=== PATIENT | male | born 2000 | race Caucasian/White ===

== ENCOUNTER 2024-02-11 00:35 | Emergency (ER) | payer MEDICAID, SELFPAY ==
[2024-02-11 00:36] VITALS: BP 155/83; PULSE 87; RESP 16; TEMP 37; O2SAT 98; BMI 26.6
[2024-02-11 00:39] VITALS: BP 155/83; PULSE 68; RESP 16; TEMP 37; O2SAT 98
--- NOTE | 2024-02-11 01:02 | EDS_ITS ---
HPI History of Present Illness Chief Complaint: Nausea/Vomiting Detail of Chief Complaint: Nausea and vomiting for the past couple of days. Informant: patient Onset/Context/Timing Onset: Days Context: Sudden Onset Timing: Intermittent Quality: Nausea and vomiting and diarrhea Location: GI Current Severity: Several episodes since onset Worsened by: Nothing Relieved by: Nothing Associated Symptoms Associated Symptoms: No complaint of abdominal pain. No hematemesis. No black or maroon-colore Narrative Narrative: Patient is a 23-year-old male with end-stage renal disease on hemodialysis, Sunday, Sunday. Because of the holiday weekend he was scheduled to have dialysis on Sunday which he did Sunday and Sunday. He states he had similar presentation when he was first started on dialysis. He denies ill contacts. He denies fever, chills night sweats. He denies thirst, dry mouth orthostatic symptoms. He denies decreased urine output. He reports compliance with his medication. Is on multiple meds. 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 Prior similar symptoms: Yes Recent Illness/Hospitalization: No [facility] Medical History Arteriovenous fistula of right upper extremity Alports syndrome Home Medications ?Medication ?Instructions ?Recorded ?Last Taken ?Type carvedilol 12.5 mg tablet 12.5 mg PO BID 02/11/24 Unknown History cinacalcet 30 mg tablet 30 mg PO QPM 02/11/24 Unknown History lanthanum 1,000 mg oral powder 1,000 mg PO TID 02/11/24 Unknown History packet (Fosrenol) lanthanum 500 mg chewable tablet 500 mg PO TID 02/11/24 Unknown History losartan 100 mg tablet 100 mg PO DAILY 02/11/24 Unknown History ondansetron 4 mg disintegrating 4 mg PO Q8H PRN PRN Nausea #10 tabs 02/11/24 Un known Rx tablet sevelamer carbonate 800 mg tablet 800 mg PO TID 02/11/24 Unknown History vit B,C-folic ac 800 mcg-zinc 12.5 1 tab PO DAILY 02/11/24 Unknown History mg-selen-D3 2,000 unit-vit E tablet (RenaPlex-D) Allergy/AdvReac Type Severity Reaction Status Date / Time No Known Allergies Allergy Verified 02/11/24 00:36 Social History Smoking Status: Light Smoker (<10/day) ROS ROS ED Constitutional Constitutional ED: Denies chills, fever(s), subjective or sweats Eyes Eyes: Denies blurry vision or change in vision ENT ENT ED: Denies ear pain or rhinorrhea Cardiovascular Cardiovascular: Denies chest pain or palpitations Respiratory/Chest Respiratory/Chest: Denies cough, dyspnea or dyspnea on exertion Gastrointestinal Gastrointestinal: Reports diarrhea, nausea and vomiting; Denies abdominal pain, constipation or melena Genitourinary Genitourinary ED: Reports other Details: No decreased urine output ; Denies dysuria, hematuria or urinary frequency Musculoskeletal Musculoskeletal: Denies arthralgias or myalgias Integumentary Denies rash Neurologic Neurologic: Denies weakness Hematologic/Lymphatic Hematologic/Lymphatic: Reports systems reviewed and no addt'l complaints, except as documented EXAM Physical Exam Const Vital Signs: 02/11/24 00:36 02/11/24 00:39 02/11/24 01:12 Temperature 98.6 F 98.6 F Temperature Source Oral Oral Pulse Rate 87 68 Pulse Rate [Lying] 77 Pulse Rate [Sitting (for 1 minute prior to obtaining)] 84 Pulse Rate [Standing (for 1 minute prior to obtaining)] 92 Respiratory Rate 16 16 Blood Pressure 155/83 H 155/83 H Blood Pressure [Lying] 142/95 H Blood Pressure [Sitting (for 1 minute prior to obtaining)] 151/107 H Blood Pressure [Standing (for 1 minute prior to obtaining)] 134/97 H Blood Pressure Mean 107 107 Blood Pressure Mean [Lying] 110 Blood Pressure Mean [Sitting (for 1 minute prior to obtaining)] 121 Blood Pressure Mean [Standing (for 1 minute prior to obtaining)] 109 Pulse Ox 98 98 Oxygen Delivery Method Room Air Room Air 02/11/24 01:39 02/11/24 02:00 Temperature 98.7 F 98.7 F Temperature Source Oral Oral Pulse Rate 82 78 Pulse Rate [Lying] Pulse Rate [Sitting (for 1 minute prior to obtaining)] Pulse Rate [Standing (for 1 minute prior to obtaining)] Respiratory Rate 16 16 Blood Pressure 134/97 H 153/98 H Blood Pressure [Lying] Blood Pressure [Sitting (for 1 minute prior to obtaining)] Blood Pressure [Standing (for 1 minute prior to obtaining)] Blood Pressure Mean 109 116 Blood Pressure Mean [Lying] Blood Pressure Mean [Sitting (for 1 minute prior to obtaining)] Blood Pressure Mean [Standing (for 1 minute prior to obtaining)] Pulse Ox 97 96 Oxygen Delivery Method Room Air Room Air Positive well nourished and well developed Constitutional Narrative: Patient appears pale. Vital signs remarkable for elevated blood pressure. General Appearance ED: well developed, NAD and pallor HEENT Reports moist mucous membranes HEENT Narrative: Head is atraumatic normocephalic. Ears normal. Nares patent. Patient wears corrective lenses. Eyes PERRL and EOMs intact bilaterally General Eye ED: Negative for pale conjunctiva Neck no lymphadenopathy, supple and no JVD Chest Wall inspection of chest normal and palpation of chest normal Resp normal respiratory effort and clear to auscultation bilaterally Cardio regular rate, regular rhythm, S1 normal heart sound, S2 normal heart sound and no murmurs GI normal to inspection, nondistended, normoactive bowel sounds, non-tender, non- distended and no masses; Negative for hepatosplenomegaly Palpation: soft Extremity normal to inspection General Extremety ED: Negative for edema or tenderness General Extremity: Negative for edema Neuro oriented x3 and CN's II-XII intact bilaterally Sensorium / Orientation: alert Psych mental status grossly normal Skin no rashes or lesions noted, no wounds and skin turgor normal General Skin Exam: pallor MDM MDM MDM Narrative Medical decision making narrative: Will obtain BMP to assess potassium, BUN and creatinine and anion gap. CBC to assess H&H since he appears pale. Will obtain urine to assess for ketones and specific gravity. IV Hep-Lock was placed. If he is orthostatic or there is significant abnormalities of electrolytes will treat. Patient was medicated with Zofran for his nausea vomiting. Lab Data Attestation: I reviewed the patient's lab results. Lab results narrative: There are no labs for comparison at [facility]. 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 He recently relocated from [place]. He is mildly anemic with an H&H of 12.2 and 36.3. MCV is slightly elevated. BUN/creatinine are 36 and 7.58 respectively. Glucose is 144 with a normal CO2 anion gap. Accessed [employer]. Patient BUN/creatinine on August 05 was 36 and 7.52. Estimated GFR was 9. Labs: Laboratory Results - last 24 hr 02/11/24 02/11/24 00:40 01:10 WBC 9.2 RBC 3.73 L Hgb 12.2 L Hct 36.3 L MCV 97.3 H MCH 32.7 H MCHC 33.6 RDW Std Deviation 49.5 H RDW Coeff of Mono 13.9 Plt Count 271 MPV 9.7 Immature Gran % (Auto) 0.300 Neut % (Auto) 55.5 Lymph % (Auto) 24.2 [place] % (Auto) 5.2 Eos % (Auto) 14.6 H Baso % (Auto) 0.2 Absolute Neuts (auto) 5.1 Absolute Lymphs (auto) 2.22 Nucleated RBC % 0 Sodium 142 Potassium 4.5 Chloride 100 Carbon Dioxide 32.0 Anion Gap 9 BUN 36 H Creatinine 7.58 H* Estim Creat Clear Calc 15.52 Est GFR (MDRD) Af Amer 11 L Est GFR (MDRD) Non-Af 9 L BUN/Creatinine Ratio 4.7 L Glucose 144 H Calcium 9.2 Urine Color Yellow Urine Clarity Clear Urine pH 8.0 Ur Specific [place] 1.010 Urine Protein 100 H Urine Glucose (UA) 100 H Urine Ketones Negative Urine Occult Blood 150 H Urine Nitrite Negative Urine Bilirubin Negative Urine Urobilinogen Normal Ur Leukocyte Esterase Negative UA is unremarkable. Specifically it is 1.010. There is evidence of proteinuria and glucosuria. There is no ketones. There is occult blood. Treatment and Re-Evaluation :: Reviewed patient's blood work. He was informed of his blood results in comparison to August 05. They are essentially unchanged. He was at [place] at that time. Patient passed p.o. challenge. He was discharged prescription for Zofran. Discharge Plan Triage Chief Complaint: Nausea/Vomiting ED Provider: Serg Lyman Dx/Rx/DC Orders Clinical Impression: Nausea & vomiting, End-stage renal disease on hemodialysis, Elevated blood pressure reading with diagnosis of hypertension, Alport syndrome, Anemia due to chronic illness Instructions: ED Vomiting (Adult) Prescriptions: New ondansetron 4 mg tablet,disintegrating 4 mg PO Q8H PRN PRN (Reason: Nausea) Qty: 10 0RF No Action carvedilol 12.5 mg tablet 12.5 mg PO BID losartan 100 mg tablet 100 mg PO DAILY lanthanum 500 mg tablet,chewable 500 mg PO TID Fosrenol 1,000 mg powder in packet 1,000 mg PO TID RenaPlex-D 800 mcg-12.5 mg -2,000 unit tablet 1 tab PO DAILY cinacalcet 30 mg tablet 30 mg PO QPM sevelamer carbonate 800 mg tablet 800 mg PO TID Primary Care Provider: Care Physician,No Primary Referrals: Care Physician,No Primary [Primary Care Provider] - Doctor,Your [Non-Staff] - As Needed Print Language: Zimbabwean Disposition Disposition: Home, Self Care
[2024-02-11 01:04] LABS: Absolute Lymphocyte Count 2.22 X10^3/uL (0.83-4.51); Absolute Neutrophil Count 5.1 X10^3/uL (2.0-7.7); Basophil# 0.02 X10^3/uL; Basophil% 0.2 % (0-1); Eosinophil# 1.34 X10^3/uL; Eosinophils% 14.6 % (0-5); Hematocrit 36.3 % (40-54); Hemoglobin 12.2 g/dL (13.0-16.5); Lymphocyte # 2.22 X10^3/ul (0.83-4.51); Lymphocyte % 24.2 % (19-41); Mean Corp Hgb Conc 33.6 g/dL (32-36); Mean Corpuscular Hgb 32.7 pg (27.0-32.0); Mean Corpuscular Volume 97.3 fL (80-94); Mean Platelet Vol. 9.7 fl (6.2-12.0); Monocyte# 0.48 X10^3/uL; Monocyte% 5.2 % (0-10); NRBC Flagged by Analyzer 0 % (0-5); Neutrophil % 55.5 % (47-70); Platelet Count 271 K/mm3 (150-450); RBC Distribution Width CV 13.9 % (11.6-14.6); RBC Distribution Width SD 49.5 fl (35.1-43.9); Red Blood Count 3.73 M/mm3 (4.6-6.2); White Blood Count 9.2 K/mm3 (4.4-11.0)
[2024-02-11 01:12] VITALS: BP 134/97; BP 142/95; BP 151/107; PULSE 77; PULSE 84; PULSE 92
[2024-02-11 01:17] LABS: Anion Gap 9 (5-15); BUN 36 mg/dL (7-18); BUN/Creat Ratio 4.7 RATIO (10-20); Calcium,Total 9.2 mg/dL (8.5-10.1); Chloride 100 mmol/L (98-107); Creatinine, Serum 7.58 mg/dL (0.70-1.30); EST Glomerular Filtration Rate 9 mL/min (>60); Est Glom Filt Rate - Afr Amer 11 mL/min (>60); Estimated Creatinine Clearance 15.52 ml/min; Glucose 144 mg/dL (74-106); Potassium 4.5 mmol/L (3.5-5.1); Sodium Level 142 mmol/L (136-145)
[2024-02-11 01:24] LABS: Color, Urine Yellow (Yellow); Glucose, Dipstick 100 mg/dl (Normal); Ketone-Dipstick Negative (Negative); Leukocyte Esterase-Dipstick Negative /ul (Negative); Nitrite-Dipstick Negative (Negative); Occult Blood-Urine 150 /ul (Negative); Protein-Dipstick 100 mg/dl (Negative); Urine Bilirubin Dipstick Negative (Negative); Urine Clarity Clear (Clear); Urine Urobilinogen Normal (Normal)
[2024-02-11] MEDS: Ondansetron 4 MG/2 ML Vial IV (01:36)
[2024-02-11 01:39] VITALS: BP 134/97; PULSE 82; RESP 16; TEMP 37.1; O2SAT 97
[2024-02-11 02:00] VITALS: BP 153/98; PULSE 78; RESP 16; TEMP 37.1; O2SAT 96
[2024-02-11 02:08] VITALS: BP 153/98; PULSE 74; RESP 16; TEMP 36.9; O2SAT 97
== END 2024-02-11 02:17 | disposition home or self-care (01) ==
PROVIDERS: Emergency Provider Emergency Medicine; Visit Provider Emergency Medicine
DX: R11.2 Nausea with vomiting, unspecified (principal); I12.0 Hypertensive chronic kidney disease with stage 5 chronic kidney disease or end stage renal disease; N18.6 End stage renal disease; Z99.2 Dependence on renal dialysis; Q87.81 Alport syndrome; D63.1 Anemia in chronic kidney disease; F17.200 Nicotine dependence, unspecified, uncomplicated; Z79.899 Other long term (current) drug therapy
CPT/HCPCS: 80048; 81002; 85025; 96374; 96376; 99285; A4216; J2405

== ENCOUNTER 2024-10-03 16:39 | Emergency (ER) | payer BC, SELFPAY ==
[2024-10-03 16:39] VITALS: BP 155/102; PULSE 103; RESP 16; TEMP 36.9; O2SAT 97; BMI 25.9
--- NOTE | 2024-10-03 17:41 | CT_ITS ---
PROCEDURE: ABDOMEN/PELVIS WITHOUT CONT 10/03/2024 REASON FOR EXAM: LLQ ABD PAIN TECHNIQUE: ABDOMEN/PELVIS WITHOUT CONT Noncontrast technique limits evaluation of the abdominal and pelvic viscera. Coronal and Sagittal reconstruction series were provided. One or more dose reduction techniques were used (e.g., Automated exposure control, adjustment of the mA and/or kV according to patient size, use of iterative reconstruction technique). RADIATION DOSE SUMMARY: CTDlvol: 7.12 mGy DLP: 391.16 Dr. Kg mGycm FINDINGS: Small right pleural effusion. Normal noncontrast appearance of the liver and spleen. There is bilateral renal atrophy but without hydronephrosis. The gallbladder is unremarkable. Limited evaluation of the pancreas without contrast without adjacent fluid. No dilatation of the large bowel or the small bowel. The appendix is normal. There is no free-fluid or free air. There is no pelvic or retroperitoneal adenopathy. No visible bowel wall thickening. Specific attention is paid to the left lower quadrant. No positive findings of diverticulitis. No hernia. CT/Abdomen/Pelvis without Cont IMPRESSION: No acute abnormality. Reading [facility]
[2024-10-03] MEDS: Albuterol 2.5 MG/3 ML VIAL.NEB. INHALATION (17:47)
[2024-10-03 17:56] VITALS: RESP 16
--- NOTE | 2024-10-03 18:03 | EX.ED.DYSGE1 ---
HPI History of Present Illness Chief Complaint: Abd Pain Informant: patient Narrative Narrative: Patient is a 24-year-old male with history of Alport syndrome subsequent end-stage renal disease on hemodialysis. He is presenting with 1 week of cough, myalgia, cramping as well as of vomiting. Patient states his symptoms started on Sunday, 3 days ago. He notes he is also developed itching rash on his extremities. He states that he has not been feeling well and has not been able to tolerate dialysis recently states been shortening his sessions. He did receive a dose of Zofran prior to his dialysis today but could not make it through a full session. He notes he did have labs on Sunday and brought them with him. States today he did have an episode of vomiting before his dialysis. He notes that he has crampy abdominal pain especially in the LLQ. This week he has had worsening cough. States the cough is minimally productive today of pink phlegm. [facility] Medical History Dialysis patient Arteriovenous fistula of right upper extremity Alports syndrome Home Medications ?Medication ?Instructions ?Recorded ?Last Taken ?Type carvedilol 12.5 mg tablet 12.5 mg PO BID 02/11/24 Unknown History cinacalcet 30 mg tablet 30 mg PO QPM 02/11/24 Unknown History losartan 100 mg tablet 100 mg PO DAILY 02/11/24 Unknown History ondansetron 4 mg disintegrating 4 mg PO Q8H PRN PRN Nausea #10 tabs 02/11/24 Unknown Rx tablet sevelamer carbonate 800 mg tablet 800 mg PO TID 02/11/24 Unknown History vit B,C-folic ac 800 mcg-zinc 12.5 1 tab PO DAILY 02/11/24 Unknown History mg-selen-D3 2,000 unit-vit E tablet (RenaPlex-D) albuterol sulfate 90 mcg/actuation 1 - 2 puff inhalation Q4H PRN PRN 10/03/24 Unknown Rx aerosol inhaler (Ventolin HFA) Wheezing #1 inh azithromycin 250 mg tablet See Rx Instructions PO .COMPLEX #6 10/03/24 Unknown Rx (Zithromax Z-Selwyn) tabs lanthanum 1,000 mg chewable tablet 1,000 mg PO TID 10/03/24 Unknown History prednisone 20 mg tablet 40 mg (2 x 20 mg) PO DAILY #10 tabs 10/03/24 Unknown Rx Allergy/AdvReac Type Severity Reaction Status Date / Time No Known Allergies Allergy Verified 10/03/24 16:39 Social History Smoking Status: Former smoker ROS ROS ED Constitutional Constitutional ED: Denies chills or fever(s) Eyes Eyes: Denies change in vision ENT ENT ED: Denies rhinorrhea or sore throat Cardiovascular Cardiovascular: Denies chest pain Respiratory/Chest Respiratory/Chest: Reports cough, dyspnea and sputum Gastrointestinal Gastrointestinal: Reports abdominal pain, nausea and vomiting; Denies constipation or diarrhea Genitourinary Genitourinary ED: Denies dysuria or urinary frequency Musculoskeletal Musculoskeletal: Reports myalgias; Denies arthralgias Integumentary Denies rash Neurologic Neurologic: Denies weakness Psychiatric Psychiatric: Denies anxiety Hematologic/Lymphatic Hematologic/Lymphatic: Denies easy bleeding or easy bruising EXAM Physical Exam Const Vital Signs: 10/03/24 16:39 10/03/24 17:56 10/03/24 18:39 Temperature 98.4 F Temperature Source Oral Pulse Rate 103 H 101 H Respiratory Rate 16 16 18 Respiratory Pattern Normal Blood Pressure 155/102 H 158/108 H Blood Pressure Mean 119 124 Pulse Ox 97 95 Oxygen Delivery Method Room Air Room Air 10/03/24 20:00 10/03/24 21:55 Temperature 98.1 F Temperature Source Pulse Rate 102 H 98 Respiratory Rate 29 H 17 Respiratory Pattern Blood Pressure 145/103 H 159/97 H Blood Pressure Mean 117 117 Pulse Ox 95 99 Oxygen Delivery Method Room Air Positive well nourished and well developed General Appearance ED: well developed and NAD HEENT Reports moist mucous membranes Eyes PERRL Neck supple and no JVD Chest Wall inspection of chest normal and palpation of chest normal Resp normal respiratory effort Resp Narrative: Coarse bronchial cough on exam. No crackles appreciated. No wheezing or rales appreciated. Mildly coarse breath sounds present. Cardio regular rate, regular rhythm and no murmurs GI normal to inspection, nondistended, normoactive bowel sounds GI Narrative: Mildly tender in the left lower quadrant. No hernia palpated. Palpation: soft; Negative for guarding Back/Spine no CVA tenderness Extremity normal to inspection Extremity Narrative: AV fistula with palpable thrill in the right upper extremity General Extremety ED: Negative for edema General Extremity: Negative for edema Neuro oriented x3 Sensorium / Orientation: alert Psych mental status grossly normal Skin no wounds Skin Narrative: Mildly raised erythematous scattered rash on upper extremities associated excoriations/ulcerations consistent with scratching/picking. No surrounding cellulitic changes MDM MDM MDM Narrative Medical decision making narrative: Patient is evaluated for cramping, abdominal pain, vomiting and cough at dialysis. States has been going on for at least a week but states over the last month he has had to shorten multiple dialysis sessions because of the symptoms. Did have dialysis today but was unable to complete it. On exam he has very bronchial cough concerning for possible pneumonia versus bronchitis. Clinically does not appear fluid overloaded. Differential includes electrolyte abnormality, symptomatic anemia, infection, pneumonia, pleural effusion, diverticulitis, urinary tract infection, abdominal hernia, arrhythmia,Calciphylaxis and prurigo. Patient is given a breathing treatment emergency room with some symptom relief. He is given IV Zofran. Ice and complaint of headache and is given Tylenol. He is having meningeal signs. He does start to complain of some increased anxiety and headache and is given IV haloperidol. Afterwards patient becomes quite anxious and states he feels worse. He states he feels that he needs to leave. I discussed I am concerned he could be having extrapyramidal reaction associated with this and offer him IV Benadryl. He states he will take oral Benadryl but really wants to leave. Counseled that he can continue to take Benadryl at home every 6 hours for this continued symptom. He is ambulated in the emergency room does not desaturate. His workup is consistent with end-stage renal disease with associated anemia with a hemoglobin of 8.9. I suspect this is chronic. I do not have any labs this year to compare to. His phosphorus is mildly elevated but he does not have any elevation of his potassium and is not clinically fluid overloaded. Chest x-ray does show cardiomegaly and question pulmonary vascular congestion however there is also mild bilateral hazy perihilar airspace opacities and given his bronchial cough I suspect this is more viral versus bacterial. Will start him on steroids, azithromycin and given an inhaler. 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 CT of his abdomen and pelvis does not show any acute process of his abdomen. I question if he could have pulled a muscle or muscle strain associated with his coughing. He does state this is possible. Given return precautions to the ER to be develops a fever, his worsening respiratory symptoms or further concerns he is more than welcome and encouraged to return. Lab Data Attestation: I reviewed the patient's lab results. Labs: Laboratory Results - last 24 hr 10/03/24 10/03/24 17:55 18:12 WBC 7.9 RBC 2.86 L Hgb 8.9 L Hct 27.0 L MCV 94.4 H MCH 31.1 MCHC 33.0 RDW Std Deviation 50.8 H RDW Coeff of Mono 14.9 H Plt Count 198 MPV 9.5 Immature Gran % (Auto) 0.500 Neut % (Auto) 67.8 Lymph % (Auto) 20.7 [place] % (Auto) 5.2 Eos % (Auto) 5.5 H Baso % (Auto) 0.3 Absolute Neuts (auto) 5.4 Absolute Lymphs (auto) 1.64 Nucleated RBC % 0 PT 12.8 INR 0.9 APTT 30.9 Sodium 138 Potassium 4.2 Chloride 95 L Carbon Dioxide 31.5 Anion Gap 11 BUN 12 Creatinine 5.84 H Estim Creat Clear Calc 19.97 L Est GFR (MDRD) Non-Af 13 L BUN/Creatinine Ratio 2.0 L Glucose 92 Calcium 9.1 Phosphorus 5.1 H Albumin 3.9 Urine Color Yellow Urine Clarity Clear Urine pH 8.0 Ur Specific [place] 1.015 Urine Protein 100 H Urine Glucose (UA) 100 H Urine Ketones Negative Urine Occult Blood 50 H Urine Nitrite Negative Urine Bilirubin Negative Urine Urobilinogen Normal Ur Leukocyte Esterase Negative Urine RBC 0-5 SEEN Urine WBC 0 SEEN Ur Squamous Epith Cells 0 SEEN Urine Bacteria 0 SEEN Urine Mucus 0 SEEN Radiography Chest X-Ray - ED: 2 View, Read by ED Physician and Read by Radiologist Diagnostic Testing: Clinical Impression(s) from Imaging Studies Abdomen/Pelvis CT 10/03/24 17:41 IMPRESSION: No acute abnormality. Reading Location: [facility] Chest X-Ray 10/03/24 18:15 IMPRESSION: Cardiomegaly and vascular congestion. Mild bilateral hazy perihilar airspace opacities favored to reflect cardiogenic alveolar edema. Reading Location: [facility] Rhythm Strip Rhythm Strip: Sinus Rhythm Rate: 96 Ectopy: None EKG Initial EKG: Attestation: I personally reviewed and interpreted this EKG as follows: Interpretation: Sinus Rhythm Comments: Normal sinus rhythm at a rate of 96 bpm Normal axis Normal intervals Nonspecific T wave inversion in inferior leads as well as V6 Prior EKG tracings: not available for review Prior: No Prior Discharge Plan Triage Chief Complaint: Abd Pain ED Provider: Josette Herron Dx/Rx/DC Orders Clinical Impression: Bronchitis, Nausea and vomiting, Abdominal pain, LLQ Instructions: ED Bronchitis with Wheezing (Adult), ED Diet Vomiting Diarrhea, ED Abdominal Pain Unkn Cause Male... Prescriptions: New azithromycin [Zithromax Z-Selwyn] 250 mg tablet See Rx Instructions .ROUTE .COMPLEX Qty: 6 0RF Rx Instructions: For 250 mg dose pack: take 500 mg today (day 1), then 250 mg for 4 days (days 2-5) albuterol sulfate [Ventolin HFA] 90 mcg/actuation HFA aerosol inhaler 1 - 2 puff inhalation Q4H PRN PRN (Reason: Wheezing) Qty: 1 0RF prednisone 20 mg tablet 40 mg PO DAILY Qty: 10 0RF No Action carvedilol 12.5 mg tablet 12.5 mg PO BID losartan 100 mg tablet 100 mg PO DAILY RenaPlex-D 800 mcg-12.5 mg -2,000 unit tablet 1 tab PO DAILY cinacalcet 30 mg tablet 30 mg PO QPM sevelamer carbonate 800 mg tablet 800 mg PO TID ondansetron 4 mg tablet,disintegrating 4 mg PO Q8H PRN PRN (Reason: Nausea) Qty: 10 0RF lanthanum 1,000 mg tablet,chewable 1,000 mg PO TID Primary Care Provider: Care Physician,No Primary Referrals: Windy Higuera MD [Med Staff - Consulting] - Care Physician,No Primary [Primary Care Provider] - Activity Restrictions/Additional Instructions: Please follow-up with your primary care doctor as well as your sock lining examiner. Your exam today was consistent with bronchitis. You been put on steroids, antibiotics and given an inhaler prescription for this. Your CT of the abdomen did not show any acute abnormality to explain your pain. Print Language: Sinhala Disposition Disposition: Home, Self Care Discharge Date/Time: 10/03/24 21:56
[2024-10-03 18:08] LABS: Hematocrit 27.0 % (40-54); Hemoglobin 8.9 g/dL (13.0-16.5); Immature Granulocytes Count 0.040 X10^3/uL (0.0-0.0); Mean Corp Hgb Conc 33.0 g/dL (32-36); Mean Corpuscular Volume 94.4 fL (80-94); Mean Platelet Vol. 9.5 fl (6.2-12.0); NRBC Flagged by Analyzer 0 % (0-5); Platelet Count 198 K/mm3 (150-450); RBC Distribution Width CV 14.9 % (11.6-14.6); RBC Distribution Width SD 50.8 fl (35.1-43.9); Red Blood Count 2.86 M/mm3 (4.6-6.2); White Blood Count 7.9 K/mm3 (4.4-11.0)
--- NOTE | 2024-10-03 18:15 | RAD_ITS ---
PROCEDURE: CHEST PA AND LATERAL 10/03/2024 REASON FOR EXAM: COUGH TECHNIQUE: CHEST PA AND LATERAL COMPARISON: None. FINDINGS: Lungs/Pleura: Mild hazy opacities in the right greater than left perihilar regions may represent pneumonia, versus alveolar edema in the appropriate clinical setting. No sizable pleural effusion. No pneumothorax. Heart/Mediastinum: Mild cardiomegaly and central vascular congestion. Bones/Soft tissues: Within normal limits. RAD/Chest PA and Lateral IMPRESSION: Cardiomegaly and vascular congestion. Mild bilateral hazy perihilar airspace o pacities favored to reflect cardiogenic alveolar edema. Reading Location: [id number]
[2024-10-03 18:16] LABS: Prothrombin Time (Protime)PT. 12.8 SECONDS (11.7-14.9)
[2024-10-03 18:17] LABS: Partial Thromboplast Time 30.9 Seconds (24.1-36.2)
[2024-10-03 18:17] LABS: Mucous, Urine 0 SEEN /hpf (<or=2+); Squamous Epithelial Cells - UA 0 SEEN /hpf (0-5)
[2024-10-03 18:20] LABS: Color, Urine Yellow (Yellow); Glucose, Dipstick 100 mg/dl (Normal); Ketone-Dipstick Negative (Negative); Leukocyte Esterase-Dipstick Negative /ul (Negative); Nitrite-Dipstick Negative (Negative); Occult Blood-Urine 50 /ul (Negative); Protein-Dipstick 100 mg/dl (Negative); Specific Gravity, Urine 1.015 (1.002-1.030); Urine Bilirubin Dipstick Negative (Negative)
[2024-10-03 18:27] LABS: Red Blood Cells-Urine 0-5 SEEN /hpf (0-5)
[2024-10-03 18:39] VITALS: BP 158/108; PULSE 101; RESP 18; O2SAT 95
[2024-10-03 18:57] LABS: Albumin, Serum 3.9 g/dL (3.5-5.0); Anion Gap 11 (5-15); BUN 12 mg/dL (4-19); BUN/Creat Ratio 2.0 RATIO (10-20); Calcium,Total 9.1 mg/dL (7.6-11.0); Carbon Dioxide 31.5 mmol/L (21.0-32.0); Chloride 95 mmol/L (98-108); Estimated Creatinine Clearance 19.97 ml/min (50-250); Glucose 92 mg/dL (70-99); Potassium 4.2 mmol/L (3.3-5.1)
[2024-10-03 20:00] VITALS: BP 145/103; PULSE 102; RESP 29; O2SAT 95
[2024-10-03 21:08] VITALS: O2SAT 95
--- NOTE | 2024-10-03 21:43 | CM.ED ---
Social work Reason for referral: no PCP Referral source: case find SW identified patient's lack of PCP and need for resources. SW entered patient's room, introducing self and role at [facility]. Patient confirmed lacking a PCP and accepted resources of [facility] Provider Directory and Candelaria Roberto information. Patient denied further need for resources at this time. Hanh Payne, HUMAN RESOURCES COMPENSATION ANALYST, FACILITIES SPECIALIST
[2024-10-03 21:55] VITALS: BP 159/97; PULSE 98; RESP 17; TEMP 36.7; O2SAT 99
== END 2024-10-03 21:56 | disposition home or self-care (01) ==
PROVIDERS: Emergency Provider Emergency Medicine; Visit Provider Emergency Medicine
DX: J40 Bronchitis, not specified as acute or chronic (principal); N18.6 End stage renal disease; R10.32 Left lower quadrant pain; R11.2 Nausea with vomiting, unspecified; F41.9 Anxiety disorder, unspecified; Z99.2 Dependence on renal dialysis; Z79.899 Other long term (current) drug therapy; Z87.891 Personal history of nicotine dependence
CPT/HCPCS: 71046; 74176; 80069; 81001; 85025; 85610; 85730; 87631; 93005; 94640; 96374; 96375; 96376; 99282; A4216; J2405

== ENCOUNTER 2024-10-13 08:14 | Observation (INO) | payer BC, SELFPAY ==
[2024-10-13] VITALS (19 sets, daily range): BP systolic 145–200; BP diastolic 89–135; PULSE 22–113; RESP 14–117; TEMP 36.4–37.2; O2SAT 91–100; BMI 25.4; BMI 25.8; BMI 25.7; BMI 25.3
--- NOTE | 2024-10-13 08:20 | ED.VIS.DYS ---
HPI History of Present Illness Chief Complaint: Shortness of Breath Informant: patient Onset/Context/Timing Onset: Days (10) Context: gradual Timing: Continuous Quality: Positive for Dyspnea on exertion Worsened by: Exertion Relieved by: Rest Associated Symptoms cough; Negative for rhinorrhea, post nasal drip, ear pain, fever, sore throat, chills, clear sputum, white sputum, yellow sputum or green sputum Chest Pain: Positive for Sharp (Left lower parasternal area) Narrative Narrative: Patient presents with shortness of breath that has been constant for the past 10 days. Patient was seen here at that time and was diagnosed with pneumonia. Patient states she was put on a course of steroids, and inhaler, and another medication. Patient states he completed his course of steroids. Patient also states he finished the other medication. Patient admits to a cough. Patient states he is coughing up some orange sputum. Patient denies any fevers or chills. Patient admits to some pain over his left parasternal area. Patient describes it as sharp. Patient denies any nausea or vomiting. Patient denies any fevers or chills. Patient states he does dialysis on Sunday, Sunday, and Sunday. Patient did not go to dialysis today because he felt more short of breath. Patient states his breathing is worse with any exertion. Patient states he has difficulty going up steps. Patient has not taken any of his medications today. Patient states he normally takes his blood pressure medicines prior to going to dialysis. PE Risk Factors: Negative for Cancer, OCP + Smoking + > 35, Prior DVT or PE, Recent immobilization, Recent surgery or Recent travel [facility] Medical History (Updated 10/13/24 @ 12:[address] Arley Kirby, DO) Hypertension Dialysis patient Arteriovenous fistula of right upper extremity Alports syndrome Home Medications ?Medication ?Instructions ?Recorded ?Last Taken ?Type carvedilol 12.5 mg tablet 12.5 mg PO BID 02/11/24 10/12/24 History cinacalcet 30 mg tablet 30 mg PO QPM 02/11/24 Unknown History losartan 100 mg tablet 100 mg PO DAILY 02/11/24 10/12/24 History sevelamer carbonate 800 mg tablet 800 mg PO TID 02/11/24 10/12/24 History vit B,C-folic ac 800 mcg-zinc 12.5 1 tab PO DAILY 02/11/24 10/12/24 History mg-selen-D3 2,000 unit-vit E tablet (RenaPlex-D) albuterol sulfate 90 mcg/actuation 1 - 2 puff inhalation Q4H PRN PRN 10/03/24 Unknown Rx aerosol inhaler (Ventolin HFA) Wheezing #1 inh lanthanum 1,000 mg chewable tablet 1,000 mg PO TID 10/03/24 10/12/24 History Allergy/AdvReac Type Severity Reaction Status Date / Time No Known Allergies Allergy Verified 10/13/24 08:14 Social History Smoking Status: Former smoker ROS ROS ED Constitutional Constitutional ED: Denies chills or fever(s) Eyes Eyes: Denies blurry vision or change in vision ENT ENT ED: Denies rhinorrhea or sore throat Cardiovascular Cardiovascular: Reports chest pain; Denies palpitations Respiratory/Chest Respiratory/Chest: Reports cough and dyspnea Gastrointestinal Gastrointestinal: Reports abdominal pain, nausea and vomiting Genitourinary Genitourinary ED: Denies dysuria or hematuria Musculoskeletal Musculoskeletal: Denies back pain or neck pain Integumentary Denies abscess or rash Neurologic Neurologic: Denies headache(s) or weakness Allergic/Immunologic Allergic/Immunologic ED: Denies mouth swelling or urticaria EXAM Physical Exam Const Vital Signs: 10/13/24 08:14 10/13/24 08:16 10/13/24 08:32 Temperature 98.7 F 98.7 F Temperature Source Oral Temporal Pulse Rate 22 L 110 H Respiratory Rate 117 H 16 Respiratory Effort Short of Breath Respiratory Depth Shallow Blood Pressure 200/134 H 191/131 H Blood Pressure Mean 156 151 Pulse Ox 95 98 Oxygen Delivery Method Room Air Room Air Room Air 10/13/24 09:16 10/13/24 10:14 10/13/24 12:00 Temperature 98.4 F Temperature Source Oral Pulse Rate 98 100 101 H Respiratory Rate 18 23 H 21 H Respiratory Effort Respiratory Depth Blood Pressure 166/89 H 161/122 H 166/111 H Blood Pressure Mean 114 135 129 Pulse Ox 96 93 100 Oxygen Delivery Method Room Air Room Air Room Air Positive well nourished and well developed General Appearance ED: well developed and NAD HEENT Reports moist mucous membranes atraumatic Neck supple and no JVD Resp normal respiratory effort and clear to auscultation bilaterally Cardio regular rate and regular rhythm GI non-distended Palpation: soft and tender epigastric and LUQ Neuro oriented x3, CN's II-XII intact bilaterally and no sensory deficits noted Niyah Coma Scale: document GCS findings Spontaneous Obeys Commands Oriented 15 Sensorium / Orientation: alert Motor Exam: strength 5/5 throughout Psych mental status grossly normal MDM MDM MDM Narrative Medical decision making narrative: Differential diagnosis includes congestive heart failure, pneumonia, bronchitis, acute on chronic kidney disease, electrolyte abnormality, hypertensive urgency, and anxiety. EKG will be obtained to assess for cardiac dysrhythmia and cardiac ischemia. Chest x-ray will be obtained to assess for pneumonia and bronchitis. CBC will be obtained to assess for leukocytosis and anemia. Basic metabolic profile will be obtained to assess for electrolyte abnormality and renal function. BNP will be obtained to assess for congestive heart failure. History & Record Review Additional record(s) reviewed:: Prior ED visit and Prior labs Lab Data Attestation: I reviewed the patient's lab results. Lab results narrative: CBC was reviewed. There is a mild anemia with a hemoglobin of 5.4 and hematocrit of 29.2. The remainder is within normal limits. Basic metabolic profile was reviewed. BUN was 38 and creatinine was 12.5. These are improved from previous result. CO2 was normal at 24.4 but anion gap was slightly elevated at 19. [place] [address]. Labs: Laboratory Results - last 24 hr 10/13/24 08:50 WBC 8.4 RBC 2.94 L Hgb 9.4 L Hct 29.2 L MCV 99.3 H MCH 32.0 MCHC 32.2 RDW Std Deviation 58.7 H RDW Coeff of Mono 16.3 H Plt Count 252 MPV 9.3 Immature Gran % (Auto) 0.400 Neut % (Auto) 67.9 Lymph % (Auto) 20.8 Bremer % (Auto) 5.8 Eos % (Auto) 4.9 Baso % (Auto) 0.2 Absolute Neuts (auto) 5.7 Absolute Lymphs (auto) 1.75 Nucleated RBC % 0 Sodium 140 Potassium 5.0 Chloride 96 L Carbon Dioxide 24.4 Anion Gap 19 H BUN 38 H Creatinine 12.50 H* Estim Creat Clear Calc 9.33 L* Est GFR (MDRD) Non-Af 5 L BUN/Creatinine Ratio 3.0 L Glucose 98 Calcium 9.9 [place] [address] H Radiography Chest X-Ray - ED: 2 View, Read by ED Physician, Read by Radiologist, Cardiomegaly (Borderline) and - (Mild vascular congestion) Diagnostic Testing: Clinical Impression(s) from Imaging Studies Chest X-Ray 10/13/24 08:32 IMPRESSION: Borderline cardiomegaly. Mild degree of vascular congestion and CHF. Reading Location: [id number] PA and lateral chest x-ray was obtained. There are 2 views. On my independent interpretation, lung olmedo show mild vascular congestion. There is borderline cardiomegaly. Bony thorax is normal. There is no acute process noted. Radiologist also interpreted the x-ray and agrees. EKG Initial EKG: Attestation: I personally reviewed and interpreted this EKG as follows: Interpretation: Sinus Rhythm (99) and No Acute Injury Pattern Comments: EKG was obtained. On my independent interpretation, it showed a normal sinus rhythm with a rate of 99. HI interval, QRS interval, and QTc intervals were all normal. Melbeta was normal. There are no acute ST or T wave changes. Prior EKG tracings: available for review Prior: Unchanged (10/03/2024) Management Discussion w/another healthcare provider: Hospitalist (Dr. Birmingham) Treatment and Re-Evaluation :: Patient was given a dose of labetalol here. Patient was also given his morning dose of losartan. Patient's blood pressure improved to 161/122. Patient was resting comfortably. Patient was ambulated in the emergency department on room air. Patient's oxygen saturation dropped to 85% with ambulation. Patient was advised of his findings. Case was discussed with guardian family member who is covering for Dr. Higuera. He contacted the nephrology nurse practitioner who was in to evaluate the patient. She states that if the patient were to be admitted, dialysis would be able to be done today. But if the patient were to be discharged, he would have his dialysis done at the dialysis center tomorrow. With the patient's oxygen saturation dropping with ambulation, I did recommend admission to the hospital. Case was discussed with the hospitalist. She will admit the patient for observation. Patient is agreeable with this. Patient understood and was agreeable with the plan. All questions were answered. Discharge Plan Dx/Rx/DC Orders Clinical Impression: Acute kidney injury superimposed on chronic kidney disease, Hypertension, Hypoxia Disposition Disposition: Acute Care Hospital [facility], [place]
--- NOTE | 2024-10-13 08:32 | RAD_ITS ---
PROCEDURE: CHEST PA AND LATERAL 10/13/2024 REASON FOR EXAM: DYSPNEA TECHNIQUE: CHEST PA AND LATERAL COMPARISON: Prior study dated October 03, 2024. FINDINGS: Hardware: EKG electrodes are seen. Heart: Borderline cardiomegaly. Mediastinum: Unremarkable Lungs: Mild degree of vascular congestion and CHF. Bones: Unremarkable RAD/Chest PA and Lateral IMPRESSION: Borderline cardiomegaly. Mild degree of vascular congestion and CHF. Reading Location: [id number]
--- NOTE | 2024-10-13 08:32 | EKG12_ITS ---
Test Reason : SOB Blood Pressure : */* mmHG Vent. Rate : 99 BPM Atrial Rate : 99 BPM P-R Int : 142 ms QRS Dur : 82 ms QT Int : 360 ms P-R-T Axes : 55 67 96 degrees QTcB Int : 462 ms Normal sinus rhythm Normal ECG Confirmed by ROD PEREIRA, BRIAN ([id number]), dictionary editor TERRA HOOKS ([id number]) on 10/14/2024 1:00:49 PM Referred By: Confirmed By: BRIAN VELASCO MD
[2024-10-13 08:58] LABS: Hematocrit 29.2 % (40-54); Hemoglobin 9.4 g/dL (13.0-16.5); Immature Granulocytes Count 0.030 X10^3/uL (0.0-0.0); Mean Corp Hgb Conc 32.2 g/dL (32-36); Mean Corpuscular Volume 99.3 fL (80-94); Mean Platelet Vol. 9.3 fl (6.2-12.0); NRBC Flagged by Analyzer 0 % (0-5); Platelet Count 252 K/mm3 (150-450); RBC Distribution Width CV 16.3 % (11.6-14.6); RBC Distribution Width SD 58.7 fl (35.1-43.9); Red Blood Count 2.94 M/mm3 (4.6-6.2); White Blood Count 8.4 K/mm3 (4.4-11.0)
[2024-10-13 09:55] LABS: Anion Gap 19 (5-15); BUN 38 mg/dL (4-19); BUN/Creat Ratio 3.0 RATIO (10-20); Calcium,Total 9.9 mg/dL (7.6-11.0); Carbon Dioxide 24.4 mmol/L (21.0-32.0); Chloride 96 mmol/L (98-108); Estimated Creatinine Clearance 9.33 ml/min (50-250); Glucose 98 mg/dL (70-99); Potassium 5.0 mmol/L (3.3-5.1)
[2024-10-13 09:58] LABS: Pro- Brain NATRIURETIC PEPTIDE 44433 pg/mL (<=450)
[2024-10-13] MEDS: hydrOXYzine PAM 25 MG Capsule PO (10:40)
--- NOTE | 2024-10-13 12:20 | PCM.HP.STD ---
HPI - General General Date of Admission: 10/13/24 Date of Service: 10/13/24 Chief Complaint: Shortness of breath HPI Narrative OMA DOYLE, is a 24 M who presented to the emergency department at [facility] on 10/05/2024 complaining of shortness of breath. Patient has history of Alport syndrome and has end-stage renal disease currently on dialysis. He started dialysis about 2 years ago and up until last couple months he was tolerating dialysis well. He states currently he is getting nauseated at the end of his sessions. His last dialysis was Sunday and he ran all the last 10 minutes. He was seen in the emergency department on 10/03/2024 and diagnosed with bronchitis. At that time he was given a Z-Selwyn, albuterol, and a prednisone taper. He states he still has a cough. He said no fever or chills. His white count and differential was normal been as it is now. He states that his blood pressure is always fairly elevated despite compliance with his home blood pressure medicines. He states he is symptomatic if his blood pressure starts to drop below 130 systolic. He follows with Dr. Higuera as an outpatient. Vital signs on presentation showed temperature 98.7, heart rate 110, blood pressure 191/131, respiratory rate 16-23 and pulse ox was 93 to 98% on room air at rest however he desatted with exertion into the low 80s. Given that exertional desat admission was felt to be needed as he was not able to have outpatient dialysis today and would have to defer to tomorrow. CBC shows a chronic stable anemia but was otherwise unremarkable with a normal white count and differential. His chemistry panel showed markedly elevated anion gap at 19 BUN of 38 and a serum creatinine of 12.50. BNP was obtained and was 44,433. CXR is consistent with volume overload. Case was discussed by ED with Nephrology and the plan is for urgent HD today. [facility] Medical History (Updated 10/13/24 @ 16:[address] Bing Birmingham DO) Chronic anemia AV fistula Kidney disease Former smoker Hypertension Dialysis patient Arteriovenous fistula of right upper extremity Alports syndrome Home Medications ?Medication ?Instructions ?Recorded ?Last Taken ?Type carvedilol 12.5 mg tablet 12.5 mg PO BID 02/11/24 10/12/24 History cinacalcet 30 mg tablet 30 mg PO QPM 02/11/24 Unknown History losartan 100 mg tablet 100 mg PO DAILY 02/11/24 10/12/24 History sevelamer carbonate 800 mg tablet 800 mg PO TID 02/11/24 10/12/24 History vit B,C-folic ac 800 mcg-zinc 12.5 1 tab PO DAILY 02/11/24 10/12/24 History mg-selen-D3 2,000 unit-vit E tablet (RenaPlex-D) albuterol sulfate 90 mcg/actuation 1 - 2 puff inhalation Q4H PRN PRN 10/03/24 Unknown Rx aerosol inhaler (Ventolin HFA) Wheezing #1 inh lanthanum 1,000 mg chewable tablet 1,000 mg PO TID 10/03/24 10/12/24 History Allergy/AdvReac Type Severity Reaction Status Date / Time No Known Allergies Allergy Verified 10/13/24 08:14 Family History no significant family his no significant family history Surgical History no surgical history no surgical history Social History (Updated 10/13/24 @ 16:[address] Bing Birmingham, DO) household members: family housing: house Smoking Status: Former smoker alcohol intake: never substance use type: does not use ROS Constitutional Constitutional: Denies anorexia, change in weight, chills, fatigue, fever(s), malaise, night sweats, weakness or other Eyes Eyes: Denies blurry vision, change in eye color, change in vision, discharge from eye(s), double vision, erythema, eye pain, loss of vision or other ENT HEENT: Denies abnormal hearing, dysphagia, ear pain, epistaxis, headache(s), hearing loss, nasal congestion, nasal discharge, post nasal drip, sinus pressure, sore throat or other Cardiovascular Cardiovascular: Denies chest pain, claudication, dyspnea on exertion, edema, lightheadedness, orthopnea, palpitations, paroxysmal nocturnal dyspnea, rapid heart rate, syncope or other Respiratory/Chest Respiratory/Chest: Reports cough, dyspnea, productive cough, shortness of breath at rest and shortness of breath with exertion Gastrointestinal Gastrointestinal: Reports nausea; Denies abdominal pain, coffee ground emesis, constipation, diarrhea, dyspepsia, hematemesis, hematochezia, loose stools, melena, vomiting or other Genitourinary Genitourinary: Denies burning urination, difficulty urinating, dysuria, hematuria, nocturia, urinary frequency, urinary hesitancy, urinary incontinence, urinary urgency or other Musculoskeletal Musculoskeletal: Denies arthralgias, back pain, joint pain, joint stiffness, joint swelling, myalgias, neck pain or other Neurologic Neurologic: Denies abnormal gait, abnormal speech, confusion, disequilibrium, dizziness, focal weakness, headache(s), numbness, paresthesias, seizure-like activity, seizures, syncope, tingling, tremor(s) or other Psychiatric Psychiatric: Denies anxiety, depression, homicidal ideation, suicidal ideation or other Endocrine Endocrinology: Denies change in body appearance, cold intolerance, excessive sweating, heat intolerance, polydipsia, polyuria or other Hematologic/Lymphatic Hematologic/Lymphatic: Reports anemia; Denies easy bleeding, easy bruising, lymphadenopathy or other Allergic/Immunologic Allergic/Immunologic: Denies rhinitis, hives, eczemia, asthma or other Vital Signs Vital Signs Vital Signs: 10/13/24 08:14 10/13/24 08:16 10/13/24 08:32 Temperature 98.7 F 98.7 F Temperature Source Oral Temporal Pulse Rate 22 L 110 H Respiratory Rate 117 H 16 Respiratory Effort Short of Breath Respiratory Depth Shallow Blood Pressure 200/134 H 191/131 H Blood Pressure Mean 156 151 Pulse Ox 95 98 Oxygen Delivery Method Room Air Room Air Room Air 10/13/24 09:16 10/13/24 10:14 10/13/24 12:00 Temperature 98.4 F Temperature Source Oral Pulse Rate 98 100 101 H Respiratory Rate 18 23 H 21 H Respiratory Effort Respiratory Depth Blood Pressure 166/89 H 161/122 H 166/111 H Blood Pressure Mean 114 135 129 Pulse Ox 96 93 100 Oxygen Delivery Method Room Air Room Air Room Air Weight Weight: 80.5 kg Body Mass Index (BMI) 25.4 Physical Exam Const alert, oriented x3, no apparent distress, average body habitus and well nourished; Negative for healthy appearing Constitutional Narrative: Young, white male, sitting up in bed on dialysis, dialysis nurse at bedside, floor nurse at bedside, patient appears comfortable currently, does not appear toxic General Appearance: cooperative HEENT normocephalic, head/scalp atraumatic and moist oral mucous membranes HEENT Narrative: Mallampati 2, no thrush Eyes Eyes Narrative: Mildly pale conjunctiva bilaterally, no scleral icterus Neck supple Neck Narrative: Trachea midline Resp no retractions, no use of accessory muscles and No clear to auscultation bilaterally Resp Narrative: Mild tachypnea, bibasilar crackles Auscultation: crackles; Negative for rhonchi or wheezes Cardio regular rhythm, S1 normal heart sound, S2 normal heart sound, no murmurs, no rub and no clicks; Negative for no gallops Cardio Narrative: Tachycardia, S4 gallop GI normal to inspection, nondistended, normoactive bowel sounds, soft to palpation and non-tender Extremity no clubbing, cyanosis or edema Extremity Narrative: Fistula currently accessed on HD Neuro oriented x3, moves all extremities and no focal motor deficits Speech: speech normal Psych Psych Narrative: Affect is slightly flat but appropriate for current condition, patient makes good eye contact and interacts appropriately Results Lab / Micro Data 10/13/24 08:50 10/13/24 08:50 Labs: Laboratory Results - last 24 hr 10/13/24 08:50: WBC 8.4, RBC 2.94 L, Hgb 9.4 L, Hct 29.2 L, MCV 99.3 H, MCH 32.0, MCHC 32.2, RDW Std Deviation 58.7 H, RDW Coeff of Mono 16.3 H, Plt Count 252, MPV 9.3, Immature Gran % (Auto) 0.400, Neut % (Auto) 67.9, Lymph % (Auto) 20.8, Taliaferro % (Auto) 5.8, Eos % (Auto) 4.9, Baso % (Auto) 0.2, Absolute Neuts (auto) 5.7, Absolute Lymphs (auto) 1.75, Nucleated RBC % 0, Sodium 140, Potassium 5.0, Chloride 96 L, Carbon Dioxide 24.4, Anion Gap 19 H, BUN 38 H, Creatinine 12.50 H*, Estim Creat Clear Calc 9.33 L*, Est GFR (MDRD) Non-Af 5 L, BUN/Creatinine Ratio 3.0 L, Glucose 98, Calcium 9.9, [place] [address] H Imaging Radiology Impression Chest X-Ray 10/13/24 08:32 IMPRESSION: Borderline cardiomegaly. Mild degree of vascular congestion and CHF. Reading Location: [id number] Assessment & Plan Assessment/Plan (1) Hypoxia: (2) Elevated brain natriuretic peptide (BNP) level: PLAN: Plan Shortness of breath/exertional hypoxia secondary to acute decompensated heart failure - Marked BNP elevation at 44,433 - Urgent dialysis for management of volume - Check echocardiogram - Currently requiring 2 L and patient is not oxygen dependent at home -Will need ambulatory pulse ox prior to discharge - Wean oxygen as able - Suspect markedly elevated blood pressures may play into this as well - Patient was only about 1.2 to 1.3 kg over his dry weight per discussion with nephrology nurse - Nephrology consult Elevated BNP - Secondary to volume overload - Check echocardiogram - Dialysis for fluid removal - Patient with also decreased BNP clearance due to abnormal renal function Elevated anion gap - Secondary to renal dysfunction - Should improve with dialysis - Bicarb is currently within normal range Cough -Etiology unclear -initially dx with bronchitis and was given Uncontrolled HTN - Continue but increase Coreg to 25 mg BID from 12.5 BID - Continue Losartan 100 mg - PRN Hydralazine for SBP >160 Chronic anemia secondary to chronic renal disease - Stable and at baseline ESRD 2/2 Alports Syndrome - HD per nephro - continue cinacalcet - continue Lanthanum - Continue Sevelamer H/O Tobacco abuse -continue cessation DVT prophylaxis -heparin 5000 mg BID Code Status -Full Code Charges/Coding Visit Charges Inpatient E&M: 02703 Init Hosp L2
--- NOTE | 2024-10-13 13:49 | ECHOD_ITS ---
Reason For Study Reason For Study: Dyspnea/SOB Procedure This was a 2D Doppler, Color Flow transthoracic echocardiogram. Myocardial strain analysis was performed in this exam to aid in the assessment of cardiac function. Exam performed portable in patient room. Left Ventricle Normal LV size. Mild concentric left ventricular hypertrophy. The global longitudinal strain = -15.7% (abnormal). The left ventricular ejection fraction is 50 %. Right Ventricle Normal RV size. Normal systolic function. Atria Normal left atrium. Normal right atrium. Mitral Valve Normal mitral valve. Mild (1+) eccentric mitral valve insufficiency. Tricuspid Valve Normal tricuspid valve. Mild (1+) tricuspid valve insufficiency. Pulmonary artery systolic pressure is 48 mmHg. Aortic Valve Trisinus/trileaflet aortic valve. Pulmonic Valve Normal pulmonic valve. Great Vessels Normal aortic root. The pulmonary artery is normal size. Inferior vena cava collapse with respiration. Pericardium/Pleural No pericardial effusion. MMode/2D Measurements & Calculations LVIDd: 5.0 cm IVSd: 1.3 cm Ao root diam: 3.2 cm LVIDs: 3.7 cm LVPWd: 1.3 cm RVDd: 4.1 cm FS: 25.9 % LAV(MOD-bp): 67.1 ml LVAd ap4: 38.3 cm2 SV(MOD-sp4): 68.9 ml LAV(MOD-bp) Indexed: 33.6 ml/m2 LVLd ap4: 8.7 cm SI(MOD-sp4): 34.5 ml/m2 LAV(MOD-sp2): 65.7 ml EDV(MOD-sp4): 137.0 ml LAV(MOD-sp4): 58.5 ml EDV(sp4-el): 143.8 ml LVAs ap4: 24.3 cm2 LVLs ap4: 7.2 cm ESV(MOD-sp4): 68.1 ml ESV(sp4-el): 69.4 ml EF(MOD-sp4): 50.3 % EF(sp4-el): 51.8 % SV(sp4-el): 74.5 ml LA A4 area: 20.8 cm2 LA dimension(2D): 3.9 cm RA A4 area: 16.1 cm2 TAPSE: 2.2 cm Time Measurements MV dec time: 0.17 sec Doppler Measurements & Calculations MV E max randy: 124.2 cm/sec Lat Peak E' Randy: 11.3 cm/sec Med Peak E' Randy: 9.3 cm/sec MV A max randy: 76.2 cm/sec E/E' lat: 11.0 E/E' med: 13.4 MV E/A: 1.6 MV V2 max: 161.1 cm/sec Ao V2 max: 175.2 cm/sec MV max P.4 mmHg MV dec slope: 722.3 cm/sec2 Ao max P.3 mmHg MV V2 mean: 108.8 cm/sec Ao V2 mean: 123.0 cm/sec MV mean P.5 mmHg Ao mean P.9 mmHg MV V2 VTI: 26.7 cm Ao V2 VTI: 29.7 cm AV (velocity ratio): 0.89 LV V1 max: 162.0 cm/sec MR max randy: 524.1 cm/sec PA V2 max: 131.7 cm/sec LV V1 max P.5 mmHg MR max P.9 mmHg PA V2 mean: 96.1 cm/sec LV V1 mean P.4 mmHg MR mean randy: 421.0 cm/sec LV V1 mean: 107.7 cm/sec MR mean P.6 mmHg LV V1 VTI: 26.5 cm MR VTI: 154.0 cm TR max randy: 333.1 cm/sec TR max P.4 mmHg ECHO/Echo Complete Interpretation Summary Normal LV size. Mild concentric left ventricular hypertrophy. The global longitudinal strain = -15.7% (abnormal). The left ventricular ejection fraction is 50 %. Ordering Physician: Bing Birmingham Performed By: Marcos Sarmiento RCS
[2024-10-13] MEDS: 0.9% Normal Saline 1,000 ML IV.SOLN. 1000 ML OPERA.SITE (14:03)
[2024-10-13] MEDS: PureFlow B 2K Dialysis Soln 1 BAG 6 BAG PF (14:03)
[2024-10-13] MEDS: Heparin Injection (Vial) 5,000 UNIT/ML VIAL 5000 UNIT SC (14:48)
[2024-10-13] MEDS: 0.9% Saline Lock 10 ML Syringe IV ×2 (16:35→18:03)
[2024-10-13] MEDS: SEVELAMER CARBONATE 800 MG TABLET 4000 MG PO (17:03)
[2024-10-14 03:45] VITALS: BP 161/115; PULSE 92; RESP 14; TEMP 36.6; O2SAT 97
[2024-10-14 05:23] VITALS: BMI 25.2
[2024-10-14 05:26] VITALS: BP 161/115; PULSE 92
[2024-10-14 06:06] LABS: Hematocrit 27.5 % (40-54); Hemoglobin 8.9 g/dL (13.0-16.5); Immature Granulocytes Count 0.020 X10^3/uL (0.0-0.0); Mean Corp Hgb Conc 32.4 g/dL (32-36); Mean Corpuscular Volume 98.2 fL (80-94); Mean Platelet Vol. 9.4 fl (6.2-12.0); NRBC Flagged by Analyzer 0 % (0-5); Platelet Count 231 K/mm3 (150-450); RBC Distribution Width CV 16.0 % (11.6-14.6); RBC Distribution Width SD 56.3 fl (35.1-43.9); Red Blood Count 2.80 M/mm3 (4.6-6.2); White Blood Count 8.7 K/mm3 (4.4-11.0)
[2024-10-14] MEDS: 0.9% Saline Lock 10 ML Syringe IV (06:11)
[2024-10-14 06:31] LABS: Magnesium 2.5 mg/dL (1.5-2.2)
[2024-10-14 06:33] LABS: AST(SGOT) 8 U/L (<=37); Alanine Aminotransfer ALT/SGPT 10 U/L (<=46); Albumin, Serum 3.7 g/dL (3.5-5.0); Alkaline Phosphatase 70 U/L (40-129); Anion Gap 16 (5-15); BUN 38 mg/dL (4-19); BUN/Creat Ratio 3.7 RATIO (10-20); Calcium,Total 9.1 mg/dL (7.6-11.0); Carbon Dioxide 22.2 mmol/L (21.0-32.0); Chloride 100 mmol/L (98-108); Estimated Creatinine Clearance 11.54 ml/min (50-250); Globulin 2.0 g/dL (2.2-4.2); Glucose 93 mg/dL (70-99); Potassium 5.8 mmol/L (3.3-5.1)
[2024-10-14 08:55] LABS: Potassium 5.6 mmol/L (3.3-5.1)
[2024-10-14 10:00] VITALS: BP 148/63; PULSE 101; RESP 16; TEMP 36.6; O2SAT 98
[2024-10-14] MEDS: Folic Acid/Vitamin B Comp W-C 1 Capsule 1 CAP PO (10:16)
--- NOTE | 2024-10-14 10:19 | PCM.CONS.R ---
Assessment & Plan Assessment/Plan (1) ESRD (end stage renal disease): (2) Hyperkalemia: (3) Hypoxia: PLAN: Plan This is a 24-year-old male with past medical history significant for ESRD on hemodialysis Sunday schedule, admitted to the hospital for shortness of breath, hypoxia. Patient did undergo hemodialysis yesterday and tolerated around 4.7 L fluid removal. There is no acute indication for DRIVER today. Potassium mildly elevated, patient is on renal diet and reviewed with patient importance of avoiding and/or limiting potassium rich foods. If patient remains in hospital overnight we will plan for dialysis tomorrow over 4 hours on 2K bath. Patient will have a new lowered EDW at [facility]. Breathing has improved, patient is on room air this morning. Blood pressures mildly elevated, amlodipine was added. Will attempt to remove fluid with hemodialysis, challenge dry weight and may see further improvement in blood pressures. Further orders forthcoming as hospitalization evolves, thank you for allowing us participate in the care of Mr. Art. Assessment and plan reviewed with Dr. Armas. HPI Consult Data Date of Consult: 10/14/24 HPI Narrative HPI Narrative: OMA ART, is a 24 M with a past medical history significant for ESRD who is on hemodialysis at [facility] Sunday, presented to the emergency room yesterday with complaints of shortness of breath. Recently diagnosed with pneumonia. In the emergency room oxygen saturation dropped mid 80% when patient was ambulating therefore, chest x-ray showed mild degree of vascular congestion and CHF; patient was admitted for further evaluation and treatment. Patient did undergo hemodialysis yesterday in hospital and tolerated around 4.5 L fluid removal. Today patient reports breathing has improved. He is on room air. He denies any complaints. [facility] Medical History (Updated 10/14/24 @ 10:22 by SHERMAN Anthony) Chronic anemia AV fistula Kidney disease Former smoker Hypertension Dialysis patient Arteriovenous fistula of right upper extremity Alports syndrome Home Medications ?Medication ?Instructions ?Recorded ?Last Taken ?Type carvedilol 12.5 mg tablet 12.5 mg PO BID 02/11/24 10/12/24 History cinacalcet 30 mg tablet 30 mg PO QPM 02/11/24 Unknown History losartan 100 mg tablet 100 mg PO DAILY 02/11/24 10/12/24 History sevelamer carbonate 800 mg tablet 800 mg PO TID 02/11/24 10/12/24 History vit B,C-folic ac 800 mcg-zinc 12.5 1 tab PO DAILY 02/11/24 10/12/24 History mg-selen-D3 2,000 unit-vit E tablet (RenaPlex-D) albuterol sulfate 90 mcg/actuation 1 - 2 puff inhalation Q4H PRN PRN 10/03/24 Unknown Rx aerosol inhaler (Ventolin HFA) Wheezing #1 inh lanthanum 1,000 mg chewable tablet 1,000 mg PO TID 10/03/24 10/12/24 History Allergy/AdvReac Type Severity Reaction Status Date / Time No Known Allergies Allergy Verified 10/13/24 08:14 Family History no significant family his Surgical History no surgical history Social History (Updated 10/13/24 @ 16:[address] Bing Birmingham, DO) household members: family housing: house Smoking Status: Former smoker alcohol intake: never substance use type: does not use ROS ROS Narrative As in HPI Physical Exam Narrative Alert and oriented x 3, no apparent distress S1, S2, RRR Lungs sound clear anteriorly, no rales or rhonchi, diminished breath sounds posterior bases. On room air. Abdomen soft, nontender No pitting edema AV fistula positive thrill and bruit Lab / Micro Data 10/14/24 05:58 10/14/24 08:35 Labs: Laboratory Results - last 24 hr 10/14/24 05:58: WBC 8.7, RBC 2.80 L, Hgb 8.9 L, Hct 27.5 L, MCV 98.2 H, MCH 31.8, MCHC 32.4, RDW Std Deviation 56.3 H, RDW Coeff of Mono 16.0 H, Plt Count 231, MPV 9.4, Immature Gran % (Auto) 0.200, Neut % (Auto) 63.4, Lymph % (Auto) 22.1, [place] % (Auto) 6.1, Eos % (Auto) 7.9 H, Baso % (Auto) 0.3, Absolute Neuts (auto) 5.5, Absolute Lymphs (auto) 1.92, Nucleated RBC % 0, Sodium 138, Potassium 5.8 H, Chloride 100, Carbon Dioxide 22.2, Anion Gap 16 H, BUN 38 H, Creatinine 10.10 H*, Estim Creat Clear Calc 11.54 L, Est GFR (MDRD) Non-Af 7 L, BUN/Creatinine Ratio 3.7 L, Glucose 93, Calcium 9.1, Phosphorus 6.6 H, Magnesium 2.5 H, Total Bilirubin 0.41, AST 8, ALT 10, Alkaline Phosphatase 70, Total Protein 5.7 L, Albumin 3.7, Globulin 2.0 L, Albumin/Globulin Ratio 1.9 10/14/24 08:35: Potassium 5.6 H
[2024-10-14 10:30] VITALS: O2SAT 97; O2SAT 98
[2024-10-14] MEDS: SEVELAMER CARBONATE 800 MG TABLET 4000 MG PO (12:24)
--- NOTE | 2024-10-14 12:42 | DS.PCM_ITS ---
Providers Date of Admission: 10/13/24 Date of Discharge: 10/14/24 Primary Care Physician: Emma Primary Care Phys Consultations 10/13/24 13:49 Consult: Nephrology Routine Consulting Provider: Windy Higuera Reason for Consult: Dialysis EMERGENT Consult: No MD Notified: Yes Date Notified: 10/13/24 Time Notified: 12:22 Method of Notification: ED Physician Initiated Reason For Visit: VOLUME OVERLOAD SECONDARY TO DECOMPENSATED HEART Diagnosis Discharge Diagnosis (1) ESRD (end stage renal disease): Status: Acute Code(s): N18.6 - End stage renal disease (2) Hyperkalemia: Status: Acute Code(s): E87.5 - Hyperkalemia (3) Hypoxia: Status: Acute Code(s): R09.02 - Hypoxemia (4) Hypertensive emergency: Status: Acute Code(s): I16.1 - Hypertensive emergency Medications at Discharge Home Medications cinacalcet 30 mg tablet 30 mg PO QPM 02/11/24 losartan 100 mg tablet 100 mg PO DAILY 02/11/24 sevelamer carbonate 800 mg tablet 800 mg PO TID 02/11/24 vit B,C-folic ac 800 mcg-zinc 12.5 mg-selen-D3 2,000 unit-vit E tablet (RenaPlex-D) 1 tab PO DAILY 02/11/24 albuterol sulfate 90 mcg/actuation aerosol inhaler (Ventolin HFA) 1 - 2 puff inhalation Q4H PRN PRN Wheezing #1 inh 10/03/24 lanthanum 1,000 mg chewable tablet 1,000 mg PO TID 10/03/24 amlodipine 5 mg tablet 5 mg PO DAILY #30 tabs 10/14/24 carvedilol 25 mg tablet 25 mg PO BIDCM #60 tabs 10/14/24 Hospital Course Operations None Procedures 2-D Echocardiogram, Dialysis and - (Chest x-ray) Summary of Care Provided Minutes Spent on Discharge: 39 Hospital Course: OMA DOYLE, is a 24 M who presented to the emergency department at [facility] on 10/05/2024 complaining of shortness of breath. Patient has history of Alport syndrome and has end-stage renal disease currently on dialysis. He started dialysis about 2 years ago and up until last couple months he was tolerating dialysis well. He states currently he is getting nauseated at the end of his sessions. His last dialysis was Sunday and he ran all the last 10 minutes. He was seen in the emergency department on 10/03/2024 and diagnosed with bronchitis. At that time he was given a Z-Sel[place], albuterol, and a prednisone taper. He states he still has a cough. He said no fever or chills. His white count and differential was normal been as it is now. He states that his blood pressure is always fairly elevated despite compliance with his home blood pressure medicines. He states he is symptomatic if his blood pressure starts to drop below 130 systolic. He follows with Dr. Higuera as an outpatient. Vital signs on presentation showed temperature 98.7, heart rate 110, blood pressure 191/131, respiratory rate 16-23 and pulse ox was 93 to 98% on room air at rest however he desatted with exertion into the low 80s. Given that exertional desat admission was felt to be needed as he was not able to have outpatient dialysis today and would have to defer to tomorrow. CBC shows a chronic stable anemia but was otherwise unremarkable with a normal white count and differential. His chemistry panel showed markedly elevated anion gap at 19 BUN of 38 and a serum creatinine of 12.50. BNP was obtained and was 44,433. CXR is consistent with volume overload. The case was discussed with nephrology who agreed to urgent dialysis on the day of presentation to help with his volume overload. I highly suspect that his blood pressure caused a stiffened ventricle which resulted in diastolic heart failure as etiology for his volume status as he was only about 1.6 kg above his dry weight. We were able to bring his blood pressure down and get him dialyzed with significant help with his exertional hypoxia. Ambulatory pulse ox was done on the day of discharge and oxygen saturations were at 97% with exertion on room air. With regards to his blood pressure we did increase his carvedilol from 12.5 mg p.o. twice daily to 25 mg p.o. twice daily and added low-dose amlodipine 5 mg daily. The patient did indicate that he does tend to get symptomatic if his blood pressures drop below 130 systolic so right now the goal for him will be between 140 and 160 and have him follow-up as an outpatient with nephrology and they can slowly lower his blood pressure further with additional medication if needed. Blood pressure at the time of discharge is 148/63. We did obtain an echocardiogram due to his markedly elevated BNP and his symptoms on presentation. Echo showed an EF of 50% with mild concentric LVH and global longitudinal strain at 15.7% which is abnormal. I suspect this is all related to uncontrolled blood pressure at this time hopefully we can get his blood pressure better controlled and decrease the amount of stress from a diastolic standpoint on his cardiac function. Prescriptions for the increased dose of carvedilol and amlodipine were sent to the pharmacy prior to discharge the patient was discharged home in stable condition on 10/14/2024. Discharge diagnoses: Exertional hypoxia secondary to volume overload Hypertensive emergency with elevated BNP and shortness of breath Concentric LVH Elevated anion gap Cough Chronic anemia secondary to chronic renal disease ESRD secondary to Alport syndrome History of tobacco abuse Physical Exam Const alert, oriented x3, no apparent distress, average body habitus and well nourished; Negative for healthy appearing Constitutional Narrative: Young, white male, sitting up in bed watching television, appears comfortable, nontoxic General Appearance: cooperative, comfortable, well kempt and well developed Exam Limitations: no limitations HEENT normocephalic, head/scalp atraumatic, hearing grossly normal bilaterally and moist oral mucous membranes HEENT Narrative: Mallampati 2, no thrush Eyes EOMs intact bilaterally Eyes Narrative: Mildly pale conjunctiva bilaterally, no scleral icterus Neck supple Neck Narrative: Trachea midline Resp normal respiratory effort, no retractions, no use of accessory muscles and clear to auscultation bilaterally Auscultation: Negative for crackles, rhonchi or wheezes Cardio regular rate, regular rhythm, S1 normal heart sound, S2 normal heart sound, no murmurs, no rub, no gallops and no clicks GI normal to inspection, nondistended, normoactive bowel sounds, soft to palpation and non-tender Extremity no clubbing, cyanosis or edema Extremity Narrative: Right upper extremity fistula with positive thrill and bruit Skin no jaundice Neuro oriented x3, moves all extremities and no focal motor deficits Speech: speech normal Psych affect normal Psych Narrative: Very pleasant, appears as if he is feeling much better, interacts appropriately, eye contact is good Weight / BMI Weight Weight: 80 kg Body Mass Index (BMI) 25.2 ABG / Lab / Microbiology Data 10/14/24 05:58 10/14/24 08:35 Laboratory: Laboratory Results - last 24 hr 10/14/24 05:58: WBC 8.7, RBC 2.80 L, Hgb 8.9 L, Hct 27.5 L, MCV 98.2 H, MCH 31.8, MCHC 32.4, RDW Std Deviation 56.3 H, RDW Coeff of Mono 16.0 H, Plt Count 231, MPV 9.4, Immature Gran % (Auto) 0.200, Neut % (Auto) 63.4, Lymph % (Auto) 22.1, [place] % (Auto) 6.1, Eos % (Auto) 7.9 H, Baso % (Auto) 0.3, Absolute Neuts (auto) 5.5, Absolute Lymphs (auto) 1.92, Nucleated RBC % 0, Sodium 138, P otassium 5.8 H, Chloride 100, Carbon Dioxide 22.2, Anion Gap 16 H, BUN 38 H, C reatinine 10.10 H*, Estim Creat Clear Calc 11.54 L, Est GFR (MDRD) Non-Af 7 L, B UN/Creatinine Ratio 3.7 L, Glucose 93, Calcium 9.1, Phosphorus 6.6 H, Magnesium 2.5 H, Total Bilirubin 0.41, AST 8, ALT 10, Alkaline Phosphatase 70, Total Protein 5.7 L, Albumin 3.7, Globulin 2.0 L, Albumin/Globulin Ratio 1.9 10/14/24 08:35: Potassium 5.6 H Radiography Diagnostic Testing: Radiology Impression Echocardiogram 10/13/24 13:49 Interpretation Summary Normal LV size. Mild concentric left ventricular hypertrophy. The global longitudinal strain = -15.7% (abnormal). The left ventricular ejection fraction is 50 %. Ordering Physician: Bing Birmingham Performed By: Marcos Sarmiento RCS D/C Instructions Discharge Activity: Return to Normal Activity Return to work on: 10/15/24 DC O2, CPAP, BIPAP Needs Home O2 Discharge instructions: No Meaningful Use Info Meaningful Use Meaningful Use Diagnoses (Choose all that apply): None applicable Discharge Plan Admission Admit Date/Time: 10/13/24 12:21 Primary Reason for Your Visit: Shortness of breath Attending Provider: Bing Birmingham Primary Care Provider: Care Physician,No Primary Consulting Providers: Windy Higuera Discharge Orders/Prescriptions Prescriptions: New carvedilol 25 mg Tablet 25 mg PO BIDCM Qty: 60 1RF amlodipine 5 mg Tablet 5 mg PO DAILY Qty: 30 1RF Continued losartan 100 mg tablet 100 mg PO DAILY RenaPlex-D 800 mcg-12.5 mg -2,000 unit tablet 1 tab PO DAILY cinacalcet 30 mg tablet 30 mg PO QPM sevelamer carbonate 800 mg tablet 800 mg PO TID lanthanum 1,000 mg tablet,chewable 1,000 mg PO TID albuterol sulfate [Ventolin HFA] 90 mcg/actuation HFA aerosol inhaler 1 - 2 puff inhalation Q4H PRN PRN (Reason: Wheezing) Qty: 1 0RF Discontinued carvedilol 12.5 mg tablet 12.5 mg PO BID Referrals / Follow Up: Windy Higuera MD [Med Staff - Consulting] - As soon as possible Care Physician,No Primary [Primary Care Provider] - Disposition Disposition (needs filled in before D/C Order can be placed): Home, Self Care Charges/Coding Visit Charges Inpatient E&M: 58632 Disch Hosp >30min
--- NOTE | 2024-10-14 13:30 | PHA.DC.MC.R ---
Pharmacy [facility] Counseling Pharmacy Service has performed discharge medication reconciliation and counseling for this patient. 1. AMLODIPINE 5MG PO DAILY 2. CARVEDILOL INCREASED TO 25MG The patient's discharge medication list was reviewed for discrepancies and discrepancies were resolved. The patient was counseled on the following discharge medications and changes in medications for homegoing were reviewed. The Reason for Use, instructions for use, and potential side effects were reviewed for all new medications. The patient's questions regarding all of their medications were answered. The patient was able to verbally demonstrate an understanding of their discharge medications. Medications at Discharge Home Medications cinacalcet 30 mg tablet 30 mg PO QPM 02/11/24 losartan 100 mg tablet 100 mg PO DAILY blood pressure 02/11/24 sevelamer carbonate 800 mg tablet 800 mg PO TID supplement 02/11/24 vit B,C-folic ac 800 mcg-zinc 12.5 mg-selen-D3 2,000 unit-vit E tablet (RenaPlex-D) 1 tab PO DAILY vitamin 02/11/24 albuterol sulfate 90 mcg/actuation aerosol inhaler (Ventolin HFA) 1 - 2 puff inhalation Q4H PRN PRN Wheezing #1 inh 10/03/24 lanthanum 1,000 mg chewable tablet 1,000 mg PO TID dialysis 10/03/24 amlodipine 5 mg tablet 5 mg PO DAILY #30 tabs 10/14/24 carvedilol 25 mg tablet 25 mg PO BIDCM #60 tabs 10/14/24
--- NOTE | 2024-10-14 13:53 | CASEMGMT ---
Patient has order for discharge. RN CM in to discuss needs at discharge. Patient is not established with PCP, RN CM provided list and encouraged patient to get established with PCP for follow-up and preventative care. Patient voiced understanding. Patient denies further needs or help at discharge. Patient had no further questions.
[2024-10-14 14:00] VITALS: BP 142/96; PULSE 93; RESP 16; TEMP 36.6; O2SAT 98
== END 2024-10-14 14:15 | disposition home or self-care (01) ==
LOC: ED 12:13 → PCU 13:20
PROVIDERS: Nurse Practitioner Adult Health; Admitting Provider Internal Medicine; Emergency Provider Emergency Medicine; Visit Provider Internal Medicine
DX: I13.2 Hypertensive heart and chronic kidney disease with heart failure and with stage 5 chronic kidney disease, or end stage renal disease (principal); N18.6 End stage renal disease; I50.31 Acute diastolic (congestive) heart failure; R09.02 Hypoxemia; Z99.2 Dependence on renal dialysis; Z87.891 Personal history of nicotine dependence; Q87.81 Alport syndrome; D63.1 Anemia in chronic kidney disease; I16.1 Hypertensive emergency; E87.5 Hyperkalemia; Z79.899 Other long term (current) drug therapy
CPT/HCPCS: 36415; 71046; 80048; 80053; 83735; 83880; 84100; 84132; 85025; 90937; 93005; 93306; 96372; 96374; 96375; 96376; 99221; 99252; 99285; A4216; G0257; G0378; G0463; J2405

== ENCOUNTER 2025-01-31 01:14 | Inpatient (IN) | payer MEDICARE, BC, SELFPAY ==
[2025-01-31] VITALS (31 sets, daily range): BP systolic 117–209; BP diastolic 66–145; PULSE 71–110; RESP 12–29; TEMP 36.1–37.2; O2SAT 87–100; BMI 24.9; BMI 24.1; BMI 23.1
--- NOTE | 2025-01-31 01:38 | EKG12_ITS ---
Test Reason : DYSRHYTHMIA Blood Pressure : */* mmHG Vent. Rate : 109 BPM Atrial Rate : 109 BPM P-R Int : 140 ms QRS Dur : 84 ms QT Int : 352 ms P-R-T Axes : 50 63 62 degrees QTcB Int : 474 ms Sinus tachycardia Nonspecific T wave abnormality Abnormal ECG Confirmed by ROD PEREIRA, BRIAN ([id number]), primer expeditor and drier GERARDO THURMAN ([id number]) on 02/02/2025 9:06:47 AM Referred By: Confirmed By: BRIAN VELASCO MD
--- OUTSIDE RECORDS SUMMARY | 2025-01-31 01:46 | XMS RPT_ITS | CCD ---
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 Translations: [Other specified abnormal findings of blood chemistry] Onset: 5 10-13-2024 Episodic Other skin disorders (1 source) Ingrowing nail; Translations: [Ingrowing nail] Onset: 2 Episodic Other upper respiratory infections (2 sources) Acute laryngitis; Translations: [Acute upper respiratory infection, unspecified] Onset: 2 Episodic Respiratory failure; insufficiency; arrest (adult) (1 source) Respiratory failure; insufficiency; arrest (adult) 02-18-2022 Skin and subcutaneous tissue infections (3 sources) Infection of big toe; Translations: [Unspecified local infection of skin and subcutaneous tissue] Onset: 2 02-18-2022 Episodic Spondylosis; intervertebral disc disorders; other back problems (2 sources) Backache; Translations: [Backache, unspecified] 03-16-2022 Episodic Substance-related disorders (1 source) Smoker; Translations: [Nicotine dependence, unspecified, uncomplicated] 05-11-2023 Chronic Superficial injury; contusion (3 sources) Contusion of knee; Translations: [Contusion of unspecified knee, initial encounter] Onset: 4 05-09-2023 Episodic Unclassified (2 sources) Hematuria, unspecified / R31.9(ICD-9) Onset: 8 Unclassified (2 sources) Encounter for other preprocedural examination / Z01.818(ICD-9) Onset: 8 Unclassified (2 sources) Chest pain, unspecified / R07.9(ICD-9) Onset: 8 Unclassified (1 source) Nicotine dependence, unspecified, uncomplicated / F17.200(ICD-9) Onset: 8 Unclassified (2 sources) Nausea / R11.0(ICD-9) Onset: 7 Unclassified (1 source) Proteinuria, unspecified / R80.9(ICD-9) Onset: 8 Unclassified (1 source) Polyneuropathy, unspecified / G62.9(ICD-9) Onset: 8 Unclassified (1 source) Vitamin D deficiency, unspecified / E55.9(ICD-9) Onset: 8 Unclassified (2 sources) Primary hypertension 02-18-2022 Unclassified (2 sources) INFECTION OF GREAT TOE L08.9 02-18-2022 Comment on above: INFECTION OF GREAT T OE L08.9 Unclassified (1 source) Infection of great toe 02-18-2022 Unclassified (1 source) 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 02-21-2022 Unclassified (1 source) Cellulitis of right foot 02-21-2022 Unclassified (2 sources) RENAL 03-16-2022 Comment on above: RENAL Unclassified (1 source) HOSPITAL FOLLOW UP 03-21-2022 Comment on above: HOSPITAL FOLLOW UP Unclassified (1 source) Acute chest wall pain 03-19-2022 Unclassified (1 source) Contact with and (suspected) exposure to COVID-19; Translations: [Contact with and (suspected) exposure to COVID-19] Onset: 3 Unclassified (1 source) Low back pain, unspecified; Translations: [Low back pain, unspecified] Onset: 3 Viral infection (1 source) Disease caused by 2019-nCoV; Translations: [COVID-19] 01-27-2023 Episodic Past or Other Problems Problem Classification Problem Date Documented Date Episodic/Chronic Allergic reactions (2 sources) Allergic condition; Translations: [Allergy, unspecified, initial encounter] Onset: 01-17-2023 12-21-2022 Episodic Complication of device; implant or graft (20 sources) Disorder of surgical arteriovenous fistula; Translations: [Unspecified complication of cardiac and vascular prosthetic device, implant and graft, initial encounter] Onset: 06-06-2022 08-10-2022 Episodic Genitourinary symptoms and ill-defined conditions (1 source) Hematuria, unspecified; Translations: [Hematuria, unspecified] Onset: 06-08-2017 Episodic Headache, including migraine (1 source) Headache; Translations: [Headache] Onset: 04-17-2017 Episodic Nutritional deficiencies (20 sources) Iron deficiency; Translations: [Iron deficiency anemia, unspecified] Onset: 03-21-2022 03-18-2022 Episodic Unclassified (1 source) Encounter for other preprocedural examination; Translations: [Encounter for other preprocedural examination] Onset: 06-07-2017 Unclassified (1 source) EAR AND THORT PAIN 02-18-2022 Comment on above: EAR AND THORT PAIN Results Test Name Value Interpretation Reference Range Facility ED Prov Noteon 01-22-2025 ED Prov Note HPI: 01/22/2025, Time: @NOWNR@ Lawson Conor Doyle is a 24 y.o. male presenting to the ED for vomiting, beginning 1 day ago. The complaint has been constant, moderate in severity, and worsened by nothing. States he missed dialysis yesterday but is scheduled to go back today for dialysis at 7 AM. No fever or chills or chest pain. No hematemesis or black or bloody stools. ROS: Pertinent positives and negatives are stated within HPI, all other systems reviewed and are negative. PAST HISTORY Past Medical History: @[facility]@ Past Surgical History: has no past surgical history on file. Social History: reports that he has never smoked. He has never used smokeless tobacco. He reports current alcohol use. He reports that he does not use drugs. Family History: family history is not on file. The patient's home medications have been reviewed. Allergies: Patient has no known allergies. ---- RESULTS --- All laboratory and radiology results have been personally reviewed by myself LABS: Results for orders placed or performed during the hospital encounter of 01/22/25 POC CBC and Differential Collection Time: 01/22/25 3:53 AM Result Value Ref Range WBC 9.87 4.50 - 11.00 K/mcL RBC 3.41 (L) 4.50 - 5.90 M/mcL Hemoglobin 10.3 (L) 13.5 - 17.5 g/dL Hematocrit 33.6 (L) 41.0 - 53.0 % MCV 98.5 80.0 - 100.0 fL MCH 30.2 26.0 - 34.0 pg MCHC 30.7 (L) 31.0 - 37.0 g/dL RDW - CV 18.5 (H) 11.6 - 14.8 % Platelets 230 150 - 400 K/mcL MPV 9.5 9.4 - 12.4 fL Neutrophils 83.4 % Lymphocytes 10.5 % Monocytes 4.5 % Eosinophils 1.2 % Basophils 0.3 % IG Percent 0.10 % Neutrophils Abs 8.23 (H) 1.70 - 7.00 K/mcL Lymphocytes Abs 1.04 0.90 - 4.00 K/mcL Monocytes Abs 0.44 0.30 - 0.90 K/mcL Eosinophils Abs 0.12 0.00 - 0.50 K/mcL Basophils Abs 0.03 0.00 - 0.30 K/mcL IG Absolute 0.01 0.00 - 0.30 K/mcL POC Basic Metabolic Panel Collection Time: 01/22/25 3:59 AM Result Value Ref Range Glucose 96 65 - 99 mg/dL BUN 45 (H) 8 - 25 mg/dL Creatinine 12.54 (CH) 0.50 - 1.30 mg/dL GFR 5 (L) >=60 mL/min/1.73 m2 Sodium 135 135 - 145 mmol/L Potassium 7.0 (CH) 3.5 - 5.1 mmol/L Chloride 103 98 - 108 mmol/L TCO2 27 21 - 32 mmol/L Ionized Calcium 4.4 (L) 4.5 - 5.3 mg/dL POC Liver Panel Plus Collection Time: 01/22/25 4:00 AM Result Value Ref Range Albumin 4.5 3.2 - 5.2 g/dL Alkaline Phosphatase 64 40 - 140 U/L ALT (SGPT) 17 0 - 40 U/L AST (SGOT) 20 0 - 45 U/L Bilirubin, Total 1.1 0.0 - 1.3 mg/dL Total Protein 6.9 6.0 - 8.0 g/dL Amylase 11 (L) 25 - 115 U/L GGT 25 11 - 51 U/L RADIOLOGY: Interpreted by Radiologist. No orders to display -- NURSING NOTES AND VITALS REVIEWED ---- The nursing notes within the ED encounter and vital signs as below have been reviewed. BP (!) 206/125 (BP Location: Left arm, Patient Position: Sitting) Pulse (!) 114 Temp 98.2 degrees F (36.8 degrees C) (Oral) Resp (!) 20 Ht 5' 10" Wt 74 kg (163 lb 2.3 oz) SpO2 94% BMI 23.41 kg/m Oxygen Saturation Interpretation: Normal -----PHYSICAL EXAM Constitutional/General: Alert and oriented x3, ambulating without difficulty and no obvious respiratory distress Head: NC/AT Eyes: PERRL, EOMI Mouth: Oropharynx clear, handling secretions, no trismus Neck: Supple, full ROM, no meningeal signs Pulmonary: Lungs clear to auscultation bilaterally, no wheezes, rales, or rhonchi. Not in respiratory distress Cardiovascular: Regular rate and rhythm, no murmurs, gallops, or rubs. 2+ distal pulses Abdomen: Soft, non tender, non distended, Extremities: Moves all extremities x 4. Warm and well perfused Skin: warm and dry without rash Neurologic: GCS 15, Psych: Normal Affect ------- ED COURSE/MEDICAL DECISION MAKING ----- Medications ondansetron (ZOFRAN) injection 4 mg (has no administration in time range) calcium gluconate 100 mg/mL (10%) injection 1 g (has no administration in time range) insulin regular (Humulin R, Novolin R) injection 5 Units (has no administration in time range) And dextrose 50 % in water (D50W) syringe 25 g (has no administration in time range) sodium zirconium cyclosilicate (LOKELMA) packet 10 g (has no administration in time range) sodium bicarbonate 1 mEq/mL (8.4 %) injection 50 mEq (has no administration in time range) albuterol (PROVENTIL) 2.5 mg /3 mL (0.083 %) nebulizer solution 2.5 mg (has no administration in time range) Medical Decision Making: Will provide hyperkalemic protocol and patient states he will leave there after AGAINST MEDICAL ADVICE and actually go to his dialysis appointment this morning. Patient could (more content not included)... Normal [facility] POC BASIC METABOLIC PANEL - Windy 01-22-2025 Chloride [Moles/Vol] 103 mmol/L Normal 98-108 [facility] Comment on above: Order Comment: Criti gurmeet result acted upon time of test. Test performed at bedside. [facility] has implemented the eGFR calculation approach that does not have a coefficient for race that conforms to the NKF-ASN Task Force Recommendations. CO2 [Moles/Vol] 27 mmol/L Normal 21-32 [facility] Comment on above: Order Comment: Criti gurmeet result acted upon time of test. Test performed at bedside. [facility] has implemented the eGFR calculation approach that does not have a coefficient for race that conforms to the NKF-ASN Task Force Recommendations. Creatinine [Mass/Vol] 12.54 mg/dL Off scale high 0.50-1.30 [facility] Comment on above: Order Comment: Criti gurmeet result acted upon time of test. Test performed at bedside. [facility] has implemented the eGFR calculation approach that does not have a coefficient for race that conforms to the NKF-ASN Task Force Recommendations. Glucose [Mass/Vol] 96 mg/dL Normal 65-99 [facility] Comment on above: Order Comment: Criti gurmeet result acted upon time of test. Test performed at bedside. [facility] has implemented the eGFR calculation approach that does not have a coefficient for race that conforms to the NKF-ASN Task Force Recommendations. POC GFR 5 mL/min/1.73 m2 Low >=60 [facility] Comment on above: Order Comment: Criti gurmeet result acted upon time of test. Test performed at bedside. [facility] has implemented the eGFR calculation approach that does not have a coefficient for race that conforms to the NKF-ASN Task Force Recommendations. Result Comment: Gentry mated GFR was calculated using the 2020 CKD-EPI creatinine equation. POC IONIZED CALCIUM 4.4 mg/dL Low 4.5-5.3 [facility] Comment on above: Order Comment: Criti gurmeet result acted upon time of test. Test performed at bedside. [facility] has implemented the eGFR calculation approach that does not have a coefficient for race that conforms to the NKF-ASN Task Force Recommendations. Potassium [Moles/Vol] 7.0 mmol/L Off scale high 3.5-5.1 [facility] Comment on above: Order Comment: Criti gurmeet result acted upon time of test. Test performed at bedside. [facility] has implemented the eGFR calculation approach that does not have a coefficient for race that conforms to the NKF-ASN Task Force Recommendations. Sodium [Moles/Vol] 135 mmol/L Normal 135-145 [facility] Comment on above: Order Comment: Criti gurmeet result acted upon time of test. Test performed at bedside. [facility] has implemented the eGFR calculation approach that does not have a coefficient for race that conforms to the NKF-ASN Task Force Recommendations. Urea nitrogen [Mass/Vol] 45 mg/dL High 8-25 [facility] Comment on above: Order Comment: Criti gurmeet result acted upon time of test. Test performed at bedside. [facility] has implemented the eGFR calculation approach that does not have a coefficient for race that conforms to the NKF-ASN Task Force Recommendations. POC CBC AND DIFFERENTIALon 03-24-2024 BASOPHILS ABSOLUTE COUNT 0.03 K/mcL Normal 0.00-0.30 [facility] Basophils/100 WBC (Bld) 0.3 % Normal [facility] Eosinophils (Bld) [#/Vol] 0.12 10*3/uL Normal 0.00-0.50 [facility] Eosinophils/100 WBC (Bld) 1.2 % Normal [facility] Erythrocyte distribution width (RBC) [Ratio] 18.5 % High 11.6-14.8 [facility] Hematocrit (Bld) [Volume fraction] 33.6 % Low 41.0-53.0 [facility] Hemoglobin (Bld) [Mass/Vol] 10.3 g/dL Low 13.5-17.5 [facility] IG ABSOLUTE 0.01 K/mcL Normal 0.00-0.30 [facility] IG PERCENT 0.10 % Normal [facility] Comment on above: Result Comment: The IG parameter is the percentage of metamyelocytes, myelocytes and promyelocytes. An immature granulocyte count (IG) of 1% or more suggests the possibility of infection, an IG count of 3% is very likely related to an infection. Lymphocytes (Bld) [#/Vol] 1.04 10*3/uL Normal 0.90-4.00 [facility] Lymphocytes/100 WBC (Bld) 10.5 % Normal [facility] MCH (RBC) [Entitic mass] 30.2 pg Normal 26.0-34.0 [facility] MCV (RBC) [Entitic vol] 98.5 fL Normal 80.0-100.0 [facility] MEAN CORPUSCULAR HEMOGLOBIN CONC 30.7 g/dL Low 31.0-37.0 [facility] Monocytes (Bld) [#/Vol] 0.44 10*3/uL Normal 0.30-0.90 [facility] Monocytes/100 WBC (Bld) 4.5 % Normal [facility] NEUTROPHILS ABSOLUTE COUNT 8.23 K/mcL High 1.70-7.00 [facility] Neutrophils/100 WBC (Bld) 83.4 % Normal [facility] Platelet mean volume (Bld) [Entitic vol] 9.5 fL Normal 9.4-12.4 [facility] Platelets (Bld) [#/Vol] 230 10*3/uL Normal 150-400 [facility] RBC (Bld) [#/Vol] 3.41 10*6/uL Low 4.50-5.90 [facility] WBC (Bld) [#/Vol] 9.87 10*3/uL Normal 4.50-11.00 [facility] POC LIVER PANEL PLUS RALSon 01-22-2025 Albumin [Mass/Vol] 4.5 g/dL Normal 3.2-5.2 [facility] ALP [Catalytic activity/Vol] 64 U/L Normal 40-140 [facility] ALT [Catalytic activity/Vol] 17 U/L Normal 0-40 [facility] Amylase [Catalytic activity/Vol] 11 U/L Low 25-115 [facility] Amylase [Catalytic activity/Vol] 25 U/L Normal 11-51 [facility] AST [Catalytic activity/Vol] 20 U/L Normal 0-45 [facility] Bilirubin [Mass/Vol] 1.1 mg/dL Normal 0.0-1.3 [facility] Protein [Mass/Vol] 6.9 g/dL Normal 6.0-8.0 [facility] Basic metabolic 2000 panelon 01-06-2025 Anion gap [Moles/Vol] 16 mmol/L 10 - 2 0 mmol/L [facility] Calcium [Mass/Vol] 9.0 mg/dL 8.6 - 10. 3 mg/dL [facility] Chloride [Moles/Vol] 99 mmol/L 98 - 10 7 mmol/L [facility] CO2 [Moles/Vol] 30 mmol/L 21 - 32 mmol/L [facility] Creatinine [Mass/Vol] 7.40 mg/dL High 0.50 - 1.30 mg/dL [facility] GFR/1.73 sq M.predicted among non-blacks MDRD (S/P/Bld) [Vol rate/Area] 10 mL/min/{1.73_m2} Low - PINF [facility] Comment on above: Calculations of gentry mated GFR are performed using the 2020 CKD-EPI Study Refit equation without the race variable for the IDMS-Traceable creatinine methods. https://jasn.asnjournals.org/content//ASN.430981 2383 Glucose [Mass/Vol] 83 mg/dL 74 - 99 mg/dL [facility] Interpretation and review of laboratory results Abnormal [facility] Potassium [Moles/Vol] 5.7 mmol/L High 3.5 - 5.3 mmol/L [facility] Sodium [Moles/Vol] 139 mmol/L 136 - 145 mmol/L [facility] Urea nitrogen [Mass/Vol] 20 mg/dL 6 - 23 mg/dL [facility] Anion gap [Moles/Vol] 16 mmol/L Normal 10-20 [facility] Comment on above: Performed By: #### 5 902-2 #### ALIVIA WALLACE ([id number]) [facility] ([facility]) [address] [place] [address] Calcium [Mass/Vol] 9.0 mg/dL Normal 8.6-10.3 [facility] Comment on above: Performed By: #### 5 902-2 #### ALIVIA WALLACE ([id number]) [facility] ([facility]) [address] [place] [address] Chloride [Moles/Vol] 99 mmol/L Normal 98-107 [facility] Comment on above: Performed By: #### 5 902-2 #### ALIVIA WALLACE ([id number]) [facility] ([facility]) [address] [place] [address] CO2 [Moles/Vol] 30 mmol/L Normal 21-32 [facility] Comment on above: Performed By: #### 5 902-2 #### ALIVIA WALLACE ([id number]) [facility] ([facility]) [address] [place] [address] Creatinine [Mass/Vol] 7.40 mg/dL High 0.50-1.30 [facility] Comment on above: Performed By: #### 5 902-2 #### ALIVIA WALLACE ([id number]) [facility] ([facility]) [address] [place] [address] Glomerular filtration rate 10 mL/min/1.73m*2 Low >60 [facility] Comment on above: Result Comment: Calc ulations of estimated GFR are performed using the 2020 CKD-EPI Study Refit equation without the race variable for the IDMS-Traceable creatinine methods. https://jasn.asnjournals.org/content/early//ASN.118882 3140 Performed By: #### 5 902-2 #### ALIVIA WALLACE ([id number]) [facility] ([facility]) [address] [place] [address] Glucose [Mass/Vol] 83 mg/dL Normal 74-99 [facility] Comment on above: Performed By: #### 5 902-2 #### ALIVIA WALLACE ([id number]) [facility] ([facility]) [address] [place] [address] Potassium [Moles/Vol] 5.7 mmol/L High 3.5-5.3 [facility] Comment on above: Performed By: #### 5 902-2 #### ALIVIA WALLACE ([id number]) [facility] ([facility]) [address] [place] [address] Sodium [Moles/Vol] 139 mmol/L Normal 136-145 [facility] Comment on above: Performed By: #### 5 902-2 #### ALIVIA WALLACE ([id number]) [facility] ([facility]) [address] [place] [address] 35[address] Urea nitrogen [Mass/Vol] 20 mg/dL Normal 6-23 [facility] Comment on above: Performed By: #### 5 902-2 #### ALIVIA WALLACE ([id number]) [facility] ([facility]) [address] [place] [address]35[address] CBC W Auto Differential pane l (Bld)on 01-06-2025 Basophils (Bld) [#/Vol] 0.02 10*3/uL [facility] Basophils/100 WBC (Bld) 0.3 % 0.0 - 2.0 % [facility] Eosinophils (Bld) [#/Vol] 0.52 10*3/uL [facility] Eosinophils/100 WBC (Bld) 7.3 % 0.0 - 6.0 % [facility] Erythrocyte distribution width (RBC) [Ratio] 18.6 % High 11.5 - 14.5 % [facility] Hematocrit (Bld) [Volume fraction] 29.4 % Low 41.0 - 52.0 % [facility] Hemoglobin (Bld) [Mass/Vol] 9.2 g/dL Low 13.5 - 17.5 g/dL [facility] Immature granulocytes (Bld) [#/Vol] 0.03 10*3/uL [facility] Immature granulocytes/100 WBC (Bld) 0.4 % 0.0 - 0.9 % [facility] Comment on above: Immature Granulocyte Count (IG) includes promyelocytes, myelocytes and metamyelocytes but does not include bands. Percent differential counts (%) should be interpreted in the context of the absolute cell counts (cells/UL). Interpretation and review of laboratory results Abnormal [facility] Lymphocytes (Bld) [#/Vol] 1.58 10*3/uL [facility] Lymphocytes/100 WBC (Bld) 22.1 % 13.0 - 44.0 % [facility] MCH (RBC) [Entitic mass] 30.7 pg 26.0 - 34.0 pg [facility] MCHC (RBC) [Mass/Vol] 31.3 g/dL Low 32.0 - 36.0 g/dL [facility] MCV (RBC) [Entitic vol] 98 fL 80 - 100 fL [facility] Monocytes (Bld) [#/Vol] 0.40 10*3/uL [facility] Monocytes/100 WBC (Bld) 5.6 % 2.0 - 10.0 % [facility] Neutrophils (Bld) [#/Vol] 4.60 10*3/uL [facility] Comment on above: Percent differential counts (%) should be interpreted in the context of the absolute cell counts (cells/uL). Neutrophils/100 WBC (Bld) 64.3 % 40.0 - 80.0 % [facility] Nucleated RBC/100 WBC (Bld) [Ratio] 0.0 % [facility] Platelets (Bld) [#/Vol] 250 10*3/uL [facility] RBC (Bld) [#/Vol] 3.00 10*6/uL Low [facility] WBC (Bld) [#/Vol] 7.2 10*3/uL [facility] Basophils (Bld) [#/Vol] 0.02 x10*3/uL Normal 0.00-0.10 [facility] Comment on above: Performed By: #### 5 902-2 #### ALIVIA WALLACE ([id number]) [facility] ([facility]) [address] [place] [address]1860 Basophils/100 WBC (Bld) 0.3 % Normal 0.0-2.0 [facility] Comment on above: Performed By: #### 5 902-2 #### ALIVIA WALLACE ([id number]) [facility] ([facility]) [address] [place] [address] 36568 Eosinophils (Bld) [#/Vol] 0.52 x10*3/uL Normal 0.00-0.70 [facility] Comment on above: Performed By: #### 5 902-2 #### ALIVIA WALLACE ([id number]) [facility] ([facility]) [address] [place] [address] 38068 Eosinophils/100 WBC (Bld) 7.3 % Normal 0.0-6.0 [facility] Comment on above: Performed By: #### 5 902-2 #### ALIVIA WALLACE ([id number]) [facility] ([facility]) [address] [place] [address] Erythrocyte distribution width (RBC) [Ratio] 18.6 % High 11.5-14.5 [facility] Comment on above: Performed By: #### 5 902-2 #### ALIVIA WALLACE ([id number]) [facility] ([facility]) [address] [place] [address] Hematocrit (Bld) [Volume fraction] 29.4 % Low 41.0-52.0 [facility] Comment on above: Performed By: #### 5 902-2 #### ALIVIA WALLACE ([id number]) [facility] ([facility]) [address] [place] [address] Hemoglobin (Bld) [Mass/Vol] 9.2 g/dL Low 13.5-17.5 [facility] Comment on above: Performed By: #### 5 902-2 #### ALIVIA WALLACE ([id number]) [facility] ([facility]) [address] [place] [address] Immature granulocytes (Bld) [#/Vol] 0.03 x10*3/uL Normal 0.00-0.70 [facility] Comment on above: Performed By: #### 5 902-2 #### ALIVIA WALLACE ([id number]) [facility] ([facility]) [address] [place] [address] Immature granulocytes/100 WBC (Bld) 0.4 % Normal 0.0-0.9 [facility] Comment on above: Result Comment: Litzy ture Granulocyte Count (IG) includes promyelocytes, myelocytes and metamyelocytes but does not include bands. Percent differential counts (%) should be interpreted in the context of the absolute cell counts (cells/UL). Performed By: #### 5 902-2 #### ALIVIA WALLACE ([id number]) [facility] ([facility]) [address] [place] [address] Lymphocytes (Bld) [#/Vol] 1.58 x10*3/uL Normal 1.20-4.80 [facility] Comment on above: Performed By: #### 5 902-2 #### ALIVIA WALLACE ([id number]) [facility] ([facility]) [address] [place] [address] 58398 Lymphocytes/100 WBC (Bld) 22.1 % Normal 13.0-44.0 [facility] Comment on above: Performed By: #### 5 902-2 #### ALIVIA WALLACE ([id number]) [facility] ([facility] [address] [place] [address] 07387 MCH (RBC) [Entitic mass] 30.7 pg Normal 26.0-34.0 [facility] Comment on above: Performed By: #### 5 902-2 #### ALIVIA WALLACE ([id number]) [facility] ([facility]) [address] [place] [address] 24400 MCHC (RBC) [Mass/Vol] 31.3 g/dL Low 32.0-36.0 [facility] Comment on above: Performed By: #### 5 902-2 #### ALIVIA WALLACE ([id number]) [facility] [facility] [address] [place] [address] 79195 MCV (RBC) [Entitic vol] 98 fL Normal 80-100 [facility] Comment on above: Performed By: #### 5 902-2 #### ALIVIA WALLACE ([id number]) [facility] [address] [place] [address] 52345 Monocytes (Bld) [#/Vol] 0.40 x10*3/uL Normal 0.10-1.00 [facility] Comment on above: Performed By: #### 5 902-2 #### ALIVIA WALLACE ([id number]) [facility] [address] [place] [address] 49212 Monocytes/100 WBC (Bld) 5.6 % Normal 2.0-10.0 [facility] Comment on above: Performed By: #### 5 902-2 #### ALIVIA WALLACE ([id number]) [facility]) [address] [place] [address] 58184 Neutrophils (Bld) [#/Vol] 4.60 x10*3/uL Normal 1.20-7.70 [facility] Comment on above: Result Comment: Perc ent differential counts (%) should be interpreted in the context of the absolute cell counts (cells/uL). Performed By: #### 5 902-2 #### ALIVIA WALLACE ([id number]) [facility] ([facility] [address] [place] [address] 01932 Neutrophils/100 WBC (Bld) 64.3 % Normal 40.0-80.0 [facility] Comment on above: Performed By: #### 5 902-2 #### ALIVIA WALLACE ([id number]) [facility]) [address] [place] [address] 12753 Nucleated RBC/100 WBC (Bld) [Ratio] 0.0 /100 WBCs Normal 0.0-0.0 [facility] Comment on above: Performed By: #### 5 902-2 #### ALIVIA WALLACE ([id number]) [facility]) [address] [place] [address] 91134 Platelets (Bld) [#/Vol] 250 x10*3/uL Normal 150-450 [facility] Comment on above: Performed By: #### 5 902-2 #### ALIVIA WALLACE ([id number]) [facility]) [address] [place] [address] 56810 RBC (Bld) [#/Vol] 3.00 x10*6/uL Low 4.50-5.90 [facility] Comment on above: Performed By: #### 5 902-2 #### ALIVIA WALLACE ([id number]) [facility] [address] [place] [address] WBC (Bld) [#/Vol] 7.2 x10*3/uL Normal 4.4-11.3 [facility] Comment on above: Performed By: #### 5 902-2 #### SHAKIRIBELIMALISSA DERRICK KWONG ([id number]) [facility] [address] [place] [address] Extra Urine Arana TubeOrdered By: Michael Pizarro on 01-06-2025 Extra Tube [facility] Work Phone: [facility] Work Phone: HBV surface Ab Qn (S)on 12-18 Interpretation and review of laboratory results Abnormal [facility] HBV surface Ag IA Qlon 01-06 Interpretation and review of laboratory results Normal [facility] Hepatitis B surface antibody on 01-06-2025 HBV surface Ab Qn (S) 514.7 High [facility] Comment on above: Interpretive Criteri a: <10 mIU/mL Nonreactive >=10 mIU/mL Reactive Biotin interference may cause falsely decreased results. Patients taking a Biotin dose of up to 5 mg/day should refrain from taking Biotin for 24 hours before sample collection. Providers may contact their local laboratory for further information. The result suggests protective immunity to HBV infection, which may result from prior HBV vaccination, a blood transfusion, or recovery from an HBV infection. Hepatitis B surface antigeno n 01-06-2025 HBV surface Ag IA Ql Non-Reactive Nonreactive [facility] Comment on above: Biotin interference may cause falsely decreased results. Patients taking a Biotin dose of up to 5 mg/day should refrain from taking Biotin for 24 hours before sample collection. Providers may contact their local laboratory for further information. Magnesiumon 01-06-2025 Magnesium [Mass/Vol] 2.26 mg/dL 1.60 - 2.40 mg/dL [facility] Magnesium [Mass/Vol] 2.26 mg/dL Normal 1.60-2.40 [facility] Comment on above: Performed By: #### 5 902-2 #### ALIVIA WALLACE ([id number]) [facility]) [address] [place] [address] 01689 Magnesium [Mass/Vol]on 01-06 Interpretation and review of laboratory results Normal [facility] Phosphateon 01-06-2025 Phosphate [Mass/Vol] 6.2 mg/dL High 2.5-4.9 [facility] Comment on above: Performed By: #### 2 524-7 #### ALIVIA WALLACE ([id number]) [facility] ([facility]) [address] [place] [address] 10509 Phosphate [Mass/Vol]on 01-06 Interpretation and review of laboratory results Abnormal [facility] Phosphoruson 01-06-2025 Phosphate [Mass/Vol] 6.2 mg/dL High 2.5 - 4 .9 mg/dL [facility] Transferrinon 01-06-2025 Transferrin [Mass/Vol] 173 mg/dL Low 200 - 360 mg/dL [facility] Transferrin [Mass/Vol] 173 mg/dL Low 200-360 [facility] Comment on above: Performed By: #### 2 524-7 #### ALIVIA WALLACE ([id number]) [facility]) [address] [place] [address] 35869 Transferrin [Mass/Vol]on Interpretation and review of laboratory results Abnormal [facility] CBC W Auto Differential pane l (Bld)on 01-05-2025 Basophils (Bld) [#/Vol] 0.04 10*3/uL [facility] Basophils/100 WBC (Bld) 0.4 % 0.0 - 2.0 % [facility] Eosinophils (Bld) [#/Vol] 0.43 10*3/uL [facility] Eosinophils/100 WBC (Bld) 4.2 % 0.0 - 6.0 % [facility] Erythrocyte distribution width (RBC) [Ratio] 19.2 % High 11.5 - 14.5 % [facility] Hematocrit (Bld) [Volume fraction] 32.3 % Low 41.0 - 52.0 % [facility] Hemoglobin (Bld) [Mass/Vol] 10.2 g/dL Low 13.5 - 17.5 g/dL [facility] Immature granulocytes (Bld) [#/Vol] 0.04 10*3/uL [facility] Immature granulocytes/100 WBC (Bld) 0.4 % 0.0 - 0.9 % [facility] Comment on above: Immature Granulocyte Count (IG) includes promyelocytes, myelocytes and metamyelocytes but does not include bands. Percent differential counts (%) should be interpreted in the context of the absolute cell counts (cells/UL). Interpretation and review of laboratory results Abnormal [facility] Lymphocytes (Bld) [#/Vol] 1.85 10*3/uL [facility] Lymphocytes/100 WBC (Bld) 18.0 % 13.0 - 44.0 % [facility] MCH (RBC) [Entitic mass] 30.8 pg 26.0 - 34.0 pg [facility] MCHC (RBC) [Mass/Vol] 31.6 g/dL Low 32.0 - 36.0 g/dL [facility] MCV (RBC) [Entitic vol] 98 fL 80 - 100 fL [facility] Monocytes (Bld) [#/Vol] 0.44 10*3/uL [facility] Monocytes/100 WBC (Bld) 4.3 % 2.0 - 10.0 % [facility] Neutrophils (Bld) [#/Vol] 7.49 10*3/uL [facility] Comment on above: Percent differential counts (%) should be interpreted in the context of the absolute cell counts (cells/uL). Neutrophils/100 WBC (Bld) 72.7 % 40.0 - 80.0 % [facility] Nucleated RBC/100 WBC (Bld) [Ratio] 0.0 % [facility] Platelets (Bld) [#/Vol] 306 10*3/uL [facility] RBC (Bld) [#/Vol] 3.31 10*6/uL [facility] WBC (Bld) [#/Vol] 10.3 10*3/uL [facility] Basophils (Bld) [#/Vol] 0.04 x10*3/uL Normal 0.00-0.10 [facility] Comment on above: Performed By: #### 5 7021-8 #### ALIVIA WALLACE ([id number]) [facility] [address] [place] [address] 16246 Basophils/100 WBC (Bld) 0.4 % Normal 0.0-2.0 [facility] Comment on above: Performed By: #### 5 7021-8 #### ALIVIA WALLACE ([id number]) [facility]) [address] [place] [address] 70313 Eosinophils (Bld) [#/Vol] 0.43 x10*3/uL Normal 0.00-0.70 [facility] Comment on above: Performed By: #### 5 7021-8 #### ALIVIA WALLACE ([id number]) [facility]) [address] [place] [address] 25376 Eosinophils/100 WBC (Bld) 4.2 % Normal 0.0-6.0 [facility] Comment on above: Performed By: #### 5 7021-8 #### ALIVIA WALLACE ([id number]) [facility]) [address] [place] [address] 07496 Erythrocyte distribution width (RBC) [Ratio] 19.2 % High 11.5-14.5 [facility] Comment on above: Performed By: #### 5 7021-8 #### ALIVIA WALLACE ([id number]) [facility]) [address] [place] [address] 62282 Hematocrit (Bld) [Volume fraction] 32.3 % Low 41.0-52.0 [facility] Comment on above: Performed By: #### 5 7021-8 #### ALIVIA WALLACE ([id number]) [facility]) [address] [place] [address] 24571 Hemoglobin (Bld) [Mass/Vol] 10.2 g/dL Low 13.5-17.5 [facility] Comment on above: Performed By: #### 5 7021-8 #### ALIVIA WALLACE ([id number]) [facility]) [address] [place] [address] 89023 Immature granulocytes (Bld) [#/Vol] 0.04 x10*3/uL Normal 0.00-0.70 [facility] Comment on above: Performed By: #### 5 7021-8 #### ALIVIA WALLACE ([id number]) [facility] ([facility]) [address] [place] [address] 63629 Immature granulocytes/100 WBC (Bld) 0.4 % Normal 0.0-0.9 [facility] Comment on above: Result Comment: Litzy ture Granulocyte Count (IG) includes promyelocytes, myelocytes and metamyelocytes but does not include bands. Percent differential counts (%) should be interpreted in the context of the absolute cell counts (cells/UL). Performed By: #### 5 7021-8 #### ALIVIA WALLACE ([id number]) [facility]) [address] [place] [address] 54390 Lymphocytes (Bld) [#/Vol] 1.85 x10*3/uL Normal 1.20-4.80 [facility] Comment on above: Performed By: #### 5 7021-8 #### ALIVIA WALLACE ([id number]) [facility]) [address] [place] [address] 45571 Lymphocytes/100 WBC (Bld) 18.0 % Normal 13.0-44.0 [facility] Comment on above: Performed By: #### 5 7021-8 #### ALIVIA WALLACE ([id number]) [facility]) [address] [place] [address] 09650 MCH (RBC) [Entitic mass] 30.8 pg Normal 26.0-34.0 [facility] Comment on above: Performed By: #### 5 7021-8 #### ALIVIA WALLACE ([id number]) [facility] [address] [place] [address] MCHC (RBC) [Mass/Vol] 31.6 g/dL Low 32.0-36.0 [facility] Comment on above: Performed By: #### 5 7021-8 #### ALIVIA WALLACE ([id number]) [facility] [address] [place] [address] MCV (RBC) [Entitic vol] 98 fL Normal 80-100 [facility] Comment on above: Performed By: #### 5 7021-8 #### ALIVIA WALLACE ([id number]) [facility] [address] [place] [address] Monocytes (Bld) [#/Vol] 0.44 x10*3/uL Normal 0.10-1.00 [facility] Comment on above: Performed By: #### 5 7021-8 #### ALIVIA WALLACE ([id number]) [facility] [address] [place] [address] Monocytes/100 WBC (Bld) 4.3 % Normal 2.0-10.0 [facility] Comment on above: Performed By: #### 5 7021-8 #### ALIVIA WALLACE ([id number]) [facility]) [address] [place] [address] 47334 Neutrophils (Bld) [#/Vol] 7.49 x10*3/uL Normal 1.20-7.70 [facility] Comment on above: Result Comment: Perc ent differential counts (%) should be interpreted in the context of the absolute cell counts (cells/uL). Performed By: #### 5 7021-8 #### ALIVIA WALLACE ([id number]) [facility]) [address] [place] [address] Neutrophils/100 WBC (Bld) 72.7 % Normal 40.0-80.0 [facility] Comment on above: Performed By: #### 5 7021-8 #### ALIVIA WALLACE ([id number]) [facility]) [address] [place] [address] 19997 Nucleated RBC/100 WBC (Bld) [Ratio] 0.0 /100 WBCs Normal 0.0-0.0 [facility] Comment on above: Performed By: #### 5 7021-8 #### ALIVIA WALLACE ([id number]) [facility] [address] [place] [address] 93652 Platelets (Bld) [#/Vol] 306 x10*3/uL Normal 150-450 [facility] Comment on above: Performed By: #### 5 7021-8 #### ALIVIA WALLACE ([id number]) [facility]) [address] [place] [address] 86367 RBC (Bld) [#/Vol] 3.31 x10*6/uL Low 4.50-5.90 [facility] Comment on above: Performed By: #### 5 7021-8 #### ALIVIA WALLACE ([id number]) [facility] [address] [place] [address] 23181 WBC (Bld) [#/Vol] 10.3 x10*3/uL Normal 4.4-11.3 [facility] Comment on above: Performed By: #### 5 7021-8 #### ALIVIA WALLACE ([id number]) [facility] [address] [place] [address] ABDOMEN PELVIS WO IV CONT RASTon 01-05-2025 CT ABDOMEN PELVIS WO IV CONTRAST STUDY: CT Abdomen and Pelvis without IV Contrast; 01/05/2025, 12:45 PM INDICATION: Upper abdominal pain. COMPARISON: CT CAP 05/09/2023, 03/18/2022, CT AP 03/04/2022. ACCESSION NUMBER(S): [id number] ORDERING CLINICIAN: MEKHI WEEMS TECHNIQUE: CT of the abdomen and pelvis was performed. Contiguous axial images were obtained at 3 mm slice thickness through the abdomen and pelvis. Coronal and sagittal reconstructions at 3 mm slice thickness were performed. No intravenous contrast was administered. Automated mA/kV exposure control was utilized and patient examination was performed in strict accordance with principles of ALARA. FINDINGS: Please note that the evaluation of vessels, lymph nodes and organs is limited without intravenous contrast. LOWER CHEST: Normal heart size. Small to moderate-sized pericardial effusion. Small bilateral pleural effusions greater in size on the right than the left. Interstitial thickening of the lower lobes suggestive of mild pulmonary edema. ABDOMEN: LIVER: Liver is mildly enlarged possibly due to passive congestion. Smooth surface contour. Normal attenuation. BILE DUCTS: No intrahepatic or extrahepatic biliary ductal dilatation. GALLBLADDER: No calcified gallstones. Pericholecystic fluid likely related to the presence of minimal ascites. STOMACH: No abnormalities identified. PANCREAS: No masses or ductal dilatation. SPLEEN: No splenomegaly or focal splenic lesion. ADRENAL GLANDS: No thickening or nodules. KIDNEYS AND URETERS: Kidneys again noted to be small in size indicating chronic parenchymal renal disease. No renal or ureteral calculi. PELVIS: BLADDER: No abnormalities identified. REPRODUCTIVE ORGANS: No abnormalities identified. BOWEL: No abnormalities identified. VESSELS: No abnormalities identified. Abdominal aorta is normal in caliber. PERITONEUM/RETROPERITON EUM/LYMPH NODES: Minimal ascites. No pneumoperitoneum. No lymphadenopathy. ABDOMINAL WALL: No abnormalities identified. SOFT TISSUES: Diffuse edema of the subcutaneous tissues. BONES: No acute fracture or aggressive osseous lesion. IMPRESSION: Small to moderate-sized pericardial effusion. Small bilateral pleural effusions greater in size on the right than left. Mild pulmonary edema. Diffuse subcutaneous edema. Trace ascites. Mild hepatomegaly which may be due to passive congestion. Signed by Behzda Chicas MD [facility] CT Abdomen WO contraston Small to moderate-si zed pericardial effusion. Small bilateral pleural effusions greater in size on the right than left. Mild pulmonary edema. Diffuse subcutaneous edema. Trace ascites. Mild hepatomegaly which may be due to passive congestion. Signed by Behzad Chicas MD TELERADIOLOGY STUDY: CT Abdomen and Pelvis without IV Contrast; 01/05/2025, 12:45 PM INDICATION: Upper abdominal pain. COMPARISON: CT CAP 05/09/2023, 03/18/2022, CT AP 03/04/2022. ACCESSION NUMBER(S): [id number] ORDERING CLINICIAN: MEKHI WEEMS TECHNIQUE: CT of the abdomen and pelvis was performed. Contiguous axial images were obtained at 3 mm slice thickness through the abdomen and pelvis. Coronal and sagittal reconstructions at 3 mm slice thickness were performed. No intravenous contrast was administered. Automated mA/kV exposure control was utilized and patient examination was performed in strict accordance with principles of ALARA. FINDINGS: Please note that the evaluation of vessels, lymph nodes and organs is limited without intravenous contrast. LOWER CHEST: Normal heart size. Small to moderate-sized pericardial effusion. Small bilateral pleural effusions greater in size on the right than the left. Interstitial thickening of the lower lobes suggestive of mild pulmonary edema. ABDOMEN: LIVER: Liver is mildly enlarged possibly due to passive congestion. Smooth surface contour. Normal attenuation. BILE DUCTS: No intrahepatic or extrahepatic biliary ductal dilatation. GALLBLADDER: No calcified gallstones. Pericholecystic fluid likely related to the presence of minimal ascites. STOMACH: No abnormalities identified. PANCREAS: No masses or ductal dilatation. SPLEEN: No splenomegaly or focal splenic lesion. ADRENAL GLANDS: No thickening or nodules. KIDNEYS AND URETERS: Kidneys again noted to be small in size indicating chronic parenchymal renal disease. No renal or ureteral calculi. PELVIS: BLADDER: No abnormalities identified. REPRODUCTIVE ORGANS: No abnormalities identified. BOWEL: No abnormalities identified. VESSELS: No abnormalities identified. Abdominal aorta is normal in caliber. PERITONEUM/RETROPERITON EUM/LYMPH NODES: Minimal ascites. No pneumoperitoneum. No lymphadenopathy. ABDOMINAL WALL: No abnormalities identified. SOFT TISSUES: Diffuse edema of the subcutaneous tissues. BONES: No acute fracture or aggressive osseous lesion. TELERADIOLOGY Behzad Chicas MD - 01/05/2025 STUDY: CT Abdomen and Pelvis without IV Contrast; 01/05/2025, 12:45 PM INDICATION: Upper abdominal pain. COMPARISON: CT CAP 05/09/2023, 03/18/2022, CT AP 03/04/2022. ACCESSION NUMBER(S): [id number] ORDERING CLINICIAN: MEKHI WEEMS TECHNIQUE: CT of the abdomen and pelvis was performed. Contiguous axial images were obtained at 3 mm slice thickness through the abdomen and pelvis. Coronal and sagittal reconstructions at 3 mm slice thickness were performed. No intravenous contrast was administered. Automated mA/kV exposure control was utilized and patient examination was performed in strict accordance with principles of ALARA. FINDINGS: Please note that the evaluation of vessels, lymph nodes and organs is limited without intravenous contrast. LOWER CHEST: Normal heart size. Small to moderate-sized pericardial effusion. Small bilateral pleural effusions greater in size on the right than the left. Interstitial thickening of the lower lobes suggestive of mild pulmonary edema. ABDOMEN: LIVER: Liver is mildly enlarged possibly due to passive congestion. Smooth surface contour. Normal attenuation. BILE DUCTS: No intrahepatic or extrahepatic biliary ductal dilatation. GALLBLADDER: No calcified gallstones. Pericholecystic fluid likely related to the presence of minimal ascites. STOMACH: No abnormalities identified. PANCREAS: No masses or ductal dilatation. SPLEEN: No splenomegaly or focal splenic lesion. ADRENAL GLANDS: No thickening or nodules. KIDNEYS AND URETERS: Kidneys again noted to be small in size indicating chronic parenchymal renal disease. No renal or ureteral calculi. PELVIS: BLADDER: No abnormalities identified. REPRODUCTIVE ORGANS: No abnormalities identified. BOWEL: No abnormalities identified. VESSELS: No abnormalities identified. Abdominal aorta is normal in caliber. PERITONEUM/RETROPERITON EUM/LYMPH NODES: Minimal ascites. No pneumoperitoneum. No lymphadenopathy. ABDOMINAL WALL: No abnormalities identified. SOFT TISSUES: Diffuse edema of the subcutaneous tissues. BONES: No acute fracture or aggressive osseous lesion. IMPRESSION: Small to moderate-sized pericardial effusion. Small bilateral pleural effusions greater in size on the right than left. Mild pulmonary edema. Diffuse subcutaneous edema. Trace ascites. Mild hepatomegaly which may be due to passive congestion. Signed by Behzad Chicas MD [facility] Work Phone: Radiology Study observation (narrative) [facility] Work Phone: CT Abdomen WO contrastOrdere d By: Behzad Chicas on 01-05-2025 [facility] Work Phone: Coagulation tissue factor in ducedon 01-05-2025 PT Coag (PPP) [Time] 14.2 s High 9.8-12.4 [facility] Comment on above: Performed By: #### 5 902-2 #### ALIVIA WALLACE ([id number]) [facility] [address] [place] [address] Comprehensive metabolic 2000 panelon 01-05-2025 Albumin BCP dye [Mass/Vol] 4.4 g/dL 3.4 - 5.0 g/dL [facility] ALP [Catalytic activity/Vol] 62 U/L 33 - 120 U/L [facility] ALT With P-5'-P [Catalytic activity/Vol] 24 U/L 10 - 52 U/L [facility] Comment on above: Patients treated wit h Sulfasalazine may generate falsely decreased results for ALT. Anion gap [Moles/Vol] 24 mmol/L High 10 - 2 0 mmol/L [facility] AST With P-5'-P [Catalytic activity/Vol] 12 U/L 9 - 39 U/L [facility] Bilirubin [Mass/Vol] 0.9 mg/dL 0.0 - 1 .2 mg/dL [facility] Calcium [Mass/Vol] 9.8 mg/dL 8.6 - 10. 3 mg/dL [facility] Chloride [Moles/Vol] 95 mmol/L Low 98 - 10 7 mmol/L [facility] CO2 [Moles/Vol] 26 mmol/L 21 - 32 mmol/L [facility] Creatinine [Mass/Vol] 12.58 mg/dL High 0.50 - 1.30 mg/dL [facility] GFR/1.73 sq M.predicted among non-blacks MDRD (S/P/Bld) [Vol rate/Area] 5 mL/min/{1.73_m2} Low - PINF [facility] Comment on above: Calculations of gentry mated GFR are performed using the 2020 CKD-EPI Study Refit equation without the race variable for the IDMS-Traceable creatinine methods. https://jasn.asnjournals.org/content//ASN.716601 7726 Glucose [Mass/Vol] 90 mg/dL 74 - 99 mg/dL [facility] Interpretation and review of laboratory results Abnormal [facility] Potassium [Moles/Vol] 7.5 mmol/L Critically high 3.5 - 5.3 mmol/L [facility] Protein [Mass/Vol] 6.7 g/dL 6.4 - 8.2 g/dL [facility] Sodium [Moles/Vol] 137 mmol/L 136 - 145 mmol/L [facility] Urea nitrogen [Mass/Vol] 47 mg/dL High 6 - 23 mg/dL [facility] Albumin BCP dye [Mass/Vol] 4.4 g/dL Normal 3.4-5.0 [facility] Comment on above: Performed By: #### 2 4323-8 #### ALIVIA WALLACE ([id number]) [facility] [address] [place] [address] 30761 ALP [Catalytic activity/Vol] 62 U/L Normal 33-120 [facility] Comment on above: Performed By: #### 2 4323-8 #### ALIVIA WALLACE ([id number]) [facility] [address] [place] [address] 58188 ALT With P-5'-P [Catalytic activity/Vol] 24 U/L Normal 10-52 [facility] Comment on above: Result Comment: Lalita ents treated with Sulfasalazine may generate falsely decreased results for ALT. Performed By: #### 2 4323-8 #### ALIVIA WALLACE ([id number]) [facility] [address] [place] [address] 54908 Anion gap [Moles/Vol] 24 mmol/L High 10-20 [facility] Comment on above: Performed By: #### 2 4323-8 #### ALIVIA WALLACE ([id number]) [facility] [address] [place] [address] AST With P-5'-P [Catalytic activity/Vol] 12 U/L Normal 9-39 [facility] Comment on above: Performed By: #### 2 4323-8 #### ALIVIA WALLACE ([id number]) [facility] [address] [place] [address] 37045 Bilirubin [Mass/Vol] 0.9 mg/dL Normal 0.0-1.2 [facility] Comment on above: Performed By: #### 2 4323-8 #### LAIVIA WALLACE ([id number]) [facility] ([facility]) [address] [place] [address] 42250 Calcium [Mass/Vol] 9.8 mg/dL Normal 8.6-10.3 [facility] Comment on above: Performed By: #### 2 4323-8 #### SHAKIRIBELIMALISSA MEZALISSETH DORETHA ([id number]) [facility] ([facility]) [address] [place] [address] 76450 Chloride [Moles/Vol] 95 mmol/L Low 98-107 [facility] Comment on above: Performed By: #### 2 4323-8 #### ALIVIA WALLACE ([id number]) [facility] ([facility]) [address] [place] [address] 80949 CO2 [Moles/Vol] 26 mmol/L Normal 21-32 [facility] Comment on above: Performed By: #### 2 4323-8 #### SHAKIRIBDEBBY WALLACE ([id number]) [facility] ([facility]) [address] [place] [address] 46807 Creatinine [Mass/Vol] 12.58 mg/dL High 0.50-1.30 [facility] Comment on above: Performed By: #### 2 4323-8 #### SHAKIRIBDEBBY MEZA RIO DORETHA ([id number]) [facility] ([facility]) [address] [place] [address] 43665 Glomerular filtration rate 5 mL/min/1.73m*2 Low >60 [facility] Comment on above: Result Comment: Calc ulations of estimated GFR are performed using the 2020 CKD-EPI Study Refit equation without the race variable for the IDMS-Traceable creatinine methods. https://jasn.asnjournals.org/content//ASN.679198 2952 Performed By: #### 2 4323-8 #### ALIVIA WALLACE ([id number]) [facility] ([facility]) [address] [place] [address] Glucose [Mass/Vol] 90 mg/dL Normal 74-99 [facility] Comment on above: Performed By: #### 2 4323-8 #### SHAKIRIBDEBBY WALLACE ([id number]) [facility] ([facility]) [address] [place] [address] 31803 Potassium [Moles/Vol] 7.5 mmol/L Critically high 3.5-5.3 [facility] Comment on above: Performed By: #### 2 4323-8 #### SHAKIRIBDEBBY WALLACE ([id number]) [facility] ([facility]) [address] [place] [address] 69327 Protein [Mass/Vol] 6.7 g/dL Normal 6.4-8.2 [facility] Comment on above: Performed By: #### 2 4323-8 #### SHAKIRIBDEBBY WALLACE ([id number]) [facility] ([facility]) [address] [place] [address] 47324 Sodium [Moles/Vol] 137 mmol/L Normal 136-145 [facility] Comment on above: Performed By: #### 2 4323-8 #### SHAKIRIBDEBBY WALLACE ([id number]) [facility] ([facility]) [address] [place] [address] 86437 Urea nitrogen [Mass/Vol] 47 mg/dL High 6-23 [facility] Comment on above: Performed By: #### 2 4323-8 #### SHAKIRIBDEBBY MEZA RIO DORETHA ([id number]) [facility] ([facility]) [address] [place] [address] 35626 Critical Careon 01-05-2025 Juju Ramesh 01/05/2025 11:29 AM Critical Care Performed by: Carlos Hutchison MD Authorized by: Carlos Hutchison MD Critical care provider statement: Critical care time (minutes): 45 Critical care time was exclusive of: Separately billable procedures and treating other patients Critical care was necessary to treat or prevent imminent or life-threatening deterioration of the following conditions: Renal failure and Other (use comment box to enter another option) (Hyperkalemia) Critical care was time spent personally by me on the following activities: Blood draw for specimens, development of treatment plan with patient or surrogate, discussions with primary provider, evaluation of patient's response to treatment, examination of patient, obtaining history from patient or surrogate, ordering and performing treatments and interventions, ordering and review of laboratory studies, ordering and review of radiographic studies, re-evaluation of patient's condition and pulse oximetry Care discussed with: admitting provider [facility] Work Phone: [facility] Work Phone: ECG 12-LEADon 01-05-2025 ECG 12-LEAD Ventricular Rate 107 Atrial Rate 107 P-R Interval 164 QRS Duration 102 Q-T Interval 370 QTC Calculation(Bazett) 493 P [place] 61 R [place] 108 T [place] 59 QRS Count 17 Q Onset 214 P Onset 132 P Offset 192 T Offset 399 QTC Fredericia 448 Diagnosis Sinus tachycardia Possible Left atrial enlargement Rightward axis Borderline ECG When compared with ECG of 09-MAY-2023 17:04, QRS axis Shifted right See ED provider note for full interpretation and clinical correlation Confirmed by Vira West ([id number]) on 01/07/2025 3:20:36 PM Normal [facility] Ferritinon 01-05-2025 Ferritin [Mass/Vol] 4079 ng/mL High 20 - 300 ng/mL [facility] Ferritin [Mass/Vol] 4079 ng/mL High 20-300 [facility] Comment on above: Performed By: #### 5 902-2 #### ALIVIA WALLACE ([id number]) [facility] ([facility]) [address] [place] [address] 45433 Ferritin [Mass/Vol]on 2024 Interpretation and review of laboratory results Abnormal [facility] Glucose Test strip manual (B ld) [Mass/Vol]on 01-05-2025 Glucose [Mass/Vol] 75 mg/dL 74 - 99 mg/dL [facility] Interpretation and review of laboratory results Normal [facility] Glucose [Mass/Vol] 75 mg/dL Normal 74-99 [facility] Comment on above: Performed By: #### 2 341-6 #### ALIVIA WALLACE ([id number]) [facility] ([facility]) [address] [place] [address] Hepatitis B virus surface Ab on 01-05-2025 HBV surface Ab Qn (S) 514.7 mIU/mL High <10.0 U [facility] Comment on above: Result Comment: Inte rpretive Criteria: <10 mIU/mL Nonreactive >=10 mIU/mL Reactive Biotin interference may cause falsely decreased results. Patients taking a Biotin dose of up to 5 mg/day should refrain from taking Biotin for 24 hours before sample collection. Providers may contact their local laboratory for further information. The result suggests protective immunity to HBV infection, which may result from prior HBV vaccination, a blood transfusion, or recovery from an HBV infection. Performed By: #### 5 902-2 #### ALIVIA WALLACE ([id number]) [facility] ([facility]) [address] [place] [address] Hepatitis B virus surface Ag on 01-05-2025 HBV surface Ag IA Ql Non-Reactive Normal Nonreactive [facility] Comment on above: Result Comment: Biot in interference may cause falsely decreased results. Patients taking a Biotin dose of up to 5 mg/day should refrain from taking Biotin for 24 hours before sample collection. Providers may contact their local laboratory for further information. Performed By: #### 5 902-2 #### ALIVIA WALLACE ([id number]) [facility] ([facility]) [address] [place] [address] Influenza virus A and B and SARS-CoV-2 (COVID-19) identified MIGUEL+probe Nom (Resp)on 01-05-2025 FLUAV RNA MIGUEL+probe Ql (Resp) Not detected Not Detected [facility] FLUBV RNA MIGUEL+probe Ql (Resp) Not detected Not Detected [facility] Interpretation and review of laboratory results Normal [facility] SARS-CoV-2 (COVID-19) RNA MIGUEL+probe Ql (Resp) Not detected Not Detected [facility] This assay is an FDA-cleared, in vitro diagnostic nucleic acid amplification test for the qualitative detection and differentiation of SARS CoV-2/ Influenza A/B from nasopharyngeal specimens collected from individuals with signs and symptoms of respiratory tract infections, and has been validated for use at [facility]. Negative results do not preclude COVID-19/ Influenza A/B infections and should not be used as the sole basis for diagnosis, treatment, or other management decisions. Testing for SARS CoV-2 is recommended only for patients who meet current clinical and/or epidemiological criteria defined by federal, state, or local public health directives. [facility] FLUAV RNA MIGUEL+probe Ql (Resp) Not detected Normal Not Detected [facility] Comment on above: Order Comment: This assay is an FDA-cleared, in vitro diagnostic nucleic acid amplification test for the qualitative detection and differentiation of SARS CoV-2/ Influenza A/B from nasopharyngeal specimens collected from individuals with signs and symptoms of respiratory tract infections, and has been validated for use at [facility]. Negative results do not preclude COVID-19/ Influenza A/B infections and should not be used as the sole basis for diagnosis, treatment, or other management decisions. Testing for SARS CoV-2 is recommended only for patients who meet current clinical and/or epidemiological criteria defined by federal, state, or local public health directives. Performed By: #### 9 5423-0 #### ALIVIA WALLACE ([id number]) [facility] ([facility]) [address] [place] [address] FLUBV RNA MIGUEL+probe Ql (Resp) Not detected Normal Not Detected [facility] Comment on above: Order Comment: This assay is an FDA-cleared, in vitro diagnostic nucleic acid amplification test for the qualitative detection and differentiation of SARS CoV-2/ Influenza A/B from nasopharyngeal specimens collected from individuals with signs and symptoms of respiratory tract infections, and has been validated for use at [facility]. Negative results do not preclude COVID-19/ Influenza A/B infections and should not be used as the sole basis for diagnosis, treatment, or other management decisions. Testing for SARS CoV-2 is recommended only for patients who meet current clinical and/or epidemiological criteria defined by federal, state, or local public health directives. Performed By: #### 9 5423-0 #### ALIVIA WALLACE ([id number]) [facility] ([facility]) [address] [place] [address] SARS-CoV-2 (COVID-19) RNA MIGUEL+probe Ql (Resp) Not detected Normal Not Detected [facility] Comment on above: Order Comment: This assay is an FDA-cleared, in vitro diagnostic nucleic acid amplification test for the qualitative detection and differentiation of SARS CoV-2/ Influenza A/B from nasopharyngeal specimens collected from individuals with signs and symptoms of respiratory tract infections, and has been validated for use at [facility]. Negative results do not preclude COVID-19/ Influenza A/B infections and should not be used as the sole basis for diagnosis, treatment, or other management decisions. Testing for SARS CoV-2 is recommended only for patients who meet current clinical and/or epidemiological criteria defined by federal, state, or local public health directives. Performed By: #### 9 5423-0 #### ALIVIA WALLACE ([id number]) [facility] ([facility]) [address] [place] [address] 68579 Iron and Iron binding capaci ty panelon 01-05-2025 Interpretation and review of laboratory results Abnormal [facility] Iron [Mass/Vol] 39 ug/dL 35 - 150 ug/dL [facility] Iron binding capacity [Mass/Vol] 234 ug/dL Low 240 - 445 ug/dL [facility] Iron binding capacity.unsaturated [Mass/Vol] 195 ug/dL 110 - 370 ug/dL [facility] Iron saturation [Mass fraction] 17 % Low 25 - 45 % [facility] Iron [Mass/Vol] 39 ug/dL Normal 35-150 [facility] Comment on above: Performed By: #### 5 902-2 #### ALIVIA WALLACE ([id number]) [facility] ([facility]) [address] [place] [address] 81750 Iron binding capacity [Mass/Vol] 234 ug/dL Low 240-445 [facility] Comment on above: Performed By: #### 5 902-2 #### ALIVIA WALLACE ([id number]) [facility] ([facility]) [address] [place] [address] Iron binding capacity.unsaturated [Mass/Vol] 195 ug/dL Normal 110-370 [facility] Comment on above: Performed By: #### 5 902-2 #### ALIVIA WALLACE ([id number]) [facility] ([facility]) [address] [place] [address] 50639 Iron saturation [Mass fraction] 17 % Low 25-45 [facility] Comment on above: Performed By: #### 5 902-2 #### ALIVIA WALLACE ([id number]) [facility] ([facility]) [address] [place] [address] 04705 LDH Lactate to pyruvate reac tion [Catalytic activity/Vol]on 01-05-2025 Interpretation and review of laboratory results Normal [facility] Lactateon 01-05-2025 Lactate [Moles/Vol] 1.4 mmol/L 0.4 - 2. 0 mmol/L [facility] Lactate [Moles/Vol] 1.4 mmol/L Normal 0.4-2.0 [facility] Comment on above: Order Comment: Venip uncture immediately after or during the administration of Metamizole may lead to falsely low results. Testing should be performed immediately prior to Metamizole dosing. Performed By: #### 2 524-7 #### ALIVIA WALLACE ([id number]) [facility] ([facility]) [address] [place] [address] 17803 Lactate Dehydrogenaseon 12-18 LDH Lactate to pyruvate reaction [Catalytic activity/Vol] 207 U/L 84 - 246 U/L [facility] Lactate [Moles/Vol]on 2024 Interpretation and review of laboratory results Normal [facility] Venipuncture immediately after or during the administration of Metamizole may lead to falsely low results. Testing should be performed immediately prior to Metamizole dosing. [facility] Lactate dehydrogenaseon 12-18 LDH Lactate to pyruvate reaction [Catalytic activity/Vol] 207 U/L Normal 84-246 [facility] Comment on above: Performed By: #### 5 902-2 #### ALIVIA WALLACE ([id number]) [facility] ([facility]) [address] [place] [address] 37104 Lipaseon 01-05-2025 Lipase [Catalytic activity/Vol] 21 U/L 9 - 82 U/L [facility] Lipase [Catalytic activity/V ol]on 01-05-2025 Interpretation and review of laboratory results Normal [facility] Venipuncture immediately after or during the administration of Metamizole may lead to falsely low results. Testing should be performed immediately prior to Metamizole dosing. [facility] PT Coag (PPP) [Time]on 01-05 INR Coag (PPP) [Relative time] 1.3 {INR} High 0.9 - 1.1 [facility] Interpretation and review of laboratory results Abnormal [facility] INR Coag (PPP) [Relative time] 1.3 High 0.9-1.1 [facility] Comment on above: Performed By: #### 5 902-2 #### ALIVIA WALLACE ([id number]) [facility] ([facility]) [address] [place] [address] 34257 Potassiumon 01-05-2025 Potassium [Moles/Vol] 5.7 mmol/L High 3.5 - 5.3 mmol/L [facility] Potassium [Moles/Vol] 5.7 mmol/L High 3.5-5.3 [facility] Comment on above: Performed By: #### 2 823-3 #### ALIVIA WALLACE ([id number]) [facility] ([facility]) [address] [place] [address] 03450 Potassium [Moles/Vol]on 12-18 Interpretation and review of laboratory results Abnormal [facility] Protime-INRon 01-05-2025 PT Coag (PPP) [Time] 14.2 s High [facility] Reticulocytes panel (Bld)on 01-05-2025 Hemoglobin (Reticulocytes) [Entitic mass] 31 pg 28 - 38 pg [facility] Immature Retic fraction 20.1 % High NINF - 16.0 % [facility] Comment on above: Reticulocytes are me asured based on a fluorescent technique. The IRF, or immature reticulocyte fraction, is the percent of reticulocytes that show medium (MFR) or high (HFR) fluorescence. This value can be used to assess the relative maturity of the reticulocyte population in response to anemia. The "shift reticulocytes" are not measured by this technique, eliminating the need for their correction in the reticulocyte index. Interpretation and review of laboratory results Abnormal [facility] Reticulocytes (Bld) [#/Vol] 0.123 10*3/uL High [facility] Reticulocytes/100 RBC (Bld) 3.7 % High 0.5 - 2.0 % [facility] Hemoglobin (Reticulocytes) [Entitic mass] 31 pg Normal 28-38 [facility] Comment on above: Performed By: #### 5 0262-5 #### ALIVIA WALLACE ([id number]) [facility] ([facility]) [address] [place] [address] 42938 IMMATURE RETIC FRACTION 20.1 % High <=16.0 [facility] Comment on above: Result Comment: Reti culocytes are measured based on a fluorescent technique. The IRF, or immature reticulocyte fraction, is the percent of reticulocytes that show medium (MFR) or high (HFR) fluorescence. This value can be used to assess the relative maturity of the reticulocyte population in response to anemia. The "shift reticulocytes" are not measured by this technique, eliminating the need for their correction in the reticulocyte index. Performed By: #### 5 0262-5 #### ALIVIA WALLACE ([id number]) [facility] ([facility]) [address] [place] [address] 78929 Reticulocytes (Bld) [#/Vol] 0.123 x10*6/uL High 0.022-0.118 [facility] Comment on above: Performed By: #### 5 0262-5 #### ALIVIA WALLACE ([id number]) [facility] ([facility]) [address] [place] [address] 55448 Reticulocytes/100 RBC (Bld) 3.7 % High 0.5-2.0 [facility] Comment on above: Performed By: #### 5 0262-5 #### ALIVIA WALLACE ([id number]) [facility] ([facility]) [address] [place] [address] 34183 Triacylglycerol lipaseon Lipase [Catalytic activity/Vol] 21 U/L Normal 9-82 [facility] Comment on above: Order Comment: Venip uncture immediately after or during the administration of Metamizole may lead to falsely low results. Testing should be performed immediately prior to Metamizole dosing. Performed By: #### 3 040-3 #### ALIVIA WALLACE ([id number]) [facility] ([facility]) [address] [place] [address] 70803 Urinalysis complete W Reflex Culture panel (U)on 01-05-2025 Appearance (U) Clear Clear [facility] Bilirubin (U) [Mass/Vol] Negative NEGATIVE mg/dL [facility] Color (U) Light-Yellow Light-Yellow , Yellow, Dark-Yellow [facility] Glucose Auto test strip (U) [Mass/Vol] 100 (1+) Abnormal Normal mg/dL [facility] Interpretation and review of laboratory results Abnormal [facility] Ketones (U) [Mass/Vol] Negative NEGATIVE mg/dL [facility] Leukocyte esterase Auto test strip Ql (U) Negative NEGATIVE [facility] Nitrite Auto test strip Ql (U) Negative NEGATIVE [facility] pH (U) 8.0 [pH] 5.0, 5.5, 6.0, 6.5, 7.0, 7.5, 8.0 [facility] Protein (U) [Mass/Vol] 300 (3+) Abnormal NEGATIVE, 10 (TRACE), 20 (TRACE) mg/dL [facility] RBC (U) [#/Vol] 0.06 (1+) Abnormal NEGATIVE mg/dL [facility] RBC Auto (Urine sed) [#/Area] 11-20 Abnormal NONE, 1-2, 3-5 /HPF [facility] Specific gravity (U) [Rel density] 1.010 1.005 - 1.035 [facility] Urobilinogen (U) [Mass/Vol] Normal Normal mg/dL [facility] WBC Auto (Urine sed) [#/Area] 1-5 1-5, NONE /HPF [facility] Appearance (U) Clear Normal Clear [facility] Comment on above: Performed By: #### 5 902-2 #### ALIVIA WALLACE ([id number]) [facility] ([facility]) [address] [place] [address] 06053 Bilirubin (U) [Mass/Vol] Negative Normal NEGATIVE [facility] Comment on above: Performed By: #### 5 902-2 #### ALIVIA WALLACE ([id number]) [facility] ([facility]) [address] [place] [address] 04644 Color (U) Light-Yellow Normal Light-Yellow , Yellow, Dark-Yellow [facility] Comment on above: Performed By: #### 5 902-2 #### ALIVIA WALLACE ([id number]) [facility] ([facility]) [address] [place] [address] 83768 Glucose Auto test strip (U) [Mass/Vol] 100 (1+) Abnormal Normal [facility] Comment on above: Performed By: #### 5 902-2 #### ALIVIA WALLACE ([id number]) [facility] ([facility]) [address] [place] [address] 18379 Ketones (U) [Mass/Vol] Negative Normal NEGATIVE [facility] Comment on above: Performed By: #### 5 902-2 #### ALIVIA WALLACE ([id number]) [facility] ([facility]) [address] [place] [address] 78432 Leukocyte esterase Auto test strip Ql (U) Negative Normal NEGATIVE [facility] Comment on above: Performed By: #### 5 902-2 #### ALIVIA WALLACE ([id number]) [facility] ([facility]) [address] [place] [address] 81836 Nitrite Auto test strip Ql (U) Negative Normal NEGATIVE [facility] Comment on above: Performed By: #### 5 902-2 #### ALIVIA WALLACE ([id number]) [facility] ([facility]) [address] [place] [address] 33065 pH (U) 8.0 [pH] Normal 5.0, 5.5, 6.0, 6.5, 7.0, 7.5, 8.0 [facility] Comment on above: Performed By: #### 5 902-2 #### ALIVIA WALLACE ([id number]) [facility] ([facility]) [address] [place] [address] 54982 Protein (U) [Mass/Vol] 300 (3+) Abnormal NEGATIVE, 10 (TRACE), 20 (TRACE) [facility] Comment on above: Performed By: #### 5 902-2 #### ALIVIA WALLACE ([id number]) [facility] ([facility]) [address] [place] [address] 83375 RBC (U) [#/Vol] 0.06 (1+) Abnormal NEGATIVE [facility] Comment on above: Performed By: #### 5 902-2 #### ALIVIA WALLACE ([id number]) [facility] ([facility]) [address] [place] [address] 19654 RBC Auto (Urine sed) [#/Area] 11-20 Abnormal NONE, 1-2, 3-5 [facility] Comment on above: Performed By: #### 5 902-2 #### ALIVIA WALLACE ([id number]) [facility] ([facility]) [address] [place] [address] 75728 Specific gravity (U) [Rel density] 1.010 Normal 1.005-1.035 [facility] Comment on above: Performed By: #### 5 902-2 #### ALIVIA WALLACE ([id number]) [facility] ([facility]) [address] [place] [address] 17266 Urobilinogen (U) [Mass/Vol] Normal Normal Normal [facility] Comment on above: Performed By: #### 5 902-2 #### ALIVIA WALLACE ([id number]) [facility] ([facility]) [address] [place] [address] WBC Auto (Urine sed) [#/Area] 1-5 Normal 1-5, NONE [facility] Comment on above: Performed By: #### 5 902-2 #### ALIVIA WALLACE ([id number]) [facility] ([facility]) [address] [place] [address] 99992 Absolute lymphocyte countOrd ered By: Bing Birmingham on 10-14-2024 Lymphocytes Auto (Unsp spec) [#/Vol] 1.92 10*3/uL 0.83-4.51 [facility] Absolute neutrophil countOrd ered By: Bing Birmingham on 10-14-2024 Neutrophils (Bld) [#/Vol] 5.5 10*3/uL 2.0-7.7 [facility] Anion gap in Serum or Plasma Ordered By: Bing Birmingham on 10-14-2024 Anion gap [Moles/Vol] 16 mmol/L High 5-15 [facility] Automated lymphocyte count a s percentage of total leukocytesOrdered By: Bing Birmingham on 10-14-2024 Lymphocytes/100 WBC Auto (Unsp spec) 22.1 % 19-41 [facility] BUN/creatinine ratioOrdered By: Bign Birmingham on 10-14-2024 Urea nitrogen/Creatinine [Mass ratio] 3.7 mg/mg Low 10-20 [facility] Basophil percentageOrdered B y: Bing Birmingham on 10-14-2024 Basophils/100 WBC (Bld) 0.3 % 0-1 [facility] Bilirubin, totalOrdered By: Bing Birmingham on 10-14-2024 Bilirubin [Mass/Vol] 0.41 mg/dL 0.00-1.30 [facility] CBC W/Diff, Automatedon 09-17 Absolute Lymph 1.92 X10 3/uL Normal 0.83-4.51 [facility] Comment on above: Performed By: #### L 500.4050, L501.2300, L100.0100, L501.5200 #### [facility] [address] [place], [address] Absolute Neut 5.5 X10 3/uL Normal 2.0-7.7 [facility] Comment on above: Performed By: #### L 500.4050, L501.2300, L100.0100, L501.5200 #### [facility] [address] [place], [address] Basophils/100 WBC (Bld) 0.3 % Normal 0-1 [facility] Comment on above: Performed By: #### L 500.4050, L501.2300, L100.0100, L501.5200 #### [facility] [address] [place], [address] Eosinophils/100 WBC (Bld) 7.9 % High 0-5 [facility] Comment on above: Performed By: #### L 500.4050, L501.2300, L100.0100, L501.5200 #### [facility] [address] [place], [address] Erythrocyte distribution width (RBC) [Ratio] 16.0 % High 11.6-14.6 [facility] Comment on above: Performed By: #### L 500.4050, L501.2300, L100.0100, L501.5200 #### [facility] [address] [place], [address] Hematocrit (Bld) [Volume fraction] 27.5 % Low 40-54 [facility] Comment on above: Performed By: #### L 500.4050, L501.2300, L100.0100, L501.5200 #### [facility] [address] [place], [address] Hemoglobin (Bld) [Mass/Vol] 8.9 g/dL Low 13.0-16.5 [facility] Comment on above: Performed By: #### L 500.4050, L501.2300, L100.0100, L501.5200 #### [facility] [address] [place], [address] IG% 0.200 Normal 0.0-0.9 [facility] Comment on above: Result Comment: IG% - Immature Granulocytes (promyelocytes, myelocytes and metamyelocytes) > 1% indicates that a LEFT SHIFT is Present. Performed By: #### L 500.4050, L501.2300, L100.0100, L501.5200 #### [facility] [address] [place], [address] Lymphocytes/100 WBC (Bld) 22.1 % Normal 19-41 [facility] Comment on above: Performed By: #### L 500.4050, L501.2300, L100.0100, L501.5200 #### [facility] [address] [place], [address] MCH (RBC) [Entitic mass] 31.8 pg Normal 27.0-32.0 [facility] Comment on above: Performed By: #### L 500.4050, L501.2300, L100.0100, L501.5200 #### [facility] [address] [place], [address] MCHC (RBC) [Mass/Vol] 32.4 g/dL Normal 32-36 [facility] Comment on above: Performed By: #### L 500.4050, L501.2300, L100.0100, L501.5200 #### [facility] [address] [place], [address] MCV (RBC) [Entitic vol] 98.2 fL High 80-94 [facility] Comment on above: Performed By: #### L 500.4050, L501.2300, L100.0100, L501.5200 #### [facility] [address] [place], [address] Monocytes/100 WBC (Bld) 6.1 % Normal 0-10 [facility] Comment on above: Performed By: #### L 500.4050, L501.2300, L100.0100, L501.5200 #### [facility] [address] [place], [address] Neutrophils/100 WBC (Bld) 63.4 % Normal 47-70 [facility] Comment on above: Performed By: #### L 500.4050, L501.2300, L100.0100, L501.5200 #### [facility] [address] [place], [address] Nucleated RBC (Bld) [#/Vol] 0 10*3/uL Normal 0-5 [facility] Comment on above: Performed By: #### L 500.4050, L501.2300, L100.0100, L501.5200 #### [facility] [address] [place], [address] Platelet mean volume (Bld) [Entitic vol] 9.4 fL Normal 6.2-12.0 [facility] Comment on above: Performed By: #### L 500.4050, L501.2300, L100.0100, L501.5200 #### [facility] [address] [place], [address] Platelets (Bld) [#/Vol] 231 10*3/uL Normal 150-450 [facility] Comment on above: Performed By: #### L 500.4050, L501.2300, L100.0100, L501.5200 #### [facility] [address] [place], [address] RBC (Bld) [#/Vol] 2.80 10*6/uL Low 4.6-6.2 [facility] Comment on above: Performed By: #### L 500.4050, L501.2300, L100.0100, L501.5200 #### [facility] [address] [place], [address] RDW SD 56.3 fl High 35.1-43.9 [facility] Comment on above: Performed By: #### L 500.4050, L501.2300, L100.0100, L501.5200 #### [facility] [address] [place], [address] WBC (Bld) [#/Vol] 8.7 10*3/uL Normal 4.4-11.0 [facility] Comment on above: Performed By: #### L 500.4050, L501.2300, L100.0100, L501.5200 #### [facility] [address] [place], [address] Carbon dioxide, total [Moles /volume] in Central venous bloodOrdered By: Bing Birmingham on 10-14-2024 CO2 [Moles/Vol] 22.2 mmol/L 21.0-32.0 [facility] Chloride assayOrdered By: Jose M Birmingham on 10-14-2024 Chloride [Moles/Vol] 100 mmol/L 98-108 [facility] Comprehensive Metabolic Prof ilon 10-14-2024 Albumin [Mass/Vol] 3.7 g/dL Normal 3.5-5.0 [facility] Comment on above: Performed By: #### L 500.4050, L501.2300, L100.0100, L501.5200 #### [facility] [address] [place], [address] Albumin/Globulin [Mass ratio] 1.9 {ratio} Normal 0.9-2.4 [facility] Comment on above: Performed By: #### L 500.4050, L501.2300, L100.0100, L501.5200 #### [facility] [address] [place], [address] ALK PHOS 70 U/L Normal 40-129 [facility] Comment on above: Performed By: #### L 500.4050, L501.2300, L100.0100, L501.5200 #### [facility] [address] [place], [address] ALT [Catalytic activity/Vol] 10 U/L Normal <=46 [facility] Comment on above: Performed By: #### L 500.4050, L501.2300, L100.0100, L501.5200 #### [facility] [address] [place], [address] AST [Catalytic activity/Vol] 8 U/L Normal <=37 [facility] Comment on above: Performed By: #### L 500.4050, L501.2300, L100.0100, L501.5200 #### [facility] [address] [place], [address] Bilirubin [Mass/Vol] 0.41 mg/dL Normal 0.00-1.30 [facility] Comment on above: Performed By: #### L 500.4050, L501.2300, L100.0100, L501.5200 #### [facility] [address] [place], [address] BUN/CRE 3.7 RATIO Low 10-20 [facility] Comment on above: Performed By: #### L 500.4050, L501.2300, L100.0100, L501.5200 #### [facility] [address] [place], [address] Calcium [Mass/Vol] 9.1 mg/dL Normal 7.6-11.0 [facility] Comment on above: Performed By: #### L 500.4050, L501.2300, L100.0100, L501.5200 #### [facility] [address] [place], [address] Chloride [Moles/Vol] 100 mmol/L Normal 98-108 [facility] Comment on above: Performed By: #### L 500.4050, L501.2300, L100.0100, L501.5200 #### [facility] [address] [place], [address] CO2 [Moles/Vol] 22.2 mmol/L Normal 21.0-32.0 [facility] Comment on above: Performed By: #### L 500.4050, L501.2300, L100.0100, L501.5200 #### [facility] [address] [place], [address] Creatinine [Mass/Vol] 10.10 mg/dL Invalid Interpretation Code 0.70-1.20 [facility] Comment on above: Result Comment: Crit ical Result(s) Called at:0632 by: LAKIA PISANO TO JOHNNA FERNANDEZ??Results read back by same. Performed By: #### L 500.4050, L501.2300, L100.0100, L501.5200 #### [facility] [address] [place], [address] ECRCL 11.54 ml/min Low 50-250 [facility] Comment on above: Performed By: #### L 500.4050, L501.2300, L100.0100, L501.5200 #### [facility] [address] [place], [address] GAP 16 High 5-15 [facility] Comment on above: Performed By: #### L 500.4050, L501.2300, L100.0100, L501.5200 #### [facility] [address] [place], [address] GFR/1.73 sq M.predicted among non-blacks MDRD (S/P/Bld) [Vol rate/Area] 7 mL/min/{1.73_m2} Low >60 [facility] Comment on above: Result Comment: mL/m in/1.73m2 CKD-EPI Creatinine Equation (2020) Performed By: #### L 500.4050, L501.2300, L100.0100, L501.5200 #### [facility] [address] [place], [address] Globulin (S) [Mass/Vol] 2.0 g/dL Low 2.2-4.2 [facility] Comment on above: Performed By: #### L 500.4050, L501.2300, L100.0100, L501.5200 #### [facility] [address] [place], [address] Glucose [Mass/Vol] 93 mg/dL Normal 70-99 [facility] Comment on above: Performed By: #### L 500.4050, L501.2300, L100.0100, L501.5200 #### [facility] [address] [place], [address] Potassium [Moles/Vol] 5.8 mmol/L High 3.3-5.1 [facility] Comment on above: Performed By: #### L 500.4050, L501.2300, L100.0100, L501.5200 #### [facility] [address] [place], [address] Sodium [Moles/Vol] 138 mmol/L Normal 133-145 [facility] Comment on above: Performed By: #### L 500.4050, L501.2300, L100.0100, L501.5200 #### [facility] [address] [place], [address] T PROT 5.7 g/dL Low 5.9-8.4 [facility] Comment on above: Performed By: #### L 500.4050, L501.2300, L100.0100, L501.5200 #### [facility] [address] [place], [address] Urea nitrogen [Mass/Vol] 38 mg/dL High 4-19 [facility] Comment on above: Performed By: #### L 500.4050, L501.2300, L100.0100, L501.5200 #### [facility] [address] [place], [address] Consultation - Nephrologyon 10-14-2024 Consultation - Nephrology [facility] Medical Records Department [address] [place] [address] Consultation - Nephrology 10/14/24 1019 MR#: [id number] Acct: [id number] Name: LAWSON DOYLE Rep #: [id number] : 2000 From: Segundo WHITAKER PCP: Care Physician,No Primary Status:DIS KEYANNA Location: [place] [address] Assessment Plan Assessment/Plan (1) ESRD (end stage renal disease): (2) Hyperkalemia: (3) Hypoxia: PLAN: Plan This is a 24-year-old male with past medical history significant for ESRD on hemodialysis Sunday schedule, admitted to the hospital for shortness of breath, hypoxia. Patient did undergo hemodialysis yesterday and tolerated around 4.7 L fluid removal. There is no acute indication for [employer] today. Potassium mildly elevated, patient is on renal diet and reviewed with patient importance of avoiding and/or limiting potassium rich foods. If patient remains in hospital overnight we will plan for dialysis tomorrow over 4 hours on 2K bath. Patient will have a new lowered EDW at kidney center. Breathing has improved, patient is on room air this morning. Blood pressures mildly elevated, amlodipine was added. Will attempt to remove fluid with hemodialysis, challenge dry weight and may see further improvement in blood pressures. Further orders forthcoming as hospitalization evolves, thank you for allowing us participate in the care of Mr. Doyle. Assessment and plan reviewed with Dr. Armas. HPI Consult Data Date of Consult: 10/14/24 HPI Narrative HPI Narrative: LAWSON DOYLE, is a 24 M with a past medical history significant for ESRD who is on hemodialysis at [facility] Sunday, presented to the emergency room yesterday with complaints of shortness of breath. Recently diagnosed with pneumonia. In the emergency room oxygen saturation dropped mid 80% when patient was ambulating therefore, chest x-ray showed mild degree of vascular congestion and CHF; patient was admitted for further evaluation and treatment. Patient did undergo hemodialysis yesterday in hospital and tolerated around 4.5 L fluid removal. Today patient reports breathing has improved. He is on room air. He denies any complaints. [facility] Medical History (Updated 10/14/24 @ 10:22 by SHERMAN Anthony) Chronic anemia AV fistula Kidney disease Former smoker Hypertension Dialysis patient Arteriovenous fistula of right upper extremity Alports syndrome Home Medications ???Medication ???Instructions ???Recorded ???Last Taken ???Type carvedilol 12.5 mg tablet 12.5 mg PO BID 02/11/24 10/12/24 H istory cinacalcet 30 mg tablet 30 mg PO QPM 02/11/24 Unknown Hist ory losartan 100 mg tablet 100 mg PO DAILY 02/11/24 10/12/24 History sevelamer carbonate 800 mg tablet 800 mg PO TID 02/11/24 10/12/24 H istory vit B,C-folic ac 800 mcg-zinc 12.5 1 tab PO DAILY 02/11/24 10/12/24 History mg-selen-D3 2,000 unit-vit E tablet (RenaPlex-D) albuterol sulfate 90 mcg/actuation 1 - 2 puff inhalation Q4H PRN TN N 10/03/24 Unknown Rx aerosol inhaler (Ventolin HFA) Wheezing #1 inh lanthanum 1,000 mg chewable tablet 1,000 mg PO TID 10/03/24 5 History Allergy/AdvReac Type Severity Reaction Status Date / Time No Known Allergies Allergy Verified 10/13/24 08:14 Family History no significant family his Surgical History no surgical history Social History (Updated 10/13/24 @ 16:[address] Bing Birmingham, DO) household members: family housing: house Smoking Status: Former smoker alcohol intake: never substance use type: does not use ROS ROS Narrative As in HPI Physical Exam Narrative Alert and oriented x 3, no apparent distress S1, S2, RRR Lungs sound clear anteriorly, no rales or rhonchi, diminished breath sounds posterior bases. On room air. Abdomen soft, nontender No pitting edema AV fistula positive thrill and bruit Lab / Micro Data 10/14/24 05:58 10/14/24 08:35 Labs: Laboratory Results - last 24 hr 10/14/24 05:58: WBC 8.7, RBC 2.80 L, Hgb 8.9 L, Hct 27.5 L, MCV 98.2 H, MCH 31.8, MCHC 32.4, RDW Std Deviation 56.3 H, RDW Coeff of Mono 16.0 H, Plt Count 231, MPV 9.4, Immature Gran % (Auto) 0.200, Neut % (Auto) 63.4, Lymph % (Auto) 22.1, Kent % (Auto) 6.1, Eos % (Auto) 7.9 H, Baso % (Auto) 0.3, Absolute Neuts (auto) 5.5, Absolute Lymphs (auto) 1.92, Nucleated RBC % 0, Sodium 138, Potassium 5.8 H, Chloride 100, Carbon Dioxide 22.2, Anion Gap 16 H, BUN 38 H, Creatinine 10.10 H*, Estim Creat Clear Calc 11.54 L, Est GFR (MDRD) Non-Af 7 L, BUN/Creatinine Ratio 3.7 L, Glucose 93, Calcium 9.1, Phosphorus 6.6 H, Magnesium 2.5 H, Total Bilirubin 0.41, AST 8, ALT 10, Alkaline Phosphatase 70, T otal Protein 5.7 L, Albumin 3.7, Globulin 2.0 L, Albumin/Globulin Ratio 1.9 10/14/24 08:35: Potassium 5.6 (more content not included)... Normal [facility] Echocardiogram study reportO rdered By: Juan Stacy on 10-14-2024 Study report [facility] [address] [place] [address] Echo Complete 10/14/24 0846 MR#: [id number] Acct: [id number] Name: LAWSON DOYLE Rep #:[id number] : 2000 From: Juan Abreu Attending Dr: Dr. Bing Birmingham DO S tatus: ADM KEYANNA Ordering Dr: Bing Birmingham DO Date: Location: [facility] Sex: M C Admitted: 10/13/24 Reason For Study Reason For Study: Dyspnea/SOB Procedure This was a 2D Doppler, Color Flow transthoracic echocardiogram. Myocardial strain analysis was performed in this exam to aid in the assessment of cardiac function. Exam performed portable in patient room. Left Ventricle Normal LV size. Mild concentric left ventricular hypertrophy. The global longitudinal strain = -15.7% (abnormal). The left ventricular ejection fraction is 50 %. Right Ventricle Normal RV size. Normal systolic function. Atria Normal left atrium. Normal right atrium. Mitral Valve Normal mitral valve. Mild (1+) eccentric mitral valve insufficiency. Tricuspid Valve Normal tricuspid valve. Mild (1+) tricuspid valve insufficiency. Pulmonary artery systolic pressure is 48 mmHg. Aortic Valve Trisinus/trileaflet aortic valve. Pulmonic Valve Normal pulmonic valve. Great Vessels Normal aortic root. The pulmonary artery is normal size. Inferior vena cava collapse with respiration. Pericardium/Pleural No pericardial effusion. MMode/2D Measurements & Calculations LVIDd: 5.0 cm IVSd: 1.3 cm Ao root diam: 3.2 cm LVIDs: 3.7 cm LVPWd: 1.3 cm RVDd: 4.1 cm FS: 25.9 % LAV(MOD-bp): 67.1 ml LVAd ap4: 38.3 cm2 SV(MOD-sp4): 68.9 ml LAV(MOD-bp) Indexed: 33.6 ml/m2 LVLd ap4: 8.7 cm SI(MOD-sp4): 34.5 ml/m2 LAV(MOD-sp2): 65.7 ml EDV(MOD-sp4): 137.0 ml LAV(MOD-sp4): 58.5 ml EDV(sp4-el): 143.8 ml LVAs ap4: 24.3 cm2 LVLs ap4: 7.2 cm ESV(MOD-sp4): 68.1 ml ESV(sp4-el): 69.4 ml EF(MOD-sp4): 50.3 % EF(sp4-el): 51.8 % SV(sp4-el): 74.5 ml LA A4 area: 20.8 cm2 LA dimension(2D): 3.9 cm RA A4 area: 16.1 cm2 TAPSE: 2.2 cm Time Measurements MV dec time: 0.17 sec Doppler Measurements & Calculations MV E max bhavana: 124.2 cm/sec Lat Peak E' Bhavana: 11.3 cm/sec Med Peak E' Bhavana: 9.3 cm/sec MV A max bhavana: 76.2 cm/sec E/E' lat: 11.0 E/E' med: 13.4 MV E/A: 1.6 MV V2 max: 161.1 cm/sec Ao V2 max: 175.2 cm/sec MV max P.4 mmHg MV dec slope: 722.3 cm/sec2 Ao max P.3 mmHg MV V2 mean: 108.8 cm/sec Ao V2 mean: 123.0 cm/sec MV mean P.5 mmHg Ao mean P.9 mmHg MV V2 VTI: 26.7 cm Ao V2 VTI: 29.7 cm AV (velocity ratio): 0.89 LV V1 max: 162.0 cm/sec MR max bhavana: 524.1 cm/sec PA V2 max: 131.7 cm/sec LV V1 max P.5 mmHg MR max P.9 mmHg PA V2 mean: 96.1 cm/sec LV V1 mean P.4 mmHg MR mean bhavana: 421.0 cm/sec LV V1 mean: 107.7 cm/sec MR mean P.6 mmHg LV V1 VTI: 26.5 cm MR VTI: 154.0 cm TR max bhavana: 333.1 cm/sec TR max P.4 mmHg ECHO/Echo Complete Interpretation Summary Normal LV size. Mild concentric left ventricular hypertrophy. The global longitudinal strain = -15.7% (abnormal). The left ventricular ejection fraction is 50 %. Ordering Physician: Bing Birmingham Performed By: Marcos Samriento RCS 10/14/24 1120 Date _ Juan Stacy MD CC: Dr. Bing Birmingham DO; No Primary Care Physician ~ Date Dictated: 10/14/24 0846 Date Transcribed: 10/14/24 112 Rn Lvn: Signed [facility] Work Phone: Electrocardiogram reportOrde red By: Juan Stacy on 10-14-[address] [facility] Services [address] [place] [id number] 12 Lead EKG 10/13/24 0907 MR#: [id number] Acct: [id number] Name: LAWSON DOYLE Rep #:[id number] : 2000 From: Juan Stacy MD Attending Dr: Dr. Bing Birmingham DO S tatus: ADM KEYANNA Ordering Dr: Arley Kirby DO Date: 0 10/13/24 Location: [facility] Sex: M C Admitted: 10/13/24 Test Reason : SOB Blood Pressure : */* mmHG Vent. Rate : 99 BPM Atrial Rate : 99 BPM P-R Int : 142 ms QRS Dur : 82 ms QT Int : 360 ms P-R-T Axes : 55 67 96 degrees QTcB Int : 462 ms Normal sinus rhythm Normal ECG Confirmed by ROD PEREIRA, JUAN ([id number]), street cleaning equipment operator TERRA HOOKS ([id number]) on 51:00:49 PM Referred By: Confirmed By: JUAN STACY MD 10/14/24 1300 Date _ Juan Stacy MD CC: Dr. Arley Kirby, DO; Dr. Bing Birmingham, DO; No Primary Care Physician ~ Signed [facility] Work Phone: Eosinophil percentageOrdered By: Bing Birmingham on 10-14-2024 Eosinophils/100 WBC (Bld) 7.9 % High 0-5 [facility] Erythrocyte distribution wid th ratioOrdered By: Bing Birmingham on 10-14-2024 Erythrocyte distribution width (RBC) [Ratio] 16.0 % High 11.6-14.6 [facility] Erythrocyte distribution wid th standard deviationOrdered By: Bing Birminhgam on 10-14-2024 Erythrocyte distribution width (RBC) [Ratio] 56.3 fl High 35.1-43.9 [facility] Glomerular filtration rate ( GFR) estimation/1.73 sq m using serum, plasma, or whole bOrdered By: Bing Birmingham on 10-14-2024 GFR/1.73 sq M.predicted among non-blacks MDRD (S/P/Bld) [Vol rate/Area] 7 mL/min/{1.73_m2} Low >60 [facility] Comment on above: mL/min/1.73m2 CKD-EP I Creatinine Equation (2020) Hematocrit Auto (Bld) [Volum e fraction]Ordered By: Bing Birmingham on 10-14-2024 Hematocrit (Bld) [Volume fraction] 27.5 % Low 40-54 [facility] Hemoglobin measurementOrdere d By: Bing Birmingham on 10-14-2024 Hemoglobin (Bld) [Mass/Vol] 8.9 g/dL Low 13.0-16.5 [facility] Immature granulocytes/100 WB C Auto (Bld)Ordered By: Bing Birmingham on 10-14-2024 Immature granulocytes/100 WBC (Bld) 0.200 % 0.0-0.9 [facility] Comment on above: IG% - Immature Granu locytes (promyelocytes, myelocytes and metamyelocytes) > 1% indicates that a LEFT SHIFT is Present. Laboratory - Chemistry and C hemistry - challengeOrdered By: Bing Birmingham on 10-14-2024 AST [Catalytic activity/Vol] 8 U/L <38 [facility] MCV (mean corpuscular volume ) determinationOrdered By: Bing Birmingham on 10-14-2024 MCV (RBC) [Entitic vol] 98.2 fL High 80-94 [facility] Magnesiumon 10-14-2024 Magnesium [Mass/Vol] 2.5 mg/dL High 1.5-2.2 [facility] Comment on above: Performed By: #### L 500.4050, L501.2300, L100.0100, L501.5200 #### [facility] [address] [place], [place] [address]all [facility] [place], [address] Magnesium measurement (mass/ volume)Ordered By: Bing Birmingham on 10-14-2024 Magnesium (Unsp spec) [Mass/Vol] 2.5 mg/dL High 1.5-2.2 [facility] Mean corpuscular hemoglobin (MCH) determinationOrdered By: Bing Birmingham on 10-14-2024 MCH (RBC) [Entitic mass] 31.8 pg 27.0-32.0 [facility] Mean corpuscular hemoglobin concentration (MCHC) determinationOrdered By: Bing Birmingham on 10-14-2024 MCHC (RBC) [Mass/Vol] 32.4 g/dL 32-36 [facility] Mean platelet volume determi nationOrdered By: Bing Birmingham on 10-14-2024 Platelet mean volume (Bld) [Entitic vol] 9.4 fL 6.2-12.0 [facility] Monocyte percentageOrdered B y: Bing Birmingham on 10-14-2024 Monocytes/100 WBC (Bld) 6.1 % 0-10 [facility] Neutrophil percentageOrdered By: Bing Birmingham on 10-14-2024 Neutrophils/100 WBC (Bld) 63.4 % 47-70 [facility] Nucleated red blood cell per centageOrdered By: Bing Birmingham on 10-14-2024 Nucleated RBC/100 WBC (Bld) [Ratio] 0 % 0-5 [facility] Phosphoruson 10-14-2024 Phosphate [Mass/Vol] 6.6 mg/dL High 2.7-4.5 [facility] Comment on above: Performed By: #### L 500.4050, L501.2300, L100.0100, L501.5200 #### [facility] [address] [place], [place], [address] Platelet countOrdered By: Jose M Birmingham on 10-14-2024 Platelets (Bld) [#/Vol] 231 10*3/uL 150-450 [facility] Potassiumon 10-14-2024 Potassium [Moles/Vol] 5.6 mmol/L High 3.3-5.1 [facility] Comment on above: Order Comment: Comme nts: K+ elevated after HD treatment Performed By: #### L 501.5600 #### [facility] [address] [place], [place], [id number] Potassium measurement (mass/ volume)Ordered By: Segundo Yanes on 10-14-2024 Potassium (Unsp spec) [Mass/Vol] 5.6 mmol/L High 3.3-5.1 [facility] RBC Auto (Bld) [#/Vol]Ordere d By: Bing Birmingham on 10-14-2024 RBC (Bld) [#/Vol] 2.80 10*6/uL Low 4.6-6.2 [facility] Serum creatinine measurement (mass/volume)Ordered By: Bing Birmingham on 10-14-2024 Creatinine [Mass/Vol] 10.10 mg/dL High 0.70-1.20 [facility] Comment on above: Critical Result(s) C alled at:0632 by: LAKIA PISANO TO JOHNNA FERNANDEZ Results read back by same. Serum globulin measurementOr dered By: Bing Birmingham on 10-14-2024 Globulin (S) [Mass/Vol] 2.0 g/dL Low 2.2-4.2 [facility] Serum glucose measurement (m ass/volume)Ordered By: Bing Birmingham on 10-14-2024 Glucose [Mass/Vol] 93 mg/dL 70-99 [facility] Serum or plasma alanine bullock otransferase (ALT) measurementOrdered By: Bing Birmingham on 10-14-2024 ALT [Catalytic activity/Vol] 10 U/L <47 [facility] Serum or plasma albumin sharyn urement (mass/volume)Ordered By: Bing Birmingham on 10-14-2024 Albumin [Mass/Vol] 3.7 g/dL 3.5-5.0 [facility] Serum or plasma albumin/glob ulin mass ratioOrdered By: Bing Birmingham on 10-14-2024 Albumin/Globulin [Mass ratio] 1.9 {ratio} 0.9-2.4 [facility] Serum or plasma alkaline sharda sphatase measurementOrdered By: Bing Birmingham on 10-14-2024 ALP [Catalytic activity/Vol] 70 U/L 40-129 [facility] Serum or plasma calcium sharyn urement (mass/volume)Ordered By: Bing Birmingham on 10-14-2024 Calcium [Mass/Vol] 9.1 mg/dL 7.6-11.0 [facility] Serum or plasma urea nitroge n measurement (mass/volume)Ordered By: Bing Birmingham on 10-14-2024 Urea nitrogen [Mass/Vol] 38 mg/dL High 4-19 [facility] Sodium levelOrdered By: Nerissa Birmingham on 10-14-2024 Sodium [Moles/Vol] 138 mmol/L 133-145 [facility] Total proteinOrdered By: Jen Birmingham on 10-14-2024 Protein [Mass/Vol] 5.7 g/dL Low 5.9-8.4 [facility] White blood cell (WBC) count Ordered By: Bing Birmingham on 10-14-2024 WBC (Bld) [#/Vol] 8.7 10*3/uL 4.4-11.0 [facility] 12 Lead EKGon 10-13-[address] [facility] Cardiovascular Services [address] [place] [address] 12 Lead EKG 10/13/24 0907 MR#: [id number] Acct: [id number] Name: LAWSON DOYLE Rep #: [id number] : 2000 24 From: Juan Stacy MD Attending Dr: Dr. Bing Birmingham, Status: ADM I NO Ordering Dr: Arley Kirby DO Date: 10/13/24 Location: [facility] Sex: M C Admitted: 10/13/24 Test Reason : SOB Blood Pressure : */* mmHG Vent. Rate : 99 BPM Atrial Rate : 99 BPM P-R Int : 142 ms QRS Dur : 82 ms QT Int : 360 ms P-R-T Axes : 55 67 96 degrees QTcB Int : 462 ms Normal sinus rhythm Normal ECG Confirmed by ROD PEREIRA, JUAN ([id number]), street cleaning equipment operator TERRA HOOKS ([id number]) on 10/14/2024 1:00:49 PM Referred By: Confirmed By: JUAN STACY MD 10/14/24 1300 Date Juan Stacy MD CC: Dr. Arley Kirby, ; Dr. Bing Birmingham, ; No Primary Care Physician Signed Normal [facility] Absolute lymphocyte countOrd ered By: Arley Kirby on 10-13-2024 Lymphocytes Auto (Unsp spec) [#/Vol] 1.75 10*3/uL 0.83-4.51 [facility] Absolute neutrophil countOrd ered By: Arley Kirby on 10-13-2024 Neutrophils (Bld) [#/Vol] 5.7 10*3/uL 2.0-7.7 [facility] Anion gap in Serum or Plasma Ordered By: Arley Kirby on 10-13-2024 Anion gap [Moles/Vol] 19 mmol/L High 5-15 [facility] Automated lymphocyte count a s percentage of total leukocytesOrdered By: Arley Kirby on 10-13-2024 Lymphocytes/100 WBC Auto (Unsp spec) 20.8 % 19-41 [facility] BUN/creatinine ratioOrdered By: Arley Kirby on 10-13-2024 Urea nitrogen/Creatinine [Mass ratio] 3.0 mg/mg Low 10-20 [facility] Basic Metabolic Profile (BMP )on 10-13-2024 BUN/CRE 3.0 RATIO Low 10-20 [facility] Comment on above: Performed By: #### L 503.7505, L100.0100, L500.2500 ####[facility] [address] [place], [address] Calcium [Mass/Vol] 9.9 mg/dL Normal 7.6-11.0 [facility] Comment on above: Performed By: #### L 503.7505, L100.0100, L500.2500 ####[facility] [address] [place], [address] Chloride [Moles/Vol] 96 mmol/L Low 98-108 [facility] Comment on above: Performed By: #### L 503.7505, L100.0100, L500.2500 ####[facility] [address] [place], [address] CO2 [Moles/Vol] 24.4 mmol/L Normal 21.0-32.0 [facility] Comment on above: Performed By: #### L 503.7505, L100.0100, L500.2500 ####[facility] [address] [place], [address] Creatinine [Mass/Vol] 12.50 mg/dL Invalid Interpretation Code 0.70-1.20 [facility] Comment on above: Result Comment: Crit ical Result(s) Called at 0951: by: SEGUNDO [place] TO ??Results read back by same. Performed By: #### L 503.7505, L100.0100, L500.2500 ####[facility] [address] [place], [address] ECRCL 9.33 ml/min Invalid Interpretation Code 50-250 [facility] Comment on above: Performed By: #### L 503.7505, L100.0100, L500.2500 ####[facility] [address] [place], [address] GAP 19 High 5-15 [facility] Comment on above: Performed By: #### L 503.7505, L100.0100, L500.2500 ####[facility] [address] [place], [address] GFR/1.73 sq M.predicted among non-blacks MDRD (S/P/Bld) [Vol rate/Area] 5 mL/min/{1.73_m2} Low >60 [facility] Comment on above: Result Comment: mL/m in/1.73m2 CKD-EPI Creatinine Equation (2020) Performed By: #### L 503.7505, L100.0100, L500.2500 ####[facility] [address] [place], [address] Glucose [Mass/Vol] 98 mg/dL Normal 70-99 [facility] Comment on above: Performed By: #### L 503.7505, L100.0100, L500.2500 ####[facility] [address] [place], [address] Potassium [Moles/Vol] 5.0 mmol/L Normal 3.3-5.1 [facility] Comment on above: Performed By: #### L 503.7505, L100.0100, L500.2500 ####[facility] [address] [place], [address] Sodium [Moles/Vol] 140 mmol/L Normal 133-145 [facility] Comment on above: Performed By: #### L 503.7505, L100.0100, L500.2500 ####[facility] [address] [place], [address] Urea nitrogen [Mass/Vol] 38 mg/dL High 4-19 [facility] Comment on above: Performed By: #### L 503.7505, L100.0100, L500.2500 ####[facility] [address] [place], [address] Basophil percentageOrdered B y: Arley Kirby on 10-13-2024 Basophils/100 WBC (Bld) 0.2 % 0-1 [facility] CBC W/Diff, Automatedon 09-17 Absolute Lymph 1.75 X10 3/uL Normal 0.83-4.51 [facility] Comment on above: Performed By: #### L 503.7505, L100.0100, L500.2500 ####[facility] [address] [place], [address] Absolute Neut 5.7 X10 3/uL Normal 2.0-7.7 [facility] Comment on above: Performed By: #### L 503.7505, L100.0100, L500.2500 ####[facility] [address] [place], [address] Basophils/100 WBC (Bld) 0.2 % Normal 0-1 [facility] Comment on above: Performed By: #### L 503.7505, L100.0100, L500.2500 ####[facility] [address] [place], [address] Eosinophils/100 WBC (Bld) 4.9 % Normal 0-5 [facility] Comment on above: Performed By: #### L 503.7505, L100.0100, L500.2500 ####[facility] [address] [place], [address] Erythrocyte distribution width (RBC) [Ratio] 16.3 % High 11.6-14.6 [facility] Comment on above: Performed By: #### L 503.7505, L100.0100, L500.2500 ####[facility] [address] [place], [address] Hematocrit (Bld) [Volume fraction] 29.2 % Low 40-54 [facility] Comment on above: Performed By: #### L 503.7505, L100.0100, L500.2500 ####[facility] [address] [place], [address] Hemoglobin (Bld) [Mass/Vol] 9.4 g/dL Low 13.0-16.5 [facility] Comment on above: Performed By: #### L 503.7505, L100.0100, L500.2500 ####[facility] [address] [place], [address] IG% 0.400 Normal 0.0-0.9 [facility] Comment on above: Result Comment: IG% - Immature Granulocytes (promyelocytes, myelocytes and metamyelocytes) > 1% indicates that a LEFT SHIFT is Present. Performed By: #### L 503.7505, L100.0100, L500.2500 ####[facility] [address] [place], [address] Lymphocytes/100 WBC (Bld) 20.8 % Normal 19-41 [facility] Comment on above: Performed By: #### L 503.7505, L100.0100, L500.2500 ####[facility] [address] [place], [address] MCH (RBC) [Entitic mass] 32.0 pg Normal 27.0-32.0 [facility] Comment on above: Performed By: #### L 503.7505, L100.0100, L500.2500 ####[facility] [address] [place], [address] MCHC (RBC) [Mass/Vol] 32.2 g/dL Normal 32-36 [facility] Comment on above: Performed By: #### L 503.7505, L100.0100, L500.2500 ####[facility] [address] [place], [address] MCV (RBC) [Entitic vol] 99.3 fL High 80-94 [facility] Comment on above: Performed By: #### L 503.7505, L100.0100, L500.2500 ####[facility] [address] [place], [address] Monocytes/100 WBC (Bld) 5.8 % Normal 0-10 [facility] Comment on above: Performed By: #### L 503.7505, L100.0100, L500.2500 ####[facility] [address] [place], [address] Neutrophils/100 WBC (Bld) 67.9 % Normal 47-70 [facility] Comment on above: Performed By: #### L 503.7505, L100.0100, L500.2500 ####[facility] [address] [place], [address] Nucleated RBC (Bld) [#/Vol] 0 10*3/uL Normal 0-5 [facility] Comment on above: Performed By: #### L 503.7505, L100.0100, L500.2500 ####[facility] [address] [place], [address] Platelet mean volume (Bld) [Entitic vol] 9.3 fL Normal 6.2-12.0 [facility] Comment on above: Performed By: #### L 503.7505, L100.0100, L500.2500 ####[facility] [address] [place], [address] Platelets (Bld) [#/Vol] 252 10*3/uL Normal 150-450 [facility] Comment on above: Performed By: #### L 503.7505, L100.0100, L500.2500 ####[facility] [address] [place], [address] RBC (Bld) [#/Vol] 2.94 10*6/uL Low 4.6-6.2 [facility] Comment on above: Performed By: #### L 503.7505, L100.0100, L500.2500 ####[facility] [address] [place], [address] RDW SD 58.7 fl High 35.1-43.9 [facility] Comment on above: Performed By: #### L 503.7505, L100.0100, L500.2500 ####[facility] [address] [place], [address] WBC (Bld) [#/Vol] 8.4 10*3/uL Normal 4.4-11.0 [facility] Comment on above: Performed By: #### L 503.7505, L100.0100, L500.2500 ####[facility] [address] [place], [address] Carbon dioxide, total [Moles /volume] in Central venous bloodOrdered By: Arley Kirby on 10-13-2024 CO2 [Moles/Vol] 24.4 mmol/L 21.0-32.0 [facility] Chest PA and Lateralon 10-[address] Chest PA and L[address] [facility] Imaging Services [address] [place] [address] Chest PA and Lateral MR#: [id number] Acct: [id number] Name: LAWSON DOYLE Rep #: [id number] : 2000 M 24 From: Abelardo villanueva MD PCP: Care Physician,No Primary Status: REG ER Study: Chest PA and Lateral Date of Exam: 10/13/24 Exam# [id number] Ordering Dr: Arley Kirby DO PROCEDURE: CHEST PA AND LATERAL 10/13/2024 REASON FOR EXAM: DYSPNEA TECHNIQUE: CHEST PA AND LATERAL COMPARISON: Prior study dated October 03, 2024. FINDINGS: Hardware: EKG electrodes are seen. Heart: Borderline cardiomegaly. Mediastinum: Unremarkable Lungs: Mild degree of vascular congestion and CHF. Bones: Unremarkable RAD/Chest PA and Lateral IMPRESSION: Borderline cardiomegaly. Mild degree of vascular congestion and CHF. Reading Location: [id number] CC: Dr. Arley Kirby, DO; No Primary Care Physician Rn Lvn: Signed Normal [facility] Chloride assayOrdered By: Yossi Kirby on 10-13-2024 Chloride [Moles/Vol] 96 mmol/L Low 98-108 [facility] Echo Completeon 10-13-2024 Echo Complete [facility] Cardiovascular Services [address] [place] [address] Echo Complete 10/14/24 0846 MR#: [id number] Acct: [id number] Name: LAWSON DOYLE Rep #: [id number] : 2000 24 From: Juan Stacy MD Attending Dr: Dr. Bing Birmingham DO Status: ADM I NO Ordering Dr: Bing Birmingham DO Date: 10/13/24 Location: U Sex: M C Admitted: 10/13/24 Reason For Study Reason For Study: Dyspnea/SOB Procedure This was a 2D Doppler, Color Flow transthoracic echocardiogram. Myocardial strain analysis was performed in this exam to aid in the assessment of cardiac function. Exam performed portable in patient room. Left Ventricle Normal LV size. Mild concentric left ventricular hypertrophy. The global longitudinal strain = - 15.7% (abnormal). The left ventricular ejection fraction is 50 %. Right Ventricle Normal RV size. Normal systolic function. Atria Normal left atrium. Normal right atrium. Mitral Valve Normal mitral valve. Mild (1+) eccentric mitral valve insufficiency. Tricuspid Valve Normal tricuspid valve. Mild (1+) tricuspid valve insufficiency. Pulmonary artery systolic pressure is 48 mmHg. Aortic Valve Trisinus/trileaflet aortic valve. Pulmonic Valve Normal pulmonic valve. Great Vessels Normal aortic root. The pulmonary artery is normal size. Inferior vena cava collapse with respiration. Pericardium/Pleural No pericardial effusion. MMode/2D Measurements Calculations LVIDd: 5.0 cm IVSd: 1.3 cm Ao root diam: 3.2 cm LVIDs: 3.7 cm LVPWd: 1.3 cm RVDd: 4.1 cm FS: 25.9 % LAV(MOD-bp): 67.1 ml LVAd ap4: 38.3 cm2 SV(MOD-sp4): 68.9 ml LAV(MOD-bp) Indexed: 33.6 ml/m2 LVLd ap4: 8.7 cm SI(MOD-sp4): 34.5 ml/m2 LAV(MOD-sp2): 65.7 ml EDV(MOD-sp4): 137.0 ml LAV(MOD-sp4): 58.5 ml EDV(sp4-el): 143.8 ml LVAs ap4: 24.3 cm2 LVLs ap4: 7.2 cm ESV(MOD-sp4): 68.1 ml ESV(sp4-el): 69.4 ml EF(MOD-sp4): 50.3 % EF(sp4-el): 51.8 % SV(sp4-el): 74.5 ml LA A4 area: 20.8 cm2 LA dimension(2D): 3.9 cm RA A4 area: 16.1 cm2 TAPSE: 2.2 cm Time Measurements MV dec time: 0.17 sec Doppler Measurements Calculations MV E max bhavana: 124.2 cm/sec Lat Peak E' Bhavana: 11.3 cm/sec Med Peak E' Bhavana: 9.3 cm/sec MV A max bhavana: 76.2 cm/sec E/E' lat: 11.0 E/E' med: 13.4 MV E/A: 1.6 MV V2 max: 161.1 cm/sec Ao V2 max: 175.2 cm/sec MV max P.4 mmHg MV dec slope: 722.3 cm/sec2 Ao max P.3 mmHg MV V2 mean: 108.8 cm/sec Ao V2 mean: 123.0 cm/sec MV mean P.5 mmHg Ao mean P.9 mmHg MV V2 VTI: 26.7 cm Ao V2 VTI: 29.7 cm AV (velocity ratio): 0.89 LV V1 max: 162.0 cm/sec MR max bhavana: 524.1 cm/sec PA V2 max: 131.7 cm/sec LV V1 max P.5 mmHg MR max P.9 mmHg PA V2 mean: 96.1 cm/sec LV V1 mean P.4 mmHg MR mean bhavana: 421.0 cm/sec LV V1 mean: 107.7 cm/sec MR mean P.6 mmHg LV V1 VTI: 26.5 cm MR VTI: 154.0 cm TR max bhavana: 333.1 cm/sec TR max P.4 mmHg ECHO/Echo Complete Interpretation Summary Normal LV size. Mild concentric left ventricular hypertrophy. The global longitudinal strain = -15.7% (abnormal). The left ventricular ejection fraction is 50 %. Ordering Physician: Bing Birmingham Performed By: Marcos Sarmiento RCS 10/14/24 1120 Date Juan Stacy MD CC: Dr. Bing Birmingham DO; No Primary Care Physician Date Dictated: 10/14/24 0846 Date Transcribed: 10/14/24 1120 Rn Lvn: Signed Normal [facility] Emergency Department Summary on 10-13-2024 Emergency Department Summary [facility] Medical Records Department [address] [place] [address] Emergency Department Summary 10/13/24 MR#: [id number] Acct: [id number] Name: LAWSON DOYLE Rep #: [id number] : 2000 24 From: Arley Kirby DO PCP: Care Physician,No Primary Status:ADM KEYANNA Location: [address] History of Present Illness Chief Complaint: Shortness of Breath Informant: patient Onset/Context/Timing Onset: Days (10) Context: gradual Timing: Continuous Quality: Positive for Dyspnea on exertion Worsened by: Exertion Relieved by: Rest Associated Symptoms cough; Negative for rhinorrhea, post nasal drip, ear pain, fever, sore throat, chills, clear sputum, white sputum, yellow sputum or green sputum Chest Pain: Positive for Sharp (Left lower parasternal area) Narrative Narrative: Patient presents with shortness of breath that has been constant for the past 10 days. Patient was seen here at that time and was diagnosed with pneumonia. Patient states she was put on a course of steroids, and inhaler, and "another medication". Patient states he completed his course of steroids. Patient also states he finished the other medication. Patient admits to a cough. Patient states he is coughing up some "orange" sputum. Patient denies any fevers or chills. Patient admits to some pain over his left parasternal area. Patient describes it as sharp. Patient denies any nausea or vomiting. Patient denies any fevers or chills. Patient states he does dialysis on Sunday, Sunday, and Sunday. Patient did not go to dialysis today because he felt more short of breath. Patient states his breathing is worse with any exertion. Patient states he has difficulty going up steps. Patient has not taken any of his medications today. Patient states he normally takes his blood pressure medicines prior to going to dialysis. PE Risk Factors: Negative for Cancer, OCP + Smoking + > 35, Prior DVT or PE, Recent immobilization, Recent surgery or Recent travel [facility] Medical History (Updated 10/13/24 @ 12:[address] Arley Kirby DO) Hypertension Dialysis patient Arteriovenous fistula of right upper extremity Alports [facility] Home Medications ???Medication ???Instructions ???Recorded ???Last Taken ???Type carvedilol 12.5 mg tablet 12.5 mg PO BID 02/11/24 10/12/24 H istory cinacalcet 30 mg tablet 30 mg PO QPM 02/11/24 Unknown Hist ory losartan 100 mg tablet 100 mg PO DAILY 02/11/24 10/12/24 History sevelamer carbonate 800 mg tablet 800 mg PO TID 02/11/24 10/12/24 H istory vit B,C-folic ac 800 mcg-zinc 12.5 1 tab PO DAILY 02/11/24 10/12/24 History mg-selen-D3 2,000 unit-vit E tablet (RenaPlex-D) albuterol sulfate 90 mcg/actuation 1 - 2 puff inhalation Q4H PRN TN N 10/03/24 Unknown Rx aerosol inhaler (Ventolin HFA) Wheezing #1 inh lanthanum 1,000 mg chewable tablet 1,000 mg PO TID 10/03/24 5 History Allergy/AdvReac Type Severity Reaction Status Date / Time No Known Allergies Allergy Verified 10/13/24 08:14 Social History Smoking Status: Former smoker ROS ROS ED Constitutional Constitutional ED: Denies chills or fever(s) Eyes Eyes: Denies blurry vision or change in vision ENT ENT ED: Denies rhinorrhea or sore throat Cardiovascular Cardiovascular: Reports chest pain; Denies palpitations Respiratory/Chest Respiratory/Chest: Reports cough and dyspnea Gastrointestinal Gastrointestinal: Reports abdominal pain, nausea and vomiting Genitourinary Genitourinary ED: Denies dysuria or hematuria Musculoskeletal Musculoskeletal: Denies back pain or neck pain Integumentary Denies abscess or rash Neurologic Neurologic: Denies headache(s) or weakness Allergic/Immunologic Allergic/Immunologic ED: Denies mouth swelling or urticaria EXAM Physical Exam Const Vital Signs: 10/13/24 08:14 10/13/24 08:16 10/13/24 08:32 Temperature 98.7 F 98.7 F Temperature Source Oral Temporal Pulse Rate 22 L 110 H Respiratory Rate 117 H 16 Respiratory Effort Short of Breath Respiratory Depth Shallow Blood Pressure 200/134 H 191/131 H Blood Pressure Mean 156 151 Pulse Ox 95 98 Oxygen Delivery Method Room Air Room Air Room Air 10/13/24 09:16 10/13/24 10:14 10/13/24 12:00 Temperature 98.4 F Temperature Source Oral Pulse Rate 98 100 101 H Respiratory Rate 18 23 H 21 H Respiratory Effort Respiratory Depth Blood Pressure 166/89 H 161/122 H 166/111 H Blood Pressure Mean 114 135 129 Pulse Ox 96 93 100 Oxygen Delivery Method Room Air Room Air Room Air Positive well nourished and well developed General Appearance ED: well developed and NAD HEENT Reports moist mucous membranes atraumatic Neck supple and no JVD (more content not included)... Normal [facility] Eosinophil percentageOrdered By: Arley Kirby on 10-13-2024 Eosinophils/100 WBC (Bld) 4.9 % 0-5 [facility] Erythrocyte distribution wid th ratioOrdered By: Arley Kirby on 10-13-2024 Erythrocyte distribution width (RBC) [Ratio] 16.3 % High 11.6-14.6 [facility] Erythrocyte distribution wid th standard deviationOrdered By: Arley Kirby on 10-13-2024 Erythrocyte distribution width (RBC) [Ratio] 58.7 fl High 35.1-43.9 [facility] Glomerular filtration rate ( GFR) estimation/1.73 sq m using serum, plasma, or whole bOrdered By: Arley Kirby on 10-13-2024 GFR/1.73 sq M.predicted among non-blacks MDRD (S/P/Bld) [Vol rate/Area] 5 mL/min/{1.73_m2} Low >60 [facility] Comment on above: mL/min/1.73m2 CKD-EP I Creatinine Equation (2020) H AND P Exam - [facility] 10-13-2024 H&P Exam - Hospitalist [facility] Medical Records Department [address] [place] [address] H P Exam - Hospitalist 10/13/24 1220 MR#: [id number] Acct: [id number] Name: LAWSON DOYLE Rep #: [id number] : 2000 24 From: Bing Birmingham DO PCP: Care Physician,No Primary Status:ADM KEYANNA Location: [place] [address] HPI - General General Date of Admission: 10/13/24 Date of Service: 10/13/24 Chief Complaint: Shortness of breath HPI Narrative LAWSON DOYLE, is a 24 M who presented to the emergency department at [facility] on 10/05/2024 complaining of shortness of breath. Patient has history of Alport syndrome and has end- stage renal disease currently on dialysis. He started dialysis about 2 years ago and up until last couple months he was tolerating dialysis well. He states currently he is getting nauseated at the end of his sessions. His last dialysis was Sunday and he ran all the last 10 minutes. He was seen in the emergency department on 10/03/2024 and diagnosed with bronchitis. At that time he was given a Z-Selwyn, albuterol, and a prednisone taper. He states he still has a cough. He said no fever or chills. His white count and differential was normal been as it is now. He states that his blood pressure is always fairly elevated despite compliance with his home blood pressure medicines. He states he is symptomatic if his blood pressure starts to drop below 130 systolic. He follows with Dr. Higuera as an outpatient. Vital signs on presentation showed temperature 98.7, heart rate 110, blood pressure 191/131, respiratory rate 16-23 and pulse ox was 93 to 98% on room air at rest however he desatted with exertion into the low 80s. Given that exertional desat admission was felt to be needed as he was not able to have outpatient dialysis today and would have to defer to tomorrow. CBC shows a chronic stable anemia but was otherwise unremarkable with a normal white count and differential. His chemistry panel showed markedly elevated anion gap at 19 BUN of 38 and a serum creatinine of 12.50. BNP was obtained and was 44,433. CXR is consistent with volume overload. Case was discussed by ED with Nephrology and the plan is for urgent HD today. [facility] Medical History (Updated 10/13/24 @ 16:[address] Bing Birmingham, DO) Chronic anemia AV fistula Kidney disease Former smoker Hypertension Dialysis patient Arteriovenous fistula of right upper extremity Alports syndrome Home Medications ???Medication ???Instructions ???Recorded ???Last Taken ???Type carvedilol 12.5 mg tablet 12.5 mg PO BID 02/11/24 10/12/24 H istory cinacalcet 30 mg tablet 30 mg PO QPM 02/11/24 Unknown Hist ory losartan 100 mg tablet 100 mg PO DAILY 02/11/24 10/12/24 History sevelamer carbonate 800 mg tablet 800 mg PO TID 02/11/24 10/12/24 H istory vit B,C-folic ac 800 mcg-zinc 12.5 1 tab PO DAILY 02/11/24 10/12/24 History mg-selen-D3 2,000 unit-vit E tablet (RenaPlex-D) albuterol sulfate 90 mcg/actuation 1 - 2 puff inhalation Q4H PRN TN N 10/03/24 Unknown Rx aerosol inhaler (Ventolin HFA) Wheezing #1 inh lanthanum 1,000 mg chewable tablet 1,000 mg PO TID 10/03/24 5 History Allergy/AdvReac Type Severity Reaction Status Date / Time No Known Allergies Allergy Verified 10/13/24 08:14 Family History no significant family his no significant family history Surgical History no surgical history no surgical history Social History (Updated 10/13/24 @ 16:[address] Bing Birmingham, DO) household members: family housing: house Smoking Status: Former smoker alcohol intake: never substance use type: does not use ROS Constitutional Constitutional: Denies anorexia, change in weight, chills, fatigue, fever(s), malaise, night sweats, weakness or other Eyes Eyes: Denies blurry vision, change in eye color, change in vision, discharge from eye(s), double vision, erythema, eye pain, loss of vision or other ENT HEENT: Denies abnormal hearing, dysphagia, ear pain, epistaxis, headache(s), hearing loss, nasal congestion, nasal discharge, post nasal drip, sinus pressure, sore throat or other Cardiovascular Cardiovascular: Denies chest pain, claudication, dyspnea on exertion, edema, lightheadedness, orthopnea, palpitations, paroxysmal nocturnal dyspnea, rapid heart rate, syncope or other Respiratory/Chest Respiratory/Chest: Reports cough, dyspnea, productive cough, shortness of breath at rest and shortness of breath with exertion Gastrointestinal Gastrointestinal: Reports nausea; Denies abdominal pain, coffee ground emesis, constipation, diarrhea, dyspepsia, hematemesis, hematochezia, loose stools, melena, vomiting or other Genitourinary Genitourinary: Denies burning urination, difficulty urinating, dysuria, hematuria, nocturia, urinary frequency, urinary hesitancy, urinary inco (more content not included)... Normal [facility] Hematocrit Auto (Bld) [Volum e fraction]Ordered By: Arley Kirby on 10-13-2024 Hematocrit (Bld) [Volume fraction] 29.2 % Low 40-54 [facility] Hemoglobin measurementOrdere d By: Arley Kirby on 10-13-2024 Hemoglobin (Bld) [Mass/Vol] 9.4 g/dL Low 13.0-16.5 [facility] Immature granulocytes/100 WB C Auto (Bld)Ordered By: Arley Kirby on 10-13-2024 Immature granulocytes/100 WBC (Bld) 0.400 % 0.0-0.9 [facility] Comment on above: IG% - Immature Granu locytes (promyelocytes, myelocytes and metamyelocytes) > 1% indicates that a LEFT SHIFT is Present. MCV (mean corpuscular volume ) determinationOrdered By: Arley Kirby on 10-13-2024 MCV (RBC) [Entitic vol] 99.3 fL High 80-94 [facility] Mean corpuscular hemoglobin (MCH) determinationOrdered By: Arley Kirby 10-13-2024 MCH (RBC) [Entitic mass] 32.0 pg 27.0-32.0 [facility] Mean corpuscular hemoglobin concentration (MCHC) determinationOrdered By: Arley Kirby 10-13-2024 MCHC (RBC) [Mass/Vol] 32.2 g/dL 32-36 [facility] Mean platelet volume determi nationOrdered By: Arley Kirby 10-13-2024 Platelet mean volume (Bld) [Entitic vol] 9.3 fL 6.2-12.0 [facility] Monocyte percentageOrdered B y: Arley Kirby on 10-13-2024 Monocytes/100 WBC (Bld) 5.8 % 0-10 [facility] Natriuretic peptide.B prohor angel N-Terminal [Mass/volume] in Serum or PlasmaOrdered By: Arley Kirby on 10-13-2024 Natriuretic peptide.B prohormone N-Terminal [Mass/Vol] 33135 pg/mL High <450 [facility] Comment on above: Heart Failure Unlike ly: < 300 pg/mLHeart Failure Likely< 50 Years: > 450 pg/mL50-75 Years: > 900 pg/mL>75 Years: > 1800 pg/mL Neutrophil percentageOrdered By: Arley Kirby on 10-13-2024 Neutrophils/100 WBC (Bld) 67.9 % 47-70 [facility] Nucleated red blood cell per centageOrdered By: Arley Kirby on 10-13-2024 Nucleated RBC/100 WBC (Bld) [Ratio] 0 % 0-5 [facility] Platelet countOrdered By: Yossi Kirby on 10-13-2024 Platelets (Bld) [#/Vol] 252 10*3/uL 150-450 [facility] Potassium measurement (mass/ volume)Ordered By: Arley Kirby on 10-13-2024 Potassium (Unsp spec) [Mass/Vol] 5.0 mmol/L 3.3-5.1 [facility] Pro- Brain NATRIURETIC PEPTI Prieto 10-13-2024 Natriuretic peptide B (Bld) [Mass/Vol] 18829 pg/mL High <=450 [facility] Comment on above: Result Comment: Hear t Failure Unlikely: < 300 pg/mL Heart Failure Likely < 50 Years: > 450 pg/mL 50-75 Years: > 900 pg/mL >75 Years: > 1800 pg/mL Performed By: #### L 503.7505, L100.0100, L500.2500 ####[facility] [id number] [facility] [place], [address] RBC Auto (Bld) [#/Vol]Ordere d By: Arley Kirby on 10-13-2024 RBC (Bld) [#/Vol] 2.94 10*6/uL Low 4.6-6.2 [facility] Serum creatinine measurement (mass/volume)Ordered By: Arley Kirby on 10-13-2024 Creatinine [Mass/Vol] 12.50 mg/dL High 0.70-1.20 [facility] Comment on above: Critical Result(s) C alled at 0951: by: SEGUNDO DUBOIS. Results read back by same. Serum glucose measurement (m ass/volume)Ordered By: Arley Kirby on 10-13-2024 Glucose [Mass/Vol] 98 mg/dL 70-99 [facility] Serum or plasma calcium sharyn urement (mass/volume)Ordered By: Arley Kirby on 10-13-2024 Calcium [Mass/Vol] 9.9 mg/dL 7.6-11.0 [facility] Serum or plasma urea nitroge n measurement (mass/volume)Ordered By: Arley Kirby on 10-13-2024 Urea nitrogen [Mass/Vol] 38 mg/dL High 4-19 [facility] Sodium levelOrdered By: Arleyyamil Kirby on 10-13-2024 Sodium [Moles/Vol] 140 mmol/L 133-145 [facility] White blood cell (WBC) count Ordered By: Arley Kirby on 10-13-2024 WBC (Bld) [#/Vol] 8.4 10*3/uL 4.4-11.0 [facility] Abdomen/Pelvis without Conto n 10-03-2024 Abdomen/Pelvis without Cont [facility] Imaging Services [address] [place] [id number] Abdomen/Pelvis without Cont MR#: [id number] Acct: [id number] Name: LAWSON DOYLE Rep #: [id number] : 2000 M 24 From: Buck Massey MD PCP: Care Physician,No Primary Status: REG ER Study: Abdomen/Pelvis without Cont Date of Exam: 09/16 11/10 Exam# [id number] Ordering Dr: Josette Herron DO PROCEDURE: ABDOMEN/PELVIS WITHOUT CONT 10/03/2024 REASON FOR EXAM: LLQ ABD PAIN TECHNIQUE: ABDOMEN/PELVIS WITHOUT CONT Noncontrast technique limits evaluation of the abdominal and pelvic viscera. Coronal and Sagittal reconstruction series were provided. One or more dose reduction techniques were used (e.g., Automated exposure control, adjustment of the mA and/or kV according to patient size, use of iterative reconstruction technique). RADIATION DOSE SUMMARY: CTDlvol: 7.12 mGy DLP: 391.16 DrBandar Kg mGycm FINDINGS: Small right pleural effusion. Normal noncontrast appearance of the liver and spleen. There is bilateral renal atrophy but without hydronephrosis. The gallbladder is unremarkable. Limited evaluation of the pancreas without contrast without adjacent fluid. No dilatation of the large bowel or the small bowel. The appendix is normal. There is no free-fluid or free air. There is no pelvic or retroperitoneal adenopathy. No visible bowel wall thickening. Specific attention is paid to the left lower quadrant. No positive findings of diverticulitis. No hernia. CT/Abdomen/Pelvis without Cont IMPRESSION: No acute abnormality. [facility] CC: Dr. Josette Herron, DO; No Primary Care Physician Rn Lvn: Signed Normal [facility] Absolute lymphocyte countOrd ered By: Josette Herron on 10-03-2024 Lymphocytes Auto (Unsp spec) [#/Vol] 1.64 10*3/uL 0.83-4.51 [facility] Absolute neutrophil countOrd ered By: Josette Herron on 10-03-2024 Neutrophils (Bld) [#/Vol] 5.4 10*3/uL 2.0-7.7 [facility] Activated partial thrombopla stin time (aPTT) in platelet poor plasma by coagulation aOrdered By: Josette Herron on 10-03-2024 aPTT Coag (PPP) [Time] 30.9 s 24.1-36.2 [facility] Anion gap in Serum or Plasma Ordered By: Josette Herron on 10-03-2024 Anion gap [Moles/Vol] 11 mmol/L 5-15 [facility] Automated lymphocyte count a s percentage of total leukocytesOrdered By: Josette Herron on 10-03-2024 Lymphocytes/100 WBC Auto (Unsp spec) 20.7 % 19-41 [facility] BUN/creatinine ratioOrdered By: Josette Herron on 10-03-2024 Urea nitrogen/Creatinine [Mass ratio] 2.0 mg/mg Low 10-20 [facility] Basophil percentageOrdered B y: Josette Herron on 10-03-2024 Basophils/100 WBC (Bld) 0.3 % 0-1 [facility] Bilirubin Test strip Ql (U)O rdered By: Josette Herron on 10-03-2024 Bilirubin Ql (U) Negative Negative [facility] CBC W/Diff, Automatedon 09-16 Absolute Lymph 1.64 X10 3/uL Normal 0.83-4.51 [facility] Comment on above: Performed By: #### L 100.0100, L500.2500 #### [facility] [address] [place], [address] Absolute Neut 5.4 X10 3/uL Normal 2.0-7.7 [facility] Comment on above: Performed By: #### L 100.0100, L500.2500 #### [facility] [address] [place], [address] Basophils/100 WBC (Bld) 0.3 % Normal 0-1 [facility] Comment on above: Performed By: #### L 100.0100, L500.2500 #### [facility] [address] [place], [address] Eosinophils/100 WBC (Bld) 5.5 % High 0-5 [facility] Comment on above: Performed By: #### L 100.0100, L500.2500 #### [facility] [address] [place], [address] Erythrocyte distribution width (RBC) [Ratio] 14.9 % High 11.6-14.6 [facility] Comment on above: Performed By: #### L 100.0100, L500.2500 #### [facility] [address] [place], [address] Hematocrit (Bld) [Volume fraction] 27.0 % Low 40-54 [facility] Comment on above: Performed By: #### L 100.0100, L500.2500 #### [facility] [address] [place], [address] Hemoglobin (Bld) [Mass/Vol] 8.9 g/dL Low 13.0-16.5 [facility] Comment on above: Performed By: #### L 100.0100, L500.2500 #### [facility] [address] [place], [address] IG% 0.500 Normal 0.0-0.9 [facility] Comment on above: Result Comment: IG% - Immature Granulocytes (promyelocytes, myelocytes and metamyelocytes) > 1% indicates that a LEFT SHIFT is Present. Performed By: #### L 100.0100, L500.2500 #### [facility] [address] [place] [place], [address] Lymphocytes/100 WBC (Bld) 20.7 % Normal 19-41 [facility] Comment on above: Performed By: #### L 100.0100, L500.2500 #### [facility] [address] [place] [place], [address] MCH (RBC) [Entitic mass] 31.1 pg Normal 27.0-32.0 [facility] Comment on above: Performed By: #### L 100.0100, L500.2500 #### [facility] [address] [place], [address] MCHC (RBC) [Mass/Vol] 33.0 g/dL Normal 32-36 [facility] Comment on above: Performed By: #### L 100.0100, L500.2500 #### [facility] [address] [place], [address] MCV (RBC) [Entitic vol] 94.4 fL High 80-94 [facility] Comment on above: Performed By: #### L 100.0100, L500.2500 #### [facility] [address] [place], [address] Monocytes/100 WBC (Bld) 5.2 % Normal 0-10 [facility] Comment on above: Performed By: #### L 100.0100, L500.2500 #### [facility] [address] [place], [address] Neutrophils/100 WBC (Bld) 67.8 % Normal 47-70 [facility] Comment on above: Performed By: #### L 100.0100, L500.2500 #### [facility] [address] [place], [address] Nucleated RBC (Bld) [#/Vol] 0 10*3/uL Normal 0-5 [facility] Comment on above: Performed By: #### L 100.0100, L500.2500 #### [facility] [address] [place], [address] Platelet mean volume (Bld) [Entitic vol] 9.5 fL Normal 6.2-12.0 [facility] Comment on above: Performed By: #### L 100.0100, L500.2500 #### [facility] [address] [place], [address] Platelets (Bld) [#/Vol] 198 10*3/uL Normal 150-450 [facility] Comment on above: Performed By: #### L 100.0100, L500.2500 #### [facility] [address] [place], [address] RBC (Bld) [#/Vol] 2.86 10*6/uL Low 4.6-6.2 [facility] Comment on above: Performed By: #### L 100.0100, L500.2500 #### [facility] [address] [place], [address] RDW SD 50.8 fl High 35.1-43.9 [facility] Comment on above: Performed By: #### L 100.0100, L500.2500 #### [facility] [address] [place], [address] WBC (Bld) [#/Vol] 7.9 10*3/uL Normal 4.4-11.0 [facility] Comment on above: Performed By: #### L 100.0100, L500.2500 #### [facility] [address] [place], [address] Carbon dioxide, total [Moles /volume] in Central venous bloodOrdered By: Josette Herron on 10-03-2024 CO2 [Moles/Vol] 31.5 mmol/L 21.0-32.0 [facility] Chest PA and Lateralon 10-03 Chest [address] and L[address] [facility] Imaging Services [address] [place] [address] Chest PA and Lateral MR#: [id number] Acct: [id number] Name: LAWSON DOYLE Rep #: [id number] : 2000 M 24 From: Gabriele Castillo MD PCP: Care Physician,No Primary Status: [facility] ER Study: Chest PA and Lateral Date of Exam: 10/03/24 Exam# [id number] Ordering Dr: Josette Herron DO PROCEDURE: CHEST PA AND LATERAL 10/03/2024 REASON FOR EXAM: COUGH TECHNIQUE: CHEST PA AND LATERAL COMPARISON: None. FINDINGS: Lungs/Pleura: Mild hazy opacities in the right greater than left perihilar regions may represent pneumonia, versus alveolar edema in the appropriate clinical setting. No sizable pleural effusion. No pneumothorax. Heart/Mediastinum: Mild cardiomegaly and central vascular congestion. Bones/Soft tissues: Within normal limits. RAD/Chest PA and Lateral IMPRESSION: Cardiomegaly and vascular congestion. Mild bilateral hazy perihilar airspace opacities favored to reflect cardiogenic alveolar edema. Reading Location: [facility] CC: Dr. Josette Herron DO; No Primary Care Physician Rn Lvn: Signed Normal [facility] Chloride assayOrdered By: Ernst Herron on 10-03-2024 Chloride [Moles/Vol] 95 mmol/L Low 98-108 [facility] Emergency Department Summary on 10-03-2024 Emergency Department Summary [facility] Medical Records Department [address] [place] [address] Emergency Department Summary 10/03/24 MR#: [id number] Acct: [id number] Name: LAWSON DOYLE Rep #: [id number] : 2000 24 From: Josette Herron DO PCP: Care Physician,No Primary Status:DEP ER Location: ED HPI History of Present Illness Chief Complaint: Abd Pain Informant: patient Narrative Narrative: Patient is a 24-year-old male with history of Alport syndrome subsequent end-stage renal disease on hemodialysis. He is presenting with 1 week of cough, myalgia, cramping as well as of vomiting. Patient states his symptoms started on Sunday, 3 days ago. He notes he is also developed itching rash on his extremities. He states that he has not been feeling well and has not been able to tolerate dialysis recently states been shortening his sessions. He did receive a dose of Zofran prior to his dialysis today but could not make it through a full session. He notes he did have labs on Sunday and brought them with him. States today he did have an episode of vomiting before his dialysis. He notes that he has crampy abdominal pain especially in the LLQ. This week he has had worsening cough. States the cough is minimally productive today of pink phlegm. [facility] Medical History Dialysis patient Arteriovenous fistula of right upper extremity Alports syndrome Home Medications ???Medication ???Instructions ???Recorded ???Last Taken ???Type carvedilol 12.5 mg tablet 12.5 mg PO BID 02/11/24 Unknown Hi story cinacalcet 30 mg tablet 30 mg PO QPM 02/11/24 Unknown Hist ory losartan 100 mg tablet 100 mg PO DAILY 02/11/24 Unknown H istory ondansetron 4 mg disintegrating 4 mg PO Q8H PRN PRN Nausea #10 tab s 02/11/24 Unknown Rx tablet sevelamer carbonate 800 mg tablet 800 mg PO TID 02/11/24 Unknown Hi story vit B,C-folic ac 800 mcg-zinc 12.5 1 tab PO DAILY 02/11/24 Unknown History mg-selen-D3 2,000 unit-vit E tablet (RenaPlex-D) albuterol sulfate 90 mcg/actuation 1 - 2 puff inhalation Q4H PRN TN N 10/03/24 Unknown Rx aerosol inhaler (Ventolin HFA) Wheezing #1 inh azithromycin 250 mg tablet See Rx Instructions PO .COMPLEX #6 10/03/24 Unknown Rx (Zithromax Z-Selwyn) tabs lanthanum 1,000 mg chewable tablet 1,000 mg PO TID 10/03/24 Unknown History prednisone 20 mg tablet 40 mg (2 x 20 mg) PO DAILY #10 tab s 10/03/24 Unknown Rx Allergy/AdvReac Type Severity Reaction Status Date / Time No Known Allergies Allergy Verified 10/03/24 16:39 Social History Smoking Status: Former smoker ROS ROS ED Constitutional Constitutional ED: Denies chills or fever(s) Eyes Eyes: Denies change in vision ENT ENT ED: Denies rhinorrhea or sore throat Cardiovascular Cardiovascular: Denies chest pain Respiratory/Chest Respiratory/Chest: Reports cough, dyspnea and sputum Gastrointestinal Gastrointestinal: Reports abdominal pain, nausea and vomiting; Denies constipation or diarrhea Genitourinary Genitourinary ED: Denies dysuria or urinary frequency Musculoskeletal Musculoskeletal: Reports myalgias; Denies arthralgias Integumentary Denies rash Neurologic Neurologic: Denies weakness Psychiatric Psychiatric: Denies anxiety Hematologic/Lymphatic Hematologic/Lymphatic: Denies easy bleeding or easy bruising EXAM Physical Exam Const Vital Signs: 10/03/24 16:39 10/03/24 17:56 10/03/24 18:39 Temperature 98.4 F Temperature Source Oral Pulse Rate 103 H 101 H Respiratory Rate 16 16 18 Respiratory Pattern Normal Blood Pressure 155/102 H 158/108 H Blood Pressure Mean 119 124 Pulse Ox 97 95 Oxygen Delivery Method Room Air Room Air 10/03/24 20:00 10/03/24 21:55 Temperature 98.1 F Temperature Source Pulse Rate 102 H 98 Respiratory Rate 29 H 17 Respiratory Pattern Blood Pressure 145/103 H 159/97 H Blood Pressure Mean 117 117 Pulse Ox 95 99 Oxygen Delivery Method Room Air Positive well nourished and well developed General Appearance ED: well developed and NAD HEENT Reports moist mucous membranes Eyes PERRL Neck supple and no JVD Chest Wall inspection of chest normal and palpation of chest normal Resp normal respiratory effort Resp Narrative: Coarse bronchial cough on exam. No crackles appreciated. No wheezing or rales appreciated. Mildly coarse breath sounds present. Cardio regular rate, regular rhythm and no murmurs GI normal to inspection, nondistended, normoactive bowel sounds GI Narrative: Mildly tender in the left lower quadrant. No hernia palpated. Palpation: soft; Negative for guarding Back/Spine no CVA tenderness Extremity normal to in (more content not included)... Normal [facility] Eosinophil percentageOrdered By: Josette Herron on 10-03-2024 Eosinophils/100 WBC (Bld) 5.5 % High 0-5 [facility] Erythrocyte distribution wid th ratioOrdered By: Josette Herron on 10-03-2024 Erythrocyte distribution width (RBC) [Ratio] 14.9 % High 11.6-14.6 [facility] Erythrocyte distribution wid th standard deviationOrdered By: Josette Herron on 10-03-2024 Erythrocyte distribution width (RBC) [Ratio] 50.8 fl High 35.1-43.9 [facility] Glomerular filtration rate ( GFR) estimation/1.73 sq m using serum, plasma, or whole bOrdered By: Josette Herron on 10-03-2024 GFR/1.73 sq M.predicted among non-blacks MDRD (S/P/Bld) [Vol rate/Area] 13 mL/min/{1.73_m2} Low >60 [facility] Comment on above: mL/min/1.73m2 CKD-EP I Creatinine Equation (2020) Hematocrit Auto (Bld) [Volum e fraction]Ordered By: Josette Herron on 10-03-2024 Hematocrit (Bld) [Volume fraction] 27.0 % Low 40-54 [facility] Hemoglobin measurementOrdere d By: Josette Herron on 10-03-2024 Hemoglobin (Bld) [Mass/Vol] 8.9 g/dL Low 13.0-16.5 [facility] Immature granulocytes/100 WB C Auto (Bld)Ordered By: Josette Herron on 07-18-2025 Immature granulocytes/100 WBC (Bld) 0.500 % 0.0-0.9 [facility] Comment on above: IG% - Immature Granu locytes (promyelocytes, myelocytes and metamyelocytes) > 1% indicates that a LEFT SHIFT is Present. Influenza virus A and B and SARS-CoV-2 (COVID-19) and Respiratory syncytial virus RNAOrdered By: Josette Herron on 10-03-2024 SARS-CoV-2 (COVID-19) RNA MIGUEL+probe Ql (Unsp spec) [facility] International normalized rat io (INR) calculationOrdered By: Josette Herron on 10-03-2024 INR Coag (Bld) [Relative time] 0.9 {INR} [facility] Ketones Test strip Ql (U)Ord ered By: Josette Herron on 10-03-2024 Ketones Ql (U) Negative Negative [facility] M100.678on 10-03-2024 M100.678 Pending SARS-CoV-2 (COVID 19) Negative INFLUENZA A Negative INFLUENZA B Negative RSV PCR Negative Normal [facility] Comment on above: Performed By: #### M 100.678 ####[facility] [address] [place], [place], [id number] MCV (mean corpuscular volume ) determinationOrdered By: Josette Herron on 10-03-2024 MCV (RBC) [Entitic vol] 94.4 fL High 80-94 [facility] Mean corpuscular hemoglobin (MCH) determinationOrdered By: Josette Herron on 10-03-2024 MCH (RBC) [Entitic mass] 31.1 pg 27.0-32.0 [facility] Mean corpuscular hemoglobin concentration (MCHC) determinationOrdered By: Josette Herron on 10-03-2024 MCHC (RBC) [Mass/Vol] 33.0 g/dL 32-36 [facility] Mean platelet volume determi nationOrdered By: Josette Herron on 10-03-2024 Platelet mean volume (Bld) [Entitic vol] 9.5 fL 6.2-12.0 [facility] Microscopic analysis of urin e for red blood cells (RBC)Ordered By: Josette Herron on 10-03-2024 Microscopic analysis of urine for red blood cells (RBC) 0-5 SEEN /hpf 0-5 [facility] Monocyte percentageOrdered B y: Josette Herron on 10-03-2024 Monocytes/100 WBC (Bld) 5.2 % 0-10 [facility] Mucus LM Ql (Urine sed)Order ed By: Josette Herron on 10-03-2024 Mucus Ql (Urine sed) 0 SEEN /hpf [facility] Neutrophil percentageOrdered By: Josette Herron on 10-03-2024 Neutrophils/100 WBC (Bld) 67.8 % 47-70 [facility] Nitrite Test strip Ql (U)Ord ered By: Josette Herron on 10-03-2024 Nitrite Ql (U) Negative Negative [facility] Nucleated red blood cell per centageOrdered By: Josette Herron on 10-03-2024 Nucleated RBC/100 WBC (Bld) [Ratio] 0 % 0-5 [facility] Partial Thromboplast Timeon 10-03-2024 aPTT Coag (Bld) [Time] 30.9 s Normal 24.1-36.2 [facility] Comment on above: Performed By: #### L 300.3900, L300.4310 ####[facility] [id number] [place], [address] Platelet countOrdered By: Ernst Herron on 10-03-2024 Platelets (Bld) [#/Vol] 198 10*3/uL 150-450 [facility] Potassium measurement (mass/ volume)Ordered By: Josette Herron on 10-03-2024 Potassium (Unsp spec) [Mass/Vol] 4.2 mmol/L 3.3-5.1 [facility] Protein Test strip Ql (U)Ord ered By: Josette Herron on 10-03-2024 Protein Ql (U) 100 mg/dl High Negative [facility] Prothrombin Time w/INRon INR Coag (PPP) [Relative time] 0.9 {INR} Normal [facility] Comment on above: Performed By: #### L 300.3900, L300.4310 #### [facility] [address] [place], [address] PT Coag (PPP) [Time] 12.8 s Normal 11.7-14.9 [facility] Comment on above: Performed By: #### L 300.3900, L300.4310 #### [facility] [address] [place], [address] Prothrombin timeOrdered By: Josette Herron on 10-03-2024 PT Coag (PPP) [Time] 12.8 s 11.7-14.9 [facility] RBC Auto (Bld) [#/Vol]Ordere d By: Josette Herron on 10-03-2024 RBC (Bld) [#/Vol] 2.86 10*6/uL Low 4.6-6.2 [facility] Renal Profileon 10-03-2024 Albumin [Mass/Vol] 3.9 g/dL Normal 3.5-5.0 [facility] Comment on above: Performed By: #### L 100.0100, L500.2500 #### [facility] [address] [place], [address] BUN/CRE 2.0 RATIO Low 10-20 [facility] Comment on above: Performed By: #### L 100.0100, L500.2500 #### [facility] [address] [place], [address] Calcium [Mass/Vol] 9.1 mg/dL Normal 7.6-11.0 [facility] Comment on above: Performed By: #### L 100.0100, L500.2500 #### [facility] [address] [place], [address] Chloride [Moles/Vol] 95 mmol/L Low 98-108 [facility] Comment on above: Performed By: #### L 100.0100, L500.2500 #### [facility] [address] [place], [address] CO2 [Moles/Vol] 31.5 mmol/L Normal 21.0-32.0 [facility] Comment on above: Performed By: #### L 100.0100, L500.2500 #### [facility] [address] [place], [address] Creatinine [Mass/Vol] 5.84 mg/dL High 0.70-1.20 [facility] [facility] Comment on above: Performed By: #### L 100.0100, L500.2500 #### [facility] [address] [place], [address] ECRCL 19.97 ml/min Low 50-250 [facility] Comment on above: Performed By: #### L 100.0100, L500.2500 #### [facility] [address] [place], [address] GAP 11 Normal 5-15 [facility] Comment on above: Performed By: #### L 100.0100, L500.2500 #### [facility] [address] [place], [address] GFR/1.73 sq M.predicted among non-blacks MDRD (S/P/Bld) [Vol rate/Area] 13 mL/min/{1.73_m2} Low >60 [facility] Comment on above: Result Comment: mL/m in/1.73m2 CKD-EPI Creatinine Equation (2020) Performed By: #### L 100.0100, L500.2500 #### [facility] [address] [place], [address] Glucose [Mass/Vol] 92 mg/dL Normal 70-99 [facility] Comment on above: Performed By: #### L 100.0100, L500.2500 #### [facility] [address] [place], [address] Phosphate [Mass/Vol] 5.1 mg/dL High 2.7-4.5 [facility] Comment on above: Performed By: #### L 100.0100, L500.2500 #### [facility] [address] [place], [address] Potassium [Moles/Vol] 4.2 mmol/L Normal 3.3-5.1 [facility] Comment on above: Performed By: #### L 100.0100, L500.2500 #### [facility] [address] [place], [address] Sodium [Moles/Vol] 138 mmol/L Normal 133-145 [facility] Comment on above: Performed By: #### L 100.0100, L500.2500 #### [facility] [address] [place], [address] Urea nitrogen [Mass/Vol] 12 mg/dL Normal 4-19 [facility] Comment on above: Performed By: #### L 100.0100, L500.2500 #### [facility] [address] [place], [address] Serum creatinine measurement (mass/volume)Ordered By: Josette Herron on 10-03-2024 Creatinine [Mass/Vol] 5.84 mg/dL High 0.70-1.20 [facility] Serum glucose measurement (m ass/volume)Ordered By: Josette Herron on 10-03-2024 Glucose [Mass/Vol] 92 mg/dL 70-99 [facility] Serum or plasma albumin sharyn urement (mass/volume)Ordered By: Josette Herron on 10-03-2024 Albumin [Mass/Vol] 3.9 g/dL 3.5-5.0 [facility] Serum or plasma calcium sharyn urement (mass/volume)Ordered By: Josette Herron on 10-03-2024 Calcium [Mass/Vol] 9.1 mg/dL 7.6-11.0 [facility] Serum or plasma urea nitroge n measurement (mass/volume)Ordered By: Josette Herron on 10-03-2024 Urea nitrogen [Mass/Vol] 12 mg/dL 4-19 [facility] Sodium levelOrdered By: Landen Herron on 10-03-2024 Sodium [Moles/Vol] 138 mmol/L 133-145 [facility] Squamous epithelial cells de tection in urine sediment by light microscopyOrdered By: Josette Herron on 10-03-2024 Epithelial cells.squamous LM Ql (Urine sed) 0 SEEN /hpf 0-5 [facility] Urinalysis, Completeon 10-03 RBC 0-5 SEEN Normal 0-5 [facility] Comment on above: Order Comment: CLEAN CATCH Performed By: #### L 400.0001 ####[facility] [id number] [place], [address] BACTERIA 0 SEEN Normal None Seen [facility] Comment on above: Order Comment: CLEAN CATCH Performed By: #### L 400.0001 ####[facility] [address] [place], [address] EPI,SQUAMOUS 0 SEEN Normal 0-5 [facility] Comment on above: Order Comment: CLEAN CATCH Performed By: #### L 400.0001 ####[facility] [address] [place], [address] Mucus Ql (Urine sed) 0 SEEN Normal [facility] Comment on above: Order Comment: CLEAN CATCH Performed By: #### L 400.0001 ####[facility] [address] [place], [address] WBC 0 SEEN Normal 0-5 [facility] Comment on above: Order Comment: CLEAN CATCH Performed By: #### L 400.0001 ####[facility] [address] [place], [address] Urine clarityOrdered By: Keila Herron on 10-03-2024 Clarity (U) Clear Clear [facility] Urine color determinationOrd ered By: Josette Herron on 10-03-2024 Color (U) Yellow Yellow [facility] Urine glucose detectionOrder ed By: Josette Herron on 10-03-2024 Glucose Ql (U) 100 mg/dl High Normal [facility] Urine leukocyte esterase det ection by dipstickOrdered By: Josette Herron on 10-03-2024 Leukocyte esterase Test strip Ql (U) Negative Negative [facility] Urine pHOrdered By: Josette zuniga on 10-03-2024 pH (U) 8.0 [pH] 5.0 - 8.0 [facility] Urine sediment bacteria coun t by microscopy (number/high power field)Ordered By: Josette Herron on 10-03-2024 Bacteria LM.HPF (Urine sed) [#/Area] 0 /[HPF] None Seen [facility] Urine specific gravity measu rementOrdered By: Josette Herron on 10-03-2024 Specific gravity (U) [Rel density] 1.015 1.002-1.030 [facility] Urine urobilinogen measureme ntOrdered By: Josette Herron on 10-03-2024 Urobilinogen Ql (U) Normal mg/dl Normal [facility] White blood cell (WBC) count Ordered By: Josette Herron on 10-03-2024 WBC (Bld) [#/Vol] 7.9 10*3/uL 4.4-11.0 [facility] White blood cell countOrdere d By: Josette Herron on 10-03-2024 White blood cell count 0 SEEN /hpf 0-5 [facility] HISTORY PHYSICALon HISTORY PHYSICAL HNO ID: [id number] Author: VIKTOR VENCES DO Service: Vascular Surgery Author Type: Physician Type: H&P Filed: 09/16/2024 14:14 Note Text: PROCEDURAL SEDATION HISTORY AND PHYSICAL EXAM SERVICE DATE: 09/16/2024 SERVICE TIME: 2:14 PM Subjective HPI: This is a 24 year old male who presents with right arm fistula malfunction. 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 09/15/2024 Yes carvedilol (COREG) 12.5 mg tablet twice daily with meals. 09/15/2024 Yes losartan (COZAAR) 100 mg tablet once daily. 09/15/2024 Yes ondansetron orally disintegrating (ZOFRAN ODT) 4 mg disintegrating tablet 09/15/2024 Yes sevelamer carbonate (RENVELA) 800 mg tablet once daily. 09/15/2024 Yes tuberculin,purif.prot.d eriv. (TUBERSOL INTRADERM.) 0.1 mL by INTRADERMAL route. Unknown doxercalciferol (HECTOROL INTRAVENOUS) 1 mcg. ALLERGIES No Known Allergies Objective PHYSICAL EXAM: The remainder of the physical exam is noncontributory. AIRWAY: Airway Visualization of Uvula: Yes Mouth opening greater than 3 fingerbreadths: Yes Neck Full Range of Motion: Yes LUNGS: Lungs clear to auscultation CARDIAC: Regular rhythm, Assessment/Plan ASA Class: ASA Class: Normal healthy patient Active Problems: * No active hospital problems. * Resolved Problems: * No resolved hospital problems. * Medication and Non-Pharmacologic VTE Prophylaxis/Anticoagula nts VTE Prophylaxis: VTE prophylaxis appropriate Provisional Diagnosis/Treatment Plan: right arm fistulogram Sedation Goal: Moderate SIGNATURE: Viktor Vences DO PATIENT NAME: Lawson Doyle DATE: September 16, 2024 TIME: 2:[address] [facility] OPERATIVE NOon 09-16-2024 OPERATIVE NO HNO ID: [id number] Author: VIKTOR VENCES DO Service: Vascular Surgery Author Type: Physician Type: Operative Report Filed: 09/16/2024 15:42 Note Text: OPERATIVE/PROCEDURE REPORT LOG ID: [id number] Surgery/Procedure Date: 09/16/2024 Incision/Procedure Start Time: 2:46 PM Incision Close/Procedure End Time: 3:39 PM Surgeon(s)/Proceduralis t(s) and Account Developer(s): Surgeons and Role: * Viktor Vences DO - Primary Procedure(s): right upper extremity fistulogram and central venogram Balloon angioplasty of cephalic arch stenosis with 6mm and 7mm mustang balloon Anesthesia: moderate sedation Operative indications: 24 year old male who presents for right upper extremity fistulogram due to prolonged bleeding. Procedure details: The procedure was performed by in the laborer road. The patient was taken to the laborer road where informed consent was obtained. The patient was positioned supine on the operating table. The right arm was prepped and draped in the usual sterile fashion. All elements of maximal barrier technique including cap and mask, sterile gown, sterile gloves, a large sterile drape, hand hygiene, and appropriate prep agent for cutaneous antisepsis were utilized and maintained during the procedure. Ultrasound interrogation of the fistula was performed to evaluate inflow fistula and to visualize the arterial anastomosis. This demonstrated widely patent arterial anastomosis and no evidence of inflow stenosis. Using local anesthesia, ultrasound guidance, and a micropuncture system, the upper extremity fistula was accessed retrograde. the transitional sheath was placed. Contrast was injected through the sheath to perform fistulagram with DSA runs visualizing the fistula in it's entirety as well as the central veins. This showed patent fistula and widely patent midfistula stent without stenosis. Stenosis of the cephalic arch. Central veins widely patent without stenosis. Utilizing guidewire exchange and Seldinger technique the sheath was up-sized to a 6-Fr sheath. A wire and catheter were used to cross the area of stenosis. Balloon angioplasty of the cephalic arch stenosis was performed with a 6x60mm, 7x40.. and 7x20mm mustang balloons sequentially with prolonged insuffiation. With the balloon inflated, contrast was injected through the sheath and a DSA run of the inflow was performed. This revealed widely patent arterial anastomosis and no evidence of inflow stenosis. Completion angiogram revealed a technically satisfactory result with 30% residual stenosis and significantly improved thrill throughout the entire fistula with no pulsatility. The sheath was removed and hemostasis was achieved with manual pressure. The patient was transferred to the recovery area in stable condition. Findings: Patent fistula with cephalic arch stenosis improved after balloon angioplasty with 30% residual stenosis Pre-Op/Pre-Procedure Diagnosis: ESRD Post-Op/Post-Procedure Diagnosis: Same Estimated Blood Loss: 5 ml Specimens: None Implantable Devices: none * No implants in log * Drains: None Complications: None I/primary surgeon/proceduralist performed the procedure with assistance. Viktor Vences [facility] CNCOon 09-12-2024 CNCO Letter Text Normal [facility] L3890.6102on 05-14-2024 HEP B Surf Ag Non-Reactive Normal Nonreactive [facility] Comment on above: Result Comment: Reac tive: Presumptive evidence of HBV. Repeatedly reactive samples must be confirmed using a neutralization test ([employer] HBsAg Confirmatory Test) Non-Reactive: HBsAg not detected; does not exclude the possibility of exposure to HBV Performed By: #### L 3890.6102 ####[facility] [id number] [place], [address] CT ABD/PEL WO IVCONon 2024 CT ABD/PEL WO IVCON * * *Final Report* * * DATE OF EXAM: Apr 17 2024 9:16AM [facility] 0531 - CT ABD/PEL WO IVCON / PROCEDURE REASON: Chronic renal failure, unspecified CKD stage * * * * Physician Interpretation * * * * EXAMINATION: CT ABDOMEN AND PELVIS WITH IV CONTRAST HISTORY: 24 years old Male undergoing preoperative evaluation for possible renal transplant. TECHNIQUE: CT of the abdomen and pelvis was performed using standard technique, scanning from the esophageal diaphragmatic hiatus to the symphysis pubis. MQ: CTAP_3 Contrast: IV contrast: None Oral contrast: None CT Radiation dose: Integrated Dose-length product (DLP) = 285 mGy*cm. CT Dose Reduction Employed: Automated exposure control (AEC) COMPARISON: CT chest, abdomen, pelvis 03/18/2022 RESULT: Vascular Calcifications: Aortic and iliac arteries and vascular calcifications: No abdominal aortic or iliac artery aneurysm. Abdominal aorta: No atherosclerotic calcification Right iliac: * Common iliac artery: No atherosclerotic calcification * External iliac artery: No atherosclerotic calcification * Internal iliac artery: No atherosclerotic calcification Left iliac: * Common iliac artery: No atherosclerotic calcification * External iliac artery: No atherosclerotic calcification * Internal iliac artery: No atherosclerotic calcification Abdomen / Pelvis: Liver: Unremarkable. Biliary: Gallbladder is collapsed.. Spleen: No splenomegaly. Pancreas: Unremarkable. Adrenals: No mass. Kidneys: The bilateral kidneys are atrophic. There is no calculus, hydronephrosis or finding to suggest a cyst or mass in the unenhanced kidney. GI Tract: No bowel dilation. Normal appendix. Lymph Nodes: No lymphadenopathy. Mesentery/peritoneum: No ascites. Retroperitoneum: No mass. Pelvis: No mass or ascites. Bones/Soft Tissues: No acute abnormality. Lower thorax: Unremarkable. IMPRESSION: No aortobiiliac vascular calcifications. Rn Lvn: [facility] Transcribe Date/Time: Apr 17 2024 9:22A Dictated by : SHOAIB MENDOZA MD This examination was interpreted and the report reviewed and electronically signed by: ISABELL ANDERSON MD on Apr 17 2024 9:58AM EST [id number] Normal [facility] CT Abdomen and Pelvis WO con traston 04-17-2024 Radiology Study observation (narrative) [facility] IMPRESSION: No aortobiiliac vascular calcifications. Rn Lvn: [facility] Transcribe Date/Time: Apr 17 2024 9:22A Dictated by : SHOAIB MENDOZA MD This examination was interpreted and the report reviewed and electronically signed by: ISABELL ANDERSON MD on Apr 17 2024 9:58AM EST DIVISION OF RADIOLOGY * * *Final Report* * * DATE OF EXAM: Apr 17 2024 9:16AM [facility]31 - CT ABD/PEL WO IVCON / PROCEDURE REASON: Chronic renal failure, unspecified CKD stage * * * * Physician Interpretation * * * * EXAMINATION: CT ABDOMEN AND PELVIS WITH IV CONTRAST HISTORY: 24 years old Male undergoing preoperative evaluation for possible renal transplant. TECHNIQUE: CT of the abdomen and pelvis was performed using standard technique, scanning from the esophageal diaphragmatic hiatus to the symphysis pubis. MQ: CTAP_3 Contrast: IV contrast: None Oral contrast: None CT Radiation dose: Integrated Dose-length product (DLP) = 285 mGy*cm. CT Dose Reduction Employed: Automated exposure control (AEC) COMPARISON: CT chest, abdomen, pelvis 03/18/2022 RESULT: Vascular Calcifications: Aortic and iliac arteries and vascular calcifications: No abdominal aortic or iliac artery aneurysm. Abdominal aorta: No atherosclerotic calcification Right iliac: * Common iliac artery: No atherosclerotic calcification * External iliac artery: No atherosclerotic calcification * Internal iliac artery: No atherosclerotic calcification Left iliac: * Common iliac artery: No atherosclerotic calcification * External iliac artery: No atherosclerotic calcification * Internal iliac artery: No atherosclerotic calcification Abdomen / Pelvis: Liver: Unremarkable. Biliary: Gallbladder is collapsed.. Spleen: No splenomegaly. Pancreas: Unremarkable. Adrenals: No mass. Kidneys: The bilateral kidneys are atrophic. There is no calculus, hydronephrosis or finding to suggest a cyst or mass in the unenhanced kidney. GI Tract: No bowel dilation. Normal appendix. Lymph Nodes: No lymphadenopathy. Mesentery/peritoneum: No ascites. Retroperitoneum: No mass. Pelvis: No mass or ascites. Bones/Soft Tissues: No acute abnormality. Lower thorax: Unremarkable. DIVISION OF RADIOLOGY Provider, [facility] - 04/17/2024 * * *Final Report* * * DATE OF EXAM: Apr 17 2024 9:16AM [facility] 0531 - CT ABD/PEL WO IVCON / PROCEDURE REASON: Chronic renal failure, unspecified CKD stage * * * * Physician Interpretation * * * * EXAMINATION: CT ABDOMEN AND PELVIS WITH IV CONTRAST HISTORY: 24 years old Male undergoing preoperative evaluation for possible renal transplant. TECHNIQUE: CT of the abdomen and pelvis was performed using standard technique, scanning from the esophageal diaphragmatic hiatus to the symphysis pubis. MQ: CTAP_3 Contrast: IV contrast: None Oral contrast: None CT Radiation dose: Integrated Dose-length product (DLP) = 285 mGy*cm. CT Dose Reduction Employed: Automated exposure control (AEC) COMPARISON: CT chest, abdomen, pelvis 03/18/2022 RESULT: Vascular Calcifications: Aortic and iliac arteries and vascular calcifications: No abdominal aortic or iliac artery aneurysm. Abdominal aorta: No atherosclerotic calcification Right iliac: * Common iliac artery: No atherosclerotic calcification * External iliac artery: No atherosclerotic calcification * Internal iliac artery: No atherosclerotic calcification Left iliac: * Common iliac artery: No atherosclerotic calcification * External iliac artery: No atherosclerotic calcification * Internal iliac artery: No atherosclerotic calcification Abdomen / Pelvis: Liver: Unremarkable. Biliary: Gallbladder is collapsed.. Spleen: No splenomegaly. Pancreas: Unremarkable. Adrenals: No mass. Kidneys: The bilateral kidneys are atrophic. There is no calculus, hydronephrosis or finding to suggest a cyst or mass in the unenhanced kidney. GI Tract: No bowel dilation. Normal appendix. Lymph Nodes: No lymphadenopathy. Mesentery/peritoneum: No ascites. Retroperitoneum: No mass. Pelvis: No mass or ascites. Bones/Soft Tissues: No acute abnormality. Lower thorax: Unremarkable. IMPRESSION IMPRESSION: No aortobiiliac vascular calcifications. Rn Lvn: [facility] Transcribe Date/Time: Apr 17 2024 9:22A Dictated by : SHOAIB MENDOZA MD This examination was interpreted and the report reviewed and electronically signed by: ISABELL ANDERSON MD on Apr 17 2024 9:58AM EST [facility] CT Abdomen and Pelvis WO con trastOrdered By: [facility] Provider on 04-17-2024 [facility] KID K/P PANC REC HLA AB SCRN on 04-17-2024 ALLOGEN RESULTS TO FOLLOW See Allogen report to follow Normal [facility] Comment on above: Order Comment: Speci men Type: BLOOD SPECIMENOrdering Facility: [facility] Address: [address] [place] [address] Performed By: #### K PRHAS ####[facility] [id number] [place] [address] [place] NICOTINE/COTININEon 04-17-19 25 Cotinine [Mass/Vol] <2 Normal <2 [facility] Comment on above: Order Comment: Speci men Type: BLOOD SPECIMENOrdering Facility: [facility] Address: [address] [place] [address] Result Comment: Acti ve tobacco product user: Nicotine concentration: 30 - 50 ng/mL Cotinine concentration: 200 - 800 ng/mL Passive exposure to tobacco: Nicotine concentration: < 2 ng/mL Cotinine concentration: < 8 ng/mL Unexposed non-tobacco user or abstinent user for > 2 weeks: Nicotine concentration: < 2 ng/mL Cotinine concentration: < 2 ng/mL This test was developed, and its performance characteristics determined by the [facility] Department of Pathology and Laboratory Medicine. It has not been cleared or approved by the FDA. The [facility] Department of Pathology and Laboratory Medicine is regulated under CLIA as qualified to perform high-complexity testing. This test is used for clinical purposes. It should not be regarded as investigational or for research. Performed By: #### N ICOT ####[facility] LABCLIA [id number] [place] [address] [place] Nicotine [Mass/Vol] <2 Normal <2 [facility] Comment on above: Order Comment: Speci men Type: BLOOD SPECIMENOrdering Facility: [facility] Address: [address] [place] [address] Performed By: #### N ICOT ####[facility] LABCLIA [id number] [address] STATES OF [facility] CT HEAD WO IV CONTRASTon CT HEAD WO IV CONTRAST Interpreted By: Bert Winkler, STUDY: CT HEAD WO IV CONTRAST; 03/06/2024 4:10 am INDICATION: Signs/Symptoms:HEAD INJURY. COMPARISON: 05/09/2023. ACCESSION NUMBER(S): [id number] ORDERING CLINICIAN: ISAC PADGETT TECHNIQUE: Noncontrast axial CT scan of head was performed. Angled reformats in brain and bone windows were generated. The images were reviewed in bone, brain, blood and soft tissue windows. FINDINGS: CSF Spaces: The ventricles, sulci and basal cisterns are within normal limits. There is no extraaxial fluid collection. Parenchyma: The guzman-white differentiation is intact. There is no mass effect or midline shift. There is no intracranial hemorrhage. Calvarium: The calvarium is unremarkable. Paranasal sinuses and mastoids: Visualized paranasal sinuses and mastoids are clear. IMPRESSION: No evidence of acute intracranial abnormality. MACRO: None Signed by: Bert Winkler 03/06/2024 4:29 AM Dictation workstation: [id number] [facility] CT Head WO contraston 2023 No evidence of acute intracranial abnormality. MACRO: None Signed by: Bert Winkler 03/06/2024 4:29 AM Dictation workstation: [id number] [facility] Interpreted By: Bert Richardson, STUDY: CT HEAD WO IV CONTRAST; 03/06/2024 4:10 am INDICATION: Signs/Symptoms:HEAD INJURY. COMPARISON: 05/09/2023. ACCESSION NUMBER(S): [id number] ORDERING CLINICIAN: ISAC PADGETT TECHNIQUE: Noncontrast axial CT scan of head was performed. Angled reformats in brain and bone windows were generated. The images were reviewed in bone, brain, blood and soft tissue windows. FINDINGS: CSF Spaces: The ventricles, sulci and basal cisterns are within normal limits. There is no extraaxial fluid collection. Parenchyma: The guzman-white differentiation is intact. There is no mass effect or midline shift. There is no intracranial hemorrhage. Calvarium: The calvarium is unremarkable. Paranasal sinuses and mastoids: Visualized paranasal sinuses and mastoids are clear. [facility] Bert Winkler MD - 03/06/2024 Interpreted By: Bert Winkler, STUDY: CT HEAD WO IV CONTRAST; 03/06/2024 4:10 am INDICATION: Signs/Symptoms:HEAD INJURY. COMPARISON: 05/09/2023. ACCESSION NUMBER(S): [id number] ORDERING CLINICIAN: ISAC PADGETT TECHNIQUE: Noncontrast axial CT scan of head was performed. Angled reformats in brain and bone windows were generated. The images were reviewed in bone, brain, blood and soft tissue windows. FINDINGS: CSF Spaces: The ventricles, sulci and basal cisterns are within normal limits. There is no extraaxial fluid collection. Parenchyma: The guzman-white differentiation is intact. There is no mass effect or midline shift. There is no intracranial hemorrhage. Calvarium: The calvarium is unremarkable. Paranasal sinuses and mastoids: Visualized paranasal sinuses and mastoids are clear. IMPRESSION: No evidence of acute intracranial abnormality. MACRO: None Signed by: Bert Winkler 03/06/2024 4:29 AM Dictation workstation: [id number] [facility] Work Phone: Radiology Study observation (narrative) [facility] Work Phone: CT Head WO contrastOrdered B y: Bert Winkler on 03-06-2024 [facility] Work Phone: CNCOon 03-05-2024 CNCO Letter Text Normal [facility] BLOOD TB SCREENon 03-04-2024 M. tuberculosis tuberculin stim IFN-g Ql (Bld) Negative Normal [facility] Comment on above: Order Comment: Speci men Type: BLOOD SPECIMENOrdering Facility: [facility] Address: [address] [place] [address] Performed By: #### I NFTBP ####[facility] LABCLIA [id number] [facility] [id number] [place] [address] [place] MITOGEN MINUS NIL >10.00 Normal >=0.50 [facility] Comment on above: Order Comment: Speci men Type: BLOOD SPECIMENOrdering Facility: [facility] Address: [address] [place] [address] Performed By: #### I NFTBP ####[facility] LABCLIA [id number] [place] [address] [place] TB GAMMA INTERPRETATION Infection with M. tuberculosis complex is unlikely. If latent tuberculosis infection is highly suspected, a negative result does not rule out the infection. Specimens from immunocompromised patients and those <5 years of age may show false negative results. In case of a contact investigation, please repeat 8-12 weeks after a known exposure. Normal [facility] Comment on above: Order Comment: Speci men Type: BLOOD SPECIMENOrdering Facility: [facility] Address: [address] [place] [address] Performed By: #### I NFTBP ####[facility] LABCLIA [id number] [place] [address] [place] TB NIL 0.00 IU/mL Normal <=8.00 [facility] Comment on above: Order Comment: Speci men Type: BLOOD SPECIMENOrdering Facility: [facility] Address: [address] [place] [address] Performed By: #### I NFTBP ####[facility] LABCLIA [id number] [place] [address] [place] TB1 AG MINUS NIL 0.04 IU/mL Normal <0.35 [facility] Comment on above: Order Comment: Speci men Type: BLOOD SPECIMENOrdering Facility: [facility] Address: [address] [place] [address] Performed By: #### I NFTBP ####[facility] LABCLIA [id number] [place] [address] [place] TB2 AG MINUS NIL 0.05 IU/mL Normal <0.35 [facility] Comment on above: Order Comment: Speci men Type: BLOOD SPECIMENOrdering Facility: [facility] Address: [address] [place] [address] Performed By: #### I NFTBP ####[facility] LABCLIA [id number] [place] [address] [place] CMV IgG Qnon 03-04-2024 CMV IGG QUAL Negative Normal Negative [facility] Comment on above: Order Comment: Speci men Type: BLOOD SPECIMENOrdering Facility: [facility] Address: [address] [place] [address] Result Comment: No s erological evidence of past exposure to Cytomegalovirus. Cannot exclude recent infection if the specimen collected within 4-6 weeks after infection. Performed By: #### 7 852-7, MEASLG, [id number] ####[facility] LABIA [id number] [place] [address] [place] CMV IgG SerPl-aCncon 024 CMV IgG Qn 0.46 U/mL Normal [facility] Comment on above: Order Comment: Speci men Type: BLOOD SPECIMENOrdering Facility: [facility] Address: [address] [place] [address] Result Comment: The magnitude of the measured result is not indicative of the amount of antibody present. U/mL values are interpreted as follows: Negative <0.6 Equivocal 0.6 to <0.70 Positive >=0.70 Performed By: #### 7 852-7, MEASLG, [id number] ####[facility] LABIA [id number] [place] [address] [place] CNOVon 03-04-2024 CNOV Office Visit (TXCTGL ) LAWSON DOYLE ([id number]) 2000 M Date Time Provider Department 03/04/24 4:00 PM KIDNEY TXP COORDINATORS TXCTGL During your visit today, we recorded the following information about you: Velma Kwong RN 03/04/2024 1:40 PM Signed As part of your transplant re-evaluation you are required to complete the following additional items. You are currently listed as inactive on the Kidney transplant waiting. The most efficient way to complete your re-evaluation is to have these items completed as soon as possible so that we may review the results. Please contact us if you have any questions regarding the requested information. Failure to complete the testing requested may render you inactive on the waiting list. The following will be need to be completed at a [facility] facility: CARDIAC: ECG - today CANCER SCREENING: CXR PA AND Lat ADDITIONAL CONSULTS Social work clearance after negative cotinine test Imaging Studies: CT of abdomen and pelvis without contrast - this nurse to order Miscellaneous Items: Labs - today Cotinine test - today Influenza vaccine suggested COVID vaccine suggested You are responsible for scheduling your needed testing/consults. Please feel free to call [phone] to arrange. Outside test results should be faxed to [phone]. Please review the kidney transplant educational materials on line at [email or web address] Sign-in: Kidney To check on your status on the wait list, please contact your coordinator, Velma Kwong RN [phone]. You will need to follow up with the transplant team in 1 year for reassessment. Velma Kwong RN Kidney/Pancreas Pre-Elevator Troubleshooter [facility] Referring Provider: HUA WHEELER [[id number]] Allergies As of Date: 03/04/2024 (No Known Allergies) Date Reviewed: 08/06/2023 Reviewed by: Alice York RN - Fully Assessed Primary Visit Diagnosis:Pre-transplan t evaluation for ESRD (end stage renal disease) [Z01.818] Prescriptions as of 03/04/2024 - RENAPLEX-D 800 mcg-12.5 mg -2,000 unit tab Take 1 tablet by mouth once daily. - carvedilol (COREG) 12.5 mg tablet twice daily with meals. - losartan (COZAAR) 100 mg tablet once daily. - ondansetron orally disintegrating (ZOFRAN ODT) 4 mg disintegrating tablet - sevelamer carbonate (RENVELA) 800 mg tablet once daily. - tuberculin,purif.prot.d eriv. (TUBERSOL INTRADERM.) 0.1 mL by INTRADERMAL route. - doxercalciferol (HECTOROL INTRAVENOUS) 1 mcg. Problem List As Of Date 03/04/2024 Noted Resolved Alport syndrome [Q87.81] 04/18/2021 Acute renal failure (HCC) [N17.9] 02/18/2022 ESRD (end stage renal disease) (HCC) [N18.6] 04/18/2021 Hypertensive urgency [I16.0] 03/04/2022 Iron deficiency [E61.1] 03/21/2022 Secondary hyperparathyroidism of renal origin (*03/21/2022 Stage 4 chronic kidney disease (HCC) [N18.4] 02/21/2022 Anemia due to chronic kidney disease [N18.9, D6*04/20/2022 Primary hypertension [I10] 04/20/2022 Complication of AV dialysis fistula [T82.9XXA] 06/06/2022 ESRD on dialysis (HCC) [N18.6, Z99.2] 10/31/2022 Other instructions from your clinician: As part of your transplant re-evaluation you are required to complete the following additional items. You are currently listed as inactive on the Kidney transplant waiting. The most efficient way to complete your re-evaluation is to have these items completed as soon as possible so that we may review the results. Please contact us if you have any questions regarding the requested information. Failure to complete the testing requested may render you inactive on the waiting list. The following will be need to be completed at a [facility] facility: CARDIAC: ECG - today CANCER SCREENING: CXR PA AND Lat ADDITIONAL CONSULTS Social work clearance after negative cotinine test Imaging Studies: CT of abdomen and pelvis without contrast - this nurse to order Miscellaneous Items: Labs - today Cotinine test - today Influenza vaccine suggested COVID vaccine suggested You are responsible for scheduling your needed testing/consults. Please feel free to call [phone] to arrange. Outside test results should be faxed to [phone]. Please review the kidney transplant educational materials on line at [email or web address] Sign-in: Kidney To check on your status on the wait list, please contact your coordinator, Velma Kwong RN [phone]. You will need to follow up with the transplant team in 1 year for reassessment. Velma Kwong RN Kidney/Pancreas Pre-Elevator Troubleshooter [facility] Encounter Status:Closed by VELMA KWONG on 03/04/24 Normal [facility] CNOV Office Visit (TXCTGL ) LAWSON DOYLE ([id number]) 2000 M Date Time Provider Department 03/04/24 3:30 PM WAIT LIST TXCTGL During your visit today, we recorded the following information about you: Temperature Pulse Blood pressure Weight 98.6 degrees 94/minute 140/92 83.5 kg Height 1.778 m Hua Wheeler MD 03/04/2024 1:30 PM Signed [facility] KIDNEY AND PANCREAS TRANSPLANT TRANSPLANT RE-EVALUATION Patient is a 24 year old male here for re-evaluation of his Kidney transplant status. Dialysis Start Date: 03/18/2022 Dialysis Type: hemodialysis, M-W-F Dialysis Access: right upper extremity arteriovenous fistula Dialysis Unit: [address] [address] Referring/Local Cane Flume Watcher: Dr Higuera Last evaluation: 12/21/2022 Listed for transplant: 09/11/2023 Status on waitlist: INACTIVE Reason for Re-Evaluation: 24 year old male here for kidney transplant waitlist re-evaluation. 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 Patient has a significant family history affecting his mother, brother, aunt, and cousins. Many of these family members have also received transplants. His Alports was never biopsy proven nor genetic testing completed, diagnosed solely on family history. Patient started dialysis 03/18/22 via R AV fistula. Hypercoagulable (history of DVT/PE, miscarriages, prior use of anticoagulation, etc.):No Malignancy (including skin cancer): No Peripheral Arterial Disease: (TIA non-embolic, CVA non-embolic, amputation, carotid artery stenosis, abnormal PVRs, claudication history, decreased pulses, etc.):No Stroke: NO Claudication: NO Carotid Artery Stenosis: NO Diagnosis: CKD: Yes: Cause of CKD: Alport's Urine Output: 0.5L daily DM: No RI, CVA, PE/DVT: No Anticoagulation: No Immunosuppression: No Malignancies: No Recent Hospitalizations: No Infections: No Living Donors: No COVID Status: Not vaccinated Abdominal/Pelvic surgeries: None BP 140/92 Pulse 94 Temp 37 ?C (98.6 ?F) (Temporal) Ht 177.8 cm (5' 10") Wt 83.5 kg (184 lb 1.4 oz) SpO2 98% BMI 26.41 kg/m? Types of donors patient is willing to consider: KDPI score > 85% No Donors from Cardiac (DCD) Yes Hepatitis B Core Antibody Pos Donors No Hepatitis C Pos Donors No Sensitizations: Blood transfusions: no Willing to accept blood products if needed: yes Prior transplant: No Rabbit: Yes: Hunting and Dressing PRA: Serum Date: 12/17/2023 Total PRA: 7 Strong PRA: 0 Strong antibodies: 0 Weak antibodies: DPB1*10, DPB1*14, DPB1 * 23 ABO: 12/21/2022 ABO A ABO A Rh(D) Positive Rh(D) Positive Antibody Screen Negative Type+Scr Expiration 12/24/2022 23:59 Historical Ab Scr Status NEGATIVE PAST MEDICAL HISTORY Diagnosis Date Complication of AV dialysis fistula 06/06/2022 HTN (hypertension) PAST SURGICAL HISTORY Procedure Laterality Date IR TUNNELLED DIALYSIS CATHETER TONGUE SURGERY HX Current Outpatient Medications Medication Sig RENAPLEX-D 800 mcg-12.5 mg -2,000 unit tab Take 1 tablet by mouth once daily. carvedilol (COREG) 12.5 mg tablet twice daily with meals. losartan (COZAAR) 100 mg tablet once daily. ondansetron orally disintegrating (ZOFRAN ODT) 4 mg disintegrating tablet sevelamer carbonate (RENVELA) 800 mg tablet once daily. tuberculin,purif.prot.d eriv. (TUBERSOL INTRADERM.) 0.1 mL by INTRADERMAL route. doxercalciferol (HECTOROL INTRAVENOUS) 1 mcg. No current facility-administered medications for this visit. MOST RECENT / UPDATED TESTING: Cardiac: EK08/06/2023: Diagnosis: Sinus rhythm Normal ECG Echo: 01/17/2023: CONCLUSIONS: - Technically difficult exam due to limited imaging window. Cannot fully visualize the right ventricle. - Exam indication: Pre Op Kidney Transplant - The left ventricle is normal in size. Left ventricular systolic function is normal. EF = 63 ? 5% (2D biplane) Normal left ventricular diastolic function. - Right ventricular systolic function is most likely normal by tissue Doppler and Tricuspid annular displacement. The right ventricular size cannot be accurately determined due to limited visualization. If clinically indicated, consider adjunctive imaging modality to better visualize right ventricular size and function. - There are no significant valvular abnormalities. - The patient has not had a prior CC echocardiographic exam for comparison. Vascular/Imaging: CTA chest/abdomen/pelvis: 05/09/2023: IMPRESSION: No acute traumatic abnormality in the chest, abdomen, or pelvis. No acute abnormality in the thoracic or lumbar spine. Right lower lobe pulmonary nodule, stable from 03/21/2022. CT Abd/Pelvis: 03/04/2022: IMPRESSION: 1. Question mild gastric wall thickening. Correlate clinically for possible gastritis. 2. Small focal nodular area of consolidation in t (more content not included)... Normal [facility] CNOV Office Visit (TXCTGL ) LAWSON DOYLE ([id number]) 2000 M Date Time Provider Department 03/04/24 3:30 PM UROLOGY WAIT LIST TXCTGL During your visit today, we recorded the following information about you: Temperature Pulse Blood pressure Weight 98.6 degrees 94/minute 140/92 83.5 kg Height 1.778 m Raimro Rico MD 03/04/2024 2:09 PM Signed [facility] KIDNEY AND PANCREAS TRANSPLANT TRANSPLANT RE-EVALUATION Patient is a 24 year old male here for re-evaluation of his Kidney transplant status. Dialysis Start Date: 03/18/2022 Dialysis Type: hemodialysis, M-W-F Dialysis Access: right upper extremity arteriovenous fistula Dialysis Unit: [facility] [address] [place] [address] Referring/Local Cane Flume Watcher: Dr iHguera Last evaluation: 12/21/2022 Listed for transplant: 09/11/2023 Status on waitlist: INACTIVE Reason for Re-Evaluation: 24 year old male here for kidney transplant waitlist re-evaluation. 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 Patient has a significant family history affecting his mother, brother, aunt, and cousins. Many of these family members have also received transplants. His Alports was never biopsy proven nor genetic testing completed, diagnosed solely on family history. Patient started dialysis 03/18/22 via R AV fistula. In this OV we know pt : - On dialysis for 2 years has a fistula ,which is going good - No medication needed during dialysis - He needs to stop smoking - Makes urine around 500 ml. Hypercoagulable (history of DVT/PE, miscarriages, prior use of anticoagulation, etc.):No Malignancy (including skin cancer): No Peripheral Arterial Disease: (TIA non-embolic, CVA non-embolic, amputation, carotid artery stenosis, abnormal PVRs, claudication history, decreased pulses, etc.):No Stroke: NO Claudication: NO Carotid Artery Stenosis: NO Diagnosis: CKD: Yes: Cause of CKD: Alport's Urine Output: 0.5L daily DM: No RI, CVA, PE/DVT: No Anticoagulation: No Immunosuppression: No Malignancies: No Recent Hospitalizations: No Infections: No Living Donors: No COVID Status: Not vaccinated Abdominal/Pelvic surgeries: None BP 140/92 Pulse 94 Temp 37 ?C (98.6 ?F) (Temporal) Ht 177.8 cm (5' 10") Wt 83.5 kg (184 lb 1.4 oz) SpO2 98% BMI 26.41 kg/m? Types of donors patient is willing to consider: KDPI score > 85% No Donors from Cardiac (DCD) Yes Hepatitis B Core Antibody Pos Donors No Hepatitis C Pos Donors No Sensitizations: Blood transfusions: no Willing to accept blood products if needed: yes Prior transplant: No Rabbit: Yes: Hunting and Dressing PRA: Serum Date: 12/17/2023 Total PRA: 7 Strong PRA: 0 Strong antibodies: 0 Weak antibodies: DPB1*10, DPB1*14, DPB1 * 23 ABO: 12/21/2022 ABO A ABO A Rh(D) Positive Rh(D) Positive Antibody Screen Negative Type+Scr Expiration 12/24/2022 23:59 Historical Ab Scr Status NEGATIVE PAST MEDICAL HISTORY Diagnosis Date Complication of AV dialysis fistula 06/06/2022 HTN (hypertension) PAST SURGICAL HISTORY Procedure Laterality Date IR TUNNELLED DIALYSIS CATHETER TONGUE SURGERY HX Current Outpatient Medications Medication Sig RENAPLEX-D 800 mcg-12.5 mg -2,000 unit tab Take 1 tablet by mouth once daily. carvedilol (COREG) 12.5 mg tablet twice daily with meals. losartan (COZAAR) 100 mg tablet once daily. ondansetron orally disintegrating (ZOFRAN ODT) 4 mg disintegrating tablet sevelamer carbonate (RENVELA) 800 mg tablet once daily. tuberculin,purif.prot.d eriv. (TUBERSOL INTRADERM.) 0.1 mL by INTRADERMAL route. doxercalciferol (HECTOROL INTRAVENOUS) 1 mcg. No current facility-administered medications for this visit. MOST RECENT / UPDATED TESTING: Cardiac: EK08/06/2023: Diagnosis: Sinus rhythm Normal ECG Echo: 01/17/2023: CONCLUSIONS: - Technically difficult exam due to limited imaging window. Cannot fully visualize the right ventricle. - Exam indication: Pre Op Kidney Transplant - The left ventricle is normal in size. Left ventricular systolic function is normal. EF = 63 ? 5% (2D biplane) Normal left ventricular diastolic function. - Right ventricular systolic function is most likely normal by tissue Doppler and Tricuspid annular displacement. The right ventricular size cannot be accurately determined due to limited visualization. If clinically indicated, consider adjunctive imaging modality to better visualize right ventricular size and function. - There are no significant valvular abnormalities. - The patient has not had a prior CC echocardiographic exam for comparison. Vascular/Imaging: CTA chest/abdomen/pelvis: 05/09/2023: IMPRESSION: No acute traumatic abnormality in the chest, abdomen, or pelvis. No acute abnormality in the thoracic or lumbar spine. Right lower lobe pulmonary nodule, stable (more content not included)... Normal [facility] CNOV Office Visit (TXCTGL ) RUBENS,LAWSON ([id number]) 2000 M Date Time Provider Department 03/04/24 1:30 PM KIDNEY TXP COORDINATORS TXCTGL During your visit today, we recorded the following information about you: Referring Provider: HUA WHEELER [[id number]] Allergies As of Date: 03/04/2024 (No Known Allergies) Date Reviewed: 08/06/2023 Reviewed by: Alice York RN - Fully Assessed Primary Visit Diagnosis:Pre-transplan t evaluation for ESRD (end stage renal disease) [Z01.818] Prescriptions as of 03/04/2024 - RENAPLEX-D 800 mcg-12.5 mg -2,000 unit tab Take 1 tablet by mouth once daily. - carvedilol (COREG) 12.5 mg tablet twice daily with meals. - losartan (COZAAR) 100 mg tablet once daily. - ondansetron orally disintegrating (ZOFRAN ODT) 4 mg disintegrating tablet - sevelamer carbonate (RENVELA) 800 mg tablet once daily. - tuberculin,purif.prot.d eriv. (TUBERSOL INTRADERM.) 0.1 mL by INTRADERMAL route. - doxercalciferol (HECTOROL INTRAVENOUS) 1 mcg. Problem List As Of Date 03/04/2024 Noted Resolved Alport syndrome [Q87.81] 04/18/2021 Acute renal failure (HCC) [N17.9] 02/18/2022 ESRD (end stage renal disease) (HCC) [N18.6] 04/18/2021 Hypertensive urgency [I16.0] 03/04/2022 Iron deficiency [E61.1] 03/21/2022 Secondary hyperparathyroidism of renal origin (*03/21/2022 Stage 4 chronic kidney disease (HCC) [N18.4] 02/21/2022 Anemia due to chronic kidney disease [N18.9, D6*04/20/2022 Primary hypertension [I10] 04/20/2022 Complication of AV dialysis fistula [T82.9XXA] 06/06/2022 ESRD on dialysis (HCC) [N18.6, Z99.2] 10/31/2022 Encounter Status:Closed by VELMA KWONG on 03/04/24 [facility] CNOV Office Visit (TXCTGL ) LAWSON DOYLE ([id number]) 2000 M Date Time Provider Department 03/04/24 9:30 AM WAITLIST GROUP EDUCATION TXCTGL During your visit today, we recorded the following information about you: Elbert Lee RN 03/04/2024 12:10 PM Signed Kidney/Pancreas Transplant Wait List Education Note Type of Transplant: Kidney Informed Consent for Evaluation signed: Yes Informed Consent for Addition to Wait List Signed: Yes Multiple Listing Form signed: Yes READINESS TO LEARN: Cognitive Ability: Alert and oriented Motivation to Learn: Eager Interested Family Support: Unable to assess - Family not present Instruction Provided to: Patient Patient Learns Best by: Multiple Methods Factors Affecting Learning: None Physical Limitations Affecting Learning: None Supplemental Material: -[facility]OS: Questions AND Answers for Transplant Candidates about Multiple Listing and Waiting Time Transfer -[facility]OS: Questions AND Answers for Transplant Candidates about Kidney Allocation Policy -Current SRTR Program Summary -Informed Consent for Transplant Program Participation patient education packet -National Kidney Registry pamphlet: Yes -Center for Disease Control General Information: Hepatitis C Handout -Covid-19 Vaccination for Transplant Candidates Additional Information: -The patient was re-educated regarding the responsibilities of being listed on the transplant waitlist. - Patient encouraged to avoid blood transfusion unless it's deemed a medically necessary. -Educated patient on the current allocation policy per [facility]OS regarding kidney and/or kidney-pancreas/pancrea s transplant. - Education covered the need for monthly serum samples to be drawn and sent to the [facility] while actively listed. - The patient was told to inform the Pre Transplant office if there are any changes in their medical condition, demographics, insurance coverage ( including medication coverage) and or dialysis units. - The patient was reminded to fax test results of studies that were obtained outside [facility] facilities. -Explained lifetime immunosuppression therapy and frequency of blood draws/labs post-op and post-op course of treatment. Method of Instruction: Group class instruction Patient/Family Response: Patient asked appropriate questions, which were answered satisfactorily. PAULETTE Nevarez, RN, [facility] Kidney/Pancreas Pre-Elevator Troubleshooter Allergies As of Date: 03/04/2024 (No Known Allergies) Date Reviewed: 08/06/2023 Reviewed by: Alice York, RN - Fully Assessed Reason for Visit: Patient Education [91] Primary Visit Diagnosis:Pre-transplan t evaluation for ESRD (end stage renal disease) [Z01.818] Prescriptions as of 03/04/2024 - RENAPLEX-D 800 mcg-12.5 mg -2,000 unit tab Take 1 tablet by mouth once daily. - carvedilol (COREG) 12.5 mg tablet twice daily with meals. - losartan (COZAAR) 100 mg tablet once daily. - ondansetron orally disintegrating (ZOFRAN ODT) 4 mg disintegrating tablet - sevelamer carbonate (RENVELA) 800 mg tablet once daily. - tuberculin,purif.prot.d eriv. (TUBERSOL INTRADERM.) 0.1 mL by INTRADERMAL route. - doxercalciferol (HECTOROL INTRAVENOUS) 1 mcg. Problem List As Of Date 03/04/2024 Noted Resolved Alport syndrome [Q87.81] 04/18/2021 Acute renal failure (HCC) [N17.9] 02/18/2022 ESRD (end stage renal disease) (HCC) [N18.6] 04/18/2021 Hypertensive urgency [I16.0] 03/04/2022 Iron deficiency [E61.1] 03/21/2022 Secondary hyperparathyroidism of renal origin (*03/21/2022 Stage 4 chronic kidney disease (HCC) [N18.4] 02/21/2022 Anemia due to chronic kidney disease [N18.9, D6*04/20/2022 Primary hypertension [I10] 04/20/2022 Complication of AV dialysis fistula [T82.9XXA] 06/06/2022 ESRD on dialysis (HCC) [N18.6, Z99.2] 10/31/2022 Encounter Status:Closed by ELBERT LEE on 03/04/24 [facility] Isaac 03-04-2024 CNPN Telephone (TXCTGL) LAWSON DOYLE ([id number]) 2000 M Date Time Provider Department 03/04/24 KIDNEY TXP COORDINATORS TXCTGL During your visit today, we recorded the following information about you: Ector Red 03/04/2024 9:23 AM Signed Alice from [facility] called in, she states need active order for Cxr, as the patient has an appointment today. I explained there was one previously in August 2023, linked to this appointment, she states it is not in the active orders, and will need another one filed in [facility] to have completed. Paged nurse coordinators due to urgency and call back number if needed is [phone]. Velma Blanton RN 03/04/2024 10:13 AM Signed New order placed at this time. Allergies As of Date: 03/04/2024 (No Known Allergies) Date Reviewed: 08/06/2023 Reviewed by: Alice York, TASHIA - Fully Assessed Reason for Visit: Chest X-Ray Order Request in [facility] [Other] Prescriptions as of 03/04/2024 - RENAPLEX-D 800 mcg-12.5 mg -2,000 unit tab Take 1 tablet by mouth once daily. - carvedilol (COREG) 12.5 mg tablet twice daily with meals. - losartan (COZAAR) 100 mg tablet once daily. - ondansetron orally disintegrating (ZOFRAN ODT) 4 mg disintegrating tablet - sevelamer carbonate (RENVELA) 800 mg tablet once daily. - tuberculin,purif.prot.d eriv. (TUBERSOL INTRADERM.) 0.1 mL by INTRADERMAL route. - doxercalciferol (HECTOROL INTRAVENOUS) 1 mcg. Problem List As Of Date 03/04/2024 Noted Resolved Alport syndrome [Q87.81] 04/18/2021 Acute renal failure (HCC) [N17.9] 02/18/2022 ESRD (end stage renal disease) (HCC) [N18.6] 04/18/2021 Hypertensive urgency [I16.0] 03/04/2022 Iron deficiency [E61.1] 03/21/2022 Secondary hyperparathyroidism of renal origin (*03/21/2022 Stage 4 chronic kidney disease (HCC) [N18.4] 02/21/2022 Anemia due to chronic kidney disease [N18.9, D6*04/20/2022 Primary hypertension [I10] 04/20/2022 Complication of AV dialysis fistula [T82.9XXA] 06/06/2022 ESRD on dialysis (HCC) [N18.6, Z99.2] 10/31/2022 Encounter Status:Closed by VELMA KWONG on 03/04/24 [facility]-04-2024 ECG COMPLETE Ventricular Rate : 7 7 BPM Atrial Rate : 77 BPM P-R Interval : 126 ms QRS Duration : 92 ms Q-T Interval : 384 ms QTC Calculation(Bazett) : 434 ms Calculated P [place] : 54 degrees Calculated R [place] : 51 degrees Calculated T [place] : 32 degrees NORMAL SINUS RHYTHM WITH SINUS ARRHYTHMIA NORMAL ECG Confirmed by TONI JAMES M.D. ([id number]) on 03/20/2024 1:29:36 PM NAME : LAWSON DOYLE PID : [id number] : 2000 Gender : Male Race : ORD : [id number] Procedure Date : Mar 04 2024 14:14:42 Edit Date : Mar 20 2024 13:29:42 Diagnosis: NORMAL SINUS RHYTHM WITH SINUS ARRHYTHMIA NORMAL ECG Confirmed by TONI JAMES M.D. ([id number]) on 03/20/2024 1:29:36 PM Test Reason : Location : 314 : J14 J14 Overread By : TONI JAMES M.D. Edited By : TONI JAMES M.D. Referred By : HUA WHEELER Acquired by : MOISES MARTINI Normal [facility] HBV core Ab Ser Qlon 024 HBV core Ab Ql (S) Negative Normal Negative [facility] Comment on above: Order Comment: Speci men Type: BLOOD SPECIMENOrdering Facility: [facility] Address: [address] [place] [address] Result Comment: No e vidence of current or past infection with Hepatitis B virus. Should recent infection be suspected, repeat testing may be considered 3-4 weeks after this draw. Performed By: #### 3 1201-7, 38655-3, 5195-3, 82566-2 ####[facility] LABCLIA [id number] [place] [address] [place] HBV surface Ab Ql (S)on 02-16 HBV surface Ab Qn (S) >1000.00 Normal [facility] Comment on above: Order Comment: Speci men Type: BLOOD SPECIMENOrdering Facility: [facility] Address: [address] [place] [address] Result Comment: <8 m IU/mL: No serological evidence of immunity to Hepatitis B Virus. >/= 8 to <12 mIU/mL: No serological evidence of immunity to Hepatitis B Virus. >/= 12 mIU/mL: Consistent with serological evidence of immunity to Hepatitis B Virus. Performed By: #### 3 1201-7, 12834-1, 5195-3, 87199-0 ####[facility] LABCLIA [id number] [place] [address] [place] HBV surface Ab Ser Qlon 02-16 HBV surface Ab Ql (S) Positive Normal [facility] Comment on above: Order Comment: Speci gayathri Type: BLOOD SPECIMENOrdering Facility: [facility] Address: [address] [place] [address] Result Comment: Cons istent with serological evidence of immunity to Hepatitis B Virus. Performed By: #### 3 1201-7, 63085-0, 5195-3, 15365-5 ####[facility] LABIA [id number] [place] [address] [place] HBV surface Ag Ser Qlon 02-16 HBV surface Ag Ql (S) Negative Normal Negative [facility] Comment on above: Order Comment: Speci men Type: BLOOD SPECIMENOrdering Facility: [facility] Address: [address] [place] [address] Performed By: #### 3 1201-7, 74283-3, 5195-3, 86325-6 ####[facility] [id number] [place] [address] [place] HCV Ab Ser Qlon 03-04-2024 HCV Ab Ql (S) Negative Normal Negative [facility] Comment on above: Order Comment: Speci men Type: BLOOD SPECIMENOrdering Facility: [facility] Address: [address] [place] [address] Result Comment: The result suggests no evidence of active infection with Hepatitis C virus. Should recent infection be suspected, repeat testing may be considered 4-6 weeks after this draw. Performed By: #### 1 6128-1 ####[facility] LABIA [id number] [place] [address] [place] HCV RNA MIGUEL+probe Qnon 03-04 HCV RNA MIGUEL+probe Ql Not detected Normal Not detected [facility] Comment on above: Order Comment: Speci men Type: BLOOD SPECIMENOrdering Facility: [facility] Address: [address] [place] [address] Performed By: #### 1 1011-4 ####[facility] LABIA [id number] [place] [address] [place] HIV 1+2 Ab IA Qlon HIV 1 and 2 Ab IA.rapid Nom (S/P/Bld) Normal [facility] Comment on above: Order Comment: Speci men Type: BLOOD SPECIMENOrdering Facility: [facility] Address: [address] [place] [address] Result Comment: Test not indicated. Performed By: #### 3 1201-7, 40729-7, 5195-3, 17450-9 ####[facility] LABCLIA [id number] [place] [address] [place] HIV 1+2 Ab+HIV1 p24 Ag IA Ql Non-Reactive Normal Nonreactive [facility] Comment on above: Order Comment: Speci men Type: BLOOD SPECIMENOrdering Facility: [facility] Address: [address] [place] [address] Performed By: #### 3 1201-7, 24149-1, 5-3, 20701-3 ####[facility] LABCLIA [id number] [place] [address] [place] HIV immunoassay testing algorithm interpretation (S/P/Bld) [Interp] Normal [facility] Comment on above: Order Comment: Speci men Type: BLOOD SPECIMENOrdering Facility: [facility] Address: [address] [place] [address] Result Comment: No e vidence of HIV-1 or HIV-2 infection. Should recent infection be suspected, repeat testing may be considered 2-3 weeks after this draw. [place] Rev. Code 3701.243(E): This information has been disclosed to you from confidential records protected from disclosure by state law. ???You shall make no further disclosure of this information without the specific, written, and informed release of the individual to whom it pertains or as otherwise permitted by state law. A general authorization for the release of medical or other information is not sufficient for the purpose of the release of HIV test results or diagnoses. Performed By: #### 3 1201-7, 71725-0, 5195-3, 98847-3 ####[facility] LABCLIA [id number] [place] [id number] [place] KID K/P PANC REC HLA AB SCRN on 03-04-2024 ALLOGEN RESULTS TO FOLLOW See Allogen report to follow Normal [facility] Comment on above: Order Comment: Speci men Type: BLOOD SPECIMENOrdering Facility: [facility] Address: [address] [place] [address] Performed By: #### K PRHAS ####[facility] [id number] [place] [address] [place] RUBEOLA (MEASLES)IGGon 03-04 MEASLES IGG AB, QUAL Positive Normal Positive [facility] Comment on above: Order Comment: Speci men Type: BLOOD SPECIMENOrdering Facility: [facility] Address: [address] [place] [address] Result Comment: The result suggests recent or past exposure to Measles virus or Measles vaccination. The current test does not detect neutralizing antibodies. Positive result may also be seen due to presence of passively-transferred antibodies. Please correlate with patient's history. Performed By: #### 7 852-7, MEASLG, [id number] ####[facility] LABCLIA [id number] [place] [address] [place] Reagin and Treponema pallidu m IgG and IgM [Interp]on 03-04-2024 T. pallidum IgG+IgM IA Ql (S) Non-Reactive Normal Nonreactive [facility] Comment on above: Order Comment: Speci men Type: BLOOD SPECIMENOrdering Facility: [facility] Address: [address] [place] [address] Performed By: #### 7 3752-8 ####[facility] LABCLIA [id number] [place] [address] [place] Reagin+T pallidum IgG+IgM Se rPl-Impon 03-04-2024 Reagin and Treponema pallidum IgG and IgM [Interp] Cannot exclude recent Treponemal infection if specimen collected within 7-10 days after appearance of suspect lesions or 2-3 weeks after an exposure. Clinical correlation is required. Normal [facility] Comment on above: Order Comment: Speci men Type: BLOOD SPECIMENOrdering Facility: [facility] Address: [address] [place] [address] Performed By: #### 7 3752-8 ####[facility] LABCLIA [id number] [place] [address] [place] VARICELLA ZOSTER IGGon 03-04 VARICELLA ZOSTER IGG, QUAL Positive Normal Positive [facility] Comment on above: Order Comment: Speci men Type: BLOOD SPECIMENOrdering Facility: [facility] Address: [address] [place] [address] Result Comment: The result suggests recent or past exposure to Varicella-Zoster virus or chickenpox vaccination or zoster vaccination. Positive result may also be seen due to presence of passively-transferred antibodies. Please correlate with patient's history. Performed By: #### 7 852-7, MEASLG, [id number] ####[facility] LABCLIA [id number] [place] [address] [place] XR CHEST 2V FRONTAL/LATon XR CHEST 2V FRONTAL/LAT * * *Final Report* * * DATE OF EXAM: Mar 04 2024 2:19PM [id number] - XR CHEST 2V FRONTAL/LAT / PROCEDURE REASON: Pre-transplant evaluation for ESRD (end stage renal disease) * * * * Physician Interpretation * * * * EXAMINATION: CHEST RADIOGRAPH (2 VIEW FRONTAL and LATERAL) CLINICAL HISTORY: Pre-transplant evaluation for ESRD (end stage renal disease) MQ: XC2_6 EXAM DATE/TIME: 03/04/2024 2:19 PM COMPARISON: 12/21/2022 RESULT: Lines, tubes, and devices: None. Lungs and pleura: No acute focal lung consolidation is seen. No substantial pleural effusion is seen. There is no pneumothorax. Cardiomediastinal silhouette: Normal cardiomediastinal silhouette. A right aortic arch is seen. Bones and soft tissues: The vertebral bodies are well aligned and the vertebral body heights are maintained. IMPRESSION: Please see body of the report. Rn Lvn: MARY Transcribe Date/Time: Mar 04 2024 2:25P Dictated by : TORRES VALDEZ MD This examination was interpreted and the report reviewed and electronically signed by: TORRES VALDEZ MD on Mar 04 2024 2:26PM EST [id number] Normal [facility] XR Chest PA and Lateralon Radiology Study observation (narrative) [facility] IMPRESSION: Please see body of the report. Rn Lvn: MARY Transcribe Date/Time: Mar 04 2024 2:25P Dictated by : TORRES VALDEZ MD This examination was interpreted and the report reviewed and electronically signed by: TORRES VALDEZ MD on Mar 04 2024 2:26PM EST DIVISION OF RADIOLOGY * * *Final Report* * * DATE OF EXAM: Mar 04 2024 2:19PM [id number] - XR CHEST 2V FRONTAL/LAT / PROCEDURE REASON: Pre-transplant evaluation for ESRD (end stage renal disease) * * * * Physician Interpretation * * * * EXAMINATION: CHEST RADIOGRAPH (2 VIEW FRONTAL & LATERAL) CLINICAL HISTORY: Pre-transplant evaluation for ESRD (end stage renal disease) MQ: XC2_6 EXAM DATE/TIME: 03/04/2024 2:19 PM COMPARISON: 12/21/2022 RESULT: Lines, tubes, and devices: None. Lungs and pleura: No acute focal lung consolidation is seen. No substantial pleural effusion is seen. There is no pneumothorax. Cardiomediastinal silhouette: Normal cardiomediastinal silhouette. A right aortic arch is seen. Bones and soft tissues: The vertebral bodies are well aligned and the vertebral body heights are maintained. DIVISION OF RADIOLOGY Provider, [facility] - 03/04/2024 * * *Final Report* * * DATE OF EXAM: Mar 04 2024 2:19PM [id number] - XR CHEST 2V FRONTAL/LAT / PROCEDURE REASON: Pre-transplant evaluation for ESRD (end stage renal disease) * * * * Physician Interpretation * * * * EXAMINATION: CHEST RADIOGRAPH (2 VIEW FRONTAL & LATERAL) CLINICAL HISTORY: Pre-transplant evaluation for ESRD (end stage renal disease) MQ: XC2_6 EXAM DATE/TIME: 03/04/2024 2:19 PM COMPARISON: 12/21/2022 RESULT: Lines, tubes, and devices: None. Lungs and pleura: No acute focal lung consolidation is seen. No substantial pleural effusion is seen. There is no pneumothorax. Cardiomediastinal silhouette: Normal cardiomediastinal silhouette. A right aortic arch is seen. Bones and soft tissues: The vertebral bodies are well aligned and the vertebral body heights are maintained. IMPRESSION IMPRESSION: Please see body of the report. Rn Lvn: MARY Transcribe Date/Time: Mar 04 2024 2:25P Dictated by : TORRES VALDEZ MD This examination was interpreted and the report reviewed and electronically signed by: TORRES VALDEZ MD on Mar 04 2024 2:26PM EST [facility] XR Chest PA and LateralOrder ed By: [facility] Provider on 03-04-2024 [facility] CNPNon 02-28-2024 CNPN Telephone (TXCTGL) LAWSON DOYLE ([id number]) 2000 M Date Time Provider Department 02/28/24 KIDNEY TXP COORDINATORS TXCTGL During your visit today, we recorded the following information about you: Ector Red 02/28/2024 10:47 AM Signed Unable to reach patient to confirm scheduled kidney transplant waitlist re-evaluation for next week. Detailed message was left. Ector Red Allergies As of Date: 02/28/2024 (No Known Allergies) Date Reviewed: 08/06/2023 Reviewed by: Alice York, RN - Fully Assessed Reason for Visit: Appointment Reminder [Other] Prescriptions as of 02/28/2024 - RENAPLEX-D 800 mcg-12.5 mg -2,000 unit tab Take 1 tablet by mouth once daily. - carvedilol (COREG) 12.5 mg tablet twice daily with meals. - losartan (COZAAR) 100 mg tablet once daily. - ondansetron orally disintegrating (ZOFRAN ODT) 4 mg disintegrating tablet - sevelamer carbonate (RENVELA) 800 mg tablet once daily. - tuberculin,purif.prot.d eriv. (TUBERSOL INTRADERM.) 0.1 mL by INTRADERMAL route. - doxercalciferol (HECTOROL INTRAVENOUS) 1 mcg. Problem List As Of Date 02/28/2024 Noted Resolved Alport syndrome [Q87.81] 04/18/2021 Acute renal failure (HCC) [N17.9] 02/18/2022 ESRD (end stage renal disease) (HCC) [N18.6] 04/18/2021 Hypertensive urgency [I16.0] 03/04/2022 Iron deficiency [E61.1] 03/21/2022 Secondary hyperparathyroidism of renal origin (*03/21/2022 Stage 4 chronic kidney disease (HCC) [N18.4] 02/21/2022 Anemia due to chronic kidney disease [N18.9, D6*04/20/2022 Primary hypertension [I10] 04/20/2022 Complication of AV dialysis fistula [T82.9XXA] 06/06/2022 ESRD on dialysis (HCC) [N18.6, Z99.2] 10/31/2022 Encounter Status:Closed by ECTOR RED on 02/28/24 Normal [facility] Basic Metabolic Profile (BMP )on 02-11-2024 BUN/CRE 4.7 RATIO Low 10-20 [facility] Comment on above: Performed By: #### L 100.0100, L500.2500 #### [facility] [address] [place], [address] CA,Total 9.2 mg/dL Normal 8.5-10.1 [facility] Comment on above: Performed By: #### L 100.0100, L500.2500 #### [facility] [address] [place], [address] Chloride [Moles/Vol] 100 mmol/L Normal 98-107 [facility] Comment on above: Performed By: #### L 100.0100, L500.2500 #### [facility] [address] [place], [address] CO2 [Moles/Vol] 32.0 mmol/L Normal 21.0-32.0 [facility] Comment on above: Performed By: #### L 100.0100, L500.2500 #### [facility] [address] [place], [address] Creatinine [Mass/Vol] 7.58 mg/dL Invalid Interpretation Code 0.70-1.30 [facility] Comment on above: Result Comment: Crit ical Result(s) Called at: 01:16:02 02/11/2024 by: Driss Larson. ÁNGEL BARBOUR RN ED. Results read back by same. The validity of the calculated GFR GFRAA in patients over 70 years has not been determined. Clinical correlation is essential. Performed By: #### L 100.0100, L500.2500 #### [facility] [address] [place], [address] ECRCL 15.52 ml/min Normal [facility] Comment on above: Performed By: #### L 100.0100, L500.2500 #### [facility] [address] [place], [address] EST GFR - AA 11 mL/min Low >60 [facility] Comment on above: Result Comment: Afri can Russian GFR Calc Performed By: #### L 100.0100, L500.2500 #### [facility] [address] [place], [address] GAP 9 Normal 5-15 [facility] Comment on above: Performed By: #### L 100.0100, L500.2500 #### [facility] [address] [place], [address] GFR/1.73 sq M.predicted among non-blacks MDRD (S/P/Bld) [Vol rate/Area] 9 mL/min/{1.73_m2} Low >60 [facility] Comment on above: Result Comment: Non- GFR Calc Performed By: #### L 100.0100, L500.2500 #### [facility] [address] [place], [address] Glucose [Mass/Vol] 144 mg/dL High 74-106 [facility] Comment on above: Result Comment: Fast ing Glucose result greater than or equal to 126 mg/dL suggests DIABETES MELLITUS per A.D.A. criteria. Performed By: #### L 100.0100, L500.2500 #### [facility] [address] [place], [address] Potassium [Moles/Vol] 4.5 mmol/L Normal 3.5-5.1 [facility] Comment on above: Performed By: #### L 100.0100, L500.2500 #### [facility] [address] [place], [address] Sodium [Moles/Vol] 142 mmol/L Normal 136-145 [facility] Comment on above: Performed By: #### L 100.0100, L500.2500 #### [facility] [address] [place], [address] Urea nitrogen [Mass/Vol] 36 mg/dL High 7-18 [facility] Comment on above: Performed By: #### L 100.0100, L500.2500 #### [facility] [address] [place], [address] CBC W/Diff, Automatedon 11-2 Absolute Lymph 2.22 X10 3/uL Normal 0.83-4.51 [facility] Comment on above: Performed By: #### L 100.0100, L500.2500 #### [facility] [address] [place], [address] Absolute Neut 5.1 X10 3/uL Normal 2.0-7.7 [facility] Comment on above: Performed By: #### L 100.0100, L500.2500 #### [facility] [address] [place], [address] Basophils/100 WBC (Bld) 0.2 % Normal 0-1 [facility] Comment on above: Performed By: #### L 100.0100, L500.2500 #### [facility] [address] [place], [address] Eosinophils/100 WBC (Bld) 14.6 % High 0-5 [facility] Comment on above: Performed By: #### L 100.0100, L500.2500 #### [facility] [address] [place], [address] Erythrocyte distribution width (RBC) [Ratio] 13.9 % Normal 11.6-14.6 [facility] Comment on above: Performed By: #### L 100.0100, L500.2500 #### [facility] [address] [place], [address] Hematocrit (Bld) [Volume fraction] 36.3 % Low 40-54 [facility] Comment on above: Performed By: #### L 100.0100, L500.2500 #### [facility] [address] [place], [address] Hemoglobin (Bld) [Mass/Vol] 12.2 g/dL Low 13.0-16.5 [facility] Comment on above: Performed By: #### L 100.0100, L500.2500 #### [facility] [address] [place], [address] IG% 0.300 Normal 0.0-0.9 [facility] Comment on above: Result Comment: IG% - Immature Granulocytes (promyelocytes, myelocytes and metamyelocytes) > 1% indicates that a LEFT SHIFT is Present. Performed By: #### L 100.0100, L500.2500 #### [facility] [address] [place], [address] Lymphocytes/100 WBC (Bld) 24.2 % Normal 19-41 [facility] Comment on above: Performed By: #### L 100.0100, L500.2500 #### [facility] [address] [place], [address] MCH (RBC) [Entitic mass] 32.7 pg High 27.0-32.0 [facility] Comment on above: Performed By: #### L 100.0100, L500.2500 #### [facility] [address] [place], [address] MCHC (RBC) [Mass/Vol] 33.6 g/dL Normal 32-36 [facility] Comment on above: Performed By: #### L 100.0100, L500.2500 #### [facility] [address] [place], [address] MCV (RBC) [Entitic vol] 97.3 fL High 80-94 [facility] Comment on above: Performed By: #### L 100.0100, L500.2500 #### [facility] [address] [place], [address] Monocytes/100 WBC (Bld) 5.2 % Normal 0-10 [facility] Comment on above: Performed By: #### L 100.0100, L500.2500 #### [facility] [address] [place], [address] Neutrophils/100 WBC (Bld) 55.5 % Normal 47-70 [facility] Comment on above: Performed By: #### L 100.0100, L500.2500 #### [facility] [address] [place], [address] Nucleated RBC (Bld) [#/Vol] 0 10*3/uL Normal 0-5 [facility] Comment on above: Performed By: #### L 100.0100, L500.2500 #### [facility] [address] [place], [address] Platelet mean volume (Bld) [Entitic vol] 9.7 fL Normal 6.2-12.0 [facility] Comment on above: Performed By: #### L 100.0100, L500.2500 #### [facility] [address] [place], [address] Platelets (Bld) [#/Vol] 271 10*3/uL Normal 150-450 [facility] Comment on above: Performed By: #### L 100.0100, L500.2500 #### [facility] [address] [place], [address] RBC (Bld) [#/Vol] 3.73 10*6/uL Low 4.6-6.2 [facility] Comment on above: Performed By: #### L 100.0100, L500.2500 #### [facility] [address] [place], [address] RDW SD 49.5 fl High 35.1-43.9 [facility] Comment on above: Performed By: #### L 100.0100, L500.2500 #### [facility] [address] [place], [address] WBC (Bld) [#/Vol] 9.2 10*3/uL Normal 4.4-11.0 [facility] Comment on above: Performed By: #### L 100.0100, L500.2500 #### [facility] [address] [place], [address] Emergency Department Summary on 02-11-2024 Emergency Department Summary [facility] Medical Records Department [address] [place] [address] Emergency Department Summary 02/11/24 MR#: [id number] Acct: [id number] Name: LAWSON DOYLE Rep #: [id number] : 2000 23 From: Serg Lyman MD PCP: Care Physician,No Primary Status:REG ER Location: ED HPI History of Present Illness Chief Complaint: Nausea/Vomiting Detail of Chief Complaint: Nausea and vomiting for the past couple of days. Informant: patient Onset/Context/Timing Onset: Days Context: Sudden Onset Timing: Intermittent Quality: Nausea and vomiting and diarrhea Location: GI Current Severity: Several episodes since onset Worsened by: Nothing Relieved by: Nothing Associated Symptoms Associated Symptoms: No complaint of abdominal pain. No hematemesis. No black or maroon-colore Narrative Narrative: Patient is a 23-year-old male with end-stage renal disease on hemodialysis, Sunday, Sunday. Because of the holiday weekend he was scheduled to have dialysis on Sunday which he did Sunday and Sunday. He states he had similar presentation when he was first started on dialysis. He denies ill contacts. He denies fever, chills night sweats. He denies thirst, dry mouth orthostatic symptoms. He denies decreased urine output. He reports compliance with his medication. Is on multiple meds. 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 Prior similar symptoms: Yes Recent Illness/Hospitalization : No PFSH PFS Medical History Arteriovenous fistula of right upper extremity Alports syndrome Home Medications ???Medication ???Instructions ???Recorded ???Last Taken ???Type carvedilol 12.5 mg tablet 12.5 mg PO BID 02/11/24 Unknown History cinacalcet 30 mg tablet 30 mg PO QPM 02/11/24 Unknown History lanthanum 1,000 mg oral powder 1,000 mg PO TID 02/11/24 Unknown History packet (Fosrenol) lanthanum 500 mg chewable tablet 500 mg PO TID 02/11/24 Unknown History losartan 100 mg tablet 100 mg PO DAILY 02/11/24 Unknown History ondansetron 4 mg disintegrating 4 mg PO Q8H PRN PRN Nausea #10 tabs 02/11/24 Unknown Rx tablet sevelamer carbonate 800 mg tablet 800 mg PO TID 02/11/24 Unknown History vit B,C-folic ac 800 mcg-zinc 12.5 1 tab PO DAILY 02/11/24 Unknown History mg-selen-D3 2,000 unit-vit E tablet (RenaPlex-D) Allergy/AdvReac Type Severity Reaction Status Date / Time No Known Allergies Allergy Verified 02/11/24 00:36 Social History Smoking Status: Light Smoker (<10/day) ROS ROS ED Constitutional Constitutional ED: Denies chills, fever(s), subjective or sweats Eyes Eyes: Denies blurry vision or change in vision ENT ENT ED: Denies ear pain or rhinorrhea Cardiovascular Cardiovascular: Denies chest pain or palpitations Respiratory/Chest Respiratory/Chest: Denies cough, dyspnea or dyspnea on exertion Gastrointestinal Gastrointestinal: Reports diarrhea, nausea and vomiting; Denies abdominal pain, constipation or melena Genitourinary Genitourinary ED: Reports other Details: No decreased urine output ; Denies dysuria, hematuria or urinary frequency Musculoskeletal Musculoskeletal: Denies arthralgias or myalgias Integumentary Denies rash Neurologic Neurologic: Denies weakness Hematologic/Lymphatic Hematologic/Lymphatic: Reports systems reviewed and no addt'l complaints, except as documented EXAM Physical Exam Const Vital Signs: 02/11/24 00:36 02/11/24 00:39 02/11/24 01:12 Temperature 98.6 F 98.6 F Temperature Source Oral Oral Pulse Rate 87 68 Pulse Rate [Lying] 77 Pulse Rate [Sitting (for 1 minute prior to obtaining)] 84 Pulse Rate [Standing (for 1 minute prior to obtaining)] 92 Respiratory Rate 16 16 Blood Pressure 155/83 H 155/83 H Blood Pressure [Lying] 142/95 H Blood Pressure [Sitting (for 1 minute prior to obtaining)] 151/107 H Blood Pressure [Standing (for 1 minute prior to obtaining)] 134/97 H Blood Pressure Mean 107 107 Blood Pressure Mean [Lying] 110 Blood Pressure Mean [Sitting (for 1 minute prior to obtaining)] 121 Blood Pressure Mean [Standing (for 1 minute prior to obtaining)] 109 Pulse Ox 98 98 Oxygen Delivery Method Room Air Room Air 02/11/24 01:39 02/11/24 02:00 Temperature 98.7 F 98.7 F Temperature Source Oral Oral Pulse Rate 82 78 Pulse Rate [Lying] Pulse Rate [Sitting (for 1 minute prior to obtaining)] Pulse Rate [Standing (for 1 minute prior to obtaining)] Respiratory Rate 16 16 Blood Pressure 134/97 H 153/98 H Blood Pressure [Lying] Blood Pressure [Sitting (for 1 minute prior to obtaining)] Blood Pressure [Standing (for 1 minute prior to obtaining)] Blood Pressure Mean 109 116 Blood Pressur (more content not included)... Normal [facility] Urinalysis, Routine (Dipstic k)on 02-11-2024 BILIRUBIN URINE Negative Normal Negative [facility] Comment on above: Order Comment: CLEAN CATCH Performed By: #### L 400.2010 ####[facility] [address] [place], [address] Clarity (U) Clear Normal Clear [facility] Comment on above: Order Comment: CLEAN CATCH Performed By: #### L 400.2010 ####[facility] [address] [place], [address] Color (U) Yellow Normal Yellow [facility] Comment on above: Order Comment: CLEAN CATCH Performed By: #### L 400.2010 ####[facility] [address] [place], [address] GLUCOSE, UR 100 mg/dl Abnormal Normal [facility] Comment on above: Order Comment: CLEAN CATCH Performed By: #### L 400.2010 ####[facility] [address] [place], [address] KETONE UR Negative Normal Negative [facility] Comment on above: Order Comment: CLEAN CATCH Performed By: #### L 400.2010 ####[facility] [address] [place], [address] LEUK ESTERASE Negative Normal Negative [facility] Comment on above: Order Comment: CLEAN CATCH Performed By: #### L 400.2010 ####[facility] [address] [place], [address] Nitrite Ql (U) Negative Normal Negative [facility] Comment on above: Order Comment: CLEAN CATCH Performed By: #### L 400.2010 ####[facility] [address] [place], [address] OCCULT BLOOD-UR 150 /ul Abnormal Negative [facility] Comment on above: Order Comment: CLEAN CATCH Performed By: #### L 400.2010 ####[facility] [address] [place], [address] pH UR 8.0 Normal 5.0 - 8.0 [facility] Comment on above: Order Comment: CLEAN CATCH Performed By: #### L 400.2010 ####[facility] [address] [place], [address] PROT DIPSTX 100 mg/dl Abnormal Negative [facility] Comment on above: Order Comment: CLEAN CATCH Performed By: #### L 400.2010 ####[facility] [address] [place], [address] SP.GR. DIPSTX 1.010 Normal 1.002-1.030 [facility] Comment on above: Order Comment: CLEAN CATCH Performed By: #### L 400.2010 ####[facility] [address] [place], [address] UROBILI Normal Normal Normal [facility] Comment on above: Order Comment: CLEAN CATCH Performed By: #### L 400.2010 ####[facility] [address] [place], [place], [address] CNOVon 12-04-2023 CNOV Office Visit (TXCTGL ) LAWSON DOYLE ([id number]) 2000 M Date Time Provider Department 12/04/23 2:30 PM WAIT LIST TXCTGL During your visit today, we recorded the following information about you: Ed Celeste RN 12/10/2023 10:01 AM Signed No show Referring Provider: HUA WHEELER [[id number]] Allergies As of Date: 12/04/2023 (No Known Allergies) Date Reviewed: 08/06/2023 Reviewed by: Alice York RN - Fully Assessed Primary Visit Diagnosis:ESRD on dialysis (HCC) [N18.6, Z99.2] Other Visit Diagnosis:Pre-transplan t evaluation for ESRD (end stage renal disease) [Z01.818] Prescriptions as of 12/10/2023 - RENAPLEX-D 800 mcg-12.5 mg -2,000 unit tab Take 1 tablet by mouth once daily. - carvedilol (COREG) 12.5 mg tablet twice daily with meals. - losartan (COZAAR) 100 mg tablet once daily. - ondansetron orally disintegrating (ZOFRAN ODT) 4 mg disintegrating tablet - sevelamer carbonate (RENVELA) 800 mg tablet once daily. - tuberculin,purif.prot.d eriv. (TUBERSOL INTRADERM.) 0.1 mL by INTRADERMAL route. - doxercalciferol (HECTOROL INTRAVENOUS) 1 mcg. Problem List As Of Date 12/04/2023 Noted Resolved Alport syndrome [Q87.81] 04/18/2021 Acute renal failure (HCC) [N17.9] 02/18/2022 ESRD (end stage renal disease) (HCC) [N18.6] 04/18/2021 Hypertensive urgency [I16.0] 03/04/2022 Iron deficiency [E61.1] 03/21/2022 Secondary hyperparathyroidism of renal origin (*03/21/2022 Stage 4 chronic kidney disease (HCC) [N18.4] 02/21/2022 Anemia due to chronic kidney disease [N18.9, D6*04/20/2022 Primary hypertension [I10] 04/20/2022 Complication of AV dialysis fistula [T82.9XXA] 06/06/2022 ESRD on dialysis (HCC) [N18.6, Z99.2] 10/31/2022 Encounter Status:Closed by ED CELESTE on 12/10/23 [facility] CNOV Office Visit (TXCTGL ) LAWSON DOYLE ([id number]) 2000 M Date Time Provider Department 12/04/23 2:00 PM UROLOGY WAIT LIST TXCTGL During your visit today, we recorded the following information about you: Ed Celeste RN 12/10/2023 10:02 AM Signed No show Referring Provider: HUA WHEELER [[id number]] Allergies As of Date: 12/04/2023 (No Known Allergies) Date Reviewed: 08/06/2023 Reviewed by: Alice York RN - Fully Assessed Primary Visit Diagnosis:ESRD on dialysis (HCC) [N18.6, Z99.2] Other Visit Diagnosis:Pre-transplan t evaluation for ESRD (end stage renal disease) [Z01.818] Prescriptions as of 12/10/2023 - RENAPLEX-D 800 mcg-12.5 mg -2,000 unit tab Take 1 tablet by mouth once daily. - carvedilol (COREG) 12.5 mg tablet twice daily with meals. - losartan (COZAAR) 100 mg tablet once daily. - ondansetron orally disintegrating (ZOFRAN ODT) 4 mg disintegrating tablet - sevelamer carbonate (RENVELA) 800 mg tablet once daily. - tuberculin,purif.prot.d eriv. (TUBERSOL INTRADERM.) 0.1 mL by INTRADERMAL route. - doxercalciferol (HECTOROL INTRAVENOUS) 1 mcg. Problem List As Of Date 12/04/2023 Noted Resolved Alport syndrome [Q87.81] 04/18/2021 Acute renal failure (HCC) [N17.9] 02/18/2022 ESRD (end stage renal disease) (HCC) [N18.6] 04/18/2021 Hypertensive urgency [I16.0] 03/04/2022 Iron deficiency [E61.1] 03/21/2022 Secondary hyperparathyroidism of renal origin (*03/21/2022 Stage 4 chronic kidney disease (HCC) [N18.4] 02/21/2022 Anemia due to chronic kidney disease [N18.9, D6*04/20/2022 Primary hypertension [I10] 04/20/2022 Complication of AV dialysis fistula [T82.9XXA] 06/06/2022 ESRD on dialysis (HCC) [N18.6, Z99.2] 10/31/2022 Encounter Status:[facility]TXCTGL) LAWSON DOYLE ([id number]) 2000 M Date Time Provider Department 11/29/23 ELBERT ARELLANO TXCTGL During your visit today, we recorded the following information about you: Elbert Arellano RN 11/29/2023 11:56 AM Signed Spoke with Lawson regarding missed virtual waitlist appointment this am. He was unaware that he had the appointment and also was unaware that he had his waitlist evaluation appointments on 12/03. I confirmed that he is able to make the 12/03 appointments and explained that we will add on in person education at 9:30 that day as well. Allergies As of Date: 11/29/2023 (No Known Allergies) Date Reviewed: 08/06/2023 Reviewed by: Alice York, TASHIA - Fully Assessed Reason for Visit: Follow Up [171] Prescriptions as of 11/29/2023 - RENAPLEX-D 800 mcg-12.5 mg -2,000 unit tab Take 1 tablet by mouth once daily. - carvedilol (COREG) 12.5 mg tablet twice daily with meals. - losartan (COZAAR) 100 mg tablet once daily. - ondansetron orally disintegrating (ZOFRAN ODT) 4 mg disintegrating tablet - sevelamer carbonate (RENVELA) 800 mg tablet once daily. - tuberculin,purif.prot.d eriv. (TUBERSOL INTRADERM.) 0.1 mL by INTRADERMAL route. - doxercalciferol (HECTOROL INTRAVENOUS) 1 mcg. Problem List As Of Date 11/29/2023 Noted Resolved Alport syndrome [Q87.81] 04/18/2021 Acute renal failure (HCC) [N17.9] 02/18/2022 ESRD (end stage renal disease) (HCC) [N18.6] 04/18/2021 Hypertensive urgency [I16.0] 03/04/2022 Iron deficiency [E61.1] 03/21/2022 Secondary hyperparathyroidism of renal origin (*03/21/2022 Stage 4 chronic kidney disease (HCC) [N18.4] 02/21/2022 Anemia due to chronic kidney disease [N18.9, D6*04/20/2022 Primary hypertension [I10] 04/20/2022 Complication of AV dialysis fistula [T82.9XXA] 06/06/2022 ESRD on dialysis (HCC) [N18.6, Z99.2] 10/31/2022 Encounter Status:Closed by ELBERT ARELLANO on 11/29/23 [facility] CNPN Telephone (TXCTGL) LAWSON DOYLE ([id number]) 2000 M Date Time Provider Department 10/03/23 [facility] During your visit today, we recorded the following information about you: Ector Red 10/03/2023 1:21 PM Signed Vaccinations with MMR and Varicella scanned into [employer] Ector Red Allergies As of Date: 10/03/2023 (No Known Allergies) Date Reviewed: 08/06/2023 Reviewed by: Alice York, RN - Fully Assessed Reason for Visit: Received Outside Medical Records [[id number]] Prescriptions as of 10/03/2023 - RENAPLEX-D 800 mcg-12.5 mg -2,000 unit tab Take 1 tablet by mouth once daily. - carvedilol (COREG) 12.5 mg tablet twice daily with meals. - losartan (COZAAR) 100 mg tablet once daily. - ondansetron orally disintegrating (ZOFRAN ODT) 4 mg disintegrating tablet - sevelamer carbonate (RENVELA) 800 mg tablet once daily. - tuberculin,purif.prot.d eriv. (TUBERSOL INTRADERM.) 0.1 mL by INTRADERMAL route. - doxercalciferol (HECTOROL INTRAVENOUS) 1 mcg. Problem List As Of Date 10/03/2023 Noted Resolved Alport syndrome [Q87.81] 04/18/2021 Acute renal failure (HCC) [N17.9] 02/18/2022 ESRD (end stage renal disease) (HCC) [N18.6] 04/18/2021 Hypertensive urgency [I16.0] 03/04/2022 Iron deficiency [E61.1] 03/21/2022 Secondary hyperparathyroidism of renal origin (*03/21/2022 Stage 4 chronic kidney disease (HCC) [N18.4] 02/21/2022 Anemia due to chronic kidney disease [N18.9, D6*04/20/2022 Primary hypertension [I10] 04/20/2022 Complication of AV dialysis fistula [T82.9XXA] 06/06/2022 ESRD on dialysis (HCC) [N18.6, Z99.2] 10/31/2022 Encounter Status:Closed by ECTOR RED on 10/03/23 [facility] BRIEF OP NOTon 08-06-2023 BRIEF OP NOT HNO ID: [id number] Author: DARRICK BELTRAN MD Service: Vascular Surgery Author Type: Resident Type: Brief Op Note Filed: 08/06/2023 13:35 Note Text: BRIEF OPERATIVE / PROCEDURE NOTE LOG ID: [id number] Surgery/Procedure Date: 08/06/2023 Incision/Procedure Start Time: 1:06 PM Incision Close/Procedure End Time: 1:19 PM Surgeon(s)/Proceduralis t(s) and Account Developer(s): Surgeon(s) and Role: * Don Patel MD - Primary * Darrick Beltran MD - Resident - Assisting No Additional Staff Procedure(s): Procedure(s): PERC THROMBECTOMY/INFUSION FOR THROMBOLYSIS AV FISTULA,FLUORO GUIDED,INCLUSIVE OF RAD NESHA Fistulogram : Access: 6 Fr Closure: Manual Compression Contrast: 13cc Fluorotime: 0.4 min, 8.34 Gy Anesthesia: Procedural Sedation ASA Class: ASA Class:: IIIE Findings: 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 , 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 Angioplasty 7X40 Pulses: LLE: Defer RLE: defer RUE: palpable radial, palpable AVF LUE: Defer Medications: Antiplatelet: None Anticoagulation: No Statin: No - Reason: not on PreOp , Beta Krista: No - Reason: Not on PreOp Estimated Blood Loss: 5cc Specimens: * No specimens in log * Implants: * No implants in log * Complications: None Pre-Op/Pre-Procedure Diagnosis: ESRD, Fistula Stenosis Post-Op/Post-Procedure Diagnosis: Same as Preop SIGNATURE: Darrick Beltran MD PATIENT NAME: Lawson Doyle DATE: August 06, 2023 TIME: 1:32 PM PAGER/CONTACT #: [phone] Normal [facility] Basic metabolic 2000 panelon 08-06-2023 Anion gap [Moles/Vol] 14 mmol/L Normal 9-18 [facility] Comment on above: Order Comment: Ez trinh Type: BLOOD SPECIMEN Ordering Facility: [facility] Address: [address] [place] [address] Performed By: #### 2 4321-2 #### [facility] CLIA [id number] [address] [place] [address] [place] Calcium [Mass/Vol] 9.6 mg/dL Normal 8.5-10.2 [facility] Comment on above: Order Comment: Ez trinh Type: BLOOD SPECIMEN Ordering Facility: [facility] Address: [address] [place] [address] Performed By: #### 2 4321-2 #### [facility] CLIA [id number] [address] [place] [address] [place] Chloride [Moles/Vol] 98 mmol/L Normal 97-105 [facility] Comment on above: Order Comment: Speci men Type: BLOOD SPECIMEN Ordering Facility: [facility] Address: [address] [place] [address] Performed By: #### 2 4321-2 #### [facility] CLIA [id number] [address] [place] [address] [place] CO2 [Moles/Vol] 28 mmol/L Normal 22-30 [facility] Comment on above: Order Comment: Speci men Type: BLOOD SPECIMEN Ordering Facility: [facility] Address: [address] [place] [address] Performed By: #### 2 4321-2 #### [facility] CLIA [id number] [address] [place] [address] [place] Creatinine [Mass/Vol] 7.64 mg/dL High 0.73-1.22 [facility] Comment on above: Order Comment: Speci men Type: BLOOD SPECIMEN Ordering Facility: [facility] Address: [address] [place] [address] Performed By: #### 2 4321-2 #### [facility] CLIA [id number] [address] [place] [address] [place] Creatinine and Glomerular filtration rate.predicted panel (S/P/Bld) 9 mL/min/1.73m??? Low >=60 [facility] Comment on above: Order Comment: Speci men Type: BLOOD SPECIMEN Ordering Facility: [facility] Address: [address] [place] [address] Result Comment: Gentry mated Glomerular Filtration Rate (eGFR) is calculated using the 2020 CKD-EPI creatinine equation. This equation utilizes serum creatinine, sex, and age as parameters. The creatinine assay has traceable calibration to isotope dilution-mass spectrometry. Refer to KDIGO guidelines for clinical interpretation. In patients with unstable renal function, e.g. those with acute kidney injury, the eGFR may not accurately reflect actual GFR. Performed By: #### 2 4321-2 #### [facility] CLIA [id number] [place] [address] [place] Glucose [Mass/Vol] 96 mg/dL Normal 74-99 [facility] Comment on above: Order Comment: Speci men Type: BLOOD SPECIMEN Ordering Facility: [facility] Address: [address] [place] [address] Result Comment: The [place] Diabetes Association (ADA) provides guidance for cutoff values for fasting glucose and random glucose. The ADA defines fasting as no caloric intake for at least 8 hours. Fasting plasma glucose results between 100 to 125 mg/dL indicate increased risk for diabetes (prediabetes). Fasting plasma glucose results greater than or equal to 126 mg/dL meet the criteria for diagnosis of diabetes. In the absence of unequivocal hyperglycemia, results should be confirmed by repeat testing. In a patient with classic symptoms of hyperglycemia or hyperglycemic crisis, random plasma glucose results greater than or equal to 200 mg/dL meet the criteria for diagnosis of diabetes. Reference: Standards of Medical Care in Diabetes 2016, [place] Diabetes Association. Diabetes Care. 2016.39(Suppl 1). Performed By: #### 2 4321-2 #### [facility] CLIA [id number] [address] [place] [address] [place] Potassium [Moles/Vol] 4.4 mmol/L Normal 3.7-5.1 [facility] Comment on above: Order Comment: Speci men Type: BLOOD SPECIMEN Ordering Facility: [facility] Address: [address] [place] [address] Performed By: #### 2 4321-2 #### [facility] CLIA [id number] [address] [place] [address] [place] Sodium [Moles/Vol] 140 mmol/L Normal 136-144 [facility] Comment on above: Order Comment: Speci men Type: BLOOD SPECIMEN Ordering Facility: [facility] Address: [address] [place] [address] Performed By: #### 2 4321-2 #### [facility] CLIA [id number] [address] [place] [address] [place] Urea nitrogen [Mass/Vol] 35 mg/dL High 9-24 [facility] Comment on above: Order Comment: Speci men Type: BLOOD SPECIMEN Ordering Facility: [facility] Address: [address] [place] [address] Performed By: #### 2 4321-2 #### [facility] CLIA [id number] [address] [place] ECG COMPLETEon 08-06-2023 ECG COMPLETE Ventricular Rate : 7 5 BPM Atrial Rate : 76 BPM P-R Interval : 120 ms QRS Duration : 81 ms Q-T Interval : 385 ms QTC Calculation(Bazett) : 430 ms Calculated P [place] : 48 degrees Calculated R [place] : 47 degrees Calculated T [place] : 28 degrees Sinus rhythm Normal ECG Confirmed by МАРИНА PADGETT MD ([id number]) on 08/12/2023 10:17:30 PM NAME : LAWSON DOYLE PID : [id number] : 2000 Gender : Male Race : ORD : [id number] Procedure Date : Aug 06 2023 10:19:26 Edit Date : Aug 12 2023 22:17:34 Diagnosis: Sinus rhythm Normal ECG Confirmed by МАРИНА PADGETT MD ([id number]) on 08/12/2023 10:17:30 PM Test Reason : Pre OP Location : [address] Overread By : МАРИНА PADGETT MD Edited By : МАРИНА PADGETT MD Referred By : , Acquired by : Sushma JAMES [facility] HISTORY PHYSICALon HISTORY PHYSICAL HNO ID: [id number] Author: ANKUSH PEREZ PA-C Service: Cardiovascular Disease Author Type: Physician Account Developer Type: H&P Filed: 08/06/2023 11:00 Note Text: HISTORY AND PHYSICAL EXAMINATION SERVICE DATE: 08/06/2023 SERVICE TIME: 10:36 AM PROCEDUREALIST: Surgeon(s) and Role: * Don Patel MD - Primary PRIMARY CARE PHYSICIAN: No Pcp, 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 He reports of being on dialysis for a yr and his regular dialysis days are MON,WED, SUN days and he has had full session past Sunday that took a long time to finish it. The cause of his early renal failure is Alport s syndrome PAST MEDICAL HISTORY: PAST MEDICAL HISTORY Diagnosis Date Complication of AV dialysis fistula 06/06/2022 HTN (hypertension) PAST SURGICAL HISTORY: PAST SURGICAL HISTORY Procedure Laterality Date IR TUNNELLED DIALYSIS CATHETER TONGUE SURGERY HX FAMILY HISTORY: No family history on file. SOCIAL HISTORY: Social History Tobacco Use Smoking status: Some Days Packs/day: 0.50 Years: 6.00 Additional pack years: 0.00 Total pack years: 3.00 Types: Cigars, Cigarettes Smokeless tobacco: Never Vaping Use Vaping Use: Never used Substance Use Topics Alcohol use: Yes Comment: very rarely Drug use: Never MEDICATIONS: Prior to Admission Medications RENAPLEX-D 800 mcg-12.5 mg -2,000 unit tab, Take 1 tablet by mouth once daily., Disp: , Rfl: , 08/05/2023 at 1900 carvedilol (COREG) 12.5 mg tablet, twice daily with meals., Disp: , Rfl: , 08/05/2023 at 1800 losartan (COZAAR) 100 mg tablet, once daily., Disp: , Rfl: , 08/05/2023 at 1900 ondansetron orally disintegrating (ZOFRAN ODT) 4 mg disintegrating tablet, , Disp: , Rfl: , 08/06/2023 at 0700 sevelamer carbonate (RENVELA) 800 mg tablet, once daily., Disp: , Rfl: tuberculin,purif.prot.d eriv. (TUBERSOL INTRADERM.), 0.1 mL by INTRADERMAL route., Disp: , Rfl: doxercalciferol (HECTOROL INTRAVENOUS), 1 mcg., Disp: , Rfl: CURRENT ALLERGIES: ALLERGIES No Known Allergies COMPLETE REVIEW OF SYSTEMS: GENERAL: No weight loss, malaise or fevers., SEE HPI HEENT: No changes in vision, no nose bleeds or other nasal problems NECK: Negative for lumps, goiter, and significant neck swelling RESPIRATORY: Negative for cough, wheezing or shortness of breath. CARDIOVASCULAR: No leg swelling claudication or palpitations GI: Negative for abdominal discomfort, blood in stools or black stools or change in bowel habits MUSCULOSKELETAL: Negative for joint pain or swelling, PSYCH: Negative for depression or sleep disturbance. HEMATOLOGY/LYMPHOLOGY: Negative for prolonged bleeding, bruising easily or swollen nodes ENDOCRINE: Is not diabetic, NEURO: No history of syncope, paralysis, seizures or tremors All other reviewed and negative other than HPI. OBJECTIVE PHYSICAL EXAM: No data found. There is no height or weight on file to calculate BMI. GENERAL: Alert and orianted x 3, no distress, cooperative SKIN: Skin color, turgor normal. No rashes or lesions. EARS: External ears normal. NECK: No jugulovenous distention, no carotid bruits, supple. CHEST: No deformities. LUNGS: Lungs clear to auscultation. No rales or wheezing. CARDIAC: Rhythm regular, normal S1 and S2; No murmurs ABDOMEN: Abdomen soft, non-tender.. No masses or organomegaly. EXTREMITIES: Extremities normal. No deformities, edema, clubbing or skin discoloration. NEURO: Gait normal. Reflexes normal and symmetric. Sensation grossly intact., Cranial nerves II-XII intact PULSES: 2+ radial 2+ dorsalis pedis 2+ posterial tibial DATA: Diagnostic tests reviewed for today's visit: Most recent EKG Most recent labs POC INR: CBC: No results for input(s): "WBC", "RBC", "HB", "HCT", "PLT", "MCV", "MCH", "MPV", "RDW" in the last 720 hours. Coags: No results for input(s): "PT", "INR", "APTT" in the last 720 hours. BMP: No results for input(s): "NA", "K", "CHLOR", "CO2", "BUN", "CREAT", "GLUC" in the last 720 hours. Assessment: ESRD, H.D, Mechanical complication of A.V fistula with ( diminished Flow During dialysis, Alport syndrome, , Hypertension Plan: Ordered Pre-op LABS and EKG reviewed and results evaluated. The medical history was reviewed and updated. Pre-procedural IV antibiotic was ordered Proceed with procedure I spent a total of 32 minutes on the date of the service which included [id number] patient care, completing clinical documentation, obtaining and/or reviewing separately obtained history, performing a medically appropriate examination, and ordering medications, tests, or procedures. SIGNATURE: Ankush Perez PA-C PATIENT NAME: Lawson Doyle DATE: August 06, 2023 TIME: 10:36 AM PAGER: [facility] NURSING PROGon 08-06-2023 NURSING PROG HNO ID: [id number] Author: ALICE YORK RN Service: ? Author Type: Registered Nurse Type: Nursing Progress Note Filed: 08/06/2023 14:28 Note Text: 1337 Patient received from [address] S/P thrombectomy of the RUE AV fistula. Refer to MAR for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 glucose and random glucose. The ADA defines fasting as no caloric intake for at least 8 hours. Fasting plasma glucose results between 100 to 125 mg/dL indicate increased risk for diabetes (prediabetes). Fasting plasma glucose results greater than or equal to 126 mg/dL meet the criteria for diagnosis of diabetes. In the absence of unequivocal hyperglycemia, results should be confirmed by repeat testing. In a patient with classic symptoms of hyperglycemia or hyperglycemic crisis, random plasma glucose results greater than or equal to 200 mg/dL meet the criteria for diagnosis of diabetes. Reference: Standards of Medical Care in Diabetes 2016, [place] Diabetes Association. Diabetes Care. 2016.39(Suppl 1). Performed By: #### 2 4321-2 #### [facility] CLIA [id number] [address] [place] [address] [place] Potassium [Moles/Vol] 4.9 mmol/L Normal 3.7-5.1 [facility] Comment on above: Order Comment: Ez trinh Type: BLOOD SPECIMEN Ordering Facility: [facility] Address: [address] [place] [address] Performed By: #### 2 4321-2 #### [facility] CLIA [id number] [address] [place] [address] [place] Sodium [Moles/Vol] 139 mmol/L Normal 136-144 [facility] Comment on above: Order Comment: Gabrielai gayathri Type: BLOOD SPECIMEN Ordering Facility: [facility] Address: [address] [place] [address] Performed By: #### 2 4321-2 #### [facility] CLIA [id number] [address] [place] [address] [place] Urea nitrogen [Mass/Vol] 48 mg/dL High 9-24 [facility] Comment on above: Order Comment: Speci men Type: BLOOD SPECIMEN Ordering Facility: [facility] Address: [address] [place] [address] Performed By: #### 2 4321-2 #### [facility] CLIA [id number] [address] [place] [address] [place] CBC panel Auto (Bld)on 03-20 Erythrocyte distribution width (RBC) [Ratio] 14.8 % Normal 11.5-15.0 [facility] Comment on above: Order Comment: Speci men Type: BLOOD SPECIMEN Ordering Facility: [facility] Address: [address] [place] [address] Performed By: #### 5 8410-2 #### [facility] CLIA [id number] [address] [place] [address] [place] Hematocrit (Bld) [Volume fraction] 35.8 % Low 39.0-51.0 [facility] Comment on above: Order Comment: Speci men Type: BLOOD SPECIMEN Ordering Facility: [facility] Address: [address] [place] [address] Performed By: #### 5 8410-2 #### [facility] CLIA [id number] [address] [place] [address] [place] Hemoglobin (Bld) [Mass/Vol] 11.8 g/dL Low 13.0-17.0 [facility] Comment on above: Order Comment: Speci men Type: BLOOD SPECIMEN Ordering Facility: [facility] Address: [address] [place] [address] Performed By: #### 5 8410-2 #### [facility] CLIA [id number] [address] [place] [address] [place] MCH (RBC) [Entitic mass] 33.2 pg Normal 26.0-34.0 [facility] Comment on above: Order Comment: Speci men Type: BLOOD SPECIMEN Ordering Facility: [facility] Address: [address] [place] [address] Performed By: #### 5 8410-2 #### [facility] CLIA [id number] [address] [place] [address] [place] MCHC (RBC) [Mass/Vol] 33.0 g/dL Normal 30.5-36.0 [facility] Comment on above: Order Comment: Speci men Type: BLOOD SPECIMEN Ordering Facility: [facility] Address: [address] [place] [address] Performed By: #### 5 8410-2 #### [facility] CLIA [id number] [address] [place] [address] [place] MCV (RBC) [Entitic vol] 100.8 fL High 80.0-100.0 [facility] Comment on above: Order Comment: Speci men Type: BLOOD SPECIMEN Ordering Facility: [facility] Address: [address] [place] [address] Performed By: #### 5 8410-2 #### [facility] CLIA [id number] [address] [place] [address] [place] Nucleated RBC (Bld) [#/Vol] 10*3/uL Normal <0.01 [facility] Comment on above: Order Comment: Speci men Type: BLOOD SPECIMEN Ordering Facility: [facility] Address: [address] [place] [address] Performed By: #### 5 8410-2 #### [facility] CLIA [id number] [address] [place] [address] [place] Platelet mean volume (Bld) [Entitic vol] 9.2 fL Normal 9.0-12.7 [facility] Comment on above: Order Comment: Speci men Type: BLOOD SPECIMEN Ordering Facility: [facility] Address: [address] [place] [address] Performed By: #### 5 8410-2 #### [facility] CLIA [id number] [address] [place] [address] [place] Platelets (Bld) [#/Vol] 243 10*3/uL Normal 150-400 [facility] Comment on above: Order Comment: Speci men Type: BLOOD SPECIMEN Ordering Facility: [facility] Address: [address] [place] [address] Performed By: #### 5 8410-2 #### [facility] CLIA [id number] [address] [place] [address] [place] RBC (Bld) [#/Vol] 3.55 10*6/uL Low 4.20-6.00 [facility] Comment on above: Order Comment: Speci men Type: BLOOD SPECIMEN Ordering Facility: [facility] Address: [address] [place] [address] Performed By: #### 5 8410-2 #### [facility] CLIA [id number] [place] [address] [place] WBC (Bld) [#/Vol] 7.61 10*3/uL Normal 3.70-11.00 [facility] Comment on above: Order Comment: Speci men Type: BLOOD SPECIMEN Ordering Facility: [facility] Address: [place] [address] Performed By: #### 5 8410-2 #### [facility] CLIA [id number] [place] [address] [place] ECG COMPLETEon 03-20-2023 ECG COMPLETE Ventricular Rate : 6 6 BPM Atrial Rate : 67 BPM P-R Interval : 126 ms QRS Duration : 88 ms Q-T Interval : 380 ms QTC Calculation(Bazett) : 399 ms Calculated P [place] : 64 degrees Calculated R [place] : 59 degrees Calculated T [place] : 26 degrees Sinus rhythm Normal ECG Confirmed by EDVIN INFANTE MD ([id number]) on 03/20/2023 8:58:22 AM NAME : LAWSON DOYLE PID : [id number] : 2000 Gender : Male Race : ORD : [id number] Procedure Date : Mar 20 2023 08:30:39 Edit Date : Mar 20 2023 08:58:23 Diagnosis: Sinus rhythm Normal ECG Confirmed by EDVIN INFANTE MD ([id number]) on 03/20/2023 8:58:22 AM Test Reason : Pre OP Location : 400 : [facility] 26 Overread By : EDVIN INFANTE MD Edited By : EDVIN INFANTE MD Referred By : , Acquired by : , Normal [facility] HISTORY PHYSICALon HISTORY PHYSICAL HNO ID: [id number] Author: Ankush Perez PA-C Service: Cardiovascular Disease Author Type: Physician Account Developer Type: HANDP Filed: 03/20/2023 10:03 AM Note Text: HISTORY AND PHYSICAL EXAMINATION SERVICE DATE: 03/20/2023 SERVICE TIME: 9:53 AM PROCEDUREALIST: Surgeon(s) and Role: * Liliya Estrada MD - Primary PRIMARY CARE PHYSICIAN: Ivette Manzano MD SUBJECTIVE CHIEF COMPLAINT: Diminished flow during dialysis HPI: This is a 23 year old male pmhx as Alport syndrome and HTN presents with above issue . States the flow at dialysis progressively iminishing and taking to long to finish his dialysis. No other encounters. States his last dialysis was past Sunday but his regular dialysis days are MON,WED,FRI days PAST MEDICAL HISTORY: PAST MEDICAL HISTORY Diagnosis Date Complication of AV dialysis fistula 06/06/2022 HTN (hypertension) PAST SURGICAL HISTORY: PAST SURGICAL HISTORY Procedure Laterality Date IR TUNNELLED DIALYSIS CATHETER TONGUE SURGERY HX FAMILY HISTORY: History reviewed. No pertinent family history. SOCIAL HISTORY: Social History Tobacco Use Smoking status: Some Days Packs/day: 0.50 Years: 6.00 Additional pack years: 0.00 Total pack years: 3.00 Types: Cigars, Cigarettes Smokeless tobacco: Never Vaping Use Vaping Use: Never used Substance Use Topics Alcohol use: Yes Comment: very rarely Drug use: Never MEDICATIONS: Prior to Admission Medications RENAPLEX-D 800 mcg-12.5 mg -2,000 unit tab, Take 1 tablet by mouth once daily., Disp: , Rfl: , 03/19/2023 carvedilol (COREG) 12.5 mg tablet, twice daily with meals., Disp: , Rfl: , 03/19/2023 losartan (COZAAR) 100 mg tablet, once daily., Disp: , Rfl: , 03/19/2023 ondansetron orally disintegrating (ZOFRAN ODT) 4 mg disintegrating tablet, , Disp: , Rfl: sevelamer carbonate (RENVELA) 800 mg tablet, once daily., Disp: , Rfl: , 03/19/2023 ondansetron HCl (ZOFRAN ORAL), Take 4 mg by mouth as needed., Disp: , Rfl: tuberculin,purif.prot.d eriv. (TUBERSOL INTRADERM.), 0.1 mL by INTRADERMAL route. (Patient not taking: Reported on 12/21/2022), Disp: , Rfl: doxercalciferol (HECTOROL INTRAVENOUS), 1 mcg., Disp: , Rfl: , 03/18/2023 CURRENT ALLERGIES: ALLERGIES No Known Allergies COMPLETE REVIEW OF SYSTEMS: GENERAL: No weight loss, malaise or fevers., SEE HPI HEENT: No changes in vision, no nose bleeds or other nasal problems NECK: Negative for lumps, goiter, and significant neck swelling RESPIRATORY: Negative for cough, wheezing or shortness of breath. CARDIOVASCULAR: No leg swelling claudication or palpitations GI: Negative for abdominal discomfort, blood in stools or black stools or change in bowel habits MUSCULOSKELETAL: Negative for joint pain or swelling, PSYCH: Negative for depression or sleep disturbance. HEMATOLOGY/LYMPHOLOGY: See HPI ENDOCRINE: diabetic, does not have hyperthyroidism. NEURO: No history of syncope, paralysis, seizures or tremors All other reviewed and negative other than HPI. OBJECTIVE PHYSICAL EXAM: Patient Vitals for the past 24 hrs: BP Temp Temp src Pulse SpO2 Height Weight 03/20/23 0830 123/70 36.8 ?C (98.2 ?F) Temporal 81 97 % 177.8 cm (5' 10") 75.9 kg (167 lb 4.8 oz) Body mass index is 24.01 kg/m?. GENERAL: Alert and orianted x 3, no distress, cooperative SKIN: Skin color, turgor normal. No rashes or lesions. EARS: External ears normal. NECK: No jugulovenous distention, no carotid bruits, supple. CHEST: No deformities. LUNGS: Lungs clear to auscultation. No rales or wheezing. CARDIAC: Rhythm regular, normal S1 and S2; No murmurs ABDOMEN: Abdomen soft, non-tender.. No masses or organomegaly. EXTREMITIES: Extremities normal. No deformities, edema, clubbing or skin discoloration. NEURO: Gait normal. Reflexes normal and symmetric. Sensation grossly intact., Cranial nerves II-XII intact PULSES: 2+ radial 2+ dorsalis pedis 2+ posterial tibial DATA: Diagnostic tests reviewed for today's visit: Most recent EKG Most recent labs POC INR: CBC: Recent Labs 03/20/23 0838 WBC 7.61 RBC 3.55* HB 11.8* HCT 35.8* PLT 243 MCV 100.8* MCH 33.2 MPV 9.2 Coags: No results for input(s): "PT", "INR", "APTT" in the last 720 hours. BMP: Recent Labs 03/20/23 0832 NA 139 K 4.9 CHLOR 97 CO2 29 BUN 48* CREAT 9.98* GLUC 89 Assessment: ESRD, H.D, Alport syndrome, HTN, anemia Plan: Ordered Pre-op LABS and EKG reviewed and results evaluated. The medical history was reviewed and updated. Pre-procedural IV antibiotic was ordered Proceed with procedure I spent a total of 32 minutes on the date of the service which included preparing to see the patient, [id number] patient care, completing clinical documentation, obtaining and/or reviewing separately obtained history, performing a medically appropriate examination, and ordering medications, tests, or procedures. SIGNATURE: Ankush Perez PA-C PATIENT NAME: Lawson Abreu (more content not included)... [facility] NURSING PROGon 03-20-2023 NURSING PROG HNO ID: [id number] Author: Karissa Blair, RN Service: Nursing Author Type: Registered Nurse Type: Nursing Progress Note Filed: 03/20/2023 1:26 PM Note Text: Nursing Progress Note Topic of Note: post procedure PATIENT NAME: Lawson Doyle Patient Location: SECOND FLOOR OPERATOR POOL/ SECOND FLOOR OPERATOR POOL Room: SECOND FLOOR OPERATOR POOL ( INVASIVE CARDIOLOGY) 1215 s/p RUE AVF balloon angioplasty. See intra op notes for meds given during procedure. RUE dressings CDI. Sites free from bleeding and hematoma. + R radial pulse. Movement and sensation intact to RUE. Pt aware of movement and bedrest restrictions. Tele-SR. Pt provided juice, tolerating well. 1250 Discharge instructions reviewed with pt, all questions answered, states understanding. 1300 Pt ambulated in halls with steady gait. RUE sites remain free from bleeding and hematoma. HL and tele removed. 1320 pt discharged home in stable condition via transport in wheelchair with belongings. This note was completed by: Karissa Blair [facility] OPERATIVE NOon 03-20-2023 OPERATIVE NO HNO ID: [id number] Author: Liliya Estrada MD Service: Vascular Surgery Author Type: Physician Type: Operative Report Filed: 03/20/2023 12:42 PM Note Text: OPERATIVE/PROCEDURE REPORT LOG ID: [id number] Surgery/Procedure Date: 03/20/2023 Incision/Procedure Start Time: 10:41 AM Incision Close/Procedure End Time: 11:55 AM Surgeon(s)/Proceduralis t(s) and Account Developer(s): Surgeon(s) and Role: * Liliya Estrada MD - Primary Procedure(s): 1) Realtime ultrasound guided access of RIGHT upper extremity brachiocephalic fistula 2) Right upper extremity fistulogram 3) Angioplasty of in-stent restenosis with 6x40mm POBA and then 7x40mm DCB 4) Angioplasty of proximal cephalic vein stenosis with 3x40mm balloon and 3x20mm cutting balloon. Anesthesia: Procedural Sedation Operative indications: 23 year old male who presents for RIGHT upper extremity fistulogram due to high arterial pressures and inadequate flows for dialysis. Procedure details: The patient was taken to the laborer road room and laid supine on the table. A huddle was performed with the surgery and nursing teams to confirm patient name, medical record number, date of , allergies, and procedure. Under continuous oxygen and monitoring, IV analgesia and sedation were given. Moderate sedation consisting of continuous ECG, pulse oximetry, cardiopulmonary monitoring, IV analgesia and sedation was performed by the nurse, overseen by the performing physician(s). A surgical time-out was performed. Using local anesthesia, ultrasound guidance, and a micropuncture system; the upper extremity arteriovenous fistula was accessed with the direction of flow. The transitional sheath was used to inject contrast to perform fistulagram with DSA runs visualizing the fistula in it's entirety as well as the central veins. Angiography showed a patent fistula with stenosis of the previously placed mid-cephalic vein stent which was >50%. There was some mild narrowing of the distal cephalic vein but no venous anastomosis stenosis.The sheath was up-sized to a 6-Fr sheath over a Glidewire. The stenosis was ballooned with 6x40mm POBA and then 7x40mm DCB. The distal cephalic vein narrowing was also ballooned with a 7x40mm balloon. This resulted in complete resolution of the lesion. The inflow was imaged and revealed a proximal cephalic segment that was narrowed >50% relative to the immediate distal cephalic vein. Using local anesthesia, ultrasound guidance, and a micropuncture system, the fistula was accessed towards the arteriovenous anastomosis. This was upsized to a 6-georgian sheath. The arterial anastamosis was ballooned with a 3x40mm balloon and then an area of recalcitrant stenosis was ballooned with a 3x20mm cutting balloon. Completion angiogram revealed a technically satisfactory result with significantly improved thrill throughout the entire fistula, no pulsatility. The sheath was removed and hemostasis was achieved with (2) figure of eight 3-0 prolene suture and pressure. The patient was transferred to the recovery area in stable condition. Pre-Op/Pre-Procedure Diagnosis: 1) Inflow and outflow AVF stenosis 2) ESRD Post-Op/Post-Procedure Diagnosis: Same Estimated Blood Loss: 30 ml Specimens: None Implantable Devices: None Drains: None Complications: None No qualified resident/fellow was available. I/primary surgeon/proceduralist performed the entire procedure. SIGNATURE: Liliya Estrada MD PATIENT NAME: Lawson Doyle DATE: 03/20/2023 TIME: 12:36 PM PAGER/CONTACT #: [phone] [facility] CBC W Auto Differential pane l (Bld)on 01-27-2023 Basophils (Bld) [#/Vol] 0.01 10*3/uL [facility] Basophils/100 WBC (Bld) 0.3 % 0.0 - 2.0 % [facility] Eosinophils (Bld) [#/Vol] 0.08 10*3/uL [facility] Eosinophils/100 WBC (Bld) 2.4 % 0.0 - 6.0 % [facility] Erythrocyte distribution width (RBC) [Ratio] 14.3 % 11.5 - 14.5 % [facility] Hematocrit (Bld) [Volume fraction] 29.8 % Low 41.0 - 52.0 % [facility] Hemoglobin (Bld) [Mass/Vol] 9.9 g/dL Low 13.5 - 17.5 g/dL [facility] Immature granulocytes (Bld) [#/Vol] 0.01 10*3/uL [facility] Immature granulocytes/100 WBC (Bld) 0.3 % 0.0 - 0.9 % [facility] Comment on above: Immature Granulocyte Count (IG) includes promyelocytes, myelocytes and metamyelocytes but does not include bands. Percent differential counts (%) should be interpreted in the context of the absolute cell counts (cells/UL). Interpretation and review of laboratory results Abnormal [facility] Lymphocytes (Bld) [#/Vol] 1.66 10*3/uL [facility] Lymphocytes/100 WBC (Bld) 50.3 % 13.0 - 44.0 % [facility] MCH (RBC) [Entitic mass] 33.9 pg 26.0 - 34.0 pg [facility] MCHC (RBC) [Mass/Vol] 33.2 g/dL 32.0 - 36.0 g/dL [facility] MCV (RBC) [Entitic vol] 102 fL High 80 - 100 fL [facility] Monocytes (Bld) [#/Vol] 0.26 10*3/uL [facility] Monocytes/100 WBC (Bld) 7.9 % 2.0 - 10.0 % [facility] Neutrophils (Bld) [#/Vol] 1.28 10*3/uL [facility] Comment on above: Percent differential counts (%) should be interpreted in the context of the absolute cell counts (cells/uL). Neutrophils/100 WBC (Bld) 38.8 % 40.0 - 80.0 % [facility] Nucleated RBC/100 WBC (Bld) [Ratio] 0.0 % [facility] Platelets (Bld) [#/Vol] 160 10*3/uL [facility] RBC (Bld) [#/Vol] 2.92 10*6/uL [facility] WBC (Bld) [#/Vol] 3.3 10*3/uL [facility] Comprehensive metabolic 2000 panelon 01-27-2023 Albumin BCP dye [Mass/Vol] 4.0 g/dL 3.4 - 5.0 g/dL [facility] ALP [Catalytic activity/Vol] 49 U/L 33 - 120 U/L [facility] ALT With P-5'-P [Catalytic activity/Vol] 13 U/L 10 - 52 U/L [facility] Comment on above: Patients treated wit h Sulfasalazine may generate falsely decreased results for ALT. Anion gap [Moles/Vol] 13 mmol/L 10 - 2 0 mmol/L [facility] AST With P-5'-P [Catalytic activity/Vol] 11 U/L 9 - 39 U/L [facility] Bilirubin [Mass/Vol] 0.3 mg/dL 0.0 - 1 .2 mg/dL [facility] Calcium [Mass/Vol] 8.2 mg/dL Low 8.6 - 10. 3 mg/dL [facility] Chloride [Moles/Vol] 101 mmol/L 98 - 10 7 mmol/L [facility] CO2 [Moles/Vol] 32 mmol/L 21 - 32 mmol/L [facility] Creatinine [Mass/Vol] 7.18 mg/dL High 0.50 - 1.30 mg/dL [facility] GFR/1.73 sq M.predicted MDRD (S/P/Bld) [Vol rate/Area] 10 mL/min/{1.73_m2} Low - PINF [facility] Comment on above: Calculations of gentry mated GFR are performed using the 2020 CKD-EPI Study Refit equation without the race variable for the IDMS-Traceable creatinine methods. https://jasn.asnjournals.org/content//ASN.651884 4235 Glucose [Mass/Vol] 98 mg/dL 74 - 99 mg/dL [facility] Interpretation and review of laboratory results Abnormal [facility] Potassium [Moles/Vol] 4.3 mmol/L 3.5 - 5.3 mmol/L [facility] Protein [Mass/Vol] 6.3 g/dL Low 6.4 - 8.2 g/dL [facility] Sodium [Moles/Vol] 142 mmol/L 136 - 145 mmol/L [facility] Urea nitrogen [Mass/Vol] 32 mg/dL High 6 - 23 mg/dL [facility] Lactateon 01-27-2023 Lactate [Moles/Vol] 0.7 mmol/L 0.4 - 2. 0 mmol/L [facility] Lactate [Moles/Vol]on 2022 Interpretation and review of laboratory results Normal [facility] Venipuncture immediately after or during the administration of Metamizole may lead to falsely low results. Testing should be performed immediately prior to Metamizole dosing. [facility] Natriuretic peptide B [Mass/ Vol]on 01-27-2023 Interpretation and review of laboratory results Normal [facility] Natriuretic peptide B (Bld) [Mass/Vol] 78 pg/mL 0 - 99 pg/mL [facility] <100 pg/mL - Heart failure unlikely 100-299 pg/mL - Intermediate probability of acute heart failure exacerbation. Correlate with clinical context and patient history. >=300 pg/mL - Heart Failure likely. Correlate with clinical context and patient history. BNP testing is performed using different testing methodology at [facility] than at other [facility]. Direct result comparisons should only be made within the same method. [facility] Tropinin I.cardiac panel Hig h sensitivity methodon 01-27-2023 Interpretation and review of laboratory results Normal [facility] Less than 99th percentile of normal range cutoff- Female and children under 18 years old <14 ng/L; Male <21 ng/L: Negative Repeat testing should be performed if clinically indicated. Female and children under 18 years old 14-50 ng/L; Male 21-50 ng/L: Consistent with possible cardiac damage and possible increased clinical risk. Serial measurements may help to assess extent of myocardial damage. >50 ng/L: Consistent with cardiac damage, increased clinical risk and myocardial infarction. Serial measurements may help assess extent of myocardial damage. NOTE: Children less than 1 year old may have higher baseline troponin levels and results should be interpreted in conjunction with the overall clinical context. NOTE: Troponin I testing is performed using a different testing methodology at [facility] than at other [facility]. Direct result comparisons should only be made within the same method. [facility] Troponin I, High Sensitivity , Initialon 01-27-2023 Tropinin I.cardiac panel High sensitivity method 5 ng/L 0 - 20 ng/L [facility] XR Chest Single viewon 01-27 No acute process. Signed by Kirsty Oliveira MD TELERADIOLOGY STUDY: Chest Radiograph; [01-27-2023; 9:48 am] INDICATION: Shortness of breath. COMPARISON: XR chest 01-24-2023 ACCESSION NUMBER(S): [id number] ORDERING CLINICIAN: MEKHI WEEMS TECHNIQUE: Frontal chest was obtained at 09:34 hours. FINDINGS: CARDIOMEDIASTINAL SILHOUETTE: Cardiomediastinal silhouette is normal in size and configuration. LUNGS: Lungs are clear. ABDOMEN: No remarkable upper abdominal findings. BONES: No acute osseous changes. TELERADIOLOGY Kirsty Oliveira MD - 01/27/2023 STUDY: Chest Radiograph; [01-27-2023; 9:48 am] INDICATION: Shortness of breath. COMPARISON: XR chest 01-24-2023 ACCESSION NUMBER(S): [id number] ORDERING CLINICIAN: MEKHI WEEMS TECHNIQUE: Frontal chest was obtained at 09:34 hours. FINDINGS: CARDIOMEDIASTINAL SILHOUETTE: Cardiomediastinal silhouette is normal in size and configuration. LUNGS: Lungs are clear. ABDOMEN: No remarkable upper abdominal findings. BONES: No acute osseous changes. IMPRESSION: No acute process. Signed by Kirsty Oliveira MD [facility] Work Phone: Radiology Study observation (narrative) [facility] Work Phone: XR Chest Single viewOrdered By: Kirsty Oliveira on 01-27-2023 [facility] Work Phone: ALGN RABBIT EPITHELIUM IGEon 01-17-2023 RABBIT EPITHELIUM CLASS Class 0 Normal Class 0 [facility] Comment on above: Order Comment: Speci men Type: BLOOD SPECIMEN Ordering Facility: [facility] Address: [address] [place] [address] Performed By: #### R ABEPI #### [facility] CLIA [id number] [address] [place] [address] [place] RABBIT EPITHELIUM IGE <0.35 Normal <0.35 [facility] Comment on above: Order Comment: Speci gayathri Type: BLOOD SPECIMEN Ordering Facility: [facility] Address: [address] [place] [address] Performed By: #### R ABEPI #### [facility] CLIA [id number] [address] [place] [address] [place] Basic metabolic 2000 panelon 01-17-2023 Anion gap [Moles/Vol] 14 mmol/L Normal 9-18 [facility] Comment on above: Order Comment: Speci men Type: BLOOD SPECIMEN Ordering Facility: [facility] Address: [address] [place] [address] Performed By: #### 2 4321-2 #### [facility] CLIA [id number] [address] [place] [address] [place] Calcium [Mass/Vol] 8.6 mg/dL Normal 8.5-10.2 [facility] Comment on above: Order Comment: Speci men Type: BLOOD SPECIMEN Ordering Facility: [facility] Address: [address] [place] [address] Performed By: #### 2 4321-2 #### [facility] CLIA [id number] [address] [place] [address] [place] Chloride [Moles/Vol] 101 mmol/L Normal 97-105 [facility] Comment on above: Order Comment: Speci men Type: BLOOD SPECIMEN Ordering Facility: [facility] Address: [address] [place] [address] Performed By: #### 2 4321-2 #### [facility] CLIA [id number] [address] [place] [address] [place] CO2 [Moles/Vol] 24 mmol/L Normal 22-30 [facility] Comment on above: Order Comment: Speci men Type: BLOOD SPECIMEN Ordering Facility: [facility] Address: [address] [place] [address] Performed By: #### 2 4321-2 #### [facility] CLIA [id number] [address] [place] [address] [place] Creatinine [Mass/Vol] 10.12 mg/dL High 0.73-1.22 [facility] Comment on above: Order Comment: Speci men Type: BLOOD SPECIMEN Ordering Facility: [facility] Address: [address] [place] [address] Performed By: #### 2 4321-2 #### [facility] CLIA [id number] [address] [place] [address] [place] Creatinine and Glomerular filtration rate.predicted panel (S/P/Bld) 7 mL/min/1.73m??? Low >=60 [facility] Comment on above: Order Comment: Speci men Type: BLOOD SPECIMEN Ordering Facility: [facility] Address: [address] [place] [address] Result Comment: Gentry mated Glomerular Filtration Rate (eGFR) is calculated using the 2020 CKD-EPI creatinine equation. This equation utilizes serum creatinine, sex, and age as parameters. The creatinine assay has traceable calibration to isotope dilution-mass spectrometry. Refer to KDIGO guidelines for clinical interpretation. In patients with unstable renal function, e.g. those with acute kidney injury, the eGFR may not accurately reflect actual GFR. Performed By: #### 2 4321-2 #### [facility] CLIA [id number] [address] [place] [address] [place] Glucose [Mass/Vol] 92 mg/dL Normal 74-99 [facility] Comment on above: Order Comment: Ez trinh Type: BLOOD SPECIMEN Ordering Facility: [facility] Address: [address] [place] [address] Result Comment: The [place] Diabetes Association (ADA) provides guidance for cutoff values for fasting glucose and random glucose. The ADA defines fasting as no caloric intake for at least 8 hours. Fasting plasma glucose results between 100 to 125 mg/dL indicate increased risk for diabetes (prediabetes). Fasting plasma glucose results greater than or equal to 126 mg/dL meet the criteria for diagnosis of diabetes. In the absence of unequivocal hyperglycemia, results should be confirmed by repeat testing. In a patient with classic symptoms of hyperglycemia or hyperglycemic crisis, random plasma glucose results greater than or equal to 200 mg/dL meet the criteria for diagnosis of diabetes. Reference: Standards of Medical Care in Diabetes 2016, [place] Diabetes Association. Diabetes Care. 2016.39(Suppl 1). Performed By: #### 2 4321-2 #### [facility] CLIA [id number] [address] [place] [address] [place] Potassium [Moles/Vol] 5.5 mmol/L High 3.7-5.1 [facility] Comment on above: Order Comment: Ez trinh Type: BLOOD SPECIMEN Ordering Facility: [facility] Address: [address] [place] [address] Performed By: #### 2 4321-2 #### [facility] CLIA [id number] [address] [place] [address] [place] Sodium [Moles/Vol] 139 mmol/L Normal 136-144 [facility] Comment on above: Order Comment: Ez trinh Type: BLOOD SPECIMEN Ordering Facility: [facility] Address: [address] [place] [address] Performed By: #### 2 4321-2 #### [facility] CLIA [id number] [address] [place] [id number] [place] Urea nitrogen [Mass/Vol] 53 mg/dL High 9- [facility] Comment on above: Order Comment: Speci men Type: BLOOD SPECIMEN Ordering Facility: [facility] Address: [address] [place] [address] Performed By: #### 2 4321-2 #### [facility] CLIA [id number] [address] [place] [id number] [place] ECHOon 01-17-2023 Echocardiography Echocardiography Report: Transthoracic Echo [facility] Date of service: 01/17/2023 10:11:50 AM Ordering physician: HUA WHEELER Indication: Pre Op Kidney Transplant Technologist: Olivia Villalobos Interpreting physician: Linda Jasso MD PATIENT: Name: MR. LAWSON DOYLE : 2000 Age: 22 years Gender: M History of chronic kidney disease. Primary rhythm: sinus. Height: 177.80 cm BSA: 1.92 m Weight: 74.89 kg BMI: 23.7 kg/m Heart rate 61 bpm Blood pressure 126/100 mmHg Technically difficult exam due to limited imaging window. Color Doppler was utilized to interrogate the cardiac valves assessed and spectral Doppler was utilized to determine the flow velocities and pressure gradients reported in this exam. MEASUREMENTS: Value Indexed Normal Max aortic dimension 2.7 cm Ao < 3.8 Left atrial volume 47 ml (biplane A-L) 24 ml/m Luis M <= 34 LV ID (diastole) 4.9 cm (2D) 2.55 cm/m LV ID (systole) 3.2 cm (2D) 1.66 cm/m IVS, leaflet tips 0.6 cm (2D) Posterior wall thickness 1.0 cm (2D) Left ventricular mass 131 g (2D) 68 g/m LV stroke volume 79 ml (2D biplane) LV end diastolic volume 126 ml (2D biplane) 65.7 ml/m 34<=EDVi<75 LV end systolic volume 47 ml (2D biplane) 24.4 ml/m Ejection Fraction 63 % (2D biplane) EF > 52 FINDINGS: LEFT VENTRICLE The left ventricle is normal in size. Left ventricular systolic function is normal globally. Normal left ventricular diastolic function. Wall Motion: All scored segments are normal. RIGHT VENTRICLE The right ventricle is not well visualized. Right ventricular size cannot be accurately determined. Right ventricular systolic function is most likely normal based on tissue Doppler and Tricuspid annular displacement. RV systolic tissue Doppler velocity is 16.0 cm/s. Tricuspid annular displacement is 3.8 cm. Estimated right ventricular systolic pressure is 27 mmHg consistent with normal pulmonary artery pressures. Estimated right atrial pressure is 3 mmHg based on IVC assessment. LEFT ATRIUM The left atrial cavity is normal in size. Pulmonary Veins: The pulmonary venous pattern showed normal systolic flow. RIGHT ATRIUM The right atrial cavity is normal in size. Inferior Vena Cava: The inferior vena cava appears normal measuring 1.3 cm. The vessel decreases greater than 50 percent with inspiration. MITRAL VALVE The mitral valve leaflets are structurally normal. There is trace (trace - 1+) mitral valve regurgitation. There is mild thickening. The pressure half time is 83 msec. TRICUSPID VALVE The tricuspid valve leaflets are structurally normal. There is trace (trace - 1+) tricuspid valve regurgitation. AORTIC VALVE The aortic valve cusps are structurally normal. There is no aortic valve regurgitation. Tricuspid aortic valve. The peak gradient is 10 mmHg (peak velocity = 157.0 cm/s). PULMONIC VALVE The pulmonic valve cusps are structurally normal. There is trace pulmonic valve regurgitation. AORTA The visualized aorta is normal in size. Measurements - Mid ascending aorta 2.7 cm. INTERATRIAL SEPTUM There is no evidence of intracardiac shunting as detected by Doppler. PERICARDIUM There is no pericardial effusion. CONCLUSIONS: - Technically difficult exam due to limited imaging window. Cannot fully visualize the right ventricle. - Exam indication: Pre Op Kidney Transplant - The left ventricle is normal in size. Left ventricular systolic function is normal. EF = 63 5% (2D biplane) Normal left ventricular diastolic function. - Right ventricular systolic function is most likely normal by tissue Doppler and Tricuspid annular displacement. The right ventricular size cannot be accurately determined due to limited visualization. If clinically indicated, consider adjunctive imaging modality to better visualize right ventricular size and function. - There are no significant valvular abnormalities. - The patient has not had a prior CC echocardiographic exam for comparison. * * * Final * * * [employer] : [id number] Normal [facility] EKGon 01-17-2023 Electrocardiogram Ventricular Rate : 5 9 BPM Atrial Rate : 59 BPM P-R Interval : 129 ms QRS Duration : 85 ms Q-T Interval : 408 ms QTC Calculation(Bazett) : 405 ms Calculated P [place] : 49 degrees Calculated R [place] : 56 degrees Calculated T [place] : [address] elev, probable normal early repol pattern Normal ECG Confirmed by LINDA JASSO MD ([id number]) on 02/08/2023 8:34:27 PM NAME : LAWSON DOYLE PID : [id number] : 2000 Gender : Male Race : ORD : Procedure Date : Jan 17 2023 07:02:09 Edit Date : Feb 08 2023 20:34:30 Diagnosis: Sinus rhythm ST elev, probable normal early repol pattern Normal ECG Confirmed by LINDA JASSO MD ([id number]) on 02/08/2023 8:34:27 PM Test Reason : Location : 400 : [facility] 15 Overread By : LINDA JASSO MD Edited By : LINDA JASSO MD Referred By : , Acquired by : Sushma SOLORZANO [facility] HISTORY PHYSICALon HISTORY PHYSICAL HNO ID: [id number] Author: Ankush Perez PA-C Service: Cardiovascular Disease Author Type: Physician Account Developer Type: HANDP Filed: 01/17/2023 7:14 AM Note Text: UPDATED PROCEDURAL SEDATION HISTORY AND PHYSICAL EXAMINATION SERVICE DATE: 01/17/2023 SERVICE TIME: 6:58 AM PROCEDUREALIST: Surgeon(s) and Role: * Dave Nascimento MD - Primary PHYSICAL EXAM MUST BE COMPLETED ON ADMISSION The History and Physical (completed in the past 30 days) has been reviewed and the patient has been examined. The contents accurately reflect the patient's condition with the following additions or revisions since the HANDP was completed. This HANDP can be found in the Electronic Medical Record.12/21/22 ASA Class: ASA Class:: Patient with severe systemic disease - Emergency Procedure No data found. AIRWAY: Airway Visualization of Uvula: Yes Mouth opening greater than 2 fingerbreadths: Yes Neck Full Range of Motion: Yes LUNGS: Lungs clear to auscultation, Good diaphragmatic excursion CARDIAC: Normal S1 - S2, no murmur CAROTIDS: Without bruits History of TIA: No History of RI: No Diabetes: No History of Bleeding Issues: No SEDATION GOAL: Moderate DATA: Diagnostic tests reviewed for today's visit: Most recent EKG Most recent labs POC INR: CBC: Recent Labs 12/21/22 1137 WBC 9.34 RBC 3.63* HB 11.7* HCT 35.2* PLT 285 MCV 97.0 MCH 32.2 MPV 9.9 Coags: Recent Labs 12/21/22 1137 INR 1.0 APTT 27.5 BMP: Recent Labs 01/04/23 0834 NA 139 K 4.3 CHLOR 94* CO2 33* BUN 24 CREAT 6.57* GLUC 94 Provisional Diagnosis/Treatment Plan: A.V surgical fistulogram, Mechanical complication of surgical A.V fistula Assessment: Pt returns with complain of drop on flow rate and increased arterial pressure. He was here for same issue on 01/04/23 which received a stent at A.V fistula of right upper arm . ESRD, H.D, since March 2022, on Sun, SUN, SUN days had full session past Sunday.. He has ALPORT syndrome, HTN, Plan: Ordered Pre-op LABS and EKG reviewed and results evaluated. The medical history was reviewed and updated. Pre-procedural IV antibiotic was ordered Proceed with procedure I spent a total of 25 minutes on the date of the service which included preparing to see the patient, [id number] patient care, completing clinical documentation, obtaining and/or reviewing separately obtained history, performing a medically appropriate examination, and ordering medications, tests, or procedures. SIGNATURE: Ankush Perez PA-C PATIENT NAME: Lawson Doyle DATE: January 17, 2023 TIME: 6:58 AM PAGER: [facility] NURSING PROGon 01-17-2023 NURSING PROG HNO ID: [id number] Author: Paul Peterson RN Service: Nursing Author Type: Registered Nurse Type: Nursing Progress Note Filed: 01/17/2023 10:56 AM Note Text: Nursing Progress Note Topic of Note: Daily Note PATIENT NAME: Lawson Doyle Patient Location: SECOND FLOOR OPERATOR POOL/ SECOND FLOOR OPERATOR POOL Room: SECOND FLOOR OPERATOR POOL ( INVASIVE CARDIOLOGY) Post fistula thromectomy. VSS. Pt awake alert oriented. Dr. Gonzalez at bedside. VSS. Taking po diet. Right arm fistula dressing dry intact, + thrill. 1000: too0k po diet. Discharge meds and f/u given to pt and father. [id number] understanding of meds diet and activity. Echo to be done at bedside per Dr. Cerrato request per previous order for transplant list. Right arm + thrill. Dressing dry intact. 1015: echo per Dr. Cerrato request per previous order. Right arm unchanged. 1055: assisted pt to restroom. Right arm + thrill. Dressing dry intact. Denies comp-laints. Discharged via w/c. Father to drive home. This note was completed by: Paul Peterson [facility] OPERATIVE NOon 01-17-2023 OPERATIVE NO HNO ID: [id number] Author: Dave Nascimento MD Service: Vascular Surgery Author Type: Physician Type: Operative Report Filed: 01/17/2023 9:16 AM Note Text: OPERATIVE/PROCEDURE REPORT LOG ID: [id number] Surgery/Procedure Date: 01/17/2023 Incision/Procedure Start Time: 829 Incision Close/Procedure End Time: 912 Surgeon(s)/Proceduralis t(s) and Account Developer(s): Surgeon(s) and Role: * Dave Nascimento MD - Primary Procedure(s): Right upper extremity fistulogram Angioplasty of cephalic vein with cuttting and drug coated balloon Anesthesia: Local with IV moderate concious sedation Operative indications: 22 year old male who presents for right upper extremity fistulogram due to arteriovenous fistula malfunction. Procedure details: The patient was taken to the interventional room and laid supine on the table. A huddle was performed with the surgery, and nursing teams to confirm patient name, medical record number, date of , allergies, and procedure. Under continuous oxygen and monitoring, IV analgesia and sedation were given. Moderate sedation consisting of continuous ECG, pulse oximetry, cardiopulmonary monitoring, IV analgesia and sedation was performed by the nurse, overseen by the performing physician(s). A surgical time-out was performed. Using local anesthesia, ultrasound guidance, and a micropuncture system; the right upper extremity arteriovenous fistula was accessed in ante grade manner with the catheter directed toward the heart. The micropuncture sheath was used to inject contrast to perform fistulagram with DSA runs visualizing the fistula in it's entirety as well as the central veins. Angiography showed patent cephalic vein arteriovenous fistula with stenosis of the proximal cephalic vein . The sheath was up-sized to a 6-Fr slender sheath over a guide wire. Heparin was administered. The stenosis was crossed with an 0.018 wire and angioplastied with a 5x40 plain balloon. The stenosis was recalcitrant. It was angioplastied with a 6x20 Conquest without expansion. It was angioplastied next with a 6 x 20 cutting balloon (Hotelscan) with this yielded a good technical result.. It was then treated with a 6x40 Regan drug coated balloon. Completion angiogram revealed a technically satisfactory result with significantly improved thrill throughout the entire access without pulsatility. The sheath was removed and hemostasis was achieved with a 4-0 Prolene suture and pressure. The patient was transferred to the recovery area in stable condition. Pre-Op/Pre-Procedure Diagnosis: arteriovenous fistula malfunction Post-Op/Post-Procedure Diagnosis: arteriovenous fistula malfunction Estimated Blood Loss: 10 ml Specimens: None Implantable Devices: None Drains: None Complications: None No qualified resident/fellow was available. [facility] BRIEF OP NOTon 01-04-2023 BRIEF OP NOT HNO ID: [id number] Author: Yannick Bruno MD Service: Vascular Surgery Author Type: Resident Type: Brief Op Note Filed: 01/04/2023 11:09 AM Note Text: BRIEF OPERATIVE / PROCEDURE NOTE LOG ID: [id number] Surgery/Procedure Date: 01/04/2023 Incision/Procedure Start Time: 10:33 AM Incision Close/Procedure End Time: 1059 Surgeon(s)/Proceduralis t(s) and Account Developer(s): Surgeon(s) and Role: * Don Patel MD - Primary * Yannick Bruno MD - Resident - Assisting No Additional Staff Procedure(s): PERC THROMBECTOMY/INFUSION FOR THROMBOLYSIS AV FISTULA,FLUORO GUIDED,INCLUSIVE OF RAD NESHA: 19760 (CPT?) 1) 6x20mm cutting balloon 2) 8x40mm absolute pro self expanding stent 3) 8x40 industrial painter CURLY Angio: Access: 7Fr Closure: pressure Contrast: 20 cc Fluorotime: 1.9 min, 9.68 mGy Anesthesia: Procedural Sedation ASA Class: ASA Class:: III Findings: 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, treated with 6x20mm cutting balloon, 8x40mm stent placement and post dilated with 8x40mm industrial painter Pulses: RUE: Palpable +2 radial Medications: No current facility-administered medications on file prior to encounter. Current Outpatient Medications on File Prior to Encounter Medication Sig RENAPLEX-D 800 mcg-12.5 mg -2,000 unit tab Take 1 tablet by mouth once daily. carvedilol (COREG) 12.5 mg tablet twice daily with meals. losartan (COZAAR) 100 mg tablet once daily. sevelamer carbonate (RENVELA) 800 mg tablet once daily. amLODIPine (NORVASC) 10 mg tablet once daily. (Patient not taking: Reported on 12/21/2022) melatonin 3 mg tablet Take 2 tablets by mouth. (Patient not taking: Reported on 12/21/2022) ondansetron orally disintegrating (ZOFRAN ODT) 4 mg disintegrating tablet traMADol (ULTRAM) 50 mg tablet (Patient not taking: Reported on 12/21/2022) tuberculin,purif.prot.d eriv. (TUBERSOL INTRADERM.) 0.1 mL by INTRADERMAL route. (Patient not taking: Reported on 12/21/2022) doxercalciferol (HECTOROL INTRAVENOUS) 1 mcg. ondansetron HCl (ZOFRAN ORAL) Take 4 mg by mouth as needed. Post-operative Plan of Care: Discharge to home Estimated Blood Loss: Minimal Specimens: * No specimens in log * Implants: * No implants in log * Complications: None Pre-Op/Pre-Procedure Diagnosis: malfunctioning AVF Post-Op/Post-Procedure Diagnosis: Same as Preop SIGNATURE: Yannick Bruno MD PATIENT NAME: Lawson Doyle DATE: January 04, 2023 TIME: 11:05 AM PAGER/CONTACT #: [facility] Basic metabolic 2000 panelon 01-04-2023 Anion gap [Moles/Vol] 12 mmol/L Normal 9-18 [facility] Comment on above: Order Comment: Speci men Type: BLOOD SPECIMENOrdering Facility: [facility] Address: [address] [place] [address] Performed By: #### 2 4321-2 ####[facility] LABORATORYCLIA [id number] [place] [id number] [place] Calcium [Mass/Vol] 9.5 mg/dL Normal 8.5-10.2 [facility] Comment on above: Order Comment: Speci men Type: BLOOD SPECIMENOrdering Facility: [facility] Address: [address] [place] [address] Performed By: #### 2 4321-2 ####[facility]ATORYCLIA [id number] [place] [id number] [place] Chloride [Moles/Vol] 94 mmol/L Low 97-105 [facility] Comment on above: Order Comment: Speci men Type: BLOOD SPECIMENOrdering Facility: [facility] Address: [address] [place] [address] Performed By: #### 2 4321-2 ####[facility] LABORATORYCLIA [id number] [place] [id number] [place] CO2 [Moles/Vol] 33 mmol/L High 22-30 [facility] Comment on above: Order Comment: Speci men Type: BLOOD SPECIMENOrdering Facility: [facility] Address: [address] [place] [address] Performed By: #### 2 4321-2 ####[facility] LABORATORYCLIA [id number] [place] [id number] [place] Creatinine [Mass/Vol] 6.57 mg/dL High 0.73-1.22 [facility] Comment on above: Order Comment: Speci men Type: BLOOD SPECIMENOrdering Facility: [facility] Address: [address] [place] [address] Performed By: #### 2 4321-2 ####[facility] LABORATORYCLIA [id number] [place] [id number] [place] Creatinine and Glomerular filtration rate.predicted panel (S/P/Bld) 11 mL/min/1.73m??? Low >=60 [facility] Comment on above: Order Comment: Ez trinh Type: BLOOD SPECIMENOrdering Facility: [facility] Address: [place] [address] Result Comment: Gentry mated Glomerular Filtration Rate (eGFR) is calculated using the 2020 CKD-EPI creatinine equation. This equation utilizes serum creatinine, sex, and age as parameters. The creatinine assay has traceable calibration to isotope dilution-mass spectrometry. Refer to KDIGO guidelines for clinical interpretation. In patients with unstable renal function, e.g. those with acute kidney injury, the eGFR may not accurately reflect actual GFR. Performed By: #### 2 4321-2 ####[facility]ORATORYCLIA [id number] [place] [address] [place] Glucose [Mass/Vol] 94 mg/dL Normal 74-99 [facility] Comment on above: Order Comment: Ez trinh Type: BLOOD SPECIMENOrdering Facility: [facility] Address: [place] [address] Result Comment: The [place] Diabetes Association (ADA) provides guidance for cutoff values for fasting glucose and random glucose. The ADA defines fasting as no caloric intake for at least 8 hours. Fasting plasma glucose results between 100 to 125 mg/dL indicate increased risk for diabetes (prediabetes). Fasting plasma glucose results greater than or equal to 126 mg/dL meet the criteria for diagnosis of diabetes. In the absence of unequivocal hyperglycemia, results should be confirmed by repeat testing. In a patient with classic symptoms of hyperglycemia or hyperglycemic crisis, random plasma glucose results greater than or equal to 200 mg/dL meet the criteria for diagnosis of diabetes. Reference: Standards of Medical Care in Diabetes 2016, [place] Diabetes Association. Diabetes Care. 2016.39(Suppl 1). Performed By: #### 2 4321-2 ####[facility]ORATORYCLIA [id number] [place] [id number] [place] Potassium [Moles/Vol] 4.3 mmol/L Normal 3.7-5.1 [facility] Comment on above: Order Comment: Ez trinh Type: BLOOD SPECIMENOrdering Facility: [facility] Address: [place] [address] Performed By: #### 2 4321-2 ####[facility]ORATORYCLIA [id number] [place] [id number] [place] Sodium [Moles/Vol] 139 mmol/L Normal 136-144 [facility] Comment on above: Order Comment: Speci men Type: BLOOD SPECIMENOrdering Facility: [facility] Address: [address] [place] [address] Performed By: #### 2 4321-2 ####[facility]ORATORYCLIA [id number] [place] [id number] [place] Urea nitrogen [Mass/Vol] 24 mg/dL Normal 9-24 [facility] Comment on above: Order Comment: Speci men Type: BLOOD SPECIMENOrdering Facility: [facility] Address: [address] [place] [address] Performed By: #### 2 4321-2 ####[facility]ORATORYCLIA [id number] [address] OF [facility] ECG COMPLETEon 01-04-2023 ECG COMPLETE Ventricular Rate : 7 1 BPM Atrial Rate : 69 BPM P-R Interval : 125 ms QRS Duration : 89 ms Q-T Interval : 385 ms QTC Calculation(Bazett) : 419 ms Calculated P [place] : 62 degrees Calculated R [place] : 62 degrees Calculated T [place] : 33 degrees Sinus rhythm Normal ECG Confirmed by ANGELO CHEUNG MD ([id number]) on 01/13/2023 2:26:53 PM NAME : LAWSON DOYLE PID : [id number] : 2000 Gender : Male Race : ORD : [id number] Procedure Date : Jan 04 2023 08:18:38 Edit Date : Jan 13 2023 14:26:58 Diagnosis: Sinus rhythm Normal ECG Confirmed by ANGELO CHEUNG MD ([id number]) on 01/13/2023 2:26:53 PM Test Reason : Pre OP Location : 400 : EKG 15 Overread By : ANGELO CHEUNG MD Edited By : ANGELO CHEUNG MD Referred By : , Acquired by : , Normal [facility] HISTORY PHYSICALon HISTORY PHYSICAL HNO ID: [id number] Author: Tatum Chowdhury APRN.DEPARTMENTAL SHIPPING CLERK, DNP Service: Cardiovascular Medicine Author Type: Nurse Practitioner Type: HANDP Filed: 01/04/2023 8:29 AM Note Text: UPDATED PROCEDURAL SEDATION HISTORY AND PHYSICAL EXAMINATION SERVICE DATE: 01/04/2023 SERVICE TIME: 8:19 AM PROCEDUREALIST: Surgeon(s) and Role: * Don Patel MD - Primary PHYSICAL EXAM MUST BE COMPLETED ON ADMISSION The History and Physical (completed in the past 30 days) has been reviewed and the patient has been examined. The contents accurately reflect the patient's condition with the following additions or revisions since the HANDP was completed. This HANDP can be found in the Electronic Medical Record. Examination indicates that the patient presents for: PERC THROMBECTOMY/INFUSION FOR THROMBOLYSIS AV FISTULA,FLUORO GUIDED,INCLUSIVE OF RAD NESHA - Right ASA Class: ASA Class:: Patient with severe systemic disease Patient Vitals for the past 24 hrs: BP Temp Temp src Pulse SpO2 Height Weight 01/04/23 0806 113/73 37.1 ?C (98.8 ?F) Temporal 88 97 % 177.8 cm (5' 10") 73.7 kg (162 lb 6.4 oz) AIRWAY: Airway Visualization of Uvula: Yes Mouth opening greater than 2 fingerbreadths: Yes Neck Full Range of Motion: Yes LUNGS: Lungs clear to auscultation, Good diaphragmatic excursion CARDIAC: Normal S1 and S2; no rubs, murmurs, or gallops CAROTIDS: Without bruits LE PULSES: Right Leg- Palpable. Left Leg- Palpable History of TIA: No History of RI: No Diabetes: No History of Bleeding Issues: No SEDATION GOAL: Moderate DATA: Diagnostic tests reviewed for today's visit: Most recent EKG Most recent labs POC INR: CBC: Recent Labs 12/21/22 1137 WBC 9.34 RBC 3.63* HB 11.7* HCT 35.2* PLT 285 MCV 97.0 MCH 32.2 MPV 9.9 Coags: Recent Labs 12/21/22 1137 INR 1.0 APTT 27.5 BMP: Recent Labs 12/21/22 1137 NA 139 K 4.5 CHLOR 94* CO2 31* BUN 31* CREAT 8.39* GLUC 94 Provisional Diagnosis/Treatment Plan: PERC THROMBECTOMY/INFUSION FOR THROMBOLYSIS AV FISTULA,FLUORO GUIDED,INCLUSIVE OF RAD NESHA - Right Assessment: Mr. Lawson Doyle is a 22 year old male with h/o HTN, iron deficiency anemia, CKD stage 4, ESRD on HD. Plan: Ordered Pre-op LABS and EKG reviewed and results evaluated. The medical history was reviewed and updated. Proceed with procedure - EKG: SR, HR 71 bpm - BMP: pending - last creatinine 8.39, K 4.5, hemoglobin 11.7 I spent a total of 20 minutes on the date of the service which included preparing to see the patient, [id number] patient care, completing clinical documentation, obtaining and/or reviewing separately obtained history, performing a medically appropriate examination, counseling and educating the patient/family/caregive r, and ordering medications, tests, or procedures. SIGNATURE: Tatum Chowdhury APRN.SARA, PAPO PATIENT NAME: Lawson Doyle DATE: January 04, 2023 TIME: 8:19 AM PAGER: [facility] NURSING PROGon 01-04-2023 NURSING PROG HNO ID: [id number] Author: Ed Jade RN Service: Nursing Author Type: Registered Nurse Type: Nursing Progress Note Filed: 01/04/2023 12:55 PM Note Text: 1115 Pt to recovery room s/p fistulagram right upper arm fistula. Pt is awake and alert; BALDERR[place]. Denies complaints of pain or nausea at this time. Dressing to right upper arm dry and intact; no bleeding or hematoma noted. +bruit/thrill. VSS. SR noted on the monitor. Pt tolerating food/drink without difficulty. Pt will call his friend for ride home. 1145 Pt resting comfortably; remains pain free. Dressing to right arm dry and intact. 1205 Written and verbal discharge instructions provided to patient; understanding verbalized. 1240 Pt ambulating in room with steady gait. Denies complaints of dizziness or lightheadedness. 1250 Discharged home with friend via wheelchair. [facility] OPERATIVE NOon 01-04-2023 OPERATIVE NO HNO ID: [id number] Author: Don Patel MD Service: Vascular Surgery Author Type: Physician Type: Operative Report Filed: 01/22/2023 11:17 AM Note Text: OPERATIVE/PROCEDURE REPORT LOG ID: [id number] Surgery/Procedure Date: 01/04/2023 Incision/Procedure Start Time:10:33 AM Incision Close/Procedure End Time: Surgeon(s)/Proceduralis t(s) and Account Developer(s): Surgeon(s) and Role: * Don Patel MD - Primary * Yannick Bruno MD - Resident - Assisting No Additional Staff Procedure(s): Fistulogram right upper extremity Angioplasty and stenting of Fistula cephalic vein with 6 x 2 cutting balloon followed by 8 x 40 self expanding stent (Absolute Pro) post dilated with 8 mm balloon Anesthesia: Procedural Sedation Operative indications: 22 year old male who presents for fistulogram due to high pressures. Procedure details: The patient was taken to the laborer road and laid supine on the table. After time-in and under continuous oxygen and monitoring, IV analgesia and sedation were given. Using local anesthesia, ultrasound guidance, and a micropuncture system, the upper extremity av graft was accessed antegrade. The transitional sheath was used to inject contrast to perform fistulagram with DSA runs visualizing the fistula in it's entirety as well as the central veins. Angiography showed 90% stenosis of the cephalic vein. The sheath was up-sized to a 7 georgian sheath. The stenosis was ballooned with a/an 6mm cutting balloon followed by 8 x 4 stent as above. There was <10% residual stenosis. Completion angiogram revealed a technically satisfactory result with significantly improved thrill throughout the entire fistula, no pulsatility. The sheath was removed and hemostasis was achieved with suture/pressure. The Patient was transferred to the recovery area in stable condition. Pre-Op/Pre-Procedure Diagnosis: dialysis access malfunction Post-Op/Post-Procedure Diagnosis: same Estimated Blood Loss: 0 ml Specimens: None Implantable Devices: stent x 1 as above Drains: None Complications: None The primary surgeon/proceduralist performed the procedure with assistance. SIGNATURE: Tyler Patel MD PATIENT NAME: Lawson Doyle DATE: 01/04/2023 TIME: 11:15 AM PAGER/CONTACT #: [phone] [facility] BLOOD TB SCREENon 12-22-2022 M. tuberculosis tuberculin stim IFN-g Ql (Bld) Negative [facility] Mitogen minus Nil >=0.50 IU/mL [facility] TB Gamma Interpretation Infection with M. tuberculosis complex is unlikely. If latent tuberculosis infection is highly suspected, a negative result does not rule out the infection. Specimens from immunocompromised patients and those <5 years of age may show false negative results. In case of a contact investigation, please repeat 8-12 weeks after a known exposure. [facility] TB Nil 0.02 IU/mL <=8.00 IU/mL [facility] TB1 Ag minus Nil 0.10 IU/mL <0.35 IU/mL [facility] TB2 Ag minus Nil 0.11 IU/mL <0.35 IU/mL [facility] ACTIVATED PTTon 12-21-2022 aPTT Coag (PPP) [Time] 27.5 s 23.0 - 32.4 sec [facility] CBC panel Auto (Bld)on 12-21 Erythrocyte distribution width (RBC) [Ratio] 13.1 % 11.5 - 15.0 % [facility] Hematocrit (Bld) [Volume fraction] 35.2 % Low 39.0 - 51.0 % [facility] Hemoglobin (Bld) [Mass/Vol] 11.7 g/dL Low 13.0 - 17.0 g/dL [facility] MCH (RBC) [Entitic mass] 32.2 pg 26.0 - 34.0 pg [facility] MCHC (RBC) [Mass/Vol] 33.2 g/dL 30.5 - 36.0 g/dL [facility] MCV (RBC) [Entitic vol] 97.0 fL 80.0 - 100.0 fL [facility] Nucleated RBC (Bld) [#/Vol] <0.01 k/uL [facility] Platelet mean volume (Bld) [Entitic vol] 9.9 fL 9.0 - 12.7 fL [facility] Platelets (Bld) [#/Vol] 285 10*3/uL 150 - 400 k/uL [facility] RBC (Bld) [#/Vol] 3.63 10*6/uL Low 4.20 - 6.0 0 m/uL [facility] WBC (Bld) [#/Vol] 9.34 10*3/uL 3.70 - 11. 00 k/uL [facility] CMV IGG ANTIBODY BLon 2022 CMV IgG Qn 0.28 U/mL [facility] CMV IgG Qnon 12-21-2022 CMV IgG Qualitative Negative Negative [facility] Comprehensive metabolic 2000 panelon 12-21-2022 Albumin [Mass/Vol] 4.8 g/dL 3.9 - 4.9 g/dL [facility] ALP [Catalytic activity/Vol] 86 U/L 38 - 113 U/L [facility] ALT [Catalytic activity/Vol] 15 U/L 10 - 54 U/L [facility] Anion gap [Moles/Vol] 14 mmol/L 9 - 18 mmol/L [facility] AST [Catalytic activity/Vol] 9 U/L Low 14 - 40 U/L [facility] Bilirubin [Mass/Vol] 0.5 mg/dL 0.2 - 1 .3 mg/dL [facility] Calcium [Mass/Vol] 9.5 mg/dL 8.5 - 10. 2 mg/dL [facility] Chloride [Moles/Vol] 94 mmol/L Low 97 - 10 5 mmol/L [facility] CO2 [Moles/Vol] 31 mmol/L High 22 - 30 mmol/L [facility] Creatinine [Mass/Vol] 8.39 mg/dL High 0.73 - 1.22 mg/dL [facility] Estimated Glomerular Filtration Rate 8 mL/min/1.73m Low >=60 mL/min/1.73m [facility] Glucose [Mass/Vol] 94 mg/dL 74 - 99 mg/dL [facility] Potassium [Moles/Vol] 4.5 mmol/L 3.7 - 5.1 mmol/L [facility] Protein [Mass/Vol] 7.3 g/dL 6.3 - 8.0 g/dL [facility] Sodium [Moles/Vol] 139 mmol/L 136 - 144 mmol/L [facility] Urea nitrogen [Mass/Vol] 31 mg/dL High 9 - 24 mg/dL [facility] EBV capsid IgG Qn (S)on EBV VCA IgG, Qual Positive Abnormal Negative [facility] HCV QUANT RNA BY PCRon 12-21 HCV RNA MIGUEL+probe Qn Not detected HCV RNA not detected by PCR. [facility] HIV 1+2 Ab IA Qlon 3 HIV 1 and 2 Ab IA.rapid Nom [facility] HIV 1+2 Ab+HIV1 p24 Ag IA Ql Non-Reactive Nonreactive [facility] HIV immunoassay testing algorithm interpretation (S/P/Bld) [Interp] [facility] Laboratory - Blood bankon ABO group Nom (Bld) A [facility] Rh Nom (Bld) Positive [facility] No Panel Informationon 12-21 [facility] PHOSPHORUS INORGANICon 12-21 Phosphate [Mass/Vol] 6.9 mg/dL High 2.7 - 4 .8 mg/dL [facility] PT panel Coag (PPP)on 2022 INR Coag (PPP) [Relative time] 1.0 {INR} 0.9 - 1.3 [facility] PT Coag (PPP) [Time] 10.4 s 9.7 - 1 3.0 sec [facility] PTH INTACT BLDon 12-21-2022 Parathyrin.intact [Mass/Vol] 479 pg/mL High 15 - 65 pg/mL [facility] RUBEOLA (MEASLES)IGGon 12-21 Measles Antibody, IGG Qualitative Equivocal Abnormal Positive [facility] Reagin and Treponema pallidu m IgG and IgM [Interp]on 12-21-2022 T. pallidum IgG+IgM IA Ql (S) Non-Reactive Nonreactive [facility] SYPHILIS TOTAL W/REFLEXon Reagin and Treponema pallidum IgG and IgM [Interp] Cannot exclude recent Treponemal infection if specimen collected within 7-10 days after appearance of suspect lesions or 2-3 weeks after an exposure. Clinical correlation is required. [facility] TYPE + SCREENon 12-21-2022 Blood group antibody screen Ql Negative [facility] HIstorical Ab Scr Status Negative [facility] Type and Screen Expiration 12/24/2022 23:59 [facility] VARICELLA ZOSTER IGGon 12-21 Varicella Zoster IgG, Qual Negative Abnormal Positive [facility] BRIEF OP NOTon 10-31-2022 BRIEF OP NOT HNO ID: [id number] Author: Ameya Cueto MD Service: Vascular Surgery Author Type: Resident Type: Brief Op Note Filed: 10/31/2022 3:38 PM Note Text: BRIEF OPERATIVE / PROCEDURE NOTE LOG ID: [id number] Surgery/Procedure Date: 10/31/2022 Incision/Procedure Start Time: 2:26 PM Incision Close/Procedure End Time: 2:49 PM Surgeon(s)/Proceduralis t(s) and Account Developer(s): Surgeon(s) and Role: * Don Patel MD - Primary * Ameya Cueto MD - Resident - Assisting No Additional Staff Procedure(s): R fistulogram with PTAx2 (Cutting balloon) Fluoro time: 3.6 Radiation dose/AK: 21.8 Radiation surface area/DAP: 5050 Contrast (mL): 55 mL Anesthesia: Procedural Sedation ASA Class: ASA Class:: III Findings: 2 segmental stentoses in the R AVF. Medications: Home medications Post-operative Plan of Care: Discharge home Estimated Blood Loss: 10 mL Specimens: None Complications: None PRE-OP/PRE-PROCEDURE DIAGNOSIS: Malfunctioning R AVF POST-OP/POST-PROCEDURE DIAGNOSIS: Same as Preop SIGNATURE: Ameya Cueto MD PATIENT NAME: Lawson Doyle DATE: October 31, 2022 TIME: 3:36 PM Normal [facility] Basic metabolic 2000 panelon 10-31-2022 Anion gap [Moles/Vol] 11 mmol/L Normal 9-18 [facility] Comment on above: Order Comment: Speci men Type: BLOOD SPECIMENOrdering Facility: [facility] Address: [address] [place] [address] Performed By: #### 2 4321-2 ####[facility]ORATORYCLIA [id number] [place] [address] [place] Calcium [Mass/Vol] 9.5 mg/dL Normal 8.5-10.2 [facility] Comment on above: Order Comment: Speci men Type: BLOOD SPECIMENOrdering Facility: [facility] Address: [address] [place] [address] Performed By: #### 2 4321-2 ####[facility]ORATORYCLIA [id number] [place] [id number] [place] Chloride [Moles/Vol] 102 mmol/L Normal 97-105 [facility] Comment on above: Order Comment: Speci men Type: BLOOD SPECIMENOrdering Facility: [facility] Address: [address] [place] [address] Performed By: #### 2 4321-2 ####[facility]ORATORYCLIA [id number] [place] [id number] [place] CO2 [Moles/Vol] 27 mmol/L Normal 22-30 [facility] Comment on above: Order Comment: Speci men Type: BLOOD SPECIMENOrdering Facility: [facility] Address: [address] [place] [address] Performed By: #### 2 4321-2 ####[facility] LABORATORYCLIA [id number] [place] [address] [place] Creatinine [Mass/Vol] 8.93 mg/dL High 0.73-1.22 [facility] Comment on above: Order Comment: Speci men Type: BLOOD SPECIMENOrdering Facility: [facility] Address: [address] [place] [address] Performed By: #### 2 4321-2 ####[facility]ORATORYCLIA [id number] [address] [place] ESTIMATED GLOMERULAR FILTRATION RATE 8 mL/min/1.73m??? Low >=60 [facility] Comment on above: Order Comment: Speci men Type: BLOOD SPECIMENOrdering Facility: [facility] Address: [address] [place] [address] Result Comment: Gentry mated Glomerular Filtration Rate (eGFR) is calculated using the 2020 CKD-EPI creatinine equation. This equation utilizes serum creatinine, sex, and age as parameters. The creatinine assay has traceable calibration to isotope dilution-mass spectrometry. Refer to KDIGO guidelines for clinical interpretation. In patients with unstable renal function, e.g. those with acute kidney injury, the eGFR may not accurately reflect actual GFR. Performed By: #### 2 4321-2 ####[facility]ORATORYCLIA [id number] [place] [address] [place] Glucose [Mass/Vol] 85 mg/dL Normal 74-99 [facility] Comment on above: Order Comment: Speci men Type: BLOOD SPECIMENOrdering Facility: [facility] Address: [address] [place] [address] Result Comment: The [place] Diabetes Association (ADA) provides guidance for cutoff values for fasting glucose and random glucose. The ADA defines fasting as no caloric intake for at least 8 hours. Fasting plasma glucose results between 100 to 125 mg/dL indicate increased risk for diabetes (prediabetes). Fasting plasma glucose results greater than or equal to 126 mg/dL meet the criteria for diagnosis of diabetes. In the absence of unequivocal hyperglycemia, results should be confirmed by repeat testing. In a patient with classic symptoms of hyperglycemia or hyperglycemic crisis, random plasma glucose results greater than or equal to 200 mg/dL meet the criteria for diagnosis of diabetes. Reference: Standards of Medical Care in Diabetes 2016, [place] [employer]. Diabetes Care. 2016.39(Suppl 1). Performed By: #### 2 4321-2 ####[facility] LABORATORYCLIA [id number] [place] [address] [place] Potassium [Moles/Vol] 5.0 mmol/L Normal 3.7-5.1 [facility] Comment on above: Order Comment: Speci men Type: BLOOD SPECIMENOrdering Facility: [facility] Address: [address] [place] [address] Performed By: #### 2 4321-2 ####[facility] LABORATORYCLIA [id number] [place] [address] [place] Sodium [Moles/Vol] 140 mmol/L Normal 136-144 [facility] Comment on above: Order Comment: Speci men Type: BLOOD SPECIMENOrdering Facility: [facility] Address: [address] [place] [place] [address] Performed By: #### 2 4321-2 ####[facility] LABORATORYCLIA [id number] [place] [address] [place] Urea nitrogen [Mass/Vol] 52 mg/dL High 9-24 [facility] Comment on above: Order Comment: Speci men Type: BLOOD SPECIMENOrdering Facility: [facility] Address: [address] [place] [place] [address] Performed By: #### 2 4321-2 ####[facility] LABORATORYCLIA [id number] [place] [id number] [place] ECG COMPLETEon 10-31-2022 ECG COMPLETE Ventricular Rate : 8 1 BPM Atrial Rate : 82 BPM P-R Interval : 139 ms QRS Duration : 85 ms Q-T Interval : 362 ms QTC Calculation(Bazett) : 421 ms Calculated P [place] : 55 degrees Calculated R [place] : 50 degrees Calculated T [place] : 20 degrees Sinus rhythm Normal ECG Confirmed by CHENCHO DENNEY MD ([id number]) on 11/01/2022 7:04:08 AM NAME : LAWSON DOYLE PID : [id number] : 2000 Gender : Male Race : ORD : [id number] Procedure Date : Oct 31 2022 13:16:45 Edit Date : Nov 01 2022 07:04:09 Diagnosis: Sinus rhythm Normal ECG Confirmed by CHENCHO DENNEY MD ([id number]) on 11/01/2022 7:04:08 AM Test Reason : Pre OP Location : 400 : FVEKG 214 Overread By : CHENCHO DENNEY MD Edited By : CHENCHO DENNEY MD Referred By : , Acquired by : [id number], Normal [facility] HISTORY PHYSICALon HISTORY PHYSICAL HNO ID: [id number] Author: Tatum Chowdhury APRN.DEPARTMENTAL SHIPPING CLERK, DNP Service: Cardiovascular Medicine Author Type: Nurse Practitioner Type: HANDP Filed: 10/31/2022 1:48 PM Note Text: HISTORY AND PHYSICAL EXAMINATION SERVICE DATE: 10/31/2022 SERVICE TIME: 1:15 PM PROCEDUREALIST: Surgeon(s) and Role: * Lui Cooper MD - Primary PRIMARY CARE PHYSICIAN: Ivette Manzano MD SUBJECTIVE CHIEF COMPLAINT: Complication of AV fistula, ESRD HPI: This is a 22 year old male who presents for: PERC THROMBECTOMY/INFUSION FOR THROMBOLYSIS AV FISTULA,FLUORO GUIDED,INCLUSIVE OF RAD NESHA - Right PAST MEDICAL HISTORY: PAST MEDICAL HISTORY Diagnosis Date Complication of AV dialysis fistula 06/06/2022 HTN (hypertension) PAST SURGICAL HISTORY: PAST SURGICAL HISTORY Procedure Laterality Date IR TUNNELLED DIALYSIS CATHETER TONGUE SURGERY HX FAMILY HISTORY: No family history on file. SOCIAL HISTORY: Social History Tobacco Use Smoking status: Some Days Types: Cigars Smokeless tobacco: Never Vaping Use Vaping Use: Never used Substance Use Topics Alcohol use: Yes Comment: very rarely Drug use: Never MEDICATIONS: Prior to Admission Medications amLODIPine (NORVASC) 10 mg tablet, once daily., Disp: , Rfl: RENAPLEX-D 800 mcg-12.5 mg -2,000 unit tab, Take 1 tablet by mouth once daily., Disp: , Rfl: carvedilol (COREG) 12.5 mg tablet, twice daily with meals., Disp: , Rfl: losartan (COZAAR) 100 mg tablet, once daily., Disp: , Rfl: melatonin 3 mg tablet, Take 2 tablets by mouth., Disp: , Rfl: ondansetron orally disintegrating (ZOFRAN ODT) 4 mg disintegrating tablet, , Disp: , Rfl: sevelamer carbonate (RENVELA) 800 mg tablet, once daily., Disp: , Rfl: traMADol (ULTRAM) 50 mg tablet, , Disp: , Rfl: tuberculin,purif.prot.d eriv. (TUBERSOL INTRADERM.), 0.1 mL by INTRADERMAL route., Disp: , Rfl: doxercalciferol (HECTOROL INTRAVENOUS), 1 mcg., Disp: , Rfl: ondansetron HCl (ZOFRAN ORAL), Take 4 mg by mouth as needed., Disp: , Rfl: CURRENT ALLERGIES: ALLERGIES No Known Allergies COMPLETE REVIEW OF SYSTEMS: GENERAL: No weight loss, malaise or fevers., SEE HPI HEENT: No changes in vision, no nose bleeds or other nasal problems NECK: Negative for lumps, goiter, and significant neck swelling RESPIRATORY: Negative for cough, wheezing or shortness of breath. CARDIOVASCULAR: No leg swelling claudication or palpitations GI: Negative for abdominal discomfort, blood in stools or black stools or change in bowel habits MUSCULOSKELETAL: Negative for joint pain or swelling, PSYCH: Negative for depression or sleep disturbance. HEMATOLOGY/LYMPHOLOGY: Negative for prolonged bleeding, bruising easily or swollen nodes ENDOCRINE: Is not diabetic, does not have hyperthyroidism. NEURO: No history of syncope, paralysis, seizures or tremors All other reviewed and negative other than HPI. History of Bleeding Issues: No OBJECTIVE PHYSICAL EXAM: Patient Vitals for the past 24 hrs: BP Temp Temp src Pulse Resp SpO2 Height Weight 10/31/22 1302 129/85 37.2 ?C (98.9 ?F) Temporal 90 16 99 % 177.8 cm (5' 10") 74.2 kg (163 lb 8 oz) Body mass index is 23.46 kg/m?. GENERAL: Alert and oriented x 3, no distress, cooperative SKIN: Skin color, turgor normal. No rashes or lesions. EARS: External ears normal. NECK: No jugulovenous distention, + carotid bruit, supple. CHEST: No deformities. LUNGS: Lungs clear to auscultation. No rales or wheezing. CARDIAC: Rhythm regular, normal S1 and S2; No murmurs ABDOMEN: Abdomen soft, non-tender.. No masses or organomegaly. EXTREMITIES: Extremities normal. No deformities, edema, clubbing or skin discoloration. NEURO: Gait normal. Reflexes normal and symmetric. Sensation grossly intact., Cranial nerves II-XII intact PULSES: 2+ radial 2+ dorsalis pedis 2+ posterial tibial DATA: Diagnostic tests reviewed for today's visit: Most recent EKG Most recent labs POC INR: CBC: No results for input(s): "WBC", "RBC", "HB", "HCT", "PLT", "MCV", "MCH", "MPV", "RDW" in the last 720 hours. Coags: No results for input(s): "PT", "INR", "APTT" in the last 720 hours. BMP: No results for input(s): "NA", "K", "CHLOR", "CO2", "BUN", "CREAT", "GLUC" in the last 720 hours. Assessment: Mr. Lawson Doyle is a 22 year old with h/o ESRD on HD, HTN, iron deficiency anemia, CKD stage 4. Plan: Ordered Pre-op LABS and EKG reviewed and results evaluated. The medical history was reviewed and updated. Proceed with procedure - BMP today: creatinine 8.93 and K 5.0 - EKG today: SR, HR 81 bpm I spent a total of 30 minutes on the date of the service which included preparing to see the patient, [id number] patient care, completing clinical documentation, obtaining and/or reviewing separately obtained history, performing a medically appropriate examination, counseling and educating the patient/family/caregive r, and ordering medications, tests, or procedures. SIGNATURE: (more content not included)... Normal [facility] NURSING PROGon 10-31-2022 NURSING PROG HNO ID: [id number] Author: Swetha Santo Service: Nursing Author Type: ? Type: Nursing Progress Note Filed: 10/31/2022 3:49 PM Note Text: Nursing Progress Note Topic of Note: Daily Note PATIENT NAME: Lawson Doyle Patient Location: SECOND FLOOR OPERATOR POOL/FV SECOND FLOOR OPERATOR POOL Room: SECOND FLOOR OPERATOR POOL ( INVASIVE CARDIOLOGY) 1531-Pt came back from Rbrachial AV fistulagram, coverderm dry clean intact, no s/s bleeding nor hematoma, went over discharge instructions with pt at bedside, neuros wnl, no pain,numbness nor tingling, ++bruii//thrill, right thumb cap refill wnl, right radial pulse palpable. Pt drank 2cups apple juice before IV removed and belongings returned. 1540-Put in for transport. This note was completed by: Swetha Santo [facility] NURSING PROG HNO ID: [id number] Author: Paul Peterson RN Service: Nursing Author Type: Registered Nurse Type: Nursing Progress Note Filed: 10/31/2022 1:25 PM Note Text: Nursing Progress Note Topic of Note: Daily Note PATIENT NAME: Lawson Doyle Patient Location: SECOND FLOOR OPERATOR POOL/ SECOND FLOOR OPERATOR POOL Room: SECOND FLOOR OPERATOR POOL (SECOND FLOOR OPERATOR 14) Pre op done. Consent on chart. BMP pending This note was completed by: Paul Peterson [facility] OPERATIVE NOon 10-31-2022 OPERATIVE NO HNO ID: [id number] Author: Don Patel MD Service: Vascular Surgery Author Type: Physician Type: Operative Report Filed: 11/09/2022 4:50 PM Note Text: OPERATIVE/PROCEDURE REPORT LOG ID: [id number] Surgery/Procedure Date: 10/31/2022 Incision/Procedure Start Time:2:26 PM Incision Close/Procedure End Time: 2:49 PM Surgeon(s)/Proceduralis t(s) and Account Developer(s): Surgeon(s) and Role: * Don Patel MD - Primary * Ameya Cueto MD - Resident - Assisting No Additional Staff Procedure(s): Fistulogram right upper extremity Angioplasty of Fistula axillary vein SVC with 6 mm cutting followed by 7 mm balloon Anesthesia: Procedural Sedation Operative indications: 22 year old male who presents for fistulogram due to high venous pressure. Procedure details: The patient was taken to the laborer road and laid supine on the table. After time-in and under continuous oxygen and monitoring, IV analgesia and sedation were given. Using local anesthesia, ultrasound guidance, and a micropuncture system, the upper extremity av graft was accessed antegrade. The transitional sheath was used to inject contrast to perform fistulagram with DSA runs visualizing the fistula in it's entirety as well as the central veins. Angiography showed 90% stenosis of the axillary vein. The sheath was up-sized to a 6 georgian sheath. The stenosis was ballooned with a/an 6 cutting and 7 mm balloon. There was <10% residual stenosis. Completion angiogram revealed a technically satisfactory result with significantly improved thrill throughout the entire fistula, no pulsatility. The sheath was removed and hemostasis was achieved with suture/pressure. The Patient was transferred to the recovery area in stable condition. Pre-Op/Pre-Procedure Diagnosis: dialysis access malfunction Post-Op/Post-Procedure Diagnosis: same Estimated Blood Loss: 0 ml Specimens: None Implantable Devices: none Drains: None Complications: None The primary surgeon/proceduralist performed the procedure with assistance. SIGNATURE: Tyler Patel MD PATIENT NAME: Lawson Doyle DATE: 10/31/2022 TIME: 4:34 PM PAGER/CONTACT #: [phone] [facility] Basic metabolic 2000 panelon 04-20-2022 Anion gap [Moles/Vol] 5 mmol/L Low 9 - 18 mmol/L [facility] Calcium [Mass/Vol] 9.6 mg/dL 8.5 - 10. 2 mg/dL [facility] Chloride [Moles/Vol] 101 mmol/L 97 - 10 5 mmol/L [facility] CO2 [Moles/Vol] 36 mmol/L High 22 - 30 mmol/L [facility] Creatinine [Mass/Vol] 4.58 mg/dL High 0.73 - 1.22 mg/dL [facility] Estimated Glomerular Filtration Rate 17 mL/min/1.73m Low >=60 mL/min/1.73m [facility] Glucose [Mass/Vol] 93 mg/dL 74 - 99 mg/dL [facility] Potassium [Moles/Vol] 4.6 mmol/L 3.7 - 5.1 mmol/L [facility] Sodium [Moles/Vol] 142 mmol/L 136 - 144 mmol/L [facility] Urea nitrogen [Mass/Vol] 9 mg/dL 9 - 24 mg/dL [facility] Anion gap [Moles/Vol] 5 mmol/L Low 9-18 [facility] Comment on above: Order Comment: Speci men Type: BLOOD SPECIMEN Ordering Facility: [facility] Address: [address] [place], [place] [address] Performed By: #### 2 4321-2 #### [facility] CLIA [id number] [address] [place] [address] [place] Calcium [Mass/Vol] 9.6 mg/dL Normal 8.5-10.2 [facility] Comment on above: Order Comment: Speci men Type: BLOOD SPECIMEN Ordering Facility: [facility] Address: [address] [place] [address] Performed By: #### 2 4321-2 #### [facility] CLIA [id number] [address] [place] [address] [place] Chloride [Moles/Vol] 101 mmol/L Normal 97-105 [facility] Comment on above: Order Comment: Speci men Type: BLOOD SPECIMEN Ordering Facility: [facility] Address: [address] [place] [address] Performed By: #### 2 4321-2 #### [facility] CLIA [id number] [address] [place], [place] [address] [place] CO2 [Moles/Vol] 36 mmol/L High 22-30 [facility] Comment on above: Order Comment: Speci men Type: BLOOD SPECIMEN Ordering Facility: [facility] Address: [address] [place] [address] Performed By: #### 2 4321-2 #### [facility] CLIA [id number] [address] [place], [place] [address] [place] Creatinine [Mass/Vol] 4.58 mg/dL High 0.73-1.22 [facility] Comment on above: Order Comment: Ez trinh Type: BLOOD SPECIMEN Ordering Facility: [facility] Address: [place] [id number] Performed By: #### 2 4321-2 #### [facility] CLIA [id number] [address] [place] [address] [place] ESTIMATED GLOMERULAR FILTRATION RATE 17 mL/min/1.73m??? Low >=60 [facility] Comment on above: Order Comment: Ez trinh Type: BLOOD SPECIMEN Ordering Facility: [facility] Address: [address] [place], [place] [address] Result Comment: Gentry mated Glomerular Filtration Rate (eGFR) is calculated using the 2020 CKD-EPI creatinine equation. This equation utilizes serum creatinine, sex, and age as parameters. The creatinine assay has traceable calibration to isotope dilution-mass spectrometry. Refer to KDIGO guidelines for clinical interpretation. In patients with unstable renal function, e.g. those with acute kidney injury, the eGFR may not accurately reflect actual GFR. Performed By: #### 2 4321-2 #### [facility] CLIA [id number] [address] [place] [address] [place] Glucose [Mass/Vol] 93 mg/dL Normal 74-99 [facility] Comment on above: Order Comment: Ez trinh Type: BLOOD SPECIMEN Ordering Facility: [facility] Address: [address] [place], [place] [address] Result Comment: The [place] Diabetes Association (ADA) provides guidance for cutoff values for fasting glucose and random glucose. The ADA defines fasting as no caloric intake for at least 8 hours. Fasting plasma glucose results between 100 to 125 mg/dL indicate increased risk for diabetes (prediabetes). Fasting plasma glucose results greater than or equal to 126 mg/dL meet the criteria for diagnosis of diabetes. In the absence of unequivocal hyperglycemia, results should be confirmed by repeat testing. In a patient with classic symptoms of hyperglycemia or hyperglycemic crisis, random plasma glucose results greater than or equal to 200 mg/dL meet the criteria for diagnosis of diabetes. Reference: Standards of Medical Care in Diabetes 2016, [place] [employer] Association. Diabetes Care. 2016.39(Suppl 1). Performed By: #### 2 4321-2 #### [facility] CLIA [id number] [address] [place] [address] [place] Potassium [Moles/Vol] 4.6 mmol/L Normal 3.7-5.1 [facility] Comment on above: Order Comment: Speci men Type: BLOOD SPECIMEN Ordering Facility: [facility] Address: [address] [place] [address] Performed By: #### 2 4321-2 #### [facility] CLIA [id number] [address] [place] [address] [place] Sodium [Moles/Vol] 142 mmol/L Normal 136-144 [facility] Comment on above: Order Comment: Speci men Type: BLOOD SPECIMEN Ordering Facility: [facility] Address: [address] [place] [address] Performed By: #### 2 4321-2 #### [facility] IA [id number] [address] [place] [address] [place] Urea nitrogen [Mass/Vol] 9 mg/dL Normal 9-24 [facility] Comment on above: Order Comment: Speci men Type: BLOOD SPECIMEN Ordering Facility: [facility] Address: [address] [place] [address] Performed By: #### 2 4321-2 #### [facility] IA [id number] [address] [place] [address] [place] CBC W Auto Differential pane l (Bld)on 04-20-2022 Basophils (Bld) [#/Vol] 0.04 10*3/uL Normal <0.11 [facility] Comment on above: Order Comment: Speci men Type: BLOOD SPECIMEN Ordering Facility: [facility] Address: [address] [place] [address] Performed By: #### 5 7021-8 #### [facility] CLIA [id number] [address] [place] [address] [place] Basophils/100 WBC (Bld) 0.5 % Normal [facility] Comment on above: Order Comment: Speci men Type: BLOOD SPECIMEN Ordering Facility: [facility] Address: [address] [address] Performed By: #### 5 7021-8 #### [facility] CLIA [id number] [facility] [place] [address] [place] Differential cell count method Nom (Bld) Auto Normal [facility] Comment on above: Order Comment: Speci men Type: BLOOD SPECIMEN Ordering Facility: [facility] Address: [address] [address] Performed By: #### 5 7021-8 #### [facility] CLIA [id number] [facility] [place] [address] [place] Eosinophils (Bld) [#/Vol] 0.82 10*3/uL High <0.46 [facility] Comment on above: Order Comment: Speci men Type: BLOOD SPECIMEN Ordering Facility: [facility] Address: [address] Performed By: #### 5 7021-8 #### [facility] CLIA [id number] [address] [place] [address] [place] Eosinophils/100 WBC (Bld) 11.2 % [facility] Comment on above: Order Comment: Speci men Type: BLOOD SPECIMEN Ordering Facility: [facility] Address: [address] Performed By: #### 5 7021-8 #### [facility] CLIA [id number] [address] [place] [address] [place] Erythrocyte distribution width (RBC) [Ratio] 12.7 % Normal 11.5-15.0 [facility] Comment on above: Order Comment: Speci men Type: BLOOD SPECIMEN Ordering Facility: [facility] Address: [address] Performed By: #### 5 7021-8 #### [facility] CLIA [id number] [address] [place] [address] [place] Hematocrit (Bld) [Volume fraction] 34.8 % Low 39.0-51.0 [facility] Comment on above: Order Comment: Speci men Type: BLOOD SPECIMEN Ordering Facility: [facility] Address: [address] [place] [address] Performed By: #### 5 7021-8 #### [facility] IA [id number] [address] [place] [address] [place] Hemoglobin (Bld) [Mass/Vol] 11.2 g/dL Low 13.0-17.0 [facility] Comment on above: Order Comment: Speci men Type: BLOOD SPECIMEN Ordering Facility: [facility] Address: [address] [place] [address] Performed By: #### 5 7021-8 #### [facility] IA [id number] [address] [place] [address] [place] Immature granulocytes (Bld) [#/Vol] 10*3/uL Normal <0.10 [facility] Comment on above: Order Comment: Speci men Type: BLOOD SPECIMEN Ordering Facility: [facility] Address: [address] [place] [address] Performed By: #### 5 7021-8 #### [facility] IA [id number] [address] [place] [address] [place] Immature granulocytes/100 WBC (Bld) 0.3 % Normal [facility] Comment on above: Order Comment: Speci men Type: BLOOD SPECIMEN Ordering Facility: [facility] Address: [address] [place], [place] [address] Performed By: #### 5 7021-8 #### [facility] CLIA [id number] [address] [place] [address] [place] Lymphocytes (Bld) [#/Vol] 1.98 10*3/uL Normal 1.00-4.00 [facility] Comment on above: Order Comment: Speci men Type: BLOOD SPECIMEN Ordering Facility: [facility] Address: [address] [address] Performed By: #### 5 7021-8 #### [facility] CLIA [id number] [address] [place] [address] STATES [facility] Lymphocytes/100 WBC (Bld) 26.9 % Normal [facility] Comment on above: Order Comment: Speci men Type: BLOOD SPECIMEN Ordering Facility: [facility] Address: [address] Performed By: #### 5 7021-8 #### [facility] IA [id number] [address] [place] [address] [place] MCH (RBC) [Entitic mass] 30.1 pg Normal 26.0-34.0 [facility] Comment on above: Order Comment: Speci men Type: BLOOD SPECIMEN Ordering Facility: [facility] Address: [address] Performed By: #### 5 7021-8 #### [facility] IA [id number] [address] [place] [address] [place] MCHC (RBC) [Mass/Vol] 32.2 g/dL Normal 30.5-36.0 [facility] Comment on above: Order Comment: Speci men Type: BLOOD SPECIMEN Ordering Facility: [facility] Address: [address] Performed By: #### 5 7021-8 #### [facility] CLIA [id number] [address] [place] [address] [place] MCV (RBC) [Entitic vol] 93.5 fL Normal 80.0-100.0 [facility] Comment on above: Order Comment: Speci men Type: BLOOD SPECIMEN Ordering Facility: [facility] Address: [address] [place], [place] [address] Performed By: #### 5 7021-8 #### [facility] CLIA [id number] [address] [place] [address] [place] Monocytes (Bld) [#/Vol] 0.46 10*3/uL Normal <0.87 [facility] Comment on above: Order Comment: Speci men Type: BLOOD SPECIMEN Ordering Facility: [facility] Address: [address] Performed By: #### 5 7021-8 #### [facility] CLIA [id number] [address] [place] [address] [place] Monocytes/100 WBC (Bld) 6.3 % Normal [facility] Comment on above: Order Comment: Speci men Type: BLOOD SPECIMEN Ordering Facility: [facility] Address: [address] [address] Performed By: #### 5 7021-8 #### [facility] CLIA [id number] [address] [place] [address] [place] Neutrophils (Bld) [#/Vol] 4.03 10*3/uL Normal 1.45-7.50 [facility] Comment on above: Order Comment: Speci men Type: BLOOD SPECIMEN Ordering Facility: [facility] Address: [address] Performed By: #### 5 7021-8 #### [facility] CLIA [id number] [address] [place], [place] [address] [place] Neutrophils/100 WBC (Bld) 54.8 % Normal [facility] Comment on above: Order Comment: Speci men Type: BLOOD SPECIMEN Ordering Facility: [facility] Address: [address] Performed By: #### 5 7021-8 #### [facility] CLIA [id number] [address] [place], [place] [address] [place] Nucleated RBC (Bld) [#/Vol] 10*3/uL Normal <0.01 [facility] Comment on above: Order Comment: Speci men Type: BLOOD SPECIMEN Ordering Facility: [facility] Address: [place] [address] Performed By: #### 5 7021-8 #### [facility] CLIA [id number] [address] [place] [address] [place] Nucleated RBC/100 WBC (Bld) [Ratio] 0.0 /100 WBC Normal [facility] Comment on above: Order Comment: Speci men Type: BLOOD SPECIMEN Ordering Facility: [facility] Address: [place] [address] Performed By: #### 5 7021-8 #### [facility] CLIA [id number] [address] [place], [place] [address] [place] Platelet mean volume (Bld) [Entitic vol] 9.9 fL Normal 9.0-12.7 [facility] Comment on above: Order Comment: Speci men Type: BLOOD SPECIMEN Ordering Facility: [facility] Address: [place] [address] Performed By: #### 5 7021-8 #### [facility] IA [id number] [address] [place], [place] [address] [place] Platelets (Bld) [#/Vol] 267 10*3/uL Normal 150-400 [facility] Comment on above: Order Comment: Speci men Type: BLOOD SPECIMEN Ordering Facility: [facility] Address: [address] [id number] Performed By: #### 5 7021-8 #### [facility] CLIA [id number] [address] [place], [place] [address] [place] RBC (Bld) [#/Vol] 3.72 10*6/uL Low 4.20-6.00 [facility] Comment on above: Order Comment: Speci men Type: BLOOD SPECIMEN Ordering Facility: [facility] Address: [address] [place] [address] Performed By: #### 5 7021-8 #### [facility] CLIA [id number] [address] [place] [address] WBC (Bld) [#/Vol] 7.35 10*3/uL Normal 3.70-11.00 [facility] Comment on above: Order Comment: Speci men Type: BLOOD SPECIMEN Ordering Facility: [facility] Address: [place] [address] Performed By: #### 5 7021-8 #### [facility] CLIA [id number] [address] [place] [address] [facility] Basophils (Bld) [#/Vol] 0.04 10*3/uL <0.11 k/uL [facility] Basophils/100 WBC (Bld) 0.5 % [facility] Differential cell count method Nom (Bld) Auto [facility] Eosinophils (Bld) [#/Vol] 0.82 10*3/uL High <0.46 k/uL [facility] Eosinophils/100 WBC (Bld) 11.2 % [facility] Erythrocyte distribution width (RBC) [Ratio] 12.7 % 11.5 - 15.0 % [facility] Hematocrit (Bld) [Volume fraction] 34.8 % Low 39.0 - 51.0 % [facility] Hemoglobin (Bld) [Mass/Vol] 11.2 g/dL Low 13.0 - 17.0 g/dL [facility] Immature granulocytes (Bld) [#/Vol] <0.10 k/uL [facility] Immature granulocytes/100 WBC (Bld) 0.3 % [facility] Lymphocytes (Bld) [#/Vol] 1.98 10*3/uL 1.00 - 4.00 k/uL [facility] Lymphocytes/100 WBC (Bld) 26.9 % [facility] MCH (RBC) [Entitic mass] 30.1 pg 26.0 - 34.0 pg [facility] MCHC (RBC) [Mass/Vol] 32.2 g/dL 30.5 - 36.0 g/dL [facility] MCV (RBC) [Entitic vol] 93.5 fL 80.0 - 100.0 fL [facility] Monocytes (Bld) [#/Vol] 0.46 10*3/uL <0.87 k/uL [facility] Monocytes/100 WBC (Bld) 6.3 % [facility] Neutrophils (Bld) [#/Vol] 4.03 10*3/uL 1.45 - 7.50 k/uL [facility] Neutrophils/100 WBC (Bld) 54.8 % [facility] Nucleated RBC (Bld) [#/Vol] <0.01 k/uL [facility] Nucleated RBC/100 WBC (Bld) [Ratio] 0.0 /100 WBC [facility] Platelet mean volume (Bld) [Entitic vol] 9.9 fL 9.0 - 12.7 fL [facility] Platelets (Bld) [#/Vol] 267 10*3/uL 150 - 400 k/uL [facility] RBC (Bld) [#/Vol] 3.72 10*6/uL Low 4.20 - 6.0 0 m/uL [facility] WBC (Bld) [#/Vol] 7.35 10*3/uL 3.70 - 11. 00 k/uL [facility] Clinical Event Note-Hemodial ysis- Treatment Delayon 03-21-2022 Clinical Event Note-Hemodialysis- Treatment Delay Clinical Event: Clinical Event Note: TopicHemodialysis- Treatment Delay Details HD treatment delayed d/t patient having chest pains. Sunshine Gray at 0830AM on 03-21-22 and was given the "OK" to run patient treatment tomorrow if chest pain still is an issue. According to patient, he doesn't want treatment today d/t his pain. TASHIA Mendoza/LeeannaRN Electronic Signatures: Miley Oconnor (TASHIA) (Signed 21-Mar-2022 12:03) Authored: Clinical Event Note Last Updated: 21-Mar-2022 12:03 by Miley Oconnor (TASHIA) Normal [facility] D-DIMER, VTE EXCLUSIONon D-DIMER, VTE EXCLUSION 773 ng/mL FEU Abnormal < or = 500 [facility] Comment on above: Result Comment: The VTE Exclusion D-Dimer assay is reported in ng/mL Fibrinogen Equivalent Units (FEU). Per manufacturers instructions for use, a value of less than 500 ng/mL (FEU) may help to exclude DVT or PE in outpatients when the assay is used with a clinical pretest probability assessment. (AEMR must utilize and document eCalc Wells Score Deep Vein Thrombosis Risk for DVT exclusion only; Emergency Department should utilize Guidelines for Emergency Department Use of the VTE Exclusion D-Dimer and Clinical Pretest probability assessment model for DVT or PE exclusion.) Performed By: #### [facility] #### [address] [id number] Daily Progress Note-General Internal Medicineon 03-21-2022 Daily Progress Note-General Internal Medicine Service: General Internal Medicine History of Present Illness: History Present Illness: Admission Reason: Intractable back pain, vomiting HPI: 1/ -Last night developed severe substernal chest pain, has had similar episodes in the past [employer] but this was much more severe. He describes it as sharp, stabbing, and worse with a deep breath. May have been helped some with Toradol but he is not sure. No change with nitroglycerin. No calf pain. Still has the pain although it is not as bad as last night-states last night was very severe. -No nausea or vomiting, no diarrhea. -He is afebrile, satting 98% on room air. -Blood pressures are up and improved with nitroglycerin last night -Chest is clear to auscultation. He does have some chest wall tenderness over the costochondral junctions, but says this is a different type of pain -Cardiac exam is a regular rhythm -EKG is normal. -D-dimer elevated at 773 -Will check CTA to rule out PE, although he is getting heparin with dialysis. Discussed with him also the possibility of pleurisy. 1/2 -Doing much better as far as his chest wall pain. Not needing pain medications near as much. Did have a bowel movement yesterday, states it was normal. Not having significant nausea, no vomiting. -He is afebrile-no temperatures since 2 days ago, vital signs stable. Blood pressures improving with dialysis. -Had dialysis today with 1 L removed, previous dialysis removed 900 cc. -Patient looks comfortable, sitting up in bed in NAD. -Chest is clear to auscultation -Cardiac exam is a regular rhythm -Blood cultures remain negative -Chemistry panel shows normal electrolytes. BUN 31 with a creatinine of 6.74 prior to dialysis. Phosphorus 4.1. -Discussed with social media strategist-working on getting outpatient HD set up, cannot be done until tomorrow due to the holiday. -Discussed with Dr. Grant[facility] arrangements have been made. 03/19/2022 -Feeling better today, less pain, he can now move his head. Only use Dilaudid early this morning, with the Phenergan before it he did not have any vomiting. -Has not had a bowel movement since he came into the hospital, but feels like he may need to have one now. Declining a laxative, he is on Princess-Colace at bedtime which was started due to the narcotics. -The pain around his HD catheter has decreased significantly, pain in the lower right back still present but not as bad. -Denies shortness of breath. Encouraged him to increase his activity. -He is afebrile, blood pressures are fairly well controlled. Satting 96% on room air. -Looks better today, not complaining of pain or nausea -He was -1275 cc yesterday for a total of -5.4 L this admission. Uncertain how much was removed at dialysis yesterday. -Chest is clear to auscultation -Cardiac exam is a regular rhythm -Blood cultures remain negative. -Procalcitonin minimally elevated at 0.23. -CBC with a WBC of 4.6, H/H stable at 8.7/26.1. Platelet count normalized at 156 K. -Chemistry panel with a blood sugar of 101. Electrolytes are normal. BUN 31 with a creatinine down to 5.61 after dialysis yesterday. Phosphorus 4.3 with an albumin of 3.4. -CT of the chest, abdomen, pelvis with contrast-no evidence of abscess, mild perinephric stranding. Slight amount of air around catheter insertion site as expected, no evidence of hematoma. Stool bolus in the rectum. 03/18 -Neck is very sore from when he had that hemodialysis catheter placed yesterday. Dilaudid has helped some. Was nauseated earlier today, but not vomiting. No more fevers. His right flank/low back pain is a little bit better, but he is mainly complaining of pain which is still rather severe in his neck. -When I saw the patient last night he was having severe neck pain, unable to turn his head. Morphine was changed to Dilaudid, he last used it last night. -He is now afebrile, T-max last night was 99.3 F / 37.4 C. -Presently being dialyzed in the room. Most recent blood pressure improved, down to 142/92. Had been elevated this morning. -Chest is clear to auscultation -Cardiac exam is a regular rhythm -He is still very sore near the site of his hemodialysis catheter. Still has some tenderness in the right flank but it is not as severe. -I spoke with radiology this morning, reviewed his renal ultrasound from 02/19 which showed some nonspecific perinephritic fluid adjacent to the upper pole of his right kidney, compared it with his CT scan from 03/04. He did not think there was any abnormality in the area on the CT scan, but recommends CT with contrast due to his fevers and flank pain. Per Dr. Grant, okay to have contrast now that he is on dialysis. Discussed with the patient. -Blood cultures remain negative thus far. -CBC with a WBC down to 3.4, H/H stable at 8.5/25.7. Platelet count stable at 140 9K. ESR was elevated at 43, serum iron 43 with a TIBC (more content not included)... Normal [facility] Daily Progress Note-Nephrolo gyon 03-21-2022 Daily Progress Note-Nephrology Service: Nephrology Subjective Data: LAWSON DOYLE is a 22 year old Male who is Hospital Day # 6. pt had cp this am. just went for ct with contrast agreeable to hd today. Objective Data: Objective Information: T PRBPMAPSpO2 [id number]% Date/Time03/21 5:241/3 7:571/3 8:421/3 8:421/3 7:57 Range(36C - 37.1C ) (81 - 98 ) (138 - 186 )/ (84 - 108 ) (107 - 143 ) (93% - 98% ) Highest temp of 37.1 C was recorded at 03/20 13:07 Pain reported at 03/21 8:35: 7 = Severe Physical Exam by System: Constitutional: awake/alert/oriented x3, no distress, alert and cooperative Head/Neck: Neck supple, no apparent injury, No JVD, trachea midline, no bruits Respiratory/Thorax: Bilateral rhonchi Cardiovascular: Regular, rate and rhythm, no murmurs, 2+ equal pulses of the extremities, normal S 1and S 2 Gastrointestinal: Nondistended, soft, non-tender, no rebound tenderness or guarding, no masses palpable, no organomegaly, +BS, no bruits Musculoskeletal: ROM intact Extremities: normal extremities, no cyanosis edema, contusions or wounds, no clubbing Neurological: alert and oriented x3 Psychological: Appropriate mood and behavior Skin: Warm and dry, no lesions, no rashes Medication: Medications: ALTERNATIVE MEDICINES: 1. Melatonin: 10 mg Oral Daily 1800 BIOLOGICALS: 1. Epoetin Trey (Non-ESRD) Injectable: 90327 unit(s) SubCutaneous Weekly CARDIOVASCULAR AGENTS: 1. Losartan: 100 mg Oral Daily 2. Nitroglycerin SubLingual: 0.4 mg SubLingual Every 5 Minutes PRN 3. Carvedilol: 12.5 mg Oral 2 Times a Day 4. amLODIPine (NORVASC): 5 mg Oral Daily CENTRAL NERVOUS SYSTEM AGENTS: 1. Acetaminophen: 650 mg Oral Every 4 Hours PRN 2. HYDROmorphone Injectable: 1 mg IntraVenous Push Every 4 Hours PRN 3. Morphine Injectable: 4 mg IntraVenous Push Every 4 Hours PRN 4. oxyCODONE 5 mg - Acetaminophen 325 m tablet(s) Oral Every 4 Hours PRN 5. Ondansetron Injectable: 4 mg IntraVenous Push Every 4 Hours PRN 6. Promethazine IV Piggy Back: 25 mg IntraVenous Piggyback Every 6 Hours PRN COAGULATION MODIFIERS: 1. Heparin 1,000 unit/ mL DIALYSIS CATHETER LOAD: 2400 unit(s) IntraVenous Flush Once 2. Heparin 1,000 unit/ mL DIALYSIS CATHETER LOAD: 2400 unit(s) IntraVenous Flush Once GASTROINTESTINAL AGENTS: 1. Magnesium Hydroxide -Al Hydrox -Simethicone Oral Liquid: 30 mL Oral Every 6 Hours PRN 2. Magnesium Hydroxide Oral Liquid CONCENTRATE: 10 mL Oral Every 24 Hours PRN 3. Docusate 50 mg - Senna 8.6 m tablet(s) Oral At Bedtime 4. Pantoprazole: 40 mg Oral Daily NUTRITIONAL PRODUCTS: 1. Multivitamin Renal: 1 capsule(s) Oral Daily Recent Lab Results: Results: Coagulation: null PT / / -------< INR < PTT\\ \\ Radiology Results: Results: Impression: 1. Question mild gastric wall thickening. Correlate clinically for possible gastritis. 2. Small focal nodular area of consolidation in the right lower lobe likely inflammatory. Signed by Kirsty Oliveira MD CT Abdomen and Pelvis without Contrast [Mar 04 2022 9:35AM] Impression: 1. Trace amount nonspecific perinephric fluid adjacent to the upper pole of the right kidney. 2. No hydronephrosis is evident. 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 Readmitted with nausea vomiting and not feeling well. This very well may be uremic symptoms. Initially plan was to try to put off dialysis get an outpatient fistula and prepare him for renal replacement therapy however with his readmission with possible uremic symptoms will need to start dialysis on this admission. 1) CKD stage 5 with symptoms -discussed dialysis in detail. Consent signed. got permcath and started hd on 03/18 Send hepatitis panel. Please set up outpatient dialysis at [facility] which would be closest facility to where he lives. 3rd hd today and then ok for d/c once chest pain issues resolved 2) hypertension - d/c clonidine and use losartan instead 3) anemia -we will give 20,000 units of Retacrit. Ferritin was slightly over 200 earlier this month 4) hyperphosphatemia -levels are normal Added renal vitamin Electronic Signatures: Darryn Grant) (Signed 21-Mar-2022 12:27) Authored: Service, Subjective Data, Objective Data, Assessment and Plan, Note Completion Last Updated: 21-Mar-2022 12:27 by Darryn Grant) Normal [facility] Order Reconciliationon 03-21 Order Reconciliation Page 1 Discharge Reconciliation Document Reconciliation Type: Discharge requested on behalf of Kareen Agee (Physician) done by Kareen Agee) Discharge - Reconciliation: 21-Mar-2022 13:39 by: Kareen Agee) Discharge - Reset to Incomplete: 21-Mar-2022 17:29 by: Kareen Agee) Discharge - Reconciliation: 21-Mar-2022 17:31 by: Kareen Agee) Home Medications EnteredHOME MEDICATIONS AT DISCHARGE DateReconciliation Comment/ Additional Information amLODIPine 5 mg oral tablet 1 tab(s) orally once a day 21-Feb-2022 13:27 amLODIPine 5 mg oral tablet 2 tab(s) orally once a day - NEW DOSE 21-Mar-2022 13:32 Discontinued; Copy/Discontinue amLODIPine 5 mg oral tablet is continued and modified carvedilol 12.5 mg oral tablet 1 tab(s) orally 2 times a day 21-Feb-2022 13:27 carvedilol 12.5 mg oral tablet 1 tab(s) orally 2 times a day 21-Feb-2022 13:27 carvedilol 12.5 mg oral tablet is continued as carvedilol 12.5 mg oral tablet cloNIDine 0.1 mg oral tablet 1 tab(s) orally 2 times a day 21-Feb-2022 13:27 cloNIDine 0.1 mg oral tablet 1 tab(s) orally 2 times a day 21-Feb-2022 13:27 cloNIDine 0.1 mg oral tablet is continued as cloNIDine 0.1 mg oral tablet melatonin 3 mg oral tablet 2 tab(s) orally once (at bedtime) -Insomnia 21-Feb-2022 16:00 melatonin 3 mg oral tablet 2 tab(s) orally once (at bedtime) -Insomnia 21-Feb-2022 16:00 melatonin 3 mg oral tablet is continued as melatonin 3 mg oral tablet Protonix 40 mg oral delayed release tablet 1 tab(s) orally once a day x 15 days 04-Mar-2022 12:49 Discontinued; Discontinue from ORM Protonix 40 mg oral delayed release tablet is not required Current OrdersDateHOME MEDICATIONS AT DISCHARGE DateReconciliation Comment/ Additional Information Acetaminophen Tablet (TYLENOL)DOSE = 650 mg Oral Every 4 Hours, PRN Pain - Mild (1-3) 16-Mar-2022 15:01 Acetaminophen is not required amLODIPine (NORVASC) TabletDOSE = 10 mg Oral Daily 21-Mar-2022 13:31 amLODIPine (NORVASC) is not required amLODIPine (NORVASC) TabletDOSE = 5 mg Oral Daily 16-Mar-2022 14:55 amLODIPine (NORVASC) is not required Carvedilol Tablet (COREG)DOSE = 12.5 mg Oral 2 Times a Day 16-Mar-2022 14:55 Carvedilol is not required Docusate 50 mg - Senna 8.6 mg Tablet (SENOKOT S)DOSE = 2 tablet(s) Oral At Bedtime 16-Mar-2022 17:33 Docusate 50 mg - Senna 8.6 mg is not required Epoetin Trey (Non-ESRD) Injectable DOSE = 20,000 unit(s) SubCutaneous WeeklyNotes from Pharmacy: [facility] 17-Mar-2022 10:21 Epoetin Trey (Non-ESRD) Injectable is not required Heparin 1,000 unit/ mL DIALYSIS CATHETER LOAD Dose = 2,400 unit(s) IntraVenous Flush OnceVia Arterial Port of Hemodialysis CatheterNURSING: VOLUME of Heparin Dose MUST Equal Catheter VOLUMEClinician Notes: Once during dialysis treatment. Dose= 10 20-Mar-2022 17:23 Heparin 1,000 unit/ mL DIALYSIS CATHETER LOAD is not required Heparin 1,000 unit/ mL DIALYSIS CATHETER LOAD Dose = 2,400 unit(s) IntraVenous Flush OnceVia Venous Port of Hemodialysis CatheterNURSING: VOLUME of Heparin Dose MUST Equal Catheter VOLUMEClinician Notes: Once during dialysis treatment. Dose= 1000 20-Mar-2022 17:23 Heparin 1,000 unit/ mL DIALYSIS CATHETER LOAD is not required HYDROmorphone Injectable (DILAUDID)DOSE = 1 mg IntraVenous Push Every 4 Hours, PRN Pain - Mod (4-6) 17-Mar-2022 18:12 HYDROmorphone Injectable is not required Losartan Tablet (COZAAR)DOSE = 100 mg Oral Daily 18-Mar-2022 13:59 losartan 100 mg oral tablet 1 tab(s) orally once a day 21-Mar-2022 13:31 Prescription is created for losartan 100 mg oral tablet Magnesium Hydroxide -Al Hydrox -Simethicone Oral Liquid (MAALOX)DOSE = 30 mL Oral Every 6 Hours, PRN Dyspepsia 16-Mar-2022 15:01 Magnesium Hydroxide -Al Hydrox -Simethicone Oral Liquid is not required Magnesium Hydroxide Oral Liquid CONCENTRATE (MILK OF MAGNESIA)DOSE = 10 mL Oral Every 24 Hours, PRN Constipation 16-Mar-2022 15:01 Magnesium Hydroxide Oral Liquid CONCENTRATE is not required Melatonin TabletDOSE = 10 mg Oral Daily 1800 16-Mar-2022 14:55 Melatonin is not required Morphine Injectable DOSE = 4 mg IntraVenous Push Every 4 Hours, PRN Pain - Severe (7-10) 16-Mar-2022 17:33 Morphine Injectable is not required Multivitamin Renal Capsule (NEPHROCAPS)DOSE = 1 capsule(s) Oral Daily 17-Mar-2022 10:16 Multiple Vitamins oral capsule 1 cap(s) orally once a day 21-Mar-2022 13:33 Prescription is created for Multiple Vitamins oral capsule Nitroglycerin SubLingual Tablet (NITROSTAT)DOSE = 0.4 mg SubLingual Every 5 Minutes, PRN Angina 21-Mar-2022 08:22 Nitroglycerin SubLingual is not required Ondansetron Injectable (ZOFRAN)DOSE = 4 mg IntraVenous Push Every 4 Hours, PRN Nausea and/or Vomiting 16-Mar-2022 15:01 Ondansetron Injectable is not required oxyCODONE 5 mg - Acetaminophen 325 mg Tablet (PERCOCET)DOSE = 1 tablet(s) Oral Every 4 Hours, PRN Pain - Mod (4-6) 1 18-Mar-2022 12:24 oxyCODONE 5 mg - Acetaminophen 325 mg is n (more content not included)... Normal [facility] Daily Progress Note-General Internal Medicineon 03-20-2022 Daily Progress Note-General Internal Medicine Service: General Internal Medicine History of Present Illness: History Present Illness: Admission Reason: Intractable back pain, vomiting HPI: 1/2 -Doing much better as far as his chest wall pain. Not needing pain medications near as much. Did have a bowel movement yesterday, states it was normal. Not having significant nausea, no vomiting. -He is afebrile-no temperatures since 2 days ago, vital signs stable. Blood pressures improving with dialysis. -Had dialysis today with 1 L removed, previous dialysis removed 900 cc. -Patient looks comfortable, sitting up in bed in NAD. -Chest is clear to auscultation -Cardiac exam is a regular rhythm -Blood cultures remain negative -Chemistry panel shows normal electrolytes. BUN 31 with a creatinine of 6.74 prior to dialysis. Phosphorus 4.1. -Discussed with social media strategist-working on getting outpatient HD set up, cannot be done until tomorrow due to the holiday. -Discussed with Dr. Grant[facility] arrangements have been made. 03/19/2022 -Feeling better today, less pain, he can now move his head. Only use Dilaudid early this morning, with the Phenergan before it he did not have any vomiting. -Has not had a bowel movement since he came into the hospital, but feels like he may need to have one now. Declining a laxative, he is on Princess-Colace at bedtime which was started due to the narcotics. -The pain around his HD catheter has decreased significantly, pain in the lower right back still present but not as bad. -Denies shortness of breath. Encouraged him to increase his activity. -He is afebrile, blood pressures are fairly well controlled. Satting 96% on room air. -Looks better today, not complaining of pain or nausea -He was -1275 cc yesterday for a total of -5.4 L this admission. Uncertain how much was removed at dialysis yesterday. -Chest is clear to auscultation -Cardiac exam is a regular rhythm -Blood cultures remain negative. -Procalcitonin minimally elevated at 0.23. -CBC with a WBC of 4.6, H/H stable at 8.7/26.1. Platelet count normalized at 156 K. -Chemistry panel with a blood sugar of 101. Electrolytes are normal. BUN 31 with a creatinine down to 5.61 after dialysis yesterday. Phosphorus 4.3 with an albumin of 3.4. -CT of the chest, abdomen, pelvis with contrast-no evidence of abscess, mild perinephric stranding. Slight amount of air around catheter insertion site as expected, no evidence of hematoma. Stool bolus in the rectum. 03/18 -Neck is very sore from when he had that hemodialysis catheter placed yesterday. Dilaudid has helped some. Was nauseated earlier today, but not vomiting. No more fevers. His right flank/low back pain is a little bit better, but he is mainly complaining of pain which is still rather severe in his neck. -When I saw the patient last night he was having severe neck pain, unable to turn his head. Morphine was changed to Dilaudid, he last used it last night. -He is now afebrile, T-max last night was 99.3 F / 37.4 C. -Presently being dialyzed in the room. Most recent blood pressure improved, down to 142/92. Had been elevated this morning. -Chest is clear to auscultation -Cardiac exam is a regular rhythm -He is still very sore near the site of his hemodialysis catheter. Still has some tenderness in the right flank but it is not as severe. -I spoke with radiology this morning, reviewed his renal ultrasound from 02/19 which showed some nonspecific perinephritic fluid adjacent to the upper pole of his right kidney, compared it with his CT scan from 03/04. He did not think there was any abnormality in the area on the CT scan, but recommends CT with contrast due to his fevers and flank pain. Per Dr. Grant, okay to have contrast now that he is on dialysis. Discussed with the patient. -Blood cultures remain negative thus far. -CBC with a WBC down to 3.4, H/H stable at 8.5/25.7. Platelet count stable at 140 9K. ESR was elevated at 43, serum iron 43 with a TIBC of 255 for a low sat at 17. Will give IV iron 1 dose. -Chemistry panel with a blood sugar of 113, sodium 139, potassium 5.2, chloride 106, bicarb 25. -BUN 58 with a creatinine of 7.22. Phosphorus is 4.8, calcium 8.6. 03/17 -Nausea is a bit better, has not been throwing up. Finally able to eat a little bit. No chest pains or shortness of breath. -Back is still very sore-did not try the Lidoderm patch "I do not like sticky stuff". Flexeril may be helping-he has not needed morphine yet today. After talking with him, he is willing to try the patch. Discussed with his nurse. -Understands dialysis, and is not upset about it. -Patient was febrile earlier this morning up to 101.6 F / 38.7 C. Will check blood cultures., vital signs are otherwise stable. Satting 98% on room air. -Chest is clear to auscultation. -Cardiac exam is a regular rhythm -He is still very tender to palpation over h (more content not included)... Normal [facility] Daily Progress Note-Nephrolo gyon 03-20-2022 Daily Progress Note-Nephrology Service: Nephrology Subjective Data: LAWSON DOYLE is a 22 year old Male who is Hospital Day # 5. pt feeling better had 2nd hd today about 1 liter removed each tx. Objective Data: Objective Information: T PRBPMAPSpO2 [id number] 3% Date/Time03/20 13: 13: 12:5212 13:0703/20 13: 13:07 Range(36C - 37.8C ) (81 - 101 ) (18 - 18 ) (138 - 181 )/ (84 - 107 ) (107 - 124 ) (91% - 97% ) Highest temp of 37.8 C was recorded at 03/19 19:15 Pain reported at 03/20 17:12: 6 = Moderate Physical Exam by System: Constitutional: awake/alert/oriented x3, no distress, alert and cooperative Head/Neck: Neck supple, no apparent injury, No JVD, trachea midline, no bruits Respiratory/Thorax: Bilateral rhonchi Cardiovascular: Regular, rate and rhythm, no murmurs, 2+ equal pulses of the extremities, normal S 1and S 2 Gastrointestinal: Nondistended, soft, non-tender, no rebound tenderness or guarding, no masses palpable, no organomegaly, +BS, no bruits Musculoskeletal: ROM intact Extremities: normal extremities, no cyanosis edema, contusions or wounds, no clubbing Neurological: alert and oriented x3 Psychological: Appropriate mood and behavior Skin: Warm and dry, no lesions, no rashes Medication: Medications: ALTERNATIVE MEDICINES: 1. Melatonin: 10 mg Oral Daily 1800 BIOLOGICALS: 1. Epoetin Trey (Non-ESRD) Injectable: 15516 unit(s) SubCutaneous Weekly CARDIOVASCULAR AGENTS: 1. Losartan: 100 mg Oral Daily 2. Carvedilol: 12.5 mg Oral 2 Times a Day 3. amLODIPine (NORVASC): 5 mg Oral Daily CENTRAL NERVOUS SYSTEM AGENTS: 1. Acetaminophen: 650 mg Oral Every 4 Hours PRN 2. HYDROmorphone Injectable: 1 mg IntraVenous Push Every 4 Hours PRN 3. Morphine Injectable: 4 mg IntraVenous Push Every 4 Hours PRN 4. oxyCODONE 5 mg - Acetaminophen 325 m tablet(s) Oral Every 4 Hours PRN 5. Ondansetron Injectable: 4 mg IntraVenous Push Every 4 Hours PRN 6. Promethazine IV Piggy Back: 25 mg IntraVenous Piggyback Every 6 Hours PRN GASTROINTESTINAL AGENTS: 1. Magnesium Hydroxide -Al Hydrox -Simethicone Oral Liquid: 30 mL Oral Every 6 Hours PRN 2. Magnesium Hydroxide Oral Liquid CONCENTRATE: 10 mL Oral Every 24 Hours PRN 3. Docusate 50 mg - Senna 8.6 m tablet(s) Oral At Bedtime 4. Pantoprazole: 40 mg Oral Daily NUTRITIONAL PRODUCTS: 1. Multivitamin Renal: 1 capsule(s) Oral Daily TOPICAL AGENTS: 1. Lidocaine 4% TransDermal: 1 patch TransDermal Every 24 Hours Recent Lab Results: Results: RFP: 03/20/2022 06:46 NA+ Cl- BUN / 141 104 31 H / --------- Glucose ---- 95 K+ HCO3- Creat \\ 4.3 30 6.74 H \\ Calcium : 8.4 LAnion Gap : 11 Albumin : 3.5 Phos : 4.1 Radiology Results: Results: Impression: 1. Question mild gastric wall thickening. Correlate clinically for possible gastritis. 2. Small focal nodular area of consolidation in the right lower lobe likely inflammatory. Signed by Kirsty Oliveira MD CT Abdomen and Pelvis without Contrast [Mar 04 2022 9:35AM] Impression: 1. Trace amount nonspecific perinephric fluid adjacent to the upper pole of the right kidney. 2. No hydronephrosis is evident. 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 Readmitted with nausea vomiting and not feeling well. This very well may be uremic symptoms. Initially plan was to try to put off dialysis get an outpatient fistula and prepare him for renal replacement therapy however with his readmission with possible uremic symptoms will need to start dialysis on this admission. 1) CKD stage 5 with symptoms -discussed dialysis in detail. Consent signed. got permcath and started hd on 03/18 Send hepatitis panel. Please set up outpatient dialysis at [facility] which would be closest facility to where he lives. 3rd hd tomorrow and then ok for d/c 2) hypertension - d/c clonidine and use losartan instead 3) anemia -we will give 20,000 units of Retacrit. Ferritin was slightly over 200 earlier this month 4) hyperphosphatemia -levels are normal Add renal vitamin Electronic Signatures: Darryn Grant) (Signed 20-Mar-2022 17:22) Authored: Service, Subjective Data, Objective Data, Assessment and Plan, Note Completion Last Updated: 20-Mar-2022 17:22 by Darryn Grant) Normal [facility] Discharge Planning [id number] 03-20-2022 Discharge Planning Note2 Discharge Planning: Anticipated Discharge [id number] Discharge Planning 03/20/22 1125 Social Work Note SW received referral to arrange for outpt HD treatments, pt is new HD. Nephrology note indicates that HD center of choice is [facility] on [facility]. SW attempted to meet with pt to confirm information and discuss treatment referral process, however, pt currently off the floor for dialysis treatment. SW started referral to [facility], will confirm information with pt and update referral as needed. will submit referral once information is confirmed with pt. MIKE Mejia, JOAN 03/20/22 1420 Social Work Note SW met with pt at bedside to confirm information for outpt dialysis referral. Pt confirms preferred dialysis center is [facility] on [facility]. Pt states preferred time is morning, no preference as to which days. Pt states he will transport himself to and from dialysis. SW completed referral and submitted to [facility]. Will update pt with chair time once received. MIKE Mejia, DISTRIBUTION CLERK Assessment: Discharge Planning Assessment [id number] Discharge Documentation: Code StatusCode Status order at time of discharge: Full Code Electronic Signatures: Michell Rmaos (INTERMODAL DISPATCHER) (Signed 20-Mar-2022 10:39) Authored: Discharge Planning, Assessment, Discharge Documentation Candice Bianchi) (Signed 20-Mar-2022 14:24) Authored: Discharge Planning Last Updated: 20-Mar-2022 14:24 by Candice Bianchi (BUSINESS CONSULTANT) Normal [facility] RENAL FUNCTION PANELon 03-20 Albumin [Mass/Vol] 3.5 g/dL Normal 3.4 - 5.0 [facility] Comment on above: Performed By: #### U ANKUSH #### [address] [id number] Anion gap [Moles/Vol] 11 mmol/L Normal 10 - 20 [facility] Comment on above: Performed By: #### U ANKUSH #### [address] [id number] Calcium [Mass/Vol] 8.4 mg/dL Low 8.6 - 10.3 [facility] Comment on above: Performed By: #### U ANKUSH #### [address] [id number] Chloride [Moles/Vol] 104 mmol/L Normal 98 - 107 [facility] Comment on above: Performed By: #### U ANKUSH #### [address] [id number] Creatinine [Mass/Vol] 6.74 mg/dL High 0.50 - 1.30 [facility] Comment on above: Performed By: #### U ANKUSH #### [address] [id number] GFR/1.73 sq M.predicted among non-blacks MDRD (S/P/Bld) [Vol rate/Area] 11 mL/min/{1.73_m2} Abnormal >90 [facility] Comment on above: Result Comment: CALC ULATIONS OF ESTIMATED GFR ARE PERFORMED USING THE 2020 CKD-EPI STUDY REFIT EQUATION WITHOUT THE RACE VARIABLE FOR THE IDMS-TRACEABLE CREATININE METHODS. https://jasn.asnjournals.org/content/early//ASN.686754 5783 Performed By: #### U ANKUSH #### [address] [id number] Glucose [Mass/Vol] 95 mg/dL Normal 74 - 99 [facility] Comment on above: Performed By: #### U ANKUSH #### [address] [id number] HCO3 (Bld) [Moles/Vol] 30 mmol/L Normal 21 - 32 [facility] Comment on above: Performed By: #### U ANKUSH #### [address] [id number] Phosphate [Mass/Vol] 4.1 mg/dL Normal 2.5 - 4.9 [facility] Comment on above: Result Comment: The performance characteristics of phosphorus testing in heparinized plasma have been validated by the individual laboratory site where testing is performed. Testing on heparinized plasma is not approved by the FDA; however, such approval is not necessary. Performed By: #### U ANKUSH #### [address] [id number] Potassium [Moles/Vol] 4.3 mmol/L Normal 3.5 - 5.3 [facility] Comment on above: Performed By: #### U ANKUSH #### [address] [id number] Sodium [Moles/Vol] 141 mmol/L Normal 136 - 145 [facility] Comment on above: Performed By: #### U ANKUSH #### [address] [id number] Urea nitrogen [Mass/Vol] 31 mg/dL High 6 - 23 [facility] Comment on above: Performed By: #### U ANKUSH #### [address] [id number] CBCon 03-19-2022 Erythrocyte distribution width (RBC) [Ratio] 12.3 % Normal 11.5 - 14.5 [facility] Comment on above: Performed By: #### P TINR #### [address] [id number] Hematocrit (Bld) [Volume fraction] 26.1 % Low 41.0 - 52.0 [facility] Comment on above: Performed By: #### P TINR #### [address] [id number] Hemoglobin (Bld) [Mass/Vol] 8.7 g/dL Low 13.5 - 17.5 [facility] Comment on above: Performed By: #### P TINR #### [address] [id number] MCHC (RBC) [Mass/Vol] 33.3 g/dL Normal 32.0 - 36.0 [facility] Comment on above: Performed By: #### P TINR #### [address] [id number] MCV (RBC) [Entitic vol] 93 fL Normal 80 - 100 [facility] Comment on above: Performed By: #### P TINR #### [address] [id number] Platelets (Bld) [#/Vol] 156 10*3/uL Normal 150 - 450 [facility] Comment on above: Performed By: #### P TINR #### [address] [id number] RBC 2.82 x10E12/L Low 4.50 - 5.90 [facility] Comment on above: Performed By: #### P TINR #### [address] [id number] WBC (Bld) [#/Vol] 4.6 10*3/uL Normal 4.4 - 11.3 [facility] Comment on above: Performed By: #### P TINR #### [address] [id number] Daily Progress Note-General Internal Medicineon 03-19-2022 Daily Progress Note-General Internal Medicine Service: General Internal Medicine History of Present Illness: History Present Illness: Admission Reason: Intractable back pain, vomiting HPI: 03/19/2022 -Feeling better today, less pain, he can now move his head. Only use Dilaudid early this morning, with the Phenergan before it he did not have any vomiting. -Has not had a bowel movement since he came into the hospital, but feels like he may need to have one now. Declining a laxative, he is on Princess-Colace at bedtime which was started due to the narcotics. -The pain around his HD catheter has decreased significantly, pain in the lower right back still present but not as bad. -Denies shortness of breath. Encouraged him to increase his activity. -He is afebrile, blood pressures are fairly well controlled. Satting 96% on room air. -Looks better today, not complaining of pain or nausea -He was -1275 cc yesterday for a total of -5.4 L this admission. Uncertain how much was removed at dialysis yesterday. -Chest is clear to auscultation -Cardiac exam is a regular rhythm -Blood cultures remain negative. -Procalcitonin minimally elevated at 0.23. -CBC with a WBC of 4.6, H/H stable at 8.7/26.1. Platelet count normalized at 156 K. -Chemistry panel with a blood sugar of 101. Electrolytes are normal. BUN 31 with a creatinine down to 5.61 after dialysis yesterday. Phosphorus 4.3 with an albumin of 3.4. -CT of the chest, abdomen, pelvis with contrast-no evidence of abscess, mild perinephric stranding. Slight amount of air around catheter insertion site as expected, no evidence of hematoma. Stool bolus in the rectum. 03/18 -Neck is very sore from when he had that hemodialysis catheter placed yesterday. Dilaudid has helped some. Was nauseated earlier today, but not vomiting. No more fevers. His right flank/low back pain is a little bit better, but he is mainly complaining of pain which is still rather severe in his neck. -When I saw the patient last night he was having severe neck pain, unable to turn his head. Morphine was changed to Dilaudid, he last used it last night. -He is now afebrile, T-max last night was 99.3 F / 37.4 C. -Presently being dialyzed in the room. Most recent blood pressure improved, down to 142/92. Had been elevated this morning. -Chest is clear to auscultation -Cardiac exam is a regular rhythm -He is still very sore near the site of his hemodialysis catheter. Still has some tenderness in the right flank but it is not as severe. -I spoke with radiology this morning, reviewed his renal ultrasound from 02/19 which showed some nonspecific perinephritic fluid adjacent to the upper pole of his right kidney, compared it with his CT scan from 03/04. He did not think there was any abnormality in the area on the CT scan, but recommends CT with contrast due to his fevers and flank pain. Per Dr. Grant, okay to have contrast now that he is on dialysis. Discussed with the patient. -Blood cultures remain negative thus far. -CBC with a WBC down to 3.4, H/H stable at 8.5/25.7. Platelet count stable at 140 9K. ESR was elevated at 43, serum iron 43 with a TIBC of 255 for a low sat at 17. Will give IV iron 1 dose. -Chemistry panel with a blood sugar of 113, sodium 139, potassium 5.2, chloride 106, bicarb 25. -BUN 58 with a creatinine of 7.22. Phosphorus is 4.8, calcium 8.6. 03/17 -Nausea is a bit better, has not been throwing up. Finally able to eat a little bit. No chest pains or shortness of breath. -Back is still very sore-did not try the Lidoderm patch "I do not like sticky stuff". Flexeril may be helping-he has not needed morphine yet today. After talking with him, he is willing to try the patch. Discussed with his nurse. -Understands dialysis, and is not upset about it. -Patient was febrile earlier this morning up to 101.6 F / 38.7 C. Will check blood cultures., vital signs are otherwise stable. Satting 98% on room air. -Chest is clear to auscultation. -Cardiac exam is a regular rhythm -He is still very tender to palpation over his right low rib area posteriorly-denies any history of trauma -CBC with a WBC of 4.5. H/H is 8.0/24.7 after IVF. Platelet count down at 135 K. Will continue to monitor. -Chemistry panel shows his electrolytes are normal. BUN and creatinine 62 with a creatinine up to 7.54. Will continue IVF. Nephrology consult is pending -Phosphorus 5.1, albumin 3.4. -Discussed with Dr. Juanita-patient will be starting dialysis. *These notes are being done using [employer]erv voice recognition technology and may include unintended errors with respect to translation of words, typographical errors or grammar errors which may not have been identified prior to finalization of the chart note. Subjective Data: LAWSON DOYLE is a 22 year old Male who is Hospital Day # 4. See [place] for today above. Objective Data: Objective Information: T PRBPMAPSpO2 [id number] (more content not included)... Normal [facility] Daily Progress Note-Nephrolo gyon 03-19-2022 Daily Progress Note-Nephrology Service: Nephrology Subjective Data: LAWSON DOYLE is a 22 year old Male who is Hospital Day # 4. Patient had dialysis yesterday. Does feel little bit better. Nausea is improved. Still has some back pain. Rates it at 8 out of 10. Some slight sweats. His cultures are negative. No more fevers. Objective Data: Objective Information: T PRBPMAPSpO2 [id number] 6% Date/Time03/19 12:5203/19 12:5203/19 12:5203/19 12: 12: 12:52 Range(36.1C - 37.4C ) (66 - 87 ) (14 - 22 ) (132 - 166 )/ (88 - 104 ) (105 - 129 ) (91% - 98% ) Highest temp of 37.4 C was recorded at 03/19 12:52 Pain reported at 03/19 8:24: sleeping Physical Exam by System: Constitutional: awake/alert/oriented x3, no distress, alert and cooperative Head/Neck: Neck supple, no apparent injury, No JVD, trachea midline, no bruits Respiratory/Thorax: Bilateral rhonchi Cardiovascular: Regular, rate and rhythm, no murmurs, 2+ equal pulses of the extremities, normal S 1and S 2 Gastrointestinal: Nondistended, soft, non-tender, no rebound tenderness or guarding, no masses palpable, no organomegaly, +BS, no bruits Musculoskeletal: ROM intact Extremities: normal extremities, no cyanosis edema, contusions or wounds, no clubbing Neurological: alert and oriented x3 Psychological: Appropriate mood and behavior Skin: Warm and dry, no lesions, no rashes Medication: Medications: ALTERNATIVE MEDICINES: 1. Melatonin: 10 mg Oral Daily 1800 BIOLOGICALS: 1. Epoetin Trey (Non-ESRD) Injectable: 64299 unit(s) SubCutaneous Weekly CARDIOVASCULAR AGENTS: 1. Losartan: 100 mg Oral Daily 2. Carvedilol: 12.5 mg Oral 2 Times a Day 3. amLODIPine (NORVASC): 5 mg Oral Daily CENTRAL NERVOUS SYSTEM AGENTS: 1. Acetaminophen: 650 mg Oral Every 4 Hours PRN 2. HYDROmorphone Injectable: 1 mg IntraVenous Push Every 4 Hours PRN 3. HYDROmorphone Injectable: 2 mg IntraVenous Push Every 4 Hours PRN 4. Morphine Injectable: 4 mg IntraVenous Push Every 4 Hours PRN 5. oxyCODONE 5 mg - Acetaminophen 325 m tablet(s) Oral Every 4 Hours PRN 6. Ondansetron Injectable: 4 mg IntraVenous Push Every 4 Hours PRN 7. Promethazine IV Piggy Back: 25 mg IntraVenous Piggyback Every 6 Hours PRN GASTROINTESTINAL AGENTS: 1. Magnesium Hydroxide -Al Hydrox -Simethicone Oral Liquid: 30 mL Oral Every 6 Hours PRN 2. Magnesium Hydroxide Oral Liquid CONCENTRATE: 10 mL Oral Every 24 Hours PRN 3. Docusate 50 mg - Senna 8.6 m tablet(s) Oral At Bedtime 4. Pantoprazole: 40 mg Oral Daily NUTRITIONAL PRODUCTS: 1. Multivitamin Renal: 1 capsule(s) Oral Daily TOPICAL AGENTS: 1. Lidocaine 4% TransDermal: 1 patch TransDermal Every 24 Hours Recent Lab Results: Results: CBC: 03/19/2022 06:54 \\ Hgb / \\ 8.7 L / WBC Plt 4.6 156 / Hct \\ / 26.1 L \\ RBC: 2.82 L MCV: 93 RFP: 03/19/2022 06:54 NA+ Cl- BUN / 139 104 31 H / --------- Glucose ---- 101 H K+ HCO3- Creat \\ 4.5 29 5.61 H \\ Calcium : 8.3 LAnion Gap : 11 Albumin : 3.4 Phos : 4.3 I have reviewed these laboratory results: Renal Function Panel 19-Mar-2022 06:54:00 ResultValue Glucose, Serum 101 H NA 139 K 4.5 CL 104 Bicarbonate, Serum 29 Anion Gap, Serum 11 BUN 31 H CREAT 5.61 H GFR Male 14 A Calcium, Serum 8.3 L Phosphorus, Serum 4.3 ALB 3.4 Radiology Results: Results: Impression: 1. Question mild gastric wall thickening. Correlate clinically for possible gastritis. 2. Small focal nodular area of consolidation in the right lower lobe likely inflammatory. Signed by Kirsty Oliveira MD CT Abdomen and Pelvis without Contrast [Mar 04 2022 9:35AM] Impression: 1. Trace amount nonspecific perinephric fluid adjacent to the upper pole of the right kidney. 2. No hydronephrosis is evident. 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 Readmitted with nausea vomiting and not feeling well. This very well may be uremic symptoms. Initially plan was to try to put off dialysis get an outpatient fistula and prepare him for renal replacement therapy however with his readmission with possible uremic symptoms will need to start dialysis on this admission. 1) CKD stage 5 with symptoms -discussed dialysis in detail. Consent signed. got permcath and started hd on 03/18 Send hepatitis panel. Please set up outpatient dialysis at [facility] which would be closest facility to where he lives. next hd on sunday 2) hypertension - d/c clonidine and use losartan instead 3) anemia -we will give 20,000 units of Retacrit. Ferritin was slightly over 200 earlier this month 4) hyperphosphatemia -levels are normal Add renal vitamin Electronic (more content not included)... Normal [facility] Discharge [id number] Discharge Profile2 Discharge Orders: Anticipated Discharge Date: Anticipated Discharge [id number] DNAR: Code Status at Discharge: Full Code Activity: May shower. Keep catheter dry/protected. May not return to school/work Instructions: May drive. Diet: DietRenal Additional Orders: Additional Instructions -Your blood pressure medications have been changed. Your amlodipine was increased to 10 mg daily (2 of the 5 mg tablets). Losartan 100 mg was also added. -Outpatient dialysis is set up. Dr. Grant will follow up with you at dialysis. Hospital Course (Home Care/Gold Form): Hospital Course: Hospital Course: include significant abnormal lab values Patient is a 22-year-old white male with a known history of Alport's disease with CKD stage V. He was initially seen in the ER 03/04 with nausea, vomiting, and diarrhea. Work-up then showed his BUN of 66 with a creatinine of 7.33 Bilateral renal ultrasound showed a trace amount of nonspecific perinephric fluid in the upper pole of the right kidney but no hydronephrosis. CT of the abdomen and pelvis showed mild gastric wall thickening with a small focal area of consolidation in the right lower lobe consistent with inflammation. He was scheduled to see Dr. Grant and discharged on Protonix and Zofran. 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 He had recurrent nausea and protracted vomiting, associated with lightheadedness. He presented to the ER where his WBC was 6.8. H/H was stable at 8.8/27.2. Chemistry panel showed a, bicarb of 18, BUN was 68, creatinine of 7.25. Urinalysis showed large protein, large blood, and positive glucose. He was treated with morphine, IV fluids, and Zofran and admitted due to failure of outpatient treatment. Please refer to admission H&P for further details. Patient was treated with pain medications, nephrology was consulted. The morning after admission he spiked temperatures to 101 F, no source was obvious and he was not started on antibiotics. Blood cultures were drawn which remained negative. He had a tunneled hemodialysis catheter placed on 03/17 and was started on dialysis 03/18. He had severe pain at that upper right chest and neck after placement of the dialysis catheter; due to the disproportionate pain and his flank pain with fevers, he had CT of the chest, abdomen and pelvis done with contrast which showed no evidence of hematoma or abscess. His pain improved with treatment with medications, as did his nausea/vomiting. His hypertension medications were adjusted. He also developed some episodes of pleuritic chest pain, EKG was normal. D-dimer was elevated so he had a CTA PE done which was negative. He is being discharged to start outpatient hemodialysis. He should follow-up with his PCP, Dr. Ivette Manzano in 1 week. 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 Final diagnoses: 1. End-stage renal disease-dialysis started 2. Nausea and vomiting 3. Right flank pain 4. Pleuritic chest pain 5. Alports syndrome 6. Hypertension Provider FINAL REVIEW of Orders: Final Review: Final Review of Medication Reconciliation and Orders Completedby Physician Reviewing ProviderKareen Agee MD at 21-Mar-2022 14:11:28 Appointments: Follow-Up Appointment 01: Physician/Dept/ServiceD mikhail Manzano - Primary Care Reason for ReferralHospital follow-up Scheduled Date/[id number] 11:[id number] [place], [place] [address] [address] Phone [phone] CommentsPlease wear a mask when entering the building. Please arrive 10-15 minutes early, bring photo ID, current list of medications & dosages, insurance cards and any copay that may apply. If unable to keep this appointment, please call to cancel at least 24 hrs prior to appointment. Follow-Up Appointment 02: Physician/Dept/Luis Grant Reason for ReferralHospital follow-up Electronic Signatures: Anjel Stover (PT ACC REP) (Signed 21-Mar-2022 16:18) Authored: Discharge Orders, Appointments Kareen Agee) (Signed 21-Mar-2022 14:11) Authored: Discharge Orders, Hospital Course (Home Care/Gold Form), Provider FINAL REVIEW of Orders, Appointments, Gold Form - State Archivist Summary Last Updated: 21-Mar-2022 16:18 by Anjel Stover (PT ACC REP) Normal [facility] HEPATITIS B SURFACE AGon HEP.B SURFACE AG Non-Reactive Normal NONREACTIVE [facility] Comment on above: Result Comment: Biot in interference may cause falsely decreased results. Patients taking a Biotin dose of up to 5 mg/day should refrain from taking Biotin for 24 hours before sample collection. Providers may contact their local laboratory for further information. Performed By: #### U ANKUSH #### [address] [id number] Lab Specimen Source Normal [facility] Comment on above: Performed By: #### U ANKUSH #### [address] [id number] RENAL FUNCTION PANELon 03-19 Albumin [Mass/Vol] 3.4 g/dL Normal 3.4 - 5.0 [facility] Comment on above: Performed By: #### M G #### [address] [id number] Anion gap [Moles/Vol] 11 mmol/L Normal 10 - 20 [facility] Comment on above: Performed By: #### M G #### [address] [id number] Calcium [Mass/Vol] 8.3 mg/dL Low 8.6 - 10.3 [facility] Comment on above: Performed By: #### M G #### [address] [id number] Chloride [Moles/Vol] 104 mmol/L Normal 98 - 107 [facility] Comment on above: Performed By: #### M G #### [address] [id number] Creatinine [Mass/Vol] 5.61 mg/dL High 0.50 - 1.30 [facility] Comment on above: Performed By: #### M G #### [address] [id number] GFR/1.73 sq M.predicted among non-blacks MDRD (S/P/Bld) [Vol rate/Area] 14 mL/min/{1.73_m2} Abnormal >90 [facility] Comment on above: Result Comment: CALC ULATIONS OF ESTIMATED GFR ARE PERFORMED USING THE 2020 CKD-EPI STUDY REFIT EQUATION WITHOUT THE RACE VARIABLE FOR THE IDMS-TRACEABLE CREATININE METHODS. https://jasn.asnjournals.org/content//ASN.313149 8234 Performed By: #### M G #### [address] [id number] Glucose [Mass/Vol] 101 mg/dL High 74 - 99 [facility] Comment on above: Performed By: #### M G #### [address] [id number] HCO3 (Bld) [Moles/Vol] 29 mmol/L Normal 21 - 32 [facility] Comment on above: Performed By: #### M G #### [address] [id number] Phosphate [Mass/Vol] 4.3 mg/dL Normal 2.5 - 4.9 [facility] Comment on above: Result Comment: The performance characteristics of phosphorus testing in heparinized plasma have been validated by the individual laboratory site where testing is performed. Testing on heparinized plasma is not approved by the FDA; however, such approval is not necessary. Performed By: #### M G #### [address] [id number] Potassium [Moles/Vol] 4.5 mmol/L Normal 3.5 - 5.3 [facility] Comment on above: Performed By: #### M G #### [address] [id number] Sodium [Moles/Vol] 139 mmol/L Normal 136 - 145 [facility] Comment on above: Performed By: #### M G #### [address] [id number] Urea nitrogen [Mass/Vol] 31 mg/dL High 6 - 23 [facility] Comment on above: Performed By: #### M G #### [address] [id number] C-REACTIVE PROTEINon 12-31-2 022 C-REACTIVE PROTEIN 0.84 mg/dL Normal [facility] Comment on above: Result Comment: REF VALUE < 1.00 Performed By: #### T PS2 #### [address] [id number] CBCon 03-18-2022 Erythrocyte distribution width (RBC) [Ratio] 12.4 % Normal 11.5 - 14.5 [facility] Comment on above: Performed By: #### T PS2 #### [address] [id number] Hematocrit (Bld) [Volume fraction] 25.7 % Low 41.0 - 52.0 [facility] Comment on above: Performed By: #### T PS2 #### [address] [id number] Hemoglobin (Bld) [Mass/Vol] 8.5 g/dL Low 13.5 - 17.5 [facility] Comment on above: Performed By: #### T PS2 #### [address] [id number] MCHC (RBC) [Mass/Vol] 33.1 g/dL Normal 32.0 - 36.0 [facility] Comment on above: Performed By: #### T PS2 #### [address] [id number] MCV (RBC) [Entitic vol] 93 fL Normal 80 - 100 [facility] Comment on above: Performed By: #### T PS2 #### [address] [id number] Platelets (Bld) [#/Vol] 149 10*3/uL Low 150 - 450 [facility] Comment on above: Performed By: #### T PS2 #### [address] [id number] RBC 2.77 x10E12/L Low 4.50 - 5.90 [facility] Comment on above: Performed By: #### T PS2 #### [address] [id number] WBC (Bld) [#/Vol] 3.4 10*3/uL Low 4.4 - 11.3 [facility] Comment on above: Performed By: #### T PS2 #### [facility] [address] [place], [place] [id number] CT CHEST ABDOMEN PELVIS W IV CONTRASTon 03-18-2022 CT CHEST ABDOMEN PELVIS W IV CONTRAST Patient Name: LAWSON DOYLE STUDY: CT CHEST ABDOMEN PELVIS W IV CONTRAST; 03/18/2022 5:17 pm INDICATION: Severe right flank pain, prior ultrasound with possible perinephric fluid. Now with fevers up to 101 degrees, unknown source. Okay for IV contrast per nephrology (will be dialyzed) . COMPARISON: CT abdomen and pelvis 03/04/2022. ACCESSION NUMBER(S): [id number] ORDERING CLINICIAN: KAREEN AGEE TECHNIQUE: Axial CT of the chest, abdomen, and pelvis was performed. Coronal and sagittal reconstructions were performed. 75 milliliter OMNIPAQUE 350 contrast material were administered intravenously without immediate complication. FINDINGS: There is motion artifact. There is streak artifact from the patient's arms along the body. CHEST: LUNG/PLEURA/LARGE AIRWAYS: The trachea and the central airways are patent. There are trace bilateral pleural effusions with airspace opacities at the bases of the bilateral lower lobes. No pneumothorax. VESSELS: No thoracic aortic aneurysm. 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 HEART: The heart is mildly enlarged. No significant pericardial effusion. MEDIASTINUM AND JOCELYNN: No pathologically enlarged lymph nodes at the mediastinum, hilar or axillary regions. CHEST WALL AND LOWER NECK: The visualized thyroid gland is unremarkable. There is a right IJ central catheter with tip at the right atrium. There is a small amount of subcutaneous emphysema at the soft tissues of right supraclavicular region adjacent to the central catheter. ABDOMEN: LIVER: No focal lesion is identified. BILE DUCTS: No significant dilation. GALLBLADDER: Present. PANCREAS: Evaluation degraded by motion artifact. There is homogeneous enhancement of the pancreas. There is mild peripancreatic soft tissue stranding. SPLEEN: Within normal limits. ADRENAL GLANDS: Unremarkable. KIDNEYS AND URETERS: No perinephric fluid collection. There is mild bilateral perinephric stranding. No hydronephrosis or hydroureter. PELVIS BLADDER: Partially distended. REPRODUCTIVE ORGANS: No pelvic mass. BOWEL: No dilated bowel loops or focal inflammatory changes. Stool ball at the rectum. The appendix is normal. VESSELS: No abdominal aortic aneurysm. PERITONEUM/RETROPERITON EUM/LYMPH NODES: No free fluid or free air. No retroperitoneal hemorrhage. Interval development of mild retroperitoneal adenopathy. An aortocaval lymph node is measuring 10 mm in short axis. There is mild haziness at the mesenteric root with mildly prominent mesenteric lymph nodes measuring up to 7 mm in short axis. BONE AND SOFT TISSUE: No acute osseous findings. There is a small fat containing umbilical hernia. IMPRESSION: CHEST: 1. Trace bilateral pleural effusions with airspace opacities at the bases of the bilateral lower lobes, may be secondary to atelectasis or pneumonia. 2. Mild cardiomegaly. 3. Small amount of subcutaneous emphysema at the right supraclavicular region adjacent to the right IJ central catheter. 4. Right-sided aortic arch with aberrant left subclavian artery. ABDOMEN-PELVIS: 1. No perinephric fluid collection. Mild bilateral perinephric stranding, nonspecific. Please correlate with laboratory values/urinalysis to exclude superimposed acute pyelonephritis. 2. Interval development of mild retroperitoneal adenopathy. 3. Mild haziness at the mesenteric root with mildly prominent mesenteric lymph nodes, may be seen with mesenteric panniculitis. 4. Mild peripancreatic soft tissue stranding, may be secondary to motion artifact. Please correlate with lipase level to exclude superimposed acute pancreatitis. 5. Stool ball at the rectum. Please correlate for constipation/fecal impaction. Electronically signed by: DO Sushma EAST [facility] Daily Progress Note-General Internal Medicineon 03-18-2022 Daily Progress Note-General Internal Medicine Service: General Internal Medicine History of Present Illness: History Present Illness: Admission Reason: Intractable back pain, vomiting HPI: 03/18 -Neck is very sore from when he had that hemodialysis catheter placed yesterday. Dilaudid has helped some. Was nauseated earlier today, but not vomiting. No more fevers. His right flank/low back pain is a little bit better, but he is mainly complaining of pain which is still rather severe in his neck. -When I saw the patient last night he was having severe neck pain, unable to turn his head. Morphine was changed to Dilaudid, he last used it last night. -He is now afebrile, T-max last night was 99.3 F / 37.4 C. -Presently being dialyzed in the room. Most recent blood pressure improved, down to 142/92. Had been elevated this morning. -Chest is clear to auscultation -Cardiac exam is a regular rhythm -He is still very sore near the site of his hemodialysis catheter. Still has some tenderness in the right flank but it is not as severe. -I spoke with radiology this morning, reviewed his renal ultrasound from 02/19 which showed some nonspecific perinephritic fluid adjacent to the upper pole of his right kidney, compared it with his CT scan from 03/04. He did not think there was any abnormality in the area on the CT scan, but recommends CT with contrast due to his fevers and flank pain. Per vitor Donovan to have contrast now that he is on dialysis. Discussed with the patient. -Blood cultures remain negative thus far. -CBC with a WBC down to 3.4, H/H stable at 8.5/25.7. Platelet count stable at 140 9K. ESR was elevated at 43, serum iron 43 with a TIBC of 255 for a low sat at 17. Will give IV iron 1 dose. -Chemistry panel with a blood sugar of 113, sodium 139, potassium 5.2, chloride 106, bicarb 25. -BUN 58 with a creatinine of 7.22. Phosphorus is 4.8, calcium 8.6. 03/17 -Nausea is a bit better, has not been throwing up. Finally able to eat a little bit. No chest pains or shortness of breath. -Back is still very sore-did not try the Lidoderm patch "I do not like sticky stuff". Flexeril may be helping-he has not needed morphine yet today. After talking with him, he is willing to try the patch. Discussed with his nurse. -Understands dialysis, and is not upset about it. -Patient was febrile earlier this morning up to 101.6 F / 38.7 C. Will check blood cultures., vital signs are otherwise stable. Satting 98% on room air. -Chest is clear to auscultation. -Cardiac exam is a regular rhythm -He is still very tender to palpation over his right low rib area posteriorly-denies any history of trauma -CBC with a WBC of 4.5. H/H is 8.0/24.7 after IVF. Platelet count down at 135 K. Will continue to monitor. -Chemistry panel shows his electrolytes are normal. BUN and creatinine 62 with a creatinine up to 7.54. Will continue IVF. Nephrology consult is pending -Phosphorus 5.1, albumin 3.4. -Discussed with Dr. Grant-patient will be starting dialysis. *These notes are being done using [employer] voice recognition technology and may include unintended errors with respect to translation of words, typographical errors or grammar errors which may not have been identified prior to finalization of the chart note. Subjective Data: LAWSON DOYLE is a 22 year old Male who is Hospital Day # 3. See [place] for today above. Objective Data: Objective Information: T PRBPMAPSpO2 [id number] 5% Date/Time03/18 10: 11: 10: 11: 8: 8:05 Range(36.1C - 38.7C ) (63 - 92 ) (14 - 22 ) (132 - 166 )/ (70 - 104 ) (97 - 129 ) (92% - 98% ) Highest temp of 38.7 C was recorded at 03/17 10:20 Pain reported at 03/18 10:10: 8 = Severe; catheter insertion site Patient time >35 minutes, including direct patient care, discussion and review of films with radiologist, discussions with patient's nurse and Dr. Grant. Physical Exam Narrative: Physical Exam: Physical exam: -General appearance: Well-developed, well-nourished young white male sitting up in bed, complaining of pain in his right neck/tunneled catheter site as well as nausea. Presently being dialyzed. -Vital signs: As above -HEENT: No icterus -Neck: No JVD -Chest: Lungs are clear to auscultation. Tunneled catheter in the right upper chest. No erythema or drainage. Less tenderness to palpation over his right low back/flank area. -Cardiac: Regular rhythm -Abdomen: Bowel sounds active. -Extremities: No edema -Skin: No skin rash -Neurologic: Patient is alert and oriented x3. -Behavior/Emotional: Appropriate, cooperative Medication: Medications: Continuous Medications --------- 1. Lactated Ringers Infusion: 1000 mL IntraVenous Scheduled Medications --------- 1. amLODIPine (NORVASC): 5 mg Oral Daily 2. Carvedilol: 12.5 mg Oral 2 Times a Day 3. cloNIDin (more content not included)... Normal [facility] Daily Progress Note-Nephrolo benjamin 03-18-2022 Daily Progress Note-Nephrology Service: Nephrology Subjective Data: LAWSON DOYLE is a 22 year old Male who is Hospital Day # 3. pt seen on hd had fever yesterday was flu/ covid neg. cultures drawn getting hd now. Objective Data: Objective Information: T PRBPMAPSpO2 [id number]% Date/Time03/18 13: 13: 13: 13: 8: 13:08 Range(36.1C - 38.7C ) (63 - 92 ) (14 - 22 ) (132 - 166 )/ (70 - 104 ) (97 - 129 ) (92% - 98% ) Highest temp of 38.7 C was recorded at 03/17 10:20 Pain reported at 03/18 13:08: 6 = Moderate Physical Exam by System: Constitutional: awake/alert/oriented x3, no distress, alert and cooperative Head/Neck: Neck supple, no apparent injury, No JVD, trachea midline, no bruits Respiratory/Thorax: Bilateral rhonchi Cardiovascular: Regular, rate and rhythm, no murmurs, 2+ equal pulses of the extremities, normal S 1and S 2 Gastrointestinal: Nondistended, soft, non-tender, no rebound tenderness or guarding, no masses palpable, no organomegaly, +BS, no bruits Musculoskeletal: ROM intact Extremities: normal extremities, no cyanosis edema, contusions or wounds, no clubbing Neurological: alert and oriented x3 Psychological: Appropriate mood and behavior Skin: Warm and dry, no lesions, no rashes Medication: Medications: ALTERNATIVE MEDICINES: 1. Melatonin: 10 mg Oral Daily 1800 BIOLOGICALS: 1. Epoetin Trey (Non-ESRD) Injectable: 09673 unit(s) SubCutaneous Weekly CARDIOVASCULAR AGENTS: 1. cloNIDine (CATAPRES): 0.1 mg Oral 2 Times a Day 2. Carvedilol: 12.5 mg Oral 2 Times a Day 3. amLODIPine (NORVASC): 5 mg Oral Daily CENTRAL NERVOUS SYSTEM AGENTS: 1. Acetaminophen: 650 mg Oral Every 4 Hours PRN 2. HYDROmorphone Injectable: 1 mg IntraVenous Push Every 4 Hours PRN 3. HYDROmorphone Injectable: 2 mg IntraVenous Push Every 4 Hours PRN 4. Morphine Injectable: 4 mg IntraVenous Push Every 4 Hours PRN 5. oxyCODONE 5 mg - Acetaminophen 325 m tablet(s) Oral Every 4 Hours PRN 6. Ondansetron Injectable: 4 mg IntraVenous Push Every 4 Hours PRN 7. Promethazine IV Piggy Back: 25 mg IntraVenous Piggyback Every 6 Hours PRN GASTROINTESTINAL AGENTS: 1. Magnesium Hydroxide -Al Hydrox -Simethicone Oral Liquid: 30 mL Oral Every 6 Hours PRN 2. Magnesium Hydroxide Oral Liquid CONCENTRATE: 10 mL Oral Every 24 Hours PRN 3. Docusate 50 mg - Senna 8.6 m tablet(s) Oral At Bedtime 4. Pantoprazole: 40 mg Oral Daily NUTRITIONAL PRODUCTS: 1. Lactated Ringers Infusion: 1000 mL IntraVenous 2. Iron Sucrose IV Piggy Back: 300 mg IntraVenous Piggyback Once 3. Multivitamin Renal: 1 capsule(s) Oral Daily RADIOLOGIC AGENTS: 1. Iohexol (Omnipaque 350-Radiology Contrast): 119.25 mL IntraVenous Push Once TOPICAL AGENTS: 1. Lidocaine 4% TransDermal: 1 patch TransDermal Every 24 Hours Recent Lab Results: Results: CBC: 03/18/2022 07:12 \\ Hgb / \\ 8.5 L / WBC Plt 3.4 L 149 L / Hct \\ / 25.7 L \\ RBC: 2.77 L MCV: 93 RFP: 03/18/2022 07:12 NA+ Cl- BUN / 139 106 58 H / --------- Glucose ---- 113 H K+ HCO3- Creat \\ 5.2 25 7.22 H \\ Calcium : 8.6Anion Gap : 13 Albumin : 3.8 Phos : 4.8 Radiology Results: Results: Impression: 1. Question mild gastric wall thickening. Correlate clinically for possible gastritis. 2. Small focal nodular area of consolidation in the right lower lobe likely inflammatory. Signed by Kirsty Oliveira MD CT Abdomen and Pelvis without Contrast [Mar 04 2022 9:35AM] Impression: 1. Trace amount nonspecific perinephric fluid adjacent to the upper pole of the right kidney. 2. No hydronephrosis is evident. 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 Readmitted with nausea vomiting and not feeling well. This very well may be uremic symptoms. Initially plan was to try to put off dialysis get an outpatient fistula and prepare him for renal replacement therapy however with his readmission with possible uremic symptoms will need to start dialysis on this admission. 1) CKD stage 5 with symptoms -discussed dialysis in detail. Consent signed. got permcath and started hd on 03/18 Send hepatitis panel. Please set up outpatient dialysis at [facility] which would be closest facility to where he lives. next hd on sunday 2) hypertension - d/c clonidine and use losartan instead 3) anemia -we will give 20,000 units of Retacrit. Ferritin was slightly over 200 earlier this month 4) hyperphosphatemia -check phosphorus level Add renal vitamin ok for iv contrast Electronic Signatures: Darryn Grant) (Signed 18-Mar-2022 13:58) Authored: Service, Subjective Data, Objective Data, (more content not included)... Normal [facility] GLUCOSE-POCTon 03-18-2022 Glucose [Mass/Vol] 132 mg/dL High 74 - 99 [facility] Comment on above: Performed By: #### G APC1 #### [address] [id number] IRON + TIBCon 03-18-2022 % SATURATION 17 % Low 25 - 45 [facility] Comment on above: Performed By: #### P TINR #### [facility] [address], [place] [id number] TIBC 255 ug/dL Normal 240 - 445 [facility] Comment on above: Performed By: #### P TINR #### [facility] [address], [place] [id number] Iron [Mass/Vol] 43 ug/dL Normal 35 - 150 [facility] Comment on above: Performed By: #### P TINR #### [facility] [address], [place] [id number] PROCALCITONINon 03-18-2022 PROCALCITONIN 0.23 ng/mL Abnormal <=0.07 [facility] Comment on above: Result Comment: Proc alcitonin (PCT) results measured serially can aid in decision-making for antibiotic discontinuation in patients with suspected or confirmed sepsis in conjunction with additional clinical information. Antibiotic discontinuation may be considered with a change in PCT of >80% from the peak result or when PCT falls below 0.50 ng/mL. . Procalcitonin results should not be used in isolation but should be interpreted in conjunction with additional clinical and laboratory findings. Procalcitonin results should not be used to guide the initiation of antibiotic therapy. . Falsely low PCT values in the presence of bacterial infection may occur in early infection, with atypical pathogens, localized infections, and subacute infectious endocarditis. . Falsely elevated results outside of severe bacterial infection/sepsis may be seen in patients with renal failure or insufficiency, severe trauma or larson, recent major abdominal/cardiac surgery, acute multi-organ failure, rarely in patients with medullary thyroid carcinoma and rare neuroendocrine tumors, and non-specific interfering antibodies (heterophile antibodies, rheumatoid factor, human anti-mouse antibodies (HAMA), etc). . Performance of the PCT test in pediatric patients (<18yo), women, immunocompromised patients, and patients on immunomodulatory medications has not been evaluated. Performed By: #### P TINR #### [address] [id number] RENAL FUNCTION PANELon 03-18 Albumin [Mass/Vol] 3.8 g/dL Normal 3.4 - 5.0 [facility] Comment on above: Performed By: #### U ANKUSH #### [address] [id number] Anion gap [Moles/Vol] 13 mmol/L Normal 10 - 20 [facility] Comment on above: Performed By: #### U ANKUSH #### [address] [id number] Calcium [Mass/Vol] 8.6 mg/dL Normal 8.6 - 10.3 [facility] Comment on above: Performed By: #### U ANKUSH #### [address] [id number] Chloride [Moles/Vol] 106 mmol/L Normal 98 - 107 [facility] Comment on above: Performed By: #### U ANKUSH #### [address] [id number] Creatinine [Mass/Vol] 7.22 mg/dL High 0.50 - 1.30 [facility] Comment on above: Performed By: #### U ANKUSH #### [address] [id number] GFR/1.73 sq M.predicted among non-blacks MDRD (S/P/Bld) [Vol rate/Area] 10 mL/min/{1.73_m2} Abnormal >90 [facility] Comment on above: Result Comment: CALC ULATIONS OF ESTIMATED GFR ARE PERFORMED USING THE 2020 CKD-EPI STUDY REFIT EQUATION WITHOUT THE RACE VARIABLE FOR THE IDMS-TRACEABLE CREATININE METHODS. https://jasn.asnjournals.org/content///ASN.082800 2726 Performed By: #### U ANKUSH #### [address] [id number] Glucose [Mass/Vol] 113 mg/dL High 74 - 99 [facility] Comment on above: Performed By: #### U ANKUSH #### [address] [id number] HCO3 (Bld) [Moles/Vol] 25 mmol/L Normal 21 - 32 [facility] Comment on above: Performed By: #### U ANKUSH #### [address] [id number] Phosphate [Mass/Vol] 4.8 mg/dL Normal 2.5 - 4.9 [facility] Comment on above: Result Comment: The performance characteristics of phosphorus testing in heparinized plasma have been validated by the individual laboratory site where testing is performed. Testing on heparinized plasma is not approved by the FDA; however, such approval is not necessary. Performed By: #### U ANKUSH #### [address] [id number] Potassium [Moles/Vol] 5.2 mmol/L Normal 3.5 - 5.3 [facility] Comment on above: Performed By: #### U ANKUSH #### [address] [id number] Sodium [Moles/Vol] 139 mmol/L Normal 136 - 145 [facility] Comment on above: Performed By: #### U ANKUSH #### [address] [id number] Urea nitrogen [Mass/Vol] 58 mg/dL High 6 - 23 [facility] Comment on above: Performed By: #### U ANKUSH #### [address] [id number] SEDIMENTATION RATE, ERYTHROC YTEon 03-18-2022 SEDIMENTATION RATE, ERYTHROCYTE 43 mm/h High 0 - 15 [facility] Comment on above: Result Comment: Toni brown note new reference ranges as of 07/25/2021. Ran on alternate instrument Reference Ranges: Males: 0-15 Females: 0-20 Children under 18: 0-10 Performed By: #### U ANKUSH #### [address] [id number] BLOOD CULTURE, BACTERIALon 1 BLOOD CULTURE, BACTERIAL PATIENT: LAWSON DOYLE LOCATION: [address]#: [id number] : 89 AGE: SEX: M ORDERED BY: KAREEN AGEE SOURCE: Blood COLLECTED: 03/17/22 14:57 ANTIBIOTICS AT YANN.: RECEIVED : 03/17/22 22:21 SITE: PERIPHERAL R E S U L T S BLOOD CULTURE, BACTERIAL FINAL 03/21/22 23:42 No Growth at 1 days No Growth at 2 days No Growth at 3 days NO GROWTH at 4 days - FINAL REPORT Normal [facility] Comment on above: Performed By: #### U ANKUSH #### [address] [id number] BLOOD CULTURE, BACTERIAL PATIENT: LAWSON DOYLE [facility] [id number] : [birth year] AGE: SEX: M ORDERED BY: KAREEN AGEE SOURCE: Blood COLLECTED: 03/17/22 14:05 ANTIBIOTICS AT YANN.: RECEIVED : 03/17/22 22:23 SITE: PERIPHERAL R E S U L T S BLOOD CULTURE, BACTERIAL FINAL 03/21/22 23:42 No Growth at 1 days No Growth at 2 days No Growth at 3 days NO GROWTH at 4 days - FINAL REPORT Normal [facility] Comment on above: Performed By: #### U ANKUSH #### [address] [id number] CBCon 03-17-2022 Erythrocyte distribution width (RBC) [Ratio] 12.6 % Normal 11.5 - 14.5 [facility] Comment on above: Performed By: #### U ANKUSH #### [address] [id number] Hematocrit (Bld) [Volume fraction] 24.7 % Low 41.0 - 52.0 [facility] Comment on above: Performed By: #### U ANKUSH #### [address] [id number] Hemoglobin (Bld) [Mass/Vol] 8.0 g/dL Low 13.5 - 17.5 [facility] Comment on above: Performed By: #### U ANKUSH #### [address] [id number] MCHC (RBC) [Mass/Vol] 32.4 g/dL Normal 32.0 - 36.0 [facility] Comment on above: Performed By: #### U ANKUSH #### [address] [id number] MCV (RBC) [Entitic vol] 94 fL Normal 80 - 100 [facility] Comment on above: Performed By: #### U ANKUSH #### [address] [id number] Platelets (Bld) [#/Vol] 135 10*3/uL Low 150 - 450 [facility] Comment on above: Performed By: #### U ANKUSH #### [address] [id number] RBC 2.64 x10E12/L Low 4.50 - 5.90 [facility] Comment on above: Performed By: #### U ANKUSH #### [address] [id number] WBC (Bld) [#/Vol] 4.5 10*3/uL Normal 4.4 - 11.3 [facility] Comment on above: Performed By: #### U ANKUSH #### [address] [id number] Consult-Nephrologyon 022 Consult-Nephrology Service: Service: Nephrology Consult: Consult requested by (Attending Name): Kareen Agee Reason: Patient with Alport's disease and renal failure, known to you. In with intractable vomiting. History of Present Illness: HPI: RUBENSLAWSON GAMBLE is a 22 year old Male with Alport's disease admitted with nausea vomiting possible uremic symptoms. I had seen him in the office for 5 years ago at which time kidney function was pretty well-preserved but was told he most likely has Alport's disease based on family history as well as urine findings of proteinuria and hematuria. Biopsy was done but specimen was not good enough to get a diagnosis. Was admitted here recently with foot issues and found to have a creatinine of around 7. Patient denied any uremic symptoms and was still working. At that time decision was made to follow-up as an outpatient and prepare for renal replacement therapy. However over the last couple days comes in with nausea vomiting flank pain and some shortness of breath. GFR is about the same but it is still less than 10 cc/min. Denies any NSAID use. White blood cell count was normal. He understands he most likely he will need to start dialysis. Past Medical History: -Alports disease -Hypertension -CKD stage V Past Surgical History: -Ankyloglossis release age 4 -Renal biopsy 06/08/2017 Extensive family history of Alport/end-stage renal disease. Both his mom and aunt had end-stage renal disease. His brother and cousins had kidney failure around the age of 20 as well. His brother was transplanted but back on dialysis. His cousin is transplanted Review Family/Social History and ROS: Social History: Smoking Status: unable to assess (1) Constitutional: POSITIVE: Malaise Eyes: NEGATIVE: Vision Loss/ Change ENMT: NEGATIVE: Nasal Discharge Respiratory: POSITIVE: Shortness of Breath Cardiac: NEGATIVE: Chest Pain Gastrointestinal: POSITIVE: Nausea, Diarrhea Genitourinary: NEGATIVE: Discharge Musculoskeletal: NEGATIVE: Decreased ROM Neurological: NEGATIVE: Dizziness Psychiatric: NEGATIVE: Mood Changes Skin: NEGATIVE: Mass Endocrine: NEGATIVE: Heat Intolerance Hematologic/Lymph: POSITIVE: Anemia Allergic/Immunologic: NEGATIVE: Anaphylaxis Allergies: No Known Allergies: Objective: Objective Information: T PRBPMAPSpO2 [id number] 8% Date/Time03/17 5: 5: 19: 5: 5: 5:34 Range(36.5C - 38.7C ) (89 - 102 ) (18 - 20 ) (140 - 152 )/ (70 - 84 ) (103 - 108 ) (96% - 99% ) Highest temp of 38.7 C was recorded at 03/16 19:45 Physical Exam by System: Constitutional: awake/alert/oriented x3, no distress, alert and cooperative Head/Neck: Neck supple, no apparent injury, No JVD, trachea midline, no bruits Respiratory/Thorax: Bilateral rhonchi Cardiovascular: Regular, rate and rhythm, no murmurs, 2+ equal pulses of the extremities, normal S 1and S 2 Gastrointestinal: Nondistended, soft, non-tender, no rebound tenderness or guarding, no masses palpable, no organomegaly, +BS, no bruits Musculoskeletal: ROM intact Extremities: normal extremities, no cyanosis edema, contusions or wounds, no clubbing Neurological: alert and oriented x3 Psychological: Appropriate mood and behavior Skin: Warm and dry, no lesions, no rashes Medications: Medications: ALTERNATIVE MEDICINES: 1. Melatonin: 10 mg Oral Daily 1800 CARDIOVASCULAR AGENTS: 1. cloNIDine (CATAPRES): 0.1 mg Oral 2 Times a Day 2. Carvedilol: 12.5 mg Oral 2 Times a Day 3. amLODIPine (NORVASC): 5 mg Oral Daily CENTRAL NERVOUS SYSTEM AGENTS: 1. Acetaminophen: 650 mg Oral Every 4 Hours PRN 2. Morphine Injectable: 4 mg IntraVenous Push Every 4 Hours PRN 3. Ondansetron Injectable: 4 mg IntraVenous Push Every 4 Hours PRN 4. Promethazine IV Piggy Back: 25 mg IntraVenous Piggyback Every 6 Hours PRN GASTROINTESTINAL AGENTS: 1. Magnesium Hydroxide -Al Hydrox -Simethicone Oral Liquid: 30 mL Oral Every 6 Hours PRN 2. Magnesium Hydroxide Oral Liquid CONCENTRATE: 10 mL Oral Every 24 Hours PRN 3. Docusate 50 mg - Senna 8.6 m tablet(s) Oral At Bedtime 4. Pantoprazole: 40 mg Oral Daily NUTRITIONAL PRODUCTS: 1. Lactated Ringers Infusion: 1000 mL IntraVenous TOPICAL AGENTS: 1. Lidocaine 4% TransDermal: 1 patch TransDermal Every 24 Hours Recent Lab Results: Results: I have reviewed these laboratory results: Complete Blood Count 17-Mar-2022 05:30:00 ResultValue White Blood Cell Count 4.5 Red Blood Cell Count 2.64 L HGB 8.0 L HCT 24.7 L MCV 94 MCHC 32.4 PLT 135 L RDW-CV 12.6 Renal Function Panel 17-Mar-2022 05:30:00 ResultValue Glucose, Serum 98 NA 137 K 4.9 CL 106 Bicarbonate, Serum 23 Anion Gap, Serum 13 BUN 62 H CREAT 7.54 H GFR Male 10 A Calcium, Serum 8.4 L Phosphorus, Serum 5.1 H ALB 3.4 Urinalysis with Culture if Indica (more content not included)... Normal [facility] Daily Progress Note-General Internal Medicineon 03-17-2022 Daily Progress Note-General Internal Medicine Service: General Internal Medicine History of Present Illness: History Present Illness: Admission Reason: Intractable back pain, vomiting HPI: 03/17 -Nausea is a bit better, has not been throwing up. Finally able to eat a little bit. No chest pains or shortness of breath. -Back is still very sore-did not try the Lidoderm patch "I do not like sticky stuff". Flexeril may be helping-he has not needed morphine yet today. After talking with him, he is willing to try the patch. Discussed with his nurse. -Understands dialysis, and is not upset about it. -Patient was febrile earlier this morning up to 101.6 F / 38.7 C. Will check blood cultures., vital signs are otherwise stable. Satting 98% on room air. -Chest is clear to auscultation. -Cardiac exam is a regular rhythm -He is still very tender to palpation over his right low rib area posteriorly-denies any history of trauma -CBC with a WBC of 4.5. H/H is 8.0/24.7 after IVF. Platelet count down at 135 K. Will continue to monitor. -Chemistry panel shows his electrolytes are normal. BUN and creatinine 62 with a creatinine up to 7.54. Will continue IVF. Nephrology consult is pending -Phosphorus 5.1, albumin 3.4. -Discussed with Dr. Grant-patient will be starting dialysis. *These notes are being done using [employer] voice recognition technology and may include unintended errors with respect to translation of words, typographical errors or grammar errors which may not have been identified prior to finalization of the chart note. Subjective Data: LAWSON DOYLE is a 22 year old Male who is Hospital Day # 2. See [place] for today above. Objective Data: Objective Information: T PRBPMAPSpO2 [id number] 8% Date/Time03/17 5: 5: 19: 5: 5: 5:34 Range(36.5C - 38.7C ) (89 - 102 ) (18 - 20 ) (140 - 152 )/ (70 - 84 ) (103 - 108 ) (96% - 99% ) Highest temp of 38.7 C was recorded at 03/16 19:45 Pain reported at 03/16 21:18: 3 = Mild T PRBPMAPSpO2 [id number] 5% Date/Time03/17 10: 10: 19: 10: 10: 10:20 Range(36.5C - 38.7C ) (89 - 102 ) (18 - 20 ) (140 - 154 )/ (70 - 95 ) (103 - 119 ) (95% - 99% ) Highest temp of 38.7 C was recorded at 03/16 19:45 Physical Exam Narrative: Physical Exam: Physical exam: -General appearance: Well-developed, well-nourished young white male sitting up in bed, alert and presently in NAD. -Vital signs: As above -HEENT: No icterus -Neck: No JVD -Chest: Lungs are clear to auscultation. He is still very tender to palpation over his right posterior lower ribs/upper back area. -Cardiac: Regular rhythm -Abdomen: Bowel sounds active. -Extremities: No edema -Skin: No skin rash -Neurologic: Patient is alert and oriented x3. -Behavior/Emotional: Appropriate, cooperative Medication: Medications: Continuous Medications --------- 1. Lactated Ringers Infusion: 1000 mL IntraVenous Scheduled Medications --------- 1. amLODIPine (NORVASC): 5 mg Oral Daily 2. Carvedilol: 12.5 mg Oral 2 Times a Day 3. cloNIDine (CATAPRES): 0.1 mg Oral 2 Times a Day 4. Docusate 50 mg - Senna 8.6 m tablet(s) Oral At Bedtime 5. Epoetin Trey (Non-ESRD) Injectable: 00338 unit(s) SubCutaneous Weekly 6. Lidocaine 4% TransDermal: 1 patch TransDermal Every 24 Hours 7. Melatonin: 10 mg Oral Daily 1800 8. Multivitamin Renal: 1 capsule(s) Oral Daily 9. Pantoprazole: 40 mg Oral Daily PRN Medications --------- 1. Acetaminophen: 650 mg Oral Every 4 Hours 2. Magnesium Hydroxide -Al Hydrox -Simethicone Oral Liquid: 30 mL Oral Every 6 Hours 3. Magnesium Hydroxide Oral Liquid CONCENTRATE: 10 mL Oral Every 24 Hours 4. Morphine Injectable: 4 mg IntraVenous Push Every 4 Hours 5. Ondansetron Injectable: 4 mg IntraVenous Push Every 4 Hours 6. Promethazine IV Piggy Back: 25 mg IntraVenous Piggyback Every 6 Hours Recent Lab Results: Results: I have reviewed these laboratory results: Complete Blood Count 17-Mar-2022 05:30:00 ResultValue White Blood Cell Count 4.5 Red Blood Cell Count 2.64 L HGB 8.0 L HCT 24.7 L MCV 94 MCHC 32.4 PLT 135 L RDW-CV 12.6 Renal Function Panel 17-Mar-2022 05:30:00 ResultValue Glucose, Serum 98 NA 137 K 4.9 CL 106 Bicarbonate, Serum 23 Anion Gap, Serum 13 BUN 62 H CREAT 7.54 H GFR Male 10 A Calcium, Serum 8.4 L Phosphorus, Serum 5.1 H ALB 3.4 Urinalysis with Culture if Indicated 16-Mar-2022 13:01:00 ResultValue Color, Urine YELLOW Reference Range: STRAW,YELLOW Appearance, Urine HAZY Specific Bowman, Urine 1.011 pH, Urine 5.0 Protein, Urine >=500 (3+) A Glucose, Urine 50 (TRACE) A Blood, Urine LARGE (3+) A Ketones, Urine NEGATIVE Bilirubin, Urine NEGATIVE Urobilinogen, Urine <2.0 Nitrite, Urine NEGATIVE Leukocyte Esterase (more content not included)... Normal [facility] INSERT DARNELL CATH W/O SQ PORT GREATER THAN 5 YRSon 03-17-2022 INSERT DARNELL CATH W/O SQ PORT GREATER THAN 5 YRS Patient Name: LAWSON DOYLE STUDY: INSERT DARNELL CATH W/O SQ PORT GREATER THAN 5 YRS; 03/17/2022 12:46 pm INDICATION: new ESRD . COMPARISON: None. ACCESSION NUMBER(S): [id number] ORDERING CLINICIAN: DARRYN GRANT TECHNIQUE: TUNNELLED DIALYSIS CATHETER PLACEMENT WITH ULTRASOUND AND FLUOROSCOPIC GUIDANCE The history and physical exam pertinent to the procedure were reviewed and no updates were made. After discussing the procedure and possible complications with the patient, informed consent was obtained. The patient was placed on the Special Procedures table. The operative area was sterilely prepared using 2% chlorhexidine and then draped with sterile towels and a body-sized sterile drape. All personnel in the Special Procedures Room donned caps and surgical masks. In addition, the back digger operator and executive administrative assistant donned sterile gowns and gloves after proper hand cleansing. A pre-procedure time out was performed in order to assure the correct patient and procedure. Local anesthetic was administered. The right internal jugular vein was accessed with a micropuncture needle, under direct sonographic guidance. A sonographic spot image was obtained for documentation. The micropuncture dilator was placed in the IJV. A guidewire was passed through the micropuncture dilator and advanced into the IVC using fluoroscopic guidance. The guidewire tract was dilated with vascular dilators. A 14F dilator was placed and capped to maintain venous access. Local anesthetic was administered to the anterior chest wall and a subcutaneous tunnel was created with a tunneling trocar. A catheter size dialysis catheter was pulled through the tunnel. The 14F dilator was exchanged over the guidewire for a 16F banana peel dilator/sheath. The dilator was removed and the catheter was advanced through the sheath during patient breath hold. The catheter was positioned appropriately. The banana peel sheath was removed. Both lumens of the catheter were shown to infuse and aspirate easily. Both lumens were then filled with an appropriate volume of heparinized saline. The puncture site at the base of the neck was closed with 4-0 Vicryl self-absorbing suture material. The flange of the catheter was sutured to the anterior chest wall with 2-0 Prolene. The patient tolerated the procedure well without complications. A total of 10 seconds of fluoroscopy time were utilized. FINDINGS: Fluoroscopic and sonographic guidance was used. Ultrasound demonstrated patency of the target vein without filling defects. Access was obtained under direct sonographic visualization (real-time ultrasound visualization of vessel needle passage to the venous lumen). A sonographic image of the vessel was obtained and placed into the permanent archive for documentation. A spot image of the chest showed the catheter tip to lie in the right atrium. IMPRESSION: SUCCESSFUL TUNNELED DIALYSIS CATHETER PLACEMENT WITHOUT IMMEDIATE COMPLICATIONS. Electronically signed by: FAITH AYALA MD Normal [facility] RENAL FUNCTION PANELon 03-17 Albumin [Mass/Vol] 3.4 g/dL Normal 3.4 - 5.0 [facility] Comment on above: Performed By: #### P TINR #### [address] [id number] Anion gap [Moles/Vol] 13 mmol/L Normal 10 - 20 [facility] Comment on above: Performed By: #### P TINR #### [address] [id number] Calcium [Mass/Vol] 8.4 mg/dL Low 8.6 - 10.3 [facility] Comment on above: Performed By: #### P TINR #### [address] [id number] Chloride [Moles/Vol] 106 mmol/L Normal 98 - 107 [facility] Comment on above: Performed By: #### P TINR #### [address] [id number] Creatinine [Mass/Vol] 7.54 mg/dL High 0.50 - 1.30 [facility] Comment on above: Performed By: #### P TINR #### [address] [id number] GFR/1.73 sq M.predicted among non-blacks MDRD (S/P/Bld) [Vol rate/Area] 10 mL/min/{1.73_m2} Abnormal >90 [facility] Comment on above: Result Comment: CALC ULATIONS OF ESTIMATED GFR ARE PERFORMED USING THE 2020 CKD-EPI STUDY REFIT EQUATION WITHOUT THE RACE VARIABLE FOR THE IDMS-TRACEABLE CREATININE METHODS. https://jasn.asnjournals.org/content//ASN.008378 9070 Performed By: #### P TINR #### [address] [id number] Glucose [Mass/Vol] 98 mg/dL Normal 74 - 99 [facility] Comment on above: Performed By: #### P TINR #### [address] [id number] HCO3 (Bld) [Moles/Vol] 23 mmol/L Normal 21 - 32 [facility] Comment on above: Performed By: #### P TINR #### [address] [id number] Phosphate [Mass/Vol] 5.1 mg/dL High 2.5 - 4.9 [facility] Comment on above: Result Comment: The performance characteristics of phosphorus testing in heparinized plasma have been validated by the individual laboratory site where testing is performed. Testing on heparinized plasma is not approved by the FDA; however, such approval is not necessary. Performed By: #### P TINR #### [address] [id number] Potassium [Moles/Vol] 4.9 mmol/L Normal 3.5 - 5.3 [facility] Comment on above: Performed By: #### P TINR #### [address] [id number] Sodium [Moles/Vol] 137 mmol/L Normal 136 - 145 [facility] Comment on above: Performed By: #### P TINR #### [address] [id number] Urea nitrogen [Mass/Vol] 62 mg/dL High 6 - 23 [facility] Comment on above: Performed By: #### P TINR #### [address] [id number] Admission Risk Screen - Adul ton 03-16-2022 Admission Risk Screen - Adult Allergies: Allergies: No Known Allergies: Patient Verification: New W ID Band Applied in my Departmentyes Patient Identity Verified Bypatient ID Band FULL Name, include Middle, spelling matches patient's ID used for verificationyes ID Band Matches Patient ID used for Verficationyes ID Band MRN Matches EMR MRNyes Visitor Restriction: Coronavirus Visitor Restriction: Reasonable restrictions to in-person visitors will be observed due to current coronavirus pandemic. Travel History: COVID-19 Screening Completedno exposure or symptoms(1) Travel or Exposure Past 30 DaysNO travel to International locations in the past 30 days Ebola AlertFor Ebola-like Symptoms: Isolate Patient and Notify Provider/Payment Collector For Contact: Notify Provider/Payment Collector Advance Directive: Advance Directive/DNRno (2) Advance Directive Information Givenpatient/family declined [place] Fall Screen: History of falling (immediate or previous)no (0) Secondary Diagnosisno (0) Intravenous Therapy/ Heparin/Saline Lockyes (20) Gait/Transferringnormal /bedrest/wheelchair (0) Ambulatory Aidsnone/bedrest/nurse assist (0) Mental Statusoriented to own ability (0) Score: Low risk (<25). Moderate risk (25-44). High risk (>44).20 [place] InterventionsLOW INTERVENTIONS: *patient oriented to surroundings and call system, * patient/family falls education completed and documented, *patients fall status communicated during bedside handoff, *whiteboard updated, *mode of toileting discussed with patient, *bed in low position with brakes locked, *call light in reach, * non-skid footwear Family Violence Screen: Are you or have you been threatened or abused physically, emotionally, or sexually by anyoneno Do you feel UNSAFE going back to the place where you are livingno Clinical assessment: Are there any apparent signs of injuries/behaviors that could be related to abuse/neglectno Social Service Consult for abuse/neglect needed this visitno Functional Screen: Functional Screen: In the recent/past 2-4 weeks, patient or family have noticedno issues that require a speech/language consult at this time AM-PAC- Basic Mobility/Daily Activity: Patient baseline bedboundno Turning from your back to your side while in a flat bed without using bedrailsnone Moving from lying on your back to sitting on the side of a flat bed without using bedrailsnone Moving to and from bed to chair (including a wheelchair)none Standing up from a chair using your arms (e.g. wheelchair or bedside chair) none To walk in hospital roomnone Climbing 3-5 steps with railingnone Basic Mobility - Total Score24 Putting on and taking off regular lower body clothingnone Bathing (including washing, rinsing, drying)none Putting on and taking off regular upper body clothingnone Toileting, which includes using toilet, bedpan or urinalnone Taking care of personal grooming such as brushing teethnone Eating Mealsnone Daily Activity - Total Score24 Learning Assessment (Patient): Patient is Able to be Assessed for Learningyes Factors Influencing Readiness to Learninterest in learning Factors that Impact Ability to Learnvisual problems Devices/Methods Used to Communicateglasses Learning Preferencesskill demonstration Cultural Considerationsnone Developmental Considerationsnone Jewish Considerationsnone Learning Assessment (Other Learner): Other learner availableno Depression Screen: During the past month, have you often been bothered by feeling down, depressed or hopelessno During the past month, have you often had little interest or pleasure in doing thingsno Have you had any thoughts of harming anyone elseno (1) [place] Suicide: Risk Screen Not Applicable/Able to Answerable to be screened In the Past Month: Have you wished you were or could go to sleep and not wake upno(1) In the Past Month: Have you had any actual thoughts of killing yourself no(1) Lifetime: Have you ever done, started to do, or prepared to do anything to end your lifeno [place] Suicide Risknegative Adult Nutrition Screen: Have you recently lost weight without tryingyes; 2-13 lb Have you been eating poorly because of a decreased appetiteno Malnutrition Screening Tool Score1 Malnutrition Screening Tool RiskMST = 0 or 1 Not at risk. Eating well with little or no weight loss Nutrition Consult needed this visitno Can Patient Participate in Room Serviceyes Patient requires Paper Dishes/Plastic Utensilsno Pain Screen: Pain Scalenumerical 0-10 Pain Scale Educationteaching provided Current Pain Level4 = Moderate Acceptable Pain Level6 = Moderate Expression of Pain (nonverbal)squirming Chronic Painno Spiritual Screen: Are there any cultural, spiritual, episcopal practices/values/needs that are important for us to knowno CAGE: Is this an injured patient at a (more content not included)... Normal [facility] CBC AND DIFFERENTIALon 03-16 % AUTOMATED IMMATURE GRAN 0.3 % Normal 0.0 - 0.9 [facility] Comment on above: Result Comment: Litzy ture Granulocyte Count (IG) includes promyelocytes, myelocytes and metamyelocytes but does not include bands. Percent differential counts (%) should be interpreted in the context of the absolute cell counts (cells/L). Performed By: #### G APC1 #### [address] [id number] Basophils (Bld) [#/Vol] 0.02 10*3/uL Normal 0.00 - 0.10 [facility] Comment on above: Performed By: #### G APC1 #### [address] [id number] Basophils/100 WBC (Bld) 0.3 % Normal 0.0 - 2.0 [facility] Comment on above: Performed By: #### G APC1 #### [address] [id number] Eosinophils (Bld) [#/Vol] 0.17 10*3/uL Normal 0.00 - 0.70 [facility] Comment on above: Performed By: #### G APC1 #### [address] [id number] Eosinophils/100 WBC (Bld) 2.5 % Normal 0.0 - 6.0 [facility] Comment on above: Performed By: #### G APC1 #### [address] [id number] Erythrocyte distribution width (RBC) [Ratio] 15.3 % High 11.5 - 14.5 [facility] Comment on above: Performed By: #### G APC1 #### [address] [id number] Hematocrit (Bld) [Volume fraction] 27.2 % Low 41.0 - 52.0 [facility] Comment on above: Performed By: #### G APC1 #### [address] [id number] Hemoglobin (Bld) [Mass/Vol] 8.8 g/dL Low 13.5 - 17.5 [facility] Comment on above: Performed By: #### G APC1 #### [address] [id number] Lymphocytes (Bld) [#/Vol] 0.26 10*3/uL Low 1.20 - 4.80 [facility] Comment on above: Performed By: #### G APC1 #### [address] [id number] Lymphocytes/100 WBC (Bld) 3.8 % Normal 13.0 - 44.0 [facility] Comment on above: Performed By: #### G APC1 #### [address] [id number] MCHC (RBC) [Mass/Vol] 32.4 g/dL Normal 32.0 - 36.0 [facility] Comment on above: Performed By: #### G APC1 #### [address] [id number] MCV (RBC) [Entitic vol] 96 fL Normal 80 - 100 [facility] Comment on above: Performed By: #### G APC1 #### [address] [id number] Monocytes (Bld) [#/Vol] 0.63 10*3/uL Normal 0.10 - 1.00 [facility] Comment on above: Performed By: #### G APC1 #### [address] [id number] Monocytes/100 WBC (Bld) 9.2 % Normal 2.0 - 10.0 [facility] Comment on above: Performed By: #### G APC1 #### [address] [id number] Neutrophils (Bld) [#/Vol] 5.74 10*3/uL Normal 1.20 - 7.70 [facility] Comment on above: Performed By: #### G APC1 #### [address] [id number] Neutrophils/100 WBC (Bld) 83.9 % Normal 40.0 - 80.0 [facility] Comment on above: Performed By: #### G APC1 #### [address] [id number] Platelets (Bld) [#/Vol] 195 10*3/uL Normal 150 - 450 [facility] Comment on above: Performed By: #### G APC1 #### [address] [id number] RBC 2.83 x10E12/L Low 4.50 - 5.90 [facility] Comment on above: Performed By: #### G APC1 #### [address] [id number] WBC (Bld) [#/Vol] 6.8 10*3/uL Normal 4.4 - 11.3 [facility] Comment on above: Performed By: #### G APC1 #### [address] [id number] COMPREHENSIVE PANELon 2021 Albumin [Mass/Vol] 4.1 g/dL Normal 3.4 - 5.0 [facility] Comment on above: Performed By: #### T PS2 #### [address] [id number] ALP [Catalytic activity/Vol] 60 U/L Normal 33 - 120 [facility] Comment on above: Performed By: #### T PS2 #### [address] [id number] ALT [Catalytic activity/Vol] 12 U/L Normal 10 - 52 [facility] Comment on above: Result Comment: Lalita ents treated with Sulfasalazine may generate falsely decreased results for ALT. Performed By: #### T PS2 #### [address] [id number] Anion gap [Moles/Vol] 20 mmol/L Normal 10 - 20 [facility] Comment on above: Performed By: #### T PS2 #### [address] [id number] AST [Catalytic activity/Vol] 17 U/L Normal 9 - 39 [facility] Comment on above: Performed By: #### T PS2 #### [address] [id number] Bilirubin [Mass/Vol] 0.4 mg/dL Normal 0.0 - 1.2 [facility] Comment on above: Performed By: #### T PS2 #### [address] [id number] Calcium [Mass/Vol] 8.8 mg/dL Normal 8.6 - 10.3 [facility] Comment on above: Performed By: #### T PS2 #### [address] [id number] Chloride [Moles/Vol] 104 mmol/L Normal 98 - 107 [facility] Comment on above: Performed By: #### T PS2 #### [address] [id number] Creatinine [Mass/Vol] 7.25 mg/dL High 0.50 - 1.30 [facility] Comment on above: Performed By: #### T PS2 #### [address] [id number] GFR/1.73 sq M.predicted among non-blacks MDRD (S/P/Bld) [Vol rate/Area] 10 mL/min/{1.73_m2} Abnormal >90 [facility] Comment on above: Result Comment: CALC ULATIONS OF ESTIMATED GFR ARE PERFORMED USING THE 2020 CKD-EPI STUDY REFIT EQUATION WITHOUT THE RACE VARIABLE FOR THE IDMS-TRACEABLE CREATININE METHODS. https://jasn.asnjournals.org/content/early//ASN.817885 6876 Performed By: #### T PS2 #### [address] [id number] Glucose [Mass/Vol] 89 mg/dL Normal 74 - 99 [facility] Comment on above: Performed By: #### T PS2 #### [address] [id number] HCO3 (Bld) [Moles/Vol] 18 mmol/L Low 21 - 32 [facility] Comment on above: Performed By: #### T PS2 #### [address] [id number] Potassium [Moles/Vol] 4.8 mmol/L Normal 3.5 - 5.3 [facility] Comment on above: Performed By: #### T PS2 #### [address] [id number] Protein [Mass/Vol] 6.7 g/dL Normal 6.4 - 8.2 [facility] Comment on above: Performed By: #### T PS2 #### [address] [id number] Sodium [Moles/Vol] 137 mmol/L Normal 136 - 145 [facility] Comment on above: Performed By: #### T PS2 #### [address] [id number] Urea nitrogen [Mass/Vol] 68 mg/dL High 6 - 23 [facility] Comment on above: Performed By: #### T PS2 #### [address] [id number] ALBUMIN Canceled Normal [facility] Comment on above: Order Comment: TEST COMPREHENSIVE PANEL WAS CANCELLED, 03/16/2022 11:18 Grossly hemolyzedNotified Darlyn W that specimen will be recollected. Performed By: #### T PS2 #### [address] [id number] ALKALINE PHOSPHATASE Canceled Normal [facility] Comment on above: Order Comment: TEST COMPREHENSIVE PANEL WAS CANCELLED, 03/16/2022 11:18 Grossly hemolyzedNotified Darlyn W that specimen will be recollected. Performed By: #### T PS2 #### [address] [id number] ALT Canceled Normal [facility] Comment on above: Order Comment: TEST COMPREHENSIVE PANEL WAS CANCELLED, 03/16/2022 11:18 Grossly hemolyzedNotified Darlyn W that specimen will be recollected. Result Comment: Lalita ents treated with Sulfasalazine may generate falsely decreased results for ALT. Performed By: #### T PS2 #### [address], [place] [id number] ANION GAP Canceled Normal [facility] Comment on above: Order Comment: TEST COMPREHENSIVE PANEL WAS CANCELLED, 03/16/2022 11:18 Grossly hemolyzedNotified Darlyn W that specimen will be recollected. Performed By: #### T PS2 #### [address], [place] [id number] AST Canceled Normal [facility] Comment on above: Order Comment: TEST COMPREHENSIVE PANEL WAS CANCELLED, 03/16/2022 11:18 Grossly hemolyzedNotified Darlyn W that specimen will be recollected. Performed By: #### T PS2 #### [address], [place] [id number] BICARBONATE Canceled Normal [facility] Comment on above: Order Comment: TEST COMPREHENSIVE PANEL WAS CANCELLED, 03/16/2022 11:18 Grossly hemolyzedNotified Darlyn W that specimen will be recollected. Performed By: #### T PS2 #### [address], [place] [id number] BILIRUBIN,TOTAL Canceled Normal [facility] Comment on above: Order Comment: TEST COMPREHENSIVE PANEL WAS CANCELLED, 03/16/2022 11:18 Grossly hemolyzedNotified Darlyn W that specimen will be recollected. Performed By: #### T PS2 #### [address], [place] [id number] CALCIUM Canceled Normal [facility] Comment on above: Order Comment: TEST COMPREHENSIVE PANEL WAS CANCELLED, 03/16/2022 11:18 Grossly hemolyzedNotified Darlyn W that specimen will be recollected. Performed By: #### T PS2 #### [address] [id number] CHLORIDE Canceled Normal [facility] Comment on above: Order Comment: TEST COMPREHENSIVE PANEL WAS CANCELLED, 03/16/2022 11:18 Grossly hemolyzedNotified Darlyn W that specimen will be recollected. Performed By: #### T PS2 #### [address] [id number] CREATININE Canceled Normal [facility] Comment on above: Order Comment: TEST COMPREHENSIVE PANEL WAS CANCELLED, 03/16/2022 11:18 Grossly hemolyzedNotified Darlyn W that specimen will be recollected. Performed By: #### T PS2 #### [address] [id number] eGFR FEMALE Canceled Normal [facility] Comment on above: Order Comment: TEST COMPREHENSIVE PANEL WAS CANCELLED, 03/16/2022 11:18 Grossly hemolyzedNotified Darlyn W that specimen will be recollected. Result Comment: CALC ULATIONS OF ESTIMATED GFR ARE PERFORMED USING THE 2020 CKD-EPI STUDY REFIT EQUATION WITHOUT THE RACE VARIABLE FOR THE IDMS-TRACEABLE CREATININE METHODS. https://jasn.asnjournals.org/content/early/ASN.939583 8752 Performed By: #### T PS2 #### [address] [id number] eGFR MALE Canceled Normal [facility] Comment on above: Order Comment: TEST COMPREHENSIVE PANEL WAS CANCELLED, 03/16/2022 11:18 Grossly hemolyzedNotified Darlyn W that specimen will be recollected. Result Comment: CALC ULATIONS OF ESTIMATED GFR ARE PERFORMED USING THE 2020 CKD-EPI STUDY REFIT EQUATION WITHOUT THE RACE VARIABLE FOR THE IDMS-TRACEABLE CREATININE METHODS. https://jasn.asnjournals.org/content/early/ASN.916290 7402 Performed By: #### T PS2 #### [address] [id number] GLUCOSE Canceled Normal [facility] Comment on above: Order Comment: TEST COMPREHENSIVE PANEL WAS CANCELLED, 03/16/2022 11:18 Grossly hemolyzedNotified Darlyn W that specimen will be recollected. Performed By: #### T PS2 #### [address] [id number] POTASSIUM Canceled Normal [facility] Comment on above: Order Comment: TEST COMPREHENSIVE PANEL WAS CANCELLED, 03/16/2022 11:18 Grossly hemolyzedNotified Darlyn W that specimen will be recollected. Performed By: #### T PS2 #### [address] [id number] SODIUM Canceled Normal [facility] Comment on above: Order Comment: TEST COMPREHENSIVE PANEL WAS CANCELLED, 03/16/2022 11:18 Grossly hemolyzedNotified Darlyn W that specimen will be recollected. Performed By: #### T PS2 #### [address] [id number] TOTAL PROTEIN Canceled Normal [facility] Comment on above: Order Comment: TEST COMPREHENSIVE PANEL WAS CANCELLED, 03/16/2022 11:18 Grossly hemolyzedNotified Darlyn W that specimen will be recollected. Performed By: #### T PS2 #### [address] [id number] UREA NITROGEN Canceled Normal [facility] Comment on above: Order Comment: TEST COMPREHENSIVE PANEL WAS CANCELLED, 03/16/2022 11:18 Grossly hemolyzedNotified Darlyn W that specimen will be recollected. Performed By: #### T PS2 #### [address] [id number] Covid 19 Resultson 2 SARS-CoV-2 (COVID-19) RNA MIGUEL+probe Ql (Unsp spec) NEGATIVE COVID-19 Test Coronaviruses are common world-wide and are the cause of many common colds. SARS-COV2 is a new coronavirus that began circulating worldwide in 2019 so we are calling it COVID-19. It has been estimated that four out of five patients with COVID-19 will recover at home without the need for medical attention. Symptoms of COVID-19 may include cough, fever, shortness of breath, loss of taste or smell and other flu-like symptoms including chills, sore muscles, sore throat, and headache. Severe illness is more common in older people and people with other health problems such as high blood pressure, obesity, and immune system problems. If the test is positive, you have COVID-19. You will be contacted by the ordering physicians office and instructed to remain on home isolation, in accordance with CDC guidelines. You may also be contacted by the [facility] to see if any of your close contacts may have been exposed to the virus and need to quarantine. If the test is negative, you likely do not have COVID-19 at this time, but you still may have a different illness that can spread to other people (like Influenza, or the Flu) and could still be at risk for getting COVID-19. We recommend that you stay away from other people to limit the spread of illness until your symptoms are improving and you are fever-free for 24 hours without the use of fever lowering medications such as acetaminophen or ibuprofen. No test is 100% accurate so if you are still concerned you may have COVID-19, talk to your doctor about the need to continue to stay away from others. Medicines Unless your provider told you not to use the following: Acetaminophen (Tylenol and others) is generally safe. Anti-inflammatory medications, such as Ibuprofen (Advil or Motrin) or Naproxen (Aleve) can also be used. Omqn-cmo-wyjgtfk cough and cold medicines can be used according to the instructions on the package. Some ugst-eeb-xspfphx medicines also contain acetaminophen. Make sure you are not taking more than your recommended dose. For those not hospitalized, there is no specific treatment available for this illness. Antibiotics do not treat Coronaviruses. Follow-Up Follow up with your doctor by scheduling a virtual visit or consider follow-up at one of our urgent care fever clinics. If you are having difficulty breathing, or are very weak and having difficulty standing, this is a medical emergency. Call 911 or have someone take you to the nearest emergency room immediately. If possible, wear a facemask. Additional guidance from the CDC for patients who tested POSITIVE for COVID-19 How to isolate: Isolate yourself in a specific room at home and limit your contact with others. Use a separate bathroom from other members of the household, when possible. Leave home only to get essential medical care. Do not go to work, school or public areas. Avoid using public transportation, ride-sharing, or taxis. Restrict contact with pets and other animals. If you must care for your pet or be around animals while you are sick, wash your hands before and after your interaction and wear a facemask. Make sure that shared spaces in the home have good airflow, such as by an air conditioner or an opened window, weather permitting. Personal Hygiene Procedures: Wear a face mask when in the same room as other people or pets. If a face mask interferes with your breathing, others should wear a mask when sharing space with you. Frequent hand-washing: wash your hands with soap and water for at least 20 seconds. If soap and water are not available, use alcohol-based hand equipment associate. Avoid touching your eyes, nose, and mouth with unwashed hands. Household Hygiene Procedures: Avoid sharing personal household items such as dishes, glassware, cups, eating utensils, towels or bedding with other people or pets in your home. After use, these items should be washed with soap and hot water. Disinfect all high-touch surfaces every day with antibacterial cleaning solutions such as Lysol wipes, bleach, cleansers, etc. High-touch surfaces include tabletops, doorknobs, bathroom fixtures, toilets, phones, keyboards, tablets and bedside tables. Immediately clean any surfaces that may have blood, poop or body fluids on them, using antibacterial cleaning solutions such as Lysol wipes, bleach, cleansers, etc. If clothing or bedding come into contact with blood, poop or body fluids, they should be washed immediately. Follow the directions on the laundry detergent and clothing labels but hot water is recommended when possible. Stopping home isolation precautions: If possible, consult your doctor before stopping home isolation precautions. According to the CDC, you can discontinue home isolation precautions when you have met both of these criteria: Your fever and respiratory symptoms have been gone for 24 shayne (more content not included)... Normal [facility] INFLUENZA A/B, COVID 2019 PC R,SYMPTOMATICon 03-16-2022 INFLUENZA A, PCR Not detected Normal Not Detected [facility] Comment on above: Result Comment: Resp iratory virus testing is performed routinely by PCR for Influenza A/B and RSV. Not Detected results do not preclude Influenza A/B or RSV infections since the adequacy of sample collection or low viral burden may impact the clinical sensitivity of this test method. Performed By: #### G APC1 #### [address] [id number] INFLUENZA B, PCR Not detected Normal Not Detected [facility] Comment on above: Result Comment: Resp iratory virus testing is performed routinely by PCR for Influenza A/B and RSV. Not Detected results do not preclude Influenza A/B or RSV infections since the adequacy of sample collection or low viral burden may impact the clinical sensitivity of this test method. Performed By: #### G APC1 #### [address] [id number] SARS-CoV-2 (COVID-19) RNA MIGUEL+probe Ql (Unsp spec) Not detected Normal Not Detected [facility] Comment on above: Result Comment: . This test has received Emergency Use Authorization (EUA) and has been verified by [facility]. This test is only authorized for the duration of time that circumstances exist to justify the authorization of the emergency use of in vitro diagnostic tests for the detection of SARS-CoV-2 virus and/or diagnosis of COVID-19 infection under section 564(b)(1) of the Act, 21 U.S.C. 360bbb-3(b)(1), unless the authorization is terminated or revoked sooner. [facility] is certified under CLIA-88 as qualified to perform high complexity testing. Testing is performed in the [facility] laboratory located at [address] [place], [place] [id number]. SARS-CoV-2/Flu/RSV Multiplex Test: Fact sheet for providers: https://www.fda.gov/media/582627/download Fact sheet for patients: https://www.fda.gov/media/490347/download Performed By: #### G APC1 #### [address] [id number] Lab Specimen Source Nasal, Nasopharyngeal Normal [facility] Comment on above: Performed By: #### G APC1 #### [address] [id number] LACTATEon 03-16-2022 Lactate [Moles/Vol] 0.7 mmol/L Normal 0.4 - 2.0 [facility] Comment on above: Result Comment: Shelbie puncture immediately after or during the administration of Metamizole may lead to falsely low results. Testing should be performed immediately prior to Metamizole dosing. Performed By: #### T PS2 #### [address] [id number] LACTATE Canceled Normal [facility] Comment on above: Order Comment: TEST LACTATE WAS CANCELLED, 03/16/2022 11:19 Grossly hemolyzedNotified Darlyn W that specimen will be recollected. Result Comment: Shelbie puncture immediately after or during the administration of Metamizole may lead to falsely low results. Testing should be performed immediately prior to Metamizole dosing. Performed By: #### M G #### [address] [id number] LIPASEon 03-16-2022 Lipase [Catalytic activity/Vol] 69 U/L Normal 9 - 82 [facility] Comment on above: Result Comment: Shelbie puncture immediately after or during the administration of Metamizole may lead to falsely low results. Testing should be performed immediately prior to Metamizole dosing. I-kdyqjd-v-benzoquinone imine (metabolite of Acetaminophen) will generate erroneously low results in samples for patients that have taken toxic doses of acetaminophen. Performed By: #### G APC1 #### [address] [id number] LIPASE Canceled Normal [facility] Comment on above: Order Comment: TEST RENAL FUNCTION PANEL WAS CANCELLED, 02/21/2022 06:55 CMP and PHOS on other order. Result Comment: Shelbie puncture immediately after or during the administration of Metamizole may lead to falsely low results. Testing should be performed immediately prior to Metamizole dosing. Performed By: #### R ENAL #### [address] [id number] Order Reconciliationon 03-16 Order Reconciliation Page 1 Admission Reconciliation Document Reconciliation Type: ED to Observation requested on behalf of Kareen Agee (Physician) done by Kareen Agee) ED to Observation - Reconciliation: 16-Mar-2022 14:55 by: Kareen Agee) ED to Observation - AutoLinked: 16-Mar-2022 14:55 by: Kareen Agee) Home MedicationsEnteredLast Dose TakenReconciled with current Order Reconciliation Comment/ Additional Information amLODIPine 5 mg oral tablet 1 tab(s) orally once a [id number] amLODIPine (NORVASC) TabletDOSE = 5 mg Oral DailyamLODIPine 5 mg oral tablet continued as the inpatient order amLODIPine (NORVASC) carvedilol 12.5 mg oral tablet 1 tab(s) orally 2 times a [id number] Carvedilol Tablet (COREG)DOSE = 12.5 mg Oral 2 Times a Daycarvedilol 12.5 mg oral tablet continued as the inpatient order Carvedilol cloNIDine 0.1 mg oral tablet 1 tab(s) orally 2 times a [id number] cloNIDine (CATAPRES) TabletDOSE = 0.1 mg Oral 2 Times a DaycloNIDine 0.1 mg oral tablet continued as the inpatient order cloNIDine (CATAPRES) melatonin 3 mg oral tablet 2 tab(s) orally once (at bedtime) -Insomnia 16-Mar-2022 Melatonin TabletDOSE = 10 mg Oral Daily 1800melatonin 3 mg oral tablet continued as the inpatient order Melatonin Protonix 40 mg oral delayed release tablet 1 tab(s) orally once a day x 15 days 16-Mar-2022 Pantoprazole Enteric Coated Tablet (PROTONIX)DOSE = 40 mg Oral DailyProtonix 40 mg oral delayed release tablet continued as the inpatient order Pantoprazole Additional Current Orders Cyclobenzaprine Tablet (FLEXERIL)DOSE = 10 mg Oral Once Normal [facility] PT/INRon 03-16-2022 PT Coag (PPP) [Time] 12.4 s Normal 9.8 - 13.4 [facility] Comment on above: Performed By: #### P TINR #### [address] [id number] PT, INR 1.1 Normal 0.9 - 1.1 [facility] Comment on above: Performed By: #### P TINR #### [address] [id number] Patient Profile - Adult v2on 03-16-2022 Patient Profile - Adult v2 Profile: Initial Info: How to be AddressedCurtis(1) Spoken Language PreferredEnglish (1) Stated Reason for AdmissionI have lower back pain and I cant keep any food down. Wants Family/Rep Notified of Admissionno Notify PCPdo not notify PCP Informed of Patient Visiting Rightsyes Arrived Fromemergency department Patient Belongingsremains with patient Patient Belongings Remaining with Patientvision aids; purse/wallet; cell phone/electronics; clothing; 1 wallet, 1 coat, 11 credit/debit cards, 1 cell phone, 1 pair glasses, 1 shirt, 1 pair shoes, 1 pair of pants. 1 pair of socks. Medications Brought to Hospitalno General Health: Weight in kg79.5 kilogram(s) Weight in gnz403.2 pound(s) Weight Methodactual (measured) Scale Typebed Height in cm177.8 centimeter(s)(2) Height in feet5 feet Height in bwoieg66 inch(es) Height Methodstated BMI (kg/m2)25.148 square meter RSP Based Care: How would you like to participate in your careI don't know. What is the number one concern for you during this hospitalizationI don't really have a concern. What is the most important thing we can do to support you during this hospitalizationI don't know. Is there anything we need to know to best care for youno Substance: Smoking Statusunable to assess (3) Health Mgmt: Symptoms/Conditions Managed at Homecardiovascular; genitourinary Cardiovascular Symptoms/Conditionshype rtension Cardiovascular Management Strategiesmedication therapy Cardiovascular Managementmanaged Genitourinary Symptoms/Conditionsrena l disease Genitourinary Management Strategiesmedication therapy Genitourinary Managementmanaged Relationship/Environ: Resource/Environmental Concernsnone Primary Source of Support/Comfortno one Lives Withparent(s) Living Arrangementshouse Services Anticipated at Transitionnone Anticipated Transition Tohome Significant IndicatorsComplete Information Review: Allergies, Home Meds and Significant Events have been Reviewed and Verified with Patient/Familyyes ALLERGY, INTOLERANCE, ADVERSE EVENT: Allergies: No Known Allergies: Active Electronic Signatures: Zoë Reyes (TASHIA) (Signed 16-Mar-2022 14:29) Authored: Initial Info, General Health, RSP Based Care, Substance, Health Mgmt, Relationship/Environ, Additional Information Last Updated: 16-Mar-2022 14:29 by Zoë Reyes (TASHIA) References: 1. Data Referenced From Patient Profile - Adult v2" 18-Feb-2022 21:23 2. Data Referenced From 1. Vital Signs 16-Mar-2022 09:12 3. Data Referenced From Risk Screen - Adult Emergency" 16-Mar-2022 09:11 Normal [facility] Provider Note - ED v3on 12-2 Provider Note - ED v3 Provider Note: Chart Review: ED NOTES ED NOTES: Chief Complaint: vomiting History of Present Illness: This is a 22-year-old male with a past medical history significant for Alport syndrome, hypertension and kidney disease recently admitted to the hospital with an early February for an infected toenail and was evaluated by infectious disease and was also found to have acute renal failure and hypertension. He returned to the emergency department with nausea vomiting March 04 had a CAT scan done with no abnormal findings and was discharged home with antiemetics. He states that he was able to keep some fluids down and had small dark urination this morning but has not been able to eat for 3 days. Denies any fevers or chills no chest pain or shortness of breath. Denies any abdominal pain does report significant bilateral low back pain with no incontinence of bowel or bladder no saddle paresthesia no injuries or falls. No dysuria frequency or urgency reported Review of Systems All systems negative except as noted in HPI or elsewhere in the chart Constitutional: no fever, chills, weakness, dizziness Eyes: no redness, discharge, vision change, pain ENT: no sore throat, nosebleeds, rhinorrhea, hearing loss, ear pain, ear discharge Cardiovascular: no chest pain, leg edema, palpitations Respiratory: no shortness of breath, cough, dyspnea on exertion, pleurisy, hemoptysis GI: +nausea, diarrhea, pain, +vomiting, constipation, BRBPR, melena, heartburn : no dysuria, discharge, frequency, flank pain, hematuria, bleeding Musculoskeletal: no myalgia, neck/back pain, redness, arthralgia, inflammation Skin: no rash, bruising, contusions, swelling, lacerations, abrasions Neurological: no headache, numbness, change in function, weakness, AMS, paresthesias, speech change Psychiatric: no AMS, agitation, suicidal, confusion, depression, anxiety Metabolic: no fatigue, polyuria, hair change, dry skin, weakness, polydipsia, temperature intolerance Hematologic: no bleeding, nodes, bruising, petechiae Allergic: no rhinorrhea, sneezing, atopic dermatitis, frequent URIs PMFSH Nursing notes reviewed and confirmed by me. Past Medical History: alport syndrome, htn, renal disease Past Surgical History: Tetanus: UTD Family History: no DM, HTN, CAD, CVA, Cancer Social History: no smoking, alcohol use, substance abuse, lives alone, marital status Allergies and Medications: See nurses notes. Physical Exam Constitutional: Vital signs per nursing notes. Well developed, well nourished. No acute distress. Young pale male appears to be in fair health evaluated in room 25 Psychiatric: alert and oriented to person, place, and time; no abnormalities of mood or affect; memory intact Eyes: PERRL; conjunctivae and lids normal; EOMI ENT: Slightly dry mucous membranes, nasal mucosa, turbinates, and septum normal; mouth, tongue, and pharynx normal; pharynx without edema, exudate, or injection Neck: neck supple, no meningismus; trachea midline without deviation; no lymphadenopathy; no thyromegaly; carotid pulses even bilaterally Chest: no masses or tenderness, no discharge Respiratory: normal respiratory effort and excursion; no rales, rhonchi, or wheezes; equal air entry Cardiovascular: regular rate and rhythm; no murmurs, rubs or gallops; symmetric pulses; no edema; normal capillary refill; distal pulses present Neurological: normal speech; CN II-XII grossly intact; GI: no masses, tenderness, rebound or guarding; no palpable, pulsatile mass; no organomegaly; no hernia; normal bowel sounds; (-) Windsor sign; (-) McBurneys sign; (+bilateral ) CVA tenderness Lymphatic: no adenopathy of neck, axillae, groin Musculoskeletal: normal gait and station; normal digits and nails; no cervical, thoracic or lumbar spine tenderness, no step-offs appreciated, there is some reproducible bilateral lumbar musculature tenderness palpation ; normal strength/tone; neurovascular status intact; (-) Homans sign; (-) straight leg raise Skin: normal to inspection; normal to palpation; no rash GCS: 15 HISTORY OF PRESENTING ILLNESS LAWSON is a 22 year old Male and was seen by me at 16-Mar-2022 09:14 for a chief complaint of flank pain (bilateral flank pain and pt states he has been vomiting)(1). Triage Information: Most recent Vital Sign Value Date Temp (F): 97.7 03-16-2022 09:12 Temp (C): 36.5 03-16-2022 09:12 Heart Rate (beats/min): 102 03-16-2022 09:12 Respirations (breaths/min): 18 03-16-2022 09:12 SpO2 (%): 98 03-16-2022 09:12 BP Systolic (mm Hg): 152 03-16-2022 09:12 BP Diastolic (mm Hg): 70 03-16-2022 09:12 PAST MEDICAL HISTORY ALLERGIES/INTOLERANCES: No Known Allergies HEALTH HISTORY: No documented data. OUTPATIENT MEDICATIONS: Home Medications Review Status for Reconciliation: Complete Med Status: Patient Currently Takes Medications Drug Name: cloNIDine (more content not included)... Normal [facility] Risk Screen - Adult Emergenc yon 03-16-2022 Risk Screen - Adult Emergency Preferred Language: Preferred Language: Preferred Language for Discussing Health Care (patient/designee)Angelica bates Patient Preferred Pharmacy: Patient Preferred Pharmacy Statement: I have reviewed and updated the patient's preferred pharmacy selection for today's visit. Advanced Directives: Advance Directive/DNRno Family Violence Adult: Abuse Screen: Are you or have you been threatened or abused physically, emotionally, or sexually by anyoneno Learning Assessment (Patient): Learning Assessment (Patient): Patient is Able to be Assessed for Learningyes Factors Influencing Readiness to Learnacuteness of illness Factors that Impact Ability to Learnnone Devices/Methods Used to Communicatenone Learning Preferencesaudio Cultural Considerationsnone Developmental Considerationsnone Jewish Considerationsnone Learning Assessment (Other Learner): Learning Assessment (Other Learner): Other learner availableno Pressure Injury/TB/Substance: Pressure Injury: Do you have a coughno Smoking Statusunable to assess Admission Risk Screen: Significant IndicatorsComplete CAGE: CAGE: Is this an injured patient at a Trauma Center ([facility]/[place]/[facility] a/[place]): no Electronic Signatures: Leanna Rider (STAFF N) (Signed 16-Mar-2022 09:12) Authored: Preferred Language, Patient Preferred Pharmacy, Advanced Directives, Family Violence Adult, Learning Assessment (Patient), Learning Assessment (Other Learner), Pressure Injury/TB/Substance, Pressure Injury, CAGE Last Updated: 16-Mar-2022 09:12 by Leanna Rider (STAFF N) Normal [facility] Triage - EDon 03-16-2022 Triage - ED Chart Review: PRIMARY ASSESSMENT LAWSON DOYLE's primary assessment is Within Defined Limits. The airway is open and patent. Breathing spontaneous and unlabored with clear breath sounds bilaterally. Circulation is normal with good peripheral pulses. Skin is warm and dry and color is normal for race. ARRIVAL INFORMATION Means of Arrival: Ambulatory Mode of Arrival: private vehicle Arrival From: home Accompanied By: self CHIEF COMPLAINT LAWSON DOYLE is a Male patient with a chief complaint of flank pain (bilateral flank pain and pt states he has been vomiting). Triage Date/Time: 16-Mar-2022 09:12 MISHA: 3 Pain Rating (0-10): 8 = Severe Vital Signs: Temperature: 97.7F ( 36.5C) taken skin probe Blood Pressure: 152/70 Mean: Heart Rate: 102 Respiratory Rate: 18 Pulse Oximetry: 98% Height: 5 feet 10.00 inches. 177.8 CM Weight: 187.3 pounds. Calculated 85.0 kg. Calculated BMI (kg/m2): 26.887 Calculated BSA (m2) 2.05 [place] Coma Scale: Best Eye Response: (E4) spontaneous Best Motor Response: (M6) obeys commands Best Verbal Response: (V5) oriented [place] Score: 15 Allergies: no Patient has homicidal thoughts: no Symptom Notes: . Symptoms Are POSITIVE For: flank pain. Symptoms Are Negative For: anorexia, chills, dysuria, fever, frequency, hematuria, malaise, nausea and urgency. Risk Screens Suicide Risk Screen In the Past Month: Have you wished you were or wished you could go to sleep and not wake up no In the Past Month: Have you had any actual thoughts of killing yourself no In Your Lifetime: Have you ever done anything, started to do anything, or prepared to do anything to end your life no Nickerson Fall Scale Screening Has the patient fallen before (or is the patient in the ED as a result of a fall) has not had a fall Does the patient have an impaired gait does not have impaired gait Is the patient cognitively impaired not cognitively impaired Interventions: Nickerson Fall Interventions: LOW INTERVENTIONS: *patient oriented to surroundings and call system, * patient/family falls education completed and documented, *patients fall status communicated during bedside handoff, *whiteboard updated, *mode of toileting discussed with patient, *bed in low position with brakes locked, *call light in reach, * non-skid footwear PAST MEDICAL HISTORY Immunization History: Last Known Tetanus Immunization: Greater than 5 years but less than 10 years TRAVEL HISTORY Travel History Coronavirus Screening: no exposure or symptoms Travel Exposure History: NO travel to International locations in the past 30 days PAIN Pain Scale Used: EDMUNDO Pain Rating (0-10): 8 = Severe Past Medical History: Past Medical History Reviewedyes HTN: Past Medical History, Active DTaP- Ihxkjjzyw-Yhqsqlg-wjvgp ular Pertussis: Immunizations, Active, 2019 SARS-CoV-2 (COVID-19): Immunizations, Active Electronic Signatures: Leanna Rider (STAFF N) (Signed 16-Mar-2022 09:14) Authored: Quick Triage, Risk Screens, Pain, Arrival, ABCD, Immunizations, Travel History, Chart Review, Scores, Past Medical History Last Updated: 16-Mar-2022 09:14 by Leanna Rider (STAFF N) Normal [facility] UA MICROSCOPICon 03-16-2022 Mucus Ql (Urine sed) 1+ /LPF Normal [facility] Comment on above: Performed By: #### U ANKUSH #### [address] [id number] RBC 50 /HPF Abnormal 0-5 [facility] Comment on above: Performed By: #### U ANKUSH #### [address] [id number] SQUAMOUS EPITH. CELLS <1 Normal [facility] Comment on above: Performed By: #### U ANKUSH #### [address] [id number] WBC 3 /HPF Normal 0-5 [facility] Comment on above: Performed By: #### U ANKUSH #### [address] [id number] URINALYSIS WITH CULTURE IF I NDICATEDon 03-16-2022 Appearance (U) HAZY Normal CLEAR [facility] Comment on above: Performed By: #### P TINR #### [address] [id number] Bilirubin Ql (U) Negative Normal NEGATIVE [facility] Comment on above: Performed By: #### P TINR #### [address] [id number] Color (U) YELLOW Normal STRAW,YELLOW [facility] Comment on above: Performed By: #### P TINR #### [address] [id number] Glucose Ql (U) 50 (TRACE) Abnormal NEGATIVE [facility] Comment on above: Performed By: #### P TINR #### [address] [id number] Hemoglobin Ql (U) LARGE (3+) Abnormal NEGATIVE [facility] Comment on above: Performed By: #### P TINR #### [address] [id number] Ketones Ql (U) Negative Normal NEGATIVE [facility] Comment on above: Performed By: #### P TINR #### [address] [id number] Leukocyte esterase Test strip Ql (U) Negative Normal NEGATIVE [facility] Comment on above: Performed By: #### P TINR #### [address] [id number] Nitrite Ql (U) Negative Normal NEGATIVE [facility] Comment on above: Performed By: #### P TINR #### [address] [id number] pH (U) 5.0 [pH] Normal 5.0 - 8.0 [facility] Comment on above: Performed By: #### P TINR #### [address] [id number] Protein Ql (U) >=500 (3+) Abnormal NEGATIVE [facility] Comment on above: Performed By: #### P TINR #### [address] [id number] Specific gravity (U) [Rel density] 1.011 Normal 1.005 - 1.035 [facility] Comment on above: Performed By: #### P TINR #### [address] [id number] Urobilinogen (U) [Mass/Vol] mg/dL Normal 0.0 - 1.9 [facility] Comment on above: Performed By: #### P TINR #### [address] [id number] CBC AND DIFFERENTIALon 03-04 % AUTOMATED IMMATURE GRAN 0.4 % Normal 0.0 - 0.9 [facility] Comment on above: Result Comment: Litzy ture Granulocyte Count (IG) includes promyelocytes, myelocytes and metamyelocytes but does not include bands. Percent differential counts (%) should be interpreted in the context of the absolute cell counts (cells/L). Performed By: #### G APC1 #### [address] [id number] Basophils (Bld) [#/Vol] 0.03 10*3/uL Normal 0.00 - 0.10 [facility] Comment on above: Performed By: #### G APC1 #### [address] [id number] Basophils/100 WBC (Bld) 0.4 % Normal 0.0 - 2.0 [facility] Comment on above: Performed By: #### G APC1 #### [address] [id number] Eosinophils (Bld) [#/Vol] 0.59 10*3/uL Normal 0.00 - 0.70 [facility] Comment on above: Performed By: #### G APC1 #### [address] [id number] Eosinophils/100 WBC (Bld) 7.3 % Normal 0.0 - 6.0 [facility] Comment on above: Performed By: #### G APC1 #### [address] [id number] Erythrocyte distribution width (RBC) [Ratio] 13.4 % Normal 11.5 - 14.5 [facility] Comment on above: Performed By: #### G APC1 #### [address] [id number] Hematocrit (Bld) [Volume fraction] 29.2 % Low 41.0 - 52.0 [facility] Comment on above: Performed By: #### G APC1 #### [address] [id number] Hemoglobin (Bld) [Mass/Vol] 9.5 g/dL Low 13.5 - 17.5 [facility] Comment on above: Performed By: #### G APC1 #### [address] [id number] Lymphocytes (Bld) [#/Vol] 1.48 10*3/uL Normal 1.20 - 4.80 [facility] Comment on above: Performed By: #### G APC1 #### [address] [id number] Lymphocytes/100 WBC (Bld) 18.3 % Normal 13.0 - 44.0 [facility] Comment on above: Performed By: #### G APC1 #### [address] [id number] MCHC (RBC) [Mass/Vol] 32.5 g/dL Normal 32.0 - 36.0 [facility] Comment on above: Performed By: #### G APC1 #### [address] [id number] MCV (RBC) [Entitic vol] 93 fL Normal 80 - 100 [facility] Comment on above: Performed By: #### G APC1 #### [address] [id number] Monocytes (Bld) [#/Vol] 0.53 10*3/uL Normal 0.10 - 1.00 [facility] Comment on above: Performed By: #### G APC1 #### [address] [id number] Monocytes/100 WBC (Bld) 6.6 % Normal 2.0 - 10.0 [facility] Comment on above: Performed By: #### G APC1 #### [address] [id number] Neutrophils (Bld) [#/Vol] 5.42 10*3/uL Normal 1.20 - 7.70 [facility] Comment on above: Performed By: #### G APC1 #### [address] [id number] Neutrophils/100 WBC (Bld) 67.0 % Normal 40.0 - 80.0 [facility] Comment on above: Performed By: #### G APC1 #### [address] [id number] Platelets (Bld) [#/Vol] 290 10*3/uL Normal 150 - 450 [facility] Comment on above: Performed By: #### G APC1 #### [address] [id number] RBC 3.14 x10E12/L Low 4.50 - 5.90 [facility] Comment on above: Performed By: #### G APC1 #### [address] [id number] WBC (Bld) [#/Vol] 8.1 10*3/uL Normal 4.4 - 11.3 [facility] Comment on above: Performed By: #### G APC1 #### [address] [id number] COMPREHENSIVE PANELon 2021 Albumin [Mass/Vol] 4.3 g/dL Normal 3.4 - 5.0 [facility] Comment on above: Performed By: #### R ENAL #### [address] [id number] ALP [Catalytic activity/Vol] 62 U/L Normal 33 - 120 [facility] Comment on above: Performed By: #### R ENAL #### [address] [id number] ALT [Catalytic activity/Vol] 13 U/L Normal 10 - 52 [facility] Comment on above: Result Comment: Lalita ents treated with Sulfasalazine may generate falsely decreased results for ALT. Performed By: #### R ENAL #### [address] [id number] Anion gap [Moles/Vol] 18 mmol/L Normal 10 - 20 [facility] Comment on above: Performed By: #### R ENAL #### [address] [id number] AST [Catalytic activity/Vol] 14 U/L Normal 9 - 39 [facility] Comment on above: Performed By: #### R ENAL #### [address] [id number] Bilirubin [Mass/Vol] 0.3 mg/dL Normal 0.0 - 1.2 [facility] Comment on above: Performed By: #### R ENAL #### [address] [id number] Calcium [Mass/Vol] 8.6 mg/dL Normal 8.6 - 10.3 [facility] Comment on above: Performed By: #### R ENAL #### [address] [id number] Chloride [Moles/Vol] 104 mmol/L Normal 98 - 107 [facility] Comment on above: Performed By: #### R ENAL #### [address] [id number] Creatinine [Mass/Vol] 7.33 mg/dL High 0.50 - 1.30 [facility] Comment on above: Performed By: #### R ENAL #### [address] [id number] GFR/1.73 sq M.predicted among non-blacks MDRD (S/P/Bld) [Vol rate/Area] 10 mL/min/{1.73_m2} Abnormal >90 [facility] Comment on above: Result Comment: CALC ULATIONS OF ESTIMATED GFR ARE PERFORMED USING THE 2020 CKD-EPI STUDY REFIT EQUATION WITHOUT THE RACE VARIABLE FOR THE IDMS-TRACEABLE CREATININE METHODS. https://jasn.asnjournals.org/content//ASN.260766 9151 Performed By: #### R ENAL #### [address] [id number] Glucose [Mass/Vol] 89 mg/dL Normal 74 - 99 [facility] Comment on above: Performed By: #### R ENAL #### [address] [id number] HCO3 (Bld) [Moles/Vol] 21 mmol/L Normal 21 - 32 [facility] Comment on above: Performed By: #### R ENAL #### [address] [id number] Potassium [Moles/Vol] 4.7 mmol/L Normal 3.5 - 5.3 [facility] Comment on above: Performed By: #### R ENAL #### [address] [id number] Protein [Mass/Vol] 6.7 g/dL Normal 6.4 - 8.2 [facility] Comment on above: Performed By: #### R ENAL #### [address] [id number] Sodium [Moles/Vol] 138 mmol/L Normal 136 - 145 [facility] Comment on above: Performed By: #### R ENAL #### [address] [id number] Urea nitrogen [Mass/Vol] 66 mg/dL High 6 - 23 [facility] Comment on above: Performed By: #### R ENAL #### [address] [id number] Covid 19 Resultson 2 SARS-CoV-2 (COVID-19) RNA MIGUEL+probe Ql (Unsp spec) NEGATIVE COVID-19 Test Coronaviruses are common world-wide and are the cause of many common colds. SARS-COV2 is a new coronavirus that began circulating worldwide in 2019 so we are calling it COVID-19. It has been estimated that four out of five patients with COVID-19 will recover at home without the need for medical attention. Symptoms of COVID-19 may include cough, fever, shortness of breath, loss of taste or smell and other flu-like symptoms including chills, sore muscles, sore throat, and headache. Severe illness is more common in older people and people with other health problems such as high blood pressure, obesity, and immune system problems. If the test is positive, you have COVID-19. You will be contacted by the ordering physicians office and instructed to remain on home isolation, in accordance with CDC guidelines. You may also be contacted by the [facility] to see if any of your close contacts may have been exposed to the virus and need to quarantine. If the test is negative, you likely do not have COVID-19 at this time, but you still may have a different illness that can spread to other people (like Influenza, or the Flu) and could still be at risk for getting COVID-19. We recommend that you stay away from other people to limit the spread of illness until your symptoms are improving and you are fever-free for 24 hours without the use of fever lowering medications such as acetaminophen or ibuprofen. No test is 100% accurate so if you are still concerned you may have COVID-19, talk to your doctor about the need to continue to stay away from others. Medicines Unless your provider told you not to use the following: Acetaminophen (Tylenol and others) is generally safe. Anti-inflammatory medications, such as Ibuprofen (Advil or Motrin) or Naproxen (Aleve) can also be used. Nofr-ncw-xqpyrht cough and cold medicines can be used according to the instructions on the package. Some kehb-kab-eviebqb medicines also contain acetaminophen. Make sure you are not taking more than your recommended dose. For those not hospitalized, there is no specific treatment available for this illness. Antibiotics do not treat Coronaviruses. Follow-Up Follow up with your doctor by scheduling a virtual visit or consider follow-up at one of our urgent care fever clinics. If you are having difficulty breathing, or are very weak and having difficulty standing, this is a medical emergency. Call 911 or have someone take you to the nearest emergency room immediately. If possible, wear a facemask. Additional guidance from the CDC for patients who tested POSITIVE for COVID-19 How to isolate: Isolate yourself in a specific room at home and limit your contact with others. Use a separate bathroom from other members of the household, when possible. Leave home only to get essential medical care. Do not go to work, school or public areas. Avoid using public transportation, ride-sharing, or taxis. Restrict contact with pets and other animals. If you must care for your pet or be around animals while you are sick, wash your hands before and after your interaction and wear a facemask. Make sure that shared spaces in the home have good airflow, such as by an air conditioner or an opened window, weather permitting. Personal Hygiene Procedures: Wear a face mask when in the same room as other people or pets. If a face mask interferes with your breathing, others should wear a mask when sharing space with you. Frequent hand-washing: wash your hands with soap and water for at least 20 seconds. If soap and water are not available, use alcohol-based hand equipment associate. Avoid touching your eyes, nose, and mouth with unwashed hands. Household Hygiene Procedures: Avoid sharing personal household items such as dishes, glassware, cups, eating utensils, towels or bedding with other people or pets in your home. After use, these items should be washed with soap and hot water. Disinfect all high-touch surfaces every day with antibacterial cleaning solutions such as Lysol wipes, bleach, cleansers, etc. High-touch surfaces include tabletops, doorknobs, bathroom fixtures, toilets, phones, keyboards, tablets and bedside tables. Immediately clean any surfaces that may have blood, poop or body fluids on them, using antibacterial cleaning solutions such as Lysol wipes, bleach, cleansers, etc. If clothing or bedding come into contact with blood, poop or body fluids, they should be washed immediately. Follow the directions on the laundry detergent and clothing labels but hot water is recommended when possible. Stopping home isolation precautions: If possible, consult your doctor before stopping home isolation precautions. According to the CDC, you can discontinue home isolation precautions when you have met both of these criteria: Your fever and respiratory symptoms have been gone for 24 shayne (more content not included)... Normal [facility] INFLUENZA A/B, COVID 2019 PC R,SYMPTOMATICon 03-04-2022 INFLUENZA A, PCR Not detected Normal Not Detected [facility] Comment on above: Result Comment: Resp iratory virus testing is performed routinely by PCR for Influenza A/B and RSV. Not Detected results do not preclude Influenza A/B or RSV infections since the adequacy of sample collection or low viral burden may impact the clinical sensitivity of this test method. Performed By: #### M G #### [address] [id number] INFLUENZA B, PCR Not detected Normal Not Detected [facility] Comment on above: Result Comment: Resp iratory virus testing is performed routinely by PCR for Influenza A/B and RSV. Not Detected results do not preclude Influenza A/B or RSV infections since the adequacy of sample collection or low viral burden may impact the clinical sensitivity of this test method. Performed By: #### M G #### [address] [id number] SARS-CoV-2 (COVID-19) RNA MIGUEL+probe Ql (Unsp spec) Not detected Normal Not Detected [facility] Comment on above: Result Comment: . This test has received Emergency Use Authorization (EUA) and has been verified by [facility]. This test is only authorized for the duration of time that circumstances exist to justify the authorization of the emergency use of in vitro diagnostic tests for the detection of SARS-CoV-2 virus and/or diagnosis of COVID-19 infection under section 564(b)(1) of the Act, 21 U.S.C. 360bbb-3(b)(1), unless the authorization is terminated or revoked sooner. [facility] is certified under CLIA-88 as qualified to perform high complexity testing. Testing is performed in the [facility] laboratory located at [address] [place], [place] [address]. SARS-CoV-2/Flu/RSV Multiplex Test: Fact sheet for providers: https://www.fda.gov/media/401312/download Fact sheet for patients: https://www.fda.gov/media/259558/download Performed By: #### M G #### [address] [id number] Lab Specimen Source Nasal, Nasopharyngeal Normal [facility] Comment on above: Performed By: #### M G #### [address] [id number] LACTATEon 03-04-2022 Lactate [Moles/Vol] 0.5 mmol/L Normal 0.4 - 2.0 [facility] Comment on above: Result Comment: Shelbie puncture immediately after or during the administration of Metamizole may lead to falsely low results. Testing should be performed immediately prior to Metamizole dosing. Performed By: #### G APC1 #### [address] [id number] LIPASEon 03-04-2022 Lipase [Catalytic activity/Vol] 79 U/L Normal 9 - 82 [facility] Comment on above: Result Comment: Shelbie puncture immediately after or during the administration of Metamizole may lead to falsely low results. Testing should be performed immediately prior to Metamizole dosing. V-fftvkr-b-benzoquinone imine (metabolite of Acetaminophen) will generate erroneously low results in samples for patients that have taken toxic doses of acetaminophen. Performed By: #### T PS2 #### [address] [id number] PT/INRon 03-04-2022 PT Coag (PPP) [Time] 12.3 s Normal 9.8 - 13.4 [facility] Comment on above: Performed By: #### G APC1 #### [address] [id number] PT, INR 1.1 Normal 0.9 - 1.1 [facility] Comment on above: Performed By: #### G APC1 #### [address] [id number] Provider Note - ED v3on 02-16 Provider Note - ED v3 Provider Note: Chart Review ED NOTES ED NOTES: Chief Complaint: Nausea vomiting diarrhea flank pain History of Present Illness: This is a 22-year-old male presents with 2 to 3 days of nausea vomiting and diarrhea. He states as of late he has had loose watery stool with katiana red-colored. He is reporting some abdominal pain and flank pain more on the right than the left. States he has not urinated since yesterday. He does have a past medical history significant for Alport syndrome and hypertension which resulted in a recent admission to the hospital with acute kidney failure. Patient denies any fevers or chills no sick contacts. 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 Patient denies any chest pain or shortness of breath. No dizziness or lightheadedness reported. Review of Systems All systems negative except as noted in HPI or elsewhere in the chart Constitutional: no fever, chills, weakness, dizziness Eyes: no redness, discharge, vision change, pain ENT: no sore throat, nosebleeds, rhinorrhea, hearing loss, ear pain, ear discharge Cardiovascular: no chest pain, leg edema, palpitations Respiratory: no shortness of breath, cough, dyspnea on exertion, pleurisy, hemoptysis GI: +nausea,+ diarrhea,+ pain,+ vomiting, constipation, BRBPR, melena, heartburn : no dysuria, discharge, frequency,+ flank pain, hematuria, bleeding Musculoskeletal: no myalgia, neck/back pain, redness, arthralgia, inflammation Skin: no rash, bruising, contusions, swelling, lacerations, abrasions Neurological: no headache, numbness, change in function, weakness, AMS, paresthesias, speech change Psychiatric: no AMS, agitation, suicidal, confusion, depression, anxiety Metabolic: no fatigue, polyuria, hair change, dry skin, weakness, polydipsia, temperature intolerance Hematologic: no bleeding, nodes, bruising, petechiae Allergic: no rhinorrhea, sneezing, atopic dermatitis, frequent URIs PMFSH Nursing notes reviewed and confirmed by me. Past Medical History: Htn, Acute renal failure Past Surgical History: LMP: G P Tetanus: UTD Family History: no DM, HTN, CAD, CVA, Cancer Social History: no smoking, alcohol use, substance abuse, lives alone, marital status Allergies and Medications: See nurses notes. Physical Exam Constitutional: Vital signs per nursing notes. Well developed, well nourished. No acute distress. Young pale male evaluated in room 16 in the emergency department Psychiatric: alert and oriented to person, place, and time; no abnormalities of mood or affect; memory intact Eyes: PERRL; conjunctivae and lids normal; EOMI ENT: Mucous membranes, nasal mucosa, turbinates, and septum normal; mouth, tongue, and pharynx normal; pharynx without edema, exudate, or injection Neck: neck supple, no meningismus; trachea midline without deviation; no lymphadenopathy; no thyromegaly; carotid pulses even bilaterally Chest: no masses or tenderness, no discharge Respiratory: normal respiratory effort and excursion; no rales, rhonchi, or wheezes; equal air entry Cardiovascular: regular rate and rhythm; no murmurs, rubs or gallops; symmetric pulses; no edema; normal capillary refill; distal pulses present Neurological: normal speech; CN II-XII grossly intact; GI: no masses, and generalized all over tenderness, no rebound or guarding; no palpable, pulsatile mass; no organomegaly; no hernia; normal bowel sounds; (-) Windsor sign; (-) McBurneys sign; (bilateral +) CVA tenderness Musculoskeletal: normal gait and station; normal digits and nails; no cervical, thoracic or lumbar spine tenderness, there is bilateral muscular tenderness to to the thoracic and lumbar region to palpation; normal strength/tone; neurovascular status intact; (-) Homans sign; (-) straight leg raise Skin: normal to inspection; normal to palpation; no rash GCS: 15 HISTORY OF PRESENTING ILLNESS LAWSON is a 22 year old Male and was seen by me at 04-Mar-2022 08:29 for a chief complaint of flank pain (pt having right flank pain was admitted for 3 days with kidney failure states he cant keep anything down)(1). Triage Information: Most recent Vital Sign Value Date Temp (F): 97.7 03-04-2022 08:25 Temp (C): 36.5 03-04-2022 08:25 Heart Rate (beats/min): 93 03-04-2022 08:25 Respirations (breaths/min): 18 03-04-2022 08:25 SpO2 (%): 98 03-04-2022 08:25 BP Systolic (mm Hg): 167 03-04-2022 08:25 BP Diastolic (mm Hg): 96 03-04-2022 08:25 PAST MEDICAL HISTORY ALLERGIES/INTOLERANCES: No Known Allergies HEALTH HISTORY: No documented data. OUTPATIENT MEDICATIONS: Home Medications Review Status for Reconciliation: N/A Med Status: Patient Currently Takes Medications Drug Name: cloNIDine 0.1 mg oral tablet Instructions: 1 tab(s) orally 2 times a day Drug Name: amLODIPine 5 mg oral tablet Instructions: 1 tab(s) orally once a day Drug Name: carvedilol 12.5 mg ora (more content not included)... Normal [facility] Triage - EDon 03-04-2022 Triage - ED Chart Review: PRIMARY ASSESSMENT LAWSON DOYLE's primary assessment is Within Defined Limits. The airway is open and patent. Breathing spontaneous and unlabored with clear breath sounds bilaterally. Circulation is normal with good peripheral pulses. Skin is warm and dry and color is normal for race. ARRIVAL INFORMATION Means of Arrival: Ambulatory Mode of Arrival: private vehicle Arrival From: home CHIEF COMPLAINT LAWSON DOYLE is a Male patient with a chief complaint of flank pain (pt having right flank pain was admitted for 3 days with kidney failure states he cant keep anything down). Triage Date/Time: 04-Mar-2022 08:25 MISHA: 3 Pain Rating (0-10): 4 = Moderate Vital Signs: Temperature: 97.7F ( 36.5C) taken skin probe Blood Pressure: 167/96 Mean: Heart Rate: 93 Respiratory Rate: 18 Pulse Oximetry: 98% Height: 5 feet 10.00 inches. 177.8 CM Weight: 182.9 pounds. Calculated 83.0 kg. Calculated BMI (kg/m2): 26.255 Calculated BSA (m2) 2.02 Niyah Coma Scale: Best Eye Response: (E4) spontaneous Best Motor Response: (M6) obeys commands Best Verbal Response: (V5) oriented [place] Score: 15 Allergies: no Patient has homicidal thoughts: no Symptom Notes: . Symptoms Are POSITIVE For: flank pain and nausea. Symptoms Are Negative For: anorexia, chills, dysuria, fever, frequency, hematuria, malaise and urgency. Risk Screens Suicide Risk Screen In the Past Month: Have you wished you were or wished you could go to sleep and not wake up no In the Past Month: Have you had any actual thoughts of killing yourself no In Your Lifetime: Have you ever done anything, started to do anything, or prepared to do anything to end your life no Nickerson Fall Scale Screening Has the patient fallen before (or is the patient in the ED as a result of a fall) has not had a fall Does the patient have an impaired gait does not have impaired gait Is the patient cognitively impaired not cognitively impaired Interventions: Nickerson Fall Interventions: LOW INTERVENTIONS: *patient oriented to surroundings and call system, * patient/family falls education completed and documented, *patients fall status communicated during bedside handoff, *whiteboard updated, *mode of toileting discussed with patient, *bed in low position with brakes locked, *call light in reach, * non-skid footwear PAST MEDICAL HISTORY Immunization History: Last Known Tetanus Immunization: Greater than 5 years but less than 10 years TRAVEL HISTORY Travel History Coronavirus Screening: no exposure or symptoms Travel Exposure History: NO travel to International locations in the past 30 days PAIN Pain Scale Used: EDMUNDO Pain Rating (0-10): 4 = Moderate Past Medical History: Past Medical History Reviewedyes HTN: Past Medical History, Active DTaP- Xigeskabg-Inmjhxv-erpjm ular Pertussis: Immunizations, Active, 2019 SARS-CoV-2 (COVID-19): Immunizations, Active Electronic Signatures: Leanna Rider (STAFF N) (Signed 04-Mar-2022 08:28) Authored: Quick Triage, Risk Screens, Pain, Arrival, ABCD, Immunizations, Travel History, Chart Review, Scores, Past Medical History Last Updated: 04-Mar-2022 08:28 by Leanna Rider (STAFF N) Normal [facility] UA MICROSCOPICon 03-04-2022 BACTERIA 1+ /HPF Abnormal [facility] Comment on above: Performed By: #### R ENAL #### [address] [id number] HYALINE CAST OCC Abnormal [facility] Comment on above: Performed By: #### R ENAL #### [address] [id number] Mucus Ql (Urine sed) 1+ /LPF Normal [facility] Comment on above: Performed By: #### R ENAL #### [address] [id number] RBC 34 /HPF Abnormal 0-5 [facility] Comment on above: Performed By: #### R ENAL #### [address] [id number] WBC 2 /HPF Normal 0-5 [facility] Comment on above: Performed By: #### R ENAL #### [address] [id number] URINALYSIS WITH CULTURE IF I NDICATEDon 03-04-2022 Appearance (U) CLEAR Normal CLEAR [facility] Comment on above: Performed By: #### T PS2 #### [address] [id number] Bilirubin Ql (U) Negative Normal NEGATIVE [facility] Comment on above: Performed By: #### T PS2 #### [address] [id number] Color (U) STRAW Normal STRAW,YELLOW [facility] Comment on above: Performed By: #### T PS2 #### [address] [id number] Glucose Ql (U) Negative Normal NEGATIVE [facility] Comment on above: Performed By: #### T PS2 #### [address] [id number] Hemoglobin Ql (U) LARGE (3+) Abnormal NEGATIVE [facility] Comment on above: Performed By: #### T PS2 #### [address] [id number] Ketones Ql (U) Negative Normal NEGATIVE [facility] Comment on above: Performed By: #### T PS2 #### [address] [id number] Leukocyte esterase Test strip Ql (U) Negative Normal NEGATIVE [facility] Comment on above: Performed By: #### T PS2 #### [address] [id number] Nitrite Ql (U) Negative Normal NEGATIVE [facility] Comment on above: Performed By: #### T PS2 #### [address] [id number] pH (U) 5.0 [pH] Normal 5.0 - 8.0 [facility] Comment on above: Performed By: #### T PS2 #### [address] [id number] Protein Ql (U) >=300 + Abnormal NEGATIVE [facility] Comment on above: Performed By: #### T PS2 #### [address] [id number] Specific gravity (U) [Rel density] 1.020 Normal 1.005 - 1.035 [facility] Comment on above: Performed By: #### T PS2 #### [facility] [address] [place], [place] [id number] Urobilinogen (U) [Mass/Vol] mg/dL Normal 0.0 - 1.9 [facility] Comment on above: Performed By: #### T PS2 #### [address] [id number] Clinical Event Note-ED Post Discharge Result Follow Up: Atteon 02-22-2022 Clinical Event Note-ED Post Discharge Result Follow Up: Atte Clinical Event: Clinical Event Note: TopicED Post Discharge Result Follow Up: Attempt # 1, Complete : Wound: Group B strep, Staph Aureus Details ED Post-Discharge Team was notified of final results on this patient's wound culture. The patient was admitted to [facility] from 02/18/33 to 02/21/22. Inpatient provider discharged patient on appropriate therapy. No further follow up needed from ED PD Team. If there are any other questions for the ED Post-Discharge Culture Follow Up Team, please contact [phone]. . Naomi Thomas PharmD, [facility] PGY1 Medical Geneticist Meds Electronic Signatures: Naomi Thomas ([facility]) (Signed 22-Feb-2022 12:20) Authored: Clinical Event Note Nicki Vega (PharmD) (Signed 23-Feb-2022 08:19) Co-Signer: Clinical Event Note Last Updated: 23-Feb-2022 08:19 by Nicki Vega (PharmD) Normal [facility] CBCon 02-21-2022 Erythrocyte distribution width (RBC) [Ratio] 11.9 % Normal 11.5 - 14.5 [facility] Comment on above: Performed By: #### C BC ####[facility] [place], [place] [id number] Hematocrit (Bld) [Volume fraction] 24.8 % Low 41.0 - 52.0 [facility] Comment on above: Performed By: #### C BC ####[facility] [place], [place] [id number] Hemoglobin (Bld) [Mass/Vol] 8.1 g/dL Low 13.5 - 17.5 [facility] Comment on above: Performed By: #### C BC ####[facility] [place], [place] [id number] MCHC (RBC) [Mass/Vol] 32.7 g/dL Normal 32.0 - 36.0 [facility] Comment on above: Performed By: #### C BC ####[facility] [place], [place] [id number] MCV (RBC) [Entitic vol] 92 fL Normal 80 - 100 [facility] Comment on above: Performed By: #### C BC ####[facility] [place], [place] [id number] Platelets (Bld) [#/Vol] 293 10*3/uL Normal 150 - 450 [facility] Comment on above: Performed By: #### C BC ####[facility] [place], [place] [id number] RBC 2.69 x10E12/L Low 4.50 - 5.90 [facility] Comment on above: Performed By: #### C BC ####[facility] [place], [place] [id number] WBC (Bld) [#/Vol] 9.2 10*3/uL Normal 4.4 - 11.3 [facility] Comment on above: Performed By: #### C BC ####[facility] [place], [place] [id number] COAGULATION SCREENon 022 aPTT Coag (Bld) [Time] 33 s Normal 26 - 39 [facility] Comment on above: Result Comment: THE APTT IS NO LONGER USED FOR MONITORING UNFRACTIONATED HEPARIN THERAPY. FOR MONITORING HEPARIN THERAPY, USE THE HEPARIN ASSAY. Performed By: #### R ENAL #### [facility] [address] [place], [place] [phone] PT Coag (PPP) [Time] 12.1 s Normal 9.8 - 13.4 [facility] Comment on above: Performed By: #### R ENAL #### [address] [id number] PT, INR 1.0 Normal 0.9 - 1.1 [facility] Comment on above: Performed By: #### R ENAL #### [address] [id number] COMPREHENSIVE PANELon 2021 Albumin [Mass/Vol] 3.4 g/dL Normal 3.4 - 5.0 [facility] Comment on above: Performed By: #### R ENAL #### [address] [id number] ALP [Catalytic activity/Vol] 67 U/L Normal 33 - 120 [facility] Comment on above: Performed By: #### R ENAL #### [address] [id number] ALT [Catalytic activity/Vol] 5 U/L Low 10 - 52 [facility] Comment on above: Result Comment: Lalita ents treated with Sulfasalazine may generate falsely decreased results for ALT. Performed By: #### R ENAL #### [address] [id number] Anion gap [Moles/Vol] 15 mmol/L Normal 10 - 20 [facility] Comment on above: Performed By: #### R ENAL #### [address] [id number] AST [Catalytic activity/Vol] 9 U/L Normal 9 - 39 [facility] Comment on above: Performed By: #### R ENAL #### [address] [id number] Bilirubin [Mass/Vol] 0.3 mg/dL Normal 0.0 - 1.2 [facility] Comment on above: Performed By: #### R ENAL #### [address] [id number] Calcium [Mass/Vol] 8.6 mg/dL Normal 8.6 - 10.3 [facility] Comment on above: Performed By: #### R ENAL #### [address] [id number] Chloride [Moles/Vol] 108 mmol/L High 98 - 107 [facility] Comment on above: Performed By: #### R ENAL #### [address] [id number] Creatinine [Mass/Vol] 7.11 mg/dL High 0.50 - 1.30 [facility] Comment on above: Performed By: #### R ENAL #### [address] [id number] GFR/1.73 sq M.predicted among non-blacks MDRD (S/P/Bld) [Vol rate/Area] 10 mL/min/{1.73_m2} Abnormal >90 [facility] Comment on above: Result Comment: CALC ULATIONS OF ESTIMATED GFR ARE PERFORMED USING THE 2020 CKD-EPI STUDY REFIT EQUATION WITHOUT THE RACE VARIABLE FOR THE IDMS-TRACEABLE CREATININE METHODS. https://jasn.asnjournals.org/content//ASN.218503 6848 Performed By: #### R ENAL #### [address] [id number] Glucose [Mass/Vol] 84 mg/dL Normal 74 - 99 [facility] Comment on above: Performed By: #### R ENAL #### [address] [id number] HCO3 (Bld) [Moles/Vol] 22 mmol/L Normal 21 - 32 [facility] Comment on above: Performed By: #### R ENAL #### [address] [id number] Potassium [Moles/Vol] 4.9 mmol/L Normal 3.5 - 5.3 [facility] Comment on above: Performed By: #### R ENAL #### [address] [id number] Protein [Mass/Vol] 6.0 g/dL Low 6.4 - 8.2 [facility] Comment on above: Performed By: #### R ENAL #### [address] [id number] Sodium [Moles/Vol] 140 mmol/L Normal 136 - 145 [facility] Comment on above: Performed By: #### R ENAL #### [address] [id number] Urea nitrogen [Mass/Vol] 69 mg/dL High 6 - 23 [facility] Comment on above: Performed By: #### R ENAL #### [address] [id number] Consult-Infectious Diseaseon 02-21-2022 Consult-Infectious Disease Service: Service: Infectious Disease Consult: Consult requested by (Attending Name): Brook Carrasco Reason: Groub B strep foot History of Present Illness: HPI: LAWSON DOYLE is a 21 year old Male ID Consult: HPI 21-year-old male with sore throat, hoarseness, dry cough, found to have infected right big toe due to ingrown toenail. He had not been on any recent antibiotics. CX with GBS. Non-smoker. On admission, he was noted to be in acute renal failure with a creatinine 6.68 and GFR of 12. He was also noted to be hypertensive, currently being worked up for both PMH: Hypertension Surg Hx: Renal biopsy 2018 Fam Hx: multiple family members with ESRD on HD and several who are s/p transplant (no known diagnosis) Social Hx: non smoker. Denies drug and alcohol use. All past medical history, family history, allergies, and social history reviewed per medical records Review of Systems: All 14 review of systems were discussed with the patient and are negative other than as stated above Physical Exam: Seen in ICU. His upper respiratory symptoms have resolved. General: Patient appears in no acute distress, cooperative Skin: no new rashes or erythema or induration HEENT: EOMI, MMM, Neck is supple Heart: S1 S2 Lungs: bilaterally clear to auscultation Abdomen: soft, ND, NTTP, +BS Extrem: RLE in dressing right now. Neuro exam: CN II-XII intact Labs: I have reviewed all lab results by electronic record, including most recent CBC, metabolic panel, and pertinent abnormalities were addressed from an infectious disease perspective. WBC trends are being monitored. Radiology: I have reviewed imaging results per electronic record and most pertinent abnormalities are being addressed from an infectious disease standpoint. Assessment: GBS infection with infected ingrown toenail URI - resolving, likely viral syndrome DENNY on CKD - etiology Hypertension Plan: OK for Clindamycin x 7 days and stop Work up in progress for HTN and DENNY Ok to transfer out of the ICU *. Review Family/Social History and ROS: Social History: Smoking Status: never smoker (1) Alcohol Use: denies(1) Drug Use: denies (1) Allergies: No Known Allergies: Consult Status: Consult Order ID: [id number] Electronic Signatures: Phylicia Costello) (Signed 20-Feb-2022 23:53) Authored: Service, History of Present Illness, Review Family/Social History and ROS, Allergies, Assessment/Recommendati ons, Note Completion Last Updated: 20-Feb-2022 23:53 by Phylicia Costello () References: 1. Data Referenced From Consult-Podiatry 19-Feb-2022 16:58 Normal [facility] Daily Progress Note-Infectio us Diseaseon 02-21-2022 Daily Progress Note-Infectious Disease Service: Infectious Disease History of Present Illness: History Present Illness: HPI: LAWSON DOYLE is a 21 year old Male HPI 21-year-old male with sore throat, hoarseness, dry cough, found to have infected right big toe due to ingrown toenail. He had not been on any recent antibiotics. CX with GBS. Non-smoker. On admission, he was noted to be in acute renal failure with a creatinine 6.68 and GFR of 12. He was also noted to be hypertensive, currently being worked up for both PMH: Hypertension Surg Hx: Renal biopsy 2018 Fam Hx: multiple family members with ESRD on HD and several who are s/p transplant (no known diagnosis) Social Hx: non smoker. Denies drug and alcohol use. All past medical history, family history, allergies, and social history reviewed per medical records Review of Systems: All 14 review of systems were discussed with the patient and are negative other than as stated above Physical Exam: discharge is pending. Patient wants to go home. General: Patient appears in no acute distress, cooperative Skin: no new rashes or erythema or induration HEENT: EOMI, MMM, Neck is supple Heart: S1 S2 Lungs: bilaterally clear to auscultation Abdomen: soft, ND, NTTP, +BS Extrem: RLE in dressing right now. Neuro exam: CN II-XII intact Labs: I have reviewed all lab results by electronic record, including most recent CBC, metabolic panel, and pertinent abnormalities were addressed from an infectious disease perspective. WBC trends are being monitored. Radiology: I have reviewed imaging results per electronic record and most pertinent abnormalities are being addressed from an infectious disease standpoint. Assessment: GBS infection with infected ingrown toenail, the new culture is prelim growing staph. I have communicated this to the patient. He is to make follow up appointment in one week with ID - number provided directly to the patient and in the meantime, he is going home on clindamycin URI - resolving, likely viral syndrome DENNY on CKD - etiology Hypertension Plan: OK for Clindamycin x 7 days and stop Work up in progress for HTN and DENNY Subjective Data: RUBENSLAWSON Conor is a 21 year old Male who is Hospital Day # 4. Objective Data: Objective Information: T PRBPMAPSpO2 [id number] 9% Date/Time02/21 12: 12: 12: 12: 20: 12:22 Range(36.6C - 37.1C ) (72 - 105 ) (10 - 23 ) (118 - 164 )/ (42 - 98 ) (71 - 125 ) (93% - 99% ) Highest temp of 37.1 C was recorded at 02/20 17:43 Pain reported at 02/21 14:00: 0 = None ---- Intake and Output ----- Mn/Dy/Year TimeIntakeOutputNet Feb 20, 2022 10:00 [id number] Feb 20, 2022 2:00 [id number] The Intake and Output Totals for the last 24 hours are: IntakeOutputNet [id number] Recent Lab Results: Results: CBC: 02/21/2022 06:25 \\ Hgb / \\ 8.1 L / WBC Plt 9.2 293 / Hct \\ / 24.8 L \\ RBC: 2.69 L MCV: 92 CMP: 02/21/2022 06:25 NA+ Cl- BUN / 140 108 H 69 H / --------- Glucose ---- 84 K+ HCO3- Creat \\ 4.9 22 7.11 H \\ \\ T Bili / \\ 0.3 / AST x ---- x ALT 9 x ---- x 5 L / Alk P \\ / 67 \\ Calcium : 8.6 Anion Gap : 15 Albumin : 3.4 T Protein : 6.0 L RFP: 02/21/2022 06:25 NA+ Cl- BUN / Canceled Canceled Canceled / --------- Glucose ---- Canceled K+ HCO3- Creat \\ Canceled Canceled Canceled \\ Calcium : CanceledAnion Gap : Canceled Albumin : Canceled Phos : Canceled The performance characteristics of phosphorus testing in heparinized plasma have been validated by the individual laboratory site where testing is performed. Testing on heparinized plasma is not approved by the FDA; however, suc Coagulation: 02/21/2022 06:25 PT / 12.1 / -------< INR < 1.0 PTT\\ 33 \\ Assessment and Plan: Code Status: Code StatusFull Code Electronic Signatures: Phylicia Costello) (Signed 22-Feb-2022 20:22) Authored: Service, History of Present Illness, Subjective Data, Objective Data, Assessment and Plan, Note Completion Last Updated: 22-Feb-2022 20:22 by Phylicia Costello () Normal [facility] Daily Progress Note-Nephrolo benjamin 02-21-2022 Daily Progress Note-Nephrology Service: Nephrology Subjective Data: LAWSON DOYLE is a 21 year old Male who is Hospital Day # 4. Creatinine down slightly. Patient feels fine. No uremic type symptoms. Objective Data: Objective Information: T PRBPMAPSpO2 [id number] 9% Date/Time02/21 12: 12: 12: 12: 20: 12:22 Range(36.6C - 37.1C ) (72 - 105 ) (10 - 23 ) (118 - 164 )/ (42 - 98 ) (71 - 125 ) (93% - 99% ) Highest temp of 37.1 C was recorded at 02/20 17:43 Pain reported at 02/20 22:30: 0 = None ---- Intake and Output ----- Mn/Dy/Year TimeIntakeOutputNet Feb 20, 2022 10:00 [id number] Feb 20, 2022 2:00 [id number] The Intake and Output Totals for the last 24 hours are: IntakeOutputNet [id number] Physical Exam by System: Constitutional: awake/alert/oriented x3, no distress, alert and cooperative Head/Neck: Neck supple, no apparent injury, No JVD, trachea midline, no bruits Respiratory/Thorax: no resp distress. lungs are clear to auscultation Cardiovascular: Regular, rate and rhythm, no murmurs, 2+ equal pulses of the extremities, normal S 1and S 2 Gastrointestinal: Nondistended, soft, non-tender, no rebound tenderness or guarding, no masses palpable, no organomegaly, +BS, no bruits Musculoskeletal: ROM intact Extremities: Foot infection Neurological: alert and oriented x3 Psychological: Appropriate mood and behavior Skin: Warm and dry, no lesions, no rashes Medication: Medications: ALTERNATIVE MEDICINES: 1. Melatonin: 6 mg Oral At Bedtime PRN ANTI-INFECTIVES: 1. Clindamycin: 300 mg Oral Every 6 Hours BIOLOGICALS: 1. Epoetin Trey (Non-ESRD) Injectable: 52293 unit(s) SubCutaneous Weekly CARDIOVASCULAR AGENTS: 1. cloNIDine (CATAPRES): 0.1 mg Oral 2 Times a Day 2. Carvedilol: 12.5 mg Oral 2 Times a Day 3. amLODIPine (NORVASC): 5 mg Oral Daily CENTRAL NERVOUS SYSTEM AGENTS: 1. Acetaminophen: 650 mg Oral Every 4 Hours PRN 2. Acetaminophen: 650 mg Oral Every 4 Hours PRN 3. Morphine Injectable: 2 mg IntraVenous Push Every 4 Hours PRN 4. Ondansetron Injectable: 4 mg IntraVenous Push Every 4 Hours PRN COAGULATION MODIFIERS: 1. Heparin SubCutaneous: 5000 unit(s) SubCutaneous Every 8 Hours GASTROINTESTINAL AGENTS: 1. Magnesium Hydroxide -Al Hydrox -Simethicone Oral Liquid: 30 mL Oral Every 6 Hours PRN 2. Docusate: 100 mg Oral 2 Times a Day 3. Magnesium Sulfate Topical: 1 application(s) Topical 2 Times a Day 4. Pantoprazole: 40 mg Oral Daily NUTRITIONAL PRODUCTS: 1. Sodium Chloride 0.9% Infusion: 1000 mL IntraVenous TOPICAL AGENTS: 1. Mupirocin 2%: 1 application(s) Topical Daily Recent Lab Results: Results: CBC: 02/21/2022 06:25 \\ Hgb / \\ 8.1 L / WBC Plt 9.2 293 / Hct \\ / 24.8 L \\ RBC: 2.69 L MCV: 92 CMP: 02/21/2022 06:25 NA+ Cl- BUN / 140 108 H 69 H / --------- Glucose ---- 84 K+ HCO3- Creat \\ 4.9 22 7.11 H \\ \\ T Bili / \\ 0.3 / AST x ---- x ALT 9 x ---- x 5 L / Alk P \\ / 67 \\ Calcium : 8.6 Anion Gap : 15 Albumin : 3.4 T Protein : 6.0 L RFP: 02/21/2022 06:25 NA+ Cl- BUN / Canceled Canceled Canceled / --------- Glucose ---- Canceled K+ HCO3- Creat \\ Canceled Canceled Canceled \\ Calcium : CanceledAnion Gap : Canceled Albumin : Canceled Phos : Canceled The performance characteristics of phosphorus testing in heparinized plasma have been validated by the individual laboratory site where testing is performed. Testing on heparinized plasma is not approved by the FDA; however, suc Coagulation: 02/21/2022 06:25 PT / 12.1 / -------< INR < 1.0 PTT\\ 33 \\ Radiology Results: Results: Impression: 1. Trace amount nonspecific perinephric fluid adjacent to the upper pole of the right kidney. 2. No hydronephrosis is evident. Ultrasound Renal Bilateral [Feb 19 2022 10:24AM] Impression: No acute fracture or malalignment. Signed by Brady Carrizales DO Xray Foot Complete Min 3 View [Feb 18 2022 5:23PM] Assessment and Plan: Code Status: Code StatusFull Code Assessment: 21-year-old man with CKD stage V with a GFR currently of 11 cc/min. 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 He had a kidney biopsy that had 0 glomeruli so nondiagnostic. Last seen in 2018. Extensive family history of end-stage renal disease with male scanning end-stage renal disease before the age of 20. Had no medical follow-up over the last several years. 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 Normal [facility] Daily Progress Note-Podiatry on 02-21-2022 Daily Progress Note-Podiatry Service: Podiatry Subjective Data: LAWSON DOYLE is a 21 year old Male who is Hospital Day # 4. He was seen bedside soaking his foot for status post nail avulsion secondary to infection and also wound to the dorsum of his foot. He denies pain, fever, chill, nausea, vomiting or current diarrhea. Objective Data: Objective Information: T PRBPMAPSpO2 [id number] 99% Date/Time02/20 20: 20: 20: 20: 20: 20:09 Range(36.6C - 37.1C ) (72 - 105 ) (10 - 23 ) (118 - 164 )/ (42 - 98 ) (71 - 125 ) (93% - 99% ) Highest temp of 37.1 C was recorded at 02/20 17:43 Pain reported at 02/20 22:30: 0 = None ---- Intake and Output ----- Mn/Dy/Year TimeIntakeOutputNet Feb 20, 2022 10:00 [id number] Feb 20, 2022 2:00 [id number] The Intake and Output Totals for the last 24 hours are: IntakeOutputNet [id number] T PRBPMAPSpO2 [id number] 99% Date/Time02/21 20: 20: 20: 20: 20: 20:09 Range(36.6C - 37.1C ) (72 - 105 ) (10 - 23 ) (118 - 164 )/ (42 - 98 ) (71 - 125 ) (93% - 99% ) Highest temp of 37.1 C was recorded at 02/20 17:43 Physical Exam Narrative: Physical Exam: Alert and oriented x3 Vascular: DP and PT pulses palpable b/l. CFT <3 seconds to digits b/l. Hair growth noted. No varicosities. Derm: Right hallux nail avulsion site without purulent drainage from this entire procedure site. Hypertrophic granular tissue to medial and lateral nail fold. Pain to palpation scant. Localized edema, and resolved localized erythema to the adjacent nail fold, no increased warmth. No lymphangitis. No crepitus or fluctuance. no odor necrosis or deep tissue exposure. Dorsal right foot with granular base and excoriation without deep tissue exposure or local signs of infection webspaces 1-4 b/l clean, dry, and intact. MSK: 5/5 strength to bilateral lower extremity muscle groups. no fluctuance or bogginess on palpation. No pain to palpate the adjacent hallux interphalangeal joint Neuro: Light touch intact bilateral. Protective sensation intact bilateral. No clonus noted. No babinski. Recent Lab Results: Results: CBC: 02/21/2022 06:25 \\ Hgb / \\ 8.1 L / WBC Plt 9.2 293 / Hct \\ / 24.8 L \\ RBC: 2.69 L MCV: 92 CMP: 02/21/2022 06:25 NA+ Cl- BUN / 140 108 H 69 H / --------- Glucose ---- 84 K+ HCO3- Creat \\ 4.9 22 7.11 H \\ \\ T Bili / \\ 0.3 / AST x ---- x ALT 9 x ---- x 5 L / Alk P \\ / 67 \\ Calcium : 8.6 Anion Gap : 15 Albumin : 3.4 T Protein : 6.0 L RFP: 02/21/2022 06:25 NA+ Cl- BUN / Canceled Canceled Canceled / --------- Glucose ---- Canceled K+ HCO3- Creat \\ Canceled Canceled Canceled \\ Calcium : CanceledAnion Gap : Canceled Albumin : Canceled Phos : Canceled The performance characteristics of phosphorus testing in heparinized plasma have been validated by the individual laboratory site where testing is performed. Testing on heparinized plasma is not approved by the FDA; however, suc Coagulation: 02/21/2022 06:25 PT / 12.1 / -------< INR < 1.0 PTT\\ 33 \\ I have reviewed these laboratory results: Comprehensive Metabolic Panel 21-Feb-2022 06:25:00 ResultValue Glucose, Serum 84 NA 140 K 4.9 CL 108 H Bicarbonate, Serum 22 Anion Gap, Serum 15 BUN 69 H CREAT 7.11 H GFR Male 10 A Calcium, Serum 8.6 ALB 3.4 ALKP 67 T Pro 6.0 L T Bili 0.3 Alanine Aminotransferase, Serum 5 L Aspartate Transaminase, Serum 9 Complete Blood Count 20-Feb-2022 04:50:00 ResultValue White Blood Cell Count 12.9 H Red Blood Cell Count 2.65 L HGB 8.1 L HCT 24.4 L MCV 92 MCHC 33.2 PLT 278 RDW-CV 11.9 Radiology Results: Results: No Results have been selected. Please select Results from the Available Results list before marking as Reviewed. Impression: No acute fracture or malalignment. 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 Discussed findings with patient this morning. He is performing wound soaking at this time. Clinical improvement and stability are noted. to continue wound care as noted below. Agree with short course clindamycin; no cultureable drainage or infected tissue remaining R hallux after nail avulsion Will need f/u within 10-14 days of discharge with podi (more content not included)... 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 May shower. May return to school/work Instructions: Call Provider If (Homegoing Patients): Fever of 100.4 F (38 C) or higher. Acting very sleepy and difficult to awaken. Vomiting (throwing up) and not able to eat or drink for 12 hours. 3 or more loose, watery bowel movements in 24 hours (diarrhea). Any new concerning symptoms. Provider FINAL REVIEW of Orders: Final Review: Final Review of Medication Reconciliation and Orders Completedby Physician Reviewing ProviderBrook Carrasco MD at 21-Feb-2022 16:10:24 Appointments: Follow-Up Appointment 01: Physician/Dept/ServiceD mikhail Grant Reason for Referralfollow up ckd stage 5 Call to Schedule in2 weeks [address] Phone [phone] Electronic Signatures: Brook Carrasco) (Signed 21-Feb-2022 16:10) Authored: Discharge Orders, Provider FINAL REVIEW of Orders Darryn Grant) (Signed 21-Feb-2022 13:30) Authored: Discharge Orders, Appointments, Gold Form - State Archivist Summary Last Updated: 21-Feb-2022 16:10 by Brook Carrasco) Normal [facility] HEPATITIS B SURF ABon 2021 HEP B SURF AB 4.6 mIU/mL Normal <10 [facility] Comment on above: Result Comment: INTE RPRETIVE CRITERIA: <10 mIU/mL....NONREACTIVE >=10 mIU/mL...REACTIVE . Biotin interference may cause falsely decreased results. Patients taking a Biotin dose of up to 5 mg/day should refrain from taking Biotin for 24 hours before sample collection. Providers may contact their local laboratory for further information. Performed By: #### H BAB3 ####[id number] [place] [address] Lab Specimen Source Normal [facility] Comment on above: Performed By: #### H BAB3 ####[id number] [place] [address] Performed By: #### R ENAL #### [facility] [address] [place], [place] [id number] HEPATITIS B SURFACE AGon HEP.B SURFACE AG Non-Reactive Normal NONREACTIVE [facility] Comment on above: Result Comment: Biot in interference may cause falsely decreased results. Patients taking a Biotin dose of up to 5 mg/day should refrain from taking Biotin for 24 hours before sample collection. Providers may contact their local laboratory for further information. Performed By: #### R ENAL #### [facility] [address] [place], [place] [id number] MAGNESIUMon 02-21-2022 Magnesium [Mass/Vol] 1.72 mg/dL Normal 1.60 - 2.40 [facility] Comment on above: Performed By: #### M G ####[facility] [place], [place] [id number] Order Reconciliationon 02-21 Order Reconciliation Page 1 Discharge Reconciliation Document Reconciliation Type: Discharge requested on behalf of Brook Carrasco (Physician) done by Brook Carrasco) Discharge - Partial Reconciliation: 21-Feb-2022 13:28 by: Darryn Grant) Discharge - Reconciliation: 21-Feb-2022 16:07 by: Brook Carrasco) Home Medications EnteredHOME MEDICATIONS AT DISCHARGE DateReconciliation Comment/ Additional Information lisinopril 5 mg oral tablet 1 tab(s) orally once a day 19-Feb-2022 08:42 Discontinued; Discontinue from ORM lisinopril 5 mg oral tablet is not required Current OrdersDateHOME MEDICATIONS AT DISCHARGE DateReconciliation Comment/ Additional Information Acetaminophen Tablet (TYLENOL)DOSE = 650 mg Oral Every 4 Hours, PRN Pain - Mild (1-3) 18-Feb-2022 21:10 Acetaminophen is not required Acetaminophen Tablet (TYLENOL)DOSE = 650 mg Oral Every 4 Hours, PRN Temp Greater Than or Equal to 38.0 C 18-Feb-2022 21:10 Acetaminophen is not required amLODIPine (NORVASC) TabletDOSE = 5 mg Oral Daily 19-Feb-2022 08:56 amLODIPine 5 mg oral tablet 1 tab(s) orally once a day 21-Feb-2022 13:27 Prescription is created for amLODIPine 5 mg oral tablet Carvedilol Tablet (COREG)DOSE = 12.5 mg Oral 2 Times a Day 19-Feb-2022 08:56 carvedilol 12.5 mg oral tablet 1 tab(s) orally 2 times a day 21-Feb-2022 13:27 Prescription is created for carvedilol 12.5 mg oral tablet Clindamycin Capsule (CLEOCIN)DOSE = 300 mg Oral Every 6 Hours 19-Feb-2022 00:32 clindamycin 300 mg oral capsule 1 cap(s) orally every 6 hours 21-Feb-2022 16:00 Prescription is created for clindamycin 300 mg oral capsule cloNIDine (CATAPRES) TabletDOSE = 0.1 mg Oral 2 Times a Day 19-Feb-2022 13:16 cloNIDine 0.1 mg oral tablet 1 tab(s) orally 2 times a day 21-Feb-2022 13:27 Prescription is created for cloNIDine 0.1 mg oral tablet Docusate Capsule (COLACE)DOSE = 100 mg Oral 2 Times a Day 18-Feb-2022 21:10 Docusate is not required Epoetin Trey (Non-ESRD) Injectable DOSE = 10,000 unit(s) SubCutaneous WeeklyNotes from Pharmacy: [facility] 20-Feb-2022 11:56 Epoetin Trey (Non-ESRD) Injectable is not required Heparin SubCutaneous DOSE = 5,000 unit(s) SubCutaneous Every 8 HoursNotes from Pharmacy: Note Concentration Prior to Administration 18-Feb-2022 21:10 Heparin SubCutaneous is not required Magnesium Hydroxide -Al Hydrox -Simethicone Oral Liquid (MAALOX)DOSE = 30 mL Oral Every 6 Hours, PRN Indigestion/Heartburn 18-Feb-2022 21:10 Magnesium Hydroxide -Al Hydrox -Simethicone Oral Liquid is not required Magnesium Sulfate Topical PowderDOSE = 1 application(s) Topical 2 Times a DayApply to Right FootClinician Notes: Epsom salt soaks twice a day 19-Feb-2022 20:38 Magnesium Sulfate Topical is not required Melatonin TabletDOSE = 6 mg Oral At Bedtime, PRN Insomnia 18-Feb-2022 21:10 melatonin 3 mg oral tablet 2 tab(s) orally once (at bedtime) -Insomnia 21-Feb-2022 16:00 Prescription is created for melatonin 3 mg oral tablet Morphine Injectable DOSE = 2 mg IntraVenous Push Every 4 Hours, PRN Pain - Severe (7-10) 18-Feb-2022 21:10 Morphine Injectable is not required Mupirocin 2% Ointment (BACTROBAN)DOSE = 1 application(s) Topical DailyApply to Affected AreaClinician Notes: R hallux mupirocin, band aid daily. Epsom salt soaks twice daily 19-Feb-2022 17:07 Mupirocin 2% is not required Ondansetron Injectable (ZOFRAN)DOSE = 4 mg IntraVenous Push Every 4 Hours, PRN Nausea/Vomiting 18-Feb-2022 21:10 Ondansetron Injectable is not required Pantoprazole Enteric Coated Tablet (PROTONIX)DOSE = 40 mg Oral Daily 18-Feb-2022 21:10 Pantoprazole is not required All Active Home Medications at time of Discharge Reconciliation: 21-Feb-2022 16:07 amLODIPine 5 mg oral tablet 1 tab(s) orally once a day carvedilol 12.5 mg oral tablet 1 tab(s) orally 2 times a day clindamycin 300 mg oral capsule 1 cap(s) orally every 6 hours cloNIDine 0.1 mg oral tablet 1 tab(s) orally 2 times a day melatonin 3 mg oral tablet 2 tab(s) orally once (at bedtime) -Insomnia Normal [facility] PHOSPHORUSon 02-21-2022 Phosphate [Mass/Vol] 5.8 mg/dL High 2.5 - 4.9 [facility] Comment on above: Result Comment: The performance characteristics of phosphorus testing in heparinized plasma have been validated by the individual laboratory site where testing is performed. Testing on heparinized plasma is not approved by the FDA; however, such approval is not necessary. Performed By: #### M G #### [address] [id number] RENAL FUNCTION PANELon 02-21 ALBUMIN Canceled Normal [facility] Comment on above: Order Comment: TEST RENAL FUNCTION PANEL WAS CANCELLED, 02/21/2022 06:55 CMP and PHOS on other order. Performed By: #### R ENAL #### [address] [id number] ANION GAP Canceled Normal [facility] Comment on above: Order Comment: TEST RENAL FUNCTION PANEL WAS CANCELLED, 02/21/2022 06:55 CMP and PHOS on other order. Performed By: #### R ENAL #### [address] [id number] BICARBONATE Canceled Normal [facility] Comment on above: Order Comment: TEST RENAL FUNCTION PANEL WAS CANCELLED, 02/21/2022 06:55 CMP and PHOS on other order. Performed By: #### R ENAL #### [address] [id number] CALCIUM Canceled Normal [facility] Comment on above: Order Comment: TEST RENAL FUNCTION PANEL WAS CANCELLED, 02/21/2022 06:55 CMP and PHOS on other order. Performed By: #### R ENAL #### [address] [id number] CHLORIDE Canceled Normal [facility] Comment on above: Order Comment: TEST RENAL FUNCTION PANEL WAS CANCELLED, 02/21/2022 06:55 CMP and PHOS on other order. Performed By: #### R ENAL #### [address] [id number] CREATININE Canceled Normal [facility] Comment on above: Order Comment: TEST RENAL FUNCTION PANEL WAS CANCELLED, 02/21/2022 06:55 CMP and PHOS on other order. Performed By: #### R ENAL #### [address] [id number] eGFR FEMALE Canceled Normal [facility] Comment on above: Order Comment: TEST RENAL FUNCTION PANEL WAS CANCELLED, 02/21/2022 06:55 CMP and PHOS on other order. Result Comment: CALC ULATIONS OF ESTIMATED GFR ARE PERFORMED USING THE 2020 CKD-EPI STUDY REFIT EQUATION WITHOUT THE RACE VARIABLE FOR THE IDMS-TRACEABLE CREATININE METHODS. https://jasn.asnjournals.org/content/earlyASN.872253 5078 Performed By: #### R ENAL #### [address] [id number] eGFR MALE Canceled Normal [facility] Comment on above: Order Comment: TEST RENAL FUNCTION PANEL WAS CANCELLED, 02/21/2022 06:55 CMP and PHOS on other order. Result Comment: CALC ULATIONS OF ESTIMATED GFR ARE PERFORMED USING THE 2020 CKD-EPI STUDY REFIT EQUATION WITHOUT THE RACE VARIABLE FOR THE IDMS-TRACEABLE CREATININE METHODS. https://jasn.asnjournals.org/content/earlyASN.433269 1781 Performed By: #### R ENAL #### [address] [id number] GLUCOSE Canceled Normal [facility] Comment on above: Order Comment: TEST RENAL FUNCTION PANEL WAS CANCELLED, 02/21/2022 06:55 CMP and PHOS on other order. Performed By: #### R ENAL #### [address] [id number] PHOSPHORUS Canceled Normal [facility] Comment on above: Order Comment: TEST RENAL FUNCTION PANEL WAS CANCELLED, 02/21/2022 06:55 CMP and PHOS on other order. Result Comment: The performance characteristics of phosphorus testing in heparinized plasma have been validated by the individual laboratory site where testing is performed. Testing on heparinized plasma is not approved by the FDA; however, such approval is not necessary. Performed By: #### R ENAL #### [address] [id number] POTASSIUM Canceled Normal [facility] Comment on above: Order Comment: TEST RENAL FUNCTION PANEL WAS CANCELLED, 02/21/2022 06:55 CMP and PHOS on other order. Performed By: #### R ENAL #### [address] [id number] SODIUM Canceled Normal [facility] Comment on above: Order Comment: TEST RENAL FUNCTION PANEL WAS CANCELLED, 02/21/2022 06:55 CMP and PHOS on other order. Performed By: #### R ENAL #### [address] [id number] UREA NITROGEN Canceled Normal [facility] Comment on above: Order Comment: TEST RENAL FUNCTION PANEL WAS CANCELLED, 02/21/2022 06:55 CMP and PHOS on other order. Performed By: #### R ENAL #### [address] [id number] SHAKIR + MAGALY PANELon 02-20-2022 SHAKIR PATTERN HOMOGENEOUS Normal [facility] Comment on above: Performed By: #### A NAP2 ####[id number] [place] [address] SHAKIR TITER 1:80 Normal [facility] Comment on above: Performed By: #### A NAP2 ####[id number] [place] [address] SHAKIR WITH REFLEX TO MAGALY Positive Abnormal NEGATIVE [facility] Comment on above: Result Comment: The Antinuclear Antibody (SHAKIR) test was performed using indirect immunofluorescence assay with HEp-2 cells slide. Performed By: #### A NAP2 ####[id number] [place] [address] CBCon 02-20-2022 Erythrocyte distribution width (RBC) [Ratio] 11.9 % Normal 11.5 - 14.5 [facility] Comment on above: Performed By: #### R ENAL #### [address] [id number] Hematocrit (Bld) [Volume fraction] 24.4 % Low 41.0 - 52.0 [facility] Comment on above: Performed By: #### R ENAL #### [address] [id number] Hemoglobin (Bld) [Mass/Vol] 8.1 g/dL Low 13.5 - 17.5 [facility] Comment on above: Performed By: #### R ENAL #### [address] [id number] MCHC (RBC) [Mass/Vol] 33.2 g/dL Normal 32.0 - 36.0 [facility] Comment on above: Performed By: #### R ENAL #### [address] [id number] MCV (RBC) [Entitic vol] 92 fL Normal 80 - 100 [facility] Comment on above: Performed By: #### R ENAL #### [address] [id number] Platelets (Bld) [#/Vol] 278 10*3/uL Normal 150 - 450 [facility] Comment on above: Performed By: #### R ENAL #### [address] [id number] RBC 2.65 x10E12/L Low 4.50 - 5.90 [facility] Comment on above: Performed By: #### R ENAL #### [address] [id number] WBC (Bld) [#/Vol] 12.9 10*3/uL High 4.4 - 11.3 [facility] Comment on above: Performed By: #### R ENAL #### [address] [id number] COMPREHENSIVE PANELon 2021 Albumin [Mass/Vol] 3.4 g/dL Normal 3.4 - 5.0 [facility] Comment on above: Performed By: #### C MP ####[address] [id number] ALP [Catalytic activity/Vol] 65 U/L Normal 33 - 120 [facility] Comment on above: Performed By: #### C MP ####[address] [id number] ALT [Catalytic activity/Vol] 6 U/L Low 10 - 52 [facility] Comment on above: Result Comment: Lalita ents treated with Sulfasalazine may generate falsely decreased results for ALT. Performed By: #### C MP ####[address] [place], [place] [id number] Anion gap [Moles/Vol] 16 mmol/L Normal 10 - 20 [facility] Comment on above: Performed By: #### C MP ####[address] [id number] AST [Catalytic activity/Vol] 11 U/L Normal 9 - 39 [facility] Comment on above: Performed By: #### C MP ####[address] [id number] Bilirubin [Mass/Vol] 0.4 mg/dL Normal 0.0 - 1.2 [facility] Comment on above: Performed By: #### C MP ####[address] [id number] Calcium [Mass/Vol] 8.5 mg/dL Low 8.6 - 10.3 [facility] Comment on above: Performed By: #### C MP ####[address] [id number] Chloride [Moles/Vol] 106 mmol/L Normal 98 - 107 [facility] Comment on above: Performed By: #### C MP ####[address] [id number] Creatinine [Mass/Vol] 7.91 mg/dL High 0.50 - 1.30 [facility] Comment on above: Performed By: #### C MP ####[address] [id number] GFR/1.73 sq M.predicted among non-blacks MDRD (S/P/Bld) [Vol rate/Area] 9 mL/min/{1.73_m2} Abnormal >90 [facility] Comment on above: Result Comment: CALC ULATIONS OF ESTIMATED GFR ARE PERFORMED USING THE 2020 CKD-EPI STUDY REFIT EQUATION WITHOUT THE RACE VARIABLE FOR THE IDMS-TRACEABLE CREATININE METHODS. https://jasn.asnjournals.org/content/early/ASN.103883 1692 Performed By: #### C MP ####[address] [id number] Glucose [Mass/Vol] 99 mg/dL Normal 74 - 99 [facility] Comment on above: Performed By: #### C MP ####[address] [id number] HCO3 (Bld) [Moles/Vol] 22 mmol/L Normal 21 - 32 [facility] Comment on above: Performed By: #### C MP ####[address] [id number] Potassium [Moles/Vol] 4.9 mmol/L Normal 3.5 - 5.3 [facility] Comment on above: Performed By: #### C MP ####[address] [id number] Protein [Mass/Vol] 6.0 g/dL Low 6.4 - 8.2 [facility] Comment on above: Performed By: #### C MP ####[address] [id number] Sodium [Moles/Vol] 139 mmol/L Normal 136 - 145 [facility] Comment on above: Performed By: #### C MP ####[address] [id number] Urea nitrogen [Mass/Vol] 70 mg/dL High 6 - 23 [facility] Comment on above: Performed By: #### C MP ####[address] [id number] Clinical Event Note-ED Post Discharge Result Follow Up: #Selin 02-20-2022 Clinical Event Note-ED Post Discharge Result Follow Up: #Katya Clinical Event: Clinical Event Note: TopicED Post Discharge Result Follow Up: #Complete: Group B streptococcus 4+ Details Emergency Department Post-Discharge Group (outpatient pharmacists) reviewed the results of a positive Group B streptococcus 4+ culture that was collected from the patient in the emergency room. The patient was admitted to [facility]). The Culture Callback Team will turn over care to the inpatient providers. Please refer to inpatient pharmacist team if providers would like recommendations regarding these results. No further follow up is necessary. If there are any other questions for the ED Post-Discharge Culture Follow Up Team, please contact [phone]. . Rudy Bowden PharmD, [facility] Clinical Pharmacist - Culture Callback Pharmacist [facility] Electronic Signatures: Nicki Vega (PharmBrady) (Signed 21-Feb-2022 08:16) Co-Signer: Clinical Event Note Rudy Bowden ([facility]) (Signed 20-Feb-2022 13:32) Authored: Clinical Event Note Last Updated: 21-Feb-2022 08:16 by Nicki Vega (PharmBrday) Normal [facility] Daily Progress Note - Critic al Care-SICUon 02-20-2022 Daily Progress Note - Critical Care-SICU Service: Critical Care Service: ServiceSICU Subjective Data: ID Statement: LAWSON DOYLE is a 21 year old Male who is Hospital Day # 3 and ICU Day #3. Alert and oriented x3. Off nicardipine infusion. Tolerating BP medications. Renal function slightly worse. Objective Data: Objective Information T PRBPMAPSpO2 [id number] % Date/Time02/20 6:00104/23 9: 9: 9:00104/23 9:00104/23 9:00 Range(36.4C - 36.8C ) (78 - 122 ) (10 - 28 ) (118 - 185 )/ (36 - 78 ) (71 - 111 ) (92% - 97% ) Pain reported at 02/20 8:00: 0 = None ---- Intake and Output ----- Mn/Dy/Year TimeIntakeOutputNet Feb 19, 2022 10:00 [id number] Feb 19, 2022 2:00 [id number] [facility] Intake and Output Totals for the last 24 hours are: [facility] [id number] Date: Weight/Scale Type: 19-Feb-2022 06:0082.3 kg / standing 18-Feb-2022 21:2384.4 kg / bed 18-Feb-2022 13:5286 kg ---- Intake and Output ----- [facility] Feb 19, 2022 10:00 [id number] Feb 19, 2022 2:00 [id number] The Intake and Output Totals for the last 24 hours are: [facility] [id number] Physical Exam by System: Neurological: AAOx3. Moves all extremities, follows commands. Cardiovascular: Tachycardic. Regular, rate and rhythm, no murmurs, 2+ equal pulses of the extremities, normal S 1and S 2 Respiratory/Thorax: Diminished. No adventitious breath sounds. Genitourinary: No Discharge, vesicles or other abnormalities Gastrointestinal: +BS, soft, NT, ND. Skin: Warm and dry. Right foot with scratch gaston. Musculoskeletal: ROM intact, no joint swelling, normal strength Constitutional: Well developed, awake/alert/oriented x3, no distress, alert and cooperative Eyes: PERRL, EOMI, clear sclera ENMT: mucous membranes moist, no apparent injury, no lesions seen. Head/Neck: Neck supple, no apparent injury, thyroid without mass or tenderness, No JVD, trachea midline, no bruits. Extremities: normal extremities, no cyanosi, no edema. Right hallux infection at the edge of toenail. Foul smelling. + localized swelling around the nail bed. No obvious drainage or erythema. Tender to touch. Lymphatic: No significant lymphadenopathy Psychological: Calm, appropriate. Allergies: Allergies: No Known Allergies: Medications: Medications: Continuous Medications --------- No continuous medications are active Scheduled Medications --------- 1. amLODIPine (NORVASC): 5 mg Oral Daily 2. Carvedilol: 12.5 mg Oral 2 Times a Day 3. Clindamycin: 300 mg Oral Every 6 Hours 4. cloNIDine (CATAPRES): 0.1 mg Oral 2 Times a Day 5. Docusate: 100 mg Oral 2 Times a Day 6. Heparin SubCutaneous: 5000 unit(s) SubCutaneous Every 8 Hours 7. Magnesium Sulfate Topical: 1 application(s) Topical 2 Times a Day 8. Mupirocin 2%: 1 application(s) Topical Daily 9. Pantoprazole: 40 mg Oral Daily PRN Medications --------- 1. Acetaminophen: 650 mg Oral Every 4 Hours 2. Acetaminophen: 650 mg Oral Every 4 Hours 3. Magnesium Hydroxide -Al Hydrox -Simethicone Oral Liquid: 30 mL Oral Every 6 Hours 4. Melatonin: 6 mg Oral At Bedtime 5. Morphine Injectable: 2 mg IntraVenous Push Every 4 Hours 6. Ondansetron Injectable: 4 mg IntraVenous Push Every 4 Hours Recent Lab Results: Results: CBC: 02/20/2022 04:50 \\ Hgb / \\ 8.1 L / WBC Plt 12.9 H 278 / Hct \\ / 24.4 L \\ RBC: 2.65 L MCV: 92 CMP: 02/20/2022 04:50 NA+ Cl- BUN / 139 106 70 H / --------- Glucose ---- 99 K+ HCO3- Creat \\ 4.9 22 7.91 H \\ \\ T Bili / \\ 0.4 / AST x ---- x ALT 11 x ---- x 6 L / Alk P \\ / 65 \\ Calcium : 8.5 L Anion Gap : 16 Albumin : 3.4 T Protein : 6.0 L Results: Impression: 1. Trace amount nonspecific perinephric fluid adjacent to the upper pole of the right kidney. 2. No hydronephrosis is evident. Ultrasound Renal Bilateral [Feb 19 2022 10:24AM] Impression: No acute fracture or malalignment. Signed by Brady Carrizales DO Xray Foot Complete Min 3 View [Feb 18 2022 5:23PM] Impression: No acute cardiopulmonary disease. Signedby Brady Carrizales DO Xray Chest 1 View [Feb 18 2022 5:18PM] Assessment and Plan: Daily Risk Screen: Does patient have a central lineno Does patient have an indwelling urinary catheterno Is the patient intubatedno Assessment/Plan: Assessment/Plan: Assesment/ Plan per Dr. Grant- 1) CKD stage V -no indication for renal replacement therapy at the current time. If his GFR stabilizes around 11 and does not have symptoms may be able to have close follow-up with dialysis education and planning for dialysis or transplant soon 2) likely Alport's disease -we will do genetic testing as an outpatient 3) hypertension -add Coreg Norvasc (more content not included)... Normal [facility] Daily Progress Note - Critical Care-SICU This report has been cancelled. Normal [facility] Daily Progress Note-Nephrolo gyon 02-20-2022 Daily Progress Note-Nephrology Service: Nephrology Subjective Data: LAWSON DOYLE is a 21 year old Male who is Hospital Day # 3. bp good off cardene feels well no uremic symptoms. Objective Data: Objective Information: T PRBPMAPSpO2 [id number] % Date/Time02/20 10: 11: 11: 11: 11: 11:00 Range(36.4C - 36.8C ) (72 - 122 ) (10 - 28 ) (118 - 185 )/ (36 - 78 ) (71 - 111 ) (92% - 97% ) Pain reported at 02/20 8:00: 0 = None ---- Intake and Output ----- Mn/Dy/Year TimeIntakeOutputNet Feb 19, 2022 10:00 [id number] Feb 19, 2022 2:00 [id number] The Intake and Output Totals for the last 24 hours are: [facility] [id number] Physical Exam by System: Constitutional: awake/alert/oriented x3, no distress, alert and cooperative Head/Neck: Neck supple, no apparent injury, No JVD, trachea midline, no bruits Respiratory/Thorax: no resp distress. lungs are clear to auscultation Cardiovascular: Regular, rate and rhythm, no murmurs, 2+ equal pulses of the extremities, normal S 1and S 2 Gastrointestinal: Nondistended, soft, non-tender, no rebound tenderness or guarding, no masses palpable, no organomegaly, +BS, no bruits Musculoskeletal: ROM intact Extremities: Foot infection Neurological: alert and oriented x3 Psychological: Appropriate mood and behavior Skin: Warm and dry, no lesions, no rashes Medication: Medications: ALTERNATIVE MEDICINES: 1. Melatonin: 6 mg Oral At Bedtime PRN ANTI-INFECTIVES: 1. Clindamycin: 300 mg Oral Every 6 Hours CARDIOVASCULAR AGENTS: 1. cloNIDine (CATAPRES): 0.1 mg Oral 2 Times a Day 2. Carvedilol: 12.5 mg Oral 2 Times a Day 3. amLODIPine (NORVASC): 5 mg Oral Daily CENTRAL NERVOUS SYSTEM AGENTS: 1. Acetaminophen: 650 mg Oral Every 4 Hours PRN 2. Acetaminophen: 650 mg Oral Every 4 Hours PRN 3. Morphine Injectable: 2 mg IntraVenous Push Every 4 Hours PRN 4. Ondansetron Injectable: 4 mg IntraVenous Push Every 4 Hours PRN COAGULATION MODIFIERS: 1. Heparin SubCutaneous: 5000 unit(s) SubCutaneous Every 8 Hours GASTROINTESTINAL AGENTS: 1. Magnesium Hydroxide -Al Hydrox -Simethicone Oral Liquid: 30 mL Oral Every 6 Hours PRN 2. Docusate: 100 mg Oral 2 Times a Day 3. Magnesium Sulfate Topical: 1 application(s) Topical 2 Times a Day 4. Pantoprazole: 40 mg Oral Daily TOPICAL AGENTS: 1. Mupirocin 2%: 1 application(s) Topical Daily Recent Lab Results: Results: CBC: 02/20/2022 04:50 \\ Hgb / \\ 8.1 L / WBC Plt 12.9 H 278 / Hct \\ / 24.4 L \\ RBC: 2.65 L MCV: 92 CMP: 02/20/2022 04:50 NA+ Cl- BUN / 139 106 70 H / --------- Glucose ---- 99 K+ HCO3- Creat \\ 4.9 22 7.91 H \\ \\ T Bili / \\ 0.4 / AST x ---- x ALT 11 x ---- x 6 L / Alk P \\ / 65 \\ Calcium : 8.5 L Anion Gap : 16 Albumin : 3.4 T Protein : 6.0 L Radiology Results: Results: Impression: 1. Trace amount nonspecific perinephric fluid adjacent to the upper pole of the right kidney. 2. No hydronephrosis is evident. Ultrasound Renal Bilateral [Feb 19 2022 10:24AM] Impression: No acute fracture or malalignment. Signed by Brady Carrizales DO Xray Foot Complete Min 3 View [Feb 18 2022 5:23PM] Assessment and Plan: Code Status: Code StatusFull Code Assessment: 21-year-old man with CKD stage V with a GFR currently of 11 cc/min. 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 He had a kidney biopsy that had 0 glomeruli so nondiagnostic. Last seen in 2018. Extensive family history of end-stage renal disease with male scanning end-stage renal disease before the age of 20. Had no medical follow-up over the last several years. Admitted with foot infection found to have hypertensive urgency and a GFR of 11 1) CKD stage V -worse. didn't give ivf yesterday as by mouth intake was good and bp high. start NS at 100 cc/hr. if gfr worse, will consider starting hd but would like to hold off 2) likely Alport's disease -we will do genetic testing as an outpatient - mostly would help with genetic planning. 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 off cardene 4) anemia -iron saturation of 11%. We will start with IV iron - give another dose today and add nena 5) hyperparathyroidism -hold off on treating for now ok for floor and then either home tomorrow or start hd if worse Electronic Signatures: Darryn Grant) (Signed 20-Feb-2022 11:55) Authored: Service, Subjective Data, Objective Data, Assessment and Plan, Note Completion Last Updated: 20-Feb-2022 11:55 by Darryn Grant) Normal [facility] Discharge Planning [id number] 1 04-23-2021 Discharge Planning Note2 Discharge Planning: Planned Dispositionhome Discharge DestinationHome Anticipated Discharge [id number] Discharge Planning 02/20/22 Maximino RYAN RN TCC SICU am rounds Medical team rounds indicate this young man has a significant renal function failure. It would appear from medical notes that other family members may have a relating history of kidney failure. At this time no definitive determination has not been made to whether renal dialysis will be needed, and if so when. He has had some slight toe nail related concerns but that is not a current pressing issue. When TCC went to room patient slept very soundly throughout TCC and did not even react to TCC conversation with patient's father whom is at bedside. Father confirmed demographics and pcp . Family is able to obtain medications as necessary and patient has had no need for assistive devices or 02. Discharge plan will be dependent on nephrology related information. Patient had resided with family. kb 02/21/22 430pm TCC Note; Pt to dc home & follow with nephrology out pt. Michell Ramos RN TCC Assessment: Discharge Planning Assessment [id number] Primary Contact Name and NumberEduardo (Father) [phone](1) Lives Withgrandparent(s); parent(s)(1) Living Arrangementshouse(1) Stated Reason for AdmissionPain in right great toe with sore throat and ear pain.(1) [place] Resource/Environmental Concernsnone(1) [place] [facility] [place] Services Anticipated at Transitionnon(1) Nursing Checklist: Lines/Cathetersremoved/ appropriate for next level of care Discharge Med Rec Reconciled with Suad Patient has Prescriptionsyes Transportation for Discharge Confirmedyes Follow up Reviewedyes Discharge Instructions Reviewed WithPatient Discharge Instructions Outcomeverbalize recall/understanding Discharge Documentation: Discharged Accompanied Byfriend Transportation Methodprivate car Discharge Modewheelchair Code StatusCode Status order at time of discharge: Full Code Discharge Order Writtenyes [place] DNR Form Sent with Patient and/or Familyn/a Valuables/Medications/B elongings Returnedyes Final Disposition.Home Electronic Signatures: Leslie Ryan (CLIN COOR) (Signed 20-Feb-2022 17:46) Authored: Discharge Planning, Assessment Michell Ramos (INTERMODAL DISPATCHER) (Signed 21-Feb-2022 16:37) Authored: Discharge Planning Alexa Zaragoza (RN) (Signed 21-Feb-2022 16:22) Authored: Discharge Planning, Nursing Checklist, Discharge Documentation Last Updated: 21-Feb-2022 16:37 by Michell Ramos (INTERMODAL DISPATCHER) References: 1. Data Referenced From Patient Profile - Adult v2" 18-Feb-2022 21:23 Normal [facility] MAGNESIUMon 02-20-2022 Magnesium [Mass/Vol] 1.75 mg/dL Normal 1.60 - 2.40 [facility] Comment on above: Performed By: #### M G #### [facility] [address] [place], [place] [id number] PHOSPHORUSon 02-20-2022 Phosphate [Mass/Vol] 5.3 mg/dL High 2.5 - 4.9 [facility] Comment on above: Result Comment: The performance characteristics of phosphorus testing in heparinized plasma have been validated by the individual laboratory site where testing is performed. Testing on heparinized plasma is not approved by the FDA; however, such approval is not necessary. Performed By: #### P HOS ####[facility] [place], [place] [id number] ALBUMIN, URINE SPOTon 2021 ALBUMIN,URINE 1331.0 mg/L Normal Not Established [facility] Comment on above: Performed By: #### A LBSP ####[facility] [place], [place] [id number] ALBUMIN/CREAT RATIO 2549.8 ug/mg salesperson stereo equipment High 0.0 - 30.0 [facility] Comment on above: Performed By: #### A LBSP ####[id number] [place], [place] [id number] SHAKIR + MAGALY PANELon 02-19-2022 ANTI-CENTROMERE <0.2 Normal [facility] Comment on above: Result Comment: REF VALUES < 1.0 = NEGATIVE >=1.0 = POSITIVE Performed By: #### A NAP2 ####[id number] [place] [address] ANTI-CHROMATIN <0.2 Normal [facility] Comment on above: Result Comment: REF VALUES < 1.0 = NEGATIVE >=1.0 = POSITIVE Performed By: #### A NAP2 ####[id number] [place] [address] ANTI-DNA [DS] <1.0 Normal [facility] Comment on above: Result Comment: REF VALUES NEGATIVE: <= 4 IU/ML EQUIVOCAL: 5- 9 IU/ML POSITIVE: >=10 IU/ML Performed By: #### A NAP2 ####[id number] [place] [address] ANTI-TONE-1 <0.2 Normal [facility] Comment on above: Result Comment: REF VALUES < 1.0 = NEGATIVE >=1.0 = POSITIVE Performed By: #### A NAP2 ####[id number] [place] [address] ANTI-RIBOSOMAL P 0.3 AI Normal [facility] Comment on above: Result Comment: REF VALUES < 1.0 = NEGATIVE >=1.0 = POSITIVE Performed By: #### A NAP2 ####[id number] [place] [address] ANTI-AMERICAN HISTORY TEACHER 0.3 AI Normal [facility] Comment on above: Result Comment: REF VALUES < 1.0 = NEGATIVE >=1.0 = POSITIVE Performed By: #### A NAP2 ####[id number] [place] [address] ANTI-SCL-70 <0.2 Normal [facility] Comment on above: Result Comment: REF VALUES < 1.0 = NEGATIVE >=1.0 = POSITIVE Performed By: #### A NAP2 ####[id number] [place] [address] ANTI-SM <0.2 Normal [facility] Comment on above: Result Comment: REF VALUES < 1.0 = NEGATIVE >=1.0 = POSITIVE Performed By: #### A NAP2 ####[id number] [place] [address] ANTI-SM/AMERICAN HISTORY TEACHER <0.2 Normal [facility] Comment on above: Result Comment: REF VALUES < 1.0 = NEGATIVE >=1.0 = POSITIVE Performed By: #### A NAP2 ####[id number] [place] [address] ANTI-SSA <0.2 Normal [facility] Comment on above: Result Comment: REF VALUES < 1.0 = NEGATIVE >=1.0 = POSITIVE Performed By: #### A NAP2 ####[id number] [place] [address] ANTI-SSB <0.2 Normal [facility] Comment on above: Result Comment: REF VALUES < 1.0 = NEGATIVE >=1.0 = POSITIVE Performed By: #### A NAP2 ####[id number] [place] [address] C3 COMPLEMENTon 02-19-2022 C3 COMPLEMENT 123 mg/dL Normal 87 - 200 [facility] Comment on above: Performed By: #### M G #### [facility] [address] [place], [place] [id number] C4 COMPLEMENTon 02-19-2022 C4 COMPLEMENT 48 mg/dL Normal 10 - 50 [facility] Comment on above: Performed By: #### C 4 ####[id number] [place] [address] CBCon 02-19-2022 Erythrocyte distribution width (RBC) [Ratio] 11.8 % Normal 11.5 - 14.5 [facility] Comment on above: Performed By: #### C BC ####[facility] [place], [place] [id number] Hematocrit (Bld) [Volume fraction] 25.4 % Low 41.0 - 52.0 [facility] Comment on above: Performed By: #### C BC ####[facility] [place], [place] [id number] Hemoglobin (Bld) [Mass/Vol] 8.6 g/dL Low 13.5 - 17.5 [facility] Comment on above: Performed By: #### C BC ####[facility] [place], [place] [id number] MCHC (RBC) [Mass/Vol] 33.9 g/dL Normal 32.0 - 36.0 [facility] Comment on above: Performed By: #### C BC ####[facility] [place], [place] [id number] MCV (RBC) [Entitic vol] 90 fL Normal 80 - 100 [facility] Comment on above: Performed By: #### C BC ####[facility] [place], [place] [id number] Platelets (Bld) [#/Vol] 283 10*3/uL Normal 150 - 450 [facility] Comment on above: Performed By: #### C BC ####[facility] [place], [place] [id number] RBC 2.83 x10E12/L Low 4.50 - 5.90 [facility] Comment on above: Performed By: #### C BC ####[address] [id number] WBC (Bld) [#/Vol] 13.1 10*3/uL High 4.4 - 11.3 [facility] Comment on above: Performed By: #### C BC ####[address] [id number] COMPREHENSIVE PANELon 2021 Albumin [Mass/Vol] 3.7 g/dL Normal 3.4 - 5.0 [facility] Comment on above: Performed By: #### R ENAL #### [address] [id number] ALP [Catalytic activity/Vol] 72 U/L Normal 33 - 120 [facility] Comment on above: Performed By: #### R ENAL #### [address] [id number] ALT [Catalytic activity/Vol] 9 U/L Low 10 - 52 [facility] Comment on above: Result Comment: Lalita ents treated with Sulfasalazine may generate falsely decreased results for ALT. Performed By: #### R ENAL #### [address] [id number] Anion gap [Moles/Vol] 16 mmol/L Normal 10 - 20 [facility] Comment on above: Performed By: #### R ENAL #### [address] [id number] AST [Catalytic activity/Vol] 10 U/L Normal 9 - 39 [facility] Comment on above: Performed By: #### R ENAL #### [address] [id number] Bilirubin [Mass/Vol] 0.3 mg/dL Normal 0.0 - 1.2 [facility] Comment on above: Performed By: #### R ENAL #### [address] [id number] Calcium [Mass/Vol] 8.5 mg/dL Low 8.6 - 10.3 [facility] Comment on above: Performed By: #### R ENAL #### [address] [id number] Chloride [Moles/Vol] 106 mmol/L Normal 98 - 107 [facility] Comment on above: Performed By: #### R ENAL #### [address] [id number] Creatinine [Mass/Vol] 6.88 mg/dL High 0.50 - 1.30 [facility] Comment on above: Performed By: #### R ENAL #### [address] [id number] GFR/1.73 sq M.predicted among non-blacks MDRD (S/P/Bld) [Vol rate/Area] 11 mL/min/{1.73_m2} Abnormal >90 [facility] Comment on above: Result Comment: CALC ULATIONS OF ESTIMATED GFR ARE PERFORMED USING THE 2020 CKD-EPI STUDY REFIT EQUATION WITHOUT THE RACE VARIABLE FOR THE IDMS-TRACEABLE CREATININE METHODS. https://jasn.asnjournals.org/content//ASN.938103 4289 Performed By: #### R ENAL #### [address] [id number] Glucose [Mass/Vol] 109 mg/dL High 74 - 99 [facility] Comment on above: Performed By: #### R ENAL #### [address] [id number] HCO3 (Bld) [Moles/Vol] 23 mmol/L Normal 21 - 32 [facility] Comment on above: Performed By: #### R ENAL #### [address] [id number] Potassium [Moles/Vol] 4.9 mmol/L Normal 3.5 - 5.3 [facility] Comment on above: Performed By: #### R ENAL #### [address] [id number] Protein [Mass/Vol] 6.4 g/dL Normal 6.4 - 8.2 [facility] Comment on above: Performed By: #### R ENAL #### [address] [id number] Sodium [Moles/Vol] 140 mmol/L Normal 136 - 145 [facility] Comment on above: Performed By: #### R ENAL #### [address] [id number] Urea nitrogen [Mass/Vol] 70 mg/dL High 6 - 23 [facility] Comment on above: Performed By: #### R ENAL #### [address] [id number] Consult-Nephrologyon 022 Consult-Nephrology Service: Service: Nephrology Consult: Consult requested by (Attending Name): Andres Calderón Reason: DENNY, hypertensive urgency History of Present Illness: HPI: LAWSON DOYLE is a 21 year old Male with most likely Alport syndrome based on extensive family history who is had no medical care over the last 4 years who was admitted with worsening kidney failure. I saw him back in 2018 at which time he had a creatinine in the low ones but had positive hematuria and proteinuria. His family history of early end-stage renal disease is extensive with an older brother who developed end-stage renal disease around the age of 18, 2 cousins who developed end-stage renal disease around the same age as well his his mom and and who developed end-stage renal disease a little bit later in their life. Her grandfather also had end-stage renal disease and was told he had Alport's then. 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 He has a prescription for lisinopril that was filled in 2019 that he said he has been stretching out and using the lisinopril very rarely. Had foot infection recently then developed cough also some hearing issues. Was admitted to the ICU with hypertensive urgency. He otherwise feels fine. He denies any uremic symptoms. He says his appetites been fine denies any nausea vomiting etc. denies any significant NSAID use PMH: Alport's disease hypertension Family history: Extensive end-stage renal disease with grandfather mother and older brother, aunt as well as 2 cousins Medications: Rare use of lisinopril Review Family/Social History and ROS: Social History: Smoking Status: never smoker (1) Alcohol Use: denies(1) Drug Use: denies (1) Constitutional: NEGATIVE: Malaise Eyes: NEGATIVE: Vision Loss/ Change ENMT: NEGATIVE: Nasal Discharge Respiratory: NEGATIVE: Shortness of Breath Gastrointestinal: NEGATIVE: Nausea Genitourinary: NEGATIVE: Discharge Musculoskeletal: NEGATIVE: Swelling Neurological: NEGATIVE: Dizziness Psychiatric: NEGATIVE: Mood Changes Skin: NEGATIVE: Mass Allergies: No Known Allergies: Objective: Objective Information: T PRBPMAPSpO2 [id number] 5% Date/Time02/19 10: 10: 10: 10: 10: 10:00 Range(36.4C - 37C ) (94 - 138 ) (15 - 31 ) (134 - 232 )/ (50 - 137 ) (80 - 115 ) (94% - 100% ) Highest temp of 37 C was recorded at 12 20:35 Physical Exam by System: Constitutional: awake/alert/oriented x3, no distress, alert and cooperative Head/Neck: Neck supple, no apparent injury, No JVD, trachea midline, no bruits Respiratory/Thorax: no resp distress. lungs are clear to auscultation Cardiovascular: Regular, rate and rhythm, no murmurs, 2+ equal pulses of the extremities, normal S 1and S 2 Gastrointestinal: Nondistended, soft, non-tender, no rebound tenderness or guarding, no masses palpable, no organomegaly, +BS, no bruits Musculoskeletal: ROM intact Extremities: Foot infection Neurological: alert and oriented x3 Psychological: Appropriate mood and behavior Skin: Warm and dry, no lesions, no rashes Medications: Medications: ALTERNATIVE MEDICINES: 1. Melatonin: 6 mg Oral At Bedtime PRN ANTI-INFECTIVES: 1. Clindamycin: 300 mg Oral Every 6 Hours CARDIOVASCULAR AGENTS: 1. Carvedilol: 12.5 mg Oral 2 Times a Day 2. Metoprolol Injectable: 5 mg IntraVenous Push Every 6 Hours 3. amLODIPine (NORVASC): 5 mg Oral Daily 4. niCARdipine (CARDENE) 40 mg/ NaCL 200 mL Premix Infusion: 2.5 mg/hr IntraVenous CENTRAL NERVOUS SYSTEM AGENTS: 1. Acetaminophen: 650 mg Oral Every 4 Hours PRN 2. Acetaminophen: 650 mg Oral Every 4 Hours PRN 3. Morphine Injectable: 2 mg IntraVenous Push Every 4 Hours PRN 4. Ondansetron Injectable: 4 mg IntraVenous Push Every 4 Hours PRN COAGULATION MODIFIERS: 1. Heparin SubCutaneous: 5000 unit(s) SubCutaneous Every 8 Hours GASTROINTESTINAL AGENTS: 1. Magnesium Hydroxide -Al Hydrox -Simethicone Oral Liquid: 30 mL Oral Every 6 Hours PRN 2. Docusate: 100 mg Oral 2 Times a Day 3. Pantoprazole: 40 mg Oral Daily Recent Lab Results: Results: I have reviewed these laboratory results: Comprehensive Metabolic Panel 19-Feb-2022 05:03:00 ResultValue Glucose, Serum 109 H NA 140 K 4.9 CL 106 Bicarbonate, Serum 23 Anion Gap, Serum 16 BUN 70 H CREAT 6.88 H GFR Male 11 A Calcium, Serum 8.5 L ALB 3.7 ALKP 72 T Pro 6.4 T Bili 0.3 Alanine Aminotransferase, Serum 9 L Aspartate Transaminase, Serum 10 Complete Blood Count 19-Feb-2022 05:03:00 ResultValue White Blood Cell Count 13.1 H Red Blood Cell Count 2.83 L HGB 8.6 L HCT 25.4 L MCV 90 MCHC 33.9 PLT 283 RDW-CV 11.8 Iron + TIBC, Serum 19-Feb-2022 05:03:00 ResultValue Iron, Serum 29 L Total Iron Binding Capacity 275 % Saturation 11 L Phosphorus, Serum 19-Feb-2022 05:03:00 R (more content not included)... Normal [facility] Consult-Podiatryon Consult-Podiatry Service: Service: Podiatry Consult: Consult requested by (Attending Name): Andres Calderón Reason: Right hallux infection d/t ingrown toenail History of Present Illness: HPI: LAWSON DOYLE is a 21 year old Male with PMH including ubt not limited to HTN, acute renal failure, Podiatry consulted for right hallux ingrown toenail. Patient is a poor historian, states he is unsure how long he has had an infection to his right great toenail. Feels it might have been about a month. He admits to some drainage. No pain. No history of ingrown nails in the past, no procedures in the past. Denies constitutional symptoms. No other pedal complaints Review Family/Social History and ROS: Social History: Smoking Status: never smoker (1) Alcohol Use: denies(1) Drug Use: denies (1) Allergies: No Known Allergies: Objective: Physical Exam Narrative: Physical Exam: Vascular: DP and PT pulses palpable b/l. CFT <3 seconds to digits b/l. Hair growth noted. No varicosities. Derm: Right hallux nail incurvated medial and lateral border, with purulent drainage from medial, lateral, proximal border. Hypertrophic granular tissue to medial and lateral nail fold. Pain to palpation. Localized edema, minimal localized erythema to the adjacent nail fold, no increased warmth. No lymphangitis. No crepitus or fluctuance. After nail avulsion, no nailbed laceration, no exposed bone. No tunneling or undermining. Webspaces 1-4 b/l clean, dry, and intact. MSK: 5/5 strength to bilateral lower extremity muscle groups. No gross deformities noted. Neuro: Light touch intact bilateral. Protective sensation intact bilateral. No clonus noted. No babinski. Medications: Medications: Continuous Medications --------- 1. niCARdipine (CARDENE) 40 mg/ NaCL 200 mL Premix Infusion: 2.5 mg/hr IntraVenous Scheduled Medications --------- 1. amLODIPine (NORVASC): 5 mg Oral Daily 2. Carvedilol: 12.5 mg Oral 2 Times a Day 3. Clindamycin: 300 mg Oral Every 6 Hours 4. cloNIDine (CATAPRES): 0.1 mg Oral 2 Times a Day 5. Docusate: 100 mg Oral 2 Times a Day 6. Heparin SubCutaneous: 5000 unit(s) SubCutaneous Every 8 Hours 7. Lidocaine 1% Injectable: 10 mL SubCutaneous Once 8. Pantoprazole: 40 mg Oral Daily PRN Medications --------- 1. Acetaminophen: 650 mg Oral Every 4 Hours 2. Acetaminophen: 650 mg Oral Every 4 Hours 3. Magnesium Hydroxide -Al Hydrox -Simethicone Oral Liquid: 30 mL Oral Every 6 Hours 4. Melatonin: 6 mg Oral At Bedtime 5. Morphine Injectable: 2 mg IntraVenous Push Every 4 Hours 6. Ondansetron Injectable: 4 mg IntraVenous Push Every 4 Hours Recent Lab Results: Results: I have reviewed these laboratory results: Comprehensive Metabolic Panel 19-Feb-2022 05:03:00 ResultValue Glucose, Serum 109 H NA 140 K 4.9 CL 106 Bicarbonate, Serum 23 Anion Gap, Serum 16 BUN 70 H CREAT 6.88 H GFR Male 11 A Calcium, Serum 8.5 L ALB 3.7 ALKP 72 T Pro 6.4 T Bili 0.3 Alanine Aminotransferase, Serum 9 L Aspartate Transaminase, Serum 10 Complete Blood Count 19-Feb-2022 05:03:00 ResultValue White Blood Cell Count 13.1 H Red Blood Cell Count 2.83 L HGB 8.6 L HCT 25.4 L MCV 90 MCHC 33.9 PLT 283 RDW-CV 11.8 Sedimentation Rate, Erythrocyte 19-Feb-2022 05:03:00 ResultValue Sedimentation Rate, Erythrocyte 69 H Culture, Miscellaneous, includes Gram Stain 18-Feb-2022 17:57:00 ResultValue Gram Stain NO GRANULOCYTES SEEN. 4+ GRAM (+) COCCI Organism Group B streptococcus4+ A Lactate, Level 18-Feb-2022 16:31:00 ResultValue Lactate, Level 0.5 Radiology Results: Results: Impression: No acute fracture or malalignment. Signed by Brady Carrizales DO Xray Foot Complete Min 3 View [Feb 18 2022 5:23PM] Assessment: 21 year old Male with PMH including ubt not limited to HTN, acute renal failure with R hallux ingrown nail Patient seen and examined. Discussed findings with patient, father Right hallux with evidence of localized infection, ingrown nail. After discussion of the risks, benefits, contraindications, alternatives, precautions. Patient elects to proceed with total temporary nail avulsion right hallux. Written consent obtained. After a discussion of the options, the patient elects to proceed with a temporary nail avulsion procedure of the total nail right hallux today under local digital block. The risks, benefits, potential complications, personnel present, and alternatives were discussed. The patient elected to proceed. Patient properly identified. Procedure site marked. A timeout was performed. A digital block of the right hallux was performed using a total of 9 cc of 1% lidocaine plain . After a betadine prep, a blunt elevator was used to free the offending nail border (more content not included)... Normal [facility] DRUG SCREEN,URINEon 02-20-20 22 AMPHETAMINE SCREEN,U Negative Normal NEGATIVE [facility] Comment on above: Result Comment: CUTO FF LEVEL: 500 NG/ML Cross-reactivity has been reported with high concentrations of the following drugs: buproprion, chloroquine, chlorpromazine, ephedrine, mephentermine, fenfluramine, phentermine, phenylpropanolamine, pseudoephedrine, and propranolol. Performed By: #### D RUG3 ####[facility] [place], [place] [id number] BARBITURATES SCREEN,U Negative Normal NEGATIVE [facility] Comment on above: Result Comment: CUTO FF LEVEL: 200 NG/ML Performed By: #### D RUG3 ####[address] [id number] BENZODIAZEPINES SCREEN,U Negative Normal NEGATIVE [facility] Comment on above: Result Comment: CUTO FF LEVEL: 200 NG/ML Performed By: #### D RUG3 ####[address] [id number] CANNABINOIDS SCREEN,U Negative Normal NEGATIVE [facility] Comment on above: Result Comment: CUTO FF LEVEL: 50 NG/ML Performed By: #### D RUG3 ####[address] [id number] COCAINE METABOLITE SCREEN,U Negative Normal NEGATIVE [facility] Comment on above: Result Comment: CUTO FF LEVEL: 150 NG/ML Performed By: #### D RUG3 ####[address] [id number] DRUG SCREEN COMMENT SEE BELOW Normal [facility] Comment on above: Result Comment: Drug screen results are presumptive and should not be used to assess compliance with prescribed medication. Contact the performing [facility] laboratory to add-on definitive confirmatory testing if clinically indicated. . Toxicology screening results are reported qualitatively. The concentration must be greater than or equal to the cutoff to be reported as positive. The concentration at which the screening test can detect an individual drug or metabolite varies. The absence of expected drug(s) and/or drug metabolite(s) may indicate non-compliance, inappropriate timing of specimen collection relative to drug administration, poor drug absorption, diluted/adulterated urine, or limitations of testing. For medical purposes only; not valid for forensic use. . Interpretive questions should be directed to the laboratory medical directors. Performed By: #### D RUG3 ####[address] [id number] FENTANYL SCREEN,URINE Negative Normal NEGATIVE [facility] Comment on above: Result Comment: CUTO FF LEVEL: 5 NG/ML Performed By: #### D RUG3 ####[address] [id number] METHADONE SCREEN,U Negative Normal NEGATIVE [facility] Comment on above: Result Comment: CUTO FF LEVEL: 150 NG/ML The metabolite K-fnaot-qeutxrnprxmfhz (LAAM) is not detected by this method in concentrations that would be found in the urine of patients on LAAM therapy. Performed By: #### D RUG3 ####[address] [id number] OPIATES SCREEN,U Negative Normal NEGATIVE [facility] Comment on above: Result Comment: CUTO FF LEVEL: 300 NG/ML The opiate screen does not detect fentanyl, meperidine, or tramadol. Oxycodone is not consistently detected (refer to Oxycodone Screen, Urine result). Performed By: #### D RUG3 ####[address] [id number] OXYCODONE SCREEN,U Negative Normal NEGATIVE [facility] Comment on above: Result Comment: CUTO FF LEVEL: 100 NG/ML This test will accurately detect both oxycodone and oxymorphone. Performed By: #### D RUG3 ####[address] [id number] PCP SCREEN,U Negative Normal NEGATIVE [facility] Comment on above: Result Comment: CUTO FF LEVEL: 25 NG/ML Cross-reactivity has been reported with dextromethorphan. Performed By: #### D RUG3 ####[address] [id number] Daily Progress Note - Critic al Care-NSUon 02-19-2022 Daily Progress Note - Critical Care-NSU Service: Critical Care Service: ServiceNSU Subjective Data: ID Statement: LAWSON DOYLE is a 21 year old Male who is Hospital Day # 2 and ICU Day #2. Recent events noted. Pt doing better. Off Nicardipine drip. On oral BP Meds. Appreciate Renal Consultation. Objective Data: Objective Information T PRBPMAPSpO2 [id number] 5% Date/Time02/19 18: 18: 18: 18: 18: 18:00 Range(36.4C - 37C ) (78 - 138 ) (14 - 31 ) (118 - 232 )/ (36 - 137 ) (71 - 115 ) (92% - 100% ) Highest temp of 37 C was recorded at 02/18 20:35 Pain reported at 02/19 8:00: 0 = None ---- Intake and Output ----- Mn/Dy/[facility] Feb 19, 2022 2:00 [id number] Feb 19, 2022 6:00 [id number] The Intake and Output Totals for the last 24 hours are: IntakeTsaile [facility] CenterWeVideo.ItNorth [facility] [id number] Date: Weight/Scale Type: 19-Feb-2022 06:0082.3 kg / standing 18-Feb-2022 21:2384.4 kg / bed 18-Feb-2022 13:5286 kg ---- Intake and Output ----- Mn/Dy/Year [facility]IntakeUniversity [facility] Feb 19, 2022 2:00 [id number] Feb 19, 2022 6:00 [id number] The Intake and Output Totals for the last 24 hours are: IntakeMyNines [id number] Physical Exam by System: Neurological: alert and oriented x3, intact senses, motor, response and reflexes, normal strength Cardiovascular: Tachycardic. Regular, rate and rhythm, no murmurs, 2+ equal pulses of the extremities, normal S 1and S 2 Respiratory/Thorax: Patent airways, CTAB, normal breath sounds with good chest expansion, thorax symmetric Genitourinary: No Discharge, vesicles or other abnormalities Gastrointestinal: Nondistended, soft, non-tender, no rebound tenderness or guarding, no masses palpable, no organomegaly, +BS, no bruits Skin: Warm and dry. Right foot with scratch gaston. Musculoskeletal: ROM intact, no joint swelling, normal strength Constitutional: Well developed, awake/alert/oriented x3, no distress, alert and cooperative Eyes: PERRL, EOMI, clear sclera ENMT: mucous membranes moist, no apparent injury, no lesions seen. Head/Neck: Neck supple, no apparent injury, thyroid without mass or tenderness, No JVD, trachea midline, no bruits. Extremities: normal extremities, no cyanosi, no edema. Right hallux infection at the edge of toenail. Foul smelling. + localized swelling around the nail bed. No obvious drainage or erythema. Tender to touch. Lymphatic: No significant lymphadenopathy Psychological: Appropriate mood and behavior Allergies: Allergies: No Known Allergies: Medications: Medications: Continuous Medications --------- 1. niCARdipine (CARDENE) 40 mg/ NaCL 200 mL Premix Infusion: 2.5 mg/hr IntraVenous Scheduled Medications --------- 1. amLODIPine (NORVASC): 5 mg Oral Daily 2. Carvedilol: 12.5 mg Oral 2 Times a Day 3. Clindamycin: 300 mg Oral Every 6 Hours 4. cloNIDine (CATAPRES): 0.1 mg Oral 2 Times a Day 5. Docusate: 100 mg Oral 2 Times a Day 6. Heparin SubCutaneous: 5000 unit(s) SubCutaneous Every 8 Hours 7. Mupirocin 2%: 1 application(s) Topical Daily 8. Pantoprazole: 40 mg Oral Daily PRN Medications --------- 1. Acetaminophen: 650 mg Oral Every 4 Hours 2. Acetaminophen: 650 mg Oral Every 4 Hours 3. Magnesium Hydroxide -Al Hydrox -Simethicone Oral Liquid: 30 mL Oral Every 6 Hours 4. Melatonin: 6 mg Oral At Bedtime 5. Morphine Injectable: 2 mg IntraVenous Push Every 4 Hours 6. Ondansetron Injectable: 4 mg IntraVenous Push Every 4 Hours Recent Lab Results: Results: CBC: 02/19/2022 05:03 \\ Hgb / \\ 8.6 L / WBC Plt 13.1 H 283 / Hct \\ / 25.4 L \\ RBC: 2.83 L MCV: 90 CMP: 02/19/2022 05:03 NA+ Cl- BUN / 140 106 70 H / --------- Glucose ---- 109 H K+ HCO3- Creat \\ 4.9 23 6.88 H \\ \\ T Bili / \\ 0.3 / AST x ---- x ALT 10 x ---- x 9 L / Alk P \\ / 72 \\ Calcium : 8.5 L Anion Gap : 16 Albumin : 3.7 T Protein : 6.4 Results: Impression: 1. Trace amount nonspecific perinephric fluid adjacent to the upper pole of the right kidney. 2. No hydronephrosis is evident. Ultrasound Renal Bilateral [Feb 19 2022 10:24AM] Impression: No acute fracture or malalignment. Signed by Brady Carrizales DO Xray Foot Complete Min 3 View [Feb 18 2022 5:23PM] Impression: No acute cardiopulmonary disease. Signedby Brady Carrizales DO Xray Chest 1 View [Feb 18 2022 5:18PM] Assessment and Plan: Daily Risk Screen: Does patient have a central lineno Does patient have an indwelling urinary catheterno Is the patient intubatedno Assessment/Plan: Assessment/Plan: Assesment/ Plan per Dr. Grant- 1) CKD stage V -no indication for renal replacement therapy at the current time. If his GFR stabilizes around 11 and does no (more content not included)... Normal [facility] ELECTROLYTE, URINE SPOTon CHLORIDE,URINE SPOT 78 mmol/L Normal Not Established [facility] Comment on above: Performed By: #### M G #### [facility] [address] [place], [place] [id number] CHLORIDE/CREAT RATIO 149 mmol/g Creat Normal 23 - 275 [facility] Comment on above: Performed By: #### M G #### [facility] [address] [place], [place] [id number] POT/CREAT RATIO 56 mmol/g Creat Normal Not Established [facility] Comment on above: Performed By: #### M G #### [address] [id number] POTASSIUM,URINE SPOT 29 mmol/L Normal Not Established [facility] Comment on above: Performed By: #### M G #### [address] [id number] Sodium (U) [Moles/Vol] 76 mmol/L Normal Not Established [facility] Comment on above: Performed By: #### M G #### [address] [id number] SODIUM/CREAT RATIO 146 mmol/g Creat Normal Not Established [facility] Comment on above: Performed By: #### M G #### [address] [id number] UREA NITROGEN,URINE 295 mg/dL Normal Not Established [facility] Comment on above: Performed By: #### M G #### [address] [id number] UREA NITROGEN/CREAT RATIO 5.7 g/g Creat Normal Not Established [facility] Comment on above: Performed By: #### M G #### [address] [id number] OSMOLALITY,URINE SPOT 307 mOsm/kg Normal 200 - 1200 [facility] Comment on above: Performed By: #### M G #### [address] [id number] EOSINOPHIL SMEARon 2 Bacteria identified Cx Nom (Unsp spec) RARE Normal [facility] Comment on above: Performed By: #### R ENAL #### [address] [id number] EOSINOPHILS RARE Normal [facility] Comment on above: Performed By: #### R ENAL #### [address] [id number] NEUTROPHILS MODERATE Normal [facility] Comment on above: Performed By: #### R ENAL #### [address] [id number] Lab Specimen Source Urine Normal [facility] Comment on above: Performed By: #### R ENAL #### [address] [id number] FERRITINon 02-19-2022 FERRITIN 205 ug/L Normal 20 - 300 [facility] Comment on above: Performed By: #### F ERRI ####[id number] [place] [address] FOLATE, SERUMon 02-19-2022 Folate [Mass/Vol] 11.1 ng/mL Normal >5.0 [facility] Comment on above: Result Comment: Low <3.4 Borderline 3.4-5.0 Normal >5.0 . Patients receiving more than 5 mg/day of biotin may have interference in test results. A sample should be taken no sooner than eight hours after previous dose. Contact the testing laboratory for additional information. Performed By: #### F OLA2 ####[facility] [place], [place] [id number] IRON + TIBCon 02-19-2022 % SATURATION 11 % Low 25 - 45 [facility] Comment on above: Performed By: #### I RONT ####[address] [id number] TIBC 275 ug/dL Normal 240 - 445 [facility] Comment on above: Performed By: #### I RONT ####[address] [id number] Iron [Mass/Vol] 29 ug/dL Low 35 - 150 [facility] Comment on above: Performed By: #### I RONT ####[address] [id number] LIPID PANEL (CORONARY RISK 2 )on 02-19-2022 Cholesterol [Mass/Vol] 170 mg/dL Normal 0 - 199 [facility] Comment on above: Result Comment: . AGE DESIRABLE BORDERLINE HIGH HIGH 0-19 Y 0 - 169 170 - 199 >/= 200 20-24 Y 0 - 189 190 - 224 >/= 225 >24 Y 0 - 199 200 - 239 >/= 240 All ranges are based on fasting samples. Specific therapeutic targets will vary based on patient-specific cardiac risk. . Pediatric guidelines reference:Pediatrics 2011, 128(S5). Adult guidelines reference: NCEP ATPIII Guidelines, SCOTT 2001, 258:2486-97 . Venipuncture immediately after or during the administration of Metamizole may lead to falsely low results. Testing should be performed immediately prior to Metamizole dosing. Performed By: #### M G #### [address] [id number] Cholesterol in HDL [Mass/Vol] 34.4 mg/dL Abnormal [facility] Comment on above: Result Comment: . AGE VERY LOW LOW NORMAL HIGH 0-19 Y < 35 < 40 40-45 ---- 20-24 Y ---- < 40 >45 ---- >24 Y ---- < 40 40-60 >60 . Performed By: #### M G #### [address] [id number] Cholesterol in LDL [Mass/Vol] 110 mg/dL Normal 0 - 119 [facility] Comment on above: Result Comment: . NEAR BORD AGE DESIRABLE OPTIMAL HIGH HIGH VERY HIGH 0-19 Y 0 - 109 --- 110-129 >/= 130 ---- 20-24 Y 0 - 119 --- 120-159 >/= 160 ---- >24 Y 0 - 99 100-129 130-159 160-189 >/=190 . Performed By: #### M G #### [address] [id number] Cholesterol in VLDL [Mass/Vol] 25 mg/dL Normal 0 - 40 [facility] Comment on above: Performed By: #### M G #### [address] [id number] Cholesterol.total/Cho lesterol in HDL [Mass ratio] 4.9 {ratio} Normal [facility] Comment on above: Result Comment: REF VALUES DESIRABLE < 3.4 HIGH RISK > 5.0 Performed By: #### M G #### [address] [id number] NON-HDL CHOLESTEROL 136 mg/dL Normal 0 - 149 [facility] Comment on above: Result Comment: AGE DESIRABLE BORDERLINE HIGH HIGH VERY HIGH 0-19 Y 0 - 119 120 - 144 >/= 145 >/= 160 20-24 Y 0 - 149 150 - 189 >/= 190 ---- >24 Y 30 MG/DL ABOVE LDL CHOLESTEROL GOAL . Performed By: #### M G #### [address] [id number] Triglyceride [Mass/Vol] 127 mg/dL Normal 0 - 149 [facility] Comment on above: Result Comment: . AGE DESIRABLE BORDERLINE HIGH HIGH VERY HIGH 0 D-90 D 19 - 174 ---- ---- ---- 91 D- 9 Y 0 - 74 75 - 99 >/= 100 ---- 10-19 Y 0 - 89 90 - 129 >/= 130 ---- 20-24 Y 0 - 114 115 - 149 >/= 150 ---- >24 Y 0 - 149 150 - 199 200- 499 >/= 500 . Venipuncture immediately after or during the administration of Metamizole may lead to falsely low results. Testing should be performed immediately prior to Metamizole dosing. Performed By: #### M G #### [address] [id number] MAGNESIUMon 02-19-2022 Magnesium [Mass/Vol] 1.79 mg/dL Normal 1.60 - 2.40 [facility] Comment on above: Performed By: #### M G #### [address] [id number] PARATHYROID HORMONE,INTACTon 02-19-2022 PARATHYROID HORMONE,INTACT 353.9 pg/mL High 18.5 - 88.0 [facility] Comment on above: Performed By: #### P TH ####[id number] [place] [address] PHOSPHORUSon 02-19-2022 Phosphate [Mass/Vol] 5.1 mg/dL High 2.5 - 4.9 [facility] Comment on above: Result Comment: The performance characteristics of phosphorus testing in heparinized plasma have been validated by the individual laboratory site where testing is performed. Testing on heparinized plasma is not approved by the FDA; however, such approval is not necessary. Performed By: #### M G #### [facility] [address] [place], [place] [id number] PROT.ELECTRO,URN PATH REVIEW on 02-19-2022 PATH REVIEW-UPE Canceled Normal [facility] Comment on above: Order Comment: TEST PROT.ELECTRO,URN PATH REVIEW WAS CANCELLED, 02/19/2022 11:[id number]_[id number]. Result Comment: By h er/his signature above, the Pathologist listed as making the final interpretation certifies that she/he has personally reviewed this case. Performed By: #### P R14 ####[id number] [place] [address] PROTEIN ELECTROPHORESIS, RAN DOMon 02-19-2022 ALBUMIN % Canceled Normal [facility] Comment on above: Order Comment: TEST PROTEIN ELECTROPHORESIS, RANDOM WAS CANCELLED, 02/19/2022 11:56 QNS,PLEASE RESUBMIT.. Performed By: #### E LUSP ####[facility] [place], [place] [id number] [place] [address] ALPHA 1 GLOBULIN % Canceled Normal [facility] Comment on above: Order Comment: TEST PROTEIN ELECTROPHORESIS, RANDOM WAS CANCELLED, 02/19/2022 11:56 QNS,PLEASE RESUBMIT.. Performed By: #### E LUSP ####[facility] [place], [place] [id number] [place] [address] ALPHA 2 GLOBULIN % Canceled Normal [facility] Comment on above: Order Comment: TEST PROTEIN ELECTROPHORESIS, RANDOM WAS CANCELLED, 02/19/2022 11:56 QNS,PLEASE RESUBMIT.. Performed By: #### E LUSP ####[address] [id number] [place] [address] BETA GLOBULIN % Canceled Normal [facility] Comment on above: Order Comment: TEST PROTEIN ELECTROPHORESIS, RANDOM WAS CANCELLED, 02/19/2022 11:56 QNS,PLEASE RESUBMIT.. Performed By: #### E LUSP ####[address] [id number] [place] [address] GAMMA GLOBULIN % Canceled Normal [facility] Comment on above: Order Comment: TEST PROTEIN ELECTROPHORESIS, RANDOM WAS CANCELLED, 02/19/2022 11:56 QNS,PLEASE RESUBMIT.. Performed By: #### E LUSP ####[address] [id number] [place] [address] INTERPRETATION Canceled Normal [facility] Comment on above: Order Comment: TEST PROTEIN ELECTROPHORESIS, RANDOM WAS CANCELLED, 02/19/2022 11:56 QNS,PLEASE RESUBMIT.. Performed By: #### E LUSP ####[address] [id number] [place] [address] TOTAL PROT,URINE SPOT Canceled High 5 - 25 [facility] Comment on above: Order Comment: TEST PROTEIN ELECTROPHORESIS, RANDOM WAS CANCELLED, 02/19/2022 11:56 QNS,PLEASE RESUBMIT.. Performed By: #### E LUSP ####[address] [id number] [place] [address] SEDIMENTATION RATE, ERYTHROC YTEon 02-19-2022 SEDIMENTATION RATE, ERYTHROCYTE 69 mm/h High 0 - 15 [facility] Comment on above: Result Comment: Toni brown note new reference ranges as of 07/25/2021. Ran on alternate instrument Reference Ranges: Males: 0-15 Females: 0-20 Children under 18: 0-10 Performed By: #### E SRWS ####[address] [id number] TOTAL PROTEIN, URINE SPOTon 02-19-2022 T. PROTEIN/CREAT RATIO 3.85 mg/mg Creat High 0.00 - 0.17 [facility] Comment on above: Performed By: #### T PS2 #### [address] [id number] TOTAL PROT,URINE SPOT 201 mg/dL High 5 - 25 [facility] Comment on above: Performed By: #### T PS2 #### [address] [id number] CREATININE,URINE 52.2 mg/dL Normal 20.0 - 370.0 [facility] Comment on above: Performed By: #### T PS2 #### [address] [id number] Performed By: #### A LBSP ####[address] [id number] Performed By: #### M G #### [address] [id number] TSH WITH REFLEX TO FREE T4 I F ABNORMALon 02-19-2022 TSH Qn 1.45 m[IU]/L Normal 0.44 - 3.98 [facility] Comment on above: Result Comment: TSH testing is performed using different testing methodology at [facility] than at other [facility]. Direct result comparisons should only be made within the same method. Performed By: #### M G #### [address] [id number] UA MICROSCOPICon 02-19-2022 Mucus Ql (Urine sed) 1+ /LPF Normal [facility] Comment on above: Performed By: #### M G #### [address] [id number] RBC 58 /HPF Abnormal 0-5 [facility] Comment on above: Performed By: #### M G #### [address] [id number] WBC 1 /HPF Normal 0-5 [facility] [facility] Comment on above: Performed By: #### M G #### [address] [id number] URIC ACIDon 02-19-2022 Urate [Mass/Vol] 9.0 mg/dL High 4.0 - 7.5 [facility] Comment on above: Result Comment: Shelbie puncture immediately after or during the administration of Metamizole may lead to falsely low results. Testing should be performed immediately prior to Metamizole dosing. Performed By: #### U ANKUSH #### [address] [id number] URINALYSIS WITH CULTURE IF I NDICATEDon 02-19-2022 Appearance (U) CLEAR Normal CLEAR [facility] Comment on above: Performed By: #### P TINR #### [address] [id number] Bilirubin Ql (U) Negative Normal NEGATIVE [facility] Comment on above: Performed By: #### P TINR #### [address] [id number] Color (U) STRAW Normal STRAW,YELLOW [facility] Comment on above: Performed By: #### P TINR #### [address] [id number] Glucose Ql (U) Negative Normal NEGATIVE [facility] Comment on above: Performed By: #### P TINR #### [address] [id number] Hemoglobin Ql (U) MODERATE (2+) Abnormal NEGATIVE [facility] Comment on above: Performed By: #### P TINR #### [address] [id number] Ketones Ql (U) Negative Normal NEGATIVE [facility] Comment on above: Performed By: #### P TINR #### [address] [id number] Leukocyte esterase Test strip Ql (U) Negative Normal NEGATIVE [facility] Comment on above: Performed By: #### P TINR #### [address] [id number] Nitrite Ql (U) Negative Normal NEGATIVE [facility] Comment on above: Performed By: #### P TINR #### [address] [id number] pH (U) 7.0 [pH] Normal 5.0 - 8.0 [facility] Comment on above: Performed By: #### P TINR #### [address] [id number] Protein Ql (U) >=300 + Abnormal NEGATIVE [facility] Comment on above: Performed By: #### P TINR #### [address] [id number] Specific gravity (U) [Rel density] 1.025 Normal 1.005 - 1.035 [facility] Comment on above: Performed By: #### P TINR #### [address] [id number] Urobilinogen (U) [Mass/Vol] mg/dL Normal 0.0 - 1.9 [facility] Comment on above: Performed By: #### P TINR #### [address] [id number] RENAL BILATon 02-19-2022 US RENAL BILAT Patient Name: LAWSON DOYLE STUDY: Renal ultrasound dated 02/19/2022. INDICATION: DENNY COMPARISON: Ultrasound dated 10/23/2016. ACCESSION NUMBER(S): [id number] ORDERING CLINICIAN: FÁTIMA COOPER TECHNIQUE: Mutliplanar grayscale and color Doppler ultrasound evaluation of the kidneys and urinary bladder. FINDINGS: RIGHT KIDNEY: The right kidney measures 9.9 in length. No hydronephrosis. No contour deforming mass or urinary tract calculus. There is a trace amount of perinephric fluid seen adjacent to the upper pole of the right kidney. LEFT KIDNEY: The left kidney measures 10.5 in length. No hydronephrosis. No mass, calculus, or perinephric abnormality. BLADDER: Partially distended; normal. IMPRESSION: 1. Trace amount nonspecific perinephric fluid adjacent to the upper pole of the right kidney. 2. No hydronephrosis is evident. Electronically signed by: CARLOS RUGGIERO MD Normal [facility] VITAMIN B12on 02-19-2022 Cobalamin (Vitamin B12) [Mass/Vol] 344 pg/mL Normal 211 - 911 [facility] Comment on above: Performed By: #### V TB12 ####[facility] [place], [place] [id number] Admission Risk Screen - Adul ton 02-18-2022 Admission Risk Screen - Adult Allergies: Allergies: No Known Allergies: Patient Verification: New W ID Band Applied in my Departmentyes Patient Identity Verified Byparent/legal guardian ID Band FULL Name, include Middle, spelling matches patient's ID used for verificationyes ID Band Matches Patient ID used for Verficationyes ID Band MRN Matches EMR MRNyes Visitor Restriction: Coronavirus Visitor Restriction: Reasonable restrictions to in-person visitors will be observed due to current coronavirus pandemic. Travel History: COVID-19 Screening Completedno exposure or symptoms(1) Travel or Exposure Past 30 DaysNO travel to International locations in the past 30 days Ebola AlertFor Ebola-like Symptoms: Isolate Patient and Notify Provider/Payment Collector For Contact: Notify Provider/Payment Collector Advance Directive: Advance Directive/DNRno Advance Directive Information Givenpatient/family declined [place] Fall Screen: History of falling (immediate or previous)no (0) Secondary Diagnosisno (0) Intravenous Therapy/ Heparin/Saline Lockyes (20) Gait/Transferringnormal /bedrest/wheelchair (0) Ambulatory Aidsnone/bedrest/nurse assist (0) Mental Statusoriented to own ability (0) Score: Low risk (<25). Moderate risk (25-44). High risk (>44).20 [place] InterventionsLOW INTERVENTIONS: *patient oriented to surroundings and call system, * patient/family falls education completed and documented, *patients fall status communicated during bedside handoff, *whiteboard updated, *mode of toileting discussed with patient, *bed in low position with brakes locked, *call light in reach, * non-skid footwear Family Violence Screen: Are you or have you been threatened or abused physically, emotionally, or sexually by anyoneno Do you feel UNSAFE going back to the place where you are livingno Clinical assessment: Are there any apparent signs of injuries/behaviors that could be related to abuse/neglectno Social Service Consult for abuse/neglect needed this visitno Functional Screen: Functional Screen: In the recent/past 2-4 weeks, patient or family have noticedno issues that require a speech/language consult at this time AM-PAC- Basic Mobility/Daily Activity: Patient baseline bedboundno Turning from your back to your side while in a flat bed without using bedrailsnone Moving from lying on your back to sitting on the side of a flat bed without using bedrailsnone Moving to and from bed to chair (including a wheelchair)none Standing up from a chair using your arms (e.g. wheelchair or bedside chair) none To walk in hospital roomnone Climbing 3-5 steps with railingnone Basic Mobility - Total Score24 Putting on and taking off regular lower body clothingnone Bathing (including washing, rinsing, drying)none Putting on and taking off regular upper body clothingnone Toileting, which includes using toilet, bedpan or urinalnone Taking care of personal grooming such as brushing teethnone Eating Mealsnone Daily Activity - Total Score24 Learning Assessment (Patient): Patient is Able to be Assessed for Learningyes Factors Influencing Readiness to Learnacuteness of illness Factors that Impact Ability to Learnnone Devices/Methods Used to Communicatenone Learning Preferencesverbal instruction; written material Cultural Considerationsnone Developmental Considerationsnone Jewish Considerationsnone Learning Assessment (Other Learner): Other learner availableno Depression Screen: During the past month, have you often been bothered by feeling down, depressed or hopelessno During the past month, have you often had little interest or pleasure in doing thingsno Have you had any thoughts of harming anyone elseno (1) [place] Suicide: Risk Screen Not Applicable/Able to Answerable to be screened In the Past Month: Have you wished you were or could go to sleep and not wake upno(1) In the Past Month: Have you had any actual thoughts of killing yourself no(1) Lifetime: Have you ever done, started to do, or prepared to do anything to end your lifeno [place] Suicide Risknegative Adult Nutrition Screen: Have you recently lost weight without tryingno Have you been eating poorly because of a decreased appetiteno Malnutrition Screening Tool Score0 Malnutrition Screening Tool RiskMST = 0 or 1 Not at risk. Eating well with little or no weight loss Nutrition Consult needed this visitno Can Patient Participate in Room Serviceyes Patient requires Paper Dishes/Plastic Utensilsno Pain Screen: Pain Scalenumerical 0-10 Pain Scale Educationteaching provided Current Pain Level4 = Moderate Acceptable Pain Level4 = Moderate Expression of Pain (nonverbal)none, grimace, verbalization Chronic Painno Spiritual Screen: Are there any cultural, spiritual, episcopal practices/values/needs that are important for us to knowno CAGE: Is this an (more content not included)... Normal [facility] BASIC METABOLIC PANELon 12-0 -2021 Anion gap [Moles/Vol] 16 mmol/L Normal 10 - 20 [facility] Comment on above: Performed By: #### T PS2 #### [address] [id number] Calcium [Mass/Vol] 8.7 mg/dL Normal 8.6 - 10.3 [facility] Comment on above: Performed By: #### T PS2 #### [address] [id number] Chloride [Moles/Vol] 102 mmol/L Normal 98 - 107 [facility] Comment on above: Performed By: #### T PS2 #### [address] [id number] Creatinine [Mass/Vol] 6.42 mg/dL High 0.50 - 1.30 [facility] Comment on above: Performed By: #### T PS2 #### [address] [id number] GFR/1.73 sq M.predicted among non-blacks MDRD (S/P/Bld) [Vol rate/Area] 12 mL/min/{1.73_m2} Abnormal >90 [facility] Comment on above: Result Comment: CALC ULATIONS OF ESTIMATED GFR ARE PERFORMED USING THE 2020 CKD-EPI STUDY REFIT EQUATION WITHOUT THE RACE VARIABLE FOR THE IDMS-TRACEABLE CREATININE METHODS. https://jasn.asnjournals.org/content/early//ASN.520943 0787 Performed By: #### T PS2 #### [address] [id number] Glucose [Mass/Vol] 96 mg/dL Normal 74 - 99 [facility] Comment on above: Performed By: #### T PS2 #### [address] [id number] HCO3 (Bld) [Moles/Vol] 25 mmol/L Normal 21 - 32 [facility] Comment on above: Performed By: #### T PS2 #### [address] [id number] Potassium [Moles/Vol] 5.0 mmol/L Normal 3.5 - 5.3 [facility] Comment on above: Performed By: #### T PS2 #### [address] [id number] Sodium [Moles/Vol] 138 mmol/L Normal 136 - 145 [facility] Comment on above: Performed By: #### T PS2 #### [address] [id number] Urea nitrogen [Mass/Vol] 68 mg/dL High 6 - 23 [facility] Comment on above: Performed By: #### T PS2 #### [address] [id number] BLOOD CULTURE, BACTERIALon 1 04-21-2021 BLOOD CULTURE, BACTERIAL PATIENT: LAWSON DOYLE LOCATION: [address]#: [id number] : 89 AGE: SEX: M ORDERED BY: VELMA JOSEPH SOURCE: Blood COLLECTED: 02/18/22 17:37 ANTIBIOTICS AT YANN.: RECEIVED : 02/18/22 22:49 SITE: R E S U L T S BLOOD CULTURE, BACTERIAL FINAL 02/22/22 23:42 No Growth at 1 days No Growth at 2 days No Growth at 3 days NO GROWTH at 4 days - FINAL REPORT Normal [facility] Comment on above: Performed By: #### G APC1 #### [address] [id number] BLOOD CULTURE, BACTERIAL PATIENT: LAWSON DOYLE LOCATION: [place] DEY#: [id number] : 89 AGE: SEX: M ORDERED BY: VELMA JOSEPH SOURCE: Blood COLLECTED: 02/18/22 16:31 ANTIBIOTICS AT YANN.: RECEIVED : 02/18/22 22:51 SITE: R E S U L T S BLOOD CULTURE, BACTERIAL FINAL 02/22/22 23:42 No Growth at 1 days No Growth at 2 days No Growth at 3 days NO GROWTH at 4 days - FINAL REPORT Normal [facility] Comment on above: Performed By: #### G APC1 #### [address] [id number] BNPon 02-18-2022 Natriuretic peptide B (Bld) [Mass/Vol] 149 pg/mL High 0 - 99 [facility] Comment on above: Result Comment: . <1 00 pg/mL - Heart failure unlikely 100-299 pg/mL - Intermediate probability of acute heart . failure exacerbation. Correlate with clinical . context and patient history. >=300 pg/mL - Heart Failure likely. Correlate with clinical . context and patient history. BNP testing is performed using different testing methodology at [facility] than at other [facility]. Direct result comparisons should only be made within the same method. Performed By: #### T PS2 #### [address] [id number] CBC AND DIFFERENTIALon 02-18 % AUTOMATED IMMATURE GRAN 0.4 % Normal 0.0 - 0.9 [facility] Comment on above: Result Comment: Litzy ture Granulocyte Count (IG) includes promyelocytes, myelocytes and metamyelocytes but does not include bands. Percent differential counts (%) should be interpreted in the context of the absolute cell counts (cells/L). Performed By: #### T PS2 #### [address] [id number] Basophils (Bld) [#/Vol] 0.04 10*3/uL Normal 0.00 - 0.10 [facility] Comment on above: Performed By: #### T PS2 #### [address] [id number] Basophils/100 WBC (Bld) 0.3 % Normal 0.0 - 2.0 [facility] Comment on above: Performed By: #### T PS2 #### [address] [id number] Eosinophils (Bld) [#/Vol] 0.73 10*3/uL High 0.00 - 0.70 [facility] Comment on above: Performed By: #### T PS2 #### [address] [id number] Eosinophils/100 WBC (Bld) 4.6 % Normal 0.0 - 6.0 [facility] Comment on above: Performed By: #### T PS2 #### [address] [id number] Erythrocyte distribution width (RBC) [Ratio] 11.8 % Normal 11.5 - 14.5 [facility] Comment on above: Performed By: #### T PS2 #### [address] [id number] Hematocrit (Bld) [Volume fraction] 28.3 % Low 41.0 - 52.0 [facility] Comment on above: Performed By: #### T PS2 #### [address] [id number] Hemoglobin (Bld) [Mass/Vol] 9.6 g/dL Low 13.5 - 17.5 [facility] Comment on above: Performed By: #### T PS2 #### [address] [id number] Lymphocytes (Bld) [#/Vol] 2.00 10*3/uL Normal 1.20 - 4.80 [facility] Comment on above: Performed By: #### T PS2 #### [address] [id number] Lymphocytes/100 WBC (Bld) 12.7 % Normal 13.0 - 44.0 [facility] Comment on above: Performed By: #### T PS2 #### [address] [id number] MCHC (RBC) [Mass/Vol] 33.9 g/dL Normal 32.0 - 36.0 [facility] Comment on above: Performed By: #### T PS2 #### [address] [id number] MCV (RBC) [Entitic vol] 90 fL Normal 80 - 100 [facility] Comment on above: Performed By: #### T PS2 #### [address] [id number] Monocytes (Bld) [#/Vol] 0.78 10*3/uL Normal 0.10 - 1.00 [facility] Comment on above: Performed By: #### T PS2 #### [address] [id number] Monocytes/100 WBC (Bld) 4.9 % Normal 2.0 - 10.0 [facility] Comment on above: Performed By: #### T PS2 #### [address] [id number] Neutrophils (Bld) [#/Vol] 12.18 10*3/uL High 1.20 - 7.70 [facility] Comment on above: Performed By: #### T PS2 #### [address] [id number] Neutrophils/100 WBC (Bld) 77.1 % Normal 40.0 - 80.0 [facility] Comment on above: Performed By: #### T PS2 #### [address] [id number] Platelets (Bld) [#/Vol] 310 10*3/uL Normal 150 - 450 [facility] Comment on above: Performed By: #### T PS2 #### [address] [id number] RBC 3.13 x10E12/L Low 4.50 - 5.90 [facility] Comment on above: Performed By: #### T PS2 #### [address] [id number] WBC (Bld) [#/Vol] 15.8 10*3/uL High 4.4 - 11.3 [facility] Comment on above: Performed By: #### T PS2 #### [address] [id number] CREATINE KINASEon 02-18-2022 CK [Catalytic activity/Vol] 111 U/L Normal 0 - 325 [facility] Comment on above: Performed By: #### P TINR #### [address] [id number] Covid 19 Resultson 2 SARS-CoV-2 (COVID-19) RNA MIGUEL+probe Ql (Unsp spec) NEGATIVE COVID-19 Test Coronaviruses are common world-wide and are the cause of many common colds. SARS-COV2 is a new coronavirus that began circulating worldwide in 2019 so we are calling it COVID-19. It has been estimated that four out of five patients with COVID-19 will recover at home without the need for medical attention. Symptoms of COVID-19 may include cough, fever, shortness of breath, loss of taste or smell and other flu-like symptoms including chills, sore muscles, sore throat, and headache. Severe illness is more common in older people and people with other health problems such as high blood pressure, obesity, and immune system problems. If the test is positive, you have COVID-19. You will be contacted by the ordering physicians office and instructed to remain on home isolation, in accordance with CDC guidelines. You may also be contacted by the [facility] to see if any of your close contacts may have been exposed to the virus and need to quarantine. If the test is negative, you likely do not have COVID-19 at this time, but you still may have a different illness that can spread to other people (like Influenza, or the Flu) and could still be at risk for getting COVID-19. We recommend that you stay away from other people to limit the spread of illness until your symptoms are improving and you are fever-free for 24 hours without the use of fever lowering medications such as acetaminophen or ibuprofen. No test is 100% accurate so if you are still concerned you may have COVID-19, talk to your doctor about the need to continue to stay away from others. Medicines Unless your provider told you not to use the following: Acetaminophen (Tylenol and others) is generally safe. Anti-inflammatory medications, such as Ibuprofen (Advil or Motrin) or Naproxen (Aleve) can also be used. Fnoh-qee-oymumvm cough and cold medicines can be used according to the instructions on the package. Some slkf-qsy-iptneij medicines also contain acetaminophen. Make sure you are not taking more than your recommended dose. For those not hospitalized, there is no specific treatment available for this illness. Antibiotics do not treat Coronaviruses. Follow-Up Follow up with your doctor by scheduling a virtual visit or consider follow-up at one of our urgent care fever clinics. If you are having difficulty breathing, or are very weak and having difficulty standing, this is a medical emergency. Call 911 or have someone take you to the nearest emergency room immediately. If possible, wear a facemask. Additional guidance from the CDC for patients who tested POSITIVE for COVID-19 How to isolate: Isolate yourself in a specific room at home and limit your contact with others. Use a separate bathroom from other members of the household, when possible. Leave home only to get essential medical care. Do not go to work, school or public areas. Avoid using public transportation, ride-sharing, or taxis. Restrict contact with pets and other animals. If you must care for your pet or be around animals while you are sick, wash your hands before and after your interaction and wear a facemask. Make sure that shared spaces in the home have good airflow, such as by an air conditioner or an opened window, weather permitting. Personal Hygiene Procedures: Wear a face mask when in the same room as other people or pets. If a face mask interferes with your breathing, others should wear a mask when sharing space with you. Frequent hand-washing: wash your hands with soap and water for at least 20 seconds. If soap and water are not available, use alcohol-based hand equipment associate. Avoid touching your eyes, nose, and mouth with unwashed hands. Household Hygiene Procedures: Avoid sharing personal household items such as dishes, glassware, cups, eating utensils, towels or bedding with other people or pets in your home. After use, these items should be washed with soap and hot water. Disinfect all high-touch surfaces every day with antibacterial cleaning solutions such as Lysol wipes, bleach, cleansers, etc. High-touch surfaces include tabletops, doorknobs, bathroom fixtures, toilets, phones, keyboards, tablets and bedside tables. Immediately clean any surfaces that may have blood, poop or body fluids on them, using antibacterial cleaning solutions such as Lysol wipes, bleach, cleansers, etc. If clothing or bedding come into contact with blood, poop or body fluids, they should be washed immediately. Follow the directions on the laundry detergent and clothing labels but hot water is recommended when possible. Stopping home isolation precautions: If possible, consult your doctor before stopping home isolation precautions. According to the CDC, you can discontinue home isolation precautions when you have met both of these criteria: Your fever and respiratory symptoms have been gone for 24 shayne (more content not included)... Normal [facility] GROUP A STREP,PCRon 02-19-20 GROUP A STREP,PCR Not detected Normal Not Detected [facility] Comment on above: Result Comment: This test was performed utilizing an FDA- cleared rapid nucleic acid amplification by PCR to qualitatively detect Group A Streptococci from throat swab specimens without the need for culture confirmation of negative results. Performed By: #### G APC1 #### [address] [id number] Lab Specimen Source Throat Normal [facility] Comment on above: Performed By: #### G APC1 #### [address] [id number] HEPATIC FUNCTION PANELon Bilirubin.indirect [Mass/Vol] 0.0 mg/dL Normal 0.0 - 0.3 [facility] Comment on above: Result Comment: This is a corrected result. Previous value was - 0.0, verified at 02/18/2022 21:25 Performed By: #### P TINR #### [address] [id number] Albumin [Mass/Vol] 4.0 g/dL Normal 3.4 - 5.0 [facility] Comment on above: Performed By: #### P TINR #### [address] [id number] ALP [Catalytic activity/Vol] 84 U/L Normal 33 - 120 [facility] Comment on above: Performed By: #### P TINR #### [address] [id number] ALT [Catalytic activity/Vol] 11 U/L Normal 10 - 52 [facility] Comment on above: Result Comment: Lalita ents treated with Sulfasalazine may generate falsely decreased results for ALT. Performed By: #### P TINR #### [address] [id number] AST [Catalytic activity/Vol] 10 U/L Normal 9 - 39 [facility] Comment on above: Performed By: #### P TINR #### [address] [id number] Bilirubin [Mass/Vol] 0.2 mg/dL Normal 0.0 - 1.2 [facility] Comment on above: Performed By: #### P TINR #### [address] [id number] Protein [Mass/Vol] 7.0 g/dL Normal 6.4 - 8.2 [facility] Comment on above: Performed By: #### P TINR #### [address] [id number] INFLUENZA A/B, COVID 2019 PC R,SYMPTOMATICon 02-18-2022 INFLUENZA A, PCR Not detected Normal Not Detected [facility] Comment on above: Result Comment: Resp iratory virus testing is performed routinely by PCR for Influenza A/B and RSV. Not Detected results do not preclude Influenza A/B or RSV infections since the adequacy of sample collection or low viral burden may impact the clinical sensitivity of this test method. Performed By: #### P TINR #### [address] [id number] INFLUENZA B, PCR Not detected Normal Not Detected [facility] Comment on above: Result Comment: Resp iratory virus testing is performed routinely by PCR for Influenza A/B and RSV. Not Detected results do not preclude Influenza A/B or RSV infections since the adequacy of sample collection or low viral burden may impact the clinical sensitivity of this test method. Performed By: #### P TINR #### [address] [id number] SARS-CoV-2 (COVID-19) RNA MIGUEL+probe Ql (Unsp spec) Not detected Normal Not Detected [facility] Comment on above: Result Comment: . This test has received FDA Emergency Use Authorization (EUA) and has been verified by [facility]. This test is only authorized for the duration of time that circumstances exist to justify the authorization of the emergency use of in vitro diagnostic tests for the detection of SARS-CoV-2 virus and/or diagnosis of COVID-19 infection under section 564(b)(1) of the Act, 21 U.S.C. 360bbb-3(b)(1), unless the authorization is terminated or revoked sooner. [facility] is certified under CLIA-88 as qualified to perform high complexity testing. Testing is performed in the [facility] laboratory located at [address] [place] [address], [facility] [facility]35. SARS-CoV-2/Flu/RSV Multiplex Test: Fact sheet for providers: https://www.fda.gov/media/514175/download Fact sheet for patients: https://www.fda.gov/media/759996/download Performed By: #### P TINR #### [address] [id number] Lab Specimen Source Nasal, Nasopharyngeal Normal [facility] Comment on above: Performed By: #### P TINR #### [address] [id number] LACTATEon 02-18-2022 Lactate [Moles/Vol] 0.5 mmol/L Normal 0.4 - 2.0 [facility] Comment on above: Result Comment: Shelbie puncture immediately after or during the administration of Metamizole may lead to falsely low results. Testing should be performed immediately prior to Metamizole dosing. Performed By: #### P TINR #### [address] [id number] MISCELLANEOUS CULT./SM.BACT. on 02-18-2022 MISCELLANEOUS CULT./SM.BACT. PATIENT: LAWSON DOYLE LOCATION: [address]#: [id number] : 89 AGE: SEX: M ORDERED BY: VELMA JOSEPH SOURCE: WOUND/ABSCESS COLLECTED: 02/18/22 17:57 ANTIBIOTICS AT YANN.: RECEIVED : 02/18/22 23:17 SITE: Right great toe R E S U L T S GRAM STAIN FINAL 02/19/22 07:43 NO GRANULOCYTES SEEN. 4+ GRAM (+) COCCI MISCELLANEOUS CULT./SM.BACT. FINAL 02/22/22 11:12 1+ AEROBIC MIXED BACTERIA 4+ ANAEROBIC MIXED BACTERIA ISOLATE1 : Group B streptococcus 4+ ISOLATE2 : Staphylococcus aureus 4+ METHICILLIN(OXACILLIN)S USCEPTIBLE STAPHYLOCOCCI ARE SUSCEPTIBLE TO SEMI-SYNTHETIC PENICILLINS (OXACILLIN,NAFCILLIN, ETC),BETA-LACTAM/BETA-L ACTAMASE INHIBITOR COMBINATIONS(INCLUDING AMPICILLIN/SULBACTAM, AMOXICILLIN/CLAVULANATE AND PIPERACILLIN/TAZOBACTAM ), CARBAPENEMS AND CEPHALOSPORINS APPROVED FOR USE BY THE FDA FOR STAPHYLOCOCCAL INFECTIONS. Organism Group B strep S aureus Antibiotic BP INTRP BP INTRP Clindamycin S R Erythromycin R R Penicillin S Oxacillin S Trimeth/Sulfa S Tetracycline S Vancomycin S S=SUSCEPTIBLE I=INTERMEDIATE R=RESISTANT SDD=SUSCEPTIBLE DOSE DEPENDENT NS=NONSUSCEPTIBLE X=REPORTED IN ERROR Normal [facility] Comment on above: Performed By: #### G APC1 #### [facility] [address] [facility], [place] [id number] PT/INRon 02-18-2022 PT Coag (PPP) [Time] 10.9 s Normal 9.8 - 13.4 [facility] Comment on above: Performed By: #### Juju G #### [facility] [address] [facility], [place] [id number] PT, INR 0.9 Normal 0.9 - 1.1 [facility] Comment on above: Performed By: #### M G #### [facility] [address] [place], [place] [id number] Patient Profile - Adult v2on 02-18-2022 Patient Profile - Adult v2 Profile: Initial Info: How to be AddressedCurtis Spoken Language PreferredEnglish Source of Informationpatient Stated Reason for AdmissionPain in right great toe with sore throat and ear pain. Primary Contact Name and NumberEduardo (Father) [phone] Wants Family/Rep Notified of Admissionno Notify PCPdo not notify PCP Informed of Patient Visiting Rightsyes Limitations on Visitors/Phone Callsnone [place] Patient Belongingsremains with patient Patient Belongings Remaining with Patientclothing; cell phone/electronics Medications Brought to Hospitalno General Health: Weight in kg84.4 kilogram(s) Weight in vpc869 pound(s) Weight Methodactual (measured) Scale Typebed Height in cm175.2 centimeter(s)(1) Height in feet5 feet Height in inches8.98 inch(es) Height Methodstated BMI (kg/m2)27.496 square meter RSP Based Care: How would you like to participate in your careEducate on plan of care. What is the number one concern for you during this hospitalizationMy toe What is the most important thing we can do to support you during this hospitalizationI have to make a phone call tonight Is there anything we need to know to best care for youNo Substance: Smoking Statusnever smoker Alcohol Usedenies Drug Usedenies Health Mgmt: Symptoms/Conditions Managed at Homecardiovascular Cardiovascular Symptoms/Conditionshype rtension Cardiovascular Managementnot managed Barriers to Managing Healthage Relationship/Environ: Resource/Environmental Concernsnone Primary Source of Support/Comfortfriend; parent; extended family Lives Withgrandparent(s); parent(s) Living Arrangementshouse Services Anticipated at Transitionnone Anticipated Transition [facility] Significant IndicatorsComplete Information Review: Allergies, Home Meds and Significant Events have been Reviewed and Verified with Patient/Familyyes ALLERGY, INTOLERANCE, ADVERSE EVENT: Allergies: No Known Allergies: Active Electronic Signatures: Jo Phillips (STAFF N) (Signed 18-Feb-2022 21:39) Authored: Initial Info, General Health, RSP Based Care, Substance, Health Mgmt, Relationship/Environ, Additional Information Last Updated: 18-Feb-2022 21:39 by Jo Phillips (STAFF N) References: 1. Data Referenced From 1. Vital Signs 18-Feb-2022 13:52 Normal [facility] Provider Note - ED v3on 12-0 Provider Note - ED v3 Provider Note: Chart Review: ED NOTES ED NOTES: This is a 21-year-old male who presents to the emergency department for complaints of an infected right great toe, flulike symptoms including a sore throat and ear pain and just not feeling well. He states he does have a history of hypertension and takes lisinopril but does not follow with a regular doctor, stating that he has just been using his refills and not following up. He has not had blood work in years. He states that he has a family history of kidney failure and high blood pressure. He denies headache, visual disturbance, chest pain, shortness of breath, abdominal pain, vomiting, diarrhea, change in urine output, dysuria, sensorimotor changes, paresthesias. He denies fevers. States that he has a an ingrown toenail on the right and it is now draining pus and red and swollen and causing him a lot of pain. Last tetanus vaccination was 2 years ago. Past medical history: Hypertension Social history: Denies HISTORY OF PRESENTING ILLNESS LAWSON is a 21 year old Male and was seen by me at 18-Feb-2022 15:33 for a chief complaint of flu-like symptoms (pt states he has had an ear ache and sore throat since yesterday. Pt has high BP in triage, but states he is already being treated for it, Pt states he has not taken his meds today and cant remember if he took them yesterday or not.)(1). Triage Information: Most recent Vital Sign Value Date Temp (F): 98.4 02-18-2022 13:52 Temp (C): 36.9 02-18-2022 13:52 Heart Rate (beats/min): 98 02-18-2022 13:52 Respirations (breaths/min): 19 02-18-2022 13:52 SpO2 (%): 100 02-18-2022 13:52 BP Systolic (mm Hg): 221 02-18-2022 13:52 BP Diastolic (mm Hg): 137 02-18-2022 13:52 PAST MEDICAL HISTORY ALLERGIES/INTOLERANCES: No Known Allergies HEALTH HISTORY: No documented data. OUTPATIENT MEDICATIONS: Home Medications Review Status for Reconciliation: N/A Med Status: N/A No documented data. SIGNIFICANT EVENTS: Past Medical History Description:HTN REVIEW OF SYSTEMS All other systems reviewed and are negative PHYSICAL EXAM CONSTITUTIONAL: Well appearing, well nourished, awake, alert, oriented to person, place, time/situation and in no apparent distress. HENMT: No evidence of trauma to the head. No raccoon eyes, tilley sign, epistaxis, bleeding from ears. Full range of motion of facial muscles intact. Equal sensation bilateral face. No facial asymmetry or tongue deviation. Impacted cerumen in both ears so I am unable to visualize his tympanic membranes. Normal-appearing pharynx. EYES: Clear bilaterally, pupils equal, round and reactive to light. CARDIOVASCULAR: Normal rate, regular rhythm. Heart sounds S1, S2. No murmurs, rubs or gallops. PMI non-displaced. RESPIRATORY: Breath sounds clear and equal bilaterally. GASTROINTESTINAL: Abdomen soft, non-distended, no rebound, no guarding. Bowel sounds normal in all 4 quadrants. MUSCULOSKELETAL: FROM and sensation are intact in UE and LE. 5/5 strength equal bilaterally. 2+ pulses intact and capillary refill <2s. NEUROLOGICAL: Abrasion over the top of the right foot which does not appear acutely infected but right great toe is erythematous, edematous and there is purulent drainage around the ingrown toenail which is dried and crusted. There does not appear to be a subungual abscess. SKIN: Skin normal color for race, warm, dry and intact. No evidence of trauma. PSYCHIATRIC: Alert and oriented to person, place, time/situation. normal mood and affect. No apparent risk to self or others. CRITICAL CARE RESULTS: Recent Lab Results: I have reviewed these laboratory results: Complete Blood Count + Differential 18-Feb-2022 16:31:00 ResultValue White Blood Cell Count 15.8 H Red Blood Cell Count 3.13 L HGB 9.6 L HCT 28.3 L MCV 90 MCHC 33.9 PLT 310 RDW-CV 11.8 Neutrophil % 77.1 Immature Granulocytes % 0.4 Lymphocyte % 12.7 Monocyte % 4.9 Eosinophil % 4.6 Basophil % 0.3 Neutrophil Count 12.18 H Lymphocyte Count 2.00 Monocyte Count 0.78 Eosinophil Count 0.73 H Basophil Count 0.04 Basic Metabolic Panel 18-Feb-2022 16:31:00 ResultValue Glucose, Serum 96 NA 138 K 5.0 CL 102 Bicarbonate, Serum 25 Anion Gap, Serum 16 BUN 68 H CREAT 6.42 H GFR Male 12 A Calcium, Serum 8.7 PT + INR, Plasma 18-Feb-2022 16:31:00 ResultValue Prothrombin Time, Plasma 10.9 International Normalized Ratio, Plasma 0.9 Troponin I, High Sensitivity 18-Feb-2022 16:31:00 ResultValue Troponin I, High Sensitivity 20 Brain Natriuretic Peptide 18-Feb-2022 16:31:00 ResultValue Brain Natriuretic Peptide 149 H Lactate, Level 18-Feb-2022 16:31:00 ResultValue Lactate, Level 0.5 Influenza A/B,Covid 2019 PCR,Symptomatic 18-Feb-2022 14:00:00 ResultValue Fluid Source Nasal, Nasopharyngeal Influenza A PCR NOT DETECTED Reference Range: Not Detected Respiratory virus te (more content not included)... Normal [facility] TROPONIN I, HIGH SENSITIVITY on 02-18-2022 TROPONIN I, HIGH SENSITIVITY 19 ng/L Normal 0 - 20 [facility] Comment on above: Result Comment: . Less than 99th percentile of normal range cutoff- Female and children under 18 years old <14 ng/L; Male <21 ng/L: Negative Repeat testing should be performed if clinically indicated. . Female and children under 18 years old 14-50 ng/L; Male 21-50 ng/L: Consistent with possible cardiac damage and possible increased clinical risk. Serial measurements may help to assess extent of myocardial damage. . >50 ng/L: Consistent with cardiac damage, increased clinical risk and myocardial infarction. Serial measurements may help assess extent of myocardial damage. . NOTE: Children less than 1 year old may have higher baseline troponin levels and results should be interpreted in conjunction with the overall clinical context. . NOTE: Troponin I testing is performed using a different testing methodology at [facility] than at other [facility]. Direct result comparisons should only be made within the same method. Performed By: #### M G #### [address] [id number] TROPONIN I, HIGH SENSITIVITY 19 ng/L Normal 0 - 20 [facility] Comment on above: Result Comment: . Less than 99th percentile of normal range cutoff- Female and children under 18 years old <14 ng/L; Male <21 ng/L: Negative Repeat testing should be performed if clinically indicated. . Female and children under 18 years old 14-50 ng/L; Male 21-50 ng/L: Consistent with possible cardiac damage and possible increased clinical risk. Serial measurements may help to assess extent of myocardial damage. . >50 ng/L: Consistent with cardiac damage, increased clinical risk and myocardial infarction. Serial measurements may help assess extent of myocardial damage. . NOTE: Children less than 1 year old may have higher baseline troponin levels and results should be interpreted in conjunction with the overall clinical context. . NOTE: Troponin I testing is performed using a different testing methodology at [facility] than at other [facility]. Direct result comparisons should only be made within the same method. Performed By: #### R ENAL #### [address] [id number] TROPONIN I, HIGH SENSITIVITY 20 ng/L Normal 0 - 20 [facility] Comment on above: Result Comment: . Less than 99th percentile of normal range cutoff- Female and children under 18 years old <14 ng/L; Male <21 ng/L: Negative Repeat testing should be performed if clinically indicated. . Female and children under 18 years old 14-50 ng/L; Male 21-50 ng/L: Consistent with possible cardiac damage and possible increased clinical risk. Serial measurements may help to assess extent of myocardial damage. . >50 ng/L: Consistent with cardiac damage, increased clinical risk and myocardial infarction. Serial measurements may help assess extent of myocardial damage. . NOTE: Children less than 1 year old may have higher baseline troponin levels and results should be interpreted in conjunction with the overall clinical context. . NOTE: Troponin I testing is performed using a different testing methodology at [facility] than at other [facility]. Direct result comparisons should only be made within the same method. Performed By: #### U ANKUSH #### [address] [id number] Triage - EDon 02-18-2022 Triage - ED Quick Triage: The patient and/or guardian verbally acknowledges placement for services into the following (when Urgent Care Service hours are operating):emergency department Chart Review: ARRIVAL INFORMATION Mode of Arrival: private vehicle CHIEF COMPLAINT LAWSON DOYLE is a Male patient with a chief complaint of flu-like symptoms (pt states he has had an ear ache and sore throat since yesterday. Pt has high BP in triage, but states he is already being treated for it, Pt states he has not taken his meds today and cant remember if he took them yesterday or not.). Triage Date/Time: 18-Feb-2022 13:52 MISHA: 2 Pain Rating (0-10): 8 = Severe Vital Signs: Temperature: 98.4F ( 36.9C) taken skin probe Blood Pressure: 221/137 Mean: Heart Rate: 98 Respiratory Rate: 19 Pulse Oximetry: 100% on room air, no respiratory support. Height: 5 feet 9.00 inches. 175.2 CM Weight: 189.5 pounds. Calculated 86.0 kg. (stated) Calculated BMI (kg/m2): 28.017 Calculated BSA (m2) 2.05 Niyah Coma Scale: Best Eye Response: (E4) spontaneous Best Motor Response: (M6) obeys commands Best Verbal Response: (V5) oriented [place] Score: 15 Patient has homicidal thoughts: no Risk Screens Suicide Risk Screen In the Past Month: Have you wished you were or wished you could go to sleep and not wake up no In the Past Month: Have you had any actual thoughts of killing yourself no In Your Lifetime: Have you ever done anything, started to do anything, or prepared to do anything to end your life no Nickerson Fall Scale Screening Has the patient fallen before (or is the patient in the ED as a result of a fall) has not had a fall Does the patient have an impaired gait does not have impaired gait Is the patient cognitively impaired not cognitively impaired Interventions: Nickerson Fall Interventions: LOW INTERVENTIONS: *patient oriented to surroundings and call system, * patient/family falls education completed and documented, *patients fall status communicated during bedside handoff, *whiteboard updated, *mode of toileting discussed with patient, *bed in low position with brakes locked, *call light in reach, * non-skid footwear TRAVEL HISTORY Travel History Coronavirus Screening: no exposure or symptoms Travel Exposure History: NO travel to International locations in the past 30 days PAIN Pain Scale Used: EDMUNDO Pain Rating (0-10): 8 = Severe Past Medical History: Past Medical History Reviewedyes HTN: Past Medical History, Active Electronic Signatures: Triny Wooten (RN) (Signed 18-Feb-2022 13:56) Authored: Quick Triage, Risk Screens, Pain, Travel History, Chart Review, Scores, Past Medical History Bernardo Deshpande (RANGEL) (Signed 18-Feb-2022 18:39) Authored: Quick Triage, Chart Review Edmund Barnes) (Signed 18-Feb-2022 19:37) Authored: Quick Triage, Risk Screens, Chart Review, Past Medical History Last Updated: 18-Feb-2022 19:37 by Edmund BarnesRN) [facility] GUIDED NEEDLE PLACEMENTon 06-08-2017 CT GUIDED NEEDLE PLACEMENT DATE OF EXAM: Jun 08 2017 11:08AMCLINICAL HISTORY/ Name: MANISH DOYLEUDY:REJI Garcia RENAL BIOPSY; 06/08/2017 11:08 amINDICATION:Hematuria, see order.COMPARISON:None.A CCESSION NUMBER(S):[id number] LUCERO CLINICIAN:DARRNY CHENEY:FAYE NT:The procedure, its indication, alternatives, and potential risks were explained to the patient who understands and consents. A time-out confirming patient identity, procedure to be performed, appropriate personnel in place, and appropriate safety measures for personnel and the patient was performed.SEDATION:50 Micrograms intravenous fentanyl and 2 milligram intravenous Versed said were administered for conscious sedation. Continuous single lead EKG and pulse oximetry monitoring with intermittent noninvasive blood pressure monitoring. Sedation and patient monitoring performed by dedicated special procedures trained registered nurse.MODALITIES USED:CTTECHNIQUE:The patient is placed prone in CT. The lower pole of the right kidney was localized. An appropriate access site along the left flank was then localized. This site was then marked and prepped and draped sterilely. Local anesthetic was administered to include deep local anesthetic using CT guided placement of a 22 gauge spinal needle. Using CT guidance intermittently, a 17 gauge outer cannula needle was advanced to the lower renal pole cortex. At this 0.2 samples were obtained using a spring-loaded 18 gauge core biopsy needle. Satisfactory core samples were obtained and placed on saline moist and Telfa and into specimen bottle for pathology analysis. The needle was then removed. Follow-up CT demonstrated no suggestion of complication. The patient tolerated the procedure well without immediate complication.FINDINGS:S ee aboveCONCLUSION: IMPRESSION:Successful CT-guided lower pole renal cortical biopsy. Normal [facility] PERCUTANEOUS RENAL BIOPSYon 06-08-2017 PERCUTANEOUS RENAL BIOPSY DATE OF EXAM: Jun 08 2017 11:08AMCLINICAL HISTORY/ Name: LASWON DOYLESTUDY:REJI S RENAL BIOPSY; 06/08/2017 11:08 amINDICATION:Hematuria, see order.COMPARISON:None.A CCESSION NUMBER(S):[id number] LUCERO CLINICIAN:DARRYN CHENEY:FAYE NT:The procedure, its indication, alternatives, and potential risks were explained to the patient who understands and consents. A time-out confirming patient identity, procedure to be performed, appropriate personnel in place, and appropriate safety measures for personnel and the patient was performed.SEDATION:50 Micrograms intravenous fentanyl and 2 milligram intravenous Versed said were administered for conscious sedation. Continuous single lead EKG and pulse oximetry monitoring with intermittent noninvasive blood pressure monitoring. Sedation and patient monitoring performed by dedicated special procedures trained registered nurse.MODALITIES USED:CTTECHNIQUE:The patient is placed prone in CT. The lower pole of the right kidney was localized. An appropriate access site along the left flank was then localized. This site was then marked and prepped and draped sterilely. Local anesthetic was administered to include deep local anesthetic using CT guided placement of a 22 gauge spinal needle. Using CT guidance intermittently, a 17 gauge outer cannula needle was advanced to the lower renal pole cortex. At this 0.2 samples were obtained using a spring-loaded 18 gauge core biopsy needle. Satisfactory core samples were obtained and placed on saline moist and Telfa and into specimen bottle for pathology analysis. The needle was then removed. Follow-up CT demonstrated no suggestion of complication. The patient tolerated the procedure well without immediate complication.FINDINGS:S ee aboveCONCLUSION: IMPRESSION:Successful CT-guided lower pole renal cortical biopsy. Normal [facility] Pathology ([facility])on 06-08-2017 Pathology ([facility]) Copy To: DARRYN GRANT MD FINAL SURGICAL PATHOLOGY [id number] FINAL DIAGNOSISRIGHT RENAL BIOPSY: SPECIMEN ANALYSIS PERFORMED AT [facility] SEE REPORT BELOWCLINICAL HISTORY:ALPORT SYNDROME, HTN, HEMATURIAOPERATION:CT GUIDED RENAL BIOPSY RIGHT LOWER LOBESPECIMEN(S):(A) KIDNEY BIOPSY, RIGHT, SEND OUT, RIGHT LOWER LOBEPerformed at [facility], [address] [place] [id number] DESCRIPTION:Received fresh, in saline, labeled with the patient's name, hospital number,and "R Renal Bx", are two cylindrical, white to fraser to pale red, soft tissuefragments. They measure 1.1 x 0.05 x 0.05 cm and 1.1 x 0.05 x 0.05 cm. Nosections are submitted; for gross identification only. [facility] for immunohistochemistry, electron microscopy, and light microscopystudies.TASCO NSULTING COMMENT:Signed Out by:RENÉ ZHENG M.D.Reported: 06/15/2017 Normal [facility] Comment on above: Performed By: #### [id number] ####[facility] [address] [place] [address] CBCon 06-07-2017 Erythrocyte distribution width Auto Ratio (RBC) 12.0 % Normal 12.0-15.4 [facility] Comment on above: Performed By: #### 6 [id number] ####[facility] [address] [place] [address] Hematocrit Auto Volume Fraction (Bld) 41.7 % Normal 37.0-49.0 [facility] Health care Comment on above: Performed By: #### 6 [id number] ####[facility] [address] [place] [address] Hemoglobin mass conc (Bld) 14.0 g/dL Normal 13.2-15.6 [facility] Comment on above: Performed By: #### 6 [id number] ####[facility] [address] [place] [address] MCH Auto Entitic mass (RBC) 31.1 pg Normal 25.0-35.0 [facility] Comment on above: Performed By: #### 6 [id number] ####[facility] [address] [facility] [place] [address] MCHC Auto mass conc (RBC) 33.6 g/dL Normal 32.0-35.9 [facility] Healthcare Comment on above: Performed By: #### 6 [id number] ####[facility] [address] [facility] [place] [address] MCV Auto Entitic volume (RBC) 92.7 fL Normal 80.0-100.0 [facility] Healthcare Comment on above: Performed By: #### 6 [id number] ####[facility] [address] [facility] [place] [address] NRBC Absolute 0.00 10*3/uL Normal [facility] Healt hcare Comment on above: Performed By: #### 6 [id number] ####[facility] [address] [facility] [place] [address] NRBC Automated 0.0 /100{WBCs} Normal [facility]care Comment on above: Performed By: #### 6 [id number] ####[facility] [address] [facility] [place] [address] Platelet mean volume Auto Entitic volume (Bld) 10.0 fL Normal 9.9-12.1 [facility] Healthcare Comment on above: Performed By: #### 6 [id number] ####[facility] [address] [facility] [place] [address] Platelets Auto #/vol (Bld) 293 10*3/uL Normal 155-404 [facility] Healthcare Comment on above: Performed By: #### 6 [id number] ####[facility] [address] [place] [address] RBC Auto #/vol (Bld) 4.50 10*6/uL Normal 4.50-5.30 [facility] Comment on above: Performed By: #### 6 [id number] ####[facility] [address] [place] [address] RDW SD 40.7 fL Normal 39.3-48.6 [facility] Healthcare Comment on above: Performed By: #### 6 [id number] ####[facility] [address] [facility] [place] [address] WBC Auto #/vol (Bld) 9.3 10*3/uL Normal 4.5-13.5 [facility] Comment on above: Performed By: #### 6 [id number] ####[facility] [address] [place] [address] Partial Thromboplastin Timeo n 06-07-2017 aPTT Coag time (Bld) 30.3 s Normal 25.0-36.0 [facility] Comment on above: Result Comment: PLEAmy BROWN NOTE NEW REFERENCE RANGE EFFECTIVE 2017.The APTT is no longer used for monitoringUnfractionated Heparin Therapy.For monitoring Heparin Therapy, use theHeparin Assay. Performed By: #### 6 [id number] ####[facility] Xpn[address] [place] [address] Prothrombin Timeon 8 INR Coag RelTime (PPP) 0.92 {INR} Normal 0.90-1.10 [facility] Comment on above: Result Comment: TONI BROWN NOTE NEW REFERENCE RANGE EFFECTIVE 2017 Performed By: #### 6 [id number] ####[facility] Mmo[address] [place] [address] Prothrombin time (PT) Coag time (PPP) 10.2 s Normal 9.8-12.7 [facility] Comment on above: Result Comment: TONI BROWN NOTE NEW REFERENCE RANGE EFFECTIVE 2017 Performed By: #### 6 [id number] ####[facility] Kff186 [facility] [place] [address] Renal Function Panelon 05-28 Albumin mass conc 4.1 g/dL Normal 3.4-5.0 [facility] Comment on above: Performed By: #### 6 [id number] ####[facility] Eps971 [facility] [place] [address] Anion gap 3 molar conc 10 mmol/L Normal 10-20 [facility] Comment on above: Performed By: #### 6 [id number] ####[facility] Ubb736 [facility] [place] [address] Calcium mass conc 9.6 mg/dL Normal 8.5-10.7 [facility] Comment on above: Performed By: #### 6 [id number] ####[facility] Pnk[address] [place] [address] Chloride molar conc 104 mmol/L Normal 98-107 [facility] Comment on above: Performed By: #### 6 [id number] ####[facility] Ojr[address] [facility] [place] [address] Creatinine mass conc 1.05 mg/dL Normal 0.50-1.30 [facility] Comment on above: Performed By: #### 6 [id number] ####[facility] Txi[address] [place] [address] GFR/1.73 sq M.predicted MDRD vol rate/area mL/min/{1.73_m2} Normal [facility] Comment on above: Result Comment: Inte rpretation for Chronic Kidney Disease:Stages 1&2 >60 Healthy or potential kidney damage.Mild decrease of GFR.Stage 3 30-59 Moderate decrease of GFR.Stage 4 15-29 Severe decrease of GFR.Stage 5 <15 Kidney failure or on dialysis. Performed By: #### 6 [id number] ####[facility] Qav046 [place] [address] Glucose mass conc 94 mg/dL Normal 70-100 [facility] Comment on above: Performed By: #### 6 [id number] ####[facility] Bvo933 [place] [address] HCO3 molar conc (Bld) 31 mmol/L Normal 21-32 [facility] Comment on above: Performed By: #### 6 [id number] ####[facility] Xsi[address] [facility] [place] [address] Phosphate mass conc 2.9 mg/dL Normal 2.5-4.9 [facility] Comment on above: Performed By: #### 6 [id number] ####[facility] Ozx868 [facility] [place] [address] Potassium molar conc 3.9 mmol/L Normal 3.5-5.1 [facility] Comment on above: Performed By: #### 6 976121 ####[facility] [address] [place] [address] Sodium molar conc 141 mmol/L Normal 136-145 [facility] Comment on above: Performed By: #### 6 [id number] ####[facility] [address] [place] [address] Urea nitrogen mass conc 16 mg/dL Normal 6-23 [facility] Comment on above: Performed By: #### 6 [id number] ####[facility] [address] [place] [address] Urea nitrogen/Creatinine mass ratio 15 mg/mg Normal 5-25 [facility] Comment on above: Performed By: #### 6 749236 ####[facility] [address] [place] [address] Urinalysis with Reflex Cultu reon 05-28-2017 Appearance Clear Normal Clear [facility] Comment on above: Performed By: #### 6 [id number] ####[facility] [address] [place] [address] Ascorbic Acid Negative Normal Negative [facility] Comment on above: Performed By: #### 6 [id number] ####[facility] [address] [place] [address] Automated Urine Microscopy Performed Normal [facility] Comment on above: Performed By: #### 6 [id number] ####[facility] [address] [place] [address] Bacteria Rare Normal None [facility] Comment on above: Performed By: #### 6 [id number] ####[facility] Ont[address] [place] [address] Bilirubin Negative Normal Negative [facility] Comment on above: Performed By: #### 6 934173 ####[facility] [address] [place] [address] Blood Large Abnormal Negative [facility] Comment on above: Performed By: #### 6 709620 ####[facility] [address] [place] [address] Color Yellow Normal [facility] Comment on above: Performed By: #### 6 [id number] ####[facility] Guj[address] [place] [address] Glucose Negative Normal Negative [facility] Comment on above: Performed By: #### 6 626834 ####[facility] [address] [place] [address] Ketones Negative Normal Negative [facility] Comment on above: Performed By: #### 6 693368 ####[facility] [address] [place] [address] Leukocytes Esterase Negative Normal Negative [facility] Comment on above: Performed By: #### 6 [id number] ####[facility] [address] [place] [address] Nitrite Negative Normal Negative [facility] Comment on above: Performed By: #### 6 946875 ####[facility] [address] [place] [address] pH 7.0 Normal 5.0-9.0 [facility] Comment on above: Performed By: #### 6 279980 ####[facility] [address] [place] [address] Protein mass conc 100 mg/dL Abnormal Negative [facility] Comment on above: Performed By: #### 6 709760 ####[facility] F[address] [place] [address] RBC 34 /[HPF] Normal 0-3 [facility] Comment on above: Performed By: #### 6 [id number] ####[facility] O[address] [place] [address] Specific Bowman 1.014 Normal 1.003-1.035 [facility] Comment on above: Performed By: #### 6 [id number] ####[facility] [address] [place] [address] Urobilinogen <2.0 Normal Negative [facility] Comment on above: Performed By: #### 6 606797 ####[facility] [address] [place] [address] WBC <1 Normal 0-5 [facility] Comment on above: Performed By: #### 6 156833 ####[facility] Bgv[address] [facility] [place] [address] Influenza A,Bon 04-17-2017 Influenza A, Rapid Ag Negative Normal Negative [facility] Comment on above: Performed By: #### 6 603516 ####[facility] Ekr[address] [facility] [place] [address] Influenza B, Rapid Ag Negative Normal Negative [facility] Comment on above: Performed By: #### 6 841103 ####[facility] Orh[address] [facility] [place] [address] CBCon 04-09-2017 Erythrocyte distribution width Auto Ratio (RBC) 11.8 % Low 12.0-15.4 [facility] Comment on above: Performed By: #### 2 297109 ####[facility] Umv[address] [facility] [place] [address] Hematocrit Auto Volume Fraction (Bld) 39.1 % Normal 37.0-49.0 [facility] Health care Comment on above: Performed By: #### 2 669356 ####[facility] [address] [place] [address] Hemoglobin mass conc (Bld) 13.0 g/dL Low 13.2-15.6 [facility] Comment on above: Performed By: #### 2 091276 ####[facility] Kdo[address] [place] [address] MCH Auto Entitic mass (RBC) 31.0 pg Normal 25.0-35.0 [facility] Comment on above: Performed By: #### 2 641738 ####[facility] Tzj[address] [place] [address] MCHC Auto mass conc (RBC) 33.2 g/dL Normal 32.0-35.9 [facility] Comment on above: Performed By: #### 2 703771 ####[facility] Iiy[address] [place] [address] MCV Auto Entitic volume (RBC) 93.3 fL Normal 80.0-100.0 [facility] Comment on above: Performed By: #### 2 169848 ####[facility] Hdo[address] [facility] [place] [address] NRBC Absolute 0.00 10*3/uL Normal [facility] Comment on above: Performed By: #### 2 028679 ####[facility] Plv[address] [place] [address] NRBC Automated 0.0 /100{WBCs} Normal [facility] Comment on above: Performed By: #### 2 694609 ####[facility] Gge[address] [facility] [place] [address] Platelet mean volume Auto Entitic volume (Bld) 9.8 fL Low 9.9-12.1 [facility] Comment on above: Performed By: #### 2 143434 ####[facility] Uur[address] [facility] [place] [address] Platelets Auto #/vol (Bld) 269 10*3/uL Normal 155-404 [facility] Comment on above: Performed By: #### 2 318623 ####[facility] Ixy[address] [facility] [place] [address] RBC Auto #/vol (Bld) 4.19 10*6/uL Low 4.50-5.30 [facility] Comment on above: Performed By: #### 2 857027 ####[facility] Atp[address] [facility] [place] [address] RDW SD 40.4 fL Normal 39.3-48.6 [facility] Comment on above: Performed By: #### 2 347171 ####[facility] Szp[address] [facility] [place] [address] WBC Auto #/vol (Bld) 5.7 10*3/uL Normal 4.5-13.5 [facility] Comment on above: Performed By: #### 2 740742 ####[facility] Tkv[address] [facility] [place] [address] Parathyroid Hormoneon 2017 Parathyroid Hormone 20.0 pg/mL Normal 14.0-72.0 [facility] Comment on above: Result Comment: Ca L ow Ca Normal Ca High -PTH Low Suggests hypo- Suggests hyper-parathyroid calcemia ofcondition malignancycondition PTH Normal Suggests normal Suggests hyper-parathyroid parathyroidcondition PTH High Suggests secondary Suggests primaryhyperparathyroid hyperparathyroidcondition condition Performed By: #### 1 701114 ####[facility] Ejq[address] [place] [address] Partial Thromboplastin Timeo n 04-09-2017 aPTT Coag time (Bld) 30.1 s Normal 22.1-35.3 [facility] Comment on above: Result Comment: Hepa rin Therapeutic Range: 71 - 97 sec Performed By: #### 3 [id number] ####[facility] Bra[address] [place] [address] Prothrombin Timeon 8 INR Coag RelTime (PPP) 0.93 {INR} Normal 0.85-1.16 [facility] Comment on above: Result Comment: Coum yamilka Therapy:1.5 - 2.0 Low Intensity Therapy2.0 - 3.0 Moderate Intensity Therapy2.5 - 3.5 High (1) Intensity Therapy3.0 - 4.0 High (2) Intensity Therapy Performed By: #### 3 [id number] ####[facility] Gka[address] [place] [address] Prothrombin time (PT) Coag time (PPP) 12.4 s Normal 11.3-14.5 [facility] Comment on above: Performed By: #### 3 [id number] ####[facility] Mrn[address] [facility] [place] [address] Renal Function Panelon 04-09 Albumin mass conc 4.2 g/dL Normal 3.4-5.0 [facility] Comment on above: Performed By: #### 1 745856 ####[facility] Siu[address] [place] [address] Anion gap 3 molar conc 11 mmol/L Normal 10-20 [facility] Comment on above: Performed By: #### 1 143672 ####[facility] Wan[address] [facility] [place] [address] Calcium mass conc 9.3 mg/dL Normal 8.5-10.7 [facility] Comment on above: Performed By: #### 1 725142 ####[facility] Zrl[address] [place] [address] Chloride molar conc 104 mmol/L Normal 98-107 [facility] Comment on above: Performed By: #### 1 084002 ####[facility] Gxs[address] [facility] [place] [address] Creatinine mass conc 1.04 mg/dL Normal 0.50-1.30 [facility] Comment on above: Performed By: #### 1 567470 ####[facility] Kwu[address] [employer] [place] [address] GFR/1.73 sq M.predicted MDRD vol rate/area mL/min/{1.73_m2} Normal [facility] Comment on above: Result Comment: Inte rpretation for Chronic Kidney Disease:Stages 1&2 >60 Healthy or potential kidney damage.Mild decrease of GFR.Stage 3 30-59 Moderate decrease of GFR.Stage 4 15-29 Severe decrease of GFR.Stage 5 <15 Kidney failure or on dialysis. Performed By: #### 1 623647 ####[facility] Zgl[address] [facility] [place] [address] Glucose mass conc 93 mg/dL Normal 70-100 [facility] Comment on above: Performed By: #### 1 870181 ####[facility] [address] [place] [address] HCO3 molar conc (Bld) 30 mmol/L Normal 21-32 [facility] Comment on above: Performed By: #### 1 885209 ####[facility] [address] [place] [address] Phosphate mass conc 2.2 mg/dL Low 2.5-4.9 [facility] Comment on above: Performed By: #### 1 808396 ####[facility] [address] [place] [address] Potassium molar conc 4.2 mmol/L Normal 3.5-5.1 [facility] Comment on above: Performed By: #### 1 695077 ####[facility] [address] [place] [address] Sodium molar conc 141 mmol/L Normal 136-145 [facility] Comment on above: Performed By: #### 1 546392 ####[facility] [address] [place] [address] Urea nitrogen mass conc 15 mg/dL Normal 6-23 [facility] Comment on above: Performed By: #### 1 709943 ####[facility] [address] [place] [address] Urea nitrogen/Creatinine mass ratio 14 mg/mg Normal 5-25 [facility] Comment on above: Performed By: #### 1 475962 ####[facility] [address] [place] [address] Total Protein, Urineon 04-09 Creatinine, Urine 132 mg/dL Normal [facility] Comment on above: Performed By: #### 1 145109 ####[facility] [address] [place] [address] Total Protein, Urine <4 Normal [facility] Comment on above: Result Comment: Plea se note new Units effective 09/11/2016. Performed By: #### 1 509666 ####[facility] [address] [place] [address] Total Protein/Creatinine ratio See Below Normal [facility] Comment on above: Result Comment: Unab le to calculate result due to component value outside ofmeasurement range.Please note new Units effective 09/11/2016. Performed By: #### 1 [id number] ####[facility] [address] [place] [address] Urinalysison 04-09-2017 Appearance Clear Normal Clear [facility] Comment on above: Performed By: #### 1 393339 ####[facility] Adj[address] [place] [address] Ascorbic Acid Negative Normal Negative [facility] Comment on above: Performed By: #### 1 173891 ####[facility] [address] [place] [address] Automated Urine Microscopy Performed Normal [facility] Comment on above: Performed By: #### 1 052812 ####[facility] [address] [place] [address] Bilirubin Negative Normal Negative [facility] Comment on above: Performed By: #### 1 730898 ####[facility] [address] [place] [address] Blood Large Abnormal Negative [facility] Comment on above: Performed By: #### 1 970935 ####[facility] [address] [place] [address] Color Yellow Normal [facility] Comment on above: Performed By: #### 1 350529 ####[facility] [address] [place] [address] Glucose Negative Normal Negative [facility] Comment on above: Performed By: #### 1 611582 ####[facility] [address] [place] [address] Ketones Negative Normal Negative [facility] Comment on above: Performed By: #### 1 667015 ####[facility] Sam[address] [place] [address] Leukocytes Esterase Negative Normal Negative [facility] Comment on above: Performed By: #### 1 565908 ####[facility] Tms[address] [place] [address] Mucous Rare Normal None [facility] Comment on above: Performed By: #### 1 067843 ####[facility] X[address] [place] [address] Nitrite Negative Normal Negative [facility] Comment on above: Performed By: #### 1 177053 ####[facility] T[address] [place] [address] pH 7.0 Normal 5.0-9.0 [facility] Comment on above: Performed By: #### 1 057342 ####[facility] [address] [place] [address] Protein mass conc 100 mg/dL Abnormal Negative [facility] Comment on above: Performed By: #### 1 281693 ####[facility] [address] [place] [address] RBC 154 /[HPF] Normal 0-3 [facility] Comment on above: Performed By: #### 1 254366 ####[facility] [address] [place] [address] Specific Bowman 1.017 Normal 1.003-1.035 [facility] Comment on above: Performed By: #### 1 041833 ####[facility] [address] [place] [address] Urobilinogen <2.0 Normal Negative [facility] Comment on above: Performed By: #### 1 171620 ####[facility] [address] [place] [address] WBC 1 /[HPF] Normal 0-5 [facility] Comment on above: Performed By: #### 1 467321 ####[facility] F[address] [place] [address] Vitamin D, 25 Hydroxyon 03-20 Vitamin D, 25 Hydroxy 25 ng/mL Abnormal [facility] Comment on above: Result Comment: DEFI CIENCY <20INSUFFICIENCY 20-29OPTIMUM LEVEL 30-80POSSIBLE TOXICITY >80 Performed By: #### V ITD ####[facility] [address] [place] [address] Culture Urineon 01-24-2017 Culture Urine STATUS: FINAL REPORT SITE: SOURCE: Urine Culture Urine: <1,000 cfu/ml--No growth Normal [facility] Comment on above: Performed By: #### 6 [id number] ####[facility] [address] [place] [address] Urinalysison 01-24-2017 Appearance Clear Normal Clear [facility] Comment on above: Performed By: #### 1 938131 ####[facility] [address]sr[address] [place] [address] Ascorbic Acid Negative Normal Negative [facility] Comment on above: Performed By: #### 1 095927 ####[facility] [address] [place] [address] Automated Urine Microscopy Performed Normal [facility] Comment on above: Performed By: #### 1 719980 ####[facility] [address] [place] [address] Bacteria Occasional Normal None [facility] Comment on above: Performed By: #### 1 211815 ####[facility] [address]oc[address] [place] [address] Bilirubin Negative Normal Negative [facility] Comment on above: Performed By: #### 1 564086 ####[facility] [address] [place] [address] Blood Large Abnormal Negative [facility] Comment on above: Performed By: #### 1 848260 ####[facility] [address] [place] [address] Color Yellow Normal [facility] Comment on above: Performed By: #### 1 796176 ####[facility] [address] [place] [address] Glucose Negative Normal Negative [facility] Comment on above: Performed By: #### 1 815526 ####[facility] Lab[address] [place] [address] Ketones Negative Normal Negative [facility] Comment on above: Performed By: #### 1 387860 ####[facility] [address] [place] [address] Leukocytes Esterase Negative Normal Negative [facility] Comment on above: Performed By: #### 1 840012 ####[facility] [address] [place] [address] Mucous Few Normal None [facility] Comment on above: Performed By: #### 1 599548 ####[facility] [address] [place] [address] Nitrite Negative Normal Negative [facility] Comment on above: Performed By: #### 1 212123 ####[facility] [address] [place] [address] pH 6.0 Normal 5.0-9.0 [facility] Comment on above: Performed By: #### 1 848737 ####[facility] [address] [place] [address] Protein mass conc 100 mg/dL Abnormal Negative [facility] Comment on above: Performed By: #### 1 674978 ####[facility] [address] [place] [address] RBC 37 /[HPF] Normal 0-3 [facility] Comment on above: Performed By: #### 1 050717 ####[facility] H[address] [place] [address] Specific Bowman 1.017 Normal 1.003-1.035 [facility] Comment on above: Performed By: #### 1 664822 ####[facility] [address] [place] [address] Urobilinogen <2.0 Normal Negative [facility] Comment on above: Performed By: #### 1 031982 ####[facility] [address] [place] [address] WBC 1 /[HPF] Normal 0-5 [facility] Comment on above: Performed By: #### 1 825808 ####[facility] [address] [place] [address] Vital Signs Date Time Vital Sign Value Performing Clinician Faci lity 10-21-2025 12:44-0400 Body temperature 99.5 [degF] Carlos Hutchison MD Work Phone: [facility] 01-06-2025 12:44-0400 Diastolic blood pressure 95 mm[Hg] Carlos Hutchison MD Work Phone: [facility] 01-06-2025 12:44-0400 Heart rate 95 /min Carlos Hutchison MD Work Phone: [facility] 01-06-2025 12:44-0400 SaO2% (BldA) [Mass fraction] 95 % Carlos Hutchison MD Work Phone: [facility] 01-06-2025 12:44-0400 Systolic blood pressure 162 mm[Hg] Carlos Hutchison MD Work Phone: [facility] 01-06-2025 08:14-0400 Respiratory rate 18 /min Carlos Hutchison MD Work Phone: [facility] 01-05-2025 08:28-0400 Body height 177.8 cm Carlos Hutchison MD Work Phone: [facility] 01-05-2025 08:28-0400 Body mass index (BMI) [Ratio] 24.83 kg/m2 Carlos Hutchison MD Work Phone: [facility] 01-05-2025 08:28-0400 Body weight 78.5 kg Carlos Hutchison MD Work Phone: [facility] 10-14-2024 10:00-0400 Body temperature 97.9 [degF] No Primary Care Physician [facility] 10-14-2024 10:00-0400 Diastolic blood pressure 63 mm[Hg] No Primary Care Phys[facility] 10-14-2024 10:00-0400 Heart rate 101 /min No Primary Care Phys[facility] 10-14-2024 10:00-0400 Respiratory rate 16 /min No Primary [facility] Phys[facility] 10-14-2024 10:00-0400 SaO2% (BldA) [Mass fraction] 98 % No [facility] 10-14-2024 10:00-0400 Systolic blood pressure 148 mm[Hg] No Primary [facility] 10-14-2024 05:23-0400 Body mass index (BMI) [Ratio] 25.2 kg/m2 No Primary Care [facility] 10-14-2024 05:23-0400 Body weight 80 kg No Primary [facility] 10-13-2024 21:45-0400 Inhaled oxygen flow rate 2 L/min No Primary [facility] 10-13-2024 13:37-0400 Body height 177.8 cm No Primary [facility] 10-13-2024 13:13-0400 Body temperature 98.4 [degF] No [facility] 10-13-2024 13:13-0400 Diastolic blood pressure 111 mm[Hg] No Primary [facility] 10-13-2024 13:13-0400 Heart rate 101 /min No [facility] 10-13-2024 13:13-0400 Respiratory rate 21 /min No Primary Care Physician [facility] 10-13-2024 13:13-0400 SaO2% (BldA) [Mass fraction] 100 % No Primary Care Physician [facility] 10-13-2024 13:13-0400 Systolic blood pressure 166 mm[Hg] No Primary Care Physician [facility] 10-13-2024 08:14-0400 Body height 177.8 cm No Primary Care Physician [facility] 10-13-2024 08:14-0400 Body mass index (BMI) [Ratio] 25.4 kg/m2 No Primary Care Physician [facility] 10-13-2024 08:14-0400 Body weight 80.5 kg No Primary Care Physician [facility] 10-03-2024 21:55-0400 Body temperature 98.1 [degF] No Primary Care Physician [facility] 10-03-2024 21:55-0400 Diastolic blood pressure 97 mm[Hg] No Primary Care Physician [facility] 10-03-2024 21:55-0400 Heart rate 98 /min No Primary Care Physician [facility] 10-03-2024 21:55-0400 Respiratory rate 17 /min No Primary Care Physician [facility] 10-03-2024 21:55-0400 SaO2% (BldA) [Mass fraction] 99 % No Primary Care Physician [facility] 10-03-2024 21:55-0400 Systolic blood pressure 159 mm[Hg] No Primary Care Physician [facility] 10-03-2024 16:39-0400 Body height 177.8 cm No Primary Care Physician [facility] 10-03-2024 16:39-0400 Body mass index (BMI) [Ratio] 25.9 kg/m2 No Primary Care Physician [facility] 10-03-2024 16:39-0400 Body weight 82 kg No Primary Care Physician [facility] 03-06-2024 05:25-0500 Diastolic blood pressure 74 mm[Hg] Isac Padgett DO Work Phone: [facility] 03-06-2024 05:25-0500 Heart rate 95 /min Isac Padgett DO Work Phone: [facility] 03-06-2024 05:25-0500 Respiratory rate 18 /min Isac Padgett DO Work Phone: [facility] 03-06-2024 05:25-0500 SaO2% (BldA) [Mass fraction] 98 % Isac Padgett DO Work Phone: [facility] 03-06-2024 05:25-0500 Systolic blood pressure 132 mm[Hg] Isac Padgett DO Work Phone: [facility] 03-06-2024 03:45-0500 Body height 177.8 cm Isac Padgett DO Work Phone: [facility] 03-06-2024 03:45-0500 Body mass index (BMI) [Ratio] 26.1 kg/m2 Isac Padgett DO Work Phone: [facility] 03-06-2024 03:45-0500 Body temperature 98.6 [degF] Isac Padgett DO Work Phone: [facility] 03-06-2024 03:45-0500 Body weight 82.5 kg Isac Padgett DO Work Phone: [facility] 03-04-2024 09:23-0500 Body height 177.8 cm [facility] Work Phone: [facility] 03-04-2024 09:23-0500 Body mass index (BMI) [Ratio] 26.41 kg/m2 [facility] Work Phone: [facility] 03-04-2024 09:23-0500 Body temperature 98.6 [degF] [facility] Work Phone: [facility] 03-04-2024 09:23-0500 Body weight 83.5 kg [facility] Work Phone: [facility] 03-04-2024 09:23-0500 Diastolic blood pressure 92 mm[Hg] [facility] Work Phone: [facility] 03-04-2024 09:23-0500 Heart rate 94 /min [facility] Work Phone: [facility] 03-04-2024 09:23-0500 SaO2% (BldA) [Mass fraction] 99 % [facility] Work Phone: [facility] 03-04-2024 09:23-0500 Systolic blood pressure 140 mm[Hg] [facility] Work Phone: [facility] 03-04-2024 09:19-0500 Body height 177.8 cm Wait List Work Phone: [facility] 03-04-2024 09:19-0500 Body mass index (BMI) [Ratio] 26.41 kg/m2 Wait List Work Phone: [facility] 03-04-2024 09:19-0500 Body temperature 98.6 [degF] Wait List Work Phone: [facility] 03-04-2024 09:19-0500 Body weight 83.5 kg Wait List Work Phone: [facility] 03-04-2024 09:19-0500 Diastolic blood pressure 92 mm[Hg] Wait List Work Phone: [facility] 03-04-2024 09:19-0500 Heart rate 94 /min Wait List Work Phone: [facility] 03-04-2024 09:19-0500 SaO2% (BldA) [Mass fraction] 98 % Wait List Work Phone: [facility] 03-04-2024 09:19-0500 Systolic blood pressure 140 mm[Hg] Wait List Work Phone: [facility] 05-15-2023 12:40-0500 Body height 177.8 cm Pacc 1 Other Phone: [facility] 05-15-2023 12:40-0500 Body temperature 98.01 [degF] Pacc 1 Other Phone: [facility] 05-15-2023 12:40-0500 Body weight 78 kg Pacc 1 Other Phone: [facility] 05-15-2023 12:40-0500 Diastolic blood pressure 79 mm[Hg] Pacc 1 Other Phone: [facility] 05-15-2023 12:40-0500 Heart rate 80 /min Pacc 1 Other Phone: [facility] 05-15-2023 12:40-0500 Respiratory rate 20 /min Pacc 1 Other Phone: [facility] 05-15-2023 12:40-0500 SaO2% (BldA) [Mass fraction] 100 % Pacc 1 Other Phone: [facility] 05-15-2023 12:40-0500 Systolic blood pressure 117 mm[Hg] Pacc 1 Other Phone: [facility] 05-09-2023 18:45-0500 Heart rate 90 /min Theodore Lynn DO Work Phone: [facility] 05-09-2023 18:45-0500 SaO2% (BldA) [Mass fraction] 97 % Theodore Lynn DO Work Phone: [facility] 05-09-2023 18:30-0500 Body temperature 98.4 [degF] Theodore Ibrahimgola DO Work Phone: [facility] 05-09-2023 18:30-0500 Diastolic blood pressure 83 mm[Hg] Theodore Andreala DO Work Phone: [facility] 05-09-2023 18:30-0500 Respiratory rate 18 /min Theodore Lynn DO Work Phone: [facility] 05-09-2023 18:30-0500 Systolic blood pressure 130 mm[Hg] Theodore Lynn DO Work Phone: [facility] 05-09-2023 17:00-0500 Body height 177.8 cm Theodore Lynn DO Work Phone: [facility] 05-09-2023 17:00-0500 Body mass index (BMI) [Ratio] 23.72 kg/m2 Theodore Lynn DO Work Phone: [facility] 05-09-2023 17:00-0500 Body weight 75 kg Theodore Lynn DO Work Phone: [facility] 01-27-2023 11:53-0500 Diastolic blood pressure 68 mm[Hg] Ivette Manzano MD Work Phone: [facility] 01-27-2023 11:53-0500 Heart rate 68 /min Ivette Manzano MD Work Phone: [facility] 01-27-2023 11:53-0500 Respiratory rate 18 /min Ivette Manzano MD Work Phone: [facility] 01-27-2023 11:53-0500 SaO2% (BldA) [Mass fraction] 100 % Ivette Manzano MD Work Phone: [facility] 01-27-2023 11:53-0500 Systolic blood pressure 107 mm[Hg] Ivette Manzano MD Work Phone: [facility] 01-27-2023 09:18-0500 Body height 177.8 cm Ivette Manzano MD Work Phone: [facility] 01-27-2023 09:18-0500 Body mass index (BMI) [Ratio] 22.93 kg/m2 Ivette Manzano MD Work Phone: [facility] 01-27-2023 09:18-0500 Body temperature 97.5 [degF] Ivette Manzano MD Work Phone: [facility] 01-27-2023 09:18-0500 Body weight 72.5 kg Ivette Manzano MD Work Phone: [facility] 12-21-2022 08:20-0400 Body height 177.8 cm [facility] Work Phone: [facility] 12-21-2022 08:20-0400 Body temperature 98.49 [degF] [facility] Work Phone: [facility] 12-21-2022 08:20-0400 Body weight 72.98 kg [facility] Work Phone: [facility] 12-21-2022 08:20-0400 Diastolic blood pressure 73 mm[Hg] [facility] Work Phone: [facility] 12-21-2022 08:20-0400 Heart rate 91 /min [facility] Work Phone: [facility] 12-21-2022 08:20-0400 SaO2% (BldA) [Mass fraction] 99 % [facility] Work Phone: [facility] 12-21-2022 08:20-0400 Systolic blood pressure 99 mm[Hg] [facility] Work Phone: [facility] 05-29-2022 10:50-0400 Diastolic blood pressure 88 mm[Hg] Lui Cooper MD Work Phone: [facility] 05-29-2022 10:50-0400 Heart rate 71 /min Lui Cooper MD Work Phone: [facility] 05-29-2022 10:50-0400 Systolic blood pressure 126 mm[Hg] Lui Cooper MD Work Phone: [facility] 05-22-2022 11:11-0500 Body height 177.8 cm Lui Cooper MD Work Phone: [facility] 05-22-2022 11:11-0500 Body weight 73.48 kg Lui Cooper MD Work Phone: [facility] 04-20-2022 09:16-0500 Body height 177.8 cm Pacc 3 Work Phone: [facility] 04-20-2022 09:16-0500 Body temperature 98.6 [degF] Pacc 3 Work Phone: [facility] 04-20-2022 09:16-0500 Body weight 73.03 kg Pacc 3 Work Phone: [facility] 04-20-2022 09:16-0500 Diastolic blood pressure 98 mm[Hg] Pacc 3 Work Phone: [facility] 04-20-2022 09:16-0500 Heart rate 99 /min Pacc 3 Work Phone: [facility] 04-20-2022 09:16-0500 Respiratory rate 17 /min Pacc 3 Work Phone: [facility] 04-20-2022 09:16-0500 SaO2% (BldA) [Mass fraction] 99 % Pacc 3 Work Phone: [facility] 04-20-2022 09:16-0500 Systolic blood pressure 130 mm[Hg] Pacc 3 Work Phone: [facility] 03-27-2022 10:07-0500 Body height 177.8 cm Lui Cooper MD Work Phone: [facility] 03-27-2022 10:07-0500 Body weight 80.29 kg Lui Cooper MD Work Phone: [facility] 03-27-2022 10:07-0500 Diastolic blood pressure 87 mm[Hg] Lui Cooper MD Work Phone: [facility] 03-27-2022 10:07-0500 Systolic blood pressure 122 mm[Hg] Lui Cooper MD Work Phone: [facility] 03-21-2022 18:19-0500 Body temperature 97.16 [degF] Ivette Natacha Other Phone: [facility] 03-21-2022 18:19-0500 Diastolic blood pressure 91 mm[Hg] Ivette Natacha Other Phone: [facility] 03-21-2022 18:19-0500 Heart rate 84 /min Ivette Natacha Other Phone: [facility] 03-21-2022 18:19-0500 Systolic blood pressure 149 mm[Hg] Ivette Natacha Other Phone: [facility] 03-21-2022 09:57-0500 SaO2% (BldA) [Mass fraction] 98 % Ivette Natacha Other Phone: [facility] 02-21-2022 14:22-0500 Body temperature 98.24 [degF] Ivette Natacha Other Phone: [facility] 02-21-2022 14:22-0500 Diastolic blood pressure 81 mm[Hg] Ivette Natacha Other Phone: [facility] 02-21-2022 14:22-0500 Heart rate 94 /min Ivette Natacha Other Phone: [facility] 02-21-2022 14:22-0500 Respiratory rate 18 /min Ivette Natacha Other Phone: [facility] 02-21-2022 14:22-0500 SaO2% (BldA) [Mass fraction] 99 % Ivette Natacha Other Phone: [facility] 02-21-2022 14:22-0500 Systolic blood pressure 144 mm[Hg] Ivette Natacha Other Phone: [facility] Encounters Encounter Date Encounter Type Care Provider Facility Start: 01-22-2025 End: 01-22-2025 Emergency department patient visit PHYSICIAN NO [facility] Start: 01-05-2025 Critical care ill/injured patient init 30-74 min Carlos Davis MD Work Phone: [facility] Work Phone: Start: 01-05-2025 End: 01-06-2025 Evaluation and management of inpatient Carlos Davis MD Work Phone: [facility] 11 Comment on above: Hyperkalemia (Primar y Dx); ESRD (end stage renal disease) on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 Routine Pre-transplant evaluation for ESRD (end stage renal disease) Expected: 12/04/2023, Expires: 09/11/2024 [facility] Work Phone: Comment on above: Expected: 12/04/2023 , Expires: 09/11/2024 Start: 12-04-2023 End: 03-04-2024 Hepatitis C virus RNA [Units/volume] (viral load) in Serum or Plasma by MIGUEL with probe detection HEPATITIS C RNA QUANTIFICATION BY PCR, PLASMA/SERUM Lab Routine Pre-transplant evaluation for ESRD (end stage renal disease) Expected: 12/04/2023, Expires: 03/04/2024 [facility] Comment on above: Expected: 12/04/2023 , Expires: 03/04/2024 Start: 12-04-2023 End: 03-04-2024 HIV 1+2 Ab [Presence] in Serum or Plasma by Immunoassay HIV 1/2 COMBO WITH REFLEX TO DIFFERENTIATION Lab Routine Pre-transplant evaluation for ESRD (end stage renal disease) Expected: 12/04/2023, Expires: 03/04/2024 [facility] Comment on above: Expected: 12/04/2023 , Expires: 03/04/2024 Start: 12-04-2023 End: 09-11-2024 KID K/P PANC REC HLA AB SCRN KID K/P PANC REC HLA AB SCRN ALLOGEN Routine Pre-transplant evaluation for ESRD (end stage renal disease) Expected: 12/04/2023, Expires: 09/11/2024 [facility] Comment on above: Expected: 12/04/2023 , Expires: 09/11/2024 Start: 12-04-2023 End: 03-04-2024 RUBEOLA (MEASLES)IGG RUBEOLA (MEASLES)IGG Lab Routine Pre-transplant evaluation for ESRD (end stage renal disease) Expected: 12/04/2023, Expires: 03/04/2024 [facility] Comment on above: Expected: 12/04/2023 , Expires: 03/04/2024 Start: 12-04-2023 End: 03-04-2024 SYPHILIS TOTAL W/REFLEX SYPHILIS TOTAL W/REFLEX Lab Routine Pre-transplant evaluation for ESRD (end stage renal disease) Expected: 12/04/2023, Expires: 03/04/2024 [facility] Comment on above: Expected: 12/04/2023 , Expires: 03/04/2024 Start: 12-04-2023 End: 03-04-2024 VARICELLA ZOSTER IGG VARICELLA ZOSTER IGG Lab Routine Pre-transplant evaluation for ESRD (end stage renal disease) Expected: 12/04/2023, Expires: 03/04/2024 [facility] Comment on above: Expected: 12/04/2023 , Expires: 03/04/2024 Start: 12-04-2023 End: 10-11-2024 XR Chest PA and Lateral XR CHEST 2V FRONTAL/LAT Radiology Routine Pre-transplant evaluation for ESRD (end stage renal disease) Expected: 12/04/2023, Expires: 10/11/2024 [facility] Comment on above: Expected: 12/04/2023 , Expires: 10/11/2024 Start: 12-04-2023 End: 12-04-2023 Patient encounter procedure Transplant Center Comment on above: [facility] Start: 11-29-2023 End: 11-29-2023 ambulatory 11/29/2023 9:30 AM EDT [facility] [address] [id number] [facility] Transplant Center Comment on above: [facility] Start: 11-18-2023 Covid-19 Vaccine ( season) Covid-19 Vaccine ( season) [facility] Start: 11-18-2023 Covid-19 Vaccine ( season) Covid-19 Vaccine ( season) [facility] Start: 11-18-2023 Influenza vaccination C [facility] Start: 11-06-2023 Shingrix Vaccine (1 of 2) Keys grix Vaccine (1 of 2) [facility] Start: 11-01-2023 SERUM CREATININE SERUM CREATININE Cl [facility] Start: 08-11-2023 SERUM CREATININE SERUM CREATININE Cl [facility] Start: 08-06-2023 End: 08-06-2023 Admission to same day surgery center 08/06/2023 12:00 PM EDT - 08/06/2023 1:30 PM EDT Surgery [facility] [address] [place] [address] [place] [address] [place] [address] PERC THROMBECTOMY/INFUSION FOR THROMBOLYSIS AV FISTULA,FLUORO GUIDED,INCLUSIVE OF RAD S&I [facility] Comment on above: PERC THROMBECTOMY/IN FUSION FOR THROMBOLYSIS AV FISTULA,FLUORO GUIDED,INCLUSIVE OF RAD S&I Start: 08-06-2023 End: 08-06-2023 Perq thrmbc/nfs dialysis circuit img dx angrph PERC THROMBECTOMY/INFUSION FOR THROMBOLYSIS AV FISTULA,FLUORO GUIDED,INCLUSIVE OF RAD S&I ESRD (end stage renal disease) (HCC) 08/06/2023 12:00 PM EDT [facility] Start: 08-06-2023 Subsequent hospital visit by physician 08/06/2023 12:00 PM EDT Hospital Encounter [facility] [address] [place] [address] [place] [address] [place] [address] ESRD (end stage renal disease) (HCC) [N18.6] [facility] Comment on above: ESRD (end stage alejandra l disease) (HCC) [N18.6] Start: 08-04-2023 End: 11-03-2023 Basic metabolic 2000 panel - Serum or Plasma BASIC METABOLIC PANEL Lab STAT Acute renal failure, unspecified acute renal failure type (HCC) Complication of arteriovenous dialysis fistula, initial encounter ESRD (end stage renal disease) (HCC) Primary hypertension Expected: 08/04/2023, Expires: 11/03/2023 [facility] Work Phone: Comment on above: Expected: 08/04/2023 , Expires: 11/03/2023 Start: 08-04-2023 End: 08-02-2024 ECG COMPLETE ECG COMPLETE ECG STAT Acute renal failure, unspecified acute renal failure type (HCC) Complication of arteriovenous dialysis fistula, initial encounter ESRD (end stage renal disease) (HCC) Primary hypertension Expected: 08/04/2023, Expires: 08/02/2024 [facility] Comment on above: Expected: 08/04/2023 , Expires: 08/02/2024 Start: 04-25-2023 HEMOGLOBIN/HEMATOCRIT HEMOGLOBIN/HEM ATOCRIT [facility] Start: 04-25-2023 SERUM CREATININE SERUM CREATININE Cl [facility] Start: 04-20-2023 HEMOGLOBIN/HEMATOCRIT HEMOGLOBIN/HEM ATOCRIT [facility] Start: 04-20-2023 SERUM CREATININE SERUM CREATININE [facility] Start: 03-26-2023 Hepatitis B Vaccine (2 of 3 - Risk Dialysis 4-dose series) Hepatitis B Vaccine (2 of 3 - Risk Dialysis 4-dose series) [facility] Start: 03-20-2023 End: 06-19-2023 Basic metabolic 2000 panel - Serum or Plasma BASIC METABOLIC PNL Lab STAT ESRD on dialysis ([facility]) Expected: 03/20/2023, Expires: 06/19/2023 [facility] Work Phone: Comment on above: Expected: 03/20/2023 , Expires: 06/19/2023 Start: 03-20-2023 End: 03-08-2024 ECG COMPLETE ECG COMPLETE ECG STAT ESRD on dialysis ([facility]) Expected: 03/20/2023, Expires: 03/08/2024 [facility] Work Phone: Comment on above: Expected: 03/20/2023 , Expires: 03/08/2024 Start: 03-19-2023 Behavioral Health Screening Behavioral Health Screening [facility] Start: 03-19-2023 Depression Assessment Depression Ass essment [facility] Start: 01-17-2023 End: 04-18-2023 Basic metabolic 2000 panel - Serum or Plasma BASIC METABOLIC PNL Lab STAT ESRD on dialysis (HCC) Expected: 01/17/2023, Expires: 04/18/2023 [facility] Work Phone: Comment on above: Expected: 01/17/2023 , Expires: 04/18/2023 Start: 01-17-2023 End: 01-17-2024 ECG COMPLETE ECG COMPLETE ECG STAT ESRD on dialysis ([facility]) Expected: 01/17/2023, Expires: 01/17/2024 [facility] Work Phone: Comment on above: Expected: 01/17/2023 , Expires: 01/17/2024 Start: 01-04-2023 End: 03-06-2023 Basic metabolic 2000 panel - Serum or Plasma BASIC METABOLIC PNL Lab STAT Pre-op testing Expected: 01/04/2023, Expires: 03/06/2023 [facility] Work Phone: Comment on above: Expected: 01/04/2023 , Expires: 03/06/2023 Start: 01-04-2023 End: 01-02-2024 ECG COMPLETE ECG COMPLETE ECG STAT Pre-op testing Expected: 01/04/2023, Expires: 01/02/2024 [facility] Work Phone: Comment on above: Expected: 01/04/2023 , Expires: 01/02/2024 Start: 12-21-2022 End: 02-20-2023 ALGN RABBIT EPITHELIUM IGE ALGN RABBIT EPITHELIUM IGE Lab Routine Pre-op evaluation Allergy, initial encounter Expected: 12/21/2022, Expires: 02/20/2023 [facility] Work Phone: Comment on above: Expected: 12/21/2022 , Expires: 02/20/2023 Start: 12-21-2022 End: 12-22-2023 Echocardiography ECHO Cardiology Routine ESRD on dialysis (HCC) Preop cardiovascular exam Expected: 12/21/2022, Expires: 12/22/2023 [facility] Work Phone: Comment on above: Expected: 12/21/2022 , Expires: 12/22/2023 Start: 12-21-2022 End: 02-20-2023 STRONGYLOIDES IGG BL [facility] Work Phone: Comment on above: Expected: 12/21/2022 , Expires: 02/20/2023 Start: 11-17-2022 Covid-19 Vaccine () Covid-19 Vaccine () [facility] Start: 11-17-2022 Influenza vaccination C [facility] Start: 11-09-2022 End: 01-09-2023 Basic metabolic 2000 panel - Serum or Plasma BASIC METABOLIC PNL Lab STAT ESRD on dialysis (HCC) Expected: 11/09/2022, Expires: 01/09/2023 [facility] Work Phone: Comment on above: Expected: 11/09/2022 , Expires: 01/09/2023 Start: 11-09-2022 End: 10-28-2023 ECG COMPLETE ECG COMPLETE ECG STAT ESRD on dialysis (HCC) Expected: 11/09/2022, Expires: 10/28/2023 [facility] Work Phone: Comment on above: Expected: 11/09/2022 , Expires: 10/28/2023 Start: 03-28-2022 Patient encounter procedure [facility] [place] Start: 03-21-2022 End: 03-22-2023 amLODIPine (NORVASC) 10 mg Oral Tablet Daily ; TabletDOSE = 10 mg Oral Daily Start: 21-Mar-2022 End: 21-Mar-2023 Ordered: 21-Mar-2022 Darryn Grant Intent [facility] Start: 03-19-2022 DEPRESSION ASSESSMENT DEPRESSION ASS ESSMENT [facility] Start: 03-17-2022 End: 03-18-2023 HYDROmorphone Injectable 0.2 mg IntraVenous Push Every 4 Hours PRN ; (DILAUDID)DOSE = 1 mg IntraVenous Push Every 4 Hours, PRN Pain - Mod (4-6) Start: 17-Mar-2022 End: 17-Mar-2023 Ordered: 17-Mar-2022 Kareen Agee Intent [facility] Start: 03-16-2022 End: 03-17-2023 [facility] Start: 02-19-2022 End: 02-19-2023 [facility] Start: 02-18-2022 Chest pain Chest pain Scott e: 18-Feb-2022 [facility] Start: 12-10-2021 DTaP/Tdap/Td Vaccine s (7 - Td or Tdap) DTaP/Tdap/Td Vaccines (7 - Td or Tdap) [facility] Start: 12-10-2021 Urine microalbumin profile [facility] Start: 11-17-2021 Influenza vaccination INFLUENZA (#1) [facility] Start: 2019 Hepatitis B Vaccine (1 of 3 - Risk Dialysis 4-dose series) Hepatitis B Vaccine (1 of 3 - Risk Dialysis 4-dose series) [facility] Start: 2018 HEPATITIS A (1 of 2 - Risk 2-dose series) HEPATITIS A (1 of 2 - Risk 2-dose series) [facility] Start: 2018 Hepatitis A Vaccine (1 of 2 - Risk 2-dose series) Hepatitis A Vaccine (1 of 2 - Risk 2-dose series) [facility] Start: 2018 SHINGRIX VACCINE (1 of 2) KEYS GRIX VACCINE (1 of 2) [facility] Start: 2018 Urine microalbumin profile [facility] Start: 2017 ANNUAL PCP TEAM [employer] CAT DISEASE VISIT ANNUAL PCP TEAM CHRONIC DISEASE VISIT [facility] Start: 2017 Anxiety Screening Anxiety Screening [facility] Start: 2017 BP CONTROLLED (<130/80) BP CONTROLLE D (<130/80) [facility] Start: 2017 Depression Screening Depression Scre ening [facility] Start: 2017 HEPATITIS C SCREENING HEPATITIS C [facility] Start: 2017 Hepatitis C screening Hepatitis C [facility] Start: 2017 HIV SCREENING HIV SCREENING [facility] Start: 12-02-2015 HPV Vaccine (2 - Mal e 3-dose series) HPV Vaccine (2 - Male 3-dose series) [facility] Start: 12-02-2015 HPV Vaccines (2 - Ma le 3-dose series) HPV Vaccines (2 - Male 3-dose series) [facility] Start: 2015 Meningococcal B Vacc ine: Consider Based On Risk (1 of 2 - Patient Seeks Protection) Meningococcal B Vaccine: Consider Based On Risk (1 of 2 - Patient Seeks Protection) [facility] Start: 2015 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 (1 of 2 - Patient Seeks Protection) MENINGOCOCCAL B: Consider based on risk (1 of 2 - Patient Seeks Protection) [facility] Start: 2014 HPV Vaccine (1 - Mal e 3-dose series) HPV Vaccine (1 - Male 3-dose series) [facility] Start: 2013 PEDS TO ADULT TRANSI TION ANNUAL ASSESSMENT PEDS TO ADULT TRANSITION ANNUAL ASSESSMENT [facility] Start: 2011 PEDS TO ADULT TRANSI TION INITIAL DISCUSSION PEDS TO ADULT TRANSITION INITIAL DISCUSSION [facility] Start: 2010 HPV VACCINE (1 - Mal e 2-dose series) HPV VACCINE (1 - Male 2-dose series) [facility] Start: 2009 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 (1 of 2 - Risk Bexsero 2-dose series) MENINGOCOCCAL B: Consider based on risk (1 of 2 - Risk Bexsero 2-dose series) [facility] Start: 02-24-2008 HPV VACCINE (1 - Mal e 2-dose series) HPV VACCINE (1 - Male 2-dose series) [facility] Start: 2005 PNEUMOCOCCAL (1 - PCV) PNEUMOCOCCAL (1 - PCV) [facility] Start: 11-30-2004 Varicella vaccination Varicell a Vaccines (1 of 2 - 2-dose childhood series) [facility] Start: 02-24-2000 HEPATITIS A (1 of 2 - Risk 2-dose series) HEPATITIS A (1 of 2 - Risk 2-dose series) [facility] Start: 1999 COVID-19 VACCINE (#1) COVID-19 VACCI NE (#1) [facility] Start: 1999 HEPATITIS B (1 of 3 - 3-dose series) HEPATITIS B (1 of 3 - 3-dose series) [facility] Start: 1999 HIV screening HIV Screening [facility] Start: 1999 Yearly Adult Physical Yearly Adult P [facility] ACS (acute coronary syndrome) ACS (acute coronary syndrome) [facility] Basic metabolic 2000 panel - Serum or Plasma Basic Metabolic Panel Lab Routine Daily (Lab) until discontinued starting 01/06/2025, 1 completed [facility] Work Phone: Comment on above: Daily (Lab) until di scontinued starting 01/06/2025, 1 completed CBC W Auto Different ial panel - Blood CBC and Auto Differential Lab Routine Daily (Lab) until discontinued starting 01/06/2025, 1 completed [facility] Work Phone: Comment on above: Daily (Lab) until di scontinued starting 01/06/2025, 1 completed ECG 12 lead ECG 12 lead ECG STAT 01/27/2023 11:12 AM EST [facility] Work Phone: ECG 12 Lead [facility] Service Ar ea Work Phone: Comment on above: As needed until disc ontinued starting 01/05/2025 ECG COMPLETE ECG COMPLETE ECG STAT Renal failure, unspecified chronicity Preoperative examination Screening for venereal disease 12/21/2022 10:51 AM EDT [facility] Work Phone: End: 05-09-2023 Electrocardiogram, 12-lead [facility] Service Area Work Phone: Comment on above: As needed until disc ontinued starting 05/09/2023 Once for 1 Occurrenc es starting 05/09/2023 until 05/09/2023 Electrocardiogram, 12-lead PRN ACS symptoms Electrocardiogram, 12-lead PRN ACS symptoms ECG Routine As needed until discontinued starting 01/05/2025 [facility] Work Phone: Comment on above: As needed until disc ontinued starting 01/05/2025 End: 01-07-2025 Hemodialysis Hemodialysis inpatient 3 Hours Dialysis Routine Once for 1 Occurrences starting 01/07/2025 until 01/07/2025 [facility] Work Phone: Comment on above: Once for 1 Occurrenc es starting 01/07/2025 until 01/07/2025 Intro cath dialysis circuit w/trluml balo angiop INTRO NEEDLE/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 UPPER EXTREMITY VENOUS SIDE W/ANGIO,FLUORO GUIDED,INCLUSIVE OF RAD S&I ESRD (end stage renal disease) ([facility]) ME CATH End: 12-21-2023 KID K/P PANC REC INIT W/U KID K/P PANC REC INIT W/U ALLOGEN Routine Renal failure, unspecified chronicity Preoperative examination Screening for venereal disease 1 Occurrences starting 12/21/2022 until 12/21/2023 [facility] Work Phone: Comment on above: 1 Occurrences starti ng 12/21/2022 until 12/21/2023 KID K/P PANC REC INIT W/U KID K/ P PANC REC INIT W/U ALLOGEN Routine Renal failure, unspecified chronicity Preoperative examination Screening for venereal disease 12/21/2022 11:37 AM EDT [facility] Work Phone: Magnesium [Mass/volu me] in Serum or Plasma Magnesium Lab Routine Daily (Lab) until discontinued starting 01/06/2025, 1 completed [facility] Work Phone: Comment on above: Daily (Lab) until di scontinued starting 01/06/2025, 1 completed Patient Education [facility] Work Phone: Phosphate [Mass/volu me] in Serum or Plasma Phosphorus Lab Routine Daily (Lab) until discontinued starting 01/06/2025, 1 completed [facility] Work Phone: Comment on above: Daily (Lab) until di scontinued starting 01/06/2025, 1 completed End: 01-27-2023 Pulse oximetry, continuous Pulse oximetry, continuous Respiratory Care STAT Continuous until discontinued starting 01/27/2023 [facility] Service Area Work Phone: Comment on above: Continuous until dis continued starting 01/27/2023 RECIPIENT NOTIFICATION RECIPIENT NOTIFICATION ALLOGEN Routine Renal failure, unspecified chronicity Preoperative examination Screening for venereal disease Ordered: 12/21/2022 [facility] Work Phone: Comment on above: Ordered: 12/21/2022 End: 01-09-2025 Renal function 2000 panel - Serum or Plasma Renal Function Panel Lab Routine Daily (Lab) for 3 Occurrences starting 01/07/2025 until 01/09/2025 [facility] Work Phone: Comment on above: Daily (Lab) for 3 Oc currences starting 01/07/2025 until 01/09/2025 End: 01-27-2023 Troponin I.cardiac panel - Serum or Plasma by High sensitivity method [facility] Work Phone: Comment on above: STAT (Lab) for 1 Occ urrences starting 01/27/2023 until 01/27/2023 Once for 1 Occurrenc es starting 01/27/2023 until 01/27/2023 End: 03-24-2023 UPPER EXT MAP FOR DIALYSIS ACCESS SB VAS LAB UPPER EXT MAP FOR DIALYSIS ACCESS SB VAS LAB Vascular Lab Routine ESRD (end stage renal disease) (HCC) 1 Occurrences starting 03/24/2022 until 03/24/2023 [facility] Work Phone: Comment on above: 1 Occurrences starti ng 03/24/2022 until 03/24/2023 End: 05-23-2023 US A/V FISTULA GRAFT UNL VAS LAB US A/V FISTULA GRAFT UNL VAS LAB Vascular Lab Routine ESRD (end stage renal disease) (HCC) 1 Occurrences starting 05/22/2022 until 05/23/2023 [facility] Work Phone: Comment on above: 1 Occurrences starti ng 05/22/2022 until 05/23/2023 [facility] CATH [facility] OR Immunizations Immunization Date Immunization Notes Care Provider Hanna [facility] 09-11-2023 measles, mumps and rubella virus vaccine Bert Begum RN [facility] 09-11-2023 varicella virus vaccine Bert morris RN [facility] 02-26-2023 Hepatitis B vaccine (recombinant), CpG adjuvanted [facility] Work Phone: [facility] 05-22-2022 pneumococcal polysaccharide vaccine, 23 valent Shannan Schwartz RN [facility] 03-27-2022 pneumococcal (PCV20) vaccine, 20 valent (PREVNAR 20) Shannan Schwartz RN [facility] 11-14-2016 meningococcal vaccin e of unknown formulation and unknown serogroups Bert Begum RN [facility] 11-04-2015 HPV, unspecified formulation Ivette Manzano MD Work Phone: [facility] Work Phone: 12-11-2011 tetanus toxoid, redu shira diphtheria toxoid, and acellular pertussis vaccine, adsorbed Bert Begum RN [facility] Payers Date Payer Category Payer Medicare [id number] 2024 Unknown 2024 Self-pay 2023 [facility] [id number] 2023 Medicare ACCIDENT RELATED NON-MEDICARE ACCIDENT RELATED NON-MEDICARE [id number] 2023-Present [address] [place] [address] [id number] 2022 Private Health Insurance HUMANA HUMANA MEDICAID [facility] [id number] 2022-Present [address] [address] [place] [address] Medicaid [id number] 2022 Medicaid [id number] 2022 Medicaid [id number] 2021 Unknown 2021 Unknown [id number] 1999 Unknown [id number]. 1067 1999 Unknown [id number]. 8 1999 Unknown [id number]. 1068 1999 Unknown [id number]. 1243 1999 Unknown [id number]. 1243 1999 Unknown [id number]. 1246 1999 Unknown [id number]. 902 Unknown [id number] Unknown [id number]. 462 Unknown [id number]. 462 Unknown [id number]. 462 Unknown [id number] [id number]. 462 Unknown [id number] [id number]. 462 Unknown [id number]. 462 Unknown [id number] 462 Social History Date Type Detail Facility [facility] Tobacco smoking consumption unknown [facility] Work Phone: Start: 1999 Sex Assigned At Not on file [facility] Start: 03-27-2022 End: 03-20-2023 Tobacco smoking status NHIS Occasional tobacco smoker [facility] Start: 03-19-2017 History of tobacco use Cigarette Smo ker [facility] Start: 03-27-2022 End: 01-05-2025 Tobacco use and exposure Smokeless tobacco non-user [facility] History of tobacco use Cigar Smoker [facility] Work Phone: Start: 04-20-2022 End: 08-06-2023 Alcohol intake Current drinker of alcohol (finding) [facility] Start: 04-20-2022 Alcohol Comment very rarely [facility] Start: 09-13-2022 End: 01-05-2025 History of Social function [facility] Start: 09-13-2022 End: 01-05-2025 Tobacco use panel [facility] Start: 01-17-2023 End: 05-09-2023 Exposure to SARS-CoV-2 (event) Yes [facility] Start: 2000 [facility] Start: 03-06-2024 Gender identity Identifies as male gender (finding) [facility] Work Phone: Start: 02-25-2024 End: 03-06-2024 Exposure to SARS-CoV-2 (event) Not sure [facility] Start: 10-03-2024 End: 10-13-2024 Tobacco smoking status NHIS Ex-smoker (finding) [facility] Start: 01-05-2025 Tobacco smoking stat [facility] Never smoked tobacco [facility] Start: 01-05-2025 Alcoholic beverage intake Lifetime non-drinker (finding) [facility] Work Phone: Within the last year , have you been afraid of your partner or ex-partner? No [facility] Work Phone: How often do you hav e a drink containing alcohol? Monthly or less [facility] Work Phone: How many standard drinks containing alcohol do you have on a typical day? 1 or 2 [facility] Work Phone: How often do you hav e 6 or more drinks on 1 occasion? Never [facility] Work Phone: How hard is it for y ou to pay for the very basics like food, housing, medical care, and heating Not very hard [facility] Work Phone: Do you feel stress - tense, restless, nervous, or anxious, or unable to sleep at night because your mind is troubled all the time - these days [OSQ] Not at all [facility] Work Phone: On those days that y ou engage in moderate to strenuous exercise, how many minutes, on average, do you exercise? Not on file [facility] Work Phone: (I/We) worried wheth er (my/our) food would run out before (I/we) got money to buy more. Never true [facility] Work Phone: Start: 02-10-2022 Sex Male (finding) [facility] Goals Date Patient Goal Desired Activity /State Personal health goal Functional Status Date Assessment Result Facility 01-06-2025 Functional status 162/95 025 12:44 PM EDT Interface, Masimo Data In [facility]/[address] [place] [address] 01-06-2025 Vital signs 95 01/06/2025 12 :44 PM EDT Interface, Masimo Data In [facility] Work Phone: 01-05-2025 [facility] Work Phone: 01-05-2025 Total score [AUDIT-C] 1 01/06/20 25 9:18 PM EDT Alexa Cruz, TASHIA [facility] Work Phone: 01-05-2025 Patient Health Questionnaire 2 item (PHQ-2) [Reported] [facility] Work Phone: 01-05-2025 Functional status [facility] Work Phone: 01-05-2025 Functional status 1 [facility] Work Phone: 01-05-2025 [facility]: 01-05-2025 [facility] Work Phone: 01-05-2025 Functional status [facility] Work Phone: 01-05-2025 [facility] 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 rating scale screener - recent [C-SSRS] [facility] Work Phone: 10-14-2024 Functional status Ambulates [facility] Work Phone: Functional observable [facility] Mental Status Date Assessment Result Facility 10-13-2024 Cognitive function Voice/Name Nelly Hamm [facility] Work Phone: 03-19-2022 Cognitive functi ons [id number] [facility] 02-21-2022 Cognitive functi ons :[facility] Clinical Notes 02-18-2022 to 01-06-2025 Keara Swann RN - 01/06/2025 4:20 PM EDTMariadna Swann RN - 01/06/2025 4:20 PM EDTCare Plan - Keara Swann RN - 01/06/2025 3:42 PM EDTCare Plan - Keara Swann RN - 01/06/2025 3:42 PM EDT Note Date & Type Note Facility 01-06-2025 Nurse Note Patient expressed wanting to leave AMA. Rebecca WIRE WRAPPING MACHINE OPERATOR at bedside. AMA form filled out. Patients IV and telemetry removed. [facility] Work Phone: 01-06-2025 Nurse Note Patient expressed wanting to leave AMA. Rebecca WIRE WRAPPING MACHINE OPERATOR at bedside. AMA form filled out. Patients IV and telemetry removed. documented in this encounter [facility] Work Phone: 01-06-2025 Plan of care note The patient's goals for the shift include rest and comfrot The clinical goals for the shift include patient will have no complaints of nausea throughout shift Over the shift, the patient did not make progress toward the following goals. Barriers to progression include; none. Recommendations to address these barriers include; continue current plan of care. Problem: Pain - Adult Goal: Verbalizes/displays adequate comfort level or baseline comfort level Outcome: Progressing Flowsheets (Taken 01/06/2025837) Verbalizes/displays adequate comfort level or baseline comfort level: Encourage patient to monitor pain and request assistance Consider cultural and social influences on pain and pain management Administer analgesics based on type and severity of pain and evaluate response Assess pain using appropriate pain scale Problem: Chronic Conditions and Co-morbidities Goal: Patient's chronic conditions and co-morbidity symptoms are monitored and maintained or improved Outcome: Progressing Flowsheets (Taken 01/06/2025837) Care Plan - Patient's Chronic Conditions and Co-Morbidity Symptoms are Monitored and Maintained or Improved: Monitor and assess patient's chronic conditions and comorbid symptoms for stability, deterioration, or improvement Collaborate with multidisciplinary team to address chronic and comorbid conditions and prevent exacerbation or deterioration Update acute care plan with appropriate goals if chronic or comorbid symptoms are exacerbated and prevent overall improvement and discharge [facility] Work Phone: 01-06-2025 Miscellaneous Notes The patient's goals for the shift include rest and comfrot The clinical goals for the shift include patient will have no complaints of nausea throughout shift Over the shift, the patient did not make progress toward the following goals. Barriers to progression include; none. Recommendations to address these barriers include; continue current plan of care. Problem: Pain - Adult Goal: Verbalizes/displays adequate comfort level or baseline comfort level Outcome: Progressing Flowsheets (Taken 01/06/2025837) Verbalizes/displays adequate comfort level or baseline comfort level: Encourage patient to monitor pain and request assistance Consider cultural and social influences on pain and pain management Administer analgesics based on type and severity of pain and evaluate response Assess pain using appropriate pain scale Problem: Chronic Conditions and Co-morbidities Goal: Patient's chronic conditions and co-morbidity symptoms are monitored and maintained or improved Outcome: Progressing Flowsheets (Taken 01/06/2025837) Care Plan - Patient's Chronic Conditions and Co-Morbidity Symptoms are Monitored and Maintained or Improved: Monitor and assess patient's chronic conditions and comorbid symptoms for stability, deterioration, or improvement Collaborate with multidisciplinary team to address chronic and comorbid conditions and prevent exacerbation or deterioration Update acute care plan with appropriate goals if chronic or comorbid symptoms are exacerbated and prevent overall improvement and discharge Notes/Events during Treat Tx ended 1 hour early d/t patient request. AMA signed. Report to Receiving RN: Report To: TASHIA Sarah Time Report Called: [id number] Hand-Off Communication to Receiving RN: Tx tolerated well. HTN AMA signed d/t eary TX termination Complications During Treatment: Yes, See above Ultrafiltration Treatment: No Medications Administered During Dialysis: Yes, Hydralazine Blood Products Administered During Dialysis: No Labs Sent During Dialysis: No Heparin Drip Rate Changes: No Sending BP: 199/100, 93 Dialysis Catheter Dressing Changed: N/A Significant Events/Interventions: Early Tx termination per patient request. HTN. Provider Contacted/Time/Response/Orders: Dr. Pollock concerning TX ending early HD Orders Followed: Yes Tx Initiated by/Time: 09, TASHIA Watson Tx Terminated by/Time: 1151, TASHIA Watson Fluid Removed: 1L Electronic Signatures: Authored: TASHIA Gu Last Updated: 8:16 AM by MILEY OCONNOR Report from Sending RN: Report From: TASHIA Sarah Recent Surgery or Procedure: GI Consult for N/V Baseline Level of Consciousness (LOC): A&Ox3 Admission Dx: HTN/Hyperkalemia Precautions/Isolations: None Code Status: Full Code Oxygen Use: No Type: Room Air Diabetic: No Receiving BP: 175/113 Last BP Med Given Day of Dialysis: See EMAR Last Pain Med Given: See EMAR Lab Tests to be Obtained with Dialysis: No Lastest Lab Values: K+: 5.7 Ca+: 9.0 HGB: 9.2 BUN: 20 Creat: 7.4 INR: 1.3 Hep B: Ag-/Ab+(514.7) 01-05-2025 Blood Transfusion to be Given During Dialysis: No Available IV Access: Yes, Saline Locked Dialysis Access: Right AVF Medications to be Administered During Dialysis: No Continuous IV Infusion Running: No Restraints on Currently or in the Last 24 Hours: No Hand-Off Communication from Sending RN: Patient stable for HD Notes/Events during Treat Tx ended 1 hour early d/t patient request. AMA signed. Report to Receiving RN: Report To: TASHIA Sarah Time Report Called: [id number] Hand-Off Communication to Receiving RN: Tx tolerated well. HTN, AMA signed d/t eary TX termination Complications During Treatment: Yes, See above Ultrafiltration Treatment: No Medications Administered During Dialysis: Yes, Hydralazine Blood Products Administered During Dialysis: No Labs Sent During Dialysis: No Heparin Drip Rate Changes: No Sending BP: 199/100, 93 Dialysis Catheter Dressing Changed: N/A Significant Events/Interventions: Early Tx termination per patient request. HTN. Provider Contacted/Time/Response/Orders: Dr. Pollock concerning TX ending early HD Orders Followed: Yes Tx Initiated by/Time: 930, TASHIA Watson Tx Terminated by/Time: 1150, TASHIA Watson Fluid Removed: 1L Electronic Signatures: Authored: TASHIA Gu Last Updated: 8:16 AM by MILEY OCONNOR The patient's goals for the shift include The clinical goals for the shift include Patient will have no complaints of nausea throughout the shift Problem: Nutrition Goal: Nutrient intake appropriate for maintaining nutritional needs Outcome: Progressing Problem: Chronic Conditions and Co-morbidities Goal: Patient's chronic conditions and co-morbidity symptoms are monitored and maintained or improved Outcome: Progressing Problem: Safety - Adult Goal: Free from fall injury Outcome: Progressing Problem: Discharge Planning Goal: Discharge to home or other facility with appropriate resources Outcome: Progressing Notes/Events during Treatment: HTN Report to Receiving RN: Report To: TASHIA Liu Time Report Called: 2019 Hand-Off Communication to Receiving RN: Tx tolerated well. HTN-asymptomatic Complications During Treatment: Yes, HTN Ultrafiltration Treatment: No Medications Administered During Dialysis: Yes, Coreg, Norvasc, Hydralazine Blood Products Administered During Dialysis: No Labs Sent During Dialysis: No Heparin Drip Rate Changes: No Sending BP: 199/105, 91 Dialysis Catheter Dressing Changed:N/A Significant Events/Interventions: HTN Provider Contacted/Time/Response/Orders: Dr. Zambrano for BP medications d/t hypertension. HD Orders Followed: Yes Tx Initiated by/Time: 160, Johnna, OCDT Tx Terminated by/Time: Johnna, OCDT Fluid Removed: 3L Electronic Signatures: Authored: TASHIA Gu Last Updated: 3:32 PM by MILEY OCONNOR Report from Sending RN: Report From: TASHIA Pastor Recent Surgery or Procedure: No Baseline Level of Consciousness (LOC): A&Ox3 Admission Dx: N/V, Hyperkalemia, Missed HD Precautions/Isolations: None Code Status: Assume Full Code Oxygen Use: No Type: Room Air Diabetic: No Receiving BP: 186/118, 100 Last BP Med Given Day of Dialysis: See EMAR Last Pain Med Given: See EMAR Lab Tests to be Obtained with Dialysis: No Lastest Lab Values: K+: 5.7 Ca+: 9.8 HGB: 10.2 BUN: 47 Creat: 12.5 INR: 1.3 Hep B: Ag/Ab(No recent results) Labs ordered. Blood Transfusion to be Given During Dialysis: No Available IV Access: Yes, Saline Locked Dialysis Access: Right AVF Medications to be Administered During Dialysis: No Continuous IV Infusion Running: No Restraints on Currently or in the Last 24 Hours: No Hand-Off Communication from Sending RN: Patient stable for HD Notes/Events during Treatment: HTN Report to Receiving RN: Report To: TASHIA Liu Time Report Called: 2019 Hand-Off Communication to Receiving RN: Tx tolerated well. HTN-asymptomatic Complications During Treatment: Yes, HTN Ultrafiltration Treatment: No Medications Administered During Dialysis: Yes, Coreg, Norvasc, Hydralazine Blood Products Administered During Dialysis: No Labs Sent During Dialysis: No Heparin Drip Rate Changes: No Sending BP: 199/105, 91 Dialysis Catheter Dressing Changed:N/A Significant Events/Interventions: HTN Provider Contacted/Time/Response/Orders: Dr. Zambrano for BP medications d/t hypertension. HD Orders Followed: Yes Tx Initiated by/Time: 160, Johnna, OCDT Tx Terminated by/Time: Johnna, OCDT Fluid Removed: 3L Electronic Signatures: Authored: TASHIA Gu Last Updated: 3:32 PM by MILEY OCONNOR Associated Order(s): Critical Care Procedure Critical Care Performed by: Carlos Hutchison MD Authorized by: Carlos Hutchison MD Critical care provider statement: Critical care time (minutes): 45 Critical care time was exclusive of: Separately billable procedures and treating other patients Critical care was necessary to treat or prevent imminent or life-threatening deterioration of the following conditions: Renal failure and Other (use comment box to enter another option) (Hyperkalemia) Critical care was time spent personally by me on the following activities: Blood draw for specimens, development of treatment plan with patient or surrogate, discussions with primary provider, evaluation of patient's response to treatment, examination of patient, obtaining history from patient or surrogate, ordering and performing treatments and interventions, ordering and review of laboratory studies, ordering and review of radiographic studies, re-evaluation of patient's condition and pulse oximetry Care discussed with: admitting provider Carlos Hutchison MD 01/05/25 1129 documented in this encounter [facility] Work Phone: 01-06-2025 History of Present illness Narrative 01/06/25 1527 Discharge Planning Living Arrangements Alone Support Systems Family members;Friends/neighbors Type of Residence Private residence Who is requesting discharge planning? Provider Home or Post Acute Services Other (Comment) (dialysis @ [facility] M-W-F) Expected Discharge Disposition Home Intensity of Service Intensity of Service 0-30 min GI consulted for reported hematemesis and melena prior to arrival. Attempted to see the patient today, but at dialysis at time of visit. Spoke with bedside RN who reports the patient has not had any signs of overt GI bleeding since admission, no hematemesis, melena or hematochezia reported. GI will see the patient tomorrow and official consult note to follow. Discussed with Dr. Paniagua Daily Progress Note Lawson Doyle is a 24 y.o. male on day 1 of admission presenting with Hyperkalemia. Subjective Patient seen post dialysis with no complaints. Tolerated well. Discussed plan with patient okay for clear liquid diet n.p.o. at midnight for scope in morning with GI. Objective Physical Exam Physical Exam Constitutional: Appearance: Normal appearance. HENT: Head: Normocephalic. Mouth/Throat: Mouth: Mucous membranes are moist. Eyes: Pupils: Pupils are equal, round, and reactive to light. Cardiovascular: Rate and Rhythm: Normal rate and regular rhythm. Heart sounds: Normal heart sounds, S1 normal and S2 normal. Pulmonary: Effort: Pulmonary effort is normal. Breath sounds: Normal breath sounds. Abdominal: General: Bowel sounds are normal. Palpations: Abdomen is soft. Musculoskeletal: General: Normal range of motion. Cervical back: Neck supple. Skin: General: Skin is warm. Comments: Uremic pruritus on right arm from high Phos levels per patient Neurological: Mental Status: He is alert and oriented to person, place, and time. Motor: Weakness present. Psychiatric: Mood and Affect: Mood normal. Behavior: Behavior normal. Last Recorded Vitals Blood pressure (!) 162/95, pulse 95, temperature 37.5 C (99.5 F), resp. rate 18, height 1.778 m (5' 10"), weight 78.5 kg (173 lb 1 oz), SpO2 95%. Intake/Output last 3 Shifts: I/O last 3 completed shifts: In: 1000 (12.7 mL/kg) [I.V.:600 (7.6 mL/kg); Other:400] Out: 6400 (81.5 mL/kg) [Other:6400] Weight: 78.5 kg Medications Scheduled medications Scheduled Medications[1] Continuous medications Continuous Medications[2] PRN medications PRN Medications[3] Labs CBC: Results from last 7 days Lab Units 01/06/25 0549 01/05/25 0854 WBC AUTO x10*3/uL 7.2 10.3 RBC AUTO x10*6/uL 3.00* 3.31* HEMOGLOBIN g/dL 9.2* 10.2* HEMATOCRIT % 29.4* 32.3* MCV fL 98 98 MCH pg 30.7 30.8 MCHC g/dL 31.3* 31.6* RDW % 18.6* 19.2* PLATELETS AUTO x10*3/uL 250 306 CMP: Results from last 7 days Lab Units 01/06/25 0549 01/05/25 1442 01/05/25 0854 SODIUM mmol/L 139 -- 137 POTASSIUM mmol/L 5.7* 5.7* 7.5* CHLORIDE mmol/L 99 -- 95* CO2 mmol/L 30 -- 26 BUN mg/dL 20 -- 47* CREATININE mg/dL 7.40* -- 12.58* GLUCOSE mg/dL 83 -- 90 PROTEIN TOTAL g/dL -- -- 6.7 CALCIUM mg/dL 9.0 -- 9.8 BILIRUBIN TOTAL mg/dL -- -- 0.9 ALK PHOS U/L -- -- 62 AST U/L -- -- 12 ALT U/L -- -- 24 BMP: Results from last 7 days Lab Units 01/06/25 0549 01/05/25 1442 01/05/25 0854 SODIUM mmol/L 139 -- 137 POTASSIUM mmol/L 5.7* 5.7* 7.5* CHLORIDE mmol/L 99 -- 95* CO2 mmol/L 30 -- 26 BUN mg/dL 20 -- 47* CREATININE mg/dL 7.40* -- 12.58* CALCIUM mg/dL 9.0 -- 9.8 GLUCOSE mg/dL 83 -- 90 Magnesium: Results from last 7 days Lab Units 01/06/25 0549 MAGNESIUM mg/dL 2.26 Troponin: BNP: Lipid Panel: Results from last 7 days Lab Units 01/05/25 0854 INR 1.3* PROTIME seconds 14.2* Nutrition Relevant Results Results from last 7 days Lab Units 01/06/25 0549 01/05/25 1016 01/05/25 0854 POCT GLUCOSE mg/dL -- 75 -- GLUCOSE mg/dL 83 -- 90 No results found for: "HGBA1C" Assessment/Plan Severe hyperkalemia ESRD on HD History of Alport syndrome Hematemesis/melena -Patient urgently went to HD from ED on 01/05 -Nephro consulted -GI consult plan for scope in a.m. -Clear liquids n.p.o. at midnight -Trend hemoglobin -PPI twice daily Hypertension -Resume home meds DVTp: Not indicated PLAN: Home [facility] Plan of care was discussed extensively with patient. Patient verbalized understanding through teach back method. All question and concerns addressed upon examination. Of note, this documentation is completed using the [employer] Dictation system (voice recognition software). There may be spelling and/or grammatical errors that were not corrected prior to final submission. [1] amLODIPine, 5 mg, oral, Daily carvedilol, 25 mg, oral, BID cinacalcet, 30 mg, oral, Daily with evening meal pantoprazole, 40 mg, intravenous, BID polyethylene glycol, 17 g, oral, Daily sevelamer carbonate, 2,400 mg, oral, TID sodium zirconium cyclosilicate, 10 g, oral, q8h [2] [3] PRN medications: acetaminophen OR acetaminophen OR acetaminophen, hydrALAZINE, labetaloL documented in this encounter [facility] Work Phone: 01-06-2025 Consult note Formatting of th is note is different from the original. [facility] Nephrology Consult Note Reason for Consult: ESRD on maintenance hemodialysis Sunday through AV fistula Requesting Physician: Dr. Telly Quintanilla MD Chief Complaint: Nausea emesis History Obtained From: patient, electronic medical record History of Present Ilness: 24 y.o. 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 Social History: Social History Socioeconomic History Marital status: Single Spouse name: Not on file Number of children: Not on file Years of education: Not on file Highest education level: Not on file Occupational History Not on file Tobacco Use Smoking status: Never Smokeless tobacco: Never Vaping Use Vaping status: Never Used Substance and Sexual Activity Alcohol use: Never Drug use: Never Sexual activity: Not on file Other Topics Concern Not on file Social History Narrative Not on file Social Drivers of Health Financial Resource Strain: Low Risk (01/05/2025) Overall Financial Resource Strain (CARDIA) Difficulty of Paying Living Expenses: Not very hard Food Insecurity: No Food Insecurity (01/05/2025) Hunger Vital Sign Worried About Running Out of Food in the Last Year: Never true Ran Out of Food in the Last Year: Never true Transportation Needs: No Transportation Needs (01/05/2025) PRAPARE - Transportation Lack of Transportation (Medical): No Lack of Transportation (Non-Medical): No Physical Activity: Unknown (01/05/2025) Exercise Vital Sign Days of Exercise per Week: 5 days Minutes of Exercise per Session: Not on file Stress: No Stress Concern Present (01/05/2025) [employer] - Occupational Stress Questionnaire Feeling of Stress: Not at all Social Connections: Not on file Intimate Partner Violence: Not At Risk (01/05/2025) Humiliation, Afraid, Rape, and Kick questionnaire Fear of Current or Ex-Partner: No Emotionally Abused: No Physically Abused: No Sexually Abused: No Housing Stability: Low Risk (01/05/2025) Housing Stability Vital Sign Unable to Pay for Housing in the Last Year: No Number of Times Moved in the Last Year: 0 Homeless in the Last Year: No Family History: Family History[4] Review of Systems: Denied any other organ system related symptoms patient is receiving his order dialysis well-tolerated no treatment related complications hemodialysis machine reviewed Physical exam: Constitutional: VITALS: BP (!) 199/106 Pulse 93 Temp 36.8 C (98.2 F) (Temporal) Resp 18 Ht 1.778 m (5' 10") Wt 78.5 kg (173 lb 1 oz) SpO2 95% BMI 24.83 kg/m Wt Readings from Last 3 Encounters: 01/05/25 78.5 kg (173 lb 1 oz) 05/09/23 75 kg (165 lb 5.5 oz) 01/27/23 72.5 kg (159 lb 13.3 oz) Gen: alert, awake, nad Head: atraumatic, normocephalic Skin: no rash, turgor wnl Heent: eomi, mmm Neck: no bruits or jvd noted, thyroid normal Lungs: clear to auscultation Heart: regular rate and rhythm, no murmurs Abdomen: +bs, soft, nt, nd, no hepatosplenomegaly Extremities: no edema Psychiatric: mood and affect appropriate; judgement and insight intact Musculoskeletal: Rom, muscular strength intact; digits, nails normal Data/ CBC: Lab Results Component Value Date WBC 7.2 01/06/2025 RBC 3.00 (L) 01/06/2025 HGB 9.2 (L) 01/06/2025 HCT 29.4 (L) 01/06/2025 MCV 98 01/06/2025 MCH 30.7 01/06/2025 MCHC 31.3 (L) 01/06/2025 RDW 18.6 (H) 01/06/2025 PLT 250 01/06/2025 BMP: Lab Results Component Value Date NA 139 01/06/2025 K 5.7 (H) 01/06/2025 CL 99 01/06/2025 CO2 30 01/06/2025 BUN 20 01/06/2025 CREATININE 7.40 (H) 01/06/2025 CALCIUM 9.0 01/06/2025 GLUCOSE 83 01/06/2025 ECG 12 lead Sinus tachycardia Possible Left atrial enlargement Rightward axis Borderline ECG When compared with ECG of 09-MAY-2023 17:04, QRS axis Shifted right CT abdomen pelvis wo IV contrast Narrative: STUDY: CT Abdomen and Pelvis without IV Contrast; 01/05/2025, 12:45 PM INDICATION: Upper abdominal pain. COMPARISON: CT CAP 05/09/2023, 03/18/2022, CT AP 03/04/2022. ACCESSION NUMBER(S): [id number] ORDERING CLINICIAN: MEKHI WEEMS TECHNIQUE: CT of the abdomen and pelvis was performed. Contiguous axial images were obtained at 3 mm slice thickness through the abdomen and pelvis. Coronal and sagittal reconstructions at 3 mm slice thickness were performed. No intravenous contrast was administered. Automated mA/kV exposure control was utilized and patient examination was performed in strict accordance with principles of ALARA. FINDINGS: Please note that the evaluation of vessels, lymph nodes and organs is limited without intravenous contrast. LOWER CHEST: Normal heart size. Small to moderate-sized pericardial effusion. Small bilateral pleural effusions greater in size on the right than the left. Interstitial thickening of the lower lobes suggestive of mild pulmonary edema. ABDOMEN: LIVER: Liver is mildly enlarged possibly due to passive congestion. Smooth surface contour. Normal attenuation. BILE DUCTS: No intrahepatic or extrahepatic biliary ductal dilatation. GALLBLADDER: No calcified gallstones. Pericholecystic fluid likely related to the presence of minimal ascites. STOMACH: No abnormalities identified. PANCREAS: No masses or ductal dilatation. SPLEEN: No splenomegaly or focal splenic lesion. ADRENAL GLANDS: No thickening or nodules. KIDNEYS AND URETERS: Kidneys again noted to be small in size indicating chronic parenchymal renal disease. No renal or ureteral calculi. PELVIS: BLADDER: No abnormalities identified. REPRODUCTIVE ORGANS: No abnormalities identified. BOWEL: No abnormalities identified. VESSELS: No abnormalities identified. Abdominal aorta is normal in caliber. PERITONEUM/RETROPERITONEUM/LYMPH NODES: Minimal ascites. No pneumoperitoneum. No lymphadenopathy. ABDOMINAL WALL: No abnormalities identified. SOFT TISSUES: Diffuse edema of the subcutaneous tissues. BONES: No acute fracture or aggressive osseous lesion. Impression: Small to moderate-sized pericardial effusion. Small bilateral pleural effusions greater in size on the right than left. Mild pulmonary edema. Diffuse subcutaneous edema. Trace ascites. Mild hepatomegaly which may be due to passive congestion. Signed by Behzad Chicas MD LFT: Lab Results Component Value Date AST 12 01/05/2025 ALT 24 01/05/2025 ALKPHOS 62 01/05/2025 BILITOT 0.9 01/05/2025 Urinalysis: Lab Results Component Value Date ELOISA 8.0 01/05/2025 PROTUR 300 (3+) (A) 01/05/2025 GLUCOSEU 100 (1+) (A) 01/05/2025 BLOODU 0.06 (1+) (A) 01/05/2025 KETONESU NEGATIVE 01/05/2025 BILIRUBINU NEGATIVE 01/05/2025 NITRITEU NEGATIVE 01/05/2025 LEUKOCYTESU NEGATIVE 01/05/2025 Imaging: ECG 12 lead Sinus tachycardia Possible Left atrial enlargement Rightward axis Borderline ECG When compared with ECG of 09-MAY-2023 17:04, QRS axis Shifted right CT abdomen pelvis wo IV contrast Narrative: STUDY: CT Abdomen and Pelvis without IV Contrast; 01/05/2025, 12:45 PM INDICATION: Upper abdominal pain. COMPARISON: CT CAP 05/09/2023, 03/18/2022, CT AP 03/04/2022. ACCESSION NUMBER(S): [id number] ORDERING CLINICIAN: MEKHI WEEMS TECHNIQUE: CT of the abdomen and pelvis was performed. Contiguous axial images were obtained at 3 mm slice thickness through the abdomen and pelvis. Coronal and sagittal reconstructions at 3 mm slice thickness were performed. No intravenous contrast was administered. Automated mA/kV exposure control was utilized and patient examination was performed in strict accordance with principles of ALARA. FINDINGS: Please note that the evaluation of vessels, lymph nodes and organs is limited without intravenous contrast. LOWER CHEST: Normal heart size. Small to moderate-sized pericardial effusion. Small bilateral pleural effusions greater in size on the right than the left. Interstitial thickening of the lower lobes suggestive of mild pulmonary edema. ABDOMEN: LIVER: Liver is mildly enlarged possibly due to passive congestion. Smooth surface contour. Normal attenuation. BILE DUCTS: No intrahepatic or extrahepatic biliary ductal dilatation. GALLBLADDER: No calcified gallstones. Pericholecystic fluid likely related to the presence of minimal ascites. STOMACH: No abnormalities identified. PANCREAS: No masses or ductal dilatation. SPLEEN: No splenomegaly or focal splenic lesion. ADRENAL GLANDS: No thickening or nodules. KIDNEYS AND URETERS: Kidneys again noted to be small in size indicating chronic parenchymal renal disease. No renal or ureteral calculi. PELVIS: BLADDER: No abnormalities identified. REPRODUCTIVE ORGANS: No abnormalities identified. BOWEL: No abnormalities identified. VESSELS: No abnormalities identified. Abdominal aorta is normal in caliber. PERITONEUM/RETROPERITONEUM/LYMPH NODES: Minimal ascites. No pneumoperitoneum. No lymphadenopathy. ABDOMINAL WALL: No abnormalities identified. SOFT TISSUES: Diffuse edema of the subcutaneous tissues. BONES: No acute fracture or aggressive osseous lesion. Impression: Small to moderate-sized pericardial effusion. Small bilateral pleural effusions greater in size on the right than left. Mild pulmonary edema. Diffuse subcutaneous edema. Trace ascites. Mild hepatomegaly which may be due to passive congestion. Signed by Behzad Chicas MD Assessment/ 24 y.o. 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 Please do not hesitate to call with questions. Severino Pollock MD [1] History reviewed. No pertinent past medical history. [2] Past Surgical History: Procedure Laterality Date FRENULECTOMY, LINGUAL 03/02/2016 Excision Of Lingual Frenum OTHER SURGICAL HISTORY 11/04/2015 Surgery [3] No current facility-administered medications on file prior to encounter. Current Outpatient Medications on File Prior to Encounter Medication Sig Dispense Refill amLODIPine (Norvasc) 5 mg tablet Take 1 tablet (5 mg) by mouth once daily. carvedilol (Coreg) 25 mg tablet Take 1 tablet (25 mg) by mouth 2 times a day. cinacalcet (Sensipar) 30 mg tablet Take 1 tablet (30 mg) by mouth once daily in the evening. Take with meals. RenaPlex-D 800 mcg-12.5 mg -2,000 unit tablet Take 1 tablet by mouth once daily. sevelamer carbonate (Renvela) 800 mg tablet Take 3 tablets (2,400 mg) by mouth 3 times a day before meals. [DISCONTINUED] carvedilol (Coreg) 12.5 mg tablet Take 1 tablet (12.5 mg) by mouth 2 times a day. cyclobenzaprine (Flexeril) 10 mg tablet Take 1 tablet (10 mg) by mouth 3 times a day as needed for muscle spasms for up to 15 doses. (Patient not taking: Reported on 01/05/2025) 15 tablet 0 ondansetron ODT (Zofran-ODT) 4 mg disintegrating tablet Take 1 tablet (4 mg) by mouth every 8 hours if needed for nausea or vomiting. (Patient not taking: Reported on 01/05/2025) 15 tablet 0 [4] No family history on file. [facility] Work Phone: 01-06-2025 Consult note Formatting of th is note is different from the original. [facility] Nephrology Consult Note Reason for Consult: ESRD on maintenance hemodialysis Sunday through AV fistula Requesting Physician: Dr. Telly Quintanilla MD Chief Complaint: Nausea emesis History Obtained From: patient, electronic medical record History of Present Ilness: 24 y.o. 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 Social History: Social History Socioeconomic History Marital status: Single Spouse name: Not on file Number of children: Not on file Years of education: Not on file Highest education level: Not on file Occupational History Not on file Tobacco Use Smoking status: Never Smokeless tobacco: Never Vaping Use Vaping status: Never Used Substance and Sexual Activity Alcohol use: Never Drug use: Never Sexual activity: Not on file Other Topics Concern Not on file Social History Narrative Not on file Social Drivers of Health Financial Resource Strain: Low Risk (01/05/2025) Overall Financial Resource Strain (CARDIA) Difficulty of Paying Living Expenses: Not very hard Food Insecurity: No Food Insecurity (01/05/2025) Hunger Vital Sign Worried About Running Out of Food in the Last Year: Never true Ran Out of Food in the Last Year: Never true Transportation Needs: No Transportation Needs (01/05/2025) PRAPARE - Transportation Lack of Transportation (Medical): No Lack of Transportation (Non-Medical): No Physical Activity: Unknown (01/05/2025) Exercise Vital Sign Days of Exercise per Week: 5 days Minutes of Exercise per Session: Not on file Stress: No Stress Concern Present (01/05/2025) [employer] - Occupational Stress Questionnaire Feeling of Stress: Not at all Social Connections: Not on file Intimate Partner Violence: Not At Risk (01/05/2025) Humiliation, Afraid, Rape, and Kick questionnaire Fear of Current or Ex-Partner: No Emotionally Abused: No Physically Abused: No Sexually Abused: No Housing Stability: Low Risk (01/05/2025) Housing Stability Vital Sign Unable to Pay for Housing in the Last Year: No Number of Times Moved in the Last Year: 0 Homeless in the Last Year: No Family History: Family History[4] Review of Systems: Denied any other organ system related symptoms patient is receiving his order dialysis well-tolerated no treatment related complications hemodialysis machine reviewed Physical exam: Constitutional: VITALS: BP (!) 199/106 Pulse 93 Temp 36.8 C (98.2 F) (Temporal) Resp 18 Ht 1.778 m (5' 10") Wt 78.5 kg (173 lb 1 oz) SpO2 95% BMI 24.83 kg/m Wt Readings from Last 3 Encounters: 01/05/25 78.5 kg (173 lb 1 oz) 05/09/23 75 kg (165 lb 5.5 oz) 01/27/23 72.5 kg (159 lb 13.3 oz) Gen: alert, awake, nad Head: atraumatic, normocephalic Skin: no rash, turgor wnl Heent: eomi, mmm Neck: no bruits or jvd noted, thyroid normal Lungs: clear to auscultation Heart: regular rate and rhythm, no murmurs Abdomen: +bs, soft, nt, nd, no hepatosplenomegaly Extremities: no edema Psychiatric: mood and affect appropriate; judgement and insight intact Musculoskeletal: Rom, muscular strength intact; digits, nails normal Data/ CBC: Lab Results Component Value Date WBC 7.2 01/06/2025 RBC 3.00 (L) 01/06/2025 HGB 9.2 (L) 01/06/2025 HCT 29.4 (L) 01/06/2025 MCV 98 01/06/2025 MCH 30.7 01/06/2025 MCHC 31.3 (L) 01/06/2025 RDW 18.6 (H) 01/06/2025 PLT 250 01/06/2025 BMP: Lab Results Component Value Date NA 139 01/06/2025 K 5.7 (H) 01/06/2025 CL 99 01/06/2025 CO2 30 01/06/2025 BUN 20 01/06/2025 CREATININE 7.40 (H) 01/06/2025 CALCIUM 9.0 01/06/2025 GLUCOSE 83 01/06/2025 ECG 12 lead Sinus tachycardia Possible Left atrial enlargement Rightward axis Borderline ECG When compared with ECG of 09-MAY-2023 17:04, QRS axis Shifted right CT abdomen pelvis wo IV contrast Narrative: STUDY: CT Abdomen and Pelvis without IV Contrast; 01/05/2025, 12:45 PM INDICATION: Upper abdominal pain. COMPARISON: CT CAP 05/09/2023, 03/18/2022, CT AP 03/04/2022. ACCESSION NUMBER(S): [id number] ORDERING CLINICIAN: MEKHI WEEMS TECHNIQUE: CT of the abdomen and pelvis was performed. Contiguous axial images were obtained at 3 mm slice thickness through the abdomen and pelvis. Coronal and sagittal reconstructions at 3 mm slice thickness were performed. No intravenous contrast was administered. Automated mA/kV exposure control was utilized and patient examination was performed in strict accordance with principles of ALARA. FINDINGS: Please note that the evaluation of vessels, lymph nodes and organs is limited without intravenous contrast. LOWER CHEST: Normal heart size. Small to moderate-sized pericardial effusion. Small bilateral pleural effusions greater in size on the right than the left. Interstitial thickening of the lower lobes suggestive of mild pulmonary edema. ABDOMEN: LIVER: Liver is mildly enlarged possibly due to passive congestion. Smooth surface contour. Normal attenuation. BILE DUCTS: No intrahepatic or extrahepatic biliary ductal dilatation. GALLBLADDER: No calcified gallstones. Pericholecystic fluid likely related to the presence of minimal ascites. STOMACH: No abnormalities identified. PANCREAS: No masses or ductal dilatation. SPLEEN: No splenomegaly or focal splenic lesion. ADRENAL GLANDS: No thickening or nodules. KIDNEYS AND URETERS: Kidneys again noted to be small in size indicating chronic parenchymal renal disease. No renal or ureteral calculi. PELVIS: BLADDER: No abnormalities identified. REPRODUCTIVE ORGANS: No abnormalities identified. BOWEL: No abnormalities identified. VESSELS: No abnormalities identified. Abdominal aorta is normal in caliber. PERITONEUM/RETROPERITONEUM/LYMPH NODES: Minimal ascites. No pneumoperitoneum. No lymphadenopathy. ABDOMINAL WALL: No abnormalities identified. SOFT TISSUES: Diffuse edema of the subcutaneous tissues. BONES: No acute fracture or aggressive osseous lesion. Impression: Small to moderate-sized pericardial effusion. Small bilateral pleural effusions greater in size on the right than left. Mild pulmonary edema. Diffuse subcutaneous edema. Trace ascites. Mild hepatomegaly which may be due to passive congestion. Signed by Behzad Chicas MD LFT: Lab Results Component Value Date AST 12 01/05/2025 ALT 24 01/05/2025 ALKPHOS 62 01/05/2025 BILITOT 0.9 01/05/2025 Urinalysis: Lab Results Component Value Date ELOISA 8.0 01/05/2025 PROTUR 300 (3+) (A) 01/05/2025 GLUCOSEU 100 (1+) (A) 01/05/2025 BLOODU 0.06 (1+) (A) 01/05/2025 KETONESU NEGATIVE 01/05/2025 BILIRUBINU NEGATIVE 01/05/2025 NITRITEU NEGATIVE 01/05/2025 LEUKOCYTESU NEGATIVE 01/05/2025 Imaging: ECG 12 lead Sinus tachycardia Possible Left atrial enlargement Rightward axis Borderline ECG When compared with ECG of 09-MAY-2023 17:04, QRS axis Shifted right CT abdomen pelvis wo IV contrast Narrative: STUDY: CT Abdomen and Pelvis without IV Contrast; 01/05/2025, 12:45 PM INDICATION: Upper abdominal pain. COMPARISON: CT CAP 05/09/2023, 03/18/2022, CT AP 03/04/2022. ACCESSION NUMBER(S): [id number] ORDERING CLINICIAN: MEKHI WEEMS TECHNIQUE: CT of the abdomen and pelvis was performed. Contiguous axial images were obtained at 3 mm slice thickness through the abdomen and pelvis. Coronal and sagittal reconstructions at 3 mm slice thickness were performed. No intravenous contrast was administered. Automated mA/kV exposure control was utilized and patient examination was performed in strict accordance with principles of ALARA. FINDINGS: Please note that the evaluation of vessels, lymph nodes and organs is limited without intravenous contrast. LOWER CHEST: Normal heart size. Small to moderate-sized pericardial effusion. Small bilateral pleural effusions greater in size on the right than the left. Interstitial thickening of the lower lobes suggestive of mild pulmonary edema. ABDOMEN: LIVER: Liver is mildly enlarged possibly due to passive congestion. Smooth surface contour. Normal attenuation. BILE DUCTS: No intrahepatic or extrahepatic biliary ductal dilatation. GALLBLADDER: No calcified gallstones. Pericholecystic fluid likely related to the presence of minimal ascites. STOMACH: No abnormalities identified. PANCREAS: No masses or ductal dilatation. SPLEEN: No splenomegaly or focal splenic lesion. ADRENAL GLANDS: No thickening or nodules. KIDNEYS AND URETERS: Kidneys again noted to be small in size indicating chronic parenchymal renal disease. No renal or ureteral calculi. PELVIS: BLADDER: No abnormalities identified. REPRODUCTIVE ORGANS: No abnormalities identified. BOWEL: No abnormalities identified. VESSELS: No abnormalities identified. Abdominal aorta is normal in caliber. PERITONEUM/RETROPERITONEUM/LYMPH NODES: Minimal ascites. No pneumoperitoneum. No lymphadenopathy. ABDOMINAL WALL: No abnormalities identified. SOFT TISSUES: Diffuse edema of the subcutaneous tissues. BONES: No acute fracture or aggressive osseous lesion. Impression: Small to moderate-sized pericardial effusion. Small bilateral pleural effusions greater in size on the right than left. Mild pulmonary edema. Diffuse subcutaneous edema. Trace ascites. Mild hepatomegaly which may be due to passive congestion. Signed by Behzad Chicas MD Assessment/ 24 y.o. 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 Please do not hesitate to call with questions. Severino Pollock MD [1] History reviewed. No pertinent past medical history. [2] Past Surgical History: Procedure Laterality Date FRENULECTOMY, LINGUAL 03/02/2016 Excision Of Lingual Frenum OTHER SURGICAL HISTORY 11/04/2015 Surgery [3] No current facility-administered medications on file prior to encounter. Current Outpatient Medications on File Prior to Encounter Medication Sig Dispense Refill amLODIPine (Norvasc) 5 mg tablet Take 1 tablet (5 mg) by mouth once daily. carvedilol (Coreg) 25 mg tablet Take 1 tablet (25 mg) by mouth 2 times a day. cinacalcet (Sensipar) 30 mg tablet Take 1 tablet (30 mg) by mouth once daily in the evening. Take with meals. RenaPlex-D 800 mcg-12.5 mg -2,000 unit tablet Take 1 tablet by mouth once daily. sevelamer carbonate (Renvela) 800 mg tablet Take 3 tablets (2,400 mg) by mouth 3 times a day before meals. [DISCONTINUED] carvedilol (Coreg) 12.5 mg tablet Take 1 tablet (12.5 mg) by mouth 2 times a day. cyclobenzaprine (Flexeril) 10 mg tablet Take 1 tablet (10 mg) by mouth 3 times a day as needed for muscle spasms for up to 15 doses. (Patient not taking: Reported on 01/05/2025) 15 tablet 0 ondansetron ODT (Zofran-ODT) 4 mg disintegrating tablet Take 1 tablet (4 mg) by mouth every 8 hours if needed for nausea or vomiting. (Patient not taking: Reported on 01/05/2025) 15 tablet 0 [4] No family history on file. documented in this encounter [facility] Work Phone: 01-06-2025 Surgery Postoperative evaluation and management note Notes/Events during Treat Tx ended 1 hour early d/t patient request. AMA signed. Report to Receiving RN: Report To: TASHIA Sarah Time Report Called: [id number] Hand-Off Communication to Receiving RN: Tx tolerated well. HTN, AMA signed d/t eary TX termination Complications During Treatment: Yes, See above Ultrafiltration Treatment: No Medications Administered During Dialysis: Yes, Hydralazine Blood Products Administered During Dialysis: No Labs Sent During Dialysis: No Heparin Drip Rate Changes: No Sending BP: 199/100, 93 Dialysis Catheter Dressing Changed: N/A Significant Events/Interventions: Early Tx termination per patient request. HTN. Provider Contacted/Time/Response/Orders: Dr. Pollock concerning TX ending early HD Orders Followed: Yes Tx Initiated by/Time: 930Shirley RN Tx Terminated by/Time: 1150, TASHIA Watson Fluid Removed: 1L Electronic Signatures: Authored: TASHIA Gu Last Updated: 8:16 AM by MILEY OCONNOR T [facility] Work Phone: 01-06-2025 Evaluation note Report from Sending RN: Report From: TASHIA Sarah Recent Surgery or Procedure: GI Consult for N/V Baseline Level of Consciousness (LOC): A&Ox3 Admission Dx: HTN/Hyperkalemia Precautions/Isolations: None Code Status: Full Code Oxygen Use: No Type: Room Air Diabetic: No Receiving BP: 175/113 Last BP Med Given Day of Dialysis: See EMAR Last Pain Med Given: See EMAR Lab Tests to be Obtained with Dialysis: No Lastest Lab Values: K+: 5.7 Ca+: 9.0 HGB: 9.2 BUN: 20 Creat: 7.4 INR: 1.3 Hep B: Ag-/Ab+(514.7) 01-05-2025 Blood Transfusion to be Given During Dialysis: No Available IV Access: Yes, Saline Locked Dialysis Access: Right AVF Medications to be Administered During Dialysis: No Continuous IV Infusion Running: No Restraints on Currently or in the Last 24 Hours: No Hand-Off Communication from Sending RN: Patient stable for HD Notes/Events during Treat Tx ended 1 hour early d/t patient request. AMA signed. Report to Receiving RN: Report To: TASHIA Sarah Time Report Called: [id number] Hand-Off Communication to Receiving RN: Tx tolerated well. CHASE VALENTE signed d/t eary TX termination Complications During Treatment: Yes, See above Ultrafiltration Treatment: No Medications Administered During Dialysis: Yes, Hydralazine Blood Products Administered During Dialysis: No Labs Sent During Dialysis: No Heparin Drip Rate Changes: No Sending BP: 199/100, 93 Dialysis Catheter Dressing Changed: N/A Significant Events/Interventions: Early Tx termination per patient request. HTN. Provider Contacted/Time/Response/Orders: Dr. Pollock concerning TX ending early HD Orders Followed: Yes Tx Initiated by/Time: [id number] RN Tx Terminated by/Time: 1150Shirley RN Fluid Removed: 1L Electronic Signatures: Authored: TASHIA Gu Last Updated: 8:16 AM by MILEY OCONNOR [facility] Work Phone: 01-05-2025 Plan of care note The patient's goals for the shift include The clinical goals for the shift include Patient will have no complaints of nausea throughout the shift Problem: Nutrition Goal: Nutrient intake appropriate for maintaining nutritional needs Outcome: Progressing Problem: Chronic Conditions and Co-morbidities Goal: Patient's chronic conditions and co-morbidity symptoms are monitored and maintained or improved Outcome: Progressing Problem: Safety - Adult Goal: Free from fall injury Outcome: Progressing Problem: Discharge Planning Goal: Discharge to home or other facility with appropriate resources Outcome: Progressing [facility] Work Phone: 01-05-2025 Surgery Postoperative evaluation and management note Notes/Events during Treatment: HTN Report to Receiving RN: Report To: TASHIA Liu Time Report Called: 2019 Hand-Off Communication to Receiving RN: Tx tolerated well. HTN-asymptomatic Complications During Treatment: Yes, HTN Ultrafiltration Treatment: No Medications Administered During Dialysis: Yes, Coreg, Norvasc, Hydralazine Blood Products Administered During Dialysis: No Labs Sent During Dialysis: No Heparin Drip Rate Changes: No Sending BP: 199/105, 91 Dialysis Catheter Dressing Changed:N/A Significant Events/Interventions: HTN Provider Contacted/Time/Response/Orders: Dr. Zambrano for BP medications d/t hypertension. HD Orders Followed: Yes Tx Initiated by/Time: [id number] OCDT Tx Terminated by/Time: 2008Johnna OCDT Fluid Removed: 3L Electronic Signatures: Authored: TASHIA Gu Last Updated: 3:32 PM by MILEY OCONNOR [facility] Work Phone: 01-05-2025 Evaluation note Report from Sending RN: Report From: TASHIA Pastor Recent Surgery or Procedure: No Baseline Level of Consciousness (LOC): A&Ox3 Admission Dx: N/V, Hyperkalemia, Missed HD Precautions/Isolations: None Code Status: Assume Full Code Oxygen Use: No Type: Room Air Diabetic: No Receiving BP: 186/118, 100 Last BP Med Given Day of Dialysis: See EMAR Last Pain Med Given: See EMAR Lab Tests to be Obtained with Dialysis: No Lastest Lab Values: K+: 5.7 Ca+: 9.8 HGB: 10.2 BUN: 47 Creat: 12.5 INR: 1.3 Hep B: Ag/Ab(No recent results) Labs ordered. Blood Transfusion to be Given During Dialysis: No Available IV Access: Yes, Saline Locked Dialysis Access: Right AVF Medications to be Administered During Dialysis: No Continuous IV Infusion Running: No Restraints on Currently or in the Last 24 Hours: No Hand-Off Communication from Sending RN: Patient stable for HD Notes/Events during Treatment: HTN Report to Receiving RN: Report To: TASHIA Liu Time Report Called: 2019 Hand-Off Communication to Receiving RN: Tx tolerated well. HTN-asymptomatic Complications During Treatment: Yes, HTN Ultrafiltration Treatment: No Medications Administered During Dialysis: Yes, Coreg, Norvasc, Hydralazine Blood Products Administered During Dialysis: No Labs Sent During Dialysis: No Heparin Drip Rate Changes: No Sending BP: 199/105, 91 Dialysis Catheter Dressing Changed:N/A Significant Events/Interventions: HTN Provider Contacted/Time/Response/Orders: Dr. Zambrano for BP medications d/t hypertension. HD Orders Followed: Yes Tx Initiated by/Time: [id number] OCDT Tx Terminated by/Time: 2008Johnna OCDT Fluid Removed: 3L Electronic Signatures: Authored: TASHIA Gu Last Updated: 3:32 PM by MILEY OCONNOR [facility] Work Phone: 01-05-2025 History and physical note Images from the original note were not included. Medical Group History and Physical ASSESSMENT & PLAN: Severe Hyperkalemia ESRD on HD Hx Alport syndrome -K 7.5 on presentation. Received calcium gluconate and hyperkalemia cocktail in ED. Discussed with ED provider. To urgently go to HD from ED prior to arrival to floor. -Nephro consulted for evaluation; recs appreciated -Tele monitoring Hematemesis? Melena? -Patient endorsing bright red emesis and black bowel movements for the past 3-4 days. Hb 10.2, similar to prior values -PPI BID -Will obtain iron studies/continue to trend Hb -GI consulted for eval, recs appreciated. Uncontrolled HTN -SBPs in 180's-190s on presentation. Expect to improve with HD -Will resume home meds as applicable pending verificatoin VTE Prophylaxis: Ambulation encouraged ---Of note, parts of this documentation were completed using the [employer] Dictation system (voice recognition software). There may be spelling and/or grammatical errors that were not corrected prior to final submission.--- Bernardino Zambrano MD HISTORY OF PRESENT ILLNESS: Chief Complaint: Intractable nausea/vomiting History Of Present Illness: Lawson Doyle is a 24 y.o. male with a past medical history including alport syndrome, HTN, and ESRD who presented to hospital due to concerns of intractable nausea and vomiting. Symptoms have been ongoing for the past 2 to 3 days. States he cannot keep any food down. States his emesis is different colors but is noted red emesis in absence of eating any food this color. Also appreciating black bowel movements and diarrhea. Patient denies any lightheadedness or dizziness. Denies any chest pain or difficulty breathing. Denies significant swelling of his lower extremities. The patient is compliant with his hemodialysis and has not missed any recent sessions. His most recent session was on 01/02/2025. Thinks he may have eaten a little bit too much food this weekend but states his potassiums typically run between 5.5-6.5. Further ROS was unremarkable. Review of systems: 10 point review of systems is otherwise negative except as mentioned above. PAST HISTORIES: Past Medical History: He has no past medical history on file. Past Surgical History: He has a past surgical history that includes Other surgical history (11/04/2015) and Frenulectomy, lingual (03/02/2016). Social History: He reports that he has never smoked. He has never used smokeless tobacco. He reports that he does not drink alcohol and does not use drugs. Family History: Family History[1] Allergies: Patient has no known allergies. OBJECTIVE: Physical Exam: General: Ill-appearing adult male in mild distress HEENT: Clear sclera, EOMI, trachea midline, moist mucous membranes Respiratory: Equal Chest Rise, No retractions Cardiovascular: S1 and S2 auscultated, no murmurs clicks or rubs Abdomen: Soft, nontender, nondistended Extremities: No cyanosis or clubbing appreciated Neurological: Spontaneously moves all extremities, no dysarthria, cranial nerves grossly intact Psychiatric: Appropriate mood and affect Skin: Warm, dry Last Recorded Vitals: Vitals: 01/05/25 1136 01/05/25 1233 01/05/25 1245 01/05/25 1345 BP: (!) 188/113 (!) 196/114 (!) 187/112 (!) 194/109 BP Location: Left arm Patient Position: Lying Pulse: (!) 107 (!) 108 100 100 Resp: 17 18 18 18 Temp: TempSrc: SpO2: 94% (!) 92% (!) 92% (!) 92% Weight: Height: Last I/O: No intake/output data recorded. Scheduled Medications Scheduled Medications[2] PRN Medications PRN Medications[3] Continuous Medications Continuous Medications[4] Outpatient Medications: Prior to Admission medications Medication Sig Start Date End Date Taking? Authorizing Provider cyclobenzaprine (Flexeril) 10 mg tablet Take 1 tablet (10 mg) by mouth 3 times a day as needed for muscle spasms for up to 15 doses. 05/09/23 Maria Chamorro DO ondansetron ODT (Zofran-ODT) 4 mg disintegrating tablet Take 1 tablet (4 mg) by mouth every 8 hours if needed for nausea or vomiting. 05/09/23 Maria Chamorro DO LABS AND IMAGING: Labs: Results from last 7 days Lab Units 01/05/25 0854 WBC AUTO x10*3/uL 10.3 RBC AUTO x10*6/uL 3.31* HEMOGLOBIN g/dL 10.2* HEMATOCRIT % 32.3* MCV fL 98 MCH pg 30.8 MCHC g/dL 31.6* RDW % 19.2* PLATELETS AUTO x10*3/uL 306 Results from last 7 days Lab Units 01/05/25 0854 SODIUM mmol/L 137 POTASSIUM mmol/L 7.5* CHLORIDE mmol/L 95* CO2 mmol/L 26 BUN mg/dL 47* CREATININE mg/dL 12.58* GLUCOSE mg/dL 90 PROTEIN TOTAL g/dL 6.7 CALCIUM mg/dL 9.8 BILIRUBIN TOTAL mg/dL 0.9 ALK PHOS U/L 62 AST U/L 12 ALT U/L 24 Imaging: ECG 12 lead Sinus tachycardia Possible Left atrial enlargement Rightward axis Borderline ECG When compared with ECG of 09-MAY-2023 17:04, QRS axis Shifted right CT abdomen pelvis wo IV contrast Narrative: STUDY: CT Abdomen and Pelvis without IV Contrast; 01/05/2025, 12:45 PM INDICATION: Upper abdominal pain. COMPARISON: CT CAP 05/09/2023, 03/18/2022, CT AP 03/04/2022. ACCESSION NUMBER(S): [id number] ORDERING CLINICIAN: MEKHI WEEMS TECHNIQUE: CT of the abdomen and pelvis was performed. Contiguous axial images were obtained at 3 mm slice thickness through the abdomen and pelvis. Coronal and sagittal reconstructions at 3 mm slice thickness were performed. No intravenous contrast was administered. Automated mA/kV exposure control was utilized and patient examination was performed in strict accordance with principles of ALARA. FINDINGS: Please note that the evaluation of vessels, lymph nodes and organs is limited without intravenous contrast. LOWER CHEST: Normal heart size. Small to moderate-sized pericardial effusion. Small bilateral pleural effusions greater in size on the right than the left. Interstitial thickening of the lower lobes suggestive of mild pulmonary edema. ABDOMEN: LIVER: Liver is mildly enlarged possibly due to passive congestion. Smooth surface contour. Normal attenuation. BILE DUCTS: No intrahepatic or extrahepatic biliary ductal dilatation. GALLBLADDER: No calcified gallstones. Pericholecystic fluid likely related to the presence of minimal ascites. STOMACH: No abnormalities identified. PANCREAS: No masses or ductal dilatation. SPLEEN: No splenomegaly or focal splenic lesion. ADRENAL GLANDS: No thickening or nodules. KIDNEYS AND URETERS: Kidneys again noted to be small in size indicating chronic parenchymal renal disease. No renal or ureteral calculi. PELVIS: BLADDER: No abnormalities identified. REPRODUCTIVE ORGANS: No abnormalities identified. BOWEL: No abnormalities identified. VESSELS: No abnormalities identified. Abdominal aorta is normal in caliber. PERITONEUM/RETROPERITONEUM/LYMPH NODES: Minimal ascites. No pneumoperitoneum. No lymphadenopathy. ABDOMINAL WALL: No abnormalities identified. SOFT TISSUES: Diffuse edema of the subcutaneous tissues. BONES: No acute fracture or aggressive osseous lesion. Impression: Small to moderate-sized pericardial effusion. Small bilateral pleural effusions greater in size on the right than left. Mild pulmonary edema. Diffuse subcutaneous edema. Trace ascites. Mild hepatomegaly which may be due to passive congestion. Signed by Behzad Chicas MD [1] No family history on file. [2] pantoprazole, 40 mg, intravenous, Daily [3] [4] [facility] Work Phone: 01-05-2025 History and physical note Images from the original note were not included. Medical Group History and Physical ASSESSMENT & PLAN: Severe Hyperkalemia ESRD on HD Hx Alport syndrome -K 7.5 on presentation. Received calcium gluconate and hyperkalemia cocktail in ED. Discussed with ED provider. To urgently go to HD from ED prior to arrival to floor. -Nephro consulted for evaluation; recs appreciated -Tele monitoring Hematemesis? Melena? -Patient endorsing bright red emesis and black bowel movements for the past 3-4 days. Hb 10.2, similar to prior values -PPI BID -Will obtain iron studies/continue to trend Hb -GI consulted for eval, recs appreciated. Uncontrolled HTN -SBPs in 180's-190s on presentation. Expect to improve with HD -Will resume home meds as applicable pending verificatoin VTE Prophylaxis: Ambulation encouraged ---Of note, parts of this documentation were completed using the [employer] Dictation system (voice recognition software). There may be spelling and/or grammatical errors that were not corrected prior to final submission.--- Bernardino Zambrano MD HISTORY OF PRESENT ILLNESS: Chief Complaint: Intractable nausea/vomiting History Of Present Illness: Lawson Doyle is a 24 y.o. male with a past medical history including alport syndrome, HTN, and ESRD who presented to hospital due to concerns of intractable nausea and vomiting. Symptoms have been ongoing for the past 2 to 3 days. States he cannot keep any food down. States his emesis is different colors but is noted red emesis in absence of eating any food this color. Also appreciating black bowel movements and diarrhea. Patient denies any lightheadedness or dizziness. Denies any chest pain or difficulty breathing. Denies significant swelling of his lower extremities. The patient is compliant with his hemodialysis and has not missed any recent sessions. His most recent session was on 01/02/2025. Thinks he may have eaten a little bit too much food this weekend but states his potassiums typically run between 5.5-6.5. Further ROS was unremarkable. Review of systems: 10 point review of systems is otherwise negative except as mentioned above. PAST HISTORIES: Past Medical History: He has no past medical history on file. Past Surgical History: He has a past surgical history that includes Other surgical history (11/04/2015) and Frenulectomy, lingual (03/02/2016). Social History: He reports that he has never smoked. He has never used smokeless tobacco. He reports that he does not drink alcohol and does not use drugs. Family History: Family History[1] Allergies: Patient has no known allergies. OBJECTIVE: Physical Exam: General: Ill-appearing adult male in mild distress HEENT: Clear sclera, EOMI, trachea midline, moist mucous membranes Respiratory: Equal Chest Rise, No retractions Cardiovascular: S1 and S2 auscultated, no murmurs clicks or rubs Abdomen: Soft, nontender, nondistended Extremities: No cyanosis or clubbing appreciated Neurological: Spontaneously moves all extremities, no dysarthria, cranial nerves grossly intact Psychiatric: Appropriate mood and affect Skin: Warm, dry Last Recorded Vitals: Vitals: 01/05/25 1136 01/05/25 1233 01/05/25 1245 01/05/25 1345 BP: (!) 188/113 (!) 196/114 (!) 187/112 (!) 194/109 BP Location: Left arm Patient Position: Lying Pulse: (!) 107 (!) 108 100 100 Resp: 18 Temp: TempSrc: SpO2: 94% (!) 92% (!) 92% (!) 92% Weight: Height: Last I/O: No intake/output data recorded. Scheduled Medications Scheduled Medications[2] PRN Medications PRN Medications[3] Continuous Medications Continuous Medications[4] Outpatient Medications: Prior to Admission medications Medication Sig Start Date End Date Taking? Authorizing Provider cyclobenzaprine (Flexeril) 10 mg tablet Take 1 tablet (10 mg) by mouth 3 times a day as needed for muscle spasms for up to 15 doses. 05/09/23 Maria Chamorro DO ondansetron ODT (Zofran-ODT) 4 mg disintegrating tablet Take 1 tablet (4 mg) by mouth every 8 hours if needed for nausea or vomiting. 05/09/23 Maria Chamorro DO LABS AND IMAGING: Labs: Results from last 7 days Lab Units 01/05/25 0854 WBC AUTO x10*3/uL 10.3 RBC AUTO x10*6/uL 3.31* HEMOGLOBIN g/dL 10.2* HEMATOCRIT % 32.3* MCV fL 98 MCH pg 30.8 MCHC g/dL 31.6* RDW % 19.2* PLATELETS AUTO x10*3/uL 306 Results from last 7 days Lab Units 01/05/25 0854 SODIUM mmol/L 137 POTASSIUM mmol/L 7.5* CHLORIDE mmol/L 95* CO2 mmol/L 26 BUN mg/dL 47* CREATININE mg/dL 12.58* GLUCOSE mg/dL 90 PROTEIN TOTAL g/dL 6.7 CALCIUM mg/dL 9.8 BILIRUBIN TOTAL mg/dL 0.9 ALK PHOS U/L 62 AST U/L 12 ALT U/L 24 Imaging: ECG 12 lead Sinus tachycardia Possible Left atrial enlargement Rightward axis Borderline ECG When compared with ECG of 09-MAY-2023 17:04, QRS axis Shifted right CT abdomen pelvis wo IV contrast Narrative: STUDY: CT Abdomen and Pelvis without IV Contrast; 01/05/2025, 12:45 PM INDICATION: Upper abdominal pain. COMPARISON: CT CAP 05/09/2023, 03/18/2022, CT AP 03/04/2022. ACCESSION NUMBER(S): [id number] ORDERING CLINICIAN: MEKHI WEEMS TECHNIQUE: CT of the abdomen and pelvis was performed. Contiguous axial images were obtained at 3 mm slice thickness through the abdomen and pelvis. Coronal and sagittal reconstructions at 3 mm slice thickness were performed. No intravenous contrast was administered. Automated mA/kV exposure control was utilized and patient examination was performed in strict accordance with principles of ALARA. FINDINGS: Please note that the evaluation of vessels, lymph nodes and organs is limited without intravenous contrast. LOWER CHEST: Normal heart size. Small to moderate-sized pericardial effusion. Small bilateral pleural effusions greater in size on the right than the left. Interstitial thickening of the lower lobes suggestive of mild pulmonary edema. ABDOMEN: LIVER: Liver is mildly enlarged possibly due to passive congestion. Smooth surface contour. Normal attenuation. BILE DUCTS: No intrahepatic or extrahepatic biliary ductal dilatation. GALLBLADDER: No calcified gallstones. Pericholecystic fluid likely related to the presence of minimal ascites. STOMACH: No abnormalities identified. PANCREAS: No masses or ductal dilatation. SPLEEN: No splenomegaly or focal splenic lesion. ADRENAL GLANDS: No thickening or nodules. KIDNEYS AND URETERS: Kidneys again noted to be small in size indicating chronic parenchymal renal disease. No renal or ureteral calculi. PELVIS: BLADDER: No abnormalities identified. REPRODUCTIVE ORGANS: No abnormalities identified. BOWEL: No abnormalities identified. VESSELS: No abnormalities identified. Abdominal aorta is normal in caliber. PERITONEUM/RETROPERITONEUM/LYMPH NODES: Minimal ascites. No pneumoperitoneum. No lymphadenopathy. ABDOMINAL WALL: No abnormalities identified. SOFT TISSUES: Diffuse edema of the subcutaneous tissues. BONES: No acute fracture or aggressive osseous lesion. Impression: Small to moderate-sized pericardial effusion. Small bilateral pleural effusions greater in size on the right than left. Mild pulmonary edema. Diffuse subcutaneous edema. Trace ascites. Mild hepatomegaly which may be due to passive congestion. Signed by Behzad Chicas MD [1] No family history on file. [2] pantoprazole, 40 mg, intravenous, Daily [3] [4] documented in this encounter [facility] Work Phone: 01-05-2025 Procedure note Associated Ord er(s): Critical Care Procedure Critical Care Performed by: Carlos Hutchison MD Authorized by: Carlos Hutchison MD Critical care provider statement: Critical care time (minutes): 45 Critical care time was exclusive of: Separately billable procedures and treating other patients Critical care was necessary to treat or prevent imminent or life-threatening deterioration of the following conditions: Renal failure and Other (use comment box to enter another option) (Hyperkalemia) Critical care was time spent personally by me on the following activities: Blood draw for specimens, development of treatment plan with patient or surrogate, discussions with primary provider, evaluation of patient's response to treatment, examination of patient, obtaining history from patient or surrogate, ordering and performing treatments and interventions, ordering and review of laboratory studies, ordering and review of radiographic studies, re-evaluation of patient's condition and pulse oximetry Care discussed with: admitting provider Carlos Hutchison MD 01/05/25 1129 [facility] Work Phone: 01-05-2025 Physician Emergency department Note Associated Order(s): ECG 12 lead HPI Chief Complaint Patient presents with Vomiting I have been up all night throwing up." A 24-year-old male patient comes emergency department today with complaints of nausea and vomiting started around 2 PM yesterday. States he has not been able to keep anything down. Denies any associate abdominal pain. Denies any other sick contacts. States he gets chills after he vomits but otherwise denies any fevers or chills. For this purpose he comes in the emergency department today for further evaluation. Otherwise no other complaints present time. Patient History Medical History[1] Surgical History[2] Family History[3] Social History[4] Physical Exam ED Triage Vitals [01/05/25 0828] Temperature Heart Rate Respirations BP 36.6 C (97.9 F) (!) 101 18 (!) 185/122 Pulse Ox Temp Source Heart Rate Source Patient Position 95 % Temporal Monitor Sitting BP Location FiO2 (%) Right arm -- Physical Exam Constitutional: General: He is in acute distress. Appearance: Normal appearance. He is ill-appearing. HENT: Head: Normocephalic and atraumatic. Nose: Nose normal. Eyes: Extraocular Movements: Extraocular movements intact. Conjunctiva/sclera: Conjunctivae normal. Pupils: Pupils are equal, round, and reactive to light. Cardiovascular: Rate and Rhythm: Normal rate and regular rhythm. Pulmonary: Effort: Pulmonary effort is normal. No respiratory distress. Breath sounds: Normal breath sounds. No stridor. No wheezing. Abdominal: Tenderness: There is abdominal tenderness (Epigastric). There is guarding. Musculoskeletal: General: Normal range of motion. Cervical back: Normal range of motion. Skin: General: Skin is warm and dry. Neurological: General: No focal deficit present. Mental Status: He is alert and oriented to person, place, and time. Mental status is at baseline. Psychiatric: Mood and Affect: Mood normal. ED Course & MDM Diagnoses as of 01/05/25 1446 Hyperkalemia ESRD (end stage renal disease) on dialysis (Multi) Nausea and vomiting, unspecified vomiting type No data recorded Medical Decision Making A 24-year-old male patient comes emergency department today with complaints of nausea and vomiting started around 2 PM yesterday. States he has not been able to keep anything down. Denies any associate abdominal pain. Denies any other sick contacts. States he gets chills after he vomits but otherwise denies any fevers or chills. For this purpose he comes in the emergency department today for further evaluation. Otherwise no other complaints present time. Laboratory studies ordered to rule leukocytosis, acute kidney injury, lecture abnormalities. Patient COVID-19, influenza. Minimal IV fluids were ordered as patient is a renal dialysis patient. IV Zofran IV Protonix ordered. Patient negative for influenza, COVID-19, lipase is negative patient potassium 7.5 hyperkalemia order set used for medications to improve patient's potassium levels. Patient would most benefit from dialysis. I did discuss with the patient patient states he lives in [facility] was up visiting this region he supposed to have dialysis today but did not have it as he is not present in [facility]. Patient lactate negative no leukocytosis with left shift. Patient CT of the abdomen pelvis shows no acute intra-abdominal surgical finding but patient does have some pulmonary edema, pleural effusions. Would really benefit from dialysis. As patient does not from the region we will admit patient to the hospital to see if we can get dialysis. I have placed a call with nephrology as well as hospitalist team. Historian the patient Diagnosis: ESRD, hyperkalemia, nausea vomiting I discussed case with Dr. Pollock with nephrology who will place dialysis orders for the patient. Case was also discussed with Dr. Zambrano who agrees admit the patient. We have also contacted dialysis are going to come get the patient prior to going to the floor Labs Reviewed CBC WITH AUTO DIFFERENTIAL - Abnormal Result Value WBC 10.3 nRBC 0.0 RBC 3.31 (*) Hemoglobin 10.2 (*) Hematocrit 32.3 (*) MCV 98 MCH 30.8 MCHC 31.6 (*) RDW 19.2 (*) Platelets 306 Neutrophils % 72.7 Immature Granulocytes %, Automated 0.4 Lymphocytes % 18.0 Monocytes % 4.3 Eosinophils % 4.2 Basophils % 0.4 Neutrophils Absolute 7.49 Immature Granulocytes Absolute, Automated 0.04 Lymphocytes Absolute 1.85 Monocytes Absolute 0.44 Eosinophils Absolute 0.43 Basophils Absolute 0.04 COMPREHENSIVE METABOLIC PANEL - Abnormal Glucose 90 Sodium 137 Potassium 7.5 (*) Chloride 95 (*) Bicarbonate 26 Anion Gap 24 (*) Urea Nitrogen 47 (*) Creatinine 12.58 (*) eGFR 5 (*) Calcium 9.8 Albumin 4.4 Alkaline Phosphatase 62 Total Protein 6.7 AST 12 Bilirubin, Total 0.9 ALT 24 PROTIME-INR - Abnormal Protime 14.2 (*) INR 1.3 (*) LIPASE - Normal Lipase 21 Narrative: Venipuncture immediately after or during the administration of Metamizole may lead to falsely low results. Testing should be performed immediately prior to Metamizole dosing. LACTATE - Normal Lactate 1.4 Narrative: Venipuncture immediately after or during the administration of Metamizole may lead to falsely low results. Testing should be performed immediately prior to Metamizole dosing. SARS-COV-2 AND INFLUENZA A/B PCR - Normal Flu A Result Not Detected Flu B Result Not Detected Coronavirus 2019, PCR Not Detected Narrative: This assay is an FDA-cleared, in vitro diagnostic nucleic acid amplification test for the qualitative detection and differentiation of SARS CoV-2/ Influenza A/B from nasopharyngeal specimens collected from individuals with signs and symptoms of respiratory tract infections, and has been validated for use at [facility]. Negative results do not preclude COVID-19/ Influenza A/B infections and should not be used as the sole basis for diagnosis, treatment, or other management decisions. Testing for SARS CoV-2 is recommended only for patients who meet current clinical and/or epidemiological criteria defined by federal, state, or local public health directives. POCT GLUCOSE - Normal POCT Glucose 75 URINALYSIS WITH REFLEX CULTURE Narrative: The following orders were created for panel order Urinalysis with Reflex Culture. Procedure Abnormality Status --------- ------ Urinalysis with Reflex C...[[id number]] Extra Urine Arana Tube[[id number]] Please view results for these tests on the individual orders. URINALYSIS WITH REFLEX CULTURE EXTRA URINE ARANA TUBE POTASSIUM POCT GLUCOSE METER CT abdomen pelvis wo IV contrast Final Result Small to moderate-sized pericardial effusion. Small bilateral pleural effusions greater in size on the right than left. Mild pulmonary edema. Diffuse subcutaneous edema. Trace ascites. Mild hepatomegaly which may be due to passive congestion. Signed by Behzad Chicas MD Shared MIGUELITO Attestation: I personally saw the patient and made/approved the management plan and take responsibility for the patient management. History: Patient presenting with vomiting. Exam: Mildly tachycardic irregular rhythm cardiac exam with clear breath sounds bilaterally. Abdomen is soft and nontender. Neurological exam is grossly intact. No palpable cords. MDM: Differential Diagnosis: Viral syndrome, gastritis, pancreatitis, colitis Labs Reviewed CBC WITH AUTO DIFFERENTIAL - Abnormal Result Value WBC 10.3 nRBC 0.0 RBC 3.31 (*) Hemoglobin 10.2 (*) Hematocrit 32.3 (*) MCV 98 MCH 30.8 MCHC 31.6 (*) RDW 19.2 (*) Platelets 306 Neutrophils % 72.7 Immature Granulocytes %, Automated 0.4 Lymphocytes % 18.0 Monocytes % 4.3 Eosinophils % 4.2 Basophils % 0.4 Neutrophils Absolute 7.49 Immature Granulocytes Absolute, Automated 0.04 Lymphocytes Absolute 1.85 Monocytes Absolute 0.44 Eosinophils Absolute 0.43 Basophils Absolute 0.04 COMPREHENSIVE METABOLIC PANEL - Abnormal Glucose 90 Sodium 137 Potassium 7.5 (*) Chloride 95 (*) Bicarbonate 26 Anion Gap 24 (*) Urea Nitrogen 47 (*) Creatinine 12.58 (*) eGFR 5 (*) Calcium 9.8 Albumin 4.4 Alkaline Phosphatase 62 Total Protein 6.7 AST 12 Bilirubin, Total 0.9 ALT 24 PROTIME-INR - Abnormal Protime 14.2 (*) INR 1.3 (*) LIPASE - Normal Lipase 21 Narrative: Venipuncture immediately after or during the administration of Metamizole may lead to falsely low results. Testing should be performed immediately prior to Metamizole dosing. LACTATE - Normal Lactate 1.4 Narrative: Venipuncture immediately after or during the administration of Metamizole may lead to falsely low results. Testing should be performed immediately prior to Metamizole dosing. SARS-COV-2 AND INFLUENZA A/B PCR - Normal Flu A Result Not Detected Flu B Result Not Detected Coronavirus 2019, PCR Not Detected Narrative: This assay is an FDA-cleared, in vitro diagnostic nucleic acid amplification test for the qualitative detection and differentiation of SARS CoV-2/ Influenza A/B from nasopharyngeal specimens collected from individuals with signs and symptoms of respiratory tract infections, and has been validated for use at [facility]. Negative results do not preclude COVID-19/ Influenza A/B infections and should not be used as the sole basis for diagnosis, treatment, or other management decisions. Testing for SARS CoV-2 is recommended only for patients who meet current clinical and/or epidemiological criteria defined by federal, state, or local public health directives. POCT GLUCOSE - Normal POCT Glucose 75 URINALYSIS WITH REFLEX CULTURE Narrative: The following orders were created for panel order Urinalysis with Reflex Culture. Procedure Abnormality Status --------- ------ Urinalysis with Reflex C...[[id number]] Extra Urine Arana Tube[[id number]] Please view results for these tests on the individual orders. URINALYSIS WITH REFLEX CULTURE EXTRA URINE ARANA TUBE POTASSIUM POCT GLUCOSE METER CT abdomen pelvis wo IV contrast Final Result Small to moderate-sized pericardial effusion. Small bilateral pleural effusions greater in size on the right than left. Mild pulmonary edema. Diffuse subcutaneous edema. Trace ascites. Mild hepatomegaly which may be due to passive congestion. Signed by MD Carlos Youssef MD Procedure ECG 12 lead Performed by: Mekhi Weems PA-C Authorized by: Carlos Hutchison MD Interpretation: Details: My EKG interpretation Rate: ECG rate: 107 ECG rate assessment: tachycardic Rhythm: Rhythm: sinus tachycardia ST segments: ST segments: Normal T waves: T waves: normal [1] History reviewed. No pertinent past medical history. [2] Past Surgical History: Procedure Laterality Date FRENULECTOMY, LINGUAL 03/02/2016 Excision Of Lingual Frenum OTHER SURGICAL HISTORY 11/04/2015 Surgery [3] No family history on file. [4] Social History Tobacco Use Smoking status: Never Smokeless tobacco: Never Vaping Use Vaping status: Never Used Substance Use Topics Alcohol use: Never Drug use: Never Mekhi Wemes PA-C 01/05/25 1446 Cosigned by Carlos Hutchison MD at 01/05/2025 2:48 PM EDT Associated attestation - Carlos Davis MD - 01/05/2025 2:48 PM EDT Please see my attestation within the MIGUELITO's note. [facility] Work Phone: 01-05-2025 Emergency department Note Associated Order(s): ECG 12 lead HPI Chief Complaint Patient presents with Vomiting I have been up all night throwing up." A 24-year-old male patient comes emergency department today with complaints of nausea and vomiting started around 2 PM yesterday. States he has not been able to keep anything down. Denies any associate abdominal pain. Denies any other sick contacts. States he gets chills after he vomits but otherwise denies any fevers or chills. For this purpose he comes in the emergency department today for further evaluation. Otherwise no other complaints present time. Patient History Medical History[1] Surgical History[2] Family History[3] Social History[4] Physical Exam ED Triage Vitals [01/05/25 0828] Temperature Heart Rate Respirations BP 36.6 C (97.9 F) (!) 101 18 (!) 185/122 Pulse Ox Temp Source Heart Rate Source Patient Position 95 % Temporal Monitor Sitting BP Location FiO2 (%) Right arm -- Physical Exam Constitutional: General: He is in acute distress. Appearance: Normal appearance. He is ill-appearing. HENT: Head: Normocephalic and atraumatic. Nose: Nose normal. Eyes: Extraocular Movements: Extraocular movements intact. Conjunctiva/sclera: Conjunctivae normal. Pupils: Pupils are equal, round, and reactive to light. Cardiovascular: Rate and Rhythm: Normal rate and regular rhythm. Pulmonary: Effort: Pulmonary effort is normal. No respiratory distress. Breath sounds: Normal breath sounds. No stridor. No wheezing. Abdominal: Tenderness: There is abdominal tenderness (Epigastric). There is guarding. Musculoskeletal: General: Normal range of motion. Cervical back: Normal range of motion. Skin: General: Skin is warm and dry. Neurological: General: No focal deficit present. Mental Status: He is alert and oriented to person, place, and time. Mental status is at baseline. Psychiatric: Mood and Affect: Mood normal. ED Course & MDM Diagnoses as of 01/05/25 1446 Hyperkalemia ESRD (end stage renal disease) on dialysis (Multi) Nausea and vomiting, unspecified vomiting type No data recorded Medical Decision Making A 24-year-old male patient comes emergency department today with complaints of nausea and vomiting started around 2 PM yesterday. States he has not been able to keep anything down. Denies any associate abdominal pain. Denies any other sick contacts. States he gets chills after he vomits but otherwise denies any fevers or chills. For this purpose he comes in the emergency department today for further evaluation. Otherwise no other complaints present time. Laboratory studies ordered to rule leukocytosis, acute kidney injury, lecture abnormalities. Patient COVID-19, influenza. Minimal IV fluids were ordered as patient is a renal dialysis patient. IV Zofran IV Protonix ordered. Patient negative for influenza, COVID-19, lipase is negative patient potassium 7.5 hyperkalemia order set used for medications to improve patient's potassium levels. Patient would most benefit from dialysis. I did discuss with the patient patient states he lives in [facility] was up visiting this region he supposed to have dialysis today but did not have it as he is not present in [facility]. Patient lactate negative no leukocytosis with left shift. Patient CT of the abdomen pelvis shows no acute intra-abdominal surgical finding but patient does have some pulmonary edema, pleural effusions. Would really benefit from dialysis. As patient does not from the region we will admit patient to the hospital to see if we can get dialysis. I have placed a call with nephrology as well as hospitalist team. Historian the patient Diagnosis: ESRD, hyperkalemia, nausea vomiting I discussed case with Dr. Pollock with nephrology who will place dialysis orders for the patient. Case was also discussed with Dr. Zambrano who agrees admit the patient. We have also contacted dialysis are going to come get the patient prior to going to the floor Labs Reviewed CBC WITH AUTO DIFFERENTIAL - Abnormal Result Value WBC 10.3 nRBC 0.0 RBC 3.31 (*) Hemoglobin 10.2 (*) Hematocrit 32.3 (*) MCV 98 MCH 30.8 MCHC 31.6 (*) RDW 19.2 (*) Platelets 306 Neutrophils % 72.7 Immature Granulocytes %, Automated 0.4 Lymphocytes % 18.0 Monocytes % 4.3 Eosinophils % 4.2 Basophils % 0.4 Neutrophils Absolute 7.49 Immature Granulocytes Absolute, Automated 0.04 Lymphocytes Absolute 1.85 Monocytes Absolute 0.44 Eosinophils Absolute 0.43 Basophils Absolute 0.04 COMPREHENSIVE METABOLIC PANEL - Abnormal Glucose 90 Sodium 137 Potassium 7.5 (*) Chloride 95 (*) Bicarbonate 26 Anion Gap 24 (*) Urea Nitrogen 47 (*) Creatinine 12.58 (*) eGFR 5 (*) Calcium 9.8 Albumin 4.4 Alkaline Phosphatase 62 Total Protein 6.7 AST 12 Bilirubin, Total 0.9 ALT 24 PROTIME-INR - Abnormal Protime 14.2 (*) INR 1.3 (*) LIPASE - Normal Lipase 21 Narrative: Venipuncture immediately after or during the administration of Metamizole may lead to falsely low results. Testing should be performed immediately prior to Metamizole dosing. LACTATE - Normal Lactate 1.4 Narrative: Venipuncture immediately after or during the administration of Metamizole may lead to falsely low results. Testing should be performed immediately prior to Metamizole dosing. SARS-COV-2 AND INFLUENZA A/B PCR - Normal Flu A Result Not Detected Flu B Result Not Detected Coronavirus 2019, PCR Not Detected Narrative: This assay is an FDA-cleared, in vitro diagnostic nucleic acid amplification test for the qualitative detection and differentiation of SARS CoV-2/ Influenza A/B from nasopharyngeal specimens collected from individuals with signs and symptoms of respiratory tract infections, and has been validated for use at [facility]. Negative results do not preclude COVID-19/ Influenza A/B infections and should not be used as the sole basis for diagnosis, treatment, or other management decisions. Testing for SARS CoV-2 is recommended only for patients who meet current clinical and/or epidemiological criteria defined by federal, state, or local public health directives. POCT GLUCOSE - Normal POCT Glucose 75 URINALYSIS WITH REFLEX CULTURE Narrative: The following orders were created for panel order Urinalysis with Reflex Culture. Procedure Abnormality Status --------- ------ Urinalysis with Reflex C...[[id number]] Extra Urine Arana Tube[[id number]] Please view results for these tests on the individual orders. URINALYSIS WITH REFLEX CULTURE EXTRA URINE ARANA TUBE POTASSIUM POCT GLUCOSE METER CT abdomen pelvis wo IV contrast Final Result Small to moderate-sized pericardial effusion. Small bilateral pleural effusions greater in size on the right than left. Mild pulmonary edema. Diffuse subcutaneous edema. Trace ascites. Mild hepatomegaly which may be due to passive congestion. Signed by Behzad Chicas MD Shared MIGUELITO Attestation: I personally saw the patient and made/approved the management plan and take responsibility for the patient management. History: Patient presenting with vomiting. Exam: Mildly tachycardic irregular rhythm cardiac exam with clear breath sounds bilaterally. Abdomen is soft and nontender. Neurological exam is grossly intact. No palpable cords. MDM: Differential Diagnosis: Viral syndrome, gastritis, pancreatitis, colitis Labs Reviewed CBC WITH AUTO DIFFERENTIAL - Abnormal Result Value WBC 10.3 nRBC 0.0 RBC 3.31 (*) Hemoglobin 10.2 (*) Hematocrit 32.3 (*) MCV 98 MCH 30.8 MCHC 31.6 (*) RDW 19.2 (*) Platelets 306 Neutrophils % 72.7 Immature Granulocytes %, Automated 0.4 Lymphocytes % 18.0 Monocytes % 4.3 Eosinophils % 4.2 Basophils % 0.4 Neutrophils Absolute 7.49 Immature Granulocytes Absolute, Automated 0.04 Lymphocytes Absolute 1.85 Monocytes Absolute 0.44 Eosinophils Absolute 0.43 Basophils Absolute 0.04 COMPREHENSIVE METABOLIC PANEL - Abnormal Glucose 90 Sodium 137 Potassium 7.5 (*) Chloride 95 (*) Bicarbonate 26 Anion Gap 24 (*) Urea Nitrogen 47 (*) Creatinine 12.58 (*) eGFR 5 (*) Calcium 9.8 Albumin 4.4 Alkaline Phosphatase 62 Total Protein 6.7 AST 12 Bilirubin, Total 0.9 ALT 24 PROTIME-INR - Abnormal Protime 14.2 (*) INR 1.3 (*) LIPASE - Normal Lipase 21 Narrative: Venipuncture immediately after or during the administration of Metamizole may lead to falsely low results. Testing should be performed immediately prior to Metamizole dosing. LACTATE - Normal Lactate 1.4 Narrative: Venipuncture immediately after or during the administration of Metamizole may lead to falsely low results. Testing should be performed immediately prior to Metamizole dosing. SARS-COV-2 AND INFLUENZA A/B PCR - Normal Flu A Result Not Detected Flu B Result Not Detected Coronavirus 2019, PCR Not Detected Narrative: This assay is an FDA-cleared, in vitro diagnostic nucleic acid amplification test for the qualitative detection and differentiation of SARS CoV-2/ Influenza A/B from nasopharyngeal specimens collected from individuals with signs and symptoms of respiratory tract infections, and has been validated for use at [facility]. Negative results do not preclude COVID-19/ Influenza A/B infections and should not be used as the sole basis for diagnosis, treatment, or other management decisions. Testing for SARS CoV-2 is recommended only for patients who meet current clinical and/or epidemiological criteria defined by federal, state, or local public health directives. POCT GLUCOSE - Normal POCT Glucose 75 URINALYSIS WITH REFLEX CULTURE Narrative: The following orders were created for panel order Urinalysis with Reflex Culture. Procedure Abnormality Status --------- ------ Urinalysis with Reflex C...[[id number]] Extra Urine Arana Tube[[id number]] Please view results for these tests on the individual orders. URINALYSIS WITH REFLEX CULTURE EXTRA URINE ARANA TUBE POTASSIUM POCT GLUCOSE METER CT abdomen pelvis wo IV contrast Final Result Small to moderate-sized pericardial effusion. Small bilateral pleural effusions greater in size on the right than left. Mild pulmonary edema. Diffuse subcutaneous edema. Trace ascites. Mild hepatomegaly which may be due to passive congestion. Signed by MD Carlos Youssef MD Procedure ECG 12 lead Performed by: Mekhi Weems PA-C Authorized by: Carlos Hutchison MD Interpretation: Details: My EKG interpretation Rate: ECG rate: 107 ECG rate assessment: tachycardic Rhythm: Rhythm: sinus tachycardia ST segments: ST segments: Normal T waves: T waves: normal [1] History reviewed. No pertinent past medical history. [2] Past Surgical History: Procedure Laterality Date FRENULECTOMY, LINGUAL 03/02/2016 Excision Of Lingual Frenum OTHER SURGICAL HISTORY 11/04/2015 Surgery [3] No family history on file. [4] Social History Tobacco Use Smoking status: Never Smokeless tobacco: Never Vaping Use Vaping status: Never Used Substance Use Topics Alcohol use: Never Drug use: Never Mekhi Weems PA-C 01/05/25 1446 Cosigned by Carlos Hutchison MD at 01/05/2025 2:48 PM EDT Associated attestation - Carlos Davis MD - 01/05/2025 2:48 PM EDT Please see my attestation within the MIGUELITO's note. documented in this encounter [facility] Work Phone: 10-14-2024 Consult note [facility] 10-14-2024 Hospital Discharg e instructions Additional Instructions Date of Discharge: 10/14/24 [facility] Work Phone: 10-14-2024 Discharge summary [facility] 10-14-2024 Note [facility] Medical Records Department [address] [place] [address] Discharge Summary 10/14/24 1242 MR#: [id number] Acct: [id number] Name: RUBENSLAWSON BLAKELY Rep #: [id number] : 2000 From: Bing Birmingham DO PCP: Care Physician,No Primary Status:ADM KEYANNA Location: [place] [address] Providers Date of Admission: 10/13/24 Date of Discharge: 10/14/24 Primary Care Physician: No Primary Care Phys Consultations 10/13/24 13:49 Consult: Nephrology Routine Consulting Provider: Windy Higuera Reason for Consult: Dialysis EMERGENT Consult: No MD Notified: Yes Date Notified: 10/13/24 Time Notified: 12:22 Method of Notification: ED Physician Initiated Reason For Visit: VOLUME OVERLOAD SECONDARY TO DECOMPENSATED HEART Diagnosis Discharge Diagnosis (1) ESRD (end stage renal disease): Status: Acute Code(s): N18.6 - End stage renal disease (2) Hyperkalemia: Status: Acute Code(s): E87.5 - Hyperkalemia (3) Hypoxia: Status: Acute Code(s): R09.02 - Hypoxemia (4) Hypertensive emergency: Status: Acute Code(s): I16.1 - Hypertensive emergency Medications at Discharge Home Medications cinacalcet 30 mg tablet 30 mg PO QPM 02/11/24 losartan 100 mg tablet 100 mg PO DAILY 02/11/24 sevelamer carbonate 800 mg tablet 800 mg PO TID 02/11/24 vit B,C-folic ac 800 mcg-zinc 12.5 mg-selen-D3 2,000 unit-vit E tablet (RenaPlex-D) 1 tab PO DAILY 02/11/24 albuterol sulfate 90 mcg/actuation aerosol inhaler (Ventolin HFA) 1 - 2 puff inhalation Q4H PRN PRN Wheezing #1 inh 10/03/24 lanthanum 1,000 mg chewable tablet 1,000 mg PO TID 10/03/24 amlodipine 5 mg tablet 5 mg PO DAILY #30 tabs 10/14/24 carvedilol 25 mg tablet 25 mg PO BIDCM #60 tabs 10/14/24 Hospital Course Operations None Procedures 2-D Echocardiogram, Dialysis and - (Chest x-ray) Summary of Care Provided Minutes Spent on Discharge: 39 Hospital Course: LAWSON DOYLE, is a 24 M who presented to the emergency department at [facility] on 10/05/2024 complaining of shortness of breath. Patient has history of Alport syndrome and has end- stage renal disease currently on dialysis. He started dialysis about 2 years ago and up until last couple months he was tolerating dialysis well. He states currently he is getting nauseated at the end of his sessions. His last dialysis was Sunday and he ran all the last 10 minutes. He was seen in the emergency department on 10/03/2024 and diagnosed with bronchitis. At that time he was given a Z-Selwyn, albuterol, and a prednisone taper. He states he still has a cough. He said no fever or chills. His white count and differential was normal been as it is now. He states that his blood pressure is always fairly elevated despite compliance with his home blood pressure medicines. He states he is symptomatic if his blood pressure starts to drop below 130 systolic. He follows with Dr. Higuera as an outpatient. Vital signs on presentation showed temperature 98.7, heart rate 110, blood pressure 191/131, respiratory rate 16-23 and pulse ox was 93 to 98% on room air at rest however he desatted with exertion into the low 80s. Given that exertional desat admission was felt to be needed as he was not able to have outpatient dialysis today and would have to defer to tomorrow. CBC shows a chronic stable anemia but was otherwise unremarkable with a normal white count and differential. His chemistry panel showed markedly elevated anion gap at 19 BUN of 38 and a serum creatinine of 12.50. BNP was obtained and was 44,433. CXR is consistent with volume overload. The case was discussed with nephrology who agreed to urgent dialysis on the day of presentation to help with his volume overload. I highly suspect that his blood pressure caused a stiffened ventricle which resulted in diastolic heart failure as etiology for his volume status as he was only about 1.6 kg above his dry weight. We were able to bring his blood pressure down and get him dialyzed with significant help with his exertional hypoxia. Ambulatory pulse ox was done on the day of discharge and oxygen saturations were at 97% with exertion on room air. With regards to his blood pressure we did increase his carvedilol from 12.5 mg p.o. twice daily to 25 mg p.o. twice daily and added low-dose amlodipine 5 mg daily. The patient did indicate that he does tend to get symptomatic if his blood pressures drop below 130 systolic so right now the goal for him will be between 140 and 160 and have him follow-up as an outpatient with nephrology and they can slowly lower his blood pressure further with additional medication if needed. Blood pressure at the time of discharge is 148/63. We did obtain an echocardiogram due to his markedly elevated BNP and his symptoms on presentation. Echo showed an EF of 50% with mild concentric LVH and global longitudinal strain at 15 (more content not included)... [facility] 10-13-2024 History and physi gurmeet note Note Date/Time October 13, 2024 4:51pm [facility] Medical Records Department [address] [place] [address] H&P Exam - Hospitalist 10/13/24 1220 MR#: [id number] Acct: [id number] Name: LAWSON DOYLE Rep #:[id number] : 2000 From: Bing Birmingham DO PCP: Care Physician,No Primary Status :ADM KEYANNA Location: [place] [address] HPI - General General Date of Admission: 10/13/24 Date of Service: 10/13/24 Chief Complaint: Shortness of breath HPI Narrative LAWSON DOYLE, is a 24 M who presented to the emergency department at [facility] on 10/05/2024 complaining of shortness of breath. Patient hashistory of Alport syndrome and has end-stage renal disease currently on dialysis. He started dialysis about 2 years ago and up until last couple monthshe was tolerating dialysis well. He states currently he is getting nauseated atthe end of his sessions. His last dialysis was Sunday and he ran all the last 10 minutes. He was seen in the emergency department on 10/03/2024 and diagnosed with bronchitis. At that time he was given a Z-Selwyn, albuterol, and a prednisonetaper. He states he still has a cough. He said no fever or chills. His white count and differential was normal been as it is now. He states that his blood pressure is always fairly elevated despite compliance with his home blood pressure medicines. He states he is symptomatic if his blood pressure starts todrop below 130 systolic. He follows with Dr. Higuera as an outpatient. Vital signs on presentation showed temperature 98.7, heart rate 110, blood pressure 191/131, respiratory rate 16-23 and pulse ox was 93 to 98% on room air at rest however he desatted with exertion into the low 80s. Given that exertional desat admission was felt to be needed as he was not able to have outpatient dialysis today and would have to defer to tomorrow. CBC shows a chronic stable anemia but was otherwise unremarkable with a normal white count and differential. His chemistry panel showed markedly elevated anion gap at 19 BUN of 38 and a serum creatinine of 12.50. BNP was obtained and was 44,433. CXRis consistent with volume overload. Case was discussed by ED with Nephrology and the plan is for urgent HD today. [facility] Medical History (Updated 10/13/24 @ 16:[address] Bing Birmingham DO) Chronic anemia AV fistula Kidney disease Former smoker Hypertension Dialysis patient Arteriovenous fistula of right upper extremity Alports syndrome Home Medications ?Medication ?Instructions ?Recorded ?Last Taken ?Type carvedilol 12.5 mg tablet 12.5 mg PO BID 02/11/2409/17 History cinacalcet 30 mg tablet 30 mg PO QPM 02/11/24 Unknow n History losartan 100 mg tablet 100 mg PO DAILY 02/11/24 History sevelamer carbonate 800 mg tablet 800 mg PO TID 10/12/24 History vit B,C-folic ac 800 mcg-zinc 12.5 1 tab PO DAILY 01/1810/12/24 History mg-selen-D3 2,000 unit-vit E tablet (RenaPlex-D) albuterol sulfate 90 mcg/actuation 1 - 2 puff inhalati on Q4H PRN PRN 10/03/24 Unknown Rx aerosol inhaler (Ventolin HFA) Wheezing #1 inh lanthanum 1,000 mg chewable tablet 1,000 mg PO TID 10/12/24 History Allergy/AdvReac Type Severity Reaction Status Date / Time No Known Allergies Allergy Verified 10/13/24 08:14 Family History no significant family his no significant family history Surgical History no surgical history no surgical history Social History (Updated 10/13/24 @ 16:[address] Bing Birmingham, DO) household members: family housing: house Smoking Status: Former smoker alcohol intake: never substance use type: does not use ROS Constitutional Constitutional: Denies anorexia, change in weight, chills, fatigue, fever(s), malaise, night sweats, weakness or other Eyes Eyes: Denies blurry vision, change in eye color, change in vision, discharge from eye(s), double vision, erythema, eye pain, loss of vision or other ENT HEENT: Denies abnormal hearing, dysphagia, ear pain, epistaxis, headache(s), hearing loss, nasal congestion, nasal discharge, post nasal drip, sinus pressure, sore throat or other Cardiovascular Cardiovascular: Denies chest pain, claudication, dyspnea on exertion, edema, lightheadedness, orthopnea, palpitations, paroxysmal nocturnal dyspnea, rapid heart rate, syncope or other Respiratory/Chest Respiratory/Chest: Reports cough, dyspnea, productive cough, shortness of breathat rest and shortness of breath with exertion Gastrointestinal Gastrointestinal: Reports nausea; Denies abdominal pain, coffee ground emesis, constipation, diarrhea, dyspepsia, hematemesis, hematochezia, loose stools, melena, vomiting or other Genitourinary Genitourinary: Denies burning urination, difficulty urinating, dysuria, hematuria, nocturia, urinary frequency, urinary hesitancy, urinary incontinence,urinary urgency or other Musculoskeletal Musculoskeletal: Denies arthralgias, back pain, joint pain, joint stiffness, joint swelling, myalgias, neck pain or other Neurologic Neurologic: Denies abnormal gait, abnormal speech, confusion, disequilibrium, dizziness, focal weakness, headache(s), numbness, paresthesias, seizure-like activity, seizures, syncope, tingling, tremor(s) or other Psychiatric Psychiatric: Denies anxiety, depression, homicidal ideation, suicidal ideation or other Endocrine Endocrinology: Denies change in body appearance, cold intolerance, excessive sweating, heat intolerance, polydipsia, polyuria or other Hematologic/Lymphatic Hematologic/Lymphatic: Reports anemia; Denies easy bleeding, easy bruising, lymphadenopathy or other Allergic/Immunologic Allergic/Immunologic: Denies rhinitis, hives, eczemia, asthma or other Vital Signs Vital Signs Vital Signs: 10/13/24 08:14 10/13/24 08:16 10/13/24 08:32 Temperature 98.7 F 98.7 F Temperature Source Oral Temporal Pulse Rate 22 L 110 H Respiratory Rate 117 H 16 Respiratory Effort Short of Breath Respiratory Depth Shallow Blood Pressure 200/134 H 191/131 H Blood Pressure Mean 156 151 Pulse Ox 95 98 Oxygen Delivery Method Room Air Room Air Room Air 10/13/24 09:16 10/13/24 10:14 10/13/24 12:00 Temperature 98.4 F Temperature Source Oral Pulse Rate 98 100 101 H Respiratory Rate 18 23 H 21 H Respiratory Effort Respiratory Depth Blood Pressure 166/89 H 161/122 H 166/111 H Blood Pressure Mean 114 135 129 Pulse Ox 96 93 100 Oxygen Delivery Method Room Air Room Air Room Air Weight Weight: 80.5 kg Body Mass Index (BMI) 25.4 Physical Exam Const alert, oriented x3, no apparent distress, average body habitus and well nourished; Negative for healthy appearing Constitutional Narrative: Young, white male, sitting up in bed on dialysis, dialysis nurse at bedside, floor nurse at bedside, patient appears comfortable currently, does not appear toxic General Appearance: cooperative HEENT normocephalic, head/scalp atraumatic and moist oral mucous membranes HEENT Narrative: Mallampati 2, no thrush Eyes Eyes Narrative: Mildly pale conjunctiva bilaterally, no scleral icterus Neck supple Neck Narrative: Trachea midline Resp no retractions, no use of accessory muscles and No clear to auscultation bilaterally Resp Narrative: Mild tachypnea, bibasilar crackles Auscultation: crackles; Negative for rhonchi or wheezes Cardio regular rhythm, S1 normal heart sound, S2 normal heart sound, no murmurs, no ruband no clicks; Negative for no gallops Cardio Narrative: Tachycardia, S4 gallop GI normal to inspection, nondistended, normoactive bowel sounds, soft to palpation and non-tender Extremity no clubbing, cyanosis or edema Extremity Narrative: Fistula currently accessed on HD Neuro oriented x3, moves all extremities and no focal motor deficits Speech: speech normal Psych Psych Narrative: Affect is slightly flat but appropriate for current condition, patient makes good eye contact and interacts appropriately Results Lab / Micro Data 10/13/24 08:50 10/13/24 08:50 Labs: Laboratory Results - last 24 hr 10/13/24 08:50: WBC 8.4, RBC 2.94 L, Hgb 9.4 L, Hct 29.2 L, MCV 99.3 H, MCH 32.0, MCHC 32.2, RDW Std Deviation 58.7 H, RDW Coeff of Mono 16.3 H, Plt Count 252, MPV 9.3, Immature Gran % (Auto) 0.400, Neut % (Auto) 67.9, Lymph % (Auto) 20.8, Kent % (Auto) 5.8, Eos % (Auto) 4.9, Baso % (Auto) 0.2, Absolute Neuts (auto) 5.7, Absolute Lymphs (auto) 1.75, Nucleated RBC % 0, Sodium 140, Potassium 5.0, Chloride 96 L, Carbon Dioxide 24.4, Anion Gap 19 H, BUN 38 H, Creatinine 12.50 H*, Estim Creat Clear Calc 9.33 L*, Est GFR (MDRD) Non-Af 5 L, BUN/Creatinine Ratio 3.0 L, Glucose 98, Calcium 9.9, [place] [address] H Imaging Radiology Impression Chest X-Ray 10/13/24 08:32 IMPRESSION: Borderline cardiomegaly. Mild degree of vascular congestion and CHF. Reading Location: [facility] Assessment & Plan Assessment/Plan (1) Hypoxia: (2) Elevated brain natriuretic peptide (BNP) level: PLAN: Plan Shortness of breath/exertional hypoxia secondary to acute decompensated heart failure - Marked BNP elevation at 44,433 - Urgent dialysis for management of volume - Check echocardiogram - Currently requiring 2 L and patient is not oxygen dependent at home -Will need ambulatory pulse ox prior to discharge - Wean oxygen as able - Suspect markedly elevated blood pressures may play into this as well - Patient was only about 1.2 to 1.3 kg over his dry weight per discussion with nephrology nurse - Nephrology consult Elevated BNP - Secondary to volume overload - Check echocardiogram - Dialysis for fluid removal - Patient with also decreased BNP clearance due to abnormal renal function Elevated anion gap - Secondary to renal dysfunction - Should improve with dialysis - Bicarb is currently within normal range Cough -Etiology unclear -initially dx with bronchitis and was given Uncontrolled HTN - Continue but increase Coreg to 25 mg BID from 12.5 BID - Continue Losartan 100 mg - PRN Hydralazine for SBP >160 Chronic anemia secondary to chronic renal disease - Stable and at baseline ESRD 2/2 Alports Syndrome - HD per nephro - continue cinacalcet - continue Lanthanum - Continue Sevelamer H/O Tobacco abuse -continue cessation DVT prophylaxis -heparin 5000 mg BID Code Status -Full Code Charges/Coding Visit Charges Inpatient E&M: 10221 Init Hosp L2 10/13/24 1651 <Electronically signed by Bing Birmingham DO> Cosigner Signature (if applicable): CC: Dr. Bing Birmingham DO; No Primary Care Physician~ Signed [facility] Work Phone: [phone] Discharge summary Author Arley Kirby [facility] Note Date/Time October 13, 2024 4:36 pm [facility] Medical Records Department [address] [place] [address] [place] [address] Emergency Department Summary 10/13/24 MR#: [id number] Acct: [id number] Name: LAWSON DOYLE Rep #:[id number] : 2000 From: Arley Chavez PCP: Care Physician,No Primary Status :ADM KEYANNA Location: [address] History of Present Illness Chief Complaint: Shortness of Breath Informant: patient Onset/Context/Timing Onset: Days (10) Context: gradual Timing: Continuous Quality: Positive for Dyspnea on exertion Worsened by: Exertion Relieved by: Rest Associated Symptoms cough; Negative for rhinorrhea, post nasal drip, ear pain, fever, sore throat, chills, clear sputum, white sputum, yellow sputum or green sputum Chest Pain: Positive for Sharp (Left lower parasternal area) Narrative Narrative: Patient presents with shortness of breath that has been constant for the past 10days. Patient was seen here at that time and was diagnosed with pneumonia. Patient states she was put on a course of steroids, and inhaler, and "another medication". Patient states he completed his course of steroids. Patient also states he finished the other medication. Patient admits to a cough. Patient states he is coughing up some orange sputum. Patient denies any fevers or chills. Patient admits to some pain over his left parasternal area. Patient describes it as sharp. Patient denies any nausea or vomiting. Patient denies any fevers or chills. Patient states he does dialysis on Sunday, Sunday, andSunday. Patient did not go to dialysis today because he felt more short of breath. Patient states his breathing is worse with any exertion. Patient states he has difficulty going up steps. Patient has not taken any of his medications today. Patient states he normally takes his blood pressure medicines prior to going to dialysis. PE Risk Factors: Negative for Cancer, OCP + Smoking + > 35, Prior DVT or PE, Recent immobilization, Recent surgery or Recent travel [facility] Medical History (Updated 10/13/24 @ 12:[address] Arley Kirby, ) Hypertension Dialysis patient Arteriovenous fistula of right upper extremity Alports syndrome Home Medications ?Medication ?Instructions ?Recorded ?Last Taken ?Type carvedilol 12.5 mg tablet 12.5 mg PO BID 02/11/2409/17 History cinacalcet 30 mg tablet 30 mg PO QPM 02/11/24 Unknow n History losartan 100 mg tablet 100 mg PO DAILY 02/11/24 History sevelamer carbonate 800 mg tablet 800 mg PO TID 10/12/24 History vit B,C-folic ac 800 mcg-zinc 12.5 1 tab PO DAILY 01/1810/12/24 History mg-selen-D3 2,000 unit-vit E tablet (RenaPlex-D) albuterol sulfate 90 mcg/actuation 1 - 2 puff inhalati on Q4H PRN PRN 10/03/24 Unknown Rx aerosol inhaler (Ventolin HFA) Wheezing #1 inh lanthanum 1,000 mg chewable tablet 1,000 mg PO TID 10/12/24 History Allergy/AdvReac Type Severity Reaction Status Date / Time No Known Allergies Allergy Verified 10/13/24 08:14 Social History Smoking Status: Former smoker ROS ROS ED Constitutional Constitutional ED: Denies chills or fever(s) Eyes Eyes: Denies blurry vision or change in vision ENT ENT ED: Denies rhinorrhea or sore throat Cardiovascular Cardiovascular: Reports chest pain; Denies palpitations Respiratory/Chest Respiratory/Chest: Reports cough and dyspnea Gastrointestinal Gastrointestinal: Reports abdominal pain, nausea and vomiting Genitourinary Genitourinary ED: Denies dysuria or hematuria Musculoskeletal Musculoskeletal: Denies back pain or neck pain Integumentary Denies abscess or rash Neurologic Neurologic: Denies headache(s) or weakness Allergic/Immunologic Allergic/Immunologic ED: Denies mouth swelling or urticaria EXAM Physical Exam Const Vital Signs: 10/13/24 08:14 10/13/24 08:16 10/13/24 08:32 Temperature 98.7 F 98.7 F Temperature Source Oral Temporal Pulse Rate 22 L 110 H Respiratory Rate 117 H 16 Respiratory Effort Short of Breath Respiratory Depth Shallow Blood Pressure 200/134 H 191/131 H Blood Pressure Mean 156 151 Pulse Ox 95 98 Oxygen Delivery Method Room Air Room Air Room Air 10/13/24 09:16 10/13/24 10:14 10/13/24 12:00 Temperature 98.4 F Temperature Source Oral Pulse Rate 98 100 101 H Respiratory Rate 18 23 H 21 H Respiratory Effort Respiratory Depth Blood Pressure 166/89 H 161/122 H 166/111 H Blood Pressure Mean 114 135 129 Pulse Ox 96 93 100 Oxygen Delivery Method Room Air Room Air Room Air Positive well nourished and well developed General Appearance ED: well developed and NAD HEENT Reports moist mucous membranes atraumatic Neck supple and no JVD Resp normal respiratory effort and clear to auscultation bilaterally Cardio regular rate and regular rhythm GI non-distended Palpation: soft and tender epigastric and LUQ Neuro oriented x3, CN's II-XII intact bilaterally and no sensory deficits noted [place] Coma Scale: document GCS findings Spontaneous Obeys Commands Oriented 15 Sensorium / Orientation: alert Motor Exam: strength 5/5 throughout Psych mental status grossly normal MDM MDM MDM Narrative Medical decision making narrative: Differential diagnosis includes congestive heart failure, pneumonia, bronchitis,acute on chronic kidney disease, electrolyte abnormality, hypertensive urgency, and anxiety. EKG will be obtained to assess for cardiac dysrhythmia and cardiacischemia. Chest x-ray will be obtained to assess for pneumonia and bronchitis. CBC will be obtained to assess for leukocytosis and anemia. Basic metabolic profile will be obtained to assess for electrolyte abnormality and renal function. BNP will be obtained to assess for congestive heart failure. History & Record Review Additional record(s) reviewed:: Prior ED visit and Prior labs Lab Data Attestation: I reviewed the patient's lab results. Lab results narrative: CBC was reviewed. There is a mild anemia with a hemoglobin of 5.4 and hematocrit of 29.2. The remainder is within normal limits. Basic metabolic profile was reviewed. BUN was 38 and creatinine was 12.5. These are improved from previous result. CO2 was normal at 24.4 but anion gap was slightly elevated at 19. [place] [address]. Labs: Laboratory Results - last 24 hr 10/13/24 08:50 WBC 8.4 RBC 2.94 L Hgb 9.4 L Hct 29.2 L MCV 99.3 H MCH 32.0 MCHC 32.2 RDW Std Deviation 58.7 H RDW Coeff of Mono 16.3 H Plt Count 252 MPV 9.3 Immature Gran % (Auto) 0.400 Neut % (Auto) 67.9 Lymph % (Auto) 20.8 Kent % (Auto) 5.8 Eos % (Auto) 4.9 Baso % (Auto) 0.2 Absolute Neuts (auto) 5.7 Absolute Lymphs (auto) 1.75 Nucleated RBC % 0 Sodium 140 Potassium 5.0 Chloride 96 L Carbon Dioxide 24.4 Anion Gap 19 H BUN 38 H Creatinine 12.50 H* Estim Creat Clear Calc 9.33 L* Est GFR (MDRD) Non-Af 5 L BUN/Creatinine Ratio 3.0 L Glucose 98 Calcium 9.9 [place] [address] H Radiography Chest X-Ray - ED: 2 View, Read by ED Physician, Read by Radiologist, Cardiomegaly (Borderline) and - (Mild vascular congestion) Diagnostic Testing: Clinical Impression(s) from Imaging Studies Chest X-Ray 10/13/24 08:32 IMPRESSION: Borderline cardiomegaly. Mild degree of vascular congestion and CHF. Reading Location: [facility] and lateral chest x-ray was obtained. There are 2 views. On my independent interpretation, lung olmedo show mild vascular congestion. There is borderline cardiomegaly. Bony thorax is normal. There is no acute process noted. Radiologist also interpreted the x-ray and agrees. EKG Initial EKG: Attestation: I personally reviewed and interpreted this EKG as follows: Interpretation: Sinus Rhythm (99) and No Acute Injury Pattern Comments: EKG was obtained. On my independent interpretation, it showed anormal sinus rhythm with a rate of 99. TN interval, QRS interval, and QTc intervals were all normal. [place] was normal. There are no acute ST or T wave changes. Prior EKG tracings: available for review Prior: Unchanged (10/03/2024) Management Discussion w/another healthcare provider: Hospitalist (Dr. Birmingham) Treatment and Re-Evaluation :: Patient was given a dose of labetalol here. Patient was also given his morning dose of losartan. Patient's blood pressure improved to 161/122. Patient was resting comfortably. Patient was ambulated in the emergency department on room air. Patient's oxygen saturation dropped to 85% with ambulation. Patient was advised of his findings. Case was discussed with rug hooker hand who is covering for Dr. Higuera. He contacted the nephrology nurse practitioner who was in to evaluate the patient. She states that if the patient were to be admitted, dialysis would be able to be done today. But if the patient were to be discharged, he would have his dialysis done at the dialysis center tomorrow. With the patient's oxygen saturation dropping with ambulation, I did recommend admission to the hospital. Case was discussed with the hospitalist. She will admit the patient for observation. Patient is agreeable with this. Patient understood and was agreeable with the plan. All questions were answered. Discharge Plan Dx/Rx/DC Orders Clinical Impression: Acute kidney injury superimposed on chronic kidney disease, Hypertension, Hypoxia Disposition Disposition: Acute Care Hospital [facility] What to do if you have Problems For any increased pain, shortness of breath, bleeding, nausea or vomiting, chestpain, or any unexpected problems, contact your Primary Care Provider. Call [facility] ([phone]) or report to the closest Emergency Room. Call 911 if necessary. 10/13/24 1636 <Electronically signed by Arley Kirby DO> Cosigner Signature (if applicable): CC: No Primary Care Physician ~ Signed [facility] Work Phone: [phone] 211-971607-28-2025 History and physical note [facility] Medical Records Department [address] [place] [address] H&P Exam - Hospitalist 10/13/24 1220 MR#: [id number] Acct: [id number] Name: LAWSON DOYLE Rep #:[id number] : 2000 From: Bing Birmingham DO PCP: Care Physician,No Primary Status :ADM KEYANNA Location: [place] [address] HPI - General General Date of Admission: 10/13/24 Date of Service: 10/13/24 Chief Complaint: Shortness of breath HPI Narrative LAWSON DOYLE, is a 24 M who presented to the emergency department at [facility] on10/05/2024 complaining of shortness of breath. Patient hashistory of Alport syndrome and has end-stage renal disease currently on dialysis. He started dialysis about 2 years ago and up until last couple monthshe was tolerating dialysis well. He states currently he is getting nauseated atthe end of his sessions. His last dialysis was Sunday and he ran all the last 10 minutes. He was seen in the emergency department on 10/03/2024 and diagnosed with bronchitis. At that time he was given a Z-Selwyn, albuterol, and a prednisonetaper. He states he still has a cough. He said no fever or chills. His whitecount and differential was normal been as it is now. He states that his blood pressure is always fairly elevated despite compliance with his home blood pressure medicines. He states he is symptomaticif his blood pressure starts todrop below 130 systolic. He follows with Dr. Higuera as an outpatient. Vital signs on presentation showed temperature 98.7, heart rate 110, blood pressure 191/131, respiratory rate 16-23 and pulse ox was 93 to 98% on room air at rest however he desatted with exertion into the low 80s. Given that exertional desat admission was felt to be needed as he was not able to have outpatient dialysis today and would have to defer to tomorrow. CBC shows a chronic stable anemia but was otherwise unremarkable with a normal white count and differential. His chemistry panel showed markedly elevated anion gap at 19 BUN of 38 and a serum creatinine of 12.50. BNP was obtained and was 44,433. CXRis consistent with volume overload. Case was discussed by ED with Nephrology and the plan is for urgent HD today. [facility] Medical History (Updated 10/13/24 @ 16:[address] Bing Birmingham, ) Chronic anemia AV fistula Kidney disease Former smoker Hypertension Dialysis patient Arteriovenous fistula of right upper extremity Alports syndrome Home Medications ?Medication ?Instructions ?Recorded ?Last Taken ?Type carvedilol 12.5 mg tablet 12.5 mg PO BID 02/11/2409/17 History cinacalcet 30 mg tablet 30 mg PO QPM 02/11/24 Unknow n History losartan 100 mg tablet 100 mg PO DAILY 02/11/24 History sevelamer carbonate 800 mg tablet 800 mg PO TID 10/12/24 History vit B,C-folic ac 800 mcg-zinc 12.5 1 tab PO DAILY 01/1810/12/24 History mg-selen-D3 2,000 unit-vit E tablet (RenaPlex-D) albuterol sulfate 90 mcg/actuation 1 - 2 puff inhalati on Q4H PRN PRN 10/03/24 Unknown Rx aerosol inhaler (Ventolin HFA) Wheezing #1 inh lanthanum 1,000 mg chewable tablet 1,000 mg PO TID 10/12/24 History Allergy/AdvReac Type Severity Reaction Status Date / Time No Known Allergies Allergy Verified 10/13/24 08:14 Family History no significant family his no significant family history Surgical History no surgical history no surgical history Social History (Updated 10/13/24 @ 16:[address] Bing Birmingham, DO) household members: family housing: house Smoking Status: Former smoker alcohol intake: never substance use type: does not use ROS Constitutional Constitutional: Denies anorexia, change in weight, chills, fatigue, fever(s), malaise, night sweats, weakness or other Eyes Eyes: Denies blurry vision, change in eye color, change in vision, discharge from eye(s), double vision, erythema, eye pain, loss of vision or other ENT HEENT: Denies abnormal hearing, dysphagia, ear pain, epistaxis, headache(s), hearing loss, nasal congestion, nasal discharge, post nasal drip, sinus pressure, sore throat or other Cardiovascular Cardiovascular: Denies chest pain, claudication, dyspnea on exertion, edema, lightheadedness, orthopnea, palpitations, paroxysmal nocturnal dyspnea, rapid heart rate, syncope or other Respiratory/Chest Respiratory/Chest: Reports cough, dyspnea, productive cough, shortness of breathat rest and shortness of breath with exertion Gastrointestinal Gastrointestinal: Reports nausea; Denies abdominal pain, coffee ground emesis, constipation, diarrhea, dyspepsia, hematemesis, hematochezia, loose stools, melena, vomiting or other Genitourinary Genitourinary: Denies burning urination, difficulty urinating, dysuria, hematuria, nocturia, urinary frequency, urinary hesitancy, urinary incontinence,urinary urgency or other Musculoskeletal Musculoskeletal: Denies arthralgias, back pain, joint pain, joint stiffness, joint swelling, myalgias, neck pain or other Neurologic Neurologic: Denies abnormal gait, abnormal speech, confusion, disequilibrium, dizziness, focal weakness, headache(s), numbness, paresthesias, seizure-like activity, seizures, syncope, tingling, tremor(s) or other Psychiatric Psychiatric: Denies anxiety, depression, homicidal ideation, suicidal ideation or other Endocrine Endocrinology: Denies change in body appearance, cold intolerance, excessive sweating, heat intolerance, polydipsia, polyuria or other Hematologic/Lymphatic Hematologic/Lymphatic: Reports anemia; Denies easy bleeding, easy bruising, lymphadenopathy or other Allergic/Immunologic Allergic/Immunologic: Denies rhinitis, hives, eczemia, asthma or other Vital Signs Vital Signs Vital Signs: 10/13/24 08:14 10/13/24 08:16 10/13/24 08:32 Temperature 98.7 F 98.7 F Temperature Source Oral Temporal Pulse Rate 22 L 110 H Respiratory Rate 117 H 16 Respiratory Effort Short of Breath Respiratory Depth Shallow Blood Pressure 200/134 H 191/131 H Blood Pressure Mean 156 151 Pulse Ox 95 98 Oxygen Delivery Method Room Air Room Air Room Air 10/13/24 09:16 10/13/24 10:14 10/13/24 12:00 Temperature 98.4 F Temperature Source Oral Pulse Rate 98 100 101 H Respiratory Rate 18 23 H 21 H Respiratory Effort Respiratory Depth Blood Pressure 166/89 H 161/122 H 166/111 H Blood Pressure Mean 114 135 129 Pulse Ox 96 93 100 Oxygen Delivery Method Room Air Room Air Room Air Weight Weight: 80.5 kg Body Mass Index (BMI) 25.4 Physical Exam Const alert, oriented x3, no apparent distress, average body habitus and well nourished; Negative for healthy appearing Constitutional Narrative: Young, white male, sitting up in bed on dialysis, dialysis nurse at bedside, floor nurse at bedside, patient appears comfortable currently, does not appear toxic General Appearance: cooperative HEENT normocephalic, head/scalp atraumatic and moist oral mucous membranes HEENT Narrative: Mallampati 2, no thrush Eyes Eyes Narrative: Mildly pale conjunctiva bilaterally, no scleral icterus Neck supple Neck Narrative: Trachea midline Resp no retractions, no use of accessory muscles and No clear to auscultation bilaterally Resp Narrative: Mild tachypnea, bibasilar crackles Auscultation: crackles; Negative for rhonchi or wheezes Cardio regular rhythm, S1 normal heart sound, S2 normal heart sound, no murmurs, no ruband no clicks; Negative for no gallops Cardio Narrative: Tachycardia, S4 gallop GI normal to inspection, nondistended, normoactive bowel sounds, soft to palpation and non-tender Extremity no clubbing, cyanosis or edema Extremity Narrative: Fistula currently accessed on HD Neuro oriented x3, moves all extremities and no focal motor deficits Speech: speech normal Psych Psych Narrative: Affect is slightly flat but appropriate for current condition, patient makes good eye contact and interacts appropriately Results Lab / Micro Data 10/13/24 08:50 10/13/24 08:50 Labs: Laboratory Results - last 24 hr 10/13/24 08:50: WBC 8.4, RBC 2.94 L, Hgb 9.4 L, Hct 29.2 L, MCV 99.3 H, MCH 32.0, MCHC 32.2, RDW Std Deviation 58.7 H, RDW Coeff of Mono 16.3 H, Plt Count 252, MPV 9.3, Immature Gran % (Auto) 0.400, Neut % (Auto) 67.9, Lymph % (Auto) 20.8, Kent % (Auto) 5.8, Eos % (Auto) 4.9, Baso % (Auto) 0.2, Absolute Neuts (auto) 5.7, Absolute Lymphs (auto) 1.75, Nucleated RBC % 0, Sodium 140, Potassium 5.0, Chloride 96 L, Carbon Dioxide 24.4, Anion Gap 19 H, BUN 38 H, Creatinine 12.50 H*, Estim Creat Clear Calc 9.33 L*, Est GFR (MDRD) Non-Af 5 L, BUN/Creatinine Ratio 3.0 L, Glucose 98, Calcium 9.9, [place] [address] H Imaging Radiology Impression Chest X-Ray 10/13/24 08:32 IMPRESSION: Borderline cardiomegaly. Mild degree of vascular congestion and CHF. Reading Location: [id number] Assessment & Plan Assessment/Plan (1) Hypoxia: (2) Elevated brain natriuretic peptide (BNP) level: PLAN: Plan Shortness of breath/exertional hypoxia secondary to acute decompensated heart failure - Marked BNP elevation at 44,433 - Urgent dialysis for management of volume - Check echocardiogram - Currently requiring 2 L and patient is not oxygen dependent at home -Will need ambulatory pulse ox prior to discharge - Wean oxygen as able - Suspect markedly elevated blood pressures may play into this as well - Patient was only about 1.2 to 1.3 kg over his dry weight per discussion with nephrology nurse - Nephrology consult Elevated BNP - Secondary to volume overload - Check echocardiogram - Dialysis for fluid removal - Patient with also decreased BNP clearance due to abnormal renal function Elevated anion gap - Secondary to renal dysfunction - Should improve with dialysis - Bicarb is currently within normal range Cough -Etiology unclear -initially dx with bronchitis and was given Uncontrolled HTN - Continue but increase Coreg to 25 mg BID from 12.5 BID - Continue Losartan 100 mg - PRN Hydralazine for SBP >160 Chronic anemia secondary to chronic renal disease - Stable and at baseline 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 Bing Birmingham, DO; No Primary Care Physician~ Signed [facility]07-28-2025 Discharge summary [facility] Medical Records Department [address] [place] [address] Emergency Department Summary 10/13/24 MR#: [id number] Acct: [id number] Name: LAWSON DOYLE Rep #:[id number] : 2000 From: Arley Chavez PCP: Care Physician,No Primary Status :ADM KEYANNA Location: [address] History of Present Illness Chief Complaint: Shortness of Breath Informant: patient Onset/Context/Timing Onset: Days (10) Context: gradual Timing: Continuous Quality: Positive for Dyspnea on exertion Worsened by: Exertion Relieved by: Rest Associated Symptoms cough; Negative for rhinorrhea, post nasal drip, ear pain, fever, sore throat, chills, clear sputum, white sputum, yellow sputum or green sputum Chest Pain: Positive for Sharp (Left lower parasternal area) Narrative Narrative: Patient presents with shortness of breath that has been constant for the past 10days. Patient was seen here at that time and was diagnosed with pneumonia. Patient states she was put on a course of steroids, and inhaler, and "another medication". Patient states he completed his course of steroids. Patient also states he finished the other medication. Patient admits to a cough. Patient states he iscoughing up some "orange" sputum. Patient denies any fevers or chills. Patient admits to some pain over his left parasternal area. Patient describes it as sharp. Patient denies any nausea or vomiting. Patient denies any fevers or chills. Patient states he does dialysis on Sunday, Sunday, andSunday. Patient did not go to dialysis today because he felt more short of breath. Patient states his breathing is worse with any exertion. Patient states he has difficulty going up steps. Patient has nottaken any of his medications today. Patient states he normally takes his blood pressure medicines prior to going to dialysis. PE Risk Factors: Negative for Cancer, OCP + Smoking + > 35, Prior DVT or PE, Recent immobilization, Recent surgery or Recent travel [facility] Medical History (Updated 10/13/24 @ 12:[address] Arley Kirby, DO) Hypertension Dialysis patient Arteriovenous fistula of right upper extremity Alports syndrome Home Medications ?Medication ?Instructions ?Recorded ?Last Taken ?Type carvedilol 12.5 mg tablet 12.5 mg PO BID 02/11/2409/17 History cinacalcet 30 mg tablet 30 mg PO QPM 02/11/24 Unknow n History losartan 100 mg tablet 100 mg PO DAILY 02/11/24 History sevelamer carbonate 800 mg tablet 800 mg PO TID 10/12/24 History vit B,C-folic ac 800 mcg-zinc 12.5 1 tab PO DAILY 01/1810/12/24 History mg-selen-D3 2,000 unit-vit E tablet (RenaPlex-D) albuterol sulfate 90 mcg/actuation 1 - 2 puff inhalati on Q4H PRN PRN 10/03/24 Unknown Rx aerosol inhaler (Ventolin HFA) Wheezing #1 inh lanthanum 1,000 mg chewable tablet 1,000 mg PO TID 10/12/24 History Allergy/AdvReac Type Severity Reaction Status Date / Time No Known Allergies Allergy Verified 10/13/24 08:14 Social History Smoking Status: Former smoker ROS ROS ED Constitutional Constitutional ED: Denies chills or fever(s) Eyes Eyes: Denies blurry vision or change in vision ENT ENT ED: Denies rhinorrhea or sore throat Cardiovascular Cardiovascular: Reports chest pain; Denies palpitations Respiratory/Chest Respiratory/Chest: Reports cough and dyspnea Gastrointestinal Gastrointestinal: Reports abdominal pain, nausea and vomiting Genitourinary Genitourinary ED: Denies dysuria or hematuria Musculoskeletal Musculoskeletal: Denies back pain or neck pain Integumentary Denies abscess or rash Neurologic Neurologic: Denies headache(s) or weakness Allergic/Immunologic Allergic/Immunologic ED: Denies mouth swelling or urticaria EXAM Physical Exam Const Vital Signs: 10/13/24 08:14 10/13/24 08:16 10/13/24 08:32 Temperature 98.7 F 98.7 F Temperature Source Oral Temporal Pulse Rate 22 L 110 H Respiratory Rate 117 H 16 Respiratory Effort Short of Breath Respiratory Depth Shallow Blood Pressure 200/134 H 191/131 H Blood Pressure Mean 156 151 Pulse Ox 95 98 Oxygen Delivery Method Room Air Room Air Room Air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 IMPRESSION: No acute traumatic abnormality in the chest, abdomen, or pelvis. No acute abnormality in the thoracic or lumbar spine. Right lower lobe pulmonary nodule, stable from 03/21/2022. CT Abd/Pelvis: 03/04/2022: IMPRESSION: 1. Question mild gastric wall thickening. Correlate clinically for possible gastritis. 2. Small focal nodular area of consolidation in the right lower lobe likely inflammatory. VESSELS: No abnormalities identified. Abdominal aorta is normal in caliber. KIDNEYS AND URETERS: Kidneys are normal in size and location. No renal or ureteral calculi. BLADDER: No abnormalities identified. LOWER CHEST: No cardiomegaly. No pericardial effusion. Small focal nodular area of consolidation in the right lower lobe on image 23 likely inflammatory. CXR: 01/27/2023: IMPRESSION: Updating today No acute process Health Maintenance/Cancer Screening: PSA: No results found for: "PSA" Colonoscopy: N/A (age) Immunizations: HBV series: Received, date 02/26/2023 Pneumovax: Received, date 05/22/2022 Influenza vaccine: No records on file. Will request from dialysis Covid vaccine: No records on file. Will request from dialysis Serologies: To be updated today Latest Ref Rng 12/21/2022 TB Nil <=8.00 IU/mL 0.02 TB1 Ag minus Nil <0.35 IU/mL 0.10 TB2 Ag minus Nil <0.35 IU/mL 0.11 TB Result Negative Mitogen minus Nil >=0.50 IU/mL >9.98 TB Interpretation Infection with M. tuberculosis complex is unlikely. If latent tuberculosis infection is highly suspected, a negative result does not rule out the infection. Specimens from immunocompromised patients and those <5 years of age may show false negative results. In case of a contactinvestigation, please repeat 8-12 weeks after a known exposure. HIV 12 Combo (Ag/Ab) Nonreactive Nonreactive HIV 1/2 Ab -- HIV Interpretation -- CMV IgG Qualitative Negative Negative CMV Antibody, IgG U/mL 0.28 Syphilis Treponemal Screen Nonreactive Nonreactive Syphilis Interpretation Cannot exclude recent Treponemal infection if specimen collected within 7-10 days after appearance of suspect lesions or 2-3 weeks after an exposure. Clinical correlation is required. Hep B Surface Ab, Qual Negative Hep B Surf Ab Quant mIU/mL <8.00 EBV VCA IgG, Qual Negative Positive ! HCV RNA HCV RNA not detected by PCR. HCV RNA not detected by PCR. Strongyloides IgG, Serum Negative Negative Measles Antibody, IGG Qualitative Positive Equivocal ! Varicella Zoster IgG, Qual Positive Negative ! Hep C Antibody IA Negative Negative Hep B Surface Ag Negative Negative Hep B Core Ab, Total Negative Negative Seen by Dr. Carrie Kwong, RN Kidney Elevator Troubleshooter Influenza vaccine suggested COVID vaccine suggested Smoking cessation with negative Cotinine in one month CT abd/pelvis due this month REVIEW OF SYSTEMS: Comprehensive ROS obtained and negative unless noted in above HPI. PHYSICAL EXAM: BP 140/92 Pulse 94 Temp 37 C (98.6 F) (Temporal) Ht 177.8 cm (5' 10") Wt 83.5 kg (184 lb 1.4 oz) SpO2 99% BMI 26.41 kg/m General appearance: Well appearing, alert, in no acute distress, well-hydrated, well nourished. Skin: Skin color, texture, turgor normal, no suspicious rashes or lesions Head: Normocephalic, no masses, lesions, tenderness or abnormalities Eyes: Anicteric sclera. Extraocular movements are intact. Ears: External ears normal Back: Normal exam Cardiac: RRR, no murmurs rubs or gallops Lungs:Respirations unlabored Abdomen: Normal abdominal exam, Abdomen soft, non-tender. Bowel sounds normal. No masses, organomegaly Extremities: No deformities, edema, skin discoloration, clubbing or cyanosis. Good capillary refill. Musculoskeletal: No joint swelling, deformity, or tenderness Peripheral pulses: Normal Neuro: Gait normal. Sensation grossly intact. Dialysis Access: AVF ASSESSMENT: no h/o DVT, PE, RI, or CVA Midodrine no no h/o malignancy no anticoagulation -The kidney transplant and kidney/pancreas transplant operations were discussed with the patient atlength, and all questions were answered to the patient's satisfaction. Risks, benefits, and alternatives discussed. Risks discussed include but are not limited to: bleeding, infection, , RI, DVT, PE, CVA, risk of damage to surrounding structures, risk of lymphocele, urine leak, stricture, lower extremity complications, risk of bowel complications, bowel obstruction, and anastomotic leak. Also discussed the need for immunosuppressant medications for the lifetime of the allograft and the associated risks of infection and malignancy over time. PLAN: - Mr. 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 He has been on dialysis since 2021. - CT: no calcification on both EIAs - Patient is an acceptable surgical candidate for renal transplantation pending acceptable findingson the remainder of pre transplant evaluation - Quit smoking Plan: Mr. Doyle is an acceptable candidate for kidney transplantation pending completion of work up and meeting the rest of the team. Advantages and disadvantages of transplantation versus dialysis were reviewed. Discussed the operative procedure and potential complications. I addressed issues of post- operative recovery and follow up. Few things I have discussed with him a. because of his age, living donor would be ideal for him. b. the importance of compliance c. the frequent travel in the early post op period for monitoring d. We also discussed the transplant procedure and the need for urinary catheter and ureteric stent.I overviewed the issues of delayed graft function, the possible need for dialysis, and the possibleneed for re-operation during the early postoperative period. I also informed them of the occasionalneed for blood transfusion and they expressed their understanding and willingness to accept one if the need arises. I mentioned other complications including thromboembolic events, cardiac events, and infection. Lastly I discussed the need for immunosuppressive therapy and the risk associated with this treatment. they would like to proceed 1. CT scan abdomen and pelvis non contrast: no calcification on both EIAs 2. Serology - 3. stress echo 4. quit smoking I spent a total of 45 minutes on the date of the service which included preparing to see the patient, [id number] patient care, completing clinical documentation, obtaining and/or reviewing separately obtained history, performing a medically appropriate examination, counseling and educating the pat ient/family/caregiver, ordering medications, tests, or procedures, communicating with other HCPs (not separately reported), independently interpreting results (not separately reported), communicatingresults to the patient/family/caregiver, and care coordination (not separately reported). Ramiro Rico MD documented [facility] History of Present illness Narrative* Hua Wheeler MD - 03/04/2024 3:30 PM EST [facility] TRANSPLANT TRANSPLANT RE-EVALUATION Patient is a 24 year old male here for re-evaluation of his Kidney transplant status. Dialysis Start Date: 03/18/2022 Dialysis Type: hemodialysis, M-W-F Dialysis Access: right upper extremity arteriovenous fistula Dialysis Unit: [address] [address] Referring/Local Cane Flume Watcher: Dr Hgiuera Last evaluation: 12/21/2022 Listed for transplant: 09/11/2023 Status on waitlist: INACTIVE Reason for Re-Evaluation: 24 year old male here for kidney transplant waitlist re-evaluation. 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 Patient has a significant family history affecting his mother, brother, aunt, and cousins. Many of these family members have also received transplants. His Alports was never biopsy proven nor genetic testing completed, diagnosed solely on family history. Patient started dialysis 03/18/22 via R AV fistula. Hypercoagulable (history of DVT/PE, miscarriages, prior use of anticoagulation, etc.):No Malignancy (including skin cancer): No Peripheral Arterial Disease: (TIA non-embolic, CVA non-embolic, amputation, carotid artery stenosis, abnormal PVRs, claudication history, decreased pulses, etc.):No Stroke: NO Claudication: NO Carotid Artery Stenosis: NO Diagnosis: CKD: Yes: Cause of CKD: Alport's Urine Output: 0.5L daily DM: No RI, CVA, PE/DVT: No Anticoagulation: No Immunosuppression: No Malignancies: No Recent Hospitalizations: No Infections: No Living Donors: No COVID Status: Not vaccinated Abdominal/Pelvic surgeries: None BP 140/92 Pulse 94 Temp 37 C (98.6 F) (Temporal) Ht 177.8 cm (5' 10") Wt 83.5 kg (184 lb 1.4 oz) SpO2 98% BMI 26.41 kg/m Types of donors patient is willing to consider: KDPI score > 85% No Donors from Cardiac (DCD) Yes Hepatitis B Core Antibody Pos Donors No Hepatitis C Pos Donors No Sensitizations: Blood transfusions: no Willing to accept blood products if needed: yes Prior transplant: No Rabbit: Yes: Hunting and Dressing PRA: Serum Date: 12/17/2023 Total PRA: 7 Strong PRA: 0 Strong antibodies: 0 Weak antibodies: DPB1*10, DPB1*14, DPB1 * 23 ABO: 12/21/2022 ABO A ABO A Rh(D) Positive Rh(D) Positive Antibody Screen Negative Type+Scr Expiration 12/24/2022 23:59 Historical Ab Scr Status NEGATIVE PAST MEDICAL HISTORY Diagnosis Date Complication of AV dialysis fistula 06/06/2022 HTN (hypertension) PAST SURGICAL HISTORY Procedure Laterality Date IR TUNNELLED DIALYSIS CATHETER TONGUE SURGERY HX Current Outpatient Medications Medication Sig RENAPLEX-D 800 mcg-12.5 mg -2,000 unit tab Take 1 tablet by mouth once daily. carvedilol (COREG) 12.5 mg tablet twice daily with meals. losartan (COZAAR) 100 mg tablet once daily. ondansetron orally disintegrating (ZOFRAN ODT) 4 mg disintegrating tablet sevelamer carbonate (RENVELA) 800 mg tablet once daily. tuberculin,purif.prot.deriv. (TUBERSOL INTRADERM.) 0.1 mL by INTRADERMAL route. doxercalciferol (HECTOROL INTRAVENOUS) 1 mcg. No current facility-administered medications for this visit. MOST RECENT / UPDATED TESTING: Cardiac: EK08/06/2023: Diagnosis: Sinus rhythm Normal ECG Echo: 01/17/2023: CONCLUSIONS: - Technically difficult exam due to limited imaging window. Cannot fully visualize the right ventricle. - Exam indication: Pre Op Kidney Transplant - The left ventricle is normal in size. Left ventricular systolic function is normal. EF = 63 5% (2D biplane) Normal left ventricular diastolic function. - Right ventricular systolic function is most likely normal by tissue Doppler and Tricuspid annular displacement. The right ventricular size cannot be accurately determined due to limited visualization. If clinically indicated, consider adjunctive imaging modality to better visualize right ventricular size and function. - There are no significant valvular abnormalities. - The patient has not had a prior CC echocardiographic exam for comparison. Vascular/Imaging: CTA chest/abdomen/pelvis: 05/09/2023: IMPRESSION: No acute traumatic abnormality in the chest, abdomen, or pelvis. No acute abnormality in the thoracic or lumbar spine. Right lower lobe pulmonary nodule, stable from 03/21/2022. CT Abd/Pelvis: 03/04/2022: IMPRESSION: 1. Question mild gastric wall thickening. Correlate clinically for possible gastritis. 2. Small focal nodular area of consolidation in the right lower lobe likely inflammatory. VESSELS: No abnormalities identified. Abdominal aorta is normal in caliber. KIDNEYS AND URETERS: Kidneys are normal in size and location. No renal or ureteral calculi. BLADDER: No abnormalities identified. LOWER CHEST: No cardiomegaly. No pericardial effusion. Small focal nodular area of consolidation in the right lower lobe on image 23 likely inflammatory. CXR: 01/27/2023: IMPRESSION: Updating today No acute process Health Maintenance/Cancer Screening: PSA: No results found for: "PSA" Colonoscopy: N/A (age) Immunizations: HBV series: Received, date 02/26/2023 Pneumovax: Received, date 05/22/2022 Influenza vaccine: No records on file. Will request from dialysis Covid vaccine: No records on file. Will request from dialysis Serologies: To be updated today Latest Ref Rng 12/21/2022 TB Nil <=8.00 IU/mL 0.02 TB1 Ag minus Nil <0.35 IU/mL 0.10 TB2 Ag minus Nil <0.35 IU/mL 0.11 TB Result Negative Mitogen minus Nil >=0.50 IU/mL >9.98 TB Interpretation Infection with M. tuberculosis complex is unlikely. If latent tuberculosis infection is highly suspected, a negative result does not rule out the infection. Specimens from immunocompromised patients and those <5 years of age may show false negative results. In case of a contactinvestigation, please repeat 8-12 weeks after a known exposure. HIV 12 Combo (Ag/Ab) Nonreactive Nonreactive HIV 1/2 Ab -- HIV Interpretation -- CMV IgG Qualitative Negative Negative CMV Antibody, IgG U/mL 0.28 Syphilis Treponemal Screen Nonreactive Nonreactive Syphilis Interpretation Cannot exclude recent Treponemal infection if specimen collected within 7-10 days after appearance of suspect lesions or 2-3 weeks after an exposure. Clinical correlation is required. Hep B Surface Ab, Qual Negative Hep B Surf Ab Quant mIU/mL <8.00 EBV VCA IgG, Qual Negative Positive ! HCV RNA HCV RNA not detected by PCR. HCV RNA not detected by PCR. Strongyloides IgG, Serum Negative Negative Measles Antibody, IGG Qualitative Positive Equivocal ! Varicella Zoster IgG, Qual Positive Negative ! Hep C Antibody IA Negative Negative Hep B Surface Ag Negative Negative Hep B Core Ab, Total Negative Negative Seen by Dr. Aurelia Kwong, RN Kidney Elevator Troubleshooter Influenza vaccine suggested COVID vaccine suggested Smoking cessation with negative Cotinine in one month CT abd/pelvis due this month Staff: I have seen the patient and confirmed the above findings and personally filed the HPI. REVIEW OF SYSTEMS ROS: Constitutional: negative for fatigue, weight loss or gain. Negative for fevers, chills, night sweats. HEENT: no oral lesions, no odynophagia, no visual difficulties Cardiac: negative for chest pain, pressure, angina, no edema Respiratory: negative for dyspnea, SOB, ROBERTSON. Gastrointestinal: negative for diarrhea, constipation, bowel habit change. Genitourinary: negative for dysuria, frequency Immunologic/Heme/Lymphatic: negative for anemia, easy bruising, lymph node enlargement Neurologic: No tremor, seizures, confusion. Skin: negative for rash, or other lesion Musculoskeletal: negative for arthritis, gout, myalgias Psychiatric: negative for behavioral change, mood disorders, depression Functional capacity: >4.0, <8.0 moderate effort such as carrying 15lb KARNOFSKY INDEX SCALE (Adult patients aged 18 and older) - Used to rate a patient's functional status before and after a medical procedure: 90 - Able to carry on normal activity: minor signs or symptoms of disease. PHYSICAL EXAMINATION: BP 140/92 Pulse 94 Temp 37 C (98.6 F) (Temporal) Ht 177.8 cm (5' 10") Wt 83.5 kg (184 lb 1.4 oz) SpO2 98% BMI 26.41 kg/m HEENT: anicteric, conj noninflamed NECK: supple, no JVP Lungs: CTA Bilaterally, no wheezes CV: Normal S1, S2. no pathologic murmurs, rubs, gallops ABD: soft, NT, ND Ext: no edema Labs/Studies: To be reviewed Impression: 24 y/o Alport , on IHD Fully functional , still makes urine Needs to quit smoking, remains inactive Pharmacy Consult: Not needed at this time We had the opportunity to discuss the following, specific for this patient: 1. Risks and benefits of transplantation including overall average increase in life expectancy and higher quality of life with transplantation for most but not all recipients; however, there is during the immediate transplant period a higher risk of that is variable depending on recipient anddonor factors. The time period to obtain equal risk to staying on the wait list, and gain of benefit from transplantation is also variable. 2. Types of donor organs discussed with patient, including Living donor (if appropriate), ,high KDPI, donor cardiac (DCD) Hepatitis C positive and increased risk donor types. The relative benefit of living donation over donor transplantation explained. We discussed the possibility of living donors for Mr. Doyle. 3. We had a lengthy discussion regarding immunosuppression following transplantation. I explained our usual protocols, drugs involved, administration and monitoring. This included the risks of possibly life threatening infection, , and malignancy following transplantation, possible need for dialysis and re-admission to the hospital. I explained the potential outcomes, including uncommon but catastrophic outcome related or not to kidney transplant itself. Opportunity to ask questions given. Patient expresses understanding of the information discussed. Communication with referring provider done by letter. Hua Wheeler MD documented in this encounterDay[facility]12-[facility]24 NoteHNO ID: [id number] Author: HUA WHEELER MD Service: ? Author Type: Physician Type: Progress Notes Filed: 03/04/2024 13:30 Note Text: [facility] TRANSPLANT TRANSPLANT RE-EVALUATION Patient is a 24 year old male here for re-evaluation of his Kidney transplant status. Dialysis Start Date: 03/18/2022 Dialysis Type: hemodialysis, M-W-F Dialysis Access: right upper extremity arteriovenous fistula Dialysis Unit: [facility] [address] [place] [id number] Referring/Local Cane Flume Watcher: Dr Higuera Last evaluation: 12/21/2022 Listed for transplant: 09/11/2023 Status on waitlist: INACTIVE Reason for Re-Evaluation: 24 year old male here for kidney transplant waitlist re-evaluation. 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 Patient has a significant family history affecting his mother, brother, aunt, and cousins. Many of these family members have also received transplants. His Alports was never biopsy proven nor genetic testing completed, diagnosed solely on family history. Patient started dialysis 03/18/22 via R AV fistula. Hypercoagulable (history of DVT/PE, miscarriages, prior use of anticoagulation, etc.):No Malignancy (including skin cancer): No Peripheral Arterial Disease: (TIA non-embolic, CVA non-embolic, amputation, carotid artery stenosis, abnormal PVRs, claudication history, decreased pulses, etc.):No Stroke: NO Claudication: NO Carotid Artery Stenosis: NO Diagnosis: CKD: Yes: Cause of CKD: Alport's Urine Output: 0.5L daily DM: No RI, CVA, PE/DVT: No Anticoagulation: No Immunosuppression: No Malignancies: No Recent Hospitalizations: No Infections: No Living Donors: No COVID Status: Not vaccinated Abdominal/Pelvic surgeries: None BP 140/92 Pulse 94 Temp 37 ?C (98.6 ?F) (Temporal) Ht 177.8 cm (5' 10") Wt 83.5 kg (184 lb 1.4 oz) SpO2 98% BMI 26.41 kg/m? Types of donors patient is willing to consider: KDPI score > 85% No Donors from Cardiac (DCD) Yes Hepatitis B Core Antibody Pos Donors No Hepatitis C Pos Donors No Sensitizations: Blood transfusions: no Willing to accept blood products if needed: yes Prior transplant: No Rabbit: Yes: Hunting and Dressing PRA: Serum Date: 12/17/2023 Total PRA: 7 Strong PRA: 0 Strong antibodies: 0 Weak antibodies: DPB1*10, DPB1*14, DPB1 * 23 ABO: 12/21/2022 ABO A ABO A Rh(D) Positive Rh(D) Positive Antibody Screen Negative Type+Scr Expiration 12/24/2022 23:59 Historical Ab Scr Status NEGATIVE PAST MEDICAL HISTORY Diagnosis Date Complication of AV dialysis fistula 06/06/2022 HTN (hypertension) PAST SURGICAL HISTORY Procedure Laterality Date IR TUNNELLED DIALYSIS CATHETER TONGUE SURGERY HX Current Outpatient Medications Medication Sig RENAPLEX-D 800 mcg-12.5 mg -2,000 unit tab Take 1 tablet by mouth once daily. carvedilol (COREG) 12.5 mg tablet twice daily with meals. losartan (COZAAR) 100 mg tablet once daily. ondansetron orally disintegrating (ZOFRAN ODT) 4 mg disintegrating tablet sevelamer carbonate (RENVELA) 800 mg tablet once daily. tuberculin,purif.prot.deriv. (TUBERSOL INTRADERM.) 0.1 mL by INTRADERMAL route. doxercalciferol (HECTOROL INTRAVENOUS) 1 mcg. No current facility-administered medications for this visit. MOST RECENT / UPDATED TESTING: Cardiac: EK08/06/2023: Diagnosis: Sinus rhythm Normal ECG Echo: 01/17/2023: CONCLUSIONS: - Technically difficult exam due to limited imaging window. Cannot fully visualize the right ventricle. - Exam indication: Pre Op Kidney Transplant - The left ventricle is normal in size. Left ventricular systolic function is normal. EF = 63 ? 5% (2D biplane) Normal left ventricular diastolic function. - Right ventricular systolic function is most likely normal by tissue Doppler and Tricuspid annular displacement. The right ventricular size cannot be accurately determined due to limited visualization. If clinically indicated, consider adjunctive imaging modality to better visualize right ventricular size and function. - There are no significant valvular abnormalities. - The patient has not had a prior CC echocardiographic exam for comparison. Vascular/Imaging: CTA chest/abdomen/pelvis: 05/09/2023: IMPRESSION: No acute traumatic abnormality in the chest, abdomen, or pelvis. No acute abnormality in the thoracic or lumbar spine. Right lower lobe pulmonary nodule, stable from 03/21/2022. CT Abd/Pelvis: 03/04/2022: IMPRESSION: 1. Question mild gastric wall thickening. Correlate clinically for possible gastritis. 2. Small focal nodular area of consolidation in the right lower lobe likely inflammatory. VESSELS: No abnormalities identified. Abdominal aorta is normal in caliber. KIDNEYS AND URETERS: Kidneys are normal in size and location. No renal or ureteral calculi. BLADDER: No abnormalities identified. LOWER CHEST: No cardiomeg (more content not included)...[facility]12-17-[facility] NoteHNO ID: [id number] Author: RAMIRO RICO MD Service: ? Author Type: Physician Type: Progress Notes Filed: 03/04/2024 14:09 Note Text: [facility] TRANSPLANT TRANSPLANT RE-EVALUATION Patient is a 24 year old male here for re-evaluation of his Kidney transplant status. Dialysis Start Date: 03/18/2022 Dialysis Type: hemodialysis, M-W-F Dialysis Access: right upper extremity arteriovenous fistula Dialysis Unit: [address] [address] Referring/Local Cane Flume Watcher: Dr Higuera Last evaluation: 12/21/2022 Listed for transplant: 09/11/2023 Status on waitlist: INACTIVE Reason for Re-Evaluation: 24 year old male here for kidney transplant waitlist re-evaluation. 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 Patient has a significant family history affecting his mother, brother, aunt, and cousins. Many of these family members have also received transplants. His Alports was never biopsy proven nor genetic testing completed, diagnosed solely on family history. Patient started dialysis 03/18/22 via R AV fistula. In this OV we know pt : - On dialysis for 2 years has a fistula ,which is going good - No medication needed during dialysis - He needs to stop smoking - Makes urine around 500 ml. Hypercoagulable (history of DVT/PE, miscarriages, prior use of anticoagulation, etc.):No Malignancy (including skin cancer): No Peripheral Arterial Disease: (TIA non-embolic, CVA non-embolic, amputation, carotid artery stenosis, abnormal PVRs, claudication history, decreased pulses, etc.):No Stroke: NO Claudication: NO Carotid Artery Stenosis: NO Diagnosis: CKD: Yes: Cause of CKD: Alport's Urine Output: 0.5L daily DM: No RI, CVA, PE/DVT: No Anticoagulation: No Immunosuppression: No Malignancies: No Recent Hospitalizations: No Infections: No Living Donors: No COVID Status: Not vaccinated Abdominal/Pelvic surgeries: None BP 140/92 Pulse 94 Temp 37 ?C (98.6 ?F) (Temporal) Ht 177.8 cm (5' 10") Wt 83.5 kg (184 lb 1.4 oz) SpO2 98% BMI 26.41 kg/m? Types of donors patient is willing to consider: KDPI score > 85% No Donors from Cardiac (DCD) Yes Hepatitis B Core Antibody Pos Donors No Hepatitis C Pos Donors No Sensitizations: Blood transfusions: no Willing to accept blood products if needed: yes Prior transplant: No Rabbit: Yes: Hunting and Dressing PRA: Serum Date: 12/17/2023 Total PRA: 7 Strong PRA: 0 Strong antibodies: 0 Weak antibodies: DPB1*10, DPB1*14, DPB1 * 23 ABO: 12/21/2022 ABO A ABO A Rh(D) Positive Rh(D) Positive Antibody Screen Negative Type+Scr Expiration 12/24/2022 23:59 Historical Ab Scr Status NEGATIVE PAST MEDICAL HISTORY Diagnosis Date Complication of AV dialysis fistula 06/06/2022 HTN (hypertension) PAST SURGICAL HISTORY Procedure Laterality Date IR TUNNELLED DIALYSIS CATHETER TONGUE SURGERY HX Current Outpatient Medications Medication Sig RENAPLEX-D 800 mcg-12.5 mg -2,000 unit tab Take 1 tablet by mouth once daily. carvedilol (COREG) 12.5 mg tablet twice daily with meals. losartan (COZAAR) 100 mg tablet once daily. ondansetron orally disintegrating (ZOFRAN ODT) 4 mg disintegrating tablet sevelamer carbonate (RENVELA) 800 mg tablet once daily. tuberculin,purif.prot.deriv. (TUBERSOL INTRADERM.) 0.1 mL by INTRADERMAL route. doxercalciferol (HECTOROL INTRAVENOUS) 1 mcg. No current facility-administered medications for this visit. MOST RECENT / UPDATED TESTING: Cardiac: EK08/06/2023: Diagnosis: Sinus rhythm Normal ECG Echo: 01/17/2023: CONCLUSIONS: - Technically difficult exam due to limited imaging window. Cannot fully visualize the right ventricle. - Exam indication: Pre Op Kidney Transplant - The left ventricle is normal in size. Left ventricular systolic function is normal. EF = 63 ? 5% (2D biplane) Normal left ventricular diastolic function. - Right ventricular systolic function is most likely normal by tissue Doppler and Tricuspid annular displacement. The right ventricular size cannot be accurately determined due to limited visualization. If clinically indicated, consider adjunctive imaging modality to better visualize right ventricular size and function. - There are no significant valvular abnormalities. - The patient has not had a prior CC echocardiographic exam for comparison. Vascular/Imaging: CTA chest/abdomen/pelvis: 05/09/2023: IMPRESSION: No acute traumatic abnormality in the chest, abdomen, or pelvis. No acute abnormality in the thoracic or lumbar spine. Right lower lobe pulmonary nodule, stable from 03/21/2022. CT Abd/Pelvis: 03/04/2022: IMPRESSION: 1. Question mild gastric wall thickening. Correlate clinically for possible gastritis. 2. Small focal nodular area of consolidation in the right lower lobe likely inflammatory. VESSELS: No abnormalities identified. Abdominal aor (more content not included)... [facility]12-17-2024 Instructions* Patient Instructions* Velma Kwong RN - 03/04/2024 1:40 PM EST As part of your transplant re-evaluation you are required to complete the following additional items. You are currently listed as inactive on the Kidney transplant waiting. The most efficient way to complete your re-evaluation is to have these items completed as soon as possible so that we may review the results. Please contact us if you have any questions regarding therequested information. Failure to complete the testing requested may render you inactive on the waiting list. The following will be need to be completed at a [facility] facility: CARDIAC: ECG - today CANCER SCREENING: CXR PA & Lat ADDITIONAL CONSULTS Social work clearance after negative cotinine test Imaging Studies: CT of abdomen and pelvis without contrast - this nurse to order Miscellaneous Items: Labs - today Cotinine test - today Influenza vaccine suggested COVID vaccine suggested You are responsible for scheduling your needed testing/consults. Please feel free to call [phone] to arrange. Outside test results should be faxed to [phone]. Please review the kidney transplant educational materials on line at [email or web address] Sign-in: Kidney To check on your status on the wait list, please contact your coordinator, Velma Kwong RN [phone]. You will need to follow up with the transplant team in 1 year for reassessment. Velma Kwong RN Kidney/Pancreas Pre-Elevator Troubleshooter [facility] documented in this encounterDayton [facility]12-[facility] NoteHNO ID: [id number] Author: ELBERT LEE RN Service: ? Author Type: Registered Nurse Type: Progress Notes Filed: 03/04/2024 12:10 Note Text: Kidney/Pancreas Transplant Wait List Education Note Type of Transplant: Kidney Informed Consent for Evaluation signed: Yes Informed Consent for Addition to Wait List Signed: Yes Multiple Listing Form signed: Yes READINESS TO LEARN: Cognitive Ability: Alert and oriented Motivation to Learn: Eager Interested Family Support: Unable to assess - Family not present Instruction Provided to: Patient Patient Learns Best by: Multiple Methods Factors Affecting Learning: None Physical Limitations Affecting Learning: None Supplemental Material: -[facility]: Questions AND Answers for Transplant Candidates about Multiple Listing and Waiting Time Transfer -[facility]: Questions AND Answers for Transplant Candidates about Kidney Allocation Policy -Current SRTR Program Summary -Informed Consent for Transplant Program Participation patient education packet -National Kidney Registry pamphlet: Yes -Center for Disease Control General Information: Hepatitis C Handout -Covid-19 Vaccination for Transplant Candidates Additional Information: -The patient was re-educated regarding the responsibilities of being listed on the transplant waitlist. - Patient encouraged to avoid blood transfusion unless it's deemed a medically necessary. -Educated patient on the current allocation policy per [facility] regarding kidney and/or kidney-pancreas/pancreas transplant. - Education covered the need for monthly serum samples to be drawn and sent to the [facility] while actively listed. - The patient was told to inform the Pre Transplant office if there are any changes in their medical condition, demographics, insurance coverage ( including medication coverage) and or dialysis units. - The patient was reminded to fax test results of studies that were obtained outside [facility] facilities. -Explained lifetime immunosuppression therapy and frequency of blood draws/labs post-op and post-op course of treatment. Method of Instruction: Group class instruction Patient/Family Response: Patient asked appropriate questions, which were answered satisfactorily. PAULETTE Nevarez, RN, [facility] History of Present illness Narrative* Elbert Lee RN - 03/04/2024 12:08 PM EST Kidney/Pancreas Transplant Wait List Education Note Type of Transplant: Kidney Informed Consent for Evaluation signed: Yes Informed Consent for Addition to Wait List Signed: Yes Multiple Listing Form signed: Yes READINESS TO LEARN: Cognitive Ability: Alert and oriented Motivation to Learn: Eager Interested Family Support: Unable to assess - Family not present Instruction Provided to: Patient Patient Learns Best by: Multiple Methods Factors Affecting Learning: None Physical Limitations Affecting Learning: None Supplemental Material: -UNOS: Questions & Answers for Transplant Candidates about Multiple Listing and Waiting Time Transfer -UNOS: Questions & Answers for Transplant Candidates about Kidney Allocation Policy -Current SRTR Program Summary -Informed Consent for Transplant Program Participation patient education packet -National Kidney Registry pamphlet: Yes -Center for Disease Control General Information: Hepatitis C Handout -Covid-19 Vaccination for Transplant Candidates Additional Information: -The patient was re-educated regarding the responsibilities of being listed on the transplant waitlist. - Patient encouraged to avoid blood transfusion unless it's deemed a medically necessary. -Educated patient on the current allocation policy per UNOS regarding kidney and/or kidney-pancreas/pancreas transplant. - Education covered the need for monthly serum samples to be drawn and sent to the [facility] while actively listed. - The patient was told to inform the Pre Transplant office if there are any changes in their medical condition, demographics, insurance coverage ( including medication coverage) and or dialysis units. - The patient was reminded to fax test results of studies that were obtained outside [facility] facilities. -Explained lifetime immunosuppression therapy and frequency of blood draws/labs post-op and post-opcourse of treatment. Method of Instruction: Group class instruction Patient/Family Response: Patient asked appropriate questions, which were answered satisfactorily. JENIFFER NevarezN, RN, [facility] Kidney/Pancreas Pre-Elevator Troubleshooter documented in this encounterDayton [facility]12-[facility]24 NoteHNO ID: [id number] Author: JANUARY MATIAS LISW Service: ? Author Type: Medical Office Receptionist Assistant Type: Progress Notes Filed: 03/10/2024 10:54 Note Text: PSYCHOSOCIAL WAITLIST EVALUATION FOR KIDNEY TRANSPLANT (Assessment Via Telephone Contact) Lawson Doyle was initially evaluated by this SW on 12/21/22. At the time of initial assessment, Lawson Doyle was not yet a suitable psychosocial candidate for kidney transplant. At the time of the assessment, pt's primary support needed to be verified. Primary support was later verified and pt was deemed to be a suitable psychosocial candidate. Pt has been listed at since 12/21/22. DIALYSIS START DATE: March 2022 Pt receives hemodialysis at [facility] on M, W, F starting at 1:05pm and it runs for 4hrs.. Pt has been at this new center since December 2023. Pt switched centers because this center is closer to his apartment. The dialysis center phone number is [phone]. This social work psychosocial waitlist evaluation was completed with Lawson Doyle via telephone on March 04, 2024. Pt was at alone during the time of this assessment. Race/Gender: Male White [x] Descent [][place] or []North (non-Black) []White: Other []White: Not Specified/Unknown U[place] Citizen: Yes IDENTIFYING INFORMATION/LIVING SITUATION Lawson Doyle resides at: [address] [place] [id number]. This apartment is about 1hr AND 10min (63 miles) away from . Pt has lived in this 1 bedroom apartment since November 2023. Pt denies any architectural barriers in the apartment. Pt reports he is independent with all ADL's, he has a drivers license and a vehicle. Pt denies receiving any home health care or home health aide services at this time. There are no other residents in the home. There is 1 licensed driver/guide in the home and 1 working vehicle. Caregiver responsibilities: None Pets in the home: None TRANSPLANT LODGING PLANS FOR PATIENTS WHO LIVE 2.5 OR MORE HOURS AWAY FROM [facility]: Do you have the financial means to stay in the area for four weeks or more post-transplant? N/A COMPLIANCE Missed doctor appointments: Pt currently has a No Show rate of 33% (12 of 36.) Missed/shortened/rescheduled dialysis appointments: Pt stated he goes to all dialysis sessions and stays the full treatment. However, pt reports he missed 1 session about 1.5 weeks ago due to a family emergency. Knowledge of medications: Pt was able to tell SW the name and purpose of his medication. Medication Compliance: Pt stated he takes all medication as prescribed and he takes them straight from the bottles. Have you ever stopped taking any medication because you lost your insurance you could not afford it? Denies Have you stopped taking medication because you felt you didn't need it or because of side-effects? Denies Have you ever been transplanted, evaluated, or listed at another center: No Potential donor: None identified at this time. SW discussed the importance of medical compliance, including attending all medical appointments as scheduled, compliance with dialysis regimen, medication compliance, returning phone calls from medical staff and etc.. SW discussed possible outcomes of non-compliance. Pt verbalized understanding. SUBSTANCE USE/ABUSE Alcohol: Pt stated he may have 2-3 beers a month. Tobacco: Pt is currently smoking cigarettes. Pt stated he has been smoking for about 2-3 months and 1 pack of cigarettes will last him one month. SW reminded pt that he needs to refrain from all tobacco products and it's a life long commitment. SW discussed possible outcomes of usage. Pt verbalized understanding. Exposure to second hand smoke: No Cocaine, THC, Heroin, or Other Recreational Drug Use: Pt denies ever using. Over the Counter Medications: Tylenol as needed. Opioids/Controlled Substances: None CAGE Questionnaire Have you ever felt you should cut down on your drinking? No Have people annoyed you by criticizing your drinking? No Have you ever felt bad or guilty about your drinking? No Have you ever had a drink first thing in the morning to steady your nerves or to get rid of a hangover (eye accountant certified public)? No LEGAL ENCOUNTERS Currently on probation or parole: No Past or current warrants for arrest: No Substance related legal problems: No Valid drivers license: Yes History of any legal issues not previously mentioned: No MENTAL HEALTH HISTORY Affect: Appropriate/Consistent Alert: Alert Orientation: person, place and time Cognitive Function: Cognition appears relatively intact Mood: Euthymic Are you having thoughts that you would be better off , or of hurting yourself in some way? Denies Current mental health diagnoses / current feelings of anxiety or depression: Pt denies any current or past mental health diagnoses. Pt denies any current symptoms/feelings of anxiety or depression. (more content not included)...[facility]12[facility]17[facility] History of Present illness Narrative* January Matias LISW - 03/04/2024 11:24 AM EST PSYCHOSOCIAL WAITLIST EVALUATION FOR KIDNEY TRANSPLANT (Assessment Via Telephone Contact) Lawson Doyle was initially evaluated by this SW on 12/21/22. At the time of initial assessment, Lawson Doyle was not yet a suitable psychosocial candidate for kidney transplant. At the time of the assessment, pt's primary support needed to be verified. Primary support was later verified and pt wasdeemed to be a suitable psychosocial candidate. Pt has been listed at since 12/21/22. DIALYSIS START DATE: March 2022 Pt receives hemodialysis at [facility] on , , F starting at 1:05pm and it runs for 4hrs.. Pt has been at this new center since December 2023. Pt switched centers because this center is closer to his apartment. The dialysis center phone number is [phone]. This social work psychosocial waitlist evaluation was completed with Lawson Doyle via telephone onDecemb2023. Pt was at alone during the time of this assessment. Race/Gender: Male White [x] Descent [][place] or [][place] (non-Black) []White: Other []White: Not Specified/Unknown [place] Citizen: Yes IDENTIFYING INFORMATION/LIVING SITUATION Lawson Doyle resides at: [address] [place] [address]. This apartment is about 1hr & 10min (63 miles) away from . Pt has lived in this 1 bedroom apartment since November 2023. Pt denies any architectural barriers in the apartment. Pt reports he isindependent with all ADL's, he has a drivers license and a vehicle. Pt denies receiving any home health care or home health aide services at this time. There are no other residents in the home. There is 1 licensed driver/guide in the home and 1 working vehicle. Caregiver responsibilities: None Pets in the home: None TRANSPLANT LODGING PLANS FOR PATIENTS WHO LIVE 2.5 OR MORE HOURS AWAY FROM [facility]: Do you have the financial means to stay in the area for four weeks or more post- transplant? N/A COMPLIANCE Missed doctor appointments: Pt currently has a No Show rate of 33% (12 of 36.) Missed/shortened/rescheduled dialysis appointments: Pt stated he goes to all dialysis sessions and stays the full treatment. However, pt reports he missed 1 session about 1.5 weeks ago due to a family emergency. Knowledge of medications: Pt was able to tell SW the name and purpose of his medication. Medication Compliance: Pt stated he takes all medication as prescribed and he takes them straight from the bottles. Have you ever stopped taking any medication because you lost your insurance you could not afford it? Denies Have you stopped taking medication because you felt you didn't need it or because of side-effects? Denies Have you ever been transplanted, evaluated, or listed at another center: No Potential donor: None identified at this time. SW discussed the importance of medical compliance, including attending all medical appointments as scheduled, compliance with dialysis regimen, medication compliance, returning phone calls from medical staff and etc.. SW discussed possible outcomes of non-compliance. Pt verbalized understanding. SUBSTANCE USE/ABUSE Alcohol: Pt stated he may have 2-3 beers a month. Tobacco: Pt is currently smoking cigarettes. Pt stated he has been smoking for about 2-3 months and1 pack of cigarettes will last him one month. SW reminded pt that he needs to refrain from all tobacco products and it's a life long commitment. SW discussed possible outcomes of usage. Pt verbalized understanding. Exposure to second hand smoke: No Cocaine, THC, Heroin, or Other Recreational Drug Use: Pt denies ever using. Over the Counter Medications: Tylenol as needed. Opioids/Controlled Substances: None CAGE Questionnaire Have you ever felt you should cut down on your drinking? No Have people annoyed you by criticizing your drinking? No Have you ever felt bad or guilty about your drinking? No Have you ever had a drink first thing in the morning to steady your nerves or to get rid of a hangover (eye accountant certified public)? No LEGAL ENCOUNTERS Currently on probation or parole: No Past or current warrants for arrest: No Substance related legal problems: No Valid drivers license: Yes History of any legal issues not previously mentioned: No MENTAL HEALTH HISTORY Affect: Appropriate/Consistent Alert: Alert Orientation: person, place and time Cognitive Function: Cognition appears relatively intact Mood: Euthymic Are you having thoughts that you would be better off , or of hurting yourself in some way? Denies Current mental health diagnoses / current feelings of anxiety or depression: Pt denies any current or past mental health diagnoses. Pt denies any current symptoms/feelings of anxiety or depression. Psychiatric medication: None Counseling: Pt denies ever receiving counseling services. Psychiatric services: Pt denies ever receiving psychiatric services. History of suicide attempt(s) or ideation: Pt denies any current or past suicide attempt(s) or ideation. History of harming self: Denies History of harming others: Denies History of psychiatric hospitalization: Denies Is a referral to Transplant Psychiatry indicated for further evaluation or screening: No COPING Hobbies/Interests: Spending time with friends and playing video games. 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 He has been with his employer for about 5 months. Paid Status for Recovery: Pt will be eligible for short and long disability and FMLA benefits in October 2024. Pt stated if the transplant was to happen before October 2024 then he will apply re-apply for social security disability. (Pt is currently receiving social security disability, however, it will eventually terminate.) HEALTH INSURANCE/FINANCIAL Medical Insurance: [employer] [place] until 03/19/24. After March 2024 he will have [place] [employer] via his employer. Payer of Insurance Premium: N/A Prescription Coverage: [employer] Medicaid Insurance Policy [place]: Pt Medicare Status: Pt doesn't have Medicare at this time. GURPREET reviewed ESRD Medicare and the coordination of benefits period. Disability: Pt is currently receiving $1,343 monthly from SSD. Household Income: Pt's yearly income via his employer is $46,500. Savings: Yes, pt stated he has about $4,500 in savings. Do you have credit cards that could be used to pay for transplant medications in the event that youhave an $800 to $3000 co-pay? No Fund Raising: None at this time. Pt was given a list of the medications for Kidney [place] recipients to learn how his insurance coverageapplies. SW informed pt that he must be prepared to cover the copays of his immunosuppression and anti viral medications. Pt was also provided with information about fund raising. CAREGIVER/SUPPORT PLAN Primary Caregiver: Eduardo (pt's father) - Eduardo's commitment needs to be re-verified. Contact Number: [phone] Health Status and Availability of Caregiver: Eduardo previously reported being in good health. / Eduardo stated he is retired and is available time cycle operator to assist with caregiver/transportation support.Pt stated he would stay in Eduardo's home post transplant. Valid Stockroom Clerk's License/Working Vehicle: Yes / Yes Caregiver Substance Use: Denied Caregiver Mental Health: Denied Secondary Caregiver: Michael (pt's brother) - Michael's commitment was verified via phone contact. Contact Number: [phone] Health Status and Availability: Michael received a kidney transplant here at in 2009. Michael iscurrently on dialysis 3 days week (M,W,F.) / Michael stated he works mirror department supervisor and he lives about 1hr away from the pt and about 2hrs away from . Michael stated the pt could stay in his home for atleast 2 weeks post transplant. Michael reports the pt would have support from him and his . Valid Stockroom Clerk's License/Working Vehicle: No / No (Michael stated he is working on obtaining a drivers license. Michael reports his drives and she would be able to assist with support.) Caregiver Substance Use: Denies Caregiver Mental Health: Denies Michael stated the pt doesn't have a lot of support and pt's father Eduardo is not reliable nor doeshe have a drivers license. Michael reports he is going to talk to the pt regarding Eduardo being hisprimary support. Michael stated "I don't know why he would lie to you regarding his father having alicense." Michael stated he knows how much support is needed post transplant and he truly believes that Eduardo is not going to provide support to the pt.. SW now needs to speak to pt regarding his support plan. PSYCHOSOCIAL RISKS Adherence to Treatment Protocols: No, pt is currently smoking cigarettes. Ability to Understand Transplant Center's System of Care: Yes Active Psychiatric Diagnosis: No Financial Resources or Support: SW needs to speak to pt regarding his primary support. Body Image/Scar: No IMPRESSIONS/RECOMMENDATIONS Transplant social media strategist spoke with Lawson Doyle via telephone. At this time, pt is not yet a suitable psychosocial candidate. There are psychosocial concerns that could have a negative impact on the successful and sustained outcome of a kidney transplant. -Pt is currently smoking cigarettes and he needs to quit. Once pt has stopped he needs to provide anicotine/cotinine. -Pt's backup support Michael has been verified, however, Michael is currently on hemodialysis. Michael is a transplant recipient. Michael stated his would be able to assist with caregiver/transportation support. Michael stated the pt doesn't have a lot of support and pt's father Eduardo is not reliable nor does he have a drivers license. Michael reports he is going to talk to the pt regarding Eduardo being his primary support. Michael stated "I don't know why he would lie to you regarding his father having a license." Michael stated he knows how much support is needed post transplant and he truly believes that Eduardo is not going to provide support to the pt.. SW now needs to speak to pt regarding his support plan. Pt has no current barriers such as ETOH abuse, street drug use or mental health instability. Pt needs to provide CC with a copy of his new insurance card once he receives. Pt will need to contact hisinsurance provider to check the copays of the anti-viral and anti-rejection medication. GURPREET spoke TASHIA Hill at pt's dialysis unit and she stated the pt attends all sessions and stays the full treatment. Kira denies any current compliance concerns at this time. The patient should be scheduled for yearly visits and/or phone contact with social work for the following purposes: to review health insurance, changes of caregiver support, changes in financial/employment status, and to discuss any other updates/changes. We reviewed the follow up care sequence, including lab work twice a week and twice a week post transplant clinic appointments. We discussed the precautions to take because of being immunosuppressed. We also discussed the need to have a caregiver time cycle operator for 2 weeks post transplant. Lawson Doyle was advised that it is imperative to adhere to the medical regimen and recovery restrictions. Alba indicated understanding of this information. will send the SW education packet via [employer]. Lawson Doyle had the opportunity to discuss any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 Siddiqui - 01/03/2023 1:16 PM EDT Called patient with 8:00am arrival time at . Patient is aware he needs to go to the lab first forBMP and EKG. 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 documented in this encounterDayton Osteopathic Hospital10-13-2023 Miscellaneous Notes* Telephone Encounter - Carol Blount - 12/29/2022 10:38 AM EDT Dialysis Center Name:[facility] Contact (Name/Number): [phone]/[place] Was patient able to dialyze: yes Days/Times patients dialyzes:MWF Does the patient have a thrill:yes Type of Access: AVF Location (LUE/RUE/etc):RUE Problem:decreasing flows Recent Intervention (within 30 days): no Patient location & phone number (half-way): home Is the patient on asa/blood thinners:no Patient s [facility] Vascular Surgeon: Kenneth Comments (can patient be scheduled for fistulogram or sent to ER) Fistulagram Requested sooner than Kenneth available documented in this encounterDayton Osteopathic Hospital10-05-2023 Instructions* Patient Instructions* Nova Peterson RN - 12/21/2022 1:24 PM EDT As part of your transplant evaluation you are required to complete the following additional items. Please be aware that your evaluation will not be considered complete until all testing have been submitted. YOU WILL NOT BE LISTED ON THE TRANSPLANT LIST until these results have been received by our office, reviewed by the transplant committee and approved for transplant. You will be contacted withthe decision of the transplant committee at a future date. The following will be scheduled for you at a [facility] facility: CARDIAC: ECHO CANCER SCREENING: No additional testing is needed at this time. Patient is up to date with cancer screening. ADDITIONAL CONSULTS No additional consults at this time Imaging Studies: No additional imaging at this time Miscellaneous Items: [facility] allergy lab To check on your status of your evaluation, please contact your coordinator, Kash Pagna RN [phone]. Nova CALDWELL, RN Kidney/Pancreas Pre-Elevator Troubleshooter [facility] documented in this encounterDayton [facility] Hospital10-05-2023 History of Present illness Narrative* Aster Amador, RT(R) - 12/21/2022 11:30 AM EDT Radiology Service Progress Note PATIENT NAME: Lawson Doyle DATE OF SERVICE: December 21, 2022 TIME: 10:54 AM PATIENT IDENTITY VERIFICATION COMPLETED USING TWO (2) IDENTIFIERS: Name and Date of confirmedby patient verbally. FALL SCREENING: Has the patient had 2 falls in the last year or 1 fall with injury or currently using an Ambulatory Assistive Device (Walker, Cane, Wheelchair, Crutches, etc.)? No PATIENT GENDER DATA: Male PATIENT RELEVANT IMPLANT DATA REVIEWED: Not Applicable RADIOLOGY DEPARTMENT: General X-ray: Exam(s) Completed: Chest X-Ray PERIPHERAL IV DATA: Not applicable SIGNED BY: RT Tammy(R) December 21, 2022 10:54 AM documented in this encounterDayton Osteopathic Hospital10-05-2023 History of Present illness Narrative* Hua Wheeler MD - 12/21/2022 9:38 AM EDT [facility] Transplant Evaluation CC: Consultation for Kidney transplant evaluation. Referred by: Darryn Grant ([facility]) [address] [address] I will communicate with the referring provider by letter and/or shared electronic medical record. 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 Patient has a significant family history affecting his mother, brother, aunt, and cousins. Many of these family members have also received transplants. His Alports was never biopsy proven nor genetic testing completed, diagnosed solely on family history. Patient started dialysis 03/18/22 via R AV fistula. 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 Other significant history includes: HTN Anemia in chronic kidney disease Former smoker, quit 05/2022. 1p/week x 2 yrs UTI: No Kidney stones:No A/C: No Midodrine:No Abdominal surgeries: none Cardiovascular Disease: NO Peripheral Arterial Disease: (TIA non-embolic, CVA non-embolic, amputation, carotid artery stenosis, abnormal PVRs, claudication history, decreased pulses, etc.):No Stroke: NO Claudication: NO Carotid Artery Stenosis: NO Hypercoagulable (history of DVT/PE, miscarriages, prior use of anticoagulation, etc.):No Malignancy (including skin cancer): No DM: No Prior transplant: No CKD: Yes: Cause of CKD: Alport's Hemodialysis, Start date: 03/18/22 Living Donors: No Residual UO: WNL PAST MEDICAL HISTORY Diagnosis Date Complication of AV dialysis fistula 06/06/2022 HTN (hypertension) PAST SURGICAL HISTORY Procedure Laterality Date IR TUNNELLED DIALYSIS CATHETER TONGUE SURGERY HX Current Outpatient Medications Medication Sig RENAPLEX-D 800 mcg-12.5 mg -2,000 unit tab Take 1 tablet by mouth once daily. carvedilol (COREG) 12.5 mg tablet twice daily with meals. losartan (COZAAR) 100 mg tablet once daily. ondansetron orally disintegrating (ZOFRAN ODT) 4 mg disintegrating tablet sevelamer carbonate (RENVELA) 800 mg tablet once daily. doxercalciferol (HECTOROL INTRAVENOUS) 1 mcg. ondansetron HCl (ZOFRAN ORAL) Take 4 mg by mouth as needed. amLODIPine (NORVASC) 10 mg tablet once daily. (Patient not taking: Reported on 12/21/2022) melatonin 3 mg tablet Take 2 tablets by mouth. (Patient not taking: Reported on 12/21/2022) traMADol (ULTRAM) 50 mg tablet (Patient not taking: Reported on 12/21/2022) tuberculin,purif.prot.deriv. (TUBERSOL INTRADERM.) 0.1 mL by INTRADERMAL route. (Patient not taking: Reported on 12/21/2022) No current facility-administered medications for this visit. No family history on file. No family status information on file. Social History Tobacco Use Smoking status: Some Days Types: Cigars Smokeless tobacco: Never Vaping Use Vaping Use: Never used Substance Use Topics Alcohol use: Yes Comment: very rarely Drug use: Never Pre-transplant testing: Cardiac: Will need ECHO ECG: Completed on 12/21/22, results Pending CXR: Completed on 12/20/22, results Pending Colonoscopy: Not applicable Sensitizations: Prior transplant: No Blood transfusions: No Rabbit: Yes: Hunting and Dressing and Consumption Immunizations: HBV series: Not received, patient encouraged to obtain and Reason not received patient's choice Pneumovax: Received, date 05/22/22 Influenza vaccine: Not received, patient encouraged to obtain Covid vaccine: Not received, patient encouraged to obtain Nova SWIFTN, tub wash operator: I have seen the patient and confirmed the above findings and personally filed the HPI. REVIEW OF SYSTEMS ROS: Constitutional: negative for fatigue, weight loss or gain. Negative for fevers, chills, night sweats. HEENT: no oral lesions, no odynophagia, no visual difficulties Cardiac: negative for chest pain, pressure, angina, no edema Respiratory: negative for dyspnea, SOB, ROBERTSON. Gastrointestinal: negative for diarrhea, constipation, bowel habit change. Genitourinary: negative for dysuria, frequency Immunologic/Heme/Lymphatic: negative for anemia, easy bruising, lymph node enlargement Neurologic: No tremor, seizures, confusion. Skin: negative for rash, or other lesion Musculoskeletal: negative for arthritis, gout, myalgias Psychiatric: negative for behavioral change, mood disorders, depression Functional capacity: >4.0, <8.0 moderate effort such as carrying 15lb KARNOFSKY INDEX SCALE (Adult patients aged 18 and older) - Used to rate a patient's functional status before and after a medical procedure: 90 - Able to carry on normal activity: minor signs or symptoms of disease. PHYSICAL EXAMINATION: BP 99/73 (BP Site: Left Arm, BP Position: Sitting, BP Cuff Size: Regular Adult) Pulse 91 Temp 36.9 C (98.5 F) (Temporal) Ht 177.8 cm (5' 10") Wt 73 kg (160 lb 14.4 oz) SpO2 99% BMI 23.09 kg/m HEENT: anicteric, conj noninflamed NECK: supple, no JVP Lungs: CTA Bilaterally, no wheezes CV: Normal S1, S2. no pathologic murmurs, rubs, gallops ABD: soft, NT, ND Ext: no edema Labs/Studies: Glucose (mg/dL) Date Value 12/21/2022 94 Potassium (mmol/L) Date Value 12/21/2022 4.5 Sodium (mmol/L) Date Value 12/21/2022 139 Chloride (mmol/L) Date Value 12/21/2022 94 CO2 (mmol/L) Date Value 12/21/2022 31 Creatinine (mg/dL) Date Value 12/21/2022 8.39 BUN (mg/dL) Date Value 12/21/2022 31 Anion Gap (mmol/L) Date Value 12/21/2022 14 Calcium, Total (mg/dL) Date Value 12/21/2022 9.5 Protein, Total (g/dL) Date Value 12/21/2022 7.3 Albumin (g/dL) Date Value 12/21/2022 4.8 Bilirubin, Total (mg/dL) Date Value 12/21/2022 0.5 Alkaline Phosphatase (U/L) Date Value 12/21/2022 86 AST (U/L) Date Value 12/21/2022 9 ALT (U/L) Date Value 12/21/2022 15 Impression: 22 y/o WM , 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 Patient has a significant family history affectinghis mother, brother, aunt, and cousins. Many of these family members have also received transplants. His Alports was never biopsy proven nor genetic testing completed, diagnosed solely on family history. Patient started dialysis 03/18/22 via R AV fistula. He is functional Needs Echo and complete serology Pharmacy Consult: Not needed at this time We had the opportunity to discuss the following, specific for this patient: 1. Risks and benefits of transplantation including overall average increase in life expectancy and higher quality of life with transplantation for most but not all recipients; however, there is during the immediate transplant period a higher risk of that is variable depending on recipient anddonor factors. The time period to obtain equal risk to staying on the wait list, and gain of benefit from transplantation is also variable. 2. Types of donor organs discussed with patient, including Living donor (if appropriate), ,high KDPI, donor cardiac (DCD) Hepatitis C positive and increased risk donor types. The relative benefit of living donation over donor transplantation explained. We discussed the possibility of living donors for Mr. Doyle. 3. We had a lengthy discussion regarding immunosuppression following transplantation. I explained our usual protocols, drugs involved, administration and monitoring. This included the risks of possibly life threatening infection, , and malignancy following transplantation, possible need for dialysis and re-admission to the hospital. I explained the potential outcomes, including uncommon but catastrophic outcome related or not to kidney transplant itself. Opportunity to ask questions given. Patient expresses understanding of the information discussed. Communication with referring provider done by letter. Hua Wheeler MD documented in this [facility]Day[facility] History of Present illness Narrative* January Matias, BUSINESS CONSULTANT - 12/21/2022 8:37 AM EDT PSYCHOSOCIAL EVALUATION FOR KIDNEY TRANSPLANT (Assessment Via Telephone) Social Supports: Pt's primary support needs to be verified. Pt's sister will be backup support. Financial Concerns: [employer] Medicaid Compliance: RN at dialysis unit verified compliance with dialysis regimen. Mental Health: No mental health concerns at this time. Substance Use: Pt stated he stopped smoking cigars either April or May 2022. No current concerns regarding ETOH abuse or street drug use. SIPAT: 12 Once primary support is verified, pt will be a suitable psychosocial candidate. REFERRAL: Lawson Doyle was referred to Social Work for a psychosocial evaluation to establish if he would be a suitable candidate to receive a kidney transplant. He receives hemodialysis at [facility] on ,, starting at 8:15am and it runs for 4hrs.. The dialysis center phone number is . DIALYSIS START DATE: March 2022 This social work psychosocial evaluation was completed with Lawson Doyle via telephone on December 21, 2022. Pt was at alone today. Pt drove hisself to . Race/Gender: White / Male [place] Citizen: Yes IDENTIFYING INFORMATION/LIVING SITUATION Lawson Doyle resides at [id number] [place] [id number]. This home [place] about 38[place] (32 miles) away from . Pt has lived in this ranch style home with a basement for about 20yrs.. Pt deniesany architectural barriers in the home. Pt reports he is independent with all ADL's, he has a drivers licenses and a vehicle. Pt denies receiving any home health care or home health aide services at this time. Others in household are: Pt's father and grandmother. Eduardo-age 57, is reported to be in good health and he is retired. Eduardo is independent with all ADL's, he has a drivers licenses and a vehicle. Demetri-age 77, is reported to be in fair health. Pt stated Demetri is independent with all ADL's andshe no longer drives. There are 2 licensed drivers in the home and 2 working vehicles. Caregiver responsibilities: None Pets in the home: 2 snakes - SW reviewed precautions to take post transplant regarding animal care.Pt verbalized understanding. TRANSPLANT LODGING PLANS FOR PATIENTS WHO LIVE 2.5 OR MORE HOURS AWAY FROM [facility]: Do you have the financial means to stay in the area for four weeks or more post- transplant? N/A COMPREHENSION OF MEDICAL SITUATION Lawson Doyle reports that his kidney disease is due to Alport's Syndrome. Lawson Doyle was able to recall information that was presented to him during the kidney transplanteducational class. Lawson Doyle has good knowledge of the transplant process, the risks of transplant, and transplant medications. Missed doctor appointments: Pt currently has a CC No Show rate of 8% (1 of 13.) Missed/shortened/rescheduled dialysis appointments: Pt stated he goes to all dialysis sessions and he stays the full treatment. Knowledge of medications: Pt was able to tell SW the name and purpose of his medication. Medication Compliance: Pt stated he takes all medication as prescribed and he takes them straight from the bottles. Have you ever stopped taking any medication because you lost your insurance you could not afford it? Denies Have you stopped taking medication because you felt you didn't need it or because of side-effects? Denies Do you have any moral, episcopal, or ethical views against transplants or blood transfusions: No Have you ever been transplanted, evaluated, or listed at another center: Pt stated he is also goingto be evaluated at [facility]. Potential donor: None identified at this time. SUBSTANCE USE/ABUSE Alcohol: Pt stated he may have 2-3 beers a month. Pt denies any past alcohol abuse/over use. Tobacco: Pt stated he stopped smoking cigars either April or May 2022. Pt stated he smoked forabout 1.5yr and he smoked 2 cigars a month. Pt denies ever smoking cigarettes. SW informed pt that he needs to continue to refrain from all tobacco products. SW discussed possible outcomes of usage. Pt verbalized understanding. Exposure to second hand smoke: Yes, pt's grandmother smokes cigarettes. Illegal substances: Pt denies ever using. Over the Counter Medications: None Opioids/Controlled Substances: None CAGE Questionnaire Have you ever felt you should cut down on your drinking? No Have people annoyed you by criticizing your drinking? No Have you ever felt bad or guilty about your drinking? No Have you ever had a drink first thing in the morning to steady your nerves or to get rid of a hangover (eye accountant certified public)? No LEGAL ENCOUNTERS Currently on probation or parole: No Past or current warrants for arrest: No Substance related legal problems: No Valid drivers license: Yes History of any legal issues not previously mentioned: No MENTAL HEALTH HISTORY Affect: Appropriate/Consistent Alert: Alert Orientation: person, place and earnest Cognitive Function: Cognition appears relatively intact Mood: Euthymic Are you having thoughts that you would be better off , or of hurting yourself in some way? Denies Current mental health diagnoses / current feelings of anxiety or depression: Pt denies any current or past mental health diagnoses. Pt denies any current symptoms/feelings of anxiety or depression. Psychiatric medication: Pt denies ever being prescribed psychiatric medication. Counseling: Pt denies ever receiving counseling services. Psychiatric services: Pt denies ever receiving psychiatric services. History of suicide attempt(s) or ideation: Pt denies any current or past suicide attempt(s) or ideation. History of harming self: Denies History of harming others: Denies History of psychiatric hospitalization: Denies Any family history of mental health diagnoses: Denies Is a referral to Transplant Psychiatry indicated for further evaluation or screening: No COPING Hobbies/Interests: Spending time with friends. SOCIAL NARRATIVE Lawson Doyle was born in [place], [place] and raised in [place], [place]. He is 22 years of age. Lawson Doyle was raised by his biological mother and father. Parental Information: Mother: Passed at the age of 45 or 44, due to kidney failure, cancer and other medical conditions. Sibling Information: Pt has 1 older brother whom is a kidney transplant recipient and 1 older sister. Relationship History & Current Status: Pt stated he is single and has never been . Children: None EDUCATION Highest Educational Level: High school diploma. Lawson Doyle denies academic problems in school. 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 Pt has been with his employer for about 2 months. Paid Status for Recovery: Pt applied for social security disability in August 2022 and he is currently waiting on a determination. Pt reports he would have to take time off with no pay from his employer. HEALTH INSURANCE/FINANCIAL Medical Insurance: [employer] Medicaid GURPREET encouraged pt to stay on top of yearly Medicaid redetermination in effort to keep this benefit. Pt verbalized understanding. Payer of Insurance Premium: N/A Prescription Coverage: [employer] Medicaid Insurance Policy [place]: Pt Medicare Status: Pt doesn't have Medicare at this time. GURPREET reviewed ESRD Medicare and the coordination of benefits period. Disability: Pt applied for social security disability in August 2022 and he is currently waiting on adetermination. Household Income: Pt's monthly income via his employer is about $600. Savings: Yes, pt stated he has about $1,500 in savings. Do you have credit cards that could be used to pay for transplant medications in the event that youhave an $800 to $3000 co-pay? No Fund Raising: None at this time. Pt was given a list of the medications for Kidney [place] recipients to learn how his insurance coverageapplies. GURPREET informed pt that he must be prepared to cover the copays of his immunosuppression and anti viral medications. Pt was also provided with information about fund raising. CAREGIVER/SUPPORT PLAN Primary Caregiver: Eduardo (pt's father) - Eduardo's commitment needs to be verified. Contact Number: [phone] Health Status and Availability of Caregiver: Eduardo is reported to be in good health. / Pt stated Eduardo is retired and is available time cycle operator to assist with caregiver/transportation support. Valid Stockroom Clerk's License/Working Vehicle: Yes / Yes Caregiver Substance Use: Per pt, no. Caregiver Mental Health: Per pt, no. Secondary Caregiver: Nina (pt's sister) - Nina's commitment was verified via phone contact. Contact Number: [phone] Health Status and Availability: Nina reports being in good health and she is 34yrs old. / Nina stated she works mirror department supervisor M,W,F from 6am to 12pm. Nina reports she can take time off, if and when needed in order to assist with caregiver/transportation support. Nina reports she lives [id number] from pt.. Valid Stockroom Clerk's License/Working Vehicle: Yes / Yes Caregiver Substance Use: Denies Caregiver Mental Health: Denies PSYCHOSOCIAL RISKS Adherence to Treatment Protocols: Yes Ability to Understand Transplant Center's System of Care: Yes Active Psychiatric Diagnosis: No Financial Resources or Support: Pt identified primary support and his commitment needs to be verified. Pt needs to keep SW updated regarding his SSD determination. Body Image/Scar: No IMPRESSIONS/RECOMMENDATIONS Transplant social media strategist spoke with Lawson Doyle via telephone. At this time, pt is not yet a suitable psychosocial candidate. -Pt identified primary support and his commitment needs to be verified. Pt stated his father is currently on vacation and once his father comes back he will request that his father contact SW in order for SW to verify his commitment. Once primary support is verified pt will be a suitable psychosocial candidate. Pt needs to keep SW updated regarding his SSD determination. There are no current psychosocial concerns that could have a negative impact on the successful and sustained outcome of a kidney transplant. Pt was talkative and cooperative while speaking to SW. Pt was very knowledgeable regarding his health and kidney transplant. Pt has no current barriers such as ETOH abuse, street drug use or mental health instability. Pt stated he stopped smoking cigars in either April or May 2022. SW spoke to Albertina LAO at pt's dialysis unit and she reports the pt attends all sessions, he stays the full treatment and some of his labs are as follows: phosphorus-4.5; albumin-4.4. and potassium-5.0. Albertina stated the pt "does great and he is very responsible." If listed, the patient should be scheduled for yearly visits or phone contact with social work for the following purposes: to review health insurance, changes of caregiver support, changes in financial/employment status, and to discuss any other updates/changes. We reviewed the follow up care sequence, including lab work twice a week and twice a week post transplant clinic appointments. We discussed the precautions to take because of being immunosuppressed. We also discussed the need to have a caregiver time cycle operator for 2 weeks post transplant. Lawson Doyle was advised that it is imperative to adhere to the medical regimen and recovery restrictions. Alba indicated understanding of this information. Lawson Doyle had the opportunity to discuss any issues and questions. Patient was given information about the kidney transplant process and fund raising options. The patient was given the phone number of the transplant social media strategist to address future concerns. YESI Braun-S Transplant Medical Office Receptionist Assistant documented in this encounterDay[facility]10-02-2023 Miscellaneous Notes* Telephone Encounter - Digna Burgos MA - 12/18/2022 2:34 PM EDT Left message for patient reminding of appointment on 12/21/2022. Stated that it is important to arrive on time as if late they may be asked to reschedule the entire day. Callback number was provided Digna Burgos MA documented in this encounterDayton [facility] Hospital08-21-2023 Miscellaneous Notes* Telephone Encounter - German Trotter RN - 11/06/2022 12:15 PM EDT Pt returned call No issues using fistula, received treatment today Cancelled OV with Dr Cooper as well as previously scheduled fistulogram on 11/09 * Telephone Encounter - German Trotter RN - 11/06/2022 9:46 AM EDT Called pt, no answer Left detailed VM asking if pt is having issues with fistula after 10/31 fistulogram If no issues, can cancel appt today on 11/06 Left call back number German Trotter RN documented in this encounterDayton Osteopathic Hospital08-14-2023 Miscellaneous Notes* Telephone Encounter - Dona Gil - 10/30/2022 11:27 AM EDT Spoke with patient and scheduled him for a TDC placement on Monday October 31, [address] Cooper at [facility]. Patient advised to arrive at 1:00 PM, NPO for 6 hours and will need a driver/guide. Dona Gil * Telephone Encounter - German Trotter RN - 10/30/2022 11:15 AM EDT Called and spoke to Michell No availability for TDC insertion today Informed her that Dr. Cooper would like TDC insertion tomorrow then OV if okay with nephrology She states that she will discuss with nephrology Fisher Weir will call pt and arrange procedure German Trotter RN * Telephone Encounter - Dona Gil - 10/30/2022 10:07 AM EDT Michell [phone] from [facility] called and stated that patient is not able to get any treatment.He is scheduled for a Fistulagram on November 09, 2022. Please advise documented in this encounterDayton [facility] Hospital08-10-2023 Miscellaneous Notes* Telephone Encounter - Chrissie Siddiqui - 10/26/2022 12:05 PM EDT [facility] called and said patient has had a drop in access flows and prolonged bleeding after dialysis and requested a fistulgram be scheduled on a or with Dr Cooper. Scheduled for 11/09 at [facility]. 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 Per patient he doesn't take asa or blood thinners. documented in this encounterDayton Osteopathic Hospital08-09-2023 Miscellaneous Notes* Telephone Encounter - Chrissie Siddiqui - 10/25/2022 3:37 PM EDT Yuliet from [facility] called and stated that patient needs to be scheduled for fistulogram due to dopin access and prolonged bleeding. Scheduled 11/[address] Cooper at [facility]. Patient has dialysis MWFa. Called patient left for him to call us back to schedule procedure. documented in this encounterDayton Osteopathic Hospital08-08-2023 History of Present illness Narrative* Shannan Schwartz RN - 10/24/2022 1:40 PM EDT New Referral Referring Physician Darryn Grant Organ Type kidney ESRD Yes Alport Syndrome Hx: HTN Dialysis Dependant? Yes 03-18-22 Name of Dialysis Facility: [facility] Diabetes no Smoking Quit 05/2022 1ppweek x 2 yrs Current BMI 23.7 Previous Transplant no Date of Last Transplant N/a Currently Listed? Referral at [place] Willing to accept blood transfusion? yes Potential Living Donor? No (CT abd/pel done @ 03-04-22; requested images) Full Transplant Evaluation? yes Malnutrition Screening Tool (MST) 1. Have you lost weight without trying? No- 0 Weight loss score: 0 2. Have you been eating poorly in the last week because of a decreased appetite? No- 0 Appetite score: 0 Total MST score (weight loss + appetite scores): 0 Score of 2 or more = referral to registered dietitian for an individual appointment Shannan Schwartz RN Pre-Kidney & Pancreas Elevator Troubleshooter [facility] documented in this encounterDayton Osteopathic Hospital07-03-2023 NoteTC received second referral it was scanned in to media and and referral received letter sent. Lou Michael RNUnOur Lady of [facility]cy [facility]06-28-2023 Procedure note* Lui Cooper MD - 09/13/2022 6:06 PM EDTProcedure(s): F REMOVAL TUNNELED CV CATHETER Pre-Procedure Diagnose(s): Mechanical complication of dialysis catheter, initial encounter (HCC) Post-Procedure Diagnose(s): Mechanical complication of dialysis catheter, initial encounter (HCC) OPERATIVE/PROCEDURE REPORT LOG ID: * No surgery found * SURGERY/PROCEDURE DATE:09/13/22 INCISION/PROCEDURE START TIME: 1603 INCISION CLOSE/PROCEDURE END TIME: 1611 SURGEON(S)/PROCEDURALIST(S) AND IN PROCESSING INSTRUCTOR(S): Lui Cooper MD SURGERY/PROCEDURE(S): Removal of tunneled dialysis catheter ANESTHESIA: * No surgery found * SURGERY/PROCEDURE DETAILS: After informed consent, the patient was identified and placed on the table in semirecumbent supine position. The existing catheter in the right chest and neck was prepared and draped in the usual fashion. 1% plain lidocaine was used for local anesthesia. Sharp dissection was used to free the subcutaneous cuff from surrounding tissue. After sufficient mobilization of thecuff, the catheter was completely externalized and discarded. Hemostasis was secured with direct manual pressure. Antibiotic ointment and sterile bandage were applied to the catheter site. The patient was discharged in satisfactory condition. There were no complications and the procedure was well tolerated. PRE-OP/PRE-PROCEDURE DIAGNOSIS: Mechanical complication dialysis catheter POST-OP/POST-PROCEDURE DIAGNOSIS: Same as Preop ESTIMATED BLOOD LOSS: 2 mls SPECIMENS: None IMPLANTABLE DEVICES: NONE DRAINS: None COMPLICATIONS: None CLOSURE TECHNIQUE: Bandages PARTICIPATION IN SURGERY/PROCEDURE: I/primary surgeon/proceduralist performed the entire procedure. SIGNATURE: Lui Cooper MD PATIENT NAME: Lawson Doyle DATE: September 13, 2022 TIME: 6:07 PM documented in this encounterDay[facility]06-27-[facility]23 Miscellaneous Notes* Telephone Encounter - Ector Casasdomingojose m - 09/12/2022 3:59 PM EDT Called and spoke with patient regarding kidney transplant, intake completed, and to nurse coordinator for review. Ector Casasdomingojose m Pre- transplant intake form Date: 09/12/2022 Spoke with: Patient EMAIL: [place] Gerald M/F: M Work Status: Not working Race: White Marital Status: Single Ht/Wt: BMI: 5'10" 165 Lbs; BMI = 23.7 Weight loss without trying? No Decreased Appetite? No Nutrition = 0 Assistive devices? No Activity Level? Moderate Smoking? Yes Quit date? Mach 2022 Years? 2 Packs? 1 pack per week O2? COPD/Emphysema? No to all Transfusions, Willing to accept? Yes Dialysis? [facility], [place], [place] Days? -- Start date?03/18/2022 Referring doctor? DARRYN GRANT Previous Transplant? No Nephrectomy? No Evaluation elsewhere? Listed? No No Kidney Biopsy? Liver Biopsy? Yes - 2017 done at [place], [place] No Cirrhosis? Hepatitis? HIV? Cancer? No No No No Diabetes 1 or 2? No Hypertension? CAD? RI? CABG/STENTS? Yes No No No Stress? Echo? Cath? No No No DVT/PE? No CVA/TIA? No Lupus? NoSickle/Trait? NA Blood thinner? No ETOH? Drug use? Psych disorder? 1 beer per year No No Prior Surgeries? Kid Bx, Fistula (R) Arm and uses for dialysis, Tongue clipped as a child Living Donors? No documented in this encounterDayton [facility] Hospital06-21-2023 Miscellaneous Notes* Telephone Encounter - Ector Red - 09/06/2022 10:19 AM EDT Returned call to Lawson Doyle without success regarding their previous call. Voicemail message wasleft for patient to call our office. Ector Red * Telephone Encounter - Ector Red - 08/24/2022 12:25 PM EDT 2nd call to Lawson Doyle without success regarding referral-Kidney Transplant. Voicemail message was left for patient to call our office, letter sent. Ector Red * Telephone Encounter - Ector Red - 08/19/2022 3:58 PM EDT Called Lawson Doyle without success regarding referral-Kidney Transplant. Voicemail message was left for patient to call our office. Ector Red documented in this encounterDayton [facility] Hospital06-20-2023 Miscellaneous Notes* Telephone Encounter - MAGDALENA Galan - 09/05/2022 1:18 PM EDT Pt returning gurmeet for intake documented in this [facility]06-16-2023 Miscellaneous Notes* Telephone Encounter - Ector Red - 09/01/2022 9:25 AM EDT Called Lawson Doyle without success regarding their previous call-Kidney Transplant Referral. Voicemail message was left for patient to call our office. Ector Red * Telephone Encounter - MAGDALENA Galan - 08/29/2022 1:25 PM EDT Pt returning call for intake. documented in this [facility]06-08-2023 Miscellaneous Notes* Telephone Encounter - German Trotter RN - 08/24/2022 3:50 PM EDT Spoke to Michell at [employer]. No issues using R AVF, OK to remove. German Trotter RN documented in this [facility]03-20-2023 Miscellaneous Notes* Telephone Encounter - Nickie Larson - 06/05/2022 10:32 AM EDT Procedure date: 06/06/2022 Spoke with: Patient Arrival time: 8:30 am Hospital: [facility] first: No NPO time: 6 hours Must have responsible adult driver/guide. May take Blood pressure and heart medications in the morning with small sip of water. documented in this encounterDayton Osteopathic Hospital03-13-2023 History of Present illness Narrative* Lui Cooper MD - 05/29/2022 11:41 AM EDT Images from the original note were not included. [facility] DEPARTMENT OF VASCULAR SURGERY OUTPATIENT VISIT DATE May 29, 2022 OUTPATIENT VISIT TYPE ESTABLISHED SERVICE DATE: 05/29/2022 SERVICE TIME: 11:42 AM PRIMARY CARE PHYSICIAN: Ivette Manzano MD HISTORY OF PRESENT ILLNESS: Mr. Doyle is a 22 year old male who presents today for a vascular surgery follow-up visit after R bc avf. Patient with no complaints related to surgery. No past medical history on file. PAST SURGICAL HISTORY Procedure Laterality Date IR TUNNELLED DIALYSIS CATHETER TONGUE SURGERY HX SOCIAL HISTORY Social History Tobacco Use Smoking status: Some Days Types: Cigars Smokeless tobacco: Never Substance Use Topics Alcohol use: Yes Comment: very rarely MEDICATIONS: amLODIPine (NORVASC) 10 mg tablet RENAPLEX-D 800 mcg-12.5 mg -2,000 unit tab Take 1 tablet by mouth once daily. carvedilol (COREG) 12.5 mg tablet losartan (COZAAR) 100 mg tablet melatonin 3 mg tablet Take 2 tablets by mouth. sevelamer carbonate (RENVELA) 800 mg tablet ondansetron HCl (ZOFRAN ORAL) 4 mg. oxyCODONE-acetaminophen (PERCOCET) 5-325 mg tablet Take 1 tablet by mouth every 8 hours as needed for pain for up to 12 doses. ondansetron orally disintegrating (ZOFRAN ODT) 4 mg disintegrating tablet traMADol (ULTRAM) 50 mg tablet tuberculin,purif.prot.deriv. (TUBERSOL INTRADERM.) 0.1 mL by INTRADERMAL route. doxercalciferol (HECTOROL INTRAVENOUS) 1 mcg. ALLERGIES: ALLERGIES No Known Allergies PHYSICAL EXAM: BP 126/88 Pulse 71 R arm avf with good thrill. Palp R radial pulse. Easy to palpate fistula in upper arm. Diagnostic tests reviewed for today's visit: Non-Invasive Vascular Laboratory [facility] Upper Extremity Arterial Duplex Unilateral - Right Date of service/time: 05/29/2022 10:02:32 AM Name: MR. LAWSON DOYLE Date of : 2000 Age: 22 years Gender: M Clinical Indication S/P Right Brachiocephalic arteriovenous fistula 04/25/2022. TECHNIQUE -------- An arterial duplex ultrasound examination was performed, including grayscale imaging and color Doppler and spectral Doppler examination of the below mentioned arteries. FINDINGS -------- RIGHT SIDE Brachial artery mid: PSV: 222 cm/s. EDV: 97 cm/s. Brachial artery distal: PSV: 206 cm/s. EDV: 121 cm/s. VESSEL/GRAFT Brachiocephalic fistula proximal anastomotic site: PSV: 667 cm/s. EDV: 393 cm/s. Brachiocephalic fistula distal upper arm: PSV: 680 cm/s. EDV: 449 cm/s. Brachiocephalic fistula mid upper arm: PSV: 164 cm/s. EDV: 120 cm/s. Brachiocephalic fistula proximal upper arm: PSV: 173 cm/s. EDV: 102 cm/s. Brachiocephalic fistula shoulder: PSV: 175 cm/s. EDV: 122 cm/s. Brachiocephalic fistula venous outflow: PSV: 138 cm/s. EDV: 98 cm/s. Volume flow Brachial artery 1st measurement: 875 ml/min Brachial artery 2nd measurement: 792 ml/min Brachial artery 3rd measurement: 864 ml/min Volume flow estimate for arteriovenous fistula is: 744 ml/min Diameter/Depth Fistula arterial anastomosis: Diameter 0.58 cm. Depth 1.53 cm. Fistula proximal: Diameter 0.36 cm. Depth 0.43 cm. Fistula mid: Diameter 0.64 cm. Depth 0.93 cm. Fistula distal: Diameter 0.51 cm. Depth 0.60 cm. IMPRESSION RIGHT SIDE Brachial artery : patent . Brachiocephalic fistula proximal anastomotic site: 50-99% stenosis . Subclavian vein : patent . Brachiocephalic fistula has adequate flow for dialysis. Technologist: Roberta Galvez RVT Ordering physician: LUI COOPER Interpreting physician: Lui Cooper MD, RPVI ESSION: Mr. 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 Otherwise good flowin avf with adequate diameter for cannulation. Will proceed with fistulogram and intervention polina.Patient can return to work and will arrange for fistulogram. 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 Medical Decision Making: Medical Decision Making Level: 1 - N/A SIGNATURE: Lui Cooper MD PATIENT NAME: Lawson Doyle DATE: May 29, 2022 TIME: 11:42 AM documented in this encounterDayton Osteopathic Hospital03-13-2023 Miscellaneous Notes* Telephone Encounter - Dona Gil - 05/29/2022 11:31 AM EDT Patient in office today and we scheduled a Right arm fistulagram with Dr. Cooper on Monday June 06, 2022. Patient is aware we will call him the day before with arrival time, NPO for 6 hours prior toprocedure and will need a driver/guide. Dona Gil documented in this encounterDayton Osteopathic Hospital03-06-2023 History of Present illness Narrative* Lui Cooper MD - 05/22/2022 11:28 AM EST Images from the original note were not included. [facility] DEPARTMENT OF VASCULAR SURGERY OUTPATIENT VISIT DATE May 22, 2022 OUTPATIENT VISIT TYPE ESTABLISHED SERVICE DATE: 05/22/2022 SERVICE TIME: 11:28 AM PRIMARY CARE PHYSICIAN: Ivette Manzano MD HISTORY OF PRESENT ILLNESS: Mr. Doyle is a 22 year old male who presents today for a vascular surgery follow-up visit after undergoing right brachiocephalic AV fistula. Patient has no complaints related to surgery. No past medical history on file. PAST SURGICAL HISTORY Procedure Laterality Date IR TUNNELLED DIALYSIS CATHETER TONGUE SURGERY HX SOCIAL HISTORY Social History Tobacco Use Smoking status: Some Days Types: Cigars Smokeless tobacco: Never Substance Use Topics Alcohol use: Yes Comment: very rarely MEDICATIONS: amLODIPine (NORVASC) 10 mg tablet RENAPLEX-D 800 mcg-12.5 mg -2,000 unit tab Take 1 tablet by mouth once daily. carvedilol (COREG) 12.5 mg tablet losartan (COZAAR) 100 mg tablet melatonin 3 mg tablet Take 2 tablets by mouth. ondansetron orally disintegrating (ZOFRAN ODT) 4 mg disintegrating tablet sevelamer carbonate (RENVELA) 800 mg tablet tuberculin,purif.prot.deriv. (TUBERSOL INTRADERM.) 0.1 mL by INTRADERMAL route. doxercalciferol (HECTOROL INTRAVENOUS) 1 mcg. ondansetron HCl (ZOFRAN ORAL) 4 mg. oxyCODONE-acetaminophen (PERCOCET) 5-325 mg tablet Take 1 tablet by mouth every 8 hours as needed for pain for up to 12 doses. traMADol (ULTRAM) 50 mg tablet ALLERGIES: ALLERGIES No Known Allergies PHYSICAL EXAM: Ht 177.8 cm (5' 10") Wt 73.5 kg (162 lb) BMI 23.24 kg/m Right arm fistula is patent with good thrill. Incisions well-healed. Right radial pulse is palpable. Fistula is not that easy to palpate in the upper arm diameter is about 5 mm. IMPRESSION: Mr. Doyle is a 22 year old male status post right brachiocephalic AV fistula. We will get duplex of fistula and return for review. May require ancillary procedure to make the fistula usable. Medical Decision Making: Medical Decision Making Level: 1 - N/A SIGNATURE: Lui Cooper MD PATIENT NAME: Lawson Doyle DATE: May 22, 2022 TIME: 11:28 AM documented in this encounterDayton Osteopathic Hospital02-02-2023 Instructions* Patient Instructions* Kathy Kolb PA-C - 04/20/2022 9:29 AM EST PATIENT PREOPERATIVE INSTRUCTIONS Lui Cooper* has scheduled you for your procedure at this surgery center: [facility]: [phone] --[id number] [id number]. Please check in on the1st floor at registration desk 6. Please read below carefully for your personalized instructions. Dietary Restrictions: - No solid food after midnight. - You may have 12 ounces of clear liquids (water, clear juices such as apple juice or gatorade, carbonated beverages, clear tea, black coffee, jello) until 2 hours before scheduled arrival at facility. Medications: Unless instructed differently below, stay on all of your medications until your surgery. Approved medications to take the morning of surgery with a sip of water: Carvedilol, Amlodipine DO NOT TAKE YOUR Losartan THE NIGHT BEFORE OR MORNING OF SURGERY. If you start any new medications after today's visit, please contact the surgeon's office. Blood Thinning Medications: - Stop NSAIDS (Ibuprofen, Advil, Aleve, Motrin, Celebrex, Mobic, etc.) 7 days before surgery, as directed by your surgeon. - Stop Aspirin 7 days before surgery, as directed by your surgeon. - Stop Vitamin E, ALL multi-vitamins, herbals and dietary supplements 7 days before surgery. - You may take Tylenol (Acetaminophen) or any of your pain medications that do not contain aspirin or NSAIDS as needed. Important Reminders: If you are on dialysis, please check with your dialysis center or rug hooker hand to see if any adjustments need to be made to your schedule for the week of your surgery - Candy, mints, and tobacco products are NOT permitted the morning of surgery. - Hearing aids, dentures and glasses may be worn the morning of surgery. - NO jewelry, body piercings, makeup, hairpins or contacts are to be worn the day of surgery. If you develop symptoms such as a fever, cold, or flu, or have other changes to your health within TWO DAYS of scheduled surgery or the morning of surgery, please contact the surgery center above. Personal Belongings: -Please have photo ID and insurance cards. -If you do not have a copy of advance directives on file with us, please bring a copy with you on the day of surgery. - Leave ALL valuables and money at home or with family members. For Outpatient Procedures: - YOU MUST HAVE A RESPONSIBLE COMPENSATION ADJUSTER TAKE YOU HOME. A BARREL RAISER OR MANAGER ACQUISITION CANNOT BE MADE A RESPONSIBLE COMPENSATION ADJUSTER. - We recommend that a responsible person stays with you overnight to take care of you. - You cannot stay in a hotel alone after outpatient surgery. You will not be permitted to have yoursurgery, if you do not have someone to take care of you. Arrival Time for Surgery: - The Surgery Center or hospital where you are having surgery will call the afternoon before surgery (or Sunday for Sunday surgery) with a scheduled arrival time. - If you have not heard by 4 pm, please contact the surgery center above. Please be aware that emergency situations arise, which may delay or change your surgical time. If this happens, we will notify you as soon as possible and regret any inconvenience. If you already have an Advance Directive, please fax a copy to [phone] or email to for it to be added to your chart. If you do not have an Advance Directive, you can find the appropriate form and more information at [email or web address]. We recommend that youcomplete the Advance Directive form found on the website and bring it with you the day of your surgery. It can be witnessed and scanned into your chart that day. Kathy Kolb PA-C documented in this encounterDayton Osteopathic Hospital02-02-2023 History and physical note * Kathy Kolb PA-C - 04/20/2022 9:22 AM EST HISTORY AND PHYSICAL EXAMINATION SERVICE DATE: 04/20/2022 SERVICE TIME: 9:58 AM PRIMARY CARE PHYSICIAN: No primary care provider on file. REASON FOR VISIT: Lawson Doyle is a 22 year old male who is scheduled for Procedure(s) with comments: CREATION FISTULA ARTERIOVENOUS EXTREMITY UPPER (Right) - No radiology rn needed at the request ofDr. Lui Cooper for consultation. My final recommendation will be communicated back to the requesting physician by way of shared medical record or letter. Subjective The patient has the following: ACTIVE PROBLEM LIST Alport Syndrome Acute Renal Failure (Hcc) End Stage Renal Disease (Hcc) Hypertensive Urgency Iron Deficiency Secondary Hyperparathyroidism of Renal Origin (Hcc) Stage 4 Chronic Kidney Disease (Hcc) Anemia Due to Chronic Kidney Disease Primary Hypertension COVID-19 Immunization Status Overdue - COVID-19 VACCINE (1) Overdue - never done No completion, postpone, frequency change, or communication history exists for this topic. CHIEF COMPLAINT: pre op exam HPI: Patient is a 22 yo male who presents to [facility] for the above procedure. He reports history of Alport syndrome, resulting in ESRD and currently on HD via [facility] MWF. Denies any CP, SOB, fever, chills, n/v/d, GUERRIER or dizziness. Recommended above procedure and elects to proceed. REVIEW OF SYSTEMS: General: No weight loss, malaise or fevers. Neurological: No history of TIA's, stroke, ELECTRIC NEEDLE SPECIALIST tumor, impaired sensorium, hemiplegia, paraplegia orquadraplegia. No neurological symptoms or problems. Respiratory: No history of current cough or dyspnea, or pneumonia in the past 6 weeks. No history of respiratory/pulmonary symptoms or problems. Cardiovascular: Positive for: hypertension Negative for: abdominal aortic aneurysm, AICD/PPM, angina, anticoagulation therapy, arrhythmia, atrial fibrillation, CAD, chest pain, CHF, congenital heart defect, DVT/PE, hyperlipidemia, recent RI, murmur/valvular heart disease, PTCA, PVD, open heart surgery and valve surgery. GI: No history of GI symptoms or problems. No history of esophageal varices, recent ascites, or ETOH greater than 2 drinks per day. : Positive for: on dialysis and renal failure (ESRD, +Alports). The dialysis type is HD. Patient's renal failure is chronic. Negative for: BPH, decreased stream, dysuria, flank pain, frequent urination, hematuria, hesitancy,urinary incontinence, indwelling catheter, nephrolithiasis, nocturia >1 time per night, self catheterization, urgency and urinary tract infection. Endocrine: No history of diabetes. Has not taken steroids within the past 30 days. No history of endocrinological symptoms or problems. Hematology: Positive for: anemia and anemia associated with chronic kidney disease. Negative for: bruises/bleeds easily, factor V Leiden, hemophilia, thrombocytopenia, von Willebrand disease, transfusion of at least 4 units within 72 hours prior to surgery and chronic anti-coagulation/platelet meds. Oncology: No history of CA metastasis, chemo within 30 days, or radiotherapy within 90 days. No history of oncological symptoms or problems. Psych: No history of psychiatric symptoms or problems. Musculoskeletal: Negative for joint pain or swelling, back pain or muscle pain. Skin: Negative for lesions, rash and itching. History reviewed. No pertinent past medical history. PAST SURGICAL HISTORY Procedure Laterality Date IR TUNNELLED DIALYSIS CATHETER TONGUE SURGERY HX History reviewed. No pertinent family history. Social History Tobacco Use Smoking status: Some Days Types: Cigars Smokeless tobacco: Never Substance Use Topics Alcohol use: Yes Comment: very rarely Prior to Admission medications as of 04/20/22 5966 Medication Sig Last Dose Taking amLODIPine (NORVASC) 10 mg tablet Taking Yes RENAPLEX-D 800 mcg-12.5 mg -2,000 unit tab Take 1 tablet by mouth once daily. Taking Yes carvedilol (COREG) 12.5 mg tablet Taking Yes losartan (COZAAR) 100 mg tablet Taking Yes melatonin 3 mg tablet Take 2 tablets by mouth. Taking Yes ondansetron orally disintegrating (ZOFRAN ODT) 4 mg disintegrating tablet Taking Yes sevelamer carbonate (RENVELA) 800 mg tablet Taking Yes traMADol (ULTRAM) 50 mg tablet Taking Yes tuberculin,purif.prot.deriv. (TUBERSOL INTRADERM.) 0.1 mL by INTRADERMAL route. Taking Yes doxercalciferol (HECTOROL INTRAVENOUS) 1 mcg. Taking Yes ondansetron HCl (ZOFRAN ORAL) 4 mg. Taking Yes amLODIPine (NORVASC) 5 mg tablet Take by mouth. Patient not taking: Reported on 04/20/2022 Not Taking cefUROXime (CEFTIN) 250 mg tablet Not Taking cloNIDine HCl (CATAPRES) 0.1 mg tablet Not Taking methoxy peg-epoetin beta (MIRCERA INJECTION) 30 mcg. Patient not taking: Reported on 04/20/2022 Not Taking multivitamin-ferrous fumarate-folic acid (MULTI COMPLETE WITH IRON) Take 1 tablet by mouth. Patient not taking: Reported on 04/20/[address] (PROTONIX) 40 mg tablet Not Taking clindamycin (CLEOCIN) 300 mg capsule Not Taking No medication comments found. ALLERGIES Not on File Objective PHYSICAL EXAM: General: alert and oriented and healthy appearance. Pertinent negatives noted - not distressed. Skin: normal color, no rash or lesions. HEENT: pupils equal round and pupils reactive to light. Cardiovascular: regular rate and rhythm, normal S1 and S2, no rub, murmurs, or gallop. Pulse characterized as regular. Respiratory: normal breath sounds, no wheezes or crackles. No chest wall deformity or tenderness. Abdomen: bowel sounds present and soft. Extremities: no deformity, no edema or tenderness, no joint swelling or clubbing. Neurological: normal cognition and motor skills. Gait normal. No weakness or sensory deficit. PAIN ASSESSMENT: VITALS: BP 130/98 Pulse 99 Temp (Src) 98.6 (Temporal Artery) Resp 17 Ht 5' 10" (1.78m) Wt 161 lb (73.0kg) SpO2 99% BMI 23.10 kg/(m^2). Diagnostic tests reviewed for today's visit: Lab Value Units Date High Low HB No results within date range. HCT No results within date range. WBC No results within date range. PLT No results within date range. NA No results within date range. K No results within date range. GLUC No results within date range. BUN No results within date range. CREAT No results within date range. PTSEC No results within date range. INR No results within date range. APTT No results within date range. ALT No results within date range. AST No results within date range. TBILI No results within date range. TSH No results within date range. Lab Value Units Date High Low HCGQT No results within date range. UHCG No results within date range. HCG, BODY* No results within date range. Lab Value Units Date High Low ABORHD No results within date range. ABSCREEN No results within date range. No results found for: HBA1C No results found for this or any previous visit (from the past 8760 hour(s)). No results found for this or any previous visit (from the past 31473 hour(s)). EKG 03/18/2022 (Care Everywhere) Ventricular Rate 75 Atrial Rate 75 P-R Interval 126 QRS Duration 98 Q-T Interval 376 QTC Calculation(Bazett) 419 P [place] 50 R [place] 35 T [place] -8 QRS Count 12 Q Onset 215 P Onset 152 P Offset 194 T Offset 403 QTC Fredericia 404 Diagnosis Class Abnormal Diagnosis Normal sinus rhythm T wave abnormality, consider inferior ischemia Abnormal ECG Confirmed by Sky Davis ([id number]) on 03/27/2022 4:40:14 PM Normal Assessment Alport syndrome Assessment: h/o ESRD, currently undergoes HD via [facility] MWF -follows with nephrology End stage renal disease (HCC) Assessment: history of Alport syndrome, currently undergoes HD -scheduled for RUE AVF creation on 04/25 Anemia due to chronic kidney disease Assessment: review of records show most recent CBC 03/17/2023: Hgb 8.4 -stable -pre op CBC pending Primary hypertension Assessment: currently on Amlodipine, Carvedilol, Losartan -BP in office today 130/98 Rainey Activity Status Index: METS: Climb a flight of stairs or walk up a hill (5.50 METs) DASI Score: 5.5 Patient denies any chest pain or undue shortness of breath with the above physical activity. STOP-Bang Score: Has or is being treated for high blood pressure Male patient Denies snoring loudly Denies feeling tired, fatigued, or sleepy during the daytime Has not been observed to stop breathing or choking/gasping during sleep BMI less than or equal to 35 kg/m^2 Patient 50 years old or younger Does not have a large neck STOP-Bang Score: 2 [id number] Score: Hypertension history: Yes [id number] Score: 1 ASA Class: 3 ANESTHESIA FINDINGS: Intubation History: No abnormal airway history. No prior intubation Significant Anesthesia Considerations: potential difficult IV/vein access Airway History: No abnormal airway history No prior intubation I - PHYSICAL EVALUATION AIRWAY Patient intubated: No. Tracheostomy tube not present Mallampati: III. TM distance: >3 FB. Neck ROM: full ROM without neurological symptoms. Mouth opening: adequate. Short neck: no. Thick neck: no [place] present: no DENTAL Dental findings: teeth intact. II - ANESTHESIA PLAN ASA Score: 3 Anesthetic Plan: other Anesthetic plan additional comments: *[facility] - anesthesia choice. Beta Krista Monitoring Plan Post Procedure Analgesic Plan Prepared for Surgery: optimally prepared for surgery, pending [see comment]. Pre op labs DOS exam CONSULTS: Patient does not require consults for optimization at this time Planned Anesthetic: other anesthesia choice The Following Tests/Procedures Have Been Initiated: Orders Placed This Encounter CBC with Differential Standing Status: Future Number of Occurrences: 1 Standing Expiration Date: 06/20/2022 BMP Standing Status: Future Number of Occurrences: 1 Standing Expiration Date: 06/20/2022 Instructions Given to Patient: Instructions located in the after visit summary. Patient given verbal and written preop instructions and voices comprehension and compliance. SIGNATURE: Kathy Kolb PA-C PATIENT NAME: Lawson Doyle DATE: April 20, 2022 TIME: 9:22 AM PAGER/CONTACT #: documented in this encounterDay[facility]23 Miscellaneous Notes* Telephone Encounter - Carol Brown - 04/14/2022 2:08 PM EST Patient unable to move surgery sooner * Telephone Encounter - Carol Brown - 04/14/2022 1:52 PM EST Left message for patient to call office to see if he would like to move his AVF creation up to 04/20/2022. documented in this encounterDay[facility]01-09-2023 Miscellaneous Notes* Telephone Encounter - Dona Gil - 03/27/2022 10:56 AM EST Patient is scheduled for a right arm AVF creation with Dr. Cooper on Monday April 25, 2022. No blood thinners. He is aware we will call him the day before with arrival time. Dona Gil documented in this encounterDayton [facility]01-09-[facility]23 History of Present illness Narrative* Lui Cooper MD - 03/27/2022 10:10 AM EST Images from the original note were not included. [facility] DEPART[facility] OF VASCULAR SURGERY OUTPATIENT VISIT DATE March 27, 2022 OUTPATIENT VISIT TYPE CONSULTATION SERVICE DATE: 03/27/2022 SERVICE TIME: 10:10 AM PRIMARY CARE PHYSICIAN: No primary care provider on file. REFERRING PROVIDER: Darryn Grant (Marcelo) [address] [address] Consult requested for an opinion regarding the evaluation and treatment of the above. My final impression and recommendations will be communicated back to the requesting physician by way of the shared medical record or letter via US mail. CHIEF COMPLAINT: ESRD HISTORY OF PRESENT ILLNESS: Vascular consultation at the request of Dr. Darryn Grant. A copy of this consultation note will be provided to the requesting physician by way of shared Medical record or letter to requesting physician via US mail. Mr. Doyle is a 22 year old male who is seen today for AV access surgery. Patient is on dialysis for the last couple weeks through a right IJ tunneled catheter. He has Alport's Disease. He is right-handed. He has no complaints in the arms or hands. No past medical history on file. No past surgical history on file. SOCIAL HISTORY: Social History Tobacco Use Smoking status: Some Days Types: Cigarettes Start date: 03/19/2017 Smokeless tobacco: Never No family history on file. MEDICATIONS: No prescriptions on file. ALLERGIES: ALLERGIES Not on File REVIEW OF SYSTEM: Constitutional: No weight loss, malaise or fevers. HEENT: Negative for frequent or significant headaches Respiratory: Negative for cough, wheezing, or shortness of breath Cardiovascular: Negative for chest pain, leg swelling or palpitations Gatrointestinal: Negative for abdominal discomfort, blood in stools or black stools or change in bowel habits Genitourinary: No history of dysuria, frequency, or incontinence Musculoskeletal: Negative for joint pain or swelling, back pain or muscle pain Endocrine: Negative for cold or heat intolerance, polyuria, polydipsia and goiter Hematology/Lymphatic: Negative for prolonged bleeding, bruising easily or swollen nodes Neurologic: No history or headaches, syncope, paralysis, seizures or tremors Integumentary: Negative for lesions, rash, and itching. PHYSICAL EXAM: VITALS: Ht 5' 10" (1.78m) Wt 177 lb (80.3kg) BMI 25.40 kg/(m^2). General: Alert and oriented, No acute distress Integumentary: Normal color, no rash, no lesions. HEENT: EOM, pupils equal, round and reactive. Cardiovascular: Pulse regular. Lungs: Normal breath sounds, no wheezes or crackles. Abdomen: Soft, non-tender, no rigidity. Extremities: No deformity, no edema or tenderness, no joint swelling or clubbing. Neurological: Normal cognition and motor skills. Gait normal. No weakness or sensory deficit. Vascular: Normal bilateral upper extremities pulses. Radial dominant right hand. Adequate filling of the left hand with ulnar artery. Bilateral upper extremities without evidence of thrombophlebitis. Bilateral cubital fossae with evidence of vena punctures. Diagnostic tests reviewed for today's visit: Non-Invasive Vascular Laboratory [facility] Upper Extremity Mapping for Dialysis Access Bilateral/Complete Date of service/time: 03/27/2022 9:08:17 AM Name: MR. LAWSON DOYLE Date of : 2000 Age: 22 years Gender: M Clinical Indication Preplanning for arteriovenous fistula creation. TECHNIQUE -------- A duplex ultrasound examination was performed, including grayscale imaging and color Doppler and spectral Doppler examination of the below mentioned vessels. FINDINGS -------- RIGHT SIDE ARTERIES (measurements in centimeters) Subclavian artery distal: PSV: 114 cm/s. EDV: 0 cm/s. Multiphasic waveform. Axillary artery distal: PSV: 85 cm/s. EDV: 0 cm/s. Multiphasic waveform. Brachial artery distal: 0.38 cm PSV: 146 cm/s. EDV: 0 cm/s. Multiphasic waveform. Radial artery distal: 0.24 cm PSV: 100 cm/s. EDV: 0 cm/s. Multiphasic waveform. Ulnar artery distal: 0.19 cm PSV: 67 cm/s. EDV: 0 cm/s. Multiphasic waveform. VEINS (measurements in millimeters) Cephalic vein: Upper arm - Proximal: diameter is 3.1 mm, depth is 13.2 mm Upper arm - Mid: diameter is 2.6 mm, depth is 8.8 mm Upper arm - Distal: diameter is 2.6 mm, depth is 8.0 mm Antecubital fossa: diameter is 2.5 mm, depth is 4.1 mm Forearm - Proximal: diameter is 3.0 mm, depth is 7.0 mm Forearm - Mid: diameter is 2.7 mm, depth is 6.6 mm Forearm - Distal (at wrist): diameter is 2.4 mm, depth is 6.5 mm Basilic vein: Axillary/Brachial junction: diameter is 10.0 mm, depth is 15.4 mm Upper arm - Proximal: diameter is 5.6 mm, depth is 11.0 mm Upper arm - Mid: diameter is 4.9 mm, depth is 10.9 mm Upper arm - Distal: diameter is 5.8 mm, depth is 10.9 mm Antecubital fossa: diameter is 6.9 mm, depth is 9.5 mm Median cubital vein - Mid: diameter is 5.2 mm, depth is 4.2 mm VENOUS DOPPLER AND COMPRESSION Internal jugular vein Doppler: normal flow. Compression: normal. Subclavian vein Doppler: normal flow. Compression: normal. Axillary vein Doppler: normal flow. Compression: normal. Brachial vein Doppler: normal flow. Compression: normal. Basilic vein Compression: normal. Cephalic vein Compression: normal. LEFT SIDE ARTERIES (measurements in centimeters) Subclavian artery distal: PSV: 127 cm/s. EDV: 13 cm/s. Multiphasic waveform. Axillary artery distal: PSV: 88 cm/s. EDV: 0 cm/s. Multiphasic waveform. Brachial artery distal: 0.39 cm PSV: 124 cm/s. EDV: 17 cm/s. Multiphasic waveform. Radial artery distal: 0.26 cm PSV: 51 cm/s. EDV: 0 cm/s. Multiphasic waveform. Ulnar artery distal: 0.20 cm PSV: 67 cm/s. EDV: 0 cm/s. Multiphasic waveform. VEINS (measurements in millimeters) Cephalic vein: At subclavian vein junction: diameter is 6.5 mm, depth is 24.8 mm Forearm - Proximal: diameter is 2.0 mm, depth is 5.7 mm Forearm - Mid: diameter is 2.0 mm, depth is 6.9 mm Forearm - Distal (at wrist): diameter is 1.3 mm, depth is 8.7 mm Basilic vein: Axillary/Brachial junction: diameter is 7.0 mm, depth is 13.5 mm Upper arm - Proximal: diameter is 8.2 mm, depth is 10.5 mm Upper arm - Mid: diameter is 5.3 mm, depth is 11.3 mm Upper arm - Distal: diameter is 4.6 mm, depth is 9.5 mm Antecubital fossa: diameter is 3.8 mm, depth is 7.1 mm Forearm - Proximal: diameter is 1.6 mm, depth is 6.0 mm Forearm - Mid: diameter is 1.9 mm, depth is 6.2 mm Forearm - Distal (at wrist): diameter is 1.8 mm, depth is 4.9 mm Median cubital vein - Mid: Diameter is 4.1 mm, depth is 2.0 mm. VENOUS DOPPLER AND COMPRESSION Internal jugular vein Doppler: normal flow. Compression: normal. Subclavian vein Doppler: normal flow. Compression: normal. Axillary vein Doppler: normal flow. Compression: normal. Brachial vein Doppler: normal flow. Compression: normal. Basilic vein Compression: normal. Cephalic vein Compression: normal. IMPRESSION Technically difficult exam due to patient's movement. RIGHT No evidence for arterial inflow stenosis. Brachial artery bifurcation is below the elbow crease. Subclavian artery, Axillary artery, Brachial artery, Radial artery and Ulnar artery : patent . Negative for acute deep vein thrombosis. Cephalic vein: Patent with measurements as indicated above. Inadequately visualized junction due to bandages from the dialysis catheter. Basilic vein: Patent with measurements as indicated above. Inadequately visualized from the antecubital fossa to the wrist. Axillary vein: 6.9 mm brachial veins: 2.9 mm ; 2.3 mm. LEFT No evidence for arterial inflow stenosis. Brachial artery bifurcation is below the elbow crease. Subclavian artery, Axillary artery, Brachial artery, Radial artery and Ulnar artery : patent . Negative for acute deep vein thrombosis. Cephalic vein: Inadequately visualized at the proximal upper arm, at the mid upper arm, at the distal upper arm and at the antecubital fossa. Basilic vein: Patent with measurements as indicated above. Axillary vein: 6.8 mm brachial veins: 2.4 mm ; 1.5 mm. Technologist: Cindy Rodriguez RVT, [facility] Ordering physician: LUI COOPER Interpreting physician: Lui Cooper MD, JOSE ALBERTO ESSION: Mr. Doyle is a 22 year old male with ESRD needing permanent AV access. Anatomy appears to be most amenable to a right upper arm cephalic vein fistula. This was reviewed at length with the patient. We will arrange. Medical Decision Making: Medical Decision Making Level: 1 - N/A SIGNATURE: Lui Cooper MD PATIENT NAME: Lawson Doyle DATE: March 27, 2022 TIME: 10:10 AM documented in this encounterDayton [facility]01-05-2023 NoteSend Summary: Discharge Summary Providers: Provider RoleProvider Name Ivette Becerra AttendingDanilo, Brook Kingsley ConsultingMayra, Benoit Morillo, Tri Arthur, Ivette Herzog Note Recipients: Ivette Manzano MD - [id number] [preferred] Discharge: Summary: Admission Date: .18-Feb-2022 13:08:00 Discharge Date: 21-Feb-2022 Attending Physician at Discharge: Brook Carrasco Admission Reason: renal failure, hypertensive urgency(1) Final Discharge Diagnoses: Primary hypertension Procedures: none Condition at Discharge: Satisfactory Disposition at Discharge: .Home Vital Signs: T PRBPMAPSpO2 [id number]% Date/Time02/21 12: 12: 12: 12: 20: 12:22 Range(36.6C - 37.1C ) (72 - 105 ) (10 - 23 ) (118 - 164 )/ (42 - 98 ) (71 - 125 ) (93% - 99% ) Highest temp of 37.1 C was recorded at 02/20 17:43 Physical Exam: Neurological: AAOx3. Moves all extremities, follows commands. Cardiovascular: Tachycardic. Regular, rate and rhythm, no murmurs, 2+ equal pulses of the extremities, normal S 1and S 2 Respiratory/Thorax: Diminished. No adventitious breath sounds. Genitourinary: No Discharge, vesicles or other abnormalities Gastrointestinal: +BS, soft, NT, ND. Skin: Warm and dry. Right foot with scratch gaston. Musculoskeletal: ROM intact, no joint swelling, normal strength Constitutional: Well developed, awake/alert/oriented x3, no distress, alert and cooperative Eyes: PERRL, EOMI, clear sclera ENMT: mucous membranes moist, no apparent injury, no lesions seen. Head/Neck: Neck supple, no apparent injury, thyroid without mass or tenderness, No JVD, trachea midline, no bruits. Extremities: normal extremities, no cyanosi, no edema. Right hallux infection at the edge of toenail. Foul smelling. + localized swelling around the nail bed. No obvious drainage or erythema. Tender to touch. Lymphatic: No significant lymphadenopathy Psychological: Calm, appropriate. Hospital Course: Assesment/ Plan per Dr. Grant- 1) CKD stage V -no indication for renal replacement therapy at the current time. If his GFR stabilizes around 11 and does not have symptoms may be able to have close follow-up with dialysis education and planning for dialysis or transplant soon 2) likely Alport's disease -we will do genetic testing as an outpatient 3) hypertension -add Coreg Norvasc and clonidine and try to wean Cardene 4) anemia -iron saturation of 11%. We will start with IV iron 5) hyperparathyroidism -hold off on treating for now Keep in ICU today. Tx to Tele bed in AM. 12 Alert and oriented x3 Supplemental O2, keep SPO2 greater than 92% At risk for dialysis, worsening renal function however still making urine, appreciate nephrology recommendations Off nicardipine infusion, tolerating oral BP medications On Clindamycin for Infected Toe Continue supportive measures Will need work-up for transplant list Kidney function continued to decline during his hospitalization. it is suspected per nephrology that patient will most likely need dialysis very soon and it is not emergent and can be handled as an outpatient. Per infectious disease patient was placed on a 1 week course of clindamycin for GBS. Patient was discharged home with appropriate follow-up. Immunizations: Immunizations: 18-Feb-2022 DTaP- Tfdwpdums-Hhkctwi-uhlolefez Pertussis: Immunizations, 2019 18-Feb-2022 SARS-CoV-2 (COVID-19): Immunizations Discharge Information: and Continuing Care: Lab Results - Pending: None Radiology Results - Pending: None Discharge Instructions: Activity: activity as tolerated. May shower.. May return to school/work. Follow Up Appointments: Follow-Up Appointment 01: Physician/Dept/Service: Dr. Grant Reason for Referral: follow up ckd stage 5 Call to Schedule in: 2 weeks Location: [address] [place] [address] #[facility] Discharge Medications: Home Medication cloNIDine 0.1 mg oral tablet - 1 tab(s) orally 2 times a day carvedilol 12.5 mg oral tablet - 1 tab(s) orally 2 times a day melatonin 3 mg oral tablet - 2 tab(s) orally once (at bedtime) -Insomnia losartan 100 mg oral tablet - 1 tab(s) orally once a day amLODIPine 5 mg oral tablet - 2 tab(s) orally once a day - NEW DOSE Multiple Vitamins oral capsule - 1 cap(s) orally once a day PRN Medication traMADol 50 mg oral tablet - 1 tab(s) orally 4 times a day, As Needed pain DNR Status: Code StatusCode Status order at time of discharge: Full Code Electronic Signatures: Brook Carrasco) (Signed 23-Mar-2022 01:59) Authored: Send Summary, Summary Content, Immunizations, Ongoing Care, DNR Status, Note Completion Last Updated: 23-Mar-2022 01:59 by Brook Carrasco) References: 1. Data Referenced From "History and Physical - Critical Care" (more content not included)...[facility]01[facility] NoteSend Summary: Discharge Summary Providers: Provider RoleProvider Name Ivette Becerra Diane ConsultingNadkarni, Vivek PrimaryIvette Manzano Note Recipients: Ivette Manzano MD - [id number] [preferred] Darryn Grant MD - [id number] [Preferred] Discharge: Summary: Admission Date: .16-Mar-2022 09:02:00 Discharge Date: 21-Mar-2022 Attending Physician at Discharge: Kareen Agee Admission Reason: Intractable back pain, vomiting(1) Final Discharge Diagnoses: . 1. End-stage renal disease-dialysis started 2. Nausea and vomiting 3. Right flank pain 4. Pleuritic chest pain 5. Alports syndrome 6. Hypertension . Procedures: Date: 17-Mar-2022 12:48:00 Procedure Name: Tunneled dialysis catheter placement Condition at Discharge: Satisfactory Disposition at Discharge: .Home Vital Signs: T PRBPMAPSpO2 [id number]% Date/Time1 13:101/3 13:481/3 13:481/3 8:421/3 7:57 Range(36C - 37.1C ) (81 - 98 ) (138 - 186 )/ (84 - 108 ) (107 - 143 ) (93% - 98% ) Highest temp of 37.1 C was recorded at 03/20 13:07 Date: Weight/Scale Type:Height: 17-Mar-2022 12:1079.5 kg 177.8 cm Physical Exam: At the time of discharge his lungs were clear, cardiac exam was a regular rhythm. Please refer to progress note this date. Hospital Course: Patient is a 22-year-old white male with a known history of Alport's disease with CKD stage V. He was initially seen in the ER 03/04 with nausea, vomiting, and diarrhea. Work-up then showed his BUN of 66 with a creatinine of 7.33 Bilateral renal ultrasound showed a trace amount of nonspecific perinephric fluid in the upper pole of the right kidney but no hydronephrosis. CT of the abdomen and pelvis showed mild gastric wall thickening with a small focal area of consolidation in the right lower lobe consistent with inflammation. He was scheduled to see Dr. Grant and discharged on Protonix and Zofran. 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 He had recurrent nausea and protracted vomiting, associated with lightheadedness. He presented to the ER where his WBC was 6.8. H/H was stable at 8.8/27.2. Chemistry panel showed a, bicarb of 18, BUN was 68, creatinine of 7.25. Urinalysis showed large protein, large blood, and positive glucose. He was treated with morphine, IV fluids, and Zofran and admitted due to failure of outpatient treatment. Please refer to admission H&P for further details. Patient was treated with pain medications, nephrology was consulted. The morning after admission he spiked temperatures to 101 F, no source was obvious and he was not started on antibiotics. Blood cultures were drawn which remained negative. He had a tunneled hemodialysis catheter placed on 03/17 and was started on dialysis 03/18. He had severe pain at that upper right chest and neck after placement of the dialysis catheter; due to the disproportionate pain and his flank pain with fevers, he had CT of the chest, abdomen and pelvis done with contrast which showed no evidence of hematoma or abscess. His pain improved with treatment with medications, as did his nausea/vomiting. His hypertension medications were adjusted. He also developed some episodes of pleuritic chest pain, EKG was normal. D-dimer was elevated so he had a CTA PE done which was negative. He is being discharged to start outpatient hemodialysis. He should follow-up with his PCP, Dr. Ivette Manzano in 1 week. 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 Final diagnoses: 1. End-stage renal disease-dialysis started 2. Nausea and vomiting 3. Right flank pain 4. Pleuritic chest pain 5. Alports syndrome 6. Hypertension *Some of this note was completed using [employer] voice recognition technology and may include unintended errors with respect to translation of words, typographical errors or grammar errors which may not have been identified prior to finalization of the chart note. >31 minutes patient care/discharge coordination Immunizations: Immunizations: 18-Feb-2022 SARS-CoV-2 (COVID-19): Immunizations 18-Feb-2022 DTaP- Jwnfdmyww-Jwamfis-lvmdnexos Pertussis: Immunizations, 2019 Medical History: End-stage renal disease on hemodialysis: Description: Dialysis started 02/2022 Chronic kidney disease (CKD), stage V: Alport's syndrome: Onset Date: 17-Mar-2022 Hypertension: Discharge Information: and Continuing Care: Lab Results - Pending: Culture, Blood Drawn at 17-Mar-2022 14:57:00 Culture, Blood Drawn at 17-Mar-2022 14:05:00 Radiology Results - Pending: Angio Fluoroscopic Guid CVA Device at 17-Mar-2022 12:54:00 Angio US Guide for Vascular Access at 17-Mar-2022 12:54:00 Discharge Instructions: Activity: May shower.. Keep catheter dry/protected [facility] (more content not included)...[facility] 03-17-2022 NotePre-procedure Verification and Time Out: Pre-Procedure Verification and Time Out: Procedure Locationprocedure area HUDDLE - Pre-procedure Verificationcompleted TIME OUT - Final Verificationcompleted immediately prior to procedure start DEBRIEFcompleted General Information: Anesthesia Critical Care: Non-Anesthesia Post-Procedure Diagnosis: Renal failure Procedure Name: Tunneled dialysis catheter placement Findings: grossly normal anatomy Procedure performed by: Account Developer(s): none Estimated Blood Loss (mL): none Specimen: no Procedure Details: Procedure Details: Right IJ tunneled dialysis catheter is in place and ready for immediate use. Attestation: Note Completion: Attending AttestationI performed the procedure without a resident Electronic Signatures: Faith Ayala) (Signed 17-Mar-2022 12:49) Authored: Pre-procedure Verification and Time Out, General Information, Procedure Details, Note Completion Last Updated: 17-Mar-2022 12:49 by Faith Ayala)[facility] 03-16-2022 NoteHistory of Present Illness: HPI: LAWSON DOYLE is a 22 year old Male Chief complaint: Nausea and vomiting, back pain PCP was Dr. Ivette Manzano, last seen in the office 2018. Cane Flume Watcher is Dr. Grant History is taken from the patient, discussion with the ER physician & ER records, [facility] outpatient medical records, and prior [facility] medical records. Patient is a 22-year-old white male with a known history of Alport's disease with CKD stage V. He was initially seen in the ER 03/04 with nausea vomiting and diarrhea. Work-up then showed his BUN of 66 with a creatinine of 7.33, normal electrolytes, normal LFTs. CBC showed a mild anemia with an H/H of 9.5/29.2. WBC was normal at 8.1. Bilateral renal ultrasound showed a trace amount of nonspecific perinephric fluid in the upper pole of the right kidney but no hydronephrosis. CT of the abdomen and pelvis showed mild gastric wall thickening with a small focal area of consolidation in the right lower lobe consistent with inflammation. He was scheduled to see Dr. Grant on Sunday. He was discharged on Protonix and Zofran. Then 2 nights ago while sitting watching TV he developed pain across his lower back which he described as stabbing in nature. It did not radiate down to his legs. It was worse when he tried to lay down. He was unable to sleep. He also became nauseated and started vomiting at the same time. There was initially food then bile, no blood with his vomiting. The Zofran he had been given did not help, and he became light-headed. In the ER today his WBC was 6.8. H/H was 8.8/27 at 2. Platelet count 190 5K. Chemistry panel showed a sodium of 137, potassium 4.9, chloride 104, bicarb of 18. BUN was 68 with a creatinine of 7.25. LFTs were normal. Lactate was normal at 0.7. Urinalysis showed large protein, large blood, and positive glucose. He had 3 WBC and 50 RBC/hpf. No further radiologic studies were done. He was vern ated with morphine, IV fluids, and Zofran and admitted due to failure of outpatient treatment. ROS: He denies fevers, had slight chills earlier today. He denies any shortness of breath other than when he has had his severe pain. He denies cough, sputum production. He denies heartburn. He denies abdominal pain, nausea, vomiting, or constipation. He is not having any more diarrhea. He denies any pedal edema. He still urinates, his urine has not become discolored. He denies dysuria. He has lost 10 pounds since recently starting on a renal diet. Past Medical History: -Alports disease -Hypertension -CKD stage V Past Surgical History: -Ankyloglossis release age 4 -Renal biopsy 06/08/2017 Assessment/plan: 1. Intractable nausea and vomiting, failed outpatient treatment. She is receiving IV fluids, IV Zofran and Phenergan if needed. 2. Low back pain-on exam is muscular, will start on cyclobenzaprine, Lidoderm patch, and morphine as needed. 3. 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 Nephrology is consulted. 4. Hypertension-will continue his home medication regimen *Some of this note was completed using [employer] voice recognition technology and may include unintended errors with respect to translation of words, typographical errors or grammar errors which may not have been identified prior to finalization of the chart note. Comorbidities: Comorbidites: Comorbid Conditionschronic kidney disease Chronic Kidney DiseaseAlports disease CKD StageStage 5 Family History: Family History: -Father-alive age 56, has DM, PAD, and a pacemaker -Mother-mother age 46 from pneumonia and had a history of CA. 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 Objective: Objective Information: T PRBPMAPSpO2 [id number]/8498% Date/Time03/16 14: 14: 14: 14: 14:00 Range(36.5C - 37.7C ) (90 - 102 ) (18 - 20 ) (140 - 152 )/ (70 - 84 ) (98% - 99% ) Highest temp of 37.7 C was recorded at 03/16 14:00 Pain reported at (more content not included)...[facility] 02-18-2022 NoteService: Critical Care Service: ServiceSICU History of Present Illness: Admission Reason: renal failure, hypertensive urgency HPI: Patient is a pleasant 21-year-old male with past medical history significant for hypertension on lisinopril who presents to [facility] emergency department with complaints of sore throat, hoarseness, dry cough for the past 3 days. He also has a infected right big toe due to ingrown toenail. He has not been on any recent antibiotics. He denies having any fevers or chills. Patient denies any shortness of breath, chest pain, palpitations, nausea, vomiting or diarrhea. He denies any hematuria, dysuria or urinary frequency. Patient denies any recent weight loss. Denies any alcohol or drug use. He is a non-smoker. During patient's work-up in the emergency department he was noted to be in acute renal failure with a creatinine 6.68 and GFR of 12. Patient does have a longstanding family history of end-stage renal disease with several family members being on hemodialysis and several which are status post transplant. In 2018 patient underwent renal biopsy to rule out all top syndrome. Biopsy appears to be inconclusive. Patient lost to follow-up thereafter. PMH: Hypertension Surg Hx: Renal biopsy 2018 Fam Hx: multiple family members with ESRD on HD and several who are s/p transplant (no known diagnosis) Social Hx: non smoker. Denies drug and alcohol use. ROS: 10 system review complete and is negative except as mentioned in HPI Physical Exam: see below Assessment/Plan: #Acute renal failure on top of CKD [address] Grant who is known to patient Cr on admission 6.42 with borderline high K (5.0) Previous normal renal function 2018 S/p renal biopsy 2018 with no diagnosis for Alport syndrome Denies any recent antibiotics or NSAID use Hold lisinopril until nephrology evaluates patient Renal US ordered Urine studies ordered CK is normal ESR Avoid nephrotoxic agents Repeat BMP in am #Hypertensive urgency Continue with nicardipine gtt #Normocytic anemia Hgb 9.5 on admission Iron panel, ferritin, folate, B12 in am #Leukocytosis, cough, laryngitis, #Right hallux infection d/t ingrown toenail UA neg, CXR neg Covid, flu and strep neg Consult podiatry Xray right foot neg for acute findings Clindamycin 300 mg every 6 hours If no improvement consider CT imaging Culture if drainage present #Tachycardia EKG Sinus tach. Trop normal x 3 TSH pending Tox screen is negative Metoprolol 5 mg IV every 6 hours Monitor on telemetry for any tachycardia or bradyarrhythmias Maintain potassium >4, magnesium >2. #DVTp Heparin Comorbidities: Comorbidites: Comorbid Conditionshypertension Allergies: No Known Allergies: Medications Prior to Admission: Admission Medication Reconciliation has not been completed for this patient. Objective: Objective Information: Objective Information T PRBPMAPSpO2 [id number]/31036% Date/Time02/18 13: 20: 20: 20: 20:00 Range(36.9C - 36.9C ) (98 - 130 ) (17 - 19 ) (152 - 232 )/ (88 - 137 ) (96% - 100% ) Highest temp of 36.9 C was recorded at 02/18 13:52 Pain reported at 02/18 13:52: 8 = Severe Date: Weight/Scale Type: 18-Feb-2022 13:5286 kg Physical Exam by System: Neurological: alert and oriented x3, intact senses, motor, response and reflexes, normal strength Cardiovascular: Tachycardic. Regular, rate and rhythm, no murmurs, 2+ equal pulses of the extremities, normal S 1and S 2 Respiratory/Thorax: Patent airways, CTAB, normal breath sounds with good chest expansion, thorax symmetric Gastrointestinal: Nondistended, soft, non-tender, no rebound tenderness or guarding, no masses palpable, no organomegaly, +BS, no bruits Skin: Warm and dry. Right foot with scratch gaston. Musculoskeletal: ROM intact, no joint swelling, normal strength Constitutional: Well developed, awake/alert/oriented x3, no distress, alert and cooperative Eyes: PERRL, EOMI, clear sclera ENMT: mucous membranes moist, no apparent injury, no lesions seen. Head/Neck: Neck supple, no apparent injury, thyroid without mass or tenderness, No JVD, trachea midline, no bruits. Extremities: normal extremities, no cyanosi, no edema. Right hallux infection at the edge of toenail. Foul smelling. + localized swelling around the nail bed. No obvious drainage or erythema. Tender to touch. Lymphatic: No significant lymphadenopathy Psychological: Appropriate mood and behavior Medications: Medications: Continuous Medications 1. niCARdipine (CARDENE) 40 mg/ NaCL 200 mL Premix Infusion: 2.5 mg/hr IntraVenous 2. niCARdipine (CARDENE) 40 mg/ NaCL 200 mL Premix Infusion: 2.5 mg/hr IntraVenous Scheduled Medications 1. Clindamycin: 300 mg Oral Every 6 Hours 2. Do (more content not included)...[facility] Author Radhika Dyson [facility] Note Date/Time October 14, 2024 2:[address] [facility] Medical Records Department [address] [place] [address] Counseling Note - Pharmacy 10/14/24 1330 MR#: [id number] Acct: [id number] Name: LAWSON DOYLE Rep #:[id number] : 2000 From: Radhika Dyson PCP: Care Physician,No Primary Status :ADM KEYANNA Y Location: [place] [address] Pharmacy [facility] Counseling Pharmacy Service has performed discharge medication reconciliation and counseling for this patient. 1. AMLODIPINE 5MG PO DAILY 2. CARVEDILOL INCREASED TO 25MG The patient's discharge medication list was reviewed for discrepancies and discrepancies were resolved. The patient was counseled on the following discharge medications and changes in medications for homegoing were reviewed. The Reason for Use, instructions for use, and potential side effects were reviewed for all new medications. The patient's questions regarding all of their medications were answered. The patient was able to verbally demonstrate an understanding of their dischargemedications. Medications at Discharge Home Medications cinacalcet 30 mg tablet 30 mg PO QPM 02/11/24 losartan 100 mg tablet 100 mg PO DAILY blood pressure 02/11/24 sevelamer carbonate 800 mg tablet 800 mg PO TID supplement 02/11/24 vit B,C-folic ac 800 mcg-zinc 12.5 mg-selen-D3 2,000 unit-vit E tablet (RenaPlex-D) 1 tab PO DAILY vitamin 02/11/24 albuterol sulfate 90 mcg/actuation aerosol inhaler (Ventolin HFA) 1 - 2 puff inhalation Q4H PRN PRN Wheezing #1 inh 10/03/24 lanthanum 1,000 mg chewable tablet 1,000 mg PO TID dialysis 10/03/24 amlodipine 5 mg tablet 5 mg PO DAILY #30 tabs 10/14/24 carvedilol 25 mg tablet 25 mg PO BIDCM #60 tabs 10/14/24 10/14/24 1330 <Electronically signed by Radhika Dyson> Date _ Radhika Dyson Cosigner Signature (if applicable): Date CC: ~ Signed [facility] Work Phone: Discharge summary Author Bing Birmingham [facility] Note Date/Time October 14, 2024 12:5 3pm [facility] Medical Records Department [address] [place] [address] Discharge Summary 10/14/24 1242 MR#: [id number] Acct: [id number] Name: LAWSON DOYLE Rep #:[id number] : 2000 From: Bing Birmingham DO PCP: Care Physician,No Primary Status :ADM KEYANNA Location: [place] [address] Providers Date of Admission: 10/13/24 Date of Discharge: 10/14/24 Primary Care Physician: No Primary Care Phys Consultations 10/13/24 13:49 Consult: Nephrology Routine Consulting Provider: Windy Higuera Reason for Consult: Dialysis EMERGENT Consult: No MD Notified: Yes Date Notified: 10/13/24 Time Notified: 12:22 Method of Notification: ED Physician Initiated Reason For Visit: VOLUME OVERLOAD SECONDARY TO DECOMPENSATED HEART Diagnosis Discharge Diagnosis (1) ESRD (end stage renal disease): Status: Acute Code(s): N18.6 - End stage renal disease (2) Hyperkalemia: Status: Acute Code(s): E87.5 - Hyperkalemia (3) Hypoxia: Status: Acute Code(s): R09.02 - Hypoxemia (4) Hypertensive emergency: Status: Acute Code(s): I16.1 - Hypertensive emergency Medications at Discharge Home Medications cinacalcet 30 mg tablet 30 mg PO QPM 02/11/24 losartan 100 mg tablet 100 mg PO DAILY 02/11/24 sevelamer carbonate 800 mg tablet 800 mg PO TID 02/11/24 vit B,C-folic ac 800 mcg-zinc 12.5 mg-selen-D3 2,000 unit-vit E tablet (RenaPlex-D) 1 tab PO DAILY 02/11/24 albuterol sulfate 90 mcg/actuation aerosol inhaler (Ventolin HFA) 1 - 2 puff inhalation Q4H PRN PRN Wheezing #1 inh 10/03/24 lanthanum 1,000 mg chewable tablet 1,000 mg PO TID 10/03/24 amlodipine 5 mg tablet 5 mg PO DAILY #30 tabs 10/14/24 carvedilol 25 mg tablet 25 mg PO BIDCM #60 tabs 10/14/24 Hospital Course Operations None Procedures 2-D Echocardiogram, Dialysis and - (Chest x-ray) Summary of Care Provided Minutes Spent on Discharge: 39 Hospital Course: LAWSON DOYLE, is a 24 M who presented to the emergency department at [facility] on 10/05/2024 complaining of shortness of breath. Patient hashistory of Alport syndrome and has end-stage renal disease currently on dialysis. He started dialysis about 2 years ago and up until last couple monthshe was tolerating dialysis well. He states currently he is getting nauseated atthe end of his sessions. His last dialysis was Sunday and he ran all the last 10 minutes. He was seen in the emergency department on 10/03/2024 and diagnosed with bronchitis. At that time he was given a Z-Selwyn, albuterol, and a prednisonetaper. He states he still has a cough. He said no fever or chills. His white count and differential was normal been as it is now. He states that his blood pressure is always fairly elevated despite compliance with his home blood pressure medicines. He states he is symptomatic if his blood pressure starts todrop below 130 systolic. He follows with Dr. Higuera as an outpatient. Vital signs on presentation showed temperature 98.7, heart rate 110, blood pressure 191/131, respiratory rate 16-23 and pulse ox was 93 to 98% on room air at rest however he desatted with exertion into the low 80s. Given that exertional desatadmission was felt to be needed as he was not able to have outpatient dialysis today and would have to defer to tomorrow. CBC shows a chronic stable anemia but was otherwise unremarkable with a normal white count and differential. His chemistry panel showed markedly elevated anion gap at 19 BUN of 38 and a serum creatinine of 12.50. BNP was obtained and was 44,433. CXR is consistent with volume overload. The case was discussed with nephrology who agreed to urgent dialysis on the day of presentation to help with his volume overload. I highly suspect that his blood pressure caused a stiffened ventricle which resulted in diastolic heart failure as etiology for his volume status as he was only about 1.6 kg above his dry weight. We were able to bring his blood pressure down and get him dialyzed with significant help with his exertional hypoxia. Ambulatory pulse ox was done on the day of discharge and oxygen saturations were at 97% with exertion on room air. With regards to his blood pressure we did increase his carvedilol from 12.5 mg p.o. twice daily to 25 mg p.o. twice daily and addedlow-dose amlodipine 5 mg daily. The patient did indicate that he does tend to get symptomatic if his blood pressures drop below 130 systolic so right now the goal for him will be between 140 and 160 and have him follow-up as an outpatientwith nephrology and they can slowly lower his blood pressure further with additional medication if needed. Blood pressure at the time of discharge is 148/63. We did obtain an echocardiogram due to his markedly elevated BNP and his symptoms on presentation. Echo showed an EF of 50% with mild concentric LVHand global longitudinal strain at 15.7% which is abnormal. I suspect this is all related to uncontrolled blood pressure at this time hopefully we can get hisblood pressure better controlled and decrease the amount of stress from a diastolic standpoint on his cardiac function. Prescriptions for the increased dose of carvedilol and amlodipine were sent to the pharmacy prior to discharge the patient was discharged home in stable condition on 10/14/2024. Discharge diagnoses: Exertional hypoxia secondary to volume overload Hypertensive emergency with elevated BNP and shortness of breath Concentric LVH Elevated anion gap Cough Chronic anemia secondary to chronic renal disease ESRD secondary to Alport syndrome History of tobacco abuse Physical Exam Const alert, oriented x3, no apparent distress, average body habitus and well nourished; Negative for healthy appearing Constitutional Narrative: Young, white male, sitting up in bed watching television, appears comfortable, nontoxic General Appearance: cooperative, comfortable, well kempt and well developed Exam Limitations: no limitations HEENT normocephalic, head/scalp atraumatic, hearing grossly normal bilaterally and moist oral mucous membranes HEENT Narrative: Mallampati 2, no thrush Eyes EOMs intact bilaterally Eyes Narrative: Mildly pale conjunctiva bilaterally, no scleral icterus Neck supple Neck Narrative: Trachea midline Resp normal respiratory effort, no retractions, no use of accessory muscles and clearto auscultation bilaterally Auscultation: Negative for crackles, rhonchi or wheezes Cardio regular rate, regular rhythm, S1 normal heart sound, S2 normal heart sound, no murmurs, no rub, no gallops and no clicks GI normal to inspection, nondistended, normoactive bowel sounds, soft to palpation and non-tender Extremity no clubbing, cyanosis or edema Extremity Narrative: Right upper extremity fistula with positive thrill and bruit Skin no jaundice Neuro oriented x3, moves all extremities and no focal motor deficits Speech: speech normal Psych affect normal Psych Narrative: Very pleasant, appears as if he is feeling much better, interacts appropriately,eye contact is good Weight / BMI Weight Weight: 80 kg Body Mass Index (BMI) 25.2 ABG / Lab / Microbiology Data 10/14/24 05:58 10/14/24 08:35 Laboratory: Laboratory Results - last 24 hr 10/14/24 05:58: WBC 8.7, RBC 2.80 L, Hgb 8.9 L, Hct 27.5 L, MCV 98.2 H, MCH 31.8, MCHC 32.4, RDW Std Deviation 56.3 H, RDW Coeff of Mono 16.0 H, Plt Count 231, MPV 9.4, Immature Gran % (Auto) 0.200, Neut % (Auto) 63.4, Lymph % (Auto) 22.1, Kent % (Auto) 6.1, Eos % (Auto) 7.9 H, Baso % (Auto) 0.3, Absolute Neuts (auto) 5.5, Absolute Lymphs (auto) 1.92, Nucleated RBC % 0, Sodium 138, Potassium 5.8 H, Chloride 100, Carbon Dioxide 22.2, Anion Gap 16 H, BUN 38 H, Creatinine 10.10 H*, Estim Creat Clear Calc 11.54 L, Est GFR (MDRD) Non-Af 7 L, BUN/Creatinine Ratio 3.7 L, Glucose 93, Calcium 9.1, Phosphorus 6.6 H, Magnesium 2.5 H, Total Bilirubin 0.41, AST 8, ALT 10, Alkaline Phosphatase 70, Total Protein 5.7 L, Albumin 3.7, Globulin 2.0 L, Albumin/Globulin Ratio 1.9 10/14/24 08:35: Potassium 5.6 H Radiography Diagnostic Testing: Radiology Impression Echocardiogram 10/13/24 13:49 Interpretation Summary Normal LV size. Mild concentric left ventricular hypertrophy. The global longitudinal strain = -15.7% (abnormal). The left ventricular ejection fraction is 50 %. Ordering Physician: Bing Birmingham Performed By: Marcos Sarmiento RCS D/C Instructions Discharge Activity: Return to Normal Activity Return to work on: 10/15/24 DC O2, CPAP, BIPAP Needs Home O2 Discharge instructions: No Meaningful Use Info Meaningful Use Meaningful Use Diagnoses (Choose all that apply): None applicable Discharge Plan Admission Admit Date/Time: 10/13/24 12:21 Primary Reason for Your Visit: Shortness of breath Attending Provider: Bing Birmingham Primary Care Provider: Care Physician,No Primary Consulting Providers: Windy Higuera Discharge Orders/Prescriptions Prescriptions: New carvedilol 25 mg Tablet 25 mg PO BIDCM Qty: 60 1RF amlodipine 5 mg Tablet 5 mg PO DAILY Qty: 30 1RF Continued losartan 100 mg tablet 100 mg PO DAILY RenaPlex-D 800 mcg-12.5 mg -2,000 unit tablet 1 tab PO DAILY cinacalcet 30 mg tablet 30 mg PO QPM sevelamer carbonate 800 mg tablet 800 mg PO TID lanthanum 1,000 mg tablet,chewable 1,000 mg PO TID albuterol sulfate [Ventolin HFA] 90 mcg/actuation HFA aerosol inhaler 1 - 2 puff inhalation Q4H PRN PRN (Reason: Wheezing) Qty: 1 0RF Discontinued carvedilol 12.5 mg tablet 12.5 mg PO BID Referrals / Follow Up: Windy Higuera MD [Med Staff - Consulting] - As soon as possible Care Physician,No Primary [Primary Care Provider] - Disposition Disposition (needs filled in before D/C Order can be placed): Home, Self Care Charges/Coding Visit Charges Inpatient E&M: 59298 Disch Hosp >30min 10/14/24 1253 <Electronically signed by Bing Birmingham DO> Cosigner Signature (if applicable): CC: Dr. Windy Higuera MD; Dr. Bing Birmingham DO; No Primary Care Physician~ Signed [facility] Work Phone: Evaluation note* Neurological: alert and oriented [id number]: Foot infectionMusculoskeletal: ROM intactGastrointestinal: Nondistended, soft, non-tender, no rebound tenderness or guarding, no masses palpable, no organomegaly, +BS, no bruitsCardiovascular: Regular, rate and rhythm, no murmurs, 2+ equal pulses of the extremities, normal S 1and S 2Respiratory/Thorax: no resp distress. lungs are clear to auscultatio nHead/Neck: Neck supple, no apparent injury, No JVD, trachea midline, no bruitsSkin: Warm and dry, no lesions, no rashesConstitutional: awake/alert/oriented x3, no distress, alert and cooperativePsychological: Appropriate mood and behavior [facility]* Neurological: alert and oriented [id number]: Appropriate mood and behaviorExtremities: normal extremities, no cyanosis edema, contusions or wounds, no clubbingMusculoskeletal: ROM intactGastrointestinal: Nondistended, soft, non-tender, no rebound tenderness or guarding, no masses palpable, no organomegaly, +BS, no bruitsCardiovascular: Regular, rate and rhythm, no murmurs, 2+ equal pulses of the extremities, normal S 1and S 2Respiratory/Thorax: Bilateral rhonchiHead/Neck: Neck supple, no apparent injury, No JVD, trachea midline, no bruitsSkin: Warm and dry, no lesions, no rashesConstitutional: awake/alert/oriented x3, no distress, alert and cooperative [facility]* Diagnosis ESRD (end stage renal disease) (HCC)- Primary [facility] Diagnosis ESRD [facility] dialysis (HCC)- Primary End stage renal disease ESRD (end stage renal disease) (HCC) End stage renal disease [facility] Diagnosis Pre-op evaluation- Primary Preoperative examination, unspecified Alport syndrome Other specified congenital anomalies End stage renal disease (HCC) End stage renal disease Anemia due to chronic kidney disease, on chronic dialysis (HCC) Primary hypertension Unspecified essential hypertension ESRD (end stage renal disease) (HCC) End stage renal disease [facility] Diagnosis ESRD (end stage renal disease) (HCC)- Primary End stage renal disease [facility] Diagnosis ESRD (end stage renal disease) (HCC)- Primary End stage renal disease ESRD (end stage renal disease) (HCC) End stage renal disease [facility] Diagnosis ESRD on dialysis (HCC)- Primary End stage renal disease Stenosis of arteriovenous dialysis fistula, initial encounter ([facility]) ESRD (end stage renal disease) (HCC) End stage renal disease [facility] Diagnosis ESRD on dialysis (HCC)- Primary End stage renal disease Pre-transplant evaluation for ESRD (end stage renal disease) Other specified pre-operative examination [facility] Diagnosis Mechanical complication of dialysis catheter, initial encounter (HCC)- Primary ESRD on dialysis (HCC) [facility] Pre-transplant evaluation for kidney transplant- Primary Other specified pre-operative examination [facility] Diagnosis ESRD (end stage renal disease) (HCC)- Primary End stage renal disease ESRD (end stage renal disease) (HCC) End stage renal disease [facility] Diagnosis ESRD on dialysis (HCC)- Primary End stage renal disease ESRD (end stage renal disease) (HCC) End stage renal disease [facility] Diagnosis ESRD (end stage renal disease) (HCC)- Primary End stage renal disease ESRD (end stage renal disease) (HCC) End stage renal disease ESRD (end stage renal disease) (HCC) End stage renal disease [facility] Diagnosis Renal failure, unspecified chronicity- Primary Preoperative examination Preoperative examination, unspecified Screening for venereal disease Screening examination for venereal disease documented in this encounter [facility] note* Diagnosis Pre-transplant evaluation for CKD (chronic kidney disease)- Primary Other specified pre-operative examination [facility]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 09/18/2022 [facility] DATE CREATED AUTHOR AUTHOR'S ORGANIZ ATION 05/20/2023 [facility] DATE CREATED AUTHOR AUTHOR'S ORGANIZ ATION 08/13/2023 [facility] DATE CREATED AUTHOR AUTHOR'S ORGANIZ ATION 03/12/2024 [facility] DATE CREATED AUTHOR AUTHOR'S ORGANIZ ATION 09/14/2024 [facility] DATE CREATED AUTHOR AUTHOR'S ORGANIZ ATION 09/18/2024 [facility] DATE CREATED AUTHOR AUTHOR'S ORGANIZ ATION 11/01/2024 [facility] DATE CREATED AUTHOR AUTHOR'S ORGANIZ ATION 01/09/2025 [facility] DATE CREATED AUTHOR AUTHOR'S ORGANIZ ATION 01/12/2025 [facility] DATE CREATED AUTHOR AUTHOR'S ORGANIZ ATION 01/29/2025 [facility] <item><item> Privacy Markings (unrecogniz ed section and content) Section Author: Alice Sood PROHIBITION ON REDISCLOSURE OF CONFIDENTIAL INFORMATION This notice accompanies a disclosure of information concerning a client made to you with the consent of such client. Section Author: Alice Sood PROHIBITION ON REDISCLOSURE OF CONFIDENTIAL INFORMATION This notice accompanies a disclosure of information concerning a client made to you with the consent of such client. Source Comments (unrecognize d section and content) In the event this informatio n is protected by the Federal Confidentiality of Alcohol and Drug Abuse Patient Records regulations: The Federal rules restrict any use of the information to criminally investigate or prosecute any alcohol or drug abuse patient.[facility] the event this information is protected by the Federal Confidentiality of Alcohol and Drug Abuse Patient Records regulations: The Federal rules restrict any use of the information to criminally investigate or prosecute any alcohol or drug abuse patient.[facility]In the event this information is protected by the Federal Confidentiality of Alcohol and Drug Abuse Patient Records regulations: The Federal rules restrict any use of the information to criminally investigate or prosecute any alcohol or drug abuse patient.[facility] HospitalIn the event this information is protected by the Federal Confidentiality of Alcohol and Drug Abuse Patient Records regulations: The Federal rules restrict any use of the information to criminally investigate or prosecute any alcohol or drug abuse patient.[facility]In the event this information is protected by the Federal Confidentiality of Alcohol and Drug Abuse Patient Records regulations: The Federal rules restrict any use of the information to criminally investigate or prosecute any alcohol or drug abuse patient.[facility] HospitalIn the event this information is protected by the Federal Confidentiality of Alcohol and Drug Abuse Patient Records regulations: The Federal rules restrict any use of the information to criminally investigate or prosecute any alcohol or drug abuse patient.[facility] HospitalIn the event this information is protected by the Federal Confidentiality of Alcohol and Drug Abuse Patient Records regulations: The Federal rules restrict any use of the information to criminally investigate or prosecute any alcohol or drug abuse patient.[facility] HospitalIn the event this information is protected by the Federal Confidentiality of Alcohol and Drug Abuse Patient Records regulations: The Federal rules restrict any use of the information to criminally investigate or prosecute any alcohol or drug abuse patient.[facility] HospitalIn the event this information is protected by the Federal Confidentiality of Alcohol and Drug Abuse Patient Records regulations: The Federal rules restrict any use of the information to criminally investigate or prosecute any alcohol or drug abuse patient.[facility] HospitalIn the event this information is protected by the Federal Confidentiality of Alcohol and Drug Abuse Patient Records regulations: The Federal rules restrict any use of the information to criminally investigate or prosecute any alcohol or drug abuse patient.[facility] HospitalIn the event this information is protected by the Federal Confidentiality of Alcohol and Drug Abuse Patient Records regulations: The Federal rules restrict any use of the information to criminally investigate or prosecute any alcohol or drug abuse patient.[facility] HospitalIn the event this information is protected by the Federal Confidentiality of Alcohol and Drug Abuse Patient Records regulations: The Federal rules restrict any use of the information to criminally investigate or prosecute any alcohol or drug abuse patient.[facility] HospitalIn the event this information is protected by the Federal Confidentiality of Alcohol and Drug Abuse Patient Records regulations: The Federal rules restrict any use of the information to criminally investigate or prosecute any alcohol or drug abuse patient.[facility] HospitalIn the event this information is protected by the Federal Confidentiality of Alcohol and Drug Abuse Patient Records regulations: The Federal rules restrict any use of the information to criminally investigate or prosecute any alcohol or drug abuse patient.[facility] HospitalIn the event this information is protected by the Federal Confidentiality of Alcohol and Drug Abuse Patient Records regulations: The Federal rules restrict any use of the information to criminally investigate or prosecute any alcohol or drug abuse patient.[facility] HospitalIn the event this information is protected by the Federal Confidentiality of Alcohol and Drug Abuse Patient Records regulations: The Federal rules restrict any use of the information to criminally investigate or prosecute any alcohol or drug abuse patient.[facility] HospitalIn the event this information is protected by the Federal Confidentiality of Alcohol and Drug Abuse Patient Records regulations: The Federal rules restrict any use of the information to criminally investigate or prosecute any alcohol or drug abuse patient.[facility] HospitalIn the event this information is protected by the Federal Confidentiality of Alcohol and Drug Abuse Patient Records regulations: The Federal rules restrict any use of the information to criminally investigate or prosecute any alcohol or drug abuse patient.[facility] HospitalIn the event this information is protected by the Federal Confidentiality of Alcohol and Drug Abuse Patient Records regulations: The Federal rules restrict any use of the information to criminally investigate or prosecute any alcohol or drug abuse patient.[facility] HospitalIn the event this information is protected by the Federal Confidentiality of Alcohol and Drug Abuse Patient Records regulations: The Federal rules restrict any use of the information to criminally investigate or prosecute any alcohol or drug abuse patient.[facility] HospitalIn the event this information is protected by the Federal Confidentiality of Alcohol and Drug Abuse Patient Records regulations: The Federal rules restrict any use of the information to criminally investigate or prosecute any alcohol or drug abuse patient.[facility] HospitalIn the event this information is protected by the Federal Confidentiality of Alcohol and Drug Abuse Patient Records regulations: The Federal rules restrict any use of the information to criminally investigate or prosecute any alcohol or drug abuse patient.[facility] HospitalIn the event this information is protected by the Federal Confidentiality of Alcohol and Drug Abuse Patient Records regulations: The Federal rules restrict any use of the information to criminally investigate or prosecute any alcohol or drug abuse patient.[facility] HospitalIn the event this information is protected by the Federal Confidentiality of Alcohol and Drug Abuse Patient Records regulations: The Federal rules restrict any use of the information to criminally investigate or prosecute any alcohol or drug abuse patient.[facility] HospitalIn the event this information is protected by the Federal Confidentiality of Alcohol and Drug Abuse Patient Records regulations: The Federal rules restrict any use of the information to criminally investigate or prosecute any alcohol or drug abuse patient.[facility] HospitalIn the event this information is protected by the Federal Confidentiality of Alcohol and Drug Abuse Patient Records regulations: The Federal rules restrict any use of the information to criminally investigate or prosecute any alcohol or drug abuse patient.[facility] HospitalIn the event this information is protected by the Federal Confidentiality of Alcohol and Drug Abuse Patient Records regulations: The Federal rules restrict any use of the information to criminally investigate or prosecute any alcohol or drug abuse patient.[facility] HospitalIn the event this information is protected by the Federal Confidentiality of Alcohol and Drug Abuse Patient Records regulations: The Federal rules restrict any use of the information to criminally investigate or prosecute any alcohol or drug abuse patient.[facility] HospitalIn the event this information is protected by the Federal Confidentiality of Alcohol and Drug Abuse Patient Records regulations: The Federal rules restrict any use of the information to criminally investigate or prosecute any alcohol or drug abuse patient.[facility] HospitalIn the event this information is protected by the Federal Confidentiality of Alcohol and Drug Abuse Patient Records regulations: The Federal rules restrict any use of the information to criminally investigate or prosecute any alcohol or drug abuse patient.[facility] HospitalIn the event this information is protected by the Federal Confidentiality of Alcohol and Drug Abuse Patient Records regulations: The Federal rules restrict any use of the information to criminally investigate or prosecute any alcohol or drug abuse patient.[facility] HospitalIn the event this information is protected by the Federal Confidentiality of Alcohol and Drug Abuse Patient Records regulations: The Federal rules restrict any use of the information to criminally investigate or prosecute any alcohol or drug abuse patient.[facility] HospitalIn the event this information is protected by the Federal Confidentiality of Alcohol and Drug Abuse Patient Records regulations: The Federal rules restrict any use of the information to criminally investigate or prosecute any alcohol or drug abuse patient.[facility] HospitalIn the event this information is protected by the Federal Confidentiality of Alcohol and Drug Abuse Patient Records regulations: The Federal rules restrict any use of the information to criminally investigate or prosecute any alcohol or drug abuse patient.[facility] HospitalIn the event this information is protected by the Federal Confidentiality of Alcohol and Drug Abuse Patient Records regulations: The Federal rules restrict any use of the information to criminally investigate or prosecute any alcohol or drug abuse patient.[facility] HospitalIn the event this information is protected by the Federal Confidentiality of Alcohol and Drug Abuse Patient Records regulations: The Federal rules restrict any use of the information to criminally investigate or prosecute any alcohol or drug abuse patient.[facility] HospitalIn the event this information is protected by the Federal Confidentiality of Alcohol and Drug Abuse Patient Records regulations: The Federal rules restrict any use of the information to criminally investigate or prosecute any alcohol or drug abuse patient.[facility] HospitalIn the event this information is protected by the Federal Confidentiality of Alcohol and Drug Abuse Patient Records regulations: The Federal rules restrict any use of the information to criminally investigate or prosecute any alcohol or drug abuse patient.[facility] HospitalIn the event this information is protected by the Federal Confidentiality of Alcohol and Drug Abuse Patient Records regulations: The Federal rules restrict any use of the information to criminally investigate or prosecute any alcohol or drug abuse patient.[facility] HospitalIn the event this information is protected by the Federal Confidentiality of Alcohol and Drug Abuse Patient Records regulations: The Federal rules restrict any use of the information to criminally investigate or prosecute any alcohol or drug abuse patient.[facility] HospitalIn the event this information is protected by the Federal Confidentiality of Alcohol and Drug Abuse Patient Records regulations: The Federal rules restrict any use of the information to criminally investigate or prosecute any alcohol or drug abuse patient.[facility] HospitalIn the event this information is protected by the Federal Confidentiality of Alcohol and Drug Abuse Patient Records regulations: The Federal rules restrict any use of the information to criminally investigate or prosecute any alcohol or drug abuse patient.[facility] HospitalIn the event this information is protected by the Federal Confidentiality of Alcohol and Drug Abuse Patient Records regulations: The Federal rules restrict any use of the information to criminally investigate or prosecute any alcohol or drug abuse patient.[facility] HospitalIn the event this information is protected by the Federal Confidentiality of Alcohol and Drug Abuse Patient Records regulations: The Federal rules restrict any use of the information to criminally investigate or prosecute any alcohol or drug abuse patient.[facility] HospitalIn the event this information is protected by the Federal Confidentiality of Alcohol and Drug Abuse Patient Records regulations: The Federal rules restrict any use of the information to criminally investigate or prosecute any alcohol or drug abuse patient.[facility] HospitalIn the event this information is protected by the Federal Confidentiality of Alcohol and Drug Abuse Patient Records regulations: The Federal rules restrict any use of the information to criminally investigate or prosecute any alcohol or drug abuse patient.[facility] HospitalIn the event this information is protected by the Federal Confidentiality of Alcohol and Drug Abuse Patient Records regulations: The Federal rules restrict any use of the information to criminally investigate or prosecute any alcohol or drug abuse patient.[facility]In the event this information is protected by the Federal Confidentiality of Alcohol and Drug Abuse Patient Records regulations: The Federal rules restrict any use of the information to criminally investigate or prosecute any alcohol or drug abuse patient.[facility] HospitalIn the event this information is protected by the Federal Confidentiality of Alcohol and Drug Abuse Patient Records regulations: The Federal rules restrict any use of the information to criminally investigate or prosecute any alcohol or drug abuse patient.[facility] HospitalIn the event this information is protected by the Federal Confidentiality of Alcohol and Drug Abuse Patient Records regulations: The Federal rules restrict any use of the information to criminally investigate or prosecute any alcohol or drug abuse patient.[facility] HospitalIn the event this information is protected by the Federal Confidentiality of Alcohol and Drug Abuse Patient Records regulations: The Federal rules restrict any use of the information to criminally investigate or prosecute any alcohol or drug abuse patient.[facility] HospitalIn the event this information is protected by the Federal Confidentiality of Alcohol and Drug Abuse Patient Records regulations: The Federal rules restrict any use of the information to criminally investigate or prosecute any alcohol or drug abuse patient.[facility] HospitalIn the event this information is protected by the Federal Confidentiality of Alcohol and Drug Abuse Patient Records regulations: The Federal rules restrict any use of the information to criminally investigate or prosecute any alcohol or drug abuse patient.[facility] HospitalIn the event this information is protected by the Federal Confidentiality of Alcohol and Drug Abuse Patient Records regulations: The Federal rules restrict any use of the information to criminally investigate or prosecute any alcohol or drug abuse patient.[facility] HospitalIn the event this information is protected by the Federal Confidentiality of Alcohol and Drug Abuse Patient Records regulations: The Federal rules restrict any use of the information to criminally investigate or prosecute any alcohol or drug abuse patient.[facility] HospitalIn the event this information is protected by the Federal Confidentiality of Alcohol and Drug Abuse Patient Records regulations: The Federal rules restrict any use of the information to criminally investigate or prosecute any alcohol or drug abuse patient.[facility] HospitalIn the event this information is protected by the Federal Confidentiality of Alcohol and Drug Abuse Patient Records regulations: The Federal rules restrict any use of the information to criminally investigate or prosecute any alcohol or drug abuse patient.[facility] HospitalIn the event this information is protected by the Federal Confidentiality of Alcohol and Drug Abuse Patient Records regulations: The Federal rules restrict any use of the information to criminally investigate or prosecute any alcohol or drug abuse patient.[facility] HospitalIn the event this information is protected by the Federal Confidentiality of Alcohol and Drug Abuse Patient Records regulations: The Federal rules restrict any use of the information to criminally investigate or prosecute any alcohol or drug abuse patient.[facility] HospitalIn the event this information is protected by the Federal Confidentiality of Alcohol and Drug Abuse Patient Records regulations: The Federal rules restrict any use of the information to criminally investigate or prosecute any alcohol or drug abuse patient.[facility] HospitalIn the event this information is protected by the Federal Confidentiality of Alcohol and Drug Abuse Patient Records regulations: The Federal rules restrict any use of the information to criminally investigate or prosecute any alcohol or drug abuse patient.[facility] HospitalIn the event this information is protected by the Federal Confidentiality of Alcohol and Drug Abuse Patient Records regulations: The Federal rules restrict any use of the information to criminally investigate or prosecute any alcohol or drug abuse patient.[facility] HospitalIn the event this information is protected by the Federal Confidentiality of Alcohol and Drug Abuse Patient Records regulations: The Federal rules restrict any use of the information to criminally investigate or prosecute any alcohol or drug abuse patient.[facility] HospitalIn the event this information is protected by the Federal Confidentiality of Alcohol and Drug Abuse Patient Records regulations: The Federal rules restrict any use of the information to criminally investigate or prosecute any alcohol or drug abuse patient.[facility] HospitalIn the event this information is protected by the Federal Confidentiality of Alcohol and Drug Abuse Patient Records regulations: The Federal rules restrict any use of the information to criminally investigate or prosecute any alcohol or drug abuse patient.[facility] HospitalIn the event this information is protected by the Federal Confidentiality of Alcohol and Drug Abuse Patient Records regulations: The Federal rules restrict any use of the information to criminally investigate or prosecute any alcohol or drug abuse patient.[facility] HospitalIn the event this information is protected by the Federal Confidentiality of Alcohol and Drug Abuse Patient Records regulations: The Federal rules restrict any use of the information to criminally investigate or prosecute any alcohol or drug abuse patient.[facility] HospitalIn the event this information is protected by the Federal Confidentiality of Alcohol and Drug Abuse Patient Records regulations: The Federal rules restrict any use of the information to criminally investigate or prosecute any alcohol or drug abuse patient.[facility] HospitalIn the event this information is protected by the Federal Confidentiality of Alcohol and Drug Abuse Patient Records regulations: The Federal rules restrict any use of the information to criminally investigate or prosecute any alcohol or drug abuse patient.[facility] HospitalIn the event this information is protected by the Federal Confidentiality of Alcohol and Drug Abuse Patient Records regulations: The Federal rules restrict any use of the information to criminally investigate or prosecute any alcohol or drug abuse patient.[facility] HospitalIn the event this information is protected by the Federal Confidentiality of Alcohol and Drug Abuse Patient Records regulations: The Federal rules restrict any use of the information to criminally investigate or prosecute any alcohol or drug abuse patient.[facility] HospitalIn the event this information is protected by the Federal Confidentiality of Alcohol and Drug Abuse Patient Records regulations: The Federal rules restrict any use of the information to criminally investigate or prosecute any alcohol or drug abuse patient.[facility] HospitalIn the event this information is protected by the Federal Confidentiality of Alcohol and Drug Abuse Patient Records regulations: The Federal rules restrict any use of the information to criminally investigate or prosecute any alcohol or drug abuse patient.[facility] HospitalIn the event this information is protected by the Federal Confidentiality of Alcohol and Drug Abuse Patient Records regulations: The Federal rules restrict any use of the information to criminally investigate or prosecute any alcohol or drug abuse patient.[facility] HospitalIn the event this information is protected by the Federal Confidentiality of Alcohol and Drug Abuse Patient Records regulations: The Federal rules restrict any use of the information to criminally investigate or prosecute any alcohol or drug abuse patient.[facility] HospitalIn the event this information is protected by the Federal Confidentiality of Alcohol and Drug Abuse Patient Records regulations: The Federal rules restrict any use of the information to criminally investigate or prosecute any alcohol or drug abuse patient.[facility] Hospital[facility] the event this information is protected by the Federal Confidentiality of Alcohol and Drug Abuse Patient Records regulations: The Federal rules restrict any use of the information to criminally investigate or prosecute any alcohol or drug abuse patient.[facility] HospitalIn the event this information is protected by the Federal Confidentiality of Alcohol and Drug Abuse Patient Records regulations: The Federal rules restrict any use of the information to criminally investigate or prosecute any alcohol or drug abuse patient.[facility] HospitalIn the event this information is protected by the Federal Confidentiality of Alcohol and Drug Abuse Patient Records regulations: The Federal rules restrict any use of the information to criminally investigate or prosecute any alcohol or drug abuse patient.[facility] HospitalIn the event this information is protected by the Federal Confidentiality of Alcohol and Drug Abuse Patient Records regulations: The Federal rules restrict any use of the information to criminally investigate or prosecute any alcohol or drug abuse patient.[facility] HospitalIn the event this information is protected by the Federal Confidentiality of Alcohol and Drug Abuse Patient Records regulations: The Federal rules restrict any use of the information to criminally investigate or prosecute any alcohol or drug abuse patient.[facility] HospitalIn the event this information is protected by the Federal Confidentiality of Alcohol and Drug Abuse Patient Records regulations: The Federal rules restrict any use of the information to criminally investigate or prosecute any alcohol or drug abuse patient.[facility] Reason for Visit (unrecogniz ed section and content) Reason Comments Radio Main J1 Specialty Diagnoses / Procedures Referred By Contac t Referred To Contact Radiology / RADIO GENERAL MN J Diagnoses KWL Procedures RADIOLOGIC EXAM CHEST SINGLE VIEW RADIOLOGIC EXAM CHEST 2 VIEWS RADIOLOGIC EXAM CHEST 3 VIEWS XR CHEST Hua Wheeler MD [address] [place] [address]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 Sun01/05/25 at 1949, If ordered PRN for pain, nurse is permitted to administer this medication for higher pain scores based on patient preference? Yes Or acetaminophen (Tylenol) oral liquid 650 mgJump to med 650 mg, nasogastric tube, Every 4 hours PRN, fever (temp greater than 38.0 C), first line, Starting on Sun01/05/25 at 1950 Or acetaminophen (Tylenol) suppository 650 mgJump to med 650 mg, rectal, Every 4 hours PRN, fever (temp greater than 38.0 C), first line, Starting on Sun01/05/25 at 1949, If ordered PRN for pain, nurse is permitted to administer this medication for higher pain scores based on patient preference? Yes Goals (unrecognized section and content) Goals may be documented in a n alternate sectionGoals may be documented in an alternate section FOR RECORDS PERTAINING TO PATIENTS WHO ARE OR HAVE BEEN ENROLLED IN A CHEMICAL DEPENDENCY/SUBSTANCEABUSE PROGRAM, SOME INFORMATION MAY BE OMITTED. This clinical summary was aggregated from multiple sources. Caution should be exercised in using it in the provision of clinical care. This summary normalizes information from multiple sources, and as a consequence, information in this document may materially change the coding, format and clinical context of patient data. In addition, data may be omitted in some cases. CLINICAL DECISIONS SHOULD BE BASED ON THE PRIMARY CLINICAL RECORDS. [facility]. provides no warranty or guarantee of the accuracy or completeness of information in this document.
[2025-01-31 01:50] LABS: Hematocrit 31.3 % (40-54); Hemoglobin 9.5 g/dL (13.0-16.5); Immature Granulocytes Count 0.030 X10^3/uL (0.0-0.0); Mean Corp Hgb Conc 30.4 g/dL (32-36); Mean Corpuscular Volume 98.1 fL (80-94); Mean Platelet Vol. 9.2 fl (6.2-12.0); NRBC Flagged by Analyzer 0.2 % (0-5); POSITIVE MORPHOLOGY YES; Platelet Count 244 K/mm3 (150-450); RBC Distribution Width CV 19.8 % (11.6-14.6); RBC Distribution Width SD 68.7 fl (35.1-43.9); Red Blood Count 3.19 M/mm3 (4.6-6.2); White Blood Count 9.8 K/mm3 (4.4-11.0)
--- NOTE | 2025-01-31 01:52 | EDS_ITS ---
HPI History of Present Illness Chief Complaint: Shortness of Breath Narrative Narrative: Patient was seen and examined after presenting to ED for shortness of breath patient does have a history of Alport syndrome he he is on dialysis is Sunday he did 3 out of his 4 hours with the dialysis today and just did not feel well and so he cut it short. States that he was having bodyaches and some abdominal discomfort as well as nausea in addition to shortness of breath took DayQuil and NyQuil at home. [facility] Medical History ESRD (end stage renal disease) Chronic anemia Former smoker Hypertension Dialysis patient Arteriovenous fistula of right upper extremity Alports syndrome Home Medications Medication Instructions Recorded Last Taken Type cinacalcet 30 mg tablet 30 mg PO QPM 02/11/24 Unknow n History losartan 100 mg tablet 100 mg PO DAILY blood pressu re 02/11/24 10/12/24 History sevelamer carbonate 800 mg tablet 2,400 mg PO TID supp lement 02/11/24 10/12/24 History vit B,C-folic ac 800 mcg-zinc 12.5 1 tab PO DAILY josette min 02/11/24 10/12/24 History mg-selen-D3 2,000 unit-vit E tablet (RenaPlex-D) amlodipine 5 mg tablet 5 mg PO DAILY #30 tabs 10/14 Unknown Rx carvedilol 25 mg tablet 25 mg PO BIDCM #60 tabs 09/17 12/11 Unknown Rx Allergy/AdvReac Type Severity Reaction Status Date / Time No Known Allergies Allergy Verified 10/13/24 08:14 Family History Mother Kidney disease Cancer Father CVA (cerebral vascular accident) Hypertension Surgical History S/P arteriovenous (AV) fistula creation Social History household members: family housing: house Smoking Status: Former smoker alcohol intake: never substance use type: does not use ROS ROS ED ROS Narrative Pertinent Positives: Shortness of breath abdominal pain body aches on dialysis occasional sharp shooting pain in the chest nausea and vomiting Pertinent Negatives: Fevers chills black or bloody stool The remainder of review of systems negative unless otherwise stated in the HPI above. Systems reviewed including constitutional, psychiatric, cardiovascular, respiratory, integument, HENT, gastrointestinal. EXAM Physical Exam Narrative Exam Narrative: Patient is afebrile hemodynamically stable although just slightly tachycardic does not appear toxic or in distress abdomen is soft nontender nondistended lung sounds for the most part were clear intact and equal MSPs in the extremities skin is warm and well-perfused normal range of motion of head and neck. Const Vital Signs: 01/31/25 01:15 01/31/25 01:17 01/31/25 02:20 Temperature 98.6 F 98.6 F Temperature Source Oral Oral Pulse Rate 108 H 107 H Respiratory Rate 19 H 14 Blood Pressure 194/144 H 194/144 H Blood Pressure Mean 160 160 Pulse Ox 90 91 Oxygen Delivery Method Room Air Room Air Room Air Oxygen Flow Rate (L/min) 2 01/31/25 02:20 01/31/25 03:00 Temperature 98.7 F 98.7 F Temperature Source Oral Oral Pulse Rate 88 109 H Respiratory Rate 20 H 29 H Blood Pressure 117/66 171/139 H Blood Pressure Mean 83 149 Pulse Ox 95 97 Oxygen Delivery Method Nasal Cannula Room Air Oxygen Flow Rate (L/min) 2 Sepsis Attestation Sepsis Alert: Yes Sepsis Attestation: Agree w/Sepsis Date exam was performed: 01/31/25 Time exam was performed: 01:00 Possible Source of Sepsis: Pulmonary Supportive Findings: Patient now requiring supplemental oxygen Fluid Resuscitation Fluid Resuscitation ordered: Fluids not indicated Sepsis Note Date exam was performed: 01/31/25 Time exam was performed: 03:52 Sepsis Attestation: Sepsis re-evaluation was performed MDM MDM MDM Narrative Medical decision making narrative: Nursing notes, triage notes, available previous documentation, and vital signs were reviewed. Any discrepancies noted were addressed. Differential Diagnoses: Low suspicion for ACS this seems like patient is having more of a viral syndrome not consistent with meningitis lower suspicion for PE Interventions: Kayexalate calcium gluconate albuterol insulin sodium bicarb dextrose Antibiotics Given: Ceftriaxone Labs Reviewed: Patient without a leukocytosis or leukopenia hemoglobin is 9.5 which is around baseline for him he had initial potassium level of 6.7 we repeated it to make sure it was not an accurate or a lab error because he had dialysis earlier today came back at 7 creatinine is 7.1 respiratory panel is neg ative Imaging Reviewed: Personally reviewed and interpreted by me: Chest x-ray there is a right lower lobe pneumonia EKG: Sinus tachycardia rate of [address] segment elevation I do not see any othe r evidence of ischemia or evidence of hyperkalemia changes. EKG interpretation is noted and agreed to in the EMR. The interpretation of this patient's EKG contributed directly to the care and management of this patient. Previous Documentation Reviewed: None available or applicable at this time. ED Course: Patient presenting with symptoms as described above seems to be more consistent with a viral process. Patient was found to have a right lower lobe pneumonia was treated with antibiotics also found to be hyperkalemic so hyperkalemia protocol was initiated I did have a [id number] discussion with hospitalist Dr. Montiel who is agreeable to admission to the intensive care unit patient is otherwise hemodynamically stable. 33 minutes of critical care time utilized in managing the patient. This is due to high probability of and deterioration of the patient based on the patient's condition and excludes any separately billable procedures. This note was made utilizing voice recognition software. All attempts were made to correct spelling or other errors prior to note completion. However, due to the fast-paced nature of emergency medicine, some errors may still be present. Lab Data Labs: Laboratory Results - last 24 hr 01/31/25 01/31/25 01:44 02:55 WBC 9.8 RBC 3.19 L Hgb 9.5 L Hct 31.3 L MCV 98.1 H MCH 29.8 MCHC 30.4 L RDW Std Deviation 68.7 H RDW Coeff of Mono 19.8 H Plt Count 244 MPV 9.2 Immature Gran % (Auto) 0.300 Neut % (Auto) 68.9 Lymph % (Auto) 18.6 L Hendricks % (Auto) 5.2 Eos % (Auto) 6.6 H Baso % (Auto) 0.4 Absolute Neuts (auto) 6.7 Absolute Lymphs (auto) 1.82 Nucleated RBC % 0.2 Differential Comment SCANNED Polychromasia 1+ Basophilic Stippling RARE Anisocytosis 1+ Macrocytosis RARE Sodium 138 137 Potassium 6.7 H* 7.0 H* Chloride 95 L 95 L Carbon Dioxide 29.8 28.6 Anion Gap 13 13 BUN 28 H 28 H Creatinine 7.15 H 7.14 H Estim Creat Clear Calc 16.31 L 16.33 L Est GFR (MDRD) Non-Af 10 L 10 L BUN/Creatinine Ratio 3.9 L 4.0 L Glucose 106 H 105 H Calcium 10.1 10.1 Radiography Diagnostic Testing: Clinical Impression(s) from Imaging Studies Chest X-Ray 01/31/25 01:55 IMPRESSION: Stable appearing cardiomegaly and mild CHF changes. Newly appreciated right lower lung zone pneumonic consolidation. Follow-up is recommended Reading Location: [place] [id number] Discharge Plan Triage Chief Complaint: Shortness of Breath Other Complaint: Abd Pain Chest Pain ED Provider: Cailin Ferguson Dx/Rx/DC Orders Clinical Impression: Sepsis, Right lower lobe pneumonia, Hyperkalemia, History of end stage renal disease, Alport syndrome, Acute hypoxic respiratory failure Primary Care Provider: Care Physician,No Primary
--- NOTE | 2025-01-31 01:55 | RAD_ITS ---
PROCEDURE: CHEST PA AND LATERAL 01/31/2025 REASON FOR EXAM: SHORTNESS OF BREATH TECHNIQUE: Procedure Code: RADCXR Modality: DX Procedure: CHEST PA AND LATERAL COMPARISON: 10/13/2024 FINDINGS: Stable appearing cardiomegaly and pulmonary venous congestion changes. Newly appreciated right lower lung zone pneumonic consolidation. No effusion. No pneumothorax. Stable osseous structures. RAD/Chest PA and Lateral IMPRESSION: Stable appearing cardiomegaly and mild CHF changes. Newly appreciated right lower lung zone pneumonic consolidation. Follow-up is recommended Reading [facility] [address]
[2025-01-31] MEDS: DiphenhydrAMINE 50 MG/ML Syringe 25 MG IV (02:14)
[2025-01-31 02:26] LABS: Differential Indicated SCAN CRITERIA MET
[2025-01-31 02:31] LABS: Anisocytosis 1+; Basophilic Stippling RARE; Differential Comment SCANNED; Macrocytosis RARE; Polychromasia 1+
[2025-01-31 02:52] LABS: Anion Gap 13 (5-15); BUN 28 mg/dL (4-19); BUN/Creat Ratio 3.9 RATIO (10-20); Calcium,Total 10.1 mg/dL (7.6-11.0); Carbon Dioxide 29.8 mmol/L (21.0-32.0); Chloride 95 mmol/L (98-108); Estimated Creatinine Clearance 16.31 ml/min (50-250); Glucose 106 mg/dL (70-99); Potassium 6.7 mmol/L (3.3-5.1)
[2025-01-31 03:25] LABS: Anion Gap 13 (5-15); BUN 28 mg/dL (4-19); BUN/Creat Ratio 4.0 RATIO (10-20); Calcium,Total 10.1 mg/dL (7.6-11.0); Carbon Dioxide 28.6 mmol/L (21.0-32.0); Chloride 95 mmol/L (98-108); Estimated Creatinine Clearance 16.33 ml/min (50-250); Glucose 105 mg/dL (70-99); Potassium 7.0 mmol/L (3.3-5.1)
--- NOTE | 2025-01-31 03:49 | HP.PCM.HOS_ITS ---
HPI - General General Date of Admission: 01/31/25 Date of Service: 01/31/25 Chief Complaint: Dyspnea, cough, fatigue, malaise. HPI Narrative The patient is a 24 y/o M w/ PMHx: ESRD on HD MWF secondary to Alport syndrome , HTN, Chronic anemia/AOCD, Former tobacco use who presents to the [facility] ED on 01/31/2025 with history of ongoing dyspnea worsening over the last several days with fatigue and malaise as well as body aches and mild abdominal discomfort with nausea with occasional emesis with self administration of NyQuil with no marked improvement prompting eventual ED evaluation precautions. He denies any recent fevers, cough without marked sputum production especially with deep inspiratory effort. Workup in the ED included T98.6, heart rate 108, BP 194/144, respiratory rate 19, 90% on room air, CBC with WC 9.8, Therese 9.5, MCV 98.1, platelet 244 without marked shift, BMP with potassium 7.0, chloride 95, BUN/Cryan 28/7.14, glucose 105, chest x-ray with stable appearing cardiomegaly and mild CHF changes with a newly appreciated right lower lung zone pneumonic consolidation, EKG with sinus tachycardia with no acute evidence of ischemia no evidence of peaked T waves. In the ED patient ministered Zofran 4 mg IV x 1, Ativan 1 mg IV x 1, Benadryl 25 mg IV x 1, calcium gluconate 1 g IV x 1, dextrose amp, albuterol 10 mg and elation x 1, insulin 10 units IV x 1, Slight 30 g p.o. x 1, rocephin 1 gm IV x 1. [facility] Medical History ESRD (end stage renal disease) Chronic anemia Former smoker Hypertension Dialysis patient Arteriovenous fistula of right upper extremity Alports syndrome Home Medications Medication Instructions Recorded Last Taken Type cinacalcet 30 mg tablet 30 mg PO QPM 02/11/24 Unknow n History losartan 100 mg tablet 100 mg PO DAILY blood pressu re 02/11/24 10/12/24 History sevelamer carbonate 800 mg tablet 2,400 mg PO TID supp lement 02/11/24 10/12/24 History vit B,C-folic ac 800 mcg-zinc 12.5 1 tab PO DAILY josette min 02/11/24 10/12/24 History mg-selen-D3 2,000 unit-vit E tablet (RenaPlex-D) amlodipine 5 mg tablet 5 mg PO DAILY #30 tabs 10/14 Unknown Rx carvedilol 25 mg tablet 25 mg PO BIDCM #60 tabs 09/17 12/11 Unknown Rx Allergy/AdvReac Type Severity Reaction Status Date / Time No Known Allergies Allergy Verified 10/13/24 08:14 Family History Mother Kidney disease Cancer Father CVA (cerebral vascular accident) Hypertension Surgical History S/P arteriovenous (AV) fistula creation Social History household members: family housing: house Smoking Status: Former smoker alcohol intake: never substance use type: does not use ROS ROS Narrative Admission Review of Systems: CONSTITUTIONAL: No weight loss, fever, chills, + weakness or fatigue. HEENT: Eyes: No visual loss, blurred vision, double vision or yellow sclerae. Ears, Nose, Throat: No hearing loss, sneezing, congestion, runny nose or sore throat. SKIN: No rash or itching, lesions, wounds. CARDIOVASCULAR: No chest pain, chest pressure or chest discomfort, palpitations, edema, orthopnea, syncopal events. RESPIRATORY: + Dyspnea, cough without marked sputum production. No wheezing, hemoptysis. GASTROINTESTINAL: + anorexia, nausea with emesis, mild abdominal discomfort. No diarrhea, melena, BRBPR. GENITOURINARY: No dysuria, frequency, urgency or retention. NEUROLOGICAL: No headache, dizziness, syncope, paralysis, ataxia, numbness or tingling in the extremities, focal weakness, change in bowel or bladder control, seizure. MUSCULOSKELETAL: + muscle, back pain, joint pain or stiffness. HEMATOLOGIC: Chronic anemia. No marked easy history of+ bleeding or bruising. LYMPHATICS: No enlarged nodes. No history of splenectomy. PSYCHIATRIC: No history of depression or anxiety. ENDOCRINOLOGIC: No reports of sweating, cold or heat intolerance. No polyuria or polydipsia. ALLERGIES: No history of asthma, hives, eczema or rhinitis. Vital Signs Vital Signs Vital Signs: 01/31/25 01:15 01/31/25 01:17 01/31/25 02:20 Temperature 98.6 F 98.6 F Temperature Source Oral Oral Pulse Rate 108 H 107 H Respiratory Rate 19 H 14 Blood Pressure 194/144 H 194/144 H Blood Pressure Mean 160 160 Pulse Ox 90 91 Oxygen Delivery Method Room Air Room Air Room Air Oxygen Flow Rate (L/min) 2 01/31/25 02:20 01/31/25 03:00 Temperature 98.7 F 98.7 F Temperature Source Oral Oral Pulse Rate 88 109 H Respiratory Rate 20 H 29 H Blood Pressure 117/66 171/139 H Blood Pressure Mean 83 149 Pulse Ox 95 97 Oxygen Delivery Method Nasal Cannula Room Air Oxygen Flow Rate (L/min) 2 Weight Weight: 173 lb 11.588 oz Body Mass Index (BMI) 24.9 Physical Exam Narrative Physical Examination: General: Awake, alert, oriented x 3 and cooperative, seated upright in the ED bed, fatigued and ill-appearing. Skin: Normal color, normal turgor, no icterus, no cyanosis except occasional stage ecchymoses, abrasion, picked regions especially the right upper extremity, AVF right upper extremity with positive thrill. HEENT: AT/NC, EOMI, PERRLA, dry MM, no carotid bruits or JVD noted. Lungs: Diminished, greater bases, right significantly greater than left, mildly increased respiratory rate but no distress, notable coughing elicited with any deep inspiratory effort, no appreciated rales, ronchi or wheezing. Heart: Mildly tachycardic with regular rhythm; no gallop, rub audible. Abdomen: Soft, NTTP, ND, mildly hyperactive BS, no appreciated HSM. Extremities: No cyanosis, clubbing, or edema, AVF right upper extremity with positive thrill. Neurological: Patient awake, alert, oriented as noted, cognitive function intact; pupils equally reactive to light and accommodation, cranial nerves grossly normal, moving all 4 extremities, no focal deficits, strength moderately to severely globally decreased secondary to acute presentation. Psychiatric: Affect appears flat, fatigued, ill-appearing, no acute evidence of depressive or anxiety feelings. Results Lab / Micro Data 01/31/25 01:44 01/31/25 02:55 Labs: Laboratory Results - last 24 hr 01/31/25 01:44: WBC 9.8, RBC 3.19 L, Hgb 9.5 L, Hct 31.3 L, MCV 98.1 H, MCH 29.8, MCHC 30.4 L, RDW Std Deviation 68.7 H, RDW Coeff of Mono 19.8 H, Plt Count 244, MPV 9.2, Immature Gran % (Auto) 0.300, Neut % (Auto) 68.9, Lymph % (Auto) 18.6 L, Barry % (Auto) 5.2, Eos % (Auto) 6.6 H, Baso % (Auto) 0.4, Absolute Neuts (auto) 6.7, Absolute Lymphs (auto) 1.82, Nucleated RBC % 0.2, Differential Comment SCANNED, Polychromasia 1+, Basophilic Stippling RARE, Anisocytosis 1+, Macrocytosis RARE, Sodium 138, Potassium 6.7 H*, Chloride 95 L, Carbon Dioxide 29.8, Anion Gap 13, BUN 28 H, Creatinine 7.15 H, Estim Creat Clear Calc 16.31 L, Est GFR (MDRD) Non-Af 10 L, BUN/Creatinine Ratio 3.9 L, Glucose 106 H, Calcium 10.1 01/31/25 02:55: Sodium 137, Potassium 7.0 H*, Chloride 95 L, Carbon Dioxide 28.6, Anion Gap 13, BUN 28 H, Creatinine 7.14 H, Estim Creat Clear Calc 16.33 L, Est GFR (MDRD) Non-Af 10 L, BUN/Creatinine Ratio 4.0 L, Glucose 105 H, Calcium 10.1 Micro: Microbiology 01/31/25 01:50 Mucosa - Nose SARS-CoV-2, Influenza & RSV (PCR) - Final Imaging Radiology Impression Chest X-Ray 01/31/25 01:55 IMPRESSION: Stable appearing cardiomegaly and mild CHF changes. Newly appreciated right lower lung zone pneumonic consolidation. Follow-up is recommended Reading Location: [facility], [facility] Assessment & Plan Assessment/Plan (1) Pneumonia: PLAN: Plan The patient is a 24 y/o M w/ PMHx: ESRD on HD MWF secondary to Alport syndrome , HTN, Chronic anemia/AOCD, Former tobacco use who presents to the [facility] ED on 01/31/2025 with history of ongoing dyspnea worsening over the last several days with fatigue and malaise as well as body aches and mild abdominal discomfort with nausea with occasional emesis with self administration of NyQuil with no marked improvement prompting eventual ED evaluation precautions. He denies any recent fevers, cough without marked sputum production especially with deep inspiratory effort. #1. Dyspnea, fatigue, malaise, body aches secondary to right lower lobe pneumonia with concern for notable consolidation, possible GN/GP organisms: Will admit to the ICU given #2 notable concurrent hyperkalemia, will consult universal grinder tool per protocol, will obtain CT chest with contrast given plan for more emergent HD as noted, currently appropriate on room air however if necessary will maintain on oxygen with wean as tolerated, PRN albuterol, maintain on IV Zosyn and and Vancomycin given concerns pending CT chest as noted with with pending MRSA screen requested w/ ability to de-escalate if appropriate, HOB, IS parameters w/ pending sputum cultures, full respiratory viral panel and urine antigens. Bld cx x 2 obtained in the ED. #2. Significant hyper hyperkalemia with underlying ESRD secondary to Alport syndrome: Patient with ongoing HD Sunday, last HD session on day prior to presentation with completion of 3 out of 4 hours, nephrology consult will be placed for emergent HD needs given significant hyperkalemia with no obvious hemolysis noted, in the interim we will initiate hyperkalemia protocols and continue to closely trend BMP, will continue sevelamer and cincalcet regimen. #3. Chronic macrocytic anemia/AOCD: Admission hemoglobin 9.5, MCV 98.1, baseline hemoglobin primarily 8-9 range, stable, continue to trend. #4. Hypertension: Continue home regimen including Coreg, amlodipine with hold parameters as needed, PRN hydralazine. Temporarily holding ARB given hyperkalemia as noted. #5. Former tobacco use: Encourage continued tobacco cessation. #6. DVT prophylaxis: Heparin. Charges/Coding Visit Charges Inpatient E&M: 13230 Init Hosp L3
[2025-01-31] MEDS: Ceftriaxone 2 GM in 0.9% Normal Saline (50mL MB+) 50 ML IV (03:50)
[2025-01-31] MEDS: Insulin Lispro 10 UNIT in Syringe 0 ML 6 UNIT IV (03:51)
[2025-01-31] MEDS: Albuterol *CONC* 2.5mg/0.5mL VIAL.NEB. 10 MG INHALATION (03:51)
--- NOTE | 2025-01-31 03:57 | CT_ITS ---
PROCEDURE: CHEST WITH CONTRAST 01/31/2025 REASON FOR EXAM: PNA, CONSOLIDATION TECHNIQUE: Procedure Code: CTCHW Modality: CT Procedure: CHEST WITH CONTRAST Coronal and Sagittal reconstruction series were provided. CONTRAST: Isovue 370 VOLUME: 72 mL One or more dose reduction techniques were used (e.g., Automated exposure control, adjustment of the mA and/or kV according to patient size, use of iterative reconstruction technique). RADIATION DOSE SUMMARY: CTDlvol: 10.53 mGy DLP: 380.27 MGycm COMPARISON: Chest x-ray 01/31/2025. FINDINGS: Hardware: Monitor electrodes overlie the chest. Lymph nodes: No lymphadenopathy Heart and Vasculature: Moderate cardiomegaly. Pericardial fluid effusion. No atherosclerotic calcifications of the coronary arteries. Lungs and Airways: Diffuse ground-glass densities. Atelectasis in the posterior lower lobes. Pneumonia can not be excluded. Pleura: Large right and trace left pleural effusions. Upper Abdomen: No acute findings. Bones: No acute bony abnormalities. CT/Chest WITH Contrast IMPRESSION: Coronary artery calcification (CAC) is absent Cardiomegaly and pleural effusions with diffuse ground-glass densities consiste nt with CHF. Atelectasis in the posterior lower lobes. Airspace densities in the posterior lower lobes may represent atelectas is or pneumonia which can not be excluded. Reading Location: [facility]
--- OUTSIDE RECORDS SUMMARY | 2025-01-31 04:01 | XMS RPT_ITS | CCD ---
Author Organization [facility] Care Team Providers Care Construction Specialist Name Role Phone PAUL ARENAS Unavailable Unavailable [...] Primary Care Unavailable Darryn Grant MD Unavailable [phone] Ray Lyons Unavailable Natacha PEREIRA, Ivette Primary Care Provider Pcp SENIOR ORACLE ADF DEVELOPER, No Primary Care Provider Unavailabl e Pcp SENIOR ORACLE ADF DEVELOPER, No Primary Care Provider Unavailabl e NATACHA, IVETTE Primary Care Unavailable THEODORE LYNN Attending Unavailable Pcp SENIOR ORACLE ADF DEVELOPER, No Primary Care Provider Unavailabl e NATACHA, [...] LUI COOPER Admitting Unavail able Natacha PEREIRA, [facility] Primary Care Provider NATACHA, IVETTE Primary Care [...] 03-21-2022 take 2 tablets by mo [facility] once daily amLODIPine 5 mg oral tablet [...] (PROTONIX) 40 mg tablet polyethylene glycol 3350 05599 mg powder for oral solution (1 source) [...] Active take 3 tablets by mo [facility] three times daily before mealtime sevelamer carbonate (Renvela) 800 mg tablet Take 3 tablets (2,400 mg) by mouth 3 times a day before meals. Active Comment on above: once daily. sodium zirconium cyclosilicate 65109 mg powder for oral suspension (1 source) [...] 0.1 mL by INTRADERMA L route. Vit B,S-Zg-Tfhe-Selen-Vit D3-E (Renaplex-D) 800 mcg-12.5 mg -2,000 unit tablet (1 source) Start: 02-11-2024 Vit B,P-Uq-Ectp-Selen-Vit D3-E (Renaplex-D) 800 mcg-12.5 mg -2,000 unit tablet Active 1 {tbl} PO DAILY February 11, 2024 1:00am vitamin Vit B,A-Sh-Sqxh-Selen-Vit D3-E [Vit B,C-Folic Ac 800 Mcg-Zinc 12.5 Mg-Selen-D3 2,000 Unit-Vit E Tablet] (Vit B,C-Folic Ac 800 Mcg-Zinc 12.5 Mg-Selen-D3 ) 800 mcg-12.5 mg -2,000 unit tablet (2 sources) Start: 02-11-2024 Vit B,F-Vz-Hwoy-Selen-Vit D3-E [Vit B,C-Folic Ac 800 Mcg-Zinc 12.5 [...] are negative. PAST HISTORY Past Medical History: @[facility]@ Past Surgical History: has no past [...] Patient could (more content not included)... Normal [facility] POC BASIC METABOLIC PANEL - Windy 01-22-2025 Chloride [Moles/Vol] 103 mmol/L Normal 98-108 [facility] Comment on above: Order Comment: Criti gurmeet result acted upon time of test. Test performed at bedside. [facility] has implemented the eGFR calculation approach that does not have a coefficient for race that conforms to the NKF-ASN Task Force Recommendations. CO2 [Moles/Vol] 27 mmol/L Normal 21-32 [facility] Comment on above: Order Comment: Criti gurmeet result acted upon time of test. Test performed at bedside. [facility] has implemented the eGFR calculation approach that does not have a coefficient for race that conforms to the NKF-ASN Task Force Recommendations. Creatinine [Mass/Vol] 12.54 mg/dL Off scale high 0.50-1.30 [facility] Comment on above: Order Comment: Criti gurmeet result acted upon time of test. Test performed at bedside. [facility] has implemented the eGFR calculation approach that does not have a coefficient for race that conforms to the NKF-ASN Task Force Recommendations. Glucose [Mass/Vol] 96 mg/dL Normal 65-99 [facility] Comment on above: Order Comment: Criti gurmeet result acted upon time of test. Test performed at bedside. [facility] has implemented the eGFR calculation approach that does not have a coefficient for race that conforms to the NKF-ASN Task Force Recommendations. POC GFR 5 mL/min/1.73 m2 Low >=60 [facility] Comment on above: Order Comment: Criti gurmeet result acted upon time of test. Test performed at bedside. [facility] has implemented the eGFR calculation approach that does not have a coefficient for race that conforms to the NKF-ASN Task Force Recommendations. Result Comment: Gentry mated GFR was calculated using the 2020 CKD-EPI creatinine equation. POC IONIZED CALCIUM 4.4 mg/dL Low 4.5-5.3 [facility] Comment on above: Order Comment: Criti gurmeet result acted upon time of test. Test performed at bedside. [facility] has implemented the eGFR calculation approach that does not have a coefficient for race that conforms to the NKF-ASN Task Force Recommendations. Potassium [Moles/Vol] 7.0 mmol/L Off scale high 3.5-5.1 [facility] Comment on above: Order Comment: Criti gurmeet result acted upon time of test. Test performed at bedside. [facility] has implemented the eGFR calculation approach that does not have a coefficient for race that conforms to the NKF-ASN Task Force Recommendations. Sodium [Moles/Vol] 135 mmol/L Normal 135-145 [facility] Comment on above: Order Comment: Criti gurmeet result acted upon time of test. Test performed at bedside. [facility] has implemented the eGFR calculation approach that does not have a coefficient for race that conforms to the NKF-ASN Task Force Recommendations. Urea nitrogen [Mass/Vol] 45 mg/dL High 8-25 [facility] Comment on above: Order Comment: Criti gurmeet result acted upon time of test. Test performed at bedside. [facility] has implemented the eGFR calculation approach that does not have a coefficient for race that conforms to the NKF-ASN Task Force Recommendations. POC CBC AND DIFFERENTIALon 03-24-2024 BASOPHILS ABSOLUTE COUNT 0.03 K/mcL Normal 0.00-0.30 [facility] Basophils/100 WBC (Bld) 0.3 % Normal [facility] Eosinophils (Bld) [#/Vol] 0.12 10*3/uL Normal 0.00-0.50 [facility] Eosinophils/100 WBC (Bld) 1.2 % Normal [facility] Erythrocyte distribution width (RBC) [Ratio] 18.5 % High 11.6-14.8 [facility] Hematocrit (Bld) [Volume fraction] 33.6 % Low 41.0-53.0 [facility] Hemoglobin (Bld) [Mass/Vol] 10.3 g/dL Low 13.5-17.5 [facility] IG ABSOLUTE 0.01 K/mcL Normal 0.00-0.30 [facility] IG PERCENT 0.10 % Normal [facility] Comment on above: Result Comment: The IG parameter is the percentage of metamyelocytes, myelocytes and promyelocytes. An immature granulocyte count (IG) of 1% or more suggests the possibility of infection, an IG count of 3% is very likely related to an infection. Lymphocytes (Bld) [#/Vol] 1.04 10*3/uL Normal 0.90-4.00 [facility] Lymphocytes/100 WBC (Bld) 10.5 % Normal [facility] MCH (RBC) [Entitic mass] 30.2 pg Normal 26.0-34.0 [facility] MCV (RBC) [Entitic vol] 98.5 fL Normal 80.0-100.0 [facility] MEAN CORPUSCULAR HEMOGLOBIN CONC 30.7 g/dL Low 31.0-37.0 [facility] Monocytes (Bld) [#/Vol] 0.44 10*3/uL Normal 0.30-0.90 [facility] Monocytes/100 WBC (Bld) 4.5 % Normal [facility] NEUTROPHILS ABSOLUTE COUNT 8.23 K/mcL High 1.70-7.00 [facility] Neutrophils/100 WBC (Bld) 83.4 % Normal [facility] Platelet mean volume (Bld) [Entitic vol] 9.5 fL Normal 9.4-12.4 [facility] Platelets (Bld) [#/Vol] 230 10*3/uL Normal 150-400 [facility] RBC (Bld) [#/Vol] 3.41 10*6/uL Low 4.50-5.90 [facility] WBC (Bld) [#/Vol] 9.87 10*3/uL Normal 4.50-11.00 [facility] POC LIVER PANEL PLUS RALSon 01-22-2025 Albumin [Mass/Vol] 4.5 g/dL Normal 3.2-5.2 [facility] ALP [Catalytic activity/Vol] 64 U/L Normal 40-140 [facility] ALT [Catalytic activity/Vol] 17 U/L Normal 0-40 [facility] Amylase [Catalytic activity/Vol] 11 U/L Low 25-115 [facility] Amylase [Catalytic activity/Vol] 25 U/L Normal 11-51 [facility] AST [Catalytic activity/Vol] 20 U/L Normal 0-45 [facility] Bilirubin [Mass/Vol] 1.1 mg/dL Normal 0.0-1.3 [facility] Protein [Mass/Vol] 6.9 g/dL Normal 6.0-8.0 [facility] Basic metabolic 2000 panelon 01-06-2025 Anion gap [Moles/Vol] 16 mmol/L 10 - 2 0 mmol/L [facility] Calcium [Mass/Vol] 9.0 mg/dL 8.6 - 10. 3 mg/dL [facility] Chloride [Moles/Vol] 99 mmol/L 98 - 10 7 mmol/L [facility] CO2 [Moles/Vol] 30 mmol/L 21 - 32 mmol/L [facility] Creatinine [Mass/Vol] 7.40 mg/dL High 0.50 - 1.30 mg/dL [facility] GFR/1.73 sq M.predicted among non-blacks MDRD (S/P/Bld) [Vol rate/Area] 10 mL/min/{1.73_m2} Low - PINF [facility] Comment on above: Calculations of gentry mated GFR are performed using the 2020 CKD-EPI Study Refit equation without the race variable for the IDMS-Traceable creatinine methods. https://jasn.asnjournals.org/content//ASN.167188 5146 Glucose [Mass/Vol] 83 mg/dL 74 - 99 mg/dL [facility] Interpretation and review of laboratory results Abnormal [facility] Potassium [Moles/Vol] 5.7 mmol/L High 3.5 - 5.3 mmol/L [facility] Sodium [Moles/Vol] 139 mmol/L 136 - 145 mmol/L [facility] Urea nitrogen [Mass/Vol] 20 mg/dL 6 - 23 mg/dL [facility] Anion gap [Moles/Vol] 16 mmol/L Normal 10-20 [facility] Comment on above: Performed By: #### 5 902-2 #### ALIVIA WALLACE ([id number]) [facility] ([facility]) [address] [place] [address] Calcium [Mass/Vol] 9.0 mg/dL Normal 8.6-10.3 [facility] Comment on above: Performed By: #### 5 902-2 #### ALIVIA WALLACE ([id number]) [facility] ([facility]) [address] [place] [address] Chloride [Moles/Vol] 99 mmol/L Normal 98-107 [facility] Comment on above: Performed By: #### 5 902-2 #### ALIVIA WALLACE ([id number]) [facility] ([facility]) [address] [place] [address] CO2 [Moles/Vol] 30 mmol/L Normal 21-32 [facility] Comment on above: Performed By: #### 5 902-2 #### ALIVIA WALLACE ([id number]) [facility] ([facility]) [address] [place] [address] Creatinine [Mass/Vol] 7.40 mg/dL High 0.50-1.30 [facility] Comment on above: Performed By: #### 5 902-2 #### ALIVIA WALLACE ([id number]) [facility] ([facility]) [address] [place] [address]303 Glomerular filtration rate 10 mL/min/1.73m*2 Low >60 [facility] Comment on above: Result Comment: Calc ulations of estimated GFR are performed using the 2020 CKD-EPI Study Refit equation without the race variable for the IDMS-Traceable creatinine methods. https://jasn.asnjournals.org/content/early//ASN.743266 4818 Performed By: #### 5 902-2 #### ALIVIA WALLACE ([id number]) [facility] ([facility]) [address] [place] [address] 79181 Glucose [Mass/Vol] 83 mg/dL Normal 74-99 [facility] Comment on above: Performed By: #### 5 902-2 #### ALIVIA WALLACE ([id number]) [facility] ([facility]) [address] [place] [address] Potassium [Moles/Vol] 5.7 mmol/L High 3.5-5.3 [facility] Comment on above: Performed By: #### 5 902-2 #### ALIVIA WALLACE ([id number]) [facility] ([facility]) [address] [place] [address] 07089 Sodium [Moles/Vol] 139 mmol/L Normal 136-145 [facility] Comment on above: Performed By: #### 5 902-2 #### ALIVIA WALLACE ([id number]) [facility] ([facility]) [address] [place] [address] 81517 Urea nitrogen [Mass/Vol] 20 mg/dL Normal 6-23 [facility] Comment on above: Performed By: #### 5 902-2 #### ALIVIA WALLACE ([id number]) [facility] ([facility]) [address] [place] [address] 40804 CBC W Auto Differential pane l (Bld)on 01-06-2025 Basophils (Bld) [#/Vol] 0.02 10*3/uL [facility] Basophils/100 WBC (Bld) 0.3 % 0.0 - 2.0 % [facility] Eosinophils (Bld) [#/Vol] 0.52 10*3/uL [facility] Eosinophils/100 WBC (Bld) 7.3 % 0.0 - 6.0 % [facility] Erythrocyte distribution width (RBC) [Ratio] 18.6 % High 11.5 - 14.5 % [facility] Hematocrit (Bld) [Volume fraction] 29.4 % Low 41.0 - 52.0 % [facility] Hemoglobin (Bld) [Mass/Vol] 9.2 g/dL Low 13.5 - 17.5 g/dL [facility] Immature granulocytes (Bld) [#/Vol] 0.03 10*3/uL [facility] Immature granulocytes/100 WBC (Bld) 0.4 % 0.0 - 0.9 % [facility] Comment on above: Immature Granulocyte Count (IG) includes promyelocytes, myelocytes and metamyelocytes but does not include bands. Percent differential counts (%) should be interpreted in the context of the absolute cell counts (cells/UL). Interpretation and review of laboratory results Abnormal [facility] Lymphocytes (Bld) [#/Vol] 1.58 10*3/uL [facility] Lymphocytes/100 WBC (Bld) 22.1 % 13.0 - 44.0 % [facility] MCH (RBC) [Entitic mass] 30.7 pg 26.0 - 34.0 pg [facility] MCHC (RBC) [Mass/Vol] 31.3 g/dL Low 32.0 - 36.0 g/dL [facility] MCV (RBC) [Entitic vol] 98 fL 80 - 100 fL [facility] Monocytes (Bld) [#/Vol] 0.40 10*3/uL [facility] Monocytes/100 WBC (Bld) 5.6 % 2.0 - 10.0 % [facility] Neutrophils (Bld) [#/Vol] 4.60 10*3/uL [facility] Comment on above: Percent differential counts (%) should be interpreted in the context of the absolute cell counts (cells/uL). Neutrophils/100 WBC (Bld) 64.3 % 40.0 - 80.0 % [facility] Nucleated RBC/100 WBC (Bld) [Ratio] 0.0 % [facility] Platelets (Bld) [#/Vol] 250 10*3/uL [facility] RBC (Bld) [#/Vol] 3.00 10*6/uL Low [facility] WBC (Bld) [#/Vol] 7.2 10*3/uL [facility] Basophils (Bld) [#/Vol] 0.02 x10*3/uL Normal 0.00-0.10 [facility] Comment on above: Performed By: #### 5 902-2 #### ALIVIA WALLACE ([id number]) [facility] ([facility]) [address] [place] [address] 09699 Basophils/100 WBC (Bld) 0.3 % Normal 0.0-2.0 [facility] Comment on above: Performed By: #### 5 902-2 #### ALIVIA WALLACE ([id number]) [facility] ([facility]) [address] [place] [address] 49724 Eosinophils (Bld) [#/Vol] 0.52 x10*3/uL Normal 0.00-0.70 [facility] Comment on above: Performed By: #### 5 902-2 #### ALIVIA WALLACE ([id number]) [facility] ([facility]) [address] [place] [address] 53189 Eosinophils/100 WBC (Bld) 7.3 % Normal 0.0-6.0 [facility] Comment on above: Performed By: #### 5 902-2 #### ALIVIA WALLACE ([id number]) [facility] ([facility]) [address] [place] [address] Erythrocyte distribution width (RBC) [Ratio] 18.6 % High 11.5-14.5 [facility] Comment on above: Performed By: #### 5 902-2 #### ALIVIA WALLACE ([id number]) [facility] ([facility]) [address] [place] [address] Hematocrit (Bld) [Volume fraction] 29.4 % Low 41.0-52.0 [facility] Comment on above: Performed By: #### 5 902-2 #### ALIVIA WALLACE ([id number]) [facility] ([facility]) [address] [place] [address] Hemoglobin (Bld) [Mass/Vol] 9.2 g/dL Low 13.5-17.5 [facility] Comment on above: Performed By: #### 5 902-2 #### ALIVIA WALLACE ([id number]) [facility] ([facility]) [address] [place] [address] Immature granulocytes (Bld) [#/Vol] 0.03 x10*3/uL Normal 0.00-0.70 [facility] Comment on above: Performed By: #### 5 902-2 #### ALIVIA WALLACE ([id number]) [facility] ([facility]) [address] [place] [address] Immature granulocytes/100 WBC (Bld) 0.4 % Normal 0.0-0.9 [facility] Comment on above: Result Comment: Litzy ture Granulocyte Count (IG) includes promyelocytes, myelocytes and metamyelocytes but does not include bands. Percent differential counts (%) should be interpreted in the context of the absolute cell counts (cells/UL). Performed By: #### 5 902-2 #### ALIVIA WALLACE ([id number]) [facility] ([facility]) [address] [place] [address] 98732 Lymphocytes (Bld) [#/Vol] 1.58 x10*3/uL Normal 1.20-4.80 [facility] Comment on above: Performed By: #### 5 902-2 #### ALIVIA WALLACE ([id number]) [facility] ([facility]) [address] [place] [address] 83064 Lymphocytes/100 WBC (Bld) 22.1 % Normal 13.0-44.0 [facility] Comment on above: Performed By: #### 5 902-2 #### ALIVIA WALLACE ([id number]) [facility] ([facility] [address] [place] [address] 77912 MCH (RBC) [Entitic mass] 30.7 pg Normal 26.0-34.0 [facility] Comment on above: Performed By: #### 5 902-2 #### ALIVIA WALLACE ([id number]) [facility] ([facility]) [address] [place] [address] 89013 MCHC (RBC) [Mass/Vol] 31.3 g/dL Low 32.0-36.0 [facility] Comment on above: Performed By: #### 5 902-2 #### ALIVIA WALLACE ([id number]) [facility] ([facility]) [address] [place] [address] 79038 MCV (RBC) [Entitic vol] 98 fL Normal 80-100 [facility] Comment on above: Performed By: #### 5 902-2 #### ALIVIA WALLACE ([id number]) [facility] ([facility]) [address] [place] [address] 76013 Monocytes (Bld) [#/Vol] 0.40 x10*3/uL Normal 0.10-1.00 [facility] Comment on above: Performed By: #### 5 902-2 #### ALIVIA WALLACE ([id number]) [facility] ([facility]) [address] [place] [address] 74602 Monocytes/100 WBC (Bld) 5.6 % Normal 2.0-10.0 [facility] Comment on above: Performed By: #### 5 902-2 #### ALIVIA WALLACE ([id number]) [facility] ([facility]) [address] [place] [address] 24448 Neutrophils (Bld) [#/Vol] 4.60 x10*3/uL Normal 1.20-7.70 [facility] Comment on above: Result Comment: Perc ent differential counts (%) should be interpreted in the context of the absolute cell counts (cells/uL). Performed By: #### 5 902-2 #### ALIVIA WALLACE ([id number]) [facility] ([facility] [address] [place] [address] 80794 Neutrophils/100 WBC (Bld) 64.3 % Normal 40.0-80.0 [facility] Comment on above: Performed By: #### 5 902-2 #### ALIVIA WALLACE ([id number]) [facility] ([facility]) [address] [place] [address] 11580 Nucleated RBC/100 WBC (Bld) [Ratio] 0.0 /100 WBCs Normal 0.0-0.0 [facility] Comment on above: Performed By: #### 5 902-2 #### ALIVIA WALLACE ([id number]) [facility] ([facility]) [address] [place] [address] 72103 Platelets (Bld) [#/Vol] 250 x10*3/uL Normal 150-450 [facility] Comment on above: Performed By: #### 5 902-2 #### ALIVIA WALLACE ([id number]) [facility] ([facility]) [address] [place] [address] 75769 RBC (Bld) [#/Vol] 3.00 x10*6/uL Low 4.50-5.90 [facility] Comment on above: Performed By: #### 5 902-2 #### ALIVIA WALLACE ([id number]) [facility] ([facility]) [address] [place] [address] WBC (Bld) [#/Vol] 7.2 x10*3/uL Normal 4.4-11.3 [facility] Comment on above: Performed By: #### 5 902-2 #### SHAKIRIBELIMALISSA DERRICK KWONG ([id number]) [facility] ([facility]) [address] [place] [address] Extra Urine Arana TubeOrdered By: Michael Pizarro on 01-06-2025 Extra Tube [facility] Work Phone: [facility] Work Phone: HBV surface Ab Qn (S)on 12-18 Interpretation and review of laboratory results Abnormal [facility] HBV surface Ag IA Qlon 01-06 Interpretation and review of laboratory results Normal [facility] Hepatitis B surface antibody on 01-06-2025 HBV surface Ab Qn (S) 514.7 High [facility] Comment on above: Interpretive Criteri a: [...] surface Ag IA Ql Non-Reactive Nonreactive U [facility] Comment on above: Biotin interference may cause falsely decreased results. Patients taking a Biotin dose of up to 5 mg/day should refrain from taking Biotin for 24 hours before sample collection. Providers may contact their local laboratory for further information. Magnesiumon 01-06-2025 Magnesium [Mass/Vol] 2.26 mg/dL 1.60 - 2.40 mg/dL [facility] Magnesium [Mass/Vol] 2.26 mg/dL Normal 1.60-2.40 [facility] Comment on above: Performed By: #### 5 902-2 #### ALIVIA WALLACE ([id number]) [facility] ([facility]) [address] [place] [address] 76197 Magnesium [Mass/Vol]on 01-06 Interpretation and review of laboratory results Normal [facility] Phosphateon 01-06-2025 Phosphate [Mass/Vol] 6.2 mg/dL High 2.5-4.9 [facility] Comment on above: Performed By: #### 2 524-7 #### ALIVIA WALLACE ([id number]) [facility] ([facility] [address] [place] [address] 90827 Phosphate [Mass/Vol]on 01-06 Interpretation and review of laboratory results Abnormal [facility] Phosphoruson 01-06-2025 Phosphate [Mass/Vol] 6.2 mg/dL High 2.5 - 4 .9 mg/dL [facility] Transferrinon 01-06-2025 Transferrin [Mass/Vol] 173 mg/dL Low 200 - 360 mg/dL [facility] Transferrin [Mass/Vol] 173 mg/dL Low 200-360 [facility] Comment on above: Performed By: #### 2 524-7 #### ALIVIA WALLACE ([id number]) [facility] ([facility]) [address] [place] [address] 43954 Transferrin [Mass/Vol]on Interpretation and review of laboratory results Abnormal [facility] CBC W Auto Differential pane l (Bld)on 01-05-2025 Basophils (Bld) [#/Vol] 0.04 10*3/uL [facility] Basophils/100 WBC (Bld) 0.4 % 0.0 - 2.0 % [facility] Eosinophils (Bld) [#/Vol] 0.43 10*3/uL [facility] Eosinophils/100 WBC (Bld) 4.2 % 0.0 - 6.0 % [facility] Erythrocyte distribution width (RBC) [Ratio] 19.2 % High 11.5 - 14.5 % [facility] Hematocrit (Bld) [Volume fraction] 32.3 % Low 41.0 - 52.0 % [facility] Hemoglobin (Bld) [Mass/Vol] 10.2 g/dL Low 13.5 - 17.5 g/dL [facility] Immature granulocytes (Bld) [#/Vol] 0.04 10*3/uL [facility] Immature granulocytes/100 WBC (Bld) 0.4 % 0.0 - 0.9 % [facility] Comment on above: Immature Granulocyte Count (IG) includes promyelocytes, myelocytes and metamyelocytes but does not include bands. Percent differential counts (%) should be interpreted in the context of the absolute cell counts (cells/UL). Interpretation and review of laboratory results Abnormal [facility] Lymphocytes (Bld) [#/Vol] 1.85 10*3/uL [facility] Lymphocytes/100 WBC (Bld) 18.0 % 13.0 - 44.0 % [facility] MCH (RBC) [Entitic mass] 30.8 pg 26.0 - 34.0 pg [facility] MCHC (RBC) [Mass/Vol] 31.6 g/dL Low 32.0 - 36.0 g/dL [facility] MCV (RBC) [Entitic vol] 98 fL 80 - 100 fL [facility] Monocytes (Bld) [#/Vol] 0.44 10*3/uL [facility] Monocytes/100 WBC (Bld) 4.3 % 2.0 - 10.0 % [facility] Neutrophils (Bld) [#/Vol] 7.49 10*3/uL [facility] Comment on above: Percent differential counts (%) should be interpreted in the context of the absolute cell counts (cells/uL). Neutrophils/100 WBC (Bld) 72.7 % 40.0 - 80.0 % [facility] Nucleated RBC/100 WBC (Bld) [Ratio] 0.0 % [facility] Platelets (Bld) [#/Vol] 306 10*3/uL [facility] RBC (Bld) [#/Vol] 3.31 10*6/uL [facility] [place]BC (Bld) [#/Vol] 10.3 10*3/uL [facility] Basophils (Bld) [#/Vol] 0.04 x10*3/uL Normal 0.00-0.10 [facility] Comment on above: Performed By: #### 5 7021-8 #### ALIVIA WALLACE ([id number]) [facility] [facility] ([facility]) [address] [place] [address] 47668 Basophils/100 WBC (Bld) 0.4 % Normal 0.0-2.0 [facility] Comment on above: Performed By: #### 5 7021-8 #### ALIVIA WALLACE ([id number]) [facility] ([facility]) [address] [place] [address] 77512 Eosinophils (Bld) [#/Vol] 0.43 x10*3/uL Normal 0.00-0.70 [facility] Comment on above: Performed By: #### 5 7021-8 #### ALIVIA WALLACE ([id number]) [facility] ([facility]) [address] [place] [address] 50999 Eosinophils/100 WBC (Bld) 4.2 % Normal 0.0-6.0 [facility] Comment on above: Performed By: #### 5 7021-8 #### ALIVIA WALLACE ([id number]) [facility] ([facility]) [address] [place] [address] 34064 Erythrocyte distribution width (RBC) [Ratio] 19.2 % High 11.5-14.5 [facility] Comment on above: Performed By: #### 5 7021-8 #### ALIVIA WALLACE ([id number]) [facility] ([facility]) [address] [place] [address] 12339 Hematocrit (Bld) [Volume fraction] 32.3 % Low 41.0-52.0 [facility] Comment on above: Performed By: #### 5 7021-8 #### ALIVIA WALLACE ([id number]) [facility] ([facility]) [address] [place] [address] 42892 Hemoglobin (Bld) [Mass/Vol] 10.2 g/dL Low 13.5-17.5 [facility] Comment on above: Performed By: #### 5 7021-8 #### ALIVIA WALLACE ([id number]) [facility] ([facility]) [address] [place] [address] 38338 Immature granulocytes (Bld) [#/Vol] 0.04 x10*3/uL Normal 0.00-0.70 [facility] Comment on above: Performed By: #### 5 7021-8 #### ALIVIA WALLACE ([id number]) [facility] (EM) [address] [place] [address] 15024 Immature granulocytes/100 WBC (Bld) 0.4 % Normal 0.0-0.9 [facility] Comment on above: Result Comment: Litzy ture Granulocyte Count (IG) includes promyelocytes, myelocytes and metamyelocytes but does not include bands. Percent differential counts (%) should be interpreted in the context of the absolute cell counts (cells/UL). Performed By: #### 5 7021-8 #### ALIVIA WALLACE ([id number]) [facility] ([facility]) [address] [place] [address] 46762 Lymphocytes (Bld) [#/Vol] 1.85 x10*3/uL Normal 1.20-4.80 [facility] Comment on above: Performed By: #### 5 7021-8 #### ALIVIA WALLACE ([id number]) [facility] ([facility]) [address] [place] [address] 90793 Lymphocytes/100 WBC (Bld) 18.0 % Normal 13.0-44.0 [facility] Comment on above: Performed By: #### 5 7021-8 #### ALIVIA WALLACE ([id number]) [facility] ([facility]) [address] [place] [address] 69307 MCH (RBC) [Entitic mass] 30.8 pg Normal 26.0-34.0 [facility] Comment on above: Performed By: #### 5 7021-8 #### ALIVIA WALLACE ([id number]) [facility] ([facility]) [address] [place] [address] MCHC (RBC) [Mass/Vol] 31.6 g/dL Low 32.0-36.0 [facility] Comment on above: Performed By: #### 5 7021-8 #### ALIVIA WALLACE ([id number]) [facility] ([facility]) [address] [place] [address] MCV (RBC) [Entitic vol] 98 fL Normal 80-100 [facility] Comment on above: Performed By: #### 5 7021-8 #### ALIVIA WALLACE ([id number]) [facility] ([facility]) [address] [place] [address] Monocytes (Bld) [#/Vol] 0.44 x10*3/uL Normal 0.10-1.00 [facility] Comment on above: Performed By: #### 5 7021-8 #### ALIVIA WALLACE ([id number]) [facility] ([facility]) [address] [place] [address] Monocytes/100 WBC (Bld) 4.3 % Normal 2.0-10.0 [facility] Comment on above: Performed By: #### 5 7021-8 #### ALIVIA WALLACE ([id number]) [facility] ([facility]) [address] [place] [address] 18685 Neutrophils (Bld) [#/Vol] 7.49 x10*3/uL Normal 1.20-7.70 [facility] Comment on above: Result Comment: Perc ent differential counts (%) should be interpreted in the context of the absolute cell counts (cells/uL). Performed By: #### 5 7021-8 #### ALIVIA WALLACE ([id number]) [facility] ([facility]) [address] [place] [address] Neutrophils/100 WBC (Bld) 72.7 % Normal 40.0-80.0 [facility] Comment on above: Performed By: #### 5 7021-8 #### ALIVIA WALLACE ([id number]) [facility] ([facility]) [address] [place] [address] 34629 Nucleated RBC/100 WBC (Bld) [Ratio] 0.0 /100 WBCs Normal 0.0-0.0 [facility] Comment on above: Performed By: #### 5 7021-8 #### ALIVIA WALLACE ([id number]) [facility] (EM) [address] [place] [address] 91056 Platelets (Bld) [#/Vol] 306 x10*3/uL Normal 150-450 [facility] Comment on above: Performed By: #### 5 7021-8 #### ALIVIA WALLACE ([id number]) [facility] ([facility]) [address] [place] [address] 28689 RBC (Bld) [#/Vol] 3.31 x10*6/uL Low 4.50-5.90 [facility] Comment on above: Performed By: #### 5 7021-8 #### ALIVIA WALLACE ([id number]) [facility] ([facility]) [address] [place] [address] 27198 WBC (Bld) [#/Vol] 10.3 x10*3/uL Normal 4.4-11.3 [facility] Comment on above: Performed By: #### 5 7021-8 #### ALIVIA WALLACE ([id number]) [facility] ([facility]) [address] [place] [address] ABDOMEN PELVIS WO IV CONT RASTon 01-05-2025 CT ABDOMEN PELVIS WO IV CONTRAST STUDY: CT Abdomen and Pelvis without IV Contrast; 01/05/2025, 12:45 PM INDICATION: Upper abdominal pain. COMPARISON: CT CAP 05/09/2023, 03/18/2022, CT AP 03/04/2022. ACCESSION NUMBER(S): [id number] ORDERING CLINICIAN: MEKHI WEEMS TECHNIQUE: CT of [...] Signed by Behzad Chicas MD [facility] CT Abdomen WO contraston Small to [...] 05/09/2023, 03/18/2022, CT AP 03/04/2022. ACCESSION NUMBER(S): [id number] ORDERING CLINICIAN: MEKHI WEEMS TECHNIQUE: CT of [...] 05/09/2023, 03/18/2022, CT AP 03/04/2022. ACCESSION NUMBER(S): [id number] ORDERING CLINICIAN: MEKHI WEEMS TECHNIQUE: CT of [...] passive congestion. Signed by Behzad Chicas MD [facility] Work Phone: Radiology Study observation (narrative) [facility] Work Phone: CT Abdomen WO contrastOrdere d By: Behzad Chicas on 01-05-2025 [facility] Work Phone: Coagulation tissue factor in ducedon 01-05-2025 PT Coag (PPP) [Time] 14.2 s High 9.8-12.4 [facility] Comment on above: Performed By: #### 5 902-2 #### ALIVIA WALLACE ([id number]) [facility] ([facility]) [address] [place] [address] Comprehensive metabolic 2000 panelon 01-05-2025 Albumin BCP dye [Mass/Vol] 4.4 g/dL 3.4 - 5.0 g/dL [facility] ALP [Catalytic activity/Vol] 62 U/L 33 - 120 U/L [facility] ALT With P-5'-P [Catalytic activity/Vol] 24 U/L 10 - 52 U/L [facility] Comment on above: Patients treated wit h Sulfasalazine may generate falsely decreased results for ALT. Anion gap [Moles/Vol] 24 mmol/L High 10 - 2 0 mmol/L [facility] AST With P-5'-P [Catalytic activity/Vol] 12 U/L 9 - 39 U/L [facility] Bilirubin [Mass/Vol] 0.9 mg/dL 0.0 - 1 .2 mg/dL [facility] Calcium [Mass/Vol] 9.8 mg/dL 8.6 - 10. 3 mg/dL [facility] Chloride [Moles/Vol] 95 mmol/L Low 98 - 10 7 mmol/L [facility] CO2 [Moles/Vol] 26 mmol/L 21 - 32 mmol/L [facility] Creatinine [Mass/Vol] 12.58 mg/dL High 0.50 - 1.30 mg/dL [facility] GFR/1.73 sq M.predicted among non-blacks MDRD (S/P/Bld) [Vol rate/Area] 5 mL/min/{1.73_m2} Low - PINF [facility] Comment on above: Calculations of gentry mated GFR are performed using the 2020 CKD-EPI Study Refit equation without the race variable for the IDMS-Traceable creatinine methods. https://jasn.asnjournals.org/content//ASN.541730 6199 Glucose [Mass/Vol] 90 mg/dL 74 - 99 mg/dL [facility] Interpretation and review of laboratory results Abnormal [facility] Potassium [Moles/Vol] 7.5 mmol/L Critically high 3.5 - 5.3 mmol/L [facility] Protein [Mass/Vol] 6.7 g/dL 6.4 - 8.2 g/dL [facility] Sodium [Moles/Vol] 137 mmol/L 136 - 145 mmol/L [facility] Urea nitrogen [Mass/Vol] 47 mg/dL High 6 - 23 mg/dL [facility] Albumin BCP dye [Mass/Vol] 4.4 g/dL Normal 3.4-5.0 [facility] Comment on above: Performed By: #### 2 4323-8 #### ALIVIA WALLACE ([id number]) [facility] ([facility]) [address] [place] [address] 28160 ALP [Catalytic activity/Vol] 62 U/L Normal 33-120 [facility] Comment on above: Performed By: #### 2 4323-8 #### ALIVIA WALLACE ([id number]) [facility] ([facility]) [address] [place] [address] 15267 ALT With P-5'-P [Catalytic activity/Vol] 24 U/L Normal 10-52 [facility] Comment on above: Result Comment: Lalita ents treated with Sulfasalazine may generate falsely decreased results for ALT. Performed By: #### 2 4323-8 #### ALIVIA WALLACE ([id number]) [facility] ([facility]) [address] [place] [address] 46309 Anion gap [Moles/Vol] 24 mmol/L High 10-20 [facility] Comment on above: Performed By: #### 2 4323-8 #### ALIVIA WALLACE ([id number]) [facility] ([facility]) [address] [place] [address] AST With P-5'-P [Catalytic activity/Vol] 12 U/L Normal 9-39 [facility] Comment on above: Performed By: #### 2 4323-8 #### ALIVIA WALLACE ([id number]) [facility] ([facility]) [address] [place] [address] 89923 Bilirubin [Mass/Vol] 0.9 mg/dL Normal 0.0-1.2 [facility] Comment on above: Performed By: #### 2 4323-8 #### ALIVIA WALLACE ([id number]) [facility] ([facility]) [address] [place] [address] 99753 Calcium [Mass/Vol] 9.8 mg/dL Normal 8.6-10.3 [facility] Comment on above: Performed By: #### 2 4323-8 #### SHAKIRIBELIMALISSA MEZALISSETH DORETHA ([id number]) [facility] ([facility]) [address] [place] [address] 43365 Chloride [Moles/Vol] 95 mmol/L Low 98-107 [facility] Comment on above: Performed By: #### 2 4323-8 #### ALIVIA WALLACE ([id number]) [facility] ([facility]) [address] [place] [address] 91657 CO2 [Moles/Vol] 26 mmol/L Normal 21-32 [facility] Comment on above: Performed By: #### 2 4323-8 #### SHAKIRIBDEBBY WALLACE ([id number]) [facility] ([facility]) [address] [place] [address] 59350 Creatinine [Mass/Vol] 12.58 mg/dL High 0.50-1.30 [facility] Comment on above: Performed By: #### 2 4323-8 #### SHAKIRIBDEBBY MEZA RIO DORETHA ([id number]) [facility] ([facility]) [address] [place] [address] 91276 Glomerular filtration rate 5 mL/min/1.73m*2 Low >60 [facility] Comment on above: Result Comment: Calc ulations of estimated GFR are performed using the 2020 CKD-EPI Study Refit equation without the race variable for the IDMS-Traceable creatinine methods. https://jasn.asnjournals.org/content//ASN.537612 7387 Performed By: #### 2 4323-8 #### ALIVIA WALLACE ([id number]) [facility] ([facility]) [address] [place] [address] Glucose [Mass/Vol] 90 mg/dL Normal 74-99 [facility] Comment on above: Performed By: #### 2 4323-8 #### SHAKIRIBDEBBY WALLACE ([id number]) [facility] ([facility]) [address] [place] [address] 17953 Potassium [Moles/Vol] 7.5 mmol/L Critically high 3.5-5.3 [facility] Comment on above: Performed By: #### 2 4323-8 #### SHAKIRIBDEBBY WALLACE ([id number]) [facility] ([facility]) [address] [place] [address] 43051 Protein [Mass/Vol] 6.7 g/dL Normal 6.4-8.2 [facility] Comment on above: Performed By: #### 2 4323-8 #### SHAKIRIBDEBBY WALLACE ([id number]) [facility] ([facility]) [address] [place] [address] 88739 Sodium [Moles/Vol] 137 mmol/L Normal 136-145 [facility] Comment on above: Performed By: #### 2 4323-8 #### SHAKIRIBDEBBY WALLACE ([id number]) [facility] ([facility]) [address] [place] [address] 19277 Urea nitrogen [Mass/Vol] 47 mg/dL High 6-23 [facility] Comment on above: Performed By: #### 2 4323-8 #### SHAKIRIBDEBBY MEZA RIO DORETHA ([id number]) [facility] ([facility]) [address] [place] [address] 29504 Critical Careon 01-05-2025 Juju Ramesh 01/05/2025 11:29 [...] pulse oximetry Care discussed with: admitting provider [facility] Work Phone: [facility] Work Phone: ECG 12-LEADon 01-05-2025 ECG 12-LEAD Ventricular Rate 107 Atrial Rate 107 P-R Interval 164 QRS Duration 102 Q-T Interval 370 QTC Calculation(Bazett) 493 P [place] 61 R [place] 108 T [place] 59 QRS Count 17 Q Onset 214 P Onset 132 P Offset 192 T Offset 399 QTC Fredericia 448 Diagnosis Sinus tachycardia Possible Left atrial enlargement Rightward axis Borderline ECG When compared with ECG of 09-MAY-2023 17:04, QRS axis Shifted right See ED provider note for full interpretation and clinical correlation Confirmed by Vira West ([id number]) on 01/07/2025 3:20:36 PM Normal [facility] Ferritinon 01-05-2025 Ferritin [Mass/Vol] 4079 ng/mL High 20 - 300 ng/mL [facility] Ferritin [Mass/Vol] 4079 ng/mL High 20-300 [facility] Comment on above: Performed By: #### 5 902-2 #### ALIVIA WALLACE ([id number]) [facility] ([facility]) [address] [place] [address] 12508 Ferritin [Mass/Vol]on 2024 Interpretation and review of laboratory results Abnormal [facility] Glucose Test strip manual (B ld) [Mass/Vol]on 01-05-2025 Glucose [Mass/Vol] 75 mg/dL 74 - 99 mg/dL [facility] Interpretation and review of laboratory results Normal [facility] Glucose [Mass/Vol] 75 mg/dL Normal 74-99 [facility] Comment on above: Performed By: #### 2 341-6 #### ALIVIA WALLACE ([id number]) [facility] ([facility]) [address] [place] [address] Hepatitis B virus surface Ab on 01-05-2025 HBV surface Ab Qn (S) 514.7 mIU/mL High <10.0 U [facility] Comment on above: Result Comment: Inte rpretive [...] By: #### 5 902-2 #### ALIVIA WALLACE ([id number]) [facility] ([facility]) [address] [place] [address] Hepatitis B virus surface Ag on 01-05-2025 HBV surface Ag IA Ql Non-Reactive Normal Nonreactive [facility] Comment on above: Result Comment: Biot in interference may cause falsely decreased results. Patients taking a Biotin dose of up to 5 mg/day should refrain from taking Biotin for 24 hours before sample collection. Providers may contact their local laboratory for further information. Performed By: #### 5 902-2 #### ALIVIA WALLACE ([id number]) [facility] ([facility]) [address] [place] [address] Influenza virus A and B and SARS-CoV-2 (COVID-19) identified MIGUEL+probe Nom (Resp)on 01-05-2025 FLUAV RNA MIGUEL+probe Ql (Resp) Not detected Not Detected [facility] FLUBV RNA MIGUEL+probe Ql (Resp) Not detected Not Detected [facility] Interpretation and review of laboratory results Normal [facility] SARS-CoV-2 (COVID-19) RNA MIGUEL+probe Ql (Resp) Not detected Not Detected [facility] This assay is an FDA-cleared, in vitro diagnostic nucleic acid amplification test for the qualitative detection and differentiation of SARS CoV-2/ Influenza A/B from nasopharyngeal specimens collected from individuals with signs and symptoms of respiratory tract infections, and has been validated for use at [facility]. Negative results do not preclude COVID-19/ Influenza A/B infections and should not be used as the sole basis for diagnosis, treatment, or other management decisions. Testing for SARS CoV-2 is recommended only for patients who meet current clinical and/or epidemiological criteria defined by federal, state, or local public health directives. [facility] FLUAV RNA MIGUEL+probe Ql (Resp) Not detected Normal Not Detected [facility] Comment on above: Order Comment: This assay is an FDA-cleared, in vitro diagnostic nucleic acid amplification test for the qualitative detection and differentiation of SARS CoV-2/ Influenza A/B from nasopharyngeal specimens collected from individuals with signs and symptoms of respiratory tract infections, and has been validated for use at [facility]. Negative results do not preclude COVID-19/ Influenza A/B infections and should not be used as the sole basis for diagnosis, treatment, or other management decisions. Testing for SARS CoV-2 is recommended only for patients who meet current clinical and/or epidemiological criteria defined by federal, state, or local public health directives. Performed By: #### 9 5423-0 #### ALIVIA WALLACE ([id number]) [facility] ([facility] [address] [place] [address] FLUBV RNA MIGUEL+probe Ql (Resp) Not detected Normal Not Detected [facility] Comment on above: Order Comment: This assay is an FDA-cleared, in vitro diagnostic nucleic acid amplification test for the qualitative detection and differentiation of SARS CoV-2/ Influenza A/B from nasopharyngeal specimens collected from individuals with signs and symptoms of respiratory tract infections, and has been validated for use at [facility]. Negative results do not preclude COVID-19/ Influenza A/B infections and should not be used as the sole basis for diagnosis, treatment, or other management decisions. Testing for SARS CoV-2 is recommended only for patients who meet current clinical and/or epidemiological criteria defined by federal, state, or local public health directives. Performed By: #### 9 5423-0 #### ALIVIA WALLACE ([id number]) [facility] ([facility]) [address] [place] [address] SARS-CoV-2 (COVID-19) RNA MIGUEL+probe Ql (Resp) Not detected Normal Not Detected [facility] Comment on above: Order Comment: This assay is an FDA-cleared, in vitro diagnostic nucleic acid amplification test for the qualitative detection and differentiation of SARS CoV-2/ Influenza A/B from nasopharyngeal specimens collected from individuals with signs and symptoms of respiratory tract infections, and has been validated for use at [facility]. Negative results do not preclude COVID-19/ Influenza A/B infections and should not be used as the sole basis for diagnosis, treatment, or other management decisions. Testing for SARS CoV-2 is recommended only for patients who meet current clinical and/or epidemiological criteria defined by federal, state, or local public health directives. Performed By: #### 9 5423-0 #### ALIVIA WALLACE ([id number]) [facility] ([facility]) [address] [place] [address] 32077 Iron and Iron binding capaci ty panelon 01-05-2025 Interpretation and review of laboratory results Abnormal [facility] Iron [Mass/Vol] 39 ug/dL 35 - 150 ug/dL [facility] Iron binding capacity [Mass/Vol] 234 ug/dL Low 240 - 445 ug/dL [facility] Iron binding capacity.unsaturated [Mass/Vol] 195 ug/dL 110 - 370 ug/dL [facility] Iron saturation [Mass fraction] 17 % Low 25 - 45 % [facility] Iron [Mass/Vol] 39 ug/dL Normal 35-150 [facility] Comment on above: Performed By: #### 5 902-2 #### ALIVIA WALLACE ([id number]) [facility] ([facility]) [address] [place] [address] 50139 Iron binding capacity [Mass/Vol] 234 ug/dL Low 240-445 [facility] Comment on above: Performed By: #### 5 902-2 #### ALIVIA WALLACE ([id number]) [facility] ([facility]) [address] [place] [address] Iron binding capacity.unsaturated [Mass/Vol] 195 ug/dL Normal 110-370 [facility] Comment on above: Performed By: #### 5 902-2 #### ALIVIA WALLACE ([id number]) [facility] ([facility]) [address] [place] [address] 52141 Iron saturation [Mass fraction] 17 % Low 25-45 [facility] Comment on above: Performed By: #### 5 902-2 #### ALIVIA WALLACE ([id number]) [facility] ([facility]) [address] [place] [address] 70512 LDH Lactate to pyruvate reac tion [Catalytic activity/Vol]on 01-05-2025 Interpretation and review of laboratory results Normal [facility] Lactateon 01-05-2025 Lactate [Moles/Vol] 1.4 mmol/L 0.4 - 2. 0 mmol/L [facility] Lactate [Moles/Vol] 1.4 mmol/L Normal 0.4-2.0 [facility] Comment on above: Order Comment: Venip uncture immediately after or during the administration of Metamizole may lead to falsely low results. Testing should be performed immediately prior to Metamizole dosing. Performed By: #### 2 524-7 #### ALIVIA WALLACE ([id number]) [facility] ([facility]) [address] [place] [address] 85334 Lactate Dehydrogenaseon 12-18 LDH Lactate to pyruvate reaction [Catalytic activity/Vol] 207 U/L 84 - 246 U/L [facility] Lactate [Moles/Vol]on 2024 Interpretation and review of laboratory results Normal [facility] Venipuncture immediately after or during the administration of Metamizole may lead to falsely low results. Testing should be performed immediately prior to Metamizole dosing. [facility] Lactate dehydrogenaseon 12-18 LDH Lactate to pyruvate reaction [Catalytic activity/Vol] 207 U/L Normal 84-246 [facility] Comment on above: Performed By: #### 5 902-2 #### ALIVIA WALLACE ([id number]) [facility] ([facility]) [address] [place] [address] 17378 Lipaseon 01-05-2025 Lipase [Catalytic activity/Vol] 21 U/L 9 - 82 U/L [facility] Lipase [Catalytic activity/V ol]on 01-05-2025 Interpretation and review of laboratory results Normal [facility] Venipuncture immediately after or during the administration of Metamizole may lead to falsely low results. Testing should be performed immediately prior to Metamizole dosing. [facility] PT Coag (PPP) [Time]on 01-05 INR Coag (PPP) [Relative time] 1.3 {INR} High 0.9 - 1.1 [facility] Interpretation and review of laboratory results Abnormal [facility] INR Coag (PPP) [Relative time] 1.3 High 0.9-1.1 [facility] Comment on above: Performed By: #### 5 902-2 #### ALIVIA WALLACE ([id number]) [facility] ([facility]) [address] [place] [address] 24282 Potassiumon 01-05-2025 Potassium [Moles/Vol] 5.7 mmol/L High 3.5 - 5.3 mmol/L [facility] Potassium [Moles/Vol] 5.7 mmol/L High 3.5-5.3 [facility] Comment on above: Performed By: #### 2 823-3 #### ALIVIA WALLACE ([id number]) [facility] ([facility]) [address] [place] [address] 88756 Potassium [Moles/Vol]on 12-18 Interpretation and review of laboratory results Abnormal [facility] Protime-INRon 01-05-2025 PT Coag (PPP) [Time] 14.2 s High [facility] Reticulocytes panel (Bld)on 01-05-2025 Hemoglobin (Reticulocytes) [Entitic mass] 31 pg 28 - 38 pg [facility] Immature Retic fraction 20.1 % High NINF - 16.0 % [facility] Comment on above: Reticulocytes are me [...] Interpretation and review of laboratory results Abnormal [facility] Reticulocytes (Bld) [#/Vol] 0.123 10*3/uL High [facility] Reticulocytes/100 RBC (Bld) 3.7 % High 0.5 - 2.0 % [facility] Hemoglobin (Reticulocytes) [Entitic mass] 31 pg Normal 28-38 [facility] Comment on above: Performed By: #### 5 0262-5 #### ALIVIA WALLACE ([id number]) [facility] ([facility] [address] [place] [address] 00641 IMMATURE RETIC FRACTION 20.1 % High <=16.0 [facility] Comment on above: Result Comment: Reti [...] By: #### 5 0262-5 #### ALIVIA WALLACE ([id number]) [facility] ([facility]) [address] [place], [place] [address] Reticulocytes (Bld) [#/Vol] 0.123 x10*6/uL High 0.022-0.118 [facility] Comment on above: Performed By: #### 5 0262-5 #### ALIVIA WALLACE ([id number]) [facility] ([facility]) [address] [place] [address] 01449 Reticulocytes/100 RBC (Bld) 3.7 % High 0.5-2.0 [facility] Comment on above: Performed By: #### 5 0262-5 #### ALIVIA WALLACE ([id number]) [facility] ([facility]) [address] [place] [address] 43026 Triacylglycerol lipaseon Lipase [Catalytic activity/Vol] 21 U/L Normal 9-82 [facility] Comment on above: Order Comment: Venip uncture immediately after or during the administration of Metamizole may lead to falsely low results. Testing should be performed immediately prior to Metamizole dosing. Performed By: #### 3 040-3 #### ALIVIA WALLACE ([id number]) [facility] ([facility]) [address] [place] [address] 59462 Urinalysis complete W Reflex Culture panel (U)on 01-05-2025 Appearance (U) Clear Clear [facility] Bilirubin (U) [Mass/Vol] Negative NEGATIVE mg/dL [facility] Color (U) Light-Yellow Light-Yellow , Yellow, Dark-Yellow [facility] Glucose Auto test strip (U) [Mass/Vol] 100 (1+) Abnormal Normal mg/dL [facility] Interpretation and review of laboratory results Abnormal [facility] Ketones (U) [Mass/Vol] Negative NEGATIVE mg/dL [facility] Leukocyte esterase Auto test strip Ql (U) Negative NEGATIVE [facility] Nitrite Auto test strip Ql (U) Negative NEGATIVE [facility] pH (U) 8.0 [pH] 5.0, 5.5, 6.0, 6.5, 7.0, 7.5, 8.0 [facility] Protein (U) [Mass/Vol] 300 (3+) Abnormal NEGATIVE, 10 (TRACE), 20 (TRACE) mg/dL [facility] RBC (U) [#/Vol] 0.06 (1+) Abnormal NEGATIVE mg/dL [facility] RBC Auto (Urine sed) [#/Area] 11-20 Abnormal NONE, 1-2, 3-5 /HPF [facility] Specific gravity (U) [Rel density] 1.010 1.005 - 1.035 [facility] Urobilinogen (U) [Mass/Vol] Normal Normal mg/dL [facility] WBC Auto (Urine sed) [#/Area] 1-5 1-5, NONE /HPF [facility] Appearance (U) Clear Normal Clear [facility] Comment on above: Performed By: #### 5 902-2 #### ALIVIA WALLACE ([id number]) [facility] ([facility]) [address] [place] [address] 76280 Bilirubin (U) [Mass/Vol] Negative Normal NEGATIVE [facility] Comment on above: Performed By: #### 5 902-2 #### ALIVIA WALLACE ([id number]) [facility] ([facility]) [address] [place] [address] 45[address] Color (U) Light-Yellow Normal Light-Yellow , Yellow, Dark-Yellow [facility] Comment on above: Performed By: #### 5 902-2 #### ALIVIA WALLACE ([id number]) [facility] ([facility]) [address] [place] [address] 27497 Glucose Auto test strip (U) [Mass/Vol] 100 (1+) Abnormal Normal [facility] Comment on above: Performed By: #### 5 902-2 #### ALIVIA WALLACE ([id number]) [facility] ([facility]) [address] [place] [address] 91167 Ketones (U) [Mass/Vol] Negative Normal NEGATIVE [facility] Comment on above: Performed By: #### 5 902-2 #### ALIVIA WALLACE ([id number]) [facility] ([facility]) [address] [place] [address] 98546 Leukocyte esterase Auto test strip Ql (U) Negative Normal NEGATIVE [facility] Comment on above: Performed By: #### 5 902-2 #### ALIVIA WALLACE ([id number]) [facility] ([facility]) [address] [place] [address] 09072 Nitrite Auto test strip Ql (U) Negative Normal NEGATIVE [facility] Comment on above: Performed By: #### 5 902-2 #### ALIVIA WALLACE ([id number]) [facility] ([facility]) [address] [place] [address] 25321 pH (U) 8.0 [pH] Normal 5.0, 5.5, 6.0, 6.5, 7.0, 7.5, 8.0 [facility] Comment on above: Performed By: #### 5 902-2 #### ALIVIA WALLACE ([id number]) [facility] ([facility]) [address] [place] [address] 53678 Protein (U) [Mass/Vol] 300 (3+) Abnormal NEGATIVE, 10 (TRACE), 20 (TRACE) [facility] Comment on above: Performed By: #### 5 902-2 #### ALIVIA WALLACE ([id number]) [facility] ([facility]) [address] [place] [address] 21211 RBC (U) [#/Vol] 0.06 (1+) Abnormal NEGATIVE [facility] Comment on above: Performed By: #### 5 902-2 #### ALIVIA WALLACE ([id number]) [facility] ([facility]) [address] [place] [address] 35406 RBC Auto (Urine sed) [#/Area] 11-20 Abnormal NONE, 1-2, 3-5 [facility] Comment on above: Performed By: #### 5 902-2 #### ALIVIA WALLACE ([id number]) [facility] ([facility]) [address] [place] [address] 37314 Specific gravity (U) [Rel density] 1.010 Normal 1.005-1.035 [facility] Comment on above: Performed By: #### 5 902-2 #### ALIVIA WALLACE ([id number]) [facility] ([facility]) [address] [place] [address] 79820 Urobilinogen (U) [Mass/Vol] Normal Normal Normal [facility] Comment on above: Performed By: #### 5 902-2 #### ALIVIA WALLACE ([id number]) [facility] ([facility]) [address] [place] [address] WBC Auto (Urine sed) [#/Area] 1-5 Normal 1-5, NONE [facility] Comment on above: Performed By: #### 5 902-2 #### ALIVIA WALLACE ([id number]) [facility] ([facility]) [address] [place] [address] 80813 Absolute lymphocyte countOrd ered By: Bing Birmingham on 10-14-2024 Lymphocytes Auto (Unsp spec) [#/Vol] 1.92 10*3/uL 0.83-4.51 [facility] Absolute neutrophil countOrd ered By: Bing Birmingham on 10-14-2024 Neutrophils (Bld) [#/Vol] 5.5 10*3/uL 2.0-7.7 [facility] Anion gap in Serum or Plasma Ordered By: Bing Birmingham on 10-14-2024 Anion gap [Moles/Vol] 16 mmol/L High 5-15 [facility] Automated lymphocyte count a s percentage of total leukocytesOrdered By: Bing Birmingham on 10-14-2024 Lymphocytes/100 WBC Auto (Unsp spec) 22.1 % 19-41 [facility] BUN/creatinine ratioOrdered By: Bing Birmingham on 10-14-2024 Urea nitrogen/Creatinine [Mass ratio] 3.7 mg/mg Low 10-20 [facility] Basophil percentageOrdered B y: Bing Birmingham on 10-14-2024 Basophils/100 WBC (Bld) 0.3 % 0-1 [facility] Bilirubin, totalOrdered By: Bing Birmingham on 10-14-2024 Bilirubin [Mass/Vol] 0.41 mg/dL 0.00-1.30 [facility] CBC W/Diff, Automatedon 09-17 Absolute Lymph 1.92 X10 3/uL Normal 0.83-4.51 [facility] Comment on above: Performed By: #### L 500.4050, L501.2300, L100.0100, L501.5200 #### [facility] [address] [place], [address] Absolute Neut 5.5 X10 3/uL Normal 2.0-7.7 [facility] Comment on above: Performed By: #### L 500.4050, L501.2300, L100.0100, L501.5200 #### [facility] [address] [place], [address] Basophils/100 WBC (Bld) 0.3 % Normal 0-1 [facility] Comment on above: Performed By: #### L 500.4050, L501.2300, L100.0100, L501.5200 #### [facility] [address] [place], [address] Eosinophils/100 WBC (Bld) 7.9 % High 0-5 [facility] Comment on above: Performed By: #### L 500.4050, L501.2300, L100.0100, L501.5200 #### [facility] [address] [place], [address] Erythrocyte distribution width (RBC) [Ratio] 16.0 % High 11.6-14.6 [facility] Comment on above: Performed By: #### L 500.4050, L501.2300, L100.0100, L501.5200 #### [facility] [address] [place], [address] Hematocrit (Bld) [Volume fraction] 27.5 % Low 40-54 [facility] Comment on above: Performed By: #### L 500.4050, L501.2300, L100.0100, L501.5200 #### [facility] [address] [place], [address] Hemoglobin (Bld) [Mass/Vol] 8.9 g/dL Low 13.0-16.5 [facility] Comment on above: Performed By: #### L 500.4050, L501.2300, L100.0100, L501.5200 #### [facility] [address] [place], [address] IG% 0.200 Normal 0.0-0.9 [facility] Comment on above: Result Comment: IG% - Immature Granulocytes (promyelocytes, myelocytes and metamyelocytes) > 1% indicates that a LEFT SHIFT is Present. Performed By: #### L 500.4050, L501.2300, L100.0100, L501.5200 #### [facility] [address] [place], [address] Lymphocytes/100 WBC (Bld) 22.1 % Normal 19-41 [facility] Comment on above: Performed By: #### L 500.4050, L501.2300, L100.0100, L501.5200 #### [facility] [address] [place], [address] MCH (RBC) [Entitic mass] 31.8 pg Normal 27.0-32.0 [facility] Comment on above: Performed By: #### L 500.4050, L501.2300, L100.0100, L501.5200 #### [facility] [address] [place], [address] MCHC (RBC) [Mass/Vol] 32.4 g/dL Normal 32-36 [facility] Comment on above: Performed By: #### L 500.4050, L501.2300, L100.0100, L501.5200 #### [facility] [address] [place], [address] MCV (RBC) [Entitic vol] 98.2 fL High 80-94 [facility] Comment on above: Performed By: #### L 500.4050, L501.2300, L100.0100, L501.5200 #### [facility] [address] [place], [address] Monocytes/100 WBC (Bld) 6.1 % Normal 0-10 [facility] Comment on above: Performed By: #### L 500.4050, L501.2300, L100.0100, L501.5200 #### [facility] [address] [place], [address] Neutrophils/100 WBC (Bld) 63.4 % Normal 47-70 [facility] Comment on above: Performed By: #### L 500.4050, L501.2300, L100.0100, L501.5200 #### [facility] [address] [place], [address] Nucleated RBC (Bld) [#/Vol] 0 10*3/uL Normal 0-5 [facility] Comment on above: Performed By: #### L 500.4050, L501.2300, L100.0100, L501.5200 #### [facility] [address] [place], [address] Platelet mean volume (Bld) [Entitic vol] 9.4 fL Normal 6.2-12.0 [facility] Comment on above: Performed By: #### L 500.4050, L501.2300, L100.0100, L501.5200 #### [facility] [address] [place], [address] Platelets (Bld) [#/Vol] 231 10*3/uL Normal 150-450 [facility] Comment on above: Performed By: #### L 500.4050, L501.2300, L100.0100, L501.5200 #### [facility] [address] [place], [address] RBC (Bld) [#/Vol] 2.80 10*6/uL Low 4.6-6.2 [facility] Comment on above: Performed By: #### L 500.4050, L501.2300, L100.0100, L501.5200 #### [facility] [address] [place], [address] RDW SD 56.3 fl High 35.1-43.9 [facility] Comment on above: Performed By: #### L 500.4050, L501.2300, L100.0100, L501.5200 #### [facility] [address] [place], [address] WBC (Bld) [#/Vol] 8.7 10*3/uL Normal 4.4-11.0 [facility] Comment on above: Performed By: #### L 500.4050, L501.2300, L100.0100, L501.5200 #### [facility] [address] [place], [address] Carbon dioxide, total [Moles /volume] in Central venous bloodOrdered By: Bing Birmingham on 10-14-2024 CO2 [Moles/Vol] 22.2 mmol/L 21.0-32.0 [facility] Chloride assayOrdered By: Jose M Birmingham on 10-14-2024 Chloride [Moles/Vol] 100 mmol/L 98-108 [facility] Comprehensive Metabolic Prof ilon 10-14-2024 Albumin [Mass/Vol] 3.7 g/dL Normal 3.5-5.0 [facility] Comment on above: Performed By: #### L 500.4050, L501.2300, L100.0100, L501.5200 #### [facility] [address] [place], [address] Albumin/Globulin [Mass ratio] 1.9 {ratio} Normal 0.9-2.4 [facility] Comment on above: Performed By: #### L 500.4050, L501.2300, L100.0100, L501.5200 #### [facility] [address] [place], [address] ALK PHOS 70 U/L Normal 40-129 [facility] Comment on above: Performed By: #### L 500.4050, L501.2300, L100.0100, L501.5200 #### [facility] [address] [place], [address] ALT [Catalytic activity/Vol] 10 U/L Normal <=46 [facility] Comment on above: Performed By: #### L 500.4050, L501.2300, L100.0100, L501.5200 #### [facility] [address] [place], [address] AST [Catalytic activity/Vol] 8 U/L Normal <=37 [facility] Comment on above: Performed By: #### L 500.4050, L501.2300, L100.0100, L501.5200 #### [facility] [address] [place], [address] Bilirubin [Mass/Vol] 0.41 mg/dL Normal 0.00-1.30 [facility] Comment on above: Performed By: #### L 500.4050, L501.2300, L100.0100, L501.5200 #### [facility] [address] [place], [address] BUN/CRE 3.7 RATIO Low 10-20 [facility] Comment on above: Performed By: #### L 500.4050, L501.2300, L100.0100, L501.5200 #### [facility] [address] [place], [address] Calcium [Mass/Vol] 9.1 mg/dL Normal 7.6-11.0 [facility] Comment on above: Performed By: #### L 500.4050, L501.2300, L100.0100, L501.5200 #### [facility] [address] [place], [address] Chloride [Moles/Vol] 100 mmol/L Normal 98-108 [facility] Comment on above: Performed By: #### L 500.4050, L501.2300, L100.0100, L501.5200 #### [facility] [address] [place], [address] CO2 [Moles/Vol] 22.2 mmol/L Normal 21.0-32.0 [facility] Comment on above: Performed By: #### L 500.4050, L501.2300, L100.0100, L501.5200 #### [facility] [address] [place], [address] Creatinine [Mass/Vol] 10.10 mg/dL Invalid Interpretation Code 0.70-1.20 [facility] Comment on above: Result Comment: Crit ical Result(s) Called at:0632 by: LAKIA PISANO TO JOHNNA FERNANDEZ??Results read back by same. Performed By: #### L 500.4050, L501.2300, L100.0100, L501.5200 #### [facility] [address] [place], [address] ECRCL 11.54 ml/min Low 50-250 [facility] Comment on above: Performed By: #### L 500.4050, L501.2300, L100.0100, L501.5200 #### [facility] [address] [place], [address] GAP 16 High 5-15 [facility] Comment on above: Performed By: #### L 500.4050, L501.2300, L100.0100, L501.5200 #### [facility] [address] [place], [address] GFR/1.73 sq M.predicted among non-blacks MDRD (S/P/Bld) [Vol rate/Area] 7 mL/min/{1.73_m2} Low >60 [facility] Comment on above: Result Comment: mL/m in/1.73m2 CKD-EPI Creatinine Equation (2020) Performed By: #### L 500.4050, L501.2300, L100.0100, L501.5200 #### [facility] [address] [place], [address] Globulin (S) [Mass/Vol] 2.0 g/dL Low 2.2-4.2 [facility] Comment on above: Performed By: #### L 500.4050, L501.2300, L100.0100, L501.5200 #### [facility] [address] [place], [address] Glucose [Mass/Vol] 93 mg/dL Normal 70-99 [facility] Comment on above: Performed By: #### L 500.4050, L501.2300, L100.0100, L501.5200 #### [facility] [address] [place], [address] Potassium [Moles/Vol] 5.8 mmol/L High 3.3-5.1 [facility] Comment on above: Performed By: #### L 500.4050, L501.2300, L100.0100, L501.5200 #### [facility] [address] [place], [address] Sodium [Moles/Vol] 138 mmol/L Normal 133-145 [facility] Comment on above: Performed By: #### L 500.4050, L501.2300, L100.0100, L501.5200 #### [facility] [address] [place], [address] T PROT 5.7 g/dL Low 5.9-8.4 [facility] Comment on above: Performed By: #### L 500.4050, L501.2300, L100.0100, L501.5200 #### [facility] [address] [place], [address] Urea nitrogen [Mass/Vol] 38 mg/dL High 4-19 [facility] Comment on above: Performed By: #### L 500.4050, L501.2300, L100.0100, L501.5200 #### [facility] [address] [place], [address] Consultation - Nephrologyon 10-14-2024 Consultation - Nephrology [facility] Medical Records Department [address] [place] [address] Consultation - Nephrology 10/14/24 1019 MR#: [id number] Acct: [id number] Name: LAWSON DOYLE Rep #: [id number] : 2000 From: Segundo WHITAKER PCP: Care Physician,No Primary Status:DIS KEYANNA Location: [place] [address] Assessment Plan Assessment/Plan (1) ESRD (end stage renal disease): (2) Hyperkalemia: (3) Hypoxia: PLAN: Plan This is a 24-year-old male with past medical history significant for ESRD on hemodialysis Sunday schedule, admitted to the hospital for shortness of breath, hypoxia. Patient did undergo hemodialysis yesterday and tolerated around 4.7 L fluid removal. There is no acute indication for [employer] [employer] today. Potassium mildly elevated, patient is on [...] for ESRD who is on hemodialysis at [facility] Sunday, presented to the emergency room yesterday [...] on room air. He denies any complaints. [facility] Medical History (Updated 10/14/24 @ 10:22 by [...] 1 - 2 puff inhalation Q4H PRN NH N 10/03/24 Unknown Rx aerosol inhaler (Ventolin [...] % (Auto) 63.4, Lymph % (Auto) 22.1, Wirt % (Auto) 6.1, Eos % (Auto) 7.9 [...] Potassium 5.6 (more content not included)... Normal [facility] Echocardiogram study reportO rdered By: Juan Stacy on 10-14-2024 Study report [facility] [address] [place] [address] Echo Complete 10/14/24 0846 MR#: [id number] Acct: [id number] Name: LAWSON DOYLE Rep #:[id number] : 2000 From: Juan Abreu Attending Dr: Dr. Bing Birmingham DO S tatus: ADM KEYANNA Ordering Dr: Bing Birmingham DO Date: Location: [facility] Sex: M C Admitted: 10/13/24 Reason For [...] By: Marcos Sarmiento RCS 10/14/24 1120 Date _ Juan Stacy MD CC: Dr. Bing Birmingham DO; No Primary Care Physician ~ Date Dictated: 10/14/24 0846 Date Transcribed: 10/14/24 112 Fur Blower: Signed [facility] Work Phone: Electrocardiogram reportOrde red By: Juan Stacy on 10-14-2024 EKG study [facility] Cardiovascular Services [address] [place] [address] 12 Lead EKG 10/13/24 0907 MR#: [id number] Acct: [id number] Name: LAWSON DOYLE Rep #:[id number] : 2000 From: Juan Stacy MD Attending Dr: Dr. Bing Birmingham DO S tatus: ADM KEYANNA Ordering Dr: Arley Kirby DO Date: 0 10/13/24 Location: [facility] Sex: M C Admitted: 10/13/24 Test Reason : SOB Blood Pressure : */* mmHG Vent. Rate : 99 BPM Atrial Rate : 99 BPM P-R Int : 142 ms QRS Dur : 82 ms QT Int : 360 ms P-R-T Axes : 55 67 96 degrees QTcB Int : 462 ms Normal sinus rhythm Normal ECG Confirmed by ROD PEREIRA, JUAN ([id number]), technical writer and editor TERRA HOOKS ([id number]) on 51:00:49 PM Referred By: Confirmed By: JUAN STACY MD 10/14/24 1300 Date _ Juan Stacy MD CC: Dr. Arley Kirby, DO; Dr. Bing Birmingham, DO; No Primary Care Physician ~ Signed [facility] Work Phone: Eosinophil percentageOrdered By: Bing Birmingham on 10-14-2024 Eosinophils/100 WBC (Bld) 7.9 % High 0-5 [facility] Erythrocyte distribution wid th ratioOrdered By: Bing Birmingham on 10-14-2024 Erythrocyte distribution width (RBC) [Ratio] 16.0 % High 11.6-14.6 [facility] Erythrocyte distribution wid th standard deviationOrdered By: Bing Birmingham on 10-14-2024 Erythrocyte distribution width (RBC) [Ratio] 56.3 fl High 35.1-43.9 [facility] Glomerular filtration rate ( GFR) estimation/1.73 sq m using serum, plasma, or whole bOrdered By: Bing Birmingham on 10-14-2024 GFR/1.73 sq M.predicted among non-blacks MDRD (S/P/Bld) [Vol rate/Area] 7 mL/min/{1.73_m2} Low >60 [facility] Comment on above: mL/min/1.73m2 CKD-EP I Creatinine Equation (2020) Hematocrit Auto (Bld) [Volum e fraction]Ordered By: Bing Birmingham on 10-14-2024 Hematocrit (Bld) [Volume fraction] 27.5 % Low 40-54 [facility] Hemoglobin measurementOrdere d By: Bing Birmingham on 10-14-2024 Hemoglobin (Bld) [Mass/Vol] 8.9 g/dL Low 13.0-16.5 [facility] Immature granulocytes/100 WB C Auto (Bld)Ordered By: Bing Birmingham on 10-14-2024 Immature granulocytes/100 WBC (Bld) 0.200 % 0.0-0.9 [facility] Comment on above: IG% - Immature Granu locytes (promyelocytes, myelocytes and metamyelocytes) > 1% indicates that a LEFT SHIFT is Present. Laboratory - Chemistry and C hemistry - challengeOrdered By: Bing Birmingham on 10-14-2024 AST [Catalytic activity/Vol] 8 U/L <38 [facility] MCV (mean corpuscular volume ) determinationOrdered By: Bing Birmingham on 10-14-2024 MCV (RBC) [Entitic vol] 98.2 fL High 80-94 [facility] Magnesiumon 10-14-2024 Magnesium [Mass/Vol] 2.5 mg/dL High 1.5-2.2 [facility] Comment on above: Performed By: #### L 500.4050, L501.2300, L100.0100, L501.5200 #### [facility] [address] [place], [place] [address]all [facility] [place], [address] Magnesium measurement (mass/ volume)Ordered By: Bing Birmingham on 10-14-2024 Magnesium (Unsp spec) [Mass/Vol] 2.5 mg/dL High 1.5-2.2 [facility] Mean corpuscular hemoglobin (MCH) determinationOrdered By: Bing Birmingham on 10-14-2024 MCH (RBC) [Entitic mass] 31.8 pg 27.0-32.0 [facility] Mean corpuscular hemoglobin concentration (MCHC) determinationOrdered By: Bing Birmingham on 10-14-2024 MCHC (RBC) [Mass/Vol] 32.4 g/dL 32-36 [facility] Mean platelet volume determi nationOrdered By: Bing Birmignham on 10-14-2024 Platelet mean volume (Bld) [Entitic vol] 9.4 fL 6.2-12.0 [facility] Monocyte percentageOrdered B y: Bing Birmingham on 10-14-2024 Monocytes/100 WBC (Bld) 6.1 % 0-10 [facility] Neutrophil percentageOrdered By: Bing Birmingham on 10-14-2024 Neutrophils/100 WBC (Bld) 63.4 % 47-70 [facility] Nucleated red blood cell per centageOrdered By: Bing Birmingham on 10-14-2024 Nucleated RBC/100 WBC (Bld) [Ratio] 0 % 0-5 [facility] Phosphoruson 10-14-2024 Phosphate [Mass/Vol] 6.6 mg/dL High 2.7-4.5 [facility] Comment on above: Performed By: #### L 500.4050, L501.2300, L100.0100, L501.5200 #### [facility] [address] [place], [place], [address] Platelet countOrdered By: Jose M Birmingham on 10-14-2024 Platelets (Bld) [#/Vol] 231 10*3/uL 150-450 [facility] Potassiumon 10-14-2024 Potassium [Moles/Vol] 5.6 mmol/L High 3.3-5.1 [facility] Comment on above: Order Comment: Comme nts: K+ elevated after HD treatment Performed By: #### L 501.5600 #### [facility] [address] [place], [place], [address] Potassium measurement (mass/ volume)Ordered By: Segundo Yanes on 10-14-2024 Potassium (Unsp spec) [Mass/Vol] 5.6 mmol/L High 3.3-5.1 [facility] RBC Auto (Bld) [#/Vol]Ordere d By: Bing Birmingham on 10-14-2024 RBC (Bld) [#/Vol] 2.80 10*6/uL Low 4.6-6.2 [facility] Serum creatinine measurement (mass/volume)Ordered By: Bing Birmingham on 10-14-2024 Creatinine [Mass/Vol] 10.10 mg/dL High 0.70-1.20 [facility] Comment on above: Critical Result(s) C alled at:0632 by: LAKIA PISANO TO JOHNNA FERNANDEZ Results read back by same. Serum globulin measurementOr dered By: Bing Birmingham on 10-14-2024 Globulin (S) [Mass/Vol] 2.0 g/dL Low 2.2-4.2 [facility] Serum glucose measurement (m ass/volume)Ordered By: Bing Birmingham on 10-14-2024 Glucose [Mass/Vol] 93 mg/dL 70-99 [facility] Serum or plasma alanine bullock otransferase (ALT) measurementOrdered By: Bing Birmingham on 10-14-2024 ALT [Catalytic activity/Vol] 10 U/L <47 [facility] Serum or plasma albumin sharyn urement (mass/volume)Ordered By: Bing Birmingham on 10-14-2024 Albumin [Mass/Vol] 3.7 g/dL 3.5-5.0 [facility] Serum or plasma albumin/glob ulin mass ratioOrdered By: Bing Birmingham on 10-14-2024 Albumin/Globulin [Mass ratio] 1.9 {ratio} 0.9-2.4 [facility] Serum or plasma alkaline sharda sphatase measurementOrdered By: Bing Birmingham on 10-14-2024 ALP [Catalytic activity/Vol] 70 U/L 40-129 [facility] Serum or plasma calcium sharyn urement (mass/volume)Ordered By: Bing Birmingham on 10-14-2024 Calcium [Mass/Vol] 9.1 mg/dL 7.6-11.0 [facility] Serum or plasma urea nitroge n measurement (mass/volume)Ordered By: Bing Birmingham on 10-14-2024 Urea nitrogen [Mass/Vol] 38 mg/dL High 4-19 [facility] Sodium levelOrdered By: Nerissa Birmingham on 10-14-2024 Sodium [Moles/Vol] 138 mmol/L 133-145 [facility] Total proteinOrdered By: Jen Birmingham on 10-14-2024 Protein [Mass/Vol] 5.7 g/dL Low 5.9-8.4 [facility] White blood cell (WBC) count Ordered By: Bing Birmingham on 10-14-2024 WBC (Bld) [#/Vol] 8.7 10*3/uL 4.4-11.0 [facility] 12 Lead EKGon 10-13-2024 12 Lead EKG [facility] Cardiovascular Services [address] [place] [address] 12 Lead EKG 10/13/24 0907 MR#: [id number] Acct: [id number] Name: LAWSON DOYLE Rep #: [id number] : 2000 24 From: Juan Stacy MD Attending Dr: Dr. Bing Birmingham, Status: ADM I NO Ordering Dr: Arley Kirby DO Date: 10/13/24 Location: [facility] Sex: M C Admitted: 10/13/24 Test Reason : SOB Blood Pressure : */* mmHG Vent. Rate : 99 BPM Atrial Rate : 99 BPM P-R Int : 142 ms QRS Dur : 82 ms QT Int : 360 ms P-R-T Axes : 55 67 96 degrees QTcB Int : 462 ms Normal sinus rhythm Normal ECG Confirmed by ROD PEREIRA, JUAN ([id number]), technical writer and editor TERRA HOOKS ([id number]) on 10/14/2024 1:00:49 PM Referred By: Confirmed By: JUAN STACY MD 10/14/24 1300 Date Juan Stacy MD CC: Dr. Arley Kirby, ; Dr. Bing Birmingham, ; No Primary Care Physician Signed Normal [facility] Absolute lymphocyte countOrd ered By: Arley Kirby on 10-13-2024 Lymphocytes Auto (Unsp spec) [#/Vol] 1.75 10*3/uL 0.83-4.51 [facility] Absolute neutrophil countOrd ered By: Arley Kirby on 10-13-2024 Neutrophils (Bld) [#/Vol] 5.7 10*3/uL 2.0-7.7 [facility] Anion gap in Serum or Plasma Ordered By: Arley Kirby on 10-13-2024 Anion gap [Moles/Vol] 19 mmol/L High 5-15 [facility] Automated lymphocyte count a s percentage of total leukocytesOrdered By: Arley Kirby on 10-13-2024 Lymphocytes/100 WBC Auto (Unsp spec) 20.8 % 19-41 [facility] BUN/creatinine ratioOrdered By: Arley Kirby on 10-13-2024 Urea nitrogen/Creatinine [Mass ratio] 3.0 mg/mg Low 10-20 [facility] Basic Metabolic Profile (BMP )on 10-13-2024 BUN/CRE 3.0 RATIO Low 10-20 [facility] Comment on above: Performed By: #### L 503.7505, L100.0100, L500.2500 ####[facility] [address] [place], [address] Calcium [Mass/Vol] 9.9 mg/dL Normal 7.6-11.0 [facility] Comment on above: Performed By: #### L 503.7505, L100.0100, L500.2500 ####[facility] [address] [place], [address] Chloride [Moles/Vol] 96 mmol/L Low 98-108 [facility] Comment on above: Performed By: #### L 503.7505, L100.0100, L500.2500 ####[facility] [address] [place], [address] CO2 [Moles/Vol] 24.4 mmol/L Normal 21.0-32.0 [facility] Comment on above: Performed By: #### L 503.7505, L100.0100, L500.2500 ####[facility] [address] [place], [address] Creatinine [Mass/Vol] 12.50 mg/dL Invalid Interpretation Code 0.70-1.20 [facility] Comment on above: Result Comment: Crit ical Result(s) Called at 0951: by: SEGUNDO NJ TO ??Results read back by same. Performed By: #### L 503.7505, L100.0100, L500.2500 ####[facility] [address] [place], [address] ECRCL 9.33 ml/min Invalid Interpretation Code 50-250 [facility] Comment on above: Performed By: #### L 503.7505, L100.0100, L500.2500 ####[facility] [address] [place], [address] GAP 19 High 5-15 [facility] Comment on above: Performed By: #### L 503.7505, L100.0100, L500.2500 ####[facility] [address] [place], [address] GFR/1.73 sq M.predicted among non-blacks MDRD (S/P/Bld) [Vol rate/Area] 5 mL/min/{1.73_m2} Low >60 [facility] Comment on above: Result Comment: mL/m in/1.73m2 CKD-EPI Creatinine Equation (2020) Performed By: #### L 503.7505, L100.0100, L500.2500 ####[facility] [address] [place], [address] Glucose [Mass/Vol] 98 mg/dL Normal 70-99 [facility] Comment on above: Performed By: #### L 503.7505, L100.0100, L500.2500 ####[facility] [address] [place], [address] Potassium [Moles/Vol] 5.0 mmol/L Normal 3.3-5.1 [facility] Comment on above: Performed By: #### L 503.7505, L100.0100, L500.2500 ####[facility] [address] [place], [address] Sodium [Moles/Vol] 140 mmol/L Normal 133-145 [facility] Comment on above: Performed By: #### L 503.7505, L100.0100, L500.2500 ####[facility] [address] [place], [address] Urea nitrogen [Mass/Vol] 38 mg/dL High 4-19 [facility] Comment on above: Performed By: #### L 503.7505, L100.0100, L500.2500 ####[facility] [address] [place], [address] Basophil percentageOrdered B y: Arley Kirby on 10-13-2024 Basophils/100 WBC (Bld) 0.2 % 0-1 [facility] CBC W/Diff, Automatedon 09-17 Absolute Lymph 1.75 X10 3/uL Normal 0.83-4.51 [facility] Comment on above: Performed By: #### L 503.7505, L100.0100, L500.2500 ####[facility] [address] [place], [address] Absolute Neut 5.7 X10 3/uL Normal 2.0-7.7 [facility] Comment on above: Performed By: #### L 503.7505, L100.0100, L500.2500 ####[facility] [address] [place], [address] Basophils/100 WBC (Bld) 0.2 % Normal 0-1 [facility] Comment on above: Performed By: #### L 503.7505, L100.0100, L500.2500 ####[facility] [address] [place], [address] Eosinophils/100 WBC (Bld) 4.9 % Normal 0-5 [facility] Comment on above: Performed By: #### L 503.7505, L100.0100, L500.2500 ####[facility] [address] [place], [address] Erythrocyte distribution width (RBC) [Ratio] 16.3 % High 11.6-14.6 [facility] Comment on above: Performed By: #### L 503.7505, L100.0100, L500.2500 ####[facility] [address] [place], [address] Hematocrit (Bld) [Volume fraction] 29.2 % Low 40-54 [facility] Comment on above: Performed By: #### L 503.7505, L100.0100, L500.2500 ####[facility] [address] [place], [address] Hemoglobin (Bld) [Mass/Vol] 9.4 g/dL Low 13.0-16.5 [facility] Comment on above: Performed By: #### L 503.7505, L100.0100, L500.2500 ####[facility] [address] [place], [address] IG% 0.400 Normal 0.0-0.9 [facility] Comment on above: Result Comment: IG% - Immature Granulocytes (promyelocytes, myelocytes and metamyelocytes) > 1% indicates that a LEFT SHIFT is Present. Performed By: #### L 503.7505, L100.0100, L500.2500 ####[facility] [address] [place], [address] Lymphocytes/100 WBC (Bld) 20.8 % Normal 19-41 [facility] Comment on above: Performed By: #### L 503.7505, L100.0100, L500.2500 ####[facility] [address] [place], [address] MCH (RBC) [Entitic mass] 32.0 pg Normal 27.0-32.0 [facility] Comment on above: Performed By: #### L 503.7505, L100.0100, L500.2500 ####[facility] [address] [place], [address] MCHC (RBC) [Mass/Vol] 32.2 g/dL Normal 32-36 [facility] Comment on above: Performed By: #### L 503.7505, L100.0100, L500.2500 ####[facility] [address] [place], [address] MCV (RBC) [Entitic vol] 99.3 fL High 80-94 [facility] Comment on above: Performed By: #### L 503.7505, L100.0100, L500.2500 ####[facility] [address] [place], [address] Monocytes/100 WBC (Bld) 5.8 % Normal 0-10 [facility] Comment on above: Performed By: #### L 503.7505, L100.0100, L500.2500 ####[facility] [address] [place], [address] Neutrophils/100 WBC (Bld) 67.9 % Normal 47-70 [facility] Comment on above: Performed By: #### L 503.7505, L100.0100, L500.2500 ####[facility] [address] [place], [address] Nucleated RBC (Bld) [#/Vol] 0 10*3/uL Normal 0-5 [facility] Comment on above: Performed By: #### L 503.7505, L100.0100, L500.2500 ####[facility] [address] [place], [address] Platelet mean volume (Bld) [Entitic vol] 9.3 fL Normal 6.2-12.0 [facility] Comment on above: Performed By: #### L 503.7505, L100.0100, L500.2500 ####[facility] [address] [place], [address] Platelets (Bld) [#/Vol] 252 10*3/uL Normal 150-450 [facility] Comment on above: Performed By: #### L 503.7505, L100.0100, L500.2500 ####[facility] [address] [place], [address] RBC (Bld) [#/Vol] 2.94 10*6/uL Low 4.6-6.2 [facility] Comment on above: Performed By: #### L 503.7505, L100.0100, L500.2500 ####[facility] [address] [place], [address] RDW SD 58.7 fl High 35.1-43.9 [facility] Comment on above: Performed By: #### L 503.7505, L100.0100, L500.2500 ####[facility] [address] [place], [address] WBC (Bld) [#/Vol] 8.4 10*3/uL Normal 4.4-11.0 [facility] Comment on above: Performed By: #### L 503.7505, L100.0100, L500.2500 ####[facility] [address] [place], [address] Carbon dioxide, total [Moles /volume] in Central venous bloodOrdered By: Arley Kirby on 10-13-2024 CO2 [Moles/Vol] 24.4 mmol/L 21.0-32.0 [facility] Chest PA and Lateralon 10-13 Chest PA and Lateral [facility] Imaging Services [address] [place] [address] Chest PA and Lateral MR#: [id number] Acct: [id number] Name: LAWSON DOYLE Rep #: [id number] : 2000 M 24 From: Abelardo villanueva MD PCP: Care Physician,No Primary Status: REG ER Study: Chest PA and Lateral Date of Exam: 10/13/24 Exam# [id number] Ordering Dr: Arley Kirby DO PROCEDURE: CHEST [...] of vascular congestion and CHF. Reading Location: [facility] CC: Dr. Arley Kirby, DO; No Primary Care Physician Fur Blower: Signed Normal [facility] Chloride assayOrdered By: Yossi Kirby on 10-13-2024 Chloride [Moles/Vol] 96 mmol/L Low 98-108 [facility] Echo Completeon 10-13-2024 Echo Complete [facility] Cardiovascular Services [address] [place] [address] Echo Complete 10/14/24 0846 MR#: [id number] Acct: [id number] Name: LAWSON DOYLE Rep #: [id number] : 2000 24 From: Juan Stacy MD [...] Dictated: 10/14/24 0846 Date Transcribed: 10/14/24 1120 Fur Blower: Signed Normal [facility] Emergency Department Summary on 10-13-2024 Emergency Department Summary [facility] Medical Records Department [address] [place] [address] Emergency Department Summary 10/13/24 MR#: [id number] Acct: [id number] Name: LAWSON DOYLE Rep #: [id number] : 2000 24 From: Arley Kirby DO PCP: Care Physician,No Primary Status:ADM KEYANNA Location: [address] History of Present Illness Chief Complaint: [...] Recent immobilization, Recent surgery or Recent travel [facility] Medical History (Updated 10/13/24 @ 12:[address] Arley Kirby DO) Hypertension Dialysis patient Arteriovenous fistula of right upper extremity [employer] [facility] Home Medications ???Medication ???Instructions ???Recorded ???Last [...] 1 - 2 puff inhalation Q4H PRN [place] N 10/03/24 Unknown Rx aerosol inhaler (Ventolin [...] no JVD (more content not included)... Normal [facility] Eosinophil percentageOrdered By: Arley Kirby on 10-13-2024 Eosinophils/100 WBC (Bld) 4.9 % 0-5 [facility] Erythrocyte distribution wid th ratioOrdered By: Arley Kirby on 10-13-2024 Erythrocyte distribution width (RBC) [Ratio] 16.3 % High 11.6-14.6 [facility] Erythrocyte distribution wid th standard deviationOrdered By: Arley Kirby on 10-13-2024 Erythrocyte distribution width (RBC) [Ratio] 58.7 fl High 35.1-43.9 [facility] Glomerular filtration rate ( GFR) estimation/1.73 sq m using serum, plasma, or whole bOrdered By: Arley Kirby on 10-13-2024 GFR/1.73 sq M.predicted among non-blacks MDRD (S/P/Bld) [Vol rate/Area] 5 mL/min/{1.73_m2} Low >60 [facility] Comment on above: mL/min/1.73m2 CKD-EP I Creatinine Equation (2020) H AND P Exam - [place] 10-13-2024 H&P Exam - Hospitalist [facility] Medical Records Department [address] [place] [address] H P Exam - Hospitalist 10/13/24 1220 MR#: [id number] Acct: [id number] Name: LAWSON DOYLE Rep #: [id number] : 2000 24 From: Bing Birmingham DO PCP: Care Physician,No Primary Status:ADM KEYANNA Location: [place] [address] HPI - General General Date of Admission: 10/13/24 Date of Service: 10/13/24 Chief Complaint: Shortness of breath HPI Narrative LAWSON DOYLE, is a 24 M who presented to the emergency department at [facility] on 10/05/2024 complaining of shortness of breath. [...] the plan is for urgent HD today. [facility] Medical History (Updated 10/13/24 @ 16:33 by [...] 1 - 2 puff inhalation Q4H PRN NH N 10/03/24 Unknown Rx aerosol inhaler (Ventolin [...] urinary inco (more content not included)... Normal [facility] Hematocrit Auto (Bld) [Volum e fraction]Ordered By: Arley Kirby on 10-13-2024 Hematocrit (Bld) [Volume fraction] 29.2 % Low 40-54 [facility] Hemoglobin measurementOrdere d By: Arley Kirby on 10-13-2024 Hemoglobin (Bld) [Mass/Vol] 9.4 g/dL Low 13.0-16.5 [facility] Immature granulocytes/100 WB C Auto (Bld)Ordered By: Arley Kirby on 10-13-2024 Immature granulocytes/100 WBC (Bld) 0.400 % 0.0-0.9 [facility] Comment on above: IG% - Immature Granu locytes (promyelocytes, myelocytes and metamyelocytes) > 1% indicates that a LEFT SHIFT is Present. MCV (mean corpuscular volume ) determinationOrdered By: Arley Kirby on 10-13-2024 MCV (RBC) [Entitic vol] 99.3 fL High 80-94 [facility] Mean corpuscular hemoglobin (MCH) determinationOrdered By: Arley Kirby 10-13-2024 MCH (RBC) [Entitic mass] 32.0 pg 27.0-32.0 [facility] Mean corpuscular hemoglobin concentration (MCHC) determinationOrdered By: Arley Kirby 10-13-2024 MCHC (RBC) [Mass/Vol] 32.2 g/dL 32-36 [facility] Mean platelet volume determi nationOrdered By: Arley Kirby 10-13-2024 Platelet mean volume (Bld) [Entitic vol] 9.3 fL 6.2-12.0 [facility] Monocyte percentageOrdered B y: Arley Kirby on 10-13-2024 Monocytes/100 WBC (Bld) 5.8 % 0-10 [facility] Natriuretic peptide.B prohor angel N-Terminal [Mass/volume] in Serum or PlasmaOrdered By: Arley Kirby on 10-13-2024 Natriuretic peptide.B prohormone N-Terminal [Mass/Vol] 71353 pg/mL High <450 [facility] Comment on above: Heart Failure Unlike ly: < 300 pg/mLHeart Failure Likely< 50 Years: > 450 pg/mL50-75 Years: > 900 pg/mL>75 Years: > 1800 pg/mL Neutrophil percentageOrdered By: Arley Kirby on 10-13-2024 Neutrophils/100 WBC (Bld) 67.9 % 47-70 [facility] Nucleated red blood cell per centageOrdered By: Arley Kirby on 10-13-2024 Nucleated RBC/100 WBC (Bld) [Ratio] 0 % 0-5 [facility] Platelet countOrdered By: Yossi Kirby on 10-13-2024 Platelets (Bld) [#/Vol] 252 10*3/uL 150-450 [facility] Potassium measurement (mass/ volume)Ordered By: Arley Kirby on 10-13-2024 Potassium (Unsp spec) [Mass/Vol] 5.0 mmol/L 3.3-5.1 [facility] Pro- Brain NATRIURETIC PEPTI Prieto 10-13-2024 Natriuretic peptide B (Bld) [Mass/Vol] 22578 pg/mL High <=450 [facility] Comment on above: Result Comment: Hear t Failure Unlikely: < 300 pg/mL Heart Failure Likely < 50 Years: > 450 pg/mL 50-75 Years: > 900 pg/mL >75 Years: > 1800 pg/mL Performed By: #### L 503.7505, L100.0100, L500.2500 ####[facility] [address] [facility] [place], [address] RBC Auto (Bld) [#/Vol]Ordere d By: Arley Kirby on 10-13-2024 RBC (Bld) [#/Vol] 2.94 10*6/uL Low 4.6-6.2 [facility] Serum creatinine measurement (mass/volume)Ordered By: Arley Kirby on 10-13-2024 Creatinine [Mass/Vol] 12.50 mg/dL High 0.70-1.20 [facility] Comment on above: Critical Result(s) C alled at 0951: by: SEGUNDO DUBOIS. Results read back by same. Serum glucose measurement (m ass/volume)Ordered By: Arley Kirby on 10-13-2024 Glucose [Mass/Vol] 98 mg/dL 70-99 [facility] Serum or plasma calcium sharyn urement (mass/volume)Ordered By: Arley Kirby on 10-13-2024 Calcium [Mass/Vol] 9.9 mg/dL 7.6-11.0 [facility] Serum or plasma urea nitroge n measurement (mass/volume)Ordered By: Arley Kirby on 10-13-2024 Urea nitrogen [Mass/Vol] 38 mg/dL High 4-19 [facility] Sodium levelOrdered By: Arleyyamil Kiryb on 10-13-2024 Sodium [Moles/Vol] 140 mmol/L 133-145 [facility] White blood cell (WBC) count Ordered By: Arley Kirby on 10-13-2024 WBC (Bld) [#/Vol] 8.4 10*3/uL 4.4-11.0 [facility] Abdomen/Pelvis without Conto n 10-03-2024 Abdomen/Pelvis without Cont [facility] Imaging Services [address] [place] [address] [id number] Abdomen/Pelvis without Cont MR#: [id number] Acct: [id number] Name: LAWSON DOYLE Rep #: [id number] : 2000 M 24 From: Buck Massey MD PCP: Care Physician,No Primary Status: REG ER Study: Abdomen/Pelvis without Cont Date of Exam: 09/16 11/10 Exam# [id number] Ordering Dr: Josette Herron DO PROCEDURE: ABDOMEN/PELVIS [...] Cont IMPRESSION: No acute abnormality. Reading [facility] CC: Dr. Josette Herron, DO; No Primary Care Physician Fur Blower: Signed Normal [facility] Absolute lymphocyte countOrd ered By: Josette Herron on 10-03-2024 Lymphocytes Auto (Unsp spec) [#/Vol] 1.64 10*3/uL 0.83-4.51 [facility] Absolute neutrophil countOrd ered By: Josette Herron on 10-03-2024 Neutrophils (Bld) [#/Vol] 5.4 10*3/uL 2.0-7.7 [facility] Activated partial thrombopla stin time (aPTT) in platelet poor plasma by coagulation aOrdered By: Josette Herron on 10-03-2024 aPTT Coag (PPP) [Time] 30.9 s 24.1-36.2 [facility] Anion gap in Serum or Plasma Ordered By: Josette Herron on 10-03-2024 Anion gap [Moles/Vol] 11 mmol/L 5-15 [facility] Automated lymphocyte count a s percentage of total leukocytesOrdered By: Josette Herron on 10-03-2024 Lymphocytes/100 WBC Auto (Unsp spec) 20.7 % 19-41 [facility] BUN/creatinine ratioOrdered By: Josette Herron on 10-03-2024 Urea nitrogen/Creatinine [Mass ratio] 2.0 mg/mg Low 10-20 [facility] Basophil percentageOrdered B y: Josette Herron on 10-03-2024 Basophils/100 WBC (Bld) 0.3 % 0-1 [facility] Bilirubin Test strip Ql (U)O rdered By: Josette Herron on 10-03-2024 Bilirubin Ql (U) Negative Negative [facility] CBC W/Diff, Automatedon 09-16 Absolute Lymph 1.64 X10 3/uL Normal 0.83-4.51 [facility] Comment on above: Performed By: #### L 100.0100, L500.2500 #### [facility] [address] [place], [address] Absolute Neut 5.4 X10 3/uL Normal 2.0-7.7 [facility] Comment on above: Performed By: #### L 100.0100, L500.2500 #### [facility] [address] [place], [address] Basophils/100 WBC (Bld) 0.3 % Normal 0-1 [facility] Comment on above: Performed By: #### L 100.0100, L500.2500 #### [facility] [address] [place], [address] Eosinophils/100 WBC (Bld) 5.5 % High 0-5 [facility] Comment on above: Performed By: #### L 100.0100, L500.2500 #### [facility] [address] [place], [address] Erythrocyte distribution width (RBC) [Ratio] 14.9 % High 11.6-14.6 [facility] Comment on above: Performed By: #### L 100.0100, L500.2500 #### [facility] [address] [place], [address] Hematocrit (Bld) [Volume fraction] 27.0 % Low 40-54 [facility] Comment on above: Performed By: #### L 100.0100, L500.2500 #### [facility] [address] [place], [address] Hemoglobin (Bld) [Mass/Vol] 8.9 g/dL Low 13.0-16.5 [facility] Comment on above: Performed By: #### L 100.0100, L500.2500 #### [facility] [address] [place] [place], [address] IG% 0.500 Normal 0.0-0.9 [facility] Comment on above: Result Comment: IG% - Immature Granulocytes (promyelocytes, myelocytes and metamyelocytes) > 1% indicates that a LEFT SHIFT is Present. Performed By: #### L 100.0100, L500.2500 #### [facility] [address] [place], [address] Lymphocytes/100 WBC (Bld) 20.7 % Normal 19-41 [facility] Comment on above: Performed By: #### L 100.0100, L500.2500 #### [facility] [address] [place], [address] MCH (RBC) [Entitic mass] 31.1 pg Normal 27.0-32.0 [facility] Comment on above: Performed By: #### L 100.0100, L500.2500 #### [facility] [address] [place], [address] MCHC (RBC) [Mass/Vol] 33.0 g/dL Normal 32-36 [facility] Comment on above: Performed By: #### L 100.0100, L500.2500 #### [facility] [address] [place], [address] MCV (RBC) [Entitic vol] 94.4 fL High 80-94 [facility] Comment on above: Performed By: #### L 100.0100, L500.2500 #### [facility] [address] [place], [address] Monocytes/100 WBC (Bld) 5.2 % Normal 0-10 [facility] Comment on above: Performed By: #### L 100.0100, L500.2500 #### [facility] [address] [place], [address] Neutrophils/100 WBC (Bld) 67.8 % Normal 47-70 [facility] Comment on above: Performed By: #### L 100.0100, L500.2500 #### [facility] [address] [place], [address] Nucleated RBC (Bld) [#/Vol] 0 10*3/uL Normal 0-5 [facility] Comment on above: Performed By: #### L 100.0100, L500.2500 #### [facility] [address] [place], [address] Platelet mean volume (Bld) [Entitic vol] 9.5 fL Normal 6.2-12.0 [facility] Comment on above: Performed By: #### L 100.0100, L500.2500 #### [facility] [address] [place], [address] Platelets (Bld) [#/Vol] 198 10*3/uL Normal 150-450 [facility] Comment on above: Performed By: #### L 100.0100, L500.2500 #### [facility] [address] [place], [address] RBC (Bld) [#/Vol] 2.86 10*6/uL Low 4.6-6.2 [facility] Comment on above: Performed By: #### L 100.0100, L500.2500 #### [facility] [address] [place], [address] RDW SD 50.8 fl High 35.1-43.9 [facility] Comment on above: Performed By: #### L 100.0100, L500.2500 #### [facility] [address] [place], [address] WBC (Bld) [#/Vol] 7.9 10*3/uL Normal 4.4-11.0 [facility] Comment on above: Performed By: #### L 100.0100, L500.2500 #### [facility] [address] [place], [address] Carbon dioxide, total [Moles /volume] in Central venous bloodOrdered By: Josette Herron on 10-03-2024 CO2 [Moles/Vol] 31.5 mmol/L 21.0-32.0 [facility] Chest PA and Lateralon 10-03 Chest PA and Lateral [facility] Imaging Services [address] [place] [address] Chest PA and Lateral MR#: [id number] Acct: [id number] Name: LAWSON DOYLE Rep #: [id number] : 2000 M 24 From: Gabriele Castillo MD PCP: Care Physician,No Primary Status: [facility] ER Study: Chest PA and Lateral Date of Exam: 10/03/24 Exam# [id number] Ordering Dr: Josette Herron DO PROCEDURE: CHEST [...] to reflect cardiogenic alveolar edema. Reading Location: [facility] CC: Dr. Josette Herron DO; No Primary Care Physician Fur Blower: Signed Normal [facility] Chloride assayOrdered By: Ernst Herron on 10-03-2024 Chloride [Moles/Vol] 95 mmol/L Low 98-108 [facility] Emergency Department Summary on 10-03-2024 Emergency Department Summary [facility] Medical Records Department [address] [place] [address] Emergency Department Summary 10/03/24 MR#: [id number] Acct: [id number] Name: LAWSON DOYLE Rep #: [id number] : 2000 24 From: Josette Herron DO [...] is minimally productive today of pink phlegm. [facility] Medical History Dialysis patient Arteriovenous fistula of [...] 1 - 2 puff inhalation Q4H PRN NH N 10/03/24 Unknown Rx aerosol inhaler (Ventolin [...] to in (more content not included)... Normal [facility] Eosinophil percentageOrdered By: Josette Herron on 10-03-2024 Eosinophils/100 WBC (Bld) 5.5 % High 0-5 [facility] Erythrocyte distribution wid th ratioOrdered By: Josette Herron on 10-03-2024 Erythrocyte distribution width (RBC) [Ratio] 14.9 % High 11.6-14.6 [facility] Erythrocyte distribution wid th standard deviationOrdered By: Josette Herron on 10-03-2024 Erythrocyte distribution width (RBC) [Ratio] 50.8 fl High 35.1-43.9 [facility] Glomerular filtration rate ( GFR) estimation/1.73 sq m using serum, plasma, or whole bOrdered By: Josette Herron on 10-03-2024 GFR/1.73 sq M.predicted among non-blacks MDRD (S/P/Bld) [Vol rate/Area] 13 mL/min/{1.73_m2} Low >60 [facility] Comment on above: mL/min/1.73m2 CKD-EP I Creatinine Equation (2020) Hematocrit Auto (Bld) [Volum e fraction]Ordered By: Josette Herron on 10-03-2024 Hematocrit (Bld) [Volume fraction] 27.0 % Low 40-54 [facility] Hemoglobin measurementOrdere d By: Josette Herron on 10-03-2024 Hemoglobin (Bld) [Mass/Vol] 8.9 g/dL Low 13.0-16.5 [facility] Immature granulocytes/100 WB C Auto (Bld)Ordered By: Josette Herron on 07-18-2025 Immature granulocytes/100 WBC (Bld) 0.500 % 0.0-0.9 [facility] Comment on above: IG% - Immature Granu locytes (promyelocytes, myelocytes and metamyelocytes) > 1% indicates that a LEFT SHIFT is Present. Influenza virus A and B and SARS-CoV-2 (COVID-19) and Respiratory syncytial virus RNAOrdered By: Josette Herron on 10-03-2024 SARS-CoV-2 (COVID-19) RNA MIGUEL+probe Ql (Unsp spec) [facility] International normalized rat io (INR) calculationOrdered By: Josette Herron on 10-03-2024 INR Coag (Bld) [Relative time] 0.9 {INR} [facility] Ketones Test strip Ql (U)Ord ered By: Josette Herron on 10-03-2024 Ketones Ql (U) Negative Negative [facility] M100.678on 10-03-2024 M100.678 Pending SARS-CoV-2 (COVID 19) Negative INFLUENZA A Negative INFLUENZA B Negative RSV PCR Negative Normal [facility] Comment on above: Performed By: #### M 100.678 ####[facility] [address] [place], [place], [id number] MCV (mean corpuscular volume ) determinationOrdered By: Josette Herron on 10-03-2024 MCV (RBC) [Entitic vol] 94.4 fL High 80-94 [facility] Mean corpuscular hemoglobin (MCH) determinationOrdered By: Josette Herron on 10-03-2024 MCH (RBC) [Entitic mass] 31.1 pg 27.0-32.0 [facility] Mean corpuscular hemoglobin concentration (MCHC) determinationOrdered By: Josette Herron on 10-03-2024 MCHC (RBC) [Mass/Vol] 33.0 g/dL 32-36 [facility] Mean platelet volume determi nationOrdered By: Josette Herron on 10-03-2024 Platelet mean volume (Bld) [Entitic vol] 9.5 fL 6.2-12.0 [facility] Microscopic analysis of urin e for red blood cells (RBC)Ordered By: Josette Herron on 10-03-2024 Microscopic analysis of urine for red blood cells (RBC) 0-5 SEEN /hpf 0-5 [facility] Monocyte percentageOrdered B y: Josette Herron on 10-03-2024 Monocytes/100 WBC (Bld) 5.2 % 0-10 [facility] Mucus LM Ql (Urine sed)Order ed By: Josette Herron on 10-03-2024 Mucus Ql (Urine sed) 0 SEEN /hpf [facility] Neutrophil percentageOrdered By: Josette Herron on 10-03-2024 Neutrophils/100 WBC (Bld) 67.8 % 47-70 [facility] Nitrite Test strip Ql (U)Ord ered By: Josette Herron on 10-03-2024 Nitrite Ql (U) Negative Negative [facility] Nucleated red blood cell per centageOrdered By: Josette Herron on 10-03-2024 Nucleated RBC/100 WBC (Bld) [Ratio] 0 % 0-5 [facility] Partial Thromboplast Timeon 10-03-2024 aPTT Coag (Bld) [Time] 30.9 s Normal 24.1-36.2 [facility] Comment on above: Performed By: #### L 300.3900, L300.4310 ####[facility] [address] [place], [address] Platelet countOrdered By: Ernst Herron on 10-03-2024 Platelets (Bld) [#/Vol] 198 10*3/uL 150-450 [facility] Potassium measurement (mass/ volume)Ordered By: Josette Herron on 10-03-2024 Potassium (Unsp spec) [Mass/Vol] 4.2 mmol/L 3.3-5.1 [facility] Protein Test strip Ql (U)Ord ered By: Josette Herron on 10-03-2024 Protein Ql (U) 100 mg/dl High Negative [facility] Prothrombin Time w/INRon INR Coag (PPP) [Relative time] 0.9 {INR} Normal [facility] Comment on above: Performed By: #### L 300.3900, L300.4310 #### [facility] [address] [place], [address] PT Coag (PPP) [Time] 12.8 s Normal 11.7-14.9 [facility] Comment on above: Performed By: #### L 300.3900, L300.4310 #### [facility] [address] [place], [address] Prothrombin timeOrdered By: Josette Herron on 10-03-2024 PT Coag (PPP) [Time] 12.8 s 11.7-14.9 [facility] RBC Auto (Bld) [#/Vol]Ordere d By: Josette Herron on 10-03-2024 RBC (Bld) [#/Vol] 2.86 10*6/uL Low 4.6-6.2 [facility] Renal Profileon 10-03-2024 Albumin [Mass/Vol] 3.9 g/dL Normal 3.5-5.0 [facility] Comment on above: Performed By: #### L 100.0100, L500.2500 #### [facility] [address] [place], [address] BUN/CRE 2.0 RATIO Low 10-20 [facility] Comment on above: Performed By: #### L 100.0100, L500.2500 #### [facility] [address] [place], [address] Calcium [Mass/Vol] 9.1 mg/dL Normal 7.6-11.0 [facility] Comment on above: Performed By: #### L 100.0100, L500.2500 #### [facility] [address] [place], [address] Chloride [Moles/Vol] 95 mmol/L Low 98-108 [facility] Comment on above: Performed By: #### L 100.0100, L500.2500 #### [facility] [address] [place], [address] CO2 [Moles/Vol] 31.5 mmol/L Normal 21.0-32.0 [facility] Comment on above: Performed By: #### L 100.0100, L500.2500 #### [facility] [address] [place], [address] Creatinine [Mass/Vol] 5.84 mg/dL High 0.70-1.20 [facility] Comment on above: Performed By: #### L 100.0100, L500.2500 #### [facility] [address] [place], [address] ECRCL 19.97 ml/min Low 50-250 [facility] Comment on above: Performed By: #### L 100.0100, L500.2500 #### [facility] [address] [place], [address] GAP 11 Normal 5-15 [facility] Comment on above: Performed By: #### L 100.0100, L500.2500 #### [facility] [address] [place], [address] GFR/1.73 sq M.predicted among non-blacks MDRD (S/P/Bld) [Vol rate/Area] 13 mL/min/{1.73_m2} Low >60 [facility] Comment on above: Result Comment: mL/m in/1.73m2 CKD-EPI Creatinine Equation (2020) Performed By: #### L 100.0100, L500.2500 #### [facility] [address] [place], [address] Glucose [Mass/Vol] 92 mg/dL Normal 70-99 [facility] Comment on above: Performed By: #### L 100.0100, L500.2500 #### [facility] [address] [place], [address] Phosphate [Mass/Vol] 5.1 mg/dL High 2.7-4.5 [facility] Comment on above: Performed By: #### L 100.0100, L500.2500 #### [facility] [address] [place], [address] Potassium [Moles/Vol] 4.2 mmol/L Normal 3.3-5.1 [facility] Comment on above: Performed By: #### L 100.0100, L500.2500 #### [facility] [address] [place], [address] Sodium [Moles/Vol] 138 mmol/L Normal 133-145 [facility] Comment on above: Performed By: #### L 100.0100, L500.2500 #### [facility] [address] [place], [address] Urea nitrogen [Mass/Vol] 12 mg/dL Normal 4-19 [facility] Comment on above: Performed By: #### L 100.0100, L500.2500 #### [facility] [address] [place], [address] Serum creatinine measurement (mass/volume)Ordered By: Josette Herron on 10-03-2024 Creatinine [Mass/Vol] 5.84 mg/dL High 0.70-1.20 [facility] Serum glucose measurement (m ass/volume)Ordered By: Josette Herron on 10-03-2024 Glucose [Mass/Vol] 92 mg/dL 70-99 [facility] Serum or plasma albumin sharyn urement (mass/volume)Ordered By: Josette Herron on 10-03-2024 Albumin [Mass/Vol] 3.9 g/dL 3.5-5.0 [facility] Serum or plasma calcium sharyn urement (mass/volume)Ordered By: Josette Herron on 10-03-2024 Calcium [Mass/Vol] 9.1 mg/dL 7.6-11.0 [facility] Serum or plasma urea nitroge n measurement (mass/volume)Ordered By: Josette Herron on 10-03-2024 Urea nitrogen [Mass/Vol] 12 mg/dL 4-19 [facility] Sodium levelOrdered By: Landen Herron on 10-03-2024 Sodium [Moles/Vol] 138 mmol/L 133-145 [facility] Squamous epithelial cells de tection in urine sediment by light microscopyOrdered By: Josette Herron on 10-03-2024 Epithelial cells.squamous LM Ql (Urine sed) 0 SEEN /hpf 0-5 [facility] Urinalysis, Completeon 10-03 RBC 0-5 SEEN Normal 0-5 [facility] Comment on above: Order Comment: CLEAN CATCH Performed By: #### L 400.0001 ####[facility] [address] [place], [address] BACTERIA 0 SEEN Normal None Seen [facility] Comment on above: Order Comment: CLEAN CATCH Performed By: #### L 400.0001 ####[facility] [address] [place], [address] EPI,SQUAMOUS 0 SEEN Normal 0-5 [facility] Comment on above: Order Comment: CLEAN CATCH Performed By: #### L 400.0001 ####[facility] [address] [place], [address] Mucus Ql (Urine sed) [address] [facility] Comment on above: Order Comment: CLEAN CATCH Performed By: #### L 400.0001 ####[facility] [address] [place], [address] WBC 0 SEEN Normal 0-5 [facility] Comment on above: Order Comment: CLEAN CATCH Performed By: #### L 400.0001 ####[facility] [address] [place], [address] Urine clarityOrdered By: Keila Herron on 10-03-2024 Clarity (U) Clear Clear [facility] Urine color determinationOrd ered By: Josette Herron on 10-03-2024 Color (U) Yellow Yellow [facility] Urine glucose detectionOrder ed By: Josette Herron on 10-03-2024 Glucose Ql (U) 100 mg/dl High Normal [facility] Urine leukocyte esterase det ection by dipstickOrdered By: Josette Herron on 10-03-2024 Leukocyte esterase Test strip Ql (U) Negative Negative [facility] Urine pHOrdered By: Josette zuniga on 10-03-2024 pH (U) 8.0 [pH] 5.0 - 8.0 [facility] Urine sediment bacteria coun t by microscopy (number/high power field)Ordered By: Josette Herron on 10-03-2024 Bacteria LM.HPF (Urine sed) [#/Area] 0 /[HPF] None Seen [facility] Urine specific gravity measu rementOrdered By: Josette Herron on 10-03-2024 Specific gravity (U) [Rel density] 1.015 1.002-1.030 [facility] Urine urobilinogen measureme ntOrdered By: Josette Herron on 10-03-2024 Urobilinogen Ql (U) Normal mg/dl Normal [facility] White blood cell (WBC) count Ordered By: Josette Herron on 10-03-2024 WBC (Bld) [#/Vol] 7.9 10*3/uL 4.4-11.0 [facility] White blood cell countOrdere d By: Josette Herron on 10-03-2024 White blood cell count 0 SEEN /hpf 0-5 [facility] HISTORY PHYSICALon HISTORY PHYSICAL HNO ID: [id number] Author: VIKTOR VENCES DO Service: Vascular Surgery [...] DATE: September 16, 2024 TIME: 2:14 PM [facility] OPERATIVE NOon 09-16-2024 OPERATIVE NO HNO ID: [id number] Author: VIKTOR VENCES DO Service: Vascular Surgery Author Type: Physician Type: Operative Report Filed: 09/16/2024 15:42 Note Text: OPERATIVE/PROCEDURE REPORT LOG ID: [id number] Surgery/Procedure Date: 09/16/2024 Incision/Procedure Start Time: 2:46 PM Incision Close/Procedure End Time: 3:39 PM Surgeon(s)/Proceduralis t(s) and Molder Machine Tender(s): Surgeons and Role: * Viktor Vences DO - Primary Procedure(s): right upper extremity fistulogram and central venogram Balloon angioplasty of cephalic arch stenosis with 6mm and 7mm mustang balloon Anesthesia: moderate sedation Operative indications: 24 year old male who presents for right upper extremity fistulogram due to prolonged bleeding. Procedure details: The procedure was performed by in the component lab tech. The patient was taken to the component lab tech where informed consent was obtained. The patient [...] performed the procedure with assistance. Viktor Vences [facility] CNCOon 09-12-2024 CNCO Letter Text Normal [facility] L3890.6102on 05-14-2024 HEP B Surf Ag Non-Reactive Normal Nonreactive [facility] Comment on above: Result Comment: Reac tive: Presumptive evidence of HBV. Repeatedly reactive samples must be confirmed using a neutralization test ([employer] HBsAg Confirmatory Test) Non-Reactive: HBsAg not detected; does not exclude the possibility of exposure to HBV Performed By: #### L 3890.6102 ####[facility] [address] [place], [address] CT ABD/PEL WO IVCONon 2024 CT ABD/PEL WO IVCON * * *Final Report* * * DATE OF EXAM: Apr 17 2024 9:16AM [facility] [place] CT ABD/PEL WO IVCON / [...] thorax: Unremarkable. IMPRESSION: No aortobiiliac vascular calcifications. Fur Blower: [facility] Transcribe Date/Time: Apr 17 2024 9:22A Dictated by : SHOAIB MENDOZA MD This examination was interpreted and the report reviewed and electronically signed by: ISABELL ANDERSON MD on Apr 17 2024 9:58AM EST [id number] Normal [facility] CT Abdomen and Pelvis WO con traston 04-17-2024 Radiology Study observation (narrative) [facility] IMPRESSION: No aortobiiliac vascular calcifications. Fur Blower: [facility] Transcribe Date/Time: Apr 17 2024 9:22A Dictated by : SHOAIB MENDOZA MD This examination was interpreted and the report reviewed and electronically signed by: ISABELL ANDERSON MD on Apr 17 2024 9:58AM EST DIVISION OF RADIOLOGY * * *Final Report* * * DATE OF EXAM: Apr 17 2024 9:16AM [facility] - CT ABD/PEL WO IVCON / [...] Lower thorax: Unremarkable. DIVISION OF RADIOLOGY Provider, [facility] Lawson Br[facility] - 04/17/2024 * * *Final Report* * * DATE OF EXAM: Apr 17 2024 9:16AM [facility] - CT ABD/PEL WO IVCON / [...] Unremarkable. IMPRESSION IMPRESSION: No aortobiiliac vascular calcifications. Fur Blower: [facility] Transcribe Date/Time: Apr 17 2024 9:22A Dictated by : SHOAIB MENDOZA MD This examination was interpreted and the report reviewed and electronically signed by: ISABELL ANDERSON MD on Apr 17 2024 9:58AM EST [facility] CT Abdomen and Pelvis WO con trastOrdered By: Ccf Provider on 04-17-[address] [facility] KID K/P PANC REC HLA AB SCRN on 04-17-2024 ALLOGEN RESULTS TO FOLLOW See Allogen report to follow Normal [facility] Comment on above: Order Comment: Speci men Type: BLOOD SPECIMENOrdering Facility: [facility] Address: [address] [place] [address] Performed By: #### K PRHAS ####[facility] [id number] [place] [address] [place] NICOTINE/COTININEon 04-17-19 25 Cotinine [Mass/Vol] <2 Normal <2 [facility] Comment on above: Order Comment: Speci men Type: BLOOD SPECIMENOrdering Facility: [facility] Address: [address] [place] [address] Result Comment: Acti ve tobacco product user: [...] and its performance characteristics determined by the [facility] Department of Pathology and Laboratory Medicine. It has not been cleared or approved by the FDA. The [facility] Department of Pathology and Laboratory Medicine is regulated under CLIA as qualified to perform high-complexity testing. This test is used for clinical purposes. It should not be regarded as investigational or for research. Performed By: #### N ICOT ####[facility] LABCLIA [id number] [place] [address] [place] Nicotine [Mass/Vol] <2 Normal <2 [facility] Comment on above: Order Comment: Speci men Type: BLOOD SPECIMENOrdering Facility: [facility] Address: [address] [place] [address] Performed By: #### N ICOT ####[facility] LABCLIA [id number] [address] STATES OF [facility] CT HEAD WO IV CONTRASTon CT HEAD WO IV CONTRAST Interpreted By: Bert Winkler, STUDY: CT HEAD WO IV CONTRAST; 03/06/2024 4:10 am INDICATION: Signs/Symptoms:HEAD INJURY. COMPARISON: 05/09/2023. ACCESSION NUMBER(S): [id number] ORDERING CLINICIAN: ISAC PADGETT TECHNIQUE: Noncontrast axial [...] Bert Winkler 03/06/2024 4:29 AM Dictation workstation: [id number] [facility] CT Head WO contraston 2023 No evidence of acute intracranial abnormality. MACRO: None Signed by: Bert Winkler 03/06/2024 4:29 AM Dictation workstation: [id number] [facility] Interpreted By: Bert Richardson, STUDY: CT HEAD WO IV CONTRAST; 03/06/2024 4:10 am INDICATION: Signs/Symptoms:HEAD INJURY. COMPARISON: 05/09/2023. ACCESSION NUMBER(S): [id number] ORDERING CLINICIAN: ISAC PADGETT TECHNIQUE: Noncontrast axial [...] INDICATION: Signs/Symptoms:HEAD INJURY. COMPARISON: 05/09/2023. ACCESSION NUMBER(S): [id number] ORDERING CLINICIAN: ISAC PADGETT TECHNIQUE: Noncontrast axial [...] Bert Winkler 03/06/2024 4:29 AM Dictation workstation: [id number] [facility] Work Phone: Radiology Study observation (narrative) [facility] Work Phone: CT Head WO contrastOrdered B y: Bert Winkler on 03-06-2024 [facility] Work Phone: CNCOon 03-05-2024 CNCO Letter Text Normal [facility] BLOOD TB SCREENon 03-04-2024 M. tuberculosis tuberculin stim IFN-g Ql (Bld) Negative Normal [facility] Comment on above: Order Comment: Speci men Type: BLOOD SPECIMENOrdering Facility: [facility] Address: [address] [place] [address] Performed By: #### I NFTBP ####[facility] LABCLIA [id number] [facility] [id number] [place] [address] [place] MITOGEN MINUS NIL >10.00 Normal >=0.50 [facility] Comment on above: Order Comment: Speci men Type: BLOOD SPECIMENOrdering Facility: [facility] Address: [address] [place] [address] Performed By: #### I NFTBP ####[facility] LABCLIA [id number] [place] [address] [place] TB GAMMA INTERPRETATION Infection with M. tuberculosis complex is unlikely. If latent tuberculosis infection is highly suspected, a negative result does not rule out the infection. Specimens from immunocompromised patients and those <5 years of age may show false negative results. In case of a contact investigation, please repeat 8-12 weeks after a known exposure. Normal [facility] Comment on above: Order Comment: Speci men Type: BLOOD SPECIMENOrdering Facility: [facility] Address: [address] [place] [address] Performed By: #### I NFTBP ####[facility] LABCLIA [id number] [place] [address] [place] TB NIL 0.00 IU/mL Normal <=8.00 [facility] Comment on above: Order Comment: Speci men Type: BLOOD SPECIMENOrdering Facility: [facility] Address: [address] [place] [address] Performed By: #### I NFTBP ####[facility] LABCLIA [id number] [place] [address] [place] TB1 AG MINUS NIL 0.04 IU/mL Normal <0.35 [facility] Comment on above: Order Comment: Speci men Type: BLOOD SPECIMENOrdering Facility: [facility] Address: [address] [place] [address] Performed By: #### I NFTBP ####[facility] LABCLIA [id number] [place] [address] [place] TB2 AG MINUS NIL 0.05 IU/mL Normal <0.35 [facility] Comment on above: Order Comment: Speci men Type: BLOOD SPECIMENOrdering Facility: [facility] Address: [address] [place] [address] Performed By: #### I NFTBP ####[facility] LABCLIA [id number] [place] [address] [place] CMV IgG Qnon 03-04-2024 CMV IGG QUAL Negative Normal Negative [facility] Comment on above: Order Comment: Speci men Type: BLOOD SPECIMENOrdering Facility: [facility] Address: [address] [place] [address] Result Comment: No s erological evidence of past exposure to Cytomegalovirus. Cannot exclude recent infection if the specimen collected within 4-6 weeks after infection. Performed By: #### 7 852-7, MEASLG, VZVG2 ####[facility] LABIA [id number] [place] [address] [place] CMV IgG SerPl-aCncon 024 CMV IgG Qn 0.46 U/mL Normal [facility] Comment on above: Order Comment: Speci men Type: BLOOD SPECIMENOrdering Facility: [facility] Address: [address] [place] [address] Result Comment: The magnitude of the measured result is not indicative of the amount of antibody present. U/mL values are interpreted as follows: Negative <0.6 Equivocal 0.6 to <0.70 Positive >=0.70 Performed By: #### 7 852-7, MEASLG, VZVG2 ####[facility] LABIA [id number] [place] [address] [place] CNOVon 03-04-2024 CNOV Office Visit (TXCTGL ) LAWSON DOYLE ([id number]) 2000 M Date Time Provider Department 03/04/24 4:00 PM KIDNEY TXP COORDINATORS TXCTGL During your visit today, we recorded the following information about you: eVlma Kwong RN 03/04/2024 1:40 PM Signed As [...] be need to be completed at a [facility] facility: CARDIAC: ECG - today CANCER SCREENING: CXR PA AND Lat ADDITIONAL CONSULTS Social work clearance after negative cotinine test Imaging Studies: CT of abdomen and pelvis without contrast - this nurse to order Miscellaneous Items: Labs - today Cotinine test - today Influenza vaccine suggested COVID vaccine suggested You are responsible for scheduling your needed testing/consults. Please feel free to call [phone] to arrange. Outside test results should be faxed to [phone]. Please review the kidney transplant educational materials on line at [email or web address] Sign-in: Kidney To check on your status on the wait list, please contact your coordinator, Velma Kwong RN [phone]. You will need to follow up with the transplant team in 1 year for reassessment. Velma Kwong RN Kidney/Pancreas Pre-Consumer Loan Processor [facility] Referring Provider: HUA WHEELER [[id number]] Allergies As of Date: 03/04/2024 (No Known [...] be need to be completed at a [facility] facility: CARDIAC: ECG - today CANCER SCREENING: CXR PA AND Lat ADDITIONAL CONSULTS Social work clearance after negative cotinine test Imaging Studies: CT of abdomen and pelvis without contrast - this nurse to order Miscellaneous Items: Labs - today Cotinine test - today Influenza vaccine suggested COVID vaccine suggested You are responsible for scheduling your needed testing/consults. Please feel free to call [phone] to arrange. Outside test results should be faxed to [phone]. Please review the kidney transplant educational materials on line at [email or web address] Sign-in: Kidney To check on your status on the wait list, please contact your coordinator, Velma Kwong RN [phone]. You will need to follow up with the transplant team in 1 year for reassessment. Velma Kwong RN Kidney/Pancreas Pre-Consumer Loan Processor [facility] Encounter Status:Closed by VELMA KWONG on 03/04/24 Normal [facility] CNOV Office Visit (TXCTGL ) LAWSON DOYLE ([id number]) 2000 M Date Time Provider Department 03/04/24 3:30 PM WAIT LIST TXCTGL During your visit today, we recorded the following information about you: Temperature Pulse Blood pressure Weight 98.6 degrees 94/minute 140/92 83.5 kg Height 1.778 m Hua Wheeler MD 03/04/2024 1:30 PM Signed [facility] KIDNEY AND PANCREAS TRANSPLANT TRANSPLANT RE-EVALUATION Patient is a 24 year old male here for re-evaluation of his Kidney transplant status. Dialysis Start Date: 03/18/2022 Dialysis Type: hemodialysis, M-W-F Dialysis Access: right upper extremity arteriovenous fistula Dialysis Unit: [address] [address] Referring/Local Visual Display Manager: Dr Higuera Last evaluation: 12/21/2022 Listed for [...] Alport's Urine Output: 0.5L daily DM: No DE, CVA, PE/DVT: No Anticoagulation: No Immunosuppression: No [...] in t (more content not included)... Normal [facility] CNOV Office Visit (TXCTGL ) LAWSON DOYLE ([id number]) 2000 M Date Time Provider Department 03/04/24 3:30 PM UROLOGY WAIT LIST TXCTGL During your visit today, we recorded the following information about you: Temperature Pulse Blood pressure Weight 98.6 degrees 94/minute 140/92 83.5 kg Height 1.778 m Ramiro Rico MD 03/04/2024 2:09 PM Signed [facility] KIDNEY AND PANCREAS TRANSPLANT TRANSPLANT RE-EVALUATION Patient is a 24 year old male here for re-evaluation of his Kidney transplant status. Dialysis Start Date: 03/18/2022 Dialysis Type: hemodialysis, M-W-F Dialysis Access: right upper extremity arteriovenous fistula Dialysis Unit: [facility] [address] [place] [id number] Referring/Local Visual Display Manager: Dr Higuera Last evaluation: 12/21/2022 Listed for [...] [place]'s Urine Output: 0.5L daily DM: No DE, CVA, PE/DVT: No Anticoagulation: No Immunosuppression: No [...] nodule, stable (more content not included)... Normal [facility] CNOV Office Visit (TXCTGL ) RUBENS,LAWSON ([id number]) 2000 M Date Time Provider Department 03/04/24 1:30 PM KIDNEY TXP COORDINATORS TXCTGL During your visit today, we recorded the following information about you: Referring Provider: HUA WHEELER [[id number]] Allergies As of Date: 03/04/2024 (No Known [...] Encounter Status:Closed by VELMA KWONG on 03/04/[address] [facility] CNOV Office Visit (TXCTGL ) LAWSON DOYLE ([id number]) 2000 M Date Time Provider Department 03/04/24 [...] results of studies that were obtained outside [facility] facilities. -Explained lifetime immunosuppression therapy and frequency of blood draws/labs post-op and post-op course of treatment. Method of Instruction: Group class instruction Patient/Family Response: Patient asked appropriate questions, which were answered satisfactorily. PAULETTE Nevarez, RN, [facility] Kidney/Pancreas Pre-Consumer Loan Processor Allergies As of Date: 03/04/2024 (No Known [...] Encounter Status:Closed by ELBERT LEE on 03/04/[address] [facility] Isaac 03-04-2024 CNPN Telephone (TXCTGL) LAWSON DOYLE ([id number]) 2000 M Date Time Provider Department 03/04/24 KIDNEY TXP COORDINATORS TXCTGL During your visit today, we recorded the following information about you: Ector Red 03/04/2024 9:23 AM Signed Alice from [facility] X-Ray [facility] called in, she states need active order for Cxr, as the patient has an appointment today. I explained there was one previously in August 2023, linked to this appointment, she states it is not in the active orders, and will need another one filed in [facility] to have completed. Paged nurse coordinators due to urgency and call back number if needed is [phone]. Velma Blanton RN 03/04/2024 10:13 AM Signed New order placed at this time. Allergies As of Date: 03/04/2024 (No Known Allergies) Date Reviewed: 08/06/2023 Reviewed by: Alice York, TASHIA - Fully Assessed Reason for Visit: Chest X-Ray Order Request in [facility] [Other] Prescriptions as of 03/04/2024 - RENAPLEX-D [...] Status:Closed by VELMA KWONG on 03/04/24 [facility] COMPLETEon 03-04-2024 ECG COMPLETE Ventricular Rate : 7 7 BPM Atrial Rate : 77 BPM P-R Interval : 126 ms QRS Duration : 92 ms Q-T Interval : 384 ms QTC Calculation(Bazett) : 434 ms Calculated P [place] : 54 degrees Calculated R [place] : 51 degrees Calculated T [place] : 32 degrees NORMAL SINUS RHYTHM WITH SINUS ARRHYTHMIA NORMAL ECG Confirmed by TONI JAMES M.D. ([id number]) on 03/20/2024 1:29:36 PM NAME : LAWSON DOYLE PID : [id number] : 2000 Gender : Male Race : ORD : [id number] Procedure Date : Mar 04 2024 14:14:42 [...] WHEELER Acquired by : MOISES MARTINI Normal [facility] HBV core Ab Ser Qlon 024 HBV core Ab Ql (S) Negative Normal Negative [facility] Comment on above: Order Comment: Speci men Type: BLOOD SPECIMENOrdering Facility: [facility] Address: [address] [place] [address] Result Comment: No e vidence of current or past infection with Hepatitis B virus. Should recent infection be suspected, repeat testing may be considered 3-4 weeks after this draw. Performed By: #### 3 1201-7, 94102-1, 5195-3, 30969-8 ####[facility] LABCLIA [id number] [place] [address] [place] HBV surface Ab Ql (S)on 02-16 HBV surface Ab Qn (S) >1000.00 Normal [facility] Comment on above: Order Comment: Speci men Type: BLOOD SPECIMENOrdering Facility: [facility] Address: [address] [place] [address] Result Comment: <8 m IU/mL: No serological evidence of immunity to Hepatitis B Virus. >/= 8 to <12 mIU/mL: No serological evidence of immunity to Hepatitis B Virus. >/= 12 mIU/mL: Consistent with serological evidence of immunity to Hepatitis B Virus. Performed By: #### 3 1201-7, 46136-3, 5195-3, 41964-9 ####[facility] LABCLIA [id number] [place] [address] [place] HBV surface Ab Ser Qlon 02-16 HBV surface Ab Ql (S) Positive Normal [facility] Comment on above: Order Comment: Speci gayathri Type: BLOOD SPECIMENOrdering Facility: [facility] Address: [address] [place] [address] Result Comment: Cons istent with serological evidence of immunity to Hepatitis B Virus. Performed By: #### 3 1201-7, 53111-5, 5195-3, 69323-4 ####[facility] LABIA [id number] [place] [address] [place] HBV surface Ag Ser Qlon 02-16 HBV surface Ag Ql (S) Negative Normal Negative [facility] Comment on above: Order Comment: Speci men Type: BLOOD SPECIMENOrdering Facility: [facility] Address: [address] [place] [address] Performed By: #### 3 1201-7, 50818-0, 5195-3, 32789-1 ####[facility] [id number] [place] [address] [place] HCV Ab Ser Qlon 03-04-2024 HCV Ab Ql (S) Negative Normal Negative [facility] Comment on above: Order Comment: Speci men Type: BLOOD SPECIMENOrdering Facility: [facility] Address: [address] [place] [address] Result Comment: The result suggests no evidence of active infection with Hepatitis C virus. Should recent infection be suspected, repeat testing may be considered 4-6 weeks after this draw. Performed By: #### 1 6128-1 ####[facility] LABIA [id number] [place] [address] [place] HCV RNA MIGUEL+probe Qnon 03-04 HCV RNA MIGUEL+probe Ql Not detected Normal Not detected [facility] Comment on above: Order Comment: Speci men Type: BLOOD SPECIMENOrdering Facility: [facility] Address: [address] [place] [address] Performed By: #### 1 1011-4 ####[facility] LABIA [id number] [place] [address] [place] HIV 1+2 Ab IA Qlon HIV 1 and 2 Ab IA.rapid Nom (S/P/Bld) Normal [facility] Comment on above: Order Comment: Speci men Type: BLOOD SPECIMENOrdering Facility: [facility] Address: [address] [place] [address] Result Comment: Test not indicated. Performed By: #### 3 1201-7, 40725-5, 5195-3, 96194-4 ####[facility] LABCLIA [id number] [place] [address] [place] HIV 1+2 Ab+HIV1 p24 Ag IA Ql Non-Reactive Normal Nonreactive [facility] Comment on above: Order Comment: Speci men Type: BLOOD SPECIMENOrdering Facility: [facility] Address: [address] [place] [address] Performed By: #### 3 1201-7, 88446-2, 5-3, 82817-6 ####[facility] LABCLIA [id number] [place] [address] [place] HIV immunoassay testing algorithm interpretation (S/P/Bld) [Interp] Normal [facility] Comment on above: Order Comment: Speci men Type: BLOOD SPECIMENOrdering Facility: [facility] Address: [address] [place] [address] Result Comment: No e vidence of HIV-1 or HIV-2 infection. Should recent infection be suspected, repeat testing may be considered 2-3 weeks after this draw. [place] Rev. Code 3701.243(E): This information has been [...] or diagnoses. Performed By: #### 3 1201-7, 40129-5, 5195-3, 93559-5 ####[facility] LABCLIA [id number] [place] [id number] [place] KID K/P PANC REC HLA AB SCRN on 03-04-2024 ALLOGEN RESULTS TO FOLLOW See Allogen report to follow Normal [facility] Comment on above: Order Comment: Speci men Type: BLOOD SPECIMENOrdering Facility: [facility] Address: [address] [place] [address] Performed By: #### K PRHAS ####[facility]ORATORIESCLIA [id number] [place] [address] [place] RUBEOLA (MEASLES)IGGon 03-04 MEASLES IGG AB, QUAL Positive Normal Positive [facility] Comment on above: Order Comment: Speci men Type: BLOOD SPECIMENOrdering Facility: [facility] Address: [address] [place] [address] Result Comment: The result suggests recent or past exposure to Measles virus or Measles vaccination. The current test does not detect neutralizing antibodies. Positive result may also be seen due to presence of passively-transferred antibodies. Please correlate with patient's history. Performed By: #### 7 852-7, MEASLG, [id number] ####[facility] LABCLIA [id number] [place] [address] [place] Reagin and Treponema pallidu m IgG and IgM [Interp]on 03-04-2024 T. pallidum IgG+IgM IA Ql (S) Non-Reactive Normal Nonreactive [facility] Comment on above: Order Comment: Speci men Type: BLOOD SPECIMENOrdering Facility: [facility] Address: [address] [place] [address] Performed By: #### 7 3752-8 ####[facility] LABCLIA [id number] [place] [address] [place] Reagin+T pallidum IgG+IgM Se rPl-Impon 03-04-2024 Reagin and Treponema pallidum IgG and IgM [Interp] Cannot exclude recent Treponemal infection if specimen collected within 7-10 days after appearance of suspect lesions or 2-3 weeks after an exposure. Clinical correlation is required. Normal [facility] Comment on above: Order Comment: Speci men Type: BLOOD SPECIMENOrdering Facility: [facility] Address: [address] [place] [address] Performed By: #### 7 3752-8 ####[facility] LABCLIA [id number] [place] [address] [place] VARICELLA ZOSTER IGGon 03-04 VARICELLA ZOSTER IGG, QUAL Positive Normal Positive [facility] Comment on above: Order Comment: Speci men Type: BLOOD SPECIMENOrdering Facility: [facility] Address: [address] [place] [address] Result Comment: The result suggests recent or past exposure to Varicella-Zoster virus or chickenpox vaccination or zoster vaccination. Positive result may also be seen due to presence of passively-transferred antibodies. Please correlate with patient's history. Performed By: #### 7 852-7, MEASLG, VZVG2 ####[facility] LABCLIA [id number] [place] [address] [place] XR CHEST 2V [...] IMPRESSION: Please see body of the report. Fur Blower: MARY Transcribe Date/Time: Mar 04 2024 2:25P Dictated by : TORRES VALDEZ MD This examination was interpreted and the report reviewed and electronically signed by: TORRES VALDEZ MD on Mar 04 2024 2:26PM EST [id number] Normal [facility] XR Chest PA and Lateralon Radiology Study observation (narrative) [facility] IMPRESSION: Please see body of the report. Fur Blower: MARY Transcribe Date/Time: Mar 04 2024 2:25P [...] heights are maintained. DIVISION OF RADIOLOGY Provider, [facility] - 03/04/2024 * * *Final Report* * [...] IMPRESSION: Please see body of the report. Fur Blower: MARY Transcribe Date/Time: Mar 04 2024 2:25P Dictated by : TORRES VALDEZ MD This examination was interpreted and the report reviewed and electronically signed by: TORRES VALDEZ MD on Mar 04 2024 2:26PM EST [facility] XR Chest PA and LateralOrder ed By: Ccf Provider on 03-04-[address] [facility] CNPNon 02-28-2024 CNPN Telephone (TXCTGL) LAWSON DOYLE ([id number]) 2000 M Date Time Provider Department 02/28/24 [...] Status:Closed by ECTOR RED on 02/28/24 Normal [facility] Basic Metabolic Profile (BMP )on 02-11-2024 BUN/CRE 4.7 RATIO Low 10-20 [facility] Comment on above: Performed By: #### L 100.0100, L500.2500 #### [facility] [address] [place], [address] CA,Total 9.2 mg/dL Normal 8.5-10.1 [facility] Comment on above: Performed By: #### L 100.0100, L500.2500 #### [facility] [address] [place], [address] Chloride [Moles/Vol] 100 mmol/L Normal 98-107 [facility] Comment on above: Performed By: #### L 100.0100, L500.2500 #### [facility] [address] [place], [address] CO2 [Moles/Vol] 32.0 mmol/L Normal 21.0-32.0 [facility] Comment on above: Performed By: #### L 100.0100, L500.2500 #### [facility] [address] [place], [address] Creatinine [Mass/Vol] 7.58 mg/dL Invalid Interpretation Code 0.70-1.30 [facility] Comment on above: Result Comment: Crit ical Result(s) Called at: 01:16:02 02/11/2024 by: Driss Larson. ÁNGEL BARBOUR RN ED. Results read back by same. The validity of the calculated GFR GFRAA in patients over 70 years has not been determined. Clinical correlation is essential. Performed By: #### L 100.0100, L500.2500 #### [facility] [address] [place], [address] ECRCL 15.52 ml/min Normal [facility] Comment on above: Performed By: #### L 100.0100, L500.2500 #### [facility] [address] [place], [address] EST GFR - AA 11 mL/min Low >60 [facility] Comment on above: Result Comment: Afri can Citizen [place] GFR Calc Performed By: #### L 100.0100, L500.2500 #### [facility] [address] [place], [address] GAP 9 Normal 5-15 [facility] Comment on above: Performed By: #### L 100.0100, L500.2500 #### [facility] [address] [place], [address] GFR/1.73 sq M.predicted among non-blacks MDRD (S/P/Bld) [Vol rate/Area] 9 mL/min/{1.73_m2} Low >60 [facility] Comment on above: Result Comment: Non- GFR Calc Performed By: #### L 100.0100, L500.2500 #### [facility] [address] [place], [address] Glucose [Mass/Vol] 144 mg/dL High 74-106 [facility] Comment on above: Result Comment: Fast ing Glucose result greater than or equal to 126 mg/dL suggests DIABETES MELLITUS per A.D.A. criteria. Performed By: #### L 100.0100, L500.2500 #### [facility] [address] [place], [address] Potassium [Moles/Vol] 4.5 mmol/L Normal 3.5-5.1 [facility] Comment on above: Performed By: #### L 100.0100, L500.2500 #### [facility] [address] [place], [address] Sodium [Moles/Vol] 142 mmol/L Normal 136-145 [facility] Comment on above: Performed By: #### L 100.0100, L500.2500 #### [facility] [address] [place], [address] Urea nitrogen [Mass/Vol] 36 mg/dL High 7-18 [facility] Comment on above: Performed By: #### L 100.0100, L500.2500 #### [facility] [address] [place], [address] CBC W/Diff, Automatedon 11-2 Absolute Lymph 2.22 X10 3/uL Normal 0.83-4.51 [facility] Comment on above: Performed By: #### L 100.0100, L500.2500 #### [facility] [address] [place], [address] Absolute Neut 5.1 X10 3/uL Normal 2.0-7.7 [facility] Comment on above: Performed By: #### L 100.0100, L500.2500 #### [facility] [address] [place], [address] Basophils/100 WBC (Bld) 0.2 % Normal 0-1 [facility] Comment on above: Performed By: #### L 100.0100, L500.2500 #### [facility] [address] [place], [address] Eosinophils/100 WBC (Bld) 14.6 % High 0-5 [facility] Comment on above: Performed By: #### L 100.0100, L500.2500 #### [facility] [address] [place], [address] Erythrocyte distribution width (RBC) [Ratio] 13.9 % Normal 11.6-14.6 [facility] Comment on above: Performed By: #### L 100.0100, L500.2500 #### [facility] [address] [place], [address] Hematocrit (Bld) [Volume fraction] 36.3 % Low 40-54 [facility] Comment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 equation without the race variable for the IDMS-Traceable creatinine methods. https://jasn.asnjournals.org/content//ASN.811393 0611 Glucose [Mass/Vol] 98 mg/dL 74 - 99 mg/dL [facility] Interpretation and review of laboratory results Abnormal [facility] Potassium [Moles/Vol] 4.3 mmol/L 3.5 - 5.3 mmol/L [facility] Protein [Mass/Vol] 6.3 g/dL Low 6.4 - 8.2 g/dL [facility] Sodium [Moles/Vol] 142 mmol/L 136 - 145 mmol/L [facility] Urea nitrogen [Mass/Vol] 32 mg/dL High 6 - 23 mg/dL [facility] Lactateon 01-27-2023 Lactate [Moles/Vol] 0.7 mmol/L 0.4 - 2. 0 mmol/L [facility] Lactate [Moles/Vol]on 2022 Interpretation and review of laboratory results Normal [facility] Venipuncture immediately after or during the administration of Metamizole may lead to falsely low results. Testing should be performed immediately prior to Metamizole dosing. [facility] Natriuretic peptide B [Mass/ Vol]on 01-27-2023 Interpretation and review of laboratory results Normal [facility] Natriuretic peptide B (Bld) [Mass/Vol] 78 pg/mL 0 - 99 pg/mL [facility] <100 pg/mL - Heart failure unlikely 100-299 pg/mL - Intermediate probability of acute heart failure exacerbation. Correlate with clinical context and patient history. >=300 pg/mL - Heart Failure likely. Correlate with clinical context and patient history. BNP testing is performed using different testing methodology at [facility] than at other [facility]. Direct result comparisons should only be made within the same method. [facility] Tropinin I.cardiac panel Hig h sensitivity methodon 01-27-2023 Interpretation and review of laboratory results Normal [facility] Less than 99th percentile of normal [...] performed using a different testing methodology at [facility] than at other [facility]. Direct result comparisons should only be made within the same method. [facility] Troponin I, High Sensitivity , Initialon 01-27-2023 Tropinin I.cardiac panel High sensitivity method 5 ng/L 0 - 20 ng/L [facility] XR Chest Single viewon 01-27 No acute process. Signed by Kirsty Oliveira MD TELERADIOLOGY STUDY: Chest Radiograph; [01-27-2023; 9:48 am] INDICATION: Shortness of breath. COMPARISON: XR chest 01-24-2023 ACCESSION NUMBER(S): [id number] ORDERING CLINICIAN: MEKHI WEEMS TECHNIQUE: Frontal chest was obtained at 09:34 hours. FINDINGS: CARDIOMEDIASTINAL SILHOUETTE: Cardiomediastinal silhouette is normal in size and configuration. LUNGS: Lungs are clear. ABDOMEN: No remarkable upper abdominal findings. BONES: No acute osseous changes. TELERADIOLOGY Kirsty Oliveira MD - 01/27/2023 STUDY: Chest Radiograph; [01-27-2023; 9:48 am] INDICATION: Shortness of breath. COMPARISON: XR chest 01-24-2023 ACCESSION NUMBER(S): [id number] ORDERING CLINICIAN: MEKHI WEEMS TECHNIQUE: Frontal chest was obtained at 09:34 hours. FINDINGS: CARDIOMEDIASTINAL SILHOUETTE: Cardiomediastinal silhouette is normal in size and configuration. LUNGS: Lungs are clear. ABDOMEN: No remarkable upper abdominal findings. BONES: No acute osseous changes. IMPRESSION: No acute process. Signed by Kirsty Oliveira MD [facility] Work Phone: Radiology Study observation (narrative) [facility] Work Phone: XR Chest Single viewOrdered By: Kirsty Oliveira on 01-27-2023 [facility] Work Phone: ALGN RABBIT EPITHELIUM IGEon 01-17-2023 RABBIT EPITHELIUM CLASS Class 0 Normal Class 0 [facility] Comment on above: Order Comment: Speci men Type: BLOOD SPECIMEN Ordering Facility: [facility] Address: [address] [place] [address] Performed By: #### R ABEPI #### [facility] CLIA [id number] [address] [place] [address] [place] RABBIT EPITHELIUM IGE <0.35 Normal <0.35 [facility] Comment on above: Order Comment: Speci gayathri Type: BLOOD SPECIMEN Ordering Facility: [facility] Address: [address] [place] [address] Performed By: #### R ABEPI #### [facility] CLIA [id number] [address] [place] [address] [place] Basic metabolic 2000 panelon 01-17-2023 Anion gap [Moles/Vol] 14 mmol/L Normal 9-18 [facility] Comment on above: Order Comment: Speci men Type: BLOOD SPECIMEN Ordering Facility: [facility] Address: [address] [place] [address] Performed By: #### 2 4321-2 #### [facility] CLIA [id number] [address] [place] [address] [place] Calcium [Mass/Vol] 8.6 mg/dL Normal 8.5-10.2 [facility] Comment on above: Order Comment: Speci men Type: BLOOD SPECIMEN Ordering Facility: [facility] Address: [address] [place] [address] Performed By: #### 2 4321-2 #### [facility] CLIA [id number] [address] [place] [address] [place] Chloride [Moles/Vol] 101 mmol/L Normal 97-105 [facility] Comment on above: Order Comment: Speci men Type: BLOOD SPECIMEN Ordering Facility: [facility] Address: [address] [place] [address] Performed By: #### 2 4321-2 #### [facility] CLIA [id number] [address] [place] [address] [place] CO2 [Moles/Vol] 24 mmol/L Normal 22-30 [facility] Comment on above: Order Comment: Speci men Type: BLOOD SPECIMEN Ordering Facility: [facility] Address: [address] [place] [address] Performed By: #### 2 4321-2 #### [facility] CLIA [id number] [address] [place] [address] [place] Creatinine [Mass/Vol] 10.12 mg/dL High 0.73-1.22 [facility] Comment on above: Order Comment: Speci men Type: BLOOD SPECIMEN Ordering Facility: [facility] Address: [address] [place] [address] Performed By: #### 2 4321-2 #### [facility] CLIA [id number] [address] [place] [address] [place] Creatinine and Glomerular filtration rate.predicted panel (S/P/Bld) 7 mL/min/1.73m??? Low >=60 [facility] Comment on above: Order Comment: Speci men Type: BLOOD SPECIMEN Ordering Facility: [facility] Address: [address] [place] [address] Result Comment: Gentry mated Glomerular Filtration Rate [...] #### 2 4321-2 #### [facility] CLIA [id number] [address] [place] [address] [place] Glucose [Mass/Vol] 92 mg/dL Normal 74-99 [facility] Comment on above: Order Comment: Ez trinh Type: BLOOD SPECIMEN Ordering Facility: [facility] Address: [address] [place] [address] Result Comment: [place] Diabetes Association (ADA) provides guidance for cutoff [...] Standards of Medical Care in Diabetes 2016, [place] Diabetes Association. Diabetes Care. 2016.39(Suppl 1). Performed By: #### 2 4321-2 #### [facility] CLIA [id number] [address] [place] [address] [place] Potassium [Moles/Vol] 5.5 mmol/L High 3.7-5.1 [facility] Comment on above: Order Comment: Ez trinh Type: BLOOD SPECIMEN Ordering Facility: [facility] Address: [address] [place] [address] Performed By: #### 2 4321-2 #### [facility] CLIA [id number] [address] [place] [address] [place] Sodium [Moles/Vol] 139 mmol/L Normal 136-144 [facility] Comment on above: Order Comment: Ez trinh Type: BLOOD SPECIMEN Ordering Facility: [facility] Address: [address] [place] [address] Performed By: #### 2 4321-2 #### [facility] CLIA [id number] [address] [place] [id number] [place] Urea nitrogen [Mass/Vol] 53 mg/dL High 9- [facility] Comment on above: Order Comment: Speci men Type: BLOOD SPECIMEN Ordering Facility: [facility] Address: [address] [address] Performed By: #### 2 4321-2 #### [facility] CLIA [id number] [address] [place] [id number] [place] ECHOon 01-17-2023 Echocardiography Echocardiography Report: Transthoracic Echo [facility] Date of service: 01/17/2023 10:11:50 AM Ordering [...] * * * Final * * * [facility] [employer] [facility] : [id number] [id number] Normal [facility] EKGon 01-17-2023 Electrocardiogram Ventricular Rate : 5 9 BPM Atrial Rate : 59 BPM P-R Interval : 129 ms QRS Duration : 85 ms Q-T Interval : 408 ms QTC Calculation(Bazett) : 405 ms Calculated P [place] : 49 degrees Calculated R [place] : 56 degrees Calculated T [place] : [address] elev, probable normal early repol pattern Normal ECG Confirmed by LINDA JASSO MD ([id number]) on 02/08/2023 8:34:27 PM NAME : LAWSON DOYLE PID : [id number] : 2000 Gender : Male Race : ORD : Procedure Date : Jan 17 2023 07:02:09 Edit Date : Feb 08 2023 20:34:30 Diagnosis: Sinus rhythm ST elev, probable normal early repol pattern Normal ECG Confirmed by LINDA JASSO MD ([id number]) on 02/08/2023 8:34:27 PM Test Reason : Location : 400 : [facility] 15 Overread By : LINDA JASSO MD Edited By : LINDA JASSO MD Referred By : , Acquired by : Sushma SOLORZANO [facility] HISTORY PHYSICALon HISTORY PHYSICAL HNO ID: [id number] Author: Ankush Perez PA-C Service: Cardiovascular Disease Author Type: Physician Molder Machine Tender Type: HANDP Filed: 01/17/2023 7:14 AM Note [...] bruits History of TIA: No History of DE: No Diabetes: No History of Bleeding Issues: [...] which included preparing to see the patient, hyci-os-qadk patient care, completing clinical documentation, obtaining and/or reviewing separately obtained history, performing a medically appropriate examination, and ordering medications, tests, or procedures. SIGNATURE: Ankush Perez PA-C PATIENT NAME: Lawson Doyle DATE: January 17, 2023 TIME: 6:58 AM PAGER: [facility] NURSING PROGon 01-17-2023 NURSING PROG HNO ID: [id number] Author: Paul Peterson RN Service: Nursing Author Type: Registered Nurse Type: Nursing Progress Note Filed: 01/17/2023 10:56 AM Note Text: Nursing Progress Note Topic of Note: Daily Note PATIENT NAME: Lawson Doyle Patient Location: DIRECTOR MUSEUM OR ZOO POOL/ DIRECTOR MUSEUM OR ZOO POOL Room: DIRECTOR MUSEUM OR ZOO POOL ( INVASIVE CARDIOLOGY) Post fistula thromectomy. VSS. Pt awake alert oriented. Dr. Gonzalez at bedside. VSS. Taking po diet. Right arm fistula dressing dry intact, + thrill. 1000: too0k po diet. Discharge meds and f/u given to pt and father. Yrbg6ue understanding of meds diet and activity. Echo [...] This note was completed by: Paul Peterson [facility] OPERATIVE NOon 01-17-2023 OPERATIVE NO HNO ID: [id number] Author: Dave Nascimento MD Service: Vascular Surgery Author Type: Physician Type: Operative Report Filed: 01/17/2023 9:16 AM Note Text: OPERATIVE/PROCEDURE REPORT LOG ID: [id number] Surgery/Procedure Date: 01/17/2023 Incision/Procedure Start Time: 829 Incision Close/Procedure End Time: 912 Surgeon(s)/Proceduralis t(s) and Molder Machine Tender(s): Surgeon(s) and Role: * Dave Nascimento MD [...] with a 6 x 20 cutting balloon ([email or web address]) with this yielded a good technical result.. It was then treated with a 6x40 [place] drug coated balloon. Completion angiogram revealed a [...] Complications: None No qualified resident/fellow was available. [facility] BRIEF OP NOTon 01-04-2023 BRIEF OP NOT HNO ID: [id number] Author: Yannick Bruno MD Service: Vascular Surgery Author Type: Resident Type: Brief Op Note Filed: 01/04/2023 11:09 AM Note Text: BRIEF OPERATIVE / PROCEDURE NOTE LOG ID: [id number] Surgery/Procedure Date: 01/04/2023 Incision/Procedure Start Time: 10:33 AM Incision Close/Procedure End Time: 1059 Surgeon(s)/Proceduralis t(s) and Molder Machine Tender(s): Surgeon(s) and Role: * Don Patel MD - Primary * Yannick Bruno MD - Resident - Assisting No Additional Staff Procedure(s): PERC THROMBECTOMY/INFUSION FOR THROMBOLYSIS AV FISTULA,FLUORO GUIDED,INCLUSIVE OF RAD NESHA: 47406 (CPT?) 1) 6x20mm cutting balloon 2) 8x40mm absolute pro self expanding stent 3) 8x40 auto porter CURLY Angio: Access: 7Fr Closure: pressure Contrast: 20 cc Fluorotime: 1.9 min, 9.68 mGy Anesthesia: Procedural Sedation ASA Class: ASA Class:: III Findings: 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, treated with 6x20mm cutting balloon, 8x40mm stent placement and post dilated with 8x40mm auto porter Pulses: RUE: Palpable +2 radial Medications: No [...] 04, 2023 TIME: 11:05 AM PAGER/CONTACT #: [facility] Basic metabolic 2000 panelon 01-04-2023 Anion gap [Moles/Vol] 12 mmol/L Normal 9-18 [facility] Comment on above: Order Comment: Speci men Type: BLOOD SPECIMENOrdering Facility: [facility] Address: [address] [place] [address] Performed By: #### 2 4321-2 ####[facility] [id number] [place] [id number] [place] Calcium [Mass/Vol] 9.5 mg/dL Normal 8.5-10.2 [facility] Comment on above: Order Comment: Speci men Type: BLOOD SPECIMENOrdering Facility: [facility] Address: [address] [place] [address] Performed By: #### 2 4321-2 ####[facility] [id number] [place] [id number] [place] Chloride [Moles/Vol] 94 mmol/L Low 97-105 [facility] Comment on above: Order Comment: Speci men Type: BLOOD SPECIMENOrdering Facility: [facility] Address: [address] [place] [address] Performed By: #### 2 4321-2 ####[facility]ORYCLIA [id number] [place] [id number] [place] CO2 [Moles/Vol] 33 mmol/L High 22-30 [facility] Comment on above: Order Comment: Speci men Type: BLOOD SPECIMENOrdering Facility: [facility] Address: [address] [place] [address] Performed By: #### 2 4321-2 ####[facility]ORYCLIA [id number] [place] [id number] [place] Creatinine [Mass/Vol] 6.57 mg/dL High 0.73-1.22 [facility] Comment on above: Order Comment: Speci men Type: BLOOD SPECIMENOrdering Facility: [facility] Address: [address] [place] [address] Performed By: #### 2 4321-2 ####[facility]ORYCLIA [id number] [place] [id number] [place] Creatinine and Glomerular filtration rate.predicted panel (S/P/Bld) 11 mL/min/1.73m??? Low >=60 [facility] Comment on above: Order Comment: Ez trinh Type: BLOOD SPECIMENOrdering Facility: [facility] Address: [place] [address] Result Comment: Gentry mated Glomerular Filtration Rate [...] actual GFR. Performed By: #### 2 4321-2 ####[facility] [id number] [place] [address] [place] Glucose [Mass/Vol] 94 mg/dL Normal 74-99 [facility] Comment on above: Order Comment: Ez trinh Type: BLOOD SPECIMENOrdering Facility: [facility] Address: [place] [address] Result Comment: [place] Diabetes Association (ADA) provides guidance for cutoff [...] Standards of Medical Care in Diabetes 2016, [place] Diabetes Association. Diabetes Care. 2016.39(Suppl 1). Performed By: #### 2 4321-2 ####[facility] [id number] [place] [id number] [place] Potassium [Moles/Vol] 4.3 mmol/L Normal 3.7-5.1 [facility] Comment on above: Order Comment: Ez trinh Type: BLOOD SPECIMENOrdering Facility: [facility] Address: [place] [address] Performed By: #### 2 4321-2 ####[facility] [id number] [place] [id number] [place] Sodium [Moles/Vol] 139 mmol/L Normal 136-144 [facility] Comment on above: Order Comment: Speci men Type: BLOOD SPECIMENOrdering Facility: [facility] Address: [address] [place] [address] Performed By: #### 2 4321-2 ####[facility] [id number] [place] [id number] [place] Urea nitrogen [Mass/Vol] 24 mg/dL Normal 9-24 [facility] Comment on above: Order Comment: Speci men Type: BLOOD SPECIMENOrdering Facility: [facility] Address: [address] [place] [address] Performed By: #### 2 4321-2 ####[facility] [id number] [address] OF [facility] ECG COMPLETEon 01-04-2023 ECG COMPLETE Ventricular Rate : 7 1 BPM Atrial Rate : 69 BPM P-R Interval : 125 ms QRS Duration : 89 ms Q-T Interval : 385 ms QTC Calculation(Bazett) : 419 ms Calculated P [place] : 62 degrees Calculated R [place] : 62 degrees Calculated T [place] : 33 degrees Sinus rhythm Normal ECG Confirmed by ANGELO CHEUNG MD ([id number]) on 01/13/2023 2:26:53 PM NAME : LAWSON DOYLE PID : [id number] : 2000 Gender : Male Race : ORD : [id number] Procedure Date : Jan 04 2023 08:18:38 Edit Date : Jan 13 2023 14:26:58 Diagnosis: Sinus rhythm Normal ECG Confirmed by ANGELO CHEUNG MD ([id number]) on 01/13/2023 2:26:53 PM Test Reason : Pre OP Location : 400 : EKG 15 Overread By : ANGELO CHEUNG MD Edited By : ANGELO CHEUNG MD Referred By : , Acquired by : , Normal [facility] HISTORY PHYSICALon HISTORY PHYSICAL HNO ID: [id number] Author: Tatum Chowdhury APRN.PROTEIN PURIFICATION SCIENTIST, DNP Service: Cardiovascular Medicine Author Type: Nurse [...] Palpable History of TIA: No History of DE: No Diabetes: No History of Bleeding Issues: [...] which included preparing to see the patient, smkj-mp-rcon patient care, completing clinical documentation, obtaining and/or reviewing separately obtained history, performing a medically appropriate examination, counseling and educating the patient/family/caregive r, and ordering medications, tests, or procedures. SIGNATURE: Tatum Chowdhury APRN.SARA, PAPO PATIENT NAME: Lawson Doyle DATE: January 04, 2023 TIME: 8:19 AM PAGER: [facility] NURSING PROGon 01-04-2023 NURSING PROG HNO ID: [id number] Author: Ed Jade RN Service: Nursing Author [...] [id number] Discharged home with friend via wheelchair. [facility] OPERATIVE NOon 01-04-2023 OPERATIVE NO HNO ID: [id number] Author: Don Patel MD Service: Vascular Surgery Author Type: Physician Type: Operative Report Filed: 01/22/2023 11:17 AM Note Text: OPERATIVE/PROCEDURE REPORT LOG ID: [id number] Surgery/Procedure Date: 01/04/2023 Incision/Procedure Start Time:10:33 AM Incision Close/Procedure End Time: Surgeon(s)/Proceduralis t(s) and Molder Machine Tender(s): Surgeon(s) and Role: * Don Patel MD [...] details: The patient was taken to the component lab tech and laid supine on the table. After [...] The sheath was up-sized to a 7 serbian sheath. The stenosis was ballooned with a/an [...] DATE: 01/04/2023 TIME: 11:15 AM PAGER/CONTACT #: [id number] [facility] BLOOD TB SCREENon 12-22-2022 M. tuberculosis tuberculin stim IFN-g Ql (Bld) Negative [facility] Mitogen minus Nil >=0.50 IU/mL [facility] TB Gamma Interpretation Infection with M. tuberculosis complex is unlikely. If latent tuberculosis infection is highly suspected, a negative result does not rule out the infection. Specimens from immunocompromised patients and those <5 years of age may show false negative results. In case of a contact investigation, please repeat 8-12 weeks after a known exposure. [facility] TB Nil 0.02 IU/mL <=8.00 IU/mL [facility] TB1 Ag minus Nil 0.10 IU/mL <0.35 IU/mL [facility] TB2 Ag minus Nil 0.11 IU/mL <0.35 IU/mL [facility] ACTIVATED PTTon 12-21-2022 aPTT Coag (PPP) [Time] 27.5 s 23.0 - 32.[address] [facility] CBC panel Auto (Bld)on 12-21 Erythrocyte distribution width (RBC) [Ratio] 13.1 % 11.5 - 15.0 % [facility] Hematocrit (Bld) [Volume fraction] 35.2 % Low 39.0 - 51.0 % [facility] Hemoglobin (Bld) [Mass/Vol] 11.7 g/dL Low 13.0 - 17.0 g/dL [facility] MCH (RBC) [Entitic mass] 32.2 pg 26.0 - 34.[address] [facility] MCHC (RBC) [Mass/Vol] 33.2 g/dL 30.5 - 36.0 g/dL [facility] MCV (RBC) [Entitic vol] 97.0 fL 80.0 - 100.[address] [facility] Nucleated RBC (Bld) [#/Vol] <0.01 k/uL [facility] Platelet mean volume (Bld) [Entitic vol] 9.9 fL 9.0 - 12.[address] [facility] Platelets (Bld) [#/Vol] 285 10*3/uL 150 - 400 k/uL [facility] RBC (Bld) [#/Vol] 3.63 10*6/uL Low 4.20 - 6.0 0 m/uL [facility] WBC (Bld) [#/Vol] 9.34 10*3/uL 3.70 - 11. 00 k/uL [facility] CMV IGG ANTIBODY BLon 2022 CMV IgG Qn 0.28 U/mL [facility] CMV IgG Qnon 12-21-2022 CMV IgG Qualitative Negative Negative [facility] Comprehensive metabolic 2000 panelon 12-21-2022 Albumin [Mass/Vol] 4.8 g/dL 3.9 - 4.9 g/dL [facility] ALP [Catalytic activity/Vol] 86 U/L 38 - 113 U/L [facility] ALT [Catalytic activity/Vol] 15 U/L 10 - 54 U/L [facility] Anion gap [Moles/Vol] 14 mmol/L 9 - 18 mmol/L [facility] AST [Catalytic activity/Vol] 9 U/L Low 14 - 40 U/L [facility] Bilirubin [Mass/Vol] 0.5 mg/dL 0.2 - 1 .3 mg/dL [facility] [facility] Calcium [Mass/Vol] 9.5 mg/dL 8.5 - 10. 2 mg/dL [facility] Chloride [Moles/Vol] 94 mmol/L Low 97 - 10 5 mmol/L [facility] CO2 [Moles/Vol] 31 mmol/L High 22 - 30 mmol/L [facility] Creatinine [Mass/Vol] 8.39 mg/dL High 0.73 - 1.22 mg/dL [facility] Estimated Glomerular Filtration Rate 8 mL/min/1.73m Low >=60 mL/min/1.73m [facility] Glucose [Mass/Vol] 94 mg/dL 74 - 99 mg/dL [facility] Potassium [Moles/Vol] 4.5 mmol/L 3.7 - 5.1 mmol/L [facility] Protein [Mass/Vol] 7.3 g/dL 6.3 - 8.0 g/dL [facility] Sodium [Moles/Vol] 139 mmol/L 136 - 144 mmol/L [facility] Urea nitrogen [Mass/Vol] 31 mg/dL High 9 - 24 mg/dL [facility] EBV capsid IgG Qn (S)on EBV VCA IgG, Qual Positive Abnormal Negative [facility] HCV QUANT RNA BY PCRon 12-21 HCV RNA MIGUEL+probe Qn Not detected HCV RNA not detected by PCR. [facility] HIV 1+2 Ab IA Qlon 3 HIV 1 and 2 Ab IA.rapid Nom [facility] HIV 1+2 Ab+HIV1 p24 Ag IA Ql Non-Reactive Nonreactive [facility] HIV immunoassay testing algorithm interpretation (S/P/Bld) [Interp] [facility] Laboratory - Blood bankon ABO group Nom (Bld) A [facility] Rh Nom (Bld) Positive [facility] No Panel Informationon 12-[address] [facility] PHOSPHORUS INORGANICon 12-21 Phosphate [Mass/Vol] 6.9 mg/dL High 2.7 - 4 .8 mg/dL [facility] PT panel Coag (PPP)on 2022 INR Coag (PPP) [Relative time] 1.0 {INR} 0.9 - 1.[address] [facility] PT Coag (PPP) [Time] 10.4 s 9.7 - 1 3.[address] [facility] PTH INTACT BLDon 12-21-2022 Parathyrin.intact [Mass/Vol] 479 pg/mL High 15 - 65 pg/mL [facility] RUBEOLA (MEASLES)IGGon 12-21 Measles Antibody, IGG Qualitative Equivocal Abnormal Positive [facility] Reagin and Treponema pallidu m IgG and IgM [Interp]on 12-21-2022 T. pallidum IgG+IgM IA Ql (S) Non-Reactive Nonreactive [facility] SYPHILIS TOTAL W/REFLEXon Reagin and Treponema pallidum IgG and IgM [Interp] Cannot exclude recent Treponemal infection if specimen collected within 7-10 days after appearance of suspect lesions or 2-3 weeks after an exposure. Clinical correlation is required. [facility] TYPE + SCREENon 12-21-2022 Blood group antibody screen Ql Negative [facility] HIstorical Ab Scr Status Negative [facility] Type and Screen Expiration 12/24/2022 23:[address] [facility] VARICELLA ZOSTER IGGon 12-21 Varicella Zoster IgG, Qual Negative Abnormal Positive [facility] BRIEF OP NOTon 10-31-2022 BRIEF OP NOT HNO ID: [id number] Author: Ameya Cueto MD Service: Vascular Surgery Author Type: Resident Type: Brief Op Note Filed: 10/31/2022 3:38 PM Note Text: BRIEF OPERATIVE / PROCEDURE NOTE LOG ID: [id number] Surgery/Procedure Date: 10/31/2022 Incision/Procedure Start Time: 2:26 PM Incision Close/Procedure End Time: 2:49 PM Surgeon(s)/Proceduralis t(s) and Molder Machine Tender(s): Surgeon(s) and Role: * Don Patel MD [...] October 31, 2022 TIME: 3:36 PM Normal [facility] Basic metabolic 2000 panelon 10-31-2022 Anion gap [Moles/Vol] 11 mmol/L Normal 9-18 [facility] Comment on above: Order Comment: Speci men Type: BLOOD SPECIMENOrdering Facility: [facility] Address: [address] [address] Performed By: #### 2 4321-2 ####[facility] [id number] [place] [address] [place] Calcium [Mass/Vol] 9.5 mg/dL Normal 8.5-10.2 [facility] Comment on above: Order Comment: Speci men Type: BLOOD SPECIMENOrdering Facility: [facility] Address: [address] [address] Performed By: #### 2 4321-2 ####[facility]OR[facility]ORYCLIA [id number] [place] [id number] [place] Chloride [Moles/Vol] 102 mmol/L Normal 97-105 [facility] Comment on above: Order Comment: Speci men Type: BLOOD SPECIMENOrdering Facility: [facility] Address: [address] [address] Performed By: #### 2 4321-2 ####[facility]ORATORYCLIA [id number] [place] [id number] [place] CO2 [Moles/Vol] 27 mmol/L Normal 22-30 [facility] Comment on above: Order Comment: Speci men Type: BLOOD SPECIMENOrdering Facility: [facility] Address: [address] [address] Performed By: #### 2 4321-2 ####[facility]ORATORYCLIA [id number] [place] [address] [place] Creatinine [Mass/Vol] 8.93 mg/dL High 0.73-1.22 [facility] Comment on above: Order Comment: Speci men Type: BLOOD SPECIMENOrdering Facility: [facility] Address: [address] [address] Performed By: #### 2 4321-2 ####[facility]ORATORYCLIA [id number] [address] [place] ESTIMATED GLOMERULAR FILTRATION RATE 8 mL/min/1.73m??? Low >=60 [facility] Comment on above: Order Comment: Speci men Type: BLOOD SPECIMENOrdering Facility: [facility] Address: [address] [place] [address] Result Comment: Gentry mated Glomerular Filtration Rate [...] actual GFR. Performed By: #### 2 4321-2 ####[facility]ORATORYCLIA [id number] [place] [address] [place] Glucose [Mass/Vol] 85 mg/dL Normal 74-99 [facility] Comment on above: Order Comment: Speci men Type: BLOOD SPECIMENOrdering Facility: [facility] Address: [address] [place] [address] Result Comment: [place] Diabetes Association (ADA) provides guidance for cutoff [...] Standards of Medical Care in Diabetes 2016, [place] Diabetes Association. Diabetes Care. 2016.39(Suppl 1). Performed By: #### 2 4321-2 ####[facility]ORATORYCLIA [id number] [place] [address] [place] Potassium [Moles/Vol] 5.0 mmol/L Normal 3.7-5.1 [facility] Comment on above: Order Comment: Speci men Type: BLOOD SPECIMENOrdering Facility: [facility] Address: [address] [address] Performed By: #### 2 4321-2 ####[facility]ORATORYCLIA [id number] [place] [address] [place] Sodium [Moles/Vol] 140 mmol/L Normal 136-144 [facility] Comment on above: Order Comment: Speci men Type: BLOOD SPECIMENOrdering Facility: [facility] Address: [address] [address] Performed By: #### 2 4321-2 ####[facility]ATORYCLIA [id number] [place] [address] [place] Urea nitrogen [Mass/Vol] 52 mg/dL High 9-24 [facility] Comment on above: Order Comment: Speci men Type: BLOOD SPECIMENOrdering Facility: [facility] Address: [address] [address] Performed By: #### 2 4321-2 ####[facility]ORATORYCLIA [id number] [place] [id number] [place] ECG COMPLETEon 10-31-2022 ECG COMPLETE Ventricular Rate : 8 1 BPM Atrial Rate : 82 BPM P-R Interval : 139 ms QRS Duration : 85 ms Q-T Interval : 362 ms QTC Calculation(Bazett) : 421 ms Calculated P [place] : 55 degrees Calculated R [place] : 50 degrees Calculated T [place] : 20 degrees Sinus rhythm Normal ECG Confirmed by CHENCHO DENNEY MD ([id number]) on 11/01/2022 7:04:08 AM NAME : LAWSON DOYLE PID : [id number] : 2000 Gender : Male Race : ORD : [id number] Procedure Date : Oct 31 2022 13:16:45 Edit Date : Nov 01 2022 07:04:09 Diagnosis: Sinus rhythm Normal ECG Confirmed by CHENCHO DENNEY MD ([id number]) on 11/01/2022 7:04:08 AM Test Reason : Pre OP Location : 400 : FVEKG 214 Overread By : CHENCHO DENNEY MD Edited By : CHENCHO DENNEY MD Referred By : , Acquired by : [id number], Normal [facility] HISTORY PHYSICALon HISTORY PHYSICAL HNO ID: [id number] Author: Tatum Chowdhury APRN.PROTEIN PURIFICATION SCIENTIST, DNP Service: Cardiovascular Medicine Author Type: Nurse [...] which included preparing to see the patient, capw-cd-uihd patient care, completing clinical documentation, obtaining and/or reviewing separately obtained history, performing a medically appropriate examination, counseling and educating the patient/family/caregive r, and ordering medications, tests, or procedures. SIGNATURE: (more content not included)... Normal [facility] NURSING PROGon 10-31-2022 NURSING PROG HNO ID: [id number] Author: Swetha Santo Service: Nursing Author Type: ? Type: Nursing Progress Note Filed: 10/31/2022 3:49 PM Note Text: Nursing Progress Note Topic of Note: Daily Note PATIENT NAME: Lawson Doyle Patient Location: DIRECTOR MUSEUM OR ZOO POOL/FV DIRECTOR MUSEUM OR ZOO POOL Room: DIRECTOR MUSEUM OR ZOO POOL ( INVASIVE CARDIOLOGY) 1531-Pt came back [...] This note was completed by: Swetha Santo [facility] NURSING PROG HNO ID: [id number] Author: Paul Peterson RN Service: Nursing Author Type: Registered Nurse Type: Nursing Progress Note Filed: 10/31/2022 1:25 PM Note Text: Nursing Progress Note Topic of Note: Daily Note PATIENT NAME: Lawson Doyle Patient Location: DIRECTOR MUSEUM OR ZOO POOL/ DIRECTOR MUSEUM OR ZOO POOL Room: DIRECTOR MUSEUM OR ZOO POOL (DIRECTOR MUSEUM OR ZOO 14) Pre op done. Consent on chart. BMP pending This note was completed by: Paul Peterson [facility] OPERATIVE NOon 10-31-2022 OPERATIVE NO HNO ID: [id number] Author: Don Patel MD Service: Vascular Surgery Author Type: Physician Type: Operative Report Filed: 11/09/2022 4:50 PM Note Text: OPERATIVE/PROCEDURE REPORT LOG ID: [id number] Surgery/Procedure Date: 10/31/2022 Incision/Procedure Start Time:2:26 PM Incision Close/Procedure End Time: 2:49 PM Surgeon(s)/Proceduralis t(s) and Molder Machine Tender(s): Surgeon(s) and Role: * Don Patel MD [...] details: The patient was taken to the component lab tech and laid supine on the table. After [...] The sheath was up-sized to a 6 serbian sheath. The stenosis was ballooned with a/an [...] DATE: 10/31/2022 TIME: 4:34 PM PAGER/CONTACT #: [phone] [facility] Basic metabolic 2000 panelon 04-20-2022 Anion gap [Moles/Vol] 5 mmol/L Low 9 - 18 mmol/L [facility] Calcium [Mass/Vol] 9.6 mg/dL 8.5 - 10. 2 mg/dL [facility] Chloride [Moles/Vol] 101 mmol/L 97 - 10 5 mmol/L [facility] CO2 [Moles/Vol] 36 mmol/L High 22 - 30 mmol/L [facility] Creatinine [Mass/Vol] 4.58 mg/dL High 0.73 - 1.22 mg/dL [facility] Estimated Glomerular Filtration Rate 17 mL/min/1.73m Low >=60 mL/min/1.73m [facility] Glucose [Mass/Vol] 93 mg/dL 74 - 99 mg/dL [facility] Potassium [Moles/Vol] 4.6 mmol/L 3.7 - 5.1 mmol/L [facility] Sodium [Moles/Vol] 142 mmol/L 136 - 144 mmol/L [facility] Urea nitrogen [Mass/Vol] 9 mg/dL 9 - 24 mg/dL [facility] Anion gap [Moles/Vol] 5 mmol/L Low 9-18 [facility] Comment on above: Order Comment: Speci men Type: BLOOD SPECIMEN [facility] Address: [address] [place], [place] [address] Performed By: #### 2 4321-2 #### [facility] CLIA [id number] [address] [place] [address] [place] Calcium [Mass/Vol] 9.6 mg/dL Normal 8.5-10.2 [facility] Comment on above: Order Comment: Speci men Type: BLOOD SPECIMEN [facility] Address: [address] [place] [address] Performed By: #### 2 4321-2 #### [facility] CLIA [id number] [address] [place] [address] [place] Chloride [Moles/Vol] 101 mmol/L Normal 97-105 [facility] Comment on above: Order Comment: Speci men Type: BLOOD SPECIMEN [facility] Address: [address] [place] [address] Performed By: #### 2 4321-2 #### [facility] CLIA [id number] [address] [place], [place] [address] [place] CO2 [Moles/Vol] 36 mmol/L High 22-30 [facility] Comment on above: Order Comment: Speci men Type: BLOOD SPECIMEN [facility] Address: [address] [place] [address] Performed By: #### 2 4321-2 #### [facility] CLIA [id number] [address] [place], [place] [address] [place] Creatinine [Mass/Vol] 4.58 mg/dL High 0.73-1.22 [facility] Comment on above: Order Comment: Ez trinh Type: BLOOD SPECIMEN [facility] Address: [address] [id number] Performed By: #### 2 4321-2 #### [facility] CLIA [id number] [address] [place] [address] [place] ESTIMATED GLOMERULAR FILTRATION RATE 17 mL/min/1.73m??? Low >=60 [facility] Comment on above: Order Comment: Ez trinh Type: BLOOD SPECIMEN [facility] Address: [address] [place], [place] [address] Result Comment: Gentry mated Glomerular Filtration Rate [...] GFR. Performed By: #### 2 4321-2 #### [facility] CLIA [id number] [address] [place] [address] [place] Glucose [Mass/Vol] 93 mg/dL Normal 74-99 [facility] Comment on above: Order Comment: Ez trinh Type: BLOOD SPECIMEN [facility] Address: [address] [place], [place] [address] Result Comment: [place] Diabetes Association (ADA) provides guidance for cutoff [...] Standards of Medical Care in Diabetes 2016, [place] Diabetes Association. Diabetes Care. 2016.39(Suppl 1). Performed By: #### 2 4321-2 #### [facility] CLIA [id number] [address] [place] [address] [place] Potassium [Moles/Vol] 4.6 mmol/L Normal 3.7-5.1 [facility] Comment on above: Order Comment: Speci men Type: BLOOD SPECIMEN [facility] Address: [address] [place] [address] Performed By: #### 2 4321-2 #### [facility] CLIA [id number] [address] [place] [address] [place] Sodium [Moles/Vol] 142 mmol/L Normal 136-144 [facility] Comment on above: Order Comment: Speci men Type: BLOOD SPECIMEN [facility] Address: [address] [place] [address] Performed By: #### 2 4321-2 #### [facility] [place] [id number] [address] [place] [address] [place] Urea nitrogen [Mass/Vol] 9 mg/dL Normal 9-24 [facility] Comment on above: Order Comment: Speci men Type: BLOOD SPECIMEN [facility] Address: [address] [place] [address] Performed By: #### 2 4321-2 #### [facility] IA [id number] [address] [place] [address] [place] CBC W Auto Differential pane l (Bld)on 04-20-2022 Basophils (Bld) [#/Vol] 0.04 10*3/uL Normal <0.11 [facility] Comment on above: Order Comment: Speci men Type: BLOOD SPECIMEN [facility] Address: [address] [place] [address] Performed By: #### 5 7021-8 #### [facility] CLIA [id number] [address] [place] [address] [place] Basophils/100 WBC (Bld) 0.5 % Normal [facility] Comment on above: Order Comment: Speci men Type: BLOOD SPECIMEN [facility] Address: [address] [address] Performed By: #### 5 7021-8 #### [facility] CLIA [id number] [facility] [place] [address] [place] Differential cell count method Nom (Bld) Auto Normal [facility] Comment on above: Order Comment: Speci men Type: BLOOD SPECIMEN [facility] Address: [address] [address] Performed By: #### 5 7021-8 #### [facility] CLIA [id number] [facility] [place] [address] [place] Eosinophils (Bld) [#/Vol] 0.82 10*3/uL High <0.46 [facility] Comment on above: Order Comment: Speci men Type: BLOOD SPECIMEN [facility] Address: [address] Performed By: #### 5 7021-8 #### [facility] CLIA [id number] [address] [place] [address] [place] Eosinophils/100 WBC (Bld) 11.2 % [facility] Comment on above: Order Comment: Speci men Type: BLOOD SPECIMEN [facility] Address: [address] Performed By: #### 5 7021-8 #### [facility] CLIA [id number] [address] [place] [address] [place] Erythrocyte distribution width (RBC) [Ratio] 12.7 % Normal 11.5-15.0 [facility] Comment on above: Order Comment: Speci men Type: BLOOD SPECIMEN [facility] Address: [address] Performed By: #### 5 7021-8 #### [facility] CLIA [id number] [address] [place] [address] [place] Hematocrit (Bld) [Volume fraction] 34.8 % Low 39.0-51.0 [facility] Comment on above: Order Comment: Speci men Type: BLOOD SPECIMEN [facility] Address: [address] [place] [address] Performed By: #### 5 7021-8 #### [facility] IA [id number] [address] [place] [address] [place] Hemoglobin (Bld) [Mass/Vol] 11.2 g/dL Low 13.0-17.0 [facility] Comment on above: Order Comment: Speci men Type: BLOOD SPECIMEN [facility] Address: [address] [place] [address] Performed By: #### 5 7021-8 #### [facility] IA [id number] [address] [place] [address] [place] Immature granulocytes (Bld) [#/Vol] 10*3/uL Normal <0.10 [facility] Comment on above: Order Comment: Speci men Type: BLOOD SPECIMEN [facility] Address: [address] [place] [address] Performed By: #### 5 7021-8 #### [facility] IA [id number] [address] [place] [address] [place] Immature granulocytes/100 WBC (Bld) 0.3 % Normal [facility] Comment on above: Order Comment: Speci men Type: BLOOD SPECIMEN Order[facility] Facility: [facility] Address: [address] [place], [place] [address] Performed By: #### 5 7021-8 #### [facility] CLIA [id number] [address] [place] [address] [place] Lymphocytes (Bld) [#/Vol] 1.98 10*3/uL Normal 1.00-4.00 [facility] Comment on above: Order Comment: Speci men Type: BLOOD SPECIMEN Order[facility]: [facility] Address: [address] [address] Performed By: #### 5 7021-8 #### [facility] CLIA [id number] [address] [place] [address] STATES [facility] Lymphocytes/100 WBC (Bld) 26.9 % Normal [facility] Comment on above: Order Comment: Speci men Type: BLOOD SPECIMEN Order[facility]: [facility] Address: [address] Performed By: #### 5 7021-8 #### [facility] IA [id number] [address] [place] [address] [place] MCH (RBC) [Entitic mass] 30.1 pg Normal 26.0-34.0 [facility] Comment on above: Order Comment: Speci men Type: BLOOD SPECIMEN Order[facility]: [facility] Address: [address] Performed By: #### 5 7021-8 #### [facility] IA [id number] [address] [place] [address] [place] MCHC (RBC) [Mass/Vol] 32.2 g/dL Normal 30.5-36.0 [facility] Comment on above: Order Comment: Speci men Type: BLOOD SPECIMEN Order[facility] Address: [address] Performed By: #### 5 7021-8 #### [facility] CLIA [id number] [address] [place] [address] [place] MCV (RBC) [Entitic vol] 93.5 fL Normal 80.0-100.0 [facility] Comment on above: Order Comment: Speci men Type: BLOOD SPECIMEN [facility] Address: [address] [place], [place] [address] Performed By: #### 5 7021-8 #### [facility] CLIA [id number] [address] [place] [address] [place] Monocytes (Bld) [#/Vol] 0.46 10*3/uL Normal <0.87 [facility] Comment on above: Order Comment: Speci men Type: BLOOD SPECIMEN Ordering [facility]: [facility] Address: [address] Performed By: #### 5 7021-8 #### [facility] CLIA [id number] [address] [place] [address] [place] Monocytes/100 WBC (Bld) 6.3 % Normal [facility] Comment on above: Order Comment: Speci men Type: BLOOD SPECIMEN Ordering [facility]: [facility] Address: [address] [address] Performed By: #### 5 7021-8 #### [facility] CLIA [id number] [address] [place] [address] [place] Neutrophils (Bld) [#/Vol] 4.03 10*3/uL Normal 1.45-7.50 [facility] Comment on above: Order Comment: Speci men Type: BLOOD SPECIMEN Ordering Facility: [facility] Address: [address] Performed By: #### 5 7021-8 #### [facility] CLIA [id number] [address] [place], [place] [address] [place] Neutrophils/100 WBC (Bld) 54.8 % Normal [facility] Comment on above: Order Comment: Speci men Type: BLOOD SPECIMEN Ordering Facility: [facility] Address: [address] Performed By: #### 5 7021-8 #### [facility] CLIA [id number] [address] [place], [place] [address] [place] Nucleated RBC (Bld) [#/Vol] 10*3/uL Normal <0.01 [facility] Comment on above: Order Comment: Speci men Type: BLOOD SPECIMEN Ordering Facility: [facility] Address: [address] Performed By: #### 5 7021-8 #### [facility] CLIA [id number] [address] [place] [address] [place] Nucleated RBC/100 WBC (Bld) [Ratio] 0.0 /100 WBC Normal [facility] Comment on above: Order Comment: Speci men Type: BLOOD SPECIMEN Ordering Facility: [facility] Address: [address] Performed By: #### 5 7021-8 #### [facility] CLIA [id number] [address] [place], [place] [address] [place] Platelet mean volume (Bld) [Entitic vol] 9.9 fL Normal 9.0-12.7 [facility] Comment on above: Order Comment: Speci men Type: BLOOD SPECIMEN Ordering Facility: [facility] Address: [address] Performed By: #### 5 7021-8 #### [facility] IA [id number] [address] [place], [place] [address] [place] Platelets (Bld) [#/Vol] 267 10*3/uL Normal 150-400 [facility] Comment on above: Order Comment: Speci men Type: BLOOD SPECIMEN Ordering Facility: [facility] Address: [address] [id number] Performed By: #### 5 7021-8 #### [facility] CLIA [id number] [address] [place], [place] [address] [place] RBC (Bld) [#/Vol] 3.72 10*6/uL Low 4.20-6.00 [facility] Comment on above: Order Comment: Speci men Type: BLOOD SPECIMEN Ordering Facility: [facility] Address: [address] [place] [address] Performed By: #### 5 7021-8 #### [facility] CLIA [id number] [address] [place] [address] WBC (Bld) [#/Vol] 7.35 10*3/uL Normal 3.70-11.00 [facility] Comment on above: Order Comment: Speci men Type: BLOOD SPECIMEN Ordering Facility: [facility] Address: [place] [address] Performed By: #### 5 7021-8 #### [facility] CLIA [id number] [address] [place] [address] OF [facility] Basophils (Bld) [#/Vol] 0.04 10*3/uL <0.11 k/uL [facility] Basophils/100 WBC (Bld) 0.5 % [facility] Differential cell count method Nom (Bld) Auto [facility] Eosinophils (Bld) [#/Vol] 0.82 10*3/uL High <0.46 k/uL [facility] Eosinophils/100 WBC (Bld) 11.2 % [facility] Erythrocyte distribution width (RBC) [Ratio] 12.7 % 11.5 - 15.0 % [facility] Hematocrit (Bld) [Volume fraction] 34.8 % Low 39.0 - 51.0 % [facility] Hemoglobin (Bld) [Mass/Vol] 11.2 g/dL Low 13.0 - 17.0 g/dL [facility] Immature granulocytes (Bld) [#/Vol] <0.10 k/uL [facility] Immature granulocytes/100 WBC (Bld) 0.3 % [facility] Lymphocytes (Bld) [#/Vol] 1.98 10*3/uL 1.00 - 4.00 k/uL [facility] Lymphocytes/100 WBC (Bld) 26.9 % [facility] MCH (RBC) [Entitic mass] 30.1 pg 26.0 - 34.[address] [facility] MCHC (RBC) [Mass/Vol] 32.2 g/dL 30.5 - 36.0 g/dL [facility] MCV (RBC) [Entitic vol] 93.5 fL 80.0 - 100.0 fL [facility] Monocytes (Bld) [#/Vol] 0.46 10*3/uL <0.87 k/uL [facility] Monocytes/100 WBC (Bld) 6.3 % [facility] Neutrophils (Bld) [#/Vol] 4.03 10*3/uL 1.45 - 7.50 k/uL [facility] Neutrophils/100 WBC (Bld) 54.8 % [facility] Nucleated RBC (Bld) [#/Vol] <0.01 k/uL [facility] Nucleated RBC/100 WBC (Bld) [Ratio] 0.0 /[address] [facility] Platelet mean volume (Bld) [Entitic vol] 9.9 fL 9.0 - 12.[address] [facility] Platelets (Bld) [#/Vol] 267 10*3/uL 150 - 400 k/uL [facility] RBC (Bld) [#/Vol] 3.72 10*6/uL Low 4.20 - 6.0 0 m/uL [facility] WBC (Bld) [#/Vol] 7.35 10*3/uL 3.70 - 11. 00 k/uL [facility] Clinical Event Note-Hemodial ysis- Treatment Delayon [...] 21-Mar-2022 12:03 by Miley Oconnor (TASHIA) Normal [facility] D-DIMER, VTE EXCLUSIONon D-DIMER, VTE EXCLUSION 773 ng/mL FEU Abnormal < or = 500 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 He [...] prior to dialysis. Phosphorus 4.1. -Discussed with delinquency prevention social worker-working on getting outpatient HD set up, cannot be done until tomorrow due to the holiday. -Discussed with Dr. Grant-[place]ay to [place] tomorrow after outpatient HD arrangements have been [...] a TIBC (more content not included)... Normal [facility] Daily Progress Note-Nephrolo gyon 03-21-2022 Daily Progress Note-Nephrology Service: Nephrology Subjective Data: LAWSON DOYLE is a 22 year old Male who is Hospital Day # 6. pt had cp this am. just went for ct with contrast agreeable to hd today. Objective Data: Objective Information: T PRBPMAPSpO2 [id number]/1641836% Date/Time03/21 5:241/3 7:571/3 8:421/3 8:421/3 7:57 Range(36C [...] 1800 BIOLOGICALS: 1. Epoetin Trey (Non-ESRD) Injectable: 12224 unit(s) SubCutaneous Weekly CARDIOVASCULAR AGENTS: 1. Losartan: [...] dialysis at [facility] which would be closest facility to where [...] Updated: 21-Mar-2022 12:27 by Darryn Grant) Normal [facility] Order Reconciliationon 03-21 Order Reconciliation Page [...] is n (more content not included)... Normal [facility] Daily Progress Note-General Internal Medicineon 03-20-2022 [...] prior to dialysis. Phosphorus 4.1. -Discussed with delinquency prevention social worker-working on getting outpatient HD set up, cannot be done until tomorrow due to the holiday. -Discussed with Dr. Grant-[place]ay to [place] tomorrow after outpatient HD arrangements have been [...] over h (more content not included)... Normal [facility] Daily Progress Note-Nephrolo gyon 03-20-2022 Daily Progress Note-Nephrology Service: Nephrology Subjective Data: LAWSON DOYLE is a 22 year old Male who is Hospital Day # 5. pt feeling better had 2nd hd today about 1 liter removed each tx. Objective Data: Objective Information: T PRBPMAPSpO2 [id number] 3% Date/Time03/20 13: 13: 12:5212 13:0703/20 13: [...] 1800 BIOLOGICALS: 1. Epoetin Trey (Non-ESRD) Injectable: 22848 unit(s) SubCutaneous Weekly CARDIOVASCULAR AGENTS: 1. Losartan: [...] dialysis at [facility] which would be closest facility to where [...] Updated: 20-Mar-2022 17:22 by Darryn Grant) Normal [facility] Discharge Planning [id number] 0 03-20-2022 Discharge Planning Note2 Discharge Planning: Anticipated Discharge [id number] Discharge Planning 03/20/22 1125 Social Work Note SW received referral to arrange for outpt HD treatments, pt is new HD. Nephrology note indicates that HD center of choice is [facility] on [facility]. SW attempted to meet with pt to confirm information and discuss treatment referral process, however, pt currently off the floor for dialysis treatment. SW started referral to [facility], will confirm information with pt and update referral as needed. will submit referral once information is confirmed with pt. MIKE Mejia, JOAN 03/20/22 1420 Social Work Note SW met with pt at bedside to confirm information for outpt dialysis referral. Pt confirms preferred dialysis center is [facility] on [facility]. Pt states preferred time is morning, no preference as to which days. Pt states he will transport himself to and from dialysis. SW completed referral and submitted to [facility]. Will update pt with chair time once received. MIKE Mejia, NETWORKS SOFTWARE CONSULTANT Assessment: Discharge Planning Assessment [id number] Discharge Documentation: Code StatusCode Status order at time of discharge: Full Code Electronic Signatures: Michell Ramos (TRUCK ENGINE TECHNICIAN) (Signed 20-Mar-2022 10:39) Authored: Discharge Planning, Assessment, Discharge Documentation Candice Bianchi) (Signed 20-Mar-2022 14:24) Authored: Discharge Planning Last Updated: 20-Mar-2022 14:24 by Candice Bianchi (BULWARK CARPENTER) Normal [facility] RENAL FUNCTION PANELon 03-20 Albumin [Mass/Vol] 3.5 g/dL Normal 3.4 - 5.0 [facility] Comment on above: Performed By: #### U [facility] #### [address] [id number] Anion gap [Moles/Vol] 11 mmol/L Normal 10 - 20 [facility] Comment on above: Performed By: #### U [facility] #### [address] [id number] Calcium [Mass/Vol] 8.4 mg/dL Low 8.6 - 10.3 [facility] Comment on above: Performed By: #### U [facility] #### [address] [id number] Chloride [Moles/Vol] 104 mmol/L Normal 98 - 107 [facility] Comment on above: Performed By: #### U [facility] #### [address] [id number] Creatinine [Mass/Vol] 6.74 mg/dL High 0.50 - 1.30 [facility] Comment on above: Performed By: #### U [facility] #### [address] [id number] GFR/1.73 sq M.predicted among non-blacks MDRD (S/P/Bld) [Vol rate/Area] 11 mL/min/{1.73_m2} Abnormal >90 [facility] Comment on above: Result Comment: CALC ULATIONS OF ESTIMATED GFR ARE PERFORMED USING THE 2020 CKD-EPI STUDY REFIT EQUATION WITHOUT THE RACE VARIABLE FOR THE IDMS-TRACEABLE CREATININE METHODS. https://jasn.asnjournals.org/content/early//ASN.317996 5432 Performed By: #### U [facility] #### [address] [id number] Glucose [Mass/Vol] 95 mg/dL Normal 74 - 99 [facility] Comment on above: Performed By: #### [facility] #### [address] [id number] HCO3 (Bld) [Moles/Vol] 30 mmol/L Normal 21 - 32 [facility] Comment on above: Performed By: #### [facility] #### [address] [id number] Phosphate [Mass/Vol] 4.1 mg/dL Normal 2.5 - 4.9 [facility] Comment on above: Result Comment: The performance characteristics of phosphorus testing in heparinized plasma have been validated by the individual laboratory site where testing is performed. Testing on heparinized plasma is not approved by the FDA; however, such approval is not necessary. Performed By: #### U [facility] #### [address] [id number] Potassium [Moles/Vol] 4.3 mmol/L Normal 3.5 - 5.3 [facility] Comment on above: Performed By: #### [facility] #### [address] [id number] Sodium [Moles/Vol] 141 mmol/L Normal 136 - 145 [facility] Comment on above: Performed By: #### [facility] #### [address] [id number] Urea nitrogen [Mass/Vol] 31 mg/dL High 6 - 23 [facility] Comment on above: Performed By: #### [facility] #### [address] [id number] CBCon 03-19-2022 Erythrocyte distribution width (RBC) [Ratio] 12.3 % Normal 11.5 - 14.5 [facility] Comment on above: Performed By: #### P [facility] #### [address] [id number] Hematocrit (Bld) [Volume fraction] 26.1 % Low 41.0 - 52.0 [facility] Comment on above: Performed By: #### P [facility] #### [address] [id number] Hemoglobin (Bld) [Mass/Vol] 8.7 g/dL Low 13.5 - 17.5 [facility] Comment on above: Performed By: #### P [facility] #### [address] [id number] MCHC (RBC) [Mass/Vol] 33.3 g/dL Normal 32.0 - 36.0 [facility] Comment on above: Performed By: #### P [facility] #### [address] [id number] MCV (RBC) [Entitic vol] 93 fL Normal 80 - 100 [facility] Comment on above: Performed By: #### P [facility] #### [address] [id number] Platelets (Bld) [#/Vol] 156 10*3/uL Normal 150 - 450 [facility] Comment on above: Performed By: #### P [facility] #### [address] [id number] RBC 2.82 x10E12/L Low 4.50 - 5.90 [facility] Comment on above: Performed By: #### P [facility] #### [address] [id number] WBC (Bld) [#/Vol] 4.6 10*3/uL Normal 4.4 - 11.3 [facility] Comment on above: Performed By: #### P [facility] #### [address] [id number] Daily Progress Note-General Internal Medicineon 03-19-2022 Daily [...] dialysis. *These notes are being done using [employer] voice recognition technology and may include unintended errors with respect to translation of words, typographical errors or grammar errors which may not have been identified prior to finalization of the chart note. Subjective Data: LAWSON DOYLE is a 22 year old Male who is Hospital Day # 4. See [place] for today above. Objective Data: Objective Information: T PRBPMAPSpO2 [id number] (more content not included)... Normal [facility] Daily Progress Note-Nephrolo gyon 03-19-2022 Daily [...] fevers. Objective Data: Objective Information: T PRBPMAPSpO2 [id number]/[id number] 6% Date/Time03/19 12:5203/19 12:5203/19 12:5203/19 12: 12: [...] 1800 BIOLOGICALS: 1. Epoetin Trey (Non-ESRD) Injectable: 80149 unit(s) SubCutaneous Weekly CARDIOVASCULAR AGENTS: 1. Losartan: [...] dialysis at [facility] which would be closest facility to where he lives. next hd on sunday 2) hypertension - d/c clonidine and use losartan instead 3) anemia -we will give 20,000 units of Retacrit. Ferritin was slightly over 200 earlier this month 4) hyperphosphatemia -levels are normal Add renal vitamin Electronic (more content not included)... Normal [facility] Discharge [id number] 023 Discharge Profile2 Discharge Orders: Anticipated Discharge Date: Anticipated Discharge [id number] DNAR: Code Status at Discharge: Full Code [...] on Protonix and Zofran. 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 He will follow-up with his tents assembler, Dr. Grant, as scheduled. Final diagnoses: 1. [...] Primary Care Reason for ReferralHospital follow-up Scheduled Date/[id number] 11:[id number] [place], [place] [address] [address] Phone [phone] CommentsPlease wear a mask when entering the [...] REVIEW of Orders, Appointments, Gold Form - Franchise Sales Representative Summary Last Updated: 21-Mar-2022 16:18 by Anjel Stover (PT ACC REP) Normal [facility] HEPATITIS B SURFACE AGon HEP.B SURFACE AG Non-Reactive Normal NONREACTIVE [facility] Comment on above: Result Comment: Biot in interference may cause falsely decreased results. Patients taking a Biotin dose of up to 5 mg/day should refrain from taking Biotin for 24 hours before sample collection. Providers may contact their local laboratory for further information. Performed By: #### [facility] #### [address] [id number] Lab Specimen Source Normal [facility] Comment on above: Performed By: #### U [facility] #### [address] [id number] RENAL FUNCTION PANELon 03-19 Albumin [Mass/Vol] 3.4 g/dL Normal 3.4 - 5.0 [facility] Comment on above: Performed By: #### M G #### [address] [id number] Anion gap [Moles/Vol] 11 mmol/L Normal 10 - 20 [facility] Comment on above: Performed By: #### M G #### [address] [id number] Calcium [Mass/Vol] 8.3 mg/dL Low 8.6 - 10.3 [facility] Comment on above: Performed By: #### M G #### [address] [id number] Chloride [Moles/Vol] 104 mmol/L Normal 98 - 107 [facility] Comment on above: Performed By: #### M G #### [address] [id number] Creatinine [Mass/Vol] 5.61 mg/dL High 0.50 - 1.30 [facility] Comment on above: Performed By: #### M G #### [address] [id number] GFR/1.73 sq M.predicted among non-blacks MDRD (S/P/Bld) [Vol rate/Area] 14 mL/min/{1.73_m2} Abnormal >90 [facility] Comment on above: Result Comment: CALC ULATIONS OF ESTIMATED GFR ARE PERFORMED USING THE 2020 CKD-EPI STUDY REFIT EQUATION WITHOUT THE RACE VARIABLE FOR THE IDMS-TRACEABLE CREATININE METHODS. https://jasn.asnjournals.org/content//ASN.705350 5162 Performed By: #### M G #### [address] [id number] Glucose [Mass/Vol] 101 mg/dL High 74 - 99 [facility] Comment on above: Performed By: #### M G #### [address] [id number] HCO3 (Bld) [Moles/Vol] 29 mmol/L Normal 21 - 32 [facility] Comment on above: Performed By: #### M G #### [address] [id number] Phosphate [Mass/Vol] 4.3 mg/dL Normal 2.5 - 4.9 [facility] Comment on above: Result Comment: The performance characteristics of phosphorus testing in heparinized plasma have been validated by the individual laboratory site where testing is performed. Testing on heparinized plasma is not approved by the FDA; however, such approval is not necessary. Performed By: #### M G #### [address] [id number] Potassium [Moles/Vol] 4.5 mmol/L Normal 3.5 - 5.3 [facility] Comment on above: Performed By: #### M G #### [address] [id number] Sodium [Moles/Vol] 139 mmol/L Normal 136 - 145 [facility] Comment on above: Performed By: #### M G #### [address] [id number] Urea nitrogen [Mass/Vol] 31 mg/dL High 6 - 23 [facility] Comment on above: Performed By: #### M G #### [address] [id number] C-REACTIVE PROTEINon 12-31-2 022 C-REACTIVE PROTEIN 0.84 mg/dL Normal [facility] Comment on above: Result Comment: REF VALUE < 1.00 Performed By: #### T [facility] #### [address] [id number] CBCon 03-18-2022 Erythrocyte distribution width (RBC) [Ratio] 12.4 % Normal 11.5 - 14.5 [facility] Comment on above: Performed By: #### T [facility] #### [address] [id number] Hematocrit (Bld) [Volume fraction] 25.7 % Low 41.0 - 52.0 [facility] Comment on above: Performed By: #### T [facility] #### [address] [id number] Hemoglobin (Bld) [Mass/Vol] 8.5 g/dL Low 13.5 - 17.5 [facility] Comment on above: Performed By: #### T [facility] #### [address] [id number] MCHC (RBC) [Mass/Vol] 33.1 g/dL Normal 32.0 - 36.0 [facility] Comment on above: Performed By: #### T [facility] #### [address] [id number] MCV (RBC) [Entitic vol] 93 fL Normal 80 - 100 [facility] Comment on above: Performed By: #### T [facility] #### [address] [id number] Platelets (Bld) [#/Vol] 149 10*3/uL Low 150 - 450 [facility] Comment on above: Performed By: #### T [facility] #### [address] [id number] RBC 2.77 x10E12/L Low 4.50 - 5.90 [facility] Comment on above: Performed By: #### T [facility] #### [address] [id number] WBC (Bld) [#/Vol] 3.4 10*3/uL Low 4.4 - 11.3 [facility] Comment on above: Performed By: #### T PS2 #### [facility] [address] [place], [place] [id number] CT CHEST ABDOMEN PELVIS W IV CONTRASTon [...] CT abdomen and pelvis 03/04/2022. ACCESSION NUMBER(S): [id number] ORDERING CLINICIAN: KAREEN AGEE TECHNIQUE: Axial CT [...] impaction. Electronically signed by: DO Sushma [facility] Daily Progress Note-General Internal Medicineon 03-18-2022 [...] dialysis. *These notes are being done using [employer] voice recognition technology and may include unintended errors with respect to translation of words, typographical errors or grammar errors which may not have been identified prior to finalization of the chart note. Subjective Data: LAWSON DOYLE is a 22 year old Male who is Hospital Day # 3. See [place] for today above. Objective Data: Objective Information: T PRBPMAPSpO2 [id number] 5% Date/Time03/18 10: 11: 10: 11: 8: [...] 3. cloNIDin (more content not included)... Normal [facility] Daily Progress Note-Nephrolo benjamin 03-18-2022 Daily Progress Note-Nephrology Service: Nephrology Subjective Data: LAWSON DOYLE is a 22 year old Male who is Hospital Day # 3. pt seen on hd had fever yesterday was flu/ covid neg. cultures drawn getting hd now. Objective Data: Objective Information: T PRBPMAPSpO2 [id number]% Date/Time03/18 13: 13: 13: 13: 8: 13:08 [...] 1800 BIOLOGICALS: 1. Epoetin Trey (Non-ESRD) Injectable: 21432 unit(s) SubCutaneous Weekly CARDIOVASCULAR AGENTS: 1. cloNIDine [...] dialysis at [facility] which would be closest facility to where [...] Objective Data, (more content not included)... Normal [facility] GLUCOSE-POCTon 03-18-2022 Glucose [Mass/Vol] 132 mg/dL High 74 - 99 [facility] Comment on above: Performed By: #### G APC1 #### [address] [id number] IRON + TIBCon 03-18-2022 % SATURATION 17 % Low 25 - 45 [facility] Comment on above: Performed By: #### P [facility] #### [facility] [address] [place], [place] [id number] TIBC 255 ug/dL Normal 240 - 445 [facility] Comment on above: Performed By: #### P [facility] #### [facility] [address] [place], [place] [id number] Iron [Mass/Vol] 43 ug/dL Normal 35 - 150 [facility] Comment on above: Performed By: #### P T[facility] #### [facility] [address] [place], [place] [phone] PROCALCITONINon 03-18-2022 PROCALCITONIN 0.23 ng/mL Abnormal <=0.07 [facility] Comment on above: Result Comment: Proc [...] evaluated. Performed By: #### P [facility] #### [address] [id number] RENAL FUNCTION PANELon 03-18 Albumin [Mass/Vol] 3.8 g/dL Normal 3.4 - 5.0 [facility] Comment on above: Performed By: #### [facility] #### [address] [id number] Anion gap [Moles/Vol] 13 mmol/L Normal 10 - 20 [facility] Comment on above: Performed By: #### U [facility] #### [address] [id number] Calcium [Mass/Vol] 8.6 mg/dL Normal 8.6 - 10.3 [facility] Comment on above: Performed By: #### U [facility] #### [address] [id number] Chloride [Moles/Vol] 106 mmol/L Normal 98 - 107 [facility] Comment on above: Performed By: #### U [facility] #### [address] [id number] Creatinine [Mass/Vol] 7.22 mg/dL High 0.50 - 1.30 [facility] Comment on above: Performed By: #### [facility] #### [address] [id number] GFR/1.73 sq M.predicted among non-blacks MDRD (S/P/Bld) [Vol rate/Area] 10 mL/min/{1.73_m2} Abnormal >90 [facility] Comment on above: Result Comment: CALC ULATIONS OF ESTIMATED GFR ARE PERFORMED USING THE 2020 CKD-EPI STUDY REFIT EQUATION WITHOUT THE RACE VARIABLE FOR THE IDMS-TRACEABLE CREATININE METHODS. https://jasn.asnjournals.org/content///ASN.079104 5376 Performed By: #### [facility] #### [address] [id number] Glucose [Mass/Vol] 113 mg/dL High 74 - 99 [facility] Comment on above: Performed By: #### [facility] #### [address] [id number] HCO3 (Bld) [Moles/Vol] 25 mmol/L Normal 21 - 32 [facility] Comment on above: Performed By: #### U [facility] #### [address] [id number] Phosphate [Mass/Vol] 4.8 mg/dL Normal 2.5 - 4.9 [facility] Comment on above: Result Comment: The performance characteristics of phosphorus testing in heparinized plasma have been validated by the individual laboratory site where testing is performed. Testing on heparinized plasma is not approved by the FDA; however, such approval is not necessary. Performed By: #### [facility] #### [address] [id number] Potassium [Moles/Vol] 5.2 mmol/L Normal 3.5 - 5.3 [facility] Comment on above: Performed By: #### [facility] #### [address] [id number] Sodium [Moles/Vol] 139 mmol/L Normal 136 - 145 [facility] Comment on above: Performed By: #### U [facility] #### [address] [id number] Urea nitrogen [Mass/Vol] 58 mg/dL High 6 - 23 [facility] Comment on above: Performed By: #### U [facility] #### [address] [id number] SEDIMENTATION RATE, ERYTHROC YTEon 03-18-2022 SEDIMENTATION RATE, ERYTHROCYTE 43 mm/h High 0 - 15 [facility] Comment on above: Result Comment: Toni brown note new reference ranges as of 07/25/2021. Ran on alternate instrument Reference Ranges: Males: 0-15 Females: 0-20 Children under 18: 0-10 Performed By: #### U [facility] #### [address] [id number] BLOOD CULTURE, BACTERIALon 1 BLOOD CULTURE, BACTERIAL PATIENT: LAWSON DOYLE LOCATION: [address]#: [id number] : 89 AGE: SEX: M ORDERED BY: KAREEN AGEE SOURCE: Blood COLLECTED: 03/17/22 14:57 ANTIBIOTICS AT YANN.: RECEIVED : 03/17/22 22:21 SITE: PERIPHERAL R E S U L T S BLOOD CULTURE, BACTERIAL FINAL 03/21/22 23:42 No Growth at 1 days No Growth at 2 days No Growth at 3 days NO GROWTH at 4 days - FINAL REPORT Normal [facility] Comment on above: Performed By: #### U [facility] #### [address] [id number] BLOOD CULTURE, BACTERIAL PATIENT: LAWSON DOYLE [facility] [id number] : [birth year] AGE: SEX: M ORDERED BY: KAREEN AGEE SOURCE: Blood COLLECTED: 03/17/22 14:05 ANTIBIOTICS AT YANN.: RECEIVED : 03/17/22 22:23 SITE: PERIPHERAL R E S U L T S BLOOD CULTURE, BACTERIAL FINAL 03/21/22 23:42 No Growth at 1 days No Growth at 2 days No Growth at 3 days NO GROWTH at 4 days - FINAL REPORT Normal [facility] Comment on above: Performed By: #### U [facility] #### [address] [id number] CBCon 03-17-2022 Erythrocyte distribution width (RBC) [Ratio] 12.6 % Normal 11.5 - 14.5 [facility] Comment on above: Performed By: #### U [facility] #### [address] [id number] Hematocrit (Bld) [Volume fraction] 24.7 % Low 41.0 - 52.0 [facility] Comment on above: Performed By: #### U ANKUSH #### [address] [id number] Hemoglobin (Bld) [Mass/Vol] 8.0 g/dL Low 13.5 - 17.5 [facility] Comment on above: Performed By: #### U ANKUSH #### [address] [id number] MCHC (RBC) [Mass/Vol] 32.4 g/dL Normal 32.0 - 36.0 [facility] Comment on above: Performed By: #### U ANK[facility] #### [address] [id number] MCV (RBC) [Entitic vol] 94 fL Normal 80 - 100 [facility] Comment on above: Performed By: #### U ANK[facility] #### [address] [id number] Platelets (Bld) [#/Vol] 135 10*3/uL Low 150 - 450 [facility] Comment on above: Performed By: #### U ANKUSH #### [address] [id number] RBC 2.64 x10E12/L Low 4.50 - 5.90 [facility] Comment on above: Performed By: #### U ANKUSH #### [address] [id number] WBC (Bld) [#/Vol] 4.5 10*3/uL Normal 4.4 - 11.3 [facility] Comment on above: Performed By: #### U ANKUSH #### [address] [address] [id number] Consult-Nephrologyon 022 Consult-Nephrology Service: Service: Nephrology Consult: Consult requested by (Attending Name): Kareen Agee Reason: Patient with Alport's disease and renal failure, known to you. In with intractable vomiting. History of Present Illness: HPI: URBENSLAWSON GAMBLE is a 22 year old Male [...] Known Allergies: Objective: Objective Information: T PRBPMAPSpO2 [id number] 8% Date/Time03/17 5: 5: 19: 5: 5: [...] Indica (more content not included)... Normal [facility] Daily Progress Note-General Internal Medicineon [...] dialysis. *These notes are being done using [employer] voice recognition technology and may include unintended errors with respect to translation of words, typographical errors or grammar errors which may not have been identified prior to finalization of the chart note. Subjective Data: LAWSON DOYLE is a 22 year old Male who is Hospital Day # 2. See [place] for today above. Objective Data: Objective Information: T PRBPMAPSpO2 [id number] 8% Date/Time03/17 5: 5: 19: 5: 5: 5:34 Range(36.5C - 38.7C ) (89 - 102 ) (18 - 20 ) (140 - 152 )/ (70 - 84 ) (103 - 108 ) (96% - 99% ) Highest temp of 38.7 C was recorded at 03/16 19:45 Pain reported at 03/16 21:18: 3 = Mild T PRBPMAPSpO2 [id number]/[id number] 5% Date/Time03/17 10: 10: 19: 10: 10: [...] At Bedtime 5. Epoetin Trey (Non-ESRD) Injectable: 10875 unit(s) SubCutaneous Weekly 6. Lidocaine 4% TransDermal: [...] Reference Range: STRAW,YELLOW Appearance, Urine HAZY Specific [place], Urine 1.011 pH, Urine 5.0 Protein, Urine >=500 (3+) A Glucose, Urine 50 (TRACE) A Blood, Urine LARGE (3+) A Ketones, Urine NEGATIVE Bilirubin, Urine NEGATIVE Urobilinogen, Urine <2.0 Nitrite, Urine NEGATIVE Leukocyte Esterase (more content not included)... Normal [facility] INSERT DARNELL CATH W/O SQ PORT GREATER THAN 5 YRSon 03-17-2022 INSERT DARNELL CATH W/O SQ PORT GREATER THAN 5 YRS Patient Name: LAWSON DOYLE STUDY: INSERT DARNELL CATH W/O SQ PORT GREATER THAN 5 YRS; 03/17/2022 12:46 pm INDICATION: new ESRD . COMPARISON: None. ACCESSION NUMBER(S): [id number] ORDERING CLINICIAN: DARRYN GRANT TECHNIQUE: TUNNELLED DIALYSIS [...] caps and surgical masks. In addition, the flame cutting machine operator and first aid instructor donned sterile gowns and gloves after proper [...] Electronically signed by: FAITH AYALA MD Normal [facility] RENAL FUNCTION PANELon 03-17 Albumin [Mass/Vol] 3.4 g/dL Normal 3.4 - 5.0 [facility] Comment on above: Performed By: #### P TINR #### [address] [id number] Anion gap [Moles/Vol] 13 mmol/L Normal 10 - 20 [facility] Comment on above: Performed By: #### P TINR #### [address] [id number] Calcium [Mass/Vol] 8.4 mg/dL Low 8.6 - 10.3 [facility] Comment on above: Performed By: #### P TINR #### [address] [id number] Chloride [Moles/Vol] 106 mmol/L Normal 98 - 107 [facility] Comment on above: Performed By: #### P TINR #### [address] [id number] Creatinine [Mass/Vol] 7.54 mg/dL High 0.50 - 1.30 [facility] Comment on above: Performed By: #### P TINR #### [address] [id number] GFR/1.73 sq M.predicted among non-blacks MDRD (S/P/Bld) [Vol rate/Area] 10 mL/min/{1.73_m2} Abnormal >90 [facility] Comment on above: Result Comment: CALC ULATIONS OF ESTIMATED GFR ARE PERFORMED USING THE 2020 CKD-EPI STUDY REFIT EQUATION WITHOUT THE RACE VARIABLE FOR THE IDMS-TRACEABLE CREATININE METHODS. https://jasn.asnjournals.org/content//ASN.251245 4558 Performed By: #### P TINR #### [address] [id number] Glucose [Mass/Vol] 98 mg/dL Normal 74 - 99 [facility] Comment on above: Performed By: #### P TINR #### [address] [id number] HCO3 (Bld) [Moles/Vol] 23 mmol/L Normal 21 - 32 [facility] Comment on above: Performed By: #### P TINR #### [address] [id number] Phosphate [Mass/Vol] 5.1 mg/dL High 2.5 - 4.9 [facility] Comment on above: Result Comment: The performance characteristics of phosphorus testing in heparinized plasma have been validated by the individual laboratory site where testing is performed. Testing on heparinized plasma is not approved by the FDA; however, such approval is not necessary. Performed By: #### P TINR #### [address] [id number] Potassium [Moles/Vol] 4.9 mmol/L Normal 3.5 - 5.3 [facility] Comment on above: Performed By: #### P TINR #### [address] [id number] Sodium [Moles/Vol] 137 mmol/L Normal 136 - 145 [facility] Comment on above: Performed By: #### P TINR #### [address] [id number] Urea nitrogen [Mass/Vol] 62 mg/dL High 6 - 23 [facility] Comment on above: Performed By: #### P TINR #### [address] [id number] Admission Risk Screen - Adul ton 03-16-2022 [...] AlertFor Ebola-like Symptoms: Isolate Patient and Notify Provider/Inventory Control Coordinator For Contact: Notify Provider/Inventory Control Coordinator Advance Directive: Advance Directive/DNRno (2) Advance Directive [...] Learning Preferencesskill demonstration Cultural Considerationsnone Developmental Considerationsnone Evangelical Considerationsnone Learning Assessment (Other Learner): Other learner availableno Depression Screen: During the past month, have you often been bothered by feeling down, depressed or hopelessno During the past month, have you often had little interest or pleasure in doing thingsno Have you had any thoughts of harming anyone elseno (1) [place] Suicide: Risk Screen Not Applicable/Able to Answerable to be screened In the Past Month: Have you wished you were or could go to sleep and not wake upno(1) In the Past Month: Have you had any actual thoughts of killing yourself no(1) Lifetime: Have you ever done, started to do, or prepared to do anything to end your lifeno [place] Suicide Risknegative Adult Nutrition Screen: Have you [...] Spiritual Screen: Are there any cultural, spiritual, mormonism practices/values/needs that are important for us to knowno CAGE: Is this an injured patient at a (more content not included)... Normal [facility] CBC AND DIFFERENTIALon 03-16 % AUTOMATED IMMATURE GRAN 0.3 % Normal 0.0 - 0.9 [facility] Comment on above: Result Comment: Litzy ture Granulocyte Count (IG) includes promyelocytes, myelocytes and metamyelocytes but does not include bands. Percent differential counts (%) should be interpreted in the context of the absolute cell counts (cells/L). Performed By: #### G APC1 #### [address] [id number] Basophils (Bld) [#/Vol] 0.02 10*3/uL Normal 0.00 - 0.10 [facility] Comment on above: Performed By: #### G APC1 #### [address] [id number] Basophils/100 WBC (Bld) 0.3 % Normal 0.0 - 2.0 [facility] Comment on above: Performed By: #### G APC1 #### [address] [id number] Eosinophils (Bld) [#/Vol] 0.17 10*3/uL Normal 0.00 - 0.70 [facility] Comment on above: Performed By: #### G APC1 #### [address] [id number] Eosinophils/100 WBC (Bld) 2.5 % Normal 0.0 - 6.0 [facility] Comment on above: Performed By: #### G APC1 #### [address] [id number] Erythrocyte distribution width (RBC) [Ratio] 15.3 % High 11.5 - 14.5 [facility] Comment on above: Performed By: #### G APC1 #### [address] [id number] Hematocrit (Bld) [Volume fraction] 27.2 % Low 41.0 - 52.0 [facility] Comment on above: Performed By: #### G APC1 #### [address] [id number] Hemoglobin (Bld) [Mass/Vol] 8.8 g/dL Low 13.5 - 17.5 [facility] Comment on above: Performed By: #### G APC1 #### [address] [id number] Lymphocytes (Bld) [#/Vol] 0.26 10*3/uL Low 1.20 - 4.80 [facility] Comment on above: Performed By: #### G APC1 #### [address] [id number] Lymphocytes/100 WBC (Bld) 3.8 % Normal 13.0 - 44.0 [facility] Comment on above: Performed By: #### G APC1 #### [address] [id number] MCHC (RBC) [Mass/Vol] 32.4 g/dL Normal 32.0 - 36.0 [facility] Comment on above: Performed By: #### G APC1 #### [address] [id number] MCV (RBC) [Entitic vol] 96 fL Normal 80 - 100 [facility] Comment on above: Performed By: #### G APC1 #### [address] [id number] Monocytes (Bld) [#/Vol] 0.63 10*3/uL Normal 0.10 - 1.00 [facility] Comment on above: Performed By: #### G APC1 #### [address] [id number] Monocytes/100 WBC (Bld) 9.2 % Normal 2.0 - 10.0 [facility] Comment on above: Performed By: #### G APC1 #### [address] [id number] Neutrophils (Bld) [#/Vol] 5.74 10*3/uL Normal 1.20 - 7.70 [facility] Comment on above: Performed By: #### G APC1 #### [address] [id number] Neutrophils/100 WBC (Bld) 83.9 % Normal 40.0 - 80.0 [facility] Comment on above: Performed By: #### G APC1 #### [address] [id number] Platelets (Bld) [#/Vol] 195 10*3/uL Normal 150 - 450 [facility] Comment on above: Performed By: #### G APC1 #### [address] [id number] RBC 2.83 x10E12/L Low 4.50 - 5.90 [facility] Comment on above: Performed By: #### G APC1 #### [address] [id number] WBC (Bld) [#/Vol] 6.8 10*3/uL Normal 4.4 - 11.3 [facility] Comment on above: Performed By: #### G APC1 #### [address] [id number] COMPREHENSIVE PANELon 2021 Albumin [Mass/Vol] 4.1 g/dL Normal 3.4 - 5.0 [facility] Comment on above: Performed By: #### T PS2 #### [address] [id number] ALP [Catalytic activity/Vol] 60 U/L Normal 33 - 120 [facility] Comment on above: Performed By: #### T PS2 #### [address] [id number] ALT [Catalytic activity/Vol] 12 U/L Normal 10 - 52 [facility] Comment on above: Result Comment: Lalita ents treated with Sulfasalazine may generate falsely decreased results for ALT. Performed By: #### T PS2 #### [address] [id number] Anion gap [Moles/Vol] 20 mmol/L Normal 10 - 20 [facility] Comment on above: Performed By: #### T PS2 #### [address] [id number] AST [Catalytic activity/Vol] 17 U/L Normal 9 - 39 [facility] Comment on above: Performed By: #### T PS2 #### [address] [id number] Bilirubin [Mass/Vol] 0.4 mg/dL Normal 0.0 - 1.2 [facility] Comment on above: Performed By: #### T PS2 #### [address] [id number] Calcium [Mass/Vol] 8.8 mg/dL Normal 8.6 - 10.3 [facility] Comment on above: Performed By: #### T PS2 #### [address] [id number] Chloride [Moles/Vol] 104 mmol/L Normal 98 - 107 [facility] Comment on above: Performed By: #### T PS2 #### [address] [id number] Creatinine [Mass/Vol] 7.25 mg/dL High 0.50 - 1.30 [facility] Comment on above: Performed By: #### T PS2 #### [address] [id number] GFR/1.73 sq M.predicted among non-blacks MDRD (S/P/Bld) [Vol rate/Area] 10 mL/min/{1.73_m2} Abnormal >90 [facility] Comment on above: Result Comment: CALC ULATIONS OF ESTIMATED GFR ARE PERFORMED USING THE 2020 CKD-EPI STUDY REFIT EQUATION WITHOUT THE RACE VARIABLE FOR THE IDMS-TRACEABLE CREATININE METHODS. https://jasn.asnjournals.org/content/early//ASN.252583 5032 Performed By: #### T PS2 #### [address] [id number] Glucose [Mass/Vol] 89 mg/dL Normal 74 - 99 [facility] Comment on above: Performed By: #### T PS2 #### [address] [id number] HCO3 (Bld) [Moles/Vol] 18 mmol/L Low 21 - 32 [facility] Comment on above: Performed By: #### T PS2 #### [address] [id number] Potassium [Moles/Vol] 4.8 mmol/L Normal 3.5 - 5.3 [facility] Comment on above: Performed By: #### T PS2 #### [address] [id number] Protein [Mass/Vol] 6.7 g/dL Normal 6.4 - 8.2 [facility] Comment on above: Performed By: #### T PS2 #### [address] [id number] Sodium [Moles/Vol] 137 mmol/L Normal 136 - 145 [facility] Comment on above: Performed By: #### T PS2 #### [address] [id number] Urea nitrogen [Mass/Vol] 68 mg/dL High 6 - 23 [facility] Comment on above: Performed By: #### T PS2 #### [address] [id number] ALBUMIN Canceled Normal [facility] Comment on above: Order Comment: TEST COMPREHENSIVE PANEL WAS CANCELLED, 03/16/2022 11:18 Grossly hemolyzedNotified Darlyn W that specimen will be recollected. Performed By: #### T PS2 #### [address] [id number] ALKALINE PHOSPHATASE Canceled Normal [facility] Comment on above: Order Comment: TEST COMPREHENSIVE PANEL WAS CANCELLED, 03/16/2022 11:18 Grossly hemolyzedNotified Darlyn W that specimen will be recollected. Performed By: #### T PS2 #### [address] [id number] ALT Canceled Normal [facility] Comment on above: Order Comment: TEST COMPREHENSIVE PANEL WAS CANCELLED, 03/16/2022 11:18 Grossly hemolyzedNotified Darlyn W that specimen will be recollected. Result Comment: Lalita ents treated with Sulfasalazine may generate falsely decreased results for ALT. Performed By: #### T PS2 #### [address], [place] [id number] ANION GAP Canceled Normal [facility] Comment on above: Order Comment: TEST COMPREHENSIVE PANEL WAS CANCELLED, 03/16/2022 11:18 Grossly hemolyzedNotified Darlyn W that specimen will be recollected. Performed By: #### T PS2 #### [address], [place] [id number] AST Canceled Normal [facility] Comment on above: Order Comment: TEST COMPREHENSIVE PANEL WAS CANCELLED, 03/16/2022 11:18 Grossly hemolyzedNotified Darlyn W that specimen will be recollected. Performed By: #### T PS2 #### [address], [place] [id number] BICARBONATE Canceled Normal [facility] Comment on above: Order Comment: TEST COMPREHENSIVE PANEL WAS CANCELLED, 03/16/2022 11:18 Grossly hemolyzedNotified Darlyn W that specimen will be recollected. Performed By: #### T PS2 #### [address], [place] [id number] BILIRUBIN,TOTAL Canceled Normal [facility] Comment on above: Order Comment: TEST COMPREHENSIVE PANEL WAS CANCELLED, 03/16/2022 11:18 Grossly hemolyzedNotified Darlyn W that specimen will be recollected. Performed By: #### T PS2 #### [address], [place] [id number] CALCIUM Canceled Normal [facility] Comment on above: Order Comment: TEST COMPREHENSIVE PANEL WAS CANCELLED, 03/16/2022 11:18 Grossly hemolyzedNotified Darlyn W that specimen will be recollected. Performed By: #### T PS2 #### [address] [id number] CHLORIDE Canceled Normal [facility] Comment on above: Order Comment: TEST COMPREHENSIVE PANEL WAS CANCELLED, 03/16/2022 11:18 Grossly hemolyzedNotified Darlyn W that specimen will be recollected. Performed By: #### T PS2 #### [address] [id number] CREATININE Canceled Normal [facility] Comment on above: Order Comment: TEST COMPREHENSIVE PANEL WAS CANCELLED, 03/16/2022 11:18 Grossly hemolyzedNotified Darlyn W that specimen will be recollected. Performed By: #### T PS2 #### [address] [id number] eGFR FEMALE Canceled Normal [facility] Comment on above: Order Comment: TEST COMPREHENSIVE PANEL WAS CANCELLED, 03/16/2022 11:18 Grossly hemolyzedNotified Darlyn W that specimen will be recollected. Result Comment: CALC ULATIONS OF ESTIMATED GFR ARE PERFORMED USING THE 2020 CKD-EPI STUDY REFIT EQUATION WITHOUT THE RACE VARIABLE FOR THE IDMS-TRACEABLE CREATININE METHODS. https://jasn.asnjournals.org/content/early/ASN.933398 7321 Performed By: #### T PS2 #### [address] [id number] eGFR MALE Canceled Normal [facility] Comment on above: Order Comment: TEST COMPREHENSIVE PANEL WAS CANCELLED, 03/16/2022 11:18 Grossly hemolyzedNotified Darlyn W that specimen will be recollected. Result Comment: CALC ULATIONS OF ESTIMATED GFR ARE PERFORMED USING THE 2020 CKD-EPI STUDY REFIT EQUATION WITHOUT THE RACE VARIABLE FOR THE IDMS-TRACEABLE CREATININE METHODS. https://jasn.asnjournals.org/content/early/ASN.307841 7102 Performed By: #### T PS2 #### [address] [id number] GLUCOSE Canceled Normal [facility] Comment on above: Order Comment: TEST COMPREHENSIVE PANEL WAS CANCELLED, 03/16/2022 11:18 Grossly hemolyzedNotified Darlyn W that specimen will be recollected. Performed By: #### T PS2 #### [address] [id number] POTASSIUM Canceled Normal [facility] Comment on above: Order Comment: TEST COMPREHENSIVE PANEL WAS CANCELLED, 03/16/2022 11:18 Grossly hemolyzedNotified Darlyn W that specimen will be recollected. Performed By: #### T PS2 #### [address] [id number] SODIUM Canceled Normal [facility] Comment on above: Order Comment: TEST COMPREHENSIVE PANEL WAS CANCELLED, 03/16/2022 11:18 Grossly hemolyzedNotified Darlyn W that specimen will be recollected. Performed By: #### T PS2 #### [address] [id number] TOTAL PROTEIN Canceled Normal [facility] Comment on above: Order Comment: TEST COMPREHENSIVE PANEL WAS CANCELLED, 03/16/2022 11:18 Grossly hemolyzedNotified Darlyn W that specimen will be recollected. Performed By: #### T PS2 #### [address] [id number] UREA NITROGEN Canceled Normal [facility] Comment on above: Order Comment: TEST COMPREHENSIVE PANEL WAS CANCELLED, 03/16/2022 11:18 Grossly hemolyzedNotified Darlyn W that specimen will be recollected. Performed By: #### T PS2 #### [address] [id number] Covid 19 Resultson 2 SARS-CoV-2 (COVID-19) RNA [...] You may also be contacted by the [facility] to see if any of your close [...] or Naproxen (Aleve) can also be used. Makl-nvg-othsrhu cough and cold medicines can be used according to the instructions on the package. Some jqip-qqm-zqosmdq medicines also contain acetaminophen. Make sure you [...] water are not available, use alcohol-based hand industrial locomotive operator. Avoid touching your eyes, nose, and mouth [...] 24 shayne (more content not included)... Normal [facility] INFLUENZA A/B, COVID 2019 PC R,SYMPTOMATICon 03-16-2022 INFLUENZA A, PCR Not detected Normal Not Detected [facility] Comment on above: Result Comment: Resp iratory virus testing is performed routinely by PCR for Influenza A/B and RSV. Not Detected results do not preclude Influenza A/B or RSV infections since the adequacy of sample collection or low viral burden may impact the clinical sensitivity of this test method. Performed By: #### G APC1 #### [address] [id number] INFLUENZA B, PCR Not detected Normal Not Detected [facility] Comment on above: Result Comment: Resp iratory virus testing is performed routinely by PCR for Influenza A/B and RSV. Not Detected results do not preclude Influenza A/B or RSV infections since the adequacy of sample collection or low viral burden may impact the clinical sensitivity of this test method. Performed By: #### G APC1 #### [address] [id number] SARS-CoV-2 (COVID-19) RNA MIGUEL+probe Ql (Unsp spec) Not detected Normal Not Detected [facility] Comment on above: Result Comment: . This test has received [facility] Emergency Use Authorization (EUA) and has been verified by [facility]. This test is only authorized for the duration of time that circumstances exist to justify the authorization of the emergency use of in vitro diagnostic tests for the detection of SARS-CoV-2 virus and/or diagnosis of COVID-19 infection under section 564(b)(1) of the Act, 21 U.S.C. 360bbb-3(b)(1), unless the authorization is terminated or revoked sooner. [facility] is certified under CLIA-88 as qualified to perform high complexity testing. Testing is performed in the [facility] laboratory located at [address] [place], [place] [address]. SARS-CoV-2/Flu/RSV Multiplex Test: Fact sheet for providers: https://www.fda.gov/media/406139/download Fact sheet for patients: https://www.fda.gov/media/663797/download Performed By: #### G APC1 #### [address] [id number] Lab Specimen Source Nasal, Nasopharyngeal Normal [facility] Comment on above: Performed By: #### G APC1 #### [address] [id number] LACTATEon 03-16-2022 Lactate [Moles/Vol] 0.7 mmol/L Normal 0.4 - 2.0 [facility] Comment on above: Result Comment: Shelbie puncture immediately after or during the administration of Metamizole may lead to falsely low results. Testing should be performed immediately prior to Metamizole dosing. Performed By: #### T PS2 #### [address] [id number] LACTATE Canceled Normal [facility] Comment on above: Order Comment: TEST LACTATE WAS CANCELLED, 03/16/2022 11:19 Grossly hemolyzedNotified Darlyn W that specimen will be recollected. Result Comment: Shelbie puncture immediately after or during the administration of Metamizole may lead to falsely low results. Testing should be performed immediately prior to Metamizole dosing. Performed By: #### M G #### [address] [id number] LIPASEon 03-16-2022 Lipase [Catalytic activity/Vol] 69 U/L Normal 9 - 82 [facility] Comment on above: Result Comment: Shelbie puncture immediately after or during the administration of Metamizole may lead to falsely low results. Testing should be performed immediately prior to Metamizole dosing. I-ihgdfu-y-benzoquinone imine (metabolite of Acetaminophen) will generate erroneously low results in samples for patients that have taken toxic doses of acetaminophen. Performed By: #### G APC1 #### [address] [id number] LIPASE Canceled Normal [facility] Comment on above: Order Comment: TEST RENAL FUNCTION PANEL WAS CANCELLED, 02/21/2022 06:55 CMP and PHOS on other order. Result Comment: Shelbie puncture immediately after or during the administration of Metamizole may lead to falsely low results. Testing should be performed immediately prior to Metamizole dosing. Performed By: #### R ENAL #### [address] [id number] Order Reconciliationon 03-16 Order Reconciliation Page 1 [...] oral tablet 1 tab(s) orally once a [id number] amLODIPine (NORVASC) TabletDOSE = 5 mg Oral DailyamLODIPine 5 mg oral tablet continued as the inpatient order amLODIPine (NORVASC) carvedilol 12.5 mg oral tablet 1 tab(s) orally 2 times a [id number] Carvedilol Tablet (COREG)DOSE = 12.5 mg Oral 2 Times a Daycarvedilol 12.5 mg oral tablet continued as the inpatient order Carvedilol cloNIDine 0.1 mg oral tablet 1 tab(s) orally 2 times a [id number] cloNIDine (CATAPRES) TabletDOSE = 0.1 mg Oral [...] = 10 mg Oral Once Normal [facility] PT/INRon 03-16-2022 PT Coag (PPP) [Time] 12.4 s Normal 9.8 - 13.4 [facility] Comment on above: Performed By: #### P TINR #### [address] [id number] PT, INR 1.1 Normal 0.9 - 1.1 [facility] Comment on above: Performed By: #### P TINR #### [address] [id number] Patient Profile - Adult v2on 03-16-2022 Patient [...] Health: Weight in kg79.5 kilogram(s) Weight in nal497.2 pound(s) Weight Methodactual (measured) Scale Typebed Height in cm177.8 centimeter(s)(2) Height in feet5 feet Height in ssitnx95 inch(es) Height Methodstated BMI (kg/m2)25.148 square meter [...] Screen - Adult Emergency" 16-Mar-2022 09:[address] [facility] Provider Note - ED v3on 12-2 [...] organomegaly; no hernia; normal bowel sounds; (-) [place] sign; (-) McBurneys sign; (+bilateral ) CVA [...] Name: cloNIDine (more content not included)... Normal [facility] Risk Screen - Adult Emergenc yon [...] Communicatenone Learning Preferencesaudio Cultural Considerationsnone Developmental Considerationsnone Evangelical Considerationsnone Learning Assessment (Other Learner): Learning Assessment (Other Learner): Other learner availableno Pressure Injury/TB/Substance: Pressure Injury: Do you have a coughno Smoking Statusunable to assess Admission Risk Screen: Significant IndicatorsComplete CAGE: CAGE: Is this an injured patient at a Trauma Center ([facility]/[facility] a/[place]): no Electronic Signatures: Leanna Rider (STAFF N) (Signed 16-Mar-2022 09:12) Authored: Preferred Language, Patient Preferred Pharmacy, Advanced Directives, Family Violence Adult, Learning Assessment (Patient), Learning Assessment (Other Learner), Pressure Injury/TB/Substance, Pressure Injury, CAGE Last Updated: 16-Mar-2022 09:12 by Leanna Rider (STAFF N) Normal [facility] Triage - EDon 03-16-2022 Triage - [...] BMI (kg/m2): 26.887 Calculated BSA (m2) 2.05 [place] Coma Scale: Best Eye Response: (E4) spontaneous Best Motor Response: (M6) obeys commands Best Verbal Response: (V5) oriented [place] Score: 15 Allergies: no Patient has homicidal [...] Reviewedyes HTN: Past Medical History, Active DTaP- Zdtdvdjmw-Xxvsxla-pdcuv ular Pertussis: Immunizations, Active, 2019 SARS-CoV-2 (COVID-19): Immunizations, Active Electronic Signatures: Leanna Rider (STAFF N) (Signed 16-Mar-2022 09:14) Authored: Quick Triage, Risk Screens, Pain, Arrival, ABCD, Immunizations, Travel History, Chart Review, Scores, Past Medical History Last Updated: 16-Mar-2022 09:14 by Leanna Rider (STAFF N) Normal [facility] UA MICROSCOPICon 03-16-2022 Mucus Ql (Urine sed) 1+ /LPF Normal [facility] Comment on above: Performed By: #### U ANKUSH #### [address] [id number] RBC 50 /HPF Abnormal 0-5 [facility] Comment on above: Performed By: #### U ANKUSH #### [address] [id number] SQUAMOUS EPITH. CELLS <[address] [facility] Comment on above: Performed By: #### U ANKUSH #### [address] [id number] WBC 3 /HPF Normal 0-5 [facility] Comment on above: Performed By: #### U ANKUSH #### [address] [id number] URINALYSIS WITH CULTURE IF I NDICATEDon 03-16-2022 Appearance (U) HAZY Normal CLEAR [facility] Comment on above: Performed By: #### P TINR #### [address] [id number] Bilirubin Ql (U) Negative Normal NEGATIVE [facility] Comment on above: Performed By: #### P TINR #### [address] [id number] Color (U) YELLOW Normal STRAW,YELLOW [facility] Comment on above: Performed By: #### P TINR #### [address] [id number] Glucose Ql (U) 50 (TRACE) Abnormal NEGATIVE [facility] Comment on above: Performed By: #### P TINR #### [address] [id number] Hemoglobin Ql (U) LARGE (3+) Abnormal NEGATIVE [facility] Comment on above: Performed By: #### P TINR #### [address] [id number] Ketones Ql (U) Negative Normal NEGATIVE [facility] Comment on above: Performed By: #### P TINR #### [address] [id number] Leukocyte esterase Test strip Ql (U) Negative Normal NEGATIVE [facility] Comment on above: Performed By: #### P TINR #### [address] [id number] Nitrite Ql (U) Negative Normal NEGATIVE [facility] Comment on above: Performed By: #### P TINR #### [address] [id number] pH (U) 5.0 [pH] Normal 5.0 - 8.0 [facility] Comment on above: Performed By: #### P TINR #### [address] [id number] Protein Ql (U) >=500 (3+) Abnormal NEGATIVE [facility] Comment on above: Performed By: #### P TINR #### [address] [id number] Specific gravity (U) [Rel density] 1.011 Normal 1.005 - 1.035 [facility] Comment on above: Performed By: #### P TINR #### [address] [id number] Urobilinogen (U) [Mass/Vol] mg/dL Normal 0.0 - 1.9 [facility] Comment on above: Performed By: #### P TINR #### [address] [id number] CBC AND DIFFERENTIALon 03-04 % AUTOMATED IMMATURE GRAN 0.4 % Normal 0.0 - 0.9 [facility] Comment on above: Result Comment: Litzy ture Granulocyte Count (IG) includes promyelocytes, myelocytes and metamyelocytes but does not include bands. Percent differential counts (%) should be interpreted in the context of the absolute cell counts (cells/L). Performed By: #### G APC1 #### [address] [id number] Basophils (Bld) [#/Vol] 0.03 10*3/uL Normal 0.00 - 0.10 [facility] Comment on above: Performed By: #### G APC1 #### [address] [id number] Basophils/100 WBC (Bld) 0.4 % Normal 0.0 - 2.0 [facility] Comment on above: Performed By: #### G APC1 #### [address] [id number] Eosinophils (Bld) [#/Vol] 0.59 10*3/uL Normal 0.00 - 0.70 [facility] Comment on above: Performed By: #### G APC1 #### [address] [id number] Eosinophils/100 WBC (Bld) 7.3 % Normal 0.0 - 6.0 [facility] Comment on above: Performed By: #### G APC1 #### [address] [id number] Erythrocyte distribution width (RBC) [Ratio] 13.4 % Normal 11.5 - 14.5 [facility] Comment on above: Performed By: #### G APC1 #### [address] [id number] Hematocrit (Bld) [Volume fraction] 29.2 % Low 41.0 - 52.0 [facility] Comment on above: Performed By: #### G APC1 #### [address] [id number] Hemoglobin (Bld) [Mass/Vol] 9.5 g/dL Low 13.5 - 17.5 [facility] Comment on above: Performed By: #### G APC1 #### [address] [id number] Lymphocytes (Bld) [#/Vol] 1.48 10*3/uL Normal 1.20 - 4.80 [facility] Comment on above: Performed By: #### G APC1 #### [address] [id number] Lymphocytes/100 WBC (Bld) 18.3 % Normal 13.0 - 44.0 [facility] Comment on above: Performed By: #### G APC1 #### [address] [id number] MCHC (RBC) [Mass/Vol] 32.5 g/dL Normal 32.0 - 36.0 [facility] Comment on above: Performed By: #### G APC1 #### [address] [id number] MCV (RBC) [Entitic vol] 93 fL Normal 80 - 100 [facility] Comment on above: Performed By: #### G APC1 #### [address] [id number] Monocytes (Bld) [#/Vol] 0.53 10*3/uL Normal 0.10 - 1.00 [facility] Comment on above: Performed By: #### G APC1 #### [address] [id number] Monocytes/100 WBC (Bld) 6.6 % Normal 2.0 - 10.0 [facility] Comment on above: Performed By: #### G APC1 #### [address] [id number] Neutrophils (Bld) [#/Vol] 5.42 10*3/uL Normal 1.20 - 7.70 [facility] Comment on above: Performed By: #### G APC1 #### [address] [id number] Neutrophils/100 WBC (Bld) 67.0 % Normal 40.0 - 80.0 [facility] Comment on above: Performed By: #### G APC1 #### [address] [id number] Platelets (Bld) [#/Vol] 290 10*3/uL Normal 150 - 450 [facility] Comment on above: Performed By: #### G APC1 #### [address] [id number] RBC 3.14 x10E12/L Low 4.50 - 5.90 [facility] Comment on above: Performed By: #### G APC1 #### [address] [id number] WBC (Bld) [#/Vol] 8.1 10*3/uL Normal 4.4 - 11.3 [facility] Comment on above: Performed By: #### G APC1 #### [address] [id number] COMPREHENSIVE PANELon 2021 Albumin [Mass/Vol] 4.3 g/dL Normal 3.4 - 5.0 [facility] Comment on above: Performed By: #### R ENAL #### [address] [id number] ALP [Catalytic activity/Vol] 62 U/L Normal 33 - 120 [facility] Comment on above: Performed By: #### R ENAL #### [address] [id number] ALT [Catalytic activity/Vol] 13 U/L Normal 10 - 52 [facility] Comment on above: Result Comment: Lalita ents treated with Sulfasalazine may generate falsely decreased results for ALT. Performed By: #### R ENAL #### [address] [id number] Anion gap [Moles/Vol] 18 mmol/L Normal 10 - 20 [facility] Comment on above: Performed By: #### R ENAL #### [address] [id number] AST [Catalytic activity/Vol] 14 U/L Normal 9 - 39 [facility] Comment on above: Performed By: #### R ENAL #### [address] [id number] Bilirubin [Mass/Vol] 0.3 mg/dL Normal 0.0 - 1.2 [facility] Comment on above: Performed By: #### R ENAL #### [address] [id number] Calcium [Mass/Vol] 8.6 mg/dL Normal 8.6 - 10.3 [facility] Comment on above: Performed By: #### R ENAL #### [address] [id number] Chloride [Moles/Vol] 104 mmol/L Normal 98 - 107 [facility] Comment on above: Performed By: #### R ENAL #### [address] [id number] Creatinine [Mass/Vol] 7.33 mg/dL High 0.50 - 1.30 [facility] Comment on above: Performed By: #### R ENAL #### [address] [id number] GFR/1.73 sq M.predicted among non-blacks MDRD (S/P/Bld) [Vol rate/Area] 10 mL/min/{1.73_m2} Abnormal >90 [facility] Comment on above: Result Comment: CALC ULATIONS OF ESTIMATED GFR ARE PERFORMED USING THE 2020 CKD-EPI STUDY REFIT EQUATION WITHOUT THE RACE VARIABLE FOR THE IDMS-TRACEABLE CREATININE METHODS. https://jasn.asnjournals.org/content//ASN.707947 7657 Performed By: #### R ENAL #### [address] [id number] Glucose [Mass/Vol] 89 mg/dL Normal 74 - 99 [facility] Comment on above: Performed By: #### R ENAL #### [address] [id number] HCO3 (Bld) [Moles/Vol] 21 mmol/L Normal 21 - 32 [facility] Comment on above: Performed By: #### R ENAL #### [address] [id number] Potassium [Moles/Vol] 4.7 mmol/L Normal 3.5 - 5.3 [facility] Comment on above: Performed By: #### R ENAL #### [address] [id number] Protein [Mass/Vol] 6.7 g/dL Normal 6.4 - 8.2 [facility] Comment on above: Performed By: #### R ENAL #### [address] [id number] Sodium [Moles/Vol] 138 mmol/L Normal 136 - 145 [facility] Comment on above: Performed By: #### R ENAL #### [address] [id number] Urea nitrogen [Mass/Vol] 66 mg/dL High 6 - 23 [facility] Comment on above: Performed By: #### R ENAL #### [address] [id number] Covid 19 Resultson 2 SARS-CoV-2 (COVID-19) RNA [...] You may also be contacted by the [facility] to see if any of your close [...] or Naproxen (Aleve) can also be used. Aleg-czk-prlnjpv cough and cold medicines can be used according to the instructions on the package. Some plfq-jvu-xtpqtqt medicines also contain acetaminophen. Make sure you [...] water are not available, use alcohol-based hand industrial locomotive operator. Avoid touching your eyes, nose, and mouth [...] 24 shayne (more content not included)... Normal [facility] INFLUENZA A/B, COVID 2019 PC R,SYMPTOMATICon 03-04-2022 INFLUENZA A, PCR Not detected Normal Not Detected [facility] Comment on above: Result Comment: Resp iratory virus testing is performed routinely by PCR for Influenza A/B and RSV. Not Detected results do not preclude Influenza A/B or RSV infections since the adequacy of sample collection or low viral burden may impact the clinical sensitivity of this test method. Performed By: #### M G #### [address] [id number] INFLUENZA B, PCR Not detected Normal Not Detected [facility] Comment on above: Result Comment: Resp iratory virus testing is performed routinely by PCR for Influenza A/B and RSV. Not Detected results do not preclude Influenza A/B or RSV infections since the adequacy of sample collection or low viral burden may impact the clinical sensitivity of this test method. Performed By: #### M G #### [address] [id number] SARS-CoV-2 (COVID-19) RNA MIGUEL+probe Ql (Unsp spec) Not detected Normal Not Detected [facility] Comment on above: Result Comment: . This test has received [facility] Emergency Use Authorization (EUA) and has been verified by [facility]. This test is only authorized for the duration of time that circumstances exist to justify the authorization of the emergency use of in vitro diagnostic tests for the detection of SARS-CoV-2 virus and/or diagnosis of COVID-19 infection under section 564(b)(1) of the Act, 21 U.S.C. 360bbb-3(b)(1), unless the authorization is terminated or revoked sooner. [facility] is certified under CLIA-88 as qualified to perform high complexity testing. Testing is performed in the [facility] laboratory located at [address] [place], [place] [address]. SARS-CoV-2/Flu/RSV Multiplex Test: Fact sheet for providers: https://www.fda.gov/media/404230/download Fact sheet for patients: https://www.fda.gov/media/772002/download Performed By: #### M G #### [address] [id number] Lab Specimen Source Nasal, Nasopharyngeal Normal [facility] Comment on above: Performed By: #### M G #### [address] [id number] LACTATEon 03-04-2022 Lactate [Moles/Vol] 0.5 mmol/L Normal 0.4 - 2.0 [facility] Comment on above: Result Comment: Shelbie puncture immediately after or during the administration of Metamizole may lead to falsely low results. Testing should be performed immediately prior to Metamizole dosing. Performed By: #### G APC1 #### [address] [id number] LIPASEon 03-04-2022 Lipase [Catalytic activity/Vol] 79 U/L Normal 9 - 82 [facility] Comment on above: Result Comment: Shelbie puncture immediately after or during the administration of Metamizole may lead to falsely low results. Testing should be performed immediately prior to Metamizole dosing. L-wbheqv-o-benzoquinone imine (metabolite of Acetaminophen) will generate erroneously low results in samples for patients that have taken toxic doses of acetaminophen. Performed By: #### T PS2 #### [address] [id number] PT/INRon 03-04-2022 PT Coag (PPP) [Time] 12.3 s Normal 9.8 - 13.4 [facility] Comment on above: Performed By: #### G APC1 #### [address] [id number] PT, INR 1.1 Normal 0.9 - 1.1 [facility] Comment on above: Performed By: #### G APC1 #### [address] [id number] Provider Note - ED v3on 02-16 Provider [...] sick contacts. 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 Patient denies any chest pain or shortness [...] organomegaly; no hernia; normal bowel sounds; (-) [place] sign; (-) McBurneys sign; (bilateral +) CVA [...] mg ora (more content not included)... Normal [facility] Triage - EDon 03-04-2022 Triage - [...] obeys commands Best Verbal Response: (V5) oriented [place] Score: 15 Allergies: no Patient has homicidal [...] Reviewedyes HTN: Past Medical History, Active DTaP- Ykpwtkdpc-Pnrfqzs-ngbwf ular Pertussis: Immunizations, Active, 2019 SARS-CoV-2 (COVID-19): Immunizations, Active Electronic Signatures: Leanna Rider (STAFF N) (Signed 04-Mar-2022 08:28) Authored: Quick Triage, Risk Screens, Pain, Arrival, ABCD, Immunizations, Travel History, Chart Review, Scores, Past Medical History Last Updated: 04-Mar-2022 08:28 by Leanna Rider (STAFF N) Normal [facility] UA MICROSCOPICon 03-04-2022 BACTERIA 1+ /HPF Abnormal [facility] Comment on above: Performed By: #### R ENAL #### [address] [id number] HYALINE CAST OCC Abnormal [facility] Comment on above: Performed By: #### R ENAL #### [address] [id number] Mucus Ql (Urine sed) 1+ /LPF Normal [facility] Comment on above: Performed By: #### R ENAL #### [address] [id number] RBC 34 /HPF Abnormal 0-5 [facility] Comment on above: Performed By: #### R ENAL #### [address] [id number] WBC 2 /HPF Normal 0-5 [facility] Comment on above: Performed By: #### R ENAL #### [address] [id number] URINALYSIS WITH CULTURE IF I NDICATEDon 03-04-2022 Appearance (U) CLEAR Normal CLEAR [facility] Comment on above: Performed By: #### T PS2 #### [address] [id number] Bilirubin Ql (U) Negative Normal NEGATIVE [facility] Comment on above: Performed By: #### T PS2 #### [address] [id number] Color (U) STRAW Normal STRAW,YELLOW [facility] Comment on above: Performed By: #### T PS2 #### [address] [id number] Glucose Ql (U) Negative Normal NEGATIVE [facility] Comment on above: Performed By: #### T PS2 #### [address] [id number] Hemoglobin Ql (U) LARGE (3+) Abnormal NEGATIVE [facility] Comment on above: Performed By: #### T PS2 #### [address] [id number] Ketones Ql (U) Negative Normal NEGATIVE [facility] Comment on above: Performed By: #### T PS2 #### [address] [id number] Leukocyte esterase Test strip Ql (U) Negative Normal NEGATIVE [facility] Comment on above: Performed By: #### T PS2 #### [address] [id number] Nitrite Ql (U) Negative Normal NEGATIVE [facility] Comment on above: Performed By: #### T PS2 #### [address] [id number] pH (U) 5.0 [pH] Normal 5.0 - 8.0 [facility] Comment on above: Performed By: #### T PS2 #### [address] [id number] Protein Ql (U) >=300 + Abnormal NEGATIVE [facility] Comment on above: Performed By: #### T PS2 #### [address] [id number] Specific gravity (U) [Rel density] 1.020 Normal 1.005 - 1.035 [facility] Comment on above: Performed By: #### T PS2 #### [facility] [address] [place], [place] [phone] Urobilinogen (U) [Mass/Vol] mg/dL Normal 0.0 - 1.9 [facility] Comment on above: Performed By: #### T PS2 #### [address] [id number] Clinical Event Note-ED Post Discharge Result Follow Up: Atteon 02-22-2022 Clinical Event Note-ED Post Discharge Result Follow Up: Atte Clinical Event: Clinical Event Note: TopicED Post Discharge Result Follow Up: Attempt # 1, Complete : Wound: Group B strep, Staph Aureus Details ED Post-Discharge Team was notified of final results on this patient's wound culture. The patient was admitted to [facility] from 02/18[facility]33 to 02/21/22. Inpatient provider discharged patient on appropriate therapy. No further follow up needed from ED PD Team. If there are any other questions for the ED Post-Discharge Culture Follow Up Team, please contact [phone]. . Naomi Thomas PharmD, [facility] PGY1 Safety Counselor Meds Electronic Signatures: Naomi Thomas ([facility]) (Signed 22-Feb-2022 12:20) Authored: Clinical Event Note Nicki Vega (PharmD) (Signed 23-Feb-2022 08:19) Co-Signer: Clinical Event Note Last Updated: 23-Feb-2022 08:19 by Nicki Vega (PharmD) Normal [facility] CBCon 02-21-2022 Erythrocyte distribution width (RBC) [Ratio] 11.9 % Normal 11.5 - 14.5 [facility] Comment on above: Performed By: #### C BC ####[facility] [place], [place] [id number] Hematocrit (Bld) [Volume fraction] 24.8 % Low 41.0 - 52.0 [facility] Comment on above: Performed By: #### C BC ####[facility] [place], [place] [id number] Hemoglobin (Bld) [Mass/Vol] 8.1 g/dL Low 13.5 - 17.5 [facility] Comment on above: Performed By: #### C BC ####[facility] [place], [place] [id number] MCHC (RBC) [Mass/Vol] 32.7 g/dL Normal 32.0 - 36.0 [facility] Comment on above: Performed By: #### C BC ####[facility] [place], [place] [id number] MCV (RBC) [Entitic vol] 92 fL Normal 80 - 100 [facility] Comment on above: Performed By: #### C BC ####[facility] [place], [place] [id number] Platelets (Bld) [#/Vol] 293 10*3/uL Normal 150 - 450 [facility] Comment on above: Performed By: #### C BC ####[facility] [place], [place] [id number] RBC 2.69 x10E12/L Low 4.50 - 5.90 [facility] Comment on above: Performed By: #### C BC ####[facility] [place], [place] [id number] WBC (Bld) [#/Vol] 9.2 10*3/uL Normal 4.4 - 11.3 [facility] Comment on above: Performed By: #### C BC ####[facility] [place], [place] [id number] COAGULATION SCREENon 022 aPTT Coag (Bld) [Time] 33 s Normal 26 - 39 [facility] Comment on above: Result Comment: THE APTT IS NO LONGER USED FOR MONITORING UNFRACTIONATED HEPARIN THERAPY. FOR MONITORING HEPARIN THERAPY, USE THE HEPARIN ASSAY. Performed By: #### R ENAL #### [facility] [address] [place], [place] [phone] PT Coag (PPP) [Time] 12.1 s Normal 9.8 - 13.4 [facility] Comment on above: Performed By: #### R ENAL #### [address] [id number] PT, INR 1.0 Normal 0.9 - 1.1 [facility] Comment on above: Performed By: #### R ENAL #### [address] [id number] COMPREHENSIVE PANELon 2021 Albumin [Mass/Vol] 3.4 g/dL Normal 3.4 - 5.0 [facility] Comment on above: Performed By: #### R ENAL #### [address] [id number] ALP [Catalytic activity/Vol] 67 U/L Normal 33 - 120 [facility] Comment on above: Performed By: #### R ENAL #### [address] [id number] ALT [Catalytic activity/Vol] 5 U/L Low 10 - 52 [facility] Comment on above: Result Comment: Lalita ents treated with Sulfasalazine may generate falsely decreased results for ALT. Performed By: #### R ENAL #### [address] [phone] Anion gap [Moles/Vol] 15 mmol/L Normal 10 - 20 [facility] Comment on above: Performed By: #### R ENAL #### [address] [id number] AST [Catalytic activity/Vol] 9 U/L Normal 9 - 39 [facility] Comment on above: Performed By: #### R ENAL #### [address] [id number] Bilirubin [Mass/Vol] 0.3 mg/dL Normal 0.0 - 1.2 [facility] Comment on above: Performed By: #### R ENAL #### [address] [id number] Calcium [Mass/Vol] 8.6 mg/dL Normal 8.6 - 10.3 [facility] Comment on above: Performed By: #### R ENAL #### [address] [id number] Chloride [Moles/Vol] 108 mmol/L High 98 - 107 [facility] Comment on above: Performed By: #### R ENAL #### [address] [id number] Creatinine [Mass/Vol] 7.11 mg/dL High 0.50 - 1.30 [facility] Comment on above: Performed By: #### R ENAL #### [address] [id number] GFR/1.73 sq M.predicted among non-blacks MDRD (S/P/Bld) [Vol rate/Area] 10 mL/min/{1.73_m2} Abnormal >90 [facility] Comment on above: Result Comment: CALC ULATIONS OF ESTIMATED GFR ARE PERFORMED USING THE 2020 CKD-EPI STUDY REFIT EQUATION WITHOUT THE RACE VARIABLE FOR THE IDMS-TRACEABLE CREATININE METHODS. https://jasn.asnjournals.org/content//ASN.813254 8024 Performed By: #### R ENAL #### [address] [id number] Glucose [Mass/Vol] 84 mg/dL Normal 74 - 99 [facility] Comment on above: Performed By: #### R ENAL #### [address] [id number] HCO3 (Bld) [Moles/Vol] 22 mmol/L Normal 21 - 32 [facility] Comment on above: Performed By: #### R ENAL #### [address] [id number] Potassium [Moles/Vol] 4.9 mmol/L Normal 3.5 - 5.3 [facility] Comment on above: Performed By: #### R ENAL #### [address] [id number] Protein [Mass/Vol] 6.0 g/dL Low 6.4 - 8.2 [facility] Comment on above: Performed By: #### R ENAL #### [address] [id number] Sodium [Moles/Vol] 140 mmol/L Normal 136 - 145 [facility] Comment on above: Performed By: #### R ENAL #### [address] [id number] Urea nitrogen [Mass/Vol] 69 mg/dL High 6 - 23 [facility] Comment on above: Performed By: #### R ENAL #### [address] [id number] Consult-Infectious Diseaseon 02-21-2022 Consult-Infectious Disease Service: Service: [...] Known Allergies: Consult Status: Consult Order ID: [id number] Electronic Signatures: Phylicia Costello) (Signed 20-Feb-2022 23:53) Authored: Service, History of Present Illness, Review Family/Social History and ROS, Allergies, Assessment/Recommendati ons, Note Completion Last Updated: 20-Feb-2022 23:53 by Phylicia Costello () References: 1. Data Referenced From Consult-Podiatry 19-Feb-2022 16:[address] [facility] Daily Progress Note-Infectio us Diseaseon 02-21-2022 [...] 4. Objective Data: Objective Information: T PRBPMAPSpO2 [id number] 9% Date/Time02/21 12: 12: 12: 12: 20: [...] ----- Mn/Dy/Year TimeIntakeOutputNet Feb 20, 2022 10:00 [id number] Feb 20, 2022 2:00 [id number] The Intake and Output Totals for the last 24 hours are: IntakeOutputNet [id number] Recent Lab Results: Results: CBC: 02/21/2022 06:25 [...] 22-Feb-2022 20:22 by Phylicia Costello () Normal [facility] Daily Progress Note-Nephrolo benjamin 02-21-2022 Daily Progress Note-Nephrology Service: Nephrology Subjective Data: LAWSON DOYLE is a 21 year old Male who is Hospital Day # 4. Creatinine down slightly. Patient feels fine. No uremic type symptoms. Objective Data: Objective Information: T PRBPMAPSpO2 [id number] 9% Date/Time02/21 12: 12: 12: 12: 20: [...] ----- Mn/Dy/Year TimeIntakeOutputNet Feb 20, 2022 10:00 [id number] Feb 20, 2022 2:00 [id number] The Intake and Output Totals for the last 24 hours are: IntakeOutputNet [id number] Physical Exam by System: Constitutional: awake/alert/oriented x3, [...] Hours BIOLOGICALS: 1. Epoetin Trey (Non-ESRD) Injectable: 87447 unit(s) SubCutaneous Weekly CARDIOVASCULAR AGENTS: 1. cloNIDine [...] Coreg Norvasc (more content not included)... Normal [facility] Daily Progress Note-Podiatry on 02-21-2022 Daily [...] diarrhea. Objective Data: Objective Information: T PRBPMAPSpO2 [id number] 99% Date/Time02/20 20: 20: 20: 20: 20: [...] ----- Mn/Dy/Year TimeIntakeOutputNet Feb 20, 2022 10:00 [id number] Feb 20, 2022 2:00 [id number] The Intake and Output Totals for the last 24 hours are: IntakeOutputNet [id number] T PRBPMAPSpO2 [id number] 99% Date/Time02/21 20: 20: 20: 20: 20: [...] with podi (more content not included)... Normal [facility] Discharge [id number] Discharge Profile2 Discharge Orders: Anticipated Discharge Date: Anticipated Discharge [id number] Problem List: Additional Dx: Benign hypertension with [...] stage 5 Call to Schedule in2 weeks [address] Phone [phone] Electronic Signatures: Brook Carrasco) (Signed 21-Feb-2022 16:10) Authored: Discharge Orders, Provider FINAL REVIEW of Orders Darryn Grant) (Signed 21-Feb-2022 13:30) Authored: Discharge Orders, Appointments, Gold Form - Franchise Sales Representative Summary Last Updated: 21-Feb-2022 16:10 by Brook Carrasco) Normal [facility] HEPATITIS B SURF ABon 2021 HEP B SURF AB 4.6 mIU/mL Normal <10 [facility] Comment on above: Result Comment: INTE RPRETIVE CRITERIA: <10 mIU/mL....NONREACTIVE >=10 mIU/mL...REACTIVE . Biotin interference may cause falsely decreased results. Patients taking a Biotin dose of up to 5 mg/day should refrain from taking Biotin for 24 hours before sample collection. Providers may contact their local laboratory for further information. Performed By: #### H BAB3 ####[id number] [place] [address] Lab [address] Normal [facility] Comment on above: Performed By: #### H BAB3 ####[id number] [place] [address] Performed By: #### R ENAL #### [facility] [address] [place], [place] [id number] HEPATITIS B SURFACE AGon HEP.B SURFACE AG Non-Reactive Normal NONREACTIVE [facility] Comment on above: Result Comment: Biot in interference may cause falsely decreased results. Patients taking a Biotin dose of up to 5 mg/day should refrain from taking Biotin for 24 hours before sample collection. Providers may contact their local laboratory for further information. Performed By: #### R ENAL #### [facility] [address] [place], [place] [id number] MAGNESIUMon 02-21-2022 Magnesium [Mass/Vol] 1.72 mg/dL Normal 1.60 - 2.40 [facility] Comment on above: Performed By: #### M G ####[facility] [place], [place] [id number] Order Reconciliationon 02-21 Order Reconciliation Page 1 [...] tab(s) orally once (at bedtime) -Insomnia Normal [facility] PHOSPHORUSon 02-21-2022 Phosphate [Mass/Vol] 5.8 mg/dL High 2.5 - 4.9 [facility] Comment on above: Result Comment: The performance characteristics of phosphorus testing in heparinized plasma have been validated by the individual laboratory site where testing is performed. Testing on heparinized plasma is not approved by the FDA; however, such approval is not necessary. Performed By: #### M G #### [address] [id number] RENAL FUNCTION PANELon 02-[address] [facility] Comment on above: Order Comment: TEST RENAL FUNCTION PANEL WAS CANCELLED, 02/21/2022 06:55 CMP and PHOS on other order. Performed By: #### R ENAL #### [address] [phone] ANION GAP Canceled Normal [facility] Comment on above: Order Comment: TEST RENAL FUNCTION PANEL WAS CANCELLED, 02/21/2022 06:55 CMP and PHOS on other order. Performed By: #### R ENAL #### [address] [id number] BICARBONATE Canceled Normal [facility] Comment on above: Order Comment: TEST RENAL FUNCTION PANEL WAS CANCELLED, 02/21/2022 06:55 CMP and PHOS on other order. Performed By: #### R ENAL #### [address] [id number] CALCIUM Canceled Normal [facility] Comment on above: Order Comment: TEST RENAL FUNCTION PANEL WAS CANCELLED, 02/21/2022 06:55 CMP and PHOS on other order. Performed By: #### R ENAL #### [address] [id number] CHLORIDE Canceled Normal [facility] Comment on above: Order Comment: TEST RENAL FUNCTION PANEL WAS CANCELLED, 02/21/2022 06:55 CMP and PHOS on other order. Performed By: #### R ENAL #### [address] [id number] CREATININE Canceled Normal [facility] Comment on above: Order Comment: TEST RENAL FUNCTION PANEL WAS CANCELLED, 02/21/2022 06:55 CMP and PHOS on other order. Performed By: #### R ENAL #### [address] [id number] eGFR FEMALE Canceled Normal [facility] Comment on above: Order Comment: TEST RENAL FUNCTION PANEL WAS CANCELLED, 02/21/2022 06:55 CMP and PHOS on other order. Result Comment: CALC ULATIONS OF ESTIMATED GFR ARE PERFORMED USING THE 2020 CKD-EPI STUDY REFIT EQUATION WITHOUT THE RACE VARIABLE FOR THE IDMS-TRACEABLE CREATININE METHODS. https://jasn.asnjournals.org/content/earlyASN.672799 9415 Performed By: #### R ENAL #### [address] [id number] eGFR MALE Canceled Normal [facility] Comment on above: Order Comment: TEST RENAL FUNCTION PANEL WAS CANCELLED, 02/21/2022 06:55 CMP and PHOS on other order. Result Comment: CALC ULATIONS OF ESTIMATED GFR ARE PERFORMED USING THE 2020 CKD-EPI STUDY REFIT EQUATION WITHOUT THE RACE VARIABLE FOR THE IDMS-TRACEABLE CREATININE METHODS. https://jasn.asnjournals.org/content/earlyASN.955845 7306 Performed By: #### R ENAL #### [address] [id number] GLUCOSE Canceled Normal [facility] Comment on above: Order Comment: TEST RENAL FUNCTION PANEL WAS CANCELLED, 02/21/2022 06:55 CMP and PHOS on other order. Performed By: #### R ENAL #### [address] [id number] PHOSPHORUS Canceled Normal [facility] Comment on above: Order Comment: TEST [...] necessary. Performed By: #### R ENAL #### [address] [id number] POTASSIUM Canceled Normal [facility] Comment on above: Order Comment: TEST RENAL FUNCTION PANEL WAS CANCELLED, 02/21/2022 06:55 CMP and PHOS on other order. Performed By: #### R ENAL #### [address] [id number] SODIUM Canceled Normal [facility] Comment on above: Order Comment: TEST RENAL FUNCTION PANEL WAS CANCELLED, 02/21/2022 06:55 CMP and PHOS on other order. Performed By: #### R ENAL #### [address] [id number] UREA NITROGEN Canceled Normal [facility] Comment on above: Order Comment: TEST RENAL FUNCTION PANEL WAS CANCELLED, 02/21/2022 06:55 CMP and PHOS on other order. Performed By: #### R ENAL #### [address] [id number] SHAKIR + MAGALY PANELon 02-20-2022 SHAKIR PATTERN HOMOGENEOUS Normal [facility] Comment on above: Performed By: #### A NAP2 ####[id number] [place] [address] SHAKIR TITER 1:[address] [facility] Comment on above: Performed By: #### A NAP2 ####[id number] [place] [address] SHAKIR WITH REFLEX TO MAGALY Positive Abnormal NEGATIVE [facility] Comment on above: Result Comment: The Antinuclear Antibody (SHAKIR) test was performed using indirect immunofluorescence assay with HEp-2 cells slide. Performed By: #### A NAP2 ####[id number] [place] [address] CBCon 02-20-2022 Erythrocyte distribution width (RBC) [Ratio] 11.9 % Normal 11.5 - 14.5 [facility] Comment on above: Performed By: #### R ENAL #### [address] [id number] Hematocrit (Bld) [Volume fraction] 24.4 % Low 41.0 - 52.0 [facility] Comment on above: Performed By: #### R ENAL #### [address] [id number] Hemoglobin (Bld) [Mass/Vol] 8.1 g/dL Low 13.5 - 17.5 [facility] Comment on above: Performed By: #### R ENAL #### [address] [id number] MCHC (RBC) [Mass/Vol] 33.2 g/dL Normal 32.0 - 36.0 [facility] Comment on above: Performed By: #### R ENAL #### [address] [id number] MCV (RBC) [Entitic vol] 92 fL Normal 80 - 100 [facility] Comment on above: Performed By: #### R ENAL #### [address] [id number] Platelets (Bld) [#/Vol] 278 10*3/uL Normal 150 - 450 [facility] Comment on above: Performed By: #### R ENAL #### [address] [id number] RBC 2.65 x10E12/L Low 4.50 - 5.90 [facility] Comment on above: Performed By: #### R ENAL #### [address] [id number] WBC (Bld) [#/Vol] 12.9 10*3/uL High 4.4 - 11.3 [facility] Comment on above: Performed By: #### R ENAL #### [address] [id number] COMPREHENSIVE PANELon 2021 Albumin [Mass/Vol] 3.4 g/dL Normal 3.4 - 5.0 [facility] Comment on above: Performed By: #### C MP ####[address] [id number] ALP [Catalytic activity/Vol] 65 U/L Normal 33 - 120 [facility] Comment on above: Performed By: #### C MP ####[address] [id number] ALT [Catalytic activity/Vol] 6 U/L Low 10 - 52 [facility] Comment on above: Result Comment: Lalita ents treated with Sulfasalazine may generate falsely decreased results for ALT. Performed By: #### C MP ####[address] [place], [place] [id number] Anion gap [Moles/Vol] 16 mmol/L Normal 10 - 20 [facility] Comment on above: Performed By: #### C MP ####[address] [id number] AST [Catalytic activity/Vol] 11 U/L Normal 9 - 39 [facility] Comment on above: Performed By: #### C MP ####[address] [id number] Bilirubin [Mass/Vol] 0.4 mg/dL Normal 0.0 - 1.2 [facility] Comment on above: Performed By: #### C MP ####[address] [id number] Calcium [Mass/Vol] 8.5 mg/dL Low 8.6 - 10.3 [facility] Comment on above: Performed By: #### C MP ####[address] [id number] Chloride [Moles/Vol] 106 mmol/L Normal 98 - 107 [facility] Comment on above: Performed By: #### C MP ####[address] [id number] Creatinine [Mass/Vol] 7.91 mg/dL High 0.50 - 1.30 [facility] Comment on above: Performed By: #### C MP ####[address] [id number] GFR/1.73 sq M.predicted among non-blacks MDRD (S/P/Bld) [Vol rate/Area] 9 mL/min/{1.73_m2} Abnormal >90 [facility] Comment on above: Result Comment: CALC ULATIONS OF ESTIMATED GFR ARE PERFORMED USING THE 2020 CKD-EPI STUDY REFIT EQUATION WITHOUT THE RACE VARIABLE FOR THE IDMS-TRACEABLE CREATININE METHODS. https://jasn.asnjournals.org/content/early/ASN.727651 9867 Performed By: #### C MP ####[address] [id number] Glucose [Mass/Vol] 99 mg/dL Normal 74 - 99 [facility] Comment on above: Performed By: #### C MP ####[address] [id number] HCO3 (Bld) [Moles/Vol] 22 mmol/L Normal 21 - 32 [facility] Comment on above: Performed By: #### C MP ####[address] [id number] Potassium [Moles/Vol] 4.9 mmol/L Normal 3.5 - 5.3 [facility] Comment on above: Performed By: #### C MP ####[address] [id number] Protein [Mass/Vol] 6.0 g/dL Low 6.4 - 8.2 [facility] Comment on above: Performed By: #### C MP ####[address] [id number] Sodium [Moles/Vol] 139 mmol/L Normal 136 - 145 [facility] Comment on above: Performed By: #### C MP ####[address] [id number] Urea nitrogen [Mass/Vol] 70 mg/dL High 6 - 23 [facility] Comment on above: Performed By: #### C MP ####[address] [id number] Clinical Event Note-ED Post Discharge Result Follow [...] emergency room. The patient was admitted to [facility]). The Culture Callback Team will turn over care to the inpatient providers. Please refer to inpatient pharmacist team if providers would like recommendations regarding these results. No further follow up is necessary. If there are any other questions for the ED Post-Discharge Culture Follow Up Team, please contact [phone]. . Rudy Bowden PharmD, [facility] Clinical Pharmacist - Culture Callback Pharmacist [facility] Electronic Signatures: Nicki Vega (PharmBrady) (Signed 21-Feb-2022 08:16) Co-Signer: Clinical Event Note Rudy Bowden ([facility]) (Signed 20-Feb-2022 13:32) Authored: Clinical Event Note Last Updated: 21-Feb-2022 08:16 by Nicki Vega (PharmBrady) Normal [facility] Daily Progress Note - Critic al Care-SICUon 02-20-2022 Daily Progress Note - Critical Care-SICU Service: Critical Care Service: ServiceSICU Subjective Data: ID Statement: LAWSON DOYLE is a 21 year old Male who is Hospital Day # 3 and ICU Day #3. Alert and oriented x3. Off nicardipine infusion. Tolerating BP medications. Renal function slightly worse. Objective Data: Objective Information T PRBPMAPSpO2 [id number] % Date/Time02/20 6:00104/23 9: 9: 9:00104/23 9:00104/23 9:00 Range(36.4C - 36.8C ) (78 - 122 ) (10 - 28 ) (118 - 185 )/ (36 - 78 ) (71 - 111 ) (92% - 97% ) Pain reported at 02/20 8:00: 0 = None ---- Intake and Output ----- Mn/Dy/Year TimeIntakeOutputNet Feb 19, 2022 10:00 [id number] Feb 19, 2022 2:00 [id number] The Intake and Output Totals for the last 24 hours are: [facility] [id number] Date: Weight/Scale Type: 19-Feb-2022 06:0082.3 kg / standing 18-Feb-2022 21:2384.4 kg / bed 18-Feb-2022 13:5286 kg ---- Intake and Output ----- [facility], 2022 10:00 [id number] Feb 19, 2022 2:00 [id number] The Intake and Output Totals for the last 24 hours are: [facility] [id number] Physical Exam by System: Neurological: AAOx3. Moves [...] Coreg Norvasc (more content not included)... Normal [facility] Daily Progress Note - Critical Care-SICU This report has been cancelled. Normal [facility] Daily Progress Note-Nephrolo gyon 02-20-2022 Daily Progress Note-Nephrology Service: Nephrology Subjective Data: LAWSON DOYLE is a 21 year old Male who is Hospital Day # 3. bp good off cardene feels well no uremic symptoms. Objective Data: Objective Information: T PRBPMAPSpO2 Value36.84881725/743511 % Date/Time02/20 10: 11: 11: 11: 11: 11:00 Range(36.4C - 36.8C ) (72 - 122 ) (10 - 28 ) (118 - 185 )/ (36 - 78 ) (71 - 111 ) (92% - 97% ) Pain reported at 02/20 8:00: 0 = None ---- Intake and Output ----- Mn/Dy/Year TimeIntakeOutputNet Feb 19, 2022 10:00 [id number] Feb 19, 2022 2:00 [id number] The Intake and Output Totals for the last 24 hours are: IntakeOutputNet [id number] Physical Exam by System: Constitutional: awake/alert/oriented x3, [...] Updated: 20-Feb-2022 11:55 by Darryn Grant) Normal [facility] Discharge Planning [id number] 1 04-23-2021 Discharge Planning Note2 Discharge Planning: Planned Dispositionhome Discharge DestinationHome Anticipated Discharge [id number] Discharge Planning 02/20/22 Maximino RYAN RN TCC [...] Ramos RN TCC Assessment: Discharge Planning Assessment [id number] Primary Contact Name and NumberEduardo (Father) [phone](1) Lives Withgrandparent(s); parent(s)(1) Living Arrangementshouse(1) Stated Reason for AdmissionPain in right great toe with sore throat and ear pain.(1) [place] Resource/Environmental Concernsnone(1) [place]) Services Anticipated at Transitionnon(1) Nursing Checklist: Lines/Cathetersremoved/ appropriate for next level of care Discharge Med Rec Reconciled with Suad Patient has Prescriptionsyes Transportation for Discharge Confirmedyes Follow up Reviewedyes Discharge Instructions Reviewed WithPatient Discharge Instructions Outcomeverbalize recall/understanding Discharge Documentation: Discharged Accompanied Byfriend Transportation Methodprivate car Discharge Modewheelchair Code StatusCode Status order at time of discharge: Full Code Discharge Order Writtenyes [place] DNR Form Sent with Patient and/or Familyn/a Valuables/Medications/B elongings Returnedyes Final Disposition.Home Electronic Signatures: Leslie Ryan (CLIN COOR) (Signed 20-Feb-2022 17:46) Authored: Discharge Planning, Assessment Michell Ramos (TRUCK ENGINE TECHNICIAN) (Signed 21-Feb-2022 16:37) Authored: Discharge Planning Alexa Zaragoza (RN) (Signed 21-Feb-2022 16:22) Authored: Discharge Planning, Nursing Checklist, Discharge Documentation Last Updated: 21-Feb-2022 16:37 by Michell Ramos (TRUCK ENGINE TECHNICIAN) References: 1. Data Referenced From Patient Profile - Adult v2" 18-Feb-2022 21:[address] [facility] MAGNESIUMon 02-20-2022 Magnesium [Mass/Vol] 1.75 mg/dL Normal 1.60 - 2.40 [facility] Comment on above: Performed By: #### M G #### [facility] [address] [place], [place] [id number] PHOSPHORUSon 02-20-2022 Phosphate [Mass/Vol] 5.3 mg/dL High 2.5 - 4.9 [facility] Comment on above: Result Comment: The performance characteristics of phosphorus testing in heparinized plasma have been validated by the individual laboratory site where testing is performed. Testing on heparinized plasma is not approved by the FDA; however, such approval is not necessary. Performed By: #### P HOS ####[facility] [place], [place] [id number] ALBUMIN, URINE SPOTon 2021 ALBUMIN,URINE 1331.0 mg/L Normal Not Established [facility] Comment on above: Performed By: #### A LBSP ####[facility] [place], [place] [id number] ALBUMIN/CREAT RATIO 2549.8 ug/mg integrated specialist High 0.0 - 30.0 [facility] Comment on above: Performed By: #### A LBSP ####[address] [place], [place] [id number] SHAKIR + MAGALY PANELon 02-19-2022 ANTI-CENTROMERE <0.[address] [facility] Comment on above: Result Comment: REF VALUES < 1.0 = NEGATIVE >=1.0 = POSITIVE Performed By: #### A NAP2 ####[id number] [place] [address] ANTI-CHROMATIN <0.[address] [facility] Comment on above: Result Comment: REF VALUES < 1.0 = NEGATIVE >=1.0 = POSITIVE Performed By: #### A NAP2 ####[id number] [place] [address] ANTI-DNA [DS] <1.[address] [facility] Comment on above: Result Comment: REF VALUES NEGATIVE: <= 4 IU/ML EQUIVOCAL: 5- 9 IU/ML POSITIVE: >=10 IU/ML Performed By: #### A NAP2 ####[id number] [place] [address] ANTI-TONE-[address] <[address] [facility] Comment on above: Result Comment: REF VALUES < 1.0 = NEGATIVE >=1.0 = POSITIVE Performed By: #### A NAP2 ####[id number] [place] [address] ANTI-RIBOSOMAL P 0.3 AI Normal [facility] Comment on above: Result Comment: REF VALUES < 1.0 = NEGATIVE >=1.0 = POSITIVE Performed By: #### A NAP2 ####[id number] [place] [address] ANTI-AIR TANK ASSEMBLER 0.[address] [facility] Comment on above: Result Comment: REF VALUES < 1.0 = NEGATIVE >=1.0 = POSITIVE Performed By: #### A NAP2 ####[id number] [place] [address] ANTI-SCL-[address] <[address] [facility] Comment on above: Result Comment: REF VALUES < 1.0 = NEGATIVE >=1.0 = POSITIVE Performed By: #### A NAP2 ####[id number] [place] [address] ANTI-SM <0.[address] [facility] Comment on above: Result Comment: REF VALUES < 1.0 = NEGATIVE >=1.0 = POSITIVE Performed By: #### A NAP2 ####[id number] [place] [address] ANTI-SM/AIR TANK ASSEMBLER <0.[address] [facility] Comment on above: Result Comment: REF VALUES < 1.0 = NEGATIVE >=1.0 = POSITIVE Performed By: #### A NAP2 ####[id number] [place] [address] ANTI-SSA <0.[address] [facility] Comment on above: Result Comment: REF VALUES < 1.0 = NEGATIVE >=1.0 = POSITIVE Performed By: #### A NAP2 ####[id number] [place] [address] ANTI-SSB <0.[address] [facility] Comment on above: Result Comment: REF VALUES < 1.0 = NEGATIVE >=1.0 = POSITIVE Performed By: #### A NAP2 ####[id number] [place] [address] C3 COMPLEMENTon 02-19-2022 C3 COMPLEMENT 123 mg/dL Normal 87 - 200 [facility] Comment on above: Performed By: #### M G #### [facility] [address] [place], [place] [id number] C4 COMPLEMENTon 02-19-2022 C4 COMPLEMENT 48 mg/dL Normal 10 - 50 [facility] Comment on above: Performed By: #### C 4 ####[id number] [place] [address] CBCon 02-19-2022 Erythrocyte distribution width (RBC) [Ratio] 11.8 % Normal 11.5 - 14.5 [facility] Comment on above: Performed By: #### C BC ####[facility] [place], [place] [id number] Hematocrit (Bld) [Volume fraction] 25.4 % Low 41.0 - 52.0 [facility] Comment on above: Performed By: #### C BC ####[facility] [place], [place] [address] Hemoglobin (Bld) [Mass/Vol] 8.6 g/dL Low 13.5 - 17.5 [facility] Comment on above: Performed By: #### C BC ####[facility] [place], [place] [address] MCHC (RBC) [Mass/Vol] 33.9 g/dL Normal 32.0 - 36.0 [facility] Comment on above: Performed By: #### C BC ####[facility] [place], [place] [address] MCV (RBC) [Entitic vol] 90 fL Normal 80 - 100 [facility] Comment on above: Performed By: #### C BC ####[facility] [place], [place] [address] Platelets (Bld) [#/Vol] 283 10*3/uL Normal 150 - 450 [facility] Comment on above: Performed By: #### C BC ####[facility] [place], [place] [id number] RBC 2.83 x10E12/L Low 4.50 - 5.90 [facility] Comment on above: Performed By: #### C BC ####[address] [id number] WBC (Bld) [#/Vol] 13.1 10*3/uL High 4.4 - 11.3 [facility] Comment on above: Performed By: #### C BC ####[address] [id number] COMPREHENSIVE PANELon 2021 Albumin [Mass/Vol] 3.7 g/dL Normal 3.4 - 5.0 [facility] Comment on above: Performed By: #### R ENAL #### [address] [id number] ALP [Catalytic activity/Vol] 72 U/L Normal 33 - 120 [facility] Comment on above: Performed By: #### R ENAL #### [address] [id number] ALT [Catalytic activity/Vol] 9 U/L Low 10 - 52 [facility] Comment on above: Result Comment: Lalita ents treated with Sulfasalazine may generate falsely decreased results for ALT. Performed By: #### R ENAL #### [address] [id number] Anion gap [Moles/Vol] 16 mmol/L Normal 10 - 20 [facility] Comment on above: Performed By: #### R ENAL #### [address] [id number] AST [Catalytic activity/Vol] 10 U/L Normal 9 - 39 [facility] Comment on above: Performed By: #### R ENAL #### [address] [id number] Bilirubin [Mass/Vol] 0.3 mg/dL Normal 0.0 - 1.2 [facility] Comment on above: Performed By: #### R ENAL #### [address] [id number] Calcium [Mass/Vol] 8.5 mg/dL Low 8.6 - 10.3 [facility] Comment on above: Performed By: #### R ENAL #### [address] [id number] Chloride [Moles/Vol] 106 mmol/L Normal 98 - 107 [facility] Comment on above: Performed By: #### R ENAL #### [address] [id number] Creatinine [Mass/Vol] 6.88 mg/dL High 0.50 - 1.30 [facility] Comment on above: Performed By: #### R ENAL #### [address] [id number] GFR/1.73 sq M.predicted among non-blacks MDRD (S/P/Bld) [Vol rate/Area] 11 mL/min/{1.73_m2} Abnormal >90 [facility] Comment on above: Result Comment: CALC ULATIONS OF ESTIMATED GFR ARE PERFORMED USING THE 2020 CKD-EPI STUDY REFIT EQUATION WITHOUT THE RACE VARIABLE FOR THE IDMS-TRACEABLE CREATININE METHODS. https://jasn.asnjournals.org/content//ASN.540123 6830 Performed By: #### R ENAL #### [address] [id number] Glucose [Mass/Vol] 109 mg/dL High 74 - 99 [facility] Comment on above: Performed By: #### R ENAL #### [address] [id number] HCO3 (Bld) [Moles/Vol] 23 mmol/L Normal 21 - 32 [facility] Comment on above: Performed By: #### R ENAL #### [address] [id number] Potassium [Moles/Vol] 4.9 mmol/L Normal 3.5 - 5.3 [facility] Comment on above: Performed By: #### R ENAL #### [address] [id number] Protein [Mass/Vol] 6.4 g/dL Normal 6.4 - 8.2 [facility] Comment on above: Performed By: #### R ENAL #### [address] [id number] Sodium [Moles/Vol] 140 mmol/L Normal 136 - 145 [facility] Comment on above: Performed By: #### R ENAL #### [address] [phone] Urea nitrogen [Mass/Vol] 70 mg/dL High 6 - 23 [facility] Comment on above: Performed By: #### R ENAL #### [address] [id number] Consult-Nephrologyon 022 Consult-Nephrology Service: Service: Nephrology Consult: [...] then. 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 He has a prescription for lisinopril that [...] Known Allergies: Objective: Objective Information: T PRBPMAPSpO2 [id number] 5% Date/Time02/19 10: 10: 10: 10: 10: [...] 05:03:00 R (more content not included)... Normal [facility] Consult-Podiatryon Consult-Podiatry Service: Service: Podiatry Consult: [...] nail border (more content not included)... Normal [facility] DRUG SCREEN,URINEon 02-20-20 22 AMPHETAMINE SCREEN,U Negative Normal NEGATIVE [facility] Comment on above: Result Comment: CUTO FF LEVEL: 500 NG/ML Cross-reactivity has been reported with high concentrations of the following drugs: buproprion, chloroquine, chlorpromazine, ephedrine, mephentermine, fenfluramine, phentermine, phenylpropanolamine, pseudoephedrine, and propranolol. Performed By: #### D RUG3 ####[facility] [place], [place] [id number] BARBITURATES SCREEN,U Negative Normal NEGATIVE [facility] Comment on above: Result Comment: CUTO FF LEVEL: 200 NG/ML Performed By: #### D RUG3 ####[address] [id number] BENZODIAZEPINES SCREEN,U Negative Normal NEGATIVE [facility] Comment on above: Result Comment: CUTO FF LEVEL: 200 NG/ML Performed By: #### D RUG3 ####[address] [id number] CANNABINOIDS SCREEN,U Negative Normal NEGATIVE [facility] Comment on above: Result Comment: CUTO FF LEVEL: 50 NG/ML Performed By: #### D RUG3 ####[address] [id number] COCAINE METABOLITE SCREEN,U Negative Normal NEGATIVE [facility] Comment on above: Result Comment: CUTO FF LEVEL: 150 NG/ML Performed By: #### D RUG3 ####[address] [id number] DRUG SCREEN COMMENT SEE BELOW Normal [facility] Comment on above: Result Comment: Drug screen results are presumptive and should not be used to assess compliance with prescribed medication. Contact the performing [facility] laboratory to add-on definitive confirmatory testing if [...] medical directors. Performed By: #### D RUG3 ####[address] [id number] FENTANYL SCREEN,URINE Negative Normal NEGATIVE [facility] Comment on above: Result Comment: CUTO FF LEVEL: 5 NG/ML Performed By: #### D RUG3 ####[address] [id number] METHADONE SCREEN,U Negative Normal NEGATIVE [facility] Comment on above: Result Comment: CUTO FF LEVEL: 150 NG/ML The metabolite E-papef-mzqttlztyigmor (LAAM) is not detected by this method in concentrations that would be found in the urine of patients on LAAM therapy. Performed By: #### D RUG3 ####[address] [id number] OPIATES SCREEN,U Negative Normal NEGATIVE [facility] Comment on above: Result Comment: CUTO FF LEVEL: 300 NG/ML The opiate screen does not detect fentanyl, meperidine, or tramadol. Oxycodone is not consistently detected (refer to Oxycodone Screen, Urine result). Performed By: #### D RUG3 ####[address] [id number] OXYCODONE SCREEN,U Negative Normal NEGATIVE [facility] Comment on above: Result Comment: CUTO FF LEVEL: 100 NG/ML This test will accurately detect both oxycodone and oxymorphone. Performed By: #### D RUG3 ####[address] [id number] PCP SCREEN,U Negative Normal NEGATIVE [facility] Comment on above: Result Comment: CUTO FF LEVEL: 25 NG/ML Cross-reactivity has been reported with dextromethorphan. Performed By: #### D RUG3 ####[address] [id number] Daily Progress Note - Critic al Care-NSUon 02-19-2022 Daily Progress Note - Critical Care-NSU Service: Critical Care Service: ServiceNSU Subjective Data: ID Statement: LAWSON DOYLE is a 21 year old Male who is Hospital Day # 2 and ICU Day #2. Recent events noted. Pt doing better. Off Nicardipine drip. On oral BP Meds. Appreciate Renal Consultation. Objective Data: Objective Information T PRBPMAPSpO2 [id number] 5% Date/Time02/19 18: 18: 18: 18: 18: 18:00 Range(36.4C - 37C ) (78 - 138 ) (14 - 31 ) (118 - 232 )/ (36 - 137 ) (71 - 115 ) (92% - 100% ) Highest temp of 37 C was recorded at 02/18 20:35 Pain reported at 02/19 8:00: 0 = None ---- Intake and Output ----- Mn/Dy/[facility] Feb 19, 2022 2:00 [id number] Feb 19, 2022 6:00 [id number] The Intake and Output Totals for the last 24 hours are: [facility] [id number] Date: Weight/Scale Type: 19-Feb-2022 06:0082.3 kg / standing 18-Feb-2022 21:2384.4 kg / bed 18-Feb-2022 13:5286 kg ---- Intake and Output ----- Mn/Dy/[facility] Feb 19, 2022 2:00 [id number] Feb 19, 2022 6:00 [id number] The Intake and Output Totals for the last 24 hours are: IntakeCell Therapy [id number] Physical Exam by System: Neurological: alert and [...] does no (more content not included)... Normal [facility] ELECTROLYTE, URINE SPOTon CHLORIDE,URINE SPOT 78 mmol/L Normal Not Established [facility] Comment on above: Performed By: #### M G #### [facility] [address] [place], [place] [id number] CHLORIDE/CREAT RATIO 149 mmol/g Creat Normal 23 - 275 [facility] Comment on above: Performed By: #### M G #### [facility] [address] [place], [place] [id number] POT/CREAT RATIO 56 mmol/g Creat Normal Not Established [facility] Comment on above: Performed By: #### M G #### [address] [id number] POTASSIUM,URINE SPOT 29 mmol/L Normal Not Established [facility] Comment on above: Performed By: #### M G #### [address] [id number] Sodium (U) [Moles/Vol] 76 mmol/L Normal Not Established [facility] Comment on above: Performed By: #### M G #### [address] [id number] SODIUM/CREAT RATIO 146 mmol/g Creat Normal Not Established [facility] Comment on above: Performed By: #### M G #### [address] [id number] UREA NITROGEN,URINE 295 mg/dL Normal Not Established [facility] Comment on above: Performed By: #### M G #### [address] [id number] UREA NITROGEN/CREAT RATIO 5.7 g/g Creat Normal Not Established [facility] Comment on above: Performed By: #### M G #### [address] [id number] OSMOLALITY,URINE SPOT 307 mOsm/kg Normal 200 - 1200 [facility] Comment on above: Performed By: #### M G #### [address] [id number] EOSINOPHIL SMEARon 2 Bacteria identified Cx Nom (Unsp spec) RARE Normal [facility] Comment on above: Performed By: #### R ENAL #### [address] [id number] EOSINOPHILS RARE Normal [facility] Comment on above: Performed By: #### R ENAL #### [address] [id number] NEUTROPHILS MODERATE Normal [facility] Comment on above: Performed By: #### R ENAL #### [address] [id number] Lab Specimen Source Urine Normal [facility] Comment on above: Performed By: #### R ENAL #### [address] [id number] FERRITINon 02-19-2022 FERRITIN 205 ug/L Normal 20 - 300 [facility] Comment on above: Performed By: #### F ERRI ####[id number] [place] [address] FOLATE, SERUMon 02-19-2022 Folate [Mass/Vol] 11.1 ng/mL Normal >5.0 [facility] Comment on above: Result Comment: Low <3.4 Borderline 3.4-5.0 Normal >5.0 . Patients receiving more than 5 mg/day of biotin may have interference in test results. A sample should be taken no sooner than eight hours after previous dose. Contact the testing laboratory for additional information. Performed By: #### F OLA2 ####[facility] [place], [place] [id number] IRON + TIBCon 02-19-2022 % SATURATION 11 % Low 25 - 45 [facility] Comment on above: Performed By: #### I RONT ####[address] [id number] TIBC 275 ug/dL Normal 240 - 445 [facility] Comment on above: Performed By: #### I RONT ####[address] [id number] Iron [Mass/Vol] 29 ug/dL Low 35 - 150 [facility] Comment on above: Performed By: #### I RONT ####[address] [id number] LIPID PANEL (CORONARY RISK 2 )on 02-19-2022 Cholesterol [Mass/Vol] 170 mg/dL Normal 0 - 199 [facility] Comment on above: Result Comment: . [...] dosing. Performed By: #### M G #### [address] [id number] Cholesterol in HDL [Mass/Vol] 34.4 mg/dL Abnormal [facility] Comment on above: Result Comment: . AGE VERY LOW LOW NORMAL HIGH 0-19 Y < 35 < 40 40-45 ---- 20-24 Y ---- < 40 >45 ---- >24 Y ---- < 40 40-60 >60 . Performed By: #### M G #### [address] [id number] Cholesterol in LDL [Mass/Vol] 110 mg/dL Normal 0 - 119 [facility] Comment on above: Result Comment: . NEAR BORD AGE DESIRABLE OPTIMAL HIGH HIGH VERY HIGH 0-19 Y 0 - 109 --- 110-129 >/= 130 ---- 20-24 Y 0 - 119 --- 120-159 >/= 160 ---- >24 Y 0 - 99 100-129 130-159 160-189 >/=190 . Performed By: #### M G #### [address] [id number] Cholesterol in VLDL [Mass/Vol] 25 mg/dL Normal 0 - 40 [facility] Comment on above: Performed By: #### M G #### [address] [id number] Cholesterol.total/Cho lesterol in HDL [Mass ratio] 4.9 {ratio} Normal [facility] Comment on above: Result Comment: REF VALUES DESIRABLE < 3.4 HIGH RISK > 5.0 Performed By: #### M G #### [address] [id number] NON-HDL CHOLESTEROL 136 mg/dL Normal 0 - 149 [facility] Comment on above: Result Comment: AGE DESIRABLE BORDERLINE HIGH HIGH VERY HIGH 0-19 Y 0 - 119 120 - 144 >/= 145 >/= 160 20-24 Y 0 - 149 150 - 189 >/= 190 ---- >24 Y 30 MG/DL ABOVE LDL CHOLESTEROL GOAL . Performed By: #### M G #### [address] [id number] Triglyceride [Mass/Vol] 127 mg/dL Normal 0 - 149 [facility] Comment on above: Result Comment: . [...] dosing. Performed By: #### M G #### [address] [id number] MAGNESIUMon 02-19-2022 Magnesium [Mass/Vol] 1.79 mg/dL Normal 1.60 - 2.40 [facility] Comment on above: Performed By: #### M G #### [address] [id number] PARATHYROID HORMONE,INTACTon 02-19-2022 PARATHYROID HORMONE,INTACT 353.9 pg/mL High 18.5 - 88.0 [facility] Comment on above: Performed By: #### P TH ####[id number] [place] [address] PHOSPHORUSon 02-19-2022 Phosphate [Mass/Vol] 5.1 mg/dL High 2.5 - 4.9 [facility] Comment on above: Result Comment: The performance characteristics of phosphorus testing in heparinized plasma have been validated by the individual laboratory site where testing is performed. Testing on heparinized plasma is not approved by the FDA; however, such approval is not necessary. Performed By: #### M G #### [facility] [address] [place], [place] [id number] PROT.ELECTRO,URN PATH REVIEW on 02-19-2022 PATH REVIEW-UPE Canceled Normal [facility] Comment on above: Order Comment: TEST PROT.ELECTRO,URN PATH REVIEW WAS CANCELLED, 02/19/2022 11:[id number]. Result Comment: By h er/his signature above, the Pathologist listed as making the final interpretation certifies that she/he has personally reviewed this case. Performed By: #### P R14 ####[id number] [place] [address] PROTEIN ELECTROPHORESIS, RAN DOMon 02-19-2022 ALBUMIN % Canceled Normal [facility] Comment on above: Order Comment: TEST PROTEIN ELECTROPHORESIS, RANDOM WAS CANCELLED, 02/19/2022 11:56 QNS,PLEASE RESUBMIT.. Performed By: #### E LUSP ####[facility] [place], [place] [id number] [place] [address] ALPHA 1 GLOBULIN % Canceled Normal [facility] Comment on above: Order Comment: TEST PROTEIN ELECTROPHORESIS, RANDOM WAS CANCELLED, 02/19/2022 11:56 QNS,PLEASE RESUBMIT.. Performed By: #### E LUSP ####[facility] [place], [place] [id number] [place] [address] ALPHA 2 GLOBULIN % Canceled Normal [facility] Comment on above: Order Comment: TEST PROTEIN ELECTROPHORESIS, RANDOM WAS CANCELLED, 02/19/2022 11:56 QNS,PLEASE RESUBMIT.. Performed By: #### E LUSP ####[address] [id number] [place] [address] BETA GLOBULIN % Canceled Normal [facility] Comment on above: Order Comment: TEST PROTEIN ELECTROPHORESIS, RANDOM WAS CANCELLED, 02/19/2022 11:56 QNS,PLEASE RESUBMIT.. Performed By: #### E LUSP ####[address] [id number] [place] [address] GAMMA GLOBULIN % Canceled Normal [facility] Comment on above: Order Comment: TEST PROTEIN ELECTROPHORESIS, RANDOM WAS CANCELLED, 02/19/2022 11:56 QNS,PLEASE RESUBMIT.. Performed By: #### E LUSP ####[address] [id number] [place] [address] [address]PRE[address]anc[address] Normal [facility] Comment on above: Order Comment: TEST PROTEIN ELECTROPHORESIS, RANDOM WAS CANCELLED, 02/19/2022 11:56 QNS,PLEASE RESUBMIT.. Performed By: #### E LUSP ####[address] [id number] [place] [address] TOTAL PROT,URINE SPOT Canceled High 5 - 25 [facility] Comment on above: Order Comment: TEST PROTEIN ELECTROPHORESIS, RANDOM WAS CANCELLED, 02/19/2022 11:56 QNS,PLEASE RESUBMIT.. Performed By: #### E LUSP ####[address] [id number] [place] [address] SEDIMENTATION RATE, ERYTHROC YTEon 02-19-2022 SEDIMENTATION RATE, ERYTHROCYTE 69 mm/h High 0 - 15 [facility] Comment on above: Result Comment: Toni brown note new reference ranges as of 07/25/2021. Ran on alternate instrument Reference Ranges: Males: 0-15 Females: 0-20 Children under 18: 0-10 Performed By: #### E SRWS ####[address] [id number] TOTAL PROTEIN, URINE SPOTon 02-19-2022 T. PROTEIN/CREAT RATIO 3.85 mg/mg Creat High 0.00 - 0.17 [facility] Comment on above: Performed By: #### T PS2 #### [address] [id number] TOTAL PROT,URINE SPOT 201 mg/dL High 5 - 25 [facility] Comment on above: Performed By: #### T PS2 #### [address] [id number] CREATININE,URINE 52.2 mg/dL Normal 20.0 - 370.0 [facility] Comment on above: Performed By: #### T PS2 #### [address] [id number] Performed By: #### A LBSP ####[address] [id number] Performed By: #### M G #### [address] [id number] TSH WITH REFLEX TO FREE T4 I F ABNORMALon 02-19-2022 TSH Qn 1.45 m[IU]/L Normal 0.44 - 3.98 [facility] Comment on above: Result Comment: TSH testing is performed using different testing methodology at [facility] than at other [facility]. Direct result comparisons should only be made within the same method. Performed By: #### M G #### [address] [id number] UA MICROSCOPICon 02-19-2022 Mucus Ql (Urine sed) 1+ /LPF Normal [facility] Comment on above: Performed By: #### M G #### [address] [id number] RBC 58 /HPF Abnormal 0-5 [facility] Comment on above: Performed By: #### M G #### [address] [id number] WBC 1 /HPF Normal 0-5 [facility] Comment on above: Performed By: #### M G #### [address] [id number] URIC ACIDon 02-19-2022 Urate [Mass/Vol] 9.0 mg/dL High 4.0 - 7.5 [facility] Comment on above: Result Comment: Shelbie puncture immediately after or during the administration of Metamizole may lead to falsely low results. Testing should be performed immediately prior to Metamizole dosing. Performed By: #### U ANKUSH #### [address] [id number] URINALYSIS WITH CULTURE IF I NDICATEDon 02-19-2022 Appearance (U) CLEAR Normal CLEAR [facility] Comment on above: Performed By: #### P TINR #### [address] [id number] Bilirubin Ql (U) Negative Normal NEGATIVE [facility] Comment on above: Performed By: #### P TINR #### [address] [id number] Color (U) STRAW Normal STRAW,YELLOW [facility] Comment on above: Performed By: #### P TINR #### [address] [id number] Glucose Ql (U) Negative Normal NEGATIVE [facility] Comment on above: Performed By: #### P TINR #### [address] [id number] Hemoglobin Ql (U) MODERATE (2+) Abnormal NEGATIVE [facility] Comment on above: Performed By: #### P TINR #### [address] [id number] Ketones Ql (U) Negative Normal NEGATIVE [facility] Comment on above: Performed By: #### P TINR #### [address] [id number] Leukocyte esterase Test strip Ql (U) Negative Normal NEGATIVE [facility] Comment on above: Performed By: #### P TINR #### [address] [id number] Nitrite Ql (U) Negative Normal NEGATIVE [facility] Comment on above: Performed By: #### P TINR #### [address] [id number] pH (U) 7.0 [pH] Normal 5.0 - 8.0 [facility] Comment on above: Performed By: #### P TINR #### [address] [id number] Protein Ql (U) >=300 + Abnormal NEGATIVE [facility] Comment on above: Performed By: #### P TINR #### [address] [id number] Specific gravity (U) [Rel density] 1.025 Normal 1.005 - 1.035 [facility] Comment on above: Performed By: #### P TINR #### [address] [id number] Urobilinogen (U) [Mass/Vol] mg/dL Normal 0.0 - 1.9 [facility] Comment on above: Performed By: #### P TINR #### [address] [id number] RENAL BILATon 02-19-2022 US RENAL BILAT Patient Name: LAWSON DOYLE STUDY: Renal ultrasound dated 02/19/2022. INDICATION: DENNY COMPARISON: Ultrasound dated 10/23/2016. ACCESSION NUMBER(S): [id number] ORDERING CLINICIAN: FÁTIMA COOPER TECHNIQUE: Mutliplanar grayscale [...] Electronically signed by: CARLOS RUGGIERO MD Normal [facility] VITAMIN B12on 02-19-2022 Cobalamin (Vitamin B12) [Mass/Vol] 344 pg/mL Normal 211 - 911 [facility] Comment on above: Performed By: #### V TB12 ####[facility] [place], [place] [id number] Admission Risk Screen - Adul ton 02-18-2022 [...] AlertFor Ebola-like Symptoms: Isolate Patient and Notify Provider/Inventory Control Coordinator For Contact: Notify Provider/Inventory Control Coordinator Advance Directive: Advance Directive/DNRno Advance Directive Information [...] instruction; written material Cultural Considerationsnone Developmental Considerationsnone Evangelical Considerationsnone Learning Assessment (Other Learner): Other learner availableno Depression Screen: During the past month, have you often been bothered by feeling down, depressed or hopelessno During the past month, have you often had little interest or pleasure in doing thingsno Have you had any thoughts of harming anyone elseno (1) [place] Suicide: Risk Screen Not Applicable/Able to Answerable to be screened In the Past Month: Have you wished you were or could go to sleep and not wake upno(1) In the Past Month: Have you had any actual thoughts of killing yourself no(1) Lifetime: Have you ever done, started to do, or prepared to do anything to end your lifeno [place] Suicide Risknegative Adult Nutrition Screen: Have you [...] Spiritual Screen: Are there any cultural, spiritual, mormonism practices/values/needs that are important for us to knowno CAGE: Is this an (more content not included)... Normal [facility] BASIC METABOLIC PANELon 12-0 -2021 Anion gap [Moles/Vol] 16 mmol/L Normal 10 - 20 [facility] Comment on above: Performed By: #### T PS2 #### [address] [id number] Calcium [Mass/Vol] 8.7 mg/dL Normal 8.6 - 10.3 [facility] Comment on above: Performed By: #### T PS2 #### [address] [id number] Chloride [Moles/Vol] 102 mmol/L Normal 98 - 107 [facility] Comment on above: Performed By: #### T PS2 #### [address] [id number] Creatinine [Mass/Vol] 6.42 mg/dL High 0.50 - 1.30 [facility] Comment on above: Performed By: #### T PS2 #### [address] [id number] GFR/1.73 sq M.predicted among non-blacks MDRD (S/P/Bld) [Vol rate/Area] 12 mL/min/{1.73_m2} Abnormal >90 [facility] Comment on above: Result Comment: CALC ULATIONS OF ESTIMATED GFR ARE PERFORMED USING THE 2020 CKD-EPI STUDY REFIT EQUATION WITHOUT THE RACE VARIABLE FOR THE IDMS-TRACEABLE CREATININE METHODS. https://jasn.asnjournals.org/content/early//ASN.632640 2793 Performed By: #### T PS2 #### [address] [id number] Glucose [Mass/Vol] 96 mg/dL Normal 74 - 99 [facility] Comment on above: Performed By: #### T PS2 #### [address] [id number] HCO3 (Bld) [Moles/Vol] 25 mmol/L Normal 21 - 32 [facility] Comment on above: Performed By: #### T PS2 #### [address] [id number] Potassium [Moles/Vol] 5.0 mmol/L Normal 3.5 - 5.3 [facility] Comment on above: Performed By: #### T PS2 #### [address] [id number] Sodium [Moles/Vol] 138 mmol/L Normal 136 - 145 [facility] Comment on above: Performed By: #### T PS2 #### [address] [id number] Urea nitrogen [Mass/Vol] 68 mg/dL High 6 - 23 [facility] Comment on above: Performed By: #### T PS2 #### [address] [id number] BLOOD CULTURE, BACTERIALon 1 04-21-2021 BLOOD CULTURE, BACTERIAL PATIENT: LAWSON DOYLE LOCATION: [address]#: [id number] : 89 AGE: SEX: M ORDERED BY: VELMA JOSEPH SOURCE: Blood COLLECTED: 02/18/22 17:37 ANTIBIOTICS AT YANN.: RECEIVED : 02/18/22 22:49 SITE: R E S U L T S BLOOD CULTURE, BACTERIAL FINAL 02/22/22 23:42 No Growth at 1 days No Growth at 2 days No Growth at 3 days NO GROWTH at 4 days - FINAL REPORT Normal [facility] Comment on above: Performed By: #### G APC1 #### [address] [id number] BLOOD CULTURE, BACTERIAL PATIENT: LAWSON DOYLE LOCATION: [place] DEY#: [id number] : 89 AGE: SEX: M ORDERED BY: VELMA JOSEPH SOURCE: Blood COLLECTED: 02/18/22 16:31 ANTIBIOTICS AT YANN.: RECEIVED : 02/18/22 22:51 SITE: R E S U L T S BLOOD CULTURE, BACTERIAL FINAL 02/22/22 23:42 No Growth at 1 days No Growth at 2 days No Growth at 3 days NO GROWTH at 4 days - FINAL REPORT Normal [facility] Comment on above: Performed By: #### G APC1 #### [address] [id number] BNPon 02-18-2022 Natriuretic peptide B (Bld) [Mass/Vol] 149 pg/mL High 0 - 99 [facility] Comment on above: Result Comment: . <1 00 pg/mL - Heart failure unlikely 100-299 pg/mL - Intermediate probability of acute heart . failure exacerbation. Correlate with clinical . context and patient history. >=300 pg/mL - Heart Failure likely. Correlate with clinical . context and patient history. BNP testing is performed using different testing methodology at [facility] than at other [facility]. Direct result comparisons should only be made within the same method. Performed By: #### T PS2 #### [address] [id number] CBC AND DIFFERENTIALon 02-18 % AUTOMATED IMMATURE GRAN 0.4 % Normal 0.0 - 0.9 [facility] Comment on above: Result Comment: Litzy ture Granulocyte Count (IG) includes promyelocytes, myelocytes and metamyelocytes but does not include bands. Percent differential counts (%) should be interpreted in the context of the absolute cell counts (cells/L). Performed By: #### T PS2 #### [address] [id number] Basophils (Bld) [#/Vol] 0.04 10*3/uL Normal 0.00 - 0.10 [facility] Comment on above: Performed By: #### T PS2 #### [address] [id number] Basophils/100 WBC (Bld) 0.3 % Normal 0.0 - 2.0 [facility] Comment on above: Performed By: #### T PS2 #### [address] [id number] Eosinophils (Bld) [#/Vol] 0.73 10*3/uL High 0.00 - 0.70 [facility] Comment on above: Performed By: #### T PS2 #### [address] [id number] Eosinophils/100 WBC (Bld) 4.6 % Normal 0.0 - 6.0 [facility] Comment on above: Performed By: #### T PS2 #### [address] [id number] Erythrocyte distribution width (RBC) [Ratio] 11.8 % Normal 11.5 - 14.5 [facility] Comment on above: Performed By: #### T PS2 #### [address] [id number] Hematocrit (Bld) [Volume fraction] 28.3 % Low 41.0 - 52.0 [facility] Comment on above: Performed By: #### T PS2 #### [address] [id number] Hemoglobin (Bld) [Mass/Vol] 9.6 g/dL Low 13.5 - 17.5 [facility] Comment on above: Performed By: #### T PS2 #### [address] [id number] Lymphocytes (Bld) [#/Vol] 2.00 10*3/uL Normal 1.20 - 4.80 [facility] Comment on above: Performed By: #### T PS2 #### [address] [id number] Lymphocytes/100 WBC (Bld) 12.7 % Normal 13.0 - 44.0 [facility] Comment on above: Performed By: #### T PS2 #### [address] [id number] MCHC (RBC) [Mass/Vol] 33.9 g/dL Normal 32.0 - 36.0 [facility] Comment on above: Performed By: #### T PS2 #### [address] [id number] MCV (RBC) [Entitic vol] 90 fL Normal 80 - 100 [facility] Comment on above: Performed By: #### T PS2 #### [address] [id number] Monocytes (Bld) [#/Vol] 0.78 10*3/uL Normal 0.10 - 1.00 [facility] Comment on above: Performed By: #### T PS2 #### [address] [id number] Monocytes/100 WBC (Bld) 4.9 % Normal 2.0 - 10.0 [facility] Comment on above: Performed By: #### T PS2 #### [address] [id number] Neutrophils (Bld) [#/Vol] 12.18 10*3/uL High 1.20 - 7.70 [facility] Comment on above: Performed By: #### T PS2 #### [address] [id number] Neutrophils/100 WBC (Bld) 77.1 % Normal 40.0 - 80.0 [facility] Comment on above: Performed By: #### T PS2 #### [address] [id number] Platelets (Bld) [#/Vol] 310 10*3/uL Normal 150 - 450 [facility] Comment on above: Performed By: #### T PS2 #### [address] [id number] RBC 3.13 x10E12/L Low 4.50 - 5.90 [facility] Comment on above: Performed By: #### T PS2 #### [address] [id number] WBC (Bld) [#/Vol] 15.8 10*3/uL High 4.4 - 11.3 [facility] Comment on above: Performed By: #### T PS2 #### [address] [id number] CREATINE KINASEon 02-18-2022 CK [Catalytic activity/Vol] 111 U/L Normal 0 - 325 [facility] Comment on above: Performed By: #### P TINR #### [address] [id number] Covid 19 Resultson 2 SARS-CoV-2 (COVID-19) RNA [...] You may also be contacted by the [facility] to see if any of your close [...] or Naproxen (Aleve) can also be used. Emot-oqa-qfhaiwt cough and cold medicines can be used according to the instructions on the package. Some gjkx-lgj-zrjovpq medicines also contain acetaminophen. Make sure you [...] water are not available, use alcohol-based hand industrial locomotive operator. Avoid touching your eyes, nose, and mouth [...] 24 shayne (more content not included)... Normal [facility] GROUP A STREP,PCRon 02-19-20 GROUP A STREP,PCR Not detected Normal Not Detected [facility] Comment on above: Result Comment: This test was performed utilizing an FDA- cleared rapid nucleic acid amplification by PCR to qualitatively detect Group A Streptococci from throat swab specimens without the need for culture confirmation of negative results. Performed By: #### G APC1 #### [address] [id number] Lab Specimen Source Throat Normal [facility] Comment on above: Performed By: #### G APC1 #### [address] [id number] HEPATIC FUNCTION PANELon Bilirubin.indirect [Mass/Vol] 0.0 mg/dL Normal 0.0 - 0.3 [facility] Comment on above: Result Comment: This is a corrected result. Previous value was - 0.0, verified at 02/18/2022 21:25 Performed By: #### P TINR #### [address] [id number] Albumin [Mass/Vol] 4.0 g/dL Normal 3.4 - 5.0 [facility] Comment on above: Performed By: #### P TINR #### [address] [id number] ALP [Catalytic activity/Vol] 84 U/L Normal 33 - 120 [facility] Comment on above: Performed By: #### P TINR #### [address] [id number] ALT [Catalytic activity/Vol] 11 U/L Normal 10 - 52 [facility] Comment on above: Result Comment: Lalita ents treated with Sulfasalazine may generate falsely decreased results for ALT. Performed By: #### P TINR #### [address] [id number] AST [Catalytic activity/Vol] 10 U/L Normal 9 - 39 [facility] Comment on above: Performed By: #### P TINR #### [address] [id number] Bilirubin [Mass/Vol] 0.2 mg/dL Normal 0.0 - 1.2 [facility] Comment on above: Performed By: #### P TINR #### [address] [id number] Protein [Mass/Vol] 7.0 g/dL Normal 6.4 - 8.2 [facility] Comment on above: Performed By: #### P TINR #### [address] [id number] INFLUENZA A/B, COVID 2019 PC R,SYMPTOMATICon 02-18-2022 INFLUENZA A, PCR Not detected Normal Not Detected [facility] Comment on above: Result Comment: Resp iratory virus testing is performed routinely by PCR for Influenza A/B and RSV. Not Detected results do not preclude Influenza A/B or RSV infections since the adequacy of sample collection or low viral burden may impact the clinical sensitivity of this test method. Performed By: #### P TINR #### [address] [id number] INFLUENZA B, PCR Not detected Normal Not Detected [facility] Comment on above: Result Comment: Resp iratory virus testing is performed routinely by PCR for Influenza A/B and RSV. Not Detected results do not preclude Influenza A/B or RSV infections since the adequacy of sample collection or low viral burden may impact the clinical sensitivity of this test method. Performed By: #### P TINR #### [address] [id number] SARS-CoV-2 (COVID-19) RNA MIGUEL+probe Ql (Unsp spec) Not detected Normal Not Detected [facility] Comment on above: Result Comment: . This test has received FDA Emergency Use Authorization (EUA) and has been verified by [facility]. This test is only authorized for the duration of time that circumstances exist to justify the authorization of the emergency use of in vitro diagnostic tests for the detection of SARS-CoV-2 virus and/or diagnosis of COVID-19 infection under section 564(b)(1) of the Act, 21 U.S.C. 360bbb-3(b)(1), unless the authorization is terminated or revoked sooner. [facility] is certified under CLIA-88 as qualified to perform high complexity testing. Testing is performed in the [facility] laboratory located at [address] [place] [address], [facility]35. SARS-CoV-2/Flu/RSV Multiplex Test: Fact sheet for providers: https://www.fda.gov/media/285014/download Fact sheet for patients: https://www.fda.gov/media/000316/download Performed By: #### P TINR #### [address] [id number] Lab Specimen Source Nasal, Nasopharyngeal Normal [facility] Comment on above: Performed By: #### P TINR #### [address] [id number] LACTATEon 02-18-2022 Lactate [Moles/Vol] 0.5 mmol/L Normal 0.4 - 2.0 [facility] Comment on above: Result Comment: Shelbie puncture immediately after or during the administration of Metamizole may lead to falsely low results. Testing should be performed immediately prior to Metamizole dosing. Performed By: #### P TINR #### [address] [id number] MISCELLANEOUS CULT./SM.BACT. on 02-18-2022 MISCELLANEOUS CULT./SM.BACT. PATIENT: LAWSON DOYLE LOCATION: [address]#: [id number] : 89 AGE: SEX: M ORDERED BY: [...] DOSE DEPENDENT NS=NONSUSCEPTIBLE X=REPORTED IN ERROR Normal [facility] Comment on above: Performed By: #### G APC1 #### [facility] [address] [facility], [place] [phone] PT/INRon 02-18-2022 PT Coag (PPP) [Time] 10.9 s Normal 9.8 - 13.4 [facility] Comment on above: Performed By: #### Juju G #### [facility] [address] [facility], [place] [id number] PT, INR 0.9 Normal 0.9 - 1.1 [facility] Comment on above: Performed By: #### M G #### [facility] [address] [place], [place] [phone] Patient Profile - Adult v2on 02-18-2022 Patient Profile - Adult v2 Profile: Initial Info: How to be AddressedCurtis Spoken Language PreferredEnglish Source of Informationpatient Stated Reason for AdmissionPain in right great toe with sore throat and ear pain. Primary Contact Name and NumberEduardo (Father) [phone] Wants Family/Rep Notified of Admissionno Notify PCPdo not notify PCP Informed of Patient Visiting Rightsyes Limitations on Visitors/Phone Callsnone [place]rived [place] Patient Belongingsremains with patient Patient Belongings Remaining with Patientclothing; cell phone/electronics Medications Brought to Hospitalno General Health: Weight in kg84.4 kilogram(s) Weight in ifv726 pound(s) Weight Methodactual (measured) Scale Typebed Height [...] Arrangementshouse Services Anticipated at Transitionnone Anticipated Transition [place] Significant IndicatorsComplete Information Review: Allergies, Home Meds [...] From 1. Vital Signs 18-Feb-2022 13:[address] [facility] Provider Note - ED v3on 12-0 [...] virus te (more content not included)... Normal [facility] TROPONIN I, HIGH SENSITIVITY on 02-18-2022 TROPONIN I, HIGH SENSITIVITY 19 ng/L Normal 0 - 20 [facility] Comment on above: Result Comment: . [...] performed using a different testing methodology at [facility] than at other [facility]. Direct result comparisons should only be made within the same method. Performed By: #### M G #### [address] [id number] TROPONIN I, HIGH SENSITIVITY 19 ng/L Normal 0 - 20 [facility] Comment on above: Result Comment: . [...] performed using a different testing methodology at [facility] than at other [facility]. Direct result comparisons should only be made within the same method. Performed By: #### R ENAL #### [address] [id number] TROPONIN I, HIGH SENSITIVITY 20 ng/L Normal 0 - 20 [facility] Comment on above: Result Comment: . [...] performed using a different testing methodology at [facility] than at other [facility]. Direct result comparisons should only be made within the same method. Performed By: #### U ANKUSH #### [address] [id number] Triage - EDon 02-18-2022 Triage - ED [...] obeys commands Best Verbal Response: (V5) oriented [place] Score: 15 Patient has homicidal thoughts: no [...] Last Updated: 18-Feb-2022 19:37 by Edmund BarnesRN) [facility] CT GUIDED NEEDLE PLACEMENTon 06-08-2017 CT GUIDED NEEDLE PLACEMENT DATE OF EXAM: Jun 08 2017 11:08AMCLINICAL HISTORY/ Name: MANISH DOYLEUDY:REJI Garcia RENAL BIOPSY; 06/08/2017 11:08 amINDICATION:Hematuria, see order.COMPARISON:None.A CCESSION NUMBER(S):[id number] LUCERO CLINICIAN:DARRYN CHENEY:FAYE NT:The procedure, its indication, [...] pole renal cortical biopsy. Normal [facility] PERCUTANEOUS RENAL BIOPSYon 06-08-2017 PERCUTANEOUS RENAL BIOPSY DATE OF EXAM: Jun 08 2017 11:08AMCLINICAL HISTORY/ Name: LAWSON DOYLESTUDY:REJI S RENAL BIOPSY; 06/08/2017 11:08 amINDICATION:Hematuria, see order.COMPARISON:None.A CCESSION NUMBER(S):[id number] LUCERO CLINICIAN:DARRYN CHENEY:FAYE NT:The procedure, its indication, [...] pole renal cortical biopsy. Normal [facility] Pathology ([facility])on 06-08-2017 Pathology ([facility]) Copy To: DARRYN GRANT MD FINAL SURGICAL PATHOLOGY [id number] FINAL DIAGNOSISRIGHT RENAL BIOPSY: SPECIMEN ANALYSIS PERFORMED AT [facility] SEE REPORT BELOWCLINICAL HISTORY:ALPORT SYNDROME, HTN, HEMATURIAOPERATION:CT GUIDED RENAL BIOPSY RIGHT LOWER LOBESPECIMEN(S):(A) KIDNEY BIOPSY, RIGHT, SEND OUT, RIGHT LOWER LOBEPerformed at [facility], [address] [place] [id number] DESCRIPTION:Received fresh, in saline, labeled with the patient's name, hospital number,and "R Renal Bx", are two cylindrical, white to fraser to pale red, soft tissuefragments. They measure 1.1 x 0.05 x 0.05 cm and 1.1 x 0.05 x 0.05 cm. Nosections are submitted; for gross identification only. [facility] of AnatomicPathology for immunohistochemistry, electron microscopy, and light microscopystudies.TASCO NSULTING COMMENT:Signed Out by:RENÉ ZHENG M.D.Reported: 06/15/2017 Normal [facility] Comment on above: Performed By: #### 6 [id number] ####[facility] [address] [place] [address] CBCon 06-07-2017 Erythrocyte distribution width Auto Ratio (RBC) 12.0 % Normal 12.0-15.4 [facility] Comment on above: Performed By: #### 6 [id number] ####[facility] [address] [place] [address] Hematocrit Auto Volume Fraction (Bld) 41.7 % Normal 37.0-49.0 [facility] Health care Comment on above: Performed By: #### 6 [id number] ####[facility] I[address] [place] [address] Hemoglobin mass conc (Bld) 14.0 g/dL Normal 13.2-15.6 [facility] Comment on above: Performed By: #### 6 [id number] ####[facility] [address] [place] [address] MCH Auto Entitic mass (RBC) 31.1 pg Normal 25.0-35.0 [facility] Comment on above: Performed By: #### 6 [id number] ####[facility] [address] [facility] [place] [address] MCHC Auto mass conc (RBC) 33.6 g/dL Normal 32.0-35.9 [facility] Healthcare Comment on above: Performed By: #### 6 [id number] ####[facility] [address]sb[address] [place] [place] [address] MCV Auto Entitic volume (RBC) 92.7 fL Normal 80.0-100.0 [facility] Healthcare Comment on above: Performed By: #### 6 [id number] ####[facility] [address]wi[address] [place] [address] NRBC Absolute 0.00 10*3/uL Normal [facility] Healt hcare Comment on above: Performed By: #### 6 855527 ####[facility] Ufv[address] [place] [address] NRBC Automated 0.0 /100{WBCs} Normal [facility] Comment on above: Performed By: #### 6 [id number] ####[facility] [address]yv[address] [place] [place] [address] Platelet mean volume Auto Entitic volume (Bld) 10.0 fL Normal 9.9-12.1 [facility] Healthcare Comment on above: Performed By: #### 6 [id number] ####[facility] [address] [place] [address] Platelets Auto #/vol (Bld) 293 10*3/uL Normal 155-404 [facility] Healthcare Comment on above: Performed By: #### 6 216941 ####[facility] [address] [place] [address] RBC Auto #/vol (Bld) 4.50 10*6/uL Normal 4.50-5.30 [facility] Comment on above: Performed By: #### 6 [id number] ####[facility] [address] [place] [address] RDW SD 40.7 fL Normal 39.3-48.6 [facility] Healthcare Comment on above: Performed By: #### 6 933768 ####[facility] Wjg[address] [place] [address] WBC Auto #/vol (Bld) 9.3 10*3/uL Normal 4.5-13.5 [facility] Comment on above: Performed By: #### 6 136038 ####[facility] [address] [facility] [place] [address] Partial Thromboplastin Timeo n 06-07-2017 aPTT Coag time (Bld) 30.3 s Normal 25.0-36.0 [facility] Comment on above: Result Comment: PLEAmy BROWN NOTE NEW REFERENCE RANGE EFFECTIVE 2017.The APTT is no longer used for monitoringUnfractionated Heparin Therapy.For monitoring Heparin Therapy, use theHeparin Assay. Performed By: #### 6 [id number] ####[facility] [address] [facility] [place] [place] [address] Prothrombin Timeon 8 INR Coag RelTime (PPP) 0.92 {INR} Normal 0.90-1.10 [facility] Comment on above: Result Comment: TONI BROWN NOTE NEW REFERENCE RANGE EFFECTIVE 2017 Performed By: #### 6 [id number] ####[facility] [address] [place] [address] Prothrombin time (PT) Coag time (PPP) 10.2 s Normal 9.8-12.7 [facility] Comment on above: Result Comment: TONI BRONW NOTE NEW REFERENCE RANGE EFFECTIVE 2017 Performed By: #### 6 [id number] ####[facility] [address] [facility] [place] [address] Renal Function Panelon 05-28 Albumin mass conc 4.1 g/dL Normal 3.4-5.0 [facility] Comment on above: Performed By: #### 6 [id number] ####[facility] [address] [facility] [place] [address] Anion gap 3 molar conc 10 mmol/L Normal 10-20 [facility] Comment on above: Performed By: #### 6 441195 ####[facility] [address] [place] [address] Calcium mass conc 9.6 mg/dL Normal 8.5-10.7 [facility] Comment on above: Performed By: #### 6 [id number] ####[facility] [address] [place] [address] Chloride molar conc 104 mmol/L Normal 98-107 [facility] Comment on above: Performed By: #### 6 618191 ####[facility] [address] [facility] [place] [address] Creatinine mass conc 1.05 mg/dL Normal 0.50-1.30 [facility] Comment on above: Performed By: #### 6 610343 ####[facility] Nlh[address] [place] [address] GFR/1.73 sq M.predicted MDRD vol rate/area mL/min/{1.73_m2} Normal [facility] Comment on above: Result Comment: Inte rpretation for Chronic Kidney Disease:Stages 1&2 >60 Healthy or potential kidney damage.Mild decrease of GFR.Stage 3 30-59 Moderate decrease of GFR.Stage 4 15-29 Severe decrease of GFR.Stage 5 <15 Kidney failure or on dialysis. Performed By: #### 6 806857 ####[facility] [address]kg[address] [place] [address] Glucose mass conc 94 mg/dL Normal 70-100 [facility] Comment on above: Performed By: #### 6 [id number] ####[facility] Mlz[address] [place] [address] HCO3 molar conc (Bld) 31 mmol/L Normal 21-32 [facility] Comment on above: Performed By: #### 6 088153 ####[facility] [address] [facility] [address] Phosphate mass conc 2.9 mg/dL Normal 2.5-4.9 [facility] Comment on above: Performed By: #### 6 363524 ####[facility] [address] [facility] [place] [address] Potassium molar conc 3.9 mmol/L Normal 3.5-5.1 [facility] Comment on above: Performed By: #### 6 912904 ####[facility] [address] [place] [address] Sodium molar conc 141 mmol/L Normal 136-145 [facility] Comment on above: Performed By: #### 6 457482 ####[facility] [address] [place] [address] Urea nitrogen mass conc 16 mg/dL Normal 6-23 [facility] Comment on above: Performed By: #### 6 474971 ####[facility] [address] [place] [address] Urea nitrogen/Creatinine mass ratio 15 mg/mg Normal 5-25 [facility] Comment on above: Performed By: #### 6 762089 ####[facility] [address] [place] [address] Urinalysis with Reflex Cultu reon 05-28-2017 Appearance Clear Normal Clear [facility] Comment on above: Performed By: #### 6 771077 ####[facility] [address] [place] [address] Ascorbic Acid Negative Normal Negative [facility] Comment on above: Performed By: #### 6 061340 ####[facility] [address] [place] [address] Automated Urine Microscopy Performed Normal [facility] Comment on above: Performed By: #### 6 851347 ####[facility] [address] [place] [address] Bacteria Rare Normal None [facility] Comment on above: Performed By: #### 6 517691 ####[facility] [address] [place] [address] Bilirubin Negative Normal Negative [facility] Comment on above: Performed By: #### 6 560484 ####[facility] [address] [place] [address] Blood Large Abnormal Negative [facility] Comment on above: Performed By: #### 6 966785 ####[facility] [address] [place] [address] Color Yellow Normal [facility] Comment on above: Performed By: #### 6 047887 ####[facility] [address] [place] [address] Glucose Negative Normal Negative [facility] Comment on above: Performed By: #### 6 818047 ####[facility] [address] [place] [address] Ketones Negative Normal Negative [facility] Comment on above: Performed By: #### 6 440722 ####[facility] [address] [place] [address] Leukocytes Esterase Negative Normal Negative [facility] Comment on above: Performed By: #### 6 037968 ####[facility] [address] [place] [address] Nitrite Negative Normal Negative [facility] Comment on above: Performed By: #### 6 292108 ####[facility] [address] [place] [address] pH 7.0 Normal 5.0-9.0 [facility] Comment on above: Performed By: #### 6 137950 ####[facility] [address] [place] [address] Protein mass conc 100 mg/dL Abnormal Negative [facility] Comment on above: Performed By: #### 6 988895 ####[facility] [address] [place] [address] RBC 34 /[HPF] Normal 0-3 [facility] Comment on above: Performed By: #### 6 769937 ####[facility] [address] [place] [address] Specific [place] 1.014 Normal 1.003-1.035 [facility] Comment on above: Performed By: #### 6 187094 ####[facility] [address] [place] [address] Urobilinogen <2.0 Normal Negative [facility] Comment on above: Performed By: #### 6 [id number] ####[facility] [address] [place] [address] WBC <1 Normal 0-5 [facility] Comment on above: Performed By: #### 6 735658 ####[facility] [address] [facility] [place] [address] Influenza A,Bon 04-17-2017 Influenza A, Rapid Ag Negative Normal Negative [facility] Comment on above: Performed By: #### 6 878413 ####[facility] Mhc[address] [facility] [address] Influenza B, Rapid Ag Negative Normal Negative [facility] Comment on above: Performed By: #### 6 167420 ####[facility] [address]mw[address] [facility] [address] CBCon 04-09-2017 Erythrocyte distribution width Auto Ratio (RBC) 11.8 % Low 12.0-15.4 [facility] Healthcare Comment on above: Performed By: #### 2 311884 ####[facility] [address] [facility] [place] [address] Hematocrit Auto Volume Fraction (Bld) 39.1 % Normal 37.0-49.0 [facility] Health care Comment on above: Performed By: #### 2 778610 ####[facility] [address] [place] [address] Hemoglobin mass conc (Bld) 13.0 g/dL Low 13.2-15.6 [facility] Healthcare Comment on above: Performed By: #### 2 325177 ####[facility] [address] [place] [address] MCH Auto Entitic mass (RBC) 31.0 pg Normal 25.0-35.0 [facility] Healthcare Comment on above: Performed By: #### 2 064496 ####[facility] Els[address] [place] [address] MCHC Auto mass conc (RBC) 33.2 g/dL Normal 32.0-35.9 [facility] Healthcare Comment on above: Performed By: #### 2 548268 ####[facility] [address] [place] [address] MCV Auto Entitic volume (RBC) 93.3 fL Normal 80.0-100.0 [facility] Comment on above: Performed By: #### 2 357241 ####[facility] A[address] [facility] [place] [address] NRBC Absolute 0.00 10*3/uL Normal [facility] Comment on above: Performed By: #### 2 178457 ####[facility] N[address] [facility] [place] [address] NRBC Automated 0.0 /100{WBCs} Normal [facility] Comment on above: Performed By: #### 2 240140 ####[facility] [address] [facility] [place] [address] Platelet mean volume Auto Entitic volume (Bld) 9.8 fL Low 9.9-12.1 [facility] Comment on above: Performed By: #### 2 992373 ####[facility] [address]xb[address] [facility] [place] [address] Platelets Auto #/vol (Bld) 269 10*3/uL Normal 155-404 [facility] Comment on above: Performed By: #### 2 188763 ####[facility] [address] [facility] [place] [address] RBC Auto #/vol (Bld) 4.19 10*6/uL Low 4.50-5.30 [facility] Comment on above: Performed By: #### 2 353441 ####[facility] [address] [facility] [place] [address] RDW SD 40.4 fL Normal 39.3-48.6 [facility] Comment on above: Performed By: #### 2 787366 ####[facility] Q[address] [facility] [address] WBC Auto #/vol (Bld) 5.7 10*3/uL Normal 4.5-13.5 [facility] Comment on above: Performed By: #### 2 362946 ####[facility] Y[address] [facility] [place] [address] Parathyroid Hormoneon 2017 Parathyroid Hormone 20.0 pg/mL Normal 14.0-72.0 [facility] Comment on above: Result Comment: Ca L ow Ca Normal Ca High -PTH Low Suggests hypo- Suggests hyper-parathyroid calcemia ofcondition malignancycondition PTH Normal Suggests normal Suggests hyper-parathyroid parathyroidcondition PTH High Suggests secondary Suggests primaryhyperparathyroid hyperparathyroidcondition condition Performed By: #### 1 [id number] ####[facility] Iyp[address] [employer] [place] [address] Partial Thromboplastin Timeo n 04-09-2017 aPTT Coag time (Bld) 30.1 s Normal 22.1-35.3 [facility] Comment on above: Result Comment: Hepa rin Therapeutic Range: 71 - 97 sec Performed By: #### 3 [id number] ####[facility] Qtm[address] [place] [address] Prothrombin Timeon 8 INR Coag RelTime (PPP) 0.93 {INR} Normal 0.85-1.16 [facility] Comment on above: Result Comment: Coum yamilka Therapy:1.5 - 2.0 Low Intensity Therapy2.0 - 3.0 Moderate Intensity Therapy2.5 - 3.5 High (1) Intensity Therapy3.0 - 4.0 High (2) Intensity Therapy Performed By: #### 3 [id number] ####[facility] Bjn[address] Chad Garcia [employer] [place] [address] Prothrombin time (PT) Coag time (PPP) 12.4 s Normal 11.3-14.5 [facility] Comment on above: Performed By: #### 3 [id number] ####[facility] Miv[address] [facility] [place] [address] Renal Function Panelon 04-09 Albumin mass conc 4.2 g/dL Normal 3.4-5.0 [facility] Comment on above: Performed By: #### 1 [id number] ####[facility] [address] [place] [address] Anion gap 3 molar conc 11 mmol/L Normal 10-20 [facility] Comment on above: Performed By: #### 1 [id number] ####[facility] Fhh[address] [facility] [place] [address] Calcium mass conc 9.3 mg/dL Normal 8.5-10.7 [facility] Comment on above: Performed By: #### 1 [id number] ####[facility] Gpg[address] [place] [address] Chloride molar conc 104 mmol/L Normal 98-107 [facility] Comment on above: Performed By: #### 1 [id number] ####[facility] Eqd[address] [facility] [place] [address] Creatinine mass conc 1.04 mg/dL Normal 0.50-1.30 [facility] Comment on above: Performed By: #### 1 [id number] ####[facility] Ioe[address] [employer] [place] [address] GFR/1.73 sq M.predicted MDRD vol rate/area mL/min/{1.73_m2} Normal [facility] Comment on above: Result Comment: Inte rpretation for Chronic Kidney Disease:Stages 1&2 >60 Healthy or potential kidney damage.Mild decrease of GFR.Stage 3 30-59 Moderate decrease of GFR.Stage 4 15-29 Severe decrease of GFR.Stage 5 <15 Kidney failure or on dialysis. Performed By: #### 1 [id number] ####[facility] Mxc[address] [facility] [employer] [place] [address] Glucose mass conc 93 mg/dL Normal 70-100 [facility] Comment on above: Performed By: #### 1 [id number] ####[facility] [address] [place] [address] HCO3 molar conc (Bld) 30 mmol/L Normal 21-32 [facility] Comment on above: Performed By: #### 1 [id number] ####[facility] [address] [place] [address] Phosphate mass conc 2.2 mg/dL Low 2.5-4.9 [facility] Comment on above: Performed By: #### 1 [id number] ####[facility] [address] [place] [address] Potassium molar conc 4.2 mmol/L Normal 3.5-5.1 [facility] Comment on above: Performed By: #### 1 [id number] ####[facility] [address] [place] [address] Sodium molar conc 141 mmol/L Normal 136-145 [facility] Comment on above: Performed By: #### 1 [id number] ####[facility] [address] [place] [address] Urea nitrogen mass conc 15 mg/dL Normal 6-23 [facility] Comment on above: Performed By: #### 1 [id number] ####[facility] [address] [place] [address] Urea nitrogen/Creatinine mass ratio 14 mg/mg Normal 5-25 [facility] Comment on above: Performed By: #### 1 [id number] ####[facility] [address] [place] [address] Total Protein, Urineon 04-09 Creatinine, Urine 132 mg/dL Normal [facility] Comment on above: Performed By: #### 1 [id number] ####[facility] [address] [place] [address] Total Protein, Urine <4 Normal [facility] Comment on above: Result Comment: Plea se note new Units effective 09/11/2016. Performed By: #### 1 [id number] ####[facility] [address] [place] [address] Total Protein/Creatinine ratio See Below Normal [facility] Comment on above: Result Comment: Unab le to calculate result due to component value outside ofmeasurement range.Please note new Units effective 09/11/2016. Performed By: #### 1 [id number] ####[facility] [address] [place] [address] Urinalysison 04-09-2017 Appearance Clear Normal Clear [facility] Comment on above: Performed By: #### 1 [id number] ####[facility] [address] [place] [address] Ascorbic Acid Negative Normal Negative [facility] Comment on above: Performed By: #### 1 [id number] ####[facility] [address] [place] [address] Automated Urine Microscopy Performed Normal [facility] Comment on above: Performed By: #### 1 [id number] ####[facility] [address] [place] [address] Bilirubin Negative Normal Negative [facility] Comment on above: Performed By: #### 1 [id number] ####[facility] [address] [place] [address] Blood Large Abnormal Negative [facility] Comment on above: Performed By: #### 1 [id number] ####[facility] [address] [place] [address] Color Yellow Normal [facility] Comment on above: Performed By: #### 1 [id number] ####[facility] [address] [place] [address] Glucose Negative Normal Negative [facility] Comment on above: Performed By: #### 1 [id number] ####[facility] [address] [place] [address] Ketones Negative Normal Negative [facility] Comment on above: Performed By: #### 1 [id number] ####[facility] [address] [place] [address] Leukocytes Esterase Negative Normal Negative [facility] Comment on above: Performed By: #### 1 [id number] ####[facility] [address] [place] [address] Mucous Rare Normal None [facility] Comment on above: Performed By: #### 1 [id number] ####[facility] [address] [place] [address] Nitrite Negative Normal Negative [facility] Comment on above: Performed By: #### 1 [id number] ####[facility] Lig[address] [place] [address] pH 7.0 Normal 5.0-9.0 [facility] Comment on above: Performed By: #### 1 [id number] ####[facility] [address] [place] [address] Protein mass conc 100 mg/dL Abnormal Negative [facility] Comment on above: Performed By: #### 1 [id number] ####[facility] [address] [place] [address] RBC 154 /[HPF] Normal 0-3 [facility] Comment on above: Performed By: #### 1 [id number] ####[facility] [address] [place] [address] Specific [place] 1.017 Normal 1.003-1.035 [facility] Comment on above: Performed By: #### 1 [id number] ####[facility] [address] [place] [address] Urobilinogen <2.0 Normal Negative [facility] Comment on above: Performed By: #### 1 [id number] ####[facility] [address] [place] [address] WBC 1 /[HPF] Normal 0-5 [facility] Comment on above: Performed By: #### 1 [id number] ####[facility] [address] [place] [address] Vitamin D, 25 Hydroxyon 03-20 Vitamin D, 25 Hydroxy 25 ng/mL Abnormal [facility] Comment on above: Result Comment: DEFI CIENCY <20INSUFFICIENCY 20-29OPTIMUM LEVEL 30-80POSSIBLE TOXICITY >80 Performed By: #### V ITD ####[facility] [address] [place] [address] Culture Urineon 01-24-2017 Culture Urine STATUS: FINAL REPORT SITE: SOURCE: Urine Culture Urine: <1,000 cfu/ml--No growth Normal [facility] Comment on above: Performed By: #### 6 [id number] ####[facility] [address] [place] [address] Urinalysison 01-24-2017 Appearance Clear Normal Clear [facility] Comment on above: Performed By: #### 1 [id number] ####[facility] [address] [place] [address] Ascorbic Acid Negative Normal Negative [facility] Comment on above: Performed By: #### 1 [id number] ####[facility] [address] [place] [address] Automated Urine Microscopy Performed Normal [facility] Comment on above: Performed By: #### 1 [id number] ####[facility] [address] [place] [address] Bacteria Occasional Normal None [facility] Comment on above: Performed By: #### 1 [id number] ####[facility] [address] [place] [address] Bilirubin Negative Normal Negative [facility] Comment on above: Performed By: #### 1 [id number] ####[facility] [address] [place] [address] Blood Large Abnormal Negative [facility] Comment on above: Performed By: #### 1 [id number] ####[facility] [address] [place] [address] Color Yellow Normal [facility] Comment on above: Performed By: #### 1 [id number] ####[facility] [address] [place] [address] Glucose Negative Normal Negative [facility] Comment on above: Performed By: #### 1 [id number] ####[facility] [address] [place] [address] Ketones Negative Normal Negative [facility] Comment on above: Performed By: #### 1 [id number] ####[facility] [address] [place] [address] Leukocytes Esterase Negative Normal Negative [facility] Comment on above: Performed By: #### 1 [id number] ####[facility] [address] [place] [address] Mucous Few Normal None [facility] Comment on above: Performed By: #### 1 [id number] ####[facility] [address] [place] [address] Nitrite Negative Normal Negative [facility] Comment on above: Performed By: #### 1 [id number] ####[facility] [address] [place] [address] pH 6.0 Normal 5.0-9.0 [facility] Comment on above: Performed By: #### 1 [id number] ####[facility] [address] [place] [address] Protein mass conc 100 mg/dL Abnormal Negative [facility] Comment on above: Performed By: #### 1 [id number] ####[facility] [address] [place] [address] RBC 37 /[HPF] Normal 0-3 [facility] Comment on above: Performed By: #### 1 [id number] ####[facility] [address] [place] [address] Specific [place] 1.017 Normal 1.003-1.035 [facility] Comment on above: Performed By: #### 1 [id number] ####[facility] [address] [place] [address] Urobilinogen <2.0 Normal Negative [facility] Comment on above: Performed By: #### 1 [id number] ####[facility] [address] [place] [address] WBC 1 /[HPF] Normal 0-5 [facility] Comment on above: Performed By: #### 1 [id number] ####[facility] [address] [place] [address] Vital Signs Date Time Vital Sign Value Performing Clinician Faci lity 10-21-2025 12:44-0400 Body temperature 99.5 [degF] Carlos Hutchison MD Work Phone: [facility] 01-06-2025 12:44-0400 Diastolic blood pressure 95 mm[Hg] Carlos Hutchison MD Work Phone: [facility] 01-06-2025 12:44-0400 Heart rate 95 /min Carlos Hutchison MD Work Phone: [facility] 01-06-2025 12:44-0400 SaO2% (BldA) [Mass fraction] 95 % Carlos Hutchison MD Work Phone: [facility] 01-06-2025 12:44-0400 Systolic blood pressure 162 mm[Hg] Carlos Hutchison MD Work Phone: [facility] 01-06-2025 08:14-0400 Respiratory rate 18 /min Carlos Hutchison MD Work Phone: [facility] 01-05-2025 08:28-0400 Body height 177.8 cm Carlos Hutchison MD Work Phone: [facility] 01-05-2025 08:28-0400 Body mass index (BMI) [Ratio] 24.83 kg/m2 Carlos Hutchison MD Work Phone: [facility] 01-05-2025 08:28-0400 Body weight 78.5 kg Carlos Hutchison MD Work Phone: [facility] 10-14-2024 10:00-0400 Body temperature 97.9 [degF] No Primary Care Physician [facility] 10-14-2024 10:00-0400 Diastolic blood pressure 63 mm[Hg] No Primary Care Physician [facility] 10-14-2024 10:00-0400 Heart rate 101 /min No Primary Care Physician [facility] 10-14-2024 10:00-0400 Respiratory rate 16 /min No Primary Care Physician [facility] 10-14-2024 10:00-0400 SaO2% (BldA) [Mass fraction] 98 % No Primary Care Physician [facility] 10-14-2024 10:00-0400 Systolic blood pressure 148 mm[Hg] No Primary Care Physician [facility] 10-14-2024 05:23-0400 Body mass index (BMI) [Ratio] 25.2 kg/m2 No Primary Care Physician [facility] 10-14-2024 05:23-0400 Body weight 80 kg No Primary Care Physician [facility] 10-13-2024 21:45-0400 Inhaled oxygen flow rate 2 L/min No Primary Care Physician [facility] 10-13-2024 13:37-0400 Body height 177.8 cm No Primary Care Physician [facility] 10-13-2024 13:13-0400 Body temperature 98.4 [degF] No Primary Care Physician [facility] 10-13-2024 13:13-0400 Diastolic blood pressure 111 mm[Hg] No Primary Care Physician [facility] 10-13-2024 13:13-0400 Heart rate 101 /min No Primary Care Physician [facility] 10-13-2024 13:13-0400 Respiratory rate 21 /min No Primary Care Physician [facility] 10-13-2024 13:13-0400 SaO2% (BldA) [Mass fraction] 100 % No Primary Care Physician [facility] 10-13-2024 13:13-0400 Systolic blood pressure 166 mm[Hg] No Primary Care Physician [facility] 10-13-2024 08:14-0400 Body height 177.8 cm No Primary Care Physician [facility] 10-13-2024 08:14-0400 Body mass index (BMI) [Ratio] 25.4 kg/m2 No Primary Care Physician [facility] 10-13-2024 08:14-0400 Body weight 80.5 kg No Primary Care Physician [facility] 10-03-2024 21:55-0400 Body temperature 98.1 [degF] No Primary Care Physician [facility] 10-03-2024 21:55-0400 Diastolic blood pressure 97 mm[Hg] No Primary Care Physician [facility] 10-03-2024 21:55-0400 Heart rate 98 /min No Primary Care Physician [facility] 10-03-2024 21:55-0400 Respiratory rate 17 /min No Primary Care Physician [facility] 10-03-2024 21:55-0400 SaO2% (BldA) [Mass fraction] 99 % No Primary Care Physician [facility] 10-03-2024 21:55-0400 Systolic blood pressure 159 mm[Hg] No Primary Care Physician [facility] 10-03-2024 16:39-0400 Body height 177.8 cm No Primary Care Physician [facility] 10-03-2024 16:39-0400 Body mass index (BMI) [Ratio] 25.9 kg/m2 No Primary Care Physician [facility] 10-03-2024 16:39-0400 Body weight 82 kg No Primary Care Physician [facility] 03-06-2024 05:25-0500 Diastolic blood pressure 74 mm[Hg] Isac Padgett DO Work Phone: [facility] 03-06-2024 05:25-0500 Heart rate 95 /min Isac Padgett DO Work Phone: [facility] 03-06-2024 05:25-0500 Respiratory rate 18 /min Isac Padgett DO Work Phone: [facility] 03-06-2024 05:25-0500 SaO2% (BldA) [Mass fraction] 98 % Isac Padgett DO Work Phone: [facility] 03-06-2024 05:25-0500 Systolic blood pressure 132 mm[Hg] Isac Padgett DO Work Phone: [facility] 03-06-2024 03:45-0500 Body height 177.8 cm Isac Padgett DO Work Phone: [facility] 03-06-2024 03:45-0500 Body mass index (BMI) [Ratio] 26.1 kg/m2 Isac Padgett DO Work Phone: [facility] 03-06-2024 03:45-0500 Body temperature 98.6 [degF] Isac Padgett DO Work Phone: [facility] 03-06-2024 03:45-0500 Body weight 82.5 kg Isac Padgett DO Work Phone: [facility] 03-04-2024 09:23-0500 Body height 177.8 cm [facility] Work Phone: [facility] 03-04-2024 09:23-0500 Body mass index (BMI) [Ratio] 26.41 kg/m2 [facility] Work Phone: [facility] 03-04-2024 09:23-0500 Body temperature 98.6 [degF] [facility] Work Phone: [facility] 03-04-2024 09:23-0500 Body weight 83.5 kg [facility] Work Phone: [facility] 03-04-2024 09:23-0500 Diastolic blood pressure 92 mm[Hg] [facility] Work Phone: [facility] 03-04-2024 09:23-0500 Heart rate 94 /min [facility] Work Phone: [facility] 03-04-2024 09:23-0500 SaO2% (BldA) [Mass fraction] 99 % [facility] Work Phone: [facility] 03-04-2024 09:23-0500 Systolic blood pressure 140 mm[Hg] [facility] Work Phone: [facility] 03-04-2024 09:19-0500 Body height 177.8 cm Wait List Work Phone: [facility] 03-04-2024 09:19-0500 Body mass index (BMI) [Ratio] 26.41 kg/m2 [facility] Work Phone: [facility] 03-04-2024 09:19-0500 Body temperature 98.6 [degF] [facility] Work Phone: [facility] 03-04-2024 09:19-0500 Body weight 83.5 kg Wait [facility] Work Phone: [facility] 03-04-2024 09:19-0500 Diastolic blood pressure 92 mm[Hg] Wait [facility] Work Phone: [facility] 03-04-2024 09:19-0500 Heart rate 94 /min Wait [facility] Work Phone: [facility] 03-04-2024 09:19-0500 SaO2% (BldA) [Mass fraction] 98 % [facility] Work Phone: [facility] 03-04-2024 09:19-0500 Systolic blood pressure 140 mm[Hg] Wait [facility] Work Phone: [facility] 05-15-2023 12:40-0500 Body height 177.8 cm Pacc 1 Other Phone: [facility] 05-15-2023 12:40-0500 Body temperature 98.01 [degF] Pacc 1 Other Phone: [facility] 05-15-2023 12:40-0500 Body weight 78 kg Pacc 1 Other Phone: [facility] 05-15-2023 12:40-0500 Diastolic blood pressure 79 mm[Hg] Pacc 1 Other Phone: [facility] 05-15-2023 12:40-0500 Heart rate 80 /min Pacc 1 Other Phone: [facility] 05-15-2023 12:40-0500 Respiratory rate 20 /min Pacc 1 Other Phone: [facility] 05-15-2023 12:40-0500 SaO2% (BldA) [Mass fraction] 100 % Pacc 1 Other Phone: [facility] 05-15-2023 12:40-0500 Systolic blood pressure 117 mm[Hg] Pacc 1 Other Phone: [facility] 05-09-2023 18:45-0500 Heart rate 90 /min Theodore Lynn DO Work Phone: [facility] 05-09-2023 18:45-0500 SaO2% (BldA) [Mass fraction] 97 % Theodore Lynn DO Work Phone: [facility] 05-09-2023 18:30-0500 Body temperature 98.4 [degF] Theodore Ibrahimgola DO Work Phone: [facility] 05-09-2023 18:30-0500 Diastolic blood pressure 83 mm[Hg] Theodore Andreala DO Work Phone: [facility] 05-09-2023 18:30-0500 Respiratory rate 18 /min Theodore Lynn DO Work Phone: [facility] 05-09-2023 18:30-0500 Systolic blood pressure 130 mm[Hg] Theodore Lynn DO Work Phone: [facility] 05-09-2023 17:00-0500 Body height 177.8 cm Theodore Lynn DO Work Phone: [facility] 05-09-2023 17:00-0500 Body mass index (BMI) [Ratio] 23.72 kg/m2 Theodore Lynn DO Work Phone: [facility] 05-09-2023 17:00-0500 Body weight 75 kg Theodore Lynn DO Work Phone: [facility] 01-27-2023 11:53-0500 Diastolic blood pressure 68 mm[Hg] Ivette Manzano MD Work Phone: [facility] 01-27-2023 11:53-0500 Heart rate 68 /min Ivette Manzano MD Work Phone: [facility] 01-27-2023 11:53-0500 Respiratory rate 18 /min Ivette Manzano MD Work Phone: [facility] 01-27-2023 11:53-0500 SaO2% (BldA) [Mass fraction] 100 % Ivette Manzano MD Work Phone: [facility] 01-27-2023 11:53-0500 Systolic blood pressure 107 mm[Hg] Ivette Manzano MD Work Phone: [facility] 01-27-2023 09:18-0500 Body height 177.8 cm Ivette Manzano MD Work Phone: [facility] 01-27-2023 09:18-0500 Body mass index (BMI) [Ratio] 22.93 kg/m2 Ivette Manzano MD Work Phone: [facility] 01-27-2023 09:18-0500 Body temperature 97.5 [degF] Ivette Manzano MD Work Phone: [facility] 01-27-2023 09:18-0500 Body weight 72.5 kg Ivette Manzano MD Work Phone: [facility] 12-21-2022 08:20-0400 Body height 177.8 cm [facility] Work Phone: [facility] 12-21-2022 08:20-0400 Body temperature 98.49 [degF] [facility] Work Phone: [facility] 12-21-2022 08:20-0400 Body weight 72.98 kg [facility] Work Phone: [facility] 12-21-2022 08:20-0400 Diastolic blood pressure 73 mm[Hg] [facility] Work Phone: [facility] 12-21-2022 08:20-0400 Heart rate 91 /min [facility] Work Phone: [facility] 12-21-2022 08:20-0400 SaO2% (BldA) [Mass fraction] 99 % [facility] Work Phone: [facility] 12-21-2022 08:20-0400 Systolic blood pressure 99 mm[Hg] [facility] Work Phone: [facility] 05-29-2022 10:50-0400 Diastolic blood pressure 88 mm[Hg] Lui Cooper MD Work Phone: [facility] 05-29-2022 10:50-0400 Heart rate 71 /min Lui Cooper MD Work Phone: [facility] 05-29-2022 10:50-0400 Systolic blood pressure 126 mm[Hg] Lui Cooper MD Work Phone: [facility] 05-22-2022 11:11-0500 Body height 177.8 cm Lui Cooper MD Work Phone: [facility] 05-22-2022 11:11-0500 Body weight 73.48 kg Lui Cooper MD Work Phone: [facility] 04-20-2022 09:16-0500 Body height 177.8 cm Pacc 3 Work Phone: [facility] 04-20-2022 09:16-0500 Body temperature 98.6 [degF] Pacc 3 Work Phone: [facility] 04-20-2022 09:16-0500 Body weight 73.03 kg Pacc 3 Work Phone: [facility] 04-20-2022 09:16-0500 Diastolic blood pressure 98 mm[Hg] Pacc 3 Work Phone: [facility] 04-20-2022 09:16-0500 Heart rate 99 /min Pacc 3 Work Phone: [facility] 04-20-2022 09:16-0500 Respiratory rate 17 /min Pacc 3 Work Phone: [facility] 04-20-2022 09:16-0500 SaO2% (BldA) [Mass fraction] 99 % Pacc 3 Work Phone: [facility] 04-20-2022 09:16-0500 Systolic blood pressure 130 mm[Hg] Pacc 3 Work Phone: [facility] 03-27-2022 10:07-0500 Body height 177.8 cm Lui Cooper MD Work Phone: [facility] 03-27-2022 10:07-0500 Body weight 80.29 kg Lui Cooper MD Work Phone: [facility] 03-27-2022 10:07-0500 Diastolic blood pressure 87 mm[Hg] Lui Cooper MD Work Phone: [facility] 03-27-2022 10:07-0500 Systolic blood pressure 122 mm[Hg] Lui Cooper MD Work Phone: [facility] 03-21-2022 18:19-0500 Body temperature 97.16 [degF] Ivette Natacha Other Phone: [facility] 03-21-2022 18:19-0500 Diastolic blood pressure 91 mm[Hg] Ivette Natacha Other Phone: [facility] 03-21-2022 18:19-0500 Heart rate 84 /min Ivette Natacha Other Phone: [facility] 03-21-2022 18:19-0500 Systolic blood pressure 149 mm[Hg] Ivette Natacha Other Phone: [facility] 03-21-2022 09:57-0500 SaO2% (BldA) [Mass fraction] 98 % Ivette Natacha Other Phone: [facility] 02-21-2022 14:22-0500 Body temperature 98.24 [degF] Ivette Natacha Other Phone: [facility] 02-21-2022 14:22-0500 Diastolic blood pressure 81 mm[Hg] Ivette Natacha Other Phone: [facility] 02-21-2022 14:22-0500 Heart rate 94 /min Ivette Natacha Other Phone: [facility] 02-21-2022 14:22-0500 Respiratory rate 18 /min Ivette Natacha Other Phone: [facility] 02-21-2022 14:22-0500 SaO2% (BldA) [Mass fraction] 99 % Ivette Natacha Other Phone: [facility] 02-21-2022 14:22-0500 Systolic blood pressure 144 mm[Hg] Ivette Natacha Other Phone: [facility] Encounters Encounter Date Encounter Type Care Provider Facility Start: 01-22-2025 End: 01-22-2025 Emergency department patient visit PHYSICIAN NO [facility] Start: 01-05-2025 Critical care ill/injured patient init 30-74 min Carlos Davis MD Work Phone: [facility] Work Phone: Start: 01-05-2025 End: 01-06-2025 Evaluation and management of inpatient Carlos Davis MD Work Phone: [facility] 11 Comment on above: Hyperkalemia (Primar y Dx); ESRD (end stage renal disease) on dialysis (Multi); Nausea and vomiting, unspecified vomiting type Start: 10-14-2024 Non-patient / Non-visit Dr. Bing Birmingham DO -[facility] Work Phone: Start: 10-14-2024 ambulatory No Primary Car e Physician Facility:[facility] Start: 10-14-2024 Non-patient / Non-visit [facility]. Gill [facility] Start: 10-13-2024 End: 10-14-2024 ambulatory Windy Higuera Facility:[facility] Start: 10-13-2024 End: 10-14-2024 Evaluation and management of inpatient Dr. Bing Birmingham DO -[facility] Work Phone: Start: 10-13-2024 End: 10-14-2024 observation encounter No Primary Care Physician -Progressive Care Unit Start: 10-03-2024 End: 10-03-2024 Emergency department patient visit No Primary Care Physician -Emergency Department Work Phone: Start: 09-16-2024 End: 09-16-2024 ambulatory VIKTOR VENCES Facility:[facility] Start: 09-11-2024 End: 09-11-2024 Orders Only Viktor Vences DO Work Phone: Vascular Surgery Comment on above: ESRD (end stage alejandra l disease) (HCC) (Primary Dx) Start: 05-14-2024 ambulatory Windy Davidapatsy Oliva ity:[facility] Start: 04-17-2024 End: 04-17-2024 ambulatory HUA WHEELER Facility:[facility] Start: 04-17-2024 Encounter for other preprocedural examination HUA WHEELER [facility] Start: 04-17-2024 End: 04-17-2024 Subsequent hospital visit by physician Ct 2 Main Qb (I-Stat) Radiology Comment on above: Chronic renal failur e, unspecified CKD stage [N18.9] Start: 03-10-2024 End: 03-10-2024 Patient Msg January KEY Work Phone: Transplant Center Comment on above: Social Work Educatio n Packet Start: 03-06-2024 End: 03-06-2024 Emergency department patient visit Isac Wilcox Jer DO Work Phone: [facility] Emergency Medicine Comment on above: Head injury, initial encounter (Primary Dx) Start: 03-05-2024 End: 03-05-2024 Orders Only Hua Wheeler MD Work Phone: Transplant Center Comment on above: Pre-transplant evalu ation for ESRD (end stage renal disease) (Primary Dx) Chronic renal failur e, unspecified CKD stage (Primary Dx) Start: 03-05-2024 End: 03-05-2024 Patient encounter status Hua Wheeler MD Work Phone: [facility] Start: 03-04-2024 End: 03-04-2024 Patient encounter status Hua Wheeler MD Work Phone: [facility] Start: 03-04-2024 End: 03-04-2024 Orders Only Hua Wheeler MD Work Phone: Transplant Center Comment on above: Pre-transplant evalu ation for ESRD (end stage renal disease) (Primary Dx) Chest X-Ray Order Re quest in [facility] Pre-transplant evalu ation for ESRD (end stage [...] department patient visit No Primary Care Physician Facility:[facility] Start: 01-24-2024 End: 01-24-2024 Chart abstracting Bert Begum home care coordinator Center Comment on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 disease) ([facility]) ME CATH End: 12-21-2023 KID K/P PANC REC INIT W/U KID K/P PANC REC INIT W/U ALLOGEN Routine Renal failure, unspecified chronicity Preoperative examination Screening for venereal disease 1 Occurrences starting 12/21/2022 until 12/21/[address] [facility] Work Phone: Comment on above: 1 Occurrences starti ng 12/21/2022 until 12/21/2023 KID K/P PANC REC INIT W/U KID K/ P PANC REC INIT W/U ALLOGEN Routine Renal failure, unspecified chronicity Preoperative examination Screening for venereal disease 12/21/2022 11:[address] [facility] Work Phone: Magnesium [Mass/volu me] in Serum or Plasma Magnesium Lab Routine Daily (Lab) until discontinued starting 01/06/2025, 1 completed [facility] Work Phone: Comment on above: Daily (Lab) until di scontinued starting 01/06/2025, 1 completed Patient Education [facility] Work Phone: Phosphate [Mass/volu me] in Serum or Plasma Phosphorus Lab Routine Daily (Lab) until discontinued starting 01/06/2025, 1 completed [facility] Work Phone: Comment on above: Daily (Lab) until di scontinued starting 01/06/2025, 1 completed End: 01-27-2023 Pulse oximetry, continuous Pulse oximetry, continuous Respiratory Care STAT Continuous until discontinued starting 01/27/2023 [facility] Service Area Work Phone: Comment on above: Continuous until dis continued starting 01/27/2023 RECIPIENT NOTIFICATION RECIPIENT NOTIFICATION ALLOGEN Routine Renal failure, unspecified chronicity Preoperative examination Screening for venereal disease Ordered: 12/21/[address] [facility] Work Phone: Comment on above: Ordered: 12/21/2022 End: 01-09-2025 Renal function 2000 panel - Serum or Plasma Renal Function Panel Lab Routine Daily (Lab) for 3 Occurrences starting 01/07/2025 until 01/09/2025 [facility] Work Phone: Comment on above: Daily (Lab) for 3 Oc currences starting 01/07/2025 until 01/09/2025 End: 01-27-2023 Troponin I.cardiac panel - Serum or Plasma by High sensitivity method [facility] Work Phone: Comment on above: STAT (Lab) for 1 Occ urrences starting 01/27/2023 until 01/27/2023 Once for 1 Occurrenc es starting 01/27/2023 until 01/27/2023 End: 03-24-2023 UPPER EXT MAP FOR DIALYSIS ACCESS SB VAS LAB UPPER EXT MAP FOR DIALYSIS ACCESS SB VAS LAB Vascular Lab Routine ESRD (end stage renal disease) (HCC) 1 Occurrences starting 03/24/2022 until 03/24/[address] [facility] Work Phone: Comment on above: 1 Occurrences starti ng 03/24/2022 until 03/24/2023 End: 05-23-2023 US A/V FISTULA GRAFT UNL VAS LAB US A/V FISTULA GRAFT UNL VAS LAB Vascular Lab Routine ESRD (end stage renal disease) (HCC) 1 Occurrences starting 05/22/2022 until 05/23/[address] [facility] Work Phone: Comment on above: 1 Occurrences starti ng 05/22/2022 until 05/23/2023 [facility] FV CATH [facility] FV OR Immunizations Immunization Date Immunization Notes Care Provider Hanna [facility] 09-11-2023 measles, mumps and rubella virus vaccine Bert Begum RN [facility] 09-11-2023 varicella virus vaccine Bert morris RN [facility] 02-26-2023 Hepatitis B vaccine (recombinant), CpG adjuvanted [facility] Work Phone: [facility] 05-22-2022 pneumococcal polysaccharide vaccine, 23 valent Shannan Schwartz RN [facility] 03-27-2022 pneumococcal (PCV20) vaccine, 20 valent (PREVNAR 20) Shannan Schwartz RN [facility] 11-14-2016 meningococcal vaccin e of unknown formulation and unknown serogroups Bert Begum RN [facility] 11-04-2015 HPV, unspecified formulation Ivette Manzano MD Work Phone: [facility] Work Phone: 12-11-2011 tetanus toxoid, redu shira diphtheria toxoid, and acellular pertussis vaccine, adsorbed Bert Begum RN [facility] Payers Date Payer Category Payer Medicare [id number] 2024 Unknown 2024 Self-pay 2023 [facility] [id number] 2023 Medicare ACCIDENT RELATED NON-MEDICARE ACCIDENT RELATED NON-MEDICARE [id number] 2023-Present [address] [place] [address] [id number] 2022 Private Health Insurance HUMANA HUMANA MEDICAID [facility] [id number] 2022-Present [address] [address] [place] [address] Medicaid [id number] 2022 Medicaid [id number] 2022 Medicaid [id number] 2021 Unknown 2021 Unknown [id number] 1999 Unknown [id number]. 1067 1999 Unknown [id number]. 8 1999 Unknown [id number]. 1068 1999 Unknown [id number]. 1243 1999 Unknown [id number] [id number]. 1243 1999 Unknown [id number] [id number]. 1246 1999 Unknown [id number]. 902 Unknown [id number] Unknown [id number]. 462 Unknown [id number]. 462 Unknown [id number] [id number]. 462 Unknown [id number] [id number]. 462 Unknown [id number] [id number]. 462 Unknown [id number] [id number]. 462 Unknown [id number]. 462 Social History Date Type Detail Facility [facility] Tobacco smoking consumption unknown [facility] Work Phone: Start: 1999 Sex Assigned At Not on file C [facility] Start: 03-27-2022 End: 03-20-2023 Tobacco smoking status NHIS Occasional tobacco smoker [facility] Start: 03-19-2017 History of tobacco use Cigarette Smo ker [facility] Start: 03-27-2022 End: 01-05-2025 Tobacco use and exposure Smokeless tobacco non-user [facility] History of tobacco use Cigar Smoker [facility] Work Phone: Start: 04-20-2022 End: 08-06-2023 Alcohol intake Current drinker of alcohol (finding) [facility] Start: 04-20-2022 Alcohol Comment [facility] Start: 09-13-2022 End: 01-05-2025 History of Social function [facility] Start: 09-13-2022 End: 01-05-2025 Tobacco use panel [facility] Start: 01-17-2023 End: 05-09-2023 Exposure to SARS-CoV-2 (event) Yes [facility] Start: 2000 [facility] [place] [place] Start: 03-06-2024 Gender identity Identifies as male gender (finding) [facility] Work Phone: Start: 02-25-2024 End: 03-06-2024 Exposure to SARS-CoV-2 (event) Not sure [facility] Start: 10-03-2024 End: 10-13-2024 Tobacco smoking status NHIS Ex-smoker (finding) [facility] Start: 01-05-2025 Tobacco smoking stat [facility] Never smoked tobacco [facility] Start: 01-05-2025 Alcoholic beverage intake Lifetime non-drinker (finding) [facility] Work Phone: Within the last year , have you been afraid of your partner or ex-partner? No [facility] Work Phone: How often do you hav e a drink containing alcohol? Monthly or less [facility] Work Phone: How many standard drinks containing alcohol do you have on a typical day? 1 or 2 [facility] Work Phone: How often do you hav e 6 or more drinks on 1 occasion? Never [facility] Work Phone: How hard is it for y ou to pay for the very basics like food, housing, medical care, and heating Not very hard [facility] Work Phone: Do you feel stress - tense, restless, nervous, or anxious, or unable to sleep at night because your mind is troubled all the time - these days [OSQ] Not at all [facility] Work Phone: On those days that y ou engage in moderate to strenuous exercise, how many minutes, on average, do you exercise? Not on file [facility] Work Phone: (I/We) worried wheth er (my/our) food would run out before (I/we) got money to buy more. Never true [facility] Work Phone: Start: 02-10-2022 Sex Male (finding) [facility] Goals Date Patient Goal Desired Activity /State Personal health goal Functional Status Date Assessment Result Facility 01-06-2025 Functional status 162/95 025 12:44 PM EDT Interface, Masimo Data In [facility]/[address] [place] [address] 01-06-2025 Vital signs 95 01/06/2025 12 :44 PM EDT Interface, Masimo Data In [facility] Work Phone: 01-05-2025 [facility] Work Phone: 01-05-2025 Total score [AUDIT-C] 1 01/06/20 25 9:18 PM EDT Alexa Cruz, TASHIA [facility] Work Phone: 01-05-2025 Patient Health Questionnaire 2 item (PHQ-2) [Reported] [facility] Work Phone: 01-05-2025 Functional status [facility] Work Phone: 01-05-2025 Functional status 1 [facility] Work Phone: 01-05-2025 [facility]: 01-05-2025 [facility] Work Phone: 01-05-2025 Functional status [facility] Work Phone: 01-05-2025 [facility] 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 02-21-2022 Cognitive functi ons :29 [facility] Clinical Notes 02-18-2022 to 01-06-2025 Keara Swann RN - 01/06/2025 4:20 PM EDTMariadna Swann RN - 01/06/2025 4:20 PM EDTCare Plan - Keara Swann RN - 01/06/2025 3:42 PM EDTCare Plan - Keara Swann RN - 01/06/2025 3:42 PM EDT Note Date & Type Note Facility 01-06-2025 Nurse Note Patient expressed wanting to leave AMA. Rebecca [facility] at bedside. AMA form filled out. Patients IV and telemetry removed. [facility] Work Phone: 01-06-2025 Nurse Note Patient expressed wanting to leave AMA. Rebecca [facility] at bedside. AMA form filled out. Patients IV and telemetry removed. documented in this encounter [facility] Work Phone: 01-06-2025 Plan of care [...] exacerbated and prevent overall improvement and discharge [facility] Work Phone: 01-06-2025 Miscellaneous Notes The [...] Changed:N/A Significant Events/Interventions: HTN Provider Contacted/Time/Response/Orders: Dr. Zmabrano for BP medications d/t hypertension. HD Orders [...] MD 01/05/25 1129 documented in this encounter [facility] Work Phone: 01-06-2025 History of Present illness Narrative 01/06/25 1527 Discharge Planning Living Arrangements Alone Support Systems Family members;Friends/neighbors Type of Residence Private residence Who is requesting discharge planning? Provider Home or Post Acute Services Other (Comment) (dialysis @ [facility] M-W-F) Expected Discharge Disposition Home Intensity of [...] note, this documentation is completed using the [employer] Dictation system (voice recognition software). There may [...] acetaminophen, hydrALAZINE, labetaloL documented in this encounter [facility] Work Phone: 01-06-2025 Consult note Formatting of th is note is different from the original. [facility] Nephrology Consult Note Reason for [...] file Stress: No Stress Concern Present (01/05/2025) [place] [facility] [employer] [facility] - Occupational Stress Questionnaire [...] 05/09/2023, 03/18/2022, CT AP 03/04/2022. ACCESSION NUMBER(S): [id number] ORDERING CLINICIAN: MEKHI WEEMS TECHNIQUE: CT of [...] 05/09/2023, 03/18/2022, CT AP 03/04/2022. 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 Please do [...] 0 [4] No family history on file. [facility] Work Phone: 01-06-2025 Consult note Formatting of th is note is different from the original. [facility] Nephrology Consult Note Reason for [...] file Stress: No Stress Concern Present (01/05/2025) [place] [place] [facility] [employer] - Occupational Stress Questionnaire [...] 05/09/2023, 03/18/2022, CT AP 03/04/2022. ACCESSION NUMBER(S): [id number] ORDERING CLINICIAN: MEKHI WEEMS TECHNIQUE: CT of [...] 05/09/2023, 03/18/2022, CT AP 03/04/2022. 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 Please do [...] history on file. documented in this encounter [facility] Work Phone: 01-06-2025 Surgery Postoperative evaluation [...] Updated: 8:16 AM by MILEY OCONNOR T [facility] Work Phone: 01-06-2025 Evaluation note Report from Sending RN: Report From: TASHIA Sraah Recent Surgery or Procedure: GI Consult for [...] Last Updated: 8:16 AM by MILEY OCONNOR [facility] Work Phone: 01-05-2025 Plan of care [...] other facility with appropriate resources Outcome: Progressing [facility] Work Phone: 01-05-2025 Surgery Postoperative evaluation [...] Last Updated: 3:32 PM by MILEY OCONNOR [facility] Work Phone: 01-05-2025 Evaluation note Report [...] Last Updated: 3:32 PM by MILEY OCONNOR [facility] Work Phone: 01-05-2025 History and physical [...] of this documentation were completed using the [employer] Dictation system (voice recognition software). There may [...] 05/09/2023, 03/18/2022, CT AP 03/04/2022. ACCESSION NUMBER(S): [id number] ORDERING CLINICIAN: MEKHI WEEMS TECHNIQUE: CT of [...] pantoprazole, 40 mg, intravenous, Daily [3] [4] [facility] Work Phone: 01-05-2025 History and [...] of this documentation were completed using the [employer] Dictation system (voice recognition software). There may [...] 05/09/2023, 03/18/2022, CT AP 03/04/2022. ACCESSION NUMBER(S): [id number] ORDERING CLINICIAN: MEKHI WEEMS TECHNIQUE: CT of [...] Daily [3] [4] documented in this encounter [facility] Work Phone: 01-05-2025 Procedure note Associated [...] admitting provider Carlos Hutchison MD 01/05/25 1129 [facility] Work Phone: 01-05-2025 Physician Emergency department [...] the patient patient states he lives in [facility] was up visiting this region he supposed to have dialysis today but did not have it as he is not present in [facility]. Patient lactate negative no leukocytosis with left [...] and has been validated for use at [facility]. Negative results do not preclude COVID-19/ [...] Abnormality Status --------- ------ Urinalysis with Reflex C...[[id number]] Extra Urine Arana Tube[[id number]] Please view results for these tests on [...] and has been validated for use at [facility]. Negative results do not preclude COVID-19/ [...] Abnormality Status --------- ------ Urinalysis with Reflex C...[[id number]] Extra Urine Arana Tube[[id number]] Please view results for these tests on [...] see my attestation within the MIGUELITO's note. [facility] Work Phone: 01-05-2025 Emergency department Note [...] the patient patient states he lives in [facility] was up visiting this region he supposed to have dialysis today but did not have it as he is not present in [facility]. Patient lactate negative no leukocytosis with left [...] and has been validated for use at [facility]. Negative results do not preclude COVID-19/ [...] Abnormality Status --------- ------ Urinalysis with Reflex C...[[id number]] Extra Urine Arana Tube[[id number]] Please view results for these tests on [...] and has been validated for use at [facility]. Negative results do not preclude COVID-19/ [...] Abnormality Status --------- ------ Urinalysis with Reflex C...[[id number]] Extra Urine Arana Tube[[id number]] Please view results for these tests on [...] the MIGUELITO's note. documented in this encounter [facility] Work Phone: 10-14-2024 Consult note [facility] 10-14-2024 Hospital Discharg e instructions Additional Instructions Date of Discharge: 10/14/24 [facility] Work Phone: 10-14-2024 Discharge summary [facility] 10-14-2024 Note [facility] Medical Records Department [address] [place] [address] Discharge Summary 10/14/24 1242 MR#: [id number] Acct: [id number] Name: RUBENSLAWSON BLAKELY Rep #: [id number] : 2000 From: Bing Birmingham DO PCP: Care Physician,No Primary Status:ADM KEYANNA Location: [place] [address] Providers Date of Admission: 10/13/24 Date of [...] who presented to the emergency department at [facility] on 10/05/2024 complaining of shortness of breath. [...] strain at 15 (more content not included)... [facility] 10-13-2024 History and physi gurmeet note Note Date/Time October 13, 2024 4:51pm [facility] Medical Records Department [address] [place] [address] H&P Exam - Hospitalist 10/13/24 1220 MR#: [id number] Acct: [id number] Name: LAWSON DOYLE Rep #:[id number] : 2000 From: Bing Birmingham DO PCP: Care Physician,No Primary Status :ADM KEYANNA Location: [place] [address] HPI - General General Date of Admission: 10/13/24 Date of Service: 10/13/24 Chief Complaint: Shortness of breath HPI Narrative LAWSON DOYLE, is a 24 M who presented to the emergency department at [facility] on 10/05/2024 complaining of shortness of breath. [...] the plan is for urgent HD today. [facility] Medical History (Updated 10/13/24 @ 16:33 by [...] % (Auto) 67.9, Lymph % (Auto) 20.8, Wirt % (Auto) 5.8, Eos % (Auto) 4.9, [...] 98, Calcium 9.9, [place] [address] H Imaging Radiology Impression Chest X-Ray 10/13/24 08:32 IMPRESSION: Borderline cardiomegaly. Mild degree of vascular congestion and CHF. Reading Location: [facility] Assessment & Plan Assessment/Plan (1) Hypoxia: (2) [...] -Full Code Charges/Coding Visit Charges Inpatient E&M: 66662 Init Hosp L2 10/13/24 1651 <Electronically signed by Bing Birmingham DO> Cosigner Signature (if applicable): CC: Dr. Bing Birmingham DO; No Primary Care Physician~ Signed [facility] Work Phone: 1(504) 252-949207-28-2025 Discharge summary Author Arley Kirby [facility] Note Date/Time October 13, 2024 4:36 pm [facility] Medical Records Department [address] [place] [address] [place] [address] Emergency Department Summary 10/13/24 MR#: [id number] Acct: [id number] Name: LAWSON DOYLE Rep #:[id number] : 2000 From: Arley Chavez PCP: Care Physician,No Primary Status :ADM KEYANNA Location: [address] History of Present Illness Chief Complaint: [...] Recent immobilization, Recent surgery or Recent travel [facility] Medical History (Updated 10/13/24 @ 12:13 by [...] intact bilaterally and no sensory deficits noted [place] Coma Scale: document GCS findings Spontaneous Obeys [...] [place] [address]. Labs: Laboratory Results - last 24 hr 10/13/24 08:50 WBC 8.4 RBC 2.94 L Hgb 9.4 L Hct 29.2 L MCV 99.3 H MCH 32.0 MCHC 32.2 RDW Std Deviation 58.7 H RDW Coeff of Mono 16.3 H Plt Count 252 MPV 9.3 Immature Gran % (Auto) 0.400 Neut % (Auto) 67.9 Lymph % (Auto) 20.8 Wirt % (Auto) 5.8 Eos % (Auto) 4.9 [...] 98 Calcium 9.9 [place] [address] H Radiography Chest X-Ray - ED: 2 View, Read by ED Physician, Read by Radiologist, Cardiomegaly (Borderline) and - (Mild vascular congestion) Diagnostic Testing: Clinical Impression(s) from Imaging Studies Chest X-Ray 10/13/24 08:32 IMPRESSION: Borderline cardiomegaly. Mild degree of vascular congestion and CHF. Reading Location: [facility] PA and lateral chest x-ray was obtained. [...] sinus rhythm with a rate of 99. NH interval, QRS interval, and QTc intervals were all normal. [place] was normal. There are no acute ST [...] of his findings. Case was discussed with tents assembler who is covering for Dr. Higuera. He [...] Hypertension, Hypoxia Disposition Disposition: Acute Care Hospital [facility] What to do if you have Problems For any increased pain, shortness of breath, bleeding, nausea or vomiting, chestpain, or any unexpected problems, contact your Primary Care Provider. Call [facility] ([phone]) or report to the closest Emergency Room. Call 911 if necessary. 10/13/24 1636 <Electronically signed by Arley Kirby DO> Cosigner Signature (if applicable): CC: No Primary Care Physician ~ Signed [facility] Work Phone: 1(344) 137-882707-28-2025 History and physical note [facility] Medical Records Department [address] [place] [address] H&P Exam - Hospitalist 10/13/24 1220 MR#: [id number] Acct: [id number] Name: LAWSON DOYLE Rep #:[id number] : 2000 From: Bing Birmingham DO PCP: Care Physician,No Primary Status :ADM KEYANNA Location: [place] [address] HPI - General General Date of Admission: 10/13/24 Date of Service: 10/13/24 Chief Complaint: Shortness of breath HPI Narrative LAWSON DOYLE, is a 24 M who presented to the emergency department at [facility] on10/05/2024 complaining of shortness of breath. Patient [...] the plan is for urgent HD today. [facility] Medical History (Updated 10/13/24 @ 16:33 by [...] % (Auto) 67.9, Lymph % (Auto) 20.8, Wirt % (Auto) 5.8, Eos % (Auto) 4.9, [...] 98, Calcium 9.9, [place] [address] H Imaging Radiology Impression Chest X-Ray 10/13/24 08:32 IMPRESSION: Borderline cardiomegaly. Mild degree of vascular congestion and CHF. Reading Location: [id number] Assessment & Plan Assessment/Plan (1) Hypoxia: (2) [...] -Full Code Charges/Coding Visit Charges Inpatient E&M: 26046 Init Hosp L2 10/13/24 1651 Cosigner Signature (if applicable): CC: Dr. Bing Birmingham, DO; No Primary Care Physician~ Signed [facility]07-28-2025 Discharge summary [facility] Medical Records Department [address] [place] [address] Emergency Department Summary 10/13/24 MR#: [id number] Acct: [id number] Name: LAWSON DOYLE Rep #:[id number] : 2000 From: Arley Chavez PCP: Care Physician,No Primary Status :ADM KEYANNA Location: [address] History of Present Illness Chief Complaint: [...] Recent immobilization, Recent surgery or Recent travel [facility] Medical History (Updated 10/13/24 @ 12:13 by [...] intact bilaterally and no sensory deficits noted [place] Coma Scale: document GCS findings Spontaneous Obeys [...] [place] [address]. Labs: Laboratory Results - last 24 hr 10/13/24 08:50 WBC 8.4 RBC 2.94 L Hgb 9.4 L Hct 29.2 L MCV 99.3 H MCH 32.0 MCHC 32.2 RDW Std Deviation 58.7 H RDW Coeff of Mono 16.3 H Plt Count 252 MPV 9.3 Immature Gran % (Auto) 0.400 Neut % (Auto) 67.9 Lymph % (Auto) 20.8 Wirt % (Auto) 5.8 Eos % (Auto) 4.9 [...] 98 Calcium 9.9 [place] [address] H Radiography Chest X-Ray - ED: 2 View, Read by ED Physician, Read by Radiologist, Cardiomegaly (Borderline) and - (Mild vascular congestion) Diagnostic Testing: Clinical Impression(s) from Imaging Studies Chest X-Ray 10/13/24 08:32 IMPRESSION: Borderline cardiomegaly. Mild degree of vascular congestion and CHF. Reading Location: [id number] [place] and lateral chest x-ray was obtained. [...] anormal sinus rhythm with arate of 99. NH interval, QRS interval, and QTc intervals were all normal. [place] was normal. There are no acute ST [...] of his findings. Case was discussed with tents assembler who is covering for Dr. Higuera. He [...] Hypertension, Hypoxia Disposition Disposition: Acute Care Hospital [facility] What to do if you have Problems For any increased pain, shortness of breath, bleeding, nausea or vomiting, chestpain, or any unexpected problems, contact your Primary Care Provider. Call [employer] [facility] ([phone]) or report tothe closest Emergency Room. Call 911 if necessary. 10/13/24 1632 Cosigner Signature (if applicable): CC: No Primary Care Physician ~ Signed [facility]07-28-2025 Evaluation note* Diagnosis Onset Date Resolution Status [...] kidney disease deleted October 13, 2024 12:21pm [facility] Work Phone: 1(401) 176-821007-28-2025 Radiology Diagnostic study note [facility] Imaging Services [address] [place] [address] Chest PA and Lateral MR#: [id number] Acct: [id number] Name: LAWSON DOYLE Rep #: [id number] : 2000 M 24 From: Logan Rodney MD PCP: Care Physician,No Primary Status: REG ER Study:Chest PA and Lateral Date of Exam: 10/13/24 Exam# [id number] Ordering Dr: Arley Kirby DO PROCEDURE: CHEST [...] of vascular congestion and CHF. Reading Location: [id number] CC: Dr. Arley Kirby DO; No Primary Care Physician ~ Fur Blower: Signed [facility]07-18-2025 Radiology Diagnostic study note [facility] Imaging Services [address] [place] [address] Chest PA and Lateral MR#: [id number] Acct: [id number] Name: LAWSON DOYLE Rep #: [id number] : 2000 M 24 From: Farhad Castillo MD PCP: Care Physician,No Primary Status: REG ER Study:Chest PA and Lateral Date of Exam: 10/03/24 Exam# [id number] Ordering Dr: Hansel Herron DO PROCEDURE: CHEST [...] to reflect cardiogenic alveolar edema. Reading Location: [id number] CC: Dr. Josette Herron DO; No Primary Care Physician ~ Fur Blower: Signed [facility]07-18-2025 Radiology Diagnostic study note [facility] Imaging Services [address] [place] [address] 224351 Abdomen/Pelvis without Cont MR#: [id number] Acct: [id number] Name: LAWSON DOYLE Rep #: [id number] : 2000 M 24 From: Kings Massey MD PCP: Care Physician,No Primary Status: REG ER Study:Abdomen/Pelvis without Cont Date of Exa m: 10/03/24 Exam# [id number] Ordering Dr: Hansel Herron DO PROCEDURE: ABDOMEN/PELVIS [...] Cont IMPRESSION: No acute abnormality. Reading [facility] CC: Dr. Josette Herron, ; No Primary Care Physician ~ Fur Blower: Signed [facility]01-30-2025 History of Present illness Narrative* Maynor Og [...] PATIENT PRESENTS WITH AN IMPLANTABLE OR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 for referral (narrative)* Outpatient Procedure (Urgent) - Pending Review Specialty Diagnoses / Procedures Referred By [facility] Referred To Contact [facility] Diagnoses Acute renal failure, unspecified acute renal failure type (HCC) Complication of arteriovenous dialysis fistula, initial encounter ESRD (end stage renal disease) (HCC) Primary hypertension Procedures ECG COMPLETE ECG ROUTINE ECG W/LEAST 12 LDS W/I&[place] [address] [place] [address] [facility] [place] [address] [place] [address] Referral ID Status Reason Start Date Expiration Date Visits Requested Visits Authorized [id number] Pending Review Auto-Generat ed Referral 08/04/2023 08/02/20[address] [facility] (n[facility]ative)No reason for referral information availableWHocking [facility] Work Phone: Reason for visit Narrative* Outpatient Procedure (Routine) - Closed Specialty Diagnoses / Procedures Referred By Contayesha t Referred To [facility] Diagnoses ESRD on dialysis (HCC) Preop cardiovascular exam Procedures ECHO ECHO TTHRC R-T 2D W/WOM-MODE COMPL SPEC&COLR D Hua Wheeler MD [address] [place] [address] [facility] [place] [address] [place] [address] Referral ID Status Reason Start Date Expiration Date V isits Requested Visits Authorized [id number] Closed Auto-Generated Referral Patient Cleared - INN Insurance Found 12/28/2022 12/29/2023 [address] [facility] Summary Purpose Family History No Family History [...] Do you have a Healthcare Power of Veneer Drier? No October 03, 2024 5:15pm Advance Directive Response Recorded Date/ Time Do you have a Healthcare Power of Veneer Drier? No October 13, 2024 8:16am Do you have a Healthcare Power of Veneer Drier? No October 03, 2024 5:15pm Advance Directive Response Recorded Date/ Time Do you have a Healthcare Power of Veneer Drier? No October 13, 2024 1:37pm Do you have a Healthcare Power of Veneer Drier? No October 03, 2024 5:15pm Date Activated [...] Procedures CONSULT TO TRANSPLANT CENTER OFFICE/OUTPATIENT [facility] MDM 60-74 MINUTES CHEST X-RAY, FRONT&LAT ECG ROUTINE ECG W/LEAST 12 LDS TRCG ONLY W/O I&R CT ANGIOGRAPHY CHEST W/CONTRAST/NONCONTRAST CT ABDOMEN W & W/O CONTRAST Darryn Grant MD [address] [address] [place] [address] Referral ID Status Reason Start Date Expiration Date Visits Requested Visits Authorized [id number] Outside PCP Financial Clearance Required - OON Payor 09/12/2022 09/12/2023 99 99 Specialty Diagnoses / Procedures Referred By Contac t Referred To Contact TRANSPLANT Diagnoses Pre-transplant evaluation for kidney transplant Procedures CONSULT TO TRANSPLANT CENTER OFFICE/OUTPATIENT [facility] MDM 60-74 MINUTES CHEST X-RAY, FRONT&LAT ECG ROUTINE ECG W/LEAST 12 LDS TRCG ONLY W/O I&R CT ANGIOGRAPHY CHEST W/CONTRAST/NONCONTRAST CT ABDOMEN W & W/O CONTRAST Jaspal Bhat MD [address] [place] [address] [place] [address] Referral ID Status Reason Start Date Expiration Date Visits Requested Visits Authorized [id number] Authorized Financial Clearance Required - [employer]ON Payor Patient Cleared - INN Insurance Found 3 12/29/2023 99 99 Specialty Diagnoses / Procedures Referred By Contac t Referred To Contact TRANSPLANT Diagnoses Pre-transplant evaluation for ESRD (end stage renal disease) Procedures CONSULT TO TRANSPLANT CENTER OFFICE/OUTPATIENT [facility] MDM 60 MINUTES CHEST X-RAY, FRONT&LAT ECG ROUTINE ECG W/LEAST 12 LDS TRCG ONLY W/O I&R CT ANGIOGRAPHY CHEST W/CONTRAST/NONCONTRAST CT ABDOMEN W & W/O CONTRAST Hua Wheeler MD [address] [place] [address] [facility] [address] [place] [address] Referral ID Status Reason Start Date Expiration Date Visits Requested Visits Authorized [id number] Pending Review Financial Clearance Required - [employer] Payor 12/04/2023 09/11/2024 99 99 Specialty Diagnoses / Procedures Referred By Radha cartwright Referred [facility] Diagnoses Pre-transplant evaluation for ESRD (end stage renal disease) Procedures ECG COMPLETE ECG ROUTINE ECG W/LEAST 12 LDS W/I&R Hua Wheeler MD [address] [place] [id number] [facility] [place] [address] [place] [address] Referral ID Status Reason Start Date Expiration Date Visits Requested Visits Authorized [id number] Authorized Auto-Generat ed Referral 12/04/2023 09/11/2024 1 1 Specialty Diagnoses / Procedures Referred By Radha cartwright Referred To Contact CT [facility] Diagnoses Chronic renal failure, unspecified CKD stage Procedures CT ABD/PEL WO IVCON CT ABD & PELVIS W/O CONTRAST Hanh Seymour APRN.PROTEIN PURIFICATION SCIENTIST [id number] [facility] [place] [address] Referral ID Status Reason Start Date Expiration Date Visits Requested Visits Authorized [id number] Authorized Auto-Generat ed Referral 04/17/2024 04/04/2025 1 1 Referral ID Status Reason Start Date Expiration Date V isits Requested Visits Authorized [id number] Closed Auto-Generate d Referral 04/17/2024 04/04/2025 1 1 Chief Complaint and Reason for Visit Chief Complaint Admit Date abd pain October 03, 2024 4:39 pm Chief Complaint Admit Date abd pain October 03, 2024 4:39 pm VOLUME OVERLOAD SECONDARY TO DECOMPENSAT ED HEART October 13, 2024 12:21pm Reason for Visit Admit Date Hypoxia October 13, 2024 12:2 1pm Acute kidney injury superimposed on flare maker cat kidney disease October 13, 2024 12:21pm [...] 12:2 1pm Acute kidney injury superimposed on flare maker cat kidney disease October 13, 2024 12:21pm [...] section and content) DATE CREATED AUTHOR 01/08/2018 [facility] DATE CREATED AUTHOR AUTHOR'S ORGANIZ ATION 03/29/2022 [facility] DATE CREATED AUTHOR AUTHOR'S ORGANIZ ATION 04/21/2022 [facility] DATE CREATED AUTHOR AUTHOR'S ORGANIZ ATION 09/18/2022 [facility] DATE CREATED AUTHOR AUTHOR'S ORGANIZ ATION 05/20/2023 [facility] DATE CREATED AUTHOR AUTHOR'S ORGANIZ ATION 08/13/2023 [facility] DATE CREATED AUTHOR AUTHOR'S ORGANIZ ATION 03/12/2024 [facility] DATE CREATED AUTHOR AUTHOR'S ORGANIZ ATION 09/14/2024 [facility] DATE CREATED AUTHOR AUTHOR'S ORGANIZ ATION 09/18/2024 [facility] DATE CREATED AUTHOR AUTHOR'S ORGANIZ ATION 11/01/2024 [facility] DATE CREATED AUTHOR AUTHOR'S ORGANIZ ATION 01/09/2025 [facility] DATE CREATED AUTHOR AUTHOR'S ORGANIZ ATION 01/12/2025 [facility] DATE CREATED AUTHOR AUTHOR'S ORGANIZ ATION 01/29/2025 [...] or prosecute any alcohol or drug abuse patient.[facility] Center[facility] the event this information is protected by the Federal Confidentiality of Alcohol and Drug Abuse Patient Records regulations: The Federal rules restrict any use of the information to criminally investigate or prosecute any alcohol or drug abuse patient.[facility] CenterIn the event this information is protected by the Federal Confidentiality of Alcohol and Drug Abuse Patient Records regulations: The Federal rules restrict any use of the information to criminally investigate or prosecute any alcohol or drug abuse patient.[facility] CenterIn the event this information is protected by the Federal Confidentiality of Alcohol and Drug Abuse Patient Records regulations: The Federal rules restrict any use of the information to criminally investigate or prosecute any alcohol or drug abuse patient.[facility] CenterIn the event this information is protected by the Federal Confidentiality of Alcohol and Drug Abuse Patient Records regulations: The Federal rules restrict any use of the information to criminally investigate or prosecute any alcohol or drug abuse patient.[facility] CenterIn the event this information is protected by the Federal Confidentiality of Alcohol and Drug Abuse Patient Records regulations: The Federal rules restrict any use of the information to criminally investigate or prosecute any alcohol or drug abuse patient.[facility] CenterIn the event this information is protected by the Federal Confidentiality of Alcohol and Drug Abuse Patient Records regulations: The Federal rules restrict any use of the information to criminally investigate or prosecute any alcohol or drug abuse patient.[facility] CenterIn the event this information is protected by the Federal Confidentiality of Alcohol and Drug Abuse Patient Records regulations: The Federal rules restrict any use of the information to criminally investigate or prosecute any alcohol or drug abuse patient.[facility] CenterIn the event this information is protected by the Federal Confidentiality of Alcohol and Drug Abuse Patient Records regulations: The Federal rules restrict any use of the information to criminally investigate or prosecute any alcohol or drug abuse patient.[facility] CenterIn the event this information is protected by the Federal Confidentiality of Alcohol and Drug Abuse Patient Records regulations: The Federal rules restrict any use of the information to criminally investigate or prosecute any alcohol or drug abuse patient.[facility] CenterIn the event this information is protected by the Federal Confidentiality of Alcohol and Drug Abuse Patient Records regulations: The Federal rules restrict any use of the information to criminally investigate or prosecute any alcohol or drug abuse patient.[facility] CenterIn the event this information is protected by the Federal Confidentiality of Alcohol and Drug Abuse Patient Records regulations: The Federal rules restrict any use of the information to criminally investigate or prosecute any alcohol or drug abuse patient.[facility] CenterIn the event this information is protected by the Federal Confidentiality of Alcohol and Drug Abuse Patient Records regulations: The Federal rules restrict any use of the information to criminally investigate or prosecute any alcohol or drug abuse patient.[facility] CenterIn the event this information is protected by the Federal Confidentiality of Alcohol and Drug Abuse Patient Records regulations: The Federal rules restrict any use of the information to criminally investigate or prosecute any alcohol or drug abuse patient.[facility] CenterIn the event this information is protected by the Federal Confidentiality of Alcohol and Drug Abuse Patient Records regulations: The Federal rules restrict any use of the information to criminally investigate or prosecute any alcohol or drug abuse patient.[facility] CenterIn the event this information is protected by the Federal Confidentiality of Alcohol and Drug Abuse Patient Records regulations: The Federal rules restrict any use of the information to criminally investigate or prosecute any alcohol or drug abuse patient.[facility] CenterIn the event this information is protected by the Federal Confidentiality of Alcohol and Drug Abuse Patient Records regulations: The Federal rules restrict any use of the information to criminally investigate or prosecute any alcohol or drug abuse patient.[facility] CenterIn the event this information is protected by the Federal Confidentiality of Alcohol and Drug Abuse Patient Records regulations: The Federal rules restrict any use of the information to criminally investigate or prosecute any alcohol or drug abuse patient.[facility] CenterIn the event this information is protected by the Federal Confidentiality of Alcohol and Drug Abuse Patient Records regulations: The Federal rules restrict any use of the information to criminally investigate or prosecute any alcohol or drug abuse patient.[facility] CenterIn the event this information is protected by the Federal Confidentiality of Alcohol and Drug Abuse Patient Records regulations: The Federal rules restrict any use of the information to criminally investigate or prosecute any alcohol or drug abuse patient.[facility] CenterIn the event this information is protected by the Federal Confidentiality of Alcohol and Drug Abuse Patient Records regulations: The Federal rules restrict any use of the information to criminally investigate or prosecute any alcohol or drug abuse patient.[facility] CenterIn the event this information is protected by the Federal Confidentiality of Alcohol and Drug Abuse Patient Records regulations: The Federal rules restrict any use of the information to criminally investigate or prosecute any alcohol or drug abuse patient.[facility] CenterIn the event this information is protected by the Federal Confidentiality of Alcohol and Drug Abuse Patient Records regulations: The Federal rules restrict any use of the information to criminally investigate or prosecute any alcohol or drug abuse patient.[facility] CenterIn the event this information is protected by the Federal Confidentiality of Alcohol and Drug Abuse Patient Records regulations: The Federal rules restrict any use of the information to criminally investigate or prosecute any alcohol or drug abuse patient.[facility] CenterIn the event this information is protected by the Federal Confidentiality of Alcohol and Drug Abuse Patient Records regulations: The Federal rules restrict any use of the information to criminally investigate or prosecute any alcohol or drug abuse patient.[facility] CenterIn the event this information is protected by the Federal Confidentiality of Alcohol and Drug Abuse Patient Records regulations: The Federal rules restrict any use of the information to criminally investigate or prosecute any alcohol or drug abuse patient.[facility] CenterIn the event this information is protected by the Federal Confidentiality of Alcohol and Drug Abuse Patient Records regulations: The Federal rules restrict any use of the information to criminally investigate or prosecute any alcohol or drug abuse patient.[facility] CenterIn the event this information is protected by the Federal Confidentiality of Alcohol and Drug Abuse Patient Records regulations: The Federal rules restrict any use of the information to criminally investigate or prosecute any alcohol or drug abuse patient.[facility] CenterIn the event this information is protected by the Federal Confidentiality of Alcohol and Drug Abuse Patient Records regulations: The Federal rules restrict any use of the information to criminally investigate or prosecute any alcohol or drug abuse patient.[facility] CenterIn the event this information is protected by the Federal Confidentiality of Alcohol and Drug Abuse Patient Records regulations: The Federal rules restrict any use of the information to criminally investigate or prosecute any alcohol or drug abuse patient.[facility] CenterIn the event this information is protected by the Federal Confidentiality of Alcohol and Drug Abuse Patient Records regulations: The Federal rules restrict any use of the information to criminally investigate or prosecute any alcohol or drug abuse patient.[facility] CenterIn the event this information is protected by the Federal Confidentiality of Alcohol and Drug Abuse Patient Records regulations: The Federal rules restrict any use of the information to criminally investigate or prosecute any alcohol or drug abuse patient.[facility] CenterIn the event this information is protected by the Federal Confidentiality of Alcohol and Drug Abuse Patient Records regulations: The Federal rules restrict any use of the information to criminally investigate or prosecute any alcohol or drug abuse patient.[facility] CenterIn the event this information is protected by the Federal Confidentiality of Alcohol and Drug Abuse Patient Records regulations: The Federal rules restrict any use of the information to criminally investigate or prosecute any alcohol or drug abuse patient.[facility] CenterIn the event this information is protected by the Federal Confidentiality of Alcohol and Drug Abuse Patient Records regulations: The Federal rules restrict any use of the information to criminally investigate or prosecute any alcohol or drug abuse patient.[facility] CenterIn the event this information is protected by the Federal Confidentiality of Alcohol and Drug Abuse Patient Records regulations: The Federal rules restrict any use of the information to criminally investigate or prosecute any alcohol or drug abuse patient.[facility] CenterIn the event this information is protected by the Federal Confidentiality of Alcohol and Drug Abuse Patient Records regulations: The Federal rules restrict any use of the information to criminally investigate or prosecute any alcohol or drug abuse patient.[facility] CenterIn the event this information is protected by the Federal Confidentiality of Alcohol and Drug Abuse Patient Records regulations: The Federal rules restrict any use of the information to criminally investigate or prosecute any alcohol or drug abuse patient.[facility] CenterIn the event this information is protected by the Federal Confidentiality of Alcohol and Drug Abuse Patient Records regulations: The Federal rules restrict any use of the information to criminally investigate or prosecute any alcohol or drug abuse patient.[facility] CenterIn the event this information is protected by the Federal Confidentiality of Alcohol and Drug Abuse Patient Records regulations: The Federal rules restrict any use of the information to criminally investigate or prosecute any alcohol or drug abuse patient.[facility] CenterIn the event this information is protected by the Federal Confidentiality of Alcohol and Drug Abuse Patient Records regulations: The Federal rules restrict any use of the information to criminally investigate or prosecute any alcohol or drug abuse patient.[facility] CenterIn the event this information is protected by the Federal Confidentiality of Alcohol and Drug Abuse Patient Records regulations: The Federal rules restrict any use of the information to criminally investigate or prosecute any alcohol or drug abuse patient.[facility] CenterIn the event this information is protected by the Federal Confidentiality of Alcohol and Drug Abuse Patient Records regulations: The Federal rules restrict any use of the information to criminally investigate or prosecute any alcohol or drug abuse patient.[facility] CenterIn the event this information is protected by the Federal Confidentiality of Alcohol and Drug Abuse Patient Records regulations: The Federal rules restrict any use of the information to criminally investigate or prosecute any alcohol or drug abuse patient.[facility] CenterIn the event this information is protected by the Federal Confidentiality of Alcohol and Drug Abuse Patient Records regulations: The Federal rules restrict any use of the information to criminally investigate or prosecute any alcohol or drug abuse patient.[facility] CenterIn the event this information is protected by the Federal Confidentiality of Alcohol and Drug Abuse Patient Records regulations: The Federal rules restrict any use of the information to criminally investigate or prosecute any alcohol or drug abuse patient.[facility] CenterIn the event this information is protected by [...] or prosecute any alcohol or drug abuse patient.[facility] CenterIn the event this information is protected by the Federal Confidentiality of Alcohol and Drug Abuse Patient Records regulations: The Federal rules restrict any use of the information to criminally investigate or prosecute any alcohol or drug abuse patient.[facility] CenterIn the event this information is protected by the Federal Confidentiality of Alcohol and Drug Abuse Patient Records regulations: The Federal rules restrict any use of the information to criminally investigate or prosecute any alcohol or drug abuse patient.[facility] CenterIn the event this information is protected by the Federal Confidentiality of Alcohol and Drug Abuse Patient Records regulations: The Federal rules restrict any use of the information to criminally investigate or prosecute any alcohol or drug abuse patient.[facility] CenterIn the event this information is protected by the Federal Confidentiality of Alcohol and Drug Abuse Patient Records regulations: The Federal rules restrict any use of the information to criminally investigate or prosecute any alcohol or drug abuse patient.[facility] CenterIn the event this information is protected by the Federal Confidentiality of Alcohol and Drug Abuse Patient Records regulations: The Federal rules restrict any use of the information to criminally investigate or prosecute any alcohol or drug abuse patient.[facility] CenterIn the event this information is protected by the Federal Confidentiality of Alcohol and Drug Abuse Patient Records regulations: The Federal rules restrict any use of the information to criminally investigate or prosecute any alcohol or drug abuse patient.[facility] CenterIn the event this information is protected by the Federal Confidentiality of Alcohol and Drug Abuse Patient Records regulations: The Federal rules restrict any use of the information to criminally investigate or prosecute any alcohol or drug abuse patient.[facility] CenterIn the event this information is protected by the Federal Confidentiality of Alcohol and Drug Abuse Patient Records regulations: The Federal rules restrict any use of the information to criminally investigate or prosecute any alcohol or drug abuse patient.[facility] CenterIn the event this information is protected by the Federal Confidentiality of Alcohol and Drug Abuse Patient Records regulations: The Federal rules restrict any use of the information to criminally investigate or prosecute any alcohol or drug abuse patient.[facility] CenterIn the event this information is protected by the Federal Confidentiality of Alcohol and Drug Abuse Patient Records regulations: The Federal rules restrict any use of the information to criminally investigate or prosecute any alcohol or drug abuse patient.[facility] CenterIn the event this information is protected by the Federal Confidentiality of Alcohol and Drug Abuse Patient Records regulations: The Federal rules restrict any use of the information to criminally investigate or prosecute any alcohol or drug abuse patient.[facility] CenterIn the event this information is protected by the Federal Confidentiality of Alcohol and Drug Abuse Patient Records regulations: The Federal rules restrict any use of the information to criminally investigate or prosecute any alcohol or drug abuse patient.[facility] CenterIn the event this information is protected by the Federal Confidentiality of Alcohol and Drug Abuse Patient Records regulations: The Federal rules restrict any use of the information to criminally investigate or prosecute any alcohol or drug abuse patient.[facility] CenterIn the event this information is protected by the Federal Confidentiality of Alcohol and Drug Abuse Patient Records regulations: The Federal rules restrict any use of the information to criminally investigate or prosecute any alcohol or drug abuse patient.[facility] CenterIn the event this information is protected by the Federal Confidentiality of Alcohol and Drug Abuse Patient Records regulations: The Federal rules restrict any use of the information to criminally investigate or prosecute any alcohol or drug abuse patient.[facility] CenterIn the event this information is protected by the Federal Confidentiality of Alcohol and Drug Abuse Patient Records regulations: The Federal rules restrict any use of the information to criminally investigate or prosecute any alcohol or drug abuse patient.[facility] CenterIn the event this information is protected by the Federal Confidentiality of Alcohol and Drug Abuse Patient Records regulations: The Federal rules restrict any use of the information to criminally investigate or prosecute any alcohol or drug abuse patient.[facility] CenterIn the event this information is protected by the Federal Confidentiality of Alcohol and Drug Abuse Patient Records regulations: The Federal rules restrict any use of the information to criminally investigate or prosecute any alcohol or drug abuse patient.[facility] CenterIn the event this information is protected by the Federal Confidentiality of Alcohol and Drug Abuse Patient Records regulations: The Federal rules restrict any use of the information to criminally investigate or prosecute any alcohol or drug abuse patient.[facility] CenterIn the event this information is protected by the Federal Confidentiality of Alcohol and Drug Abuse Patient Records regulations: The Federal rules restrict any use of the information to criminally investigate or prosecute any alcohol or drug abuse patient.[facility]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
--- OUTSIDE RECORDS SUMMARY | 2025-01-31 04:03 | XMS RPT_ITS | CCD ---
Author Organization [facility] ion Partnership [facility] Care Team Providers Care Hotel Operations Manager Name Role Phone PAUL ARENAS Unavailable Unavailable [...] Primary Care Unavailable Darryn Grant MD Unavailable [phone] Ray Lyons Unavailable Natacha PEREIRA, Ivette Primary Care Provider Pcp INSTRUCTIONAL DESIGN TECHNOLOGIST, No Primary Care Provider Unavailabl e Pcp INSTRUCTIONAL DESIGN TECHNOLOGIST, No Primary Care Provider Unavailabl e NATACHA, IVETTE Primary Care Unavailable THEODORE LYNN Attending Unavailable Pcp INSTRUCTIONAL DESIGN TECHNOLOGIST, No Primary Care Provider Unavailabl e NATACHA, [...] LUI COOPER Admitting Unavail able Natacha PEREIRA, [facility] Primary Care Provider NATACHA, IVETTE Primary [...] Start: 03-21-2022 take 2 tablets by mo [facility] once daily amLODIPine 5 mg oral tablet [...] (PROTONIX) 40 mg tablet polyethylene glycol 3350 97725 mg powder for oral solution (1 source) [...] 03/29/2022 Active take 3 tablets by mo [facility] three times daily before mealtime sevelamer carbonate (Renvela) 800 mg tablet Take 3 tablets (2,400 mg) by mouth 3 times a day before meals. Active Comment on above: once daily. sodium zirconium cyclosilicate 87923 mg powder for oral suspension (1 source) [...] 0.1 mL by INTRADERMA L route. Vit B,X-Jf-Kzfj-Selen-Vit D3-E (Renaplex-D) 800 mcg-12.5 mg -2,000 unit tablet (1 source) Start: 02-11-2024 Vit B,L-Vy-Wuac-Selen-Vit D3-E (Renaplex-D) 800 mcg-12.5 mg -2,000 unit tablet Active 1 {tbl} PO DAILY February 11, 2024 1:00am vitamin Vit B,W-Hn-Rhzf-Selen-Vit D3-E [Vit B,C-Folic Ac 800 Mcg-Zinc 12.5 Mg-Selen-D3 2,000 Unit-Vit E Tablet] (Vit B,C-Folic Ac 800 Mcg-Zinc 12.5 Mg-Selen-D3 ) 800 mcg-12.5 mg -2,000 unit tablet (2 sources) Start: 02-11-2024 Vit B,D-Sa-Kfsc-Selen-Vit D3-E [Vit B,C-Folic Ac 800 Mcg-Zinc 12.5 [...] are negative. PAST HISTORY Past Medical History: @[facility]@ Past Surgical History: has no past [...] Patient could (more content not included)... Normal [facility] POC BASIC METABOLIC PANEL - Windy 01-22-2025 Chloride [Moles/Vol] 103 mmol/L Normal 98-108 [facility] Comment on above: Order Comment: Criti gurmeet result acted upon time of test. Test performed at bedside. [facility] has implemented the eGFR calculation approach that does not have a coefficient for race that conforms to the NKF-ASN Task Force Recommendations. CO2 [Moles/Vol] 27 mmol/L Normal 21-32 [facility] Comment on above: Order Comment: Criti gurmeet result acted upon time of test. Test performed at bedside. [facility] has implemented the eGFR calculation approach that does not have a coefficient for race that conforms to the NKF-ASN Task Force Recommendations. Creatinine [Mass/Vol] 12.54 mg/dL Off scale high 0.50-1.30 [facility] Comment on above: Order Comment: Criti gurmeet result acted upon time of test. Test performed at bedside. [facility] has implemented the eGFR calculation approach that does not have a coefficient for race that conforms to the NKF-ASN Task Force Recommendations. Glucose [Mass/Vol] 96 mg/dL Normal 65-99 [facility] Comment on above: Order Comment: Criti gurmeet result acted upon time of test. Test performed at bedside. [facility] has implemented the eGFR calculation approach that does not have a coefficient for race that conforms to the NKF-ASN Task Force Recommendations. POC GFR 5 mL/min/1.73 m2 Low >=60 [facility] Comment on above: Order Comment: Criti gurmeet result acted upon time of test. Test performed at bedside. [facility] has implemented the eGFR calculation approach that does not have a coefficient for race that conforms to the NKF-ASN Task Force Recommendations. Result Comment: Gentry mated GFR was calculated using the 2020 CKD-EPI creatinine equation. POC IONIZED CALCIUM 4.4 mg/dL Low 4.5-5.3 [facility] Comment on above: Order Comment: Criti gurmeet result acted upon time of test. Test performed at bedside. [facility] has implemented the eGFR calculation approach that does not have a coefficient for race that conforms to the NKF-ASN Task Force Recommendations. Potassium [Moles/Vol] 7.0 mmol/L Off scale high 3.5-5.1 [facility] Comment on above: Order Comment: Criti gurmeet result acted upon time of test. Test performed at bedside. [facility] has implemented the eGFR calculation approach that does not have a coefficient for race that conforms to the NKF-ASN Task Force Recommendations. Sodium [Moles/Vol] 135 mmol/L Normal 135-145 [facility] Comment on above: Order Comment: Criti gurmeet result acted upon time of test. Test performed at bedside. [facility] has implemented the eGFR calculation approach that does not have a coefficient for race that conforms to the NKF-ASN Task Force Recommendations. Urea nitrogen [Mass/Vol] 45 mg/dL High 8-25 [facility] Comment on above: Order Comment: Criti gurmeet result acted upon time of test. Test performed at bedside. [facility] has implemented the eGFR calculation approach that does not have a coefficient for race that conforms to the NKF-ASN Task Force Recommendations. POC CBC AND DIFFERENTIALon 03-24-2024 BASOPHILS ABSOLUTE COUNT 0.03 K/mcL Normal 0.00-0.30 [facility] Basophils/100 WBC (Bld) 0.3 % Normal [facility] Eosinophils (Bld) [#/Vol] 0.12 10*3/uL Normal 0.00-0.50 [facility] Eosinophils/100 WBC (Bld) 1.2 % Normal [facility] Erythrocyte distribution width (RBC) [Ratio] 18.5 % High 11.6-14.8 [facility] Hematocrit (Bld) [Volume fraction] 33.6 % Low 41.0-53.0 [facility] Hemoglobin (Bld) [Mass/Vol] 10.3 g/dL Low 13.5-17.5 [facility] IG ABSOLUTE 0.01 K/mcL Normal 0.00-0.30 [facility] IG PERCENT 0.10 % Normal [facility] Comment on above: Result Comment: The IG parameter is the percentage of metamyelocytes, myelocytes and promyelocytes. An immature granulocyte count (IG) of 1% or more suggests the possibility of infection, an IG count of 3% is very likely related to an infection. Lymphocytes (Bld) [#/Vol] 1.04 10*3/uL Normal 0.90-4.00 [facility] Lymphocytes/100 WBC (Bld) 10.5 % Normal [facility] MCH (RBC) [Entitic mass] 30.2 pg Normal 26.0-34.0 [facility] MCV (RBC) [Entitic vol] 98.5 fL Normal 80.0-100.0 [facility] MEAN CORPUSCULAR HEMOGLOBIN CONC 30.7 g/dL Low 31.0-37.0 [facility] Monocytes (Bld) [#/Vol] 0.44 10*3/uL Normal 0.30-0.90 [facility] Monocytes/100 WBC (Bld) 4.5 % Normal [facility] NEUTROPHILS ABSOLUTE COUNT 8.23 K/mcL High 1.70-7.00 [facility] Neutrophils/100 WBC (Bld) 83.4 % Normal [facility] Platelet mean volume (Bld) [Entitic vol] 9.5 fL Normal 9.4-12.4 [facility] Platelets (Bld) [#/Vol] 230 10*3/uL Normal 150-400 [facility] RBC (Bld) [#/Vol] 3.41 10*6/uL Low 4.50-5.90 [facility] WBC (Bld) [#/Vol] 9.87 10*3/uL Normal 4.50-11.00 [facility] POC LIVER PANEL PLUS RALSon 01-22-2025 Albumin [Mass/Vol] 4.5 g/dL Normal 3.2-5.2 [facility] ALP [Catalytic activity/Vol] 64 U/L Normal 40-140 [facility] ALT [Catalytic activity/Vol] 17 U/L Normal 0-40 [facility] Amylase [Catalytic activity/Vol] 11 U/L Low 25-115 [facility] Amylase [Catalytic activity/Vol] 25 U/L Normal 11-51 [facility] AST [Catalytic activity/Vol] 20 U/L Normal 0-45 [facility] Bilirubin [Mass/Vol] 1.1 mg/dL Normal 0.0-1.3 [facility] Protein [Mass/Vol] 6.9 g/dL Normal 6.0-8.0 [facility] Basic metabolic 2000 panelon 01-06-2025 Anion gap [...] race variable for the IDMS-Traceable creatinine methods. https://jasn.asnjournals.org/content//ASN.059692 9299 Glucose [Mass/Vol] 83 mg/dL 74 - 99 [...] [Mass/Vol] 20 mg/dL 6 - 23 mg/dL [facility] Anion gap [Moles/Vol] 16 mmol/L Normal 10-20 [facility] Comment on above: Performed By: #### 5 902-2 #### ALIVIA WALLACE ([id number]) [facility] [address] [place] [address] Calcium [Mass/Vol] 9.0 mg/dL Normal 8.6-10.3 [facility] Comment on above: Performed By: #### 5 902-2 #### ALIVIA WALLACE ([id number]) [facility] [address] [place] [address] Chloride [Moles/Vol] 99 mmol/L Normal 98-107 [facility] Comment on above: Performed By: #### 5 902-2 #### ALIVIA WALLACE ([id number]) [facility] [address] [place] [address] CO2 [Moles/Vol] 30 mmol/L Normal 21-32 [facility] Comment on above: Performed By: #### 5 902-2 #### ALIVIA WALLACE ([id number]) [facility] [address] [place] [address] Creatinine [Mass/Vol] 7.40 mg/dL High 0.50-1.30 [facility] Comment on above: Performed By: #### 5 902-2 #### ALIVIA WALLACE ([id number]) [facility] [address] [place] [address] 25875 Glomerular filtration rate 10 mL/min/1.73m*2 Low >60 [facility] Comment on above: Result Comment: Calc ulations of estimated GFR are performed using the 2020 CKD-EPI Study Refit equation without the race variable for the IDMS-Traceable creatinine methods. https://jasn.asnjournals.org/content/early//ASN.371025 8973 Performed By: #### 5 902-2 #### ALIVIA WALLACE ([id number]) [facility] [address] [place] [address] 48672 Glucose [Mass/Vol] 83 mg/dL Normal 74-99 [facility] Comment on above: Performed By: #### 5 902-2 #### ALIVIA WALLACE ([id number]) [facility] [address] [place] [address] 67009 Potassium [Moles/Vol] 5.7 mmol/L High 3.5-5.3 [facility] Comment on above: Performed By: #### 5 902-2 #### ALIVIA WALLACE ([id number]) [facility] [address] [place] [address] 60831 Sodium [Moles/Vol] 139 mmol/L Normal 136-145 [facility] Comment on above: Performed By: #### 5 902-2 #### ALIVIA WALLACE ([id number]) [facility] [address] [place] [address] 55760 Urea nitrogen [Mass/Vol] 20 mg/dL Normal 6-23 [facility] Comment on above: Performed By: #### 5 902-2 #### ALIVIA WALLACE ([id number]) [facility] [address] [place] [address] 47765 CBC W Auto Differential pane l (Bld)on [...] Hospital RBC (Bld) [#/Vol] 3.00 10*6/uL Low [facility] WBC (Bld) [#/Vol] 7.2 10*3/uL [facility] Basophils (Bld) [#/Vol] 0.02 x10*3/uL Normal 0.00-0.10 [facility] Comment on above: Performed By: #### 5 902-2 #### ALIVIA WALLACE ([id number]) [facility] ([facility]) [address] [place] [address] 05335 Basophils/100 WBC (Bld) 0.3 % Normal 0.0-2.0 [facility] Comment on above: Performed By: #### 5 902-2 #### ALIVIA WALLACE ([id number]) [facility] [address] [place] [address] 29082 Eosinophils (Bld) [#/Vol] 0.52 x10*3/uL Normal 0.00-0.70 [facility] Comment on above: Performed By: #### 5 902-2 #### ALIVIA WALLACE ([id number]) [facility] [address] [place] [address] 44085 Eosinophils/100 WBC (Bld) 7.3 % Normal 0.0-6.0 [facility] Comment on above: Performed By: #### 5 902-2 #### ALIVIA WALLACE ([id number]) [facility] [address] [place] [address] Erythrocyte distribution width (RBC) [Ratio] 18.6 % High 11.5-14.5 [facility] Comment on above: Performed By: #### 5 902-2 #### ALIVIA WALLACE ([id number]) [facility] [address] [place] [address] Hematocrit (Bld) [Volume fraction] 29.4 % Low 41.0-52.0 [facility] Comment on above: Performed By: #### 5 902-2 #### ALIVIA WALLACE ([id number]) [facility] [address] [place] [address] Hemoglobin (Bld) [Mass/Vol] 9.2 g/dL Low 13.5-17.5 [facility] Comment on above: Performed By: #### 5 902-2 #### ALIVIA WALLACE ([id number]) [facility]) [address] [place] [address] Immature granulocytes (Bld) [#/Vol] 0.03 x10*3/uL Normal 0.00-0.70 [facility] Comment on above: Performed By: #### 5 902-2 #### ALIVIA WALLACE ([id number]) [facility] [address] [place] [address] Immature granulocytes/100 WBC (Bld) 0.4 % Normal 0.0-0.9 [facility] Comment on above: Result Comment: Litzy ture Granulocyte Count (IG) includes promyelocytes, myelocytes and metamyelocytes but does not include bands. Percent differential counts (%) should be interpreted in the context of the absolute cell counts (cells/UL). Performed By: #### 5 902-2 #### ALIVIA WALLACE ([id number]) [facility] [address] [place] [address] 25010 Lymphocytes (Bld) [#/Vol] 1.58 x10*3/uL Normal 1.20-4.80 [facility] Comment on above: Performed By: #### 5 902-2 #### ALIVIA WALLACE ([id number]) [facility] [address] [place] [address] 99959 Lymphocytes/100 WBC (Bld) 22.1 % Normal 13.0-44.0 [facility] Comment on above: Performed By: #### 5 902-2 #### ALIVIA WALLACE ([id number]) [facility] ([facility] [address] [place] [address] 89611 MCH (RBC) [Entitic mass] 30.7 pg Normal 26.0-34.0 [facility] Comment on above: Performed By: #### 5 902-2 #### ALIVIA WALLACE ([id number]) [facility] [address] [place] [address] 08661 MCHC (RBC) [Mass/Vol] 31.3 g/dL Low 32.0-36.0 [facility] Comment on above: Performed By: #### 5 902-2 #### ALIVIA WALLACE ([id number]) [facility] [address] [place] [address] 18964 MCV (RBC) [Entitic vol] 98 fL Normal 80-100 [facility] Comment on above: Performed By: #### 5 902-2 #### ALIVIA WALLACE ([id number]) [facility]) [address] [place] [address] 84627 Monocytes (Bld) [#/Vol] 0.40 x10*3/uL Normal 0.10-1.00 [facility] Comment on above: Performed By: #### 5 902-2 #### ALIVIA WALLACE ([id number]) [facility]) [address] [place] [address] 80029 Monocytes/100 WBC (Bld) 5.6 % Normal 2.0-10.0 [facility] Comment on above: Performed By: #### 5 902-2 #### ALIVIA WALLACE ([id number]) [facility]) [address] [place] [address] 07841 Neutrophils (Bld) [#/Vol] 4.60 x10*3/uL Normal 1.20-7.70 [facility] Comment on above: Result Comment: Perc ent differential counts (%) should be interpreted in the context of the absolute cell counts (cells/uL). Performed By: #### 5 902-2 #### ALIVIA WALLACE ([id number]) [facility] ([facility]) [address] [place] [address] 84806 Neutrophils/100 WBC (Bld) 64.3 % Normal 40.0-80.0 [facility] Comment on above: Performed By: #### 5 902-2 #### ALIVIA WALLACE ([id number]) [facility]) [address] [place] [address] 16384 Nucleated RBC/100 WBC (Bld) [Ratio] 0.0 /100 WBCs Normal 0.0-0.0 [facility] Comment on above: Performed By: #### 5 902-2 #### ALIVIA WALLACE ([id number]) [facility]) [address] [place] [address] 65570 Platelets (Bld) [#/Vol] 250 x10*3/uL Normal 150-450 [facility] Comment on above: Performed By: #### 5 902-2 #### ALIVIA WALLACE ([id number]) [facility]) [address] [place] [address] 44265 RBC (Bld) [#/Vol] 3.00 x10*6/uL Low 4.50-5.90 [facility] Comment on above: Performed By: #### 5 902-2 #### ALIVIA WALLACE ([id number]) [facility] [address] [place] [address] WBC (Bld) [#/Vol] 7.2 x10*3/uL Normal 4.4-11.3 [facility] Comment on above: Performed By: #### 5 902-2 #### SHAKIRIBELIMALISSA DERRICK KWONG ([id number]) [facility]) [address] [place] [address] Extra Urine Arana TubeOrdered By: Michael Pizarro on 01-06-2025 Extra Tube [facility] Work Phone: [facility] Work Phone: HBV surface Ab Qn (S)on 12-18 Interpretation and review of laboratory results Abnormal [facility] HBV surface Ag IA Qlon 01-06 Interpretation and review of laboratory results Normal [facility] Hepatitis B surface antibody on 01-06-2025 HBV surface Ab Qn (S) 514.7 High NINF [facility] Comment on above: Interpretive Criteri a: <10 [...] surface Ag IA Ql Non-Reactive Nonreactive U [facility] Comment on above: Biotin interference may cause falsely decreased results. Patients taking a Biotin dose of up to 5 mg/day should refrain from taking Biotin for 24 hours before sample collection. Providers may contact their local laboratory for further information. Magnesiumon 01-06-2025 Magnesium [Mass/Vol] 2.26 mg/dL 1.60 - 2.40 mg/dL [facility] Magnesium [Mass/Vol] 2.26 mg/dL Normal 1.60-2.40 [facility] Comment on above: Performed By: #### 5 902-2 #### ALIVIA WALLACE ([id number]) [facility] ([facility]) [address] [place] [address] 02250 Magnesium [Mass/Vol]on 01-06 Interpretation and review of laboratory results Normal [facility] Phosphateon 01-06-2025 Phosphate [Mass/Vol] 6.2 mg/dL High 2.5-4.9 [facility] Comment on above: Performed By: #### 2 524-7 #### ALIVIA WALLACE ([id number]) [facility] ([facility]) [address] [place] [address] 70420 Phosphate [Mass/Vol]on 01-06 Interpretation and review of laboratory results Abnormal [facility] Phosphoruson 01-06-2025 Phosphate [Mass/Vol] 6.2 mg/dL High 2.5 - 4 .9 mg/dL [facility] Transferrinon 01-06-2025 Transferrin [Mass/Vol] 173 mg/dL Low 200 - 360 mg/dL [facility] Transferrin [Mass/Vol] 173 mg/dL Low 200-360 [facility] Comment on above: Performed By: #### 2 524-7 #### ALIVIA WALLACE ([id number]) [facility] ([facility]) [address] [place] [address] 71965 Transferrin [Mass/Vol]on Interpretation and review of laboratory results Abnormal [facility] CBC W Auto Differential pane l [...] RBC (Bld) [#/Vol] 3.31 10*6/uL [facility] WBC (Bld) [#/Vol] 10.3 10*3/uL [facility] Basophils (Bld) [#/Vol] 0.04 x10*3/uL Normal 0.00-0.10 [facility] Comment on above: Performed By: #### 5 7021-8 #### ALIVIA WALLACE ([id number]) [facility]) [address] [place] [address] 37342 Basophils/100 WBC (Bld) 0.4 % Normal 0.0-2.0 [facility] Comment on above: Performed By: #### 5 7021-8 #### ALIVIA WALLACE ([id number]) [facility]) [address] [place] [address] 80479 Eosinophils (Bld) [#/Vol] 0.43 x10*3/uL Normal 0.00-0.70 [facility] Comment on above: Performed By: #### 5 7021-8 #### ALIVIA WALLACE ([id number]) [facility]) [address] [place] [address] 66479 Eosinophils/100 WBC (Bld) 4.2 % Normal 0.0-6.0 [facility] Comment on above: Performed By: #### 5 7021-8 #### ALIVIA WALLACE ([id number]) [facility]) [address] [place] [address] 61794 Erythrocyte distribution width (RBC) [Ratio] 19.2 % High 11.5-14.5 [facility] Comment on above: Performed By: #### 5 7021-8 #### ALIVIA WALLACE ([id number]) [facility]) [address] [place] [address] 00073 Hematocrit (Bld) [Volume fraction] 32.3 % Low 41.0-52.0 [facility] Comment on above: Performed By: #### 5 7021-8 #### ALIVIA WALLACE ([id number]) [facility]) [address] [place] [address] 85269 Hemoglobin (Bld) [Mass/Vol] 10.2 g/dL Low 13.5-17.5 [facility] Comment on above: Performed By: #### 5 7021-8 #### ALIVIA WALLACE ([id number]) [facility]) [address] [place] [address] 51099 Immature granulocytes (Bld) [#/Vol] 0.04 x10*3/uL Normal 0.00-0.70 [facility] Comment on above: Performed By: #### 5 7021-8 #### ALIVIA WALLACE ([id number]) [facility] ([facility]) [address] [place] [address] 89323 Immature granulocytes/100 WBC (Bld) 0.4 % Normal 0.0-0.9 [facility] Comment on above: Result Comment: Litzy ture Granulocyte Count (IG) includes promyelocytes, myelocytes and metamyelocytes but does not include bands. Percent differential counts (%) should be interpreted in the context of the absolute cell counts (cells/UL). Performed By: #### 5 7021-8 #### ALIVIA WALLACE ([id number]) [facility]) [address] [place] [address] 92438 Lymphocytes (Bld) [#/Vol] 1.85 x10*3/uL Normal 1.20-4.80 [facility] Comment on above: Performed By: #### 5 7021-8 #### ALIVIA WALLACE ([id number]) [facility]) [address] [place] [address] 77189 Lymphocytes/100 WBC (Bld) 18.0 % Normal 13.0-44.0 [facility] Comment on above: Performed By: #### 5 7021-8 #### ALIVIA WALLACE ([id number]) [facility]) [address] [place] [address] 66136 MCH (RBC) [Entitic mass] 30.8 pg Normal 26.0-34.0 [facility] Comment on above: Performed By: #### 5 7021-8 #### ALIVIA WALLACE ([id number]) [facility] ([facility]) [address] [place] [address] MCHC (RBC) [Mass/Vol] 31.6 g/dL Low 32.0-36.0 [facility] Comment on above: Performed By: #### 5 7021-8 #### ALIVIA WALLACE ([id number]) [facility]) [address] [place] [address] MCV (RBC) [Entitic vol] 98 fL Normal 80-100 [facility] Comment on above: Performed By: #### 5 7021-8 #### ALIVIA WALLACE ([id number]) [facility]) [address] [place] [address] Monocytes (Bld) [#/Vol] 0.44 x10*3/uL Normal 0.10-1.00 [facility] Comment on above: Performed By: #### 5 7021-8 #### ALIVIA WALLACE ([id number]) [facility]) [address] [place] [address] Monocytes/100 WBC (Bld) 4.3 % Normal 2.0-10.0 [facility] Comment on above: Performed By: #### 5 7021-8 #### ALIVIA WALLACE ([id number]) [facility]) [address] [place] [address] 71219 Neutrophils (Bld) [#/Vol] 7.49 x10*3/uL Normal 1.20-7.70 [facility] Comment on above: Result Comment: Perc ent differential counts (%) should be interpreted in the context of the absolute cell counts (cells/uL). Performed By: #### 5 7021-8 #### ALIVIA WALLACE ([id number]) [facility]) [address] [place] [address] Neutrophils/100 WBC (Bld) 72.7 % Normal 40.0-80.0 [facility] Comment on above: Performed By: #### 5 7021-8 #### ALIVIA WALLACE ([id number]) [facility]) [address] [place] [address] 44359 Nucleated RBC/100 WBC (Bld) [Ratio] 0.0 /100 WBCs Normal 0.0-0.0 [facility] Comment on above: Performed By: #### 5 7021-8 #### ALIVIA WALLACE ([id number]) [facility] ([facility]) [address] [place] [address] 32383 Platelets (Bld) [#/Vol] 306 x10*3/uL Normal 150-450 [facility] Comment on above: Performed By: #### 5 7021-8 #### ALIVIA WALLACE ([id number]) [facility] ([facility]) [address] [place] [address] 13443 RBC (Bld) [#/Vol] 3.31 x10*6/uL Low 4.50-5.90 [facility] Comment on above: Performed By: #### 5 7021-8 #### ALIVIA WALLACE ([id number]) [facility] ([facility]) [address] [place] [address] 44291 WBC (Bld) [#/Vol] 10.3 x10*3/uL Normal 4.4-11.3 [facility] Comment on above: Performed By: #### 5 7021-8 #### ALIVIA WALLACE ([id number]) [facility] ([facility]) [address] [place] [address] ABDOMEN PELVIS WO IV CONT RASTon 01-05-2025 CT ABDOMEN PELVIS WO IV CONTRAST STUDY: CT Abdomen and Pelvis without IV Contrast; 01/05/2025, 12:45 PM INDICATION: Upper abdominal pain. COMPARISON: CT CAP 05/09/2023, 03/18/2022, CT AP 03/04/2022. ACCESSION NUMBER(S): [id number] ORDERING CLINICIAN: MEKHI WEEMS TECHNIQUE: CT of [...] passive congestion. Signed by Behzad Chicas MD [facility] CT Abdomen WO contraston Small to [...] 05/09/2023, 03/18/2022, CT AP 03/04/2022. ACCESSION NUMBER(S): [id number] ORDERING CLINICIAN: MEKHI WEEMS TECHNIQUE: CT of [...] 05/09/2023, 03/18/2022, CT AP 03/04/2022. ACCESSION NUMBER(S): [id number] ORDERING CLINICIAN: MEKHI WEEMS TECHNIQUE: CT of [...] Coag (PPP) [Time] 14.2 s High 9.8-12.4 [facility] Comment on above: Performed By: #### 5 902-2 #### ALIVIA WALLACE ([id number]) [facility] ([facility]) [address] [place] [address] Comprehensive metabolic 2000 panelon 01-05-2025 Albumin BCP [...] race variable for the IDMS-Traceable creatinine methods. https://jasn.asnjournals.org/content//ASN.631661 4691 Glucose [Mass/Vol] 90 mg/dL 74 - 99 [...] 47 mg/dL High 6 - 23 mg/dL [facility] Albumin BCP dye [Mass/Vol] 4.4 g/dL Normal 3.4-5.0 [facility] Comment on above: Performed By: #### 2 4323-8 #### ALIVIA WALLACE ([id number]) [facility] ([facility]) [address] [place] [address] 77417 ALP [Catalytic activity/Vol] 62 U/L Normal 33-120 [facility] Comment on above: Performed By: #### 2 4323-8 #### ALIVIA WALLACE ([id number]) [facility] ([facility]) [address] [place] [address] 13823 ALT With P-5'-P [Catalytic activity/Vol] 24 U/L Normal 10-52 [facility] Comment on above: Result Comment: Lalita ents treated with Sulfasalazine may generate falsely decreased results for ALT. Performed By: #### 2 4323-8 #### ALIVIA WALLACE ([id number]) [facility] ([facility]) [address] [place] [address] 39258 Anion gap [Moles/Vol] 24 mmol/L High 10-20 [facility] Comment on above: Performed By: #### 2 4323-8 #### ALIVIA WALLACE ([id number]) [facility] ([facility]) [address] [place] [address] AST With P-5'-P [Catalytic activity/Vol] 12 U/L Normal 9-39 [facility] Comment on above: Performed By: #### 2 4323-8 #### ALIVIA WALLACE ([id number]) [facility] ([facility]) [address] [place] [address] 91774 Bilirubin [Mass/Vol] 0.9 mg/dL Normal 0.0-1.2 [facility] Comment on above: Performed By: #### 2 4323-8 #### ALIVIA WALLACE ([id number]) [facility] ([facility]) [address] [place] [address] 98738 Calcium [Mass/Vol] 9.8 mg/dL Normal 8.6-10.3 [facility] Comment on above: Performed By: #### 2 4323-8 #### SHAKIRIBELIMALISSA MEZALISSETH DORETHA ([id number]) [facility] ([facility]) [address] [place] [address] 71315 Chloride [Moles/Vol] 95 mmol/L Low 98-107 [facility] Comment on above: Performed By: #### 2 4323-8 #### ALIVIA WALLACE ([id number]) [facility] ([facility]) [address] [place] [address] 71594 CO2 [Moles/Vol] 26 mmol/L Normal 21-32 [facility] Comment on above: Performed By: #### 2 4323-8 #### SHAKIRIBDEBBY WALLACE ([id number]) [facility] ([facility]) [address] [place] [address] 90011 Creatinine [Mass/Vol] 12.58 mg/dL High 0.50-1.30 [facility] Comment on above: Performed By: #### 2 4323-8 #### SHAKIRIBDEBBY MEZA RIO DORETHA ([id number]) [facility] ([facility]) [address] [place] [address] 20693 Glomerular filtration rate 5 mL/min/1.73m*2 Low >60 [facility] Comment on above: Result Comment: Calc ulations of estimated GFR are performed using the 2020 CKD-EPI Study Refit equation without the race variable for the IDMS-Traceable creatinine methods. https://jasn.asnjournals.org/content//ASN.510355 1975 Performed By: #### 2 4323-8 #### ALIVIA WALLACE ([id number]) [facility] ([facility]) [address] [place] [address] Glucose [Mass/Vol] 90 mg/dL Normal 74-99 [facility] Comment on above: Performed By: #### 2 4323-8 #### SHAKIRIBDEBBY WALLACE ([id number]) [facility] ([facility]) [address] [place] [address] 24107 Potassium [Moles/Vol] 7.5 mmol/L Critically high 3.5-5.3 [facility] Comment on above: Performed By: #### 2 4323-8 #### SHAKIRIBDEBBY WALLACE ([id number]) [facility] ([facility]) [address] [place] [address] 95105 Protein [Mass/Vol] 6.7 g/dL Normal 6.4-8.2 [facility] Comment on above: Performed By: #### 2 4323-8 #### SHAKIRIBDEBBY WALLACE ([id number]) [facility] ([facility]) [address] [place] [address] 64888 Sodium [Moles/Vol] 137 mmol/L Normal 136-145 [facility] Comment on above: Performed By: #### 2 4323-8 #### SHAKIRIBDEBBY WALLACE ([id number]) [facility] ([facility]) [address] [place] [address] 25084 Urea nitrogen [Mass/Vol] 47 mg/dL High 6-23 [facility] Comment on above: Performed By: #### 2 4323-8 #### SHAKIRIBDEBBY MEZA RIO DORETHA ([id number]) [facility] ([facility]) [address] [place] [address] 49860 Critical Careon 01-05-2025 Juju Ramesh 01/05/2025 11:29 [...] Q-T Interval 370 QTC Calculation(Bazett) 493 P Haywood 61 R Haywood 108 T Haywood 59 QRS Count 17 Q Onset 214 P Onset 132 P Offset 192 T Offset 399 QTC Fredericia 448 Diagnosis Sinus tachycardia Possible Left atrial enlargement Rightward axis Borderline ECG When compared with ECG of 09-MAY-2023 17:04, QRS axis Shifted right See ED provider note for full interpretation and clinical correlation Confirmed by Vira West ([id number]) on 01/07/2025 3:20:36 PM Normal [facility] Ferritinon 01-05-2025 Ferritin [Mass/Vol] 4079 ng/mL High 20 - 300 ng/mL [facility] Ferritin [Mass/Vol] 4079 ng/mL High 20-300 [facility] Comment on above: Performed By: #### 5 902-2 #### ALIVIA WALLACE ([id number]) [facility] ([facility]) [address] [place] [address] 29422 Ferritin [Mass/Vol]on 2024 Interpretation and review of laboratory results Abnormal [facility] Glucose Test strip manual (B ld) [Mass/Vol]on 01-05-2025 Glucose [Mass/Vol] 75 mg/dL 74 - 99 mg/dL [facility] Interpretation and review of laboratory results Normal [facility] Glucose [Mass/Vol] 75 mg/dL Normal 74-99 [facility] Comment on above: Performed By: #### 2 341-6 #### ALIVIA WALLACE ([id number]) [facility] ([facility]) [address] [place] [address] Hepatitis B virus surface Ab on 01-05-2025 HBV surface Ab Qn (S) 514.7 mIU/mL High <10.0 U [facility] Comment on above: Result Comment: Inte [...] By: #### 5 902-2 #### ALIVIA WALLACE ([id number]) [facility] ([facility]) [address] [place] [address] Hepatitis B virus surface Ag on 01-05-2025 HBV surface Ag IA Ql Non-Reactive Normal Nonreactive [facility] Comment on above: Result Comment: Biot in interference may cause falsely decreased results. Patients taking a Biotin dose of up to 5 mg/day should refrain from taking Biotin for 24 hours before sample collection. Providers may contact their local laboratory for further information. Performed By: #### 5 902-2 #### ALIVIA WALLACE ([id number]) [facility] ([facility]) [address] [place] [address] Influenza virus A and B and SARS-CoV-2 [...] and has been validated for use at [facility]. Negative results do not preclude COVID-19/ Influenza A/B infections and should not be used as the sole basis for diagnosis, treatment, or other management decisions. Testing for SARS CoV-2 is recommended only for patients who meet current clinical and/or epidemiological criteria defined by federal, state, or local public health directives. [facility] FLUAV RNA MIGUEL+probe Ql (Resp) Not detected Normal Not Detected [facility] Comment on above: Order Comment: This assay is an FDA-cleared, in vitro diagnostic nucleic acid amplification test for the qualitative detection and differentiation of SARS CoV-2/ Influenza A/B from nasopharyngeal specimens collected from individuals with signs and symptoms of respiratory tract infections, and has been validated for use at [facility]. Negative results do not preclude COVID-19/ Influenza A/B infections and should not be used as the sole basis for diagnosis, treatment, or other management decisions. Testing for SARS CoV-2 is recommended only for patients who meet current clinical and/or epidemiological criteria defined by federal, state, or local public health directives. Performed By: #### 9 5423-0 #### ALIVIA WALLACE ([id number]) [facility] ([facility]) [address] [place] [address] FLUBV RNA MIGUEL+probe Ql (Resp) Not detected Normal Not Detected [facility] Comment on above: Order Comment: This assay is an FDA-cleared, in vitro diagnostic nucleic acid amplification test for the qualitative detection and differentiation of SARS CoV-2/ Influenza A/B from nasopharyngeal specimens collected from individuals with signs and symptoms of respiratory tract infections, and has been validated for use at [facility]. Negative results do not preclude COVID-19/ Influenza A/B infections and should not be used as the sole basis for diagnosis, treatment, or other management decisions. Testing for SARS CoV-2 is recommended only for patients who meet current clinical and/or epidemiological criteria defined by federal, state, or local public health directives. Performed By: #### 9 5423-0 #### ALIVIA WALLACE ([id number]) [facility] ([facility]) [address] [place] [address] SARS-CoV-2 (COVID-19) RNA MIGUEL+probe Ql (Resp) Not detected Normal Not Detected [facility] Comment on above: Order Comment: This assay is an FDA-cleared, in vitro diagnostic nucleic acid amplification test for the qualitative detection and differentiation of SARS CoV-2/ Influenza A/B from nasopharyngeal specimens collected from individuals with signs and symptoms of respiratory tract infections, and has been validated for use at [facility]. Negative results do not preclude COVID-19/ Influenza A/B infections and should not be used as the sole basis for diagnosis, treatment, or other management decisions. Testing for SARS CoV-2 is recommended only for patients who meet current clinical and/or epidemiological criteria defined by federal, state, or local public health directives. Performed By: #### 9 5423-0 #### ALIVIA WALLACE ([id number]) [facility] ([facility]) [address] [place] [address] 11114 Iron and Iron binding capaci ty panelon [...] 17 % Low 25 - 45 % [facility] Iron [Mass/Vol] 39 ug/dL Normal 35-150 [facility] Comment on above: Performed By: #### 5 902-2 #### ALIVIA WALLACE ([id number]) [facility] ([facility]) [address] [place] [address] 84529 Iron binding capacity [Mass/Vol] 234 ug/dL Low 240-445 [facility] Comment on above: Performed By: #### 5 902-2 #### ALIVIA WALLACE ([id number]) [facility] ([facility]) [address] [place] [address] Iron binding capacity.unsaturated [Mass/Vol] 195 ug/dL Normal 110-370 [facility] Comment on above: Performed By: #### 5 902-2 #### ALIVIA WALLACE ([id number]) [facility] ([facility]) [address] [place] [address] 09038 Iron saturation [Mass fraction] 17 % Low 25-45 [facility] Comment on above: Performed By: #### 5 902-2 #### ALIVIA WALLACE ([id number]) [facility] ([facility]) [address] [place] [address] 00109 LDH Lactate to pyruvate reac tion [Catalytic activity/Vol]on 01-05-2025 Interpretation and review of laboratory results Normal [facility] Lactateon 01-05-2025 Lactate [Moles/Vol] 1.4 mmol/L 0.4 - 2. 0 mmol/L [facility] Lactate [Moles/Vol] 1.4 mmol/L Normal 0.4-2.0 [facility] Comment on above: Order Comment: Venip uncture immediately after or during the administration of Metamizole may lead to falsely low results. Testing should be performed immediately prior to Metamizole dosing. Performed By: #### 2 524-7 #### ALIVIA WALLACE ([id number]) [facility] ([facility]) [address] [place] [address] 80763 Lactate Dehydrogenaseon 12-18 LDH Lactate to pyruvate reaction [Catalytic activity/Vol] 207 U/L 84 - 246 U/L [facility] Lactate [Moles/Vol]on 2024 Interpretation and review of laboratory results Normal [facility] Venipuncture immediately after or during the administration of Metamizole may lead to falsely low results. Testing should be performed immediately prior to Metamizole dosing. [facility] Lactate dehydrogenaseon 12-18 LDH Lactate to pyruvate reaction [Catalytic activity/Vol] 207 U/L Normal 84-246 [facility] Comment on above: Performed By: #### 5 902-2 #### ALIVIA WALLACE ([id number]) [facility] ([facility]) [address] [place] [address] 62952 Lipaseon 01-05-2025 Lipase [Catalytic activity/Vol] 21 U/L 9 - 82 U/L [facility] Lipase [Catalytic activity/V ol]on 01-05-2025 Interpretation and review of laboratory results Normal [facility] Venipuncture immediately after or during the administration of Metamizole may lead to falsely low results. Testing should be performed immediately prior to Metamizole dosing. [facility] PT Coag (PPP) [Time]on 01-05 INR Coag (PPP) [Relative time] 1.3 {INR} High 0.9 - 1.1 [facility] Interpretation and review of laboratory results Abnormal [facility] INR Coag (PPP) [Relative time] 1.3 High 0.9-1.1 [facility] Comment on above: Performed By: #### 5 902-2 #### ALIVIA WALLACE ([id number]) [facility] ([facility]) [address] [place] [address] 35703 Potassiumon 01-05-2025 Potassium [Moles/Vol] 5.7 mmol/L High 3.5 - 5.3 mmol/L [facility] Potassium [Moles/Vol] 5.7 mmol/L High 3.5-5.3 [facility] Comment on above: Performed By: #### 2 823-3 #### ALIVIA WALLACE ([id number]) [facility] ([facility]) [address] [place] [address] 67768 Potassium [Moles/Vol]on 12-18 Interpretation and review of laboratory results Abnormal [facility] Protime-INRon 01-05-2025 PT Coag (PPP) [Time] 14.2 s High [facility] Reticulocytes panel (Bld)on 01-05-2025 Hemoglobin (Reticulocytes) [...] 3.7 % High 0.5 - 2.0 % [facility] Hemoglobin (Reticulocytes) [Entitic mass] 31 pg Normal 28-38 [facility] Comment on above: Performed By: #### 5 0262-5 #### ALIVIA WALLACE ([id number]) [facility] ([facility]) [address] [place] [address] 18626 IMMATURE RETIC FRACTION 20.1 % High <=16.0 [facility] Comment on above: Result Comment: Reti culocytes [...] By: #### 5 0262-5 #### ALIVIA WALLACE ([id number]) [facility] ([facility]) [address] [place] [address] 04496 Reticulocytes (Bld) [#/Vol] 0.123 x10*6/uL High 0.022-0.118 [facility] Comment on above: Performed By: #### 5 0262-5 #### ALIVIA WALLACE ([id number]) [facility] ([facility]) [address] [place] [address] 62488 Reticulocytes/100 RBC (Bld) 3.7 % High 0.5-2.0 [facility] Comment on above: Performed By: #### 5 0262-5 #### ALIVIA WALLACE ([id number]) [facility] ([facility]) [address] [place] [address] 82746 Triacylglycerol lipaseon Lipase [Catalytic activity/Vol] 21 U/L Normal 9-82 [facility] Comment on above: Order Comment: Venip uncture immediately after or during the administration of Metamizole may lead to falsely low results. Testing should be performed immediately prior to Metamizole dosing. Performed By: #### 3 040-3 #### ALIVIA WALLACE ([id number]) [facility] ([facility]) [address] [place] [address] 93740 Urinalysis complete W Reflex Culture panel (U)on [...] (Urine sed) [#/Area] 1-5 1-5, NONE /HPF [facility] Appearance (U) Clear Normal Clear [facility] Comment on above: Performed By: #### 5 902-2 #### ALIVIA WALLACE ([id number]) [facility] ([facility]) [address] [place] [address] 37624 Bilirubin (U) [Mass/Vol] Negative Normal NEGATIVE [facility] Comment on above: Performed By: #### 5 902-2 #### ALIVIA WALLACE ([id number]) [facility] ([facility]) [address] [place] [address] 42066 Color (U) Light-Yellow Normal Light-Yellow , Yellow, Dark-Yellow [facility] Comment on above: Performed By: #### 5 902-2 #### ALIVIA WALLACE ([id number]) [facility] ([facility]) [address] [place] [address] 70356 Glucose Auto test strip (U) [Mass/Vol] 100 (1+) Abnormal Normal [facility] Comment on above: Performed By: #### 5 902-2 #### ALIVIA WALLACE ([id number]) [facility] ([facility]) [address] [place] [address] 38111 Ketones (U) [Mass/Vol] Negative Normal NEGATIVE [facility] Comment on above: Performed By: #### 5 902-2 #### ALIVIA WALLACE ([id number]) [facility] ([facility]) [address] [place] [address] 09027 Leukocyte esterase Auto test strip Ql (U) Negative Normal NEGATIVE [facility] Comment on above: Performed By: #### 5 902-2 #### ALIVIA WALLACE ([id number]) [facility] ([facility]) [address] [place] [address] 71867 Nitrite Auto test strip Ql (U) Negative Normal NEGATIVE [facility] Comment on above: Performed By: #### 5 902-2 #### ALIVIA WALLACE ([id number]) [facility] ([facility]) [address] [place] [address] 20495 pH (U) 8.0 [pH] Normal 5.0, 5.5, 6.0, 6.5, 7.0, 7.5, 8.0 [facility] Comment on above: Performed By: #### 5 902-2 #### ALIVIA WALLACE ([id number]) [facility] ([facility]) [address] [place] [address] 39687 Protein (U) [Mass/Vol] 300 (3+) Abnormal NEGATIVE, 10 (TRACE), 20 (TRACE) [facility] Comment on above: Performed By: #### 5 902-2 #### ALIVIA WALLACE ([id number]) [facility] ([facility]) [address] [place] [address] 13020 RBC (U) [#/Vol] 0.06 (1+) Abnormal NEGATIVE [facility] Comment on above: Performed By: #### 5 902-2 #### ALIVIA WALLACE ([id number]) [facility] ([facility]) [address] [place] [address] 66925 RBC Auto (Urine sed) [#/Area] 11-20 Abnormal NONE, 1-2, 3-5 [facility] Comment on above: Performed By: #### 5 902-2 #### ALIVIA WALLACE ([id number]) [facility] ([facility]) [address] [place] [address] 77552 Specific gravity (U) [Rel density] 1.010 Normal 1.005-1.035 [facility] Comment on above: Performed By: #### 5 902-2 #### ALIVIA WALLACE ([id number]) [facility] ([facility]) [address] [place] [address] 72037 Urobilinogen (U) [Mass/Vol] Normal Normal Normal [facility] Comment on above: Performed By: #### 5 902-2 #### ALIVIA WALLACE ([id number]) [facility] ([facility]) [address] [place] [address] WBC Auto (Urine sed) [#/Area] 1-5 Normal 1-5, NONE [facility] Comment on above: Performed By: #### 5 902-2 #### ALIVIA WALLACE ([id number]) [facility] ([facility]) [address] [place] [address] 40365 Absolute lymphocyte countOrd ered By: Bing [place] on 10-14-2024 Lymphocytes Auto (Unsp spec) [#/Vol] 1.92 10*3/uL 0.83-4.51 [facility] Absolute neutrophil countOrd ered By: Bing Birmingham on 10-14-2024 Neutrophils (Bld) [#/Vol] 5.5 10*3/uL 2.0-7.7 [facility] Anion gap in Serum or Plasma Ordered By: Bing Birmingham on 10-14-2024 Anion gap [Moles/Vol] 16 mmol/L High 5-15 [facility] Automated lymphocyte count a s percentage of total leukocytesOrdered By: Bing Birmingham on 10-14-2024 Lymphocytes/100 WBC Auto (Unsp spec) 22.1 % 19-41 [facility] BUN/creatinine ratioOrdered By: Bing Birmingham on 10-14-2024 Urea nitrogen/Creatinine [Mass ratio] 3.7 mg/mg Low 10-20 [facility] Basophil percentageOrdered B y: Bing Birmingham on 10-14-2024 Basophils/100 WBC (Bld) 0.3 % 0-1 [facility] Bilirubin, totalOrdered By: Bing Birmingham on 10-14-2024 Bilirubin [Mass/Vol] 0.41 mg/dL 0.00-1.30 [facility] CBC W/Diff, Automatedon 09-17 Absolute Lymph 1.92 X10 3/uL Normal 0.83-4.51 [facility] Comment on above: Performed By: #### L 500.4050, L501.2300, L100.0100, L501.5200 #### [facility] [address] [place], [address] Absolute Neut 5.5 X10 3/uL Normal 2.0-7.7 [facility] Comment on above: Performed By: #### L 500.4050, L501.2300, L100.0100, L501.5200 #### [facility] [address] [place], [address] Basophils/100 WBC (Bld) 0.3 % Normal 0-1 [facility] Comment on above: Performed By: #### L 500.4050, L501.2300, L100.0100, L501.5200 #### [facility] [address] [place], [address] Eosinophils/100 WBC (Bld) 7.9 % High 0-5 [facility] Comment on above: Performed By: #### L 500.4050, L501.2300, L100.0100, L501.5200 #### [facility] [address] [place], [address] Erythrocyte distribution width (RBC) [Ratio] 16.0 % High 11.6-14.6 [facility] Comment on above: Performed By: #### L 500.4050, L501.2300, L100.0100, L501.5200 #### [facility] [address] [place], [address] Hematocrit (Bld) [Volume fraction] 27.5 % Low 40-54 [facility] Comment on above: Performed By: #### L 500.4050, L501.2300, L100.0100, L501.5200 #### [facility] [address] [place], [address] Hemoglobin (Bld) [Mass/Vol] 8.9 g/dL Low 13.0-16.5 [facility] Comment on above: Performed By: #### L 500.4050, L501.2300, L100.0100, L501.5200 #### [facility] [address] [place], [address] IG% 0.200 Normal 0.0-0.9 [facility] Comment on above: Result Comment: IG% - Immature Granulocytes (promyelocytes, myelocytes and metamyelocytes) > 1% indicates that a LEFT SHIFT is Present. Performed By: #### L 500.4050, L501.2300, L100.0100, L501.5200 #### [facility] [address] [place], [address] Lymphocytes/100 WBC (Bld) 22.1 % Normal 19-41 [facility] Comment on above: Performed By: #### L 500.4050, L501.2300, L100.0100, L501.5200 #### [facility] [address] [place], [address] MCH (RBC) [Entitic mass] 31.8 pg Normal 27.0-32.0 [facility] Comment on above: Performed By: #### L 500.4050, L501.2300, L100.0100, L501.5200 #### [facility] [address] [place], [address] MCHC (RBC) [Mass/Vol] 32.4 g/dL Normal 32-36 [facility] Comment on above: Performed By: #### L 500.4050, L501.2300, L100.0100, L501.5200 #### [facility] [address] [place], [address] MCV (RBC) [Entitic vol] 98.2 fL High 80-94 [facility] Comment on above: Performed By: #### L 500.4050, L501.2300, L100.0100, L501.5200 #### [facility] [address] [place], [address] Monocytes/100 WBC (Bld) 6.1 % Normal 0-10 [facility] Comment on above: Performed By: #### L 500.4050, L501.2300, L100.0100, L501.5200 #### [facility] [address] [place], [address] Neutrophils/100 WBC (Bld) 63.4 % Normal 47-70 [facility] Comment on above: Performed By: #### L 500.4050, L501.2300, L100.0100, L501.5200 #### [facility] [address] [place], [address] Nucleated RBC (Bld) [#/Vol] 0 10*3/uL Normal 0-5 [facility] Comment on above: Performed By: #### L 500.4050, L501.2300, L100.0100, L501.5200 #### [facility] [address] [place], [address] Platelet mean volume (Bld) [Entitic vol] 9.4 fL Normal 6.2-12.0 [facility] Comment on above: Performed By: #### L 500.4050, L501.2300, L100.0100, L501.5200 #### [facility] [address] [place], [address] Platelets (Bld) [#/Vol] 231 10*3/uL Normal 150-450 [facility] Comment on above: Performed By: #### L 500.4050, L501.2300, L100.0100, L501.5200 #### [facility] [address] [place], [address] RBC (Bld) [#/Vol] 2.80 10*6/uL Low 4.6-6.2 [facility] Comment on above: Performed By: #### L 500.4050, L501.2300, L100.0100, L501.5200 #### [facility] [address] [place], [address] RDW SD 56.3 fl High 35.1-43.9 [facility] Comment on above: Performed By: #### L 500.4050, L501.2300, L100.0100, L501.5200 #### [facility] [address] [place], [address] WBC (Bld) [#/Vol] 8.7 10*3/uL Normal 4.4-11.0 [facility] Comment on above: Performed By: #### L 500.4050, L501.2300, L100.0100, L501.5200 #### [facility] [address] [place], [address] Carbon dioxide, total [Moles /volume] in Central venous bloodOrdered By: Bing Birmingham on 10-14-2024 CO2 [Moles/Vol] 22.2 mmol/L 21.0-32.0 [facility] Chloride assayOrdered By: Jose M Birmingham on 10-14-2024 Chloride [Moles/Vol] 100 mmol/L 98-108 [facility] Comprehensive Metabolic Prof ilon 10-14-2024 Albumin [Mass/Vol] 3.7 g/dL Normal 3.5-5.0 [facility] Comment on above: Performed By: #### L 500.4050, L501.2300, L100.0100, L501.5200 #### [facility] [address] [place], [address] Albumin/Globulin [Mass ratio] 1.9 {ratio} Normal 0.9-2.4 [facility] Comment on above: Performed By: #### L 500.4050, L501.2300, L100.0100, L501.5200 #### [facility] [address] [place], [address] ALK PHOS 70 U/L Normal 40-129 [facility] Comment on above: Performed By: #### L 500.4050, L501.2300, L100.0100, L501.5200 #### [facility] [address] [place], [address] ALT [Catalytic activity/Vol] 10 U/L Normal <=46 [facility] Comment on above: Performed By: #### L 500.4050, L501.2300, L100.0100, L501.5200 #### [facility] [address] [place], [address] AST [Catalytic activity/Vol] 8 U/L Normal <=37 [facility] Comment on above: Performed By: #### L 500.4050, L501.2300, L100.0100, L501.5200 #### [facility] [address] [place], [address] Bilirubin [Mass/Vol] 0.41 mg/dL Normal 0.00-1.30 [facility] Comment on above: Performed By: #### L 500.4050, L501.2300, L100.0100, L501.5200 #### [facility] [address] [place], [address] BUN/CRE 3.7 RATIO Low 10-20 [facility] Comment on above: Performed By: #### L 500.4050, L501.2300, L100.0100, L501.5200 #### [facility] [address] [place], [address] Calcium [Mass/Vol] 9.1 mg/dL Normal 7.6-11.0 [facility] Comment on above: Performed By: #### L 500.4050, L501.2300, L100.0100, L501.5200 #### [facility] [address] [place], [address] Chloride [Moles/Vol] 100 mmol/L Normal 98-108 [facility] Comment on above: Performed By: #### L 500.4050, L501.2300, L100.0100, L501.5200 #### [facility] [address] [place], [address] CO2 [Moles/Vol] 22.2 mmol/L Normal 21.0-32.0 [facility] Comment on above: Performed By: #### L 500.4050, L501.2300, L100.0100, L501.5200 #### [facility] [address] [place], [address] Creatinine [Mass/Vol] 10.10 mg/dL Invalid Interpretation Code 0.70-1.20 [facility] Comment on above: Result Comment: Crit ical Result(s) Called at:0632 by: LAKIA PISANO TO JOHNNA FERNANDEZ??Results read back by same. Performed By: #### L 500.4050, L501.2300, L100.0100, L501.5200 #### [facility] [address] [place], [address] ECRCL 11.54 ml/min Low 50-250 [facility] Comment on above: Performed By: #### L 500.4050, L501.2300, L100.0100, L501.5200 #### [facility] [address] [place], [address] GAP 16 High 5-15 [facility] Comment on above: Performed By: #### L 500.4050, L501.2300, L100.0100, L501.5200 #### [facility] [address] [place], [address] GFR/1.73 sq M.predicted among non-blacks MDRD (S/P/Bld) [Vol rate/Area] 7 mL/min/{1.73_m2} Low >60 [facility] Comment on above: Result Comment: mL/m in/1.73m2 CKD-EPI Creatinine Equation (2020) Performed By: #### L 500.4050, L501.2300, L100.0100, L501.5200 #### [facility] [address] [place], [address] Globulin (S) [Mass/Vol] 2.0 g/dL Low 2.2-4.2 [facility] Comment on above: Performed By: #### L 500.4050, L501.2300, L100.0100, L501.5200 #### [facility] [address] [place], [address] Glucose [Mass/Vol] 93 mg/dL Normal 70-99 [facility] Comment on above: Performed By: #### L 500.4050, L501.2300, L100.0100, L501.5200 #### [facility] [address] [place], [address] Potassium [Moles/Vol] 5.8 mmol/L High 3.3-5.1 [facility] Comment on above: Performed By: #### L 500.4050, L501.2300, L100.0100, L501.5200 #### [facility] [address] [place], [address] Sodium [Moles/Vol] 138 mmol/L Normal 133-145 [facility] Comment on above: Performed By: #### L 500.4050, L501.2300, L100.0100, L501.5200 #### [facility] [address] [place], [address] T PROT 5.7 g/dL Low 5.9-8.4 [facility] Comment on above: Performed By: #### L 500.4050, L501.2300, L100.0100, L501.5200 #### [facility] [address] [place], [address] Urea nitrogen [Mass/Vol] 38 mg/dL High 4-19 [facility] Comment on above: Performed By: #### L 500.4050, L501.2300, L100.0100, L501.5200 #### [facility] [address] [place], [address] Consultation - Nephrologyon 10-14-2024 Consultation - Nephrology [facility] Medical Records Department [address] [place] [address] Consultation - Nephrology 10/14/24 1019 MR#: [id number] Acct: [id number] Name: LAWSON DOYLE Rep #: [id number] : 2000 From: Segundo WHITAKER PCP: Care Physician,No Primary Status:DIS KEYANNA Location: [place] [address] Assessment Plan Assessment/Plan (1) ESRD (end stage renal disease): (2) Hyperkalemia: (3) Hypoxia: PLAN: Plan This is a 24-year-old male with past medical history significant for ESRD on hemodialysis Sunday schedule, admitted to the hospital for shortness of breath, hypoxia. Patient did undergo hemodialysis yesterday and tolerated around 4.7 L fluid removal. There is no acute indication for [employer] today. Potassium mildly elevated, patient is on [...] on room air. He denies any complaints. [facility] Medical History (Updated 10/14/24 @ [...] 1 - 2 puff inhalation Q4H PRN MS N 10/03/24 Unknown Rx aerosol inhaler (Ventolin [...] % (Auto) 63.4, Lymph % (Auto) 22.1, Spencer % (Auto) 6.1, Eos % (Auto) 7.9 [...] Potassium 5.6 (more content not included)... Normal [facility] Echocardiogram study reportO rdered By: Juan Stacy on 10-14-2024 Study report [facility] [address] [place] [address] Echo Complete 10/14/24 0846 MR#: [id number] Acct: [id number] Name: LAWSON DOYLE Rep #:[id number] : 2000 From: Juan Abreu Attending Dr: Dr. Bing Birmingham DO S tatus: ADM KEYANNA Ordering Dr: Bing Birmingham DO Date: Location: [facility] Sex: M C Admitted: 10/13/24 Reason For [...] Dictated: 10/14/24 0846 Date Transcribed: 10/14/24 112 Host And Hostess: Signed [facility] Work Phone: Electrocardiogram reportOrde red By: Juan Stacy on 10-14-2024 EKG study [facility] Cardiovascular Services [address] [place] [address] 12 Lead EKG 10/13/24 0907 MR#: [id number] Acct: [id number] Name: LAWSON DOYLE Rep #:[id number] : 2000 From: Juan Stacy MD Attending Dr: Dr. Bing Birmingham DO S tatus: ADM KEYANNA Ordering Dr: Arley Kirby DO Date: 0 10/13/24 Location: [facility] Sex: M C Admitted: 10/13/24 Test Reason : SOB Blood Pressure : */* mmHG Vent. Rate : 99 BPM Atrial Rate : 99 BPM P-R Int : 142 ms QRS Dur : 82 ms QT Int : 360 ms P-R-T Axes : 55 67 96 degrees QTcB Int : 462 ms Normal sinus rhythm Normal ECG Confirmed by ROD PEREIRA, JUAN ([id number]), editor managing director TERRA HOOKS ([id number]) on 51:00:49 PM Referred By: Confirmed By: JUAN STACY MD 10/14/24 1300 Date _ Juan Stacy MD CC: Dr. Arley Kirby, DO; Dr. Bing Birmingham, DO; No Primary Care Physician ~ Signed [facility] Work Phone: Eosinophil percentageOrdered By: Bing Birmingham on 10-14-2024 Eosinophils/100 WBC (Bld) 7.9 % High 0-5 [facility] Erythrocyte distribution wid th ratioOrdered By: Bing Birmingham on 10-14-2024 Erythrocyte distribution width (RBC) [Ratio] 16.0 % High 11.6-14.6 [facility] Erythrocyte distribution wid th standard deviationOrdered By: Bing Birmingham on 10-14-2024 Erythrocyte distribution width (RBC) [Ratio] 56.3 fl High 35.1-43.9 [facility] Glomerular filtration rate ( GFR) estimation/1.73 sq m using serum, plasma, or whole bOrdered By: Bing Birmingham on 10-14-2024 GFR/1.73 sq M.predicted among non-blacks MDRD (S/P/Bld) [Vol rate/Area] 7 mL/min/{1.73_m2} Low >60 [facility] Comment on above: mL/min/1.73m2 CKD-EP I Creatinine Equation (2020) Hematocrit Auto (Bld) [Volum e fraction]Ordered By: Bing Birmingham on 10-14-2024 Hematocrit (Bld) [Volume fraction] 27.5 % Low 40-54 [facility] Hemoglobin measurementOrdere d By: Bing Birmingham on 10-14-2024 Hemoglobin (Bld) [Mass/Vol] 8.9 g/dL Low 13.0-16.5 [facility] Immature granulocytes/100 WB C Auto (Bld)Ordered By: Bing Birmingham on 10-14-2024 Immature granulocytes/100 WBC (Bld) 0.200 % 0.0-0.9 [facility] Comment on above: IG% - Immature Granu locytes (promyelocytes, myelocytes and metamyelocytes) > 1% indicates that a LEFT SHIFT is Present. Laboratory - Chemistry and C hemistry - challengeOrdered By: Bing Birmingham on 10-14-2024 AST [Catalytic activity/Vol] 8 U/L <38 [facility] MCV (mean corpuscular volume ) determinationOrdered By: Bing Birmingham on 10-14-2024 MCV (RBC) [Entitic vol] 98.2 fL High 80-94 [facility] Magnesiumon 10-14-2024 Magnesium [Mass/Vol] 2.5 mg/dL High 1.5-2.2 [facility] Comment on above: Performed By: #### L 500.4050, L501.2300, L100.0100, L501.5200 #### [facility] [address] [place], [place] [address]all [facility] [place], [address] Magnesium measurement (mass/ volume)Ordered By: Bing Birmingham on 10-14-2024 Magnesium (Unsp spec) [Mass/Vol] 2.5 mg/dL High 1.5-2.2 [facility] Mean corpuscular hemoglobin (MCH) determinationOrdered By: Bing Birmingham on 10-14-2024 MCH (RBC) [Entitic mass] 31.8 pg 27.0-32.0 [facility] Mean corpuscular hemoglobin concentration (MCHC) determinationOrdered By: Bing Birmingham on 10-14-2024 MCHC (RBC) [Mass/Vol] 32.4 g/dL 32-36 [facility] Mean platelet volume determi nationOrdered By: Bing Birmingham on 10-14-2024 Platelet mean volume (Bld) [Entitic vol] 9.4 fL 6.2-12.0 [facility] Monocyte percentageOrdered B y: Bing Birmingham on 10-14-2024 Monocytes/100 WBC (Bld) 6.1 % 0-10 [facility] Neutrophil percentageOrdered By: Bing Birmingham on 10-14-2024 Neutrophils/100 WBC (Bld) 63.4 % 47-70 [facility] Nucleated red blood cell per centageOrdered By: Bing Birmingham on 10-14-2024 Nucleated RBC/100 WBC (Bld) [Ratio] 0 % 0-5 [facility] Phosphoruson 10-14-2024 Phosphate [Mass/Vol] 6.6 mg/dL High 2.7-4.5 [facility] Comment on above: Performed By: #### L 500.4050, L501.2300, L100.0100, L501.5200 #### [facility] [address] [place], [place], [address] Platelet countOrdered By: Jose M Birmingham on 10-14-2024 Platelets (Bld) [#/Vol] 231 10*3/uL 150-450 [facility] Potassiumon 10-14-2024 Potassium [Moles/Vol] 5.6 mmol/L High 3.3-5.1 [facility] Comment on above: Order Comment: Comme nts: K+ elevated after HD treatment Performed By: #### L 501.5600 #### [facility] [address] [place], [place], [address] Potassium measurement (mass/ volume)Ordered By: Segundo Yanes on 10-14-2024 Potassium (Unsp spec) [Mass/Vol] 5.6 mmol/L High 3.3-5.1 [facility] RBC Auto (Bld) [#/Vol]Ordere d By: Bing Birmingham on 10-14-2024 RBC (Bld) [#/Vol] 2.80 10*6/uL Low 4.6-6.2 [facility] Serum creatinine measurement (mass/volume)Ordered By: Bing Birmingham on 10-14-2024 Creatinine [Mass/Vol] 10.10 mg/dL High 0.70-1.20 [facility] Comment on above: Critical Result(s) C alled at:0632 by: LAKIA PISANO TO JOHNNA FERNANDEZ Results read back by same. Serum globulin measurementOr dered By: Bing Birmingham on 10-14-2024 Globulin (S) [Mass/Vol] 2.0 g/dL Low 2.2-4.2 [facility] Serum glucose measurement (m ass/volume)Ordered By: Bing Birmingham on 10-14-2024 Glucose [Mass/Vol] 93 mg/dL 70-99 [facility] Serum or plasma alanine bullock otransferase (ALT) measurementOrdered By: Bing Birmingham on 10-14-2024 ALT [Catalytic activity/Vol] 10 U/L <47 [facility] Serum or plasma albumin sharyn urement (mass/volume)Ordered By: Bing Birmingham on 10-14-2024 Albumin [Mass/Vol] 3.7 g/dL 3.5-5.0 [facility] Serum or plasma albumin/glob ulin mass ratioOrdered By: Bing Birmingham on 10-14-2024 Albumin/Globulin [Mass ratio] 1.9 {ratio} 0.9-2.4 [facility] Serum or plasma alkaline sharda sphatase measurementOrdered By: Bing Birmingham on 10-14-2024 ALP [Catalytic activity/Vol] 70 U/L 40-129 [facility] Serum or plasma calcium sharyn urement (mass/volume)Ordered By: Bing Birmingham on 10-14-2024 Calcium [Mass/Vol] 9.1 mg/dL 7.6-11.0 [facility] Serum or plasma urea nitroge n measurement (mass/volume)Ordered By: Bing Birmingham on 10-14-2024 Urea nitrogen [Mass/Vol] 38 mg/dL High 4-19 [facility] Sodium levelOrdered By: Nerissa Birmingham on 10-14-2024 Sodium [Moles/Vol] 138 mmol/L 133-145 [facility] Total proteinOrdered By: Jen Birmingham on 10-14-2024 Protein [Mass/Vol] 5.7 g/dL Low 5.9-8.4 [facility] White blood cell (WBC) count Ordered By: Bing Birmingham on 10-14-2024 WBC (Bld) [#/Vol] 8.7 10*3/uL 4.4-11.0 [facility] 12 Lead EKGon 10-13-2024 12 Lead EKG [facility] Cardiovascular Services [address] [place] [address] 12 Lead EKG 10/13/24 0907 MR#: [id number] Acct: [id number] Name: LAWSON DOYLE Rep #: [id number] : 2000 24 From: Juan Stacy MD Attending Dr: Dr. Bing Birmingham, Status: ADM I NO Ordering Dr: Arley Kirby DO Date: 10/13/24 Location: [facility] Sex: M C Admitted: 10/13/24 Test Reason : SOB Blood Pressure : */* mmHG Vent. Rate : 99 BPM Atrial Rate : 99 BPM P-R Int : 142 ms QRS Dur : 82 ms QT Int : 360 ms P-R-T Axes : 55 67 96 degrees QTcB Int : 462 ms Normal sinus rhythm Normal ECG Confirmed by ROD PEREIRA, JUAN ([id number]), editor managing director TERRA HOOKS ([id number]) on 10/14/2024 1:00:49 PM Referred By: Confirmed By: JUAN STACY MD 10/14/24 1300 Date Juan Stacy MD CC: Dr. Arley Kirby, ; Dr. Bing Birmingham, ; No Primary Care Physician Signed Normal [facility] Absolute lymphocyte countOrd ered By: Arley Kirby on 10-13-2024 Lymphocytes Auto (Unsp spec) [#/Vol] 1.75 10*3/uL 0.83-4.51 [facility] Absolute neutrophil countOrd ered By: Arley Kirby on 10-13-2024 Neutrophils (Bld) [#/Vol] 5.7 10*3/uL 2.0-7.7 [facility] Anion gap in Serum or Plasma Ordered By: Arley Kirby on 10-13-2024 Anion gap [Moles/Vol] 19 mmol/L High 5-15 [facility] Automated lymphocyte count a s percentage of total leukocytesOrdered By: Arley Kriby on 10-13-2024 Lymphocytes/100 WBC Auto (Unsp spec) 20.8 % 19-41 [facility] BUN/creatinine ratioOrdered By: Arley Kirby on 10-13-2024 Urea nitrogen/Creatinine [Mass ratio] 3.0 mg/mg Low 10-20 [facility] Basic Metabolic Profile (BMP )on 10-13-2024 BUN/CRE 3.0 RATIO Low 10-20 [facility] Comment on above: Performed By: #### L 503.7505, L100.0100, L500.2500 ####[facility] [address] [place], [address] Calcium [Mass/Vol] 9.9 mg/dL Normal 7.6-11.0 [facility] Comment on above: Performed By: #### L 503.7505, L100.0100, L500.2500 ####[facility] [address] [place], [address] Chloride [Moles/Vol] 96 mmol/L Low 98-108 [facility] Comment on above: Performed By: #### L 503.7505, L100.0100, L500.2500 ####[facility] [address] [place], [address] CO2 [Moles/Vol] 24.4 mmol/L Normal 21.0-32.0 [facility] Comment on above: Performed By: #### L 503.7505, L100.0100, L500.2500 ####[facility] [address] [place], [address] Creatinine [Mass/Vol] 12.50 mg/dL Invalid Interpretation Code 0.70-1.20 [facility] Comment on above: Result Comment: Crit ical Result(s) Called at 0951: by: SEGUNDO [place] TO ??Results read back by same. Performed By: #### L 503.7505, L100.0100, L500.2500 ####[facility] [address] [place], [address] ECRCL 9.33 ml/min Invalid Interpretation Code 50-250 [facility] Comment on above: Performed By: #### L 503.7505, L100.0100, L500.2500 ####[facility] [address] [place], [address] GAP 19 High 5-15 [facility] Comment on above: Performed By: #### L 503.7505, L100.0100, L500.2500 ####[facility] [address] [place], [address] GFR/1.73 sq M.predicted among non-blacks MDRD (S/P/Bld) [Vol rate/Area] 5 mL/min/{1.73_m2} Low >60 [facility] Comment on above: Result Comment: mL/m in/1.73m2 CKD-EPI Creatinine Equation (2020) Performed By: #### L 503.7505, L100.0100, L500.2500 ####[facility] [address] [place], [address] Glucose [Mass/Vol] 98 mg/dL Normal 70-99 [facility] Comment on above: Performed By: #### L 503.7505, L100.0100, L500.2500 ####[facility] [address] [place], [address] Potassium [Moles/Vol] 5.0 mmol/L Normal 3.3-5.1 [facility] Comment on above: Performed By: #### L 503.7505, L100.0100, L500.2500 ####[facility] [address] [place], [address] Sodium [Moles/Vol] 140 mmol/L Normal 133-145 [facility] Comment on above: Performed By: #### L 503.7505, L100.0100, L500.2500 ####[facility] [address] [place], [address] Urea nitrogen [Mass/Vol] 38 mg/dL High 4-19 [facility] Comment on above: Performed By: #### L 503.7505, L100.0100, L500.2500 ####[facility] [address] [place], [address] Basophil percentageOrdered B y: Arley Kirby on 10-13-2024 Basophils/100 WBC (Bld) 0.2 % 0-1 [facility] CBC W/Diff, Automatedon 09-17 Absolute Lymph 1.75 X10 3/uL Normal 0.83-4.51 [facility] Comment on above: Performed By: #### L 503.7505, L100.0100, L500.2500 ####[facility] [address] [place], [address] Absolute Neut 5.7 X10 3/uL Normal 2.0-7.7 [facility] Comment on above: Performed By: #### L 503.7505, L100.0100, L500.2500 ####[facility] [address] [place], [address] Basophils/100 WBC (Bld) 0.2 % Normal 0-1 [facility] Comment on above: Performed By: #### L 503.7505, L100.0100, L500.2500 ####[facility] [address] [place], [address] Eosinophils/100 WBC (Bld) 4.9 % Normal 0-5 [facility] Comment on above: Performed By: #### L 503.7505, L100.0100, L500.2500 ####[facility] [address] [place], [address] Erythrocyte distribution width (RBC) [Ratio] 16.3 % High 11.6-14.6 [facility] Comment on above: Performed By: #### L 503.7505, L100.0100, L500.2500 ####[facility] [address] [place], [address] Hematocrit (Bld) [Volume fraction] 29.2 % Low 40-54 [facility] Comment on above: Performed By: #### L 503.7505, L100.0100, L500.2500 ####[facility] [address] [place], [address] Hemoglobin (Bld) [Mass/Vol] 9.4 g/dL Low 13.0-16.5 [facility] Comment on above: Performed By: #### L 503.7505, L100.0100, L500.2500 ####[facility] [address] [place], [address] IG% 0.400 Normal 0.0-0.9 [facility] Comment on above: Result Comment: IG% - Immature Granulocytes (promyelocytes, myelocytes and metamyelocytes) > 1% indicates that a LEFT SHIFT is Present. Performed By: #### L 503.7505, L100.0100, L500.2500 ####[facility] [address] [place], [address] Lymphocytes/100 WBC (Bld) 20.8 % Normal 19-41 [facility] Comment on above: Performed By: #### L 503.7505, L100.0100, L500.2500 ####[facility] [address] [place], [address] MCH (RBC) [Entitic mass] 32.0 pg Normal 27.0-32.0 [facility] Comment on above: Performed By: #### L 503.7505, L100.0100, L500.2500 ####[facility] [address] [place], [address] MCHC (RBC) [Mass/Vol] 32.2 g/dL Normal 32-36 [facility] Comment on above: Performed By: #### L 503.7505, L100.0100, L500.2500 ####[facility] [address] [place], [address] MCV (RBC) [Entitic vol] 99.3 fL High 80-94 [facility] Comment on above: Performed By: #### L 503.7505, L100.0100, L500.2500 ####[facility] [address] [place], [address] Monocytes/100 WBC (Bld) 5.8 % Normal 0-10 [facility] Comment on above: Performed By: #### L 503.7505, L100.0100, L500.2500 ####[facility] [address] [place], [address] Neutrophils/100 WBC (Bld) 67.9 % Normal 47-70 [facility] Comment on above: Performed By: #### L 503.7505, L100.0100, L500.2500 ####[facility] [address] [place], [address] Nucleated RBC (Bld) [#/Vol] 0 10*3/uL Normal 0-5 [facility] Comment on above: Performed By: #### L 503.7505, L100.0100, L500.2500 ####[facility] [address] [place], [address] Platelet mean volume (Bld) [Entitic vol] 9.3 fL Normal 6.2-12.0 [facility] Comment on above: Performed By: #### L 503.7505, L100.0100, L500.2500 ####[facility] [facility] [address] [place], [address] Platelets (Bld) [#/Vol] 252 10*3/uL Normal 150-450 [facility] Comment on above: Performed By: #### L 503.7505, L100.0100, L500.2500 ####[facility] [address] [place], [address] RBC (Bld) [#/Vol] 2.94 10*6/uL Low 4.6-6.2 [facility] Comment on above: Performed By: #### L 503.7505, L100.0100, L500.2500 ####[facility] [address] [place], [address] RDW SD 58.7 fl High 35.1-43.9 [facility] Comment on above: Performed By: #### L 503.7505, L100.0100, L500.2500 ####[facility] [address] [place], [address] WBC (Bld) [#/Vol] 8.4 10*3/uL Normal 4.4-11.0 [facility] Comment on above: Performed By: #### L 503.7505, L100.0100, L500.2500 ####[facility] [address] [place], [address] Carbon dioxide, total [Moles /volume] in Central venous bloodOrdered By: Arley Kirby on 10-13-2024 CO2 [Moles/Vol] 24.4 mmol/L 21.0-32.0 [facility] Chest PA and Lateralon 10-13 Chest PA and Lateral [facility] Imaging Services [address] [place] [address] Chest PA and Lateral MR#: [id number] Acct: [id number] Name: LAWSON DOYLE Rep #: [id number] : 2000 M 24 From: Abelardo villanueva MD PCP: Care Physician,No Primary Status: REG ER Study: Chest PA and Lateral Date of Exam: 10/13/24 Exam# [id number] Ordering Dr: Arley Kirby DO PROCEDURE: CHEST [...] of vascular congestion and CHF. Reading Location: [id number] CC: Dr. Arley Kirby, DO; No Primary Care Physician Host And Hostess: Signed Normal [facility] Chloride assayOrdered By: Yossi Kirby on 10-13-2024 Chloride [Moles/Vol] 96 mmol/L Low 98-108 [facility] Echo Completeon 10-13-2024 Echo Complete [facility] Cardiovascular Services [address] [place] [address] Echo Complete 10/14/24 0846 MR#: [id number] Acct: [id number] Name: LAWSON DOYLE Rep #: [id number] : 2000 24 From: Juan Stacy MD [...] Dictated: 10/14/24 0846 Date Transcribed: 10/14/24 1120 Host And Hostess: Signed Normal [facility] Emergency Department Summary on 10-13-2024 Emergency Department Summary [facility] Medical Records Department [address] [place] [address] Emergency Department Summary 10/13/24 MR#: [id number] Acct: [id number] Name: LAWSON DOYLE Rep #: [id number] : 2000 24 From: Arley Kirby DO PCP: Care Physician,No Primary Status:ADM KEYANNA Location: [address] History of Present Illness Chief Complaint: [...] Recent immobilization, Recent surgery or Recent travel [facility] Medical History (Updated 10/13/24 @ 12:[address] Arley Kirby DO) Hypertension Dialysis patient Arteriovenous fistula of right upper extremity [facility]ports [facility] Home Medications ???Medication ???Instructions ???Recorded ???Last Taken [...] 1 - 2 puff inhalation Q4H PRN MS N 10/03/24 Unknown Rx aerosol inhaler (Ventolin [...] no JVD (more content not included)... Normal [facility] Eosinophil percentageOrdered By: Arley Kirby on 10-13-2024 Eosinophils/100 WBC (Bld) 4.9 % 0-5 [facility] Erythrocyte distribution wid th ratioOrdered By: Arley Kirby on 10-13-2024 Erythrocyte distribution width (RBC) [Ratio] 16.3 % High 11.6-14.6 [facility] Erythrocyte distribution wid th standard deviationOrdered By: Arley Kirby on 10-13-2024 Erythrocyte distribution width (RBC) [Ratio] 58.7 fl High 35.1-43.9 [facility] Glomerular filtration rate ( GFR) estimation/1.73 sq m using serum, plasma, or whole bOrdered By: Arley Kirby on 10-13-2024 GFR/1.73 sq M.predicted among non-blacks MDRD (S/P/Bld) [Vol rate/Area] 5 mL/min/{1.73_m2} Low >60 [facility] Comment on above: mL/min/1.73m2 CKD-EP I Creatinine Equation (2020) H AND P Exam - [facility] 10-13-2024 H&P Exam - Hospitalist [facility] Medical Records Department [address] [place] [address] H P Exam - Hospitalist 10/13/24 1220 MR#: [id number] Acct: [id number] Name: LAWSON DOYLE Rep #: [id number] : 2000 24 From: Bing Birmingham DO PCP: Care Physician,No Primary Status:ADM KEYANNA Location: [place] [address] HPI - General General Date of Admission: 10/13/24 Date of Service: 10/13/24 Chief Complaint: Shortness of breath HPI Narrative LAWSON DOYLE, is a 24 M who presented to the emergency department at [facility] on 10/05/2024 complaining of shortness of [...] the plan is for urgent HD today. [facility] Medical History (Updated 10/13/24 @ [...] 1 - 2 puff inhalation Q4H PRN MS N 10/03/24 Unknown Rx aerosol inhaler (Ventolin [...] urinary inco (more content not included)... Normal [facility] Hematocrit Auto (Bld) [Volum e fraction]Ordered By: Arley Kirby on 10-13-2024 Hematocrit (Bld) [Volume fraction] 29.2 % Low 40-54 [facility] Hemoglobin measurementOrdere d By: Arley Kirby on 10-13-2024 Hemoglobin (Bld) [Mass/Vol] 9.4 g/dL Low 13.0-16.5 [facility] Immature granulocytes/100 WB C Auto (Bld)Ordered By: Arley Kirby on 10-13-2024 Immature granulocytes/100 WBC (Bld) 0.400 % 0.0-0.9 [facility] Comment on above: IG% - Immature Granu locytes (promyelocytes, myelocytes and metamyelocytes) > 1% indicates that a LEFT SHIFT is Present. MCV (mean corpuscular volume ) determinationOrdered By: Arley Kirby on 10-13-2024 MCV (RBC) [Entitic vol] 99.3 fL High 80-94 [facility] Mean corpuscular hemoglobin (MCH) determinationOrdered By: Arley Kirby 10-13-2024 MCH (RBC) [Entitic mass] 32.0 pg 27.0-32.0 [facility] Mean corpuscular hemoglobin concentration (MCHC) determinationOrdered By: Arley Kirby 10-13-2024 MCHC (RBC) [Mass/Vol] 32.2 g/dL 32-36 [facility] Mean platelet volume determi nationOrdered By: Arley Kirby 10-13-2024 Platelet mean volume (Bld) [Entitic vol] 9.3 fL 6.2-12.0 [facility] Monocyte percentageOrdered B y: Arley Kirby on 10-13-2024 Monocytes/100 WBC (Bld) 5.8 % 0-10 [facility] Natriuretic peptide.B prohor angel N-Terminal [Mass/volume] in Serum or PlasmaOrdered By: Arley Kirby on 10-13-2024 Natriuretic peptide.B prohormone N-Terminal [Mass/Vol] 06148 pg/mL High <450 [facility] Comment on above: Heart Failure Unlike ly: < 300 pg/mLHeart Failure Likely< 50 Years: > 450 pg/mL50-75 Years: > 900 pg/mL>75 Years: > 1800 pg/mL Neutrophil percentageOrdered By: Arley Kirby on 10-13-2024 Neutrophils/100 WBC (Bld) 67.9 % 47-70 [facility] Nucleated red blood cell per centageOrdered By: Arley Kirby on 10-13-2024 Nucleated RBC/100 WBC (Bld) [Ratio] 0 % 0-5 [facility] Platelet countOrdered By: Yossi Kirby on 10-13-2024 Platelets (Bld) [#/Vol] 252 10*3/uL 150-450 [facility] Potassium measurement (mass/ volume)Ordered By: Arley Kirby on 10-13-2024 Potassium (Unsp spec) [Mass/Vol] 5.0 mmol/L 3.3-5.1 [facility] Pro- Brain NATRIURETIC PEPTI Prieto 10-13-2024 Natriuretic peptide B (Bld) [Mass/Vol] 75648 pg/mL High <=450 [facility] Comment on above: Result Comment: Hear t Failure Unlikely: < 300 pg/mL Heart Failure Likely < 50 Years: > 450 pg/mL 50-75 Years: > 900 pg/mL >75 Years: > 1800 pg/mL Performed By: #### L 503.7505, L100.0100, L500.2500 ####[facility] [address] [facility] [place], [address] RBC Auto (Bld) [#/Vol]Ordere d By: Arley Kirby on 10-13-2024 RBC (Bld) [#/Vol] 2.94 10*6/uL Low 4.6-6.2 [facility] Serum creatinine measurement (mass/volume)Ordered By: Arley Kirby on 10-13-2024 Creatinine [Mass/Vol] 12.50 mg/dL High 0.70-1.20 [facility] Comment on above: Critical Result(s) C alled at 0951: by: SEGUNDO DUBOIS. Results read back by same. Serum glucose measurement (m ass/volume)Ordered By: Arley Kirby on 10-13-2024 Glucose [Mass/Vol] 98 mg/dL 70-99 [facility] Serum or plasma calcium sharyn urement (mass/volume)Ordered By: Arley Kirby on 10-13-2024 Calcium [Mass/Vol] 9.9 mg/dL 7.6-11.0 [facility] Serum or plasma urea nitroge n measurement (mass/volume)Ordered By: Arley Kirby on 10-13-2024 Urea nitrogen [Mass/Vol] 38 mg/dL High 4-19 [facility] Sodium levelOrdered By: Arleyyamil Kirby on 10-13-2024 Sodium [Moles/Vol] 140 mmol/L 133-145 [facility] White blood cell (WBC) count Ordered By: Arley Kirby on 10-13-2024 WBC (Bld) [#/Vol] 8.4 10*3/uL 4.4-11.0 [facility] Abdomen/Pelvis without Conto n 10-03-2024 Abdomen/Pelvis without Cont [facility] Imaging Services [address] [place] [address] [id number] Abdomen/Pelvis without Cont MR#: [id number] Acct: [id number] Name: LAWSON DOYLE Rep #: [id number] : 2000 M 24 From: Buck Massey MD PCP: Care Physician,No Primary Status: REG ER Study: Abdomen/Pelvis without Cont Date of Exam: 09/16 11/10 Exam# [id number] Ordering Dr: Josette Herron DO PROCEDURE: ABDOMEN/PELVIS [...] Cont IMPRESSION: No acute abnormality. Reading [facility] CC: Dr. Josette Herron, DO; No Primary Care Physician Host And Hostess: Signed Normal [facility] Absolute lymphocyte countOrd ered By: Josette Herron on 10-03-2024 Lymphocytes Auto (Unsp spec) [#/Vol] 1.64 10*3/uL 0.83-4.51 [facility] Absolute neutrophil countOrd ered By: Josette Herron on 10-03-2024 Neutrophils (Bld) [#/Vol] 5.4 10*3/uL 2.0-7.7 [facility] Activated partial thrombopla stin time (aPTT) in platelet poor plasma by coagulation aOrdered By: Josette Herron on 10-03-2024 aPTT Coag (PPP) [Time] 30.9 s 24.1-36.2 [facility] Anion gap in Serum or Plasma Ordered By: Josette Herron on 10-03-2024 Anion gap [Moles/Vol] 11 mmol/L 5-15 [facility] Automated lymphocyte count a s percentage of total leukocytesOrdered By: Josette Herron on 10-03-2024 Lymphocytes/100 WBC Auto (Unsp spec) 20.7 % 19-41 [facility] BUN/creatinine ratioOrdered By: Josette Herron on 10-03-2024 Urea nitrogen/Creatinine [Mass ratio] 2.0 mg/mg Low 10-20 [facility] Basophil percentageOrdered B y: Josette Herron on 10-03-2024 Basophils/100 WBC (Bld) 0.3 % 0-1 [facility] Bilirubin Test strip Ql (U)O rdered By: Josette Herron on 10-03-2024 Bilirubin Ql (U) Negative Negative [facility] CBC W/Diff, Automatedon 09-16 Absolute Lymph 1.64 X10 3/uL Normal 0.83-4.51 [facility] Comment on above: Performed By: #### L 100.0100, L500.2500 #### [facility] [address] [place], [address] Absolute Neut 5.4 X10 3/uL Normal 2.0-7.7 [facility] Comment on above: Performed By: #### L 100.0100, L500.2500 #### [facility] [address] [place], [address] Basophils/100 WBC (Bld) 0.3 % Normal 0-1 [facility] Comment on above: Performed By: #### L 100.0100, L500.2500 #### [facility] [address] [place], [address] Eosinophils/100 WBC (Bld) 5.5 % High 0-5 [facility] Comment on above: Performed By: #### L 100.0100, L500.2500 #### [facility] [address] [place], [address] Erythrocyte distribution width (RBC) [Ratio] 14.9 % High 11.6-14.6 [facility] Comment on above: Performed By: #### L 100.0100, L500.2500 #### [facility] [address] [place], [address] Hematocrit (Bld) [Volume fraction] 27.0 % Low 40-54 [facility] Comment on above: Performed By: #### L 100.0100, L500.2500 #### [facility] [address] [place], [address] Hemoglobin (Bld) [Mass/Vol] 8.9 g/dL Low 13.0-16.5 [facility] Comment on above: Performed By: #### L 100.0100, L500.2500 #### [facility] [address] [place], [address] IG% 0.500 Normal 0.0-0.9 [facility] Comment on above: Result Comment: IG% - Immature Granulocytes (promyelocytes, myelocytes and metamyelocytes) > 1% indicates that a LEFT SHIFT is Present. Performed By: #### L 100.0100, L500.2500 #### [facility] [address] [place], [address] Lymphocytes/100 WBC (Bld) 20.7 % Normal 19-41 [facility] Comment on above: Performed By: #### L 100.0100, L500.2500 #### [facility] [address] [place], [address] MCH (RBC) [Entitic mass] 31.1 pg Normal 27.0-32.0 [facility] Comment on above: Performed By: #### L 100.0100, L500.2500 #### [facility] [address] [place], [address] MCHC (RBC) [Mass/Vol] 33.0 g/dL Normal 32-36 [facility] Comment on above: Performed By: #### L 100.0100, L500.2500 #### [facility] [address] [place], [address] MCV (RBC) [Entitic vol] 94.4 fL High 80-94 [facility] Comment on above: Performed By: #### L 100.0100, L500.2500 #### [facility] [address] [place], [address] Monocytes/100 WBC (Bld) 5.2 % Normal 0-10 [facility] Comment on above: Performed By: #### L 100.0100, L500.2500 #### [facility] [address] [place], [address] Neutrophils/100 WBC (Bld) 67.8 % Normal 47-70 [facility] Comment on above: Performed By: #### L 100.0100, L500.2500 #### [facility] [address] [place], [address] Nucleated RBC (Bld) [#/Vol] 0 10*3/uL Normal 0-5 [facility] Comment on above: Performed By: #### L 100.0100, L500.2500 #### [facility] [address] [place], [address] Platelet mean volume (Bld) [Entitic vol] 9.5 fL Normal 6.2-12.0 [facility] Comment on above: Performed By: #### L 100.0100, L500.2500 #### [facility] [address] [place], [address] Platelets (Bld) [#/Vol] 198 10*3/uL Normal 150-450 [facility] Comment on above: Performed By: #### L 100.0100, L500.2500 #### [facility] [address] [place], [address] RBC (Bld) [#/Vol] 2.86 10*6/uL Low 4.6-6.2 [facility] Comment on above: Performed By: #### L 100.0100, L500.2500 #### [facility] [address] [place], [address] RDW SD 50.8 fl High 35.1-43.9 [facility] Comment on above: Performed By: #### L 100.0100, L500.2500 #### [facility] [address] [place], [address] WBC (Bld) [#/Vol] 7.9 10*3/uL Normal 4.4-11.0 [facility] Comment on above: Performed By: #### L 100.0100, L500.2500 #### [facility] [address] [place], [address] Carbon dioxide, total [Moles /volume] in Central venous bloodOrdered By: Josette Herron on 10-03-2024 CO2 [Moles/Vol] 31.5 mmol/L 21.0-32.0 [facility] Chest PA and Lateralon 10-03 Chest PA and Lateral [facility] Imaging Services [address] [place] [address] Chest PA and Lateral MR#: [id number] Acct: [id number] Name: LAWSON DOYLE Rep #: [id number] : 2000 M 24 From: Gabriele Castillo MD PCP: Care Physician,No Primary Status: [facility] ER Study: Chest PA and Lateral Date of Exam: 10/03/24 Exam# [id number] Ordering Dr: Josette Herron DO PROCEDURE: CHEST [...] to reflect cardiogenic alveolar edema. Reading Location: [facility] CC: Dr. Josette Herron DO; No Primary Care Physician Host And Hostess: Signed Normal [facility] Chloride assayOrdered By: Ernst Herron on 10-03-2024 Chloride [Moles/Vol] 95 mmol/L Low 98-108 [facility] Emergency Department Summary on 10-03-2024 Emergency Department Summary [facility] Medical Records Department [address] [place] [address] Emergency Department Summary 10/03/24 MR#: [id number] Acct: [id number] Name: LAWSON DOYLE Rep #: [id number] : 2000 24 From: Josette Herron DO [...] is minimally productive today of pink phlegm. [facility] Medical History Dialysis patient Arteriovenous fistula of [...] 1 - 2 puff inhalation Q4H PRN MS N 10/03/24 Unknown Rx aerosol inhaler (Ventolin [...] to in (more content not included)... Normal [facility] Eosinophil percentageOrdered By: Josette Herron on 10-03-2024 Eosinophils/100 WBC (Bld) 5.5 % High 0-5 [facility] Erythrocyte distribution wid th ratioOrdered By: Josette Herron on 10-03-2024 Erythrocyte distribution width (RBC) [Ratio] 14.9 % High 11.6-14.6 [facility] Erythrocyte distribution wid th standard deviationOrdered By: Josette Herron on 10-03-2024 Erythrocyte distribution width (RBC) [Ratio] 50.8 fl High 35.1-43.9 [facility] Glomerular filtration rate ( GFR) estimation/1.73 sq m using serum, plasma, or whole bOrdered By: Josette Herron on 10-03-2024 GFR/1.73 sq M.predicted among non-blacks MDRD (S/P/Bld) [Vol rate/Area] 13 mL/min/{1.73_m2} Low >60 [facility] Comment on above: mL/min/1.73m2 CKD-EP I Creatinine Equation (2020) Hematocrit Auto (Bld) [Volum e fraction]Ordered By: Josette Herron on 10-03-2024 Hematocrit (Bld) [Volume fraction] 27.0 % Low 40-54 [facility] Hemoglobin measurementOrdere d By: Josette Herron on 10-03-2024 Hemoglobin (Bld) [Mass/Vol] 8.9 g/dL Low 13.0-16.5 [facility] Immature granulocytes/100 WB C Auto (Bld)Ordered By: Josette Herron on 07-18-2025 Immature granulocytes/100 WBC (Bld) 0.500 % 0.0-0.9 [facility] Comment on above: IG% - Immature Granu locytes (promyelocytes, myelocytes and metamyelocytes) > 1% indicates that a LEFT SHIFT is Present. Influenza virus A and B and SARS-CoV-2 (COVID-19) and Respiratory syncytial virus RNAOrdered By: Josette Herron on 10-03-2024 SARS-CoV-2 (COVID-19) RNA MIGUEL+probe Ql (Unsp spec) [facility] International normalized rat io (INR) calculationOrdered By: Josette Herron on 10-03-2024 INR Coag (Bld) [Relative time] 0.9 {INR} [facility] Ketones Test strip Ql (U)Ord ered By: Josette Herron on 10-03-2024 Ketones Ql (U) Negative Negative [facility] M100.678on 10-03-2024 M100.678 Pending SARS-CoV-2 (COVID 19) Negative INFLUENZA A Negative INFLUENZA B Negative RSV PCR Negative Normal [facility] Comment on above: Performed By: #### M 100.678 ####[facility] [address] [place], [place], [id number] MCV (mean corpuscular volume ) determinationOrdered By: Josette Herron on 10-03-2024 MCV (RBC) [Entitic vol] 94.4 fL High 80-94 [facility] Mean corpuscular hemoglobin (MCH) determinationOrdered By: Josette Herron on 10-03-2024 MCH (RBC) [Entitic mass] 31.1 pg 27.0-32.0 [facility] Mean corpuscular hemoglobin concentration (MCHC) determinationOrdered By: Josette Herron on 10-03-2024 MCHC (RBC) [Mass/Vol] 33.0 g/dL 32-36 [facility] Mean platelet volume determi nationOrdered By: Josette Herron on 10-03-2024 Platelet mean volume (Bld) [Entitic vol] 9.5 fL 6.2-12.0 [facility] Microscopic analysis of urin e for red blood cells (RBC)Ordered By: Josette Herron on 10-03-2024 Microscopic analysis of urine for red blood cells (RBC) 0-5 SEEN /hpf 0-5 [facility] Monocyte percentageOrdered B y: Josette Herron on 10-03-2024 Monocytes/100 WBC (Bld) 5.2 % 0-10 [facility] Mucus LM Ql (Urine sed)Order ed By: Josette Herron on 10-03-2024 Mucus Ql (Urine sed) 0 SEEN /hpf [facility] Neutrophil percentageOrdered By: Josette Herron on 10-03-2024 Neutrophils/100 WBC (Bld) 67.8 % 47-70 [facility] Nitrite Test strip Ql (U)Ord ered By: Josette Herron on 10-03-2024 Nitrite Ql (U) Negative Negative [facility] Nucleated red blood cell per centageOrdered By: Josette Herron on 10-03-2024 Nucleated RBC/100 WBC (Bld) [Ratio] 0 % 0-5 [facility] Partial Thromboplast Timeon 10-03-2024 aPTT Coag (Bld) [Time] 30.9 s Normal 24.1-36.2 [facility] Comment on above: Performed By: #### L 300.3900, L300.4310 ####[facility] [address] [place], [address] Platelet countOrdered By: Ernst Herron on 10-03-2024 Platelets (Bld) [#/Vol] 198 10*3/uL 150-450 [facility] Potassium measurement (mass/ volume)Ordered By: Josette Herron on 10-03-2024 Potassium (Unsp spec) [Mass/Vol] 4.2 mmol/L 3.3-5.1 [facility] Protein Test strip Ql (U)Ord ered By: Josette Herron on 10-03-2024 Protein Ql (U) 100 mg/dl High Negative [facility] Prothrombin Time w/INRon INR Coag (PPP) [Relative time] 0.9 {INR} Normal [facility] Comment on above: Performed By: #### L 300.3900, L300.4310 #### [facility] [address] [place], [address] PT Coag (PPP) [Time] 12.8 s Normal 11.7-14.9 [facility] Comment on above: Performed By: #### L 300.3900, L300.4310 #### [facility] [address] [place], [address] Prothrombin timeOrdered By: Josette Herron on 10-03-2024 PT Coag (PPP) [Time] 12.8 s 11.7-14.9 [facility] RBC Auto (Bld) [#/Vol]Ordere d By: Josette Herron on 10-03-2024 RBC (Bld) [#/Vol] 2.86 10*6/uL Low 4.6-6.2 [facility] Renal Profileon 10-03-2024 Albumin [Mass/Vol] 3.9 g/dL Normal 3.5-5.0 [facility] Comment on above: Performed By: #### L 100.0100, L500.2500 #### [facility] [address] [place], [address] BUN/CRE 2.0 RATIO Low 10-20 [facility] Comment on above: Performed By: #### L 100.0100, L500.2500 #### [facility] [address] [place], [address] Calcium [Mass/Vol] 9.1 mg/dL Normal 7.6-11.0 [facility] Comment on above: Performed By: #### L 100.0100, L500.2500 #### [facility] [address] [place], [address] Chloride [Moles/Vol] 95 mmol/L Low 98-108 [facility] Comment on above: Performed By: #### L 100.0100, L500.2500 #### [facility] [address] [place], [address] CO2 [Moles/Vol] 31.5 mmol/L Normal 21.0-32.0 [facility] Comment on above: Performed By: #### L 100.0100, L500.2500 #### [facility] [address] [place], [address] Creatinine [Mass/Vol] 5.84 mg/dL High 0.70-1.20 [facility] Comment on above: Performed By: #### L 100.0100, L500.2500 #### [facility] [address] [place], [address] ECRCL 19.97 ml/min Low 50-250 [facility] Comment on above: Performed By: #### L 100.0100, L500.2500 #### [facility] [address] [place], [address] GAP 11 Normal 5-15 [facility] Comment on above: Performed By: #### L 100.0100, L500.2500 #### [facility] [address] [place], [address] GFR/1.73 sq M.predicted among non-blacks MDRD (S/P/Bld) [Vol rate/Area] 13 mL/min/{1.73_m2} Low >60 [facility] Comment on above: Result Comment: mL/m in/1.73m2 CKD-EPI Creatinine Equation (2020) Performed By: #### L 100.0100, L500.2500 #### [facility] [address] [place], [address] Glucose [Mass/Vol] 92 mg/dL Normal 70-99 [facility] Comment on above: Performed By: #### L 100.0100, L500.2500 #### [facility] [address] [place], [address] Phosphate [Mass/Vol] 5.1 mg/dL High 2.7-4.5 [facility] Comment on above: Performed By: #### L 100.0100, L500.2500 #### [facility] [address] [place], [address] Potassium [Moles/Vol] 4.2 mmol/L Normal 3.3-5.1 [facility] Comment on above: Performed By: #### L 100.0100, L500.2500 #### [facility] [address] [place], [address] Sodium [Moles/Vol] 138 mmol/L Normal 133-145 [facility] Comment on above: Performed By: #### L 100.0100, L500.2500 #### [facility] [address] [place], [address] Urea nitrogen [Mass/Vol] 12 mg/dL Normal 4-19 [facility] Comment on above: Performed By: #### L 100.0100, L500.2500 #### [facility] [address] [place], [address] Serum creatinine measurement (mass/volume)Ordered By: Josette Herron on 10-03-2024 Creatinine [Mass/Vol] 5.84 mg/dL High 0.70-1.20 [facility] Serum glucose measurement (m ass/volume)Ordered By: Josette Herron on 10-03-2024 Glucose [Mass/Vol] 92 mg/dL 70-99 [facility] Serum or plasma albumin sharyn urement (mass/volume)Ordered By: Josette Herron on 10-03-2024 Albumin [Mass/Vol] 3.9 g/dL 3.5-5.0 [facility] Serum or plasma calcium sharyn urement (mass/volume)Ordered By: Josette Herron on 10-03-2024 Calcium [Mass/Vol] 9.1 mg/dL 7.6-11.0 [facility] Serum or plasma urea nitroge n measurement (mass/volume)Ordered By: Josette Herron on 10-03-2024 Urea nitrogen [Mass/Vol] 12 mg/dL 4-19 [facility] Sodium levelOrdered By: Landen Herron on 10-03-2024 Sodium [Moles/Vol] 138 mmol/L 133-145 [facility] Squamous epithelial cells de tection in urine sediment by light microscopyOrdered By: Josette Herron on 10-03-2024 Epithelial cells.squamous LM Ql (Urine sed) 0 SEEN /hpf 0-5 [facility] Urinalysis, Completeon 10-03 RBC 0-5 SEEN Normal 0-5 [facility] Comment on above: Order Comment: CLEAN CATCH Performed By: #### L 400.0001 ####[facility] [address] [place], [address] BACTERIA 0 SEEN Normal None Seen [facility] Comment on above: Order Comment: CLEAN CATCH Performed By: #### L 400.0001 ####[facility] [address] [place], [address] EPI,SQUAMOUS 0 SEEN Normal 0-5 [facility] Comment on above: Order Comment: CLEAN CATCH Performed By: #### L 400.0001 ####[facility] [address] [place], [address] Mucus Ql (Urine sed) 0 SEEN Normal [facility] Comment on above: Order Comment: CLEAN CATCH Performed By: #### L 400.0001 ####[facility] [address] [place], [address] WBC 0 SEEN Normal 0-5 [facility] Comment on above: Order Comment: CLEAN CATCH Performed By: #### L 400.0001 ####[facility] [address] [place], [address] Urine clarityOrdered By: Keila Herron on 10-03-2024 Clarity (U) Clear Clear [facility] Urine color determinationOrd ered By: Josette Herron on 10-03-2024 Color (U) Yellow Yellow [facility] Urine glucose detectionOrder ed By: Josette Herron on 10-03-2024 Glucose Ql (U) 100 mg/dl High Normal [facility] Urine leukocyte esterase det ection by dipstickOrdered By: Josette Herron on 10-03-2024 Leukocyte esterase Test strip Ql (U) Negative Negative [facility] Urine pHOrdered By: Josette zuniga on 10-03-2024 pH (U) 8.0 [pH] 5.0 - 8.0 [facility] Urine sediment bacteria coun t by microscopy (number/high power field)Ordered By: Josette Herron on 10-03-2024 Bacteria LM.HPF (Urine sed) [#/Area] 0 /[HPF] None Seen [facility] Urine specific gravity measu rementOrdered By: Josette Herron on 10-03-2024 Specific gravity (U) [Rel density] 1.015 1.002-1.030 [facility] Urine urobilinogen measureme ntOrdered By: Josette Herron on 10-03-2024 Urobilinogen Ql (U) Normal mg/dl Normal [facility] White blood cell (WBC) count Ordered By: Josette Herron on 10-03-2024 WBC (Bld) [#/Vol] 7.9 10*3/uL 4.4-11.0 [facility] White blood cell countOrdere d By: Josette Herron on 10-03-2024 White blood cell count 0 SEEN /hpf 0-5 [facility] HISTORY PHYSICALon HISTORY PHYSICAL HNO ID: [id number] Author: VIKTOR VENCES DO Service: Vascular Surgery [...] DATE: September 16, 2024 TIME: 2:14 PM [facility] OPERATIVE NOon 09-16-2024 OPERATIVE NO HNO ID: [id number] Author: VIKTOR VENCES DO Service: Vascular Surgery Author Type: Physician Type: Operative Report Filed: 09/16/2024 15:42 Note Text: OPERATIVE/PROCEDURE REPORT LOG ID: [id number] Surgery/Procedure Date: 09/16/2024 Incision/Procedure Start Time: 2:46 PM Incision Close/Procedure End Time: 3:39 PM Surgeon(s)/Proceduralis t(s) and Compliance Officer(s): Surgeons and Role: * Viktor Vences DO - Primary Procedure(s): right upper extremity fistulogram and central venogram Balloon angioplasty of cephalic arch stenosis with 6mm and 7mm mustang balloon Anesthesia: moderate sedation Operative indications: 24 year old male who presents for right upper extremity fistulogram due to prolonged bleeding. Procedure details: The procedure was performed by in the equipment operator/laborer. The patient was taken to the equipment operator/laborer where informed consent was obtained. The patient [...] performed the procedure with assistance. Viktor Vences [facility] CNCOon 09-12-2024 CNCO Letter Text Normal [facility] L3890.6102on 05-14-2024 HEP B Surf Ag Non-Reactive Normal Nonreactive [facility] Comment on above: Result Comment: Reac tive: Presumptive evidence of HBV. Repeatedly reactive samples must be confirmed using a neutralization test (Elecsys HBsAg Confirmatory Test) Non-Reactive: HBsAg not detected; does not exclude the possibility of exposure to HBV Performed By: #### L 3890.6102 ####[facility] [address] [place], [address] CT ABD/PEL WO IVCONon 2024 CT ABD/PEL WO IVCON * * *Final Report* * * DATE OF EXAM: Apr 17 2024 9:16AM [facility] 0531 - CT ABD/PEL WO IVCON / [...] thorax: Unremarkable. IMPRESSION: No aortobiiliac vascular calcifications. Host And Hostess: ROBERTS CHAPEL Transcribe Date/Time: Apr 17 2024 9:22A Dictated by : SHOAIB MENDOZA MD This examination was interpreted and the report reviewed and electronically signed by: ISABELL ANDERSON MD on Apr 17 2024 9:58AM EST [id number] Normal [facility] CT Abdomen and Pelvis WO con traston 04-17-2024 Radiology Study observation (narrative) [facility] IMPRESSION: No aortobiiliac vascular calcifications. Host And Hostess: ROBERTS [place]AP[place] Transcribe Date/Time: Apr 17 2024 9:22A Dictated by : SHOAIB MENDOZA MD This examination was interpreted and the report reviewed and electronically signed by: ISABELL ANDERSON MD on Apr 17 2024 9:58AM EST DIVISION OF RADIOLOGY * * *Final Report* * * DATE OF EXAM: Apr 17 2024 9:16AM [facility] - CT ABD/PEL WO IVCON [...] Lower thorax: Unremarkable. DIVISION OF RADIOLOGY Provider, Psychiatric Lawson [facility] - 04/17/2024 * * *Final Report* * * DATE OF EXAM: Apr 17 2024 9:16AM [place] [facility]31 - CT ABD/PEL WO IVCON / [...] Unremarkable. IMPRESSION IMPRESSION: No aortobiiliac vascular calcifications. Host And Hostess: MARY Transcribe Date/Time: Apr 17 2024 9:22A Dictated by : SHOAIB MENDOZA MD This examination was interpreted and the report reviewed and electronically signed by: ISABELL ANDERSON MD on Apr 17 2024 9:58AM EST [facility] CT Abdomen and Pelvis WO con trastOrdered By: Ccf Provider on 04-17-2024 [facility] KID K/P PANC REC HLA AB SCRN on 04-17-2024 ALLOGEN RESULTS TO FOLLOW See Allogen report to follow Normal [facility] Comment on above: Order Comment: Speci men Type: BLOOD SPECIMENOrdering Facility: [facility] Address: [address] [place] [address] Performed By: #### K PRHAS ####[facility] [id number] [place] [address] [place] NICOTINE/COTININEon 04-17-19 25 Cotinine [Mass/Vol] <2 Normal <2 [facility] Comment on above: Order Comment: Speci men Type: BLOOD SPECIMENOrdering Facility: [facility] Address: [address] [place] [address] Result Comment: Acti ve tobacco product user: [...] performance characteristics determined by the [facility] Department of Pathology and Laboratory Medicine. It has not been cleared or approved by the FDA. The [facility] Department of Pathology and Laboratory Medicine is regulated under CLIA as qualified to perform high-complexity testing. This test is used for clinical purposes. It should not be regarded as investigational or for research. Performed By: #### N ICOT ####[facility] LABCLIA [id number] [place] [address] [place] Nicotine [Mass/Vol] <2 Normal <2 [facility] Comment on above: Order Comment: Speci men Type: BLOOD SPECIMENOrdering Facility: [facility] Address: [address] [place] [address] Performed By: #### N ICOT ####[facility] LABCLIA [id number] [address] STATES OF [facility] CT HEAD WO IV CONTRASTon CT HEAD WO IV CONTRAST Interpreted By: Bert Winkler, STUDY: CT HEAD WO IV CONTRAST; 03/06/2024 4:10 am INDICATION: Signs/Symptoms:HEAD INJURY. COMPARISON: 05/09/2023. ACCESSION NUMBER(S): [id number] ORDERING CLINICIAN: ISAC PADGETT TECHNIQUE: Noncontrast axial [...] Bert Winkler 03/06/2024 4:29 AM Dictation workstation: [id number] [facility] CT Head WO contraston 2023 No evidence of acute intracranial abnormality. MACRO: None Signed by: Bert Winkler 03/06/2024 4:29 AM Dictation workstation: [id number] [facility] Interpreted By: Bert Richardson, STUDY: CT HEAD WO IV CONTRAST; 03/06/2024 4:10 am INDICATION: Signs/Symptoms:HEAD INJURY. COMPARISON: 05/09/2023. ACCESSION NUMBER(S): [id number] ORDERING CLINICIAN: ISAC PADGETT TECHNIQUE: Noncontrast axial [...] INDICATION: Signs/Symptoms:HEAD INJURY. COMPARISON: 05/09/2023. ACCESSION NUMBER(S): [id number] ORDERING CLINICIAN: ISAC PADGETT TECHNIQUE: Noncontrast axial [...] Bert Winkler 03/06/2024 4:29 AM Dictation workstation: [id number] [facility] Work Phone: Radiology Study observation (narrative) [facility] Work Phone: CT Head WO contrastOrdered B y: Bert Winkler on 03-06-2024 [facility] Work Phone: CNCOon 03-05-2024 CNCO Letter Text Normal [facility] BLOOD TB SCREENon 03-04-2024 M. tuberculosis tuberculin stim IFN-g Ql (Bld) Negative Normal [facility] Comment on above: Order Comment: Speci men Type: BLOOD SPECIMENOrdering Facility: [facility] Address: [address] [place] [address] Performed By: #### I NFTBP ####[facility] LABCLIA [id number] [facility] [id number] [place] [address] [place] MITOGEN MINUS NIL >10.00 Normal >=0.50 [facility] Comment on above: Order Comment: Speci men Type: BLOOD SPECIMENOrdering Facility: [facility] Address: [address] [place] [address] Performed By: #### I NFTBP ####[facility] LABCLIA [id number] [place] [address] [place] TB GAMMA INTERPRETATION Infection with M. tuberculosis complex is unlikely. If latent tuberculosis infection is highly suspected, a negative result does not rule out the infection. Specimens from immunocompromised patients and those <5 years of age may show false negative results. In case of a contact investigation, please repeat 8-12 weeks after a known exposure. Normal [facility] Comment on above: Order Comment: Speci men Type: BLOOD SPECIMENOrdering Facility: [facility] Address: [address] [place] [address] Performed By: #### I NFTBP ####[facility] LABCLIA [id number] [place] [address] [place] TB NIL 0.00 IU/mL Normal <=8.00 [facility] Comment on above: Order Comment: Speci men Type: BLOOD SPECIMENOrdering Facility: [facility] Address: [address] [place] [address] Performed By: #### I NFTBP ####[facility] LABCLIA [id number] [place] [address] [place] TB1 AG MINUS NIL 0.04 IU/mL Normal <0.35 [facility] Comment on above: Order Comment: Speci men Type: BLOOD SPECIMENOrdering Facility: [facility] Address: [address] [place] [address] Performed By: #### I NFTBP ####[facility] LABCLIA [id number] [place] [address] [place] TB2 AG MINUS NIL 0.05 IU/mL Normal <0.35 [facility] Comment on above: Order Comment: Speci men Type: BLOOD SPECIMENOrdering Facility: [facility] Address: [address] [place] [address] Performed By: #### I NFTBP ####[facility] LABCLIA [id number] [place] [address] [place] CMV IgG Qnon 03-04-2024 CMV IGG QUAL Negative Normal Negative [facility] Comment on above: Order Comment: Speci men Type: BLOOD SPECIMENOrdering Facility: [facility] Address: [address] [place] [address] Result Comment: No s erological evidence of past exposure to Cytomegalovirus. Cannot exclude recent infection if the specimen collected within 4-6 weeks after infection. Performed By: #### 7 852-7, MEASLG, VZVG2 ####[facility] LABIA [id number] [place] [address] [place] CMV IgG SerPl-aCncon 024 CMV IgG Qn 0.46 U/mL Normal [facility] Comment on above: Order Comment: Speci men Type: BLOOD SPECIMENOrdering Facility: [facility] Address: [address] [place] [address] Result Comment: The magnitude of the measured result is not indicative of the amount of antibody present. U/mL values are interpreted as follows: Negative <0.6 Equivocal 0.6 to <0.70 Positive >=0.70 Performed By: #### 7 852-7, MEASLG, VZVG2 ####[facility] LABIA [id number] [place] [address] [place] CNOVon 03-04-2024 CNOV Office Visit (TXCTGL ) LAWSON DOYLE ([id number]) 2000 M Date Time Provider Department 03/04/24 [...] to be completed at a [facility] facility: CARDIAC: ECG - today CANCER SCREENING: CXR PA AND Lat ADDITIONAL CONSULTS Social work clearance after negative cotinine test Imaging Studies: CT of abdomen and pelvis without contrast - this nurse to order Miscellaneous Items: Labs - today Cotinine test - today Influenza vaccine suggested COVID vaccine suggested You are responsible for scheduling your needed testing/consults. Please feel free to call [phone] to arrange. Outside test results should be faxed to [phone]. Please review the kidney transplant educational materials on line at [email or web address] Sign-in: Kidney To check on your status on the wait list, please contact your coordinator, Velma Kwong RN [phone]. You will need to follow up with the transplant team in 1 year for reassessment. Velma Kwong RN Kidney/Pancreas Pre-Electric Meter Technician [facility] Referring Provider: HUA WHEELER [[id number]] Allergies As of Date: 03/04/2024 (No Known [...] to be completed at a [facility] facility: CARDIAC: ECG - today CANCER SCREENING: CXR PA AND Lat ADDITIONAL CONSULTS Social work clearance after negative cotinine test Imaging Studies: CT of abdomen and pelvis without contrast - this nurse to order Miscellaneous Items: Labs - today Cotinine test - today Influenza vaccine suggested COVID vaccine suggested You are responsible for scheduling your needed testing/consults. Please feel free to call [phone] to arrange. Outside test results should be faxed to [phone]. Please review the kidney transplant educational materials on line at [email or web address] Sign-in: Kidney To check on your status on the wait list, please contact your coordinator, Velma Kwong RN [phone]. You will need to follow up with the transplant team in 1 year for reassessment. Velma Kwong RN Kidney/Pancreas Pre-Electric Meter Technician [facility] Encounter Status:Closed by VELMA KWONG on 03/04/24 Normal [facility] CNOV Office Visit (TXCTGL ) LAWSON DOYLE ([id number]) 2000 M Date Time Provider Department 03/04/24 3:30 PM WAIT LIST TXCTGL During your visit today, we recorded the following information about you: Temperature Pulse Blood pressure Weight 98.6 degrees 94/minute 140/92 83.5 kg Height 1.778 m Hua Wheeler MD 03/04/2024 1:30 PM Signed [facility] TRANS[facility]ANT TRANSPLANT RE-EVALUATION Patient is a 24 year old male here for re-evaluation of his Kidney transplant status. Dialysis Start Date: 03/18/2022 Dialysis Type: hemodialysis, M-W-F Dialysis Access: right upper extremity arteriovenous fistula Dialysis Unit: [address] [address] Referring/Local Instrument Specialist: Dr Higuera Last evaluation: 12/21/2022 Listed for [...] [place] Urine Output: 0.5L daily DM: No GA, CVA, PE/DVT: No Anticoagulation: No Immunosuppression: No [...] in t (more content not included)... Normal [facility] CNOV Office Visit (TXCTGL ) LAWSON DOYLE ([id number]) 2000 M Date Time Provider Department 03/04/24 3:30 PM UROLOGY WAIT LIST TXCTGL During your visit today, we recorded the following information about you: Temperature Pulse Blood pressure Weight 98.6 degrees 94/minute 140/92 83.5 kg Height 1.778 m Ramiro Rico MD 03/04/2024 2:09 PM Signed [facility] TRANSPLANT RE-EVALUATION Patient is a 24 year old male here for re-evaluation of his Kidney transplant status. Dialysis Start Date: 03/18/2022 Dialysis Type: hemodialysis, M-W-F Dialysis Access: right upper extremity arteriovenous fistula Dialysis Unit: [facility] [address] [place] [address] Referring/Local Instrument Specialist: Dr Higuera Last evaluation: 12/21/2022 Listed for [...] [place] Urine Output: 0.5L daily DM: No GA, CVA, PE/DVT: No Anticoagulation: No Immunosuppression: No [...] nodule, stable (more content not included)... Normal [facility] CNOV Office Visit (TXCTGL ) URBENS,LAWSON ([id number]) 2000 M Date Time Provider Department 03/04/24 1:30 PM KIDNEY TXP COORDINATORS TXCTGL During your visit today, we recorded the following information about you: Referring Provider: HUA WHEELER [[id number]] Allergies As of Date: 03/04/2024 (No Known [...] Encounter Status:Closed by VELMA KWONG on 03/04/24 [facility] CNOV Office Visit (TXCTGL ) LAWSON DOYLE ([id number]) 2000 M Date Time Provider Department 03/04/24 [...] studies that were obtained outside [facility] facilities. -Explained lifetime immunosuppression therapy and frequency of blood draws/labs post-op and post-op course of treatment. Method of Instruction: Group class instruction Patient/Family Response: Patient asked appropriate questions, which were answered satisfactorily. PAULETTE Nevarez, RN, [facility] Kidney/Pancreas Pre-Electric Meter Technician Allergies As of Date: 03/04/2024 (No Known [...] Encounter Status:Closed by ELBERT LEE on 03/04/24 [facility] Isaac 03-04-2024 CNPN Telephone (TXCTGL) LAWSON DOYLE ([id number]) 2000 M Date Time Provider Department 03/04/24 KIDNEY TXP COORDINATORS TXCTGL During your visit today, we recorded the following information about you: Ector Red 03/04/2024 9:23 AM Signed Alice from [facility] X-Ray Dept called in, she states need active order for Cxr, as the patient has an appointment today. I explained there was one previously in August 2023, linked to this appointment, she states it is not in the active orders, and will need another one filed in [facility] to have completed. Paged nurse coordinators due to urgency and call back number if needed is [phone]. Velma Blanton RN 03/04/2024 10:13 AM Signed New order placed at this time. Allergies As of Date: 03/04/2024 (No Known Allergies) Date Reviewed: 08/06/2023 Reviewed by: Alice York, TASHIA - Fully Assessed Reason for Visit: Chest X-Ray Order Request in [facility] [Other] Prescriptions as of 03/04/2024 - RENAPLEX-D [...] Status:Closed by VELMA KWONG on 03/04/24 [facility] 03-04-2024 ECG COMPLETE Ventricular Rate : 7 7 BPM Atrial Rate : 77 BPM P-R Interval : 126 ms QRS Duration : 92 ms Q-T Interval : 384 ms QTC Calculation(Bazett) : 434 ms Calculated P Haywood : 54 degrees Calculated R Haywood : 51 degrees Calculated T Haywood : 32 degrees NORMAL SINUS RHYTHM WITH SINUS ARRHYTHMIA NORMAL ECG Confirmed by TONI JAMES M.D. ([id number]) on 03/20/2024 1:29:36 PM NAME : LAWSON DOYLE PID : [id number] : 2000 Gender : Male Race : ORD : [id number] Procedure Date : Mar 04 2024 14:14:42 [...] WHEELER Acquired by : MOISES MARTINI Normal [facility] HBV core Ab Ser Qlon 024 HBV core Ab Ql (S) Negative Normal Negative [facility] Comment on above: Order Comment: Speci men Type: BLOOD SPECIMENOrdering Facility: [facility] Address: [address] [place] [address] Result Comment: No e vidence of current or past infection with Hepatitis B virus. Should recent infection be suspected, repeat testing may be considered 3-4 weeks after this draw. Performed By: #### 3 1201-7, 80620-2, 5195-3, 56767-1 ####[facility] LABCLIA [id number] [place] [address] [place] HBV surface Ab Ql (S)on 02-16 HBV surface Ab Qn (S) >1000.00 Normal [facility] Comment on above: Order Comment: Speci men Type: BLOOD SPECIMENOrdering Facility: [facility] Address: [address] [place] [address] Result Comment: <8 m IU/mL: No serological evidence of immunity to Hepatitis B Virus. >/= 8 to <12 mIU/mL: No serological evidence of immunity to Hepatitis B Virus. >/= 12 mIU/mL: Consistent with serological evidence of immunity to Hepatitis B Virus. Performed By: #### 3 1201-7, 87795-3, 5195-3, 68676-9 ####[facility] LABCLIA [id number] [place] [address] [place] HBV surface Ab Ser Qlon 02-16 HBV surface Ab Ql (S) Positive Normal [facility] Comment on above: Order Comment: Speci gayathri Type: BLOOD SPECIMENOrdering Facility: [facility] Address: [address] [place] [address] Result Comment: Cons istent with serological evidence of immunity to Hepatitis B Virus. Performed By: #### 3 1201-7, 12914-1, 5195-3, 31688-3 ####[facility] LABIA [id number] [place] [address] [place] HBV surface Ag Ser Qlon 02-16 HBV surface Ag Ql (S) Negative Normal Negative [facility] Comment on above: Order Comment: Speci men Type: BLOOD SPECIMENOrdering Facility: [facility] Address: [address] [place] [address] Performed By: #### 3 1201-7, 09795-2, 5195-3, 35181-5 ####[facility] [id number] [place] [address] [place] HCV Ab Ser Qlon 03-04-2024 HCV Ab Ql (S) Negative Normal Negative [facility] Comment on above: Order Comment: Speci men Type: BLOOD SPECIMENOrdering Facility: [facility] Address: [address] [place] [address] Result Comment: The result suggests no evidence of active infection with Hepatitis C virus. Should recent infection be suspected, repeat testing may be considered 4-6 weeks after this draw. Performed By: #### 1 6128-1 ####[facility] LABIA [id number] [place] [address] [place] HCV RNA MIGUEL+probe Qnon 03-04 HCV RNA MIGUEL+probe Ql Not detected Normal Not detected [facility] Comment on above: Order Comment: Speci men Type: BLOOD SPECIMENOrdering Facility: [facility] Address: [address] [place] [address] Performed By: #### 1 1011-4 ####[facility] LABIA [id number] [place] [address] [place] HIV 1+2 Ab IA Qlon HIV 1 and 2 Ab IA.rapid Nom (S/P/Bld) Normal [facility] Comment on above: Order Comment: Speci men Type: BLOOD SPECIMENOrdering Facility: [facility] Address: [address] [place] [address] Result Comment: Test not indicated. Performed By: #### 3 1201-7, 24906-4, 5195-3, 82384-9 ####[facility] LABCLIA [id number] [place] [address] [place] HIV 1+2 Ab+HIV1 p24 Ag IA Ql Non-Reactive Normal Nonreactive [facility] Comment on above: Order Comment: Speci men Type: BLOOD SPECIMENOrdering Facility: [facility] Address: [address] [place] [address] Performed By: #### 3 1201-7, 90627-0, 5-3, 80724-9 ####[facility] LABCLIA [id number] [place] [address] [place] HIV immunoassay testing algorithm interpretation (S/P/Bld) [Interp] Normal [facility] Comment on above: Order Comment: Speci men Type: BLOOD SPECIMENOrdering Facility: [facility] Address: [address] [place] [address] Result Comment: No e vidence of HIV-1 or HIV-2 infection. Should recent infection be suspected, repeat testing may be considered 2-3 weeks after this draw. [place] Rev. Code 3701.243(E): This information has [...] or diagnoses. Performed By: #### 3 1201-7, 47956-0, 5195-3, 65066-9 ####[facility] LABCLIA [id number] [place] [id number] [place] KID K/P PANC REC HLA AB SCRN on 03-04-2024 ALLOGEN RESULTS TO FOLLOW See Allogen report to follow Normal [facility] Comment on above: Order Comment: Speci men Type: BLOOD SPECIMENOrdering Facility: [facility] Address: [address] [place] [address] Performed By: #### K PRHAS ####[facility]OR[facility]IESCLIA [id number] [place] [address] [place] RUBEOLA (MEASLES)IGGon 03-04 MEASLES IGG AB, QUAL Positive Normal Positive [facility] Comment on above: Order Comment: Speci men Type: BLOOD SPECIMENOrdering Facility: [facility] Address: [address] [place] [address] Result Comment: The result suggests recent or past exposure to Measles virus or Measles vaccination. The current test does not detect neutralizing antibodies. Positive result may also be seen due to presence of passively-transferred antibodies. Please correlate with patient's history. Performed By: #### 7 852-7, MEASLG, VZVG2 ####[facility] LABCLIA [id number] [place] [address] [place] Reagin and Treponema pallidu m IgG and IgM [Interp]on 03-04-2024 T. pallidum IgG+IgM IA Ql (S) Non-Reactive Normal Nonreactive [facility] Comment on above: Order Comment: Speci men Type: BLOOD SPECIMENOrdering Facility: [facility] Address: [address] [place] [address] Performed By: #### 7 3752-8 ####[facility] LABCLIA [id number] [place] [address] [place] Reagin+T pallidum IgG+IgM Se rPl-Impon 03-04-2024 Reagin and Treponema pallidum IgG and IgM [Interp] Cannot exclude recent Treponemal infection if specimen collected within 7-10 days after appearance of suspect lesions or 2-3 weeks after an exposure. Clinical correlation is required. Normal [facility] Comment on above: Order Comment: Speci men Type: BLOOD SPECIMENOrdering Facility: [facility] Address: [address] [place] [address] Performed By: #### 7 3752-8 ####[facility] LABCLIA [id number] [place] [address] [place] VARICELLA ZOSTER IGGon 03-04 VARICELLA ZOSTER IGG, QUAL Positive Normal Positive [facility] Comment on above: Order Comment: Speci men Type: BLOOD SPECIMENOrdering Facility: [facility] Address: [address] [place] [address] Result Comment: The result suggests recent or past exposure to Varicella-Zoster virus or chickenpox vaccination or zoster vaccination. Positive result may also be seen due to presence of passively-transferred antibodies. Please correlate with patient's history. Performed By: #### 7 852-7, MEASLG, VZVG2 ####[facility] LABCLIA [id number] [place] [address] [place] XR CHEST 2V [...] IMPRESSION: Please see body of the report. Host And Hostess: MARY Transcribe Date/Time: Mar 04 2024 2:25P Dictated by : TORRES VALDEZ MD This examination was interpreted and the report reviewed and electronically signed by: TORRES VALDEZ MD on Mar 04 2024 2:26PM EST [id number] Normal [facility] XR Chest PA and Lateralon Radiology Study observation (narrative) [facility] IMPRESSION: Please see body of the report. Host And Hostess: MARY Transcribe Date/Time: Mar 04 2024 2:25P [...] heights are maintained. DIVISION OF RADIOLOGY Provider, [facility] - 03/04/2024 * * *Final Report* * [...] IMPRESSION: Please see body of the report. Host And Hostess: MARY Transcribe Date/Time: Mar 04 2024 2:25P Dictated by : TORRES VALDEZ MD This examination was interpreted and the report reviewed and electronically signed by: TORRES VALDEZ MD on Mar 04 2024 2:26PM EST [facility] XR Chest PA and LateralOrder ed By: Ccf Provider on 03-04-2024 [facility] CNPNon 02-28-2024 CNPN Telephone (TXCTGL) LAWSON DOYLE ([id number]) 2000 M Date Time Provider Department 02/28/24 [...] Status:Closed by ECTOR RED on 02/28/24 Normal [facility] Basic Metabolic Profile (BMP )on 02-11-2024 BUN/CRE 4.7 RATIO Low 10-20 [facility] Comment on above: Performed By: #### L 100.0100, L500.2500 #### [facility] [address] [place], [address] CA,Total 9.2 mg/dL Normal 8.5-10.1 [facility] Comment on above: Performed By: #### L 100.0100, L500.2500 #### [facility] [address] [place], [address] Chloride [Moles/Vol] 100 mmol/L Normal 98-107 [facility] Comment on above: Performed By: #### L 100.0100, L500.2500 #### [facility] [address] [place], [address] CO2 [Moles/Vol] 32.0 mmol/L Normal 21.0-32.0 [facility] Comment on above: Performed By: #### L 100.0100, L500.2500 #### [facility] [address] [place], [address] Creatinine [Mass/Vol] 7.58 mg/dL Invalid Interpretation Code 0.70-1.30 [facility] Comment on above: Result Comment: Crit ical Result(s) Called at: 01:16:02 02/11/2024 by: Driss Larson. ÁNGEL BARBOUR RN ED. Results read back by same. The validity of the calculated GFR GFRAA in patients over 70 years has not been determined. Clinical correlation is essential. Performed By: #### L 100.0100, L500.2500 #### [facility] [address] [place], [address] ECRCL 15.52 ml/min Normal [facility] Comment on above: Performed By: #### L 100.0100, L500.2500 #### [facility] [address] [place], [address] EST GFR - AA 11 mL/min Low >60 [facility] Comment on above: Result Comment: Afri can Brazilian GFR Calc Performed By: #### L 100.0100, L500.2500 #### [facility] [address] [place], [address] GAP 9 Normal 5-15 [facility] Comment on above: Performed By: #### L 100.0100, L500.2500 #### [facility] [address] [place], [address] GFR/1.73 sq M.predicted among non-blacks MDRD (S/P/Bld) [Vol rate/Area] 9 mL/min/{1.73_m2} Low >60 [facility] Comment on above: Result Comment: Non- GFR Calc Performed By: #### L 100.0100, L500.2500 #### [facility] [address] [place], [address] Glucose [Mass/Vol] 144 mg/dL High 74-106 [facility] Comment on above: Result Comment: Fast ing Glucose result greater than or equal to 126 mg/dL suggests DIABETES MELLITUS per A.D.A. criteria. Performed By: #### L 100.0100, L500.2500 #### [facility] [address] [place], [address] Potassium [Moles/Vol] 4.5 mmol/L Normal 3.5-5.1 [facility] Comment on above: Performed By: #### L 100.0100, L500.2500 #### [facility] [address] [place], [address] Sodium [Moles/Vol] 142 mmol/L Normal 136-145 [facility] Comment on above: Performed By: #### L 100.0100, L500.2500 #### [facility] [address] [place], [address] Urea nitrogen [Mass/Vol] 36 mg/dL High 7-18 [facility] Comment on above: Performed By: #### L 100.0100, L500.2500 #### [facility] [address] [place], [address] CBC W/Diff, Automatedon 11-2 Absolute Lymph 2.22 X10 3/uL Normal 0.83-4.51 [facility] Comment on above: Performed By: #### L 100.0100, L500.2500 #### [facility] [address] [place], [address] Absolute Neut 5.1 X10 3/uL Normal 2.0-7.7 [facility] Comment on above: Performed By: #### L 100.0100, L500.2500 #### [facility] [address] [place], [address] Basophils/100 WBC (Bld) 0.2 % Normal 0-1 [facility] Comment on above: Performed By: #### L 100.0100, L500.2500 #### [facility] [address] [place], [address] Eosinophils/100 WBC (Bld) 14.6 % High 0-5 [facility] Comment on above: Performed By: #### L 100.0100, L500.2500 #### [facility] [address] [place], [address] Erythrocyte distribution width (RBC) [Ratio] 13.9 % Normal 11.6-14.6 [facility] Comment on above: Performed By: #### L 100.0100, L500.2500 #### [facility] [address] [place], [address] Hematocrit (Bld) [Volume fraction] 36.3 % Low 40-54 [facility] Comment on above: Performed By: #### L 100.0100, L500.2500 #### [facility] [address] [place], [address] Hemoglobin (Bld) [Mass/Vol] 12.2 g/dL Low 13.0-16.5 [facility] Comment on above: Performed By: #### L 100.0100, L500.2500 #### [facility] [address] [place], [address] IG% 0.300 Normal 0.0-0.9 [facility] Comment on above: Result Comment: IG% - Immature Granulocytes (promyelocytes, myelocytes and metamyelocytes) > 1% indicates that a LEFT SHIFT is Present. Performed By: #### L 100.0100, L500.2500 #### [facility] [address] [place], [address] Lymphocytes/100 WBC (Bld) 24.2 % Normal 19-41 [facility] Comment on above: Performed By: #### L 100.0100, L500.2500 #### [facility] [address] [place], [address] MCH (RBC) [Entitic mass] 32.7 pg High 27.0-32.0 [facility] Comment on above: Performed By: #### L 100.0100, L500.2500 #### [facility] [address] [place], [address] MCHC (RBC) [Mass/Vol] 33.6 g/dL Normal 32-36 [facility] Comment on above: Performed By: #### L 100.0100, L500.2500 #### [facility] [address] [place], [address] MCV (RBC) [Entitic vol] 97.3 fL High 80-94 [facility] Comment on above: Performed By: #### L 100.0100, L500.2500 #### [facility] [address] [place], [address] Monocytes/100 WBC (Bld) 5.2 % Normal 0-10 [facility] Comment on above: Performed By: #### L 100.0100, L500.2500 #### [facility] [address] [place], [address] Neutrophils/100 WBC (Bld) 55.5 % Normal 47-70 [facility] Comment on above: Performed By: #### L 100.0100, L500.2500 #### [facility] [address] [place], [address] Nucleated RBC (Bld) [#/Vol] 0 10*3/uL Normal 0-5 [facility] Comment on above: Performed By: #### L 100.0100, L500.2500 #### [facility] [address] [place], [address] Platelet mean volume (Bld) [Entitic vol] 9.7 fL Normal 6.2-12.0 [facility] Comment on above: Performed By: #### L 100.0100, L500.2500 #### [facility] [address] [place], [address] Platelets (Bld) [#/Vol] 271 10*3/uL Normal 150-450 [facility] Comment on above: Performed By: #### L 100.0100, L500.2500 #### [facility] [address] [place], [address] RBC (Bld) [#/Vol] 3.73 10*6/uL Low 4.6-6.2 [facility] Comment on above: Performed By: #### L 100.0100, L500.2500 #### [facility] [address] [place], [address] RDW SD 49.5 fl High 35.1-43.9 [facility] Comment on above: Performed By: #### L 100.0100, L500.2500 #### [facility] [address] [place], [address] WBC (Bld) [#/Vol] 9.2 10*3/uL Normal 4.4-11.0 [facility] Comment on above: Performed By: #### L 100.0100, L500.2500 #### [facility] [address] [place], [address] Emergency Department Summary on 02-11-2024 Emergency Department Summary [facility] Medical Records Department [address] [place] [address] Emergency Department Summary 02/11/24 MR#: [id number] Acct: [id number] Name: LAWSON DOYLE Rep #: [id number] : 2000 23 From: Serg Lyman MD [...] Blood Pressur (more content not included)... Normal [facility] Urinalysis, Routine (Dipstic k)on 02-11-2024 BILIRUBIN URINE Negative Normal Negative [facility] Comment on above: Order Comment: CLEAN CATCH Performed By: #### L 400.2010 ####[facility] [address] [place], [address] Clarity (U) Clear Normal Clear [facility] Comment on above: Order Comment: CLEAN CATCH Performed By: #### L 400.2010 ####[facility] [address] [place], [address] Color (U) Yellow Normal Yellow [facility] Comment on above: Order Comment: CLEAN CATCH Performed By: #### L 400.2010 ####[facility] [address] [place], [address] GLUCOSE, UR 100 mg/dl Abnormal Normal [facility] Comment on above: Order Comment: CLEAN CATCH Performed By: #### L 400.2010 ####[facility] [address] [place], [address] KETONE UR Negative Normal Negative [facility] Comment on above: Order Comment: CLEAN CATCH Performed By: #### L 400.2010 ####[facility] [address] [place], [address] LEUK ESTERASE Negative Normal Negative [facility] Comment on above: Order Comment: CLEAN CATCH Performed By: #### L 400.2010 ####[facility] [address] [place], [address] Nitrite Ql (U) Negative Normal Negative [facility] Comment on above: Order Comment: CLEAN CATCH Performed By: #### L 400.2010 ####[facility] [address] [place], [address] OCCULT BLOOD-UR 150 /ul Abnormal Negative [facility] Comment on above: Order Comment: CLEAN CATCH Performed By: #### L 400.2010 ####[facility] [address] [place], [address] pH UR 8.0 Normal 5.0 - 8.0 [facility] Comment on above: Order Comment: CLEAN CATCH Performed By: #### L 400.2010 ####[facility] [address] [place], [address] PROT DIPSTX 100 mg/dl Abnormal Negative [facility] Comment on above: Order Comment: CLEAN CATCH Performed By: #### L 400.2010 ####[facility] [address] [place], [address] SP.GR. DIPSTX 1.010 Normal 1.002-1.030 [facility] Comment on above: Order Comment: CLEAN CATCH Performed By: #### L 400.2010 ####[facility] [address] [place], [address] UROBILI Normal Normal Normal [facility] Comment on above: Order Comment: CLEAN CATCH Performed By: #### L 400.2010 ####[facility] [address] [place], [place], [address] CNOVon 12-04-2023 CNOV Office Visit (TXCTGL ) LAWSON DOYLE ([id number]) 2000 M Date Time Provider Department 12/04/23 2:30 PM WAIT LIST TXCTGL During your visit today, we recorded the following information about you: Ed Celeste RN 12/10/2023 10:01 AM Signed No show Referring Provider: HUA WHEELER [[id number]] Allergies As of Date: 12/04/2023 (No Known [...] Encounter Status:Closed by ED CELESTE on 12/10/23 [facility] CNOV Office Visit (TXCTGL ) LAWSON DOYLE ([id number]) 2000 M Date Time Provider Department 12/04/23 2:00 PM UROLOGY WAIT LIST TXCTGL During your visit today, we recorded the following information about you: Ed Celeste RN 12/10/2023 10:02 AM Signed No show Referring Provider: HUA WHEELER [[id number]] Allergies As of Date: 12/04/2023 (No Known [...] Encounter Status:Closed by ED CELESTE on 12[facility] [facility] Telephone (TXCTGL) LAWSON DOYLE ([id number]) 2000 M Date Time Provider Department 11/29/23 [...] Encounter Status:Closed by ELBERT ARELLANO on 11/29/[address] [facility] CNPN Telephone (TXCTGL) LAWSON DOYLE ([id number]) 2000 M Date Time Provider Department 10/03/23 [facility] During your visit today, we recorded the following information about you: Ector Red 10/03/2023 1:21 PM Signed Vaccinations with MMR and Varicella scanned into [employer] ([employer]). Ector Rde Allergies As of Date: 10/03/2023 (No Known [...] Encounter Status:Closed by ECTOR RED on 10/03/23 [facility] BRIEF OP NOTon 08-06-2023 BRIEF OP NOT HNO ID: [id number] Author: DARRICK BELTRAN MD Service: Vascular Surgery Author Type: Resident Type: Brief Op Note Filed: 08/06/2023 13:35 Note Text: BRIEF OPERATIVE / PROCEDURE NOTE LOG ID: [id number] Surgery/Procedure Date: 08/06/2023 Incision/Procedure Start Time: 1:06 PM Incision Close/Procedure End Time: 1:19 PM Surgeon(s)/Proceduralis t(s) and Compliance Officer(s): Surgeon(s) and Role: * Don Patel MD - Primary * Darrick Beltran MD - Resident - Assisting No Additional Staff Procedure(s): Procedure(s): PERC THROMBECTOMY/INFUSION FOR THROMBOLYSIS AV FISTULA,FLUORO GUIDED,INCLUSIVE OF RAD NESHA Fistulogram : Access: 6 Fr Closure: Manual Compression Contrast: 13cc Fluorotime: 0.4 min, 8.34 Gy Anesthesia: Procedural Sedation ASA Class: ASA Class:: IIIE 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2 [facility] Comment on above: Order Comment: Ez trinh Type: BLOOD SPECIMEN [facility] Address: [address] [place] [address] Performed By: #### 2 4321-2 #### [facility] CLIA [id number] [address] [place] [address] [place] Chloride [Moles/Vol] 98 mmol/L Normal 97-105 [facility] Comment on above: Order Comment: Speci men Type: BLOOD SPECIMEN [facility] Address: [address] [place] [address] Performed By: #### 2 4321-2 #### [facility] CLIA [id number] [address] [place] [address] [place] CO2 [Moles/Vol] 28 mmol/L Normal 22-30 [facility] Comment on above: Order Comment: Speci men Type: BLOOD SPECIMEN [facility] Address: [address] [place] [address] Performed By: #### 2 4321-2 #### [facility] CLIA [id number] [address] [place] [address] [place] Creatinine [Mass/Vol] 7.64 mg/dL High 0.73-1.22 [facility] Comment on above: Order Comment: Speci men Type: BLOOD SPECIMEN [facility] Address: [address] [place] [address] Performed By: #### 2 4321-2 #### [facility] CLIA [id number] [address] [place] [address] [place] Creatinine and Glomerular filtration rate.predicted panel (S/P/Bld)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 patient, pxry-et-eosn patient care, completing clinical documentation, obtaining and/or reviewing separately obtained history, performing a medically appropriate examination, counseling and educating the patient/family/caregive r, and ordering medications, tests, or procedures. SIGNATURE: Tatum Chowdhury APRN.SARA, PAPO PATIENT NAME: Lawson Doyle DATE: January 04, 2023 TIME: 8:19 AM PAGER: [facility] NURSING PROGon 01-04-2023 NURSING PROG HNO ID: [id number] Author: Ed Jade RN Service: Nursing Author [...] 1250 Discharged home with friend via wheelchair. [facility] OPERATIVE NOon 01-04-2023 OPERATIVE NO HNO ID: [id number] Author: Don Patel MD Service: Vascular Surgery Author Type: Physician Type: Operative Report Filed: 01/22/2023 11:17 AM Note Text: OPERATIVE/PROCEDURE REPORT LOG ID: [id number] Surgery/Procedure Date: 01/04/2023 Incision/Procedure Start Time:10:33 AM Incision Close/Procedure End Time: Surgeon(s)/Proceduralis t(s) and Compliance Officer(s): Surgeon(s) and Role: * Don Patel MD [...] details: The patient was taken to the equipment operator/laborer and laid supine on the table. After [...] The sheath was up-sized to a 7 belgian sheath. The stenosis was ballooned with a/an [...] DATE: 01/04/2023 TIME: 11:15 AM PAGER/CONTACT #: [phone] [facility] BLOOD TB SCREENon 12-22-2022 M. tuberculosis tuberculin stim IFN-g Ql (Bld) Negative [facility] Mitogen minus Nil >=0.50 IU/mL [facility] TB Gamma Interpretation Infection with M. tuberculosis complex is unlikely. If latent tuberculosis infection is highly suspected, a negative result does not rule out the infection. Specimens from immunocompromised patients and those <5 years of age may show false negative results. In case of a contact investigation, please repeat 8-12 weeks after a known exposure. [facility] TB Nil 0.02 IU/mL <=8.00 IU/mL [facility] TB1 Ag minus Nil 0.10 IU/mL <0.35 IU/mL [facility] TB2 Ag minus Nil 0.11 IU/mL <0.35 IU/mL [facility] ACTIVATED PTTon 12-21-2022 aPTT Coag (PPP) [Time] 27.5 s 23.0 - 32.4 sec [facility] CBC panel Auto (Bld)on 12-21 Erythrocyte distribution width (RBC) [Ratio] 13.1 % 11.5 - 15.0 % [facility] Hematocrit (Bld) [Volume fraction] 35.2 % Low 39.0 - 51.0 % [facility] Hemoglobin (Bld) [Mass/Vol] 11.7 g/dL Low 13.0 - 17.0 g/dL [facility] MCH (RBC) [Entitic mass] 32.2 pg 26.0 - 34.0 pg [facility] MCHC (RBC) [Mass/Vol] 33.2 g/dL 30.5 - 36.0 g/dL [facility] MCV (RBC) [Entitic vol] 97.0 fL 80.0 - 100.0 fL [facility] Nucleated RBC (Bld) [#/Vol] <0.01 k/uL [facility] Platelet mean volume (Bld) [Entitic vol] 9.9 fL 9.0 - 12.7 fL [facility] Platelets (Bld) [#/Vol] 285 10*3/uL 150 - 400 k/uL [facility] RBC (Bld) [#/Vol] 3.63 10*6/uL Low 4.20 - 6.0 0 m/uL [facility] WBC (Bld) [#/Vol] 9.34 10*3/uL 3.70 - 11. 00 k/uL [facility] CMV IGG ANTIBODY BLon 2022 CMV IgG Qn 0.28 U/mL [facility] CMV IgG Qnon 12-21-2022 CMV IgG Qualitative Negative Negative [facility] Comprehensive metabolic 2000 panelon 12-21-2022 Albumin [Mass/Vol] 4.8 g/dL 3.9 - 4.9 g/dL [facility] ALP [Catalytic activity/Vol] 86 U/L 38 - 113 U/L [facility] ALT [Catalytic activity/Vol] 15 U/L 10 - 54 U/L [facility] Anion gap [Moles/Vol] 14 mmol/L 9 - 18 mmol/L [facility] AST [Catalytic activity/Vol] 9 U/L Low 14 - 40 U/L [facility] Bilirubin [Mass/Vol] 0.5 mg/dL 0.2 - 1 .3 mg/dL [facility] Calcium [Mass/Vol] 9.5 mg/dL 8.5 - 10. 2 mg/dL [facility] Chloride [Moles/Vol] 94 mmol/L Low 97 - 10 5 mmol/L [facility] CO2 [Moles/Vol] 31 mmol/L High 22 - 30 mmol/L [facility] Creatinine [Mass/Vol] 8.39 mg/dL High 0.73 - 1.22 mg/dL [facility] Estimated Glomerular Filtration Rate 8 mL/min/1.73m Low >=60 mL/min/1.73m [facility] Glucose [Mass/Vol] 94 mg/dL 74 - 99 mg/dL [facility] Potassium [Moles/Vol] 4.5 mmol/L 3.7 - 5.1 mmol/L [facility] Protein [Mass/Vol] 7.3 g/dL 6.3 - 8.0 g/dL [facility] Sodium [Moles/Vol] 139 mmol/L 136 - 144 mmol/L [facility] Urea nitrogen [Mass/Vol] 31 mg/dL High 9 - 24 mg/dL [facility] EBV capsid IgG Qn (S)on EBV VCA IgG, Qual Positive Abnormal Negative [facility] HCV QUANT RNA BY PCRon 12-21 HCV RNA MIGUEL+probe Qn Not detected HCV RNA not detected by PCR. [facility] HIV 1+2 Ab IA Qlon 3 HIV 1 and 2 Ab IA.rapid Nom [facility] HIV 1+2 Ab+HIV1 p24 Ag IA Ql Non-Reactive Nonreactive [facility] HIV immunoassay testing algorithm interpretation (S/P/Bld) [Interp] [facility] Laboratory - Blood bankon ABO group Nom (Bld) A [facility] Rh Nom (Bld) Positive [facility] No Panel Informationon 12-21 [facility] PHOSPHORUS INORGANICon 12-21 Phosphate [Mass/Vol] 6.9 mg/dL High 2.7 - 4 .8 mg/dL [facility] PT panel Coag (PPP)on 2022 INR Coag (PPP) [Relative time] 1.0 {INR} 0.9 - 1.3 [facility] PT Coag (PPP) [Time] 10.4 s 9.7 - 1 3.0 sec [facility] PTH INTACT BLDon 12-21-2022 Parathyrin.intact [Mass/Vol] 479 pg/mL High 15 - 65 pg/mL [facility] RUBEOLA (MEASLES)IGGon 12-21 Measles Antibody, IGG Qualitative Equivocal Abnormal Positive [facility] Reagin and Treponema pallidu m IgG and IgM [Interp]on 12-21-2022 T. pallidum IgG+IgM IA Ql (S) Non-Reactive Nonreactive [facility] SYPHILIS TOTAL W/REFLEXon Reagin and Treponema pallidum IgG and IgM [Interp] Cannot exclude recent Treponemal infection if specimen collected within 7-10 days after appearance of suspect lesions or 2-3 weeks after an exposure. Clinical correlation is required. [facility] TYPE + SCREENon 12-21-2022 Blood group antibody screen Ql Negative [facility] HIstorical Ab Scr Status Negative [facility] Type and Screen Expiration 12/24/2022 23:59 [facility] VARICELLA ZOSTER IGGon 12-21 Varicella Zoster IgG, Qual Negative Abnormal Positive [facility] BRIEF OP NOTon 10-31-2022 BRIEF OP NOT HNO ID: [id number] Author: Ameya Cueto MD Service: Vascular Surgery Author Type: Resident Type: Brief Op Note Filed: 10/31/2022 3:38 PM Note Text: BRIEF OPERATIVE / PROCEDURE NOTE LOG ID: [id number] Surgery/Procedure Date: 10/31/2022 Incision/Procedure Start Time: 2:26 PM Incision Close/Procedure End Time: 2:49 PM Surgeon(s)/Proceduralis t(s) and Compliance Officer(s): Surgeon(s) and Role: * Don Patel MD [...] October 31, 2022 TIME: 3:36 PM Normal [facility] Basic metabolic 2000 panelon 10-31-2022 Anion gap [Moles/Vol] 11 mmol/L Normal 9-18 [facility] Comment on above: Order Comment: Speci men Type: BLOOD SPECIMENOrdering Facility: [facility] Address: [address] [place] [address] Performed By: #### 2 4321-2 ####[facility]ORATORYCLIA [id number] [place] [address] [place] Calcium [Mass/Vol] 9.5 mg/dL Normal 8.5-10.2 [facility] Comment on above: Order Comment: Speci men Type: BLOOD SPECIMENOrdering Facility: [facility] Address: [address] [place] [address] Performed By: #### 2 4321-2 ####[facility]ORATORYCLIA [id number] [place] [id number] [place] Chloride [Moles/Vol] 102 mmol/L Normal 97-105 [facility] Comment on above: Order Comment: Speci men Type: BLOOD SPECIMENOrdering Facility: [facility] Address: [address] [place] [address] Performed By: #### 2 4321-2 ####[facility]ATORYCLIA [id number] [place] [id number] [place] CO2 [Moles/Vol] 27 mmol/L Normal 22-30 [facility] Comment on above: Order Comment: Speci men Type: BLOOD SPECIMENOrdering Facility: [facility] Address: [address] [place] [address] Performed By: #### 2 4321-2 ####[facility]ATORYCLIA [id number] [place] [address] [place] Creatinine [Mass/Vol] 8.93 mg/dL High 0.73-1.22 [facility] Comment on above: Order Comment: Speci men Type: BLOOD SPECIMENOrdering Facility: [facility] Address: [address] [place] [address] Performed By: #### 2 4321-2 ####[facility]ATORYCLIA [id number] [address] [place] ESTIMATED GLOMERULAR FILTRATION RATE 8 mL/min/1.73m??? Low >=60 [facility] Comment on above: Order Comment: Speci men Type: BLOOD SPECIMENOrdering Facility: [facility] Address: [address] [place] [address] Result Comment: Gentry mated Glomerular Filtration Rate [...] actual GFR. Performed By: #### 2 4321-2 ####[facility]ATORYCLIA [id number] [place] [address] [place] Glucose [Mass/Vol] 85 mg/dL Normal 74-99 [facility] Comment on above: Order Comment: Speci men Type: BLOOD SPECIMENOrdering Facility: [facility] Address: [address] [place] [address] Result Comment: The [place] Diabetes Association (ADA) provides guidance for cutoff [...] Standards of Medical Care in Diabetes 2016, [place] Diabetes Association. Diabetes Care. 2016.39(Suppl 1). Performed By: #### 2 4321-2 ####[facility]ATORYCLIA [id number] [place] [address] [place] Potassium [Moles/Vol] 5.0 mmol/L Normal 3.7-5.1 [facility] Comment on above: Order Comment: Speci men Type: BLOOD SPECIMENOrdering Facility: [facility] Address: [address] [place] [address] Performed By: #### 2 4321-2 ####[facility]ATORYCLIA [id number] [place] [address] [place] Sodium [Moles/Vol] 140 mmol/L Normal 136-144 [facility] Comment on above: Order Comment: Speci men Type: BLOOD SPECIMENOrdering Facility: [facility] Address: [address] [place] [address] Performed By: #### 2 4321-2 ####[facility]ATORYCLIA [id number] [place] [address] [place] Urea nitrogen [Mass/Vol] 52 mg/dL High 9-24 [facility] Comment on above: Order Comment: Speci men Type: BLOOD SPECIMENOrdering Facility: [facility] Address: [address] [place] [address] Performed By: #### 2 4321-2 ####[facility]ATORYCLIA [id number] [place] [id number] [place] ECG COMPLETEon 10-31-2022 ECG COMPLETE Ventricular Rate : 8 1 BPM Atrial Rate : 82 BPM P-R Interval : 139 ms QRS Duration : 85 ms Q-T Interval : 362 ms QTC Calculation(Bazett) : 421 ms Calculated P Haywood : 55 degrees Calculated R Haywood : 50 degrees Calculated T Haywood : 20 degrees Sinus rhythm Normal ECG Confirmed by CHENCHO DENNEY MD ([id number]) on 11/01/2022 7:04:08 AM NAME : LAWSON DOYLE PID : [id number] : 2000 Gender : Male Race : ORD : [id number] Procedure Date : Oct 31 2022 13:16:45 Edit Date : Nov 01 2022 07:04:09 Diagnosis: Sinus rhythm Normal ECG Confirmed by CHENCHO DENNEY MD ([id number]) on 11/01/2022 7:04:08 AM Test Reason : Pre OP Location : 400 : FVEKG 214 Overread By : CHENCHO DENNEY MD Edited By : CHENCHO DENNEY MD Referred By : , Acquired by : [id number], Normal [facility] HISTORY PHYSICALon HISTORY PHYSICAL HNO ID: [id number] Author: Tatum Chowdhury APRN.WOOD MOLDER, DNP Service: Cardiovascular Medicine Author Type: Nurse [...] which included preparing to see the patient, mady-hy-zjpr patient care, completing clinical documentation, obtaining and/or reviewing separately obtained history, performing a medically appropriate examination, counseling and educating the patient/family/caregive r, and ordering medications, tests, or procedures. SIGNATURE: (more content not included)... Normal [facility] NURSING PROGon 10-31-2022 NURSING PROG HNO ID: [id number] Author: Swetha Santo Service: Nursing Author Type: ? Type: Nursing Progress Note Filed: 10/31/2022 3:49 PM Note Text: Nursing Progress Note Topic of Note: Daily Note PATIENT NAME: Lawsno Doyle Patient Location: [facility]/FV [facility] Room: [facility] ( INVASIVE CARDIOLOGY) 1531-Pt came back [...] This note was completed by: Swetha Santo [facility] NURSING PROG HNO ID: [id number] Author: Paul Peterson RN Service: Nursing Author Type: Registered Nurse Type: Nursing Progress Note Filed: 10/31/2022 1:25 PM Note Text: Nursing Progress Note Topic of Note: Daily Note PATIENT NAME: Lawson Doyle Patient Location: [facility]/ [facility] Room: [facility] (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 Consent on chart. BMP pending This note was completed by: Paul Peterson [facility] OPERATIVE NOon 10-31-2022 OPERATIVE NO HNO ID: [id number] Author: Don Patel MD Service: Vascular Surgery Author Type: Physician Type: Operative Report Filed: 11/09/2022 4:50 PM Note Text: OPERATIVE/PROCEDURE REPORT LOG ID: [id number] Surgery/Procedure Date: 10/31/2022 Incision/Procedure Start Time:2:26 PM Incision Close/Procedure End Time: 2:49 PM Surgeon(s)/Proceduralis t(s) and Compliance Officer(s): Surgeon(s) and Role: * Don Patel MD [...] details: The patient was taken to the equipment operator/laborer and laid supine on the table. After [...] The sheath was up-sized to a 6 belgian sheath. The stenosis was ballooned with a/an [...] DATE: 10/31/2022 TIME: 4:34 PM PAGER/CONTACT #: [phone] [facility] Basic metabolic 2000 panelon 04-20-2022 Anion gap [Moles/Vol] 5 mmol/L Low 9 - 18 mmol/L [facility] Calcium [Mass/Vol] 9.6 mg/dL 8.5 - 10. 2 mg/dL [facility] Chloride [Moles/Vol] 101 mmol/L 97 - 10 5 mmol/L [facility] CO2 [Moles/Vol] 36 mmol/L High 22 - 30 mmol/L [facility] Creatinine [Mass/Vol] 4.58 mg/dL High 0.73 - 1.22 mg/dL [facility] Estimated Glomerular Filtration Rate 17 mL/min/1.73m Low >=60 mL/min/1.73m [facility] Glucose [Mass/Vol] 93 mg/dL 74 - 99 mg/dL [facility] Potassium [Moles/Vol] 4.6 mmol/L 3.7 - 5.1 mmol/L [facility] Sodium [Moles/Vol] 142 mmol/L 136 - 144 mmol/L [facility] Urea nitrogen [Mass/Vol] 9 mg/dL 9 - 24 mg/dL [facility] Anion gap [Moles/Vol] 5 mmol/L Low 9-18 [facility] Comment on above: Order Comment: Speci men Type: BLOOD SPECIMEN [facility] Address: [address] [place], [place] [id number] Performed By: #### 2 4321-2 #### [facility] CLIA [id number] [address] [place] [address] [place] Calcium [Mass/Vol] 9.6 mg/dL Normal 8.5-10.2 [facility] Comment on above: Order Comment: Speci men Type: BLOOD SPECIMEN [facility] Address: [address] [place] [address] Performed By: #### 2 4321-2 #### [facility] CLIA [id number] [address] [place] [address] [place] Chloride [Moles/Vol] 101 mmol/L Normal 97-105 [facility] Comment on above: Order Comment: Speci men Type: BLOOD SPECIMEN [facility] Address: [address] [place] [address] Performed By: #### 2 4321-2 #### [facility] CLIA [id number] [address] [place], [place] [address] [place] CO2 [Moles/Vol] 36 mmol/L High 22-30 [facility] Comment on above: Order Comment: Speci men Type: BLOOD SPECIMEN [facility] Address: [address] [place] [address] Performed By: #### 2 4321-2 #### [facility] CLIA [id number] [address] [place], [place] [address] [place] Creatinine [Mass/Vol] 4.58 mg/dL High 0.73-1.22 [facility] Comment on above: Order Comment: Ez trinh Type: BLOOD SPECIMEN [facility] Address: [address] [id number] Performed By: #### 2 4321-2 #### [facility] CLIA [id number] [address] [place] [address] [place] ESTIMATED GLOMERULAR FILTRATION RATE 17 mL/min/1.73m??? Low >=60 [facility] Comment on above: Order Comment: Ez trinh Type: BLOOD SPECIMEN [facility] Address: [address] [place], [place] [phone] Result Comment: Gentry mated Glomerular Filtration Rate [...] GFR. Performed By: #### 2 4321-2 #### [facility] CLIA [id number] [address] [place] [address] [place] Glucose [Mass/Vol] 93 mg/dL Normal 74-99 [facility] Comment on above: Order Comment: Ez trinh Type: BLOOD SPECIMEN [facility] Address: [address] [place], [place] [phone] Result Comment: The [place] Diabetes Association (ADA) provides guidance for cutoff [...] Standards of Medical Care in Diabetes 2016, [employer]. Diabetes Care. 2016.39(Suppl 1). Performed By: #### 2 4321-2 #### [facility] CLIA [id number] [address] [place] [address] [place] Potassium [Moles/Vol] 4.6 mmol/L Normal 3.7-5.1 [facility] Comment on above: Order Comment: Speci men Type: BLOOD SPECIMEN Ordering Facility: [facility] Address: [address] [place] [address] Performed By: #### 2 4321-2 #### [facility] CLIA [id number] [address] [place] [address] [place] Sodium [Moles/Vol] 142 mmol/L Normal 136-144 [facility] Comment on above: Order Comment: Speci men Type: BLOOD SPECIMEN Ordering Facility: [facility] Address: [address] [place] [address] Performed By: #### 2 4321-2 #### [facility] IA [id number] [address] [place] [address] [place] Urea nitrogen [Mass/Vol] 9 mg/dL Normal 9-24 [facility] Comment on above: Order Comment: Speci men Type: BLOOD SPECIMEN Ordering Facility: [facility] Address: [address] [place] [address] Performed By: #### 2 4321-2 #### [facility] IA [id number] [address] [place] [address] [place] CBC W Auto Differential pane l (Bld)on 04-20-2022 Basophils (Bld) [#/Vol] 0.04 10*3/uL Normal <0.11 [facility] Comment on above: Order Comment: Speci men Type: BLOOD SPECIMEN Ordering Facility: [facility] Address: [address] [place] [address] Performed By: #### 5 7021-8 #### [facility] CLIA [id number] [address] [place] [address] [place] Basophils/100 WBC (Bld) 0.5 % Normal [facility] Comment on above: Order Comment: Speci men Type: BLOOD SPECIMEN Ordering Facility: [facility] Address: [address] [address] Performed By: #### 5 7021-8 #### [facility] CLIA [id number] [facility] [place] [address] [place] Differential cell count method Nom (Bld) Auto Normal [facility] Comment on above: Order Comment: Speci men Type: BLOOD SPECIMEN Ordering Facility: [facility] Address: [address] [address] Performed By: #### 5 7021-8 #### [facility] CLIA [id number] [facility] [place] [address] [place] Eosinophils (Bld) [#/Vol] 0.82 10*3/uL High <0.46 [facility] Comment on above: Order Comment: Speci men Type: BLOOD SPECIMEN Ordering Facility: [facility] Address: [address] Performed By: #### 5 7021-8 #### [facility] CLIA [id number] [address] [place] [address] [place] Eosinophils/100 WBC (Bld) 11.2 % [facility] Comment on above: Order Comment: Speci men Type: BLOOD SPECIMEN Ordering Facility: [facility] Address: [address] Performed By: #### 5 7021-8 #### [facility] CLIA [id number] [address] [place] [address] [place] Erythrocyte distribution width (RBC) [Ratio] 12.7 % Normal 11.5-15.0 [facility] Comment on above: Order Comment: Speci men Type: BLOOD SPECIMEN Ordering Facility: [facility] Address: [address] Performed By: #### 5 7021-8 #### [facility] CLIA [id number] [address] [place] [address] [place] Hematocrit (Bld) [Volume fraction] 34.8 % Low 39.0-51.0 [facility] Comment on above: Order Comment: Speci men Type: BLOOD SPECIMEN Ordering Facility: [facility] Address: [address] [place] [address] Performed By: #### 5 7021-8 #### [facility] IA [id number] [address] [place] [address] [place] Hemoglobin (Bld) [Mass/Vol] 11.2 g/dL Low 13.0-17.0 [facility] Comment on above: Order Comment: Speci men Type: BLOOD SPECIMEN Ordering Facility: [facility] Address: [address] [place] [address] Performed By: #### 5 7021-8 #### [facility] IA [id number] [address] [place] [address] [place] Immature granulocytes (Bld) [#/Vol] 10*3/uL Normal <0.10 [facility] Comment on above: Order Comment: Speci men Type: BLOOD SPECIMEN Ordering Facility: [facility] Address: [address] [place] [address] Performed By: #### 5 7021-8 #### [facility] IA [id number] [address] [place] [address] [place] Immature granulocytes/100 WBC (Bld) 0.3 % Normal [facility] Comment on above: Order Comment: Speci men Type: BLOOD SPECIMEN Ordering Facility: [facility] Address: [address] [place], [place] [address] Performed By: #### 5 7021-8 #### [facility] CLIA [id number] [address] [place] [address] [place] Lymphocytes (Bld) [#/Vol] 1.98 10*3/uL Normal 1.00-4.00 [facility] Comment on above: Order Comment: Speci men Type: BLOOD SPECIMEN Ordering Facility: [facility] Address: [address] [address] Performed By: #### 5 7021-8 #### [facility] CLIA [id number] [address] [place] [address] STATES [facility] Lymphocytes/100 WBC (Bld) 26.9 % Normal [facility] Comment on above: Order Comment: Speci men Type: BLOOD SPECIMEN Ordering Facility: [facility] Address: [address] Performed By: #### 5 7021-8 #### [facility] IA [id number] [address] [place] [address] [place] MCH (RBC) [Entitic mass] 30.1 pg Normal 26.0-34.0 [facility] Comment on above: Order Comment: Speci men Type: BLOOD SPECIMEN Ordering Facility: [facility] Address: [address] Performed By: #### 5 7021-8 #### [facility] IA [id number] [address] [place] [address] [place] MCHC (RBC) [Mass/Vol] 32.2 g/dL Normal 30.5-36.0 [facility] Comment on above: Order Comment: Speci men Type: BLOOD SPECIMEN Ordering Facility: [facility] Address: [address] Performed By: #### 5 7021-8 #### [facility] CLIA [id number] [address] [place] [address] [place] MCV (RBC) [Entitic vol] 93.5 fL Normal 80.0-100.0 [facility] Comment on above: Order Comment: Speci men Type: BLOOD SPECIMEN Ordering Facility: [facility] Address: [address] [place], [place] [address] Performed By: #### 5 7021-8 #### [facility] CLIA [id number] [address] [place] [address] [place] Monocytes (Bld) [#/Vol] 0.46 10*3/uL Normal <0.87 [facility] Comment on above: Order Comment: Speci men Type: BLOOD SPECIMEN Ordering Facility: [facility] Address: [address] Performed By: #### 5 7021-8 #### [facility] CLIA [id number] [address] [place] [address] [place] Monocytes/100 WBC (Bld) 6.3 % Normal [facility] Comment on above: Order Comment: Speci men Type: BLOOD SPECIMEN Ordering Facility: [facility] Address: [address] [address] Performed By: #### 5 7021-8 #### [facility] CLIA [id number] [address] [place] [address] [place] Neutrophils (Bld) [#/Vol] 4.03 10*3/uL Normal 1.45-7.50 [facility] Comment on above: Order Comment: Speci men Type: BLOOD SPECIMEN Ordering Facility: [facility] Address: [address] Performed By: #### 5 7021-8 #### [facility] CLIA [id number] [address] [place], [place] [address] [place] Neutrophils/100 WBC (Bld) 54.8 % Normal [facility] Comment on above: Order Comment: Speci men Type: BLOOD SPECIMEN Ordering Facility: [facility] Address: [address] Performed By: #### 5 7021-8 #### [facility] CLIA [id number] [address] [place], [place] [address] [place] Nucleated RBC (Bld) [#/Vol] 10*3/uL Normal <0.01 [facility] Comment on above: Order Comment: Speci men Type: BLOOD SPECIMEN Ordering Facility: [facility] Address: [place] [address] Performed By: #### 5 7021-8 #### [facility] CLIA [id number] [address] [place] [address] [place] Nucleated RBC/100 WBC (Bld) [Ratio] 0.0 /100 WBC Normal [facility] Comment on above: Order Comment: Speci men Type: BLOOD SPECIMEN Ordering Facility: [facility] Address: [place] [address] Performed By: #### 5 7021-8 #### [facility] CLIA [id number] [address] [place], [place] [address] [place] Platelet mean volume (Bld) [Entitic vol] 9.9 fL Normal 9.0-12.7 [facility] Comment on above: Order Comment: Speci men Type: BLOOD SPECIMEN Ordering Facility: [facility] Address: [place] [address] Performed By: #### 5 7021-8 #### [facility] IA [id number] [address] [place], [place] [address] [place] Platelets (Bld) [#/Vol] 267 10*3/uL Normal 150-400 [facility] Comment on above: Order Comment: Speci men Type: BLOOD SPECIMEN Ordering Facility: [facility] Address: [address] [id number] Performed By: #### 5 7021-8 #### [facility] CLIA [id number] [address] [place], [place] [address] [place] RBC (Bld) [#/Vol] 3.72 10*6/uL Low 4.20-6.00 [facility] Comment on above: Order Comment: Speci men Type: BLOOD SPECIMEN Ordering Facility: [facility] Address: [address] [place] [address] Performed By: #### 5 7021-8 #### [facility] CLIA [id number] [address] [place] [address] WBC (Bld) [#/Vol] 7.35 10*3/uL Normal 3.70-11.00 [facility] Comment on above: Order Comment: Speci men Type: BLOOD SPECIMEN Ordering Facility: [facility] Address: [place] [address] Performed By: #### 5 7021-8 #### [facility] CLIA [id number] [address] [place] [address] OF [facility] Basophils (Bld) [#/Vol] 0.04 10*3/uL <0.11 k/uL [facility] Basophils/100 WBC (Bld) 0.5 % [facility] Differential cell count method Nom (Bld) Auto [facility] Eosinophils (Bld) [#/Vol] 0.82 10*3/uL High <0.46 k/uL [facility] Eosinophils/100 WBC (Bld) 11.2 % [facility] Erythrocyte distribution width (RBC) [Ratio] 12.7 % 11.5 - 15.0 % [facility] Hematocrit (Bld) [Volume fraction] 34.8 % Low 39.0 - 51.0 % [facility] Hemoglobin (Bld) [Mass/Vol] 11.2 g/dL Low 13.0 - 17.0 g/dL [facility] Immature granulocytes (Bld) [#/Vol] <0.10 k/uL [facility] Immature granulocytes/100 WBC (Bld) 0.3 % [facility] Lymphocytes (Bld) [#/Vol] 1.98 10*3/uL 1.00 - 4.00 k/uL [facility] Lymphocytes/100 WBC (Bld) 26.9 % [facility] MCH (RBC) [Entitic mass] 30.1 pg 26.0 - 34.0 pg [facility] MCHC (RBC) [Mass/Vol] 32.2 g/dL 30.5 - 36.0 g/dL [facility] MCV (RBC) [Entitic vol] 93.5 fL [...] (Bld) [Ratio] 0.0 /100 WBC [facility] Platelet mean volume (Bld) [Entitic vol] 9.9 fL 9.0 - 12.7 fL [facility] Platelets (Bld) [#/Vol] 267 10*3/uL 150 - 400 k/uL [facility] RBC (Bld) [#/Vol] 3.72 10*6/uL Low 4.20 - 6.0 0 m/uL [facility] WBC (Bld) [#/Vol] 7.35 10*3/uL 3.70 - 11. 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 He [...] prior to dialysis. Phosphorus 4.1. -Discussed with psychologist social-working on getting outpatient HD set up, cannot be done until tomorrow due to the holiday. -Discussed with Dr. Grant-okay to [place] tomorrow after outpatient HD arrangements have been [...] now. Declining a laxative, he is on Princses-Colace at bedtime which was started due to [...] today. Objective Data: Objective Information: T PRBPMAPSpO2 [id number]/[id number]% Date/Time03/21 5:241/3 7:571/3 8:421/3 8:421/3 7:57 Range(36C [...] 1800 BIOLOGICALS: 1. Epoetin Trey (Non-ESRD) Injectable: 94257 unit(s) SubCutaneous Weekly CARDIOVASCULAR AGENTS: 1. Losartan: [...] panel. Please set up outpatient dialysis at [facility] which would be closest facility to where [...] prior to dialysis. Phosphorus 4.1. -Discussed with psychologist social-working on getting outpatient HD set up, cannot be done until tomorrow due to the holiday. -Discussed with Dr. Grant-okay to [place] tomorrow after outpatient HD arrangements have been [...] tx. Objective Data: Objective Information: T PRBPMAPSpO2 [id number]/481127 3% Date/Time03/20 13: 13: 12:5212 13:0703/20 13: [...] mg Oral Daily 1800 BIOLOGICALS: 1. Epoetin Trye (Non-ESRD) Injectable: 54256 unit(s) SubCutaneous Weekly CARDIOVASCULAR AGENTS: 1. Losartan: [...] panel. Please set up outpatient dialysis at [facility] which would be closest facility to where [...] Grant) Normal [facility] Discharge Planning [id number] 03-20-2022 Discharge Planning Note2 Discharge Planning: Anticipated Discharge [id number] Discharge Planning 03/20/22 1125 Social Work Note SW received referral to arrange for outpt HD treatments, pt is new HD. Nephrology note indicates that HD center of choice is [facility] on [facility]. SW attempted to meet with pt to confirm information and discuss treatment referral process, however, pt currently off the floor for dialysis treatment. SW started referral to [facility], will confirm information with pt and update referral as needed. will submit referral once information is confirmed with pt. MIKE Mejia, JOAN 03/20/22 1420 Social Work Note SW met with pt at bedside to confirm information for outpt dialysis referral. Pt confirms preferred dialysis center is [facility]. Pt states preferred time is morning, no preference as to which days. Pt states he will transport himself to and from dialysis. SW completed referral and submitted to [facility]. Will update pt with chair time once received. MIKE Mejia, UNEMPLOYMENT INSPECTOR Assessment: Discharge Planning Assessment [id number] Discharge Documentation: Code StatusCode Status order at time of discharge: Full Code Electronic Signatures: Michell Ramos (VIRTUALIZATION ARCHITECT) (Signed 20-Mar-2022 10:39) Authored: Discharge Planning, Assessment, Discharge Documentation Candice Bianchi) (Signed 20-Mar-2022 14:24) Authored: Discharge Planning Last Updated: 20-Mar-2022 14:24 by Candice Bianchi (WOODYARD OPERATOR) Normal [facility] RENAL FUNCTION PANELon 03-20 Albumin [Mass/Vol] 3.5 g/dL Normal 3.4 - 5.0 [facility] Comment on above: Performed By: #### U [facility] #### [address] [id number] Anion gap [Moles/Vol] 11 mmol/L Normal 10 - 20 [facility] Comment on above: Performed By: #### U [facility] #### [address] [id number] Calcium [Mass/Vol] 8.4 mg/dL Low 8.6 - 10.3 [facility] Comment on above: Performed By: #### U [facility] #### [address] [id number] Chloride [Moles/Vol] 104 mmol/L Normal 98 - 107 [facility] Comment on above: Performed By: #### [facility] #### [address] [id number] Creatinine [Mass/Vol] 6.74 mg/dL High 0.50 - 1.30 [facility] Comment on above: Performed By: #### U [facility] #### [address] [id number] GFR/1.73 sq M.predicted among non-blacks MDRD (S/P/Bld) [Vol rate/Area] 11 mL/min/{1.73_m2} Abnormal >90 [facility] Comment on above: Result Comment: CALC ULATIONS OF ESTIMATED GFR ARE PERFORMED USING THE 2020 CKD-EPI STUDY REFIT EQUATION WITHOUT THE RACE VARIABLE FOR THE IDMS-TRACEABLE CREATININE METHODS. https://jasn.asnjournals.org/content/early//ASN.169702 7158 Performed By: #### U [facility] #### [address] [id number] Glucose [Mass/Vol] 95 mg/dL Normal 74 - 99 [facility] Comment on above: Performed By: #### U [facility] #### [address] [id number] HCO3 (Bld) [Moles/Vol] 30 mmol/L Normal 21 - 32 [facility] Comment on above: Performed By: #### U [facility] #### [address] [id number] Phosphate [Mass/Vol] 4.1 mg/dL Normal 2.5 - 4.9 [facility] Comment on above: Result Comment: The performance characteristics of phosphorus testing in heparinized plasma have been validated by the individual laboratory site where testing is performed. Testing on heparinized plasma is not approved by the FDA; however, such approval is not necessary. Performed By: #### [facility] #### [address] [id number] Potassium [Moles/Vol] 4.3 mmol/L Normal 3.5 - 5.3 [facility] Comment on above: Performed By: #### U [facility] #### [address] [id number] Sodium [Moles/Vol] 141 mmol/L Normal 136 - 145 [facility] Comment on above: Performed By: #### U [facility] #### [address] [id number] Urea nitrogen [Mass/Vol] 31 mg/dL High 6 - 23 [facility] Comment on above: Performed By: #### U [facility] #### [address] [id number] CBCon 03-19-2022 Erythrocyte distribution width (RBC) [Ratio] 12.3 % Normal 11.5 - 14.5 [facility] Comment on above: Performed By: #### P [facility] #### [address] [id number] Hematocrit (Bld) [Volume fraction] 26.1 % Low 41.0 - 52.0 [facility] Comment on above: Performed By: #### P [facility] #### [address] [id number] Hemoglobin (Bld) [Mass/Vol] 8.7 g/dL Low 13.5 - 17.5 [facility] Comment on above: Performed By: #### P [facility] #### [address] [id number] MCHC (RBC) [Mass/Vol] 33.3 g/dL Normal 32.0 - 36.0 [facility] Comment on above: Performed By: #### P [facility] #### [address] [id number] MCV (RBC) [Entitic vol] 93 fL Normal 80 - 100 [facility] Comment on above: Performed By: #### P [facility] #### [address] [id number] Platelets (Bld) [#/Vol] 156 10*3/uL Normal 150 - 450 [facility] Comment on above: Performed By: #### P [facility] #### [address] [id number] RBC 2.82 x10E12/L Low 4.50 - 5.90 [facility] Comment on above: Performed By: #### P [facility] #### [address] [id number] WBC (Bld) [#/Vol] 4.6 10*3/uL Normal 4.4 - 11.3 [facility] Comment on above: Performed By: #### P [facility] #### [address] [id number] Daily Progress Note-General Internal Medicineon 03-19-2022 Daily [...] dialysis. *These notes are being done using [employer] voice recognition technology and may include unintended errors with respect to translation of words, typographical errors or grammar errors which may not have been identified prior to finalization of the chart note. Subjective Data: LAWSON DOYLE is a 22 year old Male who is Hospital Day # 4. See LEVELOCK for today above. Objective Data: Objective Information: T PRBPMAPSpO2 [id number]/31727 (more content not included)... Normal [facility] [...] fevers. Objective Data: Objective Information: T PRBPMAPSpO2 [id number] 6% Date/Time03/19 12:5203/19 12:5203/19 12:5203/19 12: 12: [...] 1800 BIOLOGICALS: 1. Epoetin Trey (Non-ESRD) Injectable: 57887 unit(s) SubCutaneous Weekly CARDIOVASCULAR AGENTS: 1. Losartan: [...] panel. Please set up outpatient dialysis at [facility] which would be closest facility to where he lives. next hd on sunday 2) hypertension - d/c clonidine and use losartan instead 3) anemia -we will give 20,000 units of Retacrit. Ferritin was slightly over 200 earlier this month 4) hyperphosphatemia -levels are normal Add renal vitamin Electronic (more content not included)... Normal [facility] Discharge [id number] Discharge Profile2 Discharge Orders: Anticipated Discharge Date: Anticipated Discharge [id number] DNAR: Code Status at Discharge: Full Code [...] on Protonix and Zofran. 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 He will follow-up with his nurse sane, Dr. Grant, as scheduled. Final diagnoses: 1. 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 Patients taking a Biotin dose of up to 5 mg/day should refrain from taking Biotin for 24 hours before sample collection. Providers may contact their local laboratory for further information. Performed By: #### U [facility] #### [address] [id number] Lab Specimen Source Normal [facility] Comment on above: Performed By: #### U ANKUSH #### [address] [id number] RENAL FUNCTION PANELon 03-19 Albumin [Mass/Vol] 3.4 g/dL Normal 3.4 - 5.0 [facility] Comment on above: Performed By: #### M G #### [address] [id number] Anion gap [Moles/Vol] 11 mmol/L Normal 10 - 20 [facility] Comment on above: Performed By: #### M G #### [address] [id number] Calcium [Mass/Vol] 8.3 mg/dL Low 8.6 - 10.3 [facility] Comment on above: Performed By: #### M G #### [address] [id number] Chloride [Moles/Vol] 104 mmol/L Normal 98 - 107 [facility] Comment on above: Performed By: #### M G #### [address] [id number] Creatinine [Mass/Vol] 5.61 mg/dL High 0.50 - 1.30 [facility] Comment on above: Performed By: #### M G #### [address] [id number] GFR/1.73 sq M.predicted among non-blacks MDRD (S/P/Bld) [Vol rate/Area] 14 mL/min/{1.73_m2} Abnormal >90 [facility] Comment on above: Result Comment: CALC ULATIONS OF ESTIMATED GFR ARE PERFORMED USING THE 2020 CKD-EPI STUDY REFIT EQUATION WITHOUT THE RACE VARIABLE FOR THE IDMS-TRACEABLE CREATININE METHODS. https://jasn.asnjournals.org/content//ASN.583942 7223 Performed By: #### M G #### [address] [id number] Glucose [Mass/Vol] 101 mg/dL High 74 - 99 [facility] Comment on above: Performed By: #### M G #### [address] [id number] HCO3 (Bld) [Moles/Vol] 29 mmol/L Normal 21 - 32 [facility] Comment on above: Performed By: #### M G #### [address] [id number] Phosphate [Mass/Vol] 4.3 mg/dL Normal 2.5 - 4.9 [facility] Comment on above: Result Comment: The performance characteristics of phosphorus testing in heparinized plasma have been validated by the individual laboratory site where testing is performed. Testing on heparinized plasma is not approved by the FDA; however, such approval is not necessary. Performed By: #### M G #### [address] [id number] Potassium [Moles/Vol] 4.5 mmol/L Normal 3.5 - 5.3 [facility] Comment on above: Performed By: #### M G #### [address] [id number] Sodium [Moles/Vol] 139 mmol/L Normal 136 - 145 [facility] Comment on above: Performed By: #### M G #### [address] [id number] Urea nitrogen [Mass/Vol] 31 mg/dL High 6 - 23 [facility] Comment on above: Performed By: #### M G #### [address] [id number] C-REACTIVE PROTEINon 12-31-2 022 C-REACTIVE PROTEIN 0.84 mg/dL Normal [facility] Comment on above: Result Comment: REF VALUE < 1.00 Performed By: #### T PS2 #### [address] [id number] CBCon 03-18-2022 Erythrocyte distribution width (RBC) [Ratio] 12.4 % Normal 11.5 - 14.5 [facility] Comment on above: Performed By: #### T PS2 #### [address] [id number] Hematocrit (Bld) [Volume fraction] 25.7 % Low 41.0 - 52.0 [facility] Comment on above: Performed By: #### T PS2 #### [address] [id number] Hemoglobin (Bld) [Mass/Vol] 8.5 g/dL Low 13.5 - 17.5 [facility] Comment on above: Performed By: #### T PS2 #### [address] [id number] MCHC (RBC) [Mass/Vol] 33.1 g/dL Normal 32.0 - 36.0 [facility] Comment on above: Performed By: #### T PS2 #### [address] [id number] MCV (RBC) [Entitic vol] 93 fL Normal 80 - 100 [facility] Comment on above: Performed By: #### T PS2 #### [address] [id number] Platelets (Bld) [#/Vol] 149 10*3/uL Low 150 - 450 [facility] Comment on above: Performed By: #### T PS2 #### [address] [id number] RBC 2.77 x10E12/L Low 4.50 - 5.90 [facility] Comment on above: Performed By: #### T PS2 #### [address] [id number] WBC (Bld) [#/Vol] 3.4 10*3/uL Low 4.4 - 11.3 [facility] Comment on above: Performed By: #### T PS2 #### [facility] [address] [place], [place] [id number] CT CHEST ABDOMEN PELVIS W IV CONTRASTon [...] CT abdomen and pelvis 03/04/2022. ACCESSION NUMBER(S): [id number] ORDERING CLINICIAN: KAREEN AGEE TECHNIQUE: Axial CT [...] dialysis. *These notes are being done using [employer] voice recognition technology and may include unintended errors with respect to translation of words, typographical errors or grammar errors which may not have been identified prior to finalization of the chart note. Subjective Data: LAWSON DOYLE is a 22 year old Male who is Hospital Day # 3. See LEVELOCK for today above. Objective Data: Objective Information: T PRBPMAPSpO2 [id number]/956484 5% Date/Time03/18 10: 11: 10: 11: 8: [...] now. Objective Data: Objective Information: T PRBPMAPSpO2 [id number]% Date/Time03/18 13: 13: 13: 13: 8: 13:08 [...] 1800 BIOLOGICALS: 1. Epoetin Trey (Non-ESRD) Injectable: 79557 unit(s) SubCutaneous Weekly CARDIOVASCULAR AGENTS: 1. cloNIDine [...] panel. Please set up outpatient dialysis at [facility] which would be closest facility to where [...] [Mass/Vol] 132 mg/dL High 74 - 99 [facility] Comment on above: Performed By: #### G APC1 #### [address] [id number] IRON + TIBCon 03-18-2022 % SATURATION 17 % Low 25 - 45 [facility] Comment on above: Performed By: #### P TINR #### [facility] [address] [place], [place] [id number] TIBC 255 ug/dL Normal 240 - 445 [facility] Comment on above: Performed By: #### P TINR #### [facility] [address] [place], [place] [id number] Iron [Mass/Vol] 43 ug/dL Normal 35 - 150 [facility] Comment on above: Performed By: #### P TINR #### [facility] [address] [place], [place] [phone] PROCALCITONINon 03-18-2022 PROCALCITONIN 0.23 ng/mL Abnormal <=0.07 [...] evaluated. Performed By: #### P TINR #### [address] [id number] RENAL FUNCTION PANELon 03-18 Albumin [Mass/Vol] 3.8 g/dL Normal 3.4 - 5.0 [facility] Comment on above: Performed By: #### U ANKUSH #### [address] [id number] Anion gap [Moles/Vol] 13 mmol/L Normal 10 - 20 [facility] Comment on above: Performed By: #### U ANKUSH #### [address] [id number] Calcium [Mass/Vol] 8.6 mg/dL Normal 8.6 - 10.3 [facility] Comment on above: Performed By: #### U ANKUSH #### [address] [id number] Chloride [Moles/Vol] 106 mmol/L Normal 98 - 107 [facility] Comment on above: Performed By: #### U ANKUSH #### [address] [id number] Creatinine [Mass/Vol] 7.22 mg/dL High 0.50 - 1.30 [facility] Comment on above: Performed By: #### U ANKUSH #### [address] [id number] GFR/1.73 sq M.predicted among non-blacks MDRD (S/P/Bld) [Vol rate/Area] 10 mL/min/{1.73_m2} Abnormal >90 [facility] Comment on above: Result Comment: CALC ULATIONS OF ESTIMATED GFR ARE PERFORMED USING THE 2020 CKD-EPI STUDY REFIT EQUATION WITHOUT THE RACE VARIABLE FOR THE IDMS-TRACEABLE CREATININE METHODS. https://jasn.asnjournals.org/content///ASN.862575 2890 Performed By: #### U ANKUSH #### [address] [id number] Glucose [Mass/Vol] 113 mg/dL High 74 - 99 [facility] Comment on above: Performed By: #### U ANKUSH #### [address] [id number] HCO3 (Bld) [Moles/Vol] 25 mmol/L Normal 21 - 32 [facility] Comment on above: Performed By: #### U ANKUSH #### [address] [id number] Phosphate [Mass/Vol] 4.8 mg/dL Normal 2.5 - 4.9 [facility] Comment on above: Result Comment: The performance characteristics of phosphorus testing in heparinized plasma have been validated by the individual laboratory site where testing is performed. Testing on heparinized plasma is not approved by the FDA; however, such approval is not necessary. Performed By: #### U ANKUSH #### [address] [id number] Potassium [Moles/Vol] 5.2 mmol/L Normal 3.5 - 5.3 [facility] Comment on above: Performed By: #### U ANKUSH #### [address] [id number] Sodium [Moles/Vol] 139 mmol/L Normal 136 - 145 [facility] Comment on above: Performed By: #### U ANKUSH #### [address] [id number] Urea nitrogen [Mass/Vol] 58 mg/dL High 6 - 23 [facility] Comment on above: Performed By: #### U ANKUSH #### [address] [id number] SEDIMENTATION RATE, ERYTHROC YTEon 03-18-2022 SEDIMENTATION RATE, ERYTHROCYTE 43 mm/h High 0 - 15 [facility] Comment on above: Result Comment: Toni brown note new reference ranges as of 07/25/2021. Ran on alternate instrument Reference Ranges: Males: 0-15 Females: 0-20 Children under 18: 0-10 Performed By: #### U ANKUSH #### [address] [id number] BLOOD CULTURE, BACTERIALon 1 BLOOD CULTURE, BACTERIAL PATIENT: LAWSON DOYLE LOCATION: [address]#: [id number] : 89 AGE: SEX: M ORDERED BY: [...] above: Performed By: #### U ANKUSH #### [address] [id number] BLOOD CULTURE, BACTERIAL PATIENT: LAWSON DOYLE [facility] [id number] : 89 AGE: SEX: M ORDERED BY: [...] above: Performed By: #### U ANKUSH #### [address] [id number] CBCon 03-17-2022 Erythrocyte distribution width (RBC) [Ratio] 12.6 % Normal 11.5 - 14.5 [facility] Comment on above: Performed By: #### U ANKUSH #### [address] [id number] Hematocrit (Bld) [Volume fraction] 24.7 % Low 41.0 - 52.0 [facility] Comment on above: Performed By: #### U ANKUSH #### [address] [id number] Hemoglobin (Bld) [Mass/Vol] 8.0 g/dL Low 13.5 - 17.5 [facility] Comment on above: Performed By: #### U ANKUSH #### [address] [id number] MCHC (RBC) [Mass/Vol] 32.4 g/dL Normal 32.0 - 36.0 [facility] Comment on above: Performed By: #### U ANKUSH #### [address] [id number] MCV (RBC) [Entitic vol] 94 fL Normal 80 - 100 [facility] Comment on above: Performed By: #### U ANKUSH #### [address] [id number] Platelets (Bld) [#/Vol] 135 10*3/uL Low 150 - 450 [facility] Comment on above: Performed By: #### U ANKUSH #### [address] [id number] RBC 2.64 x10E12/L Low 4.50 - 5.90 [facility] Comment on above: Performed By: #### U ANKUSH #### [address] [id number] WBC (Bld) [#/Vol] 4.5 10*3/uL Normal 4.4 - 11.3 [facility] Comment on above: Performed By: #### U ANKUSH #### [address] [id number] Consult-Nephrologyon 022 Consult-Nephrology Service: Service: Nephrology Consult: [...] Known Allergies: Objective: Objective Information: T PRBPMAPSpO2 Value38.50754462/583975 8% Date/Time03/17 5: 5: 19: 5: 5: [...] Indica (more content not included)... Normal [facility] Daily Progress Note-General Internal Medicineon [...] dialysis. *These notes are being done using [employer] voice recognition technology and may include unintended errors with respect to translation of words, typographical errors or grammar errors which may not have been identified prior to finalization of the chart note. Subjective Data: LAWSON DOYLE is a 22 year old Male who is Hospital Day # 2. See LEVELOCK for today above. Objective Data: Objective Information: T PRBPMAPSpO2 Value38.67279546/466123 8% Date/Time03/17 5: 5: 19: 5: 5: 5:34 Range(36.5C - 38.7C ) (89 - 102 ) (18 - 20 ) (140 - 152 )/ (70 - 84 ) (103 - 108 ) (96% - 99% ) Highest temp of 38.7 C was recorded at 03/16 19:45 Pain reported at 03/16 21:18: 3 = Mild T PRBPMAPSpO2 Value38.38253095/040550 5% Date/Time03/17 10: 10: 19: 10: 10: [...] At Bedtime 5. Epoetin Trey (Non-ESRD) Injectable: 05286 unit(s) SubCutaneous Weekly 6. Lidocaine 4% TransDermal: [...] Reference Range: STRAW,YELLOW Appearance, Urine HAZY Specific Carpenter, Urine 1.011 pH, Urine 5.0 Protein, Urine [...] new ESRD . COMPARISON: None. ACCESSION NUMBER(S): [id number] ORDERING CLINICIAN: DARRYN GRANT TECHNIQUE: TUNNELLED DIALYSIS [...] caps and surgical masks. In addition, the stuffing machine operator and group fitness assistant department head donned sterile gowns and gloves after proper [...] [Mass/Vol] 3.4 g/dL Normal 3.4 - 5.0 [facility] Comment on above: Performed By: #### P TINR #### [address] [id number] Anion gap [Moles/Vol] 13 mmol/L Normal 10 - 20 [facility] Comment on above: Performed By: #### P TINR #### [address] [id number] Calcium [Mass/Vol] 8.4 mg/dL Low 8.6 - 10.3 [facility] Comment on above: Performed By: #### P TINR #### [address] [id number] Chloride [Moles/Vol] 106 mmol/L Normal 98 - 107 [facility] Comment on above: Performed By: #### P TINR #### [address] [id number] Creatinine [Mass/Vol] 7.54 mg/dL High 0.50 - 1.30 [facility] Comment on above: Performed By: #### P TINR #### [address] [id number] GFR/1.73 sq M.predicted among non-blacks MDRD (S/P/Bld) [Vol rate/Area] 10 mL/min/{1.73_m2} Abnormal >90 [facility] Comment on above: Result Comment: CALC ULATIONS OF ESTIMATED GFR ARE PERFORMED USING THE 2020 CKD-EPI STUDY REFIT EQUATION WITHOUT THE RACE VARIABLE FOR THE IDMS-TRACEABLE CREATININE METHODS. https://jasn.asnjournals.org/content//ASN.718838 7049 Performed By: #### P TINR #### [address] [id number] Glucose [Mass/Vol] 98 mg/dL Normal 74 - 99 [facility] Comment on above: Performed By: #### P TINR #### [address] [id number] HCO3 (Bld) [Moles/Vol] 23 mmol/L Normal 21 - 32 [facility] Comment on above: Performed By: #### P TINR #### [address] [id number] Phosphate [Mass/Vol] 5.1 mg/dL High 2.5 - 4.9 [facility] Comment on above: Result Comment: The performance characteristics of phosphorus testing in heparinized plasma have been validated by the individual laboratory site where testing is performed. Testing on heparinized plasma is not approved by the FDA; however, such approval is not necessary. Performed By: #### P TINR #### [address] [id number] Potassium [Moles/Vol] 4.9 mmol/L Normal 3.5 - 5.3 [facility] Comment on above: Performed By: #### P TINR #### [address] [id number] Sodium [Moles/Vol] 137 mmol/L Normal 136 - 145 [facility] Comment on above: Performed By: #### P TINR #### [address] [id number] Urea nitrogen [Mass/Vol] 62 mg/dL High 6 - 23 [facility] Comment on above: Performed By: #### P TINR #### [address] [id number] Admission Risk Screen - Adul ton 03-16-2022 [...] AlertFor Ebola-like Symptoms: Isolate Patient and Notify Provider/Leach Cell Operator For Contact: Notify Provider/Leach Cell Operator Advance Directive: Advance Directive/DNRno (2) Advance Directive [...] Learning Preferencesskill demonstration Cultural Considerationsnone Developmental Considerationsnone Rastafari Considerationsnone Learning Assessment (Other Learner): Other learner availableno Depression Screen: During the past month, have you often been bothered by feeling down, depressed or hopelessno During the past month, have you often had little interest or pleasure in doing thingsno Have you had any thoughts of harming anyone elseno (1) [place] Suicide: Risk Screen Not Applicable/Able to Answerable to be screened In the Past Month: Have you wished you were or could go to sleep and not wake upno(1) In the Past Month: Have you had any actual thoughts of killing yourself no(1) Lifetime: Have you ever done, started to do, or prepared to do anything to end your lifeno [place] Suicide Risknegative Adult Nutrition Screen: Have you [...] Spiritual Screen: Are there any cultural, spiritual, mandaeism practices/values/needs that are important for us to [...] (cells/L). Performed By: #### G APC1 #### [address] [id number] Basophils (Bld) [#/Vol] 0.02 10*3/uL Normal 0.00 - 0.10 [facility] Comment on above: Performed By: #### G APC1 #### [address] [id number] Basophils/100 WBC (Bld) 0.3 % Normal 0.0 - 2.0 [facility] Comment on above: Performed By: #### G APC1 #### [address] [id number] Eosinophils (Bld) [#/Vol] 0.17 10*3/uL Normal 0.00 - 0.70 [facility] Comment on above: Performed By: #### G APC1 #### [address] [id number] Eosinophils/100 WBC (Bld) 2.5 % Normal 0.0 - 6.0 [facility] Comment on above: Performed By: #### G APC1 #### [address] [id number] Erythrocyte distribution width (RBC) [Ratio] 15.3 % High 11.5 - 14.5 [facility] Comment on above: Performed By: #### G APC1 #### [address] [id number] Hematocrit (Bld) [Volume fraction] 27.2 % Low 41.0 - 52.0 [facility] Comment on above: Performed By: #### G APC1 #### [address] [id number] Hemoglobin (Bld) [Mass/Vol] 8.8 g/dL Low 13.5 - 17.5 [facility] Comment on above: Performed By: #### G APC1 #### [address] [id number] Lymphocytes (Bld) [#/Vol] 0.26 10*3/uL Low 1.20 - 4.80 [facility] Comment on above: Performed By: #### G APC1 #### [address] [id number] Lymphocytes/100 WBC (Bld) 3.8 % Normal 13.0 - 44.0 [facility] Comment on above: Performed By: #### G APC1 #### [address] [id number] MCHC (RBC) [Mass/Vol] 32.4 g/dL Normal 32.0 - 36.0 [facility] Comment on above: Performed By: #### G APC1 #### [address] [id number] MCV (RBC) [Entitic vol] 96 fL Normal 80 - 100 [facility] Comment on above: Performed By: #### G APC1 #### [address] [id number] Monocytes (Bld) [#/Vol] 0.63 10*3/uL Normal 0.10 - 1.00 [facility] Comment on above: Performed By: #### G APC1 #### [address] [id number] Monocytes/100 WBC (Bld) 9.2 % Normal 2.0 - 10.0 [facility] Comment on above: Performed By: #### G APC1 #### [address] [id number] Neutrophils (Bld) [#/Vol] 5.74 10*3/uL Normal 1.20 - 7.70 [facility] Comment on above: Performed By: #### G APC1 #### [address] [id number] Neutrophils/100 WBC (Bld) 83.9 % Normal 40.0 - 80.0 [facility] Comment on above: Performed By: #### G APC1 #### [address] [id number] Platelets (Bld) [#/Vol] 195 10*3/uL Normal 150 - 450 [facility] Comment on above: Performed By: #### G APC1 #### [address] [id number] RBC 2.83 x10E12/L Low 4.50 - 5.90 [facility] Comment on above: Performed By: #### G APC1 #### [address] [id number] WBC (Bld) [#/Vol] 6.8 10*3/uL Normal 4.4 - 11.3 [facility] Comment on above: Performed By: #### G APC1 #### [address] [id number] COMPREHENSIVE PANELon 2021 Albumin [Mass/Vol] 4.1 g/dL Normal 3.4 - 5.0 [facility] Comment on above: Performed By: #### T PS2 #### [address] [id number] ALP [Catalytic activity/Vol] 60 U/L Normal 33 - 120 [facility] Comment on above: Performed By: #### T PS2 #### [address] [id number] ALT [Catalytic activity/Vol] 12 U/L Normal 10 - 52 [facility] Comment on above: Result Comment: Lalita ents treated with Sulfasalazine may generate falsely decreased results for ALT. Performed By: #### T PS2 #### [address] [id number] Anion gap [Moles/Vol] 20 mmol/L Normal 10 - 20 [facility] Comment on above: Performed By: #### T PS2 #### [address] [id number] AST [Catalytic activity/Vol] 17 U/L Normal 9 - 39 [facility] Comment on above: Performed By: #### T PS2 #### [address] [id number] Bilirubin [Mass/Vol] 0.4 mg/dL Normal 0.0 - 1.2 [facility] Comment on above: Performed By: #### T PS2 #### [address] [id number] Calcium [Mass/Vol] 8.8 mg/dL Normal 8.6 - 10.3 [facility] Comment on above: Performed By: #### T PS2 #### [address] [id number] Chloride [Moles/Vol] 104 mmol/L Normal 98 - 107 [facility] Comment on above: Performed By: #### T PS2 #### [address] [id number] Creatinine [Mass/Vol] 7.25 mg/dL High 0.50 - 1.30 [facility] Comment on above: Performed By: #### T PS2 #### [address] [id number] GFR/1.73 sq M.predicted among non-blacks MDRD (S/P/Bld) [Vol rate/Area] 10 mL/min/{1.73_m2} Abnormal >90 [facility] Comment on above: Result Comment: CALC ULATIONS OF ESTIMATED GFR ARE PERFORMED USING THE 2020 CKD-EPI STUDY REFIT EQUATION WITHOUT THE RACE VARIABLE FOR THE IDMS-TRACEABLE CREATININE METHODS. https://jasn.asnjournals.org/content/early//ASN.239939 4809 Performed By: #### T PS2 #### [address] [id number] Glucose [Mass/Vol] 89 mg/dL Normal 74 - 99 [facility] Comment on above: Performed By: #### T PS2 #### [address] [id number] HCO3 (Bld) [Moles/Vol] 18 mmol/L Low 21 - 32 [facility] Comment on above: Performed By: #### T PS2 #### [address] [id number] Potassium [Moles/Vol] 4.8 mmol/L Normal 3.5 - 5.3 [facility] Comment on above: Performed By: #### T PS2 #### [address] [id number] Protein [Mass/Vol] 6.7 g/dL Normal 6.4 - 8.2 [facility] Comment on above: Performed By: #### T PS2 #### [address] [id number] Sodium [Moles/Vol] 137 mmol/L Normal 136 - 145 [facility] Comment on above: Performed By: #### T PS2 #### [address] [id number] Urea nitrogen [Mass/Vol] 68 mg/dL High 6 - 23 [facility] Comment on above: Performed By: #### T PS2 #### [address] [id number] ALBUMIN Canceled Normal [facility] Comment on above: Order Comment: TEST COMPREHENSIVE PANEL WAS CANCELLED, 03/16/2022 11:18 Grossly hemolyzedNotified Darlyn W that specimen will be recollected. Performed By: #### T PS2 #### [address] [id number] ALKALINE PHOSPHATASE Canceled Normal [facility] Comment on above: Order Comment: TEST COMPREHENSIVE PANEL WAS CANCELLED, 03/16/2022 11:18 Grossly hemolyzedNotified Darlyn W that specimen will be recollected. Performed By: #### T PS2 #### [address] [id number] ALT Canceled Normal [facility] Comment on above: Order Comment: TEST COMPREHENSIVE PANEL WAS CANCELLED, 03/16/2022 11:18 Grossly hemolyzedNotified Darlyn W that specimen will be recollected. Result Comment: Lalita ents treated with Sulfasalazine may generate falsely decreased results for ALT. Performed By: #### T PS2 #### [address], [place] [id number] ANION GAP Canceled Normal [facility] Comment on above: Order Comment: TEST COMPREHENSIVE PANEL WAS CANCELLED, 03/16/2022 11:18 Grossly hemolyzedNotified Darlyn W that specimen will be recollected. Performed By: #### T PS2 #### [address], [place] [id number] AST Canceled Normal [facility] Comment on above: Order Comment: TEST COMPREHENSIVE PANEL WAS CANCELLED, 03/16/2022 11:18 Grossly hemolyzedNotified Darlyn W that specimen will be recollected. Performed By: #### T PS2 #### [address], [place] [id number] BICARBONATE Canceled Normal [facility] Comment on above: Order Comment: TEST COMPREHENSIVE PANEL WAS CANCELLED, 03/16/2022 11:18 Grossly hemolyzedNotified Darlyn W that specimen will be recollected. Performed By: #### T PS2 #### [address], [place] [id number] BILIRUBIN,TOTAL Canceled Normal [facility] Comment on above: Order Comment: TEST COMPREHENSIVE PANEL WAS CANCELLED, 03/16/2022 11:18 Grossly hemolyzedNotified Darlyn W that specimen will be recollected. Performed By: #### T PS2 #### [address], [place] [id number] CALCIUM Canceled Normal [facility] Comment on above: Order Comment: TEST COMPREHENSIVE PANEL WAS CANCELLED, 03/16/2022 11:18 Grossly hemolyzedNotified Darlyn W that specimen will be recollected. Performed By: #### T PS2 #### [address] [id number] CHLORIDE Canceled Normal [facility] Comment on above: Order Comment: TEST COMPREHENSIVE PANEL WAS CANCELLED, 03/16/2022 11:18 Grossly hemolyzedNotified Darlyn W that specimen will be recollected. Performed By: #### T PS2 #### [address] [id number] CREATININE Canceled Normal [facility] Comment on above: Order Comment: TEST COMPREHENSIVE PANEL WAS CANCELLED, 03/16/2022 11:18 Grossly hemolyzedNotified Darlyn W that specimen will be recollected. Performed By: #### T PS2 #### [address] [id number] eGFR FEMALE Canceled Normal [facility] Comment on above: Order Comment: TEST COMPREHENSIVE PANEL WAS CANCELLED, 03/16/2022 11:18 Grossly hemolyzedNotified Darlyn W that specimen will be recollected. Result Comment: CALC ULATIONS OF ESTIMATED GFR ARE PERFORMED USING THE 2020 CKD-EPI STUDY REFIT EQUATION WITHOUT THE RACE VARIABLE FOR THE IDMS-TRACEABLE CREATININE METHODS. https://jasn.asnjournals.org/content/early/ASN.729686 6456 Performed By: #### T PS2 #### [address] [id number] eGFR MALE Canceled Normal [facility] Comment on above: Order Comment: TEST COMPREHENSIVE PANEL WAS CANCELLED, 03/16/2022 11:18 Grossly hemolyzedNotified Darlyn W that specimen will be recollected. Result Comment: CALC ULATIONS OF ESTIMATED GFR ARE PERFORMED USING THE 2020 CKD-EPI STUDY REFIT EQUATION WITHOUT THE RACE VARIABLE FOR THE IDMS-TRACEABLE CREATININE METHODS. https://jasn.asnjournals.org/content/early/ASN.493202 1131 Performed By: #### T PS2 #### [address] [id number] GLUCOSE Canceled Normal [facility] Comment on above: Order Comment: TEST COMPREHENSIVE PANEL WAS CANCELLED, 03/16/2022 11:18 Grossly hemolyzedNotified Darlyn W that specimen will be recollected. Performed By: #### T PS2 #### [address] [id number] POTASSIUM Canceled Normal [facility] Comment on above: Order Comment: TEST COMPREHENSIVE PANEL WAS CANCELLED, 03/16/2022 11:18 Grossly hemolyzedNotified Darlyn W that specimen will be recollected. Performed By: #### T PS2 #### [address] [id number] SODIUM Canceled Normal [facility] Comment on above: Order Comment: TEST COMPREHENSIVE PANEL WAS CANCELLED, 03/16/2022 11:18 Grossly hemolyzedNotified Darlyn W that specimen will be recollected. Performed By: #### T PS2 #### [address] [id number] TOTAL PROTEIN Canceled Normal [facility] Comment on above: Order Comment: TEST COMPREHENSIVE PANEL WAS CANCELLED, 03/16/2022 11:18 Grossly hemolyzedNotified Darlyn W that specimen will be recollected. Performed By: #### T PS2 #### [address] [id number] UREA NITROGEN Canceled Normal [facility] Comment on above: Order Comment: TEST COMPREHENSIVE PANEL WAS CANCELLED, 03/16/2022 11:18 Grossly hemolyzedNotified Darlyn W that specimen will be recollected. Performed By: #### T PS2 #### [address] [id number] Covid 19 Resultson 2 SARS-CoV-2 (COVID-19) RNA [...] You may also be contacted by the [facility] to see if any of your [...] or Naproxen (Aleve) can also be used. Pvbi-zmd-ywqzgzq cough and cold medicines can be used according to the instructions on the package. Some kyfk-xpn-nrmokml medicines also contain acetaminophen. Make sure you [...] water are not available, use alcohol-based hand promotion officer. Avoid touching your eyes, nose, and mouth [...] A, PCR Not detected Normal Not Detected [facility] Comment on above: Result Comment: Resp iratory virus testing is performed routinely by PCR for Influenza A/B and RSV. Not Detected results do not preclude Influenza A/B or RSV infections since the adequacy of sample collection or low viral burden may impact the clinical sensitivity of this test method. Performed By: #### G APC1 #### [address] [id number] INFLUENZA B, PCR Not detected Normal Not Detected [facility] Comment on above: Result Comment: Resp iratory virus testing is performed routinely by PCR for Influenza A/B and RSV. Not Detected results do not preclude Influenza A/B or RSV infections since the adequacy of sample collection or low viral burden may impact the clinical sensitivity of this test method. Performed By: #### G APC1 #### [address] [id number] SARS-CoV-2 (COVID-19) RNA MIGUEL+probe Ql (Unsp spec) Not detected Normal Not Detected [facility] Comment on above: Result Comment: . This test has received [facility] Emergency Use Authorization (EUA) and has been verified by [facility]. This test is only authorized for the duration of time that circumstances exist to justify the authorization of the emergency use of in vitro diagnostic tests for the detection of SARS-CoV-2 virus and/or diagnosis of COVID-19 infection under section 564(b)(1) of the Act, 21 U.S.C. 360bbb-3(b)(1), unless the authorization is terminated or revoked sooner. [facility] is certified under CLIA-88 as qualified to perform high complexity testing. Testing is performed in the [facility] laboratory located at [address] [place], [place] [address]. SARS-CoV-2/Flu/RSV Multiplex Test: Fact sheet for providers: https://www.fda.gov/media/124590/download Fact sheet for patients: https://www.fda.gov/media/850157/download Performed By: #### G APC1 #### [address] [id number] Lab Specimen Source Nasal, Nasopharyngeal Normal [facility] Comment on above: Performed By: #### G APC1 #### [address] [id number] LACTATEon 03-16-2022 Lactate [Moles/Vol] 0.7 mmol/L Normal 0.4 - 2.0 [facility] Comment on above: Result Comment: Shelbie puncture immediately after or during the administration of Metamizole may lead to falsely low results. Testing should be performed immediately prior to Metamizole dosing. Performed By: #### T PS2 #### [address] [id number] LACTATE Canceled Normal [facility] Comment on above: Order Comment: TEST LACTATE WAS CANCELLED, 03/16/2022 11:19 Grossly hemolyzedNotified Darlyn W that specimen will be recollected. Result Comment: Shelbie puncture immediately after or during the administration of Metamizole may lead to falsely low results. Testing should be performed immediately prior to Metamizole dosing. Performed By: #### M G #### [address] [id number] LIPASEon 03-16-2022 Lipase [Catalytic activity/Vol] 69 U/L Normal 9 - 82 [facility] Comment on above: Result Comment: Shelbie puncture immediately after or during the administration of Metamizole may lead to falsely low results. Testing should be performed immediately prior to Metamizole dosing. Z-clwvge-t-benzoquinone imine (metabolite of Acetaminophen) will generate erroneously low results in samples for patients that have taken toxic doses of acetaminophen. Performed By: #### G APC1 #### [address] [id number] LIPASE Canceled Normal [facility] Comment on above: Order Comment: TEST RENAL FUNCTION PANEL WAS CANCELLED, 02/21/2022 06:55 CMP and PHOS on other order. Result Comment: Shelbie puncture immediately after or during the administration of Metamizole may lead to falsely low results. Testing should be performed immediately prior to Metamizole dosing. Performed By: #### R ENAL #### [address] [id number] Order Reconciliationon 03-16 Order Reconciliation Page 1 [...] oral tablet 1 tab(s) orally once a [id number] amLODIPine (NORVASC) TabletDOSE = 5 mg Oral DailyamLODIPine 5 mg oral tablet continued as the inpatient order amLODIPine (NORVASC) carvedilol 12.5 mg oral tablet 1 tab(s) orally 2 times a [id number] Carvedilol Tablet (COREG)DOSE = 12.5 mg Oral 2 Times a Daycarvedilol 12.5 mg oral tablet continued as the inpatient order Carvedilol cloNIDine 0.1 mg oral tablet 1 tab(s) orally 2 times a [id number] cloNIDine (CATAPRES) TabletDOSE = 0.1 mg Oral [...] = 10 mg Oral Once Normal [facility] PT/INRon 03-16-2022 PT Coag (PPP) [Time] 12.4 s Normal 9.8 - 13.4 [facility] Comment on above: Performed By: #### P TINR #### [address] [id number] PT, INR 1.1 Normal 0.9 - 1.1 [facility] Comment on above: Performed By: #### P TINR #### [address] [id number] Patient Profile - Adult v2on 03-16-2022 Patient [...] Health: Weight in kg79.5 kilogram(s) Weight in nbi327.2 pound(s) Weight Methodactual (measured) Scale Typebed Height in cm177.8 centimeter(s)(2) Height in feet5 feet Height in cfnukd92 inch(es) Height Methodstated BMI (kg/m2)25.148 square meter [...] organomegaly; no hernia; normal bowel sounds; (-) Decatur sign; (-) McBurneys sign; (+bilateral ) CVA [...] Communicatenone Learning Preferencesaudio Cultural Considerationsnone Developmental Considerationsnone Rastafari Considerationsnone Learning Assessment (Other Learner): Learning Assessment (Other Learner): Other learner availableno Pressure Injury/TB/Substance: Pressure Injury: Do you have a coughno Smoking Statusunable to assess Admission Risk Screen: Significant IndicatorsComplete CAGE: CAGE: Is this an injured patient at a Trauma Center ([facility] a/[facility]): no Electronic Signatures: Leanna Rider (STAFF N) [...] BMI (kg/m2): 26.887 Calculated BSA (m2) 2.05 Ponsford Coma Scale: Best Eye Response: (E4) spontaneous Best Motor Response: (M6) obeys commands Best Verbal Response: (V5) oriented Ponsford Score: 15 Allergies: no Patient has homicidal [...] Reviewedyes HTN: Past Medical History, Active DTaP- Ggwqtdaqy-Swkcfrf-csvbr ular Pertussis: Immunizations, Active, 2019 SARS-CoV-2 (COVID-19): Immunizations, Active Electronic Signatures: Leanna Rider (STAFF N) (Signed 16-Mar-2022 09:14) Authored: Quick Triage, Risk Screens, Pain, Arrival, ABCD, Immunizations, Travel History, Chart Review, Scores, Past Medical History Last Updated: 16-Mar-2022 09:14 by Leanna Rider (STAFF N) Normal [facility] UA MICROSCOPICon 03-16-2022 Mucus Ql (Urine sed) 1+ /LPF Normal [facility] Comment on above: Performed By: #### U ANKUSH #### [address] [id number] RBC 50 /HPF Abnormal 0-5 [facility] Comment on above: Performed By: #### U ANKUSH #### [address] [id number] SQUAMOUS EPITH. CELLS <1 Normal [facility] Comment on above: Performed By: #### U ANKUSH #### [address] [id number] WBC 3 /HPF Normal 0-5 [facility] Comment on above: Performed By: #### U ANKUSH #### [address] [id number] URINALYSIS WITH CULTURE IF I NDICATEDon 03-16-2022 Appearance (U) HAZY Normal CLEAR [facility] Comment on above: Performed By: #### P TINR #### [address] [id number] Bilirubin Ql (U) Negative Normal NEGATIVE [facility] Comment on above: Performed By: #### P TINR #### [address] [id number] Color (U) YELLOW Normal STRAW,YELLOW [facility] Comment on above: Performed By: #### P TINR #### [address] [id number] Glucose Ql (U) 50 (TRACE) Abnormal NEGATIVE [facility] Comment on above: Performed By: #### P TINR #### [address] [id number] Hemoglobin Ql (U) LARGE (3+) Abnormal NEGATIVE [facility] Comment on above: Performed By: #### P TINR #### [address] [id number] Ketones Ql (U) Negative Normal NEGATIVE [facility] Comment on above: Performed By: #### P TINR #### [address] [id number] Leukocyte esterase Test strip Ql (U) Negative Normal NEGATIVE [facility] Comment on above: Performed By: #### P TINR #### [address] [id number] Nitrite Ql (U) Negative Normal NEGATIVE [facility] Comment on above: Performed By: #### P TINR #### [address] [id number] pH (U) 5.0 [pH] Normal 5.0 - 8.0 [facility] Comment on above: Performed By: #### P TINR #### [address] [id number] Protein Ql (U) >=500 (3+) Abnormal NEGATIVE [facility] Comment on above: Performed By: #### P TINR #### [address] [id number] Specific gravity (U) [Rel density] 1.011 Normal 1.005 - 1.035 [facility] Comment on above: Performed By: #### P TINR #### [address] [id number] Urobilinogen (U) [Mass/Vol] mg/dL Normal 0.0 - 1.9 [facility] Comment on above: Performed By: #### P TINR #### [address] [id number] CBC AND DIFFERENTIALon 03-04 % AUTOMATED IMMATURE GRAN 0.4 % Normal 0.0 - 0.9 [facility] Comment on above: Result Comment: Litzy ture Granulocyte Count (IG) includes promyelocytes, myelocytes and metamyelocytes but does not include bands. Percent differential counts (%) should be interpreted in the context of the absolute cell counts (cells/L). Performed By: #### G APC1 #### [address] [id number] Basophils (Bld) [#/Vol] 0.03 10*3/uL Normal 0.00 - 0.10 [facility] Comment on above: Performed By: #### G APC1 #### [address] [id number] Basophils/100 WBC (Bld) 0.4 % Normal 0.0 - 2.0 [facility] Comment on above: Performed By: #### G APC1 #### [address] [id number] Eosinophils (Bld) [#/Vol] 0.59 10*3/uL Normal 0.00 - 0.70 [facility] Comment on above: Performed By: #### G APC1 #### [address] [id number] Eosinophils/100 WBC (Bld) 7.3 % Normal 0.0 - 6.0 [facility] Comment on above: Performed By: #### G APC1 #### [address] [id number] Erythrocyte distribution width (RBC) [Ratio] 13.4 % Normal 11.5 - 14.5 [facility] Comment on above: Performed By: #### G APC1 #### [address] [id number] Hematocrit (Bld) [Volume fraction] 29.2 % Low 41.0 - 52.0 [facility] Comment on above: Performed By: #### G APC1 #### [address] [id number] Hemoglobin (Bld) [Mass/Vol] 9.5 g/dL Low 13.5 - 17.5 [facility] Comment on above: Performed By: #### G APC1 #### [address] [id number] Lymphocytes (Bld) [#/Vol] 1.48 10*3/uL Normal 1.20 - 4.80 [facility] Comment on above: Performed By: #### G APC1 #### [address] [id number] Lymphocytes/100 WBC (Bld) 18.3 % Normal 13.0 - 44.0 [facility] Comment on above: Performed By: #### G APC1 #### [address] [id number] MCHC (RBC) [Mass/Vol] 32.5 g/dL Normal 32.0 - 36.0 [facility] Comment on above: Performed By: #### G APC1 #### [address] [id number] MCV (RBC) [Entitic vol] 93 fL Normal 80 - 100 [facility] Comment on above: Performed By: #### G APC1 #### [address] [id number] Monocytes (Bld) [#/Vol] 0.53 10*3/uL Normal 0.10 - 1.00 [facility] Comment on above: Performed By: #### G APC1 #### [address] [id number] Monocytes/100 WBC (Bld) 6.6 % Normal 2.0 - 10.0 [facility] Comment on above: Performed By: #### G APC1 #### [address] [id number] Neutrophils (Bld) [#/Vol] 5.42 10*3/uL Normal 1.20 - 7.70 [facility] Comment on above: Performed By: #### G APC1 #### [address] [id number] Neutrophils/100 WBC (Bld) 67.0 % Normal 40.0 - 80.0 [facility] Comment on above: Performed By: #### G APC1 #### [address] [id number] Platelets (Bld) [#/Vol] 290 10*3/uL Normal 150 - 450 [facility] Comment on above: Performed By: #### G APC1 #### [address] [id number] RBC 3.14 x10E12/L Low 4.50 - 5.90 [facility] Comment on above: Performed By: #### G APC1 #### [address] [id number] WBC (Bld) [#/Vol] 8.1 10*3/uL Normal 4.4 - 11.3 [facility] Comment on above: Performed By: #### G APC1 #### [address] [id number] COMPREHENSIVE PANELon 2021 Albumin [Mass/Vol] 4.3 g/dL Normal 3.4 - 5.0 [facility] Comment on above: Performed By: #### R ENAL #### [address] [id number] ALP [Catalytic activity/Vol] 62 U/L Normal 33 - 120 [facility] Comment on above: Performed By: #### R ENAL #### [address] [id number] ALT [Catalytic activity/Vol] 13 U/L Normal 10 - 52 [facility] Comment on above: Result Comment: Lalita ents treated with Sulfasalazine may generate falsely decreased results for ALT. Performed By: #### R ENAL #### [address] [id number] Anion gap [Moles/Vol] 18 mmol/L Normal 10 - 20 [facility] Comment on above: Performed By: #### R ENAL #### [address] [id number] AST [Catalytic activity/Vol] 14 U/L Normal 9 - 39 [facility] Comment on above: Performed By: #### R ENAL #### [address] [id number] Bilirubin [Mass/Vol] 0.3 mg/dL Normal 0.0 - 1.2 [facility] Comment on above: Performed By: #### R ENAL #### [address] [id number] Calcium [Mass/Vol] 8.6 mg/dL Normal 8.6 - 10.3 [facility] Comment on above: Performed By: #### R ENAL #### [address] [id number] Chloride [Moles/Vol] 104 mmol/L Normal 98 - 107 [facility] Comment on above: Performed By: #### R ENAL #### [address] [id number] Creatinine [Mass/Vol] 7.33 mg/dL High 0.50 - 1.30 [facility] Comment on above: Performed By: #### R ENAL #### [address] [id number] GFR/1.73 sq M.predicted among non-blacks MDRD (S/P/Bld) [Vol rate/Area] 10 mL/min/{1.73_m2} Abnormal >90 [facility] Comment on above: Result Comment: CALC ULATIONS OF ESTIMATED GFR ARE PERFORMED USING THE 2020 CKD-EPI STUDY REFIT EQUATION WITHOUT THE RACE VARIABLE FOR THE IDMS-TRACEABLE CREATININE METHODS. https://jasn.asnjournals.org/content//ASN.564794 6972 Performed By: #### R ENAL #### [address] [id number] Glucose [Mass/Vol] 89 mg/dL Normal 74 - 99 [facility] Comment on above: Performed By: #### R ENAL #### [address] [id number] HCO3 (Bld) [Moles/Vol] 21 mmol/L Normal 21 - 32 [facility] Comment on above: Performed By: #### R ENAL #### [address] [id number] Potassium [Moles/Vol] 4.7 mmol/L Normal 3.5 - 5.3 [facility] Comment on above: Performed By: #### R ENAL #### [address] [id number] Protein [Mass/Vol] 6.7 g/dL Normal 6.4 - 8.2 [facility] Comment on above: Performed By: #### R ENAL #### [address] [id number] Sodium [Moles/Vol] 138 mmol/L Normal 136 - 145 [facility] Comment on above: Performed By: #### R ENAL #### [address] [id number] Urea nitrogen [Mass/Vol] 66 mg/dL High 6 - 23 [facility] Comment on above: Performed By: #### R ENAL #### [address] [id number] Covid 19 Resultson 2 SARS-CoV-2 (COVID-19) RNA [...] You may also be contacted by the [facility] to see if any of your [...] or Naproxen (Aleve) can also be used. Pduk-zoj-hrwkywp cough and cold medicines can be used according to the instructions on the package. Some ngwk-tdw-dgxowwd medicines also contain acetaminophen. Make sure you [...] water are not available, use alcohol-based hand promotion officer. Avoid touching your eyes, nose, and mouth [...] A, PCR Not detected Normal Not Detected [facility] Comment on above: Result Comment: Resp iratory virus testing is performed routinely by PCR for Influenza A/B and RSV. Not Detected results do not preclude Influenza A/B or RSV infections since the adequacy of sample collection or low viral burden may impact the clinical sensitivity of this test method. Performed By: #### M G #### [address] [id number] INFLUENZA B, PCR Not detected Normal Not Detected [facility] Comment on above: Result Comment: Resp iratory virus testing is performed routinely by PCR for Influenza A/B and RSV. Not Detected results do not preclude Influenza A/B or RSV infections since the adequacy of sample collection or low viral burden may impact the clinical sensitivity of this test method. Performed By: #### M G #### [address] [id number] SARS-CoV-2 (COVID-19) RNA MIGUEL+probe Ql (Unsp spec) Not detected Normal Not Detected [facility] Comment on above: Result Comment: . This test has received [facility] Emergency Use Authorization (EUA) and has been verified by [facility]. This test is only authorized for the duration of time that circumstances exist to justify the authorization of the emergency use of in vitro diagnostic tests for the detection of SARS-CoV-2 virus and/or diagnosis of COVID-19 infection under section 564(b)(1) of the Act, 21 U.S.C. 360bbb-3(b)(1), unless the authorization is terminated or revoked sooner. [facility] is certified under CLIA-88 as qualified to perform high complexity testing. Testing is performed in the [facility] laboratory located at [address] [place], [place] [address]. SARS-CoV-2/Flu/RSV Multiplex Test: Fact sheet for providers: https://www.fda.gov/media/576926/download Fact sheet for patients: https://www.fda.gov/media/453128/download Performed By: #### M G #### [address] [id number] Lab Specimen Source Nasal, Nasopharyngeal Normal [facility] Comment on above: Performed By: #### M G #### [address] [id number] LACTATEon 03-04-2022 Lactate [Moles/Vol] 0.5 mmol/L Normal 0.4 - 2.0 [facility] Comment on above: Result Comment: Shelbie puncture immediately after or during the administration of Metamizole may lead to falsely low results. Testing should be performed immediately prior to Metamizole dosing. Performed By: #### G APC1 #### [address] [id number] LIPASEon 03-04-2022 Lipase [Catalytic activity/Vol] 79 U/L Normal 9 - 82 [facility] Comment on above: Result Comment: Shelbie puncture immediately after or during the administration of Metamizole may lead to falsely low results. Testing should be performed immediately prior to Metamizole dosing. P-ajdxfz-u-benzoquinone imine (metabolite of Acetaminophen) will generate erroneously low results in samples for patients that have taken toxic doses of acetaminophen. Performed By: #### T PS2 #### [address] [id number] PT/INRon 03-04-2022 PT Coag (PPP) [Time] 12.3 s Normal 9.8 - 13.4 [facility] Comment on above: Performed By: #### G APC1 #### [address] [id number] PT, INR 1.1 Normal 0.9 - 1.1 [facility] Comment on above: Performed By: #### G APC1 #### [address] [id number] Provider Note - ED v3on 02-16 Provider [...] contacts. 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 Patient denies any chest pain or shortness [...] organomegaly; no hernia; normal bowel sounds; (-) Decatur sign; (-) McBurneys sign; (bilateral +) CVA [...] obeys commands Best Verbal Response: (V5) oriented Ponsford Score: 15 Allergies: no Patient has homicidal [...] Reviewedyes HTN: Past Medical History, Active DTaP- Xolsgfmdt-Dszuadw-hfmwk ular Pertussis: Immunizations, Active, 2019 SARS-CoV-2 (COVID-19): [...] above: Performed By: #### R ENAL #### [address] [id number] HYALINE CAST OCC Abnormal [facility] Comment on above: Performed By: #### R ENAL #### [address] [id number] Mucus Ql (Urine sed) 1+ /LPF Normal [facility] Comment on above: Performed By: #### R ENAL #### [address] [id number] RBC 34 /HPF Abnormal 0-5 [facility] Comment on above: Performed By: #### R ENAL #### [address] [id number] WBC 2 /HPF Normal 0-5 [facility] Comment on above: Performed By: #### R ENAL #### [address] [id number] URINALYSIS WITH CULTURE IF I NDICATEDon 03-04-2022 Appearance (U) CLEAR Normal CLEAR [facility] Comment on above: Performed By: #### T PS2 #### [address] [id number] Bilirubin Ql (U) Negative Normal NEGATIVE [facility] Comment on above: Performed By: #### T PS2 #### [address] [id number] Color (U) STRAW Normal STRAW,YELLOW [facility] Comment on above: Performed By: #### T PS2 #### [address] [id number] Glucose Ql (U) Negative Normal NEGATIVE [facility] Comment on above: Performed By: #### T PS2 #### [address] [id number] Hemoglobin Ql (U) LARGE (3+) Abnormal NEGATIVE [facility] Comment on above: Performed By: #### T PS2 #### [address] [id number] Ketones Ql (U) Negative Normal NEGATIVE [facility] Comment on above: Performed By: #### T PS2 #### [address] [id number] Leukocyte esterase Test strip Ql (U) Negative Normal NEGATIVE [facility] Comment on above: Performed By: #### T PS2 #### [address] [id number] Nitrite Ql (U) Negative Normal NEGATIVE [facility] Comment on above: Performed By: #### T PS2 #### [address] [id number] pH (U) 5.0 [pH] Normal 5.0 - 8.0 [facility] Comment on above: Performed By: #### T PS2 #### [address] [id number] Protein Ql (U) >=300 + Abnormal NEGATIVE [facility] Comment on above: Performed By: #### T PS2 #### [address] [id number] Specific gravity (U) [Rel density] 1.020 Normal 1.005 - 1.035 [facility] Comment on above: Performed By: #### T PS2 #### [facility] [address] [place], [place] [id number] Urobilinogen (U) [Mass/Vol] mg/dL Normal 0.0 - 1.9 [facility] Comment on above: Performed By: #### T PS2 #### [address] [id number] Clinical Event Note-ED Post Discharge Result Follow Up: Atteon 02-22-2022 Clinical Event Note-ED Post Discharge Result Follow Up: Atte Clinical Event: Clinical Event Note: TopicED Post Discharge Result Follow Up: Attempt # 1, Complete : Wound: Group B strep, Staph Aureus Details ED Post-Discharge Team was notified of final results on this patient's wound culture. The patient was admitted to [facility] from 02/18/33 to 02/21/22. Inpatient provider discharged patient on appropriate therapy. No further follow up needed from ED PD Team. If there are any other questions for the ED Post-Discharge Culture Follow Up Team, please contact [phone]. . Naomi Thomas PharmD, [facility] PGY1 Care Transition Coordinator Meds Electronic Signatures: Naomi Thomas ([facility]) (Signed 22-Feb-2022 12:20) Authored: Clinical Event Note Nicki Vega (PharmD) (Signed 23-Feb-2022 08:19) Co-Signer: Clinical Event Note Last Updated: 23-Feb-2022 08:19 by Nicki Vega (PharmD) Normal [facility] CBCon 02-21-2022 Erythrocyte distribution width (RBC) [Ratio] 11.9 % Normal 11.5 - 14.5 [facility] Comment on above: Performed By: #### C BC ####[facility] [place], [place] [id number] Hematocrit (Bld) [Volume fraction] 24.8 % Low 41.0 - 52.0 [facility] Comment on above: Performed By: #### C BC ####[facility] [place], [place] [id number] Hemoglobin (Bld) [Mass/Vol] 8.1 g/dL Low 13.5 - 17.5 [facility] Comment on above: Performed By: #### C BC ####[facility] [place], [place] [id number] MCHC (RBC) [Mass/Vol] 32.7 g/dL Normal 32.0 - 36.0 [facility] Comment on above: Performed By: #### C BC ####[facility] [place], [place] [id number] MCV (RBC) [Entitic vol] 92 fL Normal 80 - 100 [facility] Comment on above: Performed By: #### C BC ####[facility] [place], [place] [id number] Platelets (Bld) [#/Vol] 293 10*3/uL Normal 150 - 450 [facility] Comment on above: Performed By: #### C BC ####[facility] [place], [place] [id number] RBC 2.69 x10E12/L Low 4.50 - 5.90 [facility] Comment on above: Performed By: #### C BC ####[facility] [place], [place] [id number] WBC (Bld) [#/Vol] 9.2 10*3/uL Normal 4.4 - 11.3 [facility] Comment on above: Performed By: #### C BC ####[facility] [place], [place] [id number] COAGULATION SCREENon 022 aPTT Coag (Bld) [Time] 33 s Normal 26 - 39 [facility] Comment on above: Result Comment: THE APTT IS NO LONGER USED FOR MONITORING UNFRACTIONATED HEPARIN THERAPY. FOR MONITORING HEPARIN THERAPY, USE THE HEPARIN ASSAY. Performed By: #### R ENAL #### [facility] [address] [place], [place] [id number] PT Coag (PPP) [Time] 12.1 s Normal 9.8 - 13.4 [facility] Comment on above: Performed By: #### R ENAL #### [address] [id number] PT, INR 1.0 Normal 0.9 - 1.1 [facility] Comment on above: Performed By: #### R ENAL #### [address] [id number] COMPREHENSIVE PANELon 2021 Albumin [Mass/Vol] 3.4 g/dL Normal 3.4 - 5.0 [facility] Comment on above: Performed By: #### R ENAL #### [address] [id number] ALP [Catalytic activity/Vol] 67 U/L Normal 33 - 120 [facility] Comment on above: Performed By: #### R ENAL #### [address] [id number] ALT [Catalytic activity/Vol] 5 U/L Low 10 - 52 [facility] Comment on above: Result Comment: Lalita ents treated with Sulfasalazine may generate falsely decreased results for ALT. Performed By: #### R ENAL #### [address] [id number] Anion gap [Moles/Vol] 15 mmol/L Normal 10 - 20 [facility] Comment on above: Performed By: #### R ENAL #### [address] [id number] AST [Catalytic activity/Vol] 9 U/L Normal 9 - 39 [facility] Comment on above: Performed By: #### R ENAL #### [address] [id number] Bilirubin [Mass/Vol] 0.3 mg/dL Normal 0.0 - 1.2 [facility] Comment on above: Performed By: #### R ENAL #### [address] [id number] Calcium [Mass/Vol] 8.6 mg/dL Normal 8.6 - 10.3 [facility] Comment on above: Performed By: #### R ENAL #### [address] [id number] Chloride [Moles/Vol] 108 mmol/L High 98 - 107 [facility] Comment on above: Performed By: #### R ENAL #### [address] [id number] Creatinine [Mass/Vol] 7.11 mg/dL High 0.50 - 1.30 [facility] Comment on above: Performed By: #### R ENAL #### [address] [id number] GFR/1.73 sq M.predicted among non-blacks MDRD (S/P/Bld) [Vol rate/Area] 10 mL/min/{1.73_m2} Abnormal >90 [facility] Comment on above: Result Comment: CALC ULATIONS OF ESTIMATED GFR ARE PERFORMED USING THE 2020 CKD-EPI STUDY REFIT EQUATION WITHOUT THE RACE VARIABLE FOR THE IDMS-TRACEABLE CREATININE METHODS. https://jasn.asnjournals.org/content//ASN.370236 3504 Performed By: #### R ENAL #### [address] [id number] Glucose [Mass/Vol] 84 mg/dL Normal 74 - 99 [facility] Comment on above: Performed By: #### R ENAL #### [address] [id number] HCO3 (Bld) [Moles/Vol] 22 mmol/L Normal 21 - 32 [facility] Comment on above: Performed By: #### R ENAL #### [address] [id number] Potassium [Moles/Vol] 4.9 mmol/L Normal 3.5 - 5.3 [facility] Comment on above: Performed By: #### R ENAL #### [address] [id number] Protein [Mass/Vol] 6.0 g/dL Low 6.4 - 8.2 [facility] Comment on above: Performed By: #### R ENAL #### [address] [id number] Sodium [Moles/Vol] 140 mmol/L Normal 136 - 145 [facility] Comment on above: Performed By: #### R ENAL #### [address] [id number] Urea nitrogen [Mass/Vol] 69 mg/dL High 6 - 23 [facility] Comment on above: Performed By: #### R ENAL #### [address] [id number] Consult-Infectious Diseaseon 02-21-2022 Consult-Infectious Disease Service: Service: [...] Known Allergies: Consult Status: Consult Order ID: [id number] Electronic Signatures: Phylicia Costello) (Signed 20-Feb-2022 23:53) [...] 4. Objective Data: Objective Information: T PRBPMAPSpO2 Value36.94457079/342104 9% Date/Time02/21 12: 12: 12: 12: 20: [...] ----- Mn/Dy/Year TimeIntakeOutputNet Feb 20, 2022 10:00 [id number] Feb 20, 2022 2:00 [id number] The Intake and Output Totals for the last 24 hours are: IntakeOutputNet [id number] Recent Lab Results: Results: CBC: 02/21/2022 06:25 [...] symptoms. Objective Data: Objective Information: T PRBPMAPSpO2 Value36.29483935/092031 9% Date/Time02/21 12: 12: 12: 12: 20: [...] ----- Mn/Dy/Year TimeIntakeOutputNet Feb 20, 2022 10:00 [id number] Feb 20, 2022 2:00 [id number] The Intake and Output Totals for the last 24 hours are: IntakeOutputNet [id number] Physical Exam by System: Constitutional: awake/alert/oriented x3, [...] Hours BIOLOGICALS: 1. Epoetin Trey (Non-ESRD) Injectable: 26301 unit(s) SubCutaneous Weekly CARDIOVASCULAR AGENTS: 1. cloNIDine [...] diarrhea. Objective Data: Objective Information: T PRBPMAPSpO2 Value36.782661561/81833 99% Date/Time02/20 20: 20: 20: 20: 20: [...] ----- Mn/Dy/Year TimeIntakeOutputNet Feb 20, 2022 10:00 [id number] Feb 20, 2022 2:00 [id number] The Intake and Output Totals for the last 24 hours are: IntakeOutputNet [id number] T PRBPMAPSpO2 Value36.723949198/59983 99% Date/Time02/21 20: 20: 20: 20: 20: [...] not included)... Normal [facility] Discharge [id number] Discharge Profile2 Discharge Orders: Anticipated Discharge Date: Anticipated Discharge [id number] Problem List: Additional Dx: Benign hypertension with [...] 5 Call to Schedule in2 weeks [address] Phone [phone] Electronic Signatures: Brook Carrasco) (Signed 21-Feb-2022 16:10) Authored: Discharge Orders, Provider FINAL REVIEW of Orders Darryn Grant) (Signed 21-Feb-2022 13:30) Authored: Discharge Orders, Appointments, Gold Form - Plywood And Veneer Repairer Summary Last Updated: 21-Feb-2022 16:10 by Brook [...] further information. Performed By: #### H BAB3 ####[id number] [place] [address] Lab Specimen Source Normal [facility] Comment on above: Performed By: #### H BAB3 ####[id number] [place] [address] Performed By: #### R ENAL #### [facility] [address] [place], [place] [id number] HEPATITIS B SURFACE AGon HEP.B SURFACE AG Non-Reactive Normal NONREACTIVE [facility] Comment on above: Result Comment: Biot in interference may cause falsely decreased results. Patients taking a Biotin dose of up to 5 mg/day should refrain from taking Biotin for 24 hours before sample collection. Providers may contact their local laboratory for further information. Performed By: #### R ENAL #### [facility] [address] [place], [place] [id number] MAGNESIUMon 02-21-2022 Magnesium [Mass/Vol] 1.72 mg/dL Normal 1.60 - 2.40 [facility] Comment on above: Performed By: #### M G ####[facility] [place], [place] [id number] Order Reconciliationon 02-21 Order Reconciliation Page 1 [...] [Mass/Vol] 5.8 mg/dL High 2.5 - 4.9 [facility] Comment on above: Result Comment: The performance characteristics of phosphorus testing in heparinized plasma have been validated by the individual laboratory site where testing is performed. Testing on heparinized plasma is not approved by the FDA; however, such approval is not necessary. Performed By: #### M G #### [address] [id number] RENAL FUNCTION PANELon 02-21 ALBUMIN Canceled Normal [facility] Comment on above: Order Comment: TEST RENAL FUNCTION PANEL WAS CANCELLED, 02/21/2022 06:55 CMP and PHOS on other order. Performed By: #### R ENAL #### [address] [id number] ANION GAP Canceled Normal [facility] Comment on above: Order Comment: TEST RENAL FUNCTION PANEL WAS CANCELLED, 02/21/2022 06:55 CMP and PHOS on other order. Performed By: #### R ENAL #### [address] [id number] BICARBONATE Canceled Normal [facility] Comment on above: Order Comment: TEST RENAL FUNCTION PANEL WAS CANCELLED, 02/21/2022 06:55 CMP and PHOS on other order. Performed By: #### R ENAL #### [address] [id number] CALCIUM Canceled Normal [facility] Comment on above: Order Comment: TEST RENAL FUNCTION PANEL WAS CANCELLED, 02/21/2022 06:55 CMP and PHOS on other order. Performed By: #### R ENAL #### [address] [id number] CHLORIDE Canceled Normal [facility] Comment on above: Order Comment: TEST RENAL FUNCTION PANEL WAS CANCELLED, 02/21/2022 06:55 CMP and PHOS on other order. Performed By: #### R ENAL #### [address] [id number] CREATININE Canceled Normal [facility] Comment on above: Order Comment: TEST RENAL FUNCTION PANEL WAS CANCELLED, 02/21/2022 06:55 CMP and PHOS on other order. Performed By: #### R ENAL #### [address] [id number] eGFR FEMALE Canceled Normal [facility] Comment on above: Order Comment: TEST RENAL FUNCTION PANEL WAS CANCELLED, 02/21/2022 06:55 CMP and PHOS on other order. Result Comment: CALC ULATIONS OF ESTIMATED GFR ARE PERFORMED USING THE 2020 CKD-EPI STUDY REFIT EQUATION WITHOUT THE RACE VARIABLE FOR THE IDMS-TRACEABLE CREATININE METHODS. https://jasn.asnjournals.org/content/earlyASN.476222 6431 Performed By: #### R ENAL #### [address] [id number] eGFR MALE Canceled Normal [facility] Comment on above: Order Comment: TEST RENAL FUNCTION PANEL WAS CANCELLED, 02/21/2022 06:55 CMP and PHOS on other order. Result Comment: CALC ULATIONS OF ESTIMATED GFR ARE PERFORMED USING THE 2020 CKD-EPI STUDY REFIT EQUATION WITHOUT THE RACE VARIABLE FOR THE IDMS-TRACEABLE CREATININE METHODS. https://jasn.asnjournals.org/content/earlyASN.689705 8071 Performed By: #### R ENAL #### [address] [id number] GLUCOSE Canceled Normal [facility] Comment on above: Order Comment: TEST RENAL FUNCTION PANEL WAS CANCELLED, 02/21/2022 06:55 CMP and PHOS on other order. Performed By: #### R ENAL #### [address] [id number] PHOSPHORUS Canceled Normal [facility] Comment [...] necessary. Performed By: #### R ENAL #### [address] [id number] POTASSIUM Canceled Normal [facility] Comment on above: Order Comment: TEST RENAL FUNCTION PANEL WAS CANCELLED, 02/21/2022 06:55 CMP and PHOS on other order. Performed By: #### R ENAL #### [address] [id number] SODIUM Canceled Normal [facility] Comment on above: Order Comment: TEST RENAL FUNCTION PANEL WAS CANCELLED, 02/21/2022 06:55 CMP and PHOS on other order. Performed By: #### R ENAL #### [address] [id number] UREA NITROGEN Canceled Normal [facility] Comment on above: Order Comment: TEST RENAL FUNCTION PANEL WAS CANCELLED, 02/21/2022 06:55 CMP and PHOS on other order. Performed By: #### R ENAL #### [address] [id number] SHAKIR + MAGALY PANELon 02-20-2022 SHAKIR PATTERN HOMOGENEOUS Normal [facility] Comment on above: Performed By: #### A NAP2 ####[id number] [place] [address] SHAKIR TITER 1:80 Normal [facility] Comment on above: Performed By: #### A NAP2 ####[id number] [place] [address] SHAKIR WITH REFLEX TO MAGALY Positive Abnormal NEGATIVE [facility] Comment on above: Result Comment: The Antinuclear Antibody (SHAKIR) test was performed using indirect immunofluorescence assay with HEp-2 cells slide. Performed By: #### A NAP2 ####[id number] [place] [address] CBCon 02-20-2022 Erythrocyte distribution width (RBC) [Ratio] 11.9 % Normal 11.5 - 14.5 [facility] Comment on above: Performed By: #### R ENAL #### [address] [id number] Hematocrit (Bld) [Volume fraction] 24.4 % Low 41.0 - 52.0 [facility] Comment on above: Performed By: #### R ENAL #### [address] [id number] Hemoglobin (Bld) [Mass/Vol] 8.1 g/dL Low 13.5 - 17.5 [facility] Comment on above: Performed By: #### R ENAL #### [address] [id number] MCHC (RBC) [Mass/Vol] 33.2 g/dL Normal 32.0 - 36.0 [facility] Comment on above: Performed By: #### R ENAL #### [address] [id number] MCV (RBC) [Entitic vol] 92 fL Normal 80 - 100 [facility] Comment on above: Performed By: #### R ENAL #### [address] [id number] Platelets (Bld) [#/Vol] 278 10*3/uL Normal 150 - 450 [facility] Comment on above: Performed By: #### R ENAL #### [address] [id number] RBC 2.65 x10E12/L Low 4.50 - 5.90 [facility] Comment on above: Performed By: #### R ENAL #### [address] [id number] WBC (Bld) [#/Vol] 12.9 10*3/uL High 4.4 - 11.3 [facility] Comment on above: Performed By: #### R ENAL #### [address] [id number] COMPREHENSIVE PANELon 2021 Albumin [Mass/Vol] 3.4 g/dL Normal 3.4 - 5.0 [facility] Comment on above: Performed By: #### C MP ####[address] [id number] ALP [Catalytic activity/Vol] 65 U/L Normal 33 - 120 [facility] Comment on above: Performed By: #### C MP ####[address] [id number] ALT [Catalytic activity/Vol] 6 U/L Low 10 - 52 [facility] Comment on above: Result Comment: Lalita ents treated with Sulfasalazine may generate falsely decreased results for ALT. Performed By: #### C MP ####[address] [place], [place] [id number] Anion gap [Moles/Vol] 16 mmol/L Normal 10 - 20 [facility] Comment on above: Performed By: #### C MP ####[address] [id number] AST [Catalytic activity/Vol] 11 U/L Normal 9 - 39 [facility] Comment on above: Performed By: #### C MP ####[address] [id number] Bilirubin [Mass/Vol] 0.4 mg/dL Normal 0.0 - 1.2 [facility] Comment on above: Performed By: #### C MP ####[address] [id number] Calcium [Mass/Vol] 8.5 mg/dL Low 8.6 - 10.3 [facility] Comment on above: Performed By: #### C MP ####[address] [id number] Chloride [Moles/Vol] 106 mmol/L Normal 98 - 107 [facility] Comment on above: Performed By: #### C MP ####[address] [id number] Creatinine [Mass/Vol] 7.91 mg/dL High 0.50 - 1.30 [facility] Comment on above: Performed By: #### C MP ####[address] [id number] GFR/1.73 sq M.predicted among non-blacks MDRD (S/P/Bld) [Vol rate/Area] 9 mL/min/{1.73_m2} Abnormal >90 [facility] Comment on above: Result Comment: CALC ULATIONS OF ESTIMATED GFR ARE PERFORMED USING THE 2020 CKD-EPI STUDY REFIT EQUATION WITHOUT THE RACE VARIABLE FOR THE IDMS-TRACEABLE CREATININE METHODS. https://jasn.asnjournals.org/content/early/ASN.881473 8524 Performed By: #### C MP ####[address] [id number] Glucose [Mass/Vol] 99 mg/dL Normal 74 - 99 [facility] Comment on above: Performed By: #### C MP ####[address] [id number] HCO3 (Bld) [Moles/Vol] 22 mmol/L Normal 21 - 32 [facility] Comment on above: Performed By: #### C MP ####[address] [id number] Potassium [Moles/Vol] 4.9 mmol/L Normal 3.5 - 5.3 [facility] Comment on above: Performed By: #### C MP ####[address] [id number] Protein [Mass/Vol] 6.0 g/dL Low 6.4 - 8.2 [facility] Comment on above: Performed By: #### C MP ####[address] [id number] Sodium [Moles/Vol] 139 mmol/L Normal 136 - 145 [facility] Comment on above: Performed By: #### C MP ####[address] [id number] Urea nitrogen [Mass/Vol] 70 mg/dL High 6 - 23 [facility] Comment on above: Performed By: #### C MP ####[address] [id number] Clinical Event Note-ED Post Discharge Result Follow [...] emergency room. The patient was admitted to [facility]). The Culture Callback Team will turn over care to the inpatient providers. Please refer to inpatient pharmacist team if providers would like recommendations regarding these results. No further follow up is necessary. If there are any other questions for the ED Post-Discharge Culture Follow Up Team, please contact [phone]. . Rudy Bowden PharmD, [facility] Clinical Pharmacist - Culture Callback Pharmacist [facility] Electronic Signatures: Nicki Vega (PharmBrady) (Signed 21-Feb-2022 08:16) Co-Signer: Clinical Event Note Rudy Bowden ([facility]) (Signed 20-Feb-2022 13:32) Authored: Clinical Event Note Last Updated: 21-Feb-2022 08:16 by Nicki Vega (PharmBrady) Normal [facility] Daily Progress Note [...] worse. Objective Data: Objective Information T PRBPMAPSpO2 Value36.61424599/441796 % Date/Time02/20 6:00104/23 9: 9: 9:00104/23 9:00104/23 9:00 Range(36.4C - 36.8C ) (78 - 122 ) (10 - 28 ) (118 - 185 )/ (36 - 78 ) (71 - 111 ) (92% - 97% ) Pain reported at 02/20 8:00: 0 = None ---- Intake and Output ----- Mn/Dy/Year TimeIntakeOutputNet Feb 19, 2022 10:00 [id number] Feb 19, 2022 2:00 [id number] The Intake and Output Totals for the last 24 hours are: [facility] [id number] Date: Weight/Scale Type: 19-Feb-2022 06:0082.3 kg / standing 18-Feb-2022 21:2384.4 kg / bed 18-Feb-2022 13:5286 kg ---- Int[facility] and Output ----- [facility], 2022 10:00 [id number] Feb 19, 2022 2:00 [id number] The Intake and Output Totals for the last 24 hours are: [facility] [id number] Physical Exam by System: Neurological: AAOx3. Moves [...] symptoms. Objective Data: Objective Information: T PRBPMAPSpO2 Value36.34830433/873900 % Date/Time02/20 10: 11: 11: 11: 11: 11:00 Range(36.4C - 36.8C ) (72 - 122 ) (10 - 28 ) (118 - 185 )/ (36 - 78 ) (71 - 111 ) (92% - 97% ) Pain reported at 02/20 8:00: 0 = None ---- Intake and Output ----- Mn/Dy/Year TimeIntakeOutputNet Feb 19, 2022 10:00 [id number] Feb 19, 2022 2:00 [id number] The Intake and Output Totals for the last 24 hours are: IntakeOutputNet [id number] Physical Exam by System: Constitutional: awake/alert/oriented x3, [...] Grant) Normal [facility] Discharge Planning Wexc5ry 1 04-23-2021 Discharge Planning Note2 Discharge Planning: Planned Dispositionhome Discharge DestinationHome Anticipated Discharge [id number] Discharge Planning 02/20/22 Maximino RYAN RN TCC [...] Ramos RN TCC Assessment: Discharge Planning Assessment [id number] Primary Contact Name and NumberEduardo (Father) [phone](1) Lives Withgrandparent(s); parent(s)(1) Living Arrangementshouse(1) Stated Reason for AdmissionPain in right great toe with sore throat and ear pain.(1) [place] Resource/Environmental Concernsnone(1) [place] Services Anticipated at Transitionnon(1) Nursing Checklist: Lines/Cathetersremoved/ appropriate for next level of care Discharge Med Rec Reconciled with Suad Patient has Prescriptionsyes Transportation for Discharge Confirmedyes Follow up Reviewedyes Discharge Instructions Reviewed WithPatient Discharge Instructions Outcomeverbalize recall/understanding Discharge Documentation: Discharged Accompanied Byfriend Transportation Methodprivate car Discharge Modewheelchair Code StatusCode Status order at time of discharge: Full Code Discharge Order Writtenyes [place] DNR Form Sent with Patient and/or Familyn/a Valuables/Medications/B elongings Returnedyes Final Disposition.Home Electronic Signatures: Leslie Ryan (CLIN COOR) (Signed 20-Feb-2022 17:46) Authored: Discharge Planning, Assessment Michell Ramos (VIRTUALIZATION ARCHITECT) (Signed 21-Feb-2022 16:37) Authored: Discharge Planning Alexa Zaragoza (RN) (Signed 21-Feb-2022 16:22) Authored: Discharge Planning, Nursing Checklist, Discharge Documentation Last Updated: 21-Feb-2022 16:37 by Michell Ramos (VIRTUALIZATION ARCHITECT) References: 1. Data Referenced From Patient Profile - Adult v2" 18-Feb-2022 21:23 Normal [facility] MAGNESIUMon 02-20-2022 Magnesium [Mass/Vol] 1.75 mg/dL Normal 1.60 - 2.40 [facility] Comment on above: Performed By: #### M G #### [facility] [address] [place], [place] [id number] PHOSPHORUSon 02-20-2022 Phosphate [Mass/Vol] 5.3 mg/dL High 2.5 - 4.9 [facility] Comment on above: Result Comment: The performance characteristics of phosphorus testing in heparinized plasma have been validated by the individual laboratory site where testing is performed. Testing on heparinized plasma is not approved by the FDA; however, such approval is not necessary. 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 High 0.0 - 30.0 [facility] Comment on above: Performed By: #### A LBSP ####[address] [place], [place] [id number] SHAKIR + MAGALY PANELon 02-19-2022 ANTI-CENTROMERE <0.2 Normal [facility] Comment on above: Result Comment: REF VALUES < 1.0 = NEGATIVE >=1.0 = POSITIVE Performed By: #### A NAP2 ####[id number] [place] [address] ANTI-CHROMATIN <0.2 Normal [facility] Comment on above: Result Comment: REF VALUES < 1.0 = NEGATIVE >=1.0 = POSITIVE Performed By: #### A NAP2 ####[id number] [place] [address] ANTI-DNA [DS] <1.0 Normal [facility] Comment on above: Result Comment: REF VALUES NEGATIVE: <= 4 IU/ML EQUIVOCAL: 5- 9 IU/ML POSITIVE: >=10 IU/ML Performed By: #### A NAP2 ####[id number] [place] [address] ANTI-TONE-1 <0.2 Normal [facility] Comment on above: Result Comment: REF VALUES < 1.0 = NEGATIVE >=1.0 = POSITIVE Performed By: #### A NAP2 ####[id number] [place] [address] ANTI-RIBOSOMAL P 0.3 AI Normal [facility] Comment on above: Result Comment: REF VALUES < 1.0 = NEGATIVE >=1.0 = POSITIVE Performed By: #### A NAP2 ####[id number] [place] [address] ANTI-MEDICAL PAYMENT POSTER 0.3 AI Normal [facility] Comment on above: Result Comment: REF VALUES < 1.0 = NEGATIVE >=1.0 = POSITIVE Performed By: #### A NAP2 ####[id number] [place] [address] ANTI-SCL-70 <0.2 Normal [facility] Comment on above: Result Comment: REF VALUES < 1.0 = NEGATIVE >=1.0 = POSITIVE Performed By: #### A NAP2 ####[id number] [place] [address] ANTI-SM <0.2 Normal [facility] Comment on above: Result Comment: REF VALUES < 1.0 = NEGATIVE >=1.0 = POSITIVE Performed By: #### A NAP2 ####[id number] [place] [address] ANTI-SM/MEDICAL PAYMENT POSTER <0.2 Normal [facility] Comment on above: Result Comment: REF VALUES < 1.0 = NEGATIVE >=1.0 = POSITIVE Performed By: #### A NAP2 ####[id number] [place] [address] ANTI-SSA <0.2 Normal [facility] Comment on above: Result Comment: REF VALUES < 1.0 = NEGATIVE >=1.0 = POSITIVE Performed By: #### A NAP2 ####[id number] [place] [address] ANTI-SSB <0.2 Normal [facility] Comment on above: Result Comment: REF VALUES < 1.0 = NEGATIVE >=1.0 = POSITIVE Performed By: #### A NAP2 ####[id number] [place] [address] C3 COMPLEMENTon 02-19-2022 C3 COMPLEMENT 123 mg/dL Normal 87 - 200 [facility] Comment on above: Performed By: #### M G #### [facility] [address] [place], [place] [id number] C4 COMPLEMENTon 02-19-2022 C4 COMPLEMENT 48 mg/dL Normal 10 - 50 [facility] Comment on above: Performed By: #### C 4 ####[id number] [place] [address] CBCon 02-19-2022 Erythrocyte distribution width (RBC) [Ratio] 11.8 % Normal 11.5 - 14.5 [facility] Comment on above: Performed By: #### C BC ####[facility] [place], [place] [id number] Hematocrit (Bld) [Volume fraction] 25.4 % Low 41.0 - 52.0 [facility] Comment on above: Performed By: #### C BC ####[facility] [place], [place] [id number] Hemoglobin (Bld) [Mass/Vol] 8.6 g/dL Low 13.5 - 17.5 [facility] Comment on above: Performed By: #### C BC ####[facility] [place], [place] [id number] MCHC (RBC) [Mass/Vol] 33.9 g/dL Normal 32.0 - 36.0 [facility] Comment on above: Performed By: #### C BC ####[facility] [place], [place] [id number] MCV (RBC) [Entitic vol] 90 fL Normal 80 - 100 [facility] Comment on above: Performed By: #### C BC ####[facility] [place], [place] [id number] Platelets (Bld) [#/Vol] 283 10*3/uL Normal 150 - 450 [facility] Comment on above: Performed By: #### C BC ####[facility] [place], [place] [id number] RBC 2.83 x10E12/L Low 4.50 - 5.90 [facility] Comment on above: Performed By: #### C BC ####[address] [id number] WBC (Bld) [#/Vol] 13.1 10*3/uL High 4.4 - 11.3 [facility] Comment on above: Performed By: #### C BC ####[address] [id number] COMPREHENSIVE PANELon 2021 Albumin [Mass/Vol] 3.7 g/dL Normal 3.4 - 5.0 [facility] Comment on above: Performed By: #### R ENAL #### [address] [id number] ALP [Catalytic activity/Vol] 72 U/L Normal 33 - 120 [facility] Comment on above: Performed By: #### R ENAL #### [address] [id number] ALT [Catalytic activity/Vol] 9 U/L Low 10 - 52 [facility] Comment on above: Result Comment: Lalita ents treated with Sulfasalazine may generate falsely decreased results for ALT. Performed By: #### R ENAL #### [address] [id number] Anion gap [Moles/Vol] 16 mmol/L Normal 10 - 20 [facility] Comment on above: Performed By: #### R ENAL #### [address] [id number] AST [Catalytic activity/Vol] 10 U/L Normal 9 - 39 [facility] Comment on above: Performed By: #### R ENAL #### [address] [id number] Bilirubin [Mass/Vol] 0.3 mg/dL Normal 0.0 - 1.2 [facility] Comment on above: Performed By: #### R ENAL #### [address] [id number] Calcium [Mass/Vol] 8.5 mg/dL Low 8.6 - 10.3 [facility] Comment on above: Performed By: #### R ENAL #### [address] [id number] Chloride [Moles/Vol] 106 mmol/L Normal 98 - 107 [facility] Comment on above: Performed By: #### R ENAL #### [address] [id number] Creatinine [Mass/Vol] 6.88 mg/dL High 0.50 - 1.30 [facility] Comment on above: Performed By: #### R ENAL #### [address] [id number] GFR/1.73 sq M.predicted among non-blacks MDRD (S/P/Bld) [Vol rate/Area] 11 mL/min/{1.73_m2} Abnormal >90 [facility] Comment on above: Result Comment: CALC ULATIONS OF ESTIMATED GFR ARE PERFORMED USING THE 2020 CKD-EPI STUDY REFIT EQUATION WITHOUT THE RACE VARIABLE FOR THE IDMS-TRACEABLE CREATININE METHODS. https://jasn.asnjournals.org/content//ASN.679636 2420 Performed By: #### R ENAL #### [address] [id number] Glucose [Mass/Vol] 109 mg/dL High 74 - 99 [facility] Comment on above: Performed By: #### R ENAL #### [address] [id number] HCO3 (Bld) [Moles/Vol] 23 mmol/L Normal 21 - 32 [facility] Comment on above: Performed By: #### R ENAL #### [address] [id number] Potassium [Moles/Vol] 4.9 mmol/L Normal 3.5 - 5.3 [facility] Comment on above: Performed By: #### R ENAL #### [address] [id number] Protein [Mass/Vol] 6.4 g/dL Normal 6.4 - 8.2 [facility] Comment on above: Performed By: #### R ENAL #### [address] [id number] Sodium [Moles/Vol] 140 mmol/L Normal 136 - 145 [facility] Comment on above: Performed By: #### R ENAL #### [address] [id number] Urea nitrogen [Mass/Vol] 70 mg/dL High 6 - 23 [facility] Comment on above: Performed By: #### R ENAL #### [address] [id number] Consult-Nephrologyon 022 Consult-Nephrology Service: Service: Nephrology Consult: [...] 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 He has a prescription for lisinopril that [...] Known Allergies: Objective: Objective Information: T PRBPMAPSpO2 [id number] 5% Date/Time02/19 10: 10: 10: 10: 10: [...] 02-20-20 22 AMPHETAMINE SCREEN,U Negative Normal NEGATIVE [facility] Comment on above: Result Comment: CUTO FF LEVEL: 500 NG/ML Cross-reactivity has been reported with high concentrations of the following drugs: buproprion, chloroquine, chlorpromazine, ephedrine, mephentermine, fenfluramine, phentermine, phenylpropanolamine, pseudoephedrine, and propranolol. Performed By: #### D RUG3 ####[facility] [place], [place] [id number] BARBITURATES SCREEN,U Negative Normal NEGATIVE [facility] Comment on above: Result Comment: CUTO FF LEVEL: 200 NG/ML Performed By: #### D RUG3 ####[address] [id number] BENZODIAZEPINES SCREEN,U Negative Normal NEGATIVE [facility] Comment on above: Result Comment: CUTO FF LEVEL: 200 NG/ML Performed By: #### D RUG3 ####[address] [id number] CANNABINOIDS SCREEN,U Negative Normal NEGATIVE [facility] Comment on above: Result Comment: CUTO FF LEVEL: 50 NG/ML Performed By: #### D RUG3 ####[address] [id number] COCAINE METABOLITE SCREEN,U Negative Normal NEGATIVE [facility] Comment on above: Result Comment: CUTO FF LEVEL: 150 NG/ML Performed By: #### D RUG3 ####[address] [id number] DRUG SCREEN COMMENT SEE BELOW Normal [facility] Comment on above: Result Comment: Drug screen results are presumptive and should not be used to assess compliance with prescribed medication. Contact the performing [facility] laboratory to add-on definitive confirmatory testing [...] medical directors. Performed By: #### D RUG3 ####[address] [id number] FENTANYL SCREEN,URINE Negative Normal NEGATIVE [facility] Comment on above: Result Comment: CUTO FF LEVEL: 5 NG/ML Performed By: #### D RUG3 ####[address] [id number] METHADONE SCREEN,U Negative Normal NEGATIVE [facility] Comment on above: Result Comment: CUTO FF LEVEL: 150 NG/ML The metabolite R-ikkuh-isansstinzsebx (LAAM) is not detected by this method in concentrations that would be found in the urine of patients on LAAM therapy. Performed By: #### D RUG3 ####[address] [id number] OPIATES SCREEN,U Negative Normal NEGATIVE [facility] Comment on above: Result Comment: CUTO FF LEVEL: 300 NG/ML The opiate screen does not detect fentanyl, meperidine, or tramadol. Oxycodone is not consistently detected (refer to Oxycodone Screen, Urine result). Performed By: #### D RUG3 ####[address] [id number] OXYCODONE SCREEN,U Negative Normal NEGATIVE [facility] Comment on above: Result Comment: CUTO FF LEVEL: 100 NG/ML This test will accurately detect both oxycodone and oxymorphone. Performed By: #### D RUG3 ####[address] [id number] PCP SCREEN,U Negative Normal NEGATIVE [facility] Comment on above: Result Comment: CUTO FF LEVEL: 25 NG/ML Cross-reactivity has been reported with dextromethorphan. Performed By: #### D RUG3 ####[address] [id number] Daily Progress Note - Critic al Care-NSUon 02-19-2022 Daily Progress Note - Critical Care-NSU Service: Critical Care Service: ServiceNSU Subjective Data: ID Statement: LAWSON DOYLE is a 21 year old Male who is Hospital Day # 2 and ICU Day #2. Recent events noted. Pt doing better. Off Nicardipine drip. On oral BP Meds. Appreciate Renal Consultation. Objective Data: Objective Information T PRBPMAPSpO2 [id number] 5% Date/Time02/19 18: 18: 18: 18: 18: 18:00 Range(36.4C - 37C ) (78 - 138 ) (14 - 31 ) (118 - 232 )/ (36 - 137 ) (71 - 115 ) (92% - 100% ) Highest temp of 37 C was recorded at 02/18 20:35 Pain reported at 02/19 8:00: 0 = None ---- Intake and Output ----- [facility]Dy[facility] Feb 19, 2022 2:00 [id number] Feb 19, 2022 6:00 [id number] The Intake and Output Totals for the last 24 hours are: [facility] [id number] Date: Weight/Scale Type: 19-Feb-2022 06:0082.3 kg / standing 18-Feb-2022 21:2384.4 kg / bed 18-Feb-2022 13:5286 kg ---- Intake and Output ----- Mn[facility] Feb 19, 2022 2:00 [id number] Feb 19, 2022 6:00 [id number] The Intake and Output Totals for the last 24 hours are: [employer] [id number] Physical Exam by System: Neurological: alert and [...] Performed By: #### M G #### [facility] [address] [place], [place] [id number] CHLORIDE/CREAT RATIO 149 mmol/g Creat Normal 23 - 275 [facility] Comment on above: Performed By: #### M G #### [facility] [address] [place], [place] [id number] POT/CREAT RATIO 56 mmol/g Creat Normal Not Established [facility] Comment on above: Performed By: #### M G #### [address] [id number] POTASSIUM,URINE SPOT 29 mmol/L Normal Not Established [facility] Comment on above: Performed By: #### M G #### [address] [id number] Sodium (U) [Moles/Vol] 76 mmol/L Normal Not Established [facility] Comment on above: Performed By: #### M G #### [address] [id number] SODIUM/CREAT RATIO 146 mmol/g Creat Normal Not Established [facility] Comment on above: Performed By: #### M G #### [address] [id number] UREA NITROGEN,URINE 295 mg/dL Normal Not Established [facility] Comment on above: Performed By: #### M G #### [address] [id number] UREA NITROGEN/CREAT RATIO 5.7 g/g Creat Normal Not Established [facility] Comment on above: Performed By: #### M G #### [address] [id number] OSMOLALITY,URINE SPOT 307 mOsm/kg Normal 200 - 1200 [facility] Comment on above: Performed By: #### M G #### [address] [id number] EOSINOPHIL SMEARon 2 Bacteria identified Cx Nom (Unsp spec) RARE Normal [facility] Comment on above: Performed By: #### R ENAL #### [address] [id number] EOSINOPHILS RARE Normal [facility] Comment on above: Performed By: #### R ENAL #### [address] [id number] NEUTROPHILS MODERATE Normal [facility] Comment on above: Performed By: #### R ENAL #### [address] [id number] Lab Specimen Source Urine Normal [facility] Comment on above: Performed By: #### R ENAL #### [address] [id number] FERRITINon 02-19-2022 FERRITIN 205 ug/L Normal 20 - 300 [facility] Comment on above: Performed By: #### F ERRI ####[id number] [place] [address] FOLATE, SERUMon 02-19-2022 Folate [Mass/Vol] 11.1 ng/mL Normal >5.0 [facility] Comment on above: Result Comment: Low <3.4 Borderline 3.4-5.0 Normal >5.0 . Patients receiving more than 5 mg/day of biotin may have interference in test results. A sample should be taken no sooner than eight hours after previous dose. Contact the testing laboratory for additional information. Performed By: #### F OLA2 ####[facility] [place], [place] [id number] IRON + TIBCon 02-19-2022 % SATURATION 11 % Low 25 - 45 [facility] Comment on above: Performed By: #### I RONT ####[address] [id number] TIBC 275 ug/dL Normal 240 - 445 [facility] Comment on above: Performed By: #### I RONT ####[address] [id number] Iron [Mass/Vol] 29 ug/dL Low 35 - 150 [facility] Comment on above: Performed By: #### I RONT ####[address] [id number] LIPID PANEL (CORONARY RISK 2 )on 02-19-2022 [...] dosing. Performed By: #### M G #### [address] [id number] Cholesterol in HDL [Mass/Vol] 34.4 mg/dL Abnormal [facility] Comment on above: Result Comment: . AGE VERY LOW LOW NORMAL HIGH 0-19 Y < 35 < 40 40-45 ---- 20-24 Y ---- < 40 >45 ---- >24 Y ---- < 40 40-60 >60 . Performed By: #### M G #### [address] [id number] Cholesterol in LDL [Mass/Vol] 110 mg/dL Normal [...] . Performed By: #### M G #### [address] [id number] Cholesterol in VLDL [Mass/Vol] 25 mg/dL Normal 0 - 40 [facility] Comment on above: Performed By: #### M G #### [address] [id number] Cholesterol.total/Cho lesterol in HDL [Mass ratio] 4.9 {ratio} Normal [facility] Comment on above: Result Comment: REF VALUES DESIRABLE < 3.4 HIGH RISK > 5.0 Performed By: #### M G #### [address] [id number] NON-HDL CHOLESTEROL 136 mg/dL Normal 0 - 149 [facility] Comment on above: Result Comment: AGE DESIRABLE BORDERLINE HIGH HIGH VERY HIGH 0-19 Y 0 - 119 120 - 144 >/= 145 >/= 160 20-24 Y 0 - 149 150 - 189 >/= 190 ---- >24 Y 30 MG/DL ABOVE LDL CHOLESTEROL GOAL . Performed By: #### M G #### [address] [id number] Triglyceride [Mass/Vol] 127 mg/dL Normal 0 - [...] dosing. Performed By: #### M G #### [address] [id number] MAGNESIUMon 02-19-2022 Magnesium [Mass/Vol] 1.79 mg/dL Normal 1.60 - 2.40 [facility] Comment on above: Performed By: #### M G #### [address] [id number] PARATHYROID HORMONE,INTACTon 02-19-2022 PARATHYROID HORMONE,INTACT 353.9 pg/mL High 18.5 - 88.0 [facility] Comment on above: Performed By: #### P TH ####[id number] [address] PHOSPHORUSon 02-19-2022 Phosphate [Mass/Vol] 5.1 mg/dL High 2.5 - 4.9 [facility] Comment on above: Result Comment: The performance characteristics of phosphorus testing in heparinized plasma have been validated by the individual laboratory site where testing is performed. Testing on heparinized plasma is not approved by the FDA; however, such approval is not necessary. Performed By: #### M G #### [facility] [address] [place], [place] [id number] PROT.ELECTRO,URN PATH REVIEW on 02-19-2022 PATH REVIEW-UPE Canceled Normal [facility] Comment on above: Order Comment: TEST PROT.ELECTRO,URN PATH REVIEW WAS CANCELLED, 02/19/2022 11:[id number]_[id number]. Result Comment: By h er/his signature above, the Pathologist listed as making the final interpretation certifies that she/he has personally reviewed this case. Performed By: #### P R14 ####[id number] [place] [address] PROTEIN ELECTROPHORESIS, RAN DOMon 02-19-2022 ALBUMIN % Canceled Normal [facility] Comment on above: Order Comment: TEST PROTEIN ELECTROPHORESIS, RANDOM WAS CANCELLED, 02/19/2022 11:56 QNS,PLEASE RESUBMIT.. Performed By: #### E LUSP ####[facility] [place], [place] [id number] [place] [address] ALPHA 1 GLOBULIN % Canceled Normal [facility] Comment on above: Order Comment: TEST PROTEIN ELECTROPHORESIS, RANDOM WAS CANCELLED, 02/19/2022 11:56 QNS,PLEASE RESUBMIT.. Performed By: #### E LUSP ####[facility] [place], [place] [id number] [place] [address] ALPHA 2 GLOBULIN % Canceled Normal [facility] Comment on above: Order Comment: TEST PROTEIN ELECTROPHORESIS, RANDOM WAS CANCELLED, 02/19/2022 11:56 QNS,PLEASE RESUBMIT.. Performed By: #### E LUSP ####[address] [id number] [place] [address] BETA GLOBULIN % Canceled Normal [facility] Comment on above: Order Comment: TEST PROTEIN ELECTROPHORESIS, RANDOM WAS CANCELLED, 02/19/2022 11:56 QNS,PLEASE RESUBMIT.. Performed By: #### E LUSP ####[address] [id number] [place] [address] GAMMA GLOBULIN % Canceled Normal [facility] Comment on above: Order Comment: TEST PROTEIN ELECTROPHORESIS, RANDOM WAS CANCELLED, 02/19/2022 11:56 QNS,PLEASE RESUBMIT.. Performed By: #### E LUSP ####[address] [id number] [place] [address] INTERPRETATION Canceled Normal [facility] Comment on above: Order Comment: TEST PROTEIN ELECTROPHORESIS, RANDOM WAS CANCELLED, 02/19/2022 11:56 QNS,PLEASE RESUBMIT.. Performed By: #### E LUSP ####[address] [id number] [place] [address] TOTAL PROT,URINE SPOT Canceled High 5 - 25 [facility] Comment on above: Order Comment: TEST PROTEIN ELECTROPHORESIS, RANDOM WAS CANCELLED, 02/19/2022 11:56 QNS,PLEASE RESUBMIT.. Performed By: #### E LUSP ####[address] [id number] [place] [address] SEDIMENTATION RATE, ERYTHROC YTEon 02-19-2022 SEDIMENTATION RATE, ERYTHROCYTE 69 mm/h High 0 - 15 [facility] Comment on above: Result Comment: Toni brown note new reference ranges as of 07/25/2021. Ran on alternate instrument Reference Ranges: Males: 0-15 Females: 0-20 Children under 18: 0-10 Performed By: #### E SRWS ####[address] [id number] TOTAL PROTEIN, URINE SPOTon 02-19-2022 T. PROTEIN/CREAT RATIO 3.85 mg/mg Creat High 0.00 - 0.17 [facility] Comment on above: Performed By: #### T PS2 #### [address] [id number] TOTAL PROT,URINE SPOT 201 mg/dL High 5 - 25 [facility] Comment on above: Performed By: #### T PS2 #### [address] [id number] CREATININE,URINE 52.2 mg/dL Normal 20.0 - 370.0 [facility] Comment on above: Performed By: #### T PS2 #### [address] [id number] Performed By: #### A LBSP ####[address] [id number] Performed By: #### M G #### [address] [id number] TSH WITH REFLEX TO FREE T4 I F ABNORMALon 02-19-2022 TSH Qn 1.45 m[IU]/L Normal 0.44 - 3.98 [facility] Comment on above: Result Comment: TSH testing is performed using different testing methodology at [facility] than at other [facility]. Direct result comparisons should only be made within the same method. Performed By: #### M G #### [address] [id number] UA MICROSCOPICon 02-19-2022 Mucus Ql (Urine sed) 1+ /LPF Normal [facility] Comment on above: Performed By: #### M G #### [address] [id number] RBC 58 /HPF Abnormal 0-5 [facility] Comment on above: Performed By: #### M G #### [address] [id number] WBC 1 /HPF Normal 0-5 [facility] Comment on above: Performed By: #### M G #### [address] [id number] URIC ACIDon 02-19-2022 Urate [Mass/Vol] 9.0 mg/dL High 4.0 - 7.5 [facility] Comment on above: Result Comment: Shelbie puncture immediately after or during the administration of Metamizole may lead to falsely low results. Testing should be performed immediately prior to Metamizole dosing. Performed By: #### U ANKUSH #### [address] [id number] URINALYSIS WITH CULTURE IF I NDICATEDon 02-19-2022 Appearance (U) CLEAR Normal CLEAR [facility] Comment on above: Performed By: #### P TINR #### [address] [id number] Bilirubin Ql (U) Negative Normal NEGATIVE [facility] Comment on above: Performed By: #### P TINR #### [address] [id number] Color (U) STRAW Normal STRAW,YELLOW [facility] Comment on above: Performed By: #### P TINR #### [address] [id number] Glucose Ql (U) Negative Normal NEGATIVE [facility] Comment on above: Performed By: #### P TINR #### [address] [id number] Hemoglobin Ql (U) MODERATE (2+) Abnormal NEGATIVE [facility] Comment on above: Performed By: #### P TINR #### [address] [id number] Ketones Ql (U) Negative Normal NEGATIVE [facility] Comment on above: Performed By: #### P TINR #### [address] [id number] Leukocyte esterase Test strip Ql (U) Negative Normal NEGATIVE [facility] Comment on above: Performed By: #### P TINR #### [address] [id number] Nitrite Ql (U) Negative Normal NEGATIVE [facility] Comment on above: Performed By: #### P TINR #### [address] [id number] pH (U) 7.0 [pH] Normal 5.0 - 8.0 [facility] Comment on above: Performed By: #### P TINR #### [address] [id number] Protein Ql (U) >=300 + Abnormal NEGATIVE [facility] Comment on above: Performed By: #### P TINR #### [address] [id number] Specific gravity (U) [Rel density] 1.025 Normal 1.005 - 1.035 [facility] Comment on above: Performed By: #### P TINR #### [address] [id number] Urobilinogen (U) [Mass/Vol] mg/dL Normal 0.0 - 1.9 [facility] Comment on above: Performed By: #### P TINR #### [address] [id number] RENAL BILATon 02-19-2022 US RENAL BILAT Patient Name: LAWSON DOYLE STUDY: Renal ultrasound dated 02/19/2022. INDICATION: DENNY COMPARISON: Ultrasound dated 10/23/2016. ACCESSION NUMBER(S): [id number] ORDERING CLINICIAN: FÁTIMA COOPER TECHNIQUE: Mutliplanar grayscale [...] above: Performed By: #### V TB12 ####[facility] [place], [place] [id number] Admission Risk Screen - Adul ton 02-18-2022 [...] AlertFor Ebola-like Symptoms: Isolate Patient and Notify Provider/Leach Cell Operator For Contact: Notify Provider/Leach Cell Operator Advance Directive: Advance Directive/DNRno Advance Directive Information [...] instruction; written material Cultural Considerationsnone Developmental Considerationsnone Rastafari Considerationsnone Learning Assessment (Other Learner): Other learner availableno Depression Screen: During the past month, have you often been bothered by feeling down, depressed or hopelessno During the past month, have you often had little interest or pleasure in doing thingsno Have you had any thoughts of harming anyone elseno (1) [place] Suicide: Risk Screen Not Applicable/Able to Answerable to be screened In the Past Month: Have you wished you were or could go to sleep and not wake upno(1) In the Past Month: Have you had any actual thoughts of killing yourself no(1) Lifetime: Have you ever done, started to do, or prepared to do anything to end your lifeno [place] Suicide Risknegative Adult Nutrition Screen: Have you [...] Spiritual Screen: Are there any cultural, spiritual, mandaeism practices/values/needs that are important for us to knowno CAGE: Is this an (more content not included)... Normal [facility] BASIC METABOLIC PANELon 12-0 -2021 Anion gap [Moles/Vol] 16 mmol/L Normal 10 - 20 [facility] Comment on above: Performed By: #### T PS2 #### [address] [id number] Calcium [Mass/Vol] 8.7 mg/dL Normal 8.6 - 10.3 [facility] Comment on above: Performed By: #### T PS2 #### [address] [id number] Chloride [Moles/Vol] 102 mmol/L Normal 98 - 107 [facility] Comment on above: Performed By: #### T PS2 #### [address] [id number] Creatinine [Mass/Vol] 6.42 mg/dL High 0.50 - 1.30 [facility] Comment on above: Performed By: #### T PS2 #### [address] [id number] GFR/1.73 sq M.predicted among non-blacks MDRD (S/P/Bld) [Vol rate/Area] 12 mL/min/{1.73_m2} Abnormal >90 [facility] Comment on above: Result Comment: CALC ULATIONS OF ESTIMATED GFR ARE PERFORMED USING THE 2020 CKD-EPI STUDY REFIT EQUATION WITHOUT THE RACE VARIABLE FOR THE IDMS-TRACEABLE CREATININE METHODS. https://jasn.asnjournals.org/content/early//ASN.513946 0925 Performed By: #### T PS2 #### [address] [id number] Glucose [Mass/Vol] 96 mg/dL Normal 74 - 99 [facility] Comment on above: Performed By: #### T PS2 #### [address] [id number] HCO3 (Bld) [Moles/Vol] 25 mmol/L Normal 21 - 32 [facility] Comment on above: Performed By: #### T PS2 #### [address] [id number] Potassium [Moles/Vol] 5.0 mmol/L Normal 3.5 - 5.3 [facility] Comment on above: Performed By: #### T PS2 #### [address] [id number] Sodium [Moles/Vol] 138 mmol/L Normal 136 - 145 [facility] Comment on above: Performed By: #### T PS2 #### [address] [id number] Urea nitrogen [Mass/Vol] 68 mg/dL High 6 - 23 [facility] Comment on above: Performed By: #### T PS2 #### [address] [id number] BLOOD CULTURE, BACTERIALon 1 04-21-2021 BLOOD CULTURE, BACTERIAL PATIENT: LAWSON DOYLE LOCATION: [address] [id number] : 89 AGE: SEX: M ORDERED BY: [...] above: Performed By: #### G APC1 #### [address] [id number] BLOOD CULTURE, BACTERIAL PATIENT: LAWSON DOYLE LOCATION: [place] DEY#: [id number] : 89 AGE: SEX: M ORDERED BY: [...] above: Performed By: #### G APC1 #### [address] [id number] BNPon 02-18-2022 Natriuretic peptide B (Bld) [Mass/Vol] [...] is performed using different testing methodology at [facility] than at other [facility]. Direct result comparisons should only be made within the same method. Performed By: #### T PS2 #### [address] [id number] CBC AND DIFFERENTIALon 02-18 % AUTOMATED IMMATURE GRAN 0.4 % Normal 0.0 - 0.9 [facility] Comment on above: Result Comment: Litzy ture Granulocyte Count (IG) includes promyelocytes, myelocytes and metamyelocytes but does not include bands. Percent differential counts (%) should be interpreted in the context of the absolute cell counts (cells/L). Performed By: #### T PS2 #### [address] [id number] Basophils (Bld) [#/Vol] 0.04 10*3/uL Normal 0.00 - 0.10 [facility] Comment on above: Performed By: #### T PS2 #### [address] [id number] Basophils/100 WBC (Bld) 0.3 % Normal 0.0 - 2.0 [facility] Comment on above: Performed By: #### T PS2 #### [address] [id number] Eosinophils (Bld) [#/Vol] 0.73 10*3/uL High 0.00 - 0.70 [facility] Comment on above: Performed By: #### T PS2 #### [address] [id number] Eosinophils/100 WBC (Bld) 4.6 % Normal 0.0 - 6.0 [facility] Comment on above: Performed By: #### T PS2 #### [address] [id number] Erythrocyte distribution width (RBC) [Ratio] 11.8 % Normal 11.5 - 14.5 [facility] Comment on above: Performed By: #### T PS2 #### [address] [id number] Hematocrit (Bld) [Volume fraction] 28.3 % Low 41.0 - 52.0 [facility] Comment on above: Performed By: #### T PS2 #### [address] [id number] Hemoglobin (Bld) [Mass/Vol] 9.6 g/dL Low 13.5 - 17.5 [facility] Comment on above: Performed By: #### T PS2 #### [address] [id number] Lymphocytes (Bld) [#/Vol] 2.00 10*3/uL Normal 1.20 - 4.80 [facility] Comment on above: Performed By: #### T PS2 #### [address] [id number] Lymphocytes/100 WBC (Bld) 12.7 % Normal 13.0 - 44.0 [facility] Comment on above: Performed By: #### T PS2 #### [address] [id number] MCHC (RBC) [Mass/Vol] 33.9 g/dL Normal 32.0 - 36.0 [facility] Comment on above: Performed By: #### T PS2 #### [address] [id number] MCV (RBC) [Entitic vol] 90 fL Normal 80 - 100 [facility] Comment on above: Performed By: #### T PS2 #### [address] [id number] Monocytes (Bld) [#/Vol] 0.78 10*3/uL Normal 0.10 - 1.00 [facility] Comment on above: Performed By: #### T PS2 #### [address] [id number] Monocytes/100 WBC (Bld) 4.9 % Normal 2.0 - 10.0 [facility] Comment on above: Performed By: #### T PS2 #### [address] [id number] Neutrophils (Bld) [#/Vol] 12.18 10*3/uL High 1.20 - 7.70 [facility] Comment on above: Performed By: #### T PS2 #### [address] [id number] Neutrophils/100 WBC (Bld) 77.1 % Normal 40.0 - 80.0 [facility] Comment on above: Performed By: #### T PS2 #### [address] [id number] Platelets (Bld) [#/Vol] 310 10*3/uL Normal 150 - 450 [facility] Comment on above: Performed By: #### T PS2 #### [address] [id number] RBC 3.13 x10E12/L Low 4.50 - 5.90 [facility] Comment on above: Performed By: #### T PS2 #### [address] [id number] WBC (Bld) [#/Vol] 15.8 10*3/uL High 4.4 - 11.3 [facility] Comment on above: Performed By: #### T PS2 #### [address] [id number] CREATINE KINASEon 02-18-2022 CK [Catalytic activity/Vol] 111 U/L Normal 0 - 325 [facility] Comment on above: Performed By: #### P TINR #### [address] [id number] Covid 19 Resultson 2 SARS-CoV-2 (COVID-19) RNA [...] You may also be contacted by the [facility] to see if any of your [...] or Naproxen (Aleve) can also be used. Fdxs-ycf-czugrys cough and cold medicines can be used according to the instructions on the package. Some qybf-ydl-cjtvwcc medicines also contain acetaminophen. Make sure you [...] water are not available, use alcohol-based hand promotion officer. Avoid touching your eyes, nose, and mouth [...] results. Performed By: #### G APC1 #### [address] [id number] Lab Specimen Source Throat Normal [facility] Comment on above: Performed By: #### G APC1 #### [address] [id number] HEPATIC FUNCTION PANELon Bilirubin.indirect [Mass/Vol] 0.0 mg/dL Normal 0.0 - 0.3 [facility] Comment on above: Result Comment: This is a corrected result. Previous value was - 0.0, verified at 02/18/2022 21:25 Performed By: #### P TINR #### [address] [id number] Albumin [Mass/Vol] 4.0 g/dL Normal 3.4 - 5.0 [facility] Comment on above: Performed By: #### P TINR #### [address] [id number] ALP [Catalytic activity/Vol] 84 U/L Normal 33 - 120 [facility] Comment on above: Performed By: #### P TINR #### [address] [id number] ALT [Catalytic activity/Vol] 11 U/L Normal 10 - 52 [facility] Comment on above: Result Comment: Lalita ents treated with Sulfasalazine may generate falsely decreased results for ALT. Performed By: #### P TINR #### [address] [id number] AST [Catalytic activity/Vol] 10 U/L Normal 9 - 39 [facility] Comment on above: Performed By: #### P TINR #### [address] [id number] Bilirubin [Mass/Vol] 0.2 mg/dL Normal 0.0 - 1.2 [facility] Comment on above: Performed By: #### P TINR #### [address] [id number] Protein [Mass/Vol] 7.0 g/dL Normal 6.4 - 8.2 [facility] Comment on above: Performed By: #### P TINR #### [address] [id number] INFLUENZA A/B, COVID 2019 PC R,SYMPTOMATICon 02-18-2022 INFLUENZA A, PCR Not detected Normal Not Detected [facility] Comment on above: Result Comment: Resp iratory virus testing is performed routinely by PCR for Influenza A/B and RSV. Not Detected results do not preclude Influenza A/B or RSV infections since the adequacy of sample collection or low viral burden may impact the clinical sensitivity of this test method. Performed By: #### P TINR #### [address] [id number] INFLUENZA B, PCR Not detected Normal Not Detected [facility] Comment on above: Result Comment: Resp iratory virus testing is performed routinely by PCR for Influenza A/B and RSV. Not Detected results do not preclude Influenza A/B or RSV infections since the adequacy of sample collection or low viral burden may impact the clinical sensitivity of this test method. Performed By: #### P TINR #### [address] [id number] SARS-CoV-2 (COVID-19) RNA MIGUEL+probe Ql (Unsp spec) Not detected Normal Not Detected [facility] Comment on above: Result Comment: . This test has received FDA Emergency Use Authorization (EUA) and has been verified by [facility]. This test is only authorized for the duration of time that circumstances exist to justify the authorization of the emergency use of in vitro diagnostic tests for the detection of SARS-CoV-2 virus and/or diagnosis of COVID-19 infection under section 564(b)(1) of the Act, 21 U.S.C. 360bbb-3(b)(1), unless the authorization is terminated or revoked sooner. [facility] is certified under CLIA-88 as qualified to perform high complexity testing. Testing is performed in the [facility] laboratory located at [address] [place] [address], [facility]. SARS-CoV-2/Flu/RSV Multiplex Test: Fact sheet for providers: https://www.fda.gov/media/658377/download Fact sheet for patients: https://www.fda.gov/media/139468/download Performed By: #### P TINR #### [address] [id number] Lab Specimen Source Nasal, Nasopharyngeal Normal [facility] Comment on above: Performed By: #### P TINR #### [address] [id number] LACTATEon 02-18-2022 Lactate [Moles/Vol] 0.5 mmol/L Normal 0.4 - 2.0 [facility] Comment on above: Result Comment: Shelbie puncture immediately after or during the administration of Metamizole may lead to falsely low results. Testing should be performed immediately prior to Metamizole dosing. Performed By: #### P TINR #### [address] [id number] MISCELLANEOUS CULT./SM.BACT. on 02-18-2022 MISCELLANEOUS CULT./SM.BACT. PATIENT: LAWSON DOYLE LOCATION: [address]#: [id number] : 89 AGE: SEX: M ORDERED BY: [...] Performed By: #### G APC1 #### [facility] [address] [facility], [place] [id number] PT/INRon 02-18-2022 PT Coag (PPP) [Time] 10.9 s Normal 9.8 - 13.4 [facility] Comment on above: Performed By: #### Juju G #### [facility] [address] [facility], [place] [id number] PT, INR 0.9 Normal 0.9 - 1.1 [facility] Comment on above: Performed By: #### M G #### [facility] [address] [place], [place] [id number] Patient Profile - Adult v2on 02-18-2022 Patient Profile - Adult v2 Profile: Initial Info: How to be AddressedCurtis Spoken Language PreferredEnglish Source of Informationpatient Stated Reason for AdmissionPain in right great toe with sore throat and ear pain. Primary Contact Name and NumberEduardo (Father) [phone] Wants Family/Rep Notified of Admissionno Notify PCPdo not notify PCP Informed of Patient Visiting Rightsyes Limitations on Visitors/Phone Callsnone Arrived [place] Patient Belongingsremains with patient Patient Belongings Remaining with Patientclothing; cell phone/electronics Medications Brought to Hospitalno General Health: Weight in kg84.4 kilogram(s) Weight in ddn648 pound(s) Weight Methodactual (measured) Scale Typebed Height [...] Arrangementshouse Services Anticipated at Transitionnone Anticipated Transition [place] Significant IndicatorsComplete Information Review: Allergies, Home Meds [...] performed using a different testing methodology at [facility] than at other [facility]. Direct result comparisons should only be made within the same method. Performed By: #### M G #### [address] [id number] TROPONIN I, HIGH SENSITIVITY 19 ng/L Normal [...] performed using a different testing methodology at [facility] than at [facility]. Direct result comparisons should only be made within the same method. Performed By: #### R ENAL #### [address] [id number] TROPONIN I, HIGH SENSITIVITY 20 ng/L Normal [...] performed using a different testing methodology at [facility] than at other [facility]. Direct result comparisons should only be made within the same method. Performed By: #### U ANKUSH #### [address] [id number] Triage - EDon 02-18-2022 Triage - ED [...] obeys commands Best Verbal Response: (V5) oriented Ponsford Score: 15 Patient has homicidal thoughts: no [...] Last Updated: 18-Feb-2022 19:37 by Edmund BarnesRN) [facility] CT GUIDED NEEDLE PLACEMENTon 06-08-2017 CT GUIDED NEEDLE PLACEMENT DATE OF EXAM: Jun 08 2017 11:08AMCLINICAL HISTORY/ Name: MANISH DOYLEUDY:REJI Garcia RENAL BIOPSY; 06/08/2017 11:08 amINDICATION:Hematuria, see order.COMPARISON:None.A CCESSION NUMBER(S):[id number] LUCERO CLINICIAN:DARRYN CHENEY:FAYE NT:The procedure, its indication, [...] CT-guided lower pole renal cortical biopsy. Normal [facility] PERCUTANEOUS RENAL BIOPSYon 06-08-2017 PERCUTANEOUS RENAL BIOPSY DATE OF EXAM: Jun 08 2017 11:08AMCLINICAL HISTORY/ Name: LAWSON DOYLESTUDY:REJI S RENAL BIOPSY; 06/08/2017 11:08 amINDICATION:Hematuria, see order.COMPARISON:None.A CCESSION NUMBER(S):[id number] LUCERO CLINICIAN:DARRYN CHENEY:FAYE NT:The procedure, its indication, [...] CT-guided lower pole renal cortical biopsy. Normal [facility] Pathology ([facility])on 06-08-2017 Pathology ([facility]) Copy To: DARRYN GRANT MD FINAL SURGICAL PATHOLOGY [id number] FINAL DIAGNOSISRIGHT RENAL BIOPSY: SPECIMEN ANALYSIS PERFORMED AT [facility] SEE REPORT BELOWCLINICAL HISTORY:ALPORT SYNDROME, HTN, HEMATURIAOPERATION:CT GUIDED RENAL BIOPSY RIGHT LOWER LOBESPECIMEN(S):(A) KIDNEY BIOPSY, RIGHT, SEND OUT, RIGHT LOWER LOBEPerformed at [facility], [address] [place] [id number] DESCRIPTION:Received fresh, in saline, labeled with the patient's name, hospital number,and "R Renal Bx", are two cylindrical, white to fraser to pale red, soft tissuefragments. They measure 1.1 x 0.05 x 0.05 cm and 1.1 x 0.05 x 0.05 cm. Nosections are submitted; for gross identification only. [facility] for immunohistochemistry, electron microscopy, and light microscopystudies.TASCO NSULTING COMMENT:Signed Out by:RENÉ ZHENG M.D.Reported: 06/15/2017 Normal [facility] Comment on above: Performed By: #### 6 [id number] ####[facility] [address] [place] [address] CBCon 06-07-2017 Erythrocyte distribution width Auto Ratio (RBC) 12.0 % Normal 12.0-15.4 [facility] Comment on above: Performed By: #### 6 [id number] ####[facility] [address] [place] [address] Hematocrit Auto Volume Fraction (Bld) 41.7 % Normal 37.0-49.0 [facility] Health care Comment on above: Performed By: #### 6 [id number] ####[facility] [address] [place] [address] Hemoglobin mass conc (Bld) 14.0 g/dL Normal 13.2-15.6 [facility] Comment on above: Performed By: #### 6 [id number] ####[facility] Xe[address] [place] [address] MCH Auto Entitic mass (RBC) 31.1 pg Normal 25.0-35.0 [facility] Comment on above: Performed By: #### 6 [id number] ####[facility] [address] [place] [address] MCHC Auto mass conc (RBC) 33.6 g/dL Normal 32.0-35.9 [facility] Healthcare Comment on above: Performed By: #### 6 [id number] ####[facility] [address] [place] [address] MCV Auto Entitic volume (RBC) 92.7 fL Normal 80.0-100.0 [facility] Healthcare Comment on above: Performed By: #### 6 [id number] ####[facility] Ytx[address] [place] [address] NRBC Absolute 0.00 10*3/uL Normal [facility] Healt hcare Comment on above: Performed By: #### 6 [id number] ####[facility] [address] [place] [address] NRBC Automated 0.0 /100{WBCs} Normal [facility] althcare Comment on above: Performed By: #### 6 [id number] ####[facility] [address] [place] [address] Platelet mean volume Auto Entitic volume (Bld) 10.0 fL Normal 9.9-12.1 [facility] Healthcare Comment on above: Performed By: #### 6 [id number] ####[facility] [address] [place] [address] Platelets Auto #/vol (Bld) 293 10*3/uL Normal 155-404 [facility] Healthcare Comment on above: Performed By: #### 6 [id number] ####[facility] [address] [place] [address] RBC Auto #/vol (Bld) 4.50 10*6/uL Normal 4.50-5.30 [facility] Comment on above: Performed By: #### 6 848693 ####[facility] [address] [place] [address] RDW SD 40.7 fL Normal 39.3-48.6 [facility] Healthcare Comment on above: Performed By: #### 6 761732 ####[facility] [address]jg[address] [place] [address] WBC Auto #/vol (Bld) 9.3 10*3/uL Normal 4.5-13.5 [facility] Comment on above: Performed By: #### 6 [id number] ####[facility] E[address] [facility] [place] [address] Partial Thromboplastin Timeo n 06-07-2017 aPTT Coag time (Bld) 30.3 s Normal 25.0-36.0 [facility] Comment on above: Result Comment: PLEAmy BROWN NOTE NEW REFERENCE RANGE EFFECTIVE 2017.The APTT is no longer used for monitoringUnfractionated Heparin Therapy.For monitoring Heparin Therapy, use theHeparin Assay. Performed By: #### 6 [id number] ####[facility] X[address] [facility] [place] [address] Prothrombin Timeon 8 INR Coag RelTime (PPP) 0.92 {INR} Normal 0.90-1.10 [facility] Comment on above: Result Comment: TONI BROWN NOTE NEW REFERENCE RANGE EFFECTIVE 2017 Performed By: #### 6 [id number] ####[facility] [address] [place] [address] Prothrombin time (PT) Coag time (PPP) 10.2 s Normal 9.8-12.7 [facility] Comment on above: Result Comment: TONI BROWN NOTE NEW REFERENCE RANGE EFFECTIVE 2017 Performed By: #### 6 [id number] ####[facility] [address] [place] [address] Renal Function Panelon 05-28 Albumin mass conc 4.1 g/dL Normal 3.4-5.0 [facility] Comment on above: Performed By: #### 6 [id number] ####[facility] [address] [place] [address] Anion gap 3 molar conc 10 mmol/L Normal 10-20 [facility] Comment on above: Performed By: #### 6 [id number] ####[facility] [address] [place] [address] Calcium mass conc 9.6 mg/dL Normal 8.5-10.7 [facility] Comment on above: Performed By: #### 6 734671 ####[facility] Z[address] [place] [address] Chloride molar conc 104 mmol/L Normal 98-107 [facility] Comment on above: Performed By: #### 6 [id number] ####[facility] [address] [place] [address] Creatinine mass conc 1.05 mg/dL Normal 0.50-1.30 [facility] Comment on above: Performed By: #### 6 [id number] ####[facility] [address] [place] [address] GFR/1.73 sq M.predicted MDRD vol rate/area mL/min/{1.73_m2} Normal [facility] Comment on above: Result Comment: Inte rpretation for Chronic Kidney Disease:Stages 1&2 >60 Healthy or potential kidney damage.Mild decrease of GFR.Stage 3 30-59 Moderate decrease of GFR.Stage 4 15-29 Severe decrease of GFR.Stage 5 <15 Kidney failure or on dialysis. Performed By: #### 6 [id number] ####[facility] [address] [place] [address] Glucose mass conc 94 mg/dL Normal 70-100 [facility] Comment on above: Performed By: #### 6 [id number] ####[facility] [address] [place] [address] HCO3 molar conc (Bld) 31 mmol/L Normal 21-32 [facility] Comment on above: Performed By: #### 6 [id number] ####[facility] [address]xr[address] [place] [address] Phosphate mass conc 2.9 mg/dL Normal 2.5-4.9 [facility] Comment on above: Performed By: #### 6 189447 ####[facility] [address] [place] [address] Potassium molar conc 3.9 mmol/L Normal 3.5-5.1 [facility] Comment on above: Performed By: #### 6 874596 ####[facility] [address] [place] [address] Sodium molar conc 141 mmol/L Normal 136-145 [facility] Comment on above: Performed By: #### 6 [id number] ####[facility] [address] [place] [address] Urea nitrogen mass conc 16 mg/dL Normal 6-23 [facility] Comment on above: Performed By: #### 6 [id number] ####[facility] [address] [place] [address] Urea nitrogen/Creatinine mass ratio 15 mg/mg Normal 5-25 [facility] Comment on above: Performed By: #### 6 253110 ####[facility] [address] [place] [address] Urinalysis with Reflex Cultu reon 05-28-2017 Appearance Clear Normal Clear [facility] Comment on above: Performed By: #### 6 [id number] ####[facility] [address] [place] [address] Ascorbic Acid Negative Normal Negative [facility] Comment on above: Performed By: #### 6 [id number] ####[facility] [address] [place] [address] Automated Urine Microscopy Performed Normal [facility] Comment on above: Performed By: #### 6 [id number] ####[facility] [address] [place] [address] Bacteria Rare Normal None [facility] Comment on above: Performed By: #### 6 [id number] ####[facility] [address] [place] [address] Bilirubin Negative Normal Negative [facility] Comment on above: Performed By: #### 6 721947 ####[facility] [address] [place] [address] Blood Large Abnormal Negative [facility] Comment on above: Performed By: #### 6 898693 ####[facility] [address] [place] [address] Color Yellow Normal [facility] Comment on above: Performed By: #### 6 353706 ####[facility] [address] [place] [address] Glucose Negative Normal Negative [facility] Comment on above: Performed By: #### 6 [id number] ####[facility] [address] [place] [address] Ketones Negative Normal Negative [facility] Comment on above: Performed By: #### 6 772536 ####[facility] [address] [place] [address] Leukocytes Esterase Negative Normal Negative [facility] Comment on above: Performed By: #### 6 677519 ####[facility] [address] [place] [address] Nitrite Negative Normal Negative [facility] Comment on above: Performed By: #### 6 387252 ####[facility] [address] [place] [address] pH 7.0 Normal 5.0-9.0 [facility] Comment on above: Performed By: #### 6 050813 ####[facility] [address] [place] [address] Protein mass conc 100 mg/dL Abnormal Negative [facility] Comment on above: Performed By: #### 6 [id number] ####[facility] [address] [place] [address] RBC 34 /[HPF] Normal 0-3 [facility] Comment on above: Performed By: #### 6 [id number] ####[facility] [address] [place] [address] Specific Carpenter 1.014 Normal 1.003-1.035 [facility] Comment on above: Performed By: #### 6 [id number] ####[facility] [address] [place] [address] Urobilinogen <2.0 Normal Negative [facility] Comment on above: Performed By: #### 6 [id number] ####[facility] [address] [place] [address] WBC <1 Normal 0-5 [facility] Comment on above: Performed By: #### 6 [id number] ####[facility] Xcj[address] [place] [address] Influenza A,Bon 04-17-2017 Influenza A, Rapid Ag Negative Normal Negative [facility] Healthcare Comment on above: Performed By: #### 6 [id number] ####[facility] Jpq[address] [place] [address] Influenza B, Rapid Ag Negative Normal Negative [facility] Healthcare Comment on above: Performed By: #### 6 [id number] ####[facility] Qdx[address] [place] [address] CBCon 04-09-2017 Erythrocyte distribution width Auto Ratio (RBC) 11.8 % Low 12.0-15.4 [facility] Healthcare Comment on above: Performed By: #### 2 [id number] ####[facility] Sbt[address] [place] [address] Hematocrit Auto Volume Fraction (Bld) 39.1 % Normal 37.0-49.0 [facility] Health care Comment on above: Performed By: #### 2 [id number] ####[facility] [address] [place] [address] Hemoglobin mass conc (Bld) 13.0 g/dL Low 13.2-15.6 [facility] Healthcare Comment on above: Performed By: #### 2 [id number] ####[facility] Hxf[address] [place] [address] MCH Auto Entitic mass (RBC) 31.0 pg Normal 25.0-35.0 [facility] Healthcare Comment on above: Performed By: #### 2 [id number] ####[facility] Svl[address] [place] [address] MCHC Auto mass conc (RBC) 33.2 g/dL Normal 32.0-35.9 [facility] Healthcare Comment on above: Performed By: #### 2 [id number] ####[facility] Cxg[address] [place] [address] MCV Auto Entitic volume (RBC) 93.3 fL Normal 80.0-100.0 [facility] Healthcare Comment on above: Performed By: #### 2 [id number] ####[facility] Pkn[address] [place] [address] NRBC Absolute 0.00 10*3/uL Normal [facility] Comment on above: Performed By: #### 2 [id number] ####[facility] Sqy[address] [facility] [place] [address] NRBC Automated 0.0 /100{WBCs} Normal [facility] Comment on above: Performed By: #### 2 [id number] ####[facility] Kyp[address] [place] [address] Platelet mean volume Auto Entitic volume (Bld) 9.8 fL Low 9.9-12.1 [facility] Comment on above: Performed By: #### 2 [id number] ####[facility] Xue[address] [place] [address] Platelets Auto #/vol (Bld) 269 10*3/uL Normal 155-404 [facility] Comment on above: Performed By: #### 2 [id number] ####[facility] Ncw[address] [place] [address] RBC Auto #/vol (Bld) 4.19 10*6/uL Low 4.50-5.30 [facility] Comment on above: Performed By: #### 2 573592 ####[facility] Vtj[address] [place] [address] RDW SD 40.4 fL Normal 39.3-48.6 [facility] Comment on above: Performed By: #### 2 [id number] ####[facility] Flx[address] [place] [address] WBC Auto #/vol (Bld) 5.7 10*3/uL Normal 4.5-13.5 [facility] Comment on above: Performed By: #### 2 [id number] ####[facility] Wpx[address] [place] [address] Parathyroid Hormoneon 2017 Parathyroid Hormone 20.0 pg/mL Normal 14.0-72.0 [facility] Comment on above: Result Comment: Ca L ow Ca Normal Ca High -PTH Low Suggests hypo- Suggests hyper-parathyroid calcemia ofcondition malignancycondition PTH Normal Suggests normal Suggests hyper-parathyroid parathyroidcondition PTH High Suggests secondary Suggests primaryhyperparathyroid hyperparathyroidcondition condition Performed By: #### 1 [id number] ####[facility] [address] [place] [address] Partial Thromboplastin Timeo n 04-09-2017 aPTT Coag time (Bld) 30.1 s Normal 22.1-35.3 [facility] Comment on above: Result Comment: Hepa rin Therapeutic Range: 71 - 97 sec Performed By: #### 3 [id number] ####[facility] [address]fs[address] [place] [address] Prothrombin Timeon 8 INR Coag RelTime (PPP)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 10-13-2024 Transfusion of blood product [facility] Start: 10-13-2024 Hospital admission, emergency, from emergency room, medical nature [facility] Start: 10-13-2024 Verification routine [facility] Start: 10-13-2024 Admission procedure [facility] Start: 10-13-2024 Inhalation therapy procedure [facility] Start: 10-03-2024 [facility] Start: 09-16-2024 Subsequent hospital visit by physician 09/16/2024 Hospital Encounter [facility] Resistor Tester [address] [place] [address] Viktor Vences DO [address] [place], [place] [id number] ESRD (end stage renal disease) (HCC) [N18.6] [facility] Resistor Tester Comment on above: ESRD (end stage alejandra l disease) (HCC) [N18.6] Start: 08-05-2024 Creatinine measurement Serum Creatin ine [facility] Start: 05-21-2024 Complete blood count Hemoglobin/Chino tocrit [facility] Start: 05-15-2024 BP Controlled (<130/80) BP Controlle d (<130/80) [facility] Start: 05-09-2024 [facility] Start: 05-09-2024 Creatinine measurement Serum Creatin ine [facility] Start: 04-17-2024 End: 04-04-2025 CT Abdomen and Pelvis WO contrast CT ABD/PEL WO IVCON Radiology Routine Chronic renal failure, unspecified CKD stage Expected: 04/17/2024, Expires: 04/04/2025 [facility] Work Phone: Comment on above: Expected: 04/17/2024 , Expires: 04/04/2025 Start: 04-17-2024 End: 07-17-2024 NICOTINE/COTININE NICOTINE/COTININE Lab Routine Pre-transplant evaluation for ESRD (end stage renal disease) Expected: 04/17/2024, Expires: 07/17/2024 [facility] Work Phone: Comment on above: Expected: 04/17/2024 , Expires: 07/17/2024 Start: 04-17-2024 End: 04-17-2024 Patient encounter procedure 04/17/2024 10:30 AM EST Appointment Radiology [id number] Chronic renal failure, unspecified CKD stage [N18.9] on 04/17/2024 Radiology Comment on above: CT Chronic renal didi lure, unspecified CKD stage [N18.9] on 04/17/2024 Start: 03-20-2024 Complete blood count Hemoglobin/Chino tocrit [facility] Start: 03-20-2024 Creatinine measurement Serum Creatin ine [facility] Start: 03-04-2024 End: 03-04-2024 ambulatory Cardiology [...] 1:54 PM EST Hospital Encounter Radiology [address] [place] [address] Pre-transplant evaluation for ESRD (end stage renal [...] Creatinine measurement Serum Creatin ine [facility] Start: 01-18-2024 Serum Creatinine Serum Creatinine Cl [facility] Start: 01-05-2024 Serum Creatinine Serum Creatinine Cl [facility] Start: 12-22-2023 BP Controlled (<130/80) BP Controlle d (<130/80) [facility] Start: 12-22-2023 Complete blood count Hemoglobin/Chino tocrit [facility] Start: 12-22-2023 Hemoglobin/Hematocrit Hemoglobin/Hem atocrit [facility] Start: 12-22-2023 Serum Creatinine Serum Creatinine [facility] Start: 12-04-2023 End: 12-04-2023 ambulatory Cardiology Comment on above: [facility] Start: 12-04-2023 End: 03-04-2024 BLOOD TB SCREEN BLOOD TB SCREEN Lab Routine Pre-transplant evaluation for ESRD (end stage renal disease) Expected: 12/04/2023, Expires: 03/04/2024 [facility] Comment on above: Expected: 12/04/2023 , Expires: 03/04/2024 Start: 12-04-2023 End: 03-04-2024 Chronic hepatitis differentiation between hepatitis B and C virus panel - Serum or Plasma HEP REMOTE PANEL BL Lab Routine Pre-transplant evaluation for ESRD (end stage renal disease) Expected: 12/04/2023, Expires: 03/04/2024 [facility] Comment on above: Expected: 12/04/2023 , Expires: 03/04/2024 Start: 12-04-2023 End: 03-04-2024 Cytomegalovirus IgG Ab [Units/volume] in Serum or Plasma CMV IGG ANTIBODY BL Lab Routine Pre-transplant evaluation for ESRD (end stage renal disease) Expected: 12/04/2023, Expires: 03/04/2024 [facility] Comment on above: Expected: 12/04/2023 , Expires: 03/04/2024 Start: 12-04-2023 End: 09-11-2024 ECG COMPLETE ECG COMPLETE ECG Routine Pre-transplant evaluation for ESRD (end stage renal disease) Expected: 12/04/2023, Expires: 09/11/2024 [facility] Work Phone: Comment on above: Expected: 12/04/2023 , Expires: 09/11/2024 Start: 12-04-2023 End: 03-04-2024 Hepatitis C virus RNA [Units/volume] (viral load) in Serum or Plasma by MIGUEL with probe detection HEPATITIS C RNA QUANTIFICATION BY PCR, PLASMA/SERUM Lab Routine Pre-transplant evaluation for ESRD (end stage renal disease) Expected: 12/04/2023, Expires: 03/04/2024 [facility] Comment on above: Expected: 12/04/2023 , Expires: 03/04/2024 Start: 12-04-2023 End: 03-04-2024 HIV 1+2 Ab [Presence] in Serum or Plasma by Immunoassay HIV 1/2 COMBO WITH REFLEX TO DIFFERENTIATION Lab Routine Pre-transplant evaluation for ESRD (end stage renal disease) Expected: 12/04/2023, Expires: 03/04/2024 [facility] Comment on above: Expected: 12/04/2023 , Expires: 03/04/2024 Start: 12-04-2023 End: 09-11-2024 KID K/P PANC REC HLA AB SCRN KID K/P PANC REC HLA AB SCRN ALLOGEN Routine Pre-transplant evaluation for ESRD (end stage renal disease) Expected: 12/04/2023, Expires: 09/11/2024 [facility] Comment on above: Expected: 12/04/2023 , Expires: 09/11/2024 Start: 12-04-2023 End: 03-04-2024 RUBEOLA (MEASLES)IGG RUBEOLA (MEASLES)IGG Lab Routine Pre-transplant evaluation for ESRD (end stage renal disease) Expected: 12/04/2023, Expires: 03/04/2024 [facility] Comment on above: Expected: 12/04/2023 , Expires: 03/04/2024 Start: 12-04-2023 End: 03-04-2024 SYPHILIS TOTAL W/REFLEX SYPHILIS TOTAL W/REFLEX Lab Routine Pre-transplant evaluation for ESRD (end stage renal disease) Expected: 12/04/2023, Expires: 03/04/2024 [facility] Comment on above: Expected: 12/04/2023 , Expires: 03/04/2024 Start: 12-04-2023 End: 03-04-2024 VARICELLA ZOSTER IGG VARICELLA ZOSTER IGG Lab Routine Pre-transplant evaluation for ESRD (end stage renal disease) Expected: 12/04/2023, Expires: 03/04/2024 [facility] Comment on above: Expected: 12/04/2023 , Expires: 03/04/2024 Start: 12-04-2023 End: 10-11-2024 XR Chest PA and Lateral XR CHEST 2V FRONTAL/LAT Radiology Routine Pre-transplant evaluation for ESRD (end stage renal disease) Expected: 12/04/2023, Expires: 10/11/2024 [facility] Comment on above: Expected: 12/04/2023 , Expires: 10/11/2024 Start: 12-04-2023 End: 12-04-2023 Patient encounter procedure Transplant Center Comment on above: [facility] Start: 11-29-2023 End: 11-29-2023 ambulatory 11/29/2023 9:30 AM EDT [facility] [address] [id number] [facility] Transplant Center Comment on above: [facility] Start: 11-18-2023 Covid-19 Vaccine ( season) Covid-19 Vaccine ( season) [facility] Start: 11-18-2023 Covid-19 Vaccine ( season) Covid-19 Vaccine ( season) [facility] Start: 11-18-2023 Influenza vaccination [facility] Start: 11-06-2023 Shingrix Vaccine (1 of 2) Keys grix Vaccine (1 of 2) [facility] Start: 11-01-2023 SERUM CREATININE SERUM CREATININE Cl [facility] Start: 08-11-2023 SERUM CREATININE SERUM CREATININE Cl [facility] Start: 08-06-2023 End: 08-06-2023 Admission to same day surgery center 08/06/2023 12:00 PM EDT - 08/06/2023 1:30 PM EDT Surgery [facility] Invasive Cardiology [address] [place] [address] [place] [address] [place] [address] PERC THROMBECTOMY/INFUSION FOR THROMBOLYSIS AV FISTULA,FLUORO GUIDED,INCLUSIVE OF RAD S&I [facility] Invasive Cardiology Comment on above: PERC THROMBECTOMY/IN FUSION FOR THROMBOLYSIS AV FISTULA,FLUORO GUIDED,INCLUSIVE OF RAD S&I Start: 08-06-2023 End: 08-06-2023 Perq thrmbc/nfs dialysis circuit img dx angrph PERC THROMBECTOMY/INFUSION FOR THROMBOLYSIS AV FISTULA,FLUORO GUIDED,INCLUSIVE OF RAD S&I ESRD (end stage renal disease) (HCC) 08/06/2023 12:00 PM EDT [facility] Start: 08-06-2023 Subsequent hospital visit by physician 08/06/2023 12:00 PM EDT Hospital Encounter [facility] Invasive Cardiology [address] [place] [address] [place] [address] [place] [address] ESRD (end stage renal disease) (HCC) [N18.6] [facility] Invasive Cardiology Comment on above: ESRD (end stage alejandra l disease) (HCC) [N18.6] Start: 08-04-2023 End: 11-03-2023 Basic metabolic 2000 panel - Serum or Plasma BASIC METABOLIC PANEL Lab STAT Acute renal failure, unspecified acute renal failure type (HCC) Complication of arteriovenous dialysis fistula, initial encounter ESRD (end stage renal disease) (HCC) Primary hypertension Expected: 08/04/2023, Expires: 11/03/2023 [facility] Work Phone: Comment on above: Expected: 08/04/2023 , Expires: 11/03/2023 Start: 08-04-2023 End: 08-02-2024 ECG COMPLETE ECG COMPLETE ECG STAT Acute renal failure, unspecified acute renal failure type (HCC) Complication of arteriovenous dialysis fistula, initial encounter ESRD (end stage renal disease) (HCC) Primary hypertension Expected: 08/04/2023, Expires: 08/02/2024 [facility] Comment on above: Expected: 08/04/2023 , Expires: 08/02/2024 Start: 04-25-2023 HEMOGLOBIN/HEMATOCRIT HEMOGLOBIN/HEM ATOCRIT [facility] Start: 04-25-2023 SERUM CREATININE SERUM CREATININE Cl [facility] Start: 04-20-2023 HEMOGLOBIN/HEMATOCRIT HEMOGLOBIN/HEM ATOCRIT [facility] Start: 04-20-2023 SERUM CREATININE SERUM CREATININE [facility] Start: 03-26-2023 Hepatitis B Vaccine (2 of 3 - Risk Dialysis 4-dose series) Hepatitis B Vaccine (2 of 3 - Risk Dialysis 4-dose series) [facility] Start: 03-20-2023 End: 06-19-2023 Basic metabolic 2000 panel - Serum or Plasma BASIC METABOLIC PNL Lab STAT ESRD on dialysis ([facility]) Expected: 03/20/2023, Expires: 06/19/2023 [facility] Work Phone: Comment on above: Expected: 03/20/2023 , Expires: 06/19/2023 Start: 03-20-2023 End: 03-08-2024 ECG COMPLETE ECG COMPLETE ECG STAT ESRD on dialysis ([facility]) Expected: 03/20/2023, Expires: 03/08/2024 [facility] Work Phone: Comment on above: Expected: 03/20/2023 , Expires: 03/08/2024 Start: 03-19-2023 Behavioral Health Screening Behavioral Health Screening [facility] Start: 03-19-2023 Depression Assessment Depression Ass essment [facility] Start: 01-17-2023 End: 04-18-2023 Basic metabolic 2000 panel - Serum or Plasma BASIC METABOLIC PNL Lab STAT ESRD on dialysis (HCC) Expected: 01/17/2023, Expires: 04/18/2023 [facility] Work Phone: Comment on above: Expected: 01/17/2023 , Expires: 04/18/2023 Start: 01-17-2023 End: 01-17-2024 ECG COMPLETE ECG COMPLETE ECG STAT ESRD on dialysis ([facility]) Expected: 01/17/2023, Expires: 01/17/2024 [facility] Work Phone: Comment on above: Expected: 01/17/2023 , Expires: 01/17/2024 Start: 01-04-2023 End: 03-06-2023 Basic metabolic 2000 panel - Serum or Plasma BASIC METABOLIC PNL Lab STAT Pre-op testing Expected: 01/04/2023, Expires: 03/06/2023 [facility] Work Phone: Comment on above: Expected: 01/04/2023 , Expires: 03/06/2023 Start: 01-04-2023 End: 01-02-2024 ECG COMPLETE ECG COMPLETE ECG STAT Pre-op testing Expected: 01/04/2023, Expires: 01/02/2024 [facility] Work Phone: Comment on above: Expected: 01/04/2023 , Expires: 01/02/2024 Start: 12-21-2022 End: 02-20-2023 ALGN RABBIT EPITHELIUM IGE ALGN RABBIT EPITHELIUM IGE Lab Routine Pre-op evaluation Allergy, initial encounter Expected: 12/21/2022, Expires: 02/20/2023 [facility] Work Phone: Comment on above: Expected: 12/21/2022 , Expires: 02/20/2023 Start: 12-21-2022 End: 12-22-2023 Echocardiography ECHO Cardiology Routine ESRD on dialysis (HCC) Preop cardiovascular exam Expected: 12/21/2022, Expires: 12/22/2023 [facility] Work Phone: Comment on above: Expected: 12/21/2022 , Expires: 12/22/2023 Start: 12-21-2022 End: 02-20-2023 STRONGYLOIDES IGG BL [facility] Work Phone: Comment on above: Expected: 12/21/2022 , Expires: 02/20/2023 Start: 11-17-2022 Covid-19 Vaccine () Covid-19 Vaccine () [facility] Start: 11-17-2022 Influenza vaccination C [facility] Start: 11-09-2022 End: 01-09-2023 Basic metabolic 2000 panel - Serum or Plasma BASIC METABOLIC PNL Lab STAT ESRD on dialysis (HCC) Expected: 11/09/2022, Expires: 01/09/2023 [facility] Work Phone: Comment on above: Expected: 11/09/2022 , Expires: 01/09/2023 Start: 11-09-2022 End: 10-28-2023 ECG COMPLETE ECG COMPLETE ECG STAT ESRD on dialysis (HCC) Expected: 11/09/2022, Expires: 10/28/2023 [facility] Work Phone: Comment on above: Expected: 11/09/2022 , Expires: 10/28/2023 Start: 03-28-2022 Patient encounter procedure [facility] Medicine [place] Start: 03-21-2022 End: 03-22-2023 amLODIPine (NORVASC) 10 mg Oral Tablet Daily ; TabletDOSE = 10 mg Oral Daily Start: 21-Mar-2022 End: 21-Mar-2023 Ordered: 21-Mar-2022 Darryn Grant Intent [facility] Start: 03-19-2022 DEPRESSION ASSESSMENT DEPRESSION ASS ESSMENT [facility] Start: 03-17-2022 End: 03-18-2023 HYDROmorphone Injectable [...] [facility] Start: 12-10-2021 Urine microalbumin profile [facility] Start: 11-17-2021 Influenza vaccination INFLUENZA (#1) [facility] Start: 2019 Hepatitis B Vaccine (1 of 3 - Risk Dialysis 4-dose series) Hepatitis B Vaccine (1 of 3 - Risk Dialysis 4-dose series) [facility] Start: 2018 HEPATITIS A (1 of 2 - Risk 2-dose series) HEPATITIS A (1 of 2 - Risk 2-dose series) [facility] Start: 2018 Hepatitis A Vaccine (1 of 2 - Risk 2-dose series) Hepatitis A Vaccine (1 of 2 - Risk 2-dose series) [facility] Start: 2018 SHINGRIX VACCINE (1 of 2) KEYS GRIX VACCINE (1 of 2) [facility] Start: 2018 Urine microalbumin profile [facility] Start: 2017 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 ANNUAL PCP TEAM CHRONIC DISEASE VISIT [facility] Start: 2017 Anxiety Screening Anxiety Screening [facility] Start: 2017 BP CONTROLLED (<130/80) BP CONTROLLE D (<130/80) [facility] Start: 2017 Depression Screening Depression Scre ening [facility] Start: 2017 HEPATITIS C SCREENING HEPATITIS C [facility] Start: 2017 Hepatitis C screening Hepatitis C [facility] Start: 2017 HIV SCREENING HIV SCREENING [facility] Start: 12-02-2015 HPV Vaccine (2 - Mal e 3-dose series) HPV Vaccine (2 - Male 3-dose series) [facility] Start: 12-02-2015 HPV Vaccines (2 - Ma le 3-dose series) HPV Vaccines (2 - Male 3-dose series) [facility] Start: 2015 Meningococcal B Vacc ine: Consider Based On Risk (1 of 2 - Patient Seeks Protection) Meningococcal B Vaccine: Consider Based On Risk (1 of 2 - Patient Seeks Protection) [facility] Start: 2015 MENINGOCOCCAL B: 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 (1 of 2 - Patient Seeks Protection) MENINGOCOCCAL B: Consider based on risk (1 of 2 - Patient Seeks Protection) [facility] Start: 2014 HPV Vaccine (1 - Mal e 3-dose series) HPV Vaccine (1 - Male 3-dose series) [facility] Start: 2013 PEDS TO ADULT TRANSI TION ANNUAL ASSESSMENT PEDS TO ADULT TRANSITION ANNUAL ASSESSMENT [facility] Start: 2011 PEDS TO ADULT TRANSI TION INITIAL DISCUSSION PEDS TO ADULT TRANSITION INITIAL DISCUSSION [facility] Start: 2010 HPV VACCINE (1 - Mal e 2-dose series) HPV VACCINE (1 - Male 2-dose series) [facility] Start: 2009 MENINGOCOCCAL B: 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 (1 of 2 - Risk Bexsero 2-dose series) MENINGOCOCCAL B: Consider based on risk (1 of 2 - Risk Bexsero 2-dose series) [facility] Start: 02-24-2008 HPV VACCINE (1 - Mal e 2-dose series) HPV VACCINE (1 - Male 2-dose series) [facility] Start: 2005 PNEUMOCOCCAL (1 - PCV) PNEUMOCOCCAL (1 - PCV) [facility] Start: 11-30-2004 Varicella vaccination Varicell a Vaccines (1 of 2 - 2-dose childhood series) [facility] Start: 02-24-2000 HEPATITIS A (1 of 2 - Risk 2-dose series) HEPATITIS A (1 of 2 - Risk 2-dose series) [facility] Start: 1999 COVID-19 VACCINE (#1) COVID-19 VACCI NE (#1) [facility] Start: 1999 HEPATITIS B (1 of 3 - 3-dose series) HEPATITIS B (1 of 3 - 3-dose series) [facility] Start: 1999 HIV screening HIV Screening [facility] Start: 1999 Yearly Adult Physical Yearly Adult P [facility] ACS (acute coronary syndrome) ACS (acute [...] [facility] Work Phone: ECG 12 Lead [facility] Service Ar ea Work Phone: Comment on above: As needed until disc ontinued starting 01/05/2025 ECG COMPLETE ECG COMPLETE ECG STAT Renal failure, unspecified chronicity Preoperative examination Screening for venereal disease 12/21/2022 10:51 AM EDT [facility] Work Phone: End: 05-09-2023 Electrocardiogram, 12-lead [facility] Service Area Work Phone: Comment on [...] circuit w/trluml balo angiop INTRO NEEDLE/CATH FOR DISPENSING AND MEASURING OPTICIAN AV FISTULA UPPER EXTREMITY VENOUS SIDE W/ANGIO,FLUORO GUIDED,INCLUSIVE OF RAD S&I ESRD (end stage renal disease) ([facility] ME CATH End: 12-21-2023 KID K/P PANC REC INIT W/U KID K/P PANC REC INIT W/U ALLOGEN Routine Renal failure, unspecified chronicity Preoperative examination Screening for venereal disease 1 Occurrences starting 12/21/2022 until 12/21/2023 [facility] Work Phone: Comment on above: 1 Occurrences starti ng 12/21/2022 until 12/21/2023 KID K/P PANC REC INIT W/U KID K/ P PANC REC INIT W/U ALLOGEN Routine Renal failure, unspecified chronicity Preoperative examination Screening for venereal disease 12/21/2022 11:37 AM EDT [facility] Work Phone: Magnesium [Mass/volu me] in Serum or Plasma Magnesium Lab Routine Daily (Lab) until discontinued starting 01/06/2025, 1 completed [facility] Work Phone: Comment on above: Daily (Lab) until di scontinued starting 01/06/2025, 1 completed Patient Education [facility] Work Phone: Phosphate [Mass/volu me] in Serum or Plasma Phosphorus Lab Routine Daily (Lab) until discontinued starting 01/06/2025, 1 completed [facility] Work Phone: Comment on above: Daily (Lab) until di scontinued starting 01/06/2025, 1 completed End: 01-27-2023 Pulse oximetry, continuous Pulse oximetry, continuous Respiratory Care STAT Continuous until discontinued starting 01/27/2023 [facility] Service Area Work Phone: Comment on above: Continuous until dis continued starting 01/27/2023 RECIPIENT NOTIFICATION RECIPIENT NOTIFICATION ALLOGEN Routine Renal failure, unspecified chronicity Preoperative examination Screening for venereal disease Ordered: 12/21/2022 [facility] Work Phone: Comment on above: Ordered: 12/21/2022 End: 01-09-2025 Renal function 2000 panel - Serum or Plasma Renal Function Panel Lab Routine Daily (Lab) for 3 Occurrences starting 01/07/2025 until 01/09/2025 [facility] Area Work Phone: Comment on above: [...] (HCC) 1 Occurrences starting 03/24/2022 until 03/24/2023 [facility] Work Phone: Comment on above: 1 Occurrences starti ng 03/24/2022 until 03/24/2023 End: 05-23-2023 US A/V FISTULA GRAFT UNL VAS LAB US A/V FISTULA GRAFT UNL VAS LAB Vascular Lab Routine ESRD (end stage renal disease) (HCC) 1 Occurrences starting 05/22/2022 until 05/23/2023 [facility] Work Phone: Comment on above: 1 Occurrences starti ng 05/22/2022 until 05/23/2023 [facility] CATH [facility] OR Immunizations Immunization Date Immunization Notes Care Provider [facility] 09-11-2023 measles, mumps and rubella virus vaccine Bert Begum RN [facility] 09-11-2023 varicella virus vaccine Bert morris RN [facility] 02-26-2023 Hepatitis B vaccine (recombinant), CpG adjuvanted [facility] Work Phone: [facility] 05-22-2022 pneumococcal polysaccharide vaccine, 23 valent Shannan Schwartz RN [facility] 03-27-2022 pneumococcal (PCV20) vaccine, 20 valent (PREVNAR 20) Shannan Schwartz RN [facility] 11-14-2016 meningococcal vaccin e of unknown formulation and unknown serogroups Bert Begum RN [facility] 11-04-2015 HPV, unspecified formulation Ivette Manzano MD Work Phone: [facility] Work Phone: 12-11-2011 tetanus toxoid, redu shira diphtheria toxoid, and acellular pertussis vaccine, adsorbed Bert Begum RN [facility] Payers Date Payer Category Payer Medicare [id number] 2024 Unknown 2024 Self-pay 2023 [facility] Cross [facility] [id number] 2023 Medicare ACCIDENT RELATED NON-MEDICARE ACCIDENT RELATED NON-MEDICARE [id number] 2023-Present [address] [place] [address] [id number] 2022 Private Health Insurance HUMANA HUMANA MEDICAID [facility] [id number] 2022-Present [address] [address] [place] [address] Medicaid [id number] 2022 Medicaid [id number] 2022 Medicaid [id number] 2021 Unknown 2021 Unknown [id number] 1999 Unknown [id number]. 1067 1999 Unknown [id number] [id number]. 8 1999 Unknown [id number] 2.16.840.1.336546.3.579.2. 1068 1999 Unknown [id number] 2.16.840.1.608579.3.579.2. 1243 1999 Unknown [id number] 2.16.840.1.047396.3.579.2. 1243 1999 Unknown [id number] 2.16.840.1.771964.3.579.2. 1246 1999 Unknown [id number] 2.16.840.1.772877.3.579.2. 902 Unknown [id number] Unknown [id number] 2.16.840.1.290578.3.579.2. 462 Unknown [id number] 2.16.840.1.581172.3.579.2. 462 Unknown [id number] 2.16.840.1.777038.3.579.2. 462 Unknown [id number] 2.16.840.1.374530.3.579.2. 462 Unknown [id number] 2.16.840.1.162323.3.579.2. 462 Unknown [id number] 2.16.840.1.683461.3.579.2. 462 Unknown [id number] [id number]. 462 Social History Date Type Detail Facility [facility] Tobacco smoking consumption unknown [facility] Work Phone: Start: 2000 Sex Assigned At Not on file [facility] Start: 03-27-2022 End: 03-20-2023 Tobacco smoking status NHIS Occasional tobacco smoker [facility] Start: 03-19-2017 History of tobacco use Cigarette Smo ker [facility] Start: 03-27-2022 End: 01-05-2025 Tobacco use and exposure Smokeless tobacco non-user [facility] History of tobacco use Cigar Smoker [facility] Work Phone: Start: 04-20-2022 End: 08-06-2023 Alcohol intake Current drinker of alcohol (finding) [facility] Start: 04-20-2022 Alcohol Comment [facility] Start: 09-13-2022 End: 01-05-2025 History of Social function [facility] Start: 09-13-2022 End: 01-05-2025 Tobacco use panel [facility] Start: 01-17-2023 End: 05-09-2023 Exposure to SARS-CoV-2 (event) Yes [facility] Start: 2000 [facility] Start: 03-06-2024 Gender identity Identifies as male gender (finding) [facility] Work Phone: Start: 02-25-2024 End: 03-06-2024 Exposure to SARS-CoV-2 (event) Not sure [facility] Start: 10-03-2024 End: 10-13-2024 Tobacco smoking status NHIS Ex-smoker (finding) [facility] Start: 01-05-2025 Tobacco smoking stat [facility] Never smoked tobacco [facility] Work Phone: Start: 02-10-2022 Sex Male (finding) [facility] Goals Date Patient Goal Desired Activity /State Personal health goal Functional Status Date Assessment Result Facility 01-06-2025 Functional status 162/95 025 12:44 PM EDT Interface, Masimo Data In [facility]/[address] [place] [address] 01-06-2025 Vital signs 95 01/06/2025 12 :44 PM EDT Interface, Masimo Data In [facility] Work Phone: 01-05-2025 [facility] Work Phone: 01-05-2025 Total score [AUDIT-C] 1 01/06/20 25 9:18 PM EDT Alexa Cruz, TASHIA [facility] Work Phone: 01-05-2025 Patient Health Questionnaire 2 item (PHQ-2) [Reported] [facility] Work Phone: 01-05-2025 Functional status [facility] Work Phone: 01-05-2025 Functional status 1 [facility] Work Phone: 01-05-2025 [facility] Work Phone: 01-05-2025 [facility] Work Phone: 01-05-2025 Functional status [facility] Work Phone: 01-05-2025 [facility] 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 rating scale screener - recent [C-SSRS] [facility] Work Phone: 10-14-2024 Functional status Ambulates [facility] Work Phone: Functional observable [facility] Mental Status Date Assessment Result Facility 10-13-2024 Cognitive function Voice/Name Nelly Hamm [facility] Work Phone: 03-19-2022 Cognitive functi ons [id number] [facility] 02-21-2022 Cognitive functi ons :29 [facility] Clinical Notes 02-18-2022 to 01-06-2025 Keara Swann RN - 01/06/2025 4:20 PM EDTMariadna Swann RN - 01/06/2025 4:20 PM EDTCare Plan - Keara Swann RN - 01/06/2025 3:42 PM EDTCare Plan - Keara Swann RN - 01/06/2025 3:42 PM EDT Note Date & Type Note Facility 01-06-2025 Nurse Note Patient expressed wanting to leave AMA. Rebecca DIRECTOR OF CLINICAL EDUCATION at bedside. AMA form filled out. Patients IV and telemetry removed. [facility] Work Phone: 01-06-2025 Nurse Note Patient expressed wanting to leave AMA. Rebecca DIRECTOR OF CLINICAL EDUCATION at bedside. AMA form filled out. Patients [...] exacerbated and prevent overall improvement and discharge [facility] Work Phone: 01-06-2025 Miscellaneous Notes The [...] Post Acute Services Other (Comment) (dialysis @ [facility] M-W-F) Expected Discharge Disposition Home [...] note, this documentation is completed using the [employer] Dictation system (voice recognition software). There may [...] is note is different from the original. Located Within [facility] Nephrology Consult Note Reason for [...] file Stress: No Stress Concern Present (01/05/2025) [place] [employer] - Occupational Stress Questionnaire [...] 05/09/2023, 03/18/2022, CT AP 03/04/2022. ACCESSION NUMBER(S): [id number] ORDERING CLINICIAN: MEKHI WEEMS TECHNIQUE: CT of [...] 05/09/2023,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 Status: [...] commitment needs to be verified. Contact Number: [phone] Health Status and Availability of Caregiver: Eduardo is reported to be in good health. 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 Caregiver Mental Health: Per pt, no. Secondary Caregiver: Nina (pt's sister) - Nina's commitment was verified via phone contact. Contact Number: [phone] Health Status and Availability: Nina reports being in good health and she is 34yrs old. 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 Nina reports she can take time off, if and when needed in order to assist with caregiver/transportation support. Nina reports she lives [id number] from pt.. 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 Pt needs to keep SW updated regarding his SSD determination. Body Image/Scar: No IMPRESSIONS/RECOMMENDATIONS Transplant psychologist social spoke with Lawson Doyle via telephone. At [...] discussed the need to have a caregiver multimedia artist for 2 weeks post transplant. Lawson Doyle was advised that it is imperative to adhere to the medical regimen and recovery restrictions. Alba indicated understanding of this information. Lawson Doyle had the opportunity to discuss any issues and questions. Patient was given information about the kidney transplant process and fund raising options. The patient was given the phone number of the transplant psychologist social to address future concerns. YESI Braun-S Transplant Plate Mill Mill Hand documented in this encounterMercy Health Clermont Hospital10-02-2023 Miscellaneous Notes* Telephone Encounter - Digna Burgos MA - 12/18/2022 2:34 PM EDT Left message for patient reminding of appointment on 12/21/2022. Stated that it is important to arrive on time as if late they may be asked to reschedule the entire day. Callback number was provided Digna Burgos MA documented in this encounterMercy Health Clerm[facility] Hospital08-21-2023 Miscellaneous Notes* Telephone Encounter - German Trotter RN - 11/06/2022 12:15 PM EDT Pt returned call No issues using fistula, received treatment today Cancelled OV with Dr Cooper as well as previously scheduled fistulogram on 11/09 * Telephone Encounter - Germna Trotter RN - 11/06/2022 9:46 AM EDT Called pt, no answer Left detailed VM asking if pt is having issues with fistula after 10/31 fistulogram If no issues, can cancel appt today on 11/06 Left call back number German Trotter RN documented in this encounterMercy Health Clermont Hospital08-14-2023 Miscellaneous Notes* Telephone Encounter - Dona Gil - 10/30/2022 11:27 AM EDT Spoke with patient and scheduled him for a TDC placement on Monday October 31, [address] Cooper at [facility]. Patient advised to arrive at 1:00 PM, NPO for 6 hours and will need a pick up truck driver. Dona Gil * Telephone Encounter - German Trotter RN - 10/30/2022 11:15 AM EDT Called and spoke to Michell No availability for TDC insertion today Informed her that Dr. Cooper would like TDC insertion tomorrow then OV if okay with nephrology She states that she will discuss with nephrology Manager Site will call pt and arrange procedure German Trotter RN * Telephone Encounter - Dona Gil - 10/30/2022 10:07 AM EDT Michell [phone] from [facility] called and stated that patient is not able to get any treatment.He is scheduled for a Fistulagram on November 09, 2022. Please advise documented in this encounterMercy Health Clermont Hospital08-10-2023 Miscellaneous Notes* Telephone Encounter - Chrissie Siddiqui - 10/26/2022 12:05 PM EDT [facility] called and said patient has had a drop in access flows and prolonged bleeding after dialysis and requested a fistulgram be scheduled on a or with Dr Cooper. Scheduled for 11/09 at [facility]. Reviewed all equipment operator/laborer instructions, patient verbalized understanding. Per patient he doesn't take asa or blood thinners. documented in this encounterMercy Health Clermont Hospital08-09-2023 Miscellaneous Notes* Telephone Encounter - Chrissie Siddiqui - 10/25/2022 3:37 PM EDT Yuliet from [facility] called and stated that patient needs to be scheduled for fistulogram due to dopin access and prolonged bleeding. Scheduled 11/[address] Cooper at Cath. Patient has dialysis MWFa. Called patient left for him to call us back to schedule procedure. documented in this encounterMercy Health Cl[facility]ont Hospital08-08-2023 History of Present illness Narrative* Shannan Schwartz RN - 10/24/2022 1:40 PM EDT New Referral Referring Physician Darryn Grant Organ Type kidney ESRD Yes Al[place] Syndrome Hx: HTN Dialysis Dependant? Yes 03-18-22 Name of Dialysis Facility: [facility] Diabetes no Smoking Quit 05/2022 1ppweek x 2 yrs Current BMI 23.7 Previous Transplant no Date of Last Transplant N/a Currently Listed? Referral at [facility] Willing to accept blood transfusion? yes Potential [...] appointment Shannan Schwartz RN Pre-Kidney & Pancreas Electric Meter Technician [facility] documented in this encounterMercy Health Cl[facility] Hospital07-03-2023 NoteTC received second referral it was scanned in to media and and referral received letter sent. Lou Michael RNUnAccess Hospital Dayton06-28-2023 Procedure note* Lui Cooper MD - 09/13/2022 6:06 PM EDTProcedure(s): F REMOVAL TUNNELED CV CATHETER Pre-Procedure Diagnose(s): Mechanical complication of dialysis catheter, initial encounter (HCC) Post-Procedure Diagnose(s): Mechanical complication of dialysis catheter, initial encounter (HCC) OPERATIVE/PROCEDURE REPORT LOG ID: * No surgery found * SURGERY/PROCEDURE DATE:09/13/22 INCISION/PROCEDURE START TIME: 1603 INCISION CLOSE/PROCEDURE END TIME: 1611 SURGEON(S)/PROCEDURALIST(S) AND PRODUCTION CLERKS SUPERVISOR(S): Lui Cooper MD SURGERY/PROCEDURE(S): Removal of tunneled [...] 6:07 PM documented in this encounterMercy Health Cl[facility] Hospital06-27-2023 Miscellaneous Notes* Telephone Encounter - Ector Casasdomingojose m - 09/12/2022 3:59 PM EDT Called and spoke with patient regarding kidney transplant, intake completed, and to nurse coordinator for review. Ector Casasdomingojose m Pre- transplant intake form Date: 09/12/2022 Spoke with: Patient EMAIL: [email or web address] Gerald M/F: M Work Status: Not working Race: White Marital Status: Single Ht/Wt: BMI: 5'10" 165 Lbs; BMI = 23.7 Weight loss without trying? No Decreased Appetite? No Nutrition = 0 Assistive devices? No Activity Level? Moderate Smoking? Yes Quit date? Mach 2022 Years? 2 Packs? 1 pack per week O2? COPD/Emphysema? No to all Transfusions, Willing to accept? Yes Dialysis? [facility] [facility] [place], [place] Days? -- Start date?03/18/2022 Referring doctor? DARRYN GRANT Previous Transplant? No Nephrectomy? No Evaluation elsewhere? Listed? No No Kidney Biopsy? Liver Biopsy? Yes - 2017 done at [place], [place] No Cirrhosis? Hepatitis? HIV? Cancer? No No No No Diabetes 1 or 2? No Hypertension? CAD? GA? CABG/STENTS? Yes No No No Stress? Echo? Cath? No No No DVT/PE? No CVA/TIA? No Lupus? NoSickle/Trait? NA Blood thinner? No ETOH? Drug use? Psych disorder? 1 beer per year No No Prior Surgeries? Kid Bx, Fistula (R) Arm and uses for dialysis, Tongue clipped as a child Living Donors? No documented in this [facility] Miscellaneous Notes* Telephone Encounter - Ector [...] Ector Red documented in this encounterMer[facility]06-20-2023 Miscellaneous Notes* Telephone Encounter - MAGDALENA Galan - 09/05/2022 1:18 PM EDT Pt returning [place] for intake documented in this [facility]06-16-2023 Miscellaneous Notes* Telephone Encounter - Ector Red - 09/01/2022 9:25 AM EDT Called Lawson Doyle without success regarding their previous call-Kidney Transplant Referral. Voicemail message was left for patient to call our office. Ector Red * Telephone Encounter - MAGDALENA Galan - 08/29/2022 1:25 PM EDT Pt returning call for intake. documented in this [facility]06-08-2023 Miscellaneous Notes* Telephone Encounter - German Trotter RN - 08/24/2022 3:50 PM EDT [facility] to [facility] at [facility]. No issues using R AVF, OK to remove. German Trotter RN documented in this [facility]03-20-2023 Miscellaneous Notes* Telephone Encounter - Nickie Larson - 06/05/2022 10:32 AM EDT Procedure date: 06/06/2022 Spoke with: Patient Arrival time: 8:30 am Hospital: [facility] first: No NPO time: 6 hours Must have responsible adult pick up truck driver. May take Blood pressure and heart medications in the morning with small sip of water. documented in this encounterMer[facility]03-13-2023 History of Present illness Narrative* Lui Cooper MD - 05/29/2022 11:41 AM EDT Images from the original note were not included. [facility] DEPARTMENT OF VASCULAR SURGERY OUTPATIENT VISIT DATE [...] reviewed for today's visit: Non-Invasive Vascular Laboratory [facility] Upper Extremity Arterial Duplex Unilateral - [...] RVT Ordering physician: LUI COOPER Interpreting physician: Liu Cooper MD, RPVI ESSION: Mr. 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 Otherwise good flowin avf with adequate diameter for cannulation. Will proceed with fistulogram and intervention polina.Patient can return to work and will arrange for fistulogram. Fistula should be usable for HD immediately after planned DISPENSING AND MEASURING OPTICIAN. Medical Decision Making: Medical Decision Making Level: 1 - N/A SIGNATURE: Lui Cooper MD PATIENT NAME: Lawson Doyle DATE: May 29, 2022 TIME: 11:42 AM documented in this encounterMer[facility]03-13-2023 Miscellaneous Notes* Telephone Encounter - Dona Gil - 05/29/2022 11:31 AM EDT Patient in office today and we scheduled a Right arm fistulagram with Dr. Cooper on Monday June 06, 2022. Patient is aware we will call him the day before with arrival time, NPO for 6 hours prior toprocedure and will need a pick up truck driver. Dona Gil documented in this encounterMer[facility]03-06-2023 History of Present illness Narrative* Lui Cooper MD - 05/22/2022 11:28 AM EST Images from the original note were not included. Heart , V[facility] Thor[facility] [place] DEPARTMENT OF VASCULAR SURGERY OUTPATIENT VISIT DATE [...] 11:28 AM documented in this encounterMercy [facility]02-02-2023 Instructions* Patient Instructions* Kathy Kolb PA-C - 04/20/2022 9:29 AM EST PATIENT PREOPERATIVE INSTRUCTIONS Lui Cooper* has scheduled you for your procedure at this surgery center: [facility]: [phone] --[address] [address]. Please check in on the1st floor at [...] please check with your dialysis center or nurse sane to see if any adjustments need to [...] Procedures: - YOU MUST HAVE A RESPONSIBLE BROWNFIELD REDEVELOPMENT SPECIALIST TAKE YOU HOME. A LEGAL ASSOCIATE OR WARPER TENDER CANNOT BE MADE A RESPONSIBLE BROWNFIELD REDEVELOPMENT SPECIALIST. - We recommend that a responsible person [...] Advance Directive, please fax a copy to [phone] or email to for it to be [...] Kolb PA-C documented in this encounterMer[facility]02-02-2023 History and physical note * Kathy Kolb PA-C - 04/20/2022 9:22 AM EST HISTORY AND PHYSICAL EXAMINATION SERVICE DATE: 04/20/2022 SERVICE TIME: 9:58 AM PRIMARY CARE PHYSICIAN: No primary care provider on file. REASON FOR VISIT: Lawson Doyle is a 22 year old male who is scheduled for Procedure(s) with comments: CREATION FISTULA ARTERIOVENOUS EXTREMITY UPPER (Right) - No radiology specialist needed at the request ofDr. Lui Cooper [...] ESRD and currently on HD via [facility] M[facility]. Denies any CP, SOB, fever, chills, n/v/d, GUERRIER or dizziness. Recommended above procedure and elects to proceed. REVIEW OF SYSTEMS: General: No weight loss, malaise or fevers. Neurological: No history of TIA's, stroke, SILVER LAP MACHINE TENDER tumor, impaired sensorium, hemiplegia, paraplegia orquadraplegia. No neurological symptoms or problems. Respiratory: No history of current cough or dyspnea, or pneumonia in the past 6 weeks. No history of respiratory/pulmonary symptoms or problems. Cardiovascular: Positive for: hypertension Negative for: abdominal aortic aneurysm, AICD/PPM, angina, anticoagulation therapy, arrhythmia, atrial fibrillation, CAD, chest pain, CHF, congenital heart defect, DVT/PE, hyperlipidemia, recent GA, murmur/valvular heart disease, PTCA, PVD, open heart [...] Prior to Admission medications as of 04/20/22 1337 Medication Sig Last Dose Taking amLODIPine (NORVASC) [...] or any previous visit (from the past 96676 hour(s)). EKG 03/18/2022 (Care Everywhere) Ventricular Rate 75 Atrial Rate 75 P-R Interval 126 QRS Duration 98 Q-T Interval 376 QTC Calculation(Bazett) 419 P Haywood 50 R Haywood 35 T Haywood -8 QRS Count 12 Q Onset 215 [...] have a large neck STOP-Bang Score: 2 [id number] Score: Hypertension history: Yes [id number] Score: 1 ASA Class: 3 ANESTHESIA FINDINGS: [...] PAGER/CONTACT #: documented in this encounterMercy [facility]01-27-2023 Miscellaneous Notes* Telephone Encounter - Carol Brown - 04/14/2022 2:08 PM EST Patient unable to move surgery sooner * Telephone Encounter - Carol Brown - 04/14/2022 1:52 PM EST Left message for patient to call office to see if he would like to move his AVF creation up to 04/20/2022. documented in this encounterMercy [facility]01-09-2023 Miscellaneous Notes* Telephone Encounter - Dona Gil - 03/27/2022 10:56 AM EST Patient is scheduled for a right arm AVF creation with Dr. Cooper on Monday April 25, 2022. No blood thinners. He is aware we will call him the day before with arrival time. Dona Gil documented in this encounterMercy [facility]01-09-2023 History of Present illness Narrative* Lui Cooper MD - 03/27/2022 10:10 AM EST Images from the original note were not included. Heart , V[facility] Thor[facility] [place] DEPARTMENT OF VASCULAR SURGERY OUTPATIENT VISIT DATE March 27, 2022 OUTPATIENT VISIT TYPE CONSULTATION SERVICE DATE: 03/27/2022 SERVICE TIME: 10:10 AM PRIMARY CARE PHYSICIAN: No primary care provider on file. REFERRING PROVIDER: Darryn Grant (Marcelo) [address] [address] Consult requested for an opinion regarding the [...] reviewed for today's visit: Non-Invasive Vascular Laboratory [facility] Upper Extremity Mapping for Dialysis Access [...] 10:10 AM documented in this encounterMercy [facility]01-05-2023 NoteSend Summary: Discharge Summary Providers: Provider RoleProvider Name Ivette Becerra AttendingDanilo, Brook Kingsley ConsultingMayra, Benoit Morillo, Tri Arthur, Ivette Herzog Note Recipients: Ivette Manzano MD - [phone] [preferred] Discharge: Summary: Admission Date: .18-Feb-2022 13:08:00 Discharge Date: 21-Feb-2022 Attending Physician at Discharge: Brook Carrasco Admission Reason: renal failure, hypertensive urgency(1) Final Discharge Diagnoses: Primary hypertension Procedures: none Condition at Discharge: Satisfactory Disposition at Discharge: .Home Vital Signs: T PRBPMAPSpO2 Value36.95688042/1106023% Date/Time02/21 12: 12: 12: 12: 20: 12:22 [...] with appropriate follow-up. Immunizations: Immunizations: 18-Feb-2022 DTaP- Mvrobpake-Rrdukge-qpxvrhsrj Pertussis: Immunizations, 2019 18-Feb-2022 SARS-CoV-2 (COVID-19): Immunizations Discharge Information: and Continuing Care: Lab Results - Pending: None Radiology Results - Pending: None Discharge Instructions: Activity: activity as tolerated. May shower.. May return to school/work. Follow Up Appointments: Follow-Up Appointment 01: Physician/Dept/Service: Dr. Grant Reason for Referral: follow up ckd stage 5 Call to Schedule in: 2 weeks Location: [address] [place] [address] #[facility] Discharge Medications: Home Medication cloNIDine [...] Manzano Note Recipients: Ivette Manzano MD - [id number] [preferred] Darryn Grant MD - [id number] [Preferred] Discharge: Summary: Admission Date: .16-Mar-2022 09:02:00 [...] at Discharge: .Home Vital Signs: T PRBPMAPSpO2 Value37.406978/0618766% Date/Time1 13:101/3 13:481/3 13:481/3 8:421/3 7:57 Range(36C [...] on Protonix and Zofran. 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 He will follow-up with his nurse sane, Dr. Grant, as scheduled. Final diagnoses: 1. End-stage renal disease-dialysis started 2. Nausea and vomiting 3. Right flank pain 4. Pleuritic chest pain 5. Alports syndrome 6. Hypertension *Some of this note was completed using [employer] voice recognition technology and may include unintended errors with respect to translation of words, typographical errors or grammar errors which may not have been identified prior to finalization of the chart note. >31 minutes patient care/discharge coordination Immunizations: Immunizations: 18-Feb-2022 SARS-CoV-2 (COVID-19): Immunizations 18-Feb-2022 DTaP- Hfzzzmsoi-Kbfmlqc-nugcznacf Pertussis: Immunizations, 2019 Medical History: End-stage renal [...] Keep catheter dry/protected May not [facility] to [facility] (more content not included)...[facility] 03-17-2022 NotePre-procedure Verification and Time Out: Pre-Procedure Verification and Time Out: Procedure Locationprocedure area HUDDLE - Pre-procedure Verificationcompleted TIME OUT - Final Verificationcompleted immediately prior to procedure start DEBRIEFcompleted General Information: Anesthesia Critical Care: Non-Anesthesia Post-Procedure Diagnosis: Renal failure Procedure Name: Tunneled dialysis catheter placement Findings: grossly normal anatomy Procedure performed by: Compliance Officer(s): none Estimated Blood Loss (mL): none Specimen: [...] Manzano, last seen in the office 2018. Instrument Specialist is Dr. Grant History is taken from the patient, discussion with the ER physician & ER records, [facility] outpatient medical records, and prior [facility] medical records. Patient is a 22-year-old white [...] *Some of this note was completed using [employer] voice recognition technology and may include unintended [...] 15 days. Objective: Objective Information: T PRBPMAPSpO2 Value37.581529050/8498% Date/Time03/16 14: 14: 14: 14: 14:00 Range(36.5C [...] for hypertension on lisinopril who presents to [facility] emergency department with complaints of sore throat, [...] Objective: Objective Information: Objective Information T PRBPMAPSpO2 Value36.373616126/64699% Date/Time02/18 13: 20: 20: 20: 20:00 Range(36.9C [...] included)...[facility] Hospital[facility] Author Radhika Dyson [facility] Note Date/Time October 14, 2024 2:15 pm [facility] Medical Records Department [address] [place] [address] Counseling Note - Pharmacy 10/14/24 1330 MR#: [id number] Acct: [id number] Name: LAWSON DOYLE Rep #:[id number] : 2000 From: Radhika Dyson PCP: Care Physician,No Primary Status :ADM KEYANNA Y Location: [place] [address] Pharmacy [facility] Counseling Pharmacy Service has performed discharge [...] Signature (if applicable): Date CC: ~ Signed [facility] Work Phone: Discharge summary Author Bing Birmingham [facility] Note Date/Time October 14, 2024 12:5 3pm [facility] Medical Records Department [address] [place] [address] Discharge Summary 10/14/24 1242 MR#: [id number] Acct: [id number] Name: LAWSON DOYLE Rep #:[id number] : 2000 From: Bing Birmingham DO PCP: Care Physician,No Primary Status :ADM KEYANNA Location: [place] [address] Providers Date of Admission: 10/13/24 Date of [...] who presented to the emergency department at [facility] on 10/05/2024 complaining of shortness of [...] % (Auto) 63.4, Lymph % (Auto) 22.1, Spencer % (Auto) 6.1, Eos % (Auto) 7.9 [...] Self Care Charges/Coding Visit Charges Inpatient E&M: 36870 Disch Hosp >30min 10/14/24 1253 <Electronically signed by Bing Birmingham DO> Cosigner Signature (if applicable): CC: Dr. Windy Higuera MD; Dr. Bing Birmingham DO; No Primary Care Physician~ Signed [facility] Work Phone: Evaluation note* Neurological: alert and oriented [id number]: Foot infectionMusculoskeletal: ROM intactGastrointestinal: Nondistended, soft, non-tender, [...] [facility] Hospital[facility]* Neurological: alert and oriented [id number]: Appropriate mood and behaviorExtremities: normal extremities, no [...] documented in [facility]* Diagnosis ESRD on dialysis (HCC)- Primary End stage renal disease ESRD (end stage renal disease) (HCC) End stage renal disease documented [facility] this [facility]* Diagnosis Pre-op evaluation- Primary Preoperative examination, unspecified Alport syndrome Other specified congenital anomalies End stage renal disease (HCC) End stage renal disease Anemia due to chronic kidney disease, on chronic dialysis (HCC) Primary hypertension Unspecified essential hypertension ESRD (end stage renal disease) (HCC) End stage renal disease documented [facility] this encounter [facility]* Diagnosis ESRD (end stage renal disease) (HCC)- Primary End stage renal disease documented [facility] this [facility]* Diagnosis ESRD (end stage renal disease) (HCC)- Primary End stage renal disease ESRD (end stage renal disease) (HCC) End stage renal disease [facility]* Diagnosis ESRD on dialysis (HCC)- Primary End stage renal disease Stenosis of arteriovenous dialysis fistula, initial encounter ([facility]) ESRD (end stage renal disease) (HCC) End stage renal disease documented [facility]* Diagnosis ESRD on dialysis (HCC)- Primary End stage renal disease Pre-transplant evaluation for ESRD (end stage renal disease) Other specified pre-operative examination documented [facility] this [facility]* Diagnosis Mechanical complication of dialysis catheter, initial encounter (HCC)- Primary ESRD on dialysis (HCC) End stage renal disease [facility] Pre-transplant evaluation for kidney transplant- Primary Other specified pre-operative examination [facility] Diagnosis ESRD (end stage renal disease) (HCC)- Primary End stage renal disease ESRD (end stage renal disease) (HCC) End stage renal disease [facility]* Diagnosis ESRD on dialysis (HCC)- Primary End stage renal disease ESRD (end stage renal disease) (HCC) End stage renal disease [facility]* Diagnosis ESRD (end stage renal disease) (HCC)- Primary End stage renal disease ESRD (end stage renal disease) (HCC) End stage renal disease ESRD (end stage renal disease) (HCC) End stage renal disease [facility]* Diagnosis Renal failure, unspecified chronicity- Primary Preoperative examination Preoperative examination, unspecified Screening for venereal disease Screening examination for venereal disease documented in this encounter [facility] note* Diagnosis Pre-transplant evaluation for CKD (chronic kidney disease)- Primary Other specified pre-operative examination [facility]* Diagnosis ESRD on dialysis (HCC)- Primary End stage renal disease Preop cardiovascular exam Pre-operative cardiovascular examination Pre-op evaluation Preoperative examination, unspecified Allergy, initial encounter documented in this encounter [facility] note* Diagnosis Alport syndrome- Primary Other specified congenital anomalies ESRD on dialysis (HCC) End stage renal disease Encounter for pre-transplant evaluation for kidney transplant documented in this encounter [facility] note* Diagnosis Renal failure, unspecified chronicity Preoperative examination Preoperative examination, unspecified Screening for venereal disease Screening examination for venereal disease documented [facility]* Diagnosis Pre-transplant evaluation for kidney transplant- Primary Other specified pre-operative examination [facility]* Diagnosis ESRD (end stage renal disease) (HCC)- Primary End stage renal disease ESRD (end stage renal disease) (HCC) End stage renal disease documented in this encounter [facility] note* Diagnosis Pre-op testing- Primary Preoperative examination, unspecified ESRD (end stage renal disease) (HCC) End stage renal disease documented in this encounter [facility] note* Diagnosis ESRD on dialysis (HCC)- Primary End stage renal disease ESRD on dialysis (HCC) End stage renal disease documented in this encounter [facility] note* Diagnosis ESRD on dialysis (HCC) End stage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 [facility] [place] [address] 05/25/22 Hotel Operations Manager Relationship Specialty Start Date End Date PcpEmma APRN PCP - General Adult Health 05/03/23 Darryn Grant MD [address] [address] Nephrology 04/26/22 [facility] [address] [facility] [place] [address] 05/25/22 Hotel Operations Manager Relationship Specialty [place] [address] [place] [address] PCP - General 08/17/21 Hotel Operations Manager Relationship Specialty Start Date End Date PcpEmma APRN PCP - General Adult Health 05/03/23 11/17/23 Darryn Grant MD [address] [place] [address] Nephrology 04/26/22 [facility] [address] [facility] [place] [address] 05/25/22 Hotel Operations Manager Relationship Specialty Start Date End Date Pcp, No, INSTRUCTIONAL DESIGN TECHNOLOGIST PCP - General Adult Health 05/03/23 11/17/23 Darryn Grant MD [address] [address] Nephrology 04/26/22 [facility] [address] [facility] [place] [address] 05/25/22 Hotel Operations Manager Relationship Specialty Start Date End Date Pcp, No, INSTRUCTIONAL DESIGN TECHNOLOGIST PCP - General Adult Health 05/03/23 11/17/23 Darryn Grant MD [address] [address] Nephrology 04/26/22 [facility] [address] [place] [address] 05/25/22 Hotel Operations Manager Relationship Specialty Start Date End Date Pcp, Emma INSTRUCTIONAL DESIGN TECHNOLOGIST PCP - General Adult Health 05/03/23 11/17/23 Darryn Grant MD [address] [address] Nephrology 04/26/22 [facility] [address] [place] [address] 05/25/22 Hotel Operations Manager Relationship Specialty Start Date End Date PcpEmma, INSTRUCTIONAL DESIGN TECHNOLOGIST PCP - General Adult Health 05/03/23 11/17/23 Darryn Grant MD [address] [address] Nephrology 04/26/22 [facility] [address] [place] [address] 05/25/22 Hotel Operations Manager Relationship Specialty Start Date End Date Pcp, No, INSTRUCTIONAL DESIGN TECHNOLOGIST PCP - General Adult Health 05/03/23 11/17/23 Darryn Grant MD [address] [address] Nephrology 04/26/22 [facility] [address] [place] [address] 05/25/22 Hotel Operations Manager Relationship Specialty Start Date End Date Pcp, No, INSTRUCTIONAL DESIGN TECHNOLOGIST PCP - General Adult Health 05/03/23 11/17/23 Darryn Grant MD [address] [place] [address] Nephrology 04/26/22 [facility] [address] [place] [address] 05/25/22 Hotel Operations Manager Relationship Specialty Start Date End Date Pcp, No, INSTRUCTIONAL DESIGN TECHNOLOGIST PCP - General Adult Health 05/03/23 11/17/23 Darryn Grant MD [address] [place] [address] Nephrology 04/26/22 [facility] [address] [place] [address] 05/25/22 Hotel Operations Manager Relationship Specialty Start Date End Date Pcp, No, INSTRUCTIONAL DESIGN TECHNOLOGIST PCP - General Adult Health 05/03/23 11/17/23 Darryn Grant MD [facility] [address] [address] Nephrology 04/26/22 [facility] [address] [place] [address] 05/25/22 Hotel Operations Manager Relationship Specialty Start Date End Date Pcp, No, INSTRUCTIONAL DESIGN TECHNOLOGIST PCP - General Adult Health 05/03/23 11/17/23 Darryn Grant MD [address] [place] [address] Nephrology 04/26/22 [facility] [address] [facility] [place] [address] 05/25/22 Hotel Operations Manager Relationship Specialty Start Date End Date Darryn Grant MD [address] [place] [address] Nephrology 04/26/22 [facility] [address] [facility] [place] [address] 05/25/22 Hotel Operations Manager Relationship Specialty Start Date End Date Darryn Grant MD [address] [place] [address] Nephrology 04/26/22 [facility] [address] [facility] [place] [address] 05/25/22 Hotel Operations Manager Relationship Specialty Start Date End Date Darryn Grant MD [address] [place] [address] Nephrology 04/26/22 [facility] [address] [facility] [place] [address] 05/25/22 Hotel Operations Manager Relationship Specialty Start Date End Date Darryn Grant MD [address] [place] [address] Nephrology 04/26/22 [facility] [address] [facility] [place] [address] 05/25/22 Hotel Operations Manager Relationship Specialty Start Date End Date Darryn Grant MD [address] [place] [address] Nephrology 04/26/22 [facility] [address] [facility] [place] [address] 05/25/22 Hotel Operations Manager Relationship Specialty Start Date End Date Darryn Grant MD [address] [place] [address] Nephrology 04/26/22 [facility] [address] [facility] [place] [address] 05/25/22 Hotel Operations Manager Relationship Specialty Start Date End Date Darryn Grant MD [address] [place] [address] Nephrology 04/26/22 [facility] [address] [facility] [place] [address] 05/25/22 Hotel Operations Manager Relationship Specialty Start Date End Date Darryn Grant MD [address] [place] [address] Nephrology 04/26/22 [facility], [facility] [address] [facility] [place] [address] 05/25/22 Hotel Operations Manager Relationship Specialty Start Date End Date Darryn Grant MD [address] [place] [address] Nephrology 04/26/[address] [address] 05/25/22 Hotel Operations Manager Relationship Specialty [place] [address] [place] [address] PCP - General 08/17/21 Hotel Operations Manager Relationship Specialty Start Date End Date Darryn Grant MD [address] [place] [address] Nephrology 04/26/[address] [address] 05/25/22 Team Status: Active Member Role/Relationship Status [...] Start : October 13, 2024 Dr. Bing Birmingahm , DO Attending Provider Active S tart: [...] Other Provider Active Start: October 14, 2024 Hotel Operations Manager Relationship Specialty [place] [address] [place] [address] PCP - General 08/17/21 01/05/25 Scheduled Active [...] saline. 0938 (Given - Provider: Mary Enriquez, CLOCKMAKER) amLODIPine (Norvasc) tablet 5 mg 5 mg, [...] - Reason: Patient/family refused - Comment: Rebecca DIRECTOR OF CLINICAL EDUCATION notified)2330 (Due) PRN Medication Order 01/04/2025 01/05/2025 [...] BE BASED ON THE PRIMARY CLINICAL RECORDS. [facility]. provides no warranty or guarantee of the accuracy or completeness of information in this document.
[2025-01-31 04:46] LABS: Magnesium 2.5 mg/dL (1.5-2.2)
[2025-01-31 05:44] LABS: Hematocrit 28.6 % (40-54); Hemoglobin 8.7 g/dL (13.0-16.5); Immature Granulocytes Count 0.030 X10^3/uL (0.0-0.0); Mean Corp Hgb Conc 30.4 g/dL (32-36); Mean Corpuscular Volume 98.3 fL (80-94); Mean Platelet Vol. 9.6 fl (6.2-12.0); NRBC Flagged by Analyzer 0 % (0-5); POSITIVE MORPHOLOGY YES; Platelet Count 270 K/mm3 (150-450); RBC Distribution Width CV 19.7 % (11.6-14.6); RBC Distribution Width SD 70.1 fl (35.1-43.9); Red Blood Count 2.91 M/mm3 (4.6-6.2); White Blood Count 8.8 K/mm3 (4.4-11.0)
[2025-01-31] MEDS: 0.9% Normal Saline (1000mL) 1,000 ML 100 ML IV (05:47)
[2025-01-31] MEDS: Vancomycin HCl 2,000 MG in 0.9% Normal Saline (500mL Bag) 500 ML 250 MG IV (05:51)
--- NOTE | 2025-01-31 05:51 | CON.PCM.CC_ITS ---
HPI Consult Data Date of Consult: 01/31/25 HPI Narrative HPI Narrative: OMA DOYLE, is a 24yo M w/ ESRD on HD, Alport syndrome, chronic anemia, HTN, h/o tobacco use who was admitted for dyspnea and malaise. Difficult historian, frequently falling asleep during interview. He had several day h/o myalgia, nausea, abd pain, fatigue, and dyspnea. Denied fevers, productive cough. Has been taking Nyquil without relief. On arrival here noted to have significant hyperkalemia with K 7.0. CXR with possible RLL infiltrate, mild vascular congestion. He was given reversal agents in ED for hyperkalemia and admitted to ICU for closer monitoring. Last dialysis was yesterday. Family history reviewed and not relevant to current presentation. ROS: 12-point ROS negative except as per HPI PFSH Medical History ESRD (end stage renal disease) Chronic anemia Former smoker Hypertension Dialysis patient Arteriovenous fistula of right upper extremity Alports syndrome Home Medications Medication Instructions Recorded Last Taken Type cinacalcet 30 mg tablet 30 mg PO QPM 02/11/24 Unknow n History losartan 100 mg tablet 100 mg PO DAILY blood pressu re 02/11/24 10/12/24 History sevelamer carbonate 800 mg tablet 2,400 mg PO TID supp lement 02/11/24 10/12/24 History vit B,C-folic ac 800 mcg-zinc 12.5 1 tab PO DAILY josette min 02/11/24 10/12/24 History mg-selen-D3 2,000 unit-vit E tablet (RenaPlex-D) amlodipine 5 mg tablet 5 mg PO DAILY #30 tabs 10/14 Unknown Rx carvedilol 25 mg tablet 25 mg PO BIDCM #60 tabs 09/17 12/11 Unknown Rx Allergy/AdvReac Type Severity Reaction Status Date / Time No Known Allergies Allergy Verified 10/13/24 08:14 Family History Mother Kidney disease Cancer Father CVA (cerebral vascular accident) Hypertension Surgical History S/P arteriovenous (AV) fistula creation Social History household members: family housing: house Smoking Status: Former smoker alcohol intake: never substance use type: does not use Objective Data Objective Data Vital Signs: Vital Signs Last response 3 Temperature 36.3 C L 01/31/25 05:19 Temperature Source Temporal 01/31/25 05:19 Pulse Rate 93 01/31/25 05:19 Respiratory Rate 14 01/31/25 05:19 Respiratory Effort Short of Breath 01/31/25 04:45 Respiratory Depth Normal 01/31/25 04:45 Respiratory Pattern Tachypnea 01/31/25 04:45 Blood Pressure 185/144 H 01/31/25 05:19 Blood Pressure Mean 157 01/31/25 05:19 Blood Pressure Source Monitor 01/31/25 05:19 Blood Pressure Position Semi-Fowlers 01/31/25 05:19 Blood Pressure Location Right Arm 01/31/25 05:19 Pulse Ox 100 01/31/25 05:19 Oxygen Delivery Method Nasal Cannula 01/31/25 05:19 Oxygen Flow Rate (L/min) 2 01/31/25 05:19 I&O: I&O Last 24 Hours 3 01/30/25 01/30/25 01/31/25 11:59 23:59 11:59 Intake Total 300 / 300 Balance 300 / 300 I&O: Total Stay 3 01/31/25 01:14 thru 01/31/25 05:41 Intake Total 300 Balance 300 Current Meds Ordered / Administered: Current meds ordered / Administered 3 Generic Name Dose Route Start Last Admin Trade Name Freq PRN Reason Stop Dose Admin Acetaminophen 650 mg 01/31/25 05:20 Acetaminophen 325 Mg Tablet PO Q4H PRN PRN Fever, pain 1-12/26 Al Hydroxide/Mg Hydroxide 30 ml 01/31/25 05:20 Mag Hydrox/Al Hydrox/Simeth 30 Ml Udc PO Q6H PRN PRN Gastric Burning Albuterol Sulfate 2.5 mg 01/31/25 05:20 Albuterol 2.5 Mg/3 Ml Vial.Neb. INHALATION Q2H PRN PRN Dyspnea, wheezing Amlodipine Besylate 5 mg 01/31/25 10:00 Amlodipine 5 Mg Tablet PO DAILY [facility] Protocol Carvedilol 25 mg 01/31/25 08:00 Carvedilol 25 Mg Tablet PO BIDCM [facility] Cinacalcet 30 mg 01/31/25 21:00 Cinacalcet Hcl 30 Mg Tablet PO QPM [facility] Guaifenesin 10 ml 01/31/25 05:20 Guaifenesin 10 Ml Udc (200mg/10ml) PO Q4H PRN PRN COUGH Heparin Sodium (Porcine) 5,000 unit 01/31/25 10:00 Heparin Injection (Vial) 5,000 Unit/Ml Vial SC Q12 [facility] Hydralazine HCl 10 mg 01/31/25 05:20 Hydralazine 20 Mg/Ml Vial IV Q4H PRN PRN SBP > 160 Protocol Sodium Chloride 1,000 mls @ 100 mls/hr 01/31/25 05:20 01/31/25 05:47 IV 01/31/25 15:19 100 mls/hr .Q10H [facility] Administration Piperacillin Sod/Tazobactam 50 mls @ 12.5 mls/hr 01/31/25 06:00 Sod 3.375 gm/ Sodium Chloride IV Q8 [facility] Vancomycin IV-PHARMACY TO DOSE 500 mls @ 250 mls/hr 01/31/25 05:20 1 each/ Sodium Chloride IV X1 PRN Rx to Dose Protocol Sodium Chloride 250 mls @ 15 mls/hr 01/31/25 05:23 IV .[id number] PRN Saline Flush Sodium Chloride 250 mls @ 15 mls/hr 01/31/25 05:23 IV .[id number] PRN Additional IVPB Infusion Vancomycin HCl 2,000 mg/ 540 mls @ 250 mls/hr 01/31/25 05:30 Sodium Chloride IV 01/31/25 07:39 X1 ONE Melatonin 3 mg 01/31/25 05:20 Melatonin 3 Mg Tablet PO QHS PRN PRN INSOMNIA Ondansetron HCl 4 mg 01/31/25 05:20 Ondansetron 4 Mg/2 Ml Vial IV Q8H PRN PRN NAUSEA/VOMITING Senna/Docusate Sodium 2 tablet 01/31/25 05:20 Senna/Docusate Sodium 1 Tablet PO BID PRN PRN Constipation Sevelamer Carbonate 2,400 mg 01/31/25 06:00 Sevelamer Carbonate 800 Mg Tablet PO TID [facility] Sodium Chloride 10 - 40 ml 01/31/25 05:23 0.9% Saline Lock 10 Ml Syringe IV UD PRN SALINE FLUSH Throat Lozenges 1 lozenge 01/31/25 05:20 Benzocaine/Menthol 1 Lozenge MUCOUS MEM Q2H PRN PRN SORE THROAT Lab / Micro Data 01/31/25 05:28 01/31/25 05:28 Labs: Laboratory Results - last 24 hr 01/31/25 01:44: WBC 9.8, RBC 3.19 L, Hgb 9.5 L, Hct 31.3 L, MCV 98.1 H, MCH 29.8, MCHC 30.4 L, RDW Std Deviation 68.7 H, RDW Coeff of Mono 19.8 H, Plt Count 244, MPV 9.2, Immature Gran % (Auto) 0.300, Neut % (Auto) 68.9, Lymph % (Auto) 18.6 L, Ross % (Auto) 5.2, Eos % (Auto) 6.6 H, Baso % (Auto) 0.4, Absolute Neuts (auto) 6.7, Absolute Lymphs (auto) 1.82, Nucleated RBC % 0.2, Differential Comment SCANNED, Polychromasia 1+, Basophilic Stippling RARE, Anisocytosis 1+, Macrocytosis RARE, Sodium 138, Potassium 6.7 H*, Chloride 95 L, Carbon Dioxide 29.8, Anion Gap 13, BUN 28 H, Creatinine 7.15 H, Estim Creat Clear Calc 16.31 L, Est GFR (MDRD) Non-Af 10 L, BUN/Creatinine Ratio 3.9 L, Glucose 106 H, Calcium 10.1 01/31/25 02:55: Sodium 137, Potassium 7.0 H*, Chloride 95 L, Carbon Dioxide 28.6, Anion Gap 13, BUN 28 H, Creatinine 7.14 H, Estim Creat Clear Calc 16.33 L, Est GFR (MDRD) Non-Af 10 L, BUN/Creatinine Ratio 4.0 L, Glucose 105 H, Calcium 10.1, Phosphorus 7.7 H, Magnesium 2.5 H Micro: Microbiology 01/31/25 01:50 Mucosa - Nose SARS-CoV-2, Influenza & RSV (PCR) - Final Imaging Radiology Impression Chest X-Ray 01/31/25 01:55 IMPRESSION: Stable appearing cardiomegaly and mild CHF changes. Newly appreciated right lower lung zone pneumonic consolidation. Follow-up is recommended Reading Location: [place] [address] Assessment and Plan . Assessment and plan: Physical Exam: Gen - NAD, well-developed, drowsy HEENT - MMM. Sclera anicteric Resp - CTAB. Breathing nonlabored CV - RRR. No m/g/r Abd - Soft, NT, ND Ext - No c/c/e. RUE AV fistula in place Skin - No rashes Neuro - Drowsy, falling asleep very easily during interview. Intermittently answers questions appropriately I have reviewed the pertinent vital sign, laboratory, and imaging data. ASSESSMENT: # Severe hyperkalemia # Possible PNA # HTN urgency # Acute encephalopathy/drowsiness - received IV ativan and benadryl in ED as well reportedly # ESRD on HD # Alport syndrome # Chronic anemia # h/o tobacco use PLAN: -Monitor closely in ICU, watch telemetry -Agree with nephrology consult for emergent HD. Reversal agents given as well. Follow K closely -Empiric vanc/zosyn/doxy. f/u Cx. Resp viral panel pending, urine strep/legionella, MRSA pending. -CT chest pending -Monitor BP, can use PRN IV antihypertensives if worsening. May improve further with HD -Monitor mental status FEN/GI: NPO Proph DVT/GI: SQ heparin Critical Care Time: 60 mins The entirety of this encounter was done via telemedicine using both audio and video. Consent was obtained.
[2025-01-31 06:19] LABS: Differential Indicated SCAN CRITERIA MET
[2025-01-31 06:20] LABS: AST(SGOT) 13 U/L (<=37); Alanine Aminotransfer ALT/SGPT 15 U/L (<=46); Albumin, Serum 3.6 g/dL (3.5-5.0); Alkaline Phosphatase 54 U/L (40-129); Anion Gap 15 (5-15); BUN 28 mg/dL (4-19); BUN/Creat Ratio 3.9 RATIO (10-20); Calcium,Total 9.4 mg/dL (7.6-11.0); Carbon Dioxide 26.7 mmol/L (21.0-32.0); Chloride 98 mmol/L (98-108); Estimated Creatinine Clearance 16.19 ml/min (50-250); Globulin 2.0 g/dL (2.2-4.2); Glucose 120 mg/dL (70-99); Potassium 4.4 mmol/L (3.3-5.1)
[2025-01-31] MEDS: Heparin Injection (Vial) 5,000 UNIT/ML VIAL 5000 UNIT IV (08:35)
[2025-01-31] MEDS: PureFlow B 2K Dialysis Soln 1 BAG 6 BAG PF (08:40)
[2025-01-31] MEDS: 0.9% Normal Saline 1,000 ML IV.SOLN. 1000 ML OPERA.SITE (08:41)
[2025-01-31] MEDS: SEVELAMER CARBONATE 800 MG TABLET 2400 MG PO ×2 (11:19→17:25)
--- NOTE | 2025-01-31 11:56 | PN.CC_ITS ---
Objective Data Objective Data Vital Signs: Vital Signs Last response 3 Temperature 36.4 C L 01/31/25 11:00 Temperature Source Temporal 01/31/25 11:00 Pulse Rate 96 01/31/25 11:00 Respiratory Rate 14 01/31/25 11:00 Respiratory Effort Non-Labored 01/31/25 11:00 Respiratory Depth Normal 01/31/25 08:00 Respiratory Pattern Normal 01/31/25 08:00 Blood Pressure 209/142 H 01/31/25 11:00 Blood Pressure Mean 164 01/31/25 11:00 Blood Pressure Source Monitor 01/31/25 11:00 Blood Pressure Position Semi-Fowlers 01/31/25 11:00 Blood Pressure Location Left Arm 01/31/25 11:00 Pulse Ox 98 01/31/25 11:00 Oxygen Delivery Method Nasal Cannula 01/31/25 11:00 Oxygen Flow Rate (L/min) 2 01/31/25 11:00 I&O: I&O Last 24 Hours 3 01/30/25 01/30/25 01/31/25 11:59 23:59 11:59 Intake Total 1110 / 1110 Output Total 3130 / 3130 Balance -2019 / I&O: Total Stay 3 01/31/25 01:14 thru 01/31/25 11:00 Intake Total 1110 Output Total 3130 Current Meds Ordered / Administered: Current meds ordered / Administered 3 Generic Name Dose Route Start Last Admin Trade Name Freq PRN Reason Stop Dose Admin Acetaminophen 650 mg 01/31/25 05:20 Acetaminophen 325 Mg Tablet PO Q4H PRN PRN Fever, pain 1-12/26 Al Hydroxide/Mg Hydroxide 30 ml 01/31/25 05:20 Mag Hydrox/Al Hydrox/Simeth 30 Ml Udc PO Q6H PRN PRN Gastric Burning Albuterol Sulfate 2.5 mg 01/31/25 05:20 Albuterol 2.5 Mg/3 Ml Vial.Neb. INHALATION Q2H PRN PRN Dyspnea, wheezing Amlodipine Besylate 5 mg 01/31/25 10:00 01/31/25 11:19 Amlodipine 5 Mg Tablet PO 5 mg DAILY [facility] Administration Protocol Carvedilol 25 mg 01/31/25 08:00 01/31/25 11:20 Carvedilol 25 Mg Tablet PO 25 mg BIDCM [facility] Administration Cinacalcet 30 mg 01/31/25 21:00 Cinacalcet Hcl 30 Mg Tablet PO QPM [facility] Guaifenesin 10 ml 01/31/25 05:20 Guaifenesin 10 Ml Udc (200mg/10ml) PO Q4H PRN PRN COUGH Hemodialysis Solution 6 bag 01/31/25 07:30 01/31/25 08:40 Pureflow B 2k Dialysis Soln 1 Bag PF 01/31/25 19:32 6 bag UD [facility] Administration Protocol Heparin Sodium (Porcine) 5,000 unit 01/31/25 10:00 01/31/25 11:20 Heparin Injection (Vial) 5,000 Unit/Ml Vial SC Not Given Q12 [facility] Hydralazine HCl 10 mg 01/31/25 05:20 Hydralazine 20 Mg/Ml Vial IV Q4H PRN PRN SBP > 160 Protocol Sodium Chloride 1,000 mls @ 100 mls/hr 01/31/25 05:20 01/31/25 05:47 IV 01/31/25 15:19 100 mls/hr .Q10H [facility] Administration Piperacillin Sod/Tazobactam 50 mls @ 12.5 mls/hr 01/31/25 06:00 01/31/25 08:50 Sod 3.375 gm/ Sodium Chloride IV Not Given Q8 [facility] Vancomycin IV-PHARMACY TO DOSE 500 mls @ 250 mls/hr 01/31/25 05:20 1 each/ Sodium Chloride IV X1 PRN Rx to Dose Protocol Sodium Chloride 250 mls @ 15 mls/hr 01/31/25 05:23 IV .[id number] PRN Saline Flush Sodium Chloride 250 mls @ 15 mls/hr 01/31/25 05:23 IV .[id number] PRN Additional IVPB Infusion Doxycycline Hyclate 100 mg/ 250 mls @ 250 mls/hr 01/31/25 06:30 01/31/25 08:50 Sodium Chloride IV Not Given Q12 [facility] Melatonin 3 mg 01/31/25 05:20 Melatonin 3 Mg Tablet PO QHS PRN PRN INSOMNIA Ondansetron HCl 4 mg 01/31/25 05:20 Ondansetron 4 Mg/2 Ml Vial IV Q8H PRN PRN NAUSEA/VOMITING Senna/Docusate Sodium 2 tablet 01/31/25 05:20 Senna/Docusate Sodium 1 Tablet PO BID PRN PRN Constipation Sevelamer Carbonate 2,400 mg 01/31/25 06:00 01/31/25 11:19 Sevelamer Carbonate 800 Mg Tablet PO 2,400 mg TID [facility] Administration Sodium Chloride 10 - 40 ml 01/31/25 05:23 0.9% Saline Lock 10 Ml Syringe IV UD PRN SALINE FLUSH Sodium Chloride 1,000 ml 01/31/25 07:30 01/31/25 08:41 0.9% Normal Saline 1,000 Ml Iv.Soln. OPERA.SITE 01/31/25 19:30 1,000 ml X1 [facility]ARD Administration Sodium Chloride 200 ml 01/31/25 07:30 0.9% Normal Saline 1,000 Ml Iv.Soln. IV 01/31/25 19:30 X1 PRN to maintain SBP >90mmHg during Dialysis Throat Lozenges 1 lozenge 01/31/25 05:20 Benzocaine/Menthol 1 Lozenge MUCOUS MEM Q2H PRN PRN SORE THROAT Lab / Micro Data 01/31/25 05:28 01/31/25 05:28 Labs: Laboratory Results - last 24 hr 01/31/25 01:44: WBC 9.8, RBC 3.19 L, Hgb 9.5 L, Hct 31.3 L, MCV 98.1 H, MCH 29.8, MCHC 30.4 L, RDW Std Deviation 68.7 H, RDW Coeff of Mono 19.8 H, Plt Count 244, MPV 9.2, Immature Gran % (Auto) 0.300, Neut % (Auto) 68.9, Lymph % (Auto) 18.6 L, [place]erry % (Auto) 5.2, Eos % (Auto) 6.6 H, Baso % (Auto) 0.4, Absolute Neuts (auto) 6.7, Absolute Lymphs (auto) 1.82, Nucleated RBC % 0.2, Differential Comment SCANNED, Polychromasia 1+, Basophilic Stippling RARE, Anisocytosis 1+, Macrocytosis RARE, Sodium 138, Potassium 6.7 H*, Chloride 95 L, Carbon Dioxide 29.8, Anion Gap 13, BUN 28 H, Creatinine 7.15 H, Estim Creat Clear Calc 16.31 L, Est GFR (MDRD) Non-Af 10 L, BUN/Creatinine Ratio 3.9 L, Glucose 106 H, Calcium 10.1 01/31/25 02:55: Sodium 137, Potassium 7.0 H*, Chloride 95 L, Carbon Dioxide 28.6, Anion Gap 13, BUN 28 H, Creatinine 7.14 H, Estim Creat Clear Calc 16.33 L, Est GFR (MDRD) Non-Af 10 L, BUN/Creatinine Ratio 4.0 L, Glucose 105 H, Calcium 10.1, Phosphorus 7.7 H, Magnesium 2.5 H 01/31/25 05:28: WBC 8.8, RBC 2.91 L, Hgb 8.7 L, Hct 28.6 L, MCV 98.3 H, MCH 29.9, MCHC 30.4 L, RDW Std Deviation 70.1 H, RDW Coeff of Mono 19.7 H, Plt Count 270, MPV 9.6, Immature Gran % (Auto) 0.300, Neut % (Auto) 70.0, Lymph % (Auto) 19.1, Ferry % (Auto) 5.5, Eos % (Auto) 4.6, Baso % (Auto) 0.5, Absolute Neuts (auto) 6.1, Absolute Lymphs (auto) 1.67, Nucleated RBC % 0, Sodium 139, Potassium 4.4, Chloride 98, Carbon Dioxide 26.7, Anion Gap 15, BUN 28 H, C reatinine 7.20 H, Estim Creat Clear Calc 16.19 L, Est GFR (MDRD) Non-Af 10 L, B UN/Creatinine Ratio 3.9 L, Glucose 120 H, Calcium 9.4, Total Bilirubin 0.45, AST 13, ALT 15, Alkaline Phosphatase 54, Total Protein 5.6 L, Albumin 3.6, Globulin 2.0 L, Albumin/Globulin Ratio 1.8 01/31/25 05:58: POC Glucose 75 01/31/25 06:48: POC Glucose 145 H 01/31/25 11:14: POC Glucose 75 Micro: Microbiology 01/31/25 04:37 Mucosa - Nasopharyngeal Respiratory Panel (PCR) - Final 01/31/25 05:28 Nasal Secretion MRSA (PCR) - Final 01/31/25 01:50 Mucosa - Nose SARS-CoV-2, Influenza & RSV (PCR) - Final Imaging Radiology Impression Chest X-Ray 01/31/25 01:55 IMPRESSION: Stable appearing cardiomegaly and mild CHF changes. Newly appreciated right lower lung zone pneumonic consolidation. Follow-up is recommended Reading [facility] 01/31/25 03:57 IMPRESSION: Coronary artery calcification (CAC) is absent Cardiomegaly and pleural effusions with diffuse ground-glass densities consistent with CHF. Atelectasis in the posterior lower lobes. Airspace densities in the posterior lower lobes may represent atelectasis or pneumonia which can not be excluded. Reading Location: [facility] Assessment and Plan . Assessment and plan: Critical Care Time: The entirety of this encounter was done via Telemedicine Subjective Subjective P/CC Update Note SP dialysis this AM. On 2L with sast upper 90s. Pt drowsy but feels a little better overall and aside from mild nausea has no other significant complaints. He can be downgraded from my standpoint. Will sign off but please notify if acute issues arise. Matt Cuevas MD Pulmonary/Critical Care The entirety of this encounter was completed via telemedicine.
--- NOTE | 2025-01-31 13:04 | PN_ITS ---
Subjective Subjective Patient seen and examined. He was undergoing dialysis. He was quite lethargic but had no active complaints. He was able to wake up and respond to questions. His blood pressure was quite elevated at time of review and he had been given clonidine by his dialysis nurse. Review of systems is otherwise negative. Objective Data Objective Data Vital Signs: Vital Signs Temp Pulse Resp BP Pulse Ox O2 Del Method O2 Flow Rate 97.0 F L 84 14 152/104 H 100 Room Air 2 01/31/25 11:24 01/31/25 12:00 01/31/25 12:00 01/31/25 12:00 01/31/25 12:00 01/31/25 12:00 01/31/25 11:00 Oxygen Flow Rate (L/min) 2 Oxygen Delivery Method Room Air Weight: 161 lb 6.054 oz Body Mass Index (BMI) 23.1 Intake & Output: Intake and Output for Last 24 Hours 01/29/25 01/30/25 01/31/25 23:59 23:59 23:59 Intake Total 1230 / 1230 Output Total 6230 / 6230 Balance -5000 / -5000 Lab / Micro Data 01/31/25 05:28 01/31/25 05:28 Labs: Laboratory Results - last 24 hr 01/31/25 01:44: WBC 9.8, RBC 3.19 L, Hgb 9.5 L, Hct 31.3 L, MCV 98.1 H, MCH 29.8, MCHC 30.4 L, RDW Std Deviation 68.7 H, RDW Coeff of Mono 19.8 H, Plt Count 244, MPV 9.2, Immature Gran % (Auto) 0.300, Neut % (Auto) 68.9, Lymph % (Auto) 18.6 L, [place] % (Auto) 5.2, Eos % (Auto) 6.6 H, Baso % (Auto) 0.4, Absolute Neuts (auto) 6.7, Absolute Lymphs (auto) 1.82, Nucleated RBC % 0.2, Differential Comment SCANNED, Polychromasia 1+, Basophilic Stippling RARE, Anisocytosis 1+, Macrocytosis RARE, Sodium 138, Potassium 6.7 H*, Chloride 95 L, Carbon Dioxide 29.8, Anion Gap 13, BUN 28 H, Creatinine 7.15 H, Estim Creat Clear Calc 16.31 L, Est GFR (MDRD) Non-Af 10 L, BUN/Creatinine Ratio 3.9 L, Glucose 106 H, Calcium 10.1 01/31/25 02:55: Sodium 137, Potassium 7.0 H*, Chloride 95 L, Carbon Dioxide 28.6, Anion Gap 13, BUN 28 H, Creatinine 7.14 H, Estim Creat Clear Calc 16.33 L, Est GFR (MDRD) Non-Af 10 L, BUN/Creatinine Ratio 4.0 L, Glucose 105 H, Calcium 10.1, Phosphorus 7.7 H, Magnesium 2.5 H 01/31/25 05:28: WBC 8.8, RBC 2.91 L, Hgb 8.7 L, Hct 28.6 L, MCV 98.3 H, MCH 29.9, MCHC 30.4 L, RDW Std Deviation 70.1 H, RDW Coeff of Mono 19.7 H, Plt Count 270, MPV 9.6, Immature Gran % (Auto) 0.300, Neut % (Auto) 70.0, Lymph % (Auto) 19.1, [place] % (Auto) 5.5, Eos % (Auto) 4.6, Baso % (Auto) 0.5, Absolute Neuts (auto) 6.1, Absolute Lymphs (auto) 1.67, Nucleated RBC % 0, Sodium 139, Potassium 4.4, Chloride 98, Carbon Dioxide 26.7, Anion Gap 15, BUN 28 H, C reatinine 7.20 H, Estim Creat Clear Calc 16.19 L, Est GFR (MDRD) Non-Af 10 L, B UN/Creatinine Ratio 3.9 L, Glucose 120 H, Calcium 9.4, Total Bilirubin 0.45, AST 13, ALT 15, Alkaline Phosphatase 54, Total Protein 5.6 L, Albumin 3.6, Globulin 2.0 L, Albumin/Globulin Ratio 1.8 01/31/25 05:58: POC Glucose 75 01/31/25 06:48: POC Glucose 145 H 01/31/25 11:14: POC Glucose 75 Micro: Microbiology 01/31/25 04:37 Mucosa - Nasopharyngeal Respiratory Panel (PCR) - Final 01/31/25 05:28 Nasal Secretion MRSA (PCR) - Final 01/31/25 01:50 Mucosa - Nose SARS-CoV-2, Influenza & RSV (PCR) - Final Radiography Diagnostic Testing: Radiology Impression Chest X-Ray 01/31/25 01:55 IMPRESSION: Stable appearing cardiomegaly and mild CHF changes. Newly appreciated right lower lung zone pneumonic consolidation. Follow-up is recommended [facility] 01/31/25 03:57 IMPRESSION: Coronary artery calcification (CAC) is absent Cardiomegaly and pleural effusions with diffuse ground-glass densities consistent with CHF. Atelectasis in the posterior lower lobes. Airspace densities in the posterior lower lobes may represent atelectasis or pneumonia which can not be excluded. Reading Location: [facility] Physical Exam Const Constitutional Narrative: lethargic, though wakes up in response to voice call HEENT normocephalic, head/scalp atraumatic, moist oral mucous membranes and oropharynx normal Eyes EOMs intact bilaterally Neck supple and no JVD Lymph Lymphatic: no lymphedema noted Resp Resp Narrative: moderately diminished breath sounds bibasally, no wheezes or crackles. On room air. Cardio regular rate, regular rhythm, S1 normal heart sound and S2 normal heart sound GI normal to inspection, nondistended, normoactive bowel sounds, soft to palpation and non-tender Extremity no clubbing, cyanosis or edema and no calf tenderness Extremity Narrative: AV fistula in RUE, undergoing dialysis. General Extremity: no tenderness to palpation of joints or extremities Skin General Skin Exam: no breakdown Neuro Neuro Narrative: lethargic, moves all extremities spontaneously. Motor Exam: general weakness Psych Psych Narrative: lethargic Assessment & Plan Assessment/Plan (1) Acute hypoxic respiratory failure: (2) Alport syndrome: (3) Hyperkalemia: (4) Right lower lobe pneumonia: (5) Sepsis: PLAN: Plan #Right lower lobe pneumonia * Was admitted with a complaint of shortness of breath and generalized malaise and bodyaches. Chest x-ray showed right lower lobe consolidation * On IV vancomycin and Zosyn as well as doxycycline. Respiratory panel negative. Urine for strep and Legionella negative. Cultures pending. * Titrate oxygen as needed to maintain saturation above 90%. Breathing treatment bronchodilators. * Critical care on board. 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 Potassium is markedly elevated. Usually has dialysis Wednesdays and Fridays. Hyperkalemia is now resolved and potassium is down to 4.4 * Was undergoing dialysis today. Nephrology on board. #Anemia: This is chronic. Likely due to ESRD. Hemoglobin was 9.5 on admission and is now down to 8.7. Will monitor closely and transfuse to maintain hemoglobin above 7. #Hypertension: On Coreg and amlodipine. IV hydralazine as needed #DVT prophylaxis: Heparin Charges/Coding Visit Charges Inpatient E&M: 47548 Subs Hosp L2
[2025-01-31] MEDS: Piperacil/Tazobactam 3.375 GM in 0.9% Normal Saline (50mL MB+) 50 ML IV ×2 (13:22→22:53)
--- NOTE | 2025-01-31 14:48 | CASEMGMT ---
TASHIA DE SANTIAGO Assessment Face to Face with patient for initial transition planning/care coordination assessment. TASHIA DE SANTIAGO introduced self and role at [facility], pt voices understanding. Pt is A&Ox4 and is resting comfortably in bed and is calm. Care providers, pharmacy, and demographics verified. Admitting dx: PNA, Hyperkalemia LACE Strata: 2 PCP: No PCP. Provider list was given in September and the pt states that he still has it . Pt was encouraged to get established. Specialists: Davida (Nephro) Preferred Pharmacy: [facility] Insurance: ANTHEM Prescription Benefit: Yes LNOK: Michael (Brother), Jessica (Sister) Living Arrangements: Pt lives alone in a 2 story apartment with 4 steps to enter ADLs/IADLs: Indep Transportation: Self, denies concerns DME: Denies. Pt is currently requiring additional oxygen and may qualify for home oxygen use. A verbal list of local in-network DME companies were provided to the pt at this time. Pt prefers [employer]. Green sheet placed on the pt's chart in the case that the pt were to DC over the weekend and qualify for home oxygen. HHC/SNF: Denies hx or needs Pt’s goal: Home Plan: Home with resumption of OP HD at [facility] in [place]. Pt states that he goes to [facility] at 0905. Pt denies issues. Pt states that he feels safe returning home once medically ready and denies further questions, concerns, or needs. Follow for oxygen needs. Miguel Randle RN, CM
--- NOTE | 2025-01-31 15:13 | PCM.RX.CS ---
Consult Antibiotic Management Pharmacy has been consulted to manage selected antibiotic: Vancomycin Type of Intervention Type of Consult: New start Suspected Infection Suspected Infection: Pneumonia Prior Doses of Antibiotics Prior Doses of Antibiotics Received/Current Regimen: X1 LD at this time (given before dialysis today) Labs Labs: Sodium 139 mmol/L (133-145) 01/31/25 05:28 Potassium 4.4 mmol/L (3.3-5.1) 01/31/25 05:28 Chloride 98 mmol/L (98-108) 01/31/25 05:28 Carbon Dioxide 26.7 mmol/L (21.0-32.0) 01/31/25 05:28 Anion Gap 15 (5-15) 01/31/25 05:28 BUN 28 mg/dL (4-19) H 01/31/25 05:28 Creatinine 7.20 mg/dL (0.70-1.20) H 01/31/25 05:28 Est GFR (MDRD) Non-Af 10 (>60) L 01/31/25 05:28 BUN/Creatinine Ratio 3.9 RATIO (10-20) L 01/31/25 05:28 Glucose 120 mg/dL (70-99) H 01/31/25 05:28 Microbiology Microbiology: Microbiology 01/31/25 04:37 Mucosa - Nasopharyngeal Respiratory Panel (PCR) - Final 01/31/25 05:28 Nasal Secretion MRSA (PCR) - Final 01/31/25 01:50 Mucosa - Nose SARS-CoV-2, Influenza & RSV (PCR) - Final Dosing Weight Weight used for dosin.3 kg Estimated Creatinine Clearance Estimated Creatinine Clearance: 16.2 Goal Trough Goal Trough: 15-20 mcg/mL Pharmacy Plan for Drug Dosing Pharmacy Plan for Drug Dosing: Pharmacy Service will continue to monitor and adjust dosing as required. NEW START IV VANCOMYCIN Consulting Physician: Dr. Garcia Indication: PNA Goal Trough: 15-20 SrCr: 7.2 CrCl: 16.2 Comments: HD plans for M//, next level Sunday with AM labs Vancomycin Dose: 500 mg after dialysis Pending Level: 02/02/25 @ 0600 Date/Time Labs Ordered Labs to be done on [date and time ordered]: 02/02/25 @ 0600
[2025-01-31] MEDS: Vancomycin HCl 500 MG in 0.9% Normal Saline (100mL Bag) 100 ML 100 MG IV (17:27)
--- NOTE | 2025-02-01 00:03 | PN_ITS ---
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 Patient presented to hospital on 01/31/2025 with dyspnea. Patient was admitted to the hospital for treatment of acute hypoxic respiratory failure attributed to pneumonia. Nephrology was asked to see the patient because of ESRD and for dialysis management. Patient dialyzes at [facility] on MWF schedule. Patient did attend dialysis yesterday on 01/30/2025, but she did not complete the entire prescribed treatment. We arranged for dialysis today to remove more fluid. Patient also has hyperkalemia which was treated medically earlier. We will also dialyze patient for hyperkalemia today using 2K dialysate. Full consultative report to follow.
[2025-02-01 02:46] VITALS: BMI 24.6
[2025-02-01 03:08] VITALS: BP 154/105; PULSE 66; RESP 16; TEMP 36.6; O2SAT 98
[2025-02-01 04:45] LABS: Hematocrit 32.1 % (40-54); Hemoglobin 9.6 g/dL (13.0-16.5); Immature Granulocytes Count 0.020 X10^3/uL (0.0-0.0); Mean Corp Hgb Conc 29.9 g/dL (32-36); Mean Corpuscular Volume 98.8 fL (80-94); Mean Platelet Vol. 9.4 fl (6.2-12.0); NRBC Flagged by Analyzer 0 % (0-5); POSITIVE MORPHOLOGY YES; Platelet Count 223 K/mm3 (150-450); RBC Distribution Width CV 19.0 % (11.6-14.6); RBC Distribution Width SD 68.5 fl (35.1-43.9); Red Blood Count 3.25 M/mm3 (4.6-6.2); White Blood Count 6.6 K/mm3 (4.4-11.0)
[2025-02-01 04:48] LABS: Differential Indicated SCAN CRITERIA MET
[2025-02-01] MEDS: Piperacil/Tazobactam 3.375 GM in 0.9% Normal Saline (50mL MB+) 50 ML IV ×3 (05:19→22:24)
[2025-02-01 05:35] LABS: Anisocytosis 2+; Differential Comment SCANNED; Polychromasia 1+
[2025-02-01 05:54] LABS: Anion Gap 12 (5-15); BUN 31 mg/dL (4-19); BUN/Creat Ratio 4.3 RATIO (10-20); Calcium,Total 10.1 mg/dL (7.6-11.0); Carbon Dioxide 26.8 mmol/L (21.0-32.0); Chloride 97 mmol/L (98-108); Estimated Creatinine Clearance 16.08 ml/min (50-250); Glucose 86 mg/dL (70-99); Potassium 6.5 mmol/L (3.3-5.1)
--- NOTE | 2025-02-01 05:58 | PCM.HOSP.N ---
Hospitalist Note AM K 6.5, will initiate hyperkalemic intervention and repeat BMP in 2 hours.
[2025-02-01] MEDS: Insulin Lispro 10 UNIT in Syringe 0 ML 6 UNIT IV (06:28)
[2025-02-01] MEDS: 0.9% Saline Lock 10 ML Syringe IV ×3 (06:31→20:55)
[2025-02-01 06:37] VITALS: PULSE 78; RESP 18; O2SAT 96
[2025-02-01] MEDS: Albuterol *CONC* 2.5mg/0.5mL VIAL.NEB. 10 MG INHALATION (06:37)
--- NOTE | 2025-02-01 06:37 | CPS ---
Pt is using 2lpm O2 prn.
[2025-02-01 08:07] VITALS: BP 164/107; PULSE 78; RESP 16; O2SAT 92
[2025-02-01] MEDS: SEVELAMER CARBONATE 800 MG TABLET 2400 MG PO ×3 (08:09→16:26)
--- NOTE | 2025-02-01 08:09 | CON.PCM.RE_ITS ---
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 Patient presented to hospital on 01/31/2025 with dyspnea. Patient was admitted to the hospital for treatment of acute hypoxic respiratory failure attributed to pneumonia. Nephrology was asked to see the patient because of ESRD and for dialysis management. ESRD. Patient usually dialyzes on MWF schedule at [facility]. Patient did attend dialysis on 01/30/2025 prior to admission, but he cut his treatment time short. Patient presented to hospital on 01/31/2025 with dyspnea. Chest imaging showed large pleural effusion. He was also hyperkalemic. Therefore, patient was dialyzed again on 01/31/2025. There is no need for dialysis today. Volume appears to be controlled. Potassium level is also improved. Next dialysis will be scheduled for 02/02/2025. Hypertension. BP is not yet optimally controlled. Patient is on carvedilol 25 mg twice daily, amlodipine 5 mg daily, and as needed hydralazine IV. Patient is also supposed to be on losartan 100 mg daily. He is currently not on losartan possibly because of hyperkalemia. Will increase amlodipine to 10 mg/day. Restart losartan if potassium levels less than 5.0 mmol/L. Hyperkalemia. Potassium level was as high as 7.0 mmol/L on 01/31/2025. Suspect hyperkalemia is due to dietary indiscretion and nonadherence to prescribed hemodialysis treatment. Patient did cut his dialysis short on 01/30/2025 prior to admission. We dialyze patient again yesterday on 01/31/2025 with 2K dialysate. Potassium level is better at 5.4 mmol/L today. Will dialyze patient again tomorrow on 02/02/2025 with 2K dialysate. Continue to limit potassium intake in his diet to 2 g/day or less. Will continue to monitor potassium levels. 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 Patient presented to hospital on 01/31/2025 with dyspnea. Patient was admitted to the hospital for treatment of acute hypoxic respiratory failure attributed to pneumonia. Nephrology was asked to see the patient because of ESRD and for dialysis management. Patient dialyzes at [facility] on MWF schedule. Patient did attend dialysis yesterday on 01/30/2025, but he did not complete the entire prescribed treatment. Patient continued to have dyspnea with chest x-ray and CT chest suggesting pleural effusion. Therefore, we arranged for dialysis on 01/31/2025 to remove more fluid. Patient also has hyperkalemia which would also be addressed with hemodialysis. [facility] Medical History (Updated 02/01/25 @ 08:[address] Shani Peterson MD) Hypertension ESRD (end stage renal disease) Chronic anemia Former smoker Dialysis patient Arteriovenous fistula of right upper extremity Alports syndrome Home Medications Medication Instructions Recorded Last Taken Type cinacalcet 30 mg tablet 30 mg PO QPM 02/11/24 Unknow n History losartan 100 mg tablet 100 mg PO DAILY blood pressu re 02/11/24 10/12/24 History sevelamer carbonate 800 mg tablet 2,400 mg PO TID supp lement 02/11/24 10/12/24 History vit B,C-folic ac 800 mcg-zinc 12.5 1 tab PO DAILY josette min 02/11/24 10/12/24 History mg-selen-D3 2,000 unit-vit E tablet (RenaPlex-D) amlodipine 5 mg tablet 5 mg PO DAILY #30 tabs 10/14 Unknown Rx carvedilol 25 mg tablet 25 mg PO BIDCM #60 tabs 09/17 12/11 Unknown Rx Allergy/AdvReac Type Severity Reaction Status Date / Time No Known Allergies Allergy Verified 10/13/24 08:14 Family History Mother Kidney disease Cancer Father CVA (cerebral vascular accident) Hypertension Surgical History S/P arteriovenous (AV) fistula creation Social History household members: family housing: house Smoking Status: Former smoker alcohol intake: never substance use type: does not use ROS ROS Narrative ROS is as HPI, otherwise noncontributory Physical Exam Narrative General: Alert and oriented x3, NAD. HEENT: Normocephalic, atraumatic. Mucous membrane moist without erythema. PERRLA, EOMI. Hearing is intact. Neck: Supple, no JVD. Trachea is midline. No thyromegaly or lymphadenopathy. Cardiovascular: Normal S1, S2. No rubs, murmurs, or gallops. Respiratory: Lung sounds diminished at bases especially on the left side. No wheezing. Abdomen: Normal bowel sounds, soft, nontender, no guarding or rebound, no organomegaly. Extremities: No clubbing, cyanosis, or edema. Musculoskeletal: Full passive range of motion, no joint swelling. Psychiatric: Normal mood and affect. Skin: Warm and dry. There is petechial rash diffusely throughout his arm bilaterally. Neurologic: Cranial nerve II to XII are grossly intact. No focal neurologic deficits. Lab / Micro Data 02/01/25 04:26 02/01/25 08:00 Labs: Laboratory Results - last 24 hr 01/31/25 06:48: POC Glucose 145 H 01/31/25 11:14: POC Glucose 75 01/31/25 17:23: POC Glucose 80 01/31/25 21:13: POC Glucose 116 H 02/01/25 04:26: WBC 6.6, RBC 3.25 L, Hgb 9.6 L, Hct 32.1 L, MCV 98.8 H, MCH 29.5, MCHC 29.9 L, RDW Std Deviation 68.5 H, RDW Coeff of Mono 19.0 H, Plt Count 223, MPV 9.4, Immature Gran % (Auto) 0.300, Neut % (Auto) 58.6, Lymph % (Auto) 26.4, [place] % (Auto) 5.9, Eos % (Auto) 8.2 H, Baso % (Auto) 0.6, Absolute Neuts (auto) 3.8, Absolute Lymphs (auto) 1.73, Nucleated RBC % 0, Differential Comment SCANNED, Platelet Estimate ADEQUATE, Polychromasia 1+, Anisocytosis 2+, Sodium 136, Potassium 6.5 H*, Chloride 97 L, Carbon Dioxide 26.8, Anion Gap 12, BUN 31 H, Creatinine 7.25 H, Estim Creat Clear Calc 16.08 L, Est GFR (MDRD) Non-Af 10 L , BUN/Creatinine Ratio 4.3 L, Glucose 86, Calcium 10.1 02/01/25 06:25: POC Glucose 90 02/01/25 07:38: POC Glucose 49 L Micro: Microbiology 01/31/25 04:37 Mucosa - Nasopharyngeal Respiratory Panel (PCR) - Final 01/31/25 05:28 Nasal Secretion MRSA (PCR) - Final
[2025-02-01 08:42] LABS: Anion Gap 13 (5-15); BUN 31 mg/dL (4-19); BUN/Creat Ratio 4.2 RATIO (10-20); Calcium,Total 10.3 mg/dL (7.6-11.0); Carbon Dioxide 27.1 mmol/L (21.0-32.0); Chloride 99 mmol/L (98-108); Estimated Creatinine Clearance 15.69 ml/min (50-250); Glucose 51 mg/dL (70-99); Potassium 5.4 mmol/L (3.3-5.1)
[2025-02-01 09:10] VITALS: BP 164/107; PULSE 78; RESP 16; TEMP 36.7; O2SAT 96
--- NOTE | 2025-02-01 11:07 | PN_ITS ---
Subjective Subjective Patient seen and examined today. He was transferred to the PCU yesterday. He is feeling much better. He was eating breakfast. He is on 2 L of oxygen. The potassium was 6.5 this morning and received Kayexalate. Review of systems otherwise negative. Objective Data Objective Data Vital Signs: Vital Signs Temp Pulse Resp BP Pulse Ox O2 Del Method O2 Flow Rate 97.9 F 78 16 164/107 H 92 Nasal Cannula 2 02/01/25 03:08 02/01/25 08:07 02/01/25 08:07 02/01/25 08:07 02/01/25 08:07 02/01/25 08:07 02/01/25 08:07 Oxygen Flow Rate (L/min) 2 Oxygen Delivery Method Nasal Cannula Weight: 171 lb 11.841 oz Body Mass Index (BMI) 24.6 Intake & Output: Intake and Output for Last 24 Hours 01/30/25 01/31/25 02/01/25 23:59 23:59 23:59 Intake Total 3066.67 / 3186.67 720 / 720 Output Total 6230 / 6230 Balance -3163.33 / -3043.33 720 / 720 Lab / Micro Data 02/01/25 04:26 02/01/25 08:00 Labs: Laboratory Results - last 24 hr 01/31/25 11:14: POC Glucose 75 01/31/25 17:23: POC Glucose 80 01/31/25 21:13: POC Glucose 116 H 02/01/25 04:26: WBC 6.6, RBC 3.25 L, Hgb 9.6 L, Hct 32.1 L, MCV 98.8 H, MCH 29.5, MCHC 29.9 L, RDW Std Deviation 68.5 H, RDW Coeff of Mono 19.0 H, Plt Count 223, MPV 9.4, Immature Gran % (Auto) 0.300, Neut % (Auto) 58.6, Lymph % (Auto) 26.4, [place] % (Auto) 5.9, Eos % (Auto) 8.2 H, Baso % (Auto) 0.6, Absolute Neuts (auto) 3.8, Absolute Lymphs (auto) 1.73, Nucleated RBC % 0, Differential Comment SCANNED, Platelet Estimate ADEQUATE, Polychromasia 1+, Anisocytosis 2+, Sodium 136, Potassium 6.5 H*, Chloride 97 L, Carbon Dioxide 26.8, Anion Gap 12, BUN 31 H, Creatinine 7.25 H, Estim Creat Clear Calc 16.08 L, Est GFR (MDRD) Non-Af 10 L , BUN/Creatinine Ratio 4.3 L, Glucose 86, Calcium 10.1 02/01/25 06:25: POC Glucose 90 02/01/25 07:38: POC Glucose 49 L 02/01/25 08:00: Sodium 139, Potassium 5.4 H, Chloride 99, Carbon Dioxide 27.1, Anion Gap 13, BUN 31 H, Creatinine 7.43 H*, Estim Creat Clear Calc 15.69 L, Est GFR (MDRD) Non-Af 10 L, BUN/Creatinine Ratio 4.2 L, Glucose 51 L, Calcium 10.3 02/01/25 08:04: POC Glucose 53 L 02/01/25 08:55: POC Glucose 71 L Micro: Microbiology 01/31/25 04:37 Mucosa - Nasopharyngeal Respiratory Panel (PCR) - Final 01/31/25 05:28 Nasal Secretion MRSA (PCR) - Final 01/31/25 01:50 Mucosa - Nose SARS-CoV-2, Influenza & RSV (PCR) - Final Physical Exam Const Constitutional Narrative: lethargic, though wakes up in response to voice call HEENT normocephalic, head/scalp atraumatic, moist oral mucous membranes and oropharynx normal Eyes EOMs intact bilaterally Neck supple and no JVD Lymph Lymphatic: no lymphedema noted Resp Resp Narrative: moderately diminished breath sounds bibasally, no wheezes or crackles. On room air. Cardio regular rate, regular rhythm, S1 normal heart sound and S2 normal heart sound GI normal to inspection, nondistended, normoactive bowel sounds, soft to palpation and non-tender Extremity no clubbing, cyanosis or edema and no calf tenderness Extremity Narrative: AV fistula in RUE, undergoing dialysis. General Extremity: no tenderness to palpation of joints or extremities Skin Skin Narrative: Has a papular rash over his left upper extremity which he states is chronic. Neuro no focal motor deficits Motor Exam: general weakness Psych thought process normal, cooperative and affect normal Appearance: appropriate Assessment & Plan Assessment/Plan (1) Acute hypoxic respiratory failure: (2) Alport syndrome: (3) Hyperkalemia: (4) Right lower lobe pneumonia: (5) Sepsis: PLAN: Plan #Right lower lobe pneumonia * Was admitted with a complaint of shortness of breath and generalized malaise and bodyaches. Chest x-ray showed right lower lobe consolidation * On IV vancomycin and Zosyn as well as doxycycline. Respiratory panel negative. Urine for strep and Legionella negative. Cultures pending. * Titrate oxygen as needed to maintain saturation above 90%. Breathing treatment bronchodilators. * Critical care on board. 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 Potassium is markedly elevated. Usually has dialysis Wednesdays and Fridays. Hyperkalemia is now resolved and potassium is down to 4.4 * had dialysis yesterday. * K was 6.5 yesterday. Received kayexalate this morning and K is now down to 5.4. * on cinacalcet and sevelamer * #Anemia: This is chronic. Likely due to ESRD. Hemoglobin was 9.5 on admission and is now down to 8.7. Will monitor closely and transfuse to maintain hemoglobin above 7. #Hypertension: On Coreg and amlodipine. IV hydralazine as needed #DVT prophylaxis: Heparin Charges/Coding Visit Charges Inpatient E&M: 87713 Subs Hosp L2
[2025-02-01 16:24] VITALS: BP 157/119; PULSE 88; RESP 16; TEMP 36.9; O2SAT 99
[2025-02-01 20:51] VITALS: BP 150/106; PULSE 86; RESP 16; TEMP 36.8; O2SAT 97
[2025-02-02] VITALS (16 sets, daily range): BP systolic 150–181; BP diastolic 100–127; PULSE 79–93; RESP 14–18; TEMP 36.6–36.9; O2SAT 93–100; BMI 24.8; BMI 24.2; BMI 22.8
[2025-02-02 06:06] LABS: Hematocrit 31.2 % (40-54); Hemoglobin 9.5 g/dL (13.0-16.5); Immature Granulocytes Count 0.030 X10^3/uL (0.0-0.0); Mean Corp Hgb Conc 30.4 g/dL (32-36); Mean Corpuscular Volume 97.5 fL (80-94); Mean Platelet Vol. 9.0 fl (6.2-12.0); NRBC Flagged by Analyzer 0 % (0-5); POSITIVE MORPHOLOGY YES; Platelet Count 196 K/mm3 (150-450); RBC Distribution Width CV 18.8 % (11.6-14.6); RBC Distribution Width SD 66.8 fl (35.1-43.9); Red Blood Count 3.20 M/mm3 (4.6-6.2); White Blood Count 6.5 K/mm3 (4.4-11.0)
[2025-02-02 06:07] LABS: Differential Indicated SCAN CRITERIA MET
[2025-02-02] MEDS: Piperacil/Tazobactam 3.375 GM in 0.9% Normal Saline (50mL MB+) 50 ML IV (06:19)
[2025-02-02 06:34] LABS: Vancomycin, Trough Level 30.4 ug/mL (5.0-15.0)
[2025-02-02 06:38] LABS: Anion Gap 14 (5-15); BUN 38 mg/dL (4-19); BUN/Creat Ratio 4.3 RATIO (10-20); Calcium,Total 9.4 mg/dL (7.6-11.0); Carbon Dioxide 24.6 mmol/L (21.0-32.0); Chloride 101 mmol/L (98-108); Estimated Creatinine Clearance 13.13 ml/min (50-250); Glucose 122 mg/dL (70-99); Potassium 5.5 mmol/L (3.3-5.1)
[2025-02-02 06:47] LABS: Acanthocytes RARE; Anisocytosis 3+; Differential Comment SCANNED; Macrocytosis 1+; Microcytosis 1+; Polychromasia 1+; Target Cells RARE; Tear Drop Cell RARE
[2025-02-02 06:48] LABS: Bite Cell RARE
--- NOTE | 2025-02-02 07:35 | PCM.RX.CS ---
Consult Antibiotic Management Pharmacy has been consulted to manage selected antibiotic: Vancomycin Type of Intervention Type of Consult: Follow-up Labs Labs: Sodium 139 mmol/L (133-145) 02/02/25 05:54 Potassium 5.5 mmol/L (3.3-5.1) H 02/02/25 05:54 Chloride 101 mmol/L (98-108) 02/02/25 05:54 Carbon Dioxide 24.6 mmol/L (21.0-32.0) 02/02/25 05:54 Anion Gap 14 (5-15) 02/02/25 05:54 BUN 38 mg/dL (4-19) H 02/02/25 05:54 Creatinine 8.88 mg/dL (0.70-1.20) H* 02/02/25 05:54 Est GFR (MDRD) Non-Af 8 (>60) L 02/02/25 05:54 BUN/Creatinine Ratio 4.3 RATIO (10-20) L 02/02/25 05:54 Glucose 122 mg/dL (70-99) H 02/02/25 05:54 Vancomycin Trough 30.4 ug/mL (5.0-15.0) H 02/02/25 05:54 Microbiology Microbiology: Microbiology 01/31/25 04:37 Mucosa - Nasopharyngeal Respiratory Panel (PCR) - Final 01/31/25 05:28 Nasal Secretion MRSA (PCR) - Final 01/31/25 01:50 Mucosa - Nose SARS-CoV-2, Influenza & RSV (PCR) - Final Goal Trough Goal Trough: 15-20 mcg/mL Pharmacy Plan for Drug Dosing Pharmacy Plan for Drug Dosing: VANCOMYCIN LEVEL RECEIVED Current Vancomycin Dose: Dosing per HD Number of Doses Received: 2 (initial dose + 1 post-HD dose) Vancomycin Level: 30.4 Renal Function: on HD- normal HD schedule M/W/F Renal Function Trend: n/a Lab/Micro: pending Vancomycin Plan/Comments: The patient had a trough drawn which resulted in a value of 30.4 (goal 15-20). Will hold off on vancomycin dose today post-HD. Will reassess if dosing is needed pre-HD session on 02/04/25. Pending Level: *RANDOM* pre-HD level 02/04/25 @0600 Pharmacy Service will continue to monitor and adjust dosing as required.
[2025-02-02] MEDS: Heparin Injection (Vial) 5,000 UNIT/ML VIAL 5000 UNIT IV (08:47)
[2025-02-02] MEDS: PureFlow B 2K Dialysis Soln 1 BAG 6 BAG PF (08:54)
[2025-02-02] MEDS: 0.9% Normal Saline 1,000 ML IV.SOLN. 1000 ML OPERA.SITE (08:54)
--- NOTE | 2025-02-02 10:12 | PN.RENAL_ITS ---
Subjective Subjective Seen and examined during dialysis today. Patient states tolerating dialysis well. No recent cramping. Objective Data Objective Data Vital Signs: Vital Signs Temp Pulse Resp BP Pulse Ox O2 Del Method O2 Flow Rate 98.4 F 93 14 158/120 H 100 Room Air 2 02/02/25 08:15 02/02/25 10:00 02/02/25 10:00 02/02/25 10:00 02/02/25 10:00 02/02/25 10:00 02/01/25 08:07 Oxygen Flow Rate (L/min) 2 Oxygen Delivery Method Room Air Weight: 76.5 kg Body Mass Index (BMI) 24.2 Intake & Output: Intake and Output for Last 24 Hours 01/31/25 02/01/25 02/02/25 23:59 23:59 23:59 Intake Total 3066.67 / 3186.67 2070 / 2550 630 / 630 Output Total 6230 / 6230 Balance -3163.33 / -3043.33 2070 / 2550 630 / 630 Lab / Micro Data 02/02/25 05:54 02/02/25 05:54 Labs: Laboratory Results - last 24 hr 02/01/25 11:52: POC Glucose 121 H 02/01/25 16:30: POC Glucose 128 H 02/02/25 05:54: WBC 6.5, RBC 3.20 L, Hgb 9.5 L, Hct 31.2 L, MCV 97.5 H, MCH 29.7, MCHC 30.4 L, RDW Std Deviation 66.8 H, RDW Coeff of Mono 18.8 H, Plt Count 196, MPV 9.0, Immature Gran % (Auto) 0.500, Neut % (Auto) 57.2, Lymph % (Auto) 24.3, [place] % (Auto) 6.0, Eos % (Auto) 11.4 H, Baso % (Auto) 0.6, Absolute Neuts (auto) 3.7, Absolute Lymphs (auto) 1.57, Nucleated RBC % 0, Differential Comment SCANNED, Platelet Estimate ADEQUATE, Plt Morphology Comment LARGE, Polychromasia 1+, Anisocytosis 3+, Microcytosis 1+, Macrocytosis 1+, Target Cells RARE, Tear Drop Cells RARE, Ovalocytes 1+, Bite Cells RARE, Acanthocytes (Spur) RARE, Sodium 139, Potassium 5.5 H, Chloride 101, Carbon Dioxide 24.6, Anion Gap 14, B UN 38 H, Creatinine 8.88 H*, Estim Creat Clear Calc 13.13 L, Est GFR (MDRD) Non- Af 8 L, BUN/Creatinine Ratio 4.3 L, Glucose 122 H, Calcium 9.4, Vancomycin Trough 30.4 H Micro: Microbiology 01/31/25 04:08 Blood Culture (Wb) - Anticubital Left Blood Culture - Preliminary No growth in 48 hours. 01/31/25 04:40 Blood Culture (Wb) - Anticubital Left Blood Culture - Preliminary No growth in 48 hours. 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 Patient presented to hospital on 01/31/2025 with dyspnea. Patient was admitted to the hospital for treatment of acute hypoxic respiratory failure attributed to pneumonia. Nephrology was asked to see the patient because of ESRD and for dialysis management. - ESRD on hemodialysis Sunday at [facility]. Patient undergoing hemodialysis today and attempting around 3.5 L fluid removal on 2K bath. Reinforced importance of renal/low potassium diet. Blood pressure is elevated and should improve with fluid removal with dialysis. Patient currently on amlodipine and carvedilol. Losartan on hold due to hyperkalemia. Patient states forgetful with blood pressure medications at home, discussed with patient option of clonidine patch but he declines states patch irritating to his skin. He states with trying to do better with remembering taking medications. Assessment and plan reviewed with Dr. Higuera.
--- NOTE | 2025-02-02 14:17 | DCINST_ITS ---
Discharge Instructions DC O2, CPAP, BIPAP needs Home O2 Discharge instructions: No Dressing / Incision Discharge Activity: Return to Normal Activity Follow Up Care Test Results: Test results from this visit will be discussed in further detail at your follow- up appointment, if applicable. Discharge Plan Admission Admit Date/Time: 01/31/25 03:52 Primary Reason for Your Visit: Shortness of breath Attending Provider: Loly Guevara Primary Care Provider: Care Physician,No Primary Consulting Providers: Beverly Montiel; Tobin Cadena; Kody Gross; Finn Gifford; Alo Basilio; Hung Chen; Domenica Anderson; Vincenzo De Jesus; Yuliya Wilkes; Lele Gavin; Tana Cruz; Mir Peterson; Ed Rios; Mary Torres; Sam Gillespie; Theodore Camejo; Andrew Dinh; Lindsay Grant; Tonia Walker; Khushboo Sharma; Sruthi Vee; Jayro Shepard; Dennis Beyer; Joy Bland; Bindu Rios; Donis Sen; Chas Fairbanks; Joy Ardon; Swapnil Forde; Dirk Harvey; Gunner Bustillo; Mini Ag; Faith,Matt; Lazaro,Frankie; Drake Darling; Connor Gandara; Jessica Garrison; Rasheeda Price; Ming Beltran; Kinga,Kel; Yair Grimm; Bony Serra; Michael Main; Lucy Garcia Instructions Patient Instructions: ED Pneumonia (Adult) Additional Instructions / Restrictions: DISCHARGE INSTRUCTIONS PLEASE READ *Please take this with you to your next doctors appointment* -You will be discharged on levofloxacin 500 mg, due to your dialysis you were given a dose before you were discharged and you will need to take 1 dose on 02/04 and your last dose 02/06, please take these doses after your dialysis on those days -Your amlodipine has been increased to 10 mg daily and you will continue your other blood pressure medications - Is important to adhere to a renal/low potassium diet - Please continue your dialysis as previously scheduled, if you have any questions please contact your dispensing optician apprentice -Please call your primary care provider's office upon discharge to schedule a hospital follow up within 1 week. -If you do not have a primary care physician of list of local primary care physicians can be provided for you upon discharge. Please ask for this list prior to discharge -For any concerning signs or symptoms please call 911 or proceed to the nearest emergency department Discharge Orders/Prescriptions Prescriptions: New amlodipine 10 mg Tablet 10 mg PO DAILY 30 Days Qty: 30 0RF levofloxacin 500 mg tablet 500 mg PO Q48H Qty: 2 0RF Rx Instructions: you will need to take 1 dose on 02/04 and your last dose 02/06, please take these doses after your dialysis on those days Continued carvedilol 25 mg Tablet 25 mg PO BIDCM Qty: 60 1RF losartan 100 mg tablet 100 mg PO DAILY RenaPlex-D 800 mcg-12.5 mg -2,000 unit tablet 1 tab PO DAILY cinacalcet 30 mg tablet 30 mg PO QPM sevelamer carbonate 800 mg tablet 2,400 mg PO TID Discontinued amlodipine 5 mg Tablet 5 mg PO DAILY Qty: 30 1RF Referrals / Follow Up: Windy Higuera MD [Med Staff - Consulting, Nephrology] Referral Note: Continue your dialysis as previously scheduled Care Physician,No Primary [Primary Care Provider, Medical] Referral Note: -If you do not have a primary care physician of list of local primary care physicians can be provided for you upon discharge. Please ask for this list prior to discharge Disposition Disposition (needs filled in before D/C Order can be placed): Home, Self Care
--- NOTE | 2025-02-02 14:45 | DS.PCM_ITS ---
Providers Date of Admission: 01/31/25 Date of Discharge: 02/02/25 Primary Care Physician: Emma Primary Care Phys Consultations 01/31/25 05:20 Consult: Construction Sales Representative / Pulmonary Medicine Routine Consulting Provider: Intensivists/Pulmonary Med Reason for Consult: Hyperkalemia, PNA EMERGENT Consult: No MD Notified: Yes Date Notified: 01/31/25 Time Notified: 05:23 Method of Notification: Text Consult: Nephrology Routine Consulting Provider: Windy Higuera Reason for Consult: ESRD on HD, Hyperkalemia with need for HD today. EMERGENT Consult: No MD Notified: No Date Notified: 01/31/25 Time Notified: 03:53 Reason For Visit: PNA, HYPERKALEMIA Diagnosis Discharge Diagnosis (1) Pneumonia: Status: Acute Code(s): J18.9 - Pneumonia, unspecified organism (2) ESRD (end stage renal disease) on dialysis: Status: Acute Code(s): N18.6 - End stage renal disease; Z99.2 - Dependence on renal dialysis (3) Hypertension: Status: Chronic Code(s): I10 - Essential (primary) hypertension (4) Hyperkalemia: Status: Acute Code(s): E87.5 - Hyperkalemia Plan #RLL pneumonia #hyperkalemia #ESRD on HD #Chronic anemia #Uncontrolled HTN #Hypoxemia 2/2 pneumonia Medications at Discharge Home Medications cinacalcet 30 mg tablet 30 mg PO QPM 02/11/24 losartan 100 mg tablet 100 mg PO DAILY blood pressure 02/11/24 sevelamer carbonate 800 mg tablet 2,400 mg PO TID supplement 02/11/24 vit B,C-folic ac 800 mcg-zinc 12.5 mg-selen-D3 2,000 unit-vit E tablet (RenaPlex-D) 1 tab PO DAILY vitamin 02/11/24 carvedilol 25 mg tablet 25 mg PO BIDCM #60 tabs 10/14/24 amlodipine 10 mg tablet 10 mg PO DAILY 30 days #30 tabs 02/02/25 levofloxacin 500 mg tablet 500 mg PO Q48H #2 tabs 02/02/25 Hospital Course Summary of Care Provided Minutes Spent on Discharge: 31 Hospital Course: 24-year-old male history of end-stage renal disease on hemodialysis Sunday secondary to [place] syndrome, hypertension presented [facility] ED 01/31/2025 with worsened dyspnea, fatigue, malaise, and body aches over several days. Chest x-ray in the ED demonstrated newly appreciated right lower lobe consolidation concerning for pneumonia. He was also found to have a potassium of 7. Patient started on antibiotics and K lowering cocktail given and nephrology consulted. Patient dialyzed 01/31 and again 02/02. He is feeling much better, potassium 5.5 in the AM on 02/02 and patient dialyzed. Patient able to be weaned off of O2 with improvement in his breathing with antibiotics and dialysis. Did have increase in amlodipine by nephrology due to continued hypertension, and it was revealed that he does forget to take his medications at times. Clonidine patch was discussed with patient by nephrology team however he did not want to try this due to possible skin irritation and reported he would try to improve his compliance with his medications. On day of discharge no new or acute complaints, patient feeling much better and is comfortable with discharging home and continuing outpatient dialysis. Saturating 100% on room air. Discharge instructions as follows: -You will be discharged on levofloxacin 500 mg, due to your dialysis you were given a dose before you were discharged and you will need to take 1 dose on 02/04 and your last dose 02/06, please take these doses after your dialysis on those days -Your amlodipine has been increased to 10 mg daily and you will continue your other blood pressure medications - Is important to adhere to a renal/low potassium diet - Please continue your dialysis as previously scheduled, if you have any questions please contact your assistant brand manager -Please call your primary care provider's office upon discharge to schedule a hospital follow up within 1 week. -If you do not have a primary care physician of list of local primary care physicians can be provided for you upon discharge. Please ask for this list prior to discharge -For any concerning signs or symptoms please call 911 or proceed to the nearest emergency department Physical Exam Narrative General: Alert, oriented, no apparent distress HEENT: Atraumatic, normocephalic Eyes: Anicteric, normal conjunctiva, extraocular movements grossly intact Neck: Supple Respiratory: No overt wheezes or rhonchi, normal respiratory effort Cardiovascular: Regular rate and rhythm GI: Soft, nontender, nondistended Extremities: No edema Musculoskeletal: Moving all extremities Neuro: No overt focal neurological deficits Skin: No rashes appreciated Psych: Cooperative Weight / BMI Weight Weight: 72.3 kg Body Mass Index (BMI) 22.8 ABG / Lab / Microbiology Data 02/02/25 05:54 02/02/25 05:54 Laboratory: Laboratory Results - last 24 hr 02/01/25 16:30: POC Glucose 128 H 02/02/25 05:54: WBC 6.5, RBC 3.20 L, Hgb 9.5 L, Hct 31.2 L, MCV 97.5 H, MCH 29.7, MCHC 30.4 L, RDW Std Deviation 66.8 H, RDW Coeff of [place] 18.8 H, Plt Count 196, MPV 9.0, Immature Gran % (Auto) 0.500, Neut % (Auto) 57.2, Lymph % (Auto) 24.3, [place] % (Auto) 6.0, Eos % (Auto) 11.4 H, Baso % (Auto) 0.6, Absolute Neuts (auto) 3.7, Absolute Lymphs (auto) 1.57, Nucleated RBC % 0, Differential Comment SCANNED, Platelet Estimate ADEQUATE, Plt Morphology Comment LARGE, Polychromasia 1+, Anisocytosis 3+, Microcytosis 1+, Macrocytosis 1+, Target Cells RARE, Tear Drop Cells RARE, Ovalocytes 1+, Bite Cells RARE, Acanthocytes (Spur) RARE, Sodium 139, Potassium 5.5 H, Chloride 101, Carbon Dioxide 24.6, Anion Gap 14, B UN 38 H, Creatinine 8.88 H*, Estim Creat Clear Calc 13.13 L, Est GFR (MDRD) Non- Af 8 L, BUN/Creatinine Ratio 4.3 L, Glucose 122 H, Calcium 9.4, Vancomycin Trough 30.4 H 02/02/25 11:55: POC Glucose 103 Microbiology: Microbiology 01/31/25 04:08 Blood Culture (Wb) - Anticubital Left Blood Culture - Preliminary No growth in 48 hours. 01/31/25 04:40 Blood Culture (Wb) - Anticubital Left Blood Culture - Preliminary No growth in 48 hours. 01/31/25 04:37 Mucosa - Nasopharyngeal Respiratory Panel (PCR) - Final 01/31/25 05:28 Nasal Secretion MRSA (PCR) - Final 01/31/25 01:50 Mucosa - Nose SARS-CoV-2, Influenza & RSV (PCR) - Final D/C Instructions DC O2, CPAP, BIPAP Needs Home O2 Discharge instructions: No Meaningful Use Info Meaningful Use Meaningful Use Diagnoses (Choose all that apply): None applicable Discharge Plan Admission Admit Date/Time: 01/31/25 03:52 Primary Reason for Your Visit: Shortness of breath Attending Provider: Loly Guevara Primary Care Provider: Care Physician,No Primary Consulting Providers: Beverly Montiel; Tobin Cadena; Kody Gross; Finn Gifford; Alo Basilio; Hung Chen; Domenica Anderson; Vincenzo De Jesus; Yuliya Wilkes; Lele Gavin; Tana Cruz; Mir Peterson; Ed Rios; Mary Torres; Sam Gillespie; Theodore Camejo; Andrew Dinh; Lindsay Grant; Tonia Walker; Khushboo Sharma; Sruthi Vee; Jayro Shepard; Dennis Beyer; Joy Bland; Bindu Rios; Donis Sen; Chas Fairbanks; Joy Ardon; Swapnil Forde; Dirk Harvey; Gunner Bustillo; Mini Ag; Matt Cuevas; Lazaro,Frankie; Drake Darling; Connor Gandara; Jessica Garrison; Rasheeda Price; Ming Beltran; Kel Donato; Yair Grimm; Bony Serra; Michael Main; Lucy Garcia Instructions Patient Instructions: ED Pneumonia (Adult) Additional Instructions / Restrictions: DISCHARGE INSTRUCTIONS PLEASE READ *Please take this with you to your next doctors appointment* -You will be discharged on levofloxacin 500 mg, due to your dialysis you were given a dose before you were discharged and you will need to take 1 dose on 02/04 and your last dose 02/06, please take these doses after your dialysis on those days -Your amlodipine has been increased to 10 mg daily and you will continue your other blood pressure medications - Is important to adhere to a renal/low potassium diet - Please continue your dialysis as previously scheduled, if you have any questions please contact your assistant brand manager -Please call your primary care provider's office upon discharge to schedule a hospital follow up within 1 week. -If you do not have a primary care physician of list of local primary care physicians can be provided for you upon discharge. Please ask for this list prior to discharge -For any concerning signs or symptoms please call 911 or proceed to the nearest emergency department Discharge Orders/Prescriptions Prescriptions: New amlodipine 10 mg Tablet 10 mg PO DAILY 30 Days Qty: 30 0RF levofloxacin 500 mg tablet 500 mg PO Q48H Qty: 2 0RF Rx Instructions: you will need to take 1 dose on 02/04 and your last dose 02/06, please take these doses after your dialysis on those days Continued carvedilol 25 mg Tablet 25 mg PO BIDCM Qty: 60 1RF losartan 100 mg tablet 100 mg PO DAILY RenaPlex-D 800 mcg-12.5 mg -2,000 unit tablet 1 tab PO DAILY cinacalcet 30 mg tablet 30 mg PO QPM sevelamer carbonate 800 mg tablet 2,400 mg PO TID Discontinued amlodipine 5 mg Tablet 5 mg PO DAILY Qty: 30 1RF Referrals / Follow Up: Windy Higuera MD [Med Staff - Consulting, Nephrology] Referral Note: Continue your dialysis as previously scheduled Care Physician,No Primary [Primary Care Provider, Medical] Referral Note: -If you do not have a primary care physician of list of local primary care physicians can be provided for you upon discharge. Please ask for this list prior to discharge Disposition Disposition (needs filled in before D/C Order can be placed): Home, Self Care Charges/Coding Visit Charges Inpatient E&M: 35239 Disch Hosp >30min
--- NOTE | 2025-02-02 15:01 | CASEMGMT ---
Patient has order for discharge. RN CM in to discuss needs at discharge. Patient denies needs or help at discharge. Patient had no further questions or concerns. RN CM updated KC that patient was discharging and will return to outpatient HD on Sunday.
--- NOTE | 2025-02-02 15:10 | PHA.DC_ITS ---
Pharmacy [facility] Counseling Pharmacy Service has performed discharge medication reconciliation and counseling for this patient. 1. AMLODIPINE DOSE INCREASED TO 10MG 2. LEVOFLOXACIN 500MG PO Q48 X 2 DOSES The patient's discharge medication list was reviewed for discrepancies and discrepancies were resolved. The patient was counseled on the following discharge medications and changes in medications for homegoing were reviewed. The Reason for Use, instructions for use, and potential side effects were reviewed for all new medications. The patient's questions regarding all of their medications were answered. The patient was able to verbally demonstrate an understanding of their discharge medications. Patient counseled by pharmacy sales assistantDriss. Medications at Discharge Home Medications cinacalcet 30 mg tablet 30 mg PO QPM hormones 02/11/24 losartan 100 mg tablet 100 mg PO DAILY blood pressure 02/11/24 sevelamer carbonate 800 mg tablet 2,400 mg PO TID supplement 02/11/24 vit B,C-folic ac 800 mcg-zinc 12.5 mg-selen-D3 2,000 unit-vit E tablet (RenaPlex-D) 1 tab PO DAILY vitamin 02/11/24 carvedilol 25 mg tablet 25 mg PO BIDCM blood pressure #60 tabs 10/14/24 amlodipine 10 mg tablet 10 mg PO DAILY 30 days #30 tabs 02/02/25 levofloxacin 500 mg tablet 500 mg PO Q48H #2 tabs 02/02/25
== END 2025-02-02 15:28 | disposition home or self-care (01) | DRG 193 ==
LOC: ED 01:47 → ICU 03:59 → PCU 16:57
PROVIDERS: Student in an Organized Health Care Education/Training Program; Admitting Provider Family Medicine; Emergency Provider Specialist/Technologist Athletic Trainer; Visit Provider Internal Medicine
DX: J18.9 Pneumonia, unspecified organism (principal); N18.6 End stage renal disease; I12.0 Hypertensive chronic kidney disease with stage 5 chronic kidney disease or end stage renal disease; Q87.81 Alport syndrome; D63.1 Anemia in chronic kidney disease; E87.5 Hyperkalemia; Z99.2 Dependence on renal dialysis; Z87.891 Personal history of nicotine dependence; Z91.119 Patient's noncompliance with dietary regimen due to unspecified reason; Z79.899 Other long term (current) drug therapy
CPT/HCPCS: 36415; 71046; 71260; 80048; 80053; 80202; 82962; 83735; 84100; 85025; 87040; 87631; 87633; 87641; 90937; 93005; 94640; 94668; 99285; Q9967; A4216; G0257; J0612; J0696; J2405